=== PATIENT | female | born 1970 | race Caucasian/White ===

== ENCOUNTER → 2017-09-25 11:56 | Outpatient (CLI) | payer OTHER, SELFPAY ==
--- NOTE | 2017-09-25 12:00 | HPBI_ITS ---
MAMMOGRAPHY - BILATERAL SCREENING REASON FOR EXAM: Female, 46 years old. Routine annual screening examination. PERTINENT HISTORY: Non-contributory. TECHNIQUE: Digital bilateral breast emeterio (3D mammographic acquisition) in the CC and MLO projections. 2-D mediolateral oblique (MLO) and craniocaudad (CC) views of both breasts were obtained. CAD: Full Field Digital Mammography with Computer Added Detection was performed. COMPARISON: Comparison is made with prior study dated April 10, 2016 and October 26, 2014. FINDINGS: Breast Composition: There are scattered areas of fibroglandular density. There are no dominant masses or suspicious calcifications. Stable benign-appearing bilateral axillary lymph nodes. A tissue clip marker is seen in the deep mid medial portion of the left breast. No other significant abnormalities are identified. There has been no significant change since the prior study. HPBI/SCREENING MAMM (CAD), BILAT IMPRESSION: Stable bilateral screening mammogram. Yearly follow-up mammogram recommended. (A) ASSESSMENT CATEGORY: BIRADS Category 2: Benign. A letter regarding these results will be sent to the patient by the facility within 30 days. Approximately 10% of breast cancers are not detected by mammography. A normal mammogram should not delay biopsy of a clinically suspicious abnormality. [id number] Electronically Signed: Geoff Andrew MD at 13:48 EST Tel [phone], Service support ,
== END ==
PROVIDERS: Family Provider Nurse Practitioner; PCP Nurse Practitioner; Visit Provider Nurse Practitioner
DX: Z12.31 Encounter for screening mammogram for malignant neoplasm of breast (principal)
CPT/HCPCS: 77063; 77067

== ENCOUNTER → 2018-06-16 11:50 | Outpatient (CLI) | payer OTHER, SELFPAY ==
[2018-06-22 15:38] LABS: HPV Reflexed? NOT INDICATED
== END ==
PROVIDERS: Family Provider Nurse Practitioner; PCP Nurse Practitioner; Referring Provider Nurse Practitioner; Visit Provider Nurse Practitioner
DX: Z01.419 Encounter for gynecological examination (general) (routine) without abnormal findings (principal)
CPT/HCPCS: 88175; G0145

== ENCOUNTER → 2018-11-17 | Outpatient (CLI) | payer OTHER, SELFPAY ==
[2017-01-23 00:36] VITALS: BMI 28.8
--- NOTE | 2018-11-17 15:27 | RAD_ITS ---
STUDY: X-RAY - RIGHT SHOULDER REASON FOR EXAM: Female, 48 years old. Pain, no known injury. TECHNIQUE: 3 view(s) of the shoulder. COMPARISON: None. FINDINGS: Normal glenohumeral articulation. Normal acromioclavicular joint. Normal acromion. Normal humeral head and visualized proximal humerus. The soft tissue structures are unremarkable. Normal visualized pulmonary apex. RAD/Shoulder min 2 Views IMPRESSION: Normal x-ray examination of the shoulder. Recommendation: If internal derangement is clinically suspected, recommend evaluation with MRI. Electronically Signed: Conrado Grant MD at 16:17 EDT , Service support ,
== END | disposition home or self-care (01) ==
LOC: HPRAD 15:27
PROVIDERS: Family Provider Nurse Practitioner; PCP Nurse Practitioner; Referring Provider Orthopaedic Surgery; Visit Provider Orthopaedic Surgery
DX: M25.511 Pain in right shoulder (principal)
CPT/HCPCS: 73030; 73130

== ENCOUNTER → 2018-11-17 | Outpatient (CLI) | payer OTHER, SELFPAY ==
[2017-01-23 00:36] VITALS: BMI 28.8
--- NOTE | 2018-11-17 15:25 | RAD_ITS ---
STUDY: X-RAY - RIGHT HAND REASON FOR EXAM: Numbness over the third through fifth digits, no specific injury. TECHNIQUE: 3 view(s) of the hand. COMPARISON: None. FINDINGS: Normal radiocarpal articulation. Normal distal radioulnar joint. Normal visualized carpal bones. Normal carpal articulations Normal carpometacarpal articulation of the thumb. Normal second through fifth carpometacarpal joints. Normal metacarpi. Normal metacarpophalangeal joint of the thumb. Normal interphalangeal joint of the thumb. Normal proximal and distal phalanges of the thumb. Normal metacarpophalangeal joints of the second through fifth fingers. There are marginal osteophytes and moderate joint space narrowing of the fifth distal interphalangeal joint. Normal phalanges of the second through fifth fingers. There are small soft tissue calcifications at the ulnar aspect of the second metacarpal head and at the dorsal aspect of the third metacarpal neck. 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 Electronically Signed: Renard Domingo MD at 16:01 EDT Tel , Service support ,
== END | disposition home or self-care (01) ==
LOC: HPRAD 15:24
PROVIDERS: Family Provider Nurse Practitioner; PCP Nurse Practitioner; Referring Provider Orthopaedic Surgery; Visit Provider Orthopaedic Surgery
DX: R20.0 Anesthesia of skin (principal)
CPT/HCPCS: 73130

== ENCOUNTER → 2018-11-26 | Outpatient (CLI) | payer OTHER, SELFPAY | END | disposition home or self-care (01) | LOC: US 09:51 | PROVIDERS: Family Provider Nurse Practitioner; PCP Nurse Practitioner; Referring Provider Orthopaedic Surgery; Visit Provider Orthopaedic Surgery | DX: R20.0 Anesthesia of skin (principal); G56.21 Lesion of ulnar nerve, right upper limb ==

== ENCOUNTER → 2019-02-15 | Outpatient (CLI) | payer OTHER, SELFPAY ==
--- NOTE | 2019-02-15 10:22 | MRI_ITS ---
HISTORY: Right arm radiculopathy 4 months COMPARISON: None. TECHNIQUE: Multisequence multiplanar MR imaging of the cervical spine was performed per department protocol without IV gadolinium. # of images incl. paperwork: [id number] FINDINGS: VERTEBRA: Straightening of the cervical spine. No acute fracture or subluxation. Vertebral body heights are normal. Moderate anterior marginal osteophytes at C4, C5, C6 levels and mild anterior spurring at C7. Mild discogenic posterior osteophytosis C4-C5, C5-C6 and to a lesser degree C6-C7 levels. Moderate discogenic endplate marrow changes at the C4-C5 level. No focal marrow signal abnormality is seen to suggest a pathologic process. The visualized posterior fossa is normal in signal. CORD: Cervicomedullary junction and cervical cord are normal in caliber, morphology, and signal characteristics. DISCS: Moderate disc space narrowing C4-C5, C5-C6, C6-C7 levels with disc desiccation. Depression LEVELS: C2-3: No disc bulges, disc protrusions, canal stenosis or neural foraminal stenosis. C3-4: Mild posterior disc bulge without significant effacement of the ventral thecal sac. No superimposed disc protrusion. No canal or foraminal stenosis. C4-5: 2 mm asymmetric to the right broad based disc osteophyte complex resulting in mild canal stenosis. No neural foraminal stenosis. C5-6: Combination of a 2-3 mm broad-based asymmetric to the right discussed fact complex combined with moderate hypertrophic changes of the right uncovertebral joint results in mild canal stenosis and severe right foraminal stenosis. No left foraminal stenosis. C6-7: There is a 2 mm broad-based disc protrusion versus disc osteophyte complex resulting in mild canal stenosis. No neural foraminal stenosis. C7-T1: No disc bulges, disc protrusions, canal stenosis or neural foraminal stenosis. SOFT TISSUES: Paravertebral soft tissues show no gross signal abnormalities. MRI/Spine Cervical (Routine) IMPRESSION: 1. Mild canal stenosis and severe right foraminal stenosis at C5-C6. 2. Mild canal stenosis at C4-C5 and C6-C7 levels. at 1314 Reported and signed by: Noam Robles MD Electronically Signed: Noam Robles MD at 13:12 EDT Tel , Service support ,
== END | disposition home or self-care (01) ==
PROVIDERS: Family Provider Nurse Practitioner; PCP Nurse Practitioner; Referring Provider Psychiatry & Neurology Neurology; Visit Provider Psychiatry & Neurology Neurology
DX: M54.12 Radiculopathy, cervical region (principal)
CPT/HCPCS: 72141

== ENCOUNTER 2019-04-05 14:00 | Outpatient (RCR) | payer OTHER, SELFPAY ==
--- NOTE | 2019-03-23 14:02 | HP.PTEVAL ---
Patient's Visit Information DOMINGO GARCIA is a 48 year old F referred to Physical Therapy by NADYA Wilks with a diagnosis of CERVICAL STENOSIS/YARY UE NUMBNESS AND TINGLING. Date of Evaluation: 03/23/19 Physical Therapist: Cynthia Lisa PT, Cert MDT - Visit Plan Frequency: 2-3x /Week Duration: 4-6 Weeks Plan: CERVICAL STM. CERVICAL MANUAL AND/OR MECHANICAL TX INDICATED. MODALITIES NEEDED. POSTURE CORRECTION/STRENGTHENING, INSTRUCTION IN APPROPRIATE BODY MECHANICS AND ACTIVITY MODIFICATIONS. YARY UE ROM, STRETCHING AND STRENGTHENING. HEP INSTRUCTION. - Subjective Findings: Diagnosis: CERVICAL STENOSIS, RIGHT HAND NUMBNESS AND TINGLING LAST 3 DIGITS, NUMBNESS LEFT FOREARM, AND RIGHT HAND GRASP WEAKNESS. Work/Leisure: UNEMPLOYEED. Disability: NO. Present symptoms: NECK PAIN, RIGHT FINGER NUMBESS LAST 3 DIGITS, LEFT FOREARM NUMBNESS. Present since: AT LEAST 5 YEARS OF NECK PAIN AND STIFFNESS. Pain Scale: Worst - 4/10 Least - 1/10. Currently: 08/06. Commenced as a result of: NO APPARENT REASON. Symptoms at onset: NECK. RIGHT FINGERS STARTED TO GO NUMB IN SEPTEMBER THEN LEFT FOREARM NUMBNESS STARTED IN DECEMBER. Worse: LYING ON RIGHT SIDE PROVOKES RIGHT HAND NUMBNESS AND TINLGING. Better: NOTHING. Disturbed sleep: YES. Previous history/Previous treatment: NONE. RECENTLY REFERRED TO DR. CARTER. NO NECK SURGEON CONSULT. NO PAIN MGMT. NO INJECTIONS. RECENTLY STARTED NEUROTIN. SURGERY CONSULT WAS OFFERED BUT PATIENT DECLINED AT THIS TIME. Dizziness: NO. Tinnitis: NO. Nausea: NO. Shortness of Breath: NO. Difficulty Swollowing: NO. Gait: NORMAL. Accidents: NO. Unexplained weight loss: NO. Imaging: RECENT NECK X-RAYS AND MRI - SEVERE NARROWING ON RIGHT SIDE. SEE [facility] EMR FOR COMPLETE REPORT. YARY UE NCT NOVEMBER 2018. PMH/Recent major surgery: *PSORIATIC ARTHRITIS* UNREPAIRED LEFT ROTATOR CUFF - REPAIRED ONCE THEN RE-TORE. RIGHT TORN BICEPT A LONG TIME AGO - UNREPAIRED. - Objective Sitting Posture/Standing Posture: POOR. Active Correction of posture: BETTER. Other Observations: INDEP GAIT AND TRANSFERS. Motor deficit: 5/5 WITH MMT'ING EXCEPT LEFT SHOULDER 4-/5, RIGHT 4/5. LEFT BUNDLE TIER AND LABELER 50 LBS AND RIGHT 55 LBS. RIGHT HAND DOMINANT. Sensory deficit: DECREASED LEFT MEDIAL FOREARM AND RIGHT DIGITS 3, 4 AND 5 LIGHT TOUCH. ROM deficit: YARY UE'S WFL. Reflexes: UNABLE TO ELICIT YARY UE'S. Dural Signs: POSITIVE YARY UE'S. Cervical Mvmt Loss: Flex: NIL. Pro: NIL. Ext: MOD. Ret: JAZMIN. RSB: MOD. LSB: MOD. R Rot: MIN. L Rot: MOD. DECREASED UE SX'S WITH NECK EXT AND INCREASED WITH NECK FLEXION. Postural strength: POOR. Palpation: NO ACUTE CERVICAL OR THORACIC TENDERNESS BUT INCREASED MUSCLE TONE AND MULTIPLE TRIGGER POINTS. OTHER: CERVICAL DISTRACTION TESTING IN SITTING DECREASES RIGHT FINGER NUMBNESS. - Goals Goal 1:: DECREASE C/O NECK AND YARY UE SX'S. Goal Time Frame: 4-6 Weeks Goal 2:: IMPROVE LIFTING, SLEEP, DRIVING, RECREATIONAL AND HOUSEWORK FUNCTION Goal Time Frame: 4-6 Weeks Goal 3:: INSTRUCT IN PROPHYLAXIS - Rehabilitation Potential Rehabilitation Potential: Fair - Anticipated Interventions Patient/Client Instruction: Educate patient on: Condition, Plan of Care, Risk Factors, Benefits of Fitness Program For the Purpose of:: To improve self management Therapeutic Exercise to Include: Strength training, Body mechanics, Postural training, Flexibilty training, Active ROM, Scapular Strength/Stabilization For the Purpose of:: To decrease pain, To increase ROM, To improve muscle performance and motor function, To increase tolerance to activity/condition/position, To improve ability of physical actions for home/community/work/leisure Manual Therapy Techniques to Include: Mobilization, Soft tissue mobilization For the Purpose of:: To decrease pain, To increase ROM, To improve nutrient delivery to tissue TENS: Yes Cryotherapy (ice pack, ice massage): Yes Thermo therapy (hot pack): Yes Ultrasound (thermal/non thermal): Yes Intermittent cervical traction: Yes For the Purpose of:: To decrease pain, To increase ROM, To improve nutrient delivery to tissue Thank you for the opportunity to evaluate your patient. For Medicare and Medicare HMO plans, please review the plan of care and approve it. It will need to be FAXED BACK to us at [phone] for Medicare purposes. For Medicare only, by signing this I certify the plan of care. Please let me know if there are questions or concerns regarding this plan of care. Physician Signature: Date:
--- NOTE | 2019-06-03 14:47 | HP.PT.NRP ---
HP - Discharge Summary (1) - Patient Information DOMINGO GARCIA was seen in my office for initial evaluation on 03/23/19. The following Plan of Care was established for this patient: Initial Frequency: 2-3x /Week Initial Duration: 4-6 Weeks - Anticipated Interventions Patient/Client Instruction: Educate patient on: Condition, Plan of Care, Risk Factors, Benefits of Fitness Program For the Purpose of:: To improve self management Therapeutic Exercise to Include: Strength training, Body mechanics, Postural training, Flexibilty training, Active ROM, Scapular Strength/Stabilization For the Purpose of:: To decrease pain, To increase ROM, To improve muscle performance and motor function, To increase tolerance to activity/condition/position, To improve ability of physical actions for home/community/work/leisure Manual Therapy Techniques to Include: Mobilization, Soft tissue mobilization For the Purpose of:: To decrease pain, To increase ROM, To improve nutrient delivery to tissue TENS: Yes Cryotherapy (ice pack, ice massage): Yes Thermo therapy (hot pack): Yes Ultrasound (thermal/non thermal): Yes Intermittent cervical traction: Yes For the Purpose of:: To decrease pain, To increase ROM, To improve nutrient delivery to tissue This patient was last seen in our office 04/05/19. Pertinent comments regarding their Physical therapy will appear below: This patient has not returned to Physical Therapy and is appropriate to return to MD for further follow-up as needed. At this point I will be discontinuing this patient from physical therapy. I would be happy to see this patient again in the future if found appropriate by the physician. Thank you! Cynthia Lisa, PT, Cert MDT
== END 2019-04-05 19:00 | disposition home or self-care (01) ==
LOC: PT 14:00
PROVIDERS: Family Provider Nurse Practitioner; PCP Nurse Practitioner; Referring Provider Nurse Practitioner Family; Visit Provider Nurse Practitioner Family
DX: M48.02 Spinal stenosis, cervical region (principal); R20.0 Anesthesia of skin; R20.2 Paresthesia of skin; R29.898 Other symptoms and signs involving the musculoskeletal system
CPT/HCPCS: 97035; 97162; 97530

== ENCOUNTER → 2019-04-20 | Outpatient (CLI) | payer OTHER, SELFPAY ==
[2019-04-20 14:01] VITALS: BMI 28.8
--- NOTE | 2019-04-20 14:04 | RAD_ITS ---
STUDY: X-RAY - CERVICAL SPINE REASON FOR EXAM: Female, 48 years old. Neck pain. TECHNIQUE: 4 view(s) of the cervical spine were obtained with flexion and extension. COMPARISON: None FINDINGS: Normal anterior atlantoaxial articulation. Normal odontoid process. Neutral view shows reversal of curvature. There is 4 mm anterolisthesis C3 on C4. Markedly limited extension with no additional subluxations. Normal flexion with persistent anterolisthesis of C3 on C4. Multilevel moderate degenerative disc disease. The soft tissue structures are unremarkable. There is no demonstrated fracture of the cervical spine. RAD/Cerv Spine 4 or 5 Views IMPRESSION: Multilevel degenerative disc disease. Anterolisthesis of C3 on C4 which is stable with flexion and extension. Electronically Signed: Zak Araiza MD at 22:36 EDT , Service support ,
== END | disposition home or self-care (01) ==
LOC: HPRAD 14:04
PROVIDERS: Family Provider Nurse Practitioner; PCP Nurse Practitioner; Referring Provider Orthopaedic Surgery; Visit Provider Orthopaedic Surgery
DX: M54.2 Cervicalgia (principal)
CPT/HCPCS: 72050

== ENCOUNTER 2019-04-26 00:52 | Emergency (ER) | payer OTHER, SELFPAY ==
[2019-04-20 14:01] VITALS: BMI 28.8
[2019-04-26 00:53] VITALS: BP 123/107; PULSE 96; RESP 16; TEMP 36.8; O2SAT 97; BMI 29.1
--- NOTE | 2019-04-26 00:57 | ED.DCSUM_ITS ---
History of Present Illness Chief Complaint: Cold Sx Informant: Patient Onset: Days Context: Gradual Onset Timing: Continuous Current Severity: Moderate Maximum Severity: Moderate Narrative: The patient presents to the emergency department with cough and shortness of breath. Patient states that she is had upper respiratory symptoms for almost a week. She went to urgent care on Friday. At that point, she was diagnosed with an upper respiratory infection. She was started on Tessalon Perles and doxycycline. She states she is been taking medications as prescribed. She states she feels like her symptoms are not improving and are getting worse. She had a persistent cough. She denies any productive sputum. She does not think she had fever, but has had some chills. The patient does have a history of psoriatic arthritis. She does get Humira injections every 2 weeks, but has not had received them recently because of her illness. She denies chest pain or orthopnea. She denies any history of underlying lung disease but does smoke. Prior similar symptoms: No Recent Illness/Hospitalization: No Past Medical History - Allergies and Home Meds Allergies/Adverse Reactions: Allergies Penicillins [PCN] Allergy (Verified 05/14/17 13:00) [facility] Primary Care Physician: Shilpa Rosales NP-C [Primary Care Provider] - Prior records reviewed: Yes Past Medical History: - - Psoriatic arthritis Surgical History: hysterectomy, tonsillectomy, - Smoking Status: Current some day smoker - Family History Maternal Family History: Reports: - - Thyroid disease. Osteoarthritis Paternal Family History: Reports: Hypertension Sibling Family History: Reports: Hypertension Review of Systems General: Reports: Chills Eyes: Denies: Visual changes - bilaterally, Diplopia ENT: Denies: Rhinorrhea, Sore throat Cardiovascular: Denies: Chest pain, Palpitations Respiratory: Reports: Dyspnea, Cough Gastrointestinal: Denies: Abdominal pain, Nausea, Vomiting, Diarrhea, Melena, Hematochezia Genitourinary: Denies: Dysuria, Hematuria, Frequency Musculoskeletal: Denies: Back pain, Extremity Pain Skin: Denies: Rash, Wounds Neurological: Denies: Headache, Weakness, Numbness Physical Exam Inital Vital Signs reviewed: Yes General: Well nourished, Well developed, No Acute Distress Head: Normocephalic, Atraumatic Eyes: Perrl, EOMI ENT: Moist mucous membranes, No rhinorrhea Neck: Supple, Nontender Cardiovascular: Regular rate, Regular rhythm, No murmurs Respiratory: No distress, Chest nontender, Wheezing, Decreased Air Movement Abdomen: Soft, Nontender, Nondistended, Normal bowel sounds Back: Nontender, Normal Inspection Extremities: Nontender, No edema Skin: Normal color, No rash Neurological: Alert, Oriented x3, Cranial nerves II-XII grossly intact, Normal Strength, Normal Sensation Psychological: Normal affect, Normal Mood Diagnostic/Tx/Re-eval Chest X-Ray - ED: 2 View, Read by ED Physician, Read by Radiologist, Normal, H eart, Lungs, Mediastinum, Bony Structures, No Infiltrates - Medical Decision Making The patient presents with cough and shortness of breath. She does have wheezing in all lung mcgrath. My suspicion is that this is more of an inflammatory process as she has already been on antibiotics with little improvement. The patient was given nebulized breathing treatments and Solu-Medrol. Chest x-ray does not show any focal infiltrative process. Screening labs were obtained were unremarkable. On reevaluation, she had resolution of her bronchospasm and is feeling markedly improved. At this point, I am going to have her finish her antibiotic course. I am going to add prednisone to her regimen. I will also add an inhaler and nebulizer. She is comfortable with this plan of care. She will be discharged home. Impression 1. Bronchitis with bronchospasm ED Disposition - Plan for ED Patient: Instructions: BRONCHITIS with Wheezing (Adult) Prescriptions: Prednisone [Deltasone] 40 mg PO DAILY #10 tab Prescription Printed Albuterol Aerosols [Ventolin Aerosols] 2.5 mg INHALATION Q4H PRN #25 vial Prescription Printed Referrals: Shilpa Rosales, LOIS-C [Primary Care Provider] -
--- NOTE | 2019-04-26 00:57 | RAD_ITS ---
STUDY: X-RAY CHEST REASON FOR EXAM: Female, 48 years old. Cough. TECHNIQUE: 2 view chest. COMPARISON: None. FINDINGS: No apparent pneumothorax, pneumonia, pleural effusion, or edema. Cardiac silhouette, zbigniew and mediastinal contours are within normal limits. No acute osseous abnormality. No evidence of free air under the diaphragm. RAD/Chest PA and Lateral IMPRESSION: Negative chest radiograph. Electronically Signed: Keshawn Robins, at 1:57 EDT Tel , Service support ,
[2019-04-26 00:59] VITALS: BP 122/90; PULSE 78; RESP 19; TEMP 36.6; O2SAT 97
[2019-04-26] MEDS: MethylPREDNISolone 125 MG/2 ML Vial IV (01:05)
[2019-04-26] MEDS: Ipratropium/Albuterol Sulfate 3 ML AMPUL.NEB INHALATION (01:05)
[2019-04-26] MEDS: 0.9% Normal Saline 1,000 ML 999 ML IV (01:05)
[2019-04-26 01:06] VITALS: PULSE 100; RESP 16
[2019-04-26] MEDS: Albuterol 2.5 MG/3 ML VIAL.NEB. INHALATION (01:10)
[2019-04-26 01:13] LABS: Absolute Lymphocyte Count 2.99 X10^3/uL (0.83-4.51); Absolute Neutrophil Count 4.5 X10^3/uL (2.0-7.7); Basophil# 0.06 X10^3/uL; Basophil% 0.7 % (0-1); Eosinophil# 0.21 X10^3/uL; Eosinophils% 2.4 % (0-5); Hematocrit 41.9 % (37-47); Hemoglobin 14.8 g/dL (12.0-15.0); Lymphocyte # 2.99 X10^3/ul (4.0); Lymphocyte % 34.6 % (19-41); Mean Corp Hgb Conc 35.3 g/dL (32-36); Mean Corpuscular Hgb 33.5 pg (27.0-32.0); Mean Corpuscular Volume 94.8 fL (81-99); Mean Platelet Vol. 9.3 fl (6.2-12.0); Monocyte# 0.82 X10^3/uL; Monocyte% 9.5 % (0-10); NRBC Flagged by Analyzer 0 % (0-5); Neutrophil # 4.53 X10^3/uL (2.7-7.7); Neutrophil % 52.3 % (47-70); Platelet Count 283 K/mm3 (150-450); RBC Distribution Width CV 11.9 % (11.6-14.6); Red Blood Count 4.42 M/mm3 (4.2-5.4); White Blood Count 8.7 K/mm3 (4.4-11.0)
[2019-04-26 01:23] LABS: Anion Gap 10 (5-15); BUN 13 mg/dL (7-18); BUN/Creat Ratio 17.7 RATIO (10-20); Calcium,Total 8.9 mg/dL (8.5-10.1); Chloride 104 mmol/L (98-107); Creatinine, Serum 0.74 mg/dL (0.55-1.02); EST Glomerular Filtration Rate 89 mL/min (>60); Est Glom Filt Rate - Afr Amer 108 mL/min (>60); Estimated Creatinine Clearance 96.11 ml/min; Glucose 98 mg/dL (74-106); Potassium 3.9 mmol/L (3.5-5.1); Sodium Level 135 mmol/L (136-145)
[2019-04-26 01:55] VITALS: PULSE 96; RESP 18; TEMP 36.6; O2SAT 95
== END 2019-04-26 02:08 | disposition home or self-care (01) ==
LOC: ED 01:02
PROVIDERS: Emergency Provider Emergency Medicine; Family Provider Nurse Practitioner; PCP Nurse Practitioner
DX: J20.9 Acute bronchitis, unspecified (principal); L40.50 Arthropathic psoriasis, unspecified; F17.200 Nicotine dependence, unspecified, uncomplicated; Z79.899 Other long term (current) drug therapy
CPT/HCPCS: 71046; 80048; 85025; 94640; 96361; 96374; 99284; J7030; A4216

== ENCOUNTER → 2020-03-20 | Outpatient (CLI) | payer OTHER, SELFPAY ==
--- NOTE | 2020-03-20 12:41 | BI_ITS ---
MAMMOGRAPHY - BILATERAL SCREENING REASON FOR EXAM: Female, 49 years old. Routine annual screening examination. PERTINENT HISTORY: Non-contributory. Remote left breast needle biopsy. TECHNIQUE: Digital bilateral breast chintan (3D mammographic acquisition) in the CC and MLO projections. 2-D mediolateral oblique (MLO) and craniocaudad (CC) views of both breasts were obtained. CAD: Full Field Digital Mammography with Computer Added Detection was performed. COMPARISON: Comparison is made with prior study dated 09/25/2017 and 04/10/2016. FINDINGS: Breast Composition: There are scattered areas of fibroglandular density. There are no dominant masses or suspicious calcifications. Stable benign-appearing bilateral axillary lymph nodes. A tissue clip marker is once again seen in the deep mid medial portion of the left breast. No other significant abnormalities are identified. There has been no significant change since the prior study. BI/SCREEN MAMM (CAD) W/CHINTAN BILAT IMPRESSION: Stable bilateral screening mammogram. Yearly follow-up mammogram recommended. (A) ASSESSMENT CATEGORY: BIRADS Category 2: Benign. A letter regarding these results will be sent to the patient by the facility within 30 days. Approximately 10% of breast cancers are not detected by mammography. A normal mammogram should not delay biopsy of a clinically suspicious abnormality. [id number] Electronically Signed: Geoff Andrew, at 13:54 EDT , Service support ,
== END | disposition home or self-care (01) ==
LOC: OPBI 12:39
PROVIDERS: PCP Nurse Practitioner; Referring Provider Nurse Practitioner; Visit Provider Nurse Practitioner
DX: Z12.31 Encounter for screening mammogram for malignant neoplasm of breast (principal)
CPT/HCPCS: 77063; 77067

== ENCOUNTER → 2021-03-20 09:44 | Outpatient (CLI) | payer OTHER, SELFPAY ==
--- NOTE | 2021-03-20 09:46 | US_ITS ---
STUDY: ABDOMINAL ULTRASOUND - RIGHT UPPER QUADRANT REASON FOR VISIT: Female, 50 years old ELEVATED LIVER ENZYMES TECHNIQUE: Ultrasound evaluation of the right upper quadrant was performed with real-time and static rodriguez-scale imaging. TECHNICAL QUALITY: Adequate. COMPARISON: None. FINDINGS: Liver: The liver measures 15.9 cm. There is increased echogenicity consistent with fatty infiltration. The bile ducts are within normal limits. There is hepatic color flow. The direction of portal flow is hepatopetal. There is no demonstrated mass lesion. Gallbladder: Normal distended gallbladder. The gallbladder wall measures 3 mm. There is a negative sonographic Cruz''s sign. There is no pericholecystic fluid. There are no gallstones. Sludge is seen within the gallbladder lumen. Common Bile Duct (C.B.D.): The common bile duct measures 4 mm. Pancreas: Normal size of the head, body and tail of the pancreas. There is increased echogenicity of the pancreas. There is no demonstrated pancreatic mass or cyst. Right Kidney: Normal size of the right kidney. The right kidney measures 10.2 cm x 4.5 cm x 4.6 cm. Normal renal cortex. The right cortex measures 1.3 cm. There is no demonstrated renal mass or cyst. There is no right hydronephrosis. US/Liver IMPRESSION: Fatty infiltration of the liver. Small amount of sludge is seen within the gallbladder lumen. Electronically Signed: Geoff Andrew MD at 11:05 EDT , Service support ,
== END ==
PROVIDERS: PCP Nurse Practitioner; Referring Provider Nurse Practitioner; Visit Provider Nurse Practitioner
DX: R74.8 Abnormal levels of other serum enzymes (principal)
CPT/HCPCS: 76705

== ENCOUNTER → 2021-04-03 12:48 | Outpatient (CLI) | payer OTHER, SELFPAY ==
--- NOTE | 2021-04-03 12:52 | BI_ITS ---
MAMMOGRAPHY - BILATERAL SCREENING REASON FOR EXAM: Female, 50 years old. Routine annual screening examination. PERTINENT HISTORY: Non-contributory. Remote left needle breast biopsy. TECHNIQUE: Digital bilateral breast chintan (3D mammographic acquisition) in the CC and MLO projections. 2-D mediolateral oblique (MLO) and craniocaudad (CC) views of both breasts were obtained. CAD: Full Field Digital Mammography with Computer Added Detection was performed. COMPARISON: Comparison is made with prior examination in 03/20/2020 and 09/25/2017. FINDINGS: Breast Composition: There are scattered areas of fibroglandular density. There are no dominant masses or suspicious calcifications. Stable benign-appearing bilateral axillary lymph nodes. No other significant abnormalities are identified. There has been no significant change since the prior study. BI/SCRN MAMM (CAD)W/CHINTAN BILAT IMPRESSION: Stable bilateral screening mammogram. Yearly follow-up mammogram recommended. (A) ASSESSMENT CATEGORY: BIRADS Category 2: Benign. A letter regarding these results will be sent to the patient by the facility within 30 days. Approximately 10% of breast cancers are not detected by mammography. A normal mammogram should not delay biopsy of a clinically suspicious abnormality. [id number] Electronically Signed: Geoff Andrew MD at 13:57 EDT , Service support ,
== END ==
PROVIDERS: PCP Nurse Practitioner; Referring Provider Nurse Practitioner; Visit Provider Nurse Practitioner
DX: Z12.31 Encounter for screening mammogram for malignant neoplasm of breast (principal)
CPT/HCPCS: 77063; 77067

== ENCOUNTER 2021-05-15 10:14 | Day surgery (SDC) | payer OTHER, SELFPAY ==
--- NOTE | 2021-05-07 08:10 | PCM.HP.BLA ---
History and Physical Date of Admission: 05/08/21 HISTORY AND PHYSICAL ? Cammie Bhat 1970 ? REFERRING PHYSICIAN: Shilpa Rosales CNP ? CHIEF COMPLAINT: abdominal pain ? HPI: The patient is a 50 year old female presents with chronic intermittent emesis and abnormal findings on gallbladder ultrasound. SHe notes epigastric and RUQ abdominal pain She denies fevers. She denies nausea prior to emesis. She states that she would have several episodes of emesis in a week. She would sometimes note throat burning and tightening and then would have an episode of emesis. Episodes are not related to meals or activity, it could occur any time of the day. She also notes fecal urgency after eating meals. Emesis would be solid food and/or liquid. She denies difficulties in swallowing. She denies blood in emesis. She denies heartburn and acid indigestion. She denies abdominal bloating. She states that she feels OK after emesis. RUQ US 03/20/2021 - gallbladder wall measures 3mm. There is a negative sonographic Cruz's signs. There is no pericholecystic fluid. There are no gallstones. Sludge is seen within the gallbladder lumen ? PAST MEDICAL HISTORY ? Migraine ? ? Psoriasis ? ? Psoriatic arthritis (HCC) ? PAST SURGICAL HISTORY ? FOOT SURGERY HX Left ? ? bone removed from foot ? HYSTERECTOMY HX ? ? ? adenomyosis, with right oophorectomy ? TONSILLECTOMY HX ? ? ? Current Outpatient Medications STELARA 45 mg/0.5 mL sub-Q syringe ? DESVENLAFAXINE SUCCINATE (PRISTIQ ORAL) Take by mouth. topiramate (TOPAMAX) 25 mg tablet Take 50 mg by mouth once daily. ADALIMUMAB (HUMIRA PEN SUBCUTANEOUS) Inject subcutaneously. (Patient not taking: Reported on 03/30/2021 ALLERGIES: Penicillins ? PERSONAL HISTORY: ? Smoking status: Former Smoker ? ? Packs/day: 0.50 ? ? Years: 5.00 ? ? Pack years: 2.50 ? ? Types: Cigarettes ? ? Quit date: 10/04/1995 ? ? Years since quittin.5 ? Smokeless tobacco: Never Used Vaping Use ? Vaping Use: Never used Substance Use Topics ? Alcohol use: Yes ? ? Comment: social ? Drug use: Never FAMILY HISTORY Hyperlipidemia Mother ? Fibromyalgia Mother ? Heart disease Mother ? Prostate Cancer Father ? Arthritis Father ? Heart disease Sister ? Fibromyalgia Sister ? Hyperlipidemia Sister ? Hypertension Sister ? Hyperlipidemia Brother ? Hypertension Brother ? ? REVIEW OF SYSTEMS: General: The patient denies fatigue, denies weight loss, denies weight gain, denies feeling hot, and denies feelings of cold. Eyes: The patient denies glaucoma, denies eye injury/surgery, does not wear glasses or contacts. Ear/Nose/Throat: The patient denies allergies, denies hayfever, denies ear infections, and denies bloody noses. Cardiovascular: The patient denies chest pain, denies heart disease, denies high blood pressure,denies cardiac stent, denies prior heart attack, denies irregular heart beat, notes high cholesterol, denies poor circulation, denies heart failure, other cardiac issues, denies claudication, denies cold feet, denies peripheral arterial stent. Respiratory: The patient denies tuberculosis, denies pneumonia, denies frequent cough, denies pulmonary embolism, denies shortness of breath, and denies coughing up blood. Gastrointestinal: See HPI. Kidney/Bladder: The patient denies kidney stones, denies urine infections, and denies bloody urine. Skin: The patient denies a history of skin cancer, denies bleeding/changing moles, and denies a history of skin rash. Neurologic: The patient denies a history of epilepsy/convulsions, denies headaches, denies head/spinal injuries, and denies stroke/TIA. Psychiatric: The patient denies psychiatric medications, denies depression, and denies voices, denies substance abuse. Endocrine: The patient denies thyroid disorders, denies diabetes, and denies hormonal problems. Hematologic: The patient denies a history of bruising, denies bleeding, and denies anemia, denies blood clots. Infections: The patient denies a history of measles and mumps, notes rheumatic fever, and denies sexually transmitted diseases. Musculoskeletal: The patient denies back pain/injury, denies back problems, denies sciatica, denies knee/foot trouble, denies arthritis, or denies gout. When was patient's last Mammogram screening? 02/2020 Last Colonoscopy: Unknown Cammie Hewitt RN PHYSICAL EXAMINATION: General: The patient is 50 year old female, well nourished, well hydrated in no acute distress. The patient is oriented to time, place, and person. VITALS: Blood pressure 124/88, pulse 115, temperature 36.6 ?C (97.8 ?F), height 172.7 cm (5' 8), weight 86.6 kg (191 lb), SpO2 98 %. Body mass index is 29.04 kg/m?. Head ? Normocephalic. EOM intact with sclera clear and no icterus noted. Neck - supple with no jugular venous distention noted. Trachea is midline. Lungs ? clear to auscultation. Normal breath sounds. No rales/rhonchi/wheezing noted. No labored breathing noted, such as retractions. No cough heard. Heart ? normal S1 and S2 auscultated. No rubs/clicks/murmurs noted. Regular rate. Abdomen ? soft and benign. Normal bowel sounds. Extremities ? no calf tenderness noted. No pitting edema noted. Skin ? normal skin integrity. Neurological ? gait normal, no focal deficits noted. Psych ? calm and appropriate ? RADIOLOGIC STUDIES: As Noted ? IMPRESSION: chronic intermittent emesis, abnormal gallbladder ultrasound ? PLAN: I have discussed the above with the patient. I have offered the patient the procedure of laparoscopic cholecystectomy, possible cholangiograms. I have explained the procedure to the patient. I have counseled the patient as to the risks of the procedure, including but not limited to: infection, bleeding, injury to any blood vessels/nerves, scar tissue, injury to any intraabdominal organs, injury to kidney/ureters, injury to bowel/bladder, injury to the common bile duct/biliary tree, bile leakage, intraabdominal abscess/bleeding, hernias at incisional sites, wound infections, possible open procedure, complications of anesthesia, postoperative pneumonia/cardiac problems/blood clots etc. the patient understands. I have answered all questions to the patient?s satisfaction and the patient has no further questions. Diagnoses: (R11.11) Vomiting without nausea, intractability of vomiting not specified, unspecified vomiting type (primary encounter diagnosis) (R93.2) Abnormal gallbladder ultrasound ?? Nasra Sandhu MD
--- NOTE | 2021-05-14 13:01 | EKG12_ITS ---
Test Reason : PRE OP Blood Pressure : / mmHG Vent. Rate : 104 BPM Atrial Rate : 104 BPM P-R Int : 144 ms QRS Dur : 080 ms QT Int : 344 ms P-R-T Axes : 061 -51 040 degrees QTc Int : 452 ms Sinus tachycardia Left anterior fascicular block Abnormal ECG Confirmed by MILLICENT GRAHAM, MOISÉS ([id number]), deputy editor in chief ATILIO ESCOBEDO ([id number]) on 05/15/2021 9:27:07 AM Referred By: Nasra Sandhu Confirmed By:MOISÉS RICKS MD
[2021-05-14 13:14] LABS: Hematocrit 49.7 % (37-47); Hemoglobin 16.9 g/dL (12.0-15.0); Mean Corpuscular Hgb 32.3 pg (27.0-32.0); Mean Corpuscular Volume 94.8 fL (81-99); Mean Platelet Vol. 9.1 fl (6.2-12.0); Platelet Count 270 K/mm3 (150-450); RBC Distribution Width CV 12.4 % (11.6-14.6); RBC Distribution Width SD 43.3 fl (35.1-43.9); Red Blood Count 5.24 M/mm3 (4.2-5.4); White Blood Count 4.8 K/mm3 (4.4-11.0)
[2021-05-14 13:29] LABS: Partial Thromboplast Time 28.5 Seconds (24.1-36.2); Prothrombin Time (Protime)PT. 12.7 SECONDS (11.7-14.9)
[2021-05-14 13:47] LABS: AST(SGOT) 47 U/L (15-37); Alanine Aminotransfer ALT/SGPT 49 U/L (13-56); Albumin, Serum 3.2 g/dL (3.2-5.0); Alkaline Phosphatase 112 U/L (45-117); Bilirubin, Direct 0.15 mg/dL (0.00-0.30); Globulin 5.6 g/dL (2.2-4.2); Protein, Total 8.8 g/dL (6.4-8.2)
[2021-05-15] VITALS (10 sets, daily range): BP systolic 117–134; BP diastolic 59–96; PULSE 60–88; RESP 16–18; TEMP 36–36.6; O2SAT 85–98; BMI 27.2
[2021-05-15] MEDS: Lactated Ringers 1,000 ML 75 ML IV ×2 (10:46→13:00)
--- NOTE | 2021-05-15 11:45 | GALL_PTH ---
PATIENT: DOMINGO GARCIA LOC[place] [facility] [place][id number] AGE/SX: 50/F ROOM: RE05/15/[address]: Dr. Nasra Sandhu MD : 1970 BED: DIS: 05/15/2021 SPEC #: [id number] RECD: 05/15/21 14:46 STATUS: SAMUEL REAdriana #: [id number] SONA: 05/15/21 11:[address]: Nasra Sandhu DEPT: SURGICAL PATHOLOGY RECD BY: Gerda Holbrook ENTERED: 05/16/21 11:10 SP TYPE: JULISA MIRELES DR: MD Shilpa Claire, RN SURGERY ICU-C Tissues: Gallbladder, NOS Procedures: Surgery Specimen Level III HEADER OPERATION: Laparoscopic cholecystectomy PRE-OP DIAGNOSIS: Chronic intermittent emesis, abnormal gallbladder ultrasound TISSUE SUBMITTED: Gallbladder MICROSCOPIC DIAGNOSIS Gallbladder, cholecystectomy: Mild chronic cholecystitis. AM:clara 05/17/2021 MICROSCOPIC DESCRIPTION Slides are reviewed. GROSS DESCRIPTION Received is one container labeled with the patient's name and designated gallbladder. The specimen consists of a gallbladder measuring 8.7 x 4 x 2.8 cm. The external surface is smooth and glistening. Focally, it is granular, hemorrhagic and contains cautery artifact. The lumen of the gallbladder contains green mucoid bile and no calculi. The mucosa is bile-stained and without any mass lesions. The gallbladder wall averages 0.1 cm in thickness and is free of mass lesions. Chronometer Repairer sections of the gallbladder and the cystic duct at margin of resection are submitted in one cassette. / AM:clara 05/16/21 TC:3 CPT: 52174
--- NOTE | 2021-05-15 12:44 | EX.PCM.DISCH ---
Discharge Instructions Follow Up Care Test Results: Test results from this visit will be discussed in further detail at your follow-up appointment, if applicable. Discharge Plan Admission Attending Provider: Nasra Sandhu Primary Care Provider: Shilpa Rosales NP Consulting Providers: Az Miller Instructions Additional Instructions / Restrictions: Recommended pain control regimen - May take 600 mg ibuprofen (Motrin) and then in 3-4 hours, may take 650 mg acetaminophen (Tylenol), then in 3-4 hours may take 600 mg ibuprofen, then in 3-4 hours may take 650 mg acetaminophen and so on for 2-3 days May take narcotic pain medication for pain that is not controlled by above and at night for comfort through the night Leave dressings in place May shower, do not scrub in the areas of the dressings as they may unravel. Do not soak - no tub baths/swimming Ice applied to areas of discomfort may help No lifting/pushing/pulling greater than 20 pounds for two weeks. Regular diet as tolerated, drink plenty of fluids. Avoid carbonated beverages for a few days as this will cause abdominal bloating and thus discomfort after our surgery. Please call my office for an appointment to see me in 1-2 weeks. Office number is If any questions, please call my office at and ask the wash oil pump operator for the general surgery nurses desk Discharge Orders/Prescriptions Prescriptions: New oxycodone 5 mg capsule 5 mg PO Q8H PRN (Reason: pain) 5 Days Qty: 14 RF: 0 No Action rizatriptan [Maxalt] 10 mg tablet 10 mg PO PRN PRN (Reason: MIGRAINES) RF: 0 topiramate 50 mg tablet 75 mg PO QHS RF: 0 desvenlafaxine succinate 25 MG tablet extended release 24 hr 50 mg PO QHS RF: 0 Stelara 45 mg/0.5 mL Solution 45 mg SUBCUT .Q3MO RF: 0 Referrals / Follow Up: Shilpa Rosales NP, INSURANCE RISK ANALYST-C [Primary Care Provider] - Disposition Disposition (needs filled in before D/C Order can be placed): Home, Self Care
[2021-05-15] MEDS: Bupivacaine 0.25% 30 ML Vial (12:55)
--- NOTE | 2021-05-15 13:10 | RAD_ITS ---
STUDY: LAPAROSCOPIC CHOLECYSTECTOMY. REASON FOR EXAM: Female, 50 years old. LAP ANALI FLUOROSCOPY TIME (if supplied): ( 2.6 seconds ) minutes/seconds. One image was submitted. TECHNIQUE: An intraoperative cholangiogram was performed by the surgeon. Imaging was submitted. COMPARISON: None. FINDINGS: The common bile duct is not dilated. No intraluminal filling defect is seen. There is free flow of contrast into the duodenum. RAD/Cholangiogram/ O R,Initial IMPRESSION: Unremarkable intraoperative cholangiogram. Electronically Signed: Geoff Andrew MD at 14:31 EDT , Service support ,
--- NOTE | 2021-05-15 13:36 | PCM.OPRPT ---
Report of Operation Date of Procedure: 05/15/21 Pre-Operative Diagnosis: abnormal gallbladder ultrasound, nausea and emesis Post-Operative Diagnosis: same Surgery/Procedure Performed:: laparoscopic cholecystectomy with cholangiograms Description of Surgical Findings:: probable chronic cholecystitis Surgeon: Nasra Sandhu thermodynamics teacher: Casey Trejo Type of Anesthesia: General Anesthesiologist: Ben Gerber Specimen's removed: gallbladder and contents Estimated Blood Loss (mL): < 10 ml Fluids Replaced: 1600 ml RL Description of Procedure: After informed consent was given, the patient was brought to the Operating Room. Appropriate time out protocol was followed. The patient was placed in the supine position. The patient was then placed under general endotracheal anesthesia by the anesthesia provider. The abdomen was then prepped with a sterile surgical skin preparation and sterile surgical drapes were placed. The infraumbilical skin fold was grasped with penetrating clamps and the skin and subcutaneous tissues were infiltrated with 0.25% marcaine with epinephrine. A skin incision was then made with a 15 blade scalpel. The anterior abdominal wall was elevated and a Veress needle was carefully inserted into the intraabdominal cavity. It was checked to be in the proper position with a normal saline drop test. A CO2 pneumoperitoneum was then created. Once this was achieved, then the Veress needle was removed and an 11mm trocar was placed in its stead. A 10mm laparoscope was then inserted into the trocar and careful attention was directed to the intraabdominal contents. There was no evidence of injury to any intraabdominal organs from insertion of the Veress needle or the trocar. Under direct visualization, a 5mm subxiphoid trocar and two lateral 5mm right subcostal trocars were placed. The skin and subcutaneous tissues at these sites were infiltrated with 0.25% marcaine with epinephrine prior to placement of these trocars. Attention was then directed to the right upper quadrant of the abdomen. Graspers were placed in the lateral trocars to grasp the distal aspect of the gallbladder and direct it cephalad and to grasp the gallbladder at Velasquez?s pouch and direct it laterally. Dissection then began on the proximal gallbladder continuing down to the area of the triangle of Calot to bluntly dissect out the cystic duct. The neck of the gallbladder was identified and blunt dissection continued to dissect out a segment of the cystic duct. A clip was then placed on the neck of the gallbladder. A small ductotomy was then made. A Ranfac catheter was brought in through a separate skin incision and placed into the cystic duct. An intraoperative cholangiogram was performed under fluoroscopy. The xray revealed no lesions in the common bile duct, arborization of the biliary tree, and good flow into the duodenum. The Ranfac catheter was then removed and two clips were placed proximal to the ductotomy and the cystic duct was then transected. The cystic artery was visualized and bluntly isolated and then two clips were placed proximally and one clip distally and then it was transected between the proximal and distal clips. The gallbladder was then from the liver bed using electrocautery. Once from the liver bed, it was brought out via the umbilical port in an Endobag. It was then forwarded to pathology for analysis. The liver bed was carefully examined. There was no evidence of bile leakage or bleeding. The cystic duct stump and cystic artery stump had their clips intact and there was no evidence of bile leakage or bleeding. The remainder of the abdomen was grossly normal. The CO2 was released and all trocars removed intact. The periumbilical fascia was approximated with a [id number] 0 vicryl suture. All skin incision were closed with 4-0 monocryl in a subdermal fashion. Cavilol and Steristrips were used to reinforce the skin closure. Sterile dressings were applied to all wounds. Sponge, needle and instrument count was verified and correct at time of skin closure. The patient was extubated and brought to the Recovery Room in stable condition. Complications none noted Admit VTE Documentation VTE Present on Admission: Yes VTE Mechan Device Prophylaxis: SCD's
[2021-05-15] MEDS: oxyCODONE 5 MG Tablet PO (16:07)
== END 2021-05-15 16:30 | disposition home or self-care (01) ==
LOC: SDC 10:15 → AC 10:15
PROVIDERS: Anesthesiology; PCP Nurse Practitioner; Referring Provider Surgery; Visit Provider Surgery
PROC: (CPT 47610; principal; 2021-05-15 11:25)
DX: K81.1 Chronic cholecystitis (principal); L40.50 Arthropathic psoriasis, unspecified; G43.909 Migraine, unspecified, not intractable, without status migrainosus; D64.9 Anemia, unspecified; R58 Hemorrhage, not elsewhere classified; Z79.899 Other long term (current) drug therapy; Z87.891 Personal history of nicotine dependence
CPT/HCPCS: 00790; 47563; 36415; 74300; 76000; 80076; 85027; 85610; 85730; 87426; 88304; 93005; C9803; J7120; J2405

== ENCOUNTER → 2022-01-14 | Outpatient (CLI) | payer OTHER, SELFPAY ==
[2022-01-14 11:19] LABS: Erythrocyte Sedimentation Rate 12 mm/hr (0-30)
[2022-01-14 11:22] LABS: Absolute Lymphocyte Count 1.68 X10^3/uL (0.83-4.51); Absolute Neutrophil Count 2.2 X10^3/uL (2.0-7.7); Basophil# 0.08 X10^3/uL; Basophil% 1.7 % (0-1); Eosinophil# 0.37 X10^3/uL; Eosinophils% 7.7 % (0-5); Hematocrit 43.4 % (37-47); Hemoglobin 15.3 g/dL (12.0-15.0); Lymphocyte # 1.68 X10^3/ul (0.83-4.51); Lymphocyte % 34.8 % (19-41); Mean Corp Hgb Conc 35.3 g/dL (32-36); Mean Corpuscular Hgb 34.2 pg (27.0-32.0); Mean Corpuscular Volume 96.9 fL (81-99); Mean Platelet Vol. 9.3 fl (6.2-12.0); Monocyte# 0.48 X10^3/uL; Monocyte% 9.9 % (0-10); NRBC Flagged by Analyzer 0 % (0-5); Neutrophil % 45.5 % (47-70); Platelet Count 280 K/mm3 (150-450); RBC Distribution Width CV 12.7 % (11.6-14.6); RBC Distribution Width SD 44.8 fl (35.1-43.9); Red Blood Count 4.48 M/mm3 (4.2-5.4); White Blood Count 4.8 K/mm3 (4.4-11.0)
[2022-01-14 12:01] LABS: ALB/GLOB Ratio 0.7 RATIO (0.9-2.4); AST(SGOT) 19 U/L (15-37); Alanine Aminotransfer ALT/SGPT 26 U/L (13-56); Albumin, Serum 3.4 g/dL (3.2-5.0); Alkaline Phosphatase 92 U/L (45-117); Anion Gap 7 (5-15); BUN 13 mg/dL (7-18); BUN/Creat Ratio 14.9 RATIO (10-20); CPK Total, Creatine Kinase 123 U/L (26-192); CRP 3.53 mg/L (0.0-3.0); Calcium,Total 9.1 mg/dL (8.5-10.1); Chloride 110 mmol/L (98-107); Creatinine, Serum 0.87 mg/dL (0.55-1.02); EST Glomerular Filtration Rate 72 mL/min (>60); Est Glom Filt Rate - Afr Amer 88 mL/min (>60); Ferritin 66 ng/mL (8-252); Globulin 4.7 g/dL (2.2-4.2); Glucose 94 mg/dL (74-106); LDH 189 U/L (84-246); Potassium 3.9 mmol/L (3.5-5.1); Protein, Total 8.1 g/dL (6.4-8.2); Sodium Level 141 mmol/L (136-145)
[2022-01-15 13:08] LABS: Anti-Centromere B Ab <0.2 AI (0.0-0.9); Anti-Chromatin <0.2 AI (0.0-0.9); Anti-Jo <0.2 AI (0.0-0.9); Anti-Scleroderma-70 AB <0.2 AI (0.0-0.9); RNP Ab <0.2 AI (0.0-0.9); SJOGREN'S Anti-SS-A test < 0.2 AI (0.0-0.9); SJOGREN'S Anti-SS-B test < 0.2 AI (0.0-0.9); Smith Ab <0.2 AI (0.0-0.9)
[2022-01-15 14:57] LABS: Anti-dsDNA Ab 1 IU/mL (0-9)
[2022-01-15 17:07] LABS: Endomysial Antibody IgA Negative (Negative)
[2022-01-16 12:29] LABS: Immunoglobulin A 318 mg/dL (87-352); t-Transglutaminase IgA <2 U/mL (0-3)
== END | disposition home or self-care (01) ==
LOC: LAB 10:41
PROVIDERS: PCP Family Medicine; Referring Provider Internal Medicine Gastroenterology; Visit Provider Internal Medicine Gastroenterology
DX: R19.7 Diarrhea, unspecified (principal)
CPT/HCPCS: 36415; 80053; 82550; 82728; 82784; 82785; 82941; 83516; 83615; 84165; 85025; 85652; 86140; 86225; 86235; 86255; 86256; 86334

== ENCOUNTER → 2022-01-16 | Outpatient (CLI) | payer OTHER, SELFPAY ==
[2022-01-18 19:09] LABS: Calprotectin, Stool 27 ug/g (0-120)
[2022-01-24 16:30] LABS: Gastrin, Serum 57 pg/mL (0-115); Pancreatic Elastase, Fecal 367 (>200)
== END | disposition home or self-care (01) ==
PROVIDERS: PCP Family Medicine; Visit Provider Internal Medicine Gastroenterology
DX: R19.7 Diarrhea, unspecified (principal); K58.9 Irritable bowel syndrome, unspecified
CPT/HCPCS: 82653; 82941; 83630; 83993; 87177; 87209; 87329; 87493; 87506

== ENCOUNTER → 2022-01-31 | Outpatient (CLI) | payer OTHER, SELFPAY ==
--- NOTE | 2022-01-31 11:57 | NM_ITS ---
EXAM: NM GASTRIC EMPTYING SCAN CLINICAL INDICATION: Diarrhea after eating -- Hx of cholecystectomy TECHNIQUE: Patient was fed oatmeal containing 1 mCi Tc99m sulfur colloid. Images of the abdomen were obtained over a period of one hour. Half time of gastric emptying and percent retention of radionuclide activity were calculated. This report was created using [employer] report [employer] technology. COMPARISON: None. FINDINGS: STOMACH: Half life of the gastric activity is noted to be under 15 minutes. 60% emptying of the stomach at 30 minutes and 84% emptying of the stomach at 60 minutes. NM/Gastric Emptying Study IMPRESSION: Normal gastric emptying time with solids. Electronically Signed: Dontae Zavala MD at 17:06 EDT ,
== END | disposition home or self-care (01) ==
LOC: NM 11:56
PROVIDERS: PCP Family Medicine; Referring Provider Internal Medicine Gastroenterology; Visit Provider Internal Medicine Gastroenterology
DX: R19.7 Diarrhea, unspecified (principal); Z90.49 Acquired absence of other specified parts of digestive tract
CPT/HCPCS: 78264; A9541

== ENCOUNTER → 2022-03-13 | Outpatient (CLI) | payer OTHER, SELFPAY | END | disposition home or self-care (01) | LOC: LAB 12:28 | PROVIDERS: PCP Family Medicine; Visit Provider Internal Medicine Gastroenterology | DX: R19.7 Diarrhea, unspecified (principal) | CPT/HCPCS: 87493 ==

== ENCOUNTER → 2022-03-27 | Outpatient (CLI) | payer OTHER, SELFPAY ==
[2022-03-27 14:14] LABS: Erythrocyte Sedimentation Rate 13 mm/hr (0-30)
[2022-03-27 14:21] LABS: CRP 5.55 mg/L (0.0-3.0); LDH 204 U/L (84-246)
[2022-04-03 11:08] LABS: Cytoplasmic Ab (C-ANCA) <1:20 titer (Neg:<1:20); Immunoglobulin A 313 mg/dL (87-352); Immunoglobulin E 331 IU/mL (6-495); Immunoglobulin G 1683 mg/dL (586-1602); Immunoglobulin M 187 mg/dL (26-217)
[2022-04-03 16:41] LABS: Perinuclear Ab (P-ANCA) <1:20 titer (Neg:<1:20)
== END | disposition home or self-care (01) ==
LOC: LAB 13:23
PROVIDERS: PCP Family Medicine; Referring Provider Internal Medicine Gastroenterology; Visit Provider Internal Medicine Gastroenterology
DX: R19.7 Diarrhea, unspecified (principal)
CPT/HCPCS: 36415; 82784; 82785; 83615; 85652; 86140; 86256

== ENCOUNTER → 2022-03-28 | Outpatient (CLI) | payer OTHER, SELFPAY ==
[2022-04-01 21:00] LABS: Calprotectin, Stool <16 ug/g (0-120)
== END | disposition home or self-care (01) ==
PROVIDERS: PCP Family Medicine; Visit Provider Internal Medicine Gastroenterology
DX: R19.7 Diarrhea, unspecified (principal); K58.9 Irritable bowel syndrome, unspecified
CPT/HCPCS: 83630; 83993; 87493; 87506

== ENCOUNTER 2022-04-13 12:04 | Emergency (ER) | payer OTHER, SELFPAY ==
[2022-04-13 12:06] VITALS: BP 121/95; PULSE 112; RESP 16; TEMP 36.1; O2SAT 97; BMI 28.3
--- NOTE | 2022-04-13 12:21 | EDS_ITS ---
HPI History of Present Illness Chief Complaint: Lower Extremity Injury Narrative Narrative: 51-year-old female presenting with left medial knee pain. She states [place] and noted started to hurt and pop when she walked. She does have degenerative arthritis in her left knee. She states she has some kind of patellar problem and does not track right. She denies any direct injury. She is ambulatory with antalgic gait. [facility] Medical History Alcohol use Anemia Arthritis Attention-deficit hyperactivity disorder, unspecified type Cardiology follow-up encounter Cervical radiculopathy Depression Drug overdose, multiple drugs Elevated liver enzymes Excessive bleeding Former smoker History of echocardiogram History of edema History of ganglion cyst History of hiatal hernia History of rheumatic fever History of stress test History of suicide attempt History of vomiting Hx of diarrhea Leg cramps Loss of consciousness Migraine headache Migraines Nonrheumatic mitral (valve) prolapse Psoriasis Pure hypercholesterolemia, unspecified Restless legs Rheumatic fever without heart involvement Tension-type headache, unspecified, not intractable Wears glasses Home Medications desvenlafaxine succinate 25 mg tablet,extended release 24 hr 50 mg PO QHS 11/18/15 [History Last Taken Unknown] rizatriptan 10 mg tablet (Maxalt) 10 mg PO PRN PRN MIGRAINES 02/09/21 [History Last Taken Unknown] topiramate 50 mg tablet 75 mg PO QHS 02/09/21 [History Last Taken Unknown] colestipol 1 gram tablet 2 g PO DAILY #60 tabs 04/05/22 [Rx Last Taken Unknown] diphenoxylate-atropine 2.5 mg-0.025 mg tablet (Lomotil) 1 tab PO BID PRN diarrhea #60 tabs 04/05/22 [Rx Last Taken Unknown] ixekizumab 80 mg/mL subcutaneous auto-injector (Taltz Autoinjector) 80 mg subcut Q4W 04/05/22 [History Last Taken Unknown] losartan 100 mg tablet 100 mg PO DAILY 04/13/22 [History Last Taken Unknown] naproxen 500 mg tablet (Naprosyn) 500 mg PO BID PRN pain #20 tabs 04/13/22 [Rx Last Taken Unknown] Allergy/AdvReac Type Severity Reaction Status Date / Time hydrocodone [From Vicodin] Allergy Nausea Verified 04/13/22 12:05 Penicillins [PCN] Allergy Hives Verified 04/13/22 12:05 hyoscyamine AdvReac Intermediate emesis Verified 04/13/22 12:05 Family History Sister No problems noted. 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 Smoking Status: Former smoker quit date: 11/27/11 alcohol intake: current alcohol intake frequency: holidays/special occasions only substance use type: does not use caffeine: Yes (2 cups daily) ROS ROS ED Constitutional Constitutional ED: Denies chills or fever(s) Eyes Eyes: Denies change in vision or diplopia ENT ENT ED: Denies rhinorrhea or sore throat Cardiovascular Cardiovascular: Denies chest pain or palpitations Respiratory/Chest Respiratory/Chest: Denies cough or dyspnea Gastrointestinal Gastrointestinal: Denies abdominal pain Genitourinary Genitourinary ED: Denies dysuria or hematuria Musculoskeletal Musculoskeletal: Reports other Details: Left knee pain ; Denies back pain Integumentary Denies abscess or Abrasions Neurologic Neurologic: Denies headache(s) or paresthesias Psychiatric Psychiatric: Denies anxiety or depression EXAM Physical Exam Const Vital Signs: 04/13/22 12:06 Temperature 97.0 F L Temperature Source Temporal Pulse Rate 112 H Respiratory Rate 16 Blood Pressure 121/95 H Blood Pressure Mean 103 Pulse Ox 97 Oxygen Delivery Method Room Air Positive well nourished General Appearance ED: NAD HEENT Reports moist mucous membranes normocephalic and atraumatic Eyes PERRL Chest Wall inspection of chest normal and palpation of chest normal Resp normal respiratory effort Cardio regular rate and regular rhythm Extremity Extremity Narrative: Left knee is tender to palpation on the medial joint line. On examination this is painful with valgus strain. There is no edema noted to the knee. The patella is not tender. No redness. Patient maintains full range of motion. Neuro oriented x3 and CN's II-XII intact bilaterally Sensorium / Orientation: alert Psych mental status grossly normal Skin no wounds MDM MDM MDM Narrative Medical decision making narrative: Patient presenting with left knee pain. I did not find any external swelling or signs of infection. Her exam is consistent with a meniscal injury. The knee x-ray I obtained shows no acute fracture or subluxation on my interpretation. The radiologist does agree. Patient counseled on findings and care recommendat ions were given to her. She has an orthopedic surgeon she can follow-up with. Impression: 1. Meniscal tear left knee Lab Data Attestation: I reviewed the patient's lab results. Radiography Diagnostic Testing: Clinical Impression(s) from Imaging Studies Knee X-Ray 04/13/22 12:30 IMPRESSION: Degenerative arthrosis. Electronically Signed: Simeon Benjamin MD at 12:47 EDT Reading Location ID and State: [address] [place] [address] , Service support , Discharge Plan Triage Chief Complaint: Lower Extremity Injury ED Provider: Rex Urias Dx/Rx/DC Orders Instructions: ED Meniscal Injury Knee Poss Prescriptions: New naproxen [Naprosyn] 500 mg tablet 500 mg PO BID PRN (Reason: pain) Qty: 20 0RF No Action rizatriptan [Maxalt] 10 mg tablet 10 mg PO PRN PRN (Reason: MIGRAINES) Taltz Autoinjector 80 mg/mL auto-injector 80 mg subcut Q4W colestipol 1 gram tablet 2 g PO DAILY Qty: 60 1RF Rx Instructions: take 1-2 tablets once a day, avoid taking with other medications diphenoxylate-atropine [Lomotil] 2.5-0.025 mg tablet 1 tab PO BID PRN (Reason: diarrhea) Qty: 60 0RF topiramate 50 mg tablet 75 mg PO QHS Label Comments: Migraine desvenlafaxine succinate 25 MG tablet extended release 24 hr 50 mg PO QHS losartan 100 mg tablet 100 mg PO DAILY Label Comments: take 1 tablet by mouth once daily Primary Care Provider: Taz Sheehan Referrals: Taz Sheehan DO [Primary Care Provider] - Disposition Disposition: Home, Self Care
--- NOTE | 2022-04-13 12:30 | RAD_ITS ---
STUDY: X-RAY - LEFT KNEE REASON FOR EXAM: Female, 51 years old. pain TECHNIQUE: 4 view(s) of the knee. COMPARISON: None. FINDINGS: Normal visualized distal femur. Normal visualized proximal tibia and fibula. Normal proximal tibiofibular articulation. There is no demonstrated fracture. Normal medial femorotibial compartment. Normal lateral femorotibial compartment. There is mild degenerative arthrosis of the patellofemoral articulation. There is no demonstrated joint effusion. The soft tissue structures are unremarkable. RAD/Knee 4 or More Views IMPRESSION: Degenerative arthrosis. Electronically Signed: Simeon Benjamin MD at 12:47 EDT ,
[2022-04-13 13:38] VITALS: BP 123/74; PULSE 84; RESP 18; O2SAT 99
== END 2022-04-13 13:39 | disposition home or self-care (01) ==
PROVIDERS: Emergency Provider Student in an Organized Health Care Education/Training Program; PCP Family Medicine; Visit Provider Student in an Organized Health Care Education/Training Program
DX: S83.207A Unspecified tear of unspecified meniscus, current injury, left knee, initial encounter (principal); M17.12 Unilateral primary osteoarthritis, left knee; E78.00 Pure hypercholesterolemia, unspecified; Z87.891 Personal history of nicotine dependence; X50.1XXA Overexertion from prolonged static or awkward postures, initial encounter
CPT/HCPCS: 73564; 99282

== ENCOUNTER → 2022-04-19 | Outpatient (CLI) | payer OTHER, SELFPAY ==
--- NOTE | 2022-04-19 14:11 | CT_ITS ---
INDICATION: diarrhea, possible crohn''s -- enterography EXAMINATION: CT ABDOMEN AND PELVIS WITH CONTRAST - CT Abdomen And Pelvis W/ Contrast Injection TECHNIQUE: Helically acquired images were obtained of the abdomen and pelvis following IV contrast. A radiation dose optimization technique was used for this scan. IV Contrast dosage and agent: 100 mL of [id number]. Oral contrast: Yes. COMPARISON: 12/07/2013.. FINDINGS: LOWER CHEST: Prominent interstitial lung markings visualized in the right lower lung mcgrath with subtle areas of groundglass opacification findings suggestive of aspiration secondary to gastroesophageal reflux disease given the presence of a small hiatus hernia. No evidence of focal lung consolidation. No cardiomegaly or pericardial effusion. LIVER: Homogeneous. No focal mass. GALLBLADDER AND BILIARY TREE: No calcified gallstones. No gallbladder distension or wall edema. No intra- or extrahepatic biliary ductal dilation. PANCREAS: No focal cystic or solid mass. SPLEEN: Normal size without focal cystic or solid mass. ADRENAL GLANDS: No nodules. KIDNEYS AND URETERS: Normal renal size and position. No hydronephrosis. PERITONEUM: No ascites or free air. No other fluid collection. BOWEL: Stomach is unremarkable, mild prominence of the fluid-filled loops of small bowel is seen but no evidence of significant wall thickening, no evidence of marked small bowel distention is seen. No evidence of stranding of the mesenteric fat planes is seen. No evidence of endoluminal masses. The appendix is visualized and is unremarkable. The large bowel loops are unremarkable. No focal inflammatory change. LYMPH NODES: No enlarged mesenteric or retroperitoneal lymph nodes. VESSELS: Aorta is non-dilated. URINARY BLADDER: Unremarkable. REPRODUCTIVE ORGANS: No pelvic masses. ABDOMINAL WALL: No discrete abdominal or pelvic wall hernia. BONES: No lytic or blastic abnormality. Degenerative bone changes. CT/Abdomen/Pelvis WITH Contrast IMPRESSION: Fluid-filled loops of small bowel visualized, no significant stranding of the peritoneal fat planes is visualized tissues inflammatory changes. Electronically Signed: Shemar Gill MD at 15:44 EDT Reading Location ID and State: [facility] / [place] Tel , Service support ,
== END | disposition home or self-care (01) ==
LOC: CT 14:10
PROVIDERS: PCP Family Medicine; Referring Provider Nurse Practitioner Adult Health; Visit Provider Nurse Practitioner Adult Health
DX: R19.7 Diarrhea, unspecified (principal)
CPT/HCPCS: 74177; Q9967

== ENCOUNTER 2022-05-01 10:38 | Day surgery (SDC) | payer OTHER, SELFPAY ==
[2022-05-01] VITALS (7 sets, daily range): BP systolic 95–123; BP diastolic 65–82; PULSE 62–88; RESP 16–18; TEMP 36.6–36.8; O2SAT 98–100; BMI 27.8
--- NOTE | 2022-05-01 | EGD_PTH ---
PATIENT: DOMINGO GARCIA LOC: [facility] U#:[id number] AGE/SX: 51/F ROOM: RE05/01/[address]: Dr. Fransisco Brown DO : 1970 BED: DIS: 05/01/2022 SPEC #: [id number] RECD: 05/01/22 13:57 STATUS: SAMUEL HUGH #: [id number] SONA: 05/01/22 00:[address]: Fransisco Brown DEPT: SURGICAL PATHOLOGY RECD BY: Jose Francisco Davis ENTERED: 05/02/22 08:46 SP TYPE: EGD BIOPSY OT DR: Dr. Taz Sheehan, Tissues: A - Duodenum, NOS B - Esophageal mucous membrane C - Gastric mucous membrane D - COLON BIOPSY E - Rectum, NOS Procedures: Special Stain Group II Surgery Specimen Level IV Alcian Blue/PAS (control) HEADER OPERATION: Colonoscopy, EGD, biopsies (MAC), polypectomy PRE-OP DIAGNOSIS: Diarrhea TISSUE SUBMITTED: A ? Duodenum biopsy, B ? Distal esophagus biopsy, C ? Terminal ileum, D ? Random colon, E ? Rectal polyp MICROSCOPIC DIAGNOSIS A. Duodenum, biopsy: No pathologic change. B. Distal esophagus, biopsy: Gastroesophageal junctional mucosa with chronic inflammation. Focal changes of reflux. No evidence of goblet cell metaplasia. See comment. C. Terminal ileum, biopsy: No pathologic change. D. Colon, random biopsy: No pathologic change. E. Rectal polyp, biopsy: Fragments of tubular adenoma. AM:clara 05/03/2022 COMMENT B. Alcian blue/PAS stain with matched control supports the above diagnosis. MICROSCOPIC DESCRIPTION Slides are reviewed. GROSS DESCRIPTION A - Received in fixative is one container labeled with the patient's name and designated duodenum biopsy. The specimen consists of multiple irregular fragments of light dillon soft tissue that in aggregate measure 0.6 x 0.5 x 0.1 cm. The specimen is totally submitted in one cassette. B - Received in fixative is one container labeled with the patient's name and designated distal esophagus biopsy. The specimen consists of multiple irregular fragments of light dillon soft tissue that in aggregate measure 1.5 x 0.3 x 0.1 cm. The specimen is totally submitted in one cassette. C - Received in fixative is one container labeled with the patient's name and designated terminal ileum. The specimen consists of two irregular fragments of light dillon soft tissue that in aggregate measure 0.8 x 0.3 x 0.1 cm. The specimen is totally submitted in one cassette. D - Received in fixative is one container labeled with the patient's name and designated random colon. The specimen consists of multiple irregular fragments of light dillon soft tissue that in aggregate measure 2 x 0.6 x 0.1 cm. The specimen is totally submitted in one cassette. E - Received in fixative is one container labeled with the patient's name and designated rectal polyp. The specimen consists of two irregular fragments of light dillon soft tissue measuring 0.4 x 0.3 x 0.1 cm and 0.2 x 0.1 x 0.1 cm. The specimen is totally submitted in one cassette. / SJ:rg 05/02/2022 TC:5 CPT: 45980 x5, 37583
[2022-05-01] MEDS: Lactated Ringers 1,000 ML 15 ML IV (11:07)
--- NOTE | 2022-05-01 11:27 | HP.PCM_ITS ---
History and Physical Date of Admission: 05/01/22 51 F who presents to the office today for 3 month f/u diarrhea Diarrhea started more than one yr ago; maybe slight improvement after cholecystectomy in 03/2021, but then worsened. She was diagnosed with C diff in 12/2021; diarrhea improved with treatment but then returned; repeat test for C diff was negative. She has urgent watery yellow diarrhea after eating, max 30 minutes after eating but usually more like 10 minutes, may have to get up from the meal. She avoids the foods that are more bothersome, deep fried or greasy foods. Can have accidents due to urgency. No nocturnal diarrhea. May have some diarrhea in the morning before eating. She may avoid eating just to prevent diarrhea. Weight is stable. Feeling some depression due to this diarrhea. May feel bloated at times. No abdominal pain or crampy. Held Cosentyx because of C diff infection. Now on Taltz (ixekizumab) for psor iasis/psoriatic arthritis instead (Cosentyx was effective but not covered by insurance). 12/2021 high eosinophils, crp 3.53, nl gastrin, nl stool elastase, nl calprotectin, neg celiac, positive c diff She called us on 03/25/22 with increased diarrhea -- crp 5.55, neg c diff, neg enteric pathogens, neg lactoferrin, neg c diff, positive Guille which is suggestive of Crohn's (neg ACCA, neg ALCA, neg AMCA) PCP performed ColoGuard in with normal results. Reports colonoscopy approx. 15 years prior. PMH Psoriasis with psoriatic arthritis; migraines; depression with suicidal attempts. PSH cholecystectomy 05.15.21. US RUQ 8.24.21 finding fatty liver infiltration, measurement 15.9cm; small amount of sludge in gallbladder lumen (s/p cholecystectomy 05.15.21). ROS Gastro GI: Positive for diarrhea Musc Musculoskeletal: Positive for joint pain, stiffness and Arthritis Exam Const General: cooperative, comfortable, well developed and well groomed Nutritional Appearance: average body habitus Orientation: alert, awake and oriented x3 HENMT Head: normal to inspection Eyes General: appearance normal, both eyes and all related structures Resp Effort & Inspection: normal respiratory effort Quality Reporting Tobacco Screening ([facility] 138) Smoking Status: Former smoker Assessment and Plan Assessment and Plan (1) Diarrhea: ?Status:?Acute ?Plan: 51 yr old female with chronic diarrhea, lab suggestive of Crohn's. Recent C diff infection, increased risk for C diff if she does have IBD. We will schedule her for EGD and colonoscopy to eval further for Crohn's. Consider capsule endoscopy. Will get CT enterography first. Rx colestipol 1-2 grams daily, avoid taking with other meds. Rx lomotil 1-2x per day. Let me know how these meds work for managing the diarrhea. f/u 2 wks after egd/colonoscopy. ? ? ? Orders: Orders Abdomen/Pelvis WITH Contrast Today R19.7 - Diarrhea, unspecified ? Medications: New colestipol ?? take 1-2 tablets once a day, avoid taking with other medications 2 grams (2 x 1 gram) PO DAILY 60 tabs 1RF ? ? diphenoxylate-atropine 2.5-0.025 mg (Lomotil) 1 TAB? PO BID PRN 60 tabs 0RF diarrhea ? ? I have re-examined the patient. There are no clinical changes since date of exam.
--- NOTE | 2022-05-01 12:07 | OP.EGD_ITS ---
Patient Name: Cammie Bhat Procedure Date: 05/01/2022 11:32 AM Date of : 1970 Age: 51 Procedure: Upper GI endoscopy Indications: Functional Dyspepsia, Suspected esophageal reflux Providers: Fransisco Brown DO Medicines: Monitored Anesthesia Care Patient Profile: This is a 51 year old female. Refer to note in patient chart for documentation of history and physical. Patient has symptoms of acute dyspepsia, acute heartburn and acute nausea. Complications: No immediate complications. Procedure: Pre-Anesthesia Assessment: - Prior to the procedure, a History and Physical was performed, and patient medications and allergies were reviewed. The risks and benefits of the procedure and the sedation options and risks were discussed with the patient. All questions were answered and informed consent was obtained. Patient identification and proposed procedure were verified by the physician in the pre-procedure area. Mental Status Examination: alert and oriented. Airway Examination: normal oropharyngeal airway and neck mobility. Respiratory Examination: clear to auscultation. CV Examination: normal. Prophylactic Antibiotics: The patient does not require prophylactic antibiotics. Prior Anticoagulants: The patient has taken no previous anticoagulant or antiplatelet agents. ASA Grade Assessment: II - A patient with mild systemic disease. After reviewing the risks and benefits, the patient was deemed in satisfactory condition to undergo the procedure. The anesthesia plan was to use monitored anesthesia care (MAC). Immediately prior to administration of medications, the patient was re-assessed for adequacy to receive sedatives. The heart rate, respiratory rate, oxygen saturations, blood pressure, adequacy of pulmonary ventilation, and response to care were monitored throughout the procedure. The physical status of the patient was re-assessed after the procedure. After obtaining informed consent, the endoscope was passed under direct vision. Throughout the procedure, the patient's blood pressure, pulse, and oxygen saturations were monitored continuously. The colonoscope was introduced through the mouth, and advanced to the second part of duodenum. The upper GI endoscopy was accomplished without difficulty. The patient tolerated the procedure well. Scope In: 11:40:32 AM Scope Out: 11:45:54 AM Total Procedure Duration Time 0 hours 5 minutes 22 seconds Findings: LA Grade C (one or more mucosal breaks continuous between tops of 2 or more mucosal folds, less than 75% circumference) esophagitis with no bleeding was found 37 to 39 cm from the incisors. Biopsies were taken with a cold forceps for histology. Verification of patient identification for the specimen was done. Estimated blood loss was minimal. A medium-sized hiatal hernia was present. The cardia and gastric fundus were normal on retroflexion. The second portion of the duodenum was normal. Biopsies were taken with a cold forceps for histology. Verification of patient identification for the specimen was done. Estimated blood loss was minimal. Impression: - LA Grade C reflux esophagitis. Biopsied. - Medium-sized hiatal hernia. - Normal second portion of the duodenum. Biopsied. Recommendation: - Use Protonix (pantoprazole) 40 mg PO BID for 8 weeks. - Continue present medications. Procedure Code(s): --- Professional --- 46943, Esophagogastroduodenoscopy, flexible, transoral; with biopsy, single or multiple CPT copyright 2017 [employer]. All rights reserved. The codes documented in this report are preliminary and upon professional fee coder review may be revised to meet current compliance requirements. Fransisco Brown DO 05/01/2022 12:07:09 PM This report has been signed electronically. Number of Addenda: 0 Note Initiated On: 05/01/2022 11:32 AM
--- NOTE | 2022-05-01 12:08 | OP.CCLET_ITS ---
05/01/2022 Taz Sheehan [address] [facility] [place] [address] Re : Upper GI endoscopy procedure for Cammie Bhat Dear Dr. Sheehan This procedure was performed on Sunday, May 01, 2022. My impressions and recommendations are as follows: Impressions : - LA Grade C reflux esophagitis. Biopsied. - Medium-sized hiatal hernia. - Normal second portion of the duodenum. Biopsied. Recommendations : - Use Protonix (pantoprazole) 40 mg PO BID for 8 weeks. - Continue present medications. My findings are described in the full procedure note, which is enclosed. If I can be of further assistance, please feel free to contact me at . Sincerely, Fransisco Friend, 05/01/2022 12:07:09 PM This report has been signed electronically.
--- NOTE | 2022-05-01 12:12 | OP.COLON_ITS ---
Patient Name: Cammie Bhat Procedure Date: 05/01/2022 11:46 AM Date of : 1970 Age: 51 Procedure: Colonoscopy Indications: Chronic diarrhea Providers: Fransisco Brown DO Medicines: Monitored Anesthesia Care Patient Profile: This is a 51 year old female. Refer to note in patient chart for documentation of history and physical. Patient has symptoms of acute dyspepsia, acute heartburn and acute nausea. Last Colonoscopy: none. The patient's first colonoscopy is today. Complications: No immediate complications. Procedure: Pre-Anesthesia Assessment: - Prior to the procedure, a History and Physical was performed, and patient medications and allergies were reviewed. The risks and benefits of the procedure and the sedation options and risks were discussed with the patient. All questions were answered and informed consent was obtained. Patient identification and proposed procedure were verified by the physician in the pre-procedure area. Mental Status Examination: alert and oriented. Airway Examination: normal oropharyngeal airway and neck mobility. Respiratory Examination: clear to auscultation. CV Examination: normal. Prophylactic Antibiotics: The patient does not require prophylactic antibiotics. Prior Anticoagulants: The patient has taken no previous anticoagulant or antiplatelet agents. ASA Grade Assessment: II - A patient with mild systemic disease. After reviewing the risks and benefits, the patient was deemed in satisfactory condition to undergo the procedure. The anesthesia plan was to use monitored anesthesia care (MAC). Immediately prior to administration of medications, the patient was re-assessed for adequacy to receive sedatives. The heart rate, respiratory rate, oxygen saturations, blood pressure, adequacy of pulmonary ventilation, and response to care were monitored throughout the procedure. The physical status of the patient was re-assessed after the procedure. After I obtained informed consent, the scope was passed under direct vision. Throughout the procedure, the patient's blood pressure, pulse, and oxygen saturations were monitored continuously. The colonoscope was introduced through the anus and advanced to the terminal ileum. The colonoscopy was performed without difficulty. The patient tolerated the procedure well. The quality of the bowel preparation was good. Scope In: 11:47:40 AM Scope Withdrawal Time 0 hours 10 minutes 7 seconds Scope Out: 12:00:27 PM Total Procedure Duration Time 0 hours 12 minutes 47 seconds Findings: The perianal and digital rectal examinations were normal. A 5 mm polyp was found in the rectum. The polyp was sessile. The polyp was removed with a hot snare. Resection and retrieval were complete. Verification of patient identification for the specimen was done. Estimated blood loss was minimal. A few small and large-mouthed diverticula were found in the recto-sigmoid colon, sigmoid colon and descending colon. An area of mildly congested mucosa was found in the entire colon. Biopsies were taken with a cold forceps for histology. Verification of patient identification for the specimen was done. Estimated blood loss was minimal. Impression: - One 5 mm polyp in the rectum, removed with a hot snare. Resected and retrieved. - Diverticulosis in the recto-sigmoid colon, in the sigmoid colon and in the descending colon. - Congested mucosa in the entire examined colon. Biopsied. Recommendation: - Discharge patient to home. - Resume previous diet. - Continue present medications. - Await pathology results. - Repeat colonoscopy in 5 years for surveillance. - Return to GI office. Procedure Code(s): --- Professional --- 52032, Colonoscopy, flexible; with removal of tumor(s), polyp(s), or other lesion(s) by snare technique 34783, 59, Colonoscopy, flexible; with biopsy, single or multiple CPT copyright 2017 [employer]. All rights reserved. The codes documented in this report are preliminary and upon change management coordinator review may be revised to meet current compliance requirements. Fransisco Brown DO 05/01/2022 12:11:54 PM This report has been signed electronically. Number of Addenda: 0 Note Initiated On: 05/01/2022 11:46 AM
--- NOTE | 2022-05-01 12:13 | OP.CCLET_ITS ---
05/01/2022 Taz Sheehan [address] [place] [address] Re : Colonoscopy procedure for Cammie Bhat Dear Dr. Sheehan This procedure was performed on Sunday, May 01, 2022. My impressions and recommendations are as follows: Impressions : - One 5 mm polyp in the rectum, removed with a hot snare. Resected and retrieved. - Diverticulosis in the recto-sigmoid colon, in the sigmoid colon and in the descending colon. - Congested mucosa in the entire examined colon. Biopsied. Recommendations : - Discharge patient to home. - Resume previous diet. - Continue present medications. - Await pathology results. - Repeat colonoscopy in 5 years for surveillance. - Return to GI office. My findings are described in the full procedure note, which is enclosed. If I can be of further assistance, please feel free to contact me at . Sincerely, Fransisco Friend, 05/01/2022 12:11:54 PM This report has been signed electronically.
== END 2022-05-01 13:02 | disposition home or self-care (01) ==
LOC: EN 10:39 → AC 10:40
PROVIDERS: PCP Family Medicine; Referring Provider Family Medicine; Visit Provider Internal Medicine Gastroenterology
PROC: 0DJD8ZZ Inspection of Lower Intestinal Tract, Via Natural or Artificial Opening Endoscopic (ICD-10-PCS; CPT 45378; principal; 2022-05-01 11:40)
DX: D12.8 Benign neoplasm of rectum (principal); K21.00 Gastro-esophageal reflux disease with esophagitis, without bleeding; K44.9 Diaphragmatic hernia without obstruction or gangrene; K57.30 Diverticulosis of large intestine without perforation or abscess without bleeding; K63.89 Other specified diseases of intestine; I10 Essential (primary) hypertension; G43.909 Migraine, unspecified, not intractable, without status migrainosus; Z79.899 Other long term (current) drug therapy; Z87.891 Personal history of nicotine dependence
CPT/HCPCS: 45380; 45385; 43239; 88305; 88313; J7120; J2405

== ENCOUNTER → 2022-05-07 | Outpatient (CLI) | payer OTHER, SELFPAY ==
--- NOTE | 2022-05-07 13:14 | BI_ITS ---
MAMMOGRAPHY - BILATERAL SCREENING REASON FOR EXAM: Female, 51 years old. Routine annual screening examination. PERTINENT HISTORY: Non-contributory. TECHNIQUE: Digital bilateral breast chintan (3D mammographic acquisition) in the CC and MLO projections. 2-D mediolateral oblique (MLO) and craniocaudad (CC) views of both breasts were obtained. CAD: Full Field Digital Mammography with Computer Added Detection was performed. COMPARISON: Comparison is made with prior study dated 04/03/2021 and 03/20/2020. FINDINGS: Breast Composition: There are scattered areas of fibroglandular density. There are no dominant masses or suspicious calcifications. Stable benign-appearing bilateral axillary No other significant abnormalities are identified. There has been no significant change since the prior study. BI/SCRN MAMM (CAD)W/CHINTAN BILAT IMPRESSION: Stable bilateral screening mammogram. Yearly follow-up mammogram recommended. (A) ASSESSMENT CATEGORY: BIRADS Category 2: Benign. A letter regarding these results will be sent to the patient by the facility within 30 days. Approximately 10% of breast cancers are not detected by mammography. A normal mammogram should not delay biopsy of a clinically suspicious abnormality. [id number] Electronically Signed: Geoff Andrew MD at 14:52 EDT ,
== END | disposition home or self-care (01) ==
LOC: OPBI 13:12
PROVIDERS: PCP Family Medicine; Visit Provider Family Medicine
DX: Z12.31 Encounter for screening mammogram for malignant neoplasm of breast (principal)
CPT/HCPCS: 77063; 77067

== ENCOUNTER → 2022-05-30 | Outpatient (CLI) | payer OTHER, SELFPAY ==
[2022-05-30 18:04] LABS: Absolute Lymphocyte Count 1.59 X10^3/uL (0.83-4.51); Absolute Neutrophil Count 2.8 X10^3/uL (2.0-7.7); Basophil# 0.05 X10^3/uL; Eosinophil# 0.21 X10^3/uL; Eosinophils% 4.1 % (0-5); Hematocrit 40.8 % (37-47); Hemoglobin 14.7 g/dL (12.0-15.0); Lymphocyte # 1.59 X10^3/ul (0.83-4.51); Lymphocyte % 30.8 % (19-41); Mean Corpuscular Hgb 35.7 pg (27.0-32.0); Mean Platelet Vol. 9.7 fl (6.2-12.0); Monocyte# 0.53 X10^3/uL; Monocyte% 10.3 % (0-10); NRBC Flagged by Analyzer 0 % (0-5); Neutrophil # 2.78 X10^3/uL (2.7-7.7); Neutrophil % 53.6 % (47-70); Platelet Count 245 K/mm3 (150-450); RBC Distribution Width CV 12.5 % (11.6-14.6); RBC Distribution Width SD 44.4 fl (35.1-43.9); Red Blood Count 4.12 M/mm3 (4.2-5.4); White Blood Count 5.2 K/mm3 (4.4-11.0)
[2022-05-30 19:15] LABS: AST(SGOT) 22 U/L (15-37); Alanine Aminotransfer ALT/SGPT 33 U/L (13-56); Albumin, Serum 3.5 g/dL (3.2-5.0); Alkaline Phosphatase 90 U/L (45-117); Bilirubin, Direct 0.15 mg/dL (0.00-0.30); Creatinine, Serum 0.99 mg/dL (0.55-1.02); EST Glomerular Filtration Rate 63 mL/min (>60); Est Glom Filt Rate - Afr Amer 76 mL/min (>60); Globulin 4.5 g/dL (2.2-4.2)
== END | disposition home or self-care (01) ==
LOC: MTLAB 14:49
PROVIDERS: PCP Family Medicine; Referring Provider Internal Medicine Rheumatology; Visit Provider Internal Medicine Rheumatology
DX: L40.50 Arthropathic psoriasis, unspecified (principal)
CPT/HCPCS: 36415; 80076; 82565; 85025

== ENCOUNTER 2022-06-05 15:00 | Outpatient (RCR) | payer OTHER, SELFPAY ==
--- NOTE | 2022-05-03 14:22 | HP.PTEVAL ---
Patient's Visit Information DOMINGO GARCIA is a 51 year old F referred to Physical Therapy by [facility] with a diagnosis of PAIN IN LEFT KNEE ,UNILATERAL PRIMARY OSTEORTHRITIS ,LEFT KNEE. Date of Evaluation: 05/03/22 Physical Therapist: Rolly Giordano, PT, Cert MDT, OCS - Visit Plan Frequency: 2x /Week Duration: 4 Weeks Plan: PT INTERVETIONS PROGRESSIVE STRENGTHENING QUADS/HAMS AND HIP ,FLEXABLITY ,FUNCTIONAL STRENGTHNEING AND MODALTIES(PRN) - Subjective This 51 y/o female presents to physical therapy with left knee pain . Patient developed left knee pain when [place] of walking in [place]. Patient went to ER before vacation. Prescribed medication unable to neck . Patient seen orthopedic did ,x-rays DJD and did cortisone injection. Then recommended PT . Cortisone injection helped to decrease pain. Pain located medial knee described as throbbing. Initially, aggravated with squatting /kneeling and stairs and extended. Denies paresthesia/tingling .Patient did have some edema intially. Patient pain doesnt affects affects sleeping. Patient condition affects QOL and gait. SOCAIL: . VOCATION: uneployed - Pain Left Knee Pain Intensity (Out of 10): 2 Pain Intensity Range: 10 - Objective POSTURE: WFL. GAIT: reciprocal pattern. PALAPTION: tender medial knee. FLEXABLITY: hamstrings min tight. MMT: quads/hams 4/5 ,hip flexion 4/5 ,hip abduction peak force 10.2 ,ankle 4/5 - Special Tests L Knee Daria - Meniscus: Negative L Knee Omid - ACL: Negative L Knee Anterior Drawer - ACL: Negative L Knee Posterior Drawer - PCL: Negative L Knee Posterior Sag - PCL: Negative L Knee Valgus - MCL: Negative L Knee Varus - LCL: Negative - Balance/Special Test Scores Lower Extremity Functional Score: 38 - Goals Goal 1:: Patient to be I with HEP for knee Goal Time Frame: 4-6 Weeks Goal 2:: Patient to demonstrate 70% improvement with improved function and less pain Goal Time Frame: 4-6 Weeks Goal 3:: Patient to improve hip strength by 5-10 peak force to improve function. Goal Time Frame: 4-6 Weeks Goal 4:: Patient to improve LFES score by 10 points or > to improve QOL and function Goal Time Frame: 4-6 Weeks Goal 5:: Patient return to prior level of function with walking ,stairs and squatting to pick remover laundry basket. Goal Time Frame: 4-6 Weeks - Rehabilitation Potential Physical Therapy Diagnosis: This 51 y/o female developed left knee pain walking a lot x-rays showed mild OA and cortisone helped pain with current impairments with weakness mainly hip abduction and worse with squatting/kneeling stairs thus benefit from skilled PT Rehabilitation Potential: Good - Anticipated Interventions Patient/Client Instruction: Educate patient on: Condition, Plan of Care For the Purpose of:: To decrease pain, To increase ROM, To improve muscle performance and motor function, To improve ability to perform ADL's, To increase tolerance to activity/condition/position, To improve performance and independence with ADL's, To decrease level of supervision to perform tasks, To improve ability of physical actions for home/community/work/leisure, To improve gait and locomotor functions, To improve health of tissue, To decrease soft tissue restriction, To increase flexibility/ROM Therapeutic Exercise to Include: Strength training, Endurance training, Balance training, Flexibilty training, Active ROM Comment: QUADS/HAMS/HIP For the Purpose of:: To decrease pain, To improve muscle performance and motor function, To improve ability to perform ADL's, To increase tolerance to activity/condition/position, To improve ability of physical actions for home/community/work/leisure, To improve health of tissue, To decrease soft tissue restriction, To increase flexibility/ROM, To improve balance TENS: Yes IF ES: Yes Cryotherapy (ice pack, ice massage): Yes Thermo therapy (hot pack): Yes Ultrasound (thermal/non thermal): Yes For the Purpose of:: To decrease pain, To decrease swelling/inflammation, To improve nutrient delivery to tissue, To increase oxygenation perfusion, To improve health of tissue, To decrease soft tissue restriction Thank you for the opportunity to evaluate your patient. For Medicare and Medicare HMO plans, please review the plan of care and approve it. It will need to be FAXED BACK to us at [phone] for Medicare purposes. For Medicare only, by signing this I certify the plan of care. Please let me know if there are questions or concerns regarding this plan of care. Physician Signature: Date:
--- NOTE | 2022-07-16 09:57 | HP.PTDCSUM ---
It has been my pleasure to treat DOMINGO GARCIA referred by AGUS Urbina, with the diagnosis of PAIN IN LEFT KNEE ,UNILATERAL PRIMARY OSTEORTHRITIS ,LEFT KNEE for a total of 7 visit(s). Discharge Date: Please see the following information for a summary of their discharge status. Subjective: Pain is still panful with walking stairs ,bending ,pain with squatting ,kneeling. RTD possible MRI Left Knee Pain Intensity (Out of 10): 2 % Improvement: 30 Objective/Function: GAIT: reciprocal pattern. MMT: QUADS/HAMS 4/5 ,HIP FLEXION 4/5. AROM: 0-130 degrees Goal 1:: Patient to be I with HEP for knee Goal 2:: Patient to demonstrate 70% improvement with improved function and less pain Goal 3:: Patient to improve hip strength by 5-10 peak force to improve function. 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 Plan: RTD FOR POSSIBLE FURTHER DIAGNOSTICS If there are questions or concerns regarding this patient's physical therapy, please feel free to call me at [phone]. Thank you for the referral of this patient. Sincerely, Rolly Giordano, PT, Cert MDT, OCS Balance/Gait/Functional tests - Balance/Special Test Scores Lower Extremity Functional Score: 38
== END 2022-06-05 19:00 | disposition home or self-care (01) ==
LOC: PT 15:00
PROVIDERS: PCP Family Medicine
DX: M17.12 Unilateral primary osteoarthritis, left knee (principal)
CPT/HCPCS: 97110; 97162; 97530

== ENCOUNTER → 2022-06-25 | Outpatient (CLI) | payer OTHER, SELFPAY ==
[2022-06-28 16:09] LABS: Albumin 3.9 g/dL (2.9-4.4); Alpha-1-Globulins 0.3 g/dL (0.0-0.4); Alpha-2-Globulins 0.8 g/dL (0.4-1.0); Gamma Globulin 1.7 g/dL (0.4-1.8); Immunoglobulin A 314 mg/dL (87-352); Immunoglobulin G 1562 mg/dL (586-1602); Immunoglobulin M 196 mg/dL (26-217); PROEL- TOTAL PROTEIN 7.8 g/dL (6.0-8.5)
[2022-06-28 18:32] LABS: Gastrin, Serum 194 pg/mL (0-115)
== END | disposition home or self-care (01) ==
LOC: LAB 12:37
PROVIDERS: PCP Family Medicine; Visit Provider Nurse Practitioner Adult Health
DX: R19.7 Diarrhea, unspecified (principal)
CPT/HCPCS: 36415; 82784; 82941; 84165; 86334

== ENCOUNTER → 2022-06-29 | Outpatient (CLI) | payer OTHER, SELFPAY ==
--- NOTE | 2022-06-29 06:54 | MRI_ITS ---
STUDY: MRI LEFT KNEE REASON FOR EXAM: Female, 51 years old. Knee pain TECHNIQUE: Standardized fat and water weighted pulse sequences were obtained in all 3 orthogonal planes. COMPARISON: X-ray 04/13/2022 FINDINGS: 2 cm complex tear of the posterior horn the medial meniscus with extrusion and maceration of the body the medial meniscus. There is diffuse, greater than 50% thickness articular cartilage loss of the medial femorotibial compartment. Normal medial femoral condyle and tibial plateau. Associated medial capsulitis. Normal medial collateral ligamentous complex (MCL). Normal distal semimembranosus, gracilis and semitendinosus tendons. Normal lateral meniscus. Normal hyaline cartilage of the lateral femorotibial compartment. Normal lateral femoral condyle and tibial plateau. Normal proximal tibiofibular articulation. Normal lateral collateral (fibular) ligament. Normal popliteus tendon. Normal biceps femoris tendon. Normal anterior cruciate ligament (ACL). Normal posterior cruciate ligament (PCL). Shallow trochlear groove with lateral subluxation of patella and edema superolateral Hoffa''s fat pad consistent with patellofemoral maltracking. Normal hyaline cartilage of the patellofemoral compartment. Normal medial and lateral patellar retinaculum. Normal quadriceps tendon. Normal patellar tendon. Normal Hoffa''s fat pad. There is a moderate volume joint effusion. The soft tissues are unremarkable. The otherwise visualized osseous structures are unremarkable. MRI/Lower Ext Joint Only (Routine) IMPRESSION: 1. 2 cm complex tear of the posterior horn the medial meniscus with extrusion and maceration of the body the medial meniscus, moderate chondromalacia, and medial capsulitis. 2. Moderate joint effusion. 3. Patellofemoral maltracking. Electronically Signed: Mannie Mendoza MD at 13:13 EST ,
== END | disposition home or self-care (01) ==
LOC: MRI 06:44
PROVIDERS: PCP Family Medicine
DX: M23.92 Unspecified internal derangement of left knee (principal)
CPT/HCPCS: 73721

== ENCOUNTER → 2022-11-08 | Outpatient (CLI) | payer OTHER, SELFPAY | END | disposition home or self-care (01) | PROVIDERS: PCP Family Medicine; Visit Provider Family Medicine | DX: N39.0 Urinary tract infection, site not specified (principal) | CPT/HCPCS: 87077; 87086; 87088; 87186 ==

== ENCOUNTER → 2022-11-11 | Outpatient (CLI) | payer OTHER, SELFPAY ==
[2022-11-11 16:42] LABS: Thyroid Stim Hormone (TSH) 0.96 uIU/mL (0.358-3.74)
== END | disposition home or self-care (01) ==
LOC: LAB 15:18
PROVIDERS: PCP Family Medicine; Referring Provider Internal Medicine Cardiovascular Disease; Visit Provider Internal Medicine Cardiovascular Disease
DX: R00.2 Palpitations (principal)
CPT/HCPCS: 36415; 84443

== ENCOUNTER → 2022-11-18 | Outpatient (CLI) | payer OTHER, SELFPAY | END | disposition home or self-care (01) | LOC: LABSPEC 16:15 | PROVIDERS: PCP Family Medicine; Referring Provider Family Medicine; Visit Provider Family Medicine | DX: R30.0 Dysuria (principal) | CPT/HCPCS: 87086 ==

== ENCOUNTER → 2022-12-03 | Outpatient (CLI) | payer OTHER, SELFPAY ==
--- NOTE | 2022-12-03 13:06 | ECHOD_ITS ---
Reason For Study: MURMUR Procedure This was a 2D Doppler, Color Flow transthoracic echocardiogram. Exam performed in department. Left Ventricle Normal LV size. Left ventricular systolic function is normal. The estimated ejection fraction is 60 %. Normal diastololic function. No regional wall motion abnormalities noted. Right Ventricle Normal RV size. Normal systolic function. Atria Normal left atrium. Normal right atrium. Mitral Valve Posterior leaflet mitral valve prolapse. Moderate (2+) anteriorly directed mitral valve insufficiency. Tricuspid Valve Normal tricuspid valve. Mild (1+) tricuspid valve insufficiency. Pulmonary artery systolic pressure is 40 mmHg. Aortic Valve Trisinus/trileaflet aortic valve. Mild (1+) aortic valve insufficiency. Pulmonic Valve Normal pulmonic valve. Great Vessels Normal aortic root. The pulmonary artery is normal size. Normal inferior vena cava. Pericardium/Pleural No pericardial effusion. MMode/2D Measurements & Calculations LVIDd: 5.4 cm IVSd: 1.1 cm Ao root diam: 3.9 cm LVIDs: 3.9 cm LVPWd: 1.1 cm RVDd: 3.4 cm FS: 27.4 % LAV(MOD-bp): 71.3 ml LVAd ap4: 28.9 cm2 LVAd ap2: 32.5 cm2 LAV(MOD-bp) Indexed: 36.1 ml/m2 LVLd ap4: 6.9 cm LVLd ap2: 7.7 cm LAV(MOD-sp2): 69.0 ml EDV(MOD-sp4): 96.7 ml EDV(MOD-sp2): 111.3 ml LAV(MOD-sp4): 63.6 ml EDV(sp4-el): 101.9 ml EDV(sp2-el): 116.7 ml LVAs ap4: 15.7 cm2 LVAs ap2: 17.2 cm2 LVLs ap4: 5.8 cm LVLs ap2: 6.1 cm ESV(MOD-sp4): 36.0 ml ESV(MOD-sp2): 41.3 ml ESV(sp4-el): 35.7 ml ESV(sp2-el): 41.2 ml EF(MOD-sp4): 62.7 % EF(MOD-sp2): 62.9 % EF(sp4-el): 65.0 % SV(MOD-sp4): 60.7 ml SV(MOD-sp2): 70.0 ml SV(sp4-el): 66.2 ml LA dimension(2D): 3.9 cm LA A4 area: 19.9 cm2 RA A4 area: 16.5 cm2 Time Measurements MV dec time: 0.14 sec Doppler Measurements & Calculations MV E max dev: 142.5 cm/sec Lat Peak E' Dev: 12.3 cm/sec Med Peak E' Dev: 9.0 cm/sec MV A max dev: 74.0 cm/sec E/E' lat: 11.6 E/E' med: 15.8 MV E/A: 1.9 MV V2 max: 144.6 cm/sec MV dec slope: 1012 cm/sec2 Ao V2 max: 114.0 cm/sec MV max P.4 mmHg Ao max P.2 mmHg MV V2 mean: 77.0 cm/sec Ao V2 mean: 72.7 cm/sec MV mean P.8 mmHg Ao mean P.4 mmHg MV V2 VTI: 34.3 cm Ao V2 VTI: 21.5 cm AV (velocity ratio): 0.89 LV V1 max: 84.8 cm/sec MR max dev: 459.1 cm/sec PA V2 max: 69.4 cm/sec LV V1 max P.9 mmHg MR max P.3 mmHg LV V1 mean P.5 mmHg MR mean dev: 339.4 cm/sec LV V1 mean: 56.2 cm/sec MR mean P.1 mmHg LV V1 VTI: 19.1 cm MR VTI: 149.4 cm TR max dev: 296.6 cm/sec TR max P.2 mmHg ECHO/Echo Complete Interpretation Summary Normal LV size. Left ventricular systolic function is normal. The estimated ejection fraction is 60 %. Normal diastololic function. Posterior leaflet mitral valve prolapse. Moderate (2+) anteriorly directed mitral valve insufficiency. Ordering Physician: Malika Samuels Referring Physician: Tza Sheehan Performed By: Carla Holcomb DAVID, RVT
== END | disposition home or self-care (01) ==
PROVIDERS: PCP Family Medicine; Referring Provider Internal Medicine Cardiovascular Disease; Visit Provider Internal Medicine Cardiovascular Disease
DX: Z01.810 Encounter for preprocedural cardiovascular examination (principal); R01.1 Cardiac murmur, unspecified; E78.00 Pure hypercholesterolemia, unspecified
CPT/HCPCS: 93306

== ENCOUNTER 2022-12-18 07:18 | Emergency (ER) | payer OTHER, SELFPAY ==
[2022-12-18 07:19] VITALS: BP 175/87; PULSE 79; RESP 14; TEMP 36.6; O2SAT 97; BMI 26.9
--- NOTE | 2022-12-18 07:31 | EDS_ITS ---
HPI HPI - GI History of Present Illness Chief Complaint: Abd Pain Informant: patient Abdominal Pain/Flank Pain Onset: Days (3-4) Context: Gradual Onset Timing: Continuous Quality: Cramping Location: Diffuse Current Severity: Moderate Maximum Severity: Moderate Worsened by: Nothing Relieved by: Nothing Nausea/Vomiting/Emesis GI Symptom: Negative for Nausea or Vomiting Diarrhea/Melena/Hematochezia GI Symptom: Positive for Diarrhea; Negative for Melena or Hematochezia Severity: Severe Associated Symptoms Associated Symptoms: Negative for Dysuria, Frequency, Hematuria or Urgency Narrative Narrative: 52-year-old female presenting with 3 to 4 days of diarrhea more than 10 bouts per day, watery, yellow nonbloody, started after she last [place] wings at the airport [place] from [place]. She rarely ate any seafood there which she typically does not do, her went with her and he has had no diarrhea as a similar meals similar places. She is having cramping everywhere no fevers, melena or blood, or nausea/vomiting. She last was on antibiotics the month prior for diverticulitis, she needed 2 rounds of antibiotics because after the first 1 it did not get better. She denies any focal pain now. History of C. difficile colitis. [facility] Medical History Abdominal pain Alcohol use Anemia Arthritis Attention-deficit hyperactivity disorder, unspecified type Cardiac murmur Cardiology follow-up encounter Cervical radiculopathy Chronic cough Depression Dietary restriction Displaced fracture of neck of right second metacarpal bone Drug overdose, multiple drugs Elevated liver enzymes Essential hypertension Former smoker History of echocardiogram History of edema History of ganglion cyst History of hiatal hernia History of pain when walking History of rheumatic fever History of steroid therapy History of stress test History of suicide attempt History of vomiting Hx of diarrhea Hypertension Left knee pain Left knee pain Leg cramps Loss of consciousness Migraine headache Migraines Nonrheumatic mitral (valve) prolapse Osteoarthritis of left knee Patellofemoral syndrome, right Preoperative cardiovascular examination Psoriasis Pure hypercholesterolemia, unspecified Restless legs Rheumatic fever without heart involvement Right knee pain Synovial cyst of popliteal space [Dc], left knee Tear of medial meniscus of left knee Tension-type headache, unspecified, not intractable Unspecified abdominal pain Wears glasses Home Medications desvenlafaxine succinate 25 mg tablet,extended release 24 hr 50 mg PO QHS 11/18/15 [History Last Taken Unknown] rizatriptan 10 mg tablet (Maxalt) 10 mg PO PRN PRN MIGRAINES 02/09/21 [History Last Taken Unknown] topiramate 50 mg tablet 75 mg PO QHS 02/09/21 [History Last Taken Unknown] pantoprazole 40 mg tablet,delayed release 40 mg PO QAM #90 tabs 07/31/22 [Rx Last Taken Unknown] losartan 50 mg tablet 50 mg PO BID 11/04/22 [History Last Taken Unknown] abatacept 125 mg/mL subcutaneous auto-injector (Orencia ClickJect) 125 mg subcut QWEEK 11/11/22 [History Last Taken Unknown] amlodipine 10 mg tablet 5 mg PO DAILY 11/11/22 [History Last Taken Unknown] metoprolol tartrate 25 mg tablet 25 mg PO BID #60 tabs 11/11/22 [Rx Last Taken Unknown] colestipol 1 gram tablet 4 g PO BID 11/25/22 [History Last Taken Unknown] dicyclomine 10 mg capsule 20 mg PO Q6H PRN abdominal pain #20 CAPSULES 12/18/22 [Rx Last Taken Unknown] Allergy/AdvReac Type Severity Reaction Status Date / Time hydrocodone [From Vicodin] Allergy Nausea Verified 12/06/22 13:04 Penicillins [PCN] Allergy Hives Verified 12/06/22 13:04 hyoscyamine AdvReac Intermediate emesis Verified 12/06/22 13:04 Family History Sister Hypertension Mother Thyroid disorder MVP (mitral valve prolapse) SVT (supraventricular tachycardia) Father Hypertension Hyperlipidemia Cancer Prostate Surgical History History of cholecystectomy (~03/2021) History of esophagogastroduodenoscopy (EGD) History of hysterectomy Hx of colonoscopy Hx of foot surgery Hx of rotator cuff surgery Hx of tonsillectomy Hx of tubal ligation 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 Smoking Status: Former smoker quit date: 11/27/11 alcohol intake: current alcohol intake frequency: holidays/special occasions only substance use type: does not use caffeine: Yes (2 cups daily) ROS ROS ED Constitutional Constitutional ED: Reports malaise; Denies chills or fever(s) Eyes Eyes: Denies change in vision or diplopia ENT ENT ED: Denies rhinorrhea or sore throat Cardiovascular Cardiovascular: Denies chest pain or palpitations Respiratory/Chest Respiratory/Chest: Denies cough or dyspnea Gastrointestinal Gastrointestinal: Reports abdominal pain, bloating and diarrhea; Denies melena, nausea or vomiting Genitourinary Genitourinary ED: Denies dysuria or hematuria Musculoskeletal Musculoskeletal: Denies arthralgias, back pain, myalgias or neck pain Integumentary Denies abscess or rash Neurologic Neurologic: Denies headache(s), paresthesias or weakness Psychiatric Psychiatric: Denies anxiety or suicidal thoughts EXAM Physical Exam Const Vital Signs: 12/18/22 07:19 12/18/22 09:18 Temperature 98 F Temperature Source Temporal Pulse Rate 79 Respiratory Rate 14 Blood Pressure 175/87 H 158/84 H Blood Pressure Mean 116 108 Pulse Ox 97 Oxygen Delivery Method Room Air Positive well nourished and well developed Constitutional Narrative: Well-appearing General Appearance ED: well developed and NAD HEENT Reports moist mucous membranes normocephalic and atraumatic Eyes PERRL and EOMs intact bilaterally Neck full ROM and supple Resp normal respiratory effort and clear to auscultation bilaterally Cardio regular rate, regular rhythm and no murmurs Rate: Negative for tachycardic GI non-tender and non-distended GI Narrative: Benign abdomen with hyperactive bowel sounds Auscultation: hyperactive bowel sounds Palpation: soft Back/Spine no CVA tenderness General Back: other FROM Extremity normal to inspection General Extremety ED: Negative for edema, pulses abnormal or tenderness General Extremity: Negative for edema or pulses abnormal Neuro oriented x3, CN's II-XII intact bilaterally and no sensory deficits noted Sensorium / Orientation: awake and alert Motor Exam: strength 5/5 throughout Skin no rashes or lesions noted and no wounds MDM MDM MDM Narrative Medical decision making narrative: Basic labs sent and unremarkable except for a slightly low potassium likely due to loss, she was given some oral potassium as well as dicyclomine and simethicone and discharged with Toradol for intermittent cramping which helped. She was amenable to waiting until we could get some stool from her and sending it for testing to differentiate possible infectious etiologies. Her C. difficile came back negative, and in addition the sample that she gave us was slightly formed and did not smell foul like C. difficile, so I believe the negative test is a true negative. Furthermore, we were able to also get enteric bacterial PCR, which is all negative. Given this I would not treat the patient empirically with antibiotics, supportive care advised, Imodium I think would be okay, this is more likely to be viral in etiology at this time, even if bacterial I would not treat her with an antibiotic given the risk-benefit ratio and history of C. difficile. Close a patient follow-up advised if it persist. Lab Data Attestation: I reviewed the patient's lab results. Labs: Laboratory Results - last 24 hr 12/18/22 12/18/22 07:44 07:44 WBC 6.1 RBC 4.45 Hgb 14.5 Hct 42.9 MCV 96.4 MCH 32.6 H MCHC 33.8 RDW Std Deviation 43.3 RDW Coeff of Ernesto 12.1 Plt Count 213 MPV 9.6 Immature Gran % (Auto) 0.200 Neut % (Auto) 48.7 Lymph % (Auto) 33.6 [place] % (Auto) 10.2 H Eos % (Auto) 6.3 H Baso % (Auto) 1.0 Absolute Neuts (auto) 3.0 Absolute Lymphs (auto) 2.04 Nucleated RBC % 0 Sodium 140 Potassium 3.3 L Chloride 109 H Carbon Dioxide 19.0 L Anion Gap 12 BUN 12 Creatinine 0.73 Estim Creat Clear Calc 93.14 Est GFR (MDRD) Af Amer 107 Est GFR (MDRD) Non-Af 88 BUN/Creatinine Ratio 16.4 Glucose 104 Calcium 8.9 Total Bilirubin 0.40 AST 27 ALT 33 Alkaline Phosphatase 75 Total Protein 7.3 Albumin 3.2 Globulin 4.1 Albumin/Globulin Ratio 0.8 L Discharge Plan Triage Chief Complaint: Abd Pain ED Provider: Florin Bowles Dx/Rx/DC Orders Clinical Impression: Acute diarrhea Instructions: Treating Diarrhea Prescriptions: New dicyclomine 10 mg capsule 20 mg PO Q6H PRN (Reason: abdominal pain) Qty: 20 0RF No Action rizatriptan [Maxalt] 10 mg tablet 10 mg PO PRN PRN (Reason: MIGRAINES) Orencia ClickJect 125 mg/mL auto-injector 125 mg subcut QWEEK amlodipine 10 mg tablet 5 mg PO DAILY Label Comments: take 1 tablet by mouth once daily metoprolol tartrate 25 mg tablet 25 mg PO BID Qty: 60 12RF colestipol 1 gram tablet 4 g PO BID losartan 50 mg tablet 50 mg PO BID topiramate 50 mg tablet 75 mg PO QHS Label Comments: Migraine desvenlafaxine succinate 25 MG tablet extended release 24 hr 50 mg PO QHS pantoprazole 40 mg tablet,delayed release (DR/EC) 40 mg PO QAM Qty: 90 1RF Primary Care Provider: Taz Sheehan Referrals: Taz Sheehan, DO [Primary Care Provider] - 3-5 Days if not improving Activity Restrictions/Additional Instructions: Would be safe to try Imodium if you need to for the diarrhea. Disposition Disposition: Home, Self Care
[2022-12-18] MEDS: 0.9% Normal Saline 1,000 ML 1000 ML IV (07:42)
[2022-12-18] MEDS: Dicyclomine 10 MG Capsule 20 MG PO ×2 (07:42→10:43)
[2022-12-18 07:57] LABS: Absolute Lymphocyte Count 2.04 X10^3/uL (0.83-4.51); Basophil# 0.06 X10^3/uL; Eosinophil# 0.38 X10^3/uL; Eosinophils% 6.3 % (0-5); Hematocrit 42.9 % (37-47); Hemoglobin 14.5 g/dL (12.0-15.0); Lymphocyte # 2.04 X10^3/ul (0.83-4.51); Lymphocyte % 33.6 % (19-41); Mean Corp Hgb Conc 33.8 g/dL (32-36); Mean Corpuscular Hgb 32.6 pg (27.0-32.0); Mean Corpuscular Volume 96.4 fL (81-99); Mean Platelet Vol. 9.6 fl (6.2-12.0); Monocyte# 0.62 X10^3/uL; Monocyte% 10.2 % (0-10); NRBC Flagged by Analyzer 0 % (0-5); Neutrophil # 2.97 X10^3/uL (2.7-7.7); Neutrophil % 48.7 % (47-70); Platelet Count 213 K/mm3 (150-450); RBC Distribution Width CV 12.1 % (11.6-14.6); RBC Distribution Width SD 43.3 fl (35.1-43.9); Red Blood Count 4.45 M/mm3 (4.2-5.4); White Blood Count 6.1 K/mm3 (4.4-11.0)
[2022-12-18 08:12] LABS: ALB/GLOB Ratio 0.8 RATIO (0.9-2.4); AST(SGOT) 27 U/L (15-37); Alanine Aminotransfer ALT/SGPT 33 U/L (13-56); Albumin, Serum 3.2 g/dL (3.2-5.0); Alkaline Phosphatase 75 U/L (45-117); Anion Gap 12 (5-15); BUN 12 mg/dL (7-18); BUN/Creat Ratio 16.4 RATIO (10-20); Calcium,Total 8.9 mg/dL (8.5-10.1); Chloride 109 mmol/L (98-107); Creatinine, Serum 0.73 mg/dL (0.55-1.02); EST Glomerular Filtration Rate 88 mL/min (>60); Est Glom Filt Rate - Afr Amer 107 mL/min (>60); Estimated Creatinine Clearance 93.14 ml/min; Globulin 4.1 g/dL (2.2-4.2); Glucose 104 mg/dL (74-106); Potassium 3.3 mmol/L (3.5-5.1); Protein, Total 7.3 g/dL (6.4-8.2); Sodium Level 140 mmol/L (136-145)
[2022-12-18] MEDS: Potassium Chloride Oral Tablet 20 MEQ 40 MEQ PO (09:02)
[2022-12-18 09:18] VITALS: BP 158/84
[2022-12-18] MEDS: Ketorolac 15 MG/ML Vial IV (10:43)
[2022-12-18 12:08] VITALS: BP 126/74; PULSE 81; RESP 16; O2SAT 97
== END 2022-12-18 12:15 | disposition home or self-care (01) ==
PROVIDERS: Emergency Provider Emergency Medicine; PCP Family Medicine; Visit Provider Emergency Medicine
DX: R19.7 Diarrhea, unspecified (principal); Z87.891 Personal history of nicotine dependence; I10 Essential (primary) hypertension; E78.00 Pure hypercholesterolemia, unspecified; R10.9 Unspecified abdominal pain
CPT/HCPCS: 80053; 85025; 87493; 87506; 96361; 96374; 99284; J7030; A4216

== ENCOUNTER 2022-12-24 23:44 | Emergency (ER) | payer OTHER, SELFPAY ==
[2022-12-24 23:45] VITALS: BP 152/141; PULSE 166; RESP 15; TEMP 36.8; O2SAT 98; BMI 27.5
[2022-12-25] MEDS: 0.9% Normal Saline 1,000 ML 999 ML IV (00:08)
[2022-12-25] MEDS: Adenosine 6 MG/2 ML Syringe IV (00:09)
[2022-12-25 00:10] LABS: Absolute Lymphocyte Count 3.25 X10^3/uL (0.83-4.51); Basophil# 0.09 X10^3/uL; Basophil% 0.9 % (0-1); Eosinophil# 0.43 X10^3/uL; Eosinophils% 4.4 % (0-5); Lymphocyte # 3.25 X10^3/ul (0.83-4.51); Lymphocyte % 33.4 % (19-41); Mean Corp Hgb Conc 34.1 g/dL (32-36); Mean Corpuscular Hgb 32.8 pg (27.0-32.0); Mean Corpuscular Volume 96.3 fL (81-99); Mean Platelet Vol. 9.8 fl (6.2-12.0); Monocyte# 0.99 X10^3/uL; Monocyte% 10.2 % (0-10); NRBC Flagged by Analyzer 0 % (0-5); Neutrophil # 4.95 X10^3/uL (2.7-7.7); Neutrophil % 50.9 % (47-70); Platelet Count 306 K/mm3 (150-450); RBC Distribution Width CV 12.1 % (11.6-14.6); RBC Distribution Width SD 42.8 fl (35.1-43.9); Red Blood Count 4.57 M/mm3 (4.2-5.4); White Blood Count 9.7 K/mm3 (4.4-11.0)
[2022-12-25 00:37] LABS: Anion Gap 17 (5-15); BUN 14 mg/dL (7-18); BUN/Creat Ratio 15.5 RATIO (10-20); Calcium,Total 9.4 mg/dL (8.5-10.1); Chloride 103 mmol/L (98-107); EST Glomerular Filtration Rate 69 mL/min (>60); Est Glom Filt Rate - Afr Amer 84 mL/min (>60); Estimated Creatinine Clearance 75.55 ml/min; Glucose 104 mg/dL (74-106); Magnesium 2.1 mg/dL (1.6-2.6); Potassium 3.2 mmol/L (3.5-5.1); Sodium Level 138 mmol/L (136-145)
[2022-12-25 00:38] VITALS: BP 124/88; PULSE 92; RESP 13; O2SAT 96
[2022-12-25] MEDS: Potassium Chloride Oral Tablet 20 MEQ 40 MEQ PO (01:10)
--- NOTE | 2022-12-25 01:12 | EX.ED.DYSGE1 ---
HPI History of Present Illness Chief Complaint: Chest Pain Informant: patient and spouse/S.O. Narrative Narrative: Patient is a 52-year-old female with past medical history of mitral valve prolapse hypertension and previous SVT. She states multiple family was have SVT and that he will occasionally go into a once or twice a year will last for a few minutes and then resolve. She states roughly an hour and a half ago she felt her heart began to race and states it felt similar to her previous SVT episodes. She states she waited for a few minutes but the heart racing did not improve. She states there has been no illicit drug use or excessive stimulant use. She reports that because the palpitations have persisted for over an hour which is abnormal for her she presents for evaluation [facility] Medical History (Updated 12/25/22 @ 04:[address] Jimbo Zavaleta, ) Abdominal pain Alcohol use Anemia Arthritis Attention-deficit hyperactivity disorder, unspecified type Cardiac murmur Cardiology follow-up encounter Cervical radiculopathy Chronic cough Depression Dietary restriction Displaced fracture of neck of right second metacarpal bone Drug overdose, multiple drugs Elevated liver enzymes Essential hypertension Former smoker GERD (gastroesophageal reflux disease) History of echocardiogram History of edema History of ganglion cyst History of hiatal hernia History of pain when walking History of rheumatic fever History of steroid therapy History of stress test History of suicide attempt History of vomiting Hx of diarrhea Hypertension Irregular heart beat Left knee pain Left knee pain Leg cramps Loss of consciousness Migraine headache Migraines Nonrheumatic mitral (valve) prolapse Osteoarthritis of left knee Patellofemoral syndrome, right Preoperative cardiovascular examination Psoriasis Psoriatic arthritis Pure hypercholesterolemia, unspecified Restless legs Rheumatic fever without heart involvement Right knee pain Synovial cyst of popliteal space [Dc], left knee Tear of medial meniscus of left knee Tension-type headache, unspecified, not intractable Unspecified abdominal pain Wears glasses Home Medications desvenlafaxine succinate 25 mg tablet,extended release 24 hr 50 mg PO QHS 11/18/15 [History Last Taken Unknown] rizatriptan 10 mg tablet (Maxalt) 10 mg PO PRN PRN MIGRAINES 02/09/21 [History Last Taken Unknown] topiramate 50 mg tablet 75 mg PO QHS 02/09/21 [History Last Taken Unknown] pantoprazole 40 mg tablet,delayed release 40 mg PO QAM #90 tabs 07/31/22 [Rx Last Taken Unknown] losartan 50 mg tablet 100 mg PO DAILY 11/04/22 [History Last Taken Unknown] metoprolol tartrate 25 mg tablet 25 mg PO BID #60 tabs 11/11/22 [Rx Last Taken Unknown] colestipol 1 gram tablet 4 g PO BID 11/25/22 [History Last Taken Unknown] Allergy/AdvReac Type Severity Reaction Status Date / Time hydrocodone [From Vicodin] Allergy Nausea Verified 12/24/22 23:47 Penicillins [PCN] Allergy Hives Verified 12/24/22 23:47 hyoscyamine AdvReac Intermediate emesis Verified 12/24/22 23:47 Family History Sister Hypertension Mother Thyroid disorder MVP (mitral valve prolapse) SVT (supraventricular tachycardia) Father Hypertension Hyperlipidemia Cancer Prostate Surgical History History of cholecystectomy (~03/2021) History of esophagogastroduodenoscopy (EGD) History of hysterectomy Hx of colonoscopy Hx of foot surgery Hx of rotator cuff surgery Hx of tonsillectomy Hx of tubal ligation 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 Smoking Status: Former smoker quit date: 11/27/11 alcohol intake: current alcohol intake frequency: holidays/special occasions only substance use type: does not use caffeine: Yes (2 cups daily) ROS ROS ED Constitutional Constitutional ED: Denies chills or fever(s) ENT ENT ED: Denies sore throat Cardiovascular Cardiovascular: Reports palpitations and racing heartbeat; Denies chest pain Respiratory/Chest Respiratory/Chest: Denies cough or dyspnea Gastrointestinal Gastrointestinal: Denies abdominal pain, diarrhea, nausea or vomiting Genitourinary Genitourinary ED: Denies dysuria Musculoskeletal Musculoskeletal: Denies myalgias Integumentary Denies rash Neurologic Neurologic: Denies headache(s) Hematologic/Lymphatic Hematologic/Lymphatic: Denies easy bleeding or easy bruising EXAM Physical Exam Const Vital Signs: 12/24/22 23:45 12/25/22 00:38 12/25/22 01:15 Temperature 98.2 F Temperature Source Temporal Pulse Rate 166 H 92 104 H Respiratory Rate 15 13 23 H Blood Pressure 152/141 H 124/88 H 108/76 Blood Pressure Mean 144 100 86 Pulse Ox 98 96 96 Oxygen Delivery Method Room Air Room Air Room Air 12/25/22 01:28 Temperature Temperature Source Pulse Rate 102 H Respiratory Rate 16 Blood Pressure 108/76 Blood Pressure Mean Pulse Ox 97 Oxygen Delivery Method Positive well nourished and well developed General Appearance ED: well developed HEENT Reports moist mucous membranes Eyes PERRL and EOMs intact bilaterally Neck supple Resp normal respiratory effort and clear to auscultation bilaterally Cardio regular rhythm Rate: tachycardic and other Other Details: Radial pulses are plus 2 out of 4 bilaterally are equal and symmetric GI normal to inspection, nondistended, normoactive bowel sounds, non-tender, non-distended and no masses GI Narrative: No voluntary guarding or rigidity no pulsatile mass Auscultation: normoactive bowel sounds Palpation: soft Extremity normal to inspection Extremity Narrative: No asymmetric edema no pitting edema negative Homans' sign bilaterally Neuro oriented x3, CN's II-XII intact bilaterally and no sensory deficits noted Sensorium / Orientation: alert Motor Exam: strength 5/5 throughout Psych mental status grossly normal Skin no rashes or lesions noted MDM MDM MDM Narrative Medical decision making narrative: Patient presented to the ER with a heart rate of approximate 170 and heart monitor and EKG confirmed SVT. Vagal maneuvers were attempted and were unsuccessful. Patient does report a history of this but in order to ensure that there is no significant cause such as anemia electrolyte derangement or acute kidney injury I did elect to perform a basic work-up. Labs revealed slight hypokalemia at 3.2 which was replaced orally. IV hydration was given as well and after 6 mg of adenosine she converted from SVT to normal sinus rhythm. Patient was watched in the ER for approximately an hour and a half and there was no return of SVT and as her laboratory studies revealed no significant findings she is otherwise safe for discharge History & Record Review Discussion w/independent historian: Patient and Significant other Lab Data Attestation: I reviewed the patient's lab results. Labs: Laboratory Results - last 24 hr 12/24/22 12/24/22 23:58 23:58 WBC 9.7 RBC 4.57 Hgb 15.0 Hct 44.0 MCV 96.3 MCH 32.8 H MCHC 34.1 RDW Std Deviation 42.8 RDW Coeff of Ernesto 12.1 Plt Count 306 MPV 9.8 Immature Gran % (Auto) 0.200 Neut % (Auto) 50.9 Lymph % (Auto) 33.4 [place] % (Auto) 10.2 H Eos % (Auto) 4.4 Baso % (Auto) 0.9 Absolute Neuts (auto) 5.0 Absolute Lymphs (auto) 3.25 Nucleated RBC % 0 Sodium 138 Potassium 3.2 L Chloride 103 Carbon Dioxide 18.0 L Anion Gap 17 H BUN 14 Creatinine 0.90 Estim Creat Clear Calc 75.55 Est GFR (MDRD) Af Amer 84 Est GFR (MDRD) Non-Af 69 BUN/Creatinine Ratio 15.5 Glucose 104 Calcium 9.4 Magnesium 2.1 TSH 3.00 Discharge Plan Triage Chief Complaint: Chest Pain ED Provider: Jimbo Zavaleta Dx/Rx/DC Orders Clinical Impression: Supraventricular tachycardia, Essential hypertension, Acute hypokalemia Instructions: Supraventricular Tachycardia, ED Understanding Supraventricular Tachycardia (SVT) Prescriptions: No Action rizatriptan [Maxalt] 10 mg tablet 10 mg PO PRN PRN (Reason: MIGRAINES) metoprolol tartrate 25 mg tablet 25 mg PO BID Qty: 60 12RF colestipol 1 gram tablet 4 g PO BID losartan 50 mg tablet 100 mg PO DAILY topiramate 50 mg tablet 75 mg PO QHS Label Comments: Migraine desvenlafaxine succinate 25 MG tablet extended release 24 hr 50 mg PO QHS pantoprazole 40 mg tablet,delayed release (DR/EC) 40 mg PO QAM Qty: 90 1RF Primary Care Provider: Taz Sheehan Referrals: Taz Sheehan DO [Primary Care Provider] - Activity Restrictions/Additional Instructions: Please follow-up with your family doctor and discuss need for referral to livestock inspector because of your recurrent SVT. Return to the ER should you have any further concerns Disposition Disposition: Home, Self Care Discharge Date/Time: 12/25/22 01:32
[2022-12-25 01:15] VITALS: BP 108/76; PULSE 104; RESP 23; O2SAT 96
[2022-12-25 01:28] VITALS: BP 108/76; PULSE 102; RESP 16; O2SAT 97
== END 2022-12-25 01:32 | disposition home or self-care (01) ==
PROVIDERS: Emergency Provider Emergency Medicine; PCP Family Medicine; Visit Provider Emergency Medicine
DX: I47.1 Supraventricular tachycardia (principal); E87.6 Hypokalemia; I10 Essential (primary) hypertension; Z87.891 Personal history of nicotine dependence
CPT/HCPCS: 80048; 83735; 84443; 85025; 93005; 96361; 96374; 99284; J7030; J0153

== ENCOUNTER → 2023-01-09 | Outpatient (CLI) | payer OTHER, SELFPAY ==
[2023-01-09 17:54] LABS: Absolute Lymphocyte Count 1.78 X10^3/uL (0.83-4.51); Absolute Neutrophil Count 3.2 X10^3/uL (2.0-7.7); Basophil# 0.06 X10^3/uL; Eosinophil# 0.32 X10^3/uL; Eosinophils% 5.4 % (0-5); Hematocrit 40.9 % (37-47); Hemoglobin 14.5 g/dL (12.0-15.0); Lymphocyte # 1.78 X10^3/ul (0.83-4.51); Lymphocyte % 30.2 % (19-41); Mean Corp Hgb Conc 35.5 g/dL (32-36); Mean Corpuscular Hgb 35.4 pg (27.0-32.0); Mean Corpuscular Volume 99.8 fL (81-99); Mean Platelet Vol. 9.9 fl (6.2-12.0); Monocyte# 0.53 X10^3/uL; NRBC Flagged by Analyzer 0 % (0-5); Neutrophil # 3.18 X10^3/uL (2.7-7.7); Neutrophil % 54.1 % (47-70); Platelet Count 237 K/mm3 (150-450); RBC Distribution Width CV 12.3 % (11.6-14.6); RBC Distribution Width SD 43.8 fl (35.1-43.9); White Blood Count 5.9 K/mm3 (4.4-11.0)
[2023-01-09 18:31] LABS: ALB/GLOB Ratio 0.8 RATIO (0.9-2.4); AST(SGOT) 22 U/L (15-37); Alanine Aminotransfer ALT/SGPT 30 U/L (13-56); Albumin, Serum 3.4 g/dL (3.2-5.0); Alkaline Phosphatase 76 U/L (45-117); Anion Gap 7 (5-15); BUN 15 mg/dL (7-18); BUN/Creat Ratio 16.1 RATIO (10-20); Chloride 109 mmol/L (98-107); Creatinine, Serum 0.93 mg/dL (0.55-1.02); EST Glomerular Filtration Rate 67 mL/min (>60); Est Glom Filt Rate - Afr Amer 81 mL/min (>60); Globulin 4.4 g/dL (2.2-4.2); Glucose 95 mg/dL (74-106); Potassium 3.5 mmol/L (3.5-5.1); Protein, Total 7.8 g/dL (6.4-8.2); Sodium Level 141 mmol/L (136-145)
[2023-01-09 19:23] LABS: Hepatitis B Surface Antibody Non-Reactive; Hepatitis B Surface Antigen Non-Reactive (Nonreactive); Hepatitis C Antibody Non-Reactive (Nonreactive)
[2023-01-13 09:07] LABS: Hepatitis B Core Ab Total Negative (Negative); QNTFERON TB Mitogen Value > 10.00 IU/mL (.); QNTFERON TB Nil Value 0.08 IU/mL (.); QNTFERON TB1+ Ag Value 0.08 IU/mL (.); QNTFERON TB2+ Ag Value 0.09 IU/mL (.); QNTIFERON TB Positive Criteria Negative (Negative)
== END | disposition home or self-care (01) ==
PROVIDERS: PCP Family Medicine; Referring Provider Physician Assistant; Visit Provider Physician Assistant
DX: L40.0 Psoriasis vulgaris (principal); L40.59 Other psoriatic arthropathy; Z79.899 Other long term (current) drug therapy
CPT/HCPCS: 36415; 80053; 85025; 86480; 86704; 86706; 86803; 87340

== ENCOUNTER → 2023-05-12 | Outpatient (CLI) | payer OTHER, SELFPAY ==
--- NOTE | 2023-05-12 12:18 | BI_ITS ---
MAMMOGRAPHY - BILATERAL SCREENING 3-D TOMOSYNTHESIS REASON FOR EXAM: Female, 52 years old. SCREENING PERTINENT HISTORY: No significant family history. TECHNIQUE: 2-D mammograms and 3-D Tomosynthesis of the breast (s) were performed. CAD was performed. COMPARISON: 05/07/2022 FINDINGS: The breast composition is composed of scattered fibroglandular density. Scattered benign calcifications are seen. No dense spiculated masses or suspicious microcalcifications are identified. No architectural distortion is identified. There is no skin thickening or retraction. There has been no significant change since the prior study. BI/SCRN MAMM (CAD)W/CHINTAN BILAT IMPRESSION: No mammographic signs of malignancy. Routine yearly mammograms recommended. ASSESSMENT CATEGORY: BIRADS Category 1: Negative. A letter regarding these results will be sent to the patient by the facility within 30 days. FOLLOW UP RECOMMENDATION: Yearly follow up mammogram recommended. (A) Approximately 10% of breast cancers are not detected by mammography. A normal mammogram should not delay biopsy of a clinically suspicious abnormality. Electronically Signed: Mannie Mendoza MD at 13:57 EDT ,
== END | disposition home or self-care (01) ==
LOC: OPBI 12:16
PROVIDERS: PCP Family Medicine; Referring Provider Family Medicine; Visit Provider Family Medicine
DX: Z12.31 Encounter for screening mammogram for malignant neoplasm of breast (principal)
CPT/HCPCS: 77063; 77067

== ENCOUNTER 2023-11-20 02:48 | Emergency (ER) | payer OTHER, SELFPAY ==
[2023-11-20 02:51] VITALS: BP 117/86; PULSE 94; RESP 16; TEMP 36.6; O2SAT 86; BMI 25.7
[2023-11-20] MEDS: 0.9% Normal Saline (1000mL) 1,000 ML 999 ML IV ×2 (03:19→03:49)
[2023-11-20] MEDS: Ondansetron 4 MG/2 ML Vial IV (03:23)
[2023-11-20 03:31] LABS: Absolute Lymphocyte Count 2.46 X10^3/uL (0.83-4.51); Absolute Neutrophil Count 3.6 X10^3/uL (2.0-7.7); Basophil# 0.05 X10^3/uL; Basophil% 0.7 % (0-1); Eosinophil# 0.17 X10^3/uL; Eosinophils% 2.5 % (0-5); Hematocrit 41.2 % (37-47); Hemoglobin 14.3 g/dL (12.0-15.0); Lymphocyte # 2.46 X10^3/ul (0.83-4.51); Lymphocyte % 35.9 % (19-41); Mean Corp Hgb Conc 34.7 g/dL (32-36); Mean Corpuscular Hgb 32.6 pg (27.0-32.0); Mean Corpuscular Volume 94.1 fL (81-99); Mean Platelet Vol. 9.6 fl (6.2-12.0); Monocyte# 0.55 X10^3/uL; NRBC Flagged by Analyzer 0 % (0-5); Neutrophil % 52.6 % (47-70); Platelet Count 233 K/mm3 (150-450); RBC Distribution Width CV 12.2 % (11.6-14.6); RBC Distribution Width SD 42.4 fl (35.1-43.9); Red Blood Count 4.38 M/mm3 (4.2-5.4); White Blood Count 6.9 K/mm3 (4.4-11.0)
[2023-11-20 03:47] LABS: AST(SGOT) 34 U/L (15-37); Alanine Aminotransfer ALT/SGPT 43 U/L (13-56); Albumin, Serum 3.6 g/dL (3.2-5.0); Alkaline Phosphatase 79 U/L (45-117); Anion Gap 8 (5-15); BUN 17 mg/dL (7-18); BUN/Creat Ratio 20.5 RATIO (10-20); Calcium,Total 9.1 mg/dL (8.5-10.1); Chloride 104 mmol/L (98-107); Creatinine, Serum 0.83 mg/dL (0.55-1.02); EST Glomerular Filtration Rate 76 mL/min (>60); Est Glom Filt Rate - Afr Amer 92 mL/min (>60); Estimated Creatinine Clearance 80.98 ml/min; Globulin 4.4 g/dL (2.2-4.2); Glucose 106 mg/dL (74-106); Lipase 58 U/L (13-75); Magnesium 2.1 mg/dL (1.6-2.6); Potassium 3.1 mmol/L (3.5-5.1); Sodium Level 135 mmol/L (136-145)
[2023-11-20 04:49] VITALS: PULSE 80; RESP 18
--- NOTE | 2023-11-20 05:16 | EX.ED.DYSGE1 ---
HPI History of Present Illness Chief Complaint: Diarrhea Informant: patient and spouse/S.O. Narrative Narrative: Patient is a 53-year-old female with past medical history of SVT hypertension and hyperlipidemia. 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 She states that after taking care of him she began having bouts of watery diarrhea. She states she has been having 5-10 episodes of watery diarrhea per day for the past month. She states that she does not have a known history of intestinal autoimmune disease such as celiac sprue and she denies any previous history of IBS or ulcerative colitis or Crohn's disease. She states that there has been no recent travel outside the country no exposure to livestock and no antibiotic use. She states that she recently saw her family doctor for this issue and was ordered an outpatient C. difficile test but she has been feeling dehydrated based on her recurrent symptoms and therefore comes in for evaluation [facility] Medical History Abdominal pain Alcohol use Anemia Arthritis Attention-deficit hyperactivity disorder, unspecified type Cardiac murmur Cardiology follow-up encounter Cervical radiculopathy Chronic cough Depression Diarrhea Dietary restriction Displaced fracture of neck of right second metacarpal bone Drug overdose, multiple drugs Elevated liver enzymes Essential hypertension Former smoker GERD (gastroesophageal reflux disease) History of echocardiogram History of edema History of ganglion cyst History of hiatal hernia History of pain when walking History of rheumatic fever History of steroid therapy History of stress test History of suicide attempt History of vomiting Hx of diarrhea Hypertension Intermittent palpitations Irregular heart beat Left knee pain Left knee pain Leg cramps Loss of consciousness Migraine headache Migraines Mitral regurgitation Mitral valve prolapse Nonrheumatic mitral (valve) prolapse Osteoarthritis of left knee Patellofemoral syndrome, right Preoperative cardiovascular examination Psoriasis Psoriatic arthritis Pure hypercholesterolemia, unspecified Restless legs Rheumatic fever without heart involvement Right knee pain SVT (supraventricular tachycardia) Synovial cyst of popliteal space [Dc], left knee Tear of medial meniscus of left knee Tension-type headache, unspecified, not intractable Unspecified abdominal pain Wears glasses Home Medications rizatriptan 10 mg tablet (Maxalt) 10 mg PO PRN PRN MIGRAINES 02/09/21 [History Last Taken Unknown] guselkumab 100 mg/mL subcutaneous auto-injector (Tremfya) 100 mg subcut Q8W 04/07/23 [History Last Taken Unknown] topiramate 25 mg tablet 75 mg PO QHS 04/07/23 [History Last Taken Unknown] desvenlafaxine succinate 25 mg tablet,extended release 24 hr 25 mg PO QHS 10/09/23 [History Last Taken Unknown] desvenlafaxine succinate 50 mg tablet,extended release 24 hr 50 mg PO QDAY 10/09/23 [History Last Taken Unknown] losartan 100 mg tablet 100 mg PO QDAY 10/09/23 [History Last Taken Unknown] metoprolol tartrate 50 mg tablet 50 mg PO BID #180 tabs 10/10/23 [Rx Last Taken Unknown] celecoxib 200 mg capsule 200 mg PO DAILY PRN mild pain 11/20/23 [History Last Taken Unknown] diphenoxylate-atropine 2.5 mg-0.025 mg tablet (Lomotil) 1 tab PO 4X/DAY PRN diarrhea 5 days #20 tabs 11/20/23 [Rx Last Taken Unknown] Allergy/AdvReac Type Severity Reaction Status Date / Time hydrocodone [From Vicodin] Allergy Nausea Verified 11/20/23 02:53 Penicillins [PCN] Allergy Hives Verified 11/20/23 02:53 hyoscyamine AdvReac Intermediate emesis Verified 11/20/23 02:53 Family History Sister Hypertension Mother Thyroid disorder MVP (mitral valve prolapse) SVT (supraventricular tachycardia) Father Hypertension Hyperlipidemia Cancer Prostate Surgical History History of cholecystectomy (~03/2021) History of esophagogastroduodenoscopy (EGD) History of hysterectomy Hx of colonoscopy Hx of foot surgery Hx of rotator cuff surgery Hx of tonsillectomy Hx of tubal ligation 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 Smoking Status: Former smoker quit date: 11/27/11 alcohol intake: current alcohol intake frequency: holidays/special occasions only substance use type: does not use caffeine: Yes (2 cups daily) ROS ROS ED Constitutional Constitutional ED: Denies chills or fever(s) Eyes Eyes: Denies change in vision ENT ENT ED: Denies sore throat Cardiovascular Cardiovascular: Denies chest pain or palpitations Respiratory/Chest Respiratory/Chest: Denies cough or dyspnea Gastrointestinal Gastrointestinal: Reports diarrhea; Denies abdominal pain, nausea or vomiting Genitourinary Genitourinary ED: Denies dysuria or hematuria Musculoskeletal Musculoskeletal: Denies myalgias Integumentary Denies rash Neurologic Neurologic: Denies headache(s) or paresthesias Hematologic/Lymphatic Hematologic/Lymphatic: Denies easy bleeding or easy bruising EXAM Physical Exam Const Vital Signs: 11/20/23 02:51 11/20/23 04:49 11/20/23 05:25 Temperature 97.8 F 98.6 F Temperature Source Temporal Pulse Rate 94 80 80 Respiratory Rate 16 18 18 Blood Pressure 117/86 H 111/62 Blood Pressure Mean 96 78 Pulse Ox 86 96 Oxygen Delivery Method Room Air Positive well nourished and well developed General Appearance ED: well developed; Negative for pallor HEENT Reports dry mucous membranes HEENT Narrative: Mucous membranes are dry and tacky No tongue or lip swelling no oral lesions no airway edema or compromise No secondary changes in the posterior pharynx to suggest infection Mouth ED: Yes dry mucous membranes Mouth: dry mucous membranes Eyes PERRL and EOMs intact bilaterally General Eye ED: Negative for scleral icterus Neck supple Neck Narrative: No nuchal rigidity or meningeal signs Resp normal respiratory effort and clear to auscultation bilaterally Cardio regular rate and regular rhythm GI non-tender and non-distended GI Narrative: Abdomen is soft nontender and nondistended with hyperactive bowel sounds No voluntary guarding or rigidity or pulsatile mass Auscultation: hyperactive bowel sounds Palpation: soft Extremity normal to inspection Neuro oriented x3 and CN's II-XII intact bilaterally Sensorium / Orientation: alert Motor Exam: strength 5/5 throughout Psych mental status grossly normal Skin Skin Narrative: Skin turgor is slightly elevated without secondary changes to suggest infection General Skin Exam: Negative for jaundice or pallor MDM MDM MDM Narrative Medical decision making narrative: Patient presented to the ER with stable vitals and a soft nonsurgical abdomen. Therefore I felt no need for emergent imaging studies. She reported direct exposure to her father who had C. difficile and she states she has had watery diarrhea for approximately 4 weeks without other risk factors such as antibiotic use or travel outside the country. Differential diagnosis is for diarrhea secondary to a pathogen such as C. difficile versus E. coli versus Salmonella versus Shigella. There is concern for acute dehydration with acute kidney injury and electrolyte abnormality based on her current symptoms. Secondary to his basic labs were obtained. Lab work showed no white count going against systemic infection and she had no signs of MADAI or clinically significant electrolyte abnormality. Patient was given 2 L of fluid for rehydration and had no bouts of diarrhea while in the ER. Therefore we cannot obtain a C. difficile or stool culture sample. At this time as vitals are stable she has had no bouts of diarrhea and overall laboratory work reveals no clinically significant findings she does not need further evaluated in the ER and she is otherwise safe for discharge History & Record Review Discussion w/independent historian: Patient and Significant other Lab Data Attestation: I reviewed the patient's lab results. Labs: Laboratory Results - last 24 hr 11/20/23 03:20 WBC 6.9 RBC 4.38 Hgb 14.3 Hct 41.2 MCV 94.1 MCH 32.6 H MCHC 34.7 RDW Std Deviation 42.4 RDW Coeff of Ernesto 12.2 Plt Count 233 MPV 9.6 Immature Gran % (Auto) 0.300 Neut % (Auto) 52.6 Lymph % (Auto) 35.9 [place] % (Auto) 8.0 Eos % (Auto) 2.5 Baso % (Auto) 0.7 Absolute Neuts (auto) 3.6 Absolute Lymphs (auto) 2.46 Nucleated RBC % 0 Sodium 135 L Potassium 3.1 L Chloride 104 Carbon Dioxide 23.0 Anion Gap 8 BUN 17 Creatinine 0.83 Estim Creat Clear Calc 80.98 Est GFR (MDRD) Af Amer 92 Est GFR (MDRD) Non-Af 76 BUN/Creatinine Ratio 20.5 H Glucose 106 Calcium 9.1 Magnesium 2.1 Total Bilirubin 0.40 Direct Bilirubin 0.10 AST 34 ALT 43 Alkaline Phosphatase 79 Total Protein 8.0 Albumin 3.6 Globulin 4.4 H Lipase 58 Discharge Plan Triage Chief Complaint: Diarrhea ED Provider: Jimbo Zavaleta Dx/Rx/DC Orders Clinical Impression: Diarrhea, Dehydration Instructions: Treating Diarrhea, ED Dehydration (Adult), ED Diarrhea, Unknown Cause Prescriptions: New diphenoxylate-atropine [Lomotil] 2.5-0.025 mg tablet 1 tab PO 4X/DAY PRN (Reason: diarrhea) 5 Days Qty: 20 0RF No Action rizatriptan [Maxalt] 10 mg tablet 10 mg PO PRN PRN (Reason: MIGRAINES) topiramate 25 mg tablet 75 mg PO QHS Patient Comments: take 3 tablets by mouth at bedtime Tremfya 100 mg/mL auto-injector 100 mg subcut Q8W desvenlafaxine succinate 50 mg tablet extended release 24 hr 50 mg PO QDAY Rx Instructions: Take with 25 mg tablet to = 75 mg qHS losartan 100 mg tablet 100 mg PO QDAY desvenlafaxine succinate 25 mg tablet extended release 24 hr 25 mg PO QHS Rx Instructions: Take with 50 mg tablet to = 75 mg qHS celecoxib 200 mg capsule 200 mg PO DAILY PRN (Reason: mild pain) metoprolol tartrate 50 mg tablet 50 mg PO BID Qty: 180 3RF Primary Care Provider: Taz Sheehan Referrals: Taz Sheehan DO [Primary Care Provider] - Activity Restrictions/Additional Instructions: Please follow-up with your family doctor to discuss further testing such as C. difficile toxin as well as stool culture and potential autoimmune diseases such as celiac sprue if your symptoms persist and return to the ER should you have any further concerns Disposition Disposition: Home, Self Care Discharge Date/Time: 11/20/23 05:27
[2023-11-20 05:25] VITALS: BP 111/62; PULSE 80; RESP 18; TEMP 37; O2SAT 96
== END 2023-11-20 05:27 | disposition home or self-care (01) ==
PROVIDERS: Emergency Provider Emergency Medicine; PCP Family Medicine; Visit Provider Emergency Medicine
DX: R19.7 Diarrhea, unspecified (principal); E86.0 Dehydration; E78.00 Pure hypercholesterolemia, unspecified; Z87.891 Personal history of nicotine dependence; I10 Essential (primary) hypertension; K21.9 Gastro-esophageal reflux disease without esophagitis
CPT/HCPCS: 80048; 80076; 83690; 83735; 85025; 96361; 96374; 99282; J7030; A4216; J2405

== ENCOUNTER → 2023-11-21 | Outpatient (CLI) | payer OTHER, SELFPAY | END | disposition home or self-care (01) | LOC: LABSPEC 08:06 | PROVIDERS: PCP Family Medicine | DX: R19.7 Diarrhea, unspecified (principal) | CPT/HCPCS: 87493 ==

== ENCOUNTER → 2023-12-24 | Outpatient (CLI) | payer OTHER, SELFPAY ==
[2023-12-26 16:10] LABS: QNTFERON TB Mitogen Value > 10.00 IU/mL (.); QNTFERON TB Nil Value 0.05 IU/mL (.); QNTFERON TB1+ Ag Value 0.06 IU/mL (.); QNTFERON TB2+ Ag Value 0.05 IU/mL (.); QNTIFERON TB Positive Criteria Negative (Negative)
== END | disposition home or self-care (01) ==
LOC: MTLAB 14:31
PROVIDERS: PCP Family Medicine; Referring Provider Physician Assistant; Visit Provider Physician Assistant
DX: L40.0 Psoriasis vulgaris (principal); Z71.89 Other specified counseling; Z79.899 Other long term (current) drug therapy
CPT/HCPCS: 36415; 86480

== ENCOUNTER → 2024-01-12 | Outpatient (CLI) | payer OTHER, SELFPAY ==
--- NOTE | 2024-01-12 13:44 | ECHOD_ITS ---
Reason For Study: Palpitations Procedure This was a 2D Doppler, Color Flow transthoracic echocardiogram. Exam performed in department. Left Ventricle Normal size and thickness. The left ventricular ejection fraction is 65 %. Normal diastology for age. Right Ventricle Normal right ventricle. Atria The left atrium is mildly enlarged. Normal right atrium. Mitral Valve Significant prolapse of the posterior mitral valve leaflet. Moderate to severe eccentric mitral valve regurgitation. Recommend cardiac MRI or WALTER for further evaluation. Tricuspid Valve Trivial tricuspid valve insufficiency. Normal pulmonary artery pressure. Aortic Valve Trisinus/trileaflet aortic valve. Pulmonic Valve The pulmonic valve is not well visualized. Great Vessels Mildly dilated aortic root. Pericardium/Pleural No pericardial effusion. MMode/2D Measurements & Calculations LVIDd: 5.3 cm IVSd: 1.1 cm Ao root diam: 3.7 cm LVIDs: 3.0 cm LVPWd: 0.82 cm LA dimension: 3.6 cm RVDd: 3.7 cm FS: 43.0 % LAV(MOD-bp): 76.1 ml LVAd ap4: 26.4 cm2 SV(MOD-sp4): 49.2 ml LAV(MOD-bp) Indexed: 38.8 ml/m2 LVLd ap4: 7.4 cm LAV(MOD-sp2): 74.2 ml EDV(MOD-sp4): 75.0 ml LAV(MOD-sp4): 60.7 ml EDV(sp4-el): 80.0 ml LVAs ap4: 13.3 cm2 LVLs ap4: 5.8 cm ESV(MOD-sp4): 25.8 ml ESV(sp4-el): 25.8 ml EF(MOD-sp4): 65.6 % EF(sp4-el): 67.8 % SV(sp4-el): 54.3 ml LA A4 area: 19.7 cm2 RA A4 area: 17.2 cm2 TAPSE: 2.2 cm Time Measurements MV dec time: 0.21 sec Doppler Measurements & Calculations MV E max dev: 96.9 cm/sec Lat Peak E' Dev: 18.1 cm/sec Med Peak E' Dev: 9.4 cm/sec MV A max dev: 73.6 cm/sec E/E' lat: 5.4 E/E' med: 10.3 MV E/A: 1.3 MV V2 max: 104.8 cm/sec MV P1/2t max dev: 104.8 cm/sec Ao V2 max: 133.5 cm/sec MV max P.4 mmHg MV P1/2t: 67.7 msec Ao max P.1 mmHg MV V2 mean: 57.1 cm/sec MV dec slope: 453.6 cm/sec2 Ao V2 mean: 89.1 cm/sec MV mean P.5 mmHg Ao mean P.6 mmHg MV V2 VTI: 28.0 cm MVA(P1/2t): 3.3 cm2 Ao V2 VTI: 27.4 cm AV (velocity ratio): 0.93 LV V1 max: 116.8 cm/sec PA V2 max: 50.9 cm/sec TR max dev: 235.7 cm/sec LV V1 max P.5 mmHg PA max PG (full): 0.39 mmHg TR max P.2 mmHg LV V1 mean P.7 mmHg LV V1 mean: 75.5 cm/sec LV V1 VTI: 25.6 cm ECHO/Echo Complete Interpretation Summary The left ventricular ejection fraction is 65 %. The left atrium is mildly enlarged. Significant prolapse of the posterior mitral valve leaflet. Moderate to severe eccentric mitral valve regurgitation. Recommend cardiac MRI or WALTER for further evaluation. Mildly dilated aortic root. Ordering Physician: Malika Samuels Referring Physician: Taz Sheehan Performed By: Roverto Dockery and Student
== END | disposition home or self-care (01) ==
LOC: CVS 13:44
PROVIDERS: PCP Family Medicine; Referring Provider Internal Medicine Cardiovascular Disease; Visit Provider Internal Medicine Cardiovascular Disease
DX: I34.0 Nonrheumatic mitral (valve) insufficiency (principal); I10 Essential (primary) hypertension; I34.1 Nonrheumatic mitral (valve) prolapse; R00.2 Palpitations
CPT/HCPCS: 93306

== ENCOUNTER 2024-02-16 09:05 | Day surgery (SDC) | payer OTHER, SELFPAY ==
[2024-01-21 15:20] LABS: Anion Gap 3 (5-15); BUN 14 mg/dL (7-18); BUN/Creat Ratio 17.1 RATIO (10-20); Calcium,Total 9.6 mg/dL (8.5-10.1); Chloride 105 mmol/L (98-107); Creatinine, Serum 0.82 mg/dL (0.55-1.02); EST Glomerular Filtration Rate 77 mL/min (>60); Est Glom Filt Rate - Afr Amer 94 mL/min (>60); Glucose 93 mg/dL (74-106); Potassium 3.6 mmol/L (3.5-5.1); Sodium Level 136 mmol/L (136-145)
--- NOTE | 2024-02-16 09:07 | ECHOTEE_ITS ---
Reason For Study: Mitral Valve Regurgitation Medication WALTER probe 6VT-D (SN [id number]) passed without difficulty. No complications were noted. Cetacaine Topical [place] given X3 orally. Versed 1 mg given slow IVP. Fentanyl 50 mcg given slow IVP. Performed a rapid injection of agitated mix of 9 cc saline and 1cc air to assess for atrial septal defect. Left Ventricle Normal LV size. Left ventricular systolic function is normal. The left ventricular ejection fraction is 65 %. No regional wall motion abnormalities noted. Right Ventricle Normal RV size. Normal systolic function. Atria Bubble contrast study negative for right to left interatrial shunt. The left atrium is moderately enlarged. No thrombus is detected in the left atrial appendage. The right atrium is mildly enlarged. Mitral Valve Moderate mitral valve prolapse, posterior leaflet. Moderately severe (3+) eccentric mitral valve insufficiency. Moderately severe (3+) anteriorly directed mitral valve insufficiency. Tricuspid Valve Normal tricuspid valve. Mild tricuspid valve insufficiency. Aortic Valve Normal aortic valve. Trisinus/trileaflet aortic valve. Pulmonic Valve Normal pulmonic valve. Vessels Normal aortic root. Normal arch. The pulmonary artery is normal size. Normal pulmonary veins. Pericardium No pericardial effusion. ECHO/Echo Transesophageal (WALTER) Interpretation Summary Normal LV size. Left ventricular systolic function is normal. The left ventricular ejection fraction is 65 %. Bubble contrast study negative for right to left interatrial shunt. The left atrium is moderately enlarged. Moderate mitral valve prolapse, posterior leaflet Moderately severe (3+) eccentric mitral valve insufficiency. Moderately severe (3+) anteriorly directed mitral valve insufficiency. Ordering Physician: Jeyson Galvan Referring Physician: Jeyson Galvan Performed By: Cande Gibbons RDCS
== END 2024-02-16 11:35 | disposition home or self-care (01) ==
PROVIDERS: PCP Family Medicine; Referring Provider Nurse Practitioner Family; Visit Provider Nurse Practitioner Family
DX: I34.1 Nonrheumatic mitral (valve) prolapse (principal); I34.0 Nonrheumatic mitral (valve) insufficiency; I47.10 Supraventricular tachycardia, unspecified; R00.2 Palpitations; I10 Essential (primary) hypertension; E78.00 Pure hypercholesterolemia, unspecified; R01.1 Cardiac murmur, unspecified
CPT/HCPCS: 36415; 80048; 93312; 93320; 93325; J7040; A4216

== ENCOUNTER → 2024-05-24 | Outpatient (CLI) | payer OTHER, SELFPAY ==
--- NOTE | 2024-05-24 14:00 | ECHOD_ITS ---
Reason For Study: MITRAL VALVE REPAIR Procedure This was a 2D Doppler, Color Flow transthoracic echocardiogram. Exam performed in department. Left Ventricle Normal size and thickness. The left ventricular ejection fraction is 60 %. No evidence for diastolic dysfunction. Right Ventricle Normal right ventricle. Atria The left atrium is mildly enlarged. Normal right atrium. Mitral Valve When compared with previous study from 01/12/2024, mitral valve posterior leaflet no longer prolapsing. Mild to moderate anteriorly directed eccentric mitral valve regurgitation. Tricuspid Valve Mild tricuspid valve insufficiency. Right ventricular systolic pressure estimated to be 42 mmHg. Aortic Valve Trisinus/trileaflet aortic valve. Pulmonic Valve The pulmonic valve is not well visualized. Great Vessels Normal sized aortic root. Pericardium/Pleural Trivial pericardial effusion. MMode/2D Measurements & Calculations LVIDd: 4.7 cm IVSd: 1.0 cm LVOT diam: 2.2 cm LVIDs: 2.9 cm LVPWd: 0.93 cm LVOT area: 3.8 cm2 RVDd: 3.8 cm FS: 37.8 % asc Aorta Diam: 3.8 cm LAV(MOD-bp): 46.1 ml LVAd ap4: 24.0 cm2 LAV(MOD-bp) Indexed: 23.9 ml/m2 LVLd ap4: 7.7 cm LAV(MOD-sp2): 47.1 ml EDV(MOD-sp4): 60.6 ml LAV(MOD-sp4): 46.3 ml EDV(sp4-el): 63.6 ml LVAs ap4: 14.9 cm2 LVLs ap4: 6.7 cm ESV(MOD-sp4): 28.3 ml ESV(sp4-el): 28.1 ml EF(MOD-sp4): 53.2 % EF(sp4-el): 55.8 % LVAd ap2: 30.4 cm2 SV(MOD-sp4): 32.3 ml SV(MOD-sp2): 55.6 ml LVLd ap2: 8.5 cm SI(MOD-sp4): 16.7 ml/m2 SI(MOD-sp2): 28.9 ml/m2 EDV(MOD-sp2): 90.1 ml EDV(sp2-el): 92.1 ml LVAs ap2: 17.1 cm2 LVLs ap2: 7.1 cm ESV(MOD-sp2): 34.5 ml ESV(sp2-el): 35.1 ml EF(MOD-sp2): 61.7 % SV(sp4-el): 35.5 ml Ao sinus diam: 3.[address] Junction: 3.3 cm LA dimension(2D): 3.2 cm LA A4 area: 17.9 cm2 RA A4 area: 12.0 cm2 TAPSE: 1.7 cm Time Measurements MV dec time: 0.30 sec Doppler Measurements & Calculations MV E max dev: 97.0 cm/sec Lat Peak E' Dev: 6.0 cm/sec Med Peak E' Dev: 5.4 cm/sec MV A max dev: 122.6 cm/sec E/E' lat: 16.2 E/E' med: 17.9 MV E/A: 0.79 MV V2 max: 111.9 cm/sec MV P1/2t max dev: 100.4 cm/sec Ao V2 max: 106.1 cm/sec MV max P.0 mmHg MV P1/2t: 91.8 msec Ao max P.5 mmHg MV V2 mean: 75.0 cm/sec MV dec slope: 320.1 cm/sec2 Ao V2 mean: 73.5 cm/sec MV mean P.5 mmHg MVA(P1/2t): 2.4 cm2 Ao mean P.4 mmHg MV V2 VTI: 28.3 cm Ao V2 VTI: 20.3 cm MVA(VTI): 2.2 cm2 AV (velocity ratio): 0.80 FRANTZ(I,D): 3.0 cm2 FRANTZ(V,D): 3.0 cm2 LV V1 max: 83.4 cm/sec SV(LVOT): 61.4 ml PA V2 max: 53.5 cm/sec LV V1 max P.8 mmHg PA max PG (full): 0.30 mmHg LV V1 mean P.4 mmHg LV V1 mean: 55.6 cm/sec LV V1 VTI: 16.1 cm TR max dev: 263.3 cm/sec TR max P.7 mmHg ECHO/Echo Complete Interpretation Summary The left ventricular ejection fraction is 60 %. The left atrium is mildly enlarged. When compared with previous study from 01/12/2024, mitral valve posterior leafle t no longer prolapsing. Mild to moderate anteriorly directed eccentric mitral valve regurgitation. Mild tricuspid valve insufficiency. Right ventricular systolic pressure estimated to be 42 mmHg. Ordering Physician: Jeyson Galvan Referring Physician: Taz Sheehan Performed By: Cande Gibbons RDCS and Student
== END | disposition home or self-care (01) ==
LOC: CVS 14:00
PROVIDERS: PCP Family Medicine; Referring Provider Nurse Practitioner Family; Visit Provider Nurse Practitioner Family
DX: I10 Essential (primary) hypertension (principal); I47.10 Supraventricular tachycardia, unspecified; I34.1 Nonrheumatic mitral (valve) prolapse; Z98.890 Other specified postprocedural states
CPT/HCPCS: 93306

== ENCOUNTER → 2024-05-27 | Outpatient (CLI) | payer OTHER, SELFPAY ==
[2024-05-27 12:44] LABS: Cholesterol 248 mg/dL (200); High Density Lipoprotein 70 mg/dL; Triglycerides 170 mg/dL; Very Low Density Lipoprotein 34 mg/dL (5-40)
== END | disposition home or self-care (01) ==
LOC: BFHLAB 10:05
PROVIDERS: PCP Family Medicine; Referring Provider Family Medicine; Visit Provider Family Medicine
DX: Z00.00 Encounter for general adult medical examination without abnormal findings (principal); R53.83 Other fatigue
CPT/HCPCS: 36415; 80061; 84443

== ENCOUNTER → 2024-06-17 | Outpatient (CLI) | payer OTHER, SELFPAY ==
--- NOTE | 2024-06-17 12:59 | PCM.CR.HP2 ---
CR - History & Physical General Arrival date:: 06/17/24 Arrival time:: 12:59 Date of Referral:: 05/25/24 Date of CR Evaluation:: 06/17/24 Referring Physician: Dr. Samuels Primary Diagnosis: heart valve repair History of Present Cardiac Event Onset Date Heart valve replacement or repair:: Yes (04/14/24 onset) Medications Ambulatory Orders ?Medication ?Instructions ?Recorded rizatriptan 10 mg tablet (Maxalt) 10 mg PO PRN PRN MIGRAINES 02/09/21 guselkumab 100 mg/mL subcutaneous 100 mg subcut Q8W 04/07/23 auto-injector (Tremfya) topiramate 25 mg tablet 75 mg PO QHS 04/07/23 desvenlafaxine succinate 25 mg 25 mg PO QHS 10/09/23 tablet,extended release 24 hr desvenlafaxine succinate 50 mg 50 mg PO QDAY 10/09/23 tablet,extended release 24 hr celecoxib 200 mg capsule 200 mg PO DAILY PRN mild pain 11/20/23 aspirin 81 mg tablet,delayed 81 mg PO QDAY 05/10/24 release (Adult Aspirin Regimen) pantoprazole 40 mg tablet,delayed 40 mg PO QDAY 05/10/24 release amlodipine 5 mg tablet 5 mg PO QDAY #30 tabs 06/01/24 losartan 100 mg tablet 100 mg PO QDAY #90 tabs 06/10/24 metoprolol tartrate 100 mg tablet 100 mg PO BID #60 tabs 06/10/24 Allergies Allergies ixekizumab Allergy (Intermediate, Unverified 05/25/24 13:02) Swelling hydrocodone (From Vicodin) Allergy (Verified 05/25/24 13:02) Nausea Penicillins (PCN) Allergy (Verified 05/25/24 13:02) Hives hyoscyamine Adverse Reaction (Intermediate, Verified 05/25/24 13:02) emesis Sleep Disorder Evaluation Hx of Sleep Apnea: No Do you snore loudly (louder than talking or can be heard through closed doors)?: No Do you often feel tired/ fatigued/ sleepy during daytime?: No Has anyone observed you stop breathing during sleep?: No History of Hypertension (for STOP score): Yes STOP Results: Negative Advanced Directives Advanced Directives Power of Real Estate Transaction Manager: Yes Living Will: Yes Advance Directives Information Provided: Yes Advance Directives on File: No DNR Order?:: No Past Medical History Covid-19 Screening Physicial Symptoms Other Clinical Concerns Exposure Risk Pertinent Comorbidities Has a serious heart condition:: Yes Past Medical Illness Medical History Abdominal pain Alcohol use Anemia Arthritis Attention-deficit hyperactivity disorder, unspecified type Cardiac murmur Cardiology follow-up encounter Cervical radiculopathy Chronic cough Depression Diarrhea Dietary restriction Displaced fracture of neck of right second metacarpal bone Drug overdose, multiple drugs Elevated liver enzymes Essential hypertension Former smoker GERD (gastroesophageal reflux disease) History of echocardiogram History of edema History of ganglion cyst History of hiatal hernia History of pain when walking History of rheumatic fever History of steroid therapy History of stress test History of suicide attempt History of vomiting Hx of diarrhea Hypertension Intermittent palpitations Irregular heart beat Left knee pain Left knee pain Leg cramps Loss of consciousness Migraine headache Migraines Mitral regurgitation Mitral valve prolapse Nonrheumatic mitral (valve) prolapse Osteoarthritis of left knee Patellofemoral syndrome, right Preoperative cardiovascular examination Psoriasis Psoriatic arthritis Pure hypercholesterolemia, unspecified Restless legs Rheumatic fever without heart involvement Right knee pain SVT (supraventricular tachycardia) Synovial cyst of popliteal space [Dc], left knee Tear of medial meniscus of left knee Tension-type headache, unspecified, not intractable Unspecified abdominal pain Wears glasses Past Surgical History Surgical History History of cholecystectomy (~03/2021) History of esophagogastroduodenoscopy (EGD) History of hysterectomy Hx of colonoscopy Hx of foot surgery Hx of mitral valve repair (04/14/24) Hx of rotator cuff surgery Hx of tonsillectomy Hx of tubal ligation Surgical History: hysterectomy, tonsillectomy and - Family History Summary Family History Sister Hypertension Mother Thyroid disorder MVP (mitral valve prolapse) SVT (supraventricular tachycardia) Father Hypertension Hyperlipidemia Cancer Prostate Social History Smoking History Smoking Status: Former smoker Years Smokin (less than a pack/day pt stopped in 2011) Alcohol Use Alcohol Usage: Yes (socially) Occupation Occupation (List type of work in comments):: Retired Hobbies, Recreation, Social Activities Hobbies: Other (crafts) Recreational Activities: I am able to engage in all my recreational activities Social Environment Status Marital Status: Current Living Arrangements Living Environment:: Spouse Children How many children do you have?: 3 Do any of your children live nearby?: Yes Safety Do you feel safe in your surroundings?: Yes Assistance Do you need any assistance at home?: no Review of Systems Review of Systems Hints Review of Present Symptoms: Reports Fatigue, Heart Arrhythmia/Irregularities, Appetite - Normal, Appetite - Special Diet and Sleep - Normal; Denies Shortness of Breath at Rest, Shortness of Breath with Exertion, PVD, Operative Discomfort, Angina, Wound Healing, Dizziness/Lightheadedness or Sexual Changes Pain Is Patient Pain Free?: Yes Risk Factor Assessment Chief Complaint Chief Complaint: heart valve repair replace Vital Signs Pulse Ox: 97 Blood Pressure: 120/86 Pulse Pulse Rate: 69 Hypertension How long have you been treated?: 3 years Blood Pressure Sitting - Right Arm: 120/86 Obesity Height: 5 ft 9 in Weight:: 179 lb Weight in Pounds: 179.0 lbs Body Mass Index (BMI): 26.4 Nutritional Referral for Obesity: No Physical Inactivity Physical Inactivity: Recreational activity Risk Stratification Risk Guidelines: Moderate Risk: Risk Factor for Smoking, Risk Factor for Diabetes, Risk Factor for Obesity and Risk Factor for Sedentary Lifestyle and Highest Risk: Risk Factor for Dyslipidemia, Risk Factor for Hypertension and Risk Factor for Depression For Smoking Smoking Risk Guidelines For Dyslipidemia Dyslipidemia Risk Guidelines For Diabetes Mellitus Diabetes Risk Guidelines For Obesity/Overweight Obesity/Overweight Risk Guidelines For Hypertension Hypertension Risk Guidelines For Sedentary Lifestyle Sedentary Lifestyle Risk Guidelines For Depression Depression Risk Guidelines Family History Family History Sister Hypertension Mother Thyroid disorder MVP (mitral valve prolapse) SVT (supraventricular tachycardia) Father Hypertension Hyperlipidemia Cancer Prostate Motivation Motivation to Participate On a scale of 1 to 10, how prepared are you to commit to attending program?: 8 What do you see as barriers to successfully being able to complete the program?: nothing What do you see as the benefits of succesfully completing the program? In other words, what do you hope to get out of participating in the program?: better health Are there issues you are dealing with that will interfere with completing the program?: no Do you have a spouse or signficant other, family or friends who will help support you to complete the program?: yes
--- NOTE | 2024-06-17 13:05 | PCM.CR.ITP ---
Diagnosis General Information Admitting Diagnosis: heart valve repair Personal Learning Style:: Audio/Visual Barriers to Learning: No Barriers Stage of change r/t lifestyle modifications:: Contemplation Gave educational material for:: Treating Heart Disease, How The Heart Works, What it means to have Heart Disease, How Coronary Artery Disease is Diagnosed, Heart Procedures, What Heart Medications Do, Risk Factors & Modifications, Living an Active Life, Nutrition, Emotions & Heart Disease, Stress Management & Relaxation and Sleep Disorders & Heart Disease Education/Goals Cardiac Rehabilitation Goals Personal Goals: Initial Assessment: Improve management of stress and emotions, Improve energy level, Participate in home exercise program, Improve knowledge of cardiac disease, Improve muscle strength and endurance, Improve diet and eating habits (eat healthier) and Control risk factors (learn risk factor modification) Scale for measuring improvement of personal goals Diagnosis & Disease Process Outcomes/Goals: Pt IDs own risk factors & lifestyle modifications by Session 10, Verbalizes symptoms of angina & response by session 3., Pt independently manages and Other Additional Outcomes/Goals: Plan/Interventions: Assist Pt to ID & engage in lifestyle modification to reduce CVD risk, Instruct on individual risk factors, Review symptoms of angina & emergency actions, Review secondary diagnosis & identify educational needs. and Other see comment 30 day Reassessments:: Not Met 30 day Reassessments:: Not Met 30 day Reassessments:: Not Met 30 day Reassessments:: Not Met Final Reassessments:: Not Met Safety Referral to Physical Therapy: No Referral to [facility] Case Management: No Fall Risk Assessed:: Yes Assistive Devices:: None Exercise - Initial Assessment Visit Date of Eval: 06/17/24 (initial eval ) Mets: Pre-: >3 METS for 30 minutes by discharge, >5 METS for 30 minutes by discharge, >7 METS for 30 minutes by discharge and Unable to meet goal due to: (see comment below) Physician Prescribed Exercise Modalities: Treadmill, Schwinn Airdyne AD-7, SciFit Stepper, SciFit Pro-II Ergometer and SciFit Lateral Customer [employer] Frequency: 3x/week for 12 weeks [36 sessions] Intensity: 60-80% of age predicted maximum heart rate reserve Duration: 30 - 45 minutes Current METSs:: 3 Target Heart Rate:: 100-125 Resting Blood Pressure: 120/86 EKG Type: ST nonspecific ST abnormality Outcomes & Goals Goals:: Verbalizes understanding of THR, RPE & goal METS by session 6, Documents in home exercise log/reports 30 min aerobic 5 day/wk by DC, Demonstrates accurate pulse taking by DC and Other additional outcome/goals: see below Intervention & Plan Exercise Program Goals: Instruct on personal THR & RPE, Instruct on MET level & personal MET goal, Show patient to take own pulse /validate performance until accurate, Instruct on home exercise and Other additional plan/int Physical Activity Home Exercise Physical Activity - Home Exercise: Safe Exercise, Warm-up, Self-monitoring, Cool-Down, Home Exercise > 30 min Daily and Sitting Time <3 hours/daily Outcomes & Goals Outcomes/Goals: Demonstrates correct Warm-up/exercise Cool-Down (S3) if = 2.5 METs, Verbalizes symptoms of exercise intolerance by Session 3 (S3), Demonstrate safe equipment use (S3) & follows exercise prescrition (6) and Other: See below Intervention & Plan Plan/Intervention: Instruct warm-up & cool-down if exercising at > 2 METs, Instruct on symptoms of exercise intolerance & actions to take, Instruct & monitor on saf, Assess intial functional capacity & safety risk and Other See below Nutrition - Initial Assessment Program Goals Nutrition Program Goals Patient has diagnosis of Hyperlipidemia (ICD E78)?: Yes Visit Date of Eval: 06/17/24 (initial eval ) Cholesterol/Lipids (Other Core Measures) Determine presence & major risk factors that modify LDL goal: Cigarette smoking, Hypertension or hypertensive medication, Low HDL cholesterol <40 mg/dL*, Family history of premature CHD in Male < 55 years: female <65 yearsFa and Age men > 45 years; women >/= 55 years Outcomes/Goals: Pt IDs own risk factors & lifestyle modifications by Session 10, Verbalizes symptoms of angina & response by session 3., Pt independently manages and Other Additional Outcomes/Goals: Intervention/Plan: Advocate for lipid panel cholesterol medication if applicable, Instruct on personal lipid levels & lipid goals/NCEP guidelines, Instruct on cholesterol and Other additional plan/int Referral to dietitian:: No Diabetes (Other Core Measures) Diabetes Type: Not Applicable Weight Mgt (Other Care) Height: 5 ft 9 in Weight:: 179 lb BMI: 26.4 Diagnosis Overweight/Obesity BMI> 30% ICD-10 E66: No Diagnosis High BMI/Morbid Obesity BMI> 35% ICD-10 Z68: No Outcomes/Goals: Pt sets, maintains & shows weight loss goal & trend during rehab and Other additional outcomes/goals Intervention/Plan: Instruct on ideal BMI & set weight loss goal w/patient, Assist pt to ID & incorporate diet changes for weight loss by S9, Refer to Structured Weight Loss program as appropriate, Encourage goal of using 250-300dcal per session for weight loss and Other additional plan/interventions Healthy Eating Habits Will attend diet classes:: Yes Outcomes/Goals:: Consume diet rich in vegs,fruits,whole grain/high fiber,fish,lean meat, Limit sat/trans fats,cholesterol & added salts & sugars and Other additional outcome/goals: Intervention/Plan:: Assess current eating habits and Other Additional plan/interventions Education Gave educational materials for:: Signs & symptoms of hypoglycemia, Signs & symptoms of hyperglycemia, Relate diabetes to coronary artery disease and Healthy eating Core - Initial Assessment Visit Date of Eval: 06/17/24 (initial eval ) Medication Compliance Preventative Medication(s):: Aspirin, Beta prasad and ARB (Angiotensi Rcap) H/O mental health issues: depression, anxiety, or addiction?: Yes Doesn?t believe in the benefits of treatment?: No Believes medications are unnecessary or harmful?: No Has a concern about medication side effects?: No Expresses concern over the cost of medications?: No Outcomes/Goals: Verbalizes medications,desired effect & common side effects @ DC, Pt self-reports following medication regimen, Keeps card in wallet w/medications listed by DC and Other additional outcome/goals: Interventions/plans: Instruct on medication effects & side effects, Review medication list w/patient every two weeks, Instruct importance of taking meds as ordered & assist problem solving and Other additional Tobacco Use Tobacco Use: Non-smoker How long ago did you quit using tobacco products?: Greater than or equal to 6 months ago Outcomes/Goals: Smoking cessation achieved or maintained by discharge, Identify aids/strategies for achieving smoking cessation by session 6 and Other additional outcome/goals Interventions/plan: Instruct on effects of smoking & provide smoking cessation resource, Assist pt to set quit date & provide encouragement, Assist pt to develop strategies to achieve/maintain quit date, Assist pt w/nicotine replacement & medication for cessation success and Other additional plan/interventions Hypertension Hypertension Diagnosis:: Hypertension ICD-10 I10 [place] [employer] Hypertension Guidelines Outcomes/Goals: Able to verbalize/achieve optimal blood pressure <130/80, Incorporates diet changes & exercise for blood pressure control by DC and Other additional outcomes/goals Interventions/plan: Instruct on optimal blood pressure, hypertension & medications, Instruct on effects of sodium, alcohol, stress, exercise &hypertension and Other additional plan/interventions Tobacco Cessation Referral Smoking Cessation Referral:: No Individual Education/Counseling:: No Education Schedule Given:: Yes Psychosocial - Initial Assess VIsit Date of Eval: 06/17/24 (initial eval ) History of previous Mental disease:: Yes History of Emotional Disorders: Depression Target Goals Target Goals Psychosocial Test Tool Used:: [employer] QOL Cardiac and PHQ-9 Questionnaire phq-9 Severity Referral to Behavioral Health PS - Interventions: Yes: Attend Stress Management Classes Outcomes/Goals: See list Psychosocial Outcomes/Goals:: ID's personal stressors & 2 strategies to manage stress by discharge and Other Additional outcome/goals: Intervention/Plan: See List Interventions/Plan:: Assess stressors,coping strategies & signs of derpression on admission, Instruct/assist pt to develop coping & personal stress Mgt strategies, Refer to Behavioral Health if appropriate, Refer to Physician if appropriate, Instruct patient to recognize signs & symptoms of depression, Instruct patient to recog and Other additional plan/intervention Patient Health Questionnaire PHQ-9 Screening Initial Assessment: 1. Little interest or pleasure in doing things: Not at all 2. Feeling down, depressed, or hopeless: Not at all 3. Trouble falling or staying asleep, or sleeping too much: Nearly every day 4. Feeling tired or having little energy: Several days 5. Poor appetite or overeating: Not at all 6. Feeling bad about yourself -- or that you are a failure or have let yourself or your family down: Not at all 7. Trouble concentrating on things, such as reading the newspaper or watching television: More than half the days 8. Moving or speaking so slowly that other people could have noticed. Or the opposite - being so fidgety or restless that you have been moving around a lot more than usual: More than half the days 9. Thoughts that you would be better off , or of hurting yourself in some way: Not at all How difficult have these problems made it for you to do your work, take care of things at home, or get along with other people?: Somewhat difficult Total Score: 8 GLENN-Q SV Test Statements CAD is a disease of the arteries in the heart: False Examples of risk factors for heart disease: True Angina is chest pain or discomfort: True The benefits of resistance training include: True Eating more meat and dairy products: False Anti-platelet medications such as aspirin are important: False The only effective way to manage stress: False An exercise warm-up slowly increases heart rate: True Prepared, processed foods usually have high sodium: True Depression is common after a heart attack: True The statin medications lower cholesterol: True To control blood pressure, lower the amount of sodium: True If someone gets chest discomfort during walking: False Transfats are partially hydrogenated vegetable oils: True Sleep apnea that is not treated increases the risk: False To control cholesterol, one should become a vegetarian: False Someone knows if he/she is exercising at the right level: True Diabetes cannot be prevented with exercise & health eating: False Stress is a large risk for heart attack: True A diet that can help lower blood pressure is rich in: True Total Score Total Correct Responses: 19 Self-Efficacy 6-Item Scale Initial Assessment: We would like to know how confident you are in doing certain activities. Please select your confidence level for: Fatigue Select Number: 8 Physical Discomfort or Pain Select Number: 6 Emotional Distress Select Number: 6 Other Symptoms or Health Problems Select Number: 8 Different Tasks and Activities Select Number: 8 Medication Select Number: 8 Total Score:: 7 Nutrition Survey Nutrition Survey Instructions Scoring Instructions Nutrition Survey Initial: Have you lost >10 lbs over the past 2 months without trying?: No Are you following a special diet at home for diabetes, low fat, or low salt?: No Are you interested in meeting with a dietitian for help understanding your diet?: Yes Do you eat less than 3 meals a day?: Yes Do you eat fatty meats (bach, sausage, ribs, etc), fried foods, desserts, large amounts of salad dressings, margarine, butter, or cheese most days?: No Do you have food allergies? [Enter types in comment field]: Yes Do you eat in restaurants more than 3 times a week?: No Do you season food with salt, seasoning salt, or garlic salt?: No Do you used canned, boxed, frozen meals, or soups, seasoning packets?: No Total Score:: 3 Exercise - 30-day Assessment Physician Prescribed Exercise Modalities: Treadmill, Schwinn Airdyne AD-7, SciFit Stepper, SciFit Pro-II Ergometer and SciFit Lateral [place] Exercise - 60-day Assessment Physician Prescribed Exercise Modalities: Treadmill, Schwinn Airdyne AD-7, SciFit Stepper, SciFit Pro-II Ergometer and SciFit Lateral Customer Service Operator Exercise - 90-day Assessment Physician Prescribed Exercise Modalities: Treadmill, Schwinn Airdyne AD-7, SciFit Stepper, SciFit Pro-II Ergometer and SciFit Lateral Customer Service Operator Exercise - Final/Discharge Physician Prescribed Exercise Modalities: Treadmill, Schwinn Airdyne AD-7, SciFit Stepper, SciFit Pro-II Ergometer and SciFit Lateral Customer Service Operator Frequency: 3x/week for 12 weeks [36 sessions] Intensity: 60-80% of age predicted maximum heart rate reserve Current METSs:: 3 Target Heart Rate:: 100-125 Nutrition - 30-Day Assessment Weight Mgt (Other Care) Height: 5 ft 9 in Weight:: 179 lb BMI: 26.4 Nutrition - 60-Day Assessment Weight Mgt (Other Care) Height: 5 ft 9 in Weight:: 179 lb BMI: 26.4 Psychosocial - 30-Day Assess Target Goals Target Goals Referral to Behavioral Health PS - Interventions: Yes: Attend Stress Management Classes Psychosocial - 60-Day Assess Target Goals Target Goals Referral to Behavioral Health PS - Interventions: Yes: Attend Stress Management Classes Psychosocial - 90-Day Assess Target Goals Target Goals Referral to Behavioral Health PS - Interventions: Yes: Attend Stress Management Classes Psychosocial - Final Assessmen Target Goals Target Goals Referral to Behavioral Health PS - Interventions: Yes: Attend Stress Management Classes Nutrition - 90-Day Assessment Weight Mgt (Other Care) Height: 5 ft 9 in Weight:: 179 lb BMI: 26.4 Nutrition - Final Assessment Program Goals Patient has diagnosis of Hyperlipidemia (ICD E78)?: Yes Weight Mgt (Other Care) Height: 5 ft 9 in Weight:: 179 lb BMI: 26.4
[2024-06-17 13:22] VITALS: BP 120/86; PULSE 69; O2SAT 97; BMI 26.4
[2024-06-17 13:50] VITALS: BP 120/86; BMI 26.4
== END | disposition home or self-care (01) ==
LOC: CR 12:54
PROVIDERS: PCP Family Medicine; Referring Provider Internal Medicine Cardiovascular Disease; Visit Provider Internal Medicine Cardiovascular Disease
DX: Z95.2 Presence of prosthetic heart valve (principal)

== ENCOUNTER → 2024-06-17 | Outpatient (CLI) | payer OTHER, SELFPAY ==
--- NOTE | 2024-06-17 12:30 | BI_ITS ---
MAMMOGRAPHY - BILATERAL SCREENING REASON FOR EXAM: Female, 53 years old. Routine annual screening examination. PERTINENT HISTORY: Non-contributory. History of prior left breast biopsy. TECHNIQUE: Digital bilateral breast chintan (3D mammographic acquisition) in the CC and MLO projections. 2-D mediolateral oblique (MLO) and craniocaudad (CC) views of both breasts were obtained. CAD: Full Field Digital Mammography with Computer Added Detection was performed. COMPARISON: Comparison is made with prior study May 12, 2023 and May 07, 2022. FINDINGS: Breast Composition: There are scattered areas of fibroglandular density. There are no dominant masses or suspicious calcifications. Stable bilateral fat containing axillary lymph nodes. A tissue clip marker is seen in the central medial aspect of the left breast. No other significant abnormalities are identified. There has been no significant change since the prior study. BI/SCRN MAMM (CAD)W/CHINTAN BILAT IMPRESSION: Stable bilateral screening mammogram. Yearly follow-up mammogram recommended. (A) ASSESSMENT CATEGORY: BIRADS Category 2: Benign. A letter regarding these results will be sent to the patient by the facility within 30 days. Approximately 10% of breast cancers are not detected by mammography. A normal mammogram should not delay biopsy of a clinically suspicious abnormality. [id number] Electronically Signed: Geoff Andrew MD at 15:30 EST ,
== END | disposition home or self-care (01) ==
LOC: OPBI 12:28
PROVIDERS: PCP Family Medicine; Referring Provider Family Medicine; Visit Provider Family Medicine
DX: Z12.31 Encounter for screening mammogram for malignant neoplasm of breast (principal)
CPT/HCPCS: 77063; 77067

== ENCOUNTER 2024-07-16 14:15 | Outpatient (RCR) | payer OTHER, SELFPAY ==
[2024-06-17 13:50] VITALS: BMI 26.4
--- NOTE | 2024-07-14 15:42 | CR.ITP_ITS ---
Exercise - Initial Assessment Visit Session #:: 6 Physician Prescribed Exercise Modalities: Treadmill, Schwinn Airdyne AD-7 and SciFit Stepper Nutrition - Initial Assessment Weight Mgt (Other Care) Height: 5 ft 9 in Weight:: 178 lb BMI: 26.2 Psychosocial - Initial Assess Target Goals Target Goals Referral to Behavioral Health PS - Interventions: Yes: Attend Stress Management Classes Patient Health Questionnaire PHQ-9 Screening 30-Day Re-eval Assessment: 1. Little interest or pleasure in doing things: Not at all 2. Feeling down, depressed, or hopeless: Not at all 3. Trouble falling or staying asleep, or sleeping too much: Nearly every day 4. Feeling tired or having little energy: Several days 5. Poor appetite or overeating: Not at all 6. Feeling bad about yourself -- or that you are a failure or have let yourself or your family down: More than half the days 7. Trouble concentrating on things, such as reading the newspaper or watching television: More than half the days 8. Moving or speaking so slowly that other people could have noticed. Or the opposite - being so fidgety or restless that you have been moving around a lot more than usual: More than half the days 9. Thoughts that you would be better off , or of hurting yourself in some way: Not at all How difficult have these problems made it for you to do your work, take care of things at home, or get along with other people?: Somewhat difficult Total Score: 10 Self-Efficacy 6-Item Scale 30-Day Re-eval Assessment: We would like to know how confident you are in doing certain activities. Please select your confidence level for: Fatigue Select Number: 8 Physical Discomfort or Pain Select Number: 6 Emotional Distress Select Number: 6 Other Symptoms or Health Problems Select Number: 8 Different Tasks and Activities Select Number: 8 Medication Select Number: 8 Total Score:: 7 Nutrition Survey Nutrition Survey Instructions Scoring Instructions Exercise - 30-day Assessment Visit Date of Eval: 07/14/24 Session #:: 6 Physician Prescribed Exercise Modalities: Treadmill, Schwinn Airdyne AD-7 and SciFit Stepper Frequency: 3x/week for 12 weeks [36 sessions] Intensity: 60-80% of age predicted maximum heart rate reserve Duration: 30 - 45 minutes Current METSs:: 5.1 Target Heart Rate:: 100-125 Current RPE:: 12 Maximum Excercise HR:: 100 Resting Blood Pressure: 128/90 Maximum Exercise Blood Pressure: 112/82 EKG Type: NSR to ST with rare pac, pvc Outcomes & Goals Goals:: Verbalizes understanding of THR, RPE & goal METS by session 6, Documents in home exercise log/reports 30 min aerobic 5 day/wk by DC, Demonstrates accurate pulse taking by DC and Other additional outcome/goals: see below Intervention & Plan Exercise Program Goals: Instruct on personal THR & RPE, Instruct on MET level & personal MET goal, Show patient to take own pulse /validate performance until accurate, Instruct on home exercise and Other additional plan/int Physical Activity Home Exercise Physical Activity - Home Exercise: Safe Exercise, Warm-up, Self-monitoring, Cool-Down, Home Exercise > 30 min Daily and Sitting Time <3 hours/daily Outcomes & Goals Outcomes/Goals: Demonstrates correct Warm-up/exercise Cool-Down (S3) if = 2.5 METs, Verbalizes symptoms of exercise intolerance by Session 3 (S3), Demonstrate safe equipment use (S3) & follows exercise prescrition (6) and Other: See below Intervention & Plan Plan/Intervention: Instruct warm-up & cool-down if exercising at > 2 METs, Instruct on symptoms of exercise intolerance & actions to take, Instruct & monitor on saf, Assess intial functional capacity & safety risk and Other See below 30-day Reassessments 30 day Reassessments:: Progressing Reassessment Notes & Comments:: RPE explained. Pt demonstrates understanding. Exercise - 60-day Assessment Physician Prescribed Exercise Modalities: Treadmill, Schwinn Airdyne AD-7 and SciFit Stepper Exercise - 90-day Assessment Physician Prescribed Exercise Modalities: Treadmill, Schwinn Airdyne AD-7 and SciFit Stepper Exercise - Final/Discharge Physician Prescribed Exercise Modalities: Treadmill, Schwinn Airdyne AD-7 and SciFit Stepper Nutrition - 30-Day Assessment Program Goals Nutrition Program Goals Patient has diagnosis of Hyperlipidemia (ICD E78)?: Yes Visit Date of Eval: 07/14/24 Session #:: 6 Cholesterol/Lipids (Other Core Measures) Determine presence & major risk factors that modify LDL goal: Hypertension or hypertensive medication, Low HDL cholesterol <40 mg/dL*, Family history of premature CHD in Male < 55 years: female <65 yearsFa and Age men > 45 years; women >/= 55 years Outcomes/Goals: Pt IDs own risk factors & lifestyle modifications by Session 10, Verbalizes symptoms of angina & response by session 3., Pt independently manages and Other Additional Outcomes/Goals: Intervention/Plan: Advocate for lipid panel cholesterol medication if applicable, Instruct on personal lipid levels & lipid goals/NCEP guidelines, Instruct on cholesterol and Other additional plan/int Weight Mgt (Other Care) Height: 5 ft 9 in Weight:: 178 lb BMI: 26.2 Diagnosis Overweight/Obesity BMI> 30% ICD-10 E66: No Diagnosis High BMI/Morbid Obesity BMI> 35% ICD-10 Z68: No Outcomes/Goals: Pt sets, maintains & shows weight loss goal & trend during rehab and Other additional outcomes/goals Intervention/Plan: Instruct on ideal BMI & set weight loss goal w/patient, Assist pt to ID & incorporate diet changes for weight loss by S9, Refer to Structured Weight Loss program as appropriate, Encourage goal of using 250- 300dcal per session for weight loss and Other additional plan/interventions Healthy Eating Habits Will attend diet classes:: Yes Outcomes/Goals:: Consume diet rich in vegs,fruits,whole grain/high fiber,fish,lean meat, Limit sat/trans fats,cholesterol & added salts & sugars and Other additional outcome/goals: Intervention/Plan:: Assess current eating habits and Other Additional plan/interventions 30-day Reassessments:: Progressing Reassessment Notes & Comments:: Risk factors and how to minimize risk factors discussed with pt. Pt demonstrates understanding. Education Gave educational materials for:: Signs & symptoms of hypoglycemia, Signs & symptoms of hyperglycemia, Relate diabetes to coronary artery disease and H ealthy eating Nutrition - 60-Day Assessment Weight Mgt (Other Care) Height: 5 ft 9 in Weight:: 178 lb BMI: 26.2 Core - 30-Day Assessment Visit Date of Eval: 07/14/24 Session #:: 6 Medication Compliance Preventative Medication(s):: Aspirin, Beta prasad and ARB (Angiotensi Rcap) H/O mental health issues: depression, anxiety, or addiction?: Yes Doesn?t believe in the benefits of treatment?: No Believes medications are unnecessary or harmful?: No Has a concern about medication side effects?: No Expresses concern over the cost of medications?: No Outcomes/Goals: Verbalizes medications,desired effect & common side effects @ DC, Pt self-reports following medication regimen, Keeps card in wallet w/medications listed by DC and Other additional outcome/goals: Interventions/plans: Instruct on medication effects & side effects, Review medication list w/patient every two weeks, Instruct importance of taking meds as ordered & assist problem solving and Other additional Tobacco Use Tobacco Use: Non-smoker Hypertension Hypertension Diagnosis:: Hypertension ICD-10 I10 Resting Blood Pressure:: 128/90 [place] [employer] Hypertension Guidelines Peak Exercise Blood Pressure:: 112/82 Outcomes/Goals: Able to verbalize/achieve optimal blood pressure <130/80, Incorporates diet changes & exercise for blood pressure control by DC and Other additional outcomes/goals Interventions/plan: Instruct on optimal blood pressure, hypertension & medications, Instruct on effects of sodium, alcohol, stress, exercise &hypertension and Other additional plan/interventions 30 day Reassessments:: Progressing Reassessment Notes & Comments:: BP's are slightly elevated. [place] sodium diet encouraged. Will continue to monitor and notify pt's physician if needed. Tobacco Cessation Referral Smoking Cessation Referral:: No Individual Education/Counseling:: No Education Schedule Given:: Yes Psychosocial - 30-Day Assess VIsit Date of Eval: 07/14/24 Session #:: 6 History of previous Mental disease:: Yes History of Emotional Disorders: Depression Target Goals Target Goals Psychosocial Test Tool Used:: [employer] QOL Cardiac and PHQ-9 Questionnaire phq-9 Severity Referral to Behavioral Health PS - Interventions: Yes: Attend Stress Management Classes Outcomes/Goals: See list Psychosocial Outcomes/Goals:: ID's personal stressors & 2 strategies to manage stress by discharge and Other Additional outcome/goals: Intervention/Plan: See List Interventions/Plan:: Assess stressors,coping strategies & signs of derpression on admission, Instruct/assist pt to develop coping & personal stress Mgt strategies, Refer to Behavioral Health if appropriate, Refer to Physician if appropriate, Instruct patient to recognize signs & symptoms of depression, Instruct patient to recog and Other additional plan/intervention 30-day Reassessments: 30 day Reassessments:: Progressing Psychosocial - 60-Day Assess Target Goals Target Goals Referral to Behavioral Health PS - Interventions: Yes: Attend Stress Management Classes Outcomes/Goals: See list Psychosocial Outcomes/Goals:: ID's personal stressors & 2 strategies to manage stress by discharge and Other Additional outcome/goals: Psychosocial - 90-Day Assess Target Goals Target Goals Referral to Behavioral Health PS - Interventions: Yes: Attend Stress Management Classes Psychosocial - Final Assessmen Target Goals Target Goals Referral to Behavioral Health PS - Interventions: Yes: Attend Stress Management Classes Nutrition - 90-Day Assessment Weight Mgt (Other Care) Height: 5 ft 9 in Weight:: 178 lb BMI: 26.2 Nutrition - Final Assessment Weight Mgt (Other Care) Height: 5 ft 9 in Weight:: 178 lb BMI: 26.2
[2024-07-14 15:52] VITALS: BP 128/90; BMI 26.2
[2024-07-14 16:01] VITALS: BP 128/90
== END 2024-07-27 23:59 ==
LOC: CR 14:15
PROVIDERS: PCP Family Medicine; Referring Provider Internal Medicine Cardiovascular Disease; Visit Provider Internal Medicine Cardiovascular Disease
DX: Z98.890 Other specified postprocedural states (principal)
CPT/HCPCS: 93798

== ENCOUNTER 2024-07-30 08:24 | Outpatient (RCR) | payer OTHER, SELFPAY ==
[2024-07-14 15:52] VITALS: BMI 26.2
[2024-07-28 00:34] VITALS: BP 128/90
--- NOTE | 2024-08-12 08:49 | CR.ITP_ITS ---
Exercise - Initial Assessment Physician Prescribed Exercise Modalities: Treadmill, Schwinn Airdyne AD-7 and SciFit Stepper Nutrition - Initial Assessment Weight Mgt (Other Care) Height: 5 ft 9 in Weight:: 178 lb BMI: 26.2 Core - Initial Assessment Hypertension Resting Blood Pressure:: 138/88 [place] [employer] Hypertension Guidelines Psychosocial - Initial Assess Target Goals Target Goals Referral to Behavioral Health PS - Interventions: Yes: Attend Stress Management Classes Patient Health Questionnaire PHQ-9 Screening 60-Day Re-eval Assessment: 1. Little interest or pleasure in doing things: Not at all 2. Feeling down, depressed, or hopeless: Not at all 3. Trouble falling or staying asleep, or sleeping too much: Nearly every day 4. Feeling tired or having little energy: Several days 5. Poor appetite or overeating: Not at all 6. Feeling bad about yourself -- or that you are a failure or have let yourself or your family down: More than half the days 7. Trouble concentrating on things, such as reading the newspaper or [employer] television: More than half the days 8. Moving or speaking so slowly that other people could have noticed. Or the opposite - being so fidgety or restless that you have been moving around a lot more than usual: More than half the days 9. Thoughts that you would be better off , or of hurting yourself in some way: Not at all How difficult have these problems made it for you to do your work, take care of things at home, or get along with other people?: Somewhat difficult Total Score: 10 Self-Efficacy 6-Item Scale 60-Day Re-eval Assessment: We would like to know how confident you are in doing certain activities. Please select your confidence level for: Fatigue Select Number: 8 Physical Discomfort or Pain Select Number: 6 Emotional Distress Select Number: 6 Other Symptoms or Health Problems Select Number: 8 Different Tasks and Activities Select Number: 8 Medication Select Number: 8 Total Score:: 7 Nutrition Survey Nutrition Survey Instructions Scoring Instructions Exercise - 30-day Assessment Physician Prescribed Exercise Modalities: Treadmill, Schwinn Airdyne AD-7 and SciFit Stepper Exercise - 60-day Assessment Visit Date of Eval: 08/12/24 Session #:: 7 Comments:: Pt has not attended rehab since 07/16/24 Physician Prescribed Exercise Modalities: Treadmill, Schwinn Airdyne AD-7 and SciFit Stepper Frequency: 3x/week for 12 weeks [36 sessions] Intensity: 60-80% of age predicted maximum heart rate reserve Duration: 30 - 45 minutes Current METSs:: 5.1 Target Heart Rate:: 100-125 Current RPE:: 11-12 Maximum Excercise HR:: 90 Resting Blood Pressure: 138/88 Maximum Exercise Blood Pressure: 138/88 EKG Type: NSR with rare pac, pvc Outcomes & Goals Goals:: Verbalizes understanding of THR, RPE & goal METS by session 6, Documents in home exercise log/reports 30 min aerobic 5 day/wk by DC, Demonstrates accurate pulse taking by DC and Other additional outcome/goals: see below Intervention & Plan Exercise Program Goals: Instruct on personal THR & RPE, Instruct on MET level & personal MET goal, Show patient to take own pulse /validate performance until accurate, Instruct on home exercise and Other additional plan/int Physical Activity Home Exercise Physical Activity - Home Exercise: Safe Exercise, Warm-up, Self-monitoring, Cool-Down, Home Exercise > 30 min Daily and Sitting Time <3 hours/daily Outcomes & Goals Outcomes/Goals: Demonstrates correct Warm-up/exercise Cool-Down (S3) if = 2.5 METs, Verbalizes symptoms of exercise intolerance by Session 3 (S3), Demonstrate safe equipment use (S3) & follows exercise prescrition (6) and Other: See below Intervention & Plan Plan/Intervention: Instruct warm-up & cool-down if exercising at > 2 METs, Instruct on symptoms of exercise intolerance & actions to take, Instruct & monitor on saf, Assess intial functional capacity & safety risk and Other See below 30-day Reassessments 30 day Reassessments:: Progressing Reassessment Notes & Comments:: Pt has not progressed. Pt has not been attending rehab. Exercise - 90-day Assessment Physician Prescribed Exercise Modalities: Treadmill, Schwinn Airdyne AD-7 and SciFit Stepper Exercise - Final/Discharge Physician Prescribed Exercise Modalities: Treadmill, Schwinn Airdyne AD-7 and SciFit Stepper Nutrition - 30-Day Assessment Weight Mgt (Other Care) Height: 5 ft 9 in Weight:: 178 lb BMI: 26.2 Nutrition - 60-Day Assessment Program Goals Nutrition Program Goals Patient has diagnosis of Hyperlipidemia (ICD E78)?: Yes Visit Date of Eval: 08/12/24 Session #:: 7 Cholesterol/Lipids (Other Core Measures) Determine presence & major risk factors that modify LDL goal: Hypertension or hypertensive medication, Low HDL cholesterol <40 mg/dL*, Family history of premature CHD in Male < 55 years: female <65 yearsFa and Age men > 45 years; women >/= 55 years Outcomes/Goals: Pt IDs own risk factors & lifestyle modifications by Session 10, Verbalizes symptoms of angina & response by session 3., Pt independently manages and Other Additional Outcomes/Goals: Intervention/Plan: Advocate for lipid panel cholesterol medication if applicable, Instruct on personal lipid levels & lipid goals/NCEP guidelines, Instruct on cholesterol and Other additional plan/int Weight Mgt (Other Care) Height: 5 ft 9 in Weight:: 178 lb BMI: 26.2 Diagnosis Overweight/Obesity BMI> 30% ICD-10 E66: No Diagnosis High BMI/Morbid Obesity BMI> 35% ICD-10 Z68: No Outcomes/Goals: Pt sets, maintains & shows weight loss goal & trend during rehab and Other additional outcomes/goals Intervention/Plan: Instruct on ideal BMI & set weight loss goal w/patient, Assist pt to ID & incorporate diet changes for weight loss by S9, Refer to Structured Weight Loss program as appropriate, Encourage goal of using 250- 300dcal per session for weight loss and Other additional plan/interventions Healthy Eating Habits Will attend diet classes:: Yes Outcomes/Goals:: Consume diet rich in vegs,fruits,whole grain/high fiber,fish,lean meat, Limit sat/trans fats,cholesterol & added salts & sugars and Other additional outcome/goals: Intervention/Plan:: Assess current eating habits and Other Additional plan/interventions Reassessment Notes & Comments:: Pt has not attended rehab since 07/16/24 Education Gave educational materials for:: Signs & symptoms of hypoglycemia, Signs & symptoms of hyperglycemia, Relate diabetes to coronary artery disease and Healthy eating Core - Final Assessment Hypertension Resting Blood Pressure:: 138/88 [place] [employer] Hypertension Guidelines Core - 60-Day Assessment Visit Date of Eval: 08/12/24 Session #:: 7 Medication Compliance Preventative Medication(s):: Aspirin, Beta prasad and ARB (Angiotensi Rcap) H/O mental health issues: depression, anxiety, or addiction?: Yes Doesn?t believe in the benefits of treatment?: No Believes medications are unnecessary or harmful?: No Has a concern about medication side effects?: No Expresses concern over the cost of medications?: No Outcomes/Goals: Verbalizes medications,desired effect & common side effects @ DC, Pt self-reports following medication regimen, Keeps card in wallet w/medications listed by DC and Other additional outcome/goals: Interventions/plans: Instruct on medication effects & side effects, Review medication list w/patient every two weeks, Instruct importance of taking meds as ordered & assist problem solving and Other additional Tobacco Use Tobacco Use: Non-smoker Hypertension Hypertension Diagnosis:: Hypertension ICD-10 I10 Resting Blood Pressure:: 138/88 Resting Blood Pressure:: 138/88 [place] [employer] Hypertension Guidelines Peak Exercise Blood Pressure:: 130/80 Outcomes/Goals: Able to verbalize/achieve optimal blood pressure <130/80, Incorporates diet changes & exercise for blood pressure control by DC and Other additional outcomes/goals Interventions/plan: Instruct on optimal blood pressure, hypertension & medications, Instruct on effects of sodium, alcohol, stress, exercise &hypertension and Other additional plan/interventions Reassessment Notes & Comments:: Pt has not attended rehab since 07/16/24 Psychosocial - 30-Day Assess Target Goals Target Goals Referral to Behavioral Health PS - Interventions: Yes: Attend Stress Management Classes Outcomes/Goals: See list Psychosocial Outcomes/Goals:: ID's personal stressors & 2 strategies to manage stress by discharge and Other Additional outcome/goals: Psychosocial - 60-Day Assess VIsit Date of Eval: 08/12/24 Session #:: 7 History of previous Mental disease:: Yes History of Emotional Disorders: Depression Target Goals Target Goals Psychosocial Test Tool Used:: [employer] QOL Cardiac and PHQ-9 Questionnaire phq-9 Severity Referral to Behavioral Health PS - Interventions: Yes: Attend Stress Management Classes Outcomes/Goals: See list Psychosocial Outcomes/Goals:: ID's personal stressors & 2 strategies to manage stress by discharge and Other Additional outcome/goals: Intervention/Plan: See List Interventions/Plan:: Assess stressors,coping strategies & signs of derpression on admission, Instruct/assist pt to develop coping & personal stress Mgt strategies, Refer to Behavioral Health if appropriate, Refer to Physician if a ppropriate, Instruct patient to recognize signs & symptoms of depression, Instruct patient to recog and Other additional plan/intervention 30-day Reassessments: Reassessment Notes & Comments:: Pt has not attended rehab since 07/16/24 Psychosocial - 90-Day Assess Target Goals Target Goals Referral to Behavioral Health PS - Interventions: Yes: Attend Stress Management Classes Psychosocial - Final Assessmen Target Goals Target Goals Referral to Behavioral Health PS - Interventions: Yes: Attend Stress Management Classes Nutrition - 90-Day Assessment Weight Mgt (Other Care) Height: 5 ft 9 in Weight:: 178 lb BMI: 26.2 Nutrition - Final Assessment Weight Mgt (Other Care) Height: 5 ft 9 in Weight:: 178 lb BMI: 26.2
[2024-08-12 08:54] VITALS: BP 138/88
[2024-08-12 08:58] VITALS: BMI 26.2
[2024-08-12 09:04] VITALS: BP 138/88
== END 2024-08-27 23:59 ==
LOC: CR 08:24
PROVIDERS: PCP Family Medicine; Referring Provider Internal Medicine Cardiovascular Disease; Visit Provider Internal Medicine Cardiovascular Disease
DX: Z98.890 Other specified postprocedural states (principal)

== ENCOUNTER → 2024-08-18 | Outpatient (CLI) | payer OTHER, SELFPAY ==
[2024-08-12 08:58] VITALS: BMI 26.2
== END | disposition home or self-care (01) ==
LOC: LABSPEC 13:51
PROVIDERS: PCP Family Medicine; Visit Provider Family Medicine
DX: R30.0 Dysuria (principal)
CPT/HCPCS: 87086

== ENCOUNTER → 2024-09-23 | Outpatient (CLI) | payer OTHER, SELFPAY ==
[2024-09-23 12:02] LABS: Cholesterol 252 mg/dL (<=200); High Density Lipoprotein 73 mg/dL; Low Density Lipoprotein Calc. 138 mg/dL; Triglycerides 204 mg/dL; Very Low Density Lipoprotein 41 mg/dL (5-40); cholesterol:hdl ratio screen 3.45
== END | disposition home or self-care (01) ==
LOC: LAB 10:55
PROVIDERS: PCP Family Medicine; Referring Provider Internal Medicine Cardiovascular Disease; Visit Provider Internal Medicine Cardiovascular Disease
DX: E78.00 Pure hypercholesterolemia, unspecified (principal)
CPT/HCPCS: 36415; 80061

== ENCOUNTER → 2024-11-25 | Outpatient (CLI) | payer OTHER, SELFPAY ==
[2024-11-25 15:08] LABS: AST(SGOT) 25 U/L (<=31); Alanine Aminotransfer ALT/SGPT 21 U/L (<=34); Albumin, Serum 3.8 g/dL (3.5-5.0); Alkaline Phosphatase 72 U/L (35-104); Bilirubin, Direct 0.15 mg/dL (0.00-0.30); Cholesterol 260 mg/dL (<=200); Globulin 2.9 g/dL (2.2-4.2); High Density Lipoprotein 63 mg/dL; Low Density Lipoprotein Calc. 174 mg/dL; Protein, Total 6.7 g/dL (5.9-8.4); Total Bilirubin 0.42 mg/dL (0.00-1.30); Triglycerides 118 mg/dL; Very Low Density Lipoprotein 24 mg/dL (5-40); cholesterol:hdl ratio screen 4.15
== END | disposition home or self-care (01) ==
LOC: LAB 12:40
PROVIDERS: PCP Family Medicine; Referring Provider Nurse Practitioner Family; Visit Provider Nurse Practitioner Family
DX: E78.00 Pure hypercholesterolemia, unspecified (principal)
CPT/HCPCS: 36415; 80061; 80076

== ENCOUNTER → 2024-12-28 | Outpatient (CLI) | payer OTHER, SELFPAY | END | disposition home or self-care (01) | LOC: MTLAB 14:42 | PROVIDERS: PCP Family Medicine; Referring Provider Family Medicine; Visit Provider Family Medicine | DX: R19.7 Diarrhea, unspecified (principal) | CPT/HCPCS: 83630; 87493; 87506 ==

== ENCOUNTER 2025-01-02 15:10 | Emergency (ER) | payer OTHER, SELFPAY ==
[2025-01-02 15:11] VITALS: BP 153/113; PULSE 64; RESP 16; TEMP 36.8; O2SAT 98; BMI 27.6
--- NOTE | 2025-01-02 15:32 | ED.VIS.GI ---
HPI HPI - GI History of Present Illness Chief Complaint: Nausea/Vomiting/Diarrhea Informant: patient and spouse/S.O. Narrative Narrative: 54-year-old female has been having GI symptoms for months. Abdominal cramping periumbilical/infraumbilical, bloating, nausea with some occasional vomiting, diarrhea with mucus and tenesmus. No hematochezia. No melena. No hematemesis. No fevers or chills. She states symptoms have been worse in the past couple weeks, especially overnight, she vomited some last night. Very bloated. More diarrhea. No new symptoms but she has an outpatient CT scheduled for Friday, today is Friday, and she is concerned that something worse may be going on. She is scheduled to see GI but they wanted to see the results of her scheduled outpatient CT before they see her. [employer] is not at this hospital or town. States she just had some recent outpatient stool tests including a positive lactoferrin, a negative enteric bacterial panel, and a negative C. difficile which she showed me and are in our system. [facility] Medical History SVT (supraventricular tachycardia) Mitral regurgitation Mitral valve prolapse Psoriatic arthritis GERD (gastroesophageal reflux disease) Irregular heart beat Cardiac murmur Essential hypertension Preoperative cardiovascular examination Displaced fracture of neck of right second metacarpal bone Synovial cyst of popliteal space [Dc], left knee Tear of medial meniscus of left knee Osteoarthritis of left knee Left knee pain Dietary restriction Chronic cough History of steroid therapy History of pain when walking Hypertension Left knee pain Unspecified abdominal pain Abdominal pain Diarrhea Patellofemoral syndrome, right Right knee pain Wears glasses Alcohol use Arthritis Anemia Elevated liver enzymes Restless legs Migraine headache Loss of consciousness History of hiatal hernia Hx of diarrhea History of vomiting Former smoker Leg cramps History of edema Cardiology follow-up encounter History of echocardiogram History of stress test History of rheumatic fever History of ganglion cyst Nonrheumatic mitral (valve) prolapse Intermittent palpitations Tension-type headache, unspecified, not intractable Rheumatic fever without heart involvement Pure hypercholesterolemia, unspecified Attention-deficit hyperactivity disorder, unspecified type Psoriasis Cervical radiculopathy Drug overdose, multiple drugs Migraines History of suicide attempt Depression Home Medications ?Medication ?Instructions ?Recorded ?Last Taken ?Type rizatriptan 10 mg tablet (Maxalt) 10 mg PO PRN PRN MIGRAINES 02/09/21 Unknown History guselkumab 100 mg/mL subcutaneous 100 mg subcut Q8W 04/07/23 Unknown History auto-injector (Tremfya) topiramate 25 mg tablet 75 mg PO QHS 04/07/23 Unknown History desvenlafaxine succinate 25 mg 25 mg PO QHS 10/09/23 Unknown History tablet,extended release 24 hr desvenlafaxine succinate 50 mg 50 mg PO QDAY 10/09/23 Unknown History tablet,extended release 24 hr celecoxib 200 mg capsule 200 mg PO DAILY PRN mild pain 11/20/23 Unknown History pantoprazole 40 mg tablet,delayed 40 mg PO QDAY 05/10/24 Unknown History release losartan 100 mg tablet 100 mg PO QDAY #90 tabs 06/10/24 Unknown Rx amlodipine 5 mg tablet 5 mg PO QDAY #30 tabs 06/22/24 Unknown Rx clindamycin HCl 300 mg capsule 600 mg (2 x 300 mg) PO .COMPLEX #2 11/02/24 Unknown Rx caps metoprolol tartrate 100 mg tablet 100 mg PO BID #60 tabs 11/08/24 Unknown Rx ezetimibe 10 mg tablet (Zetia) 10 mg PO DAILY #90 tabs 11/29/24 Unknown Rx hyoscyamine sulfate 0.125 mg 0.25 mg (2 x 0.125 mg) PO Q6H PRN 01/02/25 Unknown Rx tablet (Levsin) abdominal discomfort #20 tabs metoclopramide HCl 10 mg tablet 10 mg PO Q8H PRN n/v #12 tabs 01/02/25 Unknown Rx Allergy/AdvReac Type Severity Reaction Status Date / Time ixekizumab Allergy Intermediate Swelling Verified 01/02/25 15:14 hydrocodone (From Vicodin) Allergy Nausea Verified 01/02/25 15:14 Penicillins (PCN) Allergy Hives Verified 01/02/25 15:14 hyoscyamine AdvReac Intermediate emesis Verified 01/02/25 15:14 Family History Sister Hypertension Mother Thyroid disorder MVP (mitral valve prolapse) SVT (supraventricular tachycardia) Father Hypertension Hyperlipidemia Cancer Prostate Surgical History Hx of mitral valve repair (04/14/24) History of cholecystectomy (~03/2021) History of esophagogastroduodenoscopy (EGD) Hx of colonoscopy Hx of tubal ligation Hx of rotator cuff surgery Hx of foot surgery Hx of tonsillectomy History of hysterectomy 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 Smoking Status: Former smoker quit date: 11/27/11 alcohol intake: current alcohol intake frequency: holidays/special occasions only substance use type: does not use caffeine: Yes (2 cups daily) ROS ROS ED Constitutional Constitutional ED: Denies chills or fever(s) Eyes Eyes: Denies change in vision or diplopia ENT ENT ED: Denies rhinorrhea or sore throat Cardiovascular Cardiovascular: Denies chest pain or palpitations Respiratory/Chest Respiratory/Chest: Denies cough or dyspnea Gastrointestinal Gastrointestinal: Reports as per HPI, abdominal pain, bloating, diarrhea, nausea and vomiting; Denies hematemesis, hematochezia, hemorrhoids, melena or rectal bleeding Genitourinary Genitourinary ED: Denies dysuria or hematuria Musculoskeletal Musculoskeletal: Denies back pain or neck pain Integumentary Denies abscess or rash Neurologic Neurologic: Denies headache(s), paresthesias or weakness Psychiatric Psychiatric: Denies anxiety or suicidal thoughts EXAM Physical Exam Const Vital Signs: 01/02/25 15:11 01/02/25 16:13 Temperature 98.3 F 98.0 F Temperature Source Oral Oral Pulse Rate 64 60 Respiratory Rate 16 16 Blood Pressure 153/113 H 133/94 H Blood Pressure Mean 126 107 Pulse Ox 98 99 Oxygen Delivery Method Room Air Room Air Positive well nourished and well developed General Appearance ED: well developed and NAD HEENT Reports moist mucous membranes normocephalic and atraumatic Eyes PERRL and EOMs intact bilaterally Neck full ROM and supple Resp normal respiratory effort and clear to auscultation bilaterally Cardio regular rate, regular rhythm and no murmurs Rate: Negative for tachycardic GI non-tender and non-distended Auscultation: normoactive bowel sounds Palpation: soft Back/Spine no CVA tenderness General Back: other FROM Extremity normal to inspection General Extremety ED: Negative for edema, pulses abnormal or tenderness General Extremity: Negative for edema or pulses abnormal Neuro oriented x3, CN's II-XII intact bilaterally and no sensory deficits noted Sensorium / Orientation: awake and alert Motor Exam: strength 5/5 throughout Skin no rashes or lesions noted and no wounds MDM MDM MDM Narrative Medical decision making narrative: Patient is a very benign abdomen. At 1 point yesterday the pain was more on the right side and the patient stated that no it was diffuse, and they thought maybe she was getting appendicitis on top of what ever else this was. I reassured him I do not think that is the case. She has a very benign abdomen renowned is nontender. She sounds like she has a functional GI problem, it is possible it could be inflammatory or some type of colitis, inflammatory bowel disease, etc. Celiac and leaky gut syndrome are also in the differential. Given all this I think reasonable to give her fluids, medications for symptoms, obtain some labs but I do not think she needs an emergent CT right now and I think she can follow-up and have her outpatient CT and GI follow-up. Those labs were reviewed and very unremarkable including liver enzymes and her white blood count which is 4.4 with no left shift. After IV fluids, Reglan, Levsin, Toradol, she is feeling much better. I do not think she needs her CT emergently based on this data. She is comfortable getting it as scheduled in 2 days, and following up as scheduled. She is already on a PPI. Will prescribe her Reglan and Levsin to use as needed. History & Record Review Additional record(s) reviewed:: Prior labs (Negative stool study see HPI) Lab Data Attestation: I reviewed the patient's lab results. Labs: Laboratory Results - last 24 hr 01/02/25 15:45 WBC 4.4 RBC 3.98 L Hgb 13.2 Hct 37.4 MCV 94.0 MCH 33.2 H MCHC 35.3 RDW Std Deviation 43.4 RDW Coeff of Ernesto 12.6 Plt Count 232 MPV 9.0 Immature Gran % (Auto) 0.200 Neut % (Auto) 46.5 L Lymph % (Auto) 36.9 [place] % (Auto) 10.3 H Eos % (Auto) 5.0 Baso % (Auto) 1.1 H Absolute Neuts (auto) 2.0 Absolute Lymphs (auto) 1.61 Nucleated RBC % 0 Sodium 139 Potassium 3.4 Chloride 106 Carbon Dioxide 20.6 L Anion Gap 13 BUN 11 Creatinine 0.79 Estim Creat Clear Calc 93.50 Est GFR (MDRD) Non-Af 88 BUN/Creatinine Ratio 14.0 Glucose 88 Calcium 9.1 Total Bilirubin 0.60 AST 26 ALT 23 Alkaline Phosphatase 78 Total Protein 7.3 Albumin 4.0 Globulin 3.4 Albumin/Globulin Ratio 1.2 Lipase 27 Discharge Plan Triage Chief Complaint: Nausea/Vomiting/Diarrhea ED Provider: Florin Bowles Dx/Rx/DC Orders Clinical Impression: Abdominal bloating with cramps, Chronic diarrhea, Tenesmus Instructions: ED Understanding Colitis Prescriptions: New metoclopramide HCl 10 mg tablet 10 mg PO Q8H PRN (Reason: n/v) Qty: 12 0RF hyoscyamine sulfate [Levsin] 0.125 mg tablet 0.25 mg PO Q6H PRN (Reason: abdominal discomfort) Qty: 20 0RF No Action rizatriptan [Maxalt] 10 mg tablet 10 mg PO PRN PRN (Reason: MIGRAINES) topiramate 25 mg tablet 75 mg PO QHS Patient Comments: take 3 tablets by mouth at bedtime Tremfya 100 mg/mL auto-injector 100 mg subcut Q8W desvenlafaxine succinate 50 mg tablet extended release 24 hr 50 mg PO QDAY Rx Instructions: Take with 25 mg tablet to = 75 mg qHS pantoprazole 40 mg tablet,delayed release (DR/EC) 40 mg PO QDAY desvenlafaxine succinate 25 mg tablet extended release 24 hr 25 mg PO QHS Rx Instructions: Take with 50 mg tablet to = 75 mg qHS celecoxib 200 mg capsule 200 mg PO DAILY PRN (Reason: mild pain) losartan 100 mg tablet 100 mg PO QDAY Qty: 90 3RF amlodipine 5 mg tablet 5 mg PO QDAY Qty: 30 11RF clindamycin HCl 300 mg capsule 600 mg PO .COMPLEX Qty: 2 4RF Rx Instructions: 600 mg orally 1 hour prior to dental appointment for premed; metoprolol tartrate 100 mg tablet 100 mg PO BID Qty: 60 4RF ezetimibe [Zetia] 10 mg tablet 10 mg PO DAILY Qty: 90 3RF Primary Care Provider: Taz Sheehan Referrals: Taz Sheehan DO [Primary Care Provider] - 3-5 Days if not improving Print Language: Bulgarian Disposition Disposition: Home, Self Care
[2025-01-02] MEDS: Metoclopramide 10 MG/2 ML Vial 5 MG IV (15:43)
[2025-01-02] MEDS: Ketorolac 15 MG/ML Vial IV (15:43)
[2025-01-02] MEDS: 0.9% Normal Saline (1000mL) 1,000 ML 999 ML IV (15:44)
[2025-01-02 15:52] LABS: Absolute Lymphocyte Count 1.61 X10^3/uL (0.83-4.51); Basophil# 0.05 X10^3/uL; Basophil% 1.1 % (0-1); Eosinophil# 0.22 X10^3/uL; Hematocrit 37.4 % (37-47); Hemoglobin 13.2 g/dL (12.0-15.0); Lymphocyte # 1.61 X10^3/ul (0.83-4.51); Lymphocyte % 36.9 % (19-41); Mean Corp Hgb Conc 35.3 g/dL (32-36); Mean Corpuscular Hgb 33.2 pg (27.0-32.0); Monocyte# 0.45 X10^3/uL; Monocyte% 10.3 % (0-10); NRBC Flagged by Analyzer 0 % (0-5); Neutrophil # 2.02 X10^3/uL (2.7-7.7); Neutrophil % 46.5 % (47-70); Platelet Count 232 K/mm3 (150-450); RBC Distribution Width CV 12.6 % (11.6-14.6); RBC Distribution Width SD 43.4 fl (35.1-43.9); Red Blood Count 3.98 M/mm3 (4.2-5.4); White Blood Count 4.4 K/mm3 (4.4-11.0)
--- OUTSIDE RECORDS SUMMARY | 2025-01-02 15:56 | XMS RPT_ITS | CCD ---
Author Organization [facility] Care Team Providers Care Industrial Equipment Wirer Name Role Phone Shilpa Rosales Unavailable Sarah Platti Unavailable Betty Garner Unavailable Justin Macias Unavailable Summer Mejia Unavailable Unavailab Janet Dixon Unavailable Unavailable Slarb, Cally Unavailable Unavailable Unavailable Unavailable Andrew Baig Unavailable Unavailable Adelaide Alvarenga Unavailable Unavailable Andrew Stewart Unavailable Unavailable Shilpa Rosales CNP Unavailable Sarah Platti Unavailable Betty Garner Unavailable Justin Macias Unavailable Summer Mejia Unavailable Unavailab Andrew Oliveira LPN Unavailable Unavailable Colette MCGRATH Adelaide Unavailable Unavailable Slarb STONEWORKING BELT SANDER, Cally Unavailable Unavailable Unavailable Unavailable Shilpa Rosales Unavailable Ciesa TODDLER GUIDE, TODDLER GUIDE-C Shilpa Primary Care Provider Ciesa TODDLER GUIDE, TODDLER GUIDE-C Shilpa Referring Provider [phone] AGUS Roman Attending Provider [phone] Dr. Roger Dietz Attending Provider [phone] AGUS Roman Referring Provider [phone] Friend, Dr. Moody Attending Provider Ciesa TODDLER GUIDE, TODDLER GUIDE-C Shilpa Primary Care Provider Ciesa TODDLER GUIDE, TODDLER GUIDE-C Shilpa Referring Provider [phone] Dr. Nathan Guzman Primary Care Provider [phone] Dr. Nathan Guzman Referring Provider Krysta ABREU, TODDLER GUIDE-C Le Peñaloza Attending Provider [phone] AGUS Guthrie Attending Provider [phone] Dr. Fransisco Brown Other Provider [phone] Nathan Guzman Primary Care Provider [phone] Dr. Nathan Guzman Referring Provider Krysta ABREU NP-Leonardo Peñaloza Attending Provider [phone] AGUS Guthrie Attending Provider [phone] Dr. Fransisco Brown Attending Provider [phone] Dr. Fransisco Brown Other Provider [phone] Nathan Guzman Primary Care Provider [phone] Dr. Nathan Guzman Referring Provider [phone] MD Mario Fontanez Attending Provider [phone] Dr. Fransisco Brown Attending Provider [phone] Celina Baez Attending Provider Unavailable Dr. Malika Samuels Attending Provider [phone] Dr. Nathan Guzman Primary Care Provider [phone] Dr. Nathan Guzman Referring Provider [phone] MD Mario Fontanez Attending Provider [phone] Dr. Roger Dietz Attending Provider Dr. Nathan Guzman Primary Care Provider [phone] Dr. Nathan Guzman Referring Provider Dr. Malika Samuels Referring Provider Nathan Guzman Unavailable Unavailable Unavailable DO RUDY COKER Attending [facility] Nathan Stephenson Primary Care Unavaila [facility] Nathan Guzman Referring Unavaila ble MUOH, DO RUDY YANEZ Attending UnavailDr. Nathan Avery Frankie Primary Care Unavaila gallo Samuels MD, Malika Unavailable Megan LUIS, Nathan Coto Primary Care Provider Malika Samuels MD Unavailable Dr. Nathan Guzman Primary Care Provider Dr. Nathan Guzman Referring Provider Dr. Malika Samuels Attending Provider LUIS GRAHAM, CHA Coto Attending Unavailable DR NATHAN GUZMAN DO Primary Care Unavailab NATHAN Real A Primary Care Unavailable Dr. Natahn Guzman Primary Care Provider Dr. Nathan Guzman Referring Provider Dr. Malika Samuels Attending Provider Megan LUIS, Nathan Coto Primary Care Provider Naomy Thomas MD Unavailable Muoh DO, Rudy Unavailable Timo GRAHAM, Nnamdi Costa Unavailable [phone] Jeyson Hoff MD Unavailable DARIEN CHANDLER Admitting Unavailable DARIEN CHANDLER Attending Unavailable NATHAN GUZMAN A Primary Care Unavailable TROY BYRD Attending Unavailable NATHAN GUZMAN A Primary Care Unavailable MAULIK MITCHELL Attending Unavailable JEYSON GALVAN Referring Unavailable NATHAN GUZMAN Primary Care Unavailable Nathan Guzman DO Primary Care Provider MUOH, RUDY H Attending Unavailable NATHAN GUZMAN Primary Care Unavailable MUOH, RUDY H Attending Unavailable NATHAN GUZMAN Primary Care Unavailable Dr. Nathan Guzman DO Primary Care Provider Dr. Nathan Guzman DO Attending Provider [phone] Dr. Nathan Guzman DO Referring Provider Dr. Malika Samuels MD Attending Provider Dr. Malika Samuels MD Referring Provider GILLINOV, A IGOR Referring Unavailable MEGAN, NATHAN A Primary Care Unavailable GILLINOV, A IGOR Referring Unavailable MEGAN, NATHAN A Primary Care Unavailable GILLINOV, A IGOR Referring Unavailable MEGAN, NATHAN A Primary Care Unavailable GILLINOV, A IGOR Referring Unavailable MEGAN, NATHAN A Primary Care Unavailable MEGAN, NATHAN A Primary Care Unavailable GILLINOV, A IGOR Admitting Unavailable GILLINOV, A IGOR Attending Unavailable MANSOUR, JEYSON S Attending Unavailable GILLINOV, A IGOR Referring Unavailable MEGAN, NATHAN A Primary Care Unavailable DARIEN CHANDLER Referring Unavailable MEGAN, NATHAN A Primary Care Unavailable LAFFEY, SAM M Attending Unavailable BALLY, SILVIA Referring Unavailable MEGAN, NATHAN A Primary Care Unavailable GILLINOV, A IGOR Referring Unavailable MEGAN, NATHAN A Primary Care Unavailable GILLINOV, A IGOR Referring Unavailable MEGAN, NATHAN A Primary Care Unavailable GILLINOV, A IGOR Referring Unavailable MEGAN, NATHAN A Primary Care Unavailable MEGAN, NATHAN A Primary Care Unavailable SELF Referring Unavailable GILLINOV, A IGOR Attending Unavailable MEGAN, NATHAN A Primary Care Unavailable GILLINOV, A IGOR Referring Unavailable MEGAN, NATHAN A Primary Care Unavailable GILLINOV, A IGOR Referring Unavailable Megan Dr. Nathan LUIS Primary Care Provider Dr. Nathan Guzman DO Attending Provider [phone] Dr. Nathan Guzman DO Referring Provider [phone] Dr. Malika Samuels MD Attending Provider Dr. Mlaika Samuels MD Referring Provider Roof TODDLER GUIDE-C, Jeyson Perez Attending Provider Roof TODDLER GUIDE-C, Jeyson H Referring Provider Roof TODDLER GUIDE, Jeyson H Referring Unavailable Roof TODDLER GUIDE, Jeyson Perez Attending Unavailable Megan, Nathan Primary Care Unavailable Megan, Nathan Primary Care Unavailable Malika Samuels Attending Unavailable ArvindMalika Referring Unavailable Megan, Nathan Primary Care Unavailable Arvind, Malika Attending Unavailable Arvind, Malika Referring Unavailable Megan, Nathan Primary Care Unavailable Megan, Nathan Attending Unavailable Megan, Nathan Primary Care Unavailable Arvind, Malika Referring Unavailable Arvind, Malika Attending Unavailable Roof TODDLER GUIDE, Jeyson H Referring Unavailable Roof TODDLER GUIDE, Jeyson H Attending Unavailable Megna, Nathan Primary Care Unavailable Megan, Nathan Primary Care Unavailable Arvind, Malika Attending Unavailable Arvind, Malika Referring Unavailable Roof TODDLER GUIDE, Jeyson H Referring Unavailable Roof TODDLER GUIDE, Jeyson H Attending Unavailable Megan, Nathan Primary Care Unavailable Megan, Nathan Referring Unavailable Megan, Nathan Attending Unavailable Megan, Nathan Primary Care Unavailable Megan, Nathan Referring Unavailable Megan, Nathan Attending Unavailable Megan, Nathan Primary Care Unavailable Megan, Nathan Primary Care Unavailable Arvind, Malika Referring Unavailable Arvind, Malika Attending Unavailable Megan, Nathan Referring Unavailable Megan, Nathan Primary Care Unavailable Megan, Nathan Attending Unavailable Megan, Nathan Referring Unavailable Megan, Nathan Primary Care Unavailable Megan, Nathan Attending Unavailable Megan, Nathan Primary Care Unavailable J LuisRoger smith Attending Unavailable Roof TODDLER GUIDE, Jeyson H Attending Unavailable Megan, Nathan Primary Care Unavailable Megan, Nathan Referring Unavailable Megan, Nathan Primary Care Unavailable Arvind, Malika Attending Unavailable Megan, Nathan Primary Care Unavailable Arvind, Malika Attending Unavailable Megan, Nathan Referring Unavailable Megan, Nathan Primary Care Unavailable Arvind, Malika Attending Unavailable Arvind, Malika Attending Unavailable Megan, Nathan Primary Care Unavailable Roof TODDLER GUIDE, Jeyson H Attending Unavailable Megan, Nathan Primary Care Unavailable Megan, Nathan Primary Care Unavailable Arvind, Malika Attending Unavailable Arvind, Malika Referring Unavailable MeganDr. Nathan keller DO Primary Care Provider [phone] Dr. Nathan Guzman DO Attending Provider [phone] Allergies Allergy Classification Reported Allergen(s) Allergy Type Date of Onset Reaction(s) Facility Hyoscyamine (2 sources) Hyoscyamine Drug Allergy 01-16-20 GI Upset [facility] ixekizumab (2 sources) ixekizumab Drug Allergy 01-16-20 [facility] Opioid Agonists (2 sources) HYDROcodone Drug Allergy 05-15-20 GI [facility] Work Phone: Penicillins (antibiotic) (3 sources) Penicillins; Translations: [Penicillins] Drug Allergy 10-04-19 06 [facility] Work Phone: (20 sources) Penicillins; Translations: [Penicillins] allergy to substance 10-04-19 06 Hives, Unknown [facility] Work Phone: (20 sources) HYDROcodone; Translations: [HYDROCODONE] Drug Allergy 05-15-20 21 [facility] (20 sources) Hyoscyamine; Translations: [HYOSCYAMINE] Drug Allergy 03-26-20 22 [facility] (3 sources) Acetaminophen / HYDROcodone; Translations: [Vicodin TABS] Drug Allergy [facility] [address] DO Work Phone: (20 sources) ixekizumab; Translations: [Taltz SOSY] Drug Allergy 01-16-20 23 Swelling, Unknown [facility] (20 sources) Acetaminophen / HYDROcodone; Translations: [HYDROCODONE-ACET AMINOPHEN] Drug Allergy 07-22-20 23 Intolerance, Unknown [facility] (5 sources) ixekizumab; Translations: [IXEKIZUMAB] Drug Allergy 01-16-20 23 [facility] (1 source) HYDROcodone Drug Allergy 09-23-19 25 [facility] (1 source) Hyoscyamine Drug Allergy 09-23-19 25 [facility] Medications Current Medications Medication Drug Class(es) Dates Sig (Normalized) Sig (Original) 1 ml abatacept 125 mg/ml auto-injector (12 sources) Selective T Cell Costimulation Modulator Start: 11-11-2022 Abatacept (Orencia Clickject) 125 mg/mL auto-injector Active 125 MG SC EVERY WEEK November 11, 2022 2:43pm Start: 08-23-2022 End: 11-11-2022 Abatacept (Orencia Clickject ) 125 mg/mL auto-injector Discontinued 125 mg SC August 23, 2022 1:00am November 11, 2022 2:45pm Start: 08-23-2022 End: 11-11-2022 Abatacept (Orencia Clickject ) 125 mg/mL auto-injector Discontinued 125 MG SC August 23, 2022 1:00am November 11, 2022 2:45pm amLODIPine 5 mg oral tablet (20 sources) Dihydropyridine Calcium Channel Joshua Start: 06-01-2024 End: 06-22-2024 take 1 tablet by mouth once daily Amlodipine 5 mg tablet Active 5 mg PO daily June 22, 2024 11:55am Start: 11-11-2022 take 5 mg by mouth once daily Amlodipine Active 5 MG PO DAILY November 11, 2022 3:06pm Start: 07-04-2022 End: 11-11-2022 take 1 tablet by mouth once daily Amlodipine 10 mg tablet Discontinued 10 mg PO DAILY November 04, 2022 2:23pm November 11, 2022 3:06pm celecoxib 200 mg oral capsule (20 sources) Nonsteroidal Anti-inflammatory Drug Start: 01-06-2023 End: 09-12-2024 take 1 capsule by mouth once daily as needed for pain Celecoxib 200 mg capsule Active 200 mg PO DAILY as needed for mild pain November 20, 2023 12:00am Start: 01-06-2023 take 1 capsule by mo uth twice daily at mealtime, then take 1 capsule by mouth once daily celecoxib (CELEBREX) 200 mg capsule take 1 capsule by mouth twice a day with food for 2 weeks then 1 capsule daily 01/06/2023 Active Comment on above: take 1 capsule by mo uth twice a day with food for 2 weeks then 1 capsule daily clindamycin 300 mg oral capsule (5 sources) Lincosamide Antibacterial Start: End: take 2 capsules by mouth every hour Clindamycin Hcl 300 mg capsule Active 600 mg PO .COMPLEX 2 November 02, 2024 1:59pm 600 mg orally 1 hour prior to dental appointment for premed; 24 hr desvenlafaxine succinate 50 mg extended release oral tablet (20 sources) Serotonin and Norepinephrine Reuptake Inhibitor Start: desvenlafaxine ER (PRISTIQ) 50 mg 24 hr tablet Take with the 25 mg tablet for a dose of 75 mg daily 12/20/2023 Active Start: 12-08-2023 desvenlafaxine ER (PRISTIQ) 25 mg 24 hr tablet Take with the 50 mg tablet for a dose of 75 mg daily 12/08/2023 Active Start: 12-08-2023 take 1 tablet by clyde th once daily desvenlafaxine ER (PRISTIQ) 25 mg 24 hr tablet take 1 tablet by mouth daily with 50 milligram tablet 12/08/2023 Active Start: 10-09-2023 take 2 tablets by mo ut every twenty-four hours at bedtime, then take 3 tablets by mouth once daily at bedtime Desvenlafaxine Succinate 25 mg tablet extended release 24 hr Active 25 mg PO AT BEDTIME October 09, 2023 2:47pm Take with 50 mg tablet to = 75 mg qHS Start: 10-09-2023 Desvenlafaxine Succinate 50 mg tablet extended release 24 hr Active 50 mg PO daily October 09, 2023 12:00am Take with 25 mg tablet to = 75 mg qHS Start: 01-14-2022 take 1 tablet by clyde th every twenty-four hours Desvenlafaxine Succinate ER 50 MG Oral Tablet Extended Release 24 Hour Quantity: 60 Refills: 0 Ordered: 28-Aug-2022 DO Start : 14-Jan-2022 Active Start: 10-22-2021 take 1 tablet by clyde th once daily Desvenlafaxine Succinate ER 50 MG Oral Tablet Extended Release 24 Hour 1 (one) Tablet daily for 90 days Quantity: 90 {Tablet} Refills: 0 Ordered: 22-Oct-2021 Shilpa Rosales Mary Start : 22-Oct-2021 Active Start: 09-09-2021 End: 06-11-2021 take 1 tablet by mouth once daily Desvenlafaxine Succinate ER 50 MG Oral Tablet Extended Release 24 Hour 1 (one) Tablet daily for 90 days Quantity: 90 {Tablet} Refills: 0 Ordered: 09-Sep-2021 Shilpa Rosales CNP, CNP, Mary E Start : 09-Sep-2021 End : 11-Jun-2021 Active Start: 03-13-2021 End: 06-11-2021 take 1 tablet by mouth once daily Desvenlafaxine Succinate ER 50 MG Oral Tablet Extended Release 24 Hour 1 (one) Tablet daily for 90 days Quantity: 90 {Tablet} Refills: 0 Ordered: 13-Mar-2021 Shilpa Rosales CNP, CNP, Mary E Start : 13-Mar-2021 End : 11-Jun-2021 Inactive Start: 10-06-2020 take 1 tablet by clyde th once daily Desvenlafaxine Succinate ER 50 MG Oral Tablet Extended Release 24 Hour 1 (one) Tablet daily for 90 days Quantity: 90 {Tablet} Refills: 0 Ordered: 06-Oct-2020 Shilpa Rosales CNP, CNP, Mary E Start : 06-Oct-2020 Active Start: 02-28-2020 End: 05-28-2020 take 1 tablet by mouth once daily Desvenlafaxine Succinate ER 50 MG Oral Tablet Extended Release 24 Hour 1 (one) Tablet daily for 90 days Quantity: 90 {Tablet} Refills: 0 Ordered: 28-Feb-2020 Shilpa Rosales CNP, CNP, Mary E Start : 28-Feb-2020 End : 28-May-2020 Inactive Start: 11-18-2015 End: 10-09-2023 take 1 tablet by mouth every twenty-four hours at bedtime Desvenlafaxine Succinate 25 MG tablet extended release 24 hr Discontinued 50 mg PO AT BEDTIME November 18, 2015 12:00am October 09, 2023 2:49pm Start: 02-10-2015 take 1 tablet by clyde th every twenty-four hours, then take 1 tablet by mouth once daily PRISTIQ, 25MG (Oral Tablet Extended Release 24 Hour) 1 (one) Tablet ER 24HR Tablet ER 24HR qd for 30 days Refills: 0 Ordered: 15-May-2015 Sam Padilla DO Start : 10-Feb-2015 Active End: 01-09-2024 take 50 mg by mouth once daily at bedtime DESVENLAFAXINE SUCCINATE (PRISTIQ ORAL) Take 50 mg by mouth daily at bedtime. 0 01/09/2024 Discontinued (Duplicate Entry) Comment on above: Take 50 mg by mouth daily at bedtime. docusate sodium 50 mg / sennosides, long term 8.6 mg oral tablet (12 sources) Start: take 2 tablets by mouth every twelve hours as needed senna-docusate (SENNA-S) 8.6-50 mg per tablet Take 2 tablets by mouth every 12 hours as needed for constipation. 04/18/2024 Active ezetimibe 10 mg oral tablet (2 sources) Dietary Cholesterol Absorption Inhibitor Start: 5 take 1 tablet by mouth once daily Ezetimibe (Zetia) 10 mg tablet Active 10 mg PO DAILY November 29, 2024 12:00am furosemide 40 mg oral tablet (13 sources) Loop Diuretic Start: 4 End: 4 take 1 tablet by mouth once daily furosemide (LASIX) 40 mg tablet Take 1 tablet by mouth once daily for 7 days. 7 tablet 04/27/2024 Active 1 ml guselkumab 100 mg/ml auto-injector (20 sources) Interleukin-23 Antagonist Start: Guselkumab (Tremfya) 100 mg/mL auto-injector Active 100 mg SC every 8 weeks April 07, 2023 12:00am inject 1 mL by subcutaneous inje ction once guselkumab (Tremfya) 100 mg/mL injection Inject 1 mL (100 mg) under the skin 1 time. Active losartan potassium 100 mg oral tablet (20 sources) Angiotensin 2 Receptor Joshua Start: 10-09-2023 End: 06-10-2024 take 1 tablet by mouth once daily Losartan 100 mg tablet Active 100 mg PO daily June 10, 2024 5:09pm Start: 01-14-2023 take 1 tablet by clyde th once daily at bedtime losartan (COZAAR) 50 mg tablet Take 50 mg by mouth daily at bedtime. 0 01/14/2023 Active Start: 11-04-2022 End: 10-09-2023 take 2 tablets by mouth once daily Losartan 50 mg tablet Discontinued 100 mg PO DAILY November 04, 2022 12:00am October 09, 2023 2:48pm Start: 11-04-2022 End: 10-09-2023 take 100 mg by mouth once daily Losartan Discontinued 100 MG PO DAILY November 04, 2022 12:00am October 09, 2023 2:48pm Start: 04-13-2022 End: 11-04-2022 take 1 tablet by mouth at bedtime Losartan 100 mg tablet Discontinued 100 mg PO AT BEDTIME April 13, 2022 12:00am November 04, 2022 2:23pm Start: 02-08-2022 take 1 tablet by clyde th twice daily Losartan Potassium 50 MG Oral Tablet TAKE 1 TABLET TWICE DAILY. Quantity: 180 Refills: 3 Ordered: 10-Mar-2022 DO Start : 08-Feb-2022 Active Comment on above: Take 50 mg by mouth daily at bedtime. MULTIVITAMIN-FERROUS FUMARATE-FOLIC ACID 18 MG-400 MCG TABLET (12 sources) Start: 04-18-20 take 1 tablet by mouth once daily at breakfast MULTIVITAMIN-FERROUS FUMARATE-FOLIC ACID 18 MG-400 MCG TABLET Take 1 tablet by mouth daily with breakfast. 04/18/2024 Active oxyCODONE hydrochloride 5 mg oral tablet (20 sources) Opioid Agonist Start: 04-18-20 End: 04-25-20 take 1-2 tablets by mouth every six hours as needed for pain and pain, then take 1 tablet by mouth every six hours as needed for pain and pain oxyCODONE IR (ROXICODONE) 5 mg immediate release tablet Indications: Postoperative pain Take 1-2 tablets by mouth every 6 hours as needed for pain for 3 days, THEN 1 tablet every 6 hours as needed for pain for up to 4 days. 40 tablet 04/18/2024 04/25/2024 Active Start: 05-15-2021 End: 09-19-2021 take 1 capsule by mouth every eight hours as needed for pain Oxycodone 5 mg capsule Discontinued 5 mg PO Q8H as needed for pain 08 12May 15, 2021 September 19, 2021 10:06am pantoprazole 40 mg delayed release oral tablet (20 sources) Proton Pump Inhibitor Start: 05-10-2024 take 1 tablet by mouth once daily Pantoprazole 40 mg tablet,delayed release (DR/EC) Active 40 mg PO daily May 10, 2024 12:00am Start: 01-08-2023 take 2 tablets by mo [facility] once daily pantoprazole DR (PROTONIX) 40 mg tablet Take 80 mg by mouth once daily. 01/08/2023 Active Start: 07-31-2022 End: 11-20-2023 take 1 tablet by mouth once daily in the morning Pantoprazole 40 mg tablet,delayed release (DR/EC) Discontinued 40 mg PO EVERY MORNING July 31, 2022 5:25pm November 20, 2023 3:47am Start: 05-01-2022 End: 07-31-2022 take 1 tablet by mouth twice daily Pantoprazole 40 mg tablet,delayed release (DR/EC) Discontinued 40 mg PO TWICE A DAY 60 May 01, 2022 12:00am July 31, 2022 5:26pm Comment on above: Take 80 mg by mouth once daily. perflutren lipid microspheres 1.3 mL in NaCl (PF) 0.9% 10 mL injection (DEFINITY) (4 sources) Start: 04-18-2024 End: 04-25-2024 perflutren lipid microspheres 1.3 mL in NaCl (PF) 0.9% 10 mL injection (DEFINITY) rizatriptan 10 mg oral tablet (20 sources) Serotonin-1b and Serotonin-1d Receptor Agonist Start: 06-06-2020 Rizatriptan (Maxalt) 10 mg tablet Active 10 mg PO NEEDED as needed for MIGRAINES February 09, 2021 12:00am Start: 05-17-2020 take 1 tablet by clyde th every hour Maxalt 10 MG Oral Tablet 1 (one) Tablet at immediate onset of graves , may repeat in one hr for 0 days Quantity: 12 {Tablet} Refills: 0 Ordered: 17-May-2020 Start : 17-May-2020 Active Start: 11-17-2018 take 1 tablet by clyde th every hour Maxalt 10 MG Oral Tablet 1 (one) Tablet at immediate onset of graves , may repeat in one hr for 0 days Quantity: 12 {Tablet} Refills: 3 Ordered: 17-Nov-2018 Connie SARKAR, Shilpa Rosales CNP, Aarti Start : 17-Nov-2018 Active 125 ml sodium chloride 9 mg/ml prefilled syringe (4 sources) Start: 04-18-2024 End: 04-25-2024 sodium chloride 0.9 % (flush) 10 mL (BD POSIFLUSH) sulfamethoxazole 800 mg / trimethoprim 160 mg oral tablet (4 sources) Dihydrofolate Reductase Inhibitor Antibacterial, Sulfonamide Antimicrobial Start: 04-18-2024 End: 04-23-2024 take 1 tablet by mouth twice daily sulfamethoxazol e-trimethoprim (BACTRIM DS) 800-160 mg per tablet Take 1 tablet by mouth two times a day for 5 days. 10 tablet 04/18/2024 04/23/2024 Active topiramate 25 mg oral tablet (20 sources) Start: 04-07-2023 take 75 mg by mouth at bedtime Topiramate Active 75 MG PO AT BEDTIME April 07, 2023 12:00am Start: 03-26-2022 Topiramate 25 MG Oral Tablet Quantity: 180 Refills: 0 Ordered: 23-Jul-2022 DO Start : 26-Mar-2022 Active Start: 02-09-2021 End: 04-07-2023 Topiramate 50 mg tablet Disc ontinued 75 mg PO AT BEDTIME February 09, 2021 10:27am April 07, 2023 3:10pm Start: 02-09-2021 End: 04-07-2023 take 75 mg by mouth at bedtime Topiramate Discontinued 75 MG PO AT BEDTIME February 09, 2021 10:27am April 07, 2023 3:10pm Start: 02-28-2020 take 3 tablets by mo uth at bedtime Topiramate 25 mg tablet Active 75 mg PO AT BEDTIME April 07, 2023 12:00am Start: 04-05-2018 take 1 tablet by clyde th once at bedtime Topamax 100 MG Oral Tablet 1 (one) Tablet q hs for 30 days Quantity: 30 {Tablet} Refills: 3 Ordered: 05-Apr-2018 Shilpa Rosales CNP, CNP Aarti Start : 05-Apr-2018 Active Start: 05-30-2013 End: 02-09-2021 take 2 tablets by mouth at bedtime Topiramate 50 MG tablet Discontinued 100 mg PO AT BEDTIME May 30, 2013 12:00am February 09, 2021 10:32am Start: 05-30-2013 End: 02-09-2021 take 100 mg by mouth at bedtime Topiramate Discontinue d 100 MG PO AT BEDTIME May 30, 2013 12:00am February 09, 2021 10:32am take 1 tablet by clyde th twice daily topiramate (Topamax) 25 mg tablet Take 1 tablet (25 mg) by mouth 2 times a day. Active Comment on above: Take 75 mg by mouth once daily. Completed/Discontinued Medications Medication Drug Class(es) Dates Sig (Normalized) Sig (Original) acetaminophen 500 mg oral capsule (15 sources) Start: 05-10-2024 End: 05-25-2024 take 2 capsules by mouth every six hours as needed for pain Acetaminophen 500 mg capsule Discontinued 1000 mg PO EVERY 6 HOURS as needed for pain May 10, 2024 12:00am May 25, 2024 1:02pm Start: 04-18-2024 take 2 tablets by mo [facility] every six hours as needed acetaminophen (TYLENOL) 500 mg tablet Take 2 tablets by mouth every 6 hours as needed for pain. 04/18/2024 Active acetaminophen 300 mg / HYDROcodone bitartrate 7.5 mg oral tablet (20 sources) Opioid Agonist Start: 05-31-2013 End: 05-15-2015 VICODIN ES, 7.5-300MG (Oral Tablet) 1 Tablet take one now and again in 8hrs if headache not gone for 0 days Quantity: 2 {Tablet} Refills: 0 Ordered: 15-May-2015 Judy Garcia CMA Start : 31-May-2013 End : 15-May-2015 Inactive acetaminophen 325 mg / propoxyphene napsylate 50 mg oral tablet (20 sources) Opioid Agonist Start: 06-07-2008 take 1 tablet by mouth every six hours as needed DARVOCET-N 50, 50-325MG (Oral Tablet) 1 (one) Tablet q 6 hour prn for 0 days Quantity: 60 {Tablet} Refills: 0 Ordered: 01-Jan-2010 Georgia Lilly Start : 07-Jun-2008 Inactive acetaminophen 325 mg / propoxyphene napsylate 50 mg oral tablet (4 sources) Opioid Agonist Start: 06-07-2008 take 1 tablet by mouth every six hours as needed DARVOCET-N 50, 50-325MG (Oral Tablet) 1 (one) Tablet q 6 hour prn for 0 days Quantity: 60 {Tablet} Refills: 0 Ordered: 01-Jan-2010 Georgia Lilly Start : 07-Jun-2008 Inactive 0.8 ml adalimumab 50 mg/ml prefilled syringe (20 sources) Tumor Necrosis Factor Joshua Start: 01-23-2017 End: 02-09-2021 Adalimumab 40 MG/0.8 ML syringe kit Discontinued 40 mg SQ Q14D January 23, 2017 12:00am February 09, 2021 10:32am End: 01-13-2023 ADALIMUMAB (HUMIRA PEN SUBCU TANEOUS) Inject subcutaneously. 0 01/13/2023 Discontinued (Course of therapy completed) HUMIRA, 10MG/0.2 ML (Subcutaneous Prefilled Syringe Kit) uad (10 MG/0.2ML) Inactive Comment on above: Inject subcutaneousl y. albuterol 0.83 mg/ml inhalation solution (20 sources) beta2-Adrenergic Agonist Start: 04-26-20 End: 06-05-20 take 2.5 mg by inhalation every four hours as needed for wheezing Albuterol Sulfate 2.5 MG/3 ML solution for nebulization Discontinued 2.5 mg INHALATION EVERY 4 HOURS NEEDED April 26, 2019 12:00am June 05, 2020 2:21pm Use q4 hours and PRN for wheezing ALPRAZolam 0.5 mg oral tablet (12 sources) Benzodiazepine Start: 08-23-19 ALPRAZolam 0.5 MG Oral Tablet Quantity: 90 Refills: 0 Ordered: 23-Aug-2022 DO Start : 23-Aug-2022 Complete Start: 08-23-2022 End: 09-22-2022 take 1 tablet by mouth three times daily as needed for anxiety Alprazolam 0.5 mg tablet Discontinued 0.5 mg PO THREE TIMES A DAY as needed for anxiety 90 August 23, 2022 1:00am September 21, 2022 1:00am September 22, 2022 1:05am amitriptyline hydrochloride 10 mg oral tablet (20 sources) Tricyclic Antidepressant Start: 08-07-2011 End: 03-04-2012 take 1 tablet by mouth once daily at bedtime AMITRIPTYLINE HCL, 10MG (Oral Tablet) 1 Tablet qhs for 0 days Quantity: 30 {Tablet} Refills: 3 Ordered: 04-Mar-2012 Kacey Perez RN Start : 07-Aug-2011 End : 04-Mar-2012 Inactive aspirin 81 mg delayed release oral tablet (15 sources) Platelet Aggregation Inhibitor, Nonsteroidal Anti-inflammatory Drug Start: 05-10-2024 End: 09-23-2024 take 1 tablet by mouth once daily Aspirin (Adult Aspirin Regimen) 81 mg tablet,delayed release (DR/EC) Discontinued 81 mg PO daily May 10, 2024 12:00am September 23, 2024 11:37am Start: 04-18-2024 take 1 tablet by clyde th once daily aspirin 81 mg chewable tablet 1 tablet by ORAL/FEEDING TUBE route once daily. 04/18/2024 Active atropine sulfate 0.025 mg / diphenoxylate hydrochloride 2.5 mg oral tablet (20 sources) Anticholinergic, Cholinergic Muscarinic Antagonist, Antidiarrheal Start: 11-20-2023 End: 05-25-2024 Diphenoxylate-Atropine (Lomotil) 2.5-0.025 mg tablet Discontinued 1 {tbl} PO 4 TIMES DAILY as needed for diarrhea 14 12November 20, 2023 5:17am May 25, 2024 1:03pm Start: 07-16-2022 Diphenoxylate- Atropine 2.5-0.025 MG Oral Tablet Quantity: 60 Refills: 0 Ordered: 16-Jul-2022 DO Start : 16-Jul-2022 Complete Start: 04-05-2022 End: 11-11-2022 Diphenoxylate-Atropine (Lomo til) 2.5-0.025 mg tablet Discontinued 1 {tbl} PO TWICE A DAY July 16, 2022 4:17pm November 11, 2022 2:44pm azelastine hydrochloride 0.206 mg/actuat metered dose nasal spray (20 sources) Histamine-1 Receptor Antagonist Start: 06-25-2010 End: 04-15-2011 ASTEPRO, 0.15% (Nasal Solution) 2 puffs Solution bid for 0 days Quantity: 1 {Solution} Refills: 0 Ordered: 15-Apr-2011 Georgia Lilly Start : 25-Jun-2010 End : 15-Apr-2011 Inactive benzonatate 100 mg oral capsule (20 sources) Non-narcotic Antitussive Start: 04-26-2019 End: 06-05-2020 take 1 capsule by mouth every eight hours as needed for cough Benzonatate 100 MG capsule Discontinued 100 mg PO EVERY 8 HOURS NEEDED as needed for Cough April 26, 2019 12:00am June 05, 2020 2:20pm budesonide 3 mg delayed release oral capsule (13 sources) Corticosteroid Start: 05-28-2022 End: 07-04-2022 take 3 capsules by mouth once daily Budesonide 3 mg capsule,delayed,e xtend.release Discontinued 9 mg PO DAILY May 28, 2022 12:00am July 04, 2022 9:34am Start: 05-28-2022 End: 07-04-2022 take 9 mg by mouth once daily Budesonide Discontinued 9 MG PO DAILY 90 May 28, 2022 12:00am July 04, 2022 9:34am busPIRone hydrochloride 15 mg oral tablet (10 sources) Start: 09-11-2022 End: 11-11-2022 take 1 tablet by mouth twice daily Buspirone 15 mg tablet Discontinued 15 mg PO TWICE A DAY 60 September 11, 2022 1:00am November 11, 2022 2:43pm cholestyramine resin 4000 mg powder for oral suspension (12 sources) Bile Acid Sequestrant Start: 07-16-2022 Cholestyramine 4 GM/DOSE Oral Powder Quantity: 369 Refills: 0 Ordered: 16-Jul-2022 DO Start : 16-Jul-2022 Complete Start: 07-16-2022 End: 11-11-2022 Cholestyramine (With Sugar) 4 gram powder Discontinued 4 g PO .COMPLEX 378 July 16, 2022 1:00am November 11, 2022 2:43pm 4 grams orally once or twice a day; avoid other meds within 1hr before or 4-6hr after dose Start: 07-16-2022 End: 11-11-2022 Cholestyramine (With Sugar) Discontinued 4 GM PO .COMPLEX 378 July 16, 2022 1:00am November 11, 2022 2:43pm 4 grams orally once or twice a day; avoid other meds within 1hr before or 4-6hr after dose ciprofloxacin 500 mg oral tablet (20 sources) Quinolone Antimicrobial Start: 11-08-2022 take 1 tablet by mouth twice daily Ciprofloxacin HCl - 500 MG Oral Tablet take 1 tablet by mouth twice a day for 3 days Quantity: 6 Refills: 0 Ordered: 08-Nov-2022 DO Start : 08-Nov-2022 Complete Start: 03-07-2017 End: 03-17-2017 take 1 tablet by mouth twice daily Cipro 500 MG Oral Tablet 1 (one) Tablet bid for 10 days Quantity: 20 {Tablet} Refills: 0 Ordered: 07-Mar-2017 Shilpa Rosales Mary Start : 07-Mar-2017 End : 17-Mar-2017 Inactive clarithromycin 500 mg oral tablet (20 sources) Macrolide Antimicrobial Start: 04-12-2010 End: 04-15-2011 take 1 tablet by mouth twice daily at mealtime BIAXIN, 500MG (Oral Tablet) 1 Tablet bid with meals for 0 days Quantity: 20 {Tablet} Refills: 0 Ordered: 15-Apr-2011 Vijaya Georgia Start : 12-Apr-2010 End : 15-Apr-2011 Inactive clobetasol propionate 0.5 mg/ml topical solution (1 source) Corticosteroid Start: 2023 End: 01-09-2024 Clobetasol Propionate (TEMOVATE) 0.05 % external solution apply to scalp nightly for 2 weeks then take 1 week off BEFORE RE... (REFER TO PRESCRIPTION NOTES). 0 2023 01/09/2024 Discontinued (Discontinued by Patient) codeine sulfate 30 mg oral tablet (20 sources) Opioid Agonist Start: 07-31-2022 End: 09-11-2022 take 1 tablet by mouth at bedtime Codeine Sulfate 30 mg tablet Discontinued 30 mg PO AT BEDTIME August 23, 2022 September 21, 2022 1:00am September 11, 2022 6:41pm colestipol hydrochloride 1000 mg oral tablet (20 sources) Bile Acid Sequestrant Start: 05-10-2024 End: 05-25-2024 Colestipol 1 gram tablet Discontinued 1 g PO ONCE May 10, 2024 12:00am May 25, 2024 1:02pm Start: 11-29-2022 take 2 tablets by mo uth twice daily colestipol (COLESTID) 1 gram tablet Take 2 g by mouth twice daily. 11/29/2022 Suspended Start: 11-25-2022 End: 11-20-2023 take 4 g by mouth twice daily Colestipol Discontinued 4 GM PO TWICE A DAY November 25, 2022 1:16pm November 20, 2023 3:46am Start: 11-11-2022 End: 11-20-2023 Colestipol 1 gram tablet Discontinued 4 g PO TWICE A DAY November 25, 2022 1:16pm November 20, 2023 3:46am Start: 11-11-2022 End: 11-25-2022 take 2 g by mouth twice daily Colestipol Discontinued 2 GM PO TWICE A DAY November 11, 2022 12:00am November 25, 2022 1:16pm Start: 04-05-2022 Colestipol HCl - 1 GM Oral Tablet Quantity: 120 Refills: 0 Ordered: 08-Apr-2022 DO Start : 05-Apr-2022 Active Start: 04-05-2022 End: 04-18-2022 take 1-2 tablets by mouth once daily Colestipol 1 gram tablet Discontinued 2 g PO DAILY 60 April 05, 2022 12:00am April 18, 2022 8:09am take 1-2 tablets once a day, avoid taking with other medications Start: 04-05-2022 End: 04-18-2022 take 1-2 tablets by mouth once daily Colestipol Discontinued 2 GM PO DAILY 60 April 05, 2022 12:00am April 18, 2022 8:09am take 1-2 tablets once a day, avoid taking with other medications Comment on above: Take 2 g by mouth tw ice daily. dicyclomine hydrochloride 10 mg oral capsule (20 sources) Anticholinergic Start: 03-26-20 End: 04-05-20 Dicyclomine 10 mg capsule Discontinued 10 mg PO TWICE A DAY 90 March 26, 2022 12:00am April 05, 2022 10:29am take two times a day and once as needed for one week then three times a day as needed. doxycycline monohydrate 100 mg oral capsule (20 sources) Tetracycline-class Drug Start: 04-26-20 End: 06-05-20 take 1 capsule by mouth twice daily Doxycycline Monohydrate 100 MG capsule Discontinued 100 mg PO TWICE A DAY April 26, 2019 12:00am June 05, 2020 2:20pm DULoxetine 30 mg delayed release oral capsule (20 sources) Serotonin and Norepinephrine Reuptake Inhibitor Start: 09-07-19 End: 09-23-19 15 CYMBALTA, 30MG (Oral Capsule Delayed Release Particles) [address] Part QD for 0 days Quantity: 30 {Capsule} Refills: 0 Ordered: 23-Sep-2014 MERARI Richter LPN Start : 07-Sep-2014 End : 23-Sep-2014 Inactive escitalopram 20 mg oral tablet (20 sources) Serotonin Reuptake Inhibitor Start: 05-15-20 End: 05-15-20 15 take 1 tablet by mouth once daily LEXAPRO, 20MG (Oral Tablet) 1 (one) Tablet daily for 360 days Refills: 0 Ordered: 15-May-2015 Libertad Rivera DO Start : 15-May-2015 End : 15-May-2015 Discontinued 0.5 ml etanercept 50 mg/ml injection (20 sources) Tumor Necrosis Factor Joshua ENBREL, 50MG/ML (Subcutaneous Solution) 1 injection q 10 days for 0 days Refills: 0 Ordered: 01-Jan-2010 Georiga Lilly Inactive ENBREL, 50MG/ML (Subcutaneous Solution) 1 injection twice weekly (50 MG/ML) Inactive ENBREL, 50MG/ML (Subcutaneous Solution) 1 injection q 10 days for 0 days Refills: 0 Ordered: 01-Jan-2010 Georgia Lilly Inactive ENBREL, 50MG/ML (Subcutaneous Solution) 1 injection twice weekly (50 MG/ML) Inactive ENBREL, 50MG/ML (Subcutaneous Solution) 1 injection q 10 days for 0 days Refills: 0 Ordered: 01-Jan-2010 Georgia Lilyl Inactive ENBREL, 50MG/ML (Subcutaneous Solution) 1 injection twice weekly (50 MG/ML) Inactive ENBREL, 50MG/ML (Subcutaneous Solution) 1 injection q 10 days for 0 days Refills: 0 Ordered: 01-Jan-2010 Georgia Lilly Inactive ENBREL, 50MG/ML (Subcutaneous Solution) 1 injection twice weekly (50 MG/ML) Inactive flavoxATE hydrochloride 100 mg oral tablet (20 sources) Cholinergic Muscarinic Antagonist Start: 01-26-2010 End: 01-31-2010 take 2 tablets by mouth three times daily as needed URISPAS, 100MG (Oral Tablet) 2 Tablet tid/prn for 5 days Quantity: 15 {Tablet} Refills: 0 Ordered: 26-Jan-2010 Cammie Ramos Start : 26-Jan-2010 End : 31-Jan-2010 Inactive fluconazole 150 mg oral tablet (20 sources) Azole Antifungal Start: 06-28-2019 End: 03-24-2020 Fluconazole 150 MG Oral Tablet 1 (one) Tablet PO q 72h x 2 doses for 0 days Quantity: 2 {Tablet} Refills: 0 Ordered: 24-Mar-2020 Andrew Stewart LPN Start : 28-Jun-2019 End : 24-Mar-2020 Inactive griseofulvin 500 mg oral tablet (20 sources) Start: 12-09-2007 End: 03-17-2008 take 1 tablet by mouth once daily GRISEOFULVIN MICROSIZE, 500MG (Oral Tablet) 1 (one) Tablet qd for 0 days Quantity: 45 {Tablet} Refills: 0 Ordered: 09-Dec-2007 Cammie Ramos Start : 09-Dec-2007 End : 17-Mar-2008 Discontinued hydroCHLOROthiazide 12.5 mg oral tablet (12 sources) Thiazide Diuretic Start: 04-07-2023 End: 04-21-2023 take 1 tablet by mouth once daily Hydrochlorothiazide 12.5 mg tablet Discontinued 12.5 mg PO DAILY April 07, 2023 3:53pm April 21, 2023 11:19am hyoscyamine sulfate 0.125 mg oral tablet (20 sources) Start: 03-25-2022 End: 03-26-2022 Hyoscyamine Sulfate Discontinued 0 .ROUTE .COMPLEX 60 March 25, 2022 10:59am March 26, 2022 1:02pm take 1 tablet by mouth TWO TO FOUR TIMES A DAY if needed for DYSPEPSIA - TAKE 2 TIMES DAILY AND ONCE NEEDED FOR 1 WEEK, THEN NEEDED ONLY THEREAFTER Start: 03-25-2022 End: 03-26-2022 Hyoscyamine Sulfate Disconti nued 0 .ROUTE .COMPLEX 60 March 25, 2022 11:59am March 26, 2022 2:02pm take 1 tablet by mouth TWO TO FOUR TIMES A DAY if needed for DYSPEPSIA - TAKE 2 TIMES DAILY AND ONCE NEEDED FOR 1 WEEK, THEN NEEDED ONLY THEREAFTER Start: 03-14-2022 End: 03-26-2022 Hyoscyamine Sulfate 0.125 mg tablet Discontinued 0 .ROUTE .COMPLEX 60 March 25, 2022 11:59am March 26, 2022 2:02pm take 1 tablet by mouth TWO TO FOUR TIMES A DAY if needed for DYSPEPSIA - TAKE 2 TIMES DAILY AND ONCE NEEDED FOR 1 WEEK, THEN NEEDED ONLY THEREAFTER Start: 03-14-2022 End: 03-25-2022 Hyoscyamine Sulfate 0.125 mg tablet Discontinued 0.125 mg PO 2 to 4 times per day as needed for dyspepsia 60 March 14, 2022 12:00am March 25, 2022 11:59am take two times a day and once PRN for one week then as needed only. 1 ml ixekizumab 80 mg/ml auto-injector (17 sources) Interleukin-17A Antagonist Start: 04-05-2022 End: 07-04-2022 Ixekizumab (Taltz Autoinjector) 80 mg/mL auto-injector Discontinued 80 mg SC every 4 weeks April 05, 2022 12:00am July 04, 2022 9:34am ketorolac tromethamine 10 mg oral tablet (20 sources) Nonsteroidal Anti-inflammatory Drug, Cyclooxygenase Inhibitor Start: 08-03-2010 End: 03-04-2012 take 1 tablet by mouth every six hours as needed KETOROLAC TROMETHAMINE, 10MG (Oral Tablet) 1 Tablet q 6 hours prn for 0 days Quantity: 12 {Tablet} Refills: 0 Ordered: 04-Mar-2012 Kacey Perez RN Start : 03-Aug-2010 End : 04-Mar-2012 Inactive lamoTRIgine 150 mg oral tablet (20 sources) Mood Stabilizer, Anti-epileptic Agent Start: 04-04-2009 LAMICTAL, 150MG (Oral Tablet) 1 tab Tablet qd for 0 days Quantity: 30 {Tablet} Refills: 6 Ordered: 01-Jan-2010 Georgia Lilly Start : 04-Apr-2009 Inactive leflunomide 20 mg oral tablet (20 sources) Antirheumatic Agent Start: 11-04-2022 End: 11-11-2022 take 1 tablet by mouth once Leflunomide 20 mg tablet Discontinued 20 mg PO ONCE November 04, 2022 2:23pm November 11, 2022 2:44pm Start: 07-04-2022 End: 11-04-2022 Leflunomide 20 mg tablet Dis continued 20 mg PO July 04, 2022 1:00am November 04, 2022 2:24pm levoFLOXacin 500 mg oral tablet (20 sources) Quinolone Antimicrobial Start: 12-19-2022 levoFLOXacin 500 MG Oral Tablet Quantity: 10 Refills: 0 Ordered: 19-Dec-2022 DO Start : 19-Dec-2022 Complete Start: 06-25-2010 End: 04-15-2011 take 1 tablet by mouth once daily LEVAQUIN, 500MG (Oral Tablet) 1 Tablet qd for 0 days Quantity: 10 {Tablet} Refills: 0 Ordered: 15-Apr-2011 Georgia Lilly Start : 25-Jun-2010 End : 15-Apr-2011 Inactive LORazepam 0.5 mg oral tablet (20 sources) Benzodiazepine Start: 03-04-2012 End: 04-05-2016 take 1 tablet by mouth twice daily as needed LORazepam 0.5 MG Oral Tablet 1 Tablet bid prn for 0 days Quantity: 40 {Tablet} Refills: 0 Ordered: 05-Apr-2016 Cally Bales LPN Start : 04-Mar-2012 End : 05-Apr-2016 Discontinued magnesium oxide 400 mg oral tablet (15 sources) Start: 05-10-2024 End: 05-25-2024 take 1 tablet by mouth once daily Magnesium Oxide 400 mg magnesium tablet Discontinued 400 mg PO daily May 10, 2024 12:00am May 25, 2024 1:03pm Start: 04-30-2024 take 1 tablet by clyde th twice daily magnesium oxide (MAG-OX) 400 mg (241.3 mg magnesium) tablet Take 1 tablet by mouth two times a day. 04/30/2024 Active Start: 04-18-2024 take 1 tablet by clyde th once daily magnesium oxide (MAG-OX) 400 mg (241.3 mg magnesium) tablet Take 1 tablet by mouth once daily. 14 tablet 04/18/2024 Active meloxicam 7.5 mg oral tablet (20 sources) Nonsteroidal Anti-inflammatory Drug Start: 07-02-2013 End: 05-15-2015 take 1 tablet by mouth once daily at mealtime MELOXICAM, 7.5MG (Oral Tablet) 1 Tablet daily for 0 days Quantity: 30 {Tablet} Refills: 0 Ordered: 15-May-2015 Judy Garcia CMA Start : 02-Jul-2013 End : 15-May-2015 Inactive Comments: with food Comment on above: with food methylPREDNISolone 4 mg oral tablet (20 sources) Corticosteroid Start: 10-01-2021 End: 03-14-2022 take 1 tablet by mouth once daily Methylprednisolone (Medrol (Chaparro)) 4 mg tablets,dose pack Discontinued 4 mg PO DAILY October 01, 2021 1:00am March 14, 2022 5:16pm one tab by mouth as directed metoprolol tartrate 100 mg oral tablet (20 sources) beta-Adrenergic Joshua Start: 05-25-2024 End: 11-08-2024 take 1 tablet by mouth twice daily Metoprolol Tartrate 100 mg tablet Discontinued 100 mg PO TWICE A DAY June 10, 2024 5:08pm November 08, 2024 8:50am Start: 05-11-2024 End: 05-25-2024 take 1 tablet by mouth twice daily Metoprolol Tartrate 50 mg tablet Discontinued 50 mg PO TWICE A DAY 180 May 11, 2024 9:55am May 25, 2024 4:12pm Start: 04-30-2024 End: 07-29-2024 take 1 tablet by mouth twice daily Metoprolol Tartrate 25 mg tablet Discontinued 25 mg PO TWICE A DAY 0 May 10, 2024 3:10pm May 11, 2024 9:33am Start: 03-23-2024 End: 05-10-2024 Metoprolol Tartrate 25 mg ta blet Discontinued 12.5 mg PO TWICE A DAY 90 March 23, 2024 12:00am May 10, 2024 3:10pm Start: 01-09-2024 End: 04-08-2024 take 0.5 tablet by mouth twice daily metoprolol tartrate, short acting, (LOPRESSOR) 25 mg tablet Indications: Supraventricular tachycardia (HCC) , Intermittent palpitations , Essential (primary) hypertension Take 0.5 tablets by mouth two times a day. 90 tablet 3 01/09/2024 Active Start: 11-05-2023 End: 01-09-2024 take 1 tablet by mouth once metoprolol tartrate, short acting, (LOPRESSOR) 50 mg tablet Take 1 tablet by mouth every afternoon. 0 11/05/2023 01/09/2024 Discontinued (Dosage adjustment) Start: 10-09-2023 End: 03-23-2024 take 1 tablet by mouth twice daily Metoprolol Tartrate 50 mg tablet Discontinued 50 mg PO TWICE A DAY 180 October 10, 2023 8:54am March 23, 2024 2:17pm Start: 11-11-2022 Metoprolol Tar trate 25 MG Oral Tablet Quantity: 60 Refills: 0 Ordered: 09-Jan-2023 DO Start : 11-Nov-2022 Active Start: 11-11-2022 End: 10-09-2023 take 1 tablet by mouth twice daily Metoprolol Tartrate 25 mg tablet Discontinued 25 mg PO TWICE A DAY 60 November 11, 2022 3:08pm October 09, 2023 3:06pm take 1 tablet by clyde th once daily metoprolol tartrate (Lopressor) 25 mg tablet Take 1 tablet (25 mg) by mouth once daily. Active Comment on above: Take 25 mg by mouth twice daily. Multivitamin-Iron- Folic Acid (Centrum) 18-400 mg-mcg tablet (3 sources) Start: 4 End: 4 Pdvppnessinq-Xwrj-Kfb ic Acid (Centrum) 18-400 mg-mcg tablet Discontinued 1 {tbl} PO daily May 10, 2024 12:00am May 25, 2024 1:04pm mupirocin 0.02 mg/mg topical ointment (3 sources) RNA Synthetase Inhibitor Antibacterial Start: 4 mupirocin (BACTROBAN) 2 % ointment Apply a small amount in each nostril using a cotton swab twice the day before surgery and once the morning of surgery. 22 g 04/13/2024 Suspended naproxen 500 mg oral tablet (20 sources) Nonsteroidal Anti-inflammatory Drug Start: 2 End: 2 take 1 tablet by mouth twice daily as needed for pain Naproxen (Naprosyn) 500 mg tablet Discontinued 500 mg PO TWICE A DAY as needed for pain April 13, 2022 12:00am April 18, 2022 8:11am Start: 07-09-2013 End: 05-15-2015 take 1 tablet by mouth twice daily at mealtime NAPROSYN, 500MG (Oral Tablet) 1 Tablet Tablet bid for 0 days Quantity: 60 {Tablet} Refills: 0 Ordered: 15-May-2015 Judy Garcia CMA Start : 09-Jul-2013 End : 15-May-2015 Inactive Comments: with food Comment on above: with food omeprazole 40 mg delayed release oral capsule (20 sources) Proton Pump Inhibitor Start: 10-22-2021 take 1 capsule by mouth once daily Omeprazole 40 MG Oral Capsule Delayed Release 1 (one) Capsule daily for 0 days Quantity: 30 {Capsule} Refills: 0 Ordered: 22-Oct-2021 Connie Shilpa Shilpa Rosales Start : 22-Oct-2021 Active Start: 03-23-2021 take 1 capsule by [facility] once daily Omeprazole 40 MG Oral Capsule Delayed Release 1 (one) Capsule daily for 0 days Quantity: 30 {Capsule} Refills: 0 Ordered: 23-Mar-2021 Adelaide Alvarenga LPN Start : 23-Mar-2021 Active Start: 12-08-2013 End: 04-05-2016 take 1 capsule by mouth once daily Omeprazole 20 MG Oral Capsule Delayed Release 1 (one) Capsule DR Capsule DR qd for 0 days Quantity: 30 {Capsule} Refills: 0 Ordered: 05-Apr-2016 PalakCally martinez LPN Start : 08-Dec-2013 End : 05-Apr-2016 Discontinued microencapsulated potassium chloride 20 meq extended release oral tablet (20 sources) Start: 04-15-2012 End: 04-15-2012 take 1 tablet by mouth once daily KLOR-CON M20, 20MEQ (Oral Tablet Extended Release) 1 Tablet ER qd for 0 days Quantity: 3 {Tablet_ER} Refills: 0 Ordered: 15-Apr-2012 Georgia Lilly Start : 15-Apr-2012 End : 15-Apr-2012 Discontinued predniSONE 20 mg oral tablet (20 sources) Start: 05-08-2022 predniSONE 20 MG Oral Tablet Quantity: 14 Refills: 0 Ordered: 08-May-2022 DO Start : 08-May-2022 Complete Start: 04-26-2019 End: 06-05-2020 take 2 tablets by mouth once daily at mealtime Prednisone 20 MG tablet Discontinued 40 mg PO DAILY April 26, 2019 12:00am June 05, 2020 2:20pm With food Start: 04-26-2019 End: 06-05-2020 take 40 mg by mouth once daily at mealtime Prednisone Discontinued 40 MG PO DAILY April 26, 2019 12:00am June 05, 2020 2:20pm With food promethazine hydrochloride 25 mg oral tablet (20 sources) Phenothiazine Start: 08-03-2010 End: 04-15-2011 take 1 tablet by mouth every six hours as needed PROMETHAZINE HCL, 25MG (Oral Tablet) 1 Tablet q 6 hours prn for 0 days Quantity: 20 {Tablet} Refills: 0 Ordered: 15-Apr-2011 Georgia Lilly Start : 03-Aug-2010 End : 15-Apr-2011 Inactive Comments: can sedate Comment on above: can sedate 24 hr propranolol hydrochloride 60 mg extended release oral capsule (20 sources) beta-Adrenergic Joshua Start: 12-15-2015 End: 04-05-2016 take 1 capsule by mouth every twenty-four hours, then take 1 capsule by mouth once daily Inderal LA 60 MG Oral Capsule Extended Release 24 Hour 1 (one) Capsule ER 24HR Capsule ER 24HR qd for 0 days Quantity: 30 {Capsule} Refills: 0 Ordered: 05-Apr-2016 Nii MCGRATHCally Start : 15-Dec-2015 End : 05-Apr-2016 Discontinued Start: 10-22-2013 End: 09-23-2014 take 1 capsule by mouth once daily INDERAL LA, 80MG (Oral Capsule Extended Release 24 Hour) 1 (one) Capsule ER 24HR qd for 0 days Quantity: 30 {Capsule_ER_24HR} Refills: 3 Ordered: 23-Sep-2014 MERARI Richter LPN Start : 22-Oct-2013 End : 23-Sep-2014 Inactive Start: 05-30-2013 End: 04-21-2014 take 1 tablet by mouth once daily Propranolol 20 MG tablet Discontinued 20 mg PO DAILY May 30, 2013 12:00am April 21, 2014 11:53am rifAXIMin 550 mg oral tablet (14 sources) Rifamycin Antibacterial Start: 06-25-2022 End: 07-09-2022 take 1 tablet by mouth three times daily Rifaximin (Xifaxan) 550 mg tablet Discontinued 550 mg PO THREE TIMES A DAY 42 June 25, 2022 1:00am July 08, 2022 1:00am July 09, 2022 1:03am rosuvastatin calcium 5 mg oral tablet (15 sources) HMG-CoA Reductase Inhibitor Start: 03-13-2021 End: 03-13-2021 Rosuvastatin Calcium 5 MG Oral Tablet 1 (one) Tablet every other night for 0 days Quantity: 90 {Tablet} Refills: 0 Ordered: 13-Mar-2021 Sihlpa Rosales Mary Start : 13-Mar-2021 End : 13-Mar-2021 Inactive Start: 06-24-2020 Rosuvastatin C alcium 5 MG Oral Tablet 1 (one) Tablet every other night for 0 days Quantity: 90 {Tablet} Refills: 0 Ordered: 24-Jun-2020 Shilpa Rosales CNP, CNP, Mary E Start : 24-Jun-2020 Active Start: 03-24-2020 take 1 tablet by clyde th once, then take 2 tablets by mouth Rosuvastatin Calcium 5 MG Oral Tablet 1 (one) Tablet every other night for 0 days Quantity: 90 {Tablet} Refills: 0 Ordered: 24-Mar-2020 Connie SARKAR, Shilpa Rosales CNP, Shilpa Kate Start : 24-Mar-2020 Active 1 ml secukinumab 150 mg/ml prefilled syringe (20 sources) Interleukin-17A Antagonist Start: 09-19-2021 End: 04-05-2022 Secukinumab (Cosentyx) 150 mg/mL syringe Discontinued 150 mg SC every 4 weeks September 19, 2021 1:00am April 05, 2022 10:29am sertraline 50 mg oral tablet (20 sources) Serotonin Reuptake Inhibitor Start: 09-26-2014 End: 10-03-2014 take 1 tablet by mouth once daily ZOLOFT, 50MG (Oral Tablet) 1 (one) Tablet qd for 0 days Quantity: 30 {Tablet} Refills: 3 Ordered: 03-Oct-2014 Start : 26-Sep-2014 End : 03-Oct-2014 Discontinued terconazole 4 mg/ml vaginal cream (20 sources) Azole Antifungal Start: 10-07-2008 End: 10-25-2008 TERAZOL 7, 0.4% (Vaginal Cream) 1 (one) Cream qhs / HS for 7 days Refills: 0 Ordered: 07-Oct-2008 Libertad Rivera DO Start : 07-Oct-2008 End : 25-Oct-2008 Inactive 0.5 ml ustekinumab 90 mg/ml injection (20 sources) Interleukin-12 Antagonist, Interleukin-23 Antagonist Start: 05-01-2021 End: 09-19-2021 Ustekinumab (Stelara) 45 mg/0.5 mL Solution Discontinued 45 mg SC .Q3MO May 01, 2021 12:00am September 19, 2021 10:07am Start: 02-05-2021 End: 01-13-2023 STELARA 45 mg/0.5 mL sub-Q s yringe Stelara uad Acti ve vancomycin 125 mg oral capsule (20 sources) Glycopeptide Antibacterial Start: 01-18-2022 End: 03-14-2022 take 1 capsule by mouth every six hours Vancomycin 125 mg capsule Discontinued 125 mg PO EVERY 6 HOURS 56 February 05, 2022 4:32pm March 14, 2022 5:16pm ZOLMitriptan 2.5 mg oral tablet (20 sources) Serotonin-1b and Serotonin-1d Receptor Agonist Start: 02-08-2008 End: 08-22-2008 ZOMIG, 2.5MG (Oral Tablet) 1 (one) Tablet UAD for 0 days Quantity: 20 {Tablet} Refills: 3 Ordered: 08-Feb-2008 Cammie Ramos Start : 08-Feb-2008 End : 22-Aug-2008 Discontinued Problems Active Problems Problem Classification Problem Date Documented Date Episodic/Chronic Administrative/social admission (20 sources) Medical examinations/reports status; Translations: [Patient encounter status] Resolved: 1 05-02-2015 Episodic Anxiety disorders (20 sources) Anxiety; Translations: [Anxiety] Resolved: 7 05-05-2017 Chronic Attention-deficit conduct and disruptive behavior disorders (20 sources) Attention deficit hyperactivity disorder; Translations: [Attention-deficit hyperactivity disorder, unspecified type] 06-16-2018 Chronic Bacterial infection; unspecified site (20 sources) Rheumatic fever without heart involvement; Translations: [Rheumatic fever without heart involvement] Onset: 3 06-16-2018 Episodic Cardiac dysrhythmias (20 sources) Supraventricular tachycardia; Translations: [Supraventricular tachycardia] Onset: 3 12-25-2022 Chronic Cardiac dysrhythmias (20 sources) Intermittent palpitations; Translations: [Palpitations] Onset: 3 11-11-2022 Episodic Coagulation and hemorrhagic disorders (20 sources) Blood coagulation disorder; Translations: [Coagulation defect, unspecified] Onset: 4 04-14-2024 Chronic Diseases of white blood cells (20 sources) Leukopenia; Translations: [Leukopenia] Onset: 6 Resolved: 1 07-07-2015 Chronic Disorders of lipid metabolism (20 sources) Hypercholesterolemia; Translations: [Hypercholesteremia] Onset: 3 06-16-2018 Chronic Esophageal disorders (14 sources) Gastroesophageal reflux disease; Translations: [Gastro-esophageal reflux disease without esophagitis] Onset: 4 04-14-2024 Chronic Essential hypertension (20 sources) Essential hypertension; Translations: [Essential (primary) hypertension] Onset: 3 11-04-2022 Chronic Fluid and electrolyte disorders (20 sources) Hypokalemia; Translations: [Hypokalemia] Onset: 4 Resolved: 2 10-08-2012 Episodic Fracture of upper limb (20 sources) Fracture of neck of metacarpal bone; Translations: [Displaced fracture of neck of second metacarpal bone, right hand, initial encounter for closed fracture] Onset: 3 11-04-2022 Episodic Headache; including migraine (20 sources) Migraine; Translations: [Migraine with aura] Onset: 4 06-16-2018 Chronic Comment on above: chronic stable-margarita nue present regimen Headache; including migraine (20 sources) Headache; Translations: [Tension-type headache] Resolved: 7 06-16-2018 Episodic Comment on above: chronic stable-margarita nue present regimen Headache; including migraine (20 sources) Headache; including migraine Heart valve disorders (20 sources) Mitral valve prolapse; Translations: [Nonrheumatic mitral (valve) prolapse] Onset: 3 02-10-2021 Chronic Comment on above: Status post repair Heart valve disorders (20 sources) Heart murmur; Translations: [Cardiac murmur, unspecified] Onset: 3 11-11-2022 Episodic Immunizations and screening for infectious disease (20 sources) Need for prophylactic vaccination and inoculation against influenza; Translations: [Needs influenza immunization] 03-24-2020 Episodic Joint disorders and dislocations; trauma-related (20 sources) Patellofemoral stress syndrome; Translations: [Patellofemoral disorders, right knee] Onset: 3 Chronic Joint disorders and dislocations; trauma-related (20 sources) Tear of medial meniscus of knee; Translations: [Other tear of medial meniscus, current injury, left knee, initial encounter] Onset: 2 11-04-2022 Episodic Menopausal disorders (20 sources) Menopausal flushing; Translations: [Hot flashes] 06-16-2018 Chronic Mood disorders (20 sources) Depressive disorder; Translations: [Bipolar disorder, unspecified] Onset: 4 06-16-2018 Chronic Comment on above: chronic stable-margarita nue present regimenwas on zoloft saw Dr. Velasquez in hospital but will be seeing Dr. Charlie Rangel Mycoses (20 sources) Tinea corporis; Translations: [Candidiasis of vagina] Resolved: 9 10-08-2012 Episodic Nausea and vomiting (20 sources) Nausea; Translations: [Nausea] Resolved: 4 06-29-2015 Episodic Comment on above: out of the blue thro ws up Noninfectious gastroenteritis (1 source) Noninfective gastroenteritis and colitis, unspecified; Translations: [Noninfective gastroenteritis and colitis, unspecified] Onset: 5 Episodic Nonspecific chest pain (20 sources) Chest pain; Translations: [Chest pain] Resolved: 2 10-08-2012 Episodic Osteoarthritis (20 sources) Unilateral primary osteoarthritis, left knee; Translations: [Osteoarthrosis, unspecified whether generalized or localized, lower leg] Onset: 3 Chronic Other aftercare (2 sources) Surgical follow-up; Translations: [Encounter for follow-up examination after completed treatment for conditions other than malignant neoplasm] 04-16-2024 Episodic Other and unspecified benign neoplasm (20 sources) Lipoma (clinical) Resolved: 9 10-08-2012 Episodic Comment on above: reassurance unless p ain becomes red or hard or nonmoveable call Other circulatory disease (3 sources) Disorder of artery; Translations: [Disorder of arteries and arterioles, unspecified] 03-10-2024 Chronic Other circulatory disease (1 source) Disorder of arteries and arterioles, unspecified; Translations: [Disorder of artery or arteriole (HCC)] Onset: 4 Chronic Other connective tissue disease (20 sources) Primary fibromyalgia syndrome Episodic Other connective tissue disease (20 sources) Pain in limb; Translations: [Pain in limb] 06-16-2018 Episodic Comment on above: left foot pain ? gou t (doubt) vs arthritis vs fracture Other connective tissue disease (14 sources) Cramp in lower limb; Translations: [Leg cramps] 04-04-2020 Episodic Other connective tissue disease (3 sources) Synovial cyst of popliteal space [Dc], left knee; Translations: [Synovial cyst of left popliteal space] 11-04-2022 Episodic Other female genital disorders (20 sources) Vaginal discharge; Translations: [Vaginal discharge] Resolved: 9 10-08-2012 Episodic Other gastrointestinal disorders (20 sources) Diarrhea; Translations: [DIARRHEA (Renamed from D (diarrhea))] Resolved: 4 02-10-2015 Episodic Other gastrointestinal disorders (20 sources) Diarrhea, unspecified; Translations: [Diarrhea] Onset: 5 Episodic Other gastrointestinal disorders (20 sources) Acute diarrhea; Translations: [Diarrhea, unspecified] Onset: 2 12-18-2022 Episodic Other inflammatory condition of skin (20 sources) Psoriasis; Translations: [Psoriasis] Onset: 7 06-16-2018 Chronic Other inflammatory condition of skin (20 sources) Psoriasis with arthropathy; Translations: [PA (psoriatic arthritis)] 06-16-2018 Chronic Comment on above: now on humira encour ge get flu shot Sees Dr. Hernandez on nabumetone 500mg bid and now on humiraon clobetasol for psoriasisSaw Dr. Hernandez 07-02-[address] [place] now seeing Kacey Aguila at [facility] on nabumetone 500mg bid was on humira now on Stilaraon clobetasol for psoriasisSaw Dr. Hernandez 07-02-19 Other inflammatory condition of skin (20 sources) Psoriatic arthritis; Translations: [PA (psoriatic arthritis)] Onset: 3 Chronic Comment on above: Saw Dr. Hernandez in [place] now seeing Kacey Aguila at [facility] on nabumetone 500mg bid was on humira now on Stilaraon clobetasol for psoriasisSaw Dr. Hernandez 07-02-19 Other inflammatory condition of skin (4 sources) Arthropathic psoriasis, unspecified; Translations: [Arthropathic psoriasis, unspecified (CMS/HCC)] Onset: 4 Chronic Other inflammatory condition of skin (2 sources) Psoriasis, unspecified; Translations: [Psoriasis, unspecified] Onset: 3 Chronic Other liver diseases (20 sources) Steatosis of liver; Translations: [Fatty liver] Onset: 3 03-26-2021 Chronic Other non-traumatic joint disorders (20 sources) Arthropathy; Translations: [Arthropathy, unspecified, site unspecified] Onset: 3 01-15-2023 Chronic Other non-traumatic joint disorders (3 sources) Arthropathy, unspecified; Translations: [Arthropathy, unspecified] Onset: 3 Chronic Other non-traumatic joint disorders (20 sources) Pain in right knee; Translations: [Right knee pain] Episodic Other non-traumatic joint disorders (11 sources) Pain in left knee; Translations: [Pain in joint, lower leg] Episodic Other nutritional; endocrine; and metabolic disorders (20 sources) Body mass index 30+ - obesity; Translations: [BMI 30.0-30.9,adult] Resolved: 9 06-16-2018 Chronic Other skin disorders (20 sources) Folliculitis; Translations: [Folliculitis] Resolved: 7 05-05-2017 Episodic Comment on above: was in hot tub, swit ched from chlorine to bromide Other upper respiratory infections (20 sources) Acute sinusitis, unspecified; Translations: [Acute sinusitis] 06-16-2018 Episodic Brii-; endo-; and myocarditis; cardiomyopathy (except that caused by tuberculosis or sexually transmitted disease) (1 source) Endocarditis, valve unspecified; Translations: [Valvular heart disease] Onset: 4 Chronic Pleurisy; pneumothorax; pulmonary collapse (1 source) Pleural effusion; Translations: [Pleural effusion, not elsewhere classified] 04-27-2024 Episodic Poisoning by other medications and drugs (20 sources) Poisoning by multiple unspecified drugs, medicaments and biological substances, accidental (unintentional), initial encounter; Translations: [Multiple drug overdose] 02-10-2021 Episodic Residual codes; unclassified (20 sources) Edema; Translations: [Edema] Episodic Comment on above: watch salt and get l abs Residual codes; unclassified (20 sources) Edema, unspecified; Translations: [Swelling - edema - symptom] 06-16-2018 Episodic Comment on above: watch salt and get l abs Residual codes; unclassified (20 sources) Needs influenza immunization; Translations: [Need for prophylactic vaccination and inoculation against influenza] 06-16-2018 Episodic Residual codes; unclassified (12 sources) History of total hysterectomy; Translations: [Hysterectomy; Abdominal] 02-28-2020 Episodic Comment on above: Adenomyosis Residual codes; unclassified (4 sources) Non-smoker; Translations: [Nonsmoker] 03-24-2020 Episodic Residual codes; unclassified (20 sources) History of repair of mitral valve; Translations: [Other specified postprocedural states] Onset: 4 04-14-2024 Episodic Screening and history of mental health and substance abuse codes (20 sources) H/O: attempted suicide; Translations: [History of suicide attempt] 02-09-2021 Episodic Spondylosis; intervertebral disc disorders; other back problems (20 sources) Cervical radiculopathy; Translations: [Cervical radiculopathy] 06-16-2018 Chronic Spondylosis; intervertebral disc disorders; other back problems (12 sources) Cervical radiculopathy; Translations: [Cervical radiculopathy] 03-24-2020 Episodic Suicide and intentional self-inflicted injury (8 sources) Suicide attempt ; Translations: [Suicide attempt] 03-24-2020 Episodic Comment on above: Wants to follow up w pal Regalado in [place]. PTSD is working on that with Dr. Velasquez.Is cutting down on workFeb 21, was weaning off of cymbalt, now on lexapro Unclassified (20 sources) Abdominal Pain,General (789.07) Unclassified (20 sources) Unclassified (20 sources) menopausal without estrogen 06-16-2018 Unclassified (20 sources) Non-smoker; Translations: [Nonsmoker] 06-16-2018 Unclassified (20 sources) Elevated Blood Pressure without diagnosis of Hypertension (796.2) Unclassified (20 sources) screening 06-16-2018 Unclassified (20 sources) Bipolor(296.80) Unclassified (20 sources) Abdominal Pain,Unspecified Site (789.00) Unclassified (20 sources) BMI 30.0-30.9,adult Unclassified (20 sources) Hypercholesteremia Unclassified (20 sources) PA (psoriatic arthritis) Unclassified (20 sources) Psoriatic arthritis (696.0) Unclassified (20 sources) Encounter for screening mammogram for breast cancer (Renamed from Encounter for screening mammogram for malignant neoplasm of breast) Unclassified (20 sources) Elevated liver enzymes Unclassified (20 sources) Headache,Migraine (346.00) Unclassified (19 sources) Interactive Heart Surgery Education Onset: 4 03-10-2024 Unclassified (1 source) New Patient Onset: Past or Other Problems Problem Classification Problem Date Documented Date Episodic/Chronic Abdominal pain (20 sources) Abdominal pain; Translations: [Generalized abdominal pain] Resolved: 05-11-2014 06-14-2015 Episodic Acute posthemorrhagic anemia (14 sources) Acute posthemorrhagic anemia; Translations: [Acute posthemorrhagic anemia] Onset: 04-14-2024 04-14-2024 Episodic Biliary tract disease (20 sources) Biliary sludge; Translations: [Gallbladder sludge] Onset: 01-15-2023 03-26-2021 Episodic Comment on above: will see Sandhu, Mar 3 Deficiency and other anemia (20 sources) Iron deficiency anemia; Translations: [Iron deficiency anemia, unspecified] Onset: 11-05-2005 11-05-2005 Episodic Deficiency and other anemia (20 sources) Deficiency and other anemia Diabetes mellitus without complication (14 sources) Metabolic stress hyperglycemia; Translations: [Hyperglycemia, unspecified] Onset: 04-14-2024 Resolved: 04-15-2024 04-15-2024 Episodic Diabetes mellitus without complication (20 sources) Diabetes mellitus without complication Genitourinary symptoms and ill-defined conditions (20 sources) Dysuria; Translations: [Increased frequency of urination] Onset: 09-09-2024 Resolved: 05-05-2017 01-18-2009 Episodic Influenza (20 sources) Influenza with other respiratory manifestations; Translations: [Influenza w/o pnemonia] Resolved: 11-13-2009 11-13-2009 Episodic Comment on above: improving Influenza (20 sources) Influenza Mood disorders (20 sources) Mood disorders Other aftercare (1 source) Encounter for follow-up examination after completed treatment for conditions other than malignant neoplasm; Translations: [Surgery follow-up] Onset: 04-27-2024 Episodic Other circulatory disease (20 sources) Elevated blood-pressure reading without diagnosis of hypertension; Translations: [Elevated blood-pressure reading without diagnosis of hypertension] Resolved: 10-15-2013 05-02-2015 Episodic Other connective tissue disease (20 sources) Fibromyalgia; Translations: [Fibromyalgia] Onset: 01-13-2023 06-16-2018 Episodic Comment on above: doing good Other connective tissue disease (20 sources) Synovial cyst of left popliteal space; Translations: [Synovial cyst of popliteal space [Dc], left knee] Onset: 01-15-2023 11-04-2022 Episodic Other disorders of stomach and duodenum (14 sources) Acute dilatation of stomach; Translations: [Other diseases of stomach and duodenum] Onset: 04-15-2024 04-15-2024 Episodic Other inflammatory condition of skin (20 sources) Itching of skin; Translations: [Pruritus] Resolved: 05-05-2017 05-05-2017 Episodic Other liver diseases (20 sources) Elevated liver enzymes level; Translations: [Elevated liver enzymes] Onset: 01-15-2023 03-24-2020 Episodic Comment on above: repeat repeat, Alt 52 Ast 5 1 8-321. repeating today to send to Dr. Aguila Other nervous system disorders (14 sources) Postoperative pain ; Translations: [Other acute postprocedural pain] Onset: 04-14-2024 04-14-2024 Episodic Other nervous system disorders (1 source) Other acute postprocedural pain; Translations: [Postoperative pain] Onset: 04-14-2024 Episodic Other nutritional; endocrine; and metabolic disorders (16 sources) Body mass index 25-29 - overweight; Translations: [BMI 29.0-29.9,adult] Resolved: 06-28-2019 12-24-2019 Chronic Other nutritional; endocrine; and metabolic disorders (4 sources) Body mass index 25-29 - overweight; Translations: [BMI 29.0-29.9,adult] Resolved: 06-28-2019 12-24-2019 Episodic Other screening for suspected conditions (not mental disorders or infectious disease) (20 sources) Breast neoplasm screening status; Translations: [Patient encounter status] Onset: 07-16-2024 05-05-2017 Episodic Other skin disorders (20 sources) Eruption; Translations: [Rash of unknown cause] Resolved: 05-05-2017 05-05-2017 Episodic Ovarian cyst (20 sources) Other and unspecified ovarian cyst; Translations: [Cyst, ovarian] Resolved: 05-05-2017 05-05-2017 Episodic Residual codes; unclassified (4 sources) Increased body mass index; Translations: [BMI 29.0-29.9,adult] 06-16-2018 Episodic Residual codes; unclassified (20 sources) History of abdominal hysterectomy; Translations: [Acquired absence of both cervix and uterus] Onset: 01-13-2023 01-13-2023 Episodic Residual codes; unclassified (2 sources) Other specified postprocedural states; Translations: [S/P mitral valve repair] Onset: 04-27-2024 Episodic Respiratory failure; insufficiency; arrest (adult) (14 sources) Ventilator finding; Translations: [Dependence on respirator [ventilator] status] Onset: 04-14-2024 Resolved: 04-15-2024 04-15-2024 Chronic Suicide and intentional self-inflicted injury (20 sources) Suicide attempt ; Translations: [Suicide attempt] 06-16-2018 Comment on above: Wants to follow up w pal Regalado in [place]. PTSD is working on that with Dr. 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 Resolved: 01-18-2009 10-08-2012 Unclassified (20 sources) Well Woman Exam (V72.31) (Pap,Mammo,Routine Female) (Renamed from Well Woman V72.31 (p,m)) Unclassified (20 sources) Patient encounter status; Translations: [Breast cancer screening] 06-16-2018 Comment on above: has had hyst but one ovary remains Unclassified (20 sources) Deliveries (Parity); Translations: [Deliveries (Parity)] 06-16-2018 Comment on above: 3 Unclassified (20 sources) Attention deficit disorder of childhood without mention of hyperactivity (314.00) Unclassified (20 sources) biceps tendon rupture Resolved: 01-18-2009 10-08-2012 Unclassified (20 sources) Hot Flashes (782.62) Unclassified (4 sources) History of abdominal hysterectomy; Translations: [Hysterectomy; Abdominal] 06-16-2018 Comment on above: Adenomyosis Unclassified (20 sources) left arm weakness 06-16-2018 Unclassified (20 sources) Pregnancies (); Translations: [Pregnancies ()] 06-16-2018 Comment on above: 3 Unclassified (20 sources) Screening status; Translations: [Screening for diabetes mellitus] 06-16-2018 Unclassified (20 sources) Unspecified Diagnosis 06-16-2018 Unclassified (20 sources) SCREENING FOR BREAST CANCER (V76.10) Unclassified (20 sources) Frequency (788.41) Unclassified (20 sources) Encounter for gynecological examination without abnormal finding Unclassified (20 sources) BMI 31.0-31.9,adult Unclassified (20 sources) Encounter for screening for lipid disorder Unclassified (20 sources) Physical exam without abnormal findings (Renamed from Encounter for routine adult health examination without abnormal findings) Unclassified (20 sources) BMI 29.0-29.9,adult Unclassified (20 sources) Physical exam for work or camp (Renamed from Encounter for school health examination) Unclassified (20 sources) Rash of unknown cause Unclassified (20 sources) Pruritus Unclassified (20 sources) Physical exam, routine Unclassified (20 sources) Cyst, ovarian (620.2) Unclassified (20 sources) DIARRHEA (Renamed from D (diarrhea)) Unclassified (20 sources) Encounter for screening for malignant neoplasm of colon (Renamed from Special screening for malignant neoplasms, colon) Unclassified (20 sources) Screening for endocrine disorder Unclassified (20 sources) Migraine with aura and without status migrainosus, not intractable Unclassified (20 sources) Yeast infection of the vagina Unclassified (20 sources) Burning with urination Unclassified (14 sources) Leg cramps Unclassified (6 sources) Gallbladder sludge Unclassified (3 sources) Nausea and/or vomiting Results Test Name Value Interpretation Reference Range Facility CDIFF (PCR)on 12-28-2024 CDIFF Pending [id number] [id number] Presumptive Negative *for epidemiolologic???use C. Diff PCR Negative- No toxigenic C. Diff Detected Normal [facility] Comment on above: Performed By: #### M 100.0605, M100.637, M100.6796 #### [facility] [address] [place] [address]. [place], [address] Clostridium difficile detect ion by polymerase chain reactionOrdered By: Nathan Guzman on 12-28-2024 C. difficile DNA BAM+probe Ql (Unsp spec) [facility] ENTERIC PATHOGEN PANEL STOOL on 12-28-2024 EP PANEL Normal Reference Ran ge = Not Detected Nucleic acid amplification test method Not detected for Campylobacter group, Salmonella species, Shigella species, Vibrio Group, Yersinia enterocolitica, EHEC (Shiga Toxin 1, Shiga Toxin 2), Norovirus Gl/Gll, and Rotavirus A. Other common stool pathogens are not detected on this panel include: Aeromonas/Plesiomonas or parasites. Order testing for these organisms separately if suspected. This is an amplified DNA test which makes it both specific and sensitive. CAMPYLOBACTER Not Detected Norovirus Not Detected Rotavirus Not Detected Salmonella Not Detected Shiga Toxin Not Detected Shigella sp. Not Detected VIBRIO Not Detected Yersinia Not Detected Normal [facility] Comment on above: Performed By: #### M 100.0605, M100.637, M100.6796 #### [facility] [address] [place], [place], [id number] Stool Lactoferrin/WBCon 06-0 WBCST Normal Reference Ran ge = Negative Fecal WBC Lactoferrin A Positive: Fecal WBC Lactoferrin present A Normal [facility] Comment on above: Performed By: #### M 100.0605, M100.637, M100.6796 #### [facility] [address] [place], [place], [id number] Stool lactoferrin detection by immunoassayOrdered By: Nathan Guzman on 12-28-2024 Lactoferrin IA Ql (Stl) [facility] Bilirubin directOrdered By: Jeyson Galvan on 11-25-2024 Bilirubin.direct [Mass/Vol] 0.15 mg/dL 0.00-0.30 [facility] Bilirubin, totalOrdered By: Jeyson Galvan on 11-25-2024 Bilirubin [Mass/Vol] 0.42 mg/dL 0.00-1.30 [facility] Calculated very low density lipoprotein (VLDL) cholesterol measurementOrdered By: Jeyson Galvan on 11-25-2024 Calculated very low density lipoprotein (VLDL) cholesterol measurement 24 mg/dL 5-40 [facility] LDL calc ser/plasOrdered By: Jeyson Galvan on 11-25-2024 Cholesterol in LDL [Mass/Vol] 174 mg/dL [facility] Comment on above: Cdbtszztlj=550-483 m g/dL & Higher Efix=140 mg/dL or greater Laboratory - Chemistry and C hemistry - challengeOrdered By: Jeyson Galvan on 11-25-2024 AST [Catalytic activity/Vol] 25 U/L <32 [facility] Lipid Profileon 11-25-2024 CHOL:HDL 4.15 Normal [facility] Comment on above: Performed By: #### M 100.2200 #### [facility] [address] [place], [address] Cholesterol [Mass/Vol] 260 mg/dL High <=200 [facility] Comment on above: Result Comment: Chol esterol level, Desirable <200 mg/dL Borderline high cholesterol 200-239 mg/dL High cholesterol >=240 mg/dL Recommendations of the NCEP Adult Treatment Panel for the following risk-cutoff thresholds for the [place] population. Performed By: #### M 100.2200 #### [facility] [address] [place], [address] Cholesterol in HDL [Mass/Vol] 63 mg/dL Normal [facility] Comment on above: Result Comment: Rosario onal Cholesterol Education Program (NCEP) guidelines: <40 mg/dL: Low HDL-cholesterol (major risk factor for CHD) >= 60 mg/dL: High HDL-cholesterol (negative risk factor for CHD) HDL-cholesterol is affected by a number of factors, e.g. smoking, exercise, hormones, sex and age. Performed By: #### M 100.2200 #### [facility] [address] [place], [address] Cholesterol in LDL [Mass/Vol] 174 mg/dL Normal [facility] Comment on above: Result Comment: Bord bvtikm=794-991 mg/dL Higher Rzgt=173 mg/dL or greater Performed By: #### M 100.2200 #### [facility] [facility] [address] [place], [address] Cholesterol in VLDL [Mass/Vol] 24 mg/dL Normal 5-40 [facility] Comment on above: Performed By: #### M 100.2200 #### [facility] [address] [place], [address] Triglyceride [Mass/Vol] 118 mg/dL Normal [facility] Comment on above: Result Comment: The drugs N-Acetylcysteine and Metamizole may falsely depress this assay. Normal range: <150 mg/dL Borderline High: 150-199 mg/dL High: 200-499 mg/dL Very High: >500 mg/dL Performed By: #### M 100.2200 #### [facility] [address] [place], [address] Liver Profileon 11-25-2024 Albumin [Mass/Vol] 3.8 g/dL Normal 3.5-5.0 [facility] Comment on above: Performed By: #### L 500.3400, L500.4100 #### [facility] [address] [place], [address] ALK PHOS 72 U/L Normal 35-104 [facility] Comment on above: Performed By: #### L 500.3400, L500.4100 #### [facility] [address] [place], [address] ALT [Catalytic activity/Vol] 21 U/L Normal <=34 [facility] Comment on above: Performed By: #### L 500.3400, L500.4100 #### [facility] [address] [place], [address] AST [Catalytic activity/Vol] 25 U/L Normal <=31 [facility] Comment on above: Performed By: #### L 500.3400, L500.4100 #### [facility] [address] [place], [address] Bilirubin [Mass/Vol] 0.42 mg/dL Normal 0.00-1.30 [facility] Comment on above: Performed By: #### L 500.3400, L500.4100 #### [facility] [address] [place], [address] Bilirubin.direct [Mass/Vol] 0.15 mg/dL Normal 0.00-0.30 [facility] Comment on above: Performed By: #### L 500.3400, L500.4100 #### [facility] [address] [place], [place], [id number] Globulin (S) [Mass/Vol] 2.9 g/dL Normal 2.2-4.2 [facility] Comment on above: Performed By: #### L 500.3400, L500.4100 #### [facility] [address] [place], [address] T PROT 6.7 g/dL Normal 5.9-8.4 [facility] Comment on above: Performed By: #### L 500.3400, L500.4100 #### [facility] [address] [place], [place], [id number] Screening total cholesterol/ high density lipoprotein (HDL) cholesterol ratioOrdered By: Jeyson Galvan on 11-25-2024 Cholesterol.total/Chol esterol in HDL [Mass ratio] 4.15 {ratio} [facility] Serum globulin measurementOr dered By: Jeyson Galvan on 11-25-2024 Globulin (S) [Mass/Vol] 2.9 g/dL 2.2-4.2 [facility] Serum or plasma alanine jeronimo otransferase (ALT) measurementOrdered By: Jeyson Galvan on 11-25-2024 ALT [Catalytic activity/Vol] 21 U/L <35 [facility] Serum or plasma albumin francois urement (mass/volume)Ordered By: Jeyson Gavlan on 11-25-2024 Albumin [Mass/Vol] 3.8 g/dL 3.5-5.0 [facility] Serum or plasma alkaline dileep sphatase measurementOrdered By: Jeyson Galvan on 11-25-2024 ALP [Catalytic activity/Vol] 72 U/L 35-104 [facility] Serum or plasma cholesterol in HDL measurement (mass/volume)Ordered By: Jeyson Galvan on 11-25-2024 Cholesterol in HDL [Mass/Vol] 63 mg/dL >40 [facility] Comment on above: National Cholesterol Education Program (NCEP) guidelines:<40 mg/dL: Low HDL-cholesterol (major risk factor for CHD)>= 60 mg/dL: High HDL-cholesterol (negative risk factor for CHD)HDL-cholesterol is affected by a number of factors, e.g. smoking, exercise, hormones, sex and age. Serum or plasma cholesterol measurement (mass/volume)Ordered By: Jeyson Galvan on 11-25-2024 Cholesterol [Mass/Vol] 260 mg/dL High <201 [facility] Comment on above: Cholesterol level, D esirable <200 mg/dLBorderline high cholesterol 200-239 mg/dLHigh cholesterol >=240 mg/dLRecommendations of the NCEP Adult Treatment Panel for the following risk-cutoff thresholds for the [place] population. Total proteinOrdered By: Олег Galvan on 11-25-2024 Protein [Mass/Vol] 6.7 g/dL 5.9-8.4 [facility] Triglycerides measurementOrd ered By: Jeyson Galvan on 11-25-2024 Triglyceride [Mass/Vol] 118 mg/dL <199 [facility] Comment on above: The drugs N-Acetylcy steine and Metamizole may falsely depress this assay. Normal range: <150 mg/dLBorderline High: 150-199 mg/dLHigh: 200-499 mg/dLVery High: >500 mg/dL CNPTOUTREACHon 10-22-2024 CNPTOUTREACH Normal [facility] Calculated very low density lipoprotein (VLDL) cholesterol measurementOrdered By: Malika Samuels on 09-23-2024 Calculated very low density lipoprotein (VLDL) cholesterol measurement 41 mg/dL High 5-40 [facility] VLDL Cholesterol 41 mg/dL High 5-40 [facility] Cardiology Visit Reporton Cardiology Visit Report [facility] [place] [facility] [facility] [place], [place] [address] OFFICE VISIT Date of Service: 09/23/24 MR#: [id number] Acct: [id number] Name: CAMMIE BHAT Rep #: [id number] : 1970 Provider: Dr. Malika Samuels MD Age/Sex: 53/F Location: [facility] [place] Status: Signed HPI HPI History of Present Illness Details: This lady with history of mitral valve prolapse status post mitral valve repair is here for follow- up visit. Overall she reports being in good health. Denies any complaints today. No chest pains. No palpitations. No shortness of breath. No orthopnea or PND. No ankle edema. 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 Accompanied by: Self Is patient in pain?: No Allergies ixekizumab Allergy (Intermediate, Unverified 09/23/24 10:37) Swelling hydrocodone (From Vicodin) Allergy (Verified 09/23/24 10:37) Nausea Penicillins (PCN) Allergy (Verified 09/23/24 10:37) Hives hyoscyamine Adverse Reaction (Intermediate, Verified 09/23/24 10:37) emesis Medications ???Medication ???Instructions ???Recorded ???Confirmed ???Type rizatriptan 10 mg tablet (Maxalt) 10 mg PO PRN PRN MIGRAINES 09/23/24 History guselkumab 100 mg/mL subcutaneous 100 mg subcut Q8W 04/07/23 History auto-injector (Tremfya) topiramate 25 mg tablet 75 mg PO QHS 04/07/23 09/23/24 His tory desvenlafaxine succinate 25 mg 25 mg PO QHS 10/09/23 09/23/24 His tory tablet,extended release 24 hr desvenlafaxine succinate 50 mg 50 mg PO QDAY 10/09/23 09/23/24 Hi story tablet,extended release 24 hr celecoxib 200 mg capsule 200 mg PO DAILY PRN mild pain 10/2709/23/24 History pantoprazole 40 mg tablet,delayed 40 mg PO QDAY 05/10/24 09/23/24 H istory release losartan 100 mg tablet 100 mg PO QDAY #90 tabs 06/10/24 0 09/23/24 Rx metoprolol tartrate 100 mg tablet 100 mg PO BID #60 tabs 06/10/24 0 09/23/24 Rx amlodipine 5 mg tablet 5 mg PO QDAY #30 tabs 06/22/24 Rx clindamycin HCl 300 mg capsule 600 mg (2 x 300 mg) PO .COMPLEX #2 08/17/24 09/23/24 Rx caps Ejection fraction %: 60 Have you fallen in the past year?: No PFSH Medical History (Updated 09/23/24 @ 10:[address] Malika Samuels MD) SVT (supraventricular tachycardia) Mitral regurgitation Mitral valve prolapse Psoriatic arthritis GERD (gastroesophageal reflux disease) Irregular heart beat Cardiac murmur Essential hypertension Preoperative cardiovascular examination Displaced fracture of neck of right second metacarpal bone Synovial cyst of popliteal space [Dc], left knee Tear of medial meniscus of left knee Osteoarthritis of left knee Left knee pain Dietary restriction Chronic cough History of steroid therapy History of pain when walking Hypertension Left knee pain Unspecified abdominal pain Abdominal pain Diarrhea Patellofemoral syndrome, right Right knee pain Wears glasses Alcohol use Arthritis Anemia Elevated liver enzymes Restless legs Migraine headache Loss of consciousness History of hiatal hernia Hx of diarrhea History of vomiting Former smoker Leg cramps History of edema Cardiology follow-up encounter History of echocardiogram History of stress test History of rheumatic fever History of ganglion cyst Nonrheumatic mitral (valve) prolapse Intermittent palpitations Tension-type headache, unspecified, not intractable Rheumatic fever without heart involvement Pure hypercholesterolemia, unspecified Attention-deficit hyperactivity disorder, unspecified type Psoriasis Cervical radiculopathy Drug overdose, multiple drugs Migraines History of suicide attempt Depression Surgical History Hx of mitral valve repair (04/14/24) History of cholecystectomy ( 03/2021) History of esophagogastroduodenos copy (EGD) Hx of colonoscopy Hx of tubal ligation Hx of rotator cuff surgery Hx of foot surgery Hx of tonsillectomy History of hysterectomy Family History Sister Hypertension Mother Thyroid disorder MVP (mitral valve prolapse) SVT (supraventricular tachycardia) Father Hypertension Hyperlipidemia Cancer Prostate 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 Normal [facility] LDL calc ser/plasOrdered By: Malika Samuels on 09-23-2024 Cholesterol in LDL [Mass/Vol] 138 mg/dL [facility] Comment on above: Xghvdyofji=991-303 m g/dL & Higher Ducx=838 mg/dL or greater LDL Cholesterol, Calculated 138 mg/dL [facility] Comment on above: Adnmxqmlld=896-560 m g/dL & Higher Snrq=823 mg/dL or greater Lipid Profileon 09-23-2024 CHOL:HDL 3.45 Normal [facility] Comment on above: Performed By: #### L 500.4100 #### [facility] [address] [place], [address] (027) Cholesterol [Mass/Vol] 252 mg/dL High <=200 [facility] Comment on above: Result Comment: Chol esterol level, Desirable <200 mg/dL Borderline high cholesterol 200-239 mg/dL High cholesterol >=240 mg/dL Recommendations of the NCEP Adult Treatment Panel for the following risk-cutoff thresholds for the [place] population. Performed By: #### L 500.4100 #### [facility] [address] [place], [place], [id number] Cholesterol in HDL [Mass/Vol] 73 mg/dL Normal [facility] Comment on above: Result Comment: Rosario onal Cholesterol Education Program (NCEP) guidelines: <40 mg/dL: Low HDL-cholesterol (major risk factor for CHD) >= 60 mg/dL: High HDL-cholesterol (negative risk factor for CHD) HDL-cholesterol is affected by a number of factors, e.g. smoking, exercise, hormones, sex and age. Performed By: #### L 500.4100 #### [facility] [address] [place], [address] (227) Cholesterol in LDL [Mass/Vol] 138 mg/dL Normal [facility] Comment on above: Result Comment: Bord hnqcgg=333-922 mg/dL Higher Xnvw=889 mg/dL or greater Performed By: #### L 500.4100 #### [facility] [address] [place], [place], [id number] Cholesterol in VLDL [Mass/Vol] 41 mg/dL High 5-40 [facility] Comment on above: Performed By: #### L 500.4100 #### [facility] [address] [place], [place], [id number] Triglyceride [Mass/Vol] 204 mg/dL High [facility] Comment on above: Result Comment: The drugs N-Acetylcysteine and Metamizole may falsely depress this assay. Normal range: <150 mg/dL Borderline High: 150-199 mg/dL High: 200-499 mg/dL Very High: >500 mg/dL Performed By: #### L 500.4100 #### [facility] [address] [place], [place], [id number] Screening total cholesterol/ high density lipoprotein (HDL) cholesterol ratioOrdered By: Malika Samuels on 09-23-2024 Cholesterol.total/Chol esterol in HDL [Mass ratio] 3.45 {ratio} [facility] Serum or plasma cholesterol in HDL measurement (mass/volume)Ordered By: Malika Samuels on 09-23-2024 Cholesterol in HDL [Mass/Vol] 73 mg/dL >40 [facility] Comment on above: National Cholesterol Education Program (NCEP) guidelines:<40 mg/dL: Low HDL-cholesterol (major risk factor for CHD)>= 60 mg/dL: High HDL-cholesterol (negative risk factor for CHD)HDL-cholesterol is affected by a number of factors, e.g. smoking, exercise, hormones, sex and age. Serum or plasma cholesterol measurement (mass/volume)Ordered By: Malika Samuels on 09-23-2024 Cholesterol [Mass/Vol] 252 mg/dL High <201 [facility] Comment on above: Cholesterol level, D esirable <200 mg/dLBorderline high cholesterol 200-239 mg/dLHigh cholesterol >=240 mg/dLRecommendations of the NCEP Adult Treatment Panel for the following risk-cutoff thresholds for the [place] population. Triglycerides measurementOrd ered By: Malika Samuels on 09-23-2024 Triglyceride [Mass/Vol] 204 mg/dL High <199 [facility] Comment on above: The drugs N-Acetylcy steine and Metamizole may falsely depress this assay. Normal range: <150 mg/dLBorderline High: 150-199 mg/dLHigh: 200-499 mg/dLVery High: >500 mg/dL Urine Cultureon 08-19-2024 [facility] Culture exhibits no growth. Normal [facility] Comment on above: Performed By: #### M 100.2200 #### [facility] [address] [facility] [place], [address] Urine cultureOrdered By: Radha Guzman on 08-18-2024 Bacteria identified Cx Nom (U) Culture exhibits no growth. [facility] CR - History AND Physicalon 06-17-2024 CR - History & Physical [facility] [address] [place] [address] CR - History Physical MR#: [id number] Acct: [id number] Name: CAMMIE BHAT Rep #: [id number] : 1970 53 From: Kavin PEREA, RVT PCP: Dr. Nathan Guzman, DO DOS: 06/17/24 CR - History Physical General Arrival date:: 06/17/24 Arrival time:: 12:59 Date of Referral:: 05/25/24 Date of CR Evaluation:: 06/17/24 Referring Physician: Dr. Samuels Primary Diagnosis: heart valve repair History of Present Cardiac Event Onset Date Heart valve replacement or repair:: Yes (04/14/24 onset) Medications Ambulatory Orders ???Medication ???Instructions ???Recorded rizatriptan 10 mg tablet (Maxalt) 10 mg PO PRN PRN MIGRAINES 02/09/21 guselkumab 100 mg/mL subcutaneous 100 mg subcut Q8W 04/07/23 auto-injector (Tremfya) topiramate 25 mg tablet 75 mg PO QHS 04/07/23 desvenlafaxine succinate 25 mg 25 mg PO QHS 10/09/23 tablet,extended release 24 hr desvenlafaxine succinate 50 mg 50 mg PO QDAY 10/09/23 tablet,extended release 24 hr celecoxib 200 mg capsule 200 mg PO DAILY PRN mild pain 11/20/23 aspirin 81 mg tablet,delayed 81 mg PO QDAY 05/10/24 release (Adult Aspirin Regimen) pantoprazole 40 mg tablet,delayed 40 mg PO QDAY 05/10/24 release amlodipine 5 mg tablet 5 mg PO QDAY #30 tabs 06/01/24 losartan 100 mg tablet 100 mg PO QDAY #90 tabs 06/10/24 metoprolol tartrate 100 mg tablet 100 mg PO BID #60 tabs 06/10/24 Allergies Allergies ixekizumab Allergy (Intermediate, Unverified 05/25/24 13:02) Swelling hydrocodone (From Vicodin) Allergy (Verified 05/25/24 13:02) Nausea Penicillins (PCN) Allergy (Verified 05/25/24 13:02) Hives hyoscyamine Adverse Reaction (Intermediate, Verified 05/25/24 13:02) emesis Sleep Disorder Evaluation Hx of Sleep Apnea: No Do you snore loudly (louder than talking or can be heard through closed doors)?: No Do you often feel tired/ fatigued/ sleepy during daytime?: No Has anyone observed you stop breathing during sleep?: No History of Hypertension (for STOP score): Yes STOP Results: Negative Advanced Directives Advanced Directives Power of Lamp Decorator: Yes Living Will: Yes Advance Directives Information Provided: Yes Advance Directives on File: No DNR Order?:: No Past Medical History Covid-19 Screening Physicial Symptoms Other Clinical Concerns Exposure Risk Pertinent Comorbidities Has a serious heart condition:: Yes Past Medical Illness Medical History Abdominal pain Alcohol use Anemia Arthritis Attention-deficit hyperactivity disorder, unspecified type Cardiac murmur Cardiology follow-up encounter Cervical radiculopathy Chronic cough Depression Diarrhea Dietary restriction Displaced fracture of neck of right second metacarpal bone Drug overdose, multiple drugs Elevated liver enzymes Essential hypertension Former smoker GERD (gastroesophageal reflux disease) History of echocardiogram History of edema History of ganglion cyst History of hiatal hernia History of pain when walking History of rheumatic fever History of steroid therapy History of stress test History of suicide attempt History of vomiting Hx of diarrhea Hypertension Intermittent palpitations Irregular heart beat Left knee pain Left knee pain Leg cramps Loss of consciousness Migraine headache Migraines Mitral regurgitation Mitral valve prolapse Nonrheumatic mitral (valve) prolapse Osteoarthritis of left knee Patellofemoral syndrome, right Preoperative cardiovascular examination Psoriasis Psoriatic arthritis Pure hypercholesterolemia, unspecified Restless legs Rheumatic fever without heart involvement Right knee pain SVT (supraventricular tachycardia) Synovial cyst of popliteal space [Dc], left knee Tear of medial meniscus of left knee Tension-type headache, unspecified, not intractable Unspecified abdominal pain Wears glasses Past Surgical History Surgical History History of cholecystectomy ( 03/2021) History of esophagogastroduodenos copy (EGD) History of hysterectomy Hx of colonoscopy Hx of foot surgery Hx of mitral valve repair (04/14/24) Hx of rotator cuff surgery Hx of tonsillectomy Hx of tubal ligation Surgical History: hysterectomy, tonsillectomy and - Family History Summary Family History Sister Hypertension Mother Thyroid disorder MVP (mitral valve prolapse) SVT (supraventricular tachycardia) Father Hypertension Hyperlipidemia Cancer Prostate Social History Smoking History Smoking Status: Former smoker Years Smokin (less than a pack/day pt stopped in 2011) Alcohol Use Alcohol Usage: Yes (socially) Occupation Occupation ( (more content not included)... Normal [facility] SCRN MAMM (CAD)W/EMETERIO BILATo n 06-17-2024 SCRN MAMM (CAD)W/EMETERIO BILAT [facility] Imaging Services [address] [place] [id number] SCRN MAMM (CAD)W/EMETERIO BILAT MR#: [id number] Acct: [id number] Name: CAMMIE BHAT Elizabeth Rep #: [id number] : 1970 F 53 From: Geoff linares MD PCP: Dr. Nathan Guzman DO Status: REG CLI Study: SCRN MAMM (CAD)W/EMETERIO BILAT Date of Exam: 05/29 08/20 Exam# [id number] Ordering Dr: Nathan Guzman DO [id number] MAMMOGRAPHY - BILATERAL SCREENING REASON FOR EXAM: Female, 53 years old. Routine annual screening examination. PERTINENT HISTORY: Non-contributory. History of prior left breast biopsy. TECHNIQUE: Digital bilateral breast emeterio (3D mammographic acquisition) in the CC and MLO projections. 2-D mediolateral oblique (MLO) and craniocaudad (CC) views of both breasts were obtained. CAD: Full Field Digital Mammography with Computer Added Detection was performed. COMPARISON: Comparison is made with prior study May 12, 2023 and May 07, 2022. FINDINGS: Breast Composition: There are scattered areas of fibroglandular density. There are no dominant masses or suspicious calcifications. Stable bilateral fat containing axillary lymph nodes. A tissue clip marker is seen in the central medial aspect of the left breast. No other significant abnormalities are identified. There has been no significant change since the prior study. BI/SCRN MAMM (CAD)W/EMETERIO BILAT IMPRESSION: Stable bilateral screening mammogram. Yearly follow-up mammogram recommended. (A) ASSESSMENT CATEGORY: BIRADS Category 2: Benign. A letter regarding these results will be sent to the patient by the facility within 30 days. Approximately 10% of breast cancers are not detected by mammography. A normal mammogram should not delay biopsy of a clinically suspicious abnormality. [id number] Electronically Signed: Geoff Andrew MD at 15:30 EST , CC: Dr. Nathan Guzman DO [employer] Laborer: Signed Normal [facility]REACH[facility]-28-2024 [facility] Lipid Profileon 05-27-2024 Cholesterol [Mass/Vol] 248 mg/dL High 200 [facility] Comment on above: Result Comment: <200 mg/dL Desirable 200-240 mg/dL Borderline >240 mg/dL High Risk Performed By: #### L 501.9520, L500.4100 #### [facility] [address] [place], [address] Cholesterol in HDL [Mass/Vol] 70 mg/dL Normal [facility] Comment on above: Result Comment: The drugs N-Acetylcysteine and Metamizole may falsely depress this assay. Reference Range HDL <40 mg/dL Low HDL Cholesterol HDL >or= 60 mg/dL High HDL Cholesterol Performed By: #### L 501.9520, L500.4100 #### [facility] [address] [place], [address] Cholesterol in LDL [Mass/Vol] 144 mg/dL High 0-130 [facility] Comment on above: Performed By: #### L 501.9520, L500.4100 #### [facility] [address] [place], [address] Cholesterol in VLDL [Mass/Vol] 34 mg/dL Normal 5-40 [facility] Comment on above: Performed By: #### L 501.9520, L500.4100 #### [facility] [address] [place], [address] Triglyceride [Mass/Vol] 170 mg/dL Normal [facility] Comment on above: Result Comment: The drugs N-Acetylcysteine and Metamizole may falsely depress this assay. Serum Triglycerides Reference Interval Normal <150 mg/dL Borderline high 150 - 199 mg/dL High 200 - 499 mg/dL Very High > or = 500 mg/dL Performed By: #### L 501.9520, L500.4100 #### [facility] [address] [place], [address] Thyroid Stim Hormone (TSH)on 05-27-2024 TSH 2.930 uIU/mL Normal 0.358-3.740 [facility] Comment on above: Performed By: #### L 501.9520, L500.4100 #### [facility] [address] [place], [address] Cardiology Visit Reporton Cardiology Visit Report [facility] [address] [place], [place] [address] OFFICE VISIT Date of Service: 05/25/24 MR#: [id number] Acct: [id number] Name: CAMMIE BHAT Rep #: [id number] : 1970 Provider: Dr. Malika Samuels MD Age/Sex: 53/F Location: [facility] Status: Signed HPI HPI History of Present Illness Details: Cammie has had her mitral valve repair surgery done last month at the [facility]. Uneventful postop recovery. Denies any chest pains. No shortness of breath. No orthopnea or PND. No ankle edema. Since her surgery, she has not had any palpitations. 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 Accompanied by: Is patient in pain?: No Allergies ixekizumab Allergy (Intermediate, Unverified 05/25/24 13:02) Swelling hydrocodone (From Vicodin) Allergy (Verified 05/25/24 13:02) Nausea Penicillins (PCN) Allergy (Verified 05/25/24 13:02) Hives hyoscyamine Adverse Reaction (Intermediate, Verified 05/25/24 13:02) emesis Medications ???Medication ???Instructions ???Recorded ???Confirmed ???Type rizatriptan 10 mg tablet (Maxalt) 10 mg PO PRN PRN MIGRAINES 02/09/21 05/25/24 History guselkumab 100 mg/mL subcutaneous 100 mg subcut Q8W 04/07/23 05/25/24 History auto-injector (Tremfya) topiramate 25 mg tablet 75 mg PO QHS 04/07/23 05/25/24 History desvenlafaxine succinate 25 mg 25 mg PO QHS 10/09/23 05/25/24 History tablet,extended release 24 hr desvenlafaxine succinate 50 mg 50 mg PO QDAY 10/09/23 05/25/24 History tablet,extended release 24 hr losartan 100 mg tablet 100 mg PO QDAY 10/09/23 05/25/24 History celecoxib 200 mg capsule 200 mg PO DAILY PRN mild pain 11/20/23 05/25/24 History aspirin 81 mg tablet,delayed 81 mg PO QDAY 05/10/24 05/25/24 History release (Adult Aspirin Regimen) pantoprazole 40 mg tablet,delayed 40 mg PO QDAY 05/10/24 05/25/24 History release metoprolol tartrate 50 mg tablet 50 mg PO BID #180 tabs 05/11/24 05/25/24 Rx Ejection fraction %: 61 Have you fallen in the past year?: No PFSH Medical History Abdominal pain Alcohol use Anemia Arthritis Attention-deficit hyperactivity disorder, unspecified type Cardiac murmur Cardiology follow-up encounter Cervical radiculopathy Chronic cough Depression Diarrhea Dietary restriction Displaced fracture of neck of right second metacarpal bone Drug overdose, multiple drugs Elevated liver enzymes Essential hypertension Former smoker GERD (gastroesophageal reflux disease) History of echocardiogram History of edema History of ganglion cyst History of hiatal hernia History of pain when walking History of rheumatic fever History of steroid therapy History of stress test History of suicide attempt History of vomiting Hx of diarrhea Hypertension Intermittent palpitations Irregular heart beat Left knee pain Left knee pain Leg cramps Loss of consciousness Migraine headache Migraines Mitral regurgitation Mitral valve prolapse Nonrheumatic mitral (valve) prolapse Osteoarthritis of left knee Patellofemoral syndrome, right Preoperative cardiovascular examination Psoriasis Psoriatic arthritis Pure hypercholesterolemia, unspecified Restless legs Rheumatic fever without heart involvement Right knee pain SVT (supraventricular tachycardia) Synovial cyst of popliteal space [Dc], left knee Tear of medial meniscus of left knee Tension-type headache, unspecified, not intractable Unspecified abdominal pain Wears glasses Surgical History History of cholecystectomy ( 03/2021) History of esophagogastroduodenos copy (EGD) History of hysterectomy Hx of colonoscopy Hx of foot surgery Hx of mitral valve repair (04/14/24) Hx of rotator cuff surgery Hx of tonsillectomy Hx of tubal ligation Family History Sister Hypertension Mother Thyroid disorder MVP (mitral valve prolapse) SVT (supraventricular tachycardia) Father Hypertension Hyperlipidemia Cancer Prostate 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 Normal [facility] Echo Completeon 05-24-2024 Echo Complete [facility] [address] [place] [address] Echo Complete 05/24/24 1408 MR#: [id number] Acct: [id number] Name: CAMMIE BHAT Rep #: [id number] : 1970 53 From: Malika Samuels MD Attending Dr: Jeyson Galvan NP-C Status: REG CLI Ordering Dr: Jeyson Galvan TODDLER GUIDE TODDLER GUIDE-C Date: 05/24/24 Location: [facility] Sex: F C Admitted: Reason For Study: MITRAL VALVE REPAIR Procedure This was a 2D Doppler, Color Flow transthoracic echocardiogram. Exam performed in department. Left Ventricle Normal size and thickness. The left ventricular ejection fraction is 60 %. No evidence for diastolic dysfunction. Right Ventricle Normal right ventricle. Atria The left atrium is mildly enlarged. Normal right atrium. Mitral Valve When compared with previous study from 01/12/2024, mitral valve posterior leaflet no longer prolapsing. Mild to moderate anteriorly directed eccentric mitral valve regurgitation. Tricuspid Valve Mild tricuspid valve insufficiency. Right ventricular systolic pressure estimated to be 42 mmHg. Aortic Valve Trisinus/trileaflet aortic valve. Pulmonic Valve The pulmonic valve is not well visualized. Great Vessels Normal sized aortic root. Pericardium/Pleural Trivial pericardial effusion. MMode/2D Measurements Calculations LVIDd: 4.7 cm IVSd: 1.0 cm LVOT diam: 2.2 cm LVIDs: 2.9 cm LVPWd: 0.93 cm LVOT area: 3.8 cm2 RVDd: 3.8 cm FS: 37.8 % asc Aorta Diam: 3.8 cm LAV(MOD-bp): 46.1 ml LVAd ap4: 24.0 cm2 LAV(MOD-bp) Indexed: 23.9 ml/m2 LVLd ap4: 7.7 cm LAV(MOD-sp2): 47.1 ml EDV(MOD-sp4): 60.6 ml LAV(MOD-sp4): 46.3 ml EDV(sp4-el): 63.6 ml LVAs ap4: 14.9 cm2 LVLs ap4: 6.7 cm ESV(MOD-sp4): 28.3 ml ESV(sp4-el): 28.1 ml EF(MOD-sp4): 53.2 % EF(sp4-el): 55.8 % LVAd ap2: 30.4 cm2 SV(MOD-sp4): 32.3 ml SV(MOD-sp2): 55.6 ml LVLd ap2: 8.5 cm SI(MOD-sp4): 16.7 ml/m2 SI(MOD-sp2): 28.9 ml/m2 EDV(MOD-sp2): 90.1 ml EDV(sp2-el): 92.1 ml LVAs ap2: 17.1 cm2 LVLs ap2: 7.1 cm ESV(MOD-sp2): 34.5 ml ESV(sp2-el): 35.1 ml EF(MOD-sp2): 61.7 % SV(sp4-el): 35.5 ml Ao sinus diam: 3.[address] Junction: 3.3 cm LA dimension(2D): 3.2 cm LA A4 area: 17.9 cm2 RA A4 area: 12.0 cm2 TAPSE: 1.7 cm Time Measurements MV dec time: 0.30 sec Doppler Measurements Calculations MV E max vicky: 97.0 cm/sec Lat Peak E' Vicky: 6.0 cm/sec Med Peak E' Vicky: 5.4 cm/sec MV A max vikcy: 122.6 cm/sec E/E' lat: 16.2 E/E' med: 17.9 MV E/A: 0.79 MV V2 max: 111.9 cm/sec MV P1/2t max vicky: 100.4 cm/sec Ao V2 max: 106.1 cm/sec MV max P.0 mmHg MV P1/2t: 91.8 msec Ao max P.5 mmHg MV V2 mean: 75.0 cm/sec MV dec slope: 320.1 cm/sec2 Ao V2 mean: 73.5 cm/sec MV mean P.5 mmHg MVA(P1/2t): 2.4 cm2 Ao mean P.4 mmHg MV V2 VTI: 28.3 cm Ao V2 VTI: 20.3 cm MVA(VTI): 2.2 cm2 AV (velocity ratio): 0.80 FRANTZ(I,D): 3.0 cm2 FRANTZ(V,D): 3.0 cm2 LV V1 max: 83.4 cm/sec SV(LVOT): 61.4 ml PA V2 max: 53.5 cm/sec LV V1 max P.8 mmHg PA max PG (full): 0.30 mmHg LV V1 mean P.4 mmHg LV V1 mean: 55.6 cm/sec LV V1 VTI: 16.1 cm TR max vicky: 263.3 cm/sec TR max P.7 mmHg ECHO/Echo Complete Interpretation Summary The left ventricular ejection fraction is 60 %. The left atrium is mildly enlarged. When compared with previous study from 01/12/2024, mitral valve posterior leaflet no longer prolapsing. Mild to moderate anteriorly directed eccentric mitral valve regurgitation. Mild tricuspid valve insufficiency. Right ventricular systolic pressure estimated to be 42 mmHg. Ordering Physician: Jeyson Galvan Referring Physician: Nathan Guzman Performed By: Cande Gibbons RDCS and Student 05/26/24 1003 Date Malika Samuels MD CC: TODDLER GUIDE-C Jeyson Galvan; Dr. Nathan Guzman, Date Dictated: 05/24/24 1408 Date Transcribed: 05/26/24 100 Poultry Farm Laborer: Meli [facility] 05-17-2024 [facility] Normal [facility] 05-10-2024 [facility] Normal [facility] 04-30-2024 [facility] Normal [facility] 04-28-2024 [facility] Normal [facility] CBC panel Auto (Bld)on 04-27 Erythrocyte distribution width (RBC) [Ratio] 12.3 % Normal 11.5-15.0 [facility] Comment on above: Order Comment: Speci doyle Type: BLOOD SPECIMENOrdering Facility: [facility] Address: [address] [place] [address] Performed By: #### 5 8410-2 ####[facility] LABCLIA [id number] [place] [address] [place] Hematocrit (Bld) [Volume fraction] 38.4 % Normal 36.0-46.0 [facility] Comment on above: Order Comment: Jovanny kwon Type: BLOOD SPECIMENOrdering Facility: [facility] Address: [address] [place] [address] Performed By: #### 5 8410-2 ####[facility] LABCLIA [id number] [place] [address] [place] Hemoglobin (Bld) [Mass/Vol] 12.9 g/dL Normal 11.5-15.5 [facility] Comment on above: Order Comment: Speci men Type: BLOOD SPECIMENOrdering Facility: [facility] Address: [address] [place] [address] Performed By: #### 5 8410-2 ####[facility] LABIA [id number] [place] [address] [place] MCH (RBC) [Entitic mass] 33.8 pg Normal 26.0-34.0 [facility] Comment on above: Order Comment: Speci men Type: BLOOD SPECIMENOrdering Facility: [facility] Address: [address] [place] [address] Performed By: #### 5 8410-2 ####[facility] LABIA [id number] [place] [address] [place] MCHC (RBC) [Mass/Vol] 33.6 g/dL Normal 30.5-36.0 [facility] Comment on above: Order Comment: Speci men Type: BLOOD SPECIMENOrdering Facility: [facility] Address: [address] [place] [address] Performed By: #### 5 8410-2 ####[facility] LABIA [id number] [place] [address] [place] MCV (RBC) [Entitic vol] 100.5 fL High 80.0-100.0 [facility] Comment on above: Order Comment: Speci men Type: BLOOD SPECIMENOrdering Facility: [facility] Address: [address] [place] [address] Performed By: #### 5 8410-2 ####[facility] LABCLIA [id number] [place] [address] [place] Nucleated RBC (Bld) [#/Vol] 10*3/uL Normal <0.01 [facility] Comment on above: Order Comment: Speci men Type: BLOOD SPECIMENOrdering Facility: [facility] Address: [address] [place] [address] Performed By: #### 5 8410-2 ####[facility] LABCLIA [id number] [place] [address] [place] Platelet mean volume (Bld) [Entitic vol] 9.5 fL Normal 9.0-12.7 [facility] Comment on above: Order Comment: Speci men Type: BLOOD SPECIMENOrdering Facility: [facility] Address: [address] [place] [address] Performed By: #### 5 8410-2 ####[facility] LABCLIA [id number] [place] [address] [place] Platelets (Bld) [#/Vol] 604 10*3/uL High 150-400 [facility] Comment on above: Order Comment: Speci men Type: BLOOD SPECIMENOrdering Facility: [facility] Address: [address] [place] [address] Performed By: #### 5 8410-2 ####[facility] LABIA [id number] [place] [address] [place] RBC (Bld) [#/Vol] 3.82 10*6/uL Low 3.90-5.20 [facility] Comment on above: Order Comment: Speci men Type: BLOOD SPECIMENOrdering Facility: [facility] Address: [address] [place] [address] Performed By: #### 5 8410-2 ####[facility] LABCLIA [id number] [place] [address] [place] WBC (Bld) [#/Vol] 9.41 10*3/uL Normal 3.70-11.00 [facility] Comment on above: Order Comment: Speci men Type: BLOOD SPECIMENOrdering Facility: [facility] Address: [address] [place] [address] Performed By: #### 5 8410-2 ####[facility] LABCLIA [id number] [address] [address] [place] CNOVon 04-27-2024 CNOV Normal [facility] Comprehensive metabolic 2000 panelon 04-27-2024 Albumin [Mass/Vol] 3.8 g/dL Low 3.9-4.9 [facility] Comment on above: Order Comment: Speci men Type: BLOOD SPECIMENOrdering Facility: [facility] Address: [address] [place] [address] Performed By: #### 2 4323-8 ####[facility] LABCLIA [id number] [place] [address] [place] ALP [Catalytic activity/Vol] 92 U/L Normal 34-123 [facility] Comment on above: Order Comment: Speci men Type: BLOOD SPECIMENOrdering Facility: [facility] Address: [address] [place] [address] Performed By: #### 2 4323-8 ####[facility] LABCLIA [id number] [place] [address] [place] ALT [Catalytic activity/Vol] 15 U/L Normal 7-38 [facility] Comment on above: Order Comment: Speci men Type: BLOOD SPECIMENOrdering Facility: [facility] Address: [address] [place] [address] Performed By: #### 2 4323-8 ####[facility] LABCLIA [id number] [place] [address] [place] Anion gap [Moles/Vol] 12 mmol/L Normal 8-15 [facility] Comment on above: Order Comment: Speci men Type: BLOOD SPECIMENOrdering Facility: [facility] Address: [address] [id number] Performed By: #### 2 4323-8 ####[facility] LABCLIA [id number] [place] [address] [place] AST [Catalytic activity/Vol] 24 U/L Normal 13-35 [facility] Comment on above: Order Comment: Speci men Type: BLOOD SPECIMENOrdering Facility: [facility] Address: [address] [place] [address] Performed By: #### 2 4323-8 ####[facility] LABCLIA [id number] [place] [address] [place] Bilirubin [Mass/Vol] 0.2 mg/dL Normal 0.2-1.3 [facility] Comment on above: Order Comment: Speci men Type: BLOOD SPECIMENOrdering Facility: [facility] Address: [address] [place] [address] Performed By: #### 2 4323-8 ####[facility] LABCLIA [id number] [place] [address] [place] Calcium [Mass/Vol] 9.8 mg/dL Normal 8.5-10.2 [facility] Comment on above: Order Comment: Speci men Type: BLOOD SPECIMENOrdering Facility: [facility] Address: [address] [place] [address] Performed By: #### 2 4323-8 ####[facility] LABCLIA [id number] [place] [address] [place] Chloride [Moles/Vol] 104 mmol/L Normal 98-107 [facility] Comment on above: Order Comment: Speci men Type: BLOOD SPECIMENOrdering Facility: [facility] Address: [address] [place], [place] [id number] Performed By: #### 2 4323-8 ####[facility] LABCLIA [id number] [place] [address] [place] CO2 [Moles/Vol] 23 mmol/L Normal 22-30 [facility] Comment on above: Order Comment: Speci men Type: BLOOD SPECIMENOrdering Facility: [facility] Address: [address] [place] [address] Performed By: #### 2 4323-8 ####[facility] LABCLIA [id number] [place] [address] [place] Creatinine [Mass/Vol] 0.76 mg/dL Normal 0.58-0.96 [facility] Comment on above: Order Comment: Speci men Type: BLOOD SPECIMENOrdering Facility: [facility] Address: [address] [place] [address] Performed By: #### 2 4323-8 ####[facility] LABCLIA [id number] [place] [address] [place] [facility] Creatinine and Glomerular filtration rate.predicted panel (S/P/Bld) 93 mL/min/1.73m??? Normal >=60 [facility] Comment on above: Order Comment: Speci men Type: BLOOD SPECIMENOrdering Facility: [facility] Address: [address] [place] [address] Result Comment: Brandy mated Glomerular Filtration Rate (eGFR) is calculated using the 2020 CKD-EPI creatinine equation. This equation utilizes serum creatinine, sex, and age as parameters. The creatinine assay has traceable calibration to isotope dilution-mass spectrometry. Refer to KDIGO guidelines for clinical interpretation. In patients with unstable renal function, e.g. those with acute kidney injury, the eGFR may not accurately reflect actual GFR. Performed By: #### 2 4323-8 ####[facility] LABCLIA [id number] [place] [address] [place] Glucose [Mass/Vol] 111 mg/dL High 74-99 [facility] Comment on above: Order Comment: Speci men Type: BLOOD SPECIMENOrdering Facility: [facility] Address: [address] [place] [address] Result Comment: The [place] Diabetes Association (ADA) provides guidance for cutoff values for fasting glucose and random glucose. The ADA defines fasting as no caloric intake for at least 8 hours. Fasting plasma glucose results between 100 to 125 mg/dL indicate increased risk for diabetes (prediabetes).Fasting plasma glucose results greater than or equal to 126 mg/dL meet the criteria for diagnosis of diabetes. In the absence of unequivocal hyperglycemia, results should be confirmed by repeat testing. In a patient with classic symptoms of hyperglycemia or hyperglycemic crisis, random plasma glucose results greater than or equal to 200 mg/dL meet the criteria for diagnosis of diabetes.Reference: Standards of Medical Care in Diabetes 2016, [place] [employer] Association. Diabetes Care. 2016.39(Suppl 1). Performed By: #### 2 4323-8 ####[facility] LABCLIA [id number] [place] [address] [place] Potassium [Moles/Vol] 4.1 mmol/L Normal 3.7-5.1 [facility] Comment on above: Order Comment: Speci men Type: BLOOD SPECIMENOrdering Facility: [facility] Address: [address] [place] [address] Performed By: #### 2 4323-8 ####[facility] LABCLIA [id number] [place] [address] [place] Protein [Mass/Vol] 7.6 g/dL Normal 6.3-8.0 [facility] Comment on above: Order Comment: Speci men Type: BLOOD SPECIMENOrdering Facility: [facility] Address: [address] [place] [address] Performed By: #### 2 4323-8 ####[facility] LABCLIA [id number] [place] [address] [place] Sodium [Moles/Vol] 139 mmol/L Normal 136-144 [facility] Comment on above: Order Comment: Speci men Type: BLOOD SPECIMENOrdering Facility: [facility] Address: [address] [place] [address] Performed By: #### 2 4323-8 ####[facility] LABCLIA [id number] [place] [id number] [place] Urea nitrogen [Mass/Vol] 10 mg/dL Normal 7-21 [facility] Comment on above: Order Comment: Speci men Type: BLOOD SPECIMENOrdering Facility: [facility] Address: [address] [place] [address] Performed By: #### 2 4323-8 ####[facility] LABCLIA [id number] [place] [id number] [place] [id number] 04-27-2024 ECG01 Normal [facility] XR CHEST 2V FRONTAL/LATon XR CHEST 2V FRONTAL/LAT Normal [facility] XR Chest PA and Lateralon IMPRESSION: See result Poultry Farm Laborer: CHERYL Transcribe Date/Time: Apr 27 2024 3:19P Dictated by : KESHAV MACIAS MD This examination was interpreted and the report reviewed and electronically signed by: KESHAV MACIAS MD on Apr 27 2024 3:21PM [facility] DIVISION OF RADIOLOGY * * *Final Report* * * DATE OF EXAM: Apr 27 2024 2:28PM [id number] - XR CHEST 2V FRONTAL/LAT / PROCEDURE REASON: Surgery follow-up * * * * Physician Interpretation * * * * EXAMINATION: CHEST RADIOGRAPH (2 VIEW FRONTAL & LATERAL) CLINICAL HISTORY: Surgery follow-up MQ: XC2_6 EXAM DATE/TIME: 04/27/2024 2:28 PM COMPARISON: 04/16/2024 RESULT: Lines, tubes, and devices: None. Lungs and pleura: Decrease in size of small to moderate right pleural effusion, currently small. Trace left pleural effusion has resolved. Improvement of bibasilar atelectasis, involving right more than left. No pneumothorax. Cardiomediastinal silhouette: Heart is within normal in size. Changes of MVR. Thoracic aorta is tortuous. Bones and soft tissues: Unremarkable. DIVISION OF RADIOLOGY Provider, [facility] Marilee Woods - 04/27/2024 * * *Final Report* * * DATE OF EXAM: Apr 27 2024 2:28PM [id number] - XR CHEST 2V FRONTAL/LAT / PROCEDURE REASON: Surgery follow-up * * * * Physician Interpretation * * * * EXAMINATION: CHEST RADIOGRAPH (2 VIEW FRONTAL & LATERAL) CLINICAL HISTORY: Surgery follow-up MQ: XC2_6 EXAM DATE/TIME: 04/27/2024 2:28 PM COMPARISON: 04/16/2024 RESULT: Lines, tubes, and devices: None. Lungs and pleura: Decrease in size of small to moderate right pleural effusion, currently small. Trace left pleural effusion has resolved. Improvement of bibasilar atelectasis, involving right more than left. No pneumothorax. Cardiomediastinal silhouette: Heart is within normal in size. Changes of MVR. Thoracic aorta is tortuous. Bones and soft tissues: Unremarkable. IMPRESSION IMPRESSION: See result [employer]oultry [employer] Laborer: CHERYL Transcribe Date/Time: Apr 27 2024 3:19P Dictated by : KESHAV MACIAS MD This examination was interpreted and the report reviewed and electronically signed by: KESHAV MACIAS MD on Apr 27 2024 3:21PM [facility] Radiology Study observation (narrative) [facility] XR Chest PA and LateralOrder ed By: Ccf Provider on 04-27-2024 [facility] 04-22-2024 [facility] Normal [facility] 04-21-2024 [facility] 04-19-2024 [facility] CBC panel Auto (Bld)on 04-18 Erythrocyte distribution width (RBC) [Ratio] 12.5 % Normal 11.5-15.0 [facility] Comment on above: Order Comment: Speci men Type: BLOOD SPECIMENOrdering Facility: [facility] Address: [address] [place] [address] Performed By: #### 5 8410-2 ####[facility] LABCLIA [id number] [place] [address] [place] Hematocrit (Bld) [Volume fraction] 31.8 % Low 36.0-46.0 [facility] Comment on above: Order Comment: Speci men Type: BLOOD SPECIMENOrdering Facility: [facility] Address: [address] [place] [address] Performed By: #### 5 8410-2 ####[facility] LABCLIA [id number] [place] [address] [place] Hemoglobin (Bld) [Mass/Vol] 10.2 g/dL Low 11.5-15.5 [facility] Comment on above: Order Comment: Speci men Type: BLOOD SPECIMENOrdering Facility: [facility] Address: [address] [place] [address] Performed By: #### 5 8410-2 ####[facility] LABIA [id number] [place] [address] [place] MCH (RBC) [Entitic mass] 32.4 pg Normal 26.0-34.0 [facility] Comment on above: Order Comment: Speci men Type: BLOOD SPECIMENOrdering Facility: [facility] Address: [address] [place] [address] Performed By: #### 5 8410-2 ####[facility] LABIA [id number] [place] [address] [place] MCHC (RBC) [Mass/Vol] 32.1 g/dL Normal 30.5-36.0 [facility] Comment on above: Order Comment: Speci men Type: BLOOD SPECIMENOrdering Facility: [facility] Address: [address] [place] [address] Performed By: #### 5 8410-2 ####[facility] LABCLIA [id number] [place] [address] [place] MCV (RBC) [Entitic vol] 101.0 fL High 80.0-100.0 [facility] Comment on above: Order Comment: Speci men Type: BLOOD SPECIMENOrdering Facility: [facility] Address: [address] [place] [address] Performed By: #### 5 8410-2 ####[facility] LABCLIA [id number] [place] [address] [place] Nucleated RBC (Bld) [#/Vol] 10*3/uL Normal <0.01 [facility] Comment on above: Order Comment: Speci men Type: BLOOD SPECIMENOrdering Facility: [facility] Address: [address] [place] [address] Performed By: #### 5 8410-2 ####[facility] LABIA [id number] [place] [address] [place] Platelet mean volume (Bld) [Entitic vol] 9.5 fL Normal 9.0-12.7 [facility] Comment on above: Order Comment: Speci men Type: BLOOD SPECIMENOrdering Facility: [facility] Address: [address] [place] [address] Performed By: #### 5 8410-2 ####[facility] [id number] [place] [address] [place] Platelets (Bld) [#/Vol] 205 10*3/uL Normal 150-400 [facility] Comment on above: Order Comment: Speci men Type: BLOOD SPECIMENOrdering Facility: [facility] Address: [address] [place] [address] Performed By: #### 5 8410-2 ####[facility] [id number] [place] [address] [place] RBC (Bld) [#/Vol] 3.15 10*6/uL Low 3.90-5.20 [facility] Comment on above: Order Comment: Speci men Type: BLOOD SPECIMENOrdering Facility: [facility] Address: [address] [place] [address] Performed By: #### 5 8410-2 ####[facility] LABIA [id number] [place] [address] [place] WBC (Bld) [#/Vol] 6.56 10*3/uL Normal 3.70-11.00 [facility] Comment on above: Order Comment: Speci men Type: BLOOD SPECIMENOrdering Facility: [facility] Address: [address] [place] [address] Performed By: #### 5 8410-2 ####[facility] LABCLIA [id number] [place] [address] [place] Comprehensive metabolic 2000 panelon 04-18-2024 Albumin [Mass/Vol] 2.9 g/dL Low 3.9-4.9 [facility] Comment on above: Order Comment: Speci men Type: BLOOD SPECIMENOrdering Facility: [facility] Address: [address] [place] [address] Performed By: #### 2 4323-8 ####[facility] LABCLIA [id number] [place] [address] [place] ALP [Catalytic activity/Vol] 73 U/L Normal 34-123 [facility] Comment on above: Order Comment: Speci men Type: BLOOD SPECIMENOrdering Facility: [facility] Address: [address] [place] [address] Performed By: #### 2 4323-8 ####[facility] LABCLIA [id number] [place] [address] [place] ALT [Catalytic activity/Vol] 27 U/L Normal 7-38 [facility] Comment on above: Order Comment: Speci men Type: BLOOD SPECIMENOrdering Facility: [facility] Address: [address] [place] [address] Performed By: #### 2 4323-8 ####[facility] LABCLIA [id number] [place] [address] [place] Anion gap [Moles/Vol] 9 mmol/L Normal 8-15 [facility] Comment on above: Order Comment: Speci men Type: BLOOD SPECIMENOrdering Facility: [facility] Address: [address] [place] [address] Performed By: #### 2 4323-8 ####[facility] LABCLIA [id number] [place] [address] [place] AST [Catalytic activity/Vol] 21 U/L Normal 13-35 [facility] Comment on above: Order Comment: Speci men Type: BLOOD SPECIMENOrdering Facility: [facility] Address: [address] [place] [address] Performed By: #### 2 4323-8 ####[facility] LABCLIA [id number] [place] [address] [place] Bilirubin [Mass/Vol] 0.3 mg/dL Normal 0.2-1.3 [facility] Comment on above: Order Comment: Speci men Type: BLOOD SPECIMENOrdering Facility: [facility] Address: [address] [place] [address] Performed By: #### 2 4323-8 ####[facility] LABCLIA [id number] [place] [address] [place] Calcium [Mass/Vol] 8.6 mg/dL Normal 8.5-10.2 [facility] Comment on above: Order Comment: Speci men Type: BLOOD SPECIMENOrdering Facility: [facility] Address: [address] [place] [address] Performed By: #### 2 4323-8 ####[facility] LABCLIA [id number] [place] [address] [place] Chloride [Moles/Vol] 105 mmol/L Normal 98-107 [facility] Comment on above: Order Comment: Speci men Type: BLOOD SPECIMENOrdering Facility: [facility] Address: [address] [place] [address] Performed By: #### 2 4323-8 ####[facility] LABCLIA [id number] [place] [address] [place] CO2 [Moles/Vol] 22 mmol/L Normal 22-30 [facility] Comment on above: Order Comment: Speci men Type: BLOOD SPECIMENOrdering Facility: [facility] Address: [address] [place] [address] Performed By: #### 2 4323-8 ####[facility] LABCLIA [id number] [place] [address] [place] Creatinine [Mass/Vol] 0.70 mg/dL Normal 0.58-0.96 [facility] Comment on above: Order Comment: Speci men Type: BLOOD SPECIMENOrdering Facility: [facility] Address: [address] [place] [address] Performed By: #### 2 4323-8 ####[facility] LABCLIA [id number] [place] [address] [place] Creatinine and Glomerular filtration rate.predicted panel (S/P/Bld) 103 mL/min/1.73m??? Normal >=60 [facility] Comment on above: Order Comment: Speci men Type: BLOOD SPECIMENOrdering Facility: [facility] Address: [address] [place] [address] Result Comment: Brandy mated Glomerular Filtration Rate (eGFR) is calculated using the 2020 CKD-EPI creatinine equation. This equation utilizes serum creatinine, sex, and age as parameters. The creatinine assay has traceable calibration to isotope dilution-mass spectrometry. Refer to KDIGO guidelines for clinical interpretation. In patients with unstable renal function, e.g. those with acute kidney injury, the eGFR may not accurately reflect actual GFR. Performed By: #### 2 4323-8 ####[facility] LABCLIA [id number] [place] [address] [place] Glucose [Mass/Vol] 100 mg/dL High 74-99 [facility] Comment on above: Order Comment: Speci men Type: BLOOD SPECIMENOrdering Facility: [facility] Address: [address] [place] [address] Result Comment: The [place] Diabetes [employer] (ADA) provides guidance for cutoff values for fasting glucose and random glucose. The ADA defines fasting as no caloric intake for at least 8 hours. Fasting plasma glucose results between 100 to 125 mg/dL indicate increased risk for diabetes (prediabetes).Fasting plasma glucose results greater than or equal to 126 mg/dL meet the criteria for diagnosis of diabetes. In the absence of unequivocal hyperglycemia, results should be confirmed by repeat testing. In a patient with classic symptoms of hyperglycemia or hyperglycemic crisis, random plasma glucose results greater than or equal to 200 mg/dL meet the criteria for diagnosis of diabetes.Reference: Standards of Medical Care in Diabetes 2016, [place] [employer]. Diabetes Care. 2016.39(Suppl 1). Performed By: #### 2 4323-8 ####[facility] LABCLIA [id number] [place] [address] [place] Potassium [Moles/Vol] 3.5 mmol/L Low 3.7-5.1 [facility] Comment on above: Order Comment: Speci men Type: BLOOD SPECIMENOrdering Facility: [facility] Address: [address] [place] [address] Performed By: #### 2 4323-8 ####[facility] LABCLIA [id number] [place] [address] [place] Protein [Mass/Vol] 5.8 g/dL Low 6.3-8.0 [facility] Comment on above: Order Comment: Speci men Type: BLOOD SPECIMENOrdering Facility: [facility] Address: [address] [place] [address] Performed By: #### 2 4323-8 ####[facility] LABCLIA [id number] [place] [address] [place] Sodium [Moles/Vol] 136 mmol/L Normal 136-144 [facility] Comment on above: Order Comment: Speci men Type: BLOOD SPECIMENOrdering Facility: [facility] Address: [address] [place] [address] Performed By: #### 2 4323-8 ####[facility] LABCLIA [id number] [place] [address] [place] Urea nitrogen [Mass/Vol] 10 mg/dL Normal 7-21 [facility] Comment on above: Order Comment: Speci men Type: BLOOD SPECIMENOrdering Facility: [facility] Address: [address] [place] [address] Performed By: #### 2 4323-8 ####[facility] LABCLIA [id number] [place] [address] [place] CBC panel Auto (Bld)on 04-17 Erythrocyte distribution width (RBC) [Ratio] 12.4 % Normal 11.5-15.0 [facility] Comment on above: Order Comment: Speci men Type: BLOOD SPECIMENOrdering Facility: [facility] Address: [address] [place] [address] Performed By: #### 5 8410-2 ####[facility] LABIA [id number] [address] [place] Hematocrit (Bld) [Volume fraction] 34.3 % Low 36.0-46.0 [facility] Comment on above: Order Comment: Speci men Type: BLOOD SPECIMENOrdering Facility: [facility] Address: [address] [place] [address] Performed By: #### 5 8410-2 ####[facility] LABCLIA [id number] [place] [address] [place] Hemoglobin (Bld) [Mass/Vol] 11.0 g/dL Low 11.5-15.5 [facility] Comment on above: Order Comment: Speci men Type: BLOOD SPECIMENOrdering Facility: [facility] Address: [address] [place] [address] Performed By: #### 5 8410-2 ####[facility] LABCLIA [id number] [place] [address] [place] MCH (RBC) [Entitic mass] 33.2 pg Normal 26.0-34.0 [facility] Comment on above: Order Comment: Speci men Type: BLOOD SPECIMENOrdering Facility: [facility] Address: [address] [place] [address] Performed By: #### 5 8410-2 ####[facility] LABIA [id number] [place] [address] [place] MCHC (RBC) [Mass/Vol] 32.1 g/dL Normal 30.5-36.0 [facility] Comment on above: Order Comment: Speci men Type: BLOOD SPECIMENOrdering Facility: [facility] Address: [address] [place] [address] Performed By: #### 5 8410-2 ####[facility] LABIA [id number] [place] [address] [place] MCV (RBC) [Entitic vol] 103.6 fL High 80.0-100.0 [facility] Comment on above: Order Comment: Speci men Type: BLOOD SPECIMENOrdering Facility: [facility] Address: [address] [place] [address] Performed By: #### 5 8410-2 ####[facility] LABIA [id number] [place] [address] [place] Nucleated RBC (Bld) [#/Vol] 10*3/uL Normal <0.01 [facility] Comment on above: Order Comment: Speci men Type: BLOOD SPECIMENOrdering Facility: [facility] Address: [address] [place] [address] Performed By: #### 5 8410-2 ####[facility] LABIA [id number] [place] [address] [place] Platelet mean volume (Bld) [Entitic vol] 10.2 fL Normal 9.0-12.7 [facility] Comment on above: Order Comment: Speci men Type: BLOOD SPECIMENOrdering Facility: [facility] Address: [address] [place] [address] Performed By: #### 5 8410-2 ####[facility] LABCLIA [id number] [place] [address] [place] Platelets (Bld) [#/Vol] 174 10*3/uL Normal 150-400 [facility] Comment on above: Order Comment: Speci men Type: BLOOD SPECIMENOrdering Facility: [facility] Address: [address] [place] [address] Performed By: #### 5 8410-2 ####[facility] LABCLIA [id number] [place] [address] [place] RBC (Bld) [#/Vol] 3.31 10*6/uL Low 3.90-5.20 [facility] Comment on above: Order Comment: Speci men Type: BLOOD SPECIMENOrdering Facility: [facility] Address: [address] [place] [address] Performed By: #### 5 8410-2 ####[facility] LABCLIA [id number] [place] [address] [place] WBC (Bld) [#/Vol] 7.83 10*3/uL Normal 3.70-11.00 [facility] Comment on above: Order Comment: Speci men Type: BLOOD SPECIMENOrdering Facility: [facility] Address: [address] [place] [address] Performed By: #### 5 8410-2 ####[facility] LABCLIA [id number] [place] [id number] [place] Comprehensive metabolic 2000 panelon 04-17-2024 Albumin [Mass/Vol] 3.2 g/dL Low 3.9-4.9 [facility] Comment on above: Order Comment: Speci men Type: BLOOD SPECIMENOrdering Facility: [facility] Address: [address] [place] [address] Performed By: #### 2 4323-8 ####[facility] LABCLIA [id number] [place] [address] [place] ALP [Catalytic activity/Vol] 79 U/L Normal 34-123 [facility] Comment on above: Order Comment: Speci men Type: BLOOD SPECIMENOrdering Facility: [facility] Address: [address] [place] [address] Performed By: #### 2 4323-8 ####[facility] LABCLIA [id number] [place] [address] [place] ALT [Catalytic activity/Vol] 40 U/L High 7-38 [facility] Comment on above: Order Comment: Speci men Type: BLOOD SPECIMENOrdering Facility: [facility] Address: [address] [place] [address] Performed By: #### 2 4323-8 ####[facility] LABCLIA [id number] [place] [address] [place] Anion gap [Moles/Vol] 10 mmol/L Normal 8-15 [facility] Comment on above: Order Comment: Speci men Type: BLOOD SPECIMENOrdering Facility: [facility] Address: [address] [place] [address] Performed By: #### 2 4323-8 ####[facility] LABCLIA [id number] [place] [address] [place] AST [Catalytic activity/Vol] 52 U/L High 13-35 [facility] Comment on above: Order Comment: Speci men Type: BLOOD SPECIMENOrdering Facility: [facility] Address: [address] [place] [address] Performed By: #### 2 4323-8 ####[facility] LABCLIA [id number] [place] [address] [place] Bilirubin [Mass/Vol] 0.4 mg/dL Normal 0.2-1.3 [facility] Comment on above: Order Comment: Speci men Type: BLOOD SPECIMENOrdering Facility: [facility] Address: [address] [place] [id number] Performed By: #### 2 4323-8 ####[facility] LABCLIA [id number] [place] [address] [place] Calcium [Mass/Vol] 8.6 mg/dL Normal 8.5-10.2 [facility] Comment on above: Order Comment: Speci men Type: BLOOD SPECIMENOrdering Facility: [facility] Address: [address] [place] [address] Performed By: #### 2 4323-8 ####[facility] LABCLIA [id number] [place] [address] [place] Chloride [Moles/Vol] 104 mmol/L Normal 98-107 [facility] Comment on above: Order Comment: Speci men Type: BLOOD SPECIMENOrdering Facility: [facility] Address: [address] [place] [address] Performed By: #### 2 4323-8 ####[facility] LABCLIA [id number] [place] [address] [place] CO2 [Moles/Vol] 24 mmol/L Normal 22-30 [facility] Comment on above: Order Comment: Speci men Type: BLOOD SPECIMENOrdering Facility: [facility] Address: [address] [place], [place] [address] Performed By: #### 2 4323-8 ####[facility] LABCLIA [id number] [place] [id number] [place] Creatinine [Mass/Vol] 0.71 mg/dL Normal 0.58-0.96 [facility] Comment on above: Order Comment: Speci men Type: BLOOD SPECIMENOrdering Facility: [facility] Address: [address] [place], [place] [address] Performed By: #### 2 4323-8 ####[facility] LABCLIA [id number] [place] [address] [place] Creatinine and Glomerular filtration rate.predicted panel (S/P/Bld) 101 mL/min/1.73m??? Normal >=60 [facility] Comment on above: Order Comment: Jovanny kwon Type: BLOOD SPECIMENOrdering Facility: [facility] Address: [address] [place] [address] Result Comment: Brandy mated Glomerular Filtration Rate (eGFR) is calculated using the 2020 CKD-EPI creatinine equation. This equation utilizes serum creatinine, sex, and age as parameters. The creatinine assay has traceable calibration to isotope dilution-mass spectrometry. Refer to KDIGO guidelines for clinical interpretation. In patients with unstable renal function, e.g. those with acute kidney injury, the eGFR may not accurately reflect actual GFR. Performed By: #### 2 4323-8 ####[facility] LABCLIA [id number] [place] [address] [place] Glucose [Mass/Vol] 100 mg/dL High 74-99 [facility] Comment on above: Order Comment: Jovanny kwon Type: BLOOD SPECIMENOrdering Facility: [facility] Address: [address] [place] [address] Result Comment: The [place] Diabetes Association (ADA) provides guidance for cutoff values for fasting glucose and random glucose. The ADA defines fasting as no caloric intake for at least 8 hours. Fasting plasma glucose results between 100 to 125 mg/dL indicate increased risk for diabetes (prediabetes).Fasting plasma glucose results greater than or equal to 126 mg/dL meet the criteria for diagnosis of diabetes. In the absence of unequivocal hyperglycemia, results should be confirmed by repeat testing. In a patient with classic symptoms of hyperglycemia or hyperglycemic crisis, random plasma glucose results greater than or equal to 200 mg/dL meet the criteria for diagnosis of diabetes.Reference: Standards of Medical Care in Diabetes 2016, [place] [employer]. Diabetes Care. 2016.39(Suppl 1). Performed By: #### 2 4323-8 ####[facility] LABCLIA [id number] [place] [address] [place] Potassium [Moles/Vol] 4.1 mmol/L Normal 3.7-5.1 [facility] Comment on above: Order Comment: Speci men Type: BLOOD SPECIMENOrdering Facility: [facility] Address: [address] [place] [address] Performed By: #### 2 4323-8 ####[facility] LABCLIA [id number] [address] [address] [place] Protein [Mass/Vol] 6.1 g/dL Low 6.3-8.0 [facility] Comment on above: Order Comment: Speci men Type: BLOOD SPECIMENOrdering Facility: [facility] Address: [address] [place] [address] Performed By: #### 2 4323-8 ####[facility] LABCLIA [id number] [place] [address] [place] Sodium [Moles/Vol] 138 mmol/L Normal 136-144 [facility] Comment on above: Order Comment: Speci men Type: BLOOD SPECIMENOrdering Facility: [facility] Address: [address] [place] [address] Performed By: #### 2 4323-8 ####[facility] LABCLIA [id number] [place] [address] [place] Urea nitrogen [Mass/Vol] 7 mg/dL Normal 7-21 [facility] Comment on above: Order Comment: Speci men Type: BLOOD SPECIMENOrdering Facility: [facility] Address: [address] [place] [address] Performed By: #### 2 4323-8 ####[facility] LABCLIA [id number] [place] [id number] [place] Urinalysis complete panel (U )on 04-17-2024 BACTERIA UL 3312.2 uL High Negative [facility] Comment on above: Order Comment: Speci men Type: URINE SPECIMENOrdering Facility: [facility] Address: [address] [place] [address] Performed By: #### 2 4356-8 ####[facility] LABCLIA [id number] [place] [address] [place] Bilirubin Ql (U) Negative Normal Negative [facility] Comment on above: Order Comment: Speci men Type: URINE SPECIMENOrdering Facility: [facility] Address: [address] [place] [address] Performed By: #### 2 4356-8 ####[facility] LABCLIA [id number] [place] [address] [place] Clarity (Unsp spec) Clear Normal Clear [facility] Comment on above: Order Comment: Speci men Type: URINE SPECIMENOrdering Facility: [facility] Address: [address] [place] [address] Performed By: #### 2 4356-8 ####[facility] LABIA [id number] [place] [address] [place] [facility] Color (U) Yellow Normal Yellow [facility] Comment on above: Order Comment: Speci men Type: URINE SPECIMENOrdering Facility: [facility] Address: [address] [place] [address] Performed By: #### 2 4356-8 ####[facility] LABCLIA [id number] [place] [address] [place] Epithelial cells LM.HPF (Urine sed) [#/Area] Moderate Normal [facility] Comment on above: Order Comment: Speci men Type: URINE SPECIMENOrdering Facility: [facility] Address: [address] [place] [address] Performed By: #### 2 4356-8 ####[facility] LABIA [id number] [place] [address] [place] Glucose Test strip (U) [Mass/Vol] Negative Normal Negative [facility] Comment on above: Order Comment: Speci men Type: URINE SPECIMENOrdering Facility: [facility] Address: [address] [place] [address] Performed By: #### 2 4356-8 ####[facility] LABCLIA [id number] [place] [address] [place] Hemoglobin Ql (U) Negative Normal Negative [facility] Comment on above: Order Comment: Speci men Type: URINE SPECIMENOrdering Facility: [facility] Address: [address] [place] [address] Performed By: #### 2 4356-8 ####[facility] LABCLIA [id number] [place] [address] [place] Hyaline casts (Urine sed) [#/Area] 0 /[LPF] Normal 0 /LPF [facility] Comment on above: Order Comment: Speci men Type: URINE SPECIMENOrdering Facility: [facility] Address: [address] [place] [address] Performed By: #### 2 4356-8 ####[facility] LABCLIA [id number] [place] [address] [place] Ketones Ql (U) Negative Normal Negative [facility] Comment on above: Order Comment: Speci men Type: URINE SPECIMENOrdering Facility: [facility] Address: [address] [place] [address] Performed By: #### 2 4356-8 ####[facility] LABCLIA [id number] [place] [address] [place] Leukocyte esterase Test strip Ql (U) Negative Normal Negative [facility] Comment on above: Order Comment: Speci men Type: URINE SPECIMENOrdering Facility: [facility] Address: [address] [place] [address] Performed By: #### 2 4356-8 ####[facility] LABCLIA [id number] [place] [address] [place] Nitrite Ql (U) Negative Normal Negative [facility] Comment on above: Order Comment: Speci men Type: URINE SPECIMENOrdering Facility: [facility] Address: [address] [place] [address] Performed By: #### 2 4356-8 ####[facility] LABCLIA [id number] [place] [address] [place] pH (U) 8.0 [pH] Normal <8.5 [facility] Comment on above: Order Comment: Speci men Type: URINE SPECIMENOrdering Facility: [facility] Address: [address] [place] [address] Performed By: #### 2 4356-8 ####[facility] LABIA [id number] [place] [address] [place] Protein (U) [Mass/Vol] Trace Abnormal Negative Cl [facility] Comment on above: Order Comment: Speci men Type: URINE SPECIMENOrdering Facility: [facility] Address: [address] [place] [address] Performed By: #### 2 4356-8 ####[facility] LABIA [id number] [place] [address] [place] RBC LM.HPF (Urine sed) [#/Area] 0-2 /HPF Normal 0-2 /HPF [facility] Comment on above: Order Comment: Speci men Type: URINE SPECIMENOrdering Facility: [facility] Address: [address] [place] [address] Performed By: #### 2 4356-8 ####[facility] LABCLIA [id number] [place] [address] [place] Specific gravity (U) [Rel density] 1.019 Normal 1.005-1.030 [facility] Comment on above: Order Comment: Speci men Type: URINE SPECIMENOrdering Facility: [facility] Address: [address] [place] [address] Performed By: #### 2 4356-8 ####[facility] LABCLIA [id number] [place] [address] [place] Urobilinogen Ql (U) 1.0 EU/dL Normal 0.2-1.0 EU/dL [facility] Comment on above: Order Comment: Speci men Type: URINE SPECIMENOrdering Facility: [facility] Address: [address] [place] [address] Performed By: #### 2 4356-8 ####[facility] LABCLIA [id number] [place] [address] [place] WBC LM.HPF (Urine sed) [#/Area] 0-5 /HPF Normal 0-5 /HPF [facility] Comment on above: Order Comment: Speci men Type: URINE SPECIMENOrdering Facility: [facility] Address: [address] [place] [address] Performed By: #### 2 4356-8 ####[facility] LABIA [id number] [place] [address] [place] Yeast.budding LM.HPF (Urine sed) [#/Area] Present Abnormal None Seen [facility] Comment on above: Order Comment: Speci men Type: URINE SPECIMENOrdering Facility: [facility] Address: [address] [place] [address] Performed By: #### 2 4356-8 ####[facility] LABIA [id number] [place] [address] [place] ALLIED HEALTHon 04-16-2024 ALLIED HEALTH Normal [facility] CASE MANAGEMon 04-16-2024 CASE MANAGEM Normal [facility] CBC panel Auto (Bld)on 04-16 Erythrocyte distribution width (RBC) [Ratio] 12.6 % Normal 11.5-15.0 [facility] Comment on above: Order Comment: Speci men Type: BLOOD SPECIMENOrdering Facility: [facility] Address: [address] [place] [address] Performed By: #### 5 8410-2 ####[facility] [id number] [place] [address] [place] Hematocrit (Bld) [Volume fraction] 31.8 % Low 36.0-46.0 [facility] Comment on above: Order Comment: Speci men Type: BLOOD SPECIMENOrdering Facility: [facility] Address: [address] [place] [address] Performed By: #### 5 8410-2 ####[facility] [id number] [place] [address] [place] Hemoglobin (Bld) [Mass/Vol] 10.7 g/dL Low 11.5-15.5 [facility] Comment on above: Order Comment: Speci men Type: BLOOD SPECIMENOrdering Facility: [facility] Address: [address] [place] [address] Performed By: #### 5 8410-2 ####[facility] [id number] [place] [address] [place] MCH (RBC) [Entitic mass] 34.0 pg Normal 26.0-34.0 [facility] Comment on above: Order Comment: Speci men Type: BLOOD SPECIMENOrdering Facility: [facility] Address: [address] [place] [address] Performed By: #### 5 8410-2 ####[facility] [id number] [place] [address] [place] MCHC (RBC) [Mass/Vol] 33.6 g/dL Normal 30.5-36.0 [facility] Comment on above: Order Comment: Speci men Type: BLOOD SPECIMENOrdering Facility: [facility] Address: [address] [place] [address] Performed By: #### 5 8410-2 ####[facility] [id number] [place] [address] [place] MCV (RBC) [Entitic vol] 101.0 fL High 80.0-100.0 [facility] Comment on above: Order Comment: Speci men Type: BLOOD SPECIMENOrdering Facility: [facility] Address: [address] [place] [address] Performed By: #### 5 8410-2 ####[facility] LABIA [id number] [place] [address] [place] Nucleated RBC (Bld) [#/Vol] 10*3/uL Normal <0.01 [facility] Comment on above: Order Comment: Speci men Type: BLOOD SPECIMENOrdering Facility: [facility] Address: [address] [place] [address] Performed By: #### 5 8410-2 ####[facility] LABIA [id number] [place] [address] [place] Platelet mean volume (Bld) [Entitic vol] 10.4 fL Normal 9.0-12.7 [facility] Comment on above: Order Comment: Speci men Type: BLOOD SPECIMENOrdering Facility: [facility] Address: [address] [place] [address] Performed By: #### 5 8410-2 ####[facility] [id number] [place] [address] [place] Platelets (Bld) [#/Vol] 151 10*3/uL Normal 150-400 [facility] Comment on above: Order Comment: Speci men Type: BLOOD SPECIMENOrdering Facility: [facility] Address: [address] [place] [address] Performed By: #### 5 8410-2 ####[facility] LABIA [id number] [place] [address] [place] RBC (Bld) [#/Vol] 3.15 10*6/uL Low 3.90-5.20 [facility] Comment on above: Order Comment: Speci men Type: BLOOD SPECIMENOrdering Facility: [facility] Address: [address] [place] [address] Performed By: #### 5 8410-2 ####[facility] LABCLIA [id number] [place] [address] [place] WBC (Bld) [#/Vol] 8.30 10*3/uL Normal 3.70-11.00 [facility] Comment on above: Order Comment: Speci men Type: BLOOD SPECIMENOrdering Facility: [facility] Address: [address] [place] [address] Performed By: #### 5 8410-2 ####[facility] LABCLIA [id number] [place] [address] [place] CNDSon 04-16-2024 CNDS Normal [facility] Comprehensive metabolic 2000 panelon 04-16-2024 Albumin [Mass/Vol] 3.0 g/dL Low 3.9-4.9 [facility] Comment on above: Order Comment: Speci men Type: BLOOD SPECIMENOrdering Facility: [facility] Address: [address] [place] [address] Performed By: #### 2 4323-8 ####[facility] LABCLIA [id number] [place] [address] [place] ALP [Catalytic activity/Vol] 64 U/L Normal 34-123 [facility] Comment on above: Order Comment: Speci men Type: BLOOD SPECIMENOrdering Facility: [facility] Address: [address] [place] [address] Performed By: #### 2 4323-8 ####[facility] LABCLIA [id number] [place] [address] [place] ALT [Catalytic activity/Vol] 35 U/L Normal 7-38 [facility] Comment on above: Order Comment: Speci men Type: BLOOD SPECIMENOrdering Facility: [facility] Address: [address] [place] [address] Performed By: #### 2 4323-8 ####[facility] LABCLIA [id number] [place] [address] [place] Anion gap [Moles/Vol] 10 mmol/L Normal 8-15 [facility] Comment on above: Order Comment: Speci men Type: BLOOD SPECIMENOrdering Facility: [facility] Address: [address] [place] [address] Performed By: #### 2 4323-8 ####[facility] LABCLIA [id number] [place] [address] [place] AST [Catalytic activity/Vol] 55 U/L High 13-35 [facility] Comment on above: Order Comment: Speci men Type: BLOOD SPECIMENOrdering Facility: [facility] Address: [address] [place] [address] Performed By: #### 2 4323-8 ####[facility] LABCLIA [id number] [place] [address] [place] Bilirubin [Mass/Vol] 0.7 mg/dL Normal 0.2-1.3 [facility] Comment on above: Order Comment: Speci men Type: BLOOD SPECIMENOrdering Facility: [facility] Address: [address] [place] [address] Performed By: #### 2 4323-8 ####[facility] LABCLIA [id number] [place] [address] [place] Calcium [Mass/Vol] 8.5 mg/dL Normal 8.5-10.2 [facility] Comment on above: Order Comment: Speci men Type: BLOOD SPECIMENOrdering Facility: [facility] Address: [address] [place] [address] Performed By: #### 2 4323-8 ####[facility] LABCLIA [id number] [place] [id number] [place] Chloride [Moles/Vol] 103 mmol/L Normal 98-107 [facility] Comment on above: Order Comment: Speci men Type: BLOOD SPECIMENOrdering Facility: [facility] Address: [address] [place] [address] Performed By: #### 2 4323-8 ####[facility] LABCLIA [id number] [place] [address] [place] CO2 [Moles/Vol] 24 mmol/L Normal 22-30 [facility] Comment on above: Order Comment: Speci men Type: BLOOD SPECIMENOrdering Facility: [facility] Address: [address] [place] [address] Performed By: #### 2 4323-8 ####[facility] LABIA [id number] [address] [place] Creatinine [Mass/Vol] 0.72 mg/dL Normal 0.58-0.96 [facility] Comment on above: Order Comment: Speci men Type: BLOOD SPECIMENOrdering Facility: [facility] Address: [address] [place] [address] Performed By: #### 2 4323-8 ####[facility] LABIA [id number] [address] [place] Creatinine and Glomerular filtration rate.predicted panel (S/P/Bld) 100 mL/min/1.73m??? Normal >=60 [facility] Comment on above: Order Comment: Speci men Type: BLOOD SPECIMENOrdering Facility: [facility] Address: [address] [place] [address] Result Comment: Brandy mated Glomerular Filtration Rate (eGFR) is calculated using the 2020 CKD-EPI creatinine equation. This equation utilizes serum creatinine, sex, and age as parameters. The creatinine assay has traceable calibration to isotope dilution-mass spectrometry. Refer to KDIGO guidelines for clinical interpretation. In patients with unstable renal function, e.g. those with acute kidney injury, the eGFR may not accurately reflect actual GFR. Performed By: #### 2 4323-8 ####[facility] LABCLIA [id number] [place] [address] [place] Glucose [Mass/Vol] 94 mg/dL Normal 74-99 [facility] Comment on above: Order Comment: Speci men Type: BLOOD SPECIMENOrdering Facility: [facility] Address: [address] [place] [address] Result Comment: The [place] Diabetes Association (ADA) provides guidance for cutoff values for fasting glucose and random glucose. The ADA defines fasting as no caloric intake for at least 8 hours. Fasting plasma glucose results between 100 to 125 mg/dL indicate increased risk for diabetes (prediabetes).Fasting plasma glucose results greater than or equal to 126 mg/dL meet the criteria for diagnosis of diabetes. In the absence of unequivocal hyperglycemia, results should be confirmed by repeat testing. In a patient with classic symptoms of hyperglycemia or hyperglycemic crisis, random plasma glucose results greater than or equal to 200 mg/dL meet the criteria for diagnosis of diabetes.Reference: Standards of Medical Care in Diabetes 2016, [place] [employer]. Diabetes Care. 2016.39(Suppl 1). Performed By: #### 2 4323-8 ####[facility] LABCLIA [id number] [place] [address] [place] Potassium [Moles/Vol] 3.9 mmol/L Normal 3.7-5.1 [facility] Comment on above: Order Comment: Speci men Type: BLOOD SPECIMENOrdering Facility: [facility] Address: [address] [place], [place] [address] Performed By: #### 2 4323-8 ####[facility] LABCLIA [id number] [place] [address] [place] Protein [Mass/Vol] 5.8 g/dL Low 6.3-8.0 [facility] Comment on above: Order Comment: Speci men Type: BLOOD SPECIMENOrdering Facility: [facility] Address: [address] [place], [place] [address] Performed By: #### 2 4323-8 ####[facility] LABCLIA [id number] [place] [address] [place] Sodium [Moles/Vol] 137 mmol/L Normal 136-144 [facility] Comment on above: Order Comment: Speci men Type: BLOOD SPECIMENOrdering Facility: [facility] Address: [address] [place] [address] Performed By: #### 2 4323-8 ####[facility] LABCLIA [id number] [place] [address] [place] Urea nitrogen [Mass/Vol] 10 mg/dL Normal 7-21 [facility] Comment on above: Order Comment: Speci men Type: BLOOD SPECIMENOrdering Facility: [facility] Address: [address] [place] [address] Performed By: #### 2 4323-8 ####[facility] [id number] [place] [address] [place] ECG COMPLETEon 04-16-2024 ECG COMPLETE Normal [facility] HCG Preg Ur Qlon 04-16-2024 HCG ( test) Ql (U) Negative Normal Negative [facility] Comment on above: Order Comment: Speci men Type: URINE SPECIMENOrdering Facility: [facility] Address: [address] [place] [address] Result Comment: This test is intended to aid in the early detection of . Very dilute urine samples, as indicated by a low specific gravity, may not contain premium service representative levels of hCG. This test detects intact hCG only. This test does not reliably detect hCG degradation products, including free-beta subunit and beta-core fragment. Therefore, this test may show reduced reactivity in urine after 8 weeks gestation. A number of conditions other than , including trophoblastic disease and certain non-trophoblastic neoplasms cause elevated levels of hCG. As with any assay employing mouse antibodies, the possibility exists for interference by human anti-mouse antibodies (HAMA) in the specimen. The test provides a presumptive diagnosis for . Performed By: #### 2 106-3 ####[facility] LABIA [id number] [place] [address] [place] THERAPY NTon 04-16-2024 THERAPY NT Normal [facility] XR CHEST 2V FRONTAL/LATon XR CHEST 2V FRONTAL/LAT Normal [facility] ARTERIAL BLOOD GASESon 04-15 Base excess Calc (Bld) [Moles/Vol] 1 mmol/L Normal 0-2 [facility] Comment on above: Order Comment: Speci men Type: ARTERIAL BLOOD SPECIMENOrdering Facility: [facility] Address: [address] [place] [address] Performed By: #### A LLBG ####[facility] LABIA [id number] [place] [address] [place] Body temperature 98.6 [degF] Normal [facility] Comment on above: Order Comment: Speci men Type: ARTERIAL BLOOD SPECIMENOrdering Facility: [facility] Address: [address] [place] [address] Performed By: #### A LLBG ####[facility] LABIA [id number] [place] [address] [place] Calcium.ionized (Bld) [Mass/Vol] 1.27 mmol/L Normal 1.08-1.30 [facility] Comment on above: Order Comment: Speci men Type: ARTERIAL BLOOD SPECIMENOrdering Facility: [facility] Address: [address] [place] [address] Performed By: #### A LLBG ####[facility] LABIA [id number] [place] [address] [place] Calcium.ionized adjusted to pH 7.4 (BldA) [Moles/Vol] 1.26 mmol/L Normal 1.08-1.30 [facility] Comment on above: Order Comment: Speci men Type: ARTERIAL BLOOD SPECIMENOrdering Facility: [facility] Address: [address] [place] [address] Performed By: #### A LLBG ####[facility] LABIA [id number] [place] [address] [place] Carboxyhemoglobin (BldA) [Mass fraction] 1.7 % Normal 0.0-2.0 [facility] Comment on above: Order Comment: Speci men Type: ARTERIAL BLOOD SPECIMENOrdering Facility: [facility] Address: [address] [place] [address] Result Comment: Carb oxyhemoglobin Reference Range for Smokers: 2.0-8.0% Performed By: #### A LLBG ####[facility] LABCLIA [id number] [place] [address] [place] CO2 (Bld) [Partial pressure] 43 mm Hg Normal 36-46 [facility] Comment on above: Order Comment: Speci men Type: ARTERIAL BLOOD SPECIMENOrdering Facility: [facility] Address: [address] [place] [address] Performed By: #### A LLBG ####[facility] LABCLIA [id number] [place] [address] [place] Glucose [Mass/Vol] 134 mg/dL High 60-105 [facility] Comment on above: Order Comment: Speci men Type: ARTERIAL BLOOD SPECIMENOrdering Facility: [facility] Address: [address] [place] [address] Performed By: #### A LLBG ####[facility] LABCLIA [id number] [place] [address] [place] HCO3 (Bld) [Moles/Vol] 25 mmol/L Normal 22-26 [facility] Comment on above: Order Comment: Speci men Type: ARTERIAL BLOOD SPECIMENOrdering Facility: [facility] Address: [address] [place] [address] Performed By: #### A LLBG ####[facility] LABCLIA [id number] [place] [address] [place] Hematocrit (Bld) [Volume fraction] 37.0 % Normal 36.0-46.0 [facility] Comment on above: Order Comment: Speci men Type: ARTERIAL BLOOD SPECIMENOrdering Facility: [facility] Address: [address] [place] [address] Performed By: #### A LLBG ####[facility] LABCLIA [id number] [place] [address] [place] Hemoglobin (Bld) [Mass/Vol] 12.0 g/dL Normal 11.5-15.5 [facility] Comment on above: Order Comment: Speci men Type: ARTERIAL BLOOD SPECIMENOrdering Facility: [facility] Address: [address] [place] [address] Performed By: #### A LLBG ####[facility] LABIA [id number] [place] [address] [place] Lactate [Moles/Vol] 1.2 mmol/L Normal 0.5-2.2 [facility] Comment on above: Order Comment: Speci men Type: ARTERIAL BLOOD SPECIMENOrdering Facility: [facility] Address: [address] [place] [address] Performed By: #### A LLBG ####[facility] LABIA [id number] [place] [address] [place] Methemoglobin (Bld) [Mass fraction] 0.9 % Normal 0.0-1.5 [facility] Comment on above: Order Comment: Speci men Type: ARTERIAL BLOOD SPECIMENOrdering Facility: [facility] Address: [address] [place] [address] Performed By: #### A LLBG ####[facility] LABIA [id number] [place] [address] [place] O2 THERAPY [place] = Nasal Cannula Normal [facility] Comment on above: Order Comment: Speci men Type: ARTERIAL BLOOD SPECIMENOrdering Facility: [facility] Address: [address] [place] [address] Performed By: #### A LLBG ####[facility] LABIA [id number] [place] [address] [place] Oxygen (Bld) [Partial pressure] 98 mm Hg High 85-95 [facility] Comment on above: Order Comment: Speci men Type: ARTERIAL BLOOD SPECIMENOrdering Facility: [facility] Address: [address] [place] [address] Performed By: #### A LLBG ####[facility] LABCLIA [id number] [place] [address] [place] Oxyhemoglobin (BldA) [Mass fraction] 96 % Normal 95-98 [facility] Comment on above: Order Comment: Speci men Type: ARTERIAL BLOOD SPECIMENOrdering Facility: [facility] Address: [address] [place] [address] Performed By: #### A LLBG ####[facility] LABCLIA [id number] [place] [address] [place] pH (Bld) 7.39 [pH] Normal 7.35-7.45 [facility] Comment on above: Order Comment: Speci men Type: ARTERIAL BLOOD SPECIMENOrdering Facility: [facility] Address: [address] [place] [address] Performed By: #### A LLBG ####[facility] LABCLIA [id number] [place] [address] [place] Potassium [Moles/Vol] 3.9 mmol/L Normal 3.5-5.0 [facility] Comment on above: Order Comment: Speci men Type: ARTERIAL BLOOD SPECIMENOrdering Facility: [facility] Address: [address] [place] [address] Performed By: #### A LLBG ####[facility] LABCLIA [id number] [place] [address] [place] Sodium [Moles/Vol] 135 mmol/L Low 136-144 [facility] Comment on above: Order Comment: Speci men Type: ARTERIAL BLOOD SPECIMENOrdering Facility: [facility] Address: [address] [place] [address] Performed By: #### A LLBG ####[facility] LABCLIA [id number] [place] [address] [place] Base excess Calc (Bld) [Moles/Vol] 0 mmol/L Normal 0-2 [facility] Comment on above: Order Comment: Speci men Type: ARTERIAL BLOOD SPECIMENOrdering Facility: [facility] Address: [address] [place] [address] Performed By: #### A LLBG ####[facility] LABIA [id number] [place] [address] [place] Body temperature 98.6 [degF] Normal [facility] Comment on above: Order Comment: Speci men Type: ARTERIAL BLOOD SPECIMENOrdering Facility: [facility] Address: [address] [place] [address] Performed By: #### A LLBG ####[facility] LABIA [id number] [place] [address] [place] Calcium.ionized (Bld) [Mass/Vol] 1.15 mmol/L Normal 1.08-1.30 [facility] Comment on above: Order Comment: Speci men Type: ARTERIAL BLOOD SPECIMENOrdering Facility: [facility] Address: [address] [place] [address] Performed By: #### A LLBG ####[facility] LABIA [id number] [place] [address] [place] Calcium.ionized adjusted to pH 7.4 (BldA) [Moles/Vol] 1.12 mmol/L Normal 1.08-1.30 [facility] Comment on above: Order Comment: Speci men Type: ARTERIAL BLOOD SPECIMENOrdering Facility: [facility] Address: [address] [place] [address] Performed By: #### A LLBG ####[facility] LABIA [id number] [place] [id number] [place] Carboxyhemoglobin (BldA) [Mass fraction] 1.3 % Normal 0.0-2.0 [facility] Comment on above: Order Comment: Speci men Type: ARTERIAL BLOOD SPECIMENOrdering Facility: [facility] Address: [address] [place] [address] Result Comment: Carb oxyhemoglobin Reference Range for Smokers: 2.0-8.0% Performed By: #### A LLBG ####[facility] LABCLIA [id number] [place] [address] [place] CO2 (Bld) [Partial pressure] 45 mm Hg Normal 36-46 [facility] Comment on above: Order Comment: Speci men Type: ARTERIAL BLOOD SPECIMENOrdering Facility: [facility] Address: [address] [place] [address] Performed By: #### A LLBG ####[facility] LABCLIA [id number] [place] [address] [place] Glucose [Mass/Vol] 138 mg/dL High 60-105 [facility] Comment on above: Order Comment: Speci men Type: ARTERIAL BLOOD SPECIMENOrdering Facility: [facility] Address: [address] [place] [address] Performed By: #### A LLBG ####[facility] LABCLIA [id number] [place] [address] [place] HCO3 (Bld) [Moles/Vol] 25 mmol/L Normal 22-26 [facility] Comment on above: Order Comment: Speci men Type: ARTERIAL BLOOD SPECIMENOrdering Facility: [facility] Address: [address] [place] [address] Performed By: #### A LLBG ####[facility] LABCLIA [id number] [place] [address] [place] Hematocrit (Bld) [Volume fraction] 36.1 % Normal 36.0-46.0 [facility] Comment on above: Order Comment: Speci men Type: ARTERIAL BLOOD SPECIMENOrdering Facility: [facility] Address: [address] [place] [address] Performed By: #### A LLBG ####[facility] LABCLIA [id number] [place] [address] [place] Hemoglobin (Bld) [Mass/Vol] 11.7 g/dL Normal 11.5-15.5 [facility] Comment on above: Order Comment: Speci men Type: ARTERIAL BLOOD SPECIMENOrdering Facility: [facility] Address: [address] [place] [address] Performed By: #### A LLBG ####[facility] LABCLIA [id number] [place] [address] [place] Lactate [Moles/Vol] 0.9 mmol/L Normal 0.5-2.2 [facility] Comment on above: Order Comment: Speci men Type: ARTERIAL BLOOD SPECIMENOrdering Facility: [facility] Address: [address] [place] [address] Performed By: #### A LLBG ####[facility] LABCLIA [id number] [place] [address] [place] LITERS 3 Liters/min Normal [facility] Comment on above: Order Comment: Speci men Type: ARTERIAL BLOOD SPECIMENOrdering Facility: [facility] Address: [address] [place] [address] Performed By: #### A LLBG ####[facility] LABCLIA [id number] [place] [address] [place] Methemoglobin (Bld) [Mass fraction] 1.3 % Normal 0.0-1.5 [facility] Comment on above: Order Comment: Speci men Type: ARTERIAL BLOOD SPECIMENOrdering Facility: [facility] Address: [address] [place] [address] Performed By: #### A LLBG ####[facility] LABCLIA [id number] [place] [address] [place] O2 THERAPY [place] = Nasal Cannula Normal [facility] Comment on above: Order Comment: Speci men Type: ARTERIAL BLOOD SPECIMENOrdering Facility: [facility] Address: [address] [place] [address] Performed By: #### A LLBG ####[facility] LABCLIA [id number] [place] [address] [place] Oxygen (Bld) [Partial pressure] 135 mm Hg High 85-95 [facility] Comment on above: Order Comment: Speci men Type: ARTERIAL BLOOD SPECIMENOrdering Facility: [facility] Address: [address] [place] [address] Performed By: #### A LLBG ####[facility] LABCLIA [id number] [place] [address] [place] Oxyhemoglobin (BldA) [Mass fraction] 96 % Normal 95-98 [facility] Comment on above: Order Comment: Speci men Type: ARTERIAL BLOOD SPECIMENOrdering Facility: [facility] Address: [address] [place] [address] Performed By: #### A LLBG ####[facility] LABCLIA [id number] [place] [address] [place] pH (Bld) 7.36 [pH] Normal 7.35-7.45 [facility] Comment on above: Order Comment: Speci men Type: ARTERIAL BLOOD SPECIMENOrdering Facility: [facility] Address: [address] [place] [address] Performed By: #### A LLBG ####[facility] LABCLIA [id number] [place] [address] [place] Potassium [Moles/Vol] 3.6 mmol/L Normal 3.5-5.0 [facility] Comment on above: Order Comment: Speci men Type: ARTERIAL BLOOD SPECIMENOrdering Facility: [facility] Address: [address] [place] [address] Performed By: #### A LLBG ####[facility] LABCLIA [id number] [place] [address] [place] Sodium [Moles/Vol] 137 mmol/L Normal 136-144 [facility] Comment on above: Order Comment: Speci men Type: ARTERIAL BLOOD SPECIMENOrdering Facility: [facility] Address: [address] [place], [place] [id number] Performed By: #### A LLBG ####[facility] LABCLIA [id number] [place] [address] [place] CASE MGT INIT ASSESon 2023 CASE MGT INIT ASSES Normal [facility] [id number] 04-15-2024 ECG01 Normal [facility] ECG01 Normal [facility] THERAPY NTon 04-15-2024 THERAPY NT Normal [facility] XR CHEST 1V FRONTAL PORTon 0 04-15-2024 XR CHEST 1V FRONTAL PORT Normal [facility] ANES POSTPROC EVALon 024 ANES POSTPROC EVAL Normal [facility] ANES PRE-OPon 04-14-2024 ANES PRE-OP Normal [facility] ARTERIAL BLOOD GASESon 04-14 Base deficit (BldA) [Moles/Vol] -1 mmol/L Normal -2-0 [facility] Comment on above: Order Comment: Speci men Type: ARTERIAL BLOOD SPECIMENOrdering Facility: [facility] Address: [address] [place] [address] Performed By: #### A LLBG ####[facility] LABIA [id number] [place] [address] [place] Body temperature 98.6 [degF] Normal [facility] Comment on above: Order Comment: Speci men Type: ARTERIAL BLOOD SPECIMENOrdering Facility: [facility] Address: [address] [place] [address] Performed By: #### A LLBG ####[facility] LABIA [id number] [place] [address] [place] Calcium.ionized (Bld) [Mass/Vol] 1.17 mmol/L Normal 1.08-1.30 [facility] Comment on above: Order Comment: Speci men Type: ARTERIAL BLOOD SPECIMENOrdering Facility: [facility] Address: [address] [place] [address] Performed By: #### A LLBG ####[facility] LABIA [id number] [place] [address] [place] Calcium.ionized adjusted to pH 7.4 (BldA) [Moles/Vol] 1.14 mmol/L Normal 1.08-1.30 [facility] Comment on above: Order Comment: Speci men Type: ARTERIAL BLOOD SPECIMENOrdering Facility: [facility] Address: [address] [place] [address] Performed By: #### A LLBG ####[facility] [id number] [place] [address] [place] Carboxyhemoglobin (BldA) [Mass fraction] 1.6 % Normal 0.0-2.0 [facility] Comment on above: Order Comment: Speci men Type: ARTERIAL BLOOD SPECIMENOrdering Facility: [facility] Address: [address] [place] [address] Result Comment: Carb oxyhemoglobin Reference Range for Smokers: 2.0-8.0% Performed By: #### A LLBG ####[facility] LABIA [id number] [place] [address] [place] CO2 (Bld) [Partial pressure] 44 mm Hg Normal 36-46 [facility] Comment on above: Order Comment: Speci men Type: ARTERIAL BLOOD SPECIMENOrdering Facility: [facility] Address: [address] [place] [address] Performed By: #### A LLBG ####[facility] LABIA [id number] [place] [address] [place] Glucose [Mass/Vol] 127 mg/dL High 60-105 [facility] Comment on above: Order Comment: Speci men Type: ARTERIAL BLOOD SPECIMENOrdering Facility: [facility] Address: [address] [place] [address] Performed By: #### A LLBG ####[facility] LABCLIA [id number] [place] [address] [place] HCO3 (Bld) [Moles/Vol] 24 mmol/L Normal 22-26 [facility] Comment on above: Order Comment: Speci men Type: ARTERIAL BLOOD SPECIMENOrdering Facility: [facility] Address: [address] [place] [address] Performed By: #### A LLBG ####[facility] LABCLIA [id number] [place] [address] [place] Hematocrit (Bld) [Volume fraction] 35.4 % Low 36.0-46.0 [facility] Comment on above: Order Comment: Speci men Type: ARTERIAL BLOOD SPECIMENOrdering Facility: [facility] Address: [address] [place] [address] Performed By: #### A LLBG ####[facility] LABCLIA [id number] [place] [address] [place] Hemoglobin (Bld) [Mass/Vol] 11.5 g/dL Normal 11.5-15.5 [facility] Comment on above: Order Comment: Speci men Type: ARTERIAL BLOOD SPECIMENOrdering Facility: [facility] Address: [address] [place] [address] Performed By: #### A LLBG ####[facility] LABCLIA [id number] [place] [address] [place] Lactate [Moles/Vol] 0.9 mmol/L Normal 0.5-2.2 [facility] Comment on above: Order Comment: Speci men Type: ARTERIAL BLOOD SPECIMENOrdering Facility: [facility] Address: [address] [place] [id number] Performed By: #### A LLBG ####[facility] LABCLIA [id number] [place] [id number] [place] LITERS 3 Liters/min Normal [facility] Comment on above: Order Comment: Speci men Type: ARTERIAL BLOOD SPECIMENOrdering Facility: [facility] Address: [address] [place] [address] Performed By: #### A LLBG ####[facility] LABCLIA [id number] [place] [address] [place] Methemoglobin (Bld) [Mass fraction] 0.8 % Normal 0.0-1.5 [facility] Comment on above: Order Comment: Speci men Type: ARTERIAL BLOOD SPECIMENOrdering Facility: [facility] Address: [address] [place] [address] Performed By: #### A LLBG ####[facility] LABCLIA [id number] [place] [address] [place] O2 THERAPY [place] = Nasal Cannula Normal [facility] Comment on above: Order Comment: Speci men Type: ARTERIAL BLOOD SPECIMENOrdering Facility: [facility] Address: [address] [place] [address] Performed By: #### A LLBG ####[facility] LABCLIA [id number] [place] [address] [place] Oxygen (Bld) [Partial pressure] 86 mm Hg Normal 85-95 [facility] Comment on above: Order Comment: Speci men Type: ARTERIAL BLOOD SPECIMENOrdering Facility: [facility] Address: [address] [place] [address] Performed By: #### A LLBG ####[facility] LABCLIA [id number] [place] [address] [place] Oxyhemoglobin (BldA) [Mass fraction] 94 % Low 95-98 [facility] Comment on above: Order Comment: Speci men Type: ARTERIAL BLOOD SPECIMENOrdering Facility: [facility] Address: [address] [place] [address] Performed By: #### A LLBG ####[facility] LABCLIA [id number] [place] [address] [place] pH (Bld) 7.36 [pH] Normal 7.35-7.45 [facility] Comment on above: Order Comment: Speci men Type: ARTERIAL BLOOD SPECIMENOrdering Facility: [facility] Address: [address] [place] [address] Performed By: #### A LLBG ####[facility] LABCLIA [id number] [place] [address] [place] Potassium [Moles/Vol] 4.0 mmol/L Normal 3.5-5.0 [facility] Comment on above: Order Comment: Speci men Type: ARTERIAL BLOOD SPECIMENOrdering Facility: [facility] Address: [address] [place] [address] Performed By: #### A LLBG ####[facility] LABCLIA [id number] [place] [address] [place] Sodium [Moles/Vol] 138 mmol/L Normal 136-144 [facility] Comment on above: Order Comment: Speci men Type: ARTERIAL BLOOD SPECIMENOrdering Facility: [facility] Address: [address] [place] [address] Performed By: #### A LLBG ####[facility] LABCLIA [id number] [place] [address] [place] Base deficit (BldA) [Moles/Vol] -2 mmol/L Normal -2-0 [facility] Comment on above: Order Comment: Speci men Type: ARTERIAL BLOOD SPECIMENOrdering Facility: [facility] Address: [address] [place] [address] Performed By: #### A LLBG ####[facility] LABCLIA [id number] [place] [address] [place] Body temperature 97.7 [degF] Normal [facility] Comment on above: Order Comment: Speci men Type: ARTERIAL BLOOD SPECIMENOrdering Facility: [facility] Address: [address] [place] [address] Performed By: #### A LLBG ####[facility] LABCLIA [id number] [place] [address] [place] Calcium.ionized (Bld) [Mass/Vol] 1.16 mmol/L Normal 1.08-1.30 [facility] Comment on above: Order Comment: Speci men Type: ARTERIAL BLOOD SPECIMENOrdering Facility: [facility] Address: [address] [place] [address] Performed By: #### A LLBG ####[facility] LABIA [id number] [place] [address] [place] Calcium.ionized adjusted to pH 7.4 (BldA) [Moles/Vol] 1.14 mmol/L Normal 1.08-1.30 [facility] Comment on above: Order Comment: Speci men Type: ARTERIAL BLOOD SPECIMENOrdering Facility: [facility] Address: [address] [place] [address] Performed By: #### A LLBG ####[facility] LABIA [id number] [place] [address] [place] Carboxyhemoglobin (BldA) [Mass fraction] 1.2 % Normal 0.0-2.0 [facility] Comment on above: Order Comment: Speci men Type: ARTERIAL BLOOD SPECIMENOrdering Facility: [facility] Address: [address] [place] [address] Result Comment: Carb oxyhemoglobin Reference Range for Smokers: 2.0-8.0% Performed By: #### A LLBG ####[facility] LABCLIA [id number] [place] [address] [place] CO2 (Bld) [Partial pressure] 42 mm Hg Normal 36-46 [facility] Comment on above: Order Comment: Speci men Type: ARTERIAL BLOOD SPECIMENOrdering Facility: [facility] Address: [address] [place] [address] Performed By: #### A LLBG ####[facility] LABCLIA [id number] [place] [address] [place] CO2 adjusted to patient's actual temperature (Bld) [Partial pressure] 41 mmHg Normal 36-46 [facility] Comment on above: Order Comment: Speci men Type: ARTERIAL BLOOD SPECIMENOrdering Facility: [facility] Address: [address] [place] [address] Performed By: #### A LLBG ####[facility] LABCLIA [id number] [place] [address] [place] Glucose [Mass/Vol] 159 mg/dL High 60-105 [facility] Comment on above: Order Comment: Speci men Type: ARTERIAL BLOOD SPECIMENOrdering Facility: [facility] Address: [address] [place] [address] Performed By: #### A LLBG ####[facility] LABCLIA [id number] [place] [address] [place] HCO3 (Bld) [Moles/Vol] 23 mmol/L Normal 22-26 [facility] Comment on above: Order Comment: Speci men Type: ARTERIAL BLOOD SPECIMENOrdering Facility: [facility] Address: [address] [place] [address] Performed By: #### A LLBG ####[facility] LABCLIA [id number] [place] [address] [place] Hematocrit (Bld) [Volume fraction] 38.6 % Normal 36.0-46.0 [facility] Comment on above: Order Comment: Speci men Type: ARTERIAL BLOOD SPECIMENOrdering Facility: [facility] Address: [address] [place] [address] Performed By: #### A LLBG ####[facility] LABCLIA [id number] [place] [address] [place] Hemoglobin (Bld) [Mass/Vol] 12.6 g/dL Normal 11.5-15.5 [facility] Comment on above: Order Comment: Speci men Type: ARTERIAL BLOOD SPECIMENOrdering Facility: [facility] Address: [address] [place] [address] Performed By: #### A LLBG ####[facility] LABCLIA [id number] [place] [address] [place] Lactate [Moles/Vol] 0.7 mmol/L Normal 0.5-2.2 [facility] Comment on above: Order Comment: Speci men Type: ARTERIAL BLOOD SPECIMENOrdering Facility: [facility] Address: [address] [place] [address] Performed By: #### A LLBG ####[facility] LABCLIA [id number] [place] [address] [place] LITERS 4 Liters/min Normal [facility] Comment on above: Order Comment: Speci men Type: ARTERIAL BLOOD SPECIMENOrdering Facility: [facility] Address: [address] [place] [address] Performed By: #### A LLBG ####[facility] LABCLIA [id number] [place] [address] [place] Methemoglobin (Bld) [Mass fraction] 0.7 % Normal 0.0-1.5 [facility] Comment on above: Order Comment: Speci men Type: ARTERIAL BLOOD SPECIMENOrdering Facility: [facility] Address: [address] [place] [address] Performed By: #### A LLBG ####[facility] LABCLIA [id number] [place] [id number] [place] O2 THERAPY [place] = Nasal Cannula Normal [facility] Comment on above: Order Comment: Speci men Type: ARTERIAL BLOOD SPECIMENOrdering Facility: [facility] Address: [address] [place] [id number] Performed By: #### A LLBG ####[facility] LABCLIA [id number] [place] [address] [place] Oxygen (Bld) [Partial pressure] 112 mm Hg High 85-95 [facility] Comment on above: Order Comment: Speci men Type: ARTERIAL BLOOD SPECIMENOrdering Facility: [facility] Address: [address] [place] [address] Performed By: #### A LLBG ####[facility] LABCLIA [id number] [place] [address] [place] Oxygen adjusted to patient's actual temperature (Bld) [Partial pressure] 109 mmHg High 85-95 [facility] Comment on above: Order Comment: Speci men Type: ARTERIAL BLOOD SPECIMENOrdering Facility: [facility] Address: [address] [place] [address] Performed By: #### A LLBG ####[facility] LABCLIA [id number] [place] [address] [place] Oxyhemoglobin (BldA) [Mass fraction] 96 % Normal 95-98 [facility] Comment on above: Order Comment: Speci men Type: ARTERIAL BLOOD SPECIMENOrdering Facility: [facility] Address: [address] [place] [address] Performed By: #### A LLBG ####[facility] LABCLIA [id number] [place] [address] [place] pH (Bld) 7.36 [pH] Normal 7.35-7.45 [facility] Comment on above: Order Comment: Speci men Type: ARTERIAL BLOOD SPECIMENOrdering Facility: [facility] Address: [address] [place] [address] Performed By: #### A LLBG ####[facility] LABCLIA [id number] [place] [address] [place] pH adjusted to patient's actual temperature (Bld) 7.37 Normal 7.35-7.45 [facility] Comment on above: Order Comment: Speci men Type: ARTERIAL BLOOD SPECIMENOrdering Facility: [facility] Address: [address] [place] [address] Performed By: #### A LLBG ####[facility] LABCLIA [id number] [place] [address] [place] Potassium [Moles/Vol] 4.2 mmol/L Normal 3.5-5.0 [facility] Comment on above: Order Comment: Speci men Type: ARTERIAL BLOOD SPECIMENOrdering Facility: [facility] Address: [address] [place] [address] Performed By: #### A LLBG ####[facility] LABCLIA [id number] [place] [address] [place] Sodium [Moles/Vol] 138 mmol/L Normal 136-144 [facility] Comment on above: Order Comment: Speci men Type: ARTERIAL BLOOD SPECIMENOrdering Facility: [facility] Address: [address] [place] [address] Performed By: #### A LLBG ####[facility] LABCLIA [id number] [place] [address] [place] Base deficit (BldA) [Moles/Vol] -5 mmol/L Low -2-0 [facility] Comment on above: Order Comment: Speci men Type: ARTERIAL BLOOD SPECIMENOrdering Facility: [facility] Address: [address] [place] [address] Performed By: #### A LLBG ####[facility] LABCLIA [id number] [place] [address] [place] Body temperature 98.6 [degF] Normal [facility] Comment on above: Order Comment: Speci men Type: ARTERIAL BLOOD SPECIMENOrdering Facility: [facility] Address: [address] [place] [address] Performed By: #### A LLBG ####[facility] LABCLIA [id number] [place] [address] [place] Calcium.ionized (Bld) [Mass/Vol] 1.16 mmol/L Normal 1.08-1.30 [facility] Comment on above: Order Comment: Speci men Type: ARTERIAL BLOOD SPECIMENOrdering Facility: [facility] Address: [address] [place] [address] Performed By: #### A LLBG ####[facility] LABCLIA [id number] [place] [address] [place] Calcium.ionized adjusted to pH 7.4 (BldA) [Moles/Vol] 1.10 mmol/L Normal 1.08-1.30 [facility] Comment on above: Order Comment: Speci men Type: ARTERIAL BLOOD SPECIMENOrdering Facility: [facility] Address: [address] [place] [address] Performed By: #### A LLBG ####[facility] LABCLIA [id number] [place] [address] [place] Carboxyhemoglobin (BldA) [Mass fraction] 1.4 % Normal 0.0-2.0 [facility] Comment on above: Order Comment: Speci men Type: ARTERIAL BLOOD SPECIMENOrdering Facility: [facility] Address: [address] [place] [address] Result Comment: Carb oxyhemoglobin Reference Range for Smokers: 2.0-8.0% Performed By: #### A LLBG ####[facility] LABCLIA [id number] [place] [address] [place] CO2 (Bld) [Partial pressure] 44 mm Hg Normal 36-46 [facility] Comment on above: Order Comment: Speci men Type: ARTERIAL BLOOD SPECIMENOrdering Facility: [facility] Address: [address] [place] [address] Performed By: #### A LLBG ####[facility] LABCLIA [id number] [place] [address] [place] Glucose [Mass/Vol] 160 mg/dL High 60-105 [facility] Comment on above: Order Comment: Speci men Type: ARTERIAL BLOOD SPECIMENOrdering Facility: [facility] Address: [address] [place] [address] Performed By: #### A LLBG ####[facility] LABCLIA [id number] [place] [address] [place] HCO3 (Bld) [Moles/Vol] 21 mmol/L Low 22-26 [facility] Comment on above: Order Comment: Speci men Type: ARTERIAL BLOOD SPECIMENOrdering Facility: [facility] Address: [address] [place] [address] Performed By: #### A LLBG ####[facility] LABCLIA [id number] [place] [address] [place] Hematocrit (Bld) [Volume fraction] 38.4 % Normal 36.0-46.0 [facility] Comment on above: Order Comment: Speci men Type: ARTERIAL BLOOD SPECIMENOrdering Facility: [facility] Address: [address] [place] [address] Performed By: #### A LLBG ####[facility] LABCLIA [id number] [place] [address] [place] Hemoglobin (Bld) [Mass/Vol] 12.5 g/dL Normal 11.5-15.5 [facility] Comment on above: Order Comment: Speci men Type: ARTERIAL BLOOD SPECIMENOrdering Facility: [facility] Address: [address] [place] [address] Performed By: #### A LLBG ####[facility] LABCLIA [id number] [place] [address] [place] Lactate [Moles/Vol] 1.0 mmol/L Normal 0.5-2.2 [facility] Comment on above: Order Comment: Speci men Type: ARTERIAL BLOOD SPECIMENOrdering Facility: [facility] Address: [address] [place] [address] Performed By: #### A LLBG ####[facility] LABCLIA [id number] [place] [address] [place] LITERS 4 Liters/min Normal [facility] Comment on above: Order Comment: Speci men Type: ARTERIAL BLOOD SPECIMENOrdering Facility: [facility] Address: [address] [place] [address] Performed By: #### A LLBG ####[facility] LABIA [id number] [place] [address] [place] Methemoglobin (Bld) [Mass fraction] 1.8 % High 0.0-1.5 [facility] Comment on above: Order Comment: Speci men Type: ARTERIAL BLOOD SPECIMENOrdering Facility: [facility] Address: [address] [place] [address] Performed By: #### A LLBG ####[facility] LABIA [id number] [place] [address] [place] O2 THERAPY [place] = Nasal Cannula Normal [facility] Comment on above: Order Comment: Speci men Type: ARTERIAL BLOOD SPECIMENOrdering Facility: [facility] Address: [address] [place], [place] [id number] Performed By: #### A LLBG ####[facility] LABIA [id number] [place] [address] [place] Oxygen (Bld) [Partial pressure] 105 mm Hg High 85-95 [facility] Comment on above: Order Comment: Speci men Type: ARTERIAL BLOOD SPECIMENOrdering Facility: [facility] Address: [address] [place] [address] Performed By: #### A LLBG ####[facility] LABIA [id number] [place] [address] [place] Oxyhemoglobin (BldA) [Mass fraction] 95 % Normal 95-98 [facility] Comment on above: Order Comment: Speci men Type: ARTERIAL BLOOD SPECIMENOrdering Facility: [facility] Address: [address] [place] [address] Performed By: #### A LLBG ####[facility] [id number] [place] [address] [place] pH (Bld) 7.31 [pH] Low 7.35-7.45 [facility] Comment on above: Order Comment: Speci men Type: ARTERIAL BLOOD SPECIMENOrdering Facility: [facility] Address: [address] [place] [address] Performed By: #### A LLBG ####[facility] LABIA [id number] [place] [address] [place] Potassium [Moles/Vol] 3.9 mmol/L Normal 3.5-5.0 [facility] Comment on above: Order Comment: Speci men Type: ARTERIAL BLOOD SPECIMENOrdering Facility: [facility] Address: [address] [place] [address] Performed By: #### A LLBG ####[facility] LABIA [id number] [place] [address] [place] Sodium [Moles/Vol] 139 mmol/L Normal 136-144 [facility] Comment on above: Order Comment: Speci men Type: ARTERIAL BLOOD SPECIMENOrdering Facility: [facility] Address: [address] [place] [address] Performed By: #### A LLBG ####[facility] LABIA [id number] [place] [address] [place] Base deficit (BldA) [Moles/Vol] -2 mmol/L Normal -2-0 [facility] Comment on above: Order Comment: Speci men Type: ARTERIAL BLOOD SPECIMENOrdering Facility: [facility] Address: [address] [place] [address] Performed By: #### A LLBG ####[facility] LABIA [id number] [place] [address] [place] Body temperature 98.6 [degF] Normal [facility] Comment on above: Order Comment: Speci men Type: ARTERIAL BLOOD SPECIMENOrdering Facility: [facility] Address: [address] [place] [address] Performed By: #### A LLBG ####[facility] LABCLIA [id number] [place] [address] [place] Calcium.ionized (Bld) [Mass/Vol] 1.18 mmol/L Normal 1.08-1.30 [facility] Comment on above: Order Comment: Speci men Type: ARTERIAL BLOOD SPECIMENOrdering Facility: [facility] Address: [address] [place] [address] Performed By: #### A LLBG ####[facility] LABIA [id number] [place] [address] [place] Calcium.ionized adjusted to pH 7.4 (BldA) [Moles/Vol] 1.13 mmol/L Normal 1.08-1.30 [facility] Comment on above: Order Comment: Speci men Type: ARTERIAL BLOOD SPECIMENOrdering Facility: [facility] Address: [address] [place] [address] Performed By: #### A LLBG ####[facility] LABCLIA [id number] [place] [address] [place] Carboxyhemoglobin (BldA) [Mass fraction] 1.8 % Normal 0.0-2.0 [facility] Comment on above: Order Comment: Speci men Type: ARTERIAL BLOOD SPECIMENOrdering Facility: [facility] Address: [address] [place] [address] Result Comment: Carb oxyhemoglobin Reference Range for Smokers: 2.0-8.0% Performed By: #### A LLBG ####[facility] LABCLIA [id number] [place] [address] [place] CO2 (Bld) [Partial pressure] 48 mm Hg High 36-46 [facility] Comment on above: Order Comment: Speci men Type: ARTERIAL BLOOD SPECIMENOrdering Facility: [facility] Address: [address] [place] [address] Performed By: #### A LLBG ####[facility] LABCLIA [id number] [place] [address] [place] Glucose [Mass/Vol] 85 mg/dL Normal 60-105 [facility] Comment on above: Order Comment: Speci men Type: ARTERIAL BLOOD SPECIMENOrdering Facility: [facility] Address: [address] [place] [address] Performed By: #### A LLBG ####[facility] LABCLIA [id number] [place] [address] [place] HCO3 (Bld) [Moles/Vol] 24 mmol/L Normal 22-26 [facility] Comment on above: Order Comment: Speci men Type: ARTERIAL BLOOD SPECIMENOrdering Facility: [facility] Address: [address] [place] [address] Performed By: #### A LLBG ####[facility] LABCLIA [id number] [place] [address] [place] Hematocrit (Bld) [Volume fraction] 36.2 % Normal 36.0-46.0 [facility] Comment on above: Order Comment: Speci men Type: ARTERIAL BLOOD SPECIMENOrdering Facility: [facility] Address: [address] [place] [address] Performed By: #### A LLBG ####[facility] LABCLIA [id number] [place] [address] [place] Hemoglobin (Bld) [Mass/Vol] 11.8 g/dL Normal 11.5-15.5 [facility] Comment on above: Order Comment: Speci men Type: ARTERIAL BLOOD SPECIMENOrdering Facility: [facility] Address: [address] [place] [address] Performed By: #### A LLBG ####[facility] LABCLIA [id number] [place] [address] [place] Lactate [Moles/Vol] 2.0 mmol/L Normal 0.5-2.2 [facility] Comment on above: Order Comment: Speci men Type: ARTERIAL BLOOD SPECIMENOrdering Facility: [facility] Address: [address] [place] [address] Performed By: #### A LLBG ####[facility] LABIA [id number] [place] [address] [place] Methemoglobin (Bld) [Mass fraction] 1.3 % Normal 0.0-1.5 [facility] Comment on above: Order Comment: Speci men Type: ARTERIAL BLOOD SPECIMENOrdering Facility: [facility] Address: [address] [place] [address] Performed By: #### A LLBG ####[facility] LABIA [id number] [place] [address] [place] O2 THERAPY VENT=Ventilator Normal [facility] Comment on above: Order Comment: Speci men Type: ARTERIAL BLOOD SPECIMENOrdering Facility: [facility] Address: [address] [place] [address] Performed By: #### A LLBG ####[facility] LABIA [id number] [place] [address] [place] Oxygen (Bld) [Partial pressure] 99 mm Hg High 85-95 [facility] Comment on above: Order Comment: Speci men Type: ARTERIAL BLOOD SPECIMENOrdering Facility: [facility] Address: [address] [place] [address] Performed By: #### A LLBG ####[facility] LABCLIA [id number] [place] [address] [place] Oxyhemoglobin (BldA) [Mass fraction] 94 % Low 95-98 [facility] Comment on above: Order Comment: Speci men Type: ARTERIAL BLOOD SPECIMENOrdering Facility: [facility] Address: [address] [place] [address] Performed By: #### A LLBG ####[facility] LABIA [id number] [place] [address] [place] pH (Bld) 7.32 [pH] Low 7.35-7.45 [facility] Comment on above: Order Comment: Speci men Type: ARTERIAL BLOOD SPECIMENOrdering Facility: [facility] Address: [address] [place] [address] Performed By: #### A LLBG ####[facility] LABIA [id number] [place] [address] [place] Potassium [Moles/Vol] 3.6 mmol/L Normal 3.5-5.0 [facility] Comment on above: Order Comment: Speci men Type: ARTERIAL BLOOD SPECIMENOrdering Facility: [facility] Address: [address] [place] [address] Performed By: #### A LLBG ####[facility] LABCLIA [id number] [place] [address] [place] Sodium [Moles/Vol] 139 mmol/L Normal 136-144 [facility] Comment on above: Order Comment: Speci men Type: ARTERIAL BLOOD SPECIMENOrdering Facility: [facility] Address: [address] [place] [address] Performed By: #### A LLBG ####[facility] LABCLIA [id number] [place] [address] [place] Base deficit (BldA) [Moles/Vol] -3 mmol/L Low -2-0 [facility] Comment on above: Order Comment: Speci men Type: ARTERIAL BLOOD SPECIMENOrdering Facility: [facility] Address: [address] [place] [address] Performed By: #### A LLBG ####[facility] LABCLIA [id number] [place] [address] [place] Calcium.ionized (Bld) [Mass/Vol] 1.12 mmol/L Normal 1.08-1.30 [facility] Comment on above: Order Comment: Speci men Type: ARTERIAL BLOOD SPECIMENOrdering Facility: [facility] Address: [address] [place] [address] Performed By: #### A LLBG ####[facility] LABCLIA [id number] [place] [address] [place] Calcium.ionized adjusted to pH 7.4 (BldA) [Moles/Vol] 1.08 mmol/L Normal 1.08-1.30 [facility] Comment on above: Order Comment: Speci men Type: ARTERIAL BLOOD SPECIMENOrdering Facility: [facility] Address: [address] [place] [address] Performed By: #### A LLBG ####[facility] LABCLIA [id number] [place] [address] [place] Carboxyhemoglobin (BldA) [Mass fraction] 2.2 % High 0.0-2.0 [facility] Comment on above: Order Comment: Speci men Type: ARTERIAL BLOOD SPECIMENOrdering Facility: [facility] Address: [address] [place] [address] Result Comment: Carb oxyhemoglobin Reference Range for Smokers: 2.0-8.0% Performed By: #### A LLBG ####[facility] LABCLIA [id number] [place] [address] [place] CO2 (Bld) [Partial pressure] 45 mm Hg Normal 36-46 [facility] Comment on above: Order Comment: Speci men Type: ARTERIAL BLOOD SPECIMENOrdering Facility: [facility] Address: [address] [place] [address] Performed By: #### A LLBG ####[facility] LABCLIA [id number] [place] [address] [place] CO2 adjusted to patient's actual temperature (Bld) [Partial pressure] 45 mmHg Normal 36-46 [facility] Comment on above: Order Comment: Speci men Type: ARTERIAL BLOOD SPECIMENOrdering Facility: [facility] Address: [address] [place] [address] Performed By: #### A LLBG ####[facility] LABCLIA [id number] [place] [address] [place] Glucose [Mass/Vol] 154 mg/dL High 60-105 [facility] Comment on above: Order Comment: Speci men Type: ARTERIAL BLOOD SPECIMENOrdering Facility: [facility] Address: [address] [place] [address] Performed By: #### A LLBG ####[facility] LABCLIA [id number] [place] [address] [place] HCO3 (Bld) [Moles/Vol] 23 mmol/L Normal 22-26 [facility] Comment on above: Order Comment: Speci men Type: ARTERIAL BLOOD SPECIMENOrdering Facility: [facility] Address: [address] [place] [address] Performed By: #### A LLBG ####[facility] LABCLIA [id number] [place] [address] [place] Hematocrit (Bld) [Volume fraction] 31.8 % Low 36.0-46.0 [facility] Comment on above: Order Comment: Speci men Type: ARTERIAL BLOOD SPECIMENOrdering Facility: [facility] Address: [address] [place] [address] Performed By: #### A LLBG ####[facility] LABCLIA [id number] [place] [address] [place] Hemoglobin (Bld) [Mass/Vol] 10.3 g/dL Low 11.5-15.5 [facility] Comment on above: Order Comment: Speci men Type: ARTERIAL BLOOD SPECIMENOrdering Facility: [facility] Address: [address] [place] [address] Performed By: #### A LLBG ####[facility] LABCLIA [id number] [place] [address] [place] Lactate [Moles/Vol] 3.6 mmol/L High 0.5-2.2 [facility] Comment on above: Order Comment: Speci men Type: ARTERIAL BLOOD SPECIMENOrdering Facility: [facility] Address: [address] [place] [address] Performed By: #### A LLBG ####[facility] LABIA [id number] [place] [address] [place] Methemoglobin (Bld) [Mass fraction] 1.2 % Normal 0.0-1.5 [facility] Comment on above: Order Comment: Speci men Type: ARTERIAL BLOOD SPECIMENOrdering Facility: [facility] Address: [address] [place] [address] Performed By: #### A LLBG ####[facility] LABCLIA [id number] [place] [address] [place] Oxygen (Bld) [Partial pressure] 132 mm Hg High 85-95 [facility] Comment on above: Order Comment: Speci men Type: ARTERIAL BLOOD SPECIMENOrdering Facility: [facility] Address: [address] [place] [address] Performed By: #### A LLBG ####[facility] LABIA [id number] [place] [address] [place] Oxygen adjusted to patient's actual temperature (Bld) [Partial pressure] 132 mmHg High 85-95 [facility] Comment on above: Order Comment: Speci men Type: ARTERIAL BLOOD SPECIMENOrdering Facility: [facility] Address: [address] [place] [address] Performed By: #### A LLBG ####[facility] LABCLIA [id number] [place] [address] [place] Oxyhemoglobin (BldA) [Mass fraction] 96 % Normal 95-98 [facility] Comment on above: Order Comment: Speci men Type: ARTERIAL BLOOD SPECIMENOrdering Facility: [facility] Address: [address] [place] [address] Performed By: #### A LLBG ####[facility] LABCLIA [id number] [place] [address] [place] pH (Bld) 7.32 [pH] Low 7.35-7.45 [facility] Comment on above: Order Comment: Speci men Type: ARTERIAL BLOOD SPECIMENOrdering Facility: [facility] Address: [address] [place] [address] Performed By: #### A LLBG ####[facility] LABCLIA [id number] [place] [address] [place] pH adjusted to patient's actual temperature (Bld) 7.32 Low 7.35-7.45 [facility] Comment on above: Order Comment: Speci men Type: ARTERIAL BLOOD SPECIMENOrdering Facility: [facility] Address: [address] [place] [address] Performed By: #### A LLBG ####[facility] LABCLIA [id number] [place] [address] [place] Potassium [Moles/Vol] 3.4 mmol/L Low 3.5-5.0 [facility] Comment on above: Order Comment: Speci men Type: ARTERIAL BLOOD SPECIMENOrdering Facility: [facility] Address: [address] [place] [address] Performed By: #### A LLBG ####[facility] LABCLIA [id number] [place] [address] [place] Sodium [Moles/Vol] 137 mmol/L Normal 136-144 [facility] Comment on above: Order Comment: Speci men Type: ARTERIAL BLOOD SPECIMENOrdering Facility: [facility] Address: [address] [place] [address] Performed By: #### A LLBG ####[facility] LABIA [id number] [place] [address] [place] Base deficit (BldA) [Moles/Vol] -4 mmol/L Low -2-0 [facility] Comment on above: Order Comment: Speci men Type: ARTERIAL BLOOD SPECIMENOrdering Facility: [facility] Address: [address] [place] [address] Performed By: #### A LLBG ####[facility] LABIA [id number] [place] [address] [place] Calcium.ionized (Bld) [Mass/Vol] 1.06 mmol/L Low 1.08-1.30 [facility] Comment on above: Order Comment: Speci men Type: ARTERIAL BLOOD SPECIMENOrdering Facility: [facility] Address: [address] [place] [address] Performed By: #### A LLBG ####[facility] LABIA [id number] [place] [address] [place] Calcium.ionized adjusted to pH 7.4 (BldA) [Moles/Vol] 1.02 mmol/L Low 1.08-1.30 [facility] Comment on above: Order Comment: Speci men Type: ARTERIAL BLOOD SPECIMENOrdering Facility: [facility] Address: [address] [place] [address] Performed By: #### A LLBG ####[facility] LABIA [id number] [place] [address] [place] Carboxyhemoglobin (BldA) [Mass fraction] 1.9 % Normal 0.0-2.0 [facility] Comment on above: Order Comment: Speci men Type: ARTERIAL BLOOD SPECIMENOrdering Facility: [facility] Address: [address] [place] [address] Result Comment: Carb oxyhemoglobin Reference Range for Smokers: 2.0-8.0% Performed By: #### A LLBG ####[facility] LABCLIA [id number] [place] [address] [place] CO2 (Bld) [Partial pressure] 40 mm Hg Normal 36-46 [facility] Comment on above: Order Comment: Speci men Type: ARTERIAL BLOOD SPECIMENOrdering Facility: [facility] Address: [address] [place] [address] Performed By: #### A LLBG ####[facility] LABCLIA [id number] [address] [place] CO2 adjusted to patient's actual temperature (Bld) [Partial pressure] 40 mmHg Normal 36-46 [facility] Comment on above: Order Comment: Speci men Type: ARTERIAL BLOOD SPECIMENOrdering Facility: [facility] Address: [address] [place] [address] Performed By: #### A LLBG ####[facility] LABCLIA [id number] [place] [address] [place] Glucose [Mass/Vol] 302 mg/dL High 60-105 [facility] Comment on above: Order Comment: Speci men Type: ARTERIAL BLOOD SPECIMENOrdering Facility: [facility] Address: [address] [place] [address] Performed By: #### A LLBG ####[facility] LABCLIA [id number] [place] [address] [place] HCO3 (Bld) [Moles/Vol] 21 mmol/L Low 22-26 [facility] Comment on above: Order Comment: Speci men Type: ARTERIAL BLOOD SPECIMENOrdering Facility: [facility] Address: [address] [place] [address] Performed By: #### A LLBG ####[facility] LABIA [id number] [place] [address] [place] Hematocrit (Bld) [Volume fraction] 28.4 % Low 36.0-46.0 [facility] Comment on above: Order Comment: Speci men Type: ARTERIAL BLOOD SPECIMENOrdering Facility: [facility] Address: [address] [place] [address] Performed By: #### A LLBG ####[facility] LABIA [id number] [place] [address] [place] Hemoglobin (Bld) [Mass/Vol] 9.2 g/dL Low 11.5-15.5 [facility] Comment on above: Order Comment: Speci men Type: ARTERIAL BLOOD SPECIMENOrdering Facility: [facility] Address: [address] [place] [address] Performed By: #### A LLBG ####[facility] LABIA [id number] [place] [address] [place] Lactate [Moles/Vol] 2.2 mmol/L Normal 0.5-2.2 [facility] Comment on above: Order Comment: Speci men Type: ARTERIAL BLOOD SPECIMENOrdering Facility: [facility] Address: [address] [place] [address] Performed By: #### A LLBG ####[facility] LABIA [id number] [place] [address] [place] Methemoglobin (Bld) [Mass fraction] 1.0 % Normal 0.0-1.5 [facility] Comment on above: Order Comment: Speci men Type: ARTERIAL BLOOD SPECIMENOrdering Facility: [facility] Address: [address] [place] [address] Performed By: #### A LLBG ####[facility] LABCLIA [id number] [address] [address] [place] Oxygen (Bld) [Partial pressure] 291 mm Hg High 85-95 [facility] Comment on above: Order Comment: Speci men Type: ARTERIAL BLOOD SPECIMENOrdering Facility: [facility] Address: [address] [place], [place] [id number] Performed By: #### A LLBG ####[facility] LABCLIA [id number] [place] [id number] [place] Oxygen adjusted to patient's actual temperature (Bld) [Partial pressure] 291 mmHg High 85-95 [facility] Comment on above: Order Comment: Speci men Type: ARTERIAL BLOOD SPECIMENOrdering Facility: [facility] Address: [address] [place] [address] Performed By: #### A LLBG ####[facility] LABCLIA [id number] [place] [address] [place] Oxyhemoglobin (BldA) [Mass fraction] 97 % Normal 95-98 [facility] Comment on above: Order Comment: Speci men Type: ARTERIAL BLOOD SPECIMENOrdering Facility: [facility] Address: [address] [place] [address] Performed By: #### A LLBG ####[facility] LABCLIA [id number] [place] [address] [place] pH (Bld) 7.33 [pH] Low 7.35-7.45 [facility] Comment on above: Order Comment: Speci men Type: ARTERIAL BLOOD SPECIMENOrdering Facility: [facility] Address: [address] [place], [place] [address] Performed By: #### A LLBG ####[facility] LABCLIA [id number] [place] [id number] [place] pH adjusted to patient's actual temperature (Bld) 7.33 Low 7.35-7.45 [facility] Comment on above: Order Comment: Speci men Type: ARTERIAL BLOOD SPECIMENOrdering Facility: [facility] Address: [address] [place] [address] Performed By: #### A LLBG ####[facility] LABIA [id number] [place] [address] [place] Potassium [Moles/Vol] 4.7 mmol/L Normal 3.5-5.0 [facility] Comment on above: Order Comment: Speci men Type: ARTERIAL BLOOD SPECIMENOrdering Facility: [facility] Address: [address] [place] [address] Performed By: #### A LLBG ####[facility] LABIA [id number] [place] [address] [place] Sodium [Moles/Vol] 133 mmol/L Low 136-144 [facility] Comment on above: Order Comment: Speci men Type: ARTERIAL BLOOD SPECIMENOrdering Facility: [facility] Address: [address] [place] [address] Performed By: #### A LLBG ####[facility] LABIA [id number] [place] [address] [place] Base deficit (BldA) [Moles/Vol] -3 mmol/L Low -2-0 [facility] Comment on above: Order Comment: Speci men Type: ARTERIAL BLOOD SPECIMENOrdering Facility: [facility] Address: [address] [place] [address] Performed By: #### A LLBG ####[facility] LABIA [id number] [place] [address] [place] Calcium.ionized (Bld) [Mass/Vol] 1.03 mmol/L Low 1.08-1.30 [facility] Comment on above: Order Comment: Speci men Type: ARTERIAL BLOOD SPECIMENOrdering Facility: [facility] Address: [address] [place] [address] Performed By: #### A LLBG ####[facility] LABCLIA [id number] [place] [address] [place] Calcium.ionized adjusted to pH 7.4 (BldA) [Moles/Vol] 1.03 mmol/L Low 1.08-1.30 [facility] Comment on above: Order Comment: Speci men Type: ARTERIAL BLOOD SPECIMENOrdering Facility: [facility] Address: [address] [place] [address] Performed By: #### A LLBG ####[facility] LABCLIA [id number] [place] [address] [place] Carboxyhemoglobin (BldA) [Mass fraction] 2.0 % Normal 0.0-2.0 [facility] Comment on above: Order Comment: Speci men Type: ARTERIAL BLOOD SPECIMENOrdering Facility: [facility] Address: [address] [place] [address] Result Comment: Carb oxyhemoglobin Reference Range for Smokers: 2.0-8.0% Performed By: #### A LLBG ####[facility] LABCLIA [id number] [place] [address] [place] CO2 (Bld) [Partial pressure] 35 mm Hg Low 36-46 [facility] Comment on above: Order Comment: Speci men Type: ARTERIAL BLOOD SPECIMENOrdering Facility: [facility] Address: [address] [place] [address] Performed By: #### A LLBG ####[facility] LABCLIA [id number] [place] [address] [place] CO2 adjusted to patient's actual temperature (Bld) [Partial pressure] 35 mmHg Low 36-46 [facility] Comment on above: Order Comment: Speci men Type: ARTERIAL BLOOD SPECIMENOrdering Facility: [facility] Address: [address] [place] [address] Performed By: #### A LLBG ####[facility] LABCLIA [id number] [place] [address] [place] Glucose [Mass/Vol] 274 mg/dL High 60-105 [facility] Comment on above: Order Comment: Speci men Type: ARTERIAL BLOOD SPECIMENOrdering Facility: [facility] Address: [address] [place] [address] Performed By: #### A LLBG ####[facility] LABCLIA [id number] [place] [address] [place] HCO3 (Bld) [Moles/Vol] 21 mmol/L Low 22-26 [facility] Comment on above: Order Comment: Speci men Type: ARTERIAL BLOOD SPECIMENOrdering Facility: [facility] Address: [address] [place] [address] Performed By: #### A LLBG ####[facility] LABCLIA [id number] [place] [address] [place] Hematocrit (Bld) [Volume fraction] 29.4 % Low 36.0-46.0 [facility] Comment on above: Order Comment: Speci men Type: ARTERIAL BLOOD SPECIMENOrdering Facility: [facility] Address: [address] [place] [address] Performed By: #### A LLBG ####[facility] LABCLIA [id number] [place] [address] [place] Hemoglobin (Bld) [Mass/Vol] 9.5 g/dL Low 11.5-15.5 [facility] Comment on above: Order Comment: Speci men Type: ARTERIAL BLOOD SPECIMENOrdering Facility: [facility] Address: [address] [place] [address] Performed By: #### A LLBG ####[facility] LABCLIA [id number] [place] [address] [place] Lactate [Moles/Vol] 2.0 mmol/L Normal 0.5-2.2 [facility] Comment on above: Order Comment: Speci men Type: ARTERIAL BLOOD SPECIMENOrdering Facility: [facility] Address: [address] [place] [address] Performed By: #### A LLBG ####[facility] LABCLIA [id number] [address] [address] [place] Methemoglobin (Bld) [Mass fraction] 0.6 % Normal 0.0-1.5 [facility] Comment on above: Order Comment: Speci men Type: ARTERIAL BLOOD SPECIMENOrdering Facility: [facility] Address: [address] [place] [id number] Performed By: #### A LLBG ####[facility] LABCLIA [id number] [place] [address] [place] Oxygen (Bld) [Partial pressure] 315 mm Hg High 85-95 [facility] Comment on above: Order Comment: Speci men Type: ARTERIAL BLOOD SPECIMENOrdering Facility: [facility] Address: [address] [place] [address] Performed By: #### A LLBG ####[facility] LABCLIA [id number] [place] [address] [place] Oxygen adjusted to patient's actual temperature (Bld) [Partial pressure] 315 mmHg High 85-95 [facility] Comment on above: Order Comment: Speci men Type: ARTERIAL BLOOD SPECIMENOrdering Facility: [facility] Address: [address] [place] [id number] Performed By: #### A LLBG ####[facility] LABCLIA [id number] [address] [address] [place] Oxyhemoglobin (BldA) [Mass fraction] 97 % Normal 95-98 [facility] Comment on above: Order Comment: Speci men Type: ARTERIAL BLOOD SPECIMENOrdering Facility: [facility] Address: [address] [place] [id number] Performed By: #### A LLBG ####[facility] LABCLIA [id number] [place] [address] [place] pH (Bld) 7.40 [pH] Normal 7.35-7.45 [facility] Comment on above: Order Comment: Speci men Type: ARTERIAL BLOOD SPECIMENOrdering Facility: [facility] Address: [address] [place] [address] Performed By: #### A LLBG ####[facility] LABCLIA [id number] [place] [address] [place] pH adjusted to patient's actual temperature (Bld) 7.40 Normal 7.35-7.45 [facility] Comment on above: Order Comment: Speci men Type: ARTERIAL BLOOD SPECIMENOrdering Facility: [facility] Address: [address] [place] [address] Performed By: #### A LLBG ####[facility] LABCLIA [id number] [place] [address] [place] Potassium [Moles/Vol] 4.4 mmol/L Normal 3.5-5.0 [facility] Comment on above: Order Comment: Speci men Type: ARTERIAL BLOOD SPECIMENOrdering Facility: [facility] Address: [address] [place] [address] Performed By: #### A LLBG ####[facility] LABCLIA [id number] [place] [address] [place] Sodium [Moles/Vol] 134 mmol/L Low 136-144 [facility] Comment on above: Order Comment: Speci men Type: ARTERIAL BLOOD SPECIMENOrdering Facility: [facility] Address: [address] [place] [address] Performed By: #### A LLBG ####[facility] LABCLIA [id number] [place] [address] [place] Base deficit (BldA) [Moles/Vol] -6 mmol/L Low -2-0 [facility] Comment on above: Order Comment: Speci men Type: ARTERIAL BLOOD SPECIMENOrdering Facility: [facility] Address: [address] [place] [address] Performed By: #### A LLBG ####[facility] [id number] [place] [address] [place] Calcium.ionized (Bld) [Mass/Vol] 1.04 mmol/L Low 1.08-1.30 [facility] Comment on above: Order Comment: Speci men Type: ARTERIAL BLOOD SPECIMENOrdering Facility: [facility] Address: [address] [place] [address] Performed By: #### A LLBG ####[facility] [id number] [place] [address] [place] Calcium.ionized adjusted to pH 7.4 (BldA) [Moles/Vol] 0.99 mmol/L Low 1.08-1.30 [facility] Comment on above: Order Comment: Speci men Type: ARTERIAL BLOOD SPECIMENOrdering Facility: [facility] Address: [address] [place] [address] Performed By: #### A LLBG ####[facility] [id number] [place] [address] [place] Carboxyhemoglobin (BldA) [Mass fraction] 1.8 % Normal 0.0-2.0 [facility] Comment on above: Order Comment: Speci men Type: ARTERIAL BLOOD SPECIMENOrdering Facility: [facility] Address: [address] [place] [address] Result Comment: Carb oxyhemoglobin Reference Range for Smokers: 2.0-8.0% Performed By: #### A LLBG ####[facility] [id number] [place] [address] [place] CO2 (Bld) [Partial pressure] 40 mm Hg Normal 36-46 [facility] Comment on above: Order Comment: Speci men Type: ARTERIAL BLOOD SPECIMENOrdering Facility: [facility] Address: [address] [place] [address] Performed By: #### A LLBG ####[facility] LABCLIA [id number] [place] [address] [place] CO2 adjusted to patient's actual temperature (Bld) [Partial pressure] 40 mmHg Normal 36-46 [facility] Comment on above: Order Comment: Speci men Type: ARTERIAL BLOOD SPECIMENOrdering Facility: [facility] Address: [address] [place] [address] Performed By: #### A LLBG ####[facility] LABCLIA [id number] [place] [address] [place] Glucose [Mass/Vol] 209 mg/dL High 60-105 [facility] Comment on above: Order Comment: Speci men Type: ARTERIAL BLOOD SPECIMENOrdering Facility: [facility] Address: [address] [place] [address] Performed By: #### A LLBG ####[facility] LABCLIA [id number] [place] [address] [place] HCO3 (Bld) [Moles/Vol] 19 mmol/L Low 22-26 [facility] Comment on above: Order Comment: Speci men Type: ARTERIAL BLOOD SPECIMENOrdering Facility: [facility] Address: [address] [place] [address] Performed By: #### A LLBG ####[facility] LABCLIA [id number] [place] [address] [place] Hematocrit (Bld) [Volume fraction] 28.8 % Low 36.0-46.0 [facility] Comment on above: Order Comment: Speci men Type: ARTERIAL BLOOD SPECIMENOrdering Facility: [facility] Address: [address] [place] [address] Performed By: #### A LLBG ####[facility] LABCLIA [id number] [place] [address] [place] Hemoglobin (Bld) [Mass/Vol] 9.3 g/dL Low 11.5-15.5 [facility] Comment on above: Order Comment: Speci men Type: ARTERIAL BLOOD SPECIMENOrdering Facility: [facility] Address: [address] [place] [address] Performed By: #### A LLBG ####[facility] LABCLIA [id number] [place] [address] [place] Lactate [Moles/Vol] 2.9 mmol/L High 0.5-2.2 [facility] Comment on above: Order Comment: Speci men Type: ARTERIAL BLOOD SPECIMENOrdering Facility: [facility] Address: [address] [place] [address] Performed By: #### A LLBG ####[facility] LABCLIA [id number] [place] [address] [place] Methemoglobin (Bld) [Mass fraction] 2.0 % High 0.0-1.5 [facility] Comment on above: Order Comment: Speci men Type: ARTERIAL BLOOD SPECIMENOrdering Facility: [facility] Address: [address] [place] [address] Performed By: #### A LLBG ####[facility] LABCLIA [id number] [place] [address] [place] Oxygen (Bld) [Partial pressure] 401 mm Hg High 85-95 [facility] Comment on above: Order Comment: Speci men Type: ARTERIAL BLOOD SPECIMENOrdering Facility: [facility] Address: [address] [place] [address] Performed By: #### A LLBG ####[facility] LABCLIA [id number] [place] [id number] [place] Oxygen adjusted to patient's actual temperature (Bld) [Partial pressure] 401 mmHg High 85-95 [facility] Comment on above: Order Comment: Speci men Type: ARTERIAL BLOOD SPECIMENOrdering Facility: [facility] Address: [address] [place] [address] Performed By: #### A LLBG ####[facility] LABCLIA [id number] [place] [address] [place] Oxyhemoglobin (BldA) [Mass fraction] 96 % Normal 95-98 [facility] Comment on above: Order Comment: Speci men Type: ARTERIAL BLOOD SPECIMENOrdering Facility: [facility] Address: [address] [place] [address] Performed By: #### A LLBG ####[facility] LABIA [id number] [place] [address] [place] pH (Bld) 7.31 [pH] Low 7.35-7.45 [facility] Comment on above: Order Comment: Speci men Type: ARTERIAL BLOOD SPECIMENOrdering Facility: [facility] Address: [address] [place] [address] Performed By: #### A LLBG ####[facility] LABIA [id number] [place] [address] [place] pH adjusted to patient's actual temperature (Bld) 7.31 Low 7.35-7.45 [facility] Comment on above: Order Comment: Speci men Type: ARTERIAL BLOOD SPECIMENOrdering Facility: [facility] Address: [address] [place] [address] Performed By: #### A LLBG ####[facility] LABIA [id number] [place] [address] [place] Potassium [Moles/Vol] 4.0 mmol/L Normal 3.5-5.0 [facility] Comment on above: Order Comment: Speci men Type: ARTERIAL BLOOD SPECIMENOrdering Facility: [facility] Address: [address] [place] [address] Performed By: #### A LLBG ####[facility] LABIA [id number] [place] [address] [place] Sodium [Moles/Vol] 133 mmol/L Low 136-144 [facility] Comment on above: Order Comment: Speci men Type: ARTERIAL BLOOD SPECIMENOrdering Facility: [facility] Address: [address] [place] [address] Performed By: #### A LLBG ####[facility] LABIA [id number] [place] [address] [place] Base deficit (BldA) [Moles/Vol] -5 mmol/L Low -2-0 [facility] Comment on above: Order Comment: Speci men Type: ARTERIAL BLOOD SPECIMENOrdering Facility: [facility] Address: [address] [place] [address] Performed By: #### A LLBG ####[facility] LABIA [id number] [place] [address] [place] Calcium.ionized (Bld) [Mass/Vol] 1.11 mmol/L Normal 1.08-1.30 [facility] Comment on above: Order Comment: Speci men Type: ARTERIAL BLOOD SPECIMENOrdering Facility: [facility] Address: [address] [place] [address] Performed By: #### A LLBG ####[facility] LABIA [id number] [place] [address] [place] Calcium.ionized adjusted to pH 7.4 (BldA) [Moles/Vol] 1.06 mmol/L Low 1.08-1.30 [facility] Comment on above: Order Comment: Speci men Type: ARTERIAL BLOOD SPECIMENOrdering Facility: [facility] Address: [address] [place] [address] Performed By: #### A LLBG ####[facility] LABIA [id number] [place] [address] [place] Carboxyhemoglobin (BldA) [Mass fraction] 1.9 % Normal 0.0-2.0 [facility] Comment on above: Order Comment: Speci men Type: ARTERIAL BLOOD SPECIMENOrdering Facility: [facility] Address: [address] [place] [address] Result Comment: Carb oxyhemoglobin Reference Range for Smokers: 2.0-8.0% Performed By: #### A LLBG ####[facility] LABCLIA [id number] [place] [address] [place] CO2 (Bld) [Partial pressure] 41 mm Hg Normal 36-46 [facility] Comment on above: Order Comment: Speci men Type: ARTERIAL BLOOD SPECIMENOrdering Facility: [facility] Address: [address] [place] [address] Performed By: #### A LLBG ####[facility] LABCLIA [id number] [place] [address] [place] CO2 adjusted to patient's actual temperature (Bld) [Partial pressure] 41 mmHg Normal 36-46 [facility] Comment on above: Order Comment: Speci men Type: ARTERIAL BLOOD SPECIMENOrdering Facility: [facility] Address: [address] [place] [address] Performed By: #### A LLBG ####[facility] LABCLIA [id number] [place] [address] [place] Glucose [Mass/Vol] 122 mg/dL High 60-105 [facility] Comment on above: Order Comment: Speci men Type: ARTERIAL BLOOD SPECIMENOrdering Facility: [facility] Address: [address] [place] [address] Performed By: #### A LLBG ####[facility] LABCLIA [id number] [place] [address] [place] HCO3 (Bld) [Moles/Vol] 20 mmol/L Low 22-26 [facility] Comment on above: Order Comment: Speci men Type: ARTERIAL BLOOD SPECIMENOrdering Facility: [facility] Address: [address] [place] [address] Performed By: #### A LLBG ####[facility] LABCLIA [id number] [place] [address] [place] Hematocrit (Bld) [Volume fraction] 34.2 % Low 36.0-46.0 [facility] Comment on above: Order Comment: Speci men Type: ARTERIAL BLOOD SPECIMENOrdering Facility: [facility] Address: [address] [place] [address] Performed By: #### A LLBG ####[facility] LABCLIA [id number] [place] [address] [place] Hemoglobin (Bld) [Mass/Vol] 11.1 g/dL Low 11.5-15.5 [facility] Comment on above: Order Comment: Speci men Type: ARTERIAL BLOOD SPECIMENOrdering Facility: [facility] Address: [address] [place] [address] Performed By: #### A LLBG ####[facility] LABCLIA [id number] [place] [address] [place] Lactate [Moles/Vol] 2.1 mmol/L Normal 0.5-2.2 [facility] Comment on above: Order Comment: Speci men Type: ARTERIAL BLOOD SPECIMENOrdering Facility: [facility] Address: [address] [place] [address] Performed By: #### A LLBG ####[facility] LABCLIA [id number] [place] [address] [place] Order Comment: Speci men Type: VENOUS BLOOD SPECIMENOrdering Facility: [facility] Address: [address] [place] [address] Performed By: #### 2 [id number] ####[facility] LABCLIA [id number] [place] [address] [place] Methemoglobin (Bld) [Mass fraction] 1.4 % Normal 0.0-1.5 [facility] Comment on above: Order Comment: Speci men Type: ARTERIAL BLOOD SPECIMENOrdering Facility: [facility] Address: [address] [place] [address] Performed By: #### A LLBG ####[facility] LABCLIA [id number] [place] [address] [place] Oxygen (Bld) [Partial pressure] 297 mm Hg High 85-95 [facility] Comment on above: Order Comment: Speci men Type: ARTERIAL BLOOD SPECIMENOrdering Facility: [facility] Address: [address] [place] [address] Performed By: #### A LLBG ####[facility] LABCLIA [id number] [place] [address] [place] Oxygen adjusted to patient's actual temperature (Bld) [Partial pressure] 297 mmHg High 85-95 [facility] Comment on above: Order Comment: Speci men Type: ARTERIAL BLOOD SPECIMENOrdering Facility: [facility] Address: [address] [place] [address] Performed By: #### A LLBG ####[facility] LABCLIA [id number] [place] [address] [place] Oxyhemoglobin (BldA) [Mass fraction] 96 % Normal 95-98 [facility] Comment on above: Order Comment: Speci men Type: ARTERIAL BLOOD SPECIMENOrdering Facility: [facility] Address: [address] [place] [address] Performed By: #### A LLBG ####[facility] LABCLIA [id number] [place] [id number] [place] pH (Bld) 7.31 [pH] Low 7.35-7.45 [facility] Comment on above: Order Comment: Speci men Type: ARTERIAL BLOOD SPECIMENOrdering Facility: [facility] Address: [address] [place] [address] Performed By: #### A LLBG ####[facility] LABCLIA [id number] [place] [address] [place] pH adjusted to patient's actual temperature (Bld) 7.31 Low 7.35-7.45 [facility] Comment on above: Order Comment: Speci men Type: ARTERIAL BLOOD SPECIMENOrdering Facility: [facility] Address: [address] [place] [address] Performed By: #### A LLBG ####[facility] LABCLIA [id number] [place] [address] [place] Potassium [Moles/Vol] 3.6 mmol/L Normal 3.5-5.0 [facility] Comment on above: Order Comment: Speci men Type: ARTERIAL BLOOD SPECIMENOrdering Facility: [facility] Address: [address] [place] [address] Performed By: #### A LLBG ####[facility] LABCLIA [id number] [place] [address] [place] Sodium [Moles/Vol] 142 mmol/L Normal 136-144 [facility] Comment on above: Order Comment: Speci men Type: ARTERIAL BLOOD SPECIMENOrdering Facility: [facility] Address: [address] [place] [address] Performed By: #### A LLBG ####[facility] LABCLIA [id number] [place] [address] [place] Base deficit (BldA) [Moles/Vol] -11 mmol/L Low -2-0 [facility] Comment on above: Order Comment: Speci men Type: ARTERIAL BLOOD SPECIMENOrdering Facility: [facility] Address: [address] [place] [address] Performed By: #### A LLBG ####[facility] LABCLIA [id number] [place] [address] [place] Calcium.ionized (Bld) [Mass/Vol] 0.94 mmol/L Low 1.08-1.30 [facility] Comment on above: Order Comment: Speci men Type: ARTERIAL BLOOD SPECIMENOrdering Facility: [facility] Address: [address] [place] [address] Performed By: #### A LLBG ####[facility] LABIA [id number] [place] [address] [place] Calcium.ionized adjusted to pH 7.4 (BldA) [Moles/Vol] 0.87 mmol/L Low 1.08-1.30 [facility] Comment on above: Order Comment: Speci men Type: ARTERIAL BLOOD SPECIMENOrdering Facility: [facility] Address: [address] [place] [address] Performed By: #### A LLBG ####[facility] LABIA [id number] [place] [address] [place] Carboxyhemoglobin (BldA) [Mass fraction] 2.0 % Normal 0.0-2.0 [facility] Comment on above: Order Comment: Speci men Type: ARTERIAL BLOOD SPECIMENOrdering Facility: [facility] Address: [address] [place] [address] Result Comment: Carb oxyhemoglobin Reference Range for Smokers: 2.0-8.0% Performed By: #### A LLBG ####[facility] LABIA [id number] [place] [address] [place] CO2 (Bld) [Partial pressure] 32 mm Hg Low 36-46 [facility] Comment on above: Order Comment: Speci men Type: ARTERIAL BLOOD SPECIMENOrdering Facility: [facility] Address: [address] [place] [address] Performed By: #### A LLBG ####[facility] LABIA [id number] [place] [address] [place] CO2 adjusted to patient's actual temperature (Bld) [Partial pressure] 32 mmHg Low 36-46 [facility] Comment on above: Order Comment: Speci men Type: ARTERIAL BLOOD SPECIMENOrdering Facility: [facility] Address: [address] [place] [address] Performed By: #### A LLBG ####[facility] LABCLIA [id number] [place] [address] [place] COMMENTS Critical Value: K Urgent Value: NCA Normal [facility] Comment on above: Order Comment: Speci men Type: ARTERIAL BLOOD SPECIMENOrdering Facility: [facility] Address: [address] [place] [address] Performed By: #### A LLBG ####[facility] LABCLIA [id number] [place] [address] [place] DATE/TIME NOTIFIED [id number] AM Normal [facility] Comment on above: Order Comment: Speci men Type: ARTERIAL BLOOD SPECIMENOrdering Facility: [facility] Address: [address] [place] [address] Performed By: #### A LLBG ####[facility] LABCLIA [id number] [place] [address] [place] Glucose [Mass/Vol] 75 mg/dL Normal 60-105 [facility] Comment on above: Order Comment: Speci men Type: ARTERIAL BLOOD SPECIMENOrdering Facility: [facility] Address: [address] [place] [address] Performed By: #### A LLBG ####[facility] LABCLIA [id number] [place] [address] [place] HCO3 (Bld) [Moles/Vol] 14 mmol/L Low 22-26 [facility] Comment on above: Order Comment: Speci men Type: ARTERIAL BLOOD SPECIMENOrdering Facility: [facility] Address: [address] [place] [address] Performed By: #### A LLBG ####[facility] LABCLIA [id number] [place] [address] [place] Hematocrit (Bld) [Volume fraction] 27.3 % Low 36.0-46.0 [facility] Comment on above: Order Comment: Speci men Type: ARTERIAL BLOOD SPECIMENOrdering Facility: [facility] Address: [address] [place] [address] Performed By: #### A LLBG ####[facility] [id number] [place] [address] [place] Hemoglobin (Bld) [Mass/Vol] 8.8 g/dL Low 11.5-15.5 [facility] Comment on above: Order Comment: Speci men Type: ARTERIAL BLOOD SPECIMENOrdering Facility: [facility] Address: [address] [place] [address] Performed By: #### A LLBG ####[facility] [id number] [place] [address] [place] Lactate [Moles/Vol] 1.4 mmol/L Normal 0.5-2.2 [facility] Comment on above: Order Comment: Speci men Type: ARTERIAL BLOOD SPECIMENOrdering Facility: [facility] Address: [address] [place] [address] Performed By: #### A LLBG ####[facility] [id number] [place] [address] [place] Methemoglobin (Bld) [Mass fraction] 1.4 % Normal 0.0-1.5 [facility] Comment on above: Order Comment: Speci men Type: ARTERIAL BLOOD SPECIMENOrdering Facility: [facility] Address: [address] [place] [address] Performed By: #### A LLBG ####[facility] [id number] [place] [address] [place] NOTIFIED WHOM Loraine COREAS RN orRadha BAIG Normal [facility] Comment on above: Order Comment: Speci men Type: ARTERIAL BLOOD SPECIMENOrdering Facility: [facility] Address: [address] [place] [address] Performed By: #### A LLBG ####[facility] LABCLIA [id number] [address] [address] [place] Oxygen (Bld) [Partial pressure] 162 mm Hg High 85-95 [facility] Comment on above: Order Comment: Speci men Type: ARTERIAL BLOOD SPECIMENOrdering Facility: [facility] Address: [address] [place] [address] Performed By: #### A LLBG ####[facility] LABCLIA [id number] [place] [id number] [place] Oxygen adjusted to patient's actual temperature (Bld) [Partial pressure] 162 mmHg High 85-95 [facility] Comment on above: Order Comment: Speci men Type: ARTERIAL BLOOD SPECIMENOrdering Facility: [facility] Address: [address] [place] [address] Performed By: #### A LLBG ####[facility] LABCLIA [id number] [place] [address] [place] Oxyhemoglobin (BldA) [Mass fraction] 96 % Normal 95-98 [facility] Comment on above: Order Comment: Speci men Type: ARTERIAL BLOOD SPECIMENOrdering Facility: [facility] Address: [address] [place] [address] Performed By: #### A LLBG ####[facility] LABCLIA [id number] [place] [address] [place] pH (Bld) 7.27 [pH] Low 7.35-7.45 [facility] Comment on above: Order Comment: Speci men Type: ARTERIAL BLOOD SPECIMENOrdering Facility: [facility] Address: [address] [place] [address] Performed By: #### A LLBG ####[facility] LABCLIA [id number] [place] [id number] [place] pH adjusted to patient's actual temperature (Bld) 7.27 Low 7.35-7.45 [facility] Comment on above: Order Comment: Speci men Type: ARTERIAL BLOOD SPECIMENOrdering Facility: [facility] Address: [address] [place] [address] Performed By: #### A LLBG ####[facility] LABIA [id number] [place] [address] [place] Potassium [Moles/Vol] 2.2 mmol/L Critically low 3.5-5.0 [facility] Comment on above: Order Comment: Speci men Type: ARTERIAL BLOOD SPECIMENOrdering Facility: [facility] Address: [address] [place] [address] Performed By: #### A LLBG ####[facility] LABIA [id number] [place] [address] [place] Sodium [Moles/Vol] 145 mmol/L High 136-144 [facility] Comment on above: Order Comment: Speci men Type: ARTERIAL BLOOD SPECIMENOrdering Facility: [facility] Address: [address] [place] [address] Performed By: #### A LLBG ####[facility] LABIA [id number] [place] [address] [place] Base deficit (BldA) [Moles/Vol] -3 mmol/L Low -2-0 [facility] Comment on above: Order Comment: Speci men Type: ARTERIAL BLOOD SPECIMENOrdering Facility: [facility] Address: [address] [place] [address] Performed By: #### A LLBG ####[facility] LABIA [id number] [place] [address] [place] Calcium.ionized (Bld) [Mass/Vol] 1.22 mmol/L Normal 1.08-1.30 [facility] Comment on above: Order Comment: Speci men Type: ARTERIAL BLOOD SPECIMENOrdering Facility: [facility] Address: [address] [place] [address] Performed By: #### A LLBG ####[facility] LABCLIA [id number] [place] [address] [place] Calcium.ionized adjusted to pH 7.4 (BldA) [Moles/Vol] 1.21 mmol/L Normal 1.08-1.30 [facility] Comment on above: Order Comment: Speci men Type: ARTERIAL BLOOD SPECIMENOrdering Facility: [facility] Address: [address] [place] [address] Performed By: #### A LLBG ####[facility] LABCLIA [id number] [place] [address] [place] Carboxyhemoglobin (BldA) [Mass fraction] 2.4 % High 0.0-2.0 [facility] Comment on above: Order Comment: Speci men Type: ARTERIAL BLOOD SPECIMENOrdering Facility: [facility] Address: [address] [place] [address] Result Comment: Carb oxyhemoglobin Reference Range for Smokers: 2.0-8.0% Performed By: #### A LLBG ####[facility] LABCLIA [id number] [place] [address] [place] CO2 (Bld) [Partial pressure] 36 mm Hg Normal 36-46 [facility] Comment on above: Order Comment: Speci men Type: ARTERIAL BLOOD SPECIMENOrdering Facility: [facility] Address: [address] [place] [address] Performed By: #### A LLBG ####[facility] LABCLIA [id number] [place] [address] [place] CO2 adjusted to patient's actual temperature (Bld) [Partial pressure] 36 mmHg Normal 36-46 [facility] Comment on above: Order Comment: Speci men Type: ARTERIAL BLOOD SPECIMENOrdering Facility: [facility] Address: [address] [place] [address] Performed By: #### A LLBG ####[facility] LABCLIA [id number] [place] [address] [place] Glucose [Mass/Vol] 91 mg/dL Normal 60-105 [facility] Comment on above: Order Comment: Speci men Type: ARTERIAL BLOOD SPECIMENOrdering Facility: [facility] Address: [address] [place] [address] Performed By: #### A LLBG ####[facility] LABCLIA [id number] [place] [address] [place] HCO3 (Bld) [Moles/Vol] 21 mmol/L Low 22-26 [facility] Comment on above: Order Comment: Speci men Type: ARTERIAL BLOOD SPECIMENOrdering Facility: [facility] Address: [address] [place] [address] Performed By: #### A LLBG ####[facility] LABCLIA [id number] [place] [address] [place] Hematocrit (Bld) [Volume fraction] 40.5 % Normal 36.0-46.0 [facility] Comment on above: Order Comment: Speci men Type: ARTERIAL BLOOD SPECIMENOrdering Facility: [facility] Address: [address] [place] [address] Performed By: #### A LLBG ####[facility] LABCLIA [id number] [place] [address] [place] Hemoglobin (Bld) [Mass/Vol] 13.2 g/dL Normal 11.5-15.5 [facility] Comment on above: Order Comment: Speci men Type: ARTERIAL BLOOD SPECIMENOrdering Facility: [facility] Address: [address] [place] [address] Performed By: #### A LLBG ####[facility] LABCLIA [id number] [place] [address] [place] Lactate [Moles/Vol] 1.2 mmol/L Normal 0.5-2.2 [facility] Comment on above: Order Comment: Speci men Type: ARTERIAL BLOOD SPECIMENOrdering Facility: [facility] Address: [address] [place] [id number] Performed By: #### A LLBG ####[facility] LABCLIA [id number] [place] [id number] [place] Methemoglobin (Bld) [Mass fraction] 0.9 % Normal 0.0-1.5 [facility] Comment on above: Order Comment: Speci men Type: ARTERIAL BLOOD SPECIMENOrdering Facility: [facility] Address: [address] [place] [id number] Performed By: #### A LLBG ####[facility] LABCLIA [id number] [place] [address] [place] Oxygen (Bld) [Partial pressure] 114 mm Hg High 85-95 [facility] Comment on above: Order Comment: Speci men Type: ARTERIAL BLOOD SPECIMENOrdering Facility: [facility] Address: [address] [place] [address] Performed By: #### A LLBG ####[facility] LABCLIA [id number] [place] [address] [place] Oxygen adjusted to patient's actual temperature (Bld) [Partial pressure] 114 mmHg High 85-95 [facility] Comment on above: Order Comment: Speci men Type: ARTERIAL BLOOD SPECIMENOrdering Facility: [facility] Address: [address] [place] [id number] Performed By: #### A LLBG ####[facility] LABCLIA [id number] [address] [address] [place] Oxyhemoglobin (BldA) [Mass fraction] 96 % Normal 95-98 [facility] Comment on above: Order Comment: Speci men Type: ARTERIAL BLOOD SPECIMENOrdering Facility: [facility] Address: [address] [place] [id number] Performed By: #### A LLBG ####[facility] LABCLIA [id number] [place] [address] [place] pH (Bld) 7.38 [pH] Normal 7.35-7.45 [facility] Comment on above: Order Comment: Speci men Type: ARTERIAL BLOOD SPECIMENOrdering Facility: [facility] Address: [address] [place] [address] Performed By: #### A LLBG ####[facility] LABCLIA [id number] [place] [address] [place] pH adjusted to patient's actual temperature (Bld) 7.38 Normal 7.35-7.45 [facility] Comment on above: Order Comment: Speci men Type: ARTERIAL BLOOD SPECIMENOrdering Facility: [facility] Address: [address] [place] [address] Performed By: #### A LLBG ####[facility] LABCLIA [id number] [place] [address] [place] Potassium [Moles/Vol] 3.5 mmol/L Normal 3.5-5.0 [facility] Comment on above: Order Comment: Speci men Type: ARTERIAL BLOOD SPECIMENOrdering Facility: [facility] Address: [address] [place] [address] Performed By: #### A LLBG ####[facility] LABIA [id number] [place] [address] [place] Sodium [Moles/Vol] 144 mmol/L Normal 136-144 [facility] Comment on above: Order Comment: Speci men Type: ARTERIAL BLOOD SPECIMENOrdering Facility: [facility] Address: [address] [place] [address] Performed By: #### A LLBG ####[facility] LABCLIA [id number] [place] [id number] [place] CBC panel Auto (Bld)on 04-14 Erythrocyte distribution width (RBC) [Ratio] 12.8 % Normal 11.5-15.0 [facility] Comment on above: Order Comment: Speci men Type: BLOOD SPECIMENOrdering Facility: [facility] Address: [address] [place] [address] Performed By: #### 5 8410-2 ####[facility] LABIA [id number] [place] [address] [place] Hematocrit (Bld) [Volume fraction] 34.0 % Low 36.0-46.0 [facility] Comment on above: Order Comment: Speci men Type: BLOOD SPECIMENOrdering Facility: [facility] Address: [address] [place] [address] Performed By: #### 5 8410-2 ####[facility] LABIA [id number] [place] [address] [place] Hemoglobin (Bld) [Mass/Vol] 11.5 g/dL Normal 11.5-15.5 [facility] Comment on above: Order Comment: Speci men Type: BLOOD SPECIMENOrdering Facility: [facility] Address: [address] [place] [address] Performed By: #### 5 8410-2 ####[facility] LABIA [id number] [place] [address] [place] MCH (RBC) [Entitic mass] 33.7 pg Normal 26.0-34.0 [facility] Comment on above: Order Comment: Speci men Type: BLOOD SPECIMENOrdering Facility: [facility] Address: [address] [place] [address] Performed By: #### 5 8410-2 ####[facility] LABIA [id number] [place] [address] [place] MCHC (RBC) [Mass/Vol] 33.8 g/dL Normal 30.5-36.0 [facility] Comment on above: Order Comment: Speci men Type: BLOOD SPECIMENOrdering Facility: [facility] Address: [address] [place] [address] Performed By: #### 5 8410-2 ####[facility] LABIA [id number] [place] [address] [place] MCV (RBC) [Entitic vol] 99.7 fL Normal 80.0-100.0 [facility] Comment on above: Order Comment: Speci men Type: BLOOD SPECIMENOrdering Facility: [facility] Address: [address] [place] [address] Performed By: #### 5 8410-2 ####[facility] LABIA [id number] [place] [address] [place] Nucleated RBC (Bld) [#/Vol] 10*3/uL Normal <0.01 [facility] Comment on above: Order Comment: Speci men Type: BLOOD SPECIMENOrdering Facility: [facility] Address: [address] [place] [address] Performed By: #### 5 8410-2 ####[facility] LABIA [id number] [place] [address] [place] Platelet mean volume (Bld) [Entitic vol] 10.3 fL Normal 9.0-12.7 [facility] Comment on above: Order Comment: Speci men Type: BLOOD SPECIMENOrdering Facility: [facility] Address: [address] [place] [address] Performed By: #### 5 8410-2 ####[facility] LABIA [id number] [place] [address] [place] Platelets (Bld) [#/Vol] 164 10*3/uL Normal 150-400 [facility] Comment on above: Order Comment: Speci men Type: BLOOD SPECIMENOrdering Facility: [facility] Address: [address] [place] [address] Performed By: #### 5 8410-2 ####[facility] LABIA [id number] [place] [address] [address] [place] RBC (Bld) [#/Vol] 3.41 10*6/uL Low 3.90-5.20 [facility] Comment on above: Order Comment: Speci men Type: BLOOD SPECIMENOrdering Facility: [facility] Address: [address] [place] [address] Performed By: #### 5 8410-2 ####[facility] LABCLIA [id number] [place] [address] [place] WBC (Bld) [#/Vol] 8.84 10*3/uL Normal 3.70-11.00 [facility] Comment on above: Order Comment: Speci men Type: BLOOD SPECIMENOrdering Facility: [facility] Address: [address] [place] [address] Performed By: #### 5 8410-2 ####[facility] LABCLIA [id number] [place] [address] [place] Comprehensive metabolic 2000 panelon 04-14-2024 Albumin [Mass/Vol] 3.2 g/dL Low 3.9-4.9 [facility] Comment on above: Order Comment: Speci men Type: BLOOD SPECIMENOrdering Facility: [facility] Address: [address] [place] [address] Performed By: #### 2 4323-8 ####[facility] LABCLIA [id number] [place] [address] [place] ALP [Catalytic activity/Vol] 60 U/L Normal 34-123 [facility] Comment on above: Order Comment: Speci men Type: BLOOD SPECIMENOrdering Facility: [facility] Address: [address] [place] [address] Performed By: #### 2 4323-8 ####[facility] LABCLIA [id number] [place] [address] [place] ALT [Catalytic activity/Vol] 36 U/L Normal 7-38 [facility] Comment on above: Order Comment: Speci men Type: BLOOD SPECIMENOrdering Facility: [facility] Address: [address] [place] [address] Performed By: #### 2 4323-8 ####[facility] LABCLIA [id number] [place] [address] [place] Anion gap [Moles/Vol] 9 mmol/L Normal 8-15 [facility] Comment on above: Order Comment: Speci men Type: BLOOD SPECIMENOrdering Facility: [facility] Address: [address] [place] [address] Performed By: #### 2 4323-8 ####[facility] LABCLIA [id number] [place] [address] [place] AST [Catalytic activity/Vol] 82 U/L High 13-35 [facility] Comment on above: Order Comment: Speci men Type: BLOOD SPECIMENOrdering Facility: [facility] Address: [address] [place] [address] Performed By: #### 2 4323-8 ####[facility] LABCLIA [id number] [place] [address] [place] Bilirubin [Mass/Vol] 0.4 mg/dL Normal 0.2-1.3 [facility] Comment on above: Order Comment: Speci men Type: BLOOD SPECIMENOrdering Facility: [facility] Address: [address] [place] [address] Performed By: #### 2 4323-8 ####[facility] LABCLIA [id number] [place] [address] [place] Calcium [Mass/Vol] 8.2 mg/dL Low 8.5-10.2 [facility] Comment on above: Order Comment: Speci men Type: BLOOD SPECIMENOrdering Facility: [facility] Address: [address] [place] [address] Performed By: #### 2 4323-8 ####[facility] LABCLIA [id number] [place] [address] [place] Chloride [Moles/Vol] 106 mmol/L Normal 98-107 [facility] Comment on above: Order Comment: Speci men Type: BLOOD SPECIMENOrdering Facility: [facility] Address: [address] [place] [address] Performed By: #### 2 4323-8 ####[facility] LABCLIA [id number] [place] [address] [place] CO2 [Moles/Vol] 24 mmol/L Normal 22-30 [facility] Comment on above: Order Comment: Speci men Type: BLOOD SPECIMENOrdering Facility: [facility] Address: [address] [place] [address] Performed By: #### 2 4323-8 ####[facility] LABCLIA [id number] [place] [address] [place] Creatinine [Mass/Vol] 0.74 mg/dL Normal 0.58-0.96 [facility] Comment on above: Order Comment: Speci men Type: BLOOD SPECIMENOrdering Facility: [facility] Address: [address] [place] [address] Performed By: #### 2 4323-8 ####[facility] LABCLIA [id number] [place] [address] [place] Creatinine and Glomerular filtration rate.predicted panel (S/P/Bld) 96 mL/min/1.73m??? Normal >=60 [facility] Comment on above: Order Comment: Speci men Type: BLOOD SPECIMENOrdering Facility: [facility] Address: [address] [place] [address] Result Comment: Brandy mated Glomerular Filtration Rate (eGFR) is calculated using the 2020 CKD-EPI creatinine equation. This equation utilizes serum creatinine, sex, and age as parameters. The creatinine assay has traceable calibration to isotope dilution-mass spectrometry. Refer to KDIGO guidelines for clinical interpretation. In patients with unstable renal function, e.g. those with acute kidney injury, the eGFR may not accurately reflect actual GFR. Performed By: #### 2 4323-8 ####[facility] LABIA [id number] [place] [address] [place] Glucose [Mass/Vol] 120 mg/dL High 74-99 [facility] Comment on above: Order Comment: Speci men Type: BLOOD SPECIMENOrdering Facility: [facility] Address: [address] [place] [address] Result Comment: The [place] Diabetes Association (ADA) provides guidance for cutoff values for fasting glucose and random glucose. The ADA defines fasting as no caloric intake for at least 8 hours. Fasting plasma glucose results between 100 to 125 mg/dL indicate increased risk for diabetes (prediabetes).Fasting plasma glucose results greater than or equal to 126 mg/dL meet the criteria for diagnosis of diabetes. In the absence of unequivocal hyperglycemia, results should be confirmed by repeat testing. In a patient with classic symptoms of hyperglycemia or hyperglycemic crisis, random plasma glucose results greater than or equal to 200 mg/dL meet the criteria for diagnosis of diabetes.Reference: Standards of Medical Care in Diabetes 2016, [place] [employer]. Diabetes Care. 2016.39(Suppl 1). Performed By: #### 2 4323-8 ####[facility] LABIA [id number] [place] [address] [place] Potassium [Moles/Vol] 3.9 mmol/L Normal 3.7-5.1 [facility] Comment on above: Order Comment: Speci men Type: BLOOD SPECIMENOrdering Facility: [facility] Address: [address] [place] [address] Performed By: #### 2 4323-8 ####[facility] [id number] [place] [address] [place] Protein [Mass/Vol] 5.8 g/dL Low 6.3-8.0 [facility] Comment on above: Order Comment: Speci men Type: BLOOD SPECIMENOrdering Facility: [facility] Address: [address] [place] [address] Performed By: #### 2 4323-8 ####[facility] LABCLIA [id number] [place] [address] [place] Sodium [Moles/Vol] 139 mmol/L Normal 136-144 [facility] Comment on above: Order Comment: Speci men Type: BLOOD SPECIMENOrdering Facility: [facility] Address: [address] [place] [address] Performed By: #### 2 4323-8 ####[facility] LABIA [id number] [place] [address] [place] Urea nitrogen [Mass/Vol] 12 mg/dL Normal 7-21 [facility] Comment on above: Order Comment: Speci men Type: BLOOD SPECIMENOrdering Facility: [facility] Address: [address] [place] [address] Performed By: #### 2 4323-8 ####[facility] LABIA [id number] [place] [address] [place] ECG COMPLETEon 04-14-2024 ECG COMPLETE Normal [facility] Fibrinogen PPP-mCncon 2023 Fibrinogen Coag (PPP) [Mass/Vol] 204 mg/dL Normal 200-400 [facility] Comment on above: Order Comment: Speci men Type: BLOOD SPECIMENOrdering Facility: [facility] Address: [address] [place] [address] Performed By: #### 3 255-7 ####[facility] LABIA [id number] [place] [id number] [place] Gas and Carbon monoxide pane l (BldV)on 04-14-2024 BASE DEFICIT, VENOUS -5 mmol/L Low -2-0 [facility] Comment on above: Order Comment: Speci men Type: VENOUS BLOOD SPECIMENOrdering Facility: [facility] Address: [address] [place] [address] Performed By: #### 2 4344-4 ####[facility] LABCLIA [id number] [place] [address] [place] Calcium.ionized (Bld) [Mass/Vol] 1.14 mmol/L Normal 1.08-1.30 [facility] Comment on above: Order Comment: Speci men Type: VENOUS BLOOD SPECIMENOrdering Facility: [facility] Address: [address] [place] [address] Performed By: #### 2 4344-4 ####[facility] [id number] [place] [address] [place] Calcium.ionized adjusted to pH 7.4 (BldA) [Moles/Vol] 1.07 mmol/L Low 1.08-1.30 [facility] Comment on above: Order Comment: Speci men Type: VENOUS BLOOD SPECIMENOrdering Facility: [facility] Address: [address] [place] [address] Performed By: #### 2 4344-4 ####[facility] [id number] [place] [address] [place] Carboxyhemoglobin (BldV) [Mass fraction] 1.8 % Normal 0.0-2.0 [facility] Comment on above: Order Comment: Speci men Type: VENOUS BLOOD SPECIMENOrdering Facility: [facility] Address: [address] [place] [address] Result Comment: Carb oxyhemoglobin Reference Range for Smokers: 2.0-8.0% Performed By: #### 2 4344-4 ####[facility] [id number] [place] [address] [place] CO2 (BldV) [Partial pressure] 45 mm[Hg] Normal 42-55 [facility] Comment on above: Order Comment: Speci men Type: VENOUS BLOOD SPECIMENOrdering Facility: [facility] Address: [address] [place] [address] Performed By: #### 2 4344-4 ####[facility] LABIA [id number] [place] [address] [place] CO2 adjusted to patient's actual temperature (BldV) [Partial pressure] 45 mmHg Normal 42-55 [facility] Comment on above: Order Comment: Speci men Type: VENOUS BLOOD SPECIMENOrdering Facility: [facility] Address: [address] [place] [address] Performed By: #### 2 4344-4 ####[facility] LABCLIA [id number] [place] [address] [place] Glucose [Mass/Vol] 131 mg/dL High 60-105 [facility] Comment on above: Order Comment: Speci men Type: VENOUS BLOOD SPECIMENOrdering Facility: [facility] Address: [address] [place] [address] Performed By: #### 2 4344-4 ####[facility] LABCLIA [id number] [place] [address] [place] HCO3 (Bld) [Moles/Vol] 21 mmol/L Low 24-28 [facility] Comment on above: Order Comment: Speci men Type: VENOUS BLOOD SPECIMENOrdering Facility: [facility] Address: [address] [place] [address] Performed By: #### 2 4344-4 ####[facility] LABCLIA [id number] [place] [address] [place] Hematocrit (Bld) [Volume fraction] 33.8 % Low 36.0-46.0 [facility] Comment on above: Order Comment: Speci men Type: VENOUS BLOOD SPECIMENOrdering Facility: [facility] Address: [address] [place] [address] Performed By: #### 2 4344-4 ####[facility] LABCLIA [id number] [place] [address] [place] Hemoglobin (Bld) [Mass/Vol] 11.0 g/dL Low 11.5-15.5 [facility] Comment on above: Order Comment: Speci men Type: VENOUS BLOOD SPECIMENOrdering Facility: [facility] Address: [address] [place] [address] Performed By: #### 2 4344-4 ####[facility] LABCLIA [id number] [address] [address] [place] Methemoglobin (Bld) [Mass fraction] 1.9 % High 0.0-1.5 [facility] Comment on above: Order Comment: Speci men Type: VENOUS BLOOD SPECIMENOrdering Facility: [facility] Address: [address] [place] [id number] Performed By: #### 2 4344-4 ####[facility] LABCLIA [id number] [address] [address] [place] Oxygen (BldV) [Partial pressure] 56 mm[Hg] High 35-45 [facility] Comment on above: Order Comment: Speci men Type: VENOUS BLOOD SPECIMENOrdering Facility: [facility] Address: [address] [place], [place] [address] Performed By: #### 2 4344-4 ####[facility] LABCLIA [id number] [place] [id number] [place] Oxygen adjusted to patient's actual temperature (BldV) [Partial pressure] 56 mmHg High 35-45 [facility] Comment on above: Order Comment: Speci men Type: VENOUS BLOOD SPECIMENOrdering Facility: [facility] Address: [address] [place] [id number] Performed By: #### 2 4344-4 ####[facility] LABCLIA [id number] [address] [address] [place] Oxygen saturation in Venous blood 84 % Normal 60-85 [facility] Comment on above: Order Comment: Speci men Type: VENOUS BLOOD SPECIMENOrdering Facility: [facility] Address: [address] [place] [address] Performed By: #### 2 4344-4 ####[facility] LABCLIA [id number] [place] [address] [place] Oxyhemoglobin (BldV) [Mass fraction] 81 % Normal 60-85 [facility] Comment on above: Order Comment: Speci men Type: VENOUS BLOOD SPECIMENOrdering Facility: [facility] Address: [address] [place] [address] Performed By: #### 2 4344-4 ####[facility] LABCLIA [id number] [place] [address] [place] pH (BldV) 7.29 [pH] Low 7.32-7.42 [facility] Comment on above: Order Comment: Speci men Type: VENOUS BLOOD SPECIMENOrdering Facility: [facility] Address: [address] [place] [address] Performed By: #### 2 4344-4 ####[facility] LABIA [id number] [place] [address] [place] pH adjusted to patient's actual temperature (BldV) 7.29 Low 7.32-7.42 [facility] Comment on above: Order Comment: Speci men Type: VENOUS BLOOD SPECIMENOrdering Facility: [facility] Address: [address] [place] [address] Performed By: #### 2 4344-4 ####[facility] LABIA [id number] [place] [address] [place] Potassium [Moles/Vol] 3.4 mmol/L Low 3.5-5.0 [facility] Comment on above: Order Comment: Speci men Type: VENOUS BLOOD SPECIMENOrdering Facility: [facility] Address: [address] [place] [address] Performed By: #### 2 4344-4 ####[facility] LABCLIA [id number] [place] [address] [place] Sodium [Moles/Vol] 140 mmol/L Normal 136-144 [facility] Comment on above: Order Comment: Speci men Type: VENOUS BLOOD SPECIMENOrdering Facility: [facility] Address: [address] [place] [address] Performed By: #### 2 4344-4 ####[facility] LABCLIA [id number] [place] [address] [place] HIGH SENSITIVITY TROPONIN To n 04-14-2024 Troponin T.cardiac High sensitivity method [Mass/Vol] 946 ng/L High <12 [facility] Comment on above: Order Comment: Speci men Type: BLOOD SPECIMENOrdering Facility: [facility] Address: [address] [place] [address] Performed By: #### H STNT ####[facility] LABIA [id number] [place] [address] [place] INTRAOPERATIVE ECHO PREon INTRAOPERATIVE ECHO PRE Normal [facility] OPERATIVE NOon 04-14-2024 OPERATIVE NO Normal [facility] Platelets Auto (Bld) [#/Vol] on 04-14-2024 Platelets (Bld) [#/Vol] 164 10*3/uL Normal 150-400 [facility] Comment on above: Order Comment: Speci men Type: BLOOD SPECIMENOrdering Facility: [facility] Address: [address] [place] [address] Performed By: #### 7 77-3 ####[facility] LABIA [id number] [place] [address] [place] THROMBOGRAPH HEPARINASE PANE Zay 04-14-2024 Clot angle after addition of heparinase TEG (Bld) [Angle] 68.6 degrees Normal 47.0-74.0 [facility] Comment on above: Order Comment: Speci men Type: BLOOD SPECIMENOrdering Facility: [facility] Address: [address] [place] [address] Performed By: #### T EGHPP ####[facility] LABIA [id number] [place] [address] [place] Clot Lysis 30 Min post maximum clot amplitude TEG (Bld) [Length fraction] 4.4 % Normal 0.0-8.0 [facility] Comment on above: Order Comment: Speci men Type: BLOOD SPECIMENOrdering Facility: [facility] Address: [address] [place] [address] Performed By: #### T EGHPP ####[facility] LABIA [id number] [address] [place] Clotting time after addition of heparinase TEG (Bld) 5.3 minutes Normal 4.0-10.0 [facility] Comment on above: Order Comment: Speci men Type: BLOOD SPECIMENOrdering Facility: [facility] Address: [address] [place] [address] Performed By: #### T EGHPP ####[facility] [id number] [address] [place] Coagulation index TEG Qn (Bld) 0.8 Normal -4.6-3.2 [facility] Comment on above: Order Comment: Speci men Type: BLOOD SPECIMENOrdering Facility: [facility] Address: [address] [place] [address] Result Comment: The Coagulation Index, a secondary parameter, is labeled by the lawnmower mechanic as for research use only and is used per the lawnmower mechanic's instructions. Its performance characteristics were determined by [facility]'s [facility] Pathology and Laboratory Medicine [place] in a manner consistent with CLIA requirements. This test has not been cleared by the U.S. Food and Drug Administration. Performed By: #### T EGHPP ####[facility] LABIA [id number] [address] [place] Maximum clot firmness after addition of heparinase TEG (Bld) [Length] 60.9 mm Normal 51.0-75.0 [facility] Comment on above: Order Comment: Speci men Type: BLOOD SPECIMENOrdering Facility: [facility] Address: [address] [place] [address] Performed By: #### T EGP ####[facility] LABCLIA [id number] [place] [address] [place] Thromboelastography after addtion of heparinase panel (Bld) Normal [facility] Comment on above: Order Comment: Speci men Type: BLOOD SPECIMENOrdering Facility: [facility] Address: [address] [place] [address] Result Comment: A th romboelastograph (TEG) study was performed using a citrate-anticoagulated whole blood treated with heparinase to neutralize a heparin effect.The R value decreased to between 4.0 and 10.0 minutes after sample treatment with heparinase. This is consistent with heparin therapy with adequate residual hemostasis. The angle, a measure of fibrinogen function, is within normal range. This is indicative of normal fibrinogen concentration or function. The Maximal Amplitude (MA), a measure of platelet function, is within the normal range. The Ly30, a measure of fibrinolysis, is normal. This is indicative of normal fibrinolytic function. The coagulation index (CI), a measure of hemostasis function, is within the normal range. The CI is a calculated parameter based on the other TEG results.Viscoelastic testing is not intended for the monitoring of anticoagulation or antiplatelet medications or the diagnosis and/or management of platelet disorders and/or coagulopathies but may be useful for guiding blood product utilization in emergency and urgent (OR) circumstances when routine coagulation and cell blood counts are not available in a timely manner. Performed By: #### T EGP ####[facility] LABCLIA [id number] [place] [address] [place] XR CHEST 1V FRONTAL PORTon 0 04-14-2024 XR CHEST 1V FRONTAL PORT Normal [facility] CNCNPATEDon 04-13-2024 CNCNPATED Normal [facility] CNOVon 04-13-2024 CNOV Normal [facility] CNOV Normal [facility] STAPHYLOCOCCUS AUREUS AND M RSA SCREEN, PCR, NASALon 04-13-2024 S. aureus and MRSA panel BAM+probe (Nose) Methicillin-SUSCEPTIBL E Staphylococcus aureus Detected Abnormal Not Detected [facility] Comment on above: Order Comment: Speci men Type: SWABOrdering Facility: [facility] Address: [address] [place] [address] Performed By: #### S APCR ####[facility] LABCLIA [id number] [place] [address] [place] CBC W Auto Differential pane l (Bld)on 04-12-2024 Basophils (Bld) [#/Vol] 0.07 10*3/uL Normal <0.11 [facility] Comment on above: Order Comment: Speci men Type: BLOOD SPECIMENOrdering Facility: [facility] Address: [address] [place] [address] Performed By: #### 5 7021-8 ####[facility] LABCLIA [id number] [place] [address] [place] Basophils/100 WBC (Bld) 1.4 % Normal [facility] Comment on above: Order Comment: Speci men Type: BLOOD SPECIMENOrdering Facility: [facility] Address: [address] [place] [address] Performed By: #### 5 7021-8 ####[facility] LABCLIA [id number] [place] [address] [place] Differential cell count method Nom (Bld) Auto Normal [facility] Comment on above: Order Comment: Speci men Type: BLOOD SPECIMENOrdering Facility: [facility] Address: [address] [place] [address] Performed By: #### 5 7021-8 ####[facility] LABCLIA [id number] [place] [address] [place] Eosinophils (Bld) [#/Vol] 0.32 10*3/uL Normal <0.46 [facility] Comment on above: Order Comment: Speci men Type: BLOOD SPECIMENOrdering Facility: [facility] Address: [address] [place] [address] Performed By: #### 5 7021-8 ####[facility] LABCLIA [id number] [place] [address] [place] Eosinophils/100 WBC (Bld) 6.2 % Normal [facility] Comment on above: Order Comment: Speci men Type: BLOOD SPECIMENOrdering Facility: [facility] Address: [address] [place] [address] Performed By: #### 5 7021-8 ####[facility] LABCLIA [id number] [place] [address] [place] Erythrocyte distribution width (RBC) [Ratio] 12.6 % Normal 11.5-15.0 [facility] Comment on above: Order Comment: Speci men Type: BLOOD SPECIMENOrdering Facility: [facility] Address: [address] [place] [address] Performed By: #### 5 7021-8 ####[facility] LABIA [id number] [place] [address] [place] Hematocrit (Bld) [Volume fraction] 39.4 % Normal 36.0-46.0 [facility] Comment on above: Order Comment: Speci men Type: BLOOD SPECIMENOrdering Facility: [facility] Address: [address] [place] [address] Performed By: #### 5 7021-8 ####[facility] LABCLIA [id number] [place] [address] [place] Hemoglobin (Bld) [Mass/Vol] 13.8 g/dL Normal 11.5-15.5 [facility] Comment on above: Order Comment: Speci men Type: BLOOD SPECIMENOrdering Facility: [facility] Address: [address] [place] [address] Performed By: #### 5 7021-8 ####[facility] LABCLIA [id number] [place] [address] [place] Immature granulocytes (Bld) [#/Vol] 10*3/uL Normal <0.10 [facility] Comment on above: Order Comment: Speci men Type: BLOOD SPECIMENOrdering Facility: [facility] Address: [address] [place] [address] Performed By: #### 5 7021-8 ####[facility] LABCLIA [id number] [place] [address] [place] Immature granulocytes/100 WBC (Bld) 0.2 % Normal [facility] Comment on above: Order Comment: Speci men Type: BLOOD SPECIMENOrdering Facility: [facility] Address: [address] [place] [address] Performed By: #### 5 7021-8 ####[facility] LABCLIA [id number] [place] [address] [place] Lymphocytes (Bld) [#/Vol] 1.80 10*3/uL Normal 1.00-4.00 [facility] Comment on above: Order Comment: Speci men Type: BLOOD SPECIMENOrdering Facility: [facility] Address: [address] [place] [address] Performed By: #### 5 7021-8 ####[facility] LABCLIA [id number] [place] [address] [place] Lymphocytes/100 WBC (Bld) 35.1 % Normal [facility] Comment on above: Order Comment: Speci men Type: BLOOD SPECIMENOrdering Facility: [facility] Address: [address] [place] [address] Performed By: #### 5 7021-8 ####[facility] LABCLIA [id number] [place] [address] [place] MCH (RBC) [Entitic mass] 35.5 pg High 26.0-34.0 [facility] Comment on above: Order Comment: Speci men Type: BLOOD SPECIMENOrdering Facility: [facility] Address: [address] [place] [address] Performed By: #### 5 7021-8 ####[facility] LABCLIA [id number] [place] [address] [place] MCHC (RBC) [Mass/Vol] 35.0 g/dL Normal 30.5-36.0 [facility] Comment on above: Order Comment: Speci men Type: BLOOD SPECIMENOrdering Facility: [facility] Address: [address] [place] [address] Performed By: #### 5 7021-8 ####[facility] LABIA [id number] [place] [address] [place] MCV (RBC) [Entitic vol] 101.3 fL High 80.0-100.0 [facility] Comment on above: Order Comment: Speci men Type: BLOOD SPECIMENOrdering Facility: [facility] Address: [address] [place] [address] Performed By: #### 5 7021-8 ####[facility] LABIA [id number] [place] [address] [place] Monocytes (Bld) [#/Vol] 0.61 10*3/uL Normal <0.87 [facility] Comment on above: Order Comment: Speci men Type: BLOOD SPECIMENOrdering Facility: [facility] Address: [address] [place] [address] Performed By: #### 5 7021-8 ####[facility] LABIA [id number] [place] [address] [place] Monocytes/100 WBC (Bld) 11.9 % Normal [facility] Comment on above: Order Comment: Speci men Type: BLOOD SPECIMENOrdering Facility: [facility] Address: [address] [place] [address] Performed By: #### 5 7021-8 ####[facility] LABIA [id number] [place] [address] [place] Neutrophils (Bld) [#/Vol] 2.32 10*3/uL Normal 1.45-7.50 [facility] Comment on above: Order Comment: Speci men Type: BLOOD SPECIMENOrdering Facility: [facility] Address: [address] [place] [address] Performed By: #### 5 7021-8 ####[facility] LABCLIA [id number] [place] [address] [place] Neutrophils/100 WBC (Bld) 45.2 % Normal [facility] Comment on above: Order Comment: Speci men Type: BLOOD SPECIMENOrdering Facility: [facility] Address: [address] [place] [address] Performed By: #### 5 7021-8 ####[facility] LABCLIA [id number] [place] [address] [place] Nucleated RBC (Bld) [#/Vol] 10*3/uL Normal <0.01 [facility] Comment on above: Order Comment: Speci men Type: BLOOD SPECIMENOrdering Facility: [facility] Address: [address] [place] [address] Performed By: #### 5 7021-8 ####[facility] LABCLIA [id number] [place] [address] [place] Nucleated RBC/100 WBC (Bld) [Ratio] 0.0 /100 WBC Normal [facility] Comment on above: Order Comment: Speci men Type: BLOOD SPECIMENOrdering Facility: [facility] Address: [address] [place] [address] Performed By: #### 5 7021-8 ####[facility] LABIA [id number] [place] [address] [place] Platelet mean volume (Bld) [Entitic vol] 9.7 fL Normal 9.0-12.7 [facility] Comment on above: Order Comment: Speci men Type: BLOOD SPECIMENOrdering Facility: [facility] Address: [address] [place] [address] Performed By: #### 5 7021-8 ####[facility] LABCLIA [id number] [address] [address] [place] Platelets (Bld) [#/Vol] 237 10*3/uL Normal 150-400 [facility] Comment on above: Order Comment: Speci men Type: BLOOD SPECIMENOrdering Facility: [facility] Address: [address] [place] [address] Performed By: #### 5 7021-8 ####[facility] LABCLIA [id number] [place] [address] [place] RBC (Bld) [#/Vol] 3.89 10*6/uL Low 3.90-5.20 [facility] Comment on above: Order Comment: Speci men Type: BLOOD SPECIMENOrdering Facility: [facility] Address: [address] [place] [address] Performed By: #### 5 7021-8 ####[facility] LABCLIA [id number] [place] [address] [place] WBC (Bld) [#/Vol] 5.13 10*3/uL Normal 3.70-11.00 [facility] Comment on above: Order Comment: Speci men Type: BLOOD SPECIMENOrdering Facility: [facility] Address: [address] [place] [address] Performed By: #### 5 7021-8 ####[facility] LABCLIA [id number] [place] [id number] [place] CNOVon 04-12-2024 CNOV Normal [facility] CONFIRM BLOOD TYPEon 024 ABO A Normal [facility] Comment on above: Order Comment: Speci men Type: BLOOD SPECIMENOrdering Facility: [facility] Address: [address] [place] [address] Performed By: #### C ONABO ####[facility] BLOOD BANKCLIA [id number] [place] [address] [place] Rh Nom (Bld) Negative Normal [facility] Comment on above: Order Comment: Speci men Type: BLOOD SPECIMENOrdering Facility: [facility] Address: [address] [place] [address] Performed By: #### C ONABO ####[facility] MAIN BLOOD BANKCLIA [id number] [place] [address] [place] CTA C/A/P (GATED) W IVCONon 04-12-2024 CTA C/A/P (GATED) W IVCON Normal [facility] CTA Chest vessels and Abdomi nal vessels and Pelvis vessels W contrast [place] 04-12-2024 IMPRESSION: Mildly dilated aortic root 4.3x4.2 cm measured ptjyj-de-weuid . Tricuspid aortic valve [employer]: CHERYL Transcribe Date/Time: Apr 12 2024 11:17A Dictated by : CHERYL SOLANO MD This examination was interpreted and the report reviewed and electronically signed by: CHERYL SOLANO MD on Apr 12 2024 11:40AM [facility] DIVISION OF RADIOLOGY * * *Final Report* * * DATE OF EXAM: Apr 12 2024 10:31AM JQC 0133 - CTA C/A/P (GATED) W IVCON / PROCEDURE REASON: multiple diagnoses * * * * Physician Interpretation * * * * CTA Aorta chest , abdomen, and pelvis Direct Image Comparison: HISTORY: 53 years old Female with h/o suspected aortic disease Evaluation for further treatment options. There is request to define thoracic and aortic anatomy TECHNIQUE: SCANNER: Multi-detector scanner PROTOCOL: Sequential imaging of the chest with prospective triggering in diastolic phase following the intravenous administration of contrast material. Additional non-gated imaging of the abdomen and pelvis. Scan Range: thoracic inlet through the ischial tuberosities CT Dose-Length Product (DLP): 1328 mGy*cm CT Dose Reduction Employed: Automated exposure control (AEC) CONTRAST: IV administration of 140 ml Omnipaque 350 Scan acquisition: uncomplicated Macro Version: [id number]:[id number]_[id number] For optimization of anatomic evaluation, advanced 3-D off-line postprocessing was performed on a dedicated workstation by the interpreting physician. STUDY LIMITATIONS: None. RESULT: LINES, TUBES and DEVICES: None CHEST: Chest wall anatomy: unremarkable. LUNGS: unremarkable. Reticulonodular pattern seen at the base of RLL lobe MEDIASTINUM: unremarkable. PERICARDIUM: unremarkable CENTRAL PULMONARY ARTERY: normal dimensions. Assessment is limited due to limited contrast enhancement. CARDIAC CHAMBERS: assessment is limited in the non-gated study. LEFT VENTRICLE: normal size. Right ventricle: normal size Left Atrium: mildly dilated. ANTOINETTE: normal. Right Atrium: mildly dilated CENTRAL VENOUS and PULMONARY VENOUS RETURN: normal. Coronary Sinus: normal size MITRAL VALVE: unremarkable - no leaflet calcification. No annular calcification TRICUSPID and PULMONIC VALVE: appear unremarkable. CORONARY ANATOMY: normal origin of the coronary arteries. Mild calcified atherosclerotic changes of the coronary arteries. However, the current study is not optimized for coronary assessment. AORTIC VALVE: assessment is limited in the current study. No leaflet calcification. AORTA: Pathology: No acute aortic pathology. Intervention: None Complications: n/a Aortic Size: Ectasia/Mild Dilation aortic root. STJ: maintained. Wall Changes: Mild partially calcified wall changes abdominal aorta. Arch Branch Vessels: Patent, normal size proximal segments of the arch branch vessels, without evidence of wall changes. Normal origin of the arch branch vessels. Visceral Branch Vessels: Patent, normal size proximal segments of the visceral branch vessels and renal arteries, without evidence of wall changes. Normal origin of the visceral branch vessels and renal arteries. Iliac Arteries: Patent, normal size iliac arteries, with minimal partially calcified wall changes. AORTIC DIMENSIONS: AORTIC ROOT: 4.3x4.2 cm measured pzhxa-wx-xeufg mid ASCENDING THORACIC AORTA: 3.5 cm mid AORTIC ARCH: 3.0 cm mid DESCENDING THORACIC AORTA: 2.4 cm JUXTARENAL ABDOMINAL AORTA (level of SMA): 2.0 cm mid INFRARENAL ABDOMINAL AORTA: 1.7 cm Both EIA: 9 mm ABDOMEN Gallbladder: unremarkable. Liver: unremarkable. Spleen: unremarkable. Adrenal glands: unremarkable. Pancreas: unremarkable. Kidneys: unremarkable. Bowel: appears unremarkable within limitations of non-GI contrast examination. PELVIS: Bladder: unremarkable. BONES and SOFT TISSUES: unremarkable, within limitations of the current study Hypoid Gear Tester (topogram) images: No additional findings. DIVISION OF RADIOLOGY Provider, [facility] - 04/12/2024 * * *Final Report* * * DATE OF EXAM: Apr 12 2024 10:31AM JQC 0133 - CTA C/A/P (GATED) W IVCON / PROCEDURE REASON: multiple diagnoses * * * * Physician Interpretation * * * * CTA Aorta chest , abdomen, and pelvis Direct Image Comparison: HISTORY: 53 years old Female with h/o suspected aortic disease Evaluation for further treatment options. There is request to define thoracic and aortic anatomy TECHNIQUE: SCANNER: Multi-detector scanner PROTOCOL: Sequential imaging of the chest with prospective triggering in diastolic phase following the intravenous administration of contrast material. Additional non-gated imaging of the abdomen and pelvis. Scan Range: thoracic inlet through the ischial tuberosities CT Dose-Length Product (DLP): 1328 mGy*cm CT Dose Reduction Employed: Automated exposure control (AEC) CONTRAST: IV administration of 140 ml Omnipaque 350 Scan acquisition: uncomplicated Macro Version: [id number] For optimization of anatomic evaluation, advanced 3-D off-line postprocessing was performed on a dedicated workstation by the interpreting physician. STUDY LIMITATIONS: None. RESULT: LINES, TUBES and DEVICES: None CHEST: Chest wall anatomy: unremarkable. LUNGS: unremarkable. Reticulonodular pattern seen at the base of RLL lobe MEDIASTINUM: unremarkable. PERICARDIUM: unremarkable CENTRAL PULMONARY ARTERY: normal dimensions. Assessment is limited due to limited contrast enhancement. CARDIAC CHAMBERS: assessment is limited in the non-gated study. LEFT VENTRICLE: normal size. Right ventricle: normal size Left Atrium: mildly dilated. ANTOINETTE: normal. Right Atrium: mildly dilated CENTRAL VENOUS and PULMONARY VENOUS RETURN: normal. Coronary Sinus: normal size MITRAL VALVE: unremarkable - no leaflet calcification. No annular calcification TRICUSPID and PULMONIC VALVE: appear unremarkable. CORONARY ANATOMY: normal origin of the coronary arteries. Mild calcified atherosclerotic changes of the coronary arteries. However, the current study is not optimized for coronary assessment. AORTIC VALVE: assessment is limited in the current study. No leaflet calcification. AORTA: Pathology: No acute aortic pathology. Intervention: None Complications: n/a Aortic Size: Ectasia/Mild Dilation aortic root. STJ: maintained. Wall Changes: Mild partially calcified wall changes abdominal aorta. Arch Branch Vessels: Patent, normal size proximal segments of the arch branch vessels, without evidence of wall changes. Normal origin of the arch branch vessels. Visceral Branch Vessels: Patent, normal size proximal segments of the visceral branch vessels and renal arteries, without evidence of wall changes. Normal origin of the visceral branch vessels and renal arteries. Iliac Arteries: Patent, normal size iliac arteries, with minimal partially calcified wall changes. AORTIC DIMENSIONS: AORTIC ROOT: 4.3x4.2 cm measured jjzmd-nu-ilabo mid ASCENDING THORACIC AORTA: 3.5 cm mid AORTIC ARCH: 3.0 cm mid DESCENDING THORACIC AORTA: 2.4 cm JUXTARENAL ABDOMINAL AORTA (level of SMA): 2.0 cm mid INFRARENAL ABDOMINAL AORTA: 1.7 cm Both EIA: 9 mm ABDOMEN Gallbladder: unremarkable. Liver: unremarkable. Spleen: unremarkable. Adrenal glands: unremarkable. Pancreas: unremarkable. Kidneys: unremarkable. Bowel: appears unremarkable within limitations of non-GI contrast examination. PELVIS: Bladder: unremarkable. BONES and SOFT TISSUES: unremarkable, within limitations of the current study Hypoid Gear Tester (topogram) images: No additional findings. IMPRESSION IMPRESSION: Mildly dilated aortic root 4.3x4.2 cm measured [id number]-[id number]-axgqu . Tricuspid aortic valve [employer]: CHERYL Transcribe Date/Time: Apr 12 2024 11:17A Dictated by : CHERYL SOLANO MD This examination was interpreted and the report reviewed and electronically signed by: CHERYL SOLANO MD on Apr 12 2024 11:40AM EST [facility] Radiology Study observation (narrative) [facility] CTA Chest vessels and Abdomi nal vessels and Pelvis vessels W contrast IVOrdered By: Ccf Provider on 04-12-2024 [facility] Comprehensive metabolic 2000 panelon 04-12-2024 Albumin [Mass/Vol] 4.4 g/dL Normal 3.9-4.9 [facility] Comment on above: Order Comment: Speci men Type: BLOOD SPECIMENOrdering Facility: [facility] Address: [address] [place] [address] Performed By: #### 2 4323-8, ####[facility] LABCLIA [id number] [facility] [id number] [place] [address] [place] ALP [Catalytic activity/Vol] 78 U/L Normal 34-123 [facility] Comment on above: Order Comment: Speci men Type: BLOOD SPECIMENOrdering Facility: [facility] Address: [address] [place] [address] Performed By: #### 2 4323-, 2532-0 ####[facility] LABCLIA [id number] [facility] [address] [address] [place] ALT [Catalytic activity/Vol] 26 U/L Normal 7-38 [facility] Comment on above: Order Comment: Speci men Type: BLOOD SPECIMENOrdering Facility: [facility] Address: [address] [place] [address] Performed By: #### 2 4328, 2531-0 ####[facility] LABCLIA [id number] [facility] [place] [id number] [place] Anion gap [Moles/Vol] 14 mmol/L Normal 8-15 [facility] Comment on above: Order Comment: Speci men Type: BLOOD SPECIMENOrdering Facility: [facility] Address: [address] [place] [address] Performed By: #### 2 4328, 0 ####[facility] LABCLIA [id number] [place] [address] [place] AST [Catalytic activity/Vol] 29 U/L Normal 13-35 [facility] Comment on above: Order Comment: Speci men Type: BLOOD SPECIMENOrdering Facility: [facility] Address: [address] [place] [address] Performed By: #### 2 4328, 2531-0 ####[facility] LABCLIA [id number] [place] [id number] [place] Bilirubin [Mass/Vol] 0.6 mg/dL Normal 0.2-1.3 [facility] Comment on above: Order Comment: Speci men Type: BLOOD SPECIMENOrdering Facility: [facility] Address: [address] [place] [address] Performed By: #### 2 4323-8, 2531-0 ####[facility] LABCLIA [id number] [place] [id number] [place] Calcium [Mass/Vol] 9.6 mg/dL Normal 8.5-10.2 [facility] Comment on above: Order Comment: Speci men Type: BLOOD SPECIMENOrdering Facility: [facility] Address: [address] [place] [address] Performed By: #### 2 4323-8, 2531-0 ####[facility] LABCLIA [id number] [place] [address] [place] Chloride [Moles/Vol] 103 mmol/L Normal 98-107 [facility] Comment on above: Order Comment: Speci men Type: BLOOD SPECIMENOrdering Facility: [facility] Address: [address] [place] [address] Performed By: #### 2 432-8, 0 ####[facility] LABCLIA [id number] [place] [address] [place] CO2 [Moles/Vol] 24 mmol/L Normal 22-30 [facility] Comment on above: Order Comment: Speci men Type: BLOOD SPECIMENOrdering Facility: [facility] Address: [address] [place] [address] Performed By: #### 2 432-8, 0 ####[facility] LABCLIA [id number] [place] [address] [place] Creatinine [Mass/Vol] 0.88 mg/dL Normal 0.58-0.96 [facility] Comment on above: Order Comment: Speci men Type: BLOOD SPECIMENOrdering Facility: [facility] Address: [address] [place] [address] Performed By: #### 2 4323-8, 0 ####[facility] LABCLIA [id number] [place] [address] [place] Creatinine and Glomerular filtration rate.predicted panel (S/P/Bld) 78 mL/min/1.73m??? Normal >=60 [facility] Comment on above: Order Comment: Speci men Type: BLOOD SPECIMENOrdering Facility: [facility] Address: [address] [place] [id number] Result Comment: Brandy mated Glomerular Filtration Rate (eGFR) is calculated using the 2020 CKD-EPI creatinine equation. This equation utilizes serum creatinine, sex, and age as parameters. The creatinine assay has traceable calibration to isotope dilution-mass spectrometry. Refer to KDIGO guidelines for clinical interpretation. In patients with unstable renal function, e.g. those with acute kidney injury, the eGFR may not accurately reflect actual GFR. Performed By: #### 2 4323-8, 253-0 ####[facility] [id number] [place] [address] [place] Glucose [Mass/Vol] 88 mg/dL Normal 74-99 [facility] Comment on above: Order Comment: Jovanny kwon Type: BLOOD SPECIMENOrdering Facility: [facility] Address: [address] [place] [address] Result Comment: The [place] Diabetes Association (ADA) provides guidance for cutoff values for fasting glucose and random glucose. The ADA defines fasting as no caloric intake for at least 8 hours. Fasting plasma glucose results between 100 to 125 mg/dL indicate increased risk for diabetes (prediabetes).Fasting plasma glucose results greater than or equal to 126 mg/dL meet the criteria for diagnosis of diabetes. In the absence of unequivocal hyperglycemia, results should be confirmed by repeat testing. In a patient with classic symptoms of hyperglycemia or hyperglycemic crisis, random plasma glucose results greater than or equal to 200 mg/dL meet the criteria for diagnosis of diabetes.Reference: Standards of Medical Care in Diabetes 2016, [place] [employer] Association. Diabetes Care. 2016.39(Suppl 1). Performed By: #### 2 4323-8, 2531-0 ####[facility] [id number] [address] [address] [place] Potassium [Moles/Vol] 3.9 mmol/L Normal 3.7-5.1 [facility] Comment on above: Order Comment: Jovanny kwon Type: BLOOD SPECIMENOrdering Facility: [facility] Address: [address] [place] [address] Performed By: #### 2 4323-8, 2531-0 ####[facility] LABCLIA [id number] [address] [address] [place] Protein [Mass/Vol] 7.4 g/dL Normal 6.3-8.0 [facility] Comment on above: Order Comment: Speci men Type: BLOOD SPECIMENOrdering Facility: [facility] Address: [address] [place] [address] Performed By: #### 2 4323-8, 2531-0 ####[facility] LABIA [id number] [place] [address] [place] Sodium [Moles/Vol] 141 mmol/L Normal 136-144 [facility] Comment on above: Order Comment: Speci men Type: BLOOD SPECIMENOrdering Facility: [facility] Address: [address] [place] [address] Performed By: #### 2 4323-8, 2531-0 ####[facility] LABIA [id number] [place] [id number] [place] Urea nitrogen [Mass/Vol] 12 mg/dL Normal 7-21 [facility] Comment on above: Order Comment: Speci men Type: BLOOD SPECIMENOrdering Facility: [facility] Address: [address] [place] [address] Performed By: #### 2 4323-8, 2531-0 ####[facility] LABIA [id number] [address] [address] [place] [id number] 04-12-2024 ECG01 Normal [facility] LDH SerPl-cCncon 04-12-2024 LDH [Catalytic activity/Vol] 191 U/L Normal 135-214 [facility] Comment on above: Order Comment: Speci men Type: BLOOD SPECIMENOrdering Facility: [facility] Address: [address] [place] [address] Performed By: #### 2 4323-8, 2531-0 ####[facility] LABCLIA [id number] [place] [id number] [place] PT panel Coag (PPP)on 2023 INR Coag (PPP) [Relative time] 1.0 {INR} Normal 0.9-1.3 [facility] Comment on above: Order Comment: Speci men Type: BLOOD SPECIMENOrdering Facility: [facility] Address: [address] [place] [address] Result Comment: Adina min K Antagonist (VKA) Therapeutic Range: INR 2 to 3 (Target INR of 2.5)Note: For patients treated with VKA drugs, such as warfarin, the [place] [employer] 2012 Guideline recommends a therapeutic INR range of 2 to 3 (target INR of 2.5). This recommendation includes high-risk patients with antiphospholipid syndrome with previous arterial or venous thromboembolism, current-generation mechanical or bioprosthetic aortic heart valve replacement.Note: Patients with mechanical aortic valve replacement and additional risk factors for thromboembolic events (atrial fibrillation, previous thromboembolism, LV dysfunction, hypercoagulable conditions) or an older generation mechanical AVR (i.e., ball in-Cage) or any mechanical MVR should have a INR therapeutic range of 2.5 to 3.5 (target INR of 3).Boni GH, et al. Chest 2012, 141:7S-47SMargaret RA, et al. [facility] 2017, 70: 252-289 Performed By: #### 1 4979-9, 04395-9 ####[facility] LABCLIA [id number] [place] [id number] [place] PT Coag (PPP) [Time] 10.4 s Normal 9.7-13.0 [facility] Comment on above: Order Comment: Specnaima men Type: BLOOD SPECIMENOrdering Facility: [facility] Address: [address] [id number] Performed By: #### 1 4979-9, 66980-2 ####[facility] LABCLIA [id number] [place] [id number] [place] TYPE AND SCREEN,30 DAYon ABO A Normal [facility] Comment on above: Order Comment: Speci men Type: BLOOD SPECIMENOrdering Facility: [facility] Address: [address] [place] [address] Performed By: #### T SCR30 ####[facility] BLOOD BANKCLIA [id number] [place] [address] [place] HISTORICAL AB SCR STATUS Negative Normal [facility] Comment on above: Order Comment: Speci men Type: BLOOD SPECIMENOrdering Facility: [facility] Address: [address] [place] [address] Performed By: #### T SCR30 ####[facility] BLOOD BANKIA [id number] [place] [address] [place] Rh Nom (Bld) Negative Normal [facility] Comment on above: Order Comment: Speci men Type: BLOOD SPECIMENOrdering Facility: [facility] Address: [address] [place] [address] Performed By: #### T SCR30 ####[facility] BLOOD BANKIA [id number] [place] [address] [place] URINALYSIS, DIPSTICK ONLYon 04-12-2024 Bilirubin Ql (U) Negative Normal Negative [facility] Comment on above: Order Comment: Speci men Type: URINE SPECIMENOrdering Facility: [facility] Address: [address] [place] [address] Performed By: #### U A ####[facility] LABCLIA [id number] [place] [address] [place] Clarity (Unsp spec) Clear Normal Clear [facility] Comment on above: Order Comment: Speci men Type: URINE SPECIMENOrdering Facility: [facility] Address: [address] [place] [address] Performed By: #### U A ####[facility] LABCLIA [id number] [place] [address] [place] Color (U) Yellow Normal Yellow [facility] Comment on above: Order Comment: Speci men Type: URINE SPECIMENOrdering Facility: [facility] Address: [address] [place] [address] Performed By: #### U A ####[facility] LABCLIA [id number] [place] [address] [place] Glucose Test strip (U) [Mass/Vol] Negative Normal Negative [facility] Comment on above: Order Comment: Speci men Type: URINE SPECIMENOrdering Facility: [facility] Address: [address] [place] [address] Performed By: #### U A ####[facility] LABCLIA [id number] [place] [address] [place] Hemoglobin Ql (U) Negative Normal Negative [facility] Comment on above: Order Comment: Speci men Type: URINE SPECIMENOrdering Facility: [facility] Address: [address] [place] [address] Performed By: #### U A ####[facility] LABCLIA [id number] [place] [address] [place] Ketones Ql (U) Negative Normal Negative [facility] Comment on above: Order Comment: Speci men Type: URINE SPECIMENOrdering Facility: [facility] Address: [address] [place] [address] Performed By: #### U A ####[facility] LABCLIA [id number] [place] [address] [place] Leukocyte esterase Test strip Ql (U) Negative Normal Negative [facility] Comment on above: Order Comment: Speci men Type: URINE SPECIMENOrdering Facility: [facility] Address: [address] [place] [address] Performed By: #### U A ####[facility] LABCLIA [id number] [place] [address] [place] Nitrite Ql (U) Negative Normal Negative [facility] Comment on above: Order Comment: Speci men Type: URINE SPECIMENOrdering Facility: [facility] Address: [address] [place] [address] Performed By: #### U A ####[facility] LABCLIA [id number] [place] [address] [place] pH (U) 5.5 [pH] Normal <8.5 [facility] Comment on above: Order Comment: Speci men Type: URINE SPECIMENOrdering Facility: [facility] Address: [address] [place] [address] Performed By: #### U A ####[facility] LABCLIA [id number] [place] [address] [place] Protein (U) [Mass/Vol] Negative Normal Negative [facility] Comment on above: Order Comment: Speci men Type: URINE SPECIMENOrdering Facility: [facility] Address: [address] [place] [address] Performed By: #### U A ####[facility] LABCLIA [id number] [place] [address] [place] Specific gravity (U) [Rel density] 1.018 Normal 1.005-1.030 [facility] Comment on above: Order Comment: Speci men Type: URINE SPECIMENOrdering Facility: [facility] Address: [address] [place] [address] Performed By: #### U A ####[facility] LABIA [id number] [place] [address] [place] Urobilinogen Ql (U) 0.2 EU/dL Normal 0.2-1.0 EU/dL [facility] Comment on above: Order Comment: Speci men Type: URINE SPECIMENOrdering Facility: [facility] Address: [address] [place] [address] Performed By: #### U A ####[facility] LABCLIA [id number] [place] [id number] [place] XR CHEST 2V FRONTAL/LATon XR CHEST 2V FRONTAL/LAT Normal [facility] XR Chest PA and Lateralon IMPRESSION: No acute radiographic abnormality. [employer]orer: PSCB Transcribe Date/Time: Apr 12 2024 2:24P Dictated by : BOBY GARCIA MD This examination was interpreted and the report reviewed and electronically signed by: BOBY GARCIA MD on Apr 12 2024 2:25PM [facility] DIVISION OF RADIOLOGY * * *Final Report* * * DATE OF EXAM: Apr 12 2024 9:21AM JIX [id number] - XR CHEST 2V FRONTAL/LAT / PROCEDURE REASON: multiple diagnoses * * * * Physician Interpretation * * * * EXAMINATION: CHEST RADIOGRAPH (2 VIEW FRONTAL & LATERAL) CLINICAL HISTORY: Disorder of artery or arteriole (HCC) Pre-operative cardiovascular examination Mitral valve disorder MQ: XC2_6 EXAM DATE/TIME: 04/12/2024 9:21 AM COMPARISON: No relevant prior studies available. RESULT: Lines, tubes, and devices: None. Lungs and pleura: No consolidation. No lung mass. No pleural effusion. No pneumothorax. Cardiomediastinal silhouette: Normal cardiac silhouette. Tortuous and ectatic thoracic aorta. Bones and soft tissues: Unremarkable. DIVISION OF RADIOLOGY Provider, [facility] - 04/12/2024 * * *Final Report* * * DATE OF EXAM: Apr 12 2024 9:21AM JIX [id number] - XR CHEST 2V FRONTAL/LAT / PROCEDURE REASON: multiple diagnoses * * * * Physician Interpretation * * * * EXAMINATION: CHEST RADIOGRAPH (2 VIEW FRONTAL & LATERAL) CLINICAL HISTORY: Disorder of artery or arteriole (HCC) Pre-operative cardiovascular examination Mitral valve disorder MQ: XC2_6 EXAM DATE/TIME: 04/12/2024 9:21 AM COMPARISON: No relevant prior studies available. RESULT: Lines, tubes, and devices: None. Lungs and pleura: No consolidation. No lung mass. No pleural effusion. No pneumothorax. Cardiomediastinal silhouette: Normal cardiac silhouette. Tortuous and ectatic thoracic aorta. Bones and soft tissues: Unremarkable. IMPRESSION IMPRESSION: No acute radiographic abnormality. [employer]orer: PSCB Transcribe Date/Time: Apr 12 2024 2:24P Dictated by : BOBY GARCIA MD This examination was interpreted and the report reviewed and electronically signed by: BOBY GARCIA MD on Apr 12 2024 2:25PM EST [facility] Radiology Study observation (narrative) [facility] XR Chest PA and LateralOrder ed By: Ccf Provider on 04-12-2024 [facility] aPTT PPPon 04-12-2024 aPTT Coag (PPP) [Time] 26.9 s Normal 23.0-32.4 Cl [facility] Comment on above: Order Comment: Speci men Type: BLOOD SPECIMENOrdering Facility: [facility] Address: [address] [place] [address] Performed By: #### 1 4979-9, 54224-6 ####[facility] LABCLIA [id number] [facility] [id number] [place] [address] [place] CNPNon 03-09-2024 CNPN Normal [facility] CARD CATH DIAGNOSTICon 03-08 CARD CATH DIAGNOSTIC Site Id: [facility] Lab #: DEFAULT Study Date: 03/08/2024 Start Time: End Time: Name Duty Darien Chandler MD PROC MD 1 Bjorn King RN PROC SCRUB 1 John Joseph RT PROC CIRC 1 Lucius Urias RN PROC CIRC 2 Vidhya Quintanilla RN PROC RECORD 1 + + PATIENT INFORMATION + + Name: MRS. CAMMIE BHAT : 1970 Age: 53 years Gender: Height: 69 in / 175 cm Weight: 170.15 lb / 77.18 kg BMI: 25.13 kg/m BSA: 1.93 m + -------+ CLINICAL HISTORY/INDICATIONS + -------+ Dyspnea. Procedural Status: Elective CAD Presentation: Symptoms Unlikely to be Ischemic Angina Classification (within 2 weeks): No Angina No Heart Failure Clinical History: 53 female with severe mitral regurgitation for coronary angiography and right heart cath. + + DIAGNOSTIC FINDINGS + + Coronary Anatomy: Right Dominant Injection Site(s): Coronary Artery LMT: _ The LMT is normal. LAD: _ The LAD is normal. LCX: _ The Circumflex is normal. RAMUS: _ Ramus Status: Not Applicable. RCA: _ RCA is normal. Left Ventriculogram:Normal LV size and function LVEF= 55% Severe Mitral regurgitation + + IMPRESSION/PLAN + + Impression:1. Normal Coronary . 2. Pina LV size and function LVEF= 55% 3. Severe Mitral regurgitation 4. Normal Right heart cath hemodynamic . Recommended Treatment: Valve repair / replacement. Plan: Mitral valve repair + + HEMODYNAMICS - XPER + + + +---- --+-----+-------+----- +------+------+ Measurement Name Sys Bree End Bree Mean A Wave V Wave + +---- --+-----+-------+----- +------+------+ AO 117.00 64.00 83.00 + +---- --+-----+-------+----- +------+------+ AO 93.00 65.00 78.00 + +---- --+-----+-------+----- +------+------+ AO 97.00 65.00 80.00 + +---- --+-----+-------+----- +------+------+ LV 92.00 2.00 13.00 + +---- --+-----+-------+----- +------+------+ LVp 87.00 2.00 11.00 + +---- --+-----+-------+----- +------+------+ AOp 101.00 67.00 83.00 + +---- --+-----+-------+----- +------+------+ AO 100.00 66.00 82.00 + +---- --+-----+-------+----- +------+------+ RA 9.00 12.00 13.00 + +---- --+-----+-------+----- +------+------+ RA 8.00 12.00 10.00 + +---- --+-----+-------+----- +------+------+ RV 32.00 3.00 10.00 + +---- --+-----+-------+----- +------+------+ PA 32.00 13.00 22.00 + +---- --+-----+-------+----- +------+------+ PW 12.00 17.00 18.00 + +---- --+-----+-------+----- +------+------+ Oximetry: + + ----+ +--- --+---+-----+ Time Site O2 Saturation O2 PO2 HB + + ----+ +--- --+---+-----+ 03/08/2024 8:29:16 AM AO 92.00 17.77 14.20 + + ----+ +--- --+---+-----+ 03/08/2024 8:29:16 AM RA 70.00 13.52 14.20 + + ----+ +--- --+---+-----+ 03/08/2024 8:29:16 AM PW 85.00 16.42 14.20 + + ----+ +--- --+---+-----+ 03/08/2024 8:29:16 AM RA 70.00 13.52 14.20 + + ----+ +--- --+---+-----+ Cardiac Outputs: +--------+------+ MANI SV 150.00 +--------+------+ MANI CO 8.85 +--------+------+ MANI CI 4.59 +--------+------+ MANI HR +--------+------+ MAN CO +--------+------+ MAN CI +--------+------+ TD SV 97.40 +--------+------+ TD CO 5.74 +--------+------+ TD CI 2.98 +--------+------+ ANGIO SV +--------+------+ ANGIO CO +--------+------+ ANGIO CI +--------+------+ Hemodynamics Comments: Normal Pulmonary pressure + + ADVERSE OUTCOME(s)/COMPLICATIO N(s) + + None + ---------+ PROCEDURAL & TECHNICAL DETAILS + ---------+ Date Time Description 03/08/2024 12:00:00 AM Right Heart Cath 03/08/2024 12:00:00 AM LEFT VENTRICULAR ANGIOGRAPHY 03/08/2024 12:00:00 AM Left Heart Cath *MEDICAL HISTORY* CAD Presentation: Symptoms Unlikely to be Ischemic Angina Classification (within 2 weeks): No Angina No Heart Failure Family History of CAD: Yes Congenital Heart Disease: No Coronary Artery Disease: No Dyslipidemia: Yes Hypertension: Yes Myocarditis: No Pericarditis: No Syncope: No Arrhythmia: None Diabetes Mellitus: No Chronic Lung Disease: No Home Oxygen: No Hostile Chest: No Immunocompromised: No Myocardial (more content not included)... Normal [facility] HISTORY PHYSICALon HISTORY PHYSICAL HNO ID: [id number] Author: DARIEN CHANDLER MD Service: Cardiovascular Surgery Author Type: Physician Type: H&P Filed: 03/08/2024 08:29 Note Text: UPDATED HANDP PRE-CARDIAC CATHETERIZATION SERVICE DATE: 03/08/2024 SERVICE TIME: 8:30 am PHYSICAL EXAM MUST BE COMPLETED ON ADMISSION The History and Physical (completed in the past 30 days) has been reviewed and the patient has been examined. The contents accurately reflect the patient's condition with the following additions or revisions since the HANDP was completed. Examination indicates no changes. Planned Procedure: Right and Left Heart Cath + Possible PCI Primary Indication for Procedure: Valvular Heart Disease High Risk Features: History of Prior CABG: No History of Prior PCI: No Cardiomyopathy: No Anti-ischemic Meds in Past 2 Weeks: Beta blockers Ejection Fraction: 60% from Previous Echo Risk Appropriateness: Angina Class in Past 2 Weeks: Class I - No limitation of ordinary activity Cardiogenic Shock: NoHeart Failure: None Stress Test Performed: None EKG Assessment: Normal Family History of Premature CAD: Father, age 60 Evaluation for Preop Clearance: Non-Cardiac Surgery, Functional Capacity; >= 4 METS without symptoms, Surgical Risk; Low HISTORY OF BLEEDING: No This HANDP can be found in the attached. SIGNATURE: Darien Chandler MD PATIENT NAME: Cammie Bhat DATE: March 08, 2024 TIME: 8:26 AM Normal [facility] NURSING PROGon 03-08-2024 NURSING PROG HNO ID: [id number] Author: FARHANA NAVAS RN Service: ? Author Type: Registered Nurse Type: Nursing Progress Note Filed: 03/08/2024 11:52 Note Text: 1115 TR band removed, band aid applied, 2+ radial pulse, hand warm + cap refill. Home instructions reinforced. Right brachial dressing remains D/I Normal [facility] NURSING PROG HNO ID: [id number] Author: FARHANA NAVAS RN Service: ? Author Type: Registered Nurse Type: Nursing Progress Note Filed: 03/08/2024 09:21 Note Text: 0915 patient return to POD, right TR band on 1+ radial pulse, hand warm + cap refill, right brachial sheath intact site soft. Home instructions initiated, continue to monitor Normal [facility] Basic metabolic 2000 panelon 02-27-2024 Anion gap [Moles/Vol] 9 mmol/L Normal 8-15 [facility] Comment on above: Order Comment: Speci doyle Type: BLOOD SPECIMENOrdering Facility: [facility] Address: [address] [place] [address] Performed By: #### 2 4321-2 ####[facility] [id number] [place] [address] [place] Calcium [Mass/Vol] 9.9 mg/dL Normal 8.5-10.2 [facility] Comment on above: Order Comment: Jovanny kwon Type: BLOOD SPECIMENOrdering Facility: [facility] Address: [address] [place] [address] Performed By: #### 2 4321-2 ####[facility] [id number] [place] [address] [place] Chloride [Moles/Vol] 103 mmol/L Normal 98-107 [facility] Comment on above: Order Comment: Speci men Type: BLOOD SPECIMENOrdering Facility: [facility] Address: [address] [place] [address] Performed By: #### 2 4321-2 ####[facility] [id number] [place] [address] [place] CO2 [Moles/Vol] 25 mmol/L Normal 22-30 [facility] Comment on above: Order Comment: Speci men Type: BLOOD SPECIMENOrdering Facility: [facility] Address: [address] [place] [address] Performed By: #### 2 4321-2 ####[facility] [id number] [place] [address] [place] Creatinine [Mass/Vol] 0.79 mg/dL Normal 0.58-0.96 [facility] Comment on above: Order Comment: Speci men Type: BLOOD SPECIMENOrdering Facility: [facility] Address: [address] [place] [address] Performed By: #### 2 4321-2 ####[facility] [id number] [address] Creatinine and Glomerular filtration rate.predicted panel (S/P/Bld) 89 mL/min/1.73m??? Normal >=60 [facility] Comment on above: Order Comment: Speci men Type: BLOOD SPECIMENOrdering Facility: [facility] Address: [address] [place], [place] [id number] Result Comment: Brandy mated Glomerular Filtration Rate (eGFR) is calculated using the 2020 CKD-EPI creatinine equation. This equation utilizes serum creatinine, sex, and age as parameters. The creatinine assay has traceable calibration to isotope dilution-mass spectrometry. Refer to KDIGO guidelines for clinical interpretation. In patients with unstable renal function, e.g. those with acute kidney injury, the eGFR may not accurately reflect actual GFR. Performed By: #### 2 4321-2 ####[facility]ENTERDEZTHE [facility] [id number] [place] [address] [place] Glucose [Mass/Vol] 101 mg/dL High 74-99 [facility] Comment on above: Order Comment: Jovanny kwon Type: BLOOD SPECIMENOrdering Facility: [facility] Address: [address] [place] [address] Result Comment: The [place] Diabetes Association (ADA) provides guidance for cutoff values for fasting glucose and random glucose. The ADA defines fasting as no caloric intake for at least 8 hours. Fasting plasma glucose results between 100 to 125 mg/dL indicate increased risk for diabetes (prediabetes).Fasting plasma glucose results greater than or equal to 126 mg/dL meet the criteria for diagnosis of diabetes. In the absence of unequivocal hyperglycemia, results should be confirmed by repeat testing. In a patient with classic symptoms of hyperglycemia or hyperglycemic crisis, random plasma glucose results greater than or equal to 200 mg/dL meet the criteria for diagnosis of diabetes.Reference: Standards of Medical Care in Diabetes 2016, [place] Diabetes Association. Diabetes Care. 2016.39(Suppl 1). Performed By: #### 2 4321-2 ####[facility]ERNCA [id number] [place] [address] [place] Potassium [Moles/Vol] 4.0 mmol/L Normal 3.7-5.1 [facility] Comment on above: Order Comment: Jovanny kwon Type: BLOOD SPECIMENOrdering Facility: [facility] Address: [address] [id number] Performed By: #### 2 4321-2 ####[facility]ENTERNCLINnamdi [id number] [place] [address] [place] Sodium [Moles/Vol] 137 mmol/L Normal 136-144 [facility] Comment on above: Order Comment: Speci men Type: BLOOD SPECIMENOrdering Facility: [facility] Address: [address] [place] [address] Performed By: #### 2 4321-2 ####[facility]ENTERNCLIA [id number] [place] [address] [place] Urea nitrogen [Mass/Vol] 13 mg/dL Normal 7-21 [facility] Comment on above: Order Comment: Speci men Type: BLOOD SPECIMENOrdering Facility: [facility] Address: [address] [place] [address] Performed By: #### 2 4321-2 ####[facility]ENTERNCLIA [id number] [place] [address] [place] CBC panel Auto (Bld)on 02-26 Erythrocyte distribution width (RBC) [Ratio] 12.3 % Normal 11.5-15.0 [facility] Comment on above: Order Comment: Speci men Type: BLOOD SPECIMENOrdering Facility: [facility] Address: [address] [place] [address] Performed By: #### 5 8410-2 ####[facility]ERNCLIA [id number] [place] [address] [place] Hematocrit (Bld) [Volume fraction] 40.7 % Normal 36.0-46.0 [facility] Comment on above: Order Comment: Speci men Type: BLOOD SPECIMENOrdering Facility: [facility] Address: [address] [place] [address] Performed By: #### 5 8410-2 ####[facility]CLIA [id number] [place] [address] [place] Hemoglobin (Bld) [Mass/Vol] 14.2 g/dL Normal 11.5-15.5 [facility] Comment on above: Order Comment: Speci men Type: BLOOD SPECIMENOrdering Facility: [facility] Address: [address] [place] [address] Performed By: #### 5 8410-2 ####[facility] VALDEZBORDENSHEILA [id number] [address] [place] [facility] MCH (RBC) [Entitic mass] 34.2 pg High 26.0-34.0 [facility] Comment on above: Order Comment: Speci men Type: BLOOD SPECIMENOrdering Facility: [facility] Address: [address] [place] [address] Performed By: #### 5 8410-2 ####[facility]ERNCT[facility] [id number] [address] [place] MCHC (RBC) [Mass/Vol] 34.9 g/dL Normal 30.5-36.0 [facility] Comment on above: Order Comment: Speci men Type: BLOOD SPECIMENOrdering Facility: [facility] Address: [address] [place] [address] Performed By: #### 5 8410-2 ####[facility] [id number] [address] [place] MCV (RBC) [Entitic vol] 98.1 fL Normal 80.0-100.0 [facility] Comment on above: Order Comment: Speci men Type: BLOOD SPECIMENOrdering Facility: [facility] Address: [address] [place] [address] Performed By: #### 5 8410-2 ####[facility]ERNCT[facility] [id number] [place] [address] [place] Nucleated RBC (Bld) [#/Vol] 10*3/uL Normal <0.01 [facility] Comment on above: Order Comment: Speci men Type: BLOOD SPECIMENOrdering Facility: [facility] Address: [address] [place] [address] Performed By: #### 5 8410-2 ####[facility]ATION[facility]CL[facility] [id number] [place] [address] [place] Platelet mean volume (Bld) [Entitic vol] 9.5 fL Normal 9.0-12.7 [facility] Comment on above: Order Comment: Speci men Type: BLOOD SPECIMENOrdering Facility: [facility] Address: [address] [place] [address] Performed By: #### 5 8410-2 ####[facility]ENTERNCLIA [id number] [place] [address] [place] Platelets (Bld) [#/Vol] 268 10*3/uL Normal 150-400 [facility] Comment on above: Order Comment: Speci men Type: BLOOD SPECIMENOrdering Facility: [facility] Address: [address] [place] [address] Performed By: #### 5 8410-2 ####[facility]TON[facility] BEACHA [id number] [place] [address] [place] RBC (Bld) [#/Vol] 4.15 10*6/uL Normal 3.90-5.20 [facility] Comment on above: Order Comment: Speci men Type: BLOOD SPECIMENOrdering Facility: [facility] Address: [address] [place] [address] Performed By: #### 5 8410-2 ####[facility]ENTERNCLIA [id number] [place] [address] [place] WBC (Bld) [#/Vol] 4.45 10*3/uL Normal 3.70-11.00 [facility] Comment on above: Order Comment: Speci men Type: BLOOD SPECIMENOrdering Facility: [facility] Address: [address] [place] [address] Performed By: #### 5 8410-2 ####[facility]PITALLIA [id number] [place] [id number] [place] [address] [facility] Roland 02-27-2024 CNPN Telephone (AGDigital ReefACC) JOSECAMMIE ([id number]) 1970 F Date Time Provider Department 02/27/24 MAULIK MITCHELL During your visit today, we recorded the following information about you: Kendall Vicente MA 02/27/2024 2:25 PM Signed Phoned pt regarding future appts [facility] 03/10/24 10am PFT AND 11am CT Chest no prep required. Received dental clearance from Dr. Terry Manzano office phone [phone] form scanned into documents on 02/27/24 Also let pt know I will call back with surgery date options once I receive cardiac anesthesia availability for March 2024. Pt requesting late March [address] Mitchell. Allergies As of Date: 02/27/2024 Noted Allergy Reaction HYOSCYAMINE 01/15/2023 8 - GI Upset Comments: emesis HYDROCODONE 05/15/2021 8 - GI Upset IXEKIZUMAB 01/15/2023 7 - Swelling PENICILLINS 10/03/2005 4 - Hives Date Reviewed: 02/24/2024 Reviewed by: Alma Ramos LPN - Fully Assessed Reason for Visit: Future Appointment [256] Dental Clearance - Open Heart Surgery [1291] Cmt: Received 02/27/24 Prescriptions as of 02/27/2024 - metoprolol tartrate, short acting, (LOPRESSOR) 25 mg tablet Take 0.5 tablets by mouth two times a day. - desvenlafaxine ER (PRISTIQ) 50 mg 24 hr tablet Take 1 tablet by mouth every afternoon. - desvenlafaxine ER (PRISTIQ) 25 mg 24 hr tablet take 1 tablet by mouth daily with 50 milligram tablet - losartan (COZAAR) 100 mg tablet Take 1 tablet by mouth every afternoon. - celecoxib (CELEBREX) 200 mg capsule take 1 capsule by mouth twice a day with food for 2 weeks then 1 capsule daily - colestipol (COLESTID) 1 gram tablet Take 2 g by mouth twice daily. - TREMFYA 100 mg/mL AutoInjector - pantoprazole DR (PROTONIX) 40 mg tablet Take 80 mg by mouth once daily. - topiramate (TOPAMAX) 25 mg tablet Take 75 mg by mouth once daily. 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] 01/13/2023 Rheumatic fever without heart involvement [I00] 01/13/2023 Supraventricular tachycardia (HCC) [I47.10] 01/13/2023 Acute diarrhea [R19.7] 07/02/2022 Arthropathy [M12.9] 01/06/2023 Elevated liver enzymes [R74.8] 01/15/2023 Essential (primary) hypertension [I10] 11/11/2022 Fracture of neck of metacarpal bone [S62.339A] 01/15/2023 Heart murmur [R01.1] 11/11/2022 Patellofemoral pain syndrome [M22.2X9] 01/15/2023 Osteoarthritis of left knee [M17.12] 12/06/2022 Sludge in gallbladder [K82.8] 01/15/2023 Steatosis of liver [K76.0] 01/15/2023 Synovial cyst of left knee [M71.22] 01/15/2023 Tear of medial meniscus of knee [S83.249A] 04/17/2022 Bilateral primary osteoarthritis of knee [M17.0]01/06/2023 Nonrheumatic mitral (valve) insufficiency [I34.*04/07/2023 Nonrheumatic mitral (valve) prolapse [I34.1] 04/07/2023 Encounter Status:Closed by TAY VICENTE on 02/27/24 [facility] CNPN Telephone (AKCATH) CAMMIE BHAT ([id number]) 1970 F Date Time Provider Department 02/25/24 MAULIK MITCHELL ABIGAILGEORGE During your visit today, we recorded the following information about you: Sophie Silverman 02/25/2024 10:20 AM Signed Schedule [facility] on 03/02/2024 with Dio Munoz RN 02/25/2024 10:59 AM Signed Left message on Plattermail requesting pt return call for heart cath date and instructions. Office phone number provided. SEBASTIAN Fletcher Stacey, SEBASTIAN 02/25/2024 11:06 AM Signed Spoke with pt. She will be out of town 02/27 - 03/05. She reports any day week of 03/08/24 should work. SEBASTIAN Fletcher Teresa 02/25/2024 11:23 AM Signed Reschedule [facility] on 03/08/2024 with Dio Sultana RN 02/25/2024 11:29 AM Signed Spoke with pt. Pt agreeable to cath 03/08/24. Instructions sent through My Chart per pt request. SEBASTIAN Fletcher Stacey, RN 02/25/2024 11:31 AM Signed Addended by: DIO MARY on: 02/25/2024 11:31 AM Modules accepted: Orders Allergies As of Date: 02/25/2024 Noted Allergy Reaction HYOSCYAMINE 01/15/2023 8 - GI Upset Comments: emesis HYDROCODONE 05/15/2021 8 - GI Upset IXEKIZUMAB 01/15/2023 7 - Swelling PENICILLINS 10/03/2005 4 - Hives Date Reviewed: 02/24/2024 Reviewed by: Alma Ramos LPN - Fully Assessed Reason for Visit: Preparations For Procedures [899] Primary Visit Diagnosis:Nonrheumatic mitral (valve) insufficiency [I34.0] Order(s):BASIC METABOLIC PANEL [SQBMP] Order #: [id number] FUTURE COMPLETE BLOOD COUNT [SQCBC] Order #: [id number] FUTURE Prescriptions as of 02/25/2024 - metoprolol tartrate, short acting, (LOPRESSOR) 25 mg tablet Take 0.5 tablets by mouth two times a day. - desvenlafaxine ER (PRISTIQ) 50 mg 24 hr tablet Take 1 tablet by mouth every afternoon. - desvenlafaxine ER (PRISTIQ) 25 mg 24 hr tablet take 1 tablet by mouth daily with 50 milligram tablet - losartan (COZAAR) 100 mg tablet Take 1 tablet by mouth every afternoon. - celecoxib (CELEBREX) 200 mg capsule take 1 capsule by mouth twice a day with food for 2 weeks then 1 capsule daily - colestipol (COLESTID) 1 gram tablet Take 2 g by mouth twice daily. - TREMFYA 100 mg/mL AutoInjector - pantoprazole DR (PROTONIX) 40 mg tablet Take 80 mg by mouth once daily. - topiramate (TOPAMAX) 25 mg tablet Take 75 mg by mouth once daily. 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] 01/13/2023 Rheumatic fever without heart involvement [I00] 01/13/2023 Supraventricular tachycardia (HCC) [I47.10] 01/13/2023 Acute diarrhea [R19.7] 07/02/2022 Arthropathy [M12.9] 01/06/2023 Elevated liver enzymes [R74.8] 01/15/2023 Essential (primary) hypertension [I10] 11/11/2022 Fracture of neck of metacarpal bone [S62.339A] 01/15/2023 Heart murmur [R01.1] 11/11/2022 Patellofemoral pain syndrome [M22.2X9] 01/15/2023 Osteoarthritis of left knee [M17.12] 12/06/2022 Sludge in gallbladder [K82.8] 01/15/2023 Steatosis of liver [K76.0] 01/15/2023 Synovial cyst of left knee [M71.22] 01/15/2023 Tear of medial meniscus of knee [S83.249A] 04/17/2022 Bilateral primary osteoarthritis of knee [M17.0]01/06/2023 Nonrheumatic mitral (valve) insufficiency [I34.*04/07/2023 Nonrheumatic mitral (valve) prolapse [I34.1] 04/07/2023 Encounter Status:Closed by SOPHIE SILVERMAN [facility] Visit (AGVASACC) CAMMIE BHAT ([id number]) 1970 F Date Time Provider Department 02/24/24 2:00 PM MAULIK MITCHELL During your visit today, we recorded the following information about you: Pulse Blood pressure Weight Height 80/minute 110/80 79.7 kg 1.753 m [place], [place], [employer]WORKING [employer]T SANDER 02/24/2024 1:54 PM Signed CARDIAC REHAB 5 METER WALK TEST SERVICE DATE: 02/24/2024 SERVICE TIME: 1:46PM 4.77secf 4.28sec 4.25sec ASSESSMENT: SIGNATURE: Alma Ramos LPN PATIENT NAME: Cammie Bhat DATE: February 24, 2024 TIME: 1:54 PM PAGER/CONTACT #: [phone] Betty Jack APRN.CNP 02/24/2024 3:40 PM Signed STS for Isolated MVr Perioperative Outcome Estimate % Operative Mortality 0.297% Morbidity AND Mortality 2.78% Stroke 0.597% Renal Failure 0.333% Reoperation 1.43% Prolonged Ventilation 1.24% Deep Sternal Wound Infection 0.036% Long Hospital Stay (>14 days) 0.954% Short Hospital Stay (<6 days)* 71.5% *higher values reflect a better outcome STS for Isolated MVR Perioperative Outcome Estimate % Operative Mortality 0.739% Morbidity AND Mortality 4.68% Stroke 1.09% Renal Failure 0.609% Reoperation 2.43% Prolonged Ventilation 2.19% Deep Sternal Wound Infection 0.035% Long Hospital Stay (>14 days) 2.68% Short Hospital Stay (<6 days)* 43.9% *higher values reflect a better outcome Clinical Summary Planned Surgery: Isolated MVr, Elective, First cardiovascular surgery Demographics: 53 year old, female, 79.7kg, 175.3cm, BMI: 25.9 kg/m? Lab Values: Creatinine: 0.82 mg/dL, Hematocrit: 41.2%, WBC Count: 6.9 10?/?L, Platelet Count: 036679 cells/?L Substance Abuse: Former smoker Risk Factors / Comorbidities: Hypertension Cardiac Status: Ejection Fraction = 65% Coronary Artery Disease: No coronary symptoms Valve Disease: Severe MR, Mild TR Betty Jack APRN.FULLING MACHINE OPERATOR 02/24/2024 2:47 PM Addendum You came in to see Dr. Mitchell today for surgical evaluation of mitral valve disease. By reviewing your images/clinical data, Dr. Mitchell recommends proceeding with mitral valve repair. In preparation for surgery, we recommend obtaining the following: Cardiac catheterization - this will be ordered and scheduled for you by our office Pulmonary function test - this will be ordered and scheduled for you by our office CT chest - this will be ordered and scheduled for you by our office Dental evaluation - this form will be provided to you to have completed and returned to us Once the above tests are resulted, we will schedule you a date for surgery. You will be seen by one of our nurse practitioners in the office one week prior to surgery to review pre surgical instructions. Thanks for coming in to see us today. Please call us if you have any concerns/questions: [phone] Betty Jack APRN.FULLING MACHINE OPERATOR Cardiothoracic surgery TODDLER GUIDE Maulik Mitchell MD 02/24/2024 3:40 PM Signed CARDIOTHORACIC SURGERY CONSULT / HANDP SERVICE DATE: 02/24/2024 SERVICE TIME: 3:29 PM Subjective PRIMARY SERVICE: Cardiothoracic Surgery CHIEF COMPLAINT: Severe mitral regurgitation HPI: This is a 53 year old woman referred for evaluation of severe mitral regurgitation and for consideration for mitral valve repair. She has had symptomatic SVT and is followed by Dr. Thomas from the electrophysiology service. She was to undergo the ablation procedure. In preparation for this, echo was performed showinD echo from 01/12/2024 Left ventricle normal size and thickness. Left ventricle ejection fraction 65%; Left atrium mildly enlarged Normal right ventricle Normal right atrium Mitral valve: Prolapse of the posterior mitral valve leaflet; moderate to severe eccentric mitral valve regurgitation Real TR Normal PA pressures Relief aortic valve Further evaluation with transesophageal echo shows: Normal left ventricle size; left ventricle systolic function normal; ejection fraction 65% Normal right ventricular size and function Negative bubble study Left atrium moderately enlarged Right atrium moderately large Atrial valve: Moderate mitral valve prolapse posterior leaflet; 3+ eccentric mitral valve insufficiency; moderately severe anteriorly directed mitral insufficiency Tricuspid valve normal with mild insufficiency Normal aortic valve To date, left heart catheterization for regular catheterization of not been performed. Ablation has been postponed pending further review of the mitral regurgitation. Her SVT is symptomatic. When she has these episodes she feels clammy and weak. Known history of atrial fibrillation. Despite her SVT, she does not have exertional dyspnea, orthopnea, PND, edema, chest pain or pressure, presyncope or syncope. That being said, she does not strenuously exert. She has no other cardiac history such as CHF, NV, angina. No history of other vascular disea (more content not included)... [facility] CNPRe 02-18-2024 CNPN Telephone (AGVASACC) CAMMIE BHAT ([id number]) 1970 F Date Time Provider Department 02/18/24 MAULIK MITCHELL KEY During your visit today, we recorded the following information about you: Obdulio Peoples 02/18/2024 2:20 PM Signed LVM to schedule with Dr Mitchell New Patient Referral from Jeyson Galvan NP, TODDLER GUIDE-C [phone] for Nonrheumatic Mitral Valve Insufficiency, Nonrheumatic Mitral Valve Prolapse with EXTERNAL [facility] ECHO 01/12/2024 Allergies As of Date: 02/18/2024 Noted Allergy Reaction HYOSCYAMINE 01/15/2023 8 - GI Upset Comments: emesis HYDROCODONE 05/15/2021 8 - GI Upset IXEKIZUMAB 01/15/2023 7 - Swelling PENICILLINS 10/03/2005 4 - Hives Date Reviewed: 01/09/2024 Reviewed by: Troy Byrd APRN.FULLING MACHINE OPERATOR - Fully Assessed Reason for Visit: Consult [502] Cmt: FAXED REFERRAL Prescriptions as of 02/18/2024 - metoprolol tartrate, short acting, (LOPRESSOR) 25 mg tablet Take 0.5 tablets by mouth two times a day. - desvenlafaxine ER (PRISTIQ) 50 mg 24 hr tablet Take 1 tablet by mouth every afternoon. - desvenlafaxine ER (PRISTIQ) 25 mg 24 hr tablet take 1 tablet by mouth daily with 50 milligram tablet - losartan (COZAAR) 100 mg tablet Take 1 tablet by mouth every afternoon. - celecoxib (CELEBREX) 200 mg capsule take 1 capsule by mouth twice a day with food for 2 weeks then 1 capsule daily - colestipol (COLESTID) 1 gram tablet Take 2 g by mouth twice daily. - TREMFYA 100 mg/mL AutoInjector - pantoprazole DR (PROTONIX) 40 mg tablet Take 80 mg by mouth once daily. - topiramate (TOPAMAX) 25 mg tablet Take 75 mg by mouth once daily. Problem List As Of Date 02/18/2024 Noted Resolved AGRANULOCYTOSIS [288.0] 11/02/2005 IRON DEFIC ANEMIA NOS [D50.9] 11/05/2005 LEUKOCYTOPENIA NOS [D72.819] 09/29/2006 OTHER PSORIASIS [L40.8] 11/14/2006 Fibromyalgia [M79.7] 01/13/2023 History of abdominal hysterectomy [Z90.710] 01/13/2023 Hypercholesterolemia [E78.00] 01/13/2023 Intermittent palpitations [R00.2] 01/13/2023 Psoriasis with arthropathy (HCC) [L40.50] 01/13/2023 Rheumatic fever without heart involvement [I00] 01/13/2023 Supraventricular tachycardia (HCC) [I47.10] 01/13/2023 Acute diarrhea [R19.7] 07/02/2022 Arthropathy [M12.9] 01/06/2023 Elevated liver enzymes [R74.8] 01/15/2023 Essential (primary) hypertension [I10] 11/11/2022 Fracture of neck of metacarpal bone [S62.339A] 01/15/2023 Heart murmur [R01.1] 11/11/2022 Patellofemoral pain syndrome [M22.2X9] 01/15/2023 Osteoarthritis of left knee [M17.12] 12/06/2022 Sludge in gallbladder [K82.8] 01/15/2023 Steatosis of liver [K76.0] 01/15/2023 Synovial cyst of left knee [M71.22] 01/15/2023 Tear of medial meniscus of knee [S83.249A] 04/17/2022 Bilateral primary osteoarthritis of knee [M17.0]01/06/2023 Nonrheumatic mitral (valve) insufficiency [I34.*04/07/2023 Nonrheumatic mitral (valve) prolapse [I34.1] 04/07/2023 Encounter Status:Closed by OBDULIO PEOPLES on 02/18/24 [facility] Roland 02-16-2024 CNPN Telephone (AGCARDPOB ) CAMMIE BHAT ([id number]) 1970 F Date Time Provider Department 02/16/24 NAOMY THOMAS AGCARDPOB During your visit today, we recorded the following information about you: Dio Mary RN 02/16/2024 1:43 PM Signed Pt calls to report she had her WALTER this morning with Dr Dietz at [facility]. She reports Dr Dietz advised her to cancel ablation and have her mitral valve fixed. I phoned [facility]. Atilio is agreeable to fax WALTER report to [phone]. SEBASTIAN Fletcher Stacey, RN 02/16/2024 2:58 PM Signed WALTER report to Dr Thomas's POB door box. SEBASTIAN Fletcher Stacey, RN 02/20/2024 8:52 AM Signed Naomy Thomas MD You; Gisselle Ruffin; Francisco Savage RN15 hours ago (5:03 PM) I agree that she should cancel ablation. I am assuming Dr. Dietz will be referring her to a valve specialist? Allergies As of Date: 02/16/2024 Noted Allergy Reaction HYOSCYAMINE 01/15/2023 8 - GI Upset Comments: emesis HYDROCODONE 05/15/2021 8 - GI Upset IXEKIZUMAB 01/15/2023 7 - Swelling PENICILLINS 10/03/2005 4 - Hives Date Reviewed: 01/09/2024 Reviewed by: Troy Byrd APRN.FULLING MACHINE OPERATOR - Fully Assessed Reason for Visit: Patient Update [1234] Prescriptions as of 02/24/2024 - metoprolol tartrate, short acting, (LOPRESSOR) 25 mg tablet Take 0.5 tablets by mouth two times a day. - desvenlafaxine ER (PRISTIQ) 50 mg 24 hr tablet Take 1 tablet by mouth every afternoon. - desvenlafaxine ER (PRISTIQ) 25 mg 24 hr tablet take 1 tablet by mouth daily with 50 milligram tablet - losartan (COZAAR) 100 mg tablet Take 1 tablet by mouth every afternoon. - celecoxib (CELEBREX) 200 mg capsule take 1 capsule by mouth twice a day with food for 2 weeks then 1 capsule daily - colestipol (COLESTID) 1 gram tablet Take 2 g by mouth twice daily. - TREMFYA 100 mg/mL AutoInjector - pantoprazole DR (PROTONIX) 40 mg tablet Take 80 mg by mouth once daily. - topiramate (TOPAMAX) 25 mg tablet Take 75 mg by mouth once daily. Problem List As Of Date 02/16/2024 Noted Resolved AGRANULOCYTOSIS [288.0] 11/02/2005 IRON DEFIC ANEMIA NOS [D50.9] 11/05/2005 LEUKOCYTOPENIA NOS [D72.819] 09/29/2006 OTHER PSORIASIS [L40.8] 11/14/2006 Fibromyalgia [M79.7] 01/13/2023 History of abdominal hysterectomy [Z90.710] 01/13/2023 Hypercholesterolemia [E78.00] 01/13/2023 Intermittent palpitations [R00.2] 01/13/2023 Psoriasis with arthropathy (HCC) [L40.50] 01/13/2023 Rheumatic fever without heart involvement [I00] 01/13/2023 Supraventricular tachycardia (HCC) [I47.10] 01/13/2023 Acute diarrhea [R19.7] 07/02/2022 Arthropathy [M12.9] 01/06/2023 Elevated liver enzymes [R74.8] 01/15/2023 Essential (primary) hypertension [I10] 11/11/2022 Fracture of neck of metacarpal bone [S62.339A] 01/15/2023 Heart murmur [R01.1] 11/11/2022 Patellofemoral pain syndrome [M22.2X9] 01/15/2023 Osteoarthritis of left knee [M17.12] 12/06/2022 Sludge in gallbladder [K82.8] 01/15/2023 Steatosis of liver [K76.0] 01/15/2023 Synovial cyst of left knee [M71.22] 01/15/2023 Tear of medial meniscus of knee [S83.249A] 04/17/2022 Bilateral primary osteoarthritis of knee [M17.0]01/06/2023 Nonrheumatic mitral (valve) insufficiency [I34.*04/07/2023 Nonrheumatic mitral (valve) prolapse [I34.1] 04/07/2023 Encounter Status:Closed by DIO MARY on 02/24/24 [facility] Echo Transesophageal (WALTER)on 02-16-2024 Echo Transesophageal (WALTER) [facility] [address] [place] [address] Echo Transesophageal (WALTER) 02/16/24 0950 MR#: [id number] Acct: [id number] Name: CAMMIE BHAT Rep #: [id number] : 1970 53 From: Roger Dietz MD Attending Dr: Jeyson Galvan TODDLER GUIDE-C Status: REG [facility] Ordering Dr: Jeyson Galvan TODDLER GUIDE TODDLER GUIDE-C Date: 02/16/24 Location: [facility] Sex: F C Admitted: Reason For Study: Mitral Valve Regurgitation Medication WALTER probe 6VT-D (SN [id number]) passed without difficulty. No complications were noted. Cetacaine Topical Icard given X3 orally. Versed 1 mg given slow IVP. Fentanyl 50 mcg given slow IVP. Performed a rapid injection of agitated mix of 9 cc saline and 1cc air to assess for atrial septal defect. Left Ventricle Normal LV size. Left ventricular systolic function is normal. The left ventricular ejection fraction is 65 %. No regional wall motion abnormalities noted. Right Ventricle Normal RV size. Normal systolic function. Atria Bubble contrast study negative for right to left interatrial shunt. The left atrium is moderately enlarged. No thrombus is detected in the left atrial appendage. The right atrium is mildly enlarged. Mitral Valve Moderate mitral valve prolapse, posterior leaflet. Moderately severe (3+) eccentric mitral valve insufficiency. Moderately severe (3+) anteriorly directed mitral valve insufficiency. Tricuspid Valve Normal tricuspid valve. Mild tricuspid valve insufficiency. Aortic Valve Normal aortic valve. Trisinus/trileaflet aortic valve. Pulmonic Valve Normal pulmonic valve. Vessels Normal aortic root. Normal arch. The pulmonary artery is normal size. Normal pulmonary veins. Pericardium No pericardial effusion. ECHO/Echo Transesophageal (WALTER) Interpretation Summary Normal LV size. Left ventricular systolic function is normal. The left ventricular ejection fraction is 65 %. Bubble contrast study negative for right to left interatrial shunt. The left atrium is moderately enlarged. Moderate mitral valve prolapse, posterior leaflet Moderately severe (3+) eccentric mitral valve insufficiency. Moderately severe (3+) anteriorly directed mitral valve insufficiency. Ordering Physician: Jeyson Galvan Referring Physician: Jeyson Galvan Performed By: Cande Gibbons, [facility] 02/16/24 1102 Date Roger Dietz MD CC: TODDLER GUIDE-C Jeyson Galvan; Dr. Nathan Guzman DO Date Dictated: 02/16/24 0950 Date Transcribed: 02/16/24 110 Poultry Farm Laborer: Signed [facility] 02-12-2024 [facility] Telephone (AGCARDPOB ) CAMMIE BHAT ([id number]) 1970 F Date Time Provider Department 02/12/24 NAOMY THOMAS During your visit today, we recorded the following information about you: Allergies As of Date: 02/12/2024 Noted Allergy Reaction HYOSCYAMINE 01/15/2023 8 - GI Upset Comments: emesis HYDROCODONE 05/15/2021 8 - GI Upset IXEKIZUMAB 01/15/2023 7 - Swelling PENICILLINS 10/03/2005 4 - Hives Date Reviewed: 01/09/2024 Reviewed by: Troy Byrd APRN.FULLING MACHINE OPERATOR - Fully Assessed Reason for Visit: Preparations For Procedures [899] Prescriptions as of 04/15/2024 - mupirocin (BACTROBAN) 2 % ointment Apply a small amount in each nostril using a cotton swab twice the day before surgery and once the morning of surgery. - metoprolol tartrate, short acting, (LOPRESSOR) 25 mg tablet Take 0.5 tablets by mouth two times a day. - desvenlafaxine ER (PRISTIQ) 50 mg 24 hr tablet Take 1 tablet by mouth every afternoon. - desvenlafaxine ER (PRISTIQ) 25 mg 24 hr tablet take 1 tablet by mouth daily with 50 milligram tablet - losartan (COZAAR) 100 mg tablet Take 1 tablet by mouth every afternoon. - celecoxib (CELEBREX) 200 mg capsule - colestipol (COLESTID) 1 gram tablet Take 2 g by mouth twice daily. - TREMFYA 100 mg/mL AutoInjector - pantoprazole DR (PROTONIX) 40 mg tablet Take 80 mg by mouth once daily. - topiramate (TOPAMAX) 25 mg tablet Take 75 mg by mouth once daily. Facility-Administered Medications as of 04/15/2024 - metoclopramide HCl 10 mg injection (REGLAN) - keTORolac 15 mg injection (Toradol) - topiramate 75 mg tab(s) (TOPAMAX) - heparin 5,000 Units injection - NaCl 0.9% iv flush bag - NaCl 0.9% iv infusion - mupirocin 2 % 1 g nasal ointment (BACTROBAN) - pantoprazole DR 20 mg tab(s) (PROTONIX) - senna-docusate 8.6-50 mg 2 tablet (SENNA-S) - polyethylene glycol 3350 17 g packet - bisacodyl 10 mg suppository (DULCOLAX) - ondansetron (PF) 4 mg injection (ZOFRAN) - potassium chloride iv piggyback 10 mEq/100mL - potassium chloride iv piggyback 20 mEq/50 mL - potassium chloride 40-120 mEq oral powder (KLOR-CON) - nitroglycerin injection syringe 100 mcg 1 mL - PHENYLephrine 100 mcg injection - fentaNYL SOCIAL WELFARE ADMINISTRATOR 20 mcg/mL in NaCl 0.9% 100 mL (SUBLIMAZE) - naloxone 0.04 mg injection (NARCAN) - NaCl 0.9% iv infusion - fentaNYL 50 mcg/mL 25-75 mcg injection (SUBLIMAZE) - acetaminophen 1,000 mg tab(s) (TYLENOL) - acetaminophen 650 mg tab(s) (TYLENOL) - oxyCODONE IR 5-10 mg tab(s) (ROXICODONE) - ceFAZolin 1 g in D5W 100 mL Vial-Bag (ANCEF) - aspirin 81 mg chewable tab(s) - hydrALAZINE 10 mg injection (APRESOLINE) - melatonin 6 mg tab(s) Problem List As Of Date 02/12/2024 Noted Resolved AGRANULOCYTOSIS [288.0] 11/02/2005 IRON DEFIC ANEMIA NOS [D50.9] 11/05/2005 LEUKOCYTOPENIA NOS [D72.819] 09/29/2006 OTHER PSORIASIS [L40.8] 11/14/2006 Fibromyalgia [M79.7] 01/13/2023 History of abdominal hysterectomy [Z90.710] 01/13/2023 Hypercholesterolemia [E78.00] 01/13/2023 Intermittent palpitations [R00.2] 01/13/2023 Psoriasis with arthropathy (HCC) [L40.50] 01/13/2023 Rheumatic fever without heart involvement [I00] 01/13/2023 Supraventricular tachycardia (HCC) [I47.10] 01/13/2023 Acute diarrhea [R19.7] 07/02/2022 Arthropathy [M12.9] 01/06/2023 Elevated liver enzymes [R74.8] 01/15/2023 Essential (primary) hypertension [I10] 11/11/2022 Fracture of neck of metacarpal bone [S62.339A] 01/15/2023 Heart murmur [R01.1] 11/11/2022 Patellofemoral pain syndrome [M22.2X9] 01/15/2023 Osteoarthritis of left knee [M17.12] 12/06/2022 Sludge in gallbladder [K82.8] 01/15/2023 Steatosis of liver [K76.0] 01/15/2023 Synovial cyst of left knee [M71.22] 01/15/2023 Tear of medial meniscus of knee [S83.249A] 04/17/2022 Bilateral primary osteoarthritis of knee [M17.0]01/06/2023 Nonrheumatic mitral (valve) insufficiency [I34.*04/07/2023 Nonrheumatic mitral (valve) prolapse [I34.1] 04/07/2023 Encounter Status:Closed by NASRA DASILVA on 04/15/24 [facility] CNP[facility] Telephone (AGCARDPOB ) CAMMIE BHAT ([id number]) 1970 F Date Time Provider Department 01/23/24 NAOMY THOMAS During your visit today, we recorded the following information about you: Kwabena Gustafson LPN 01/23/2024 1:04 PM Signed Pt called in requesting ECO results. Please review and advise. RAMILA Gong Robert A, MD 01/23/2024 5:25 PM Signed The echocardiogram performed at [facility] revealed moderate to severe mitral valve regurgitation from mitral valve prolapse. She needs to discuss this finding with Dr. Samuels or whatever general fish egg packer she sees. She might need additional testing and possibly surgery for this valve. She is scheduled for SVT catheter ablation on 02/19/2024. However, I would not recommend that she undergo a catheter ablation procedure for SVT under such conditions until this is figured out. Gisselle please cancel her ablation procedure. Naomy Thomas MD January 23, 2024 5:23 PM Dio Mary RN 01/26/2024 2:24 PM Signed Spoke with pt. She reports she sees Dr Samuels as her fish egg packer. She reports Dr Dietz is doing a WALTER 02/16/24. She asks if the Dr Dietz, after doing the WALTER, feels the valve just needs monitored could she go ahead with the ablation 02/19/24? SEBASTIAN Fletcher Tera, LPN 01/26/2024 2:36 PM Signed Pt called in to report. That she is trying to move the WALTER up to 02/01 or 02/08 at the latest. Then monitor the valve from there. Please review and advise. Allergies As of Date: 01/23/2024 Noted Allergy Reaction HYOSCYAMINE 01/15/2023 8 - GI Upset Comments: emesis HYDROCODONE 05/15/2021 8 - GI Upset IXEKIZUMAB 01/15/2023 7 - Swelling PENICILLINS 10/03/2005 4 - Hives Date Reviewed: 01/09/2024 Reviewed by: Troy Byrd APRN.FULLING MACHINE OPERATOR - Fully Assessed Reason for Visit: Results [95] Prescriptions as of 01/26/2024 - metoprolol tartrate, short acting, (LOPRESSOR) 25 mg tablet Take 0.5 tablets by mouth two times a day. - desvenlafaxine ER (PRISTIQ) 50 mg 24 hr tablet Take 1 tablet by mouth every afternoon. - desvenlafaxine ER (PRISTIQ) 25 mg 24 hr tablet take 1 tablet by mouth daily with 50 milligram tablet - losartan (COZAAR) 100 mg tablet Take 1 tablet by mouth every afternoon. - celecoxib (CELEBREX) 200 mg capsule take 1 capsule by mouth twice a day with food for 2 weeks then 1 capsule daily - colestipol (COLESTID) 1 gram tablet Take 2 g by mouth twice daily. - TREMFYA 100 mg/mL AutoInjector - pantoprazole DR (PROTONIX) 40 mg tablet Take 80 mg by mouth once daily. - topiramate (TOPAMAX) 25 mg tablet Take 75 mg by mouth once daily. Problem List As Of Date 01/23/2024 Noted Resolved AGRANULOCYTOSIS [288.0] 11/02/2005 IRON DEFIC ANEMIA NOS [D50.9] 11/05/2005 LEUKOCYTOPENIA NOS [D72.819] 09/29/2006 OTHER PSORIASIS [L40.8] 11/14/2006 Fibromyalgia [M79.7] 01/13/2023 History of abdominal hysterectomy [Z90.710] 01/13/2023 Hypercholesterolemia [E78.00] 01/13/2023 Intermittent palpitations [R00.2] 01/13/2023 Psoriasis with arthropathy (HCC) [L40.50] 01/13/2023 Rheumatic fever without heart involvement [I00] 01/13/2023 Supraventricular tachycardia (HCC) [I47.10] 01/13/2023 Acute diarrhea [R19.7] 07/02/2022 Arthropathy [M12.9] 01/06/2023 Elevated liver enzymes [R74.8] 01/15/2023 Essential (primary) hypertension [I10] 11/11/2022 Fracture of neck of metacarpal bone [S62.339A] 01/15/2023 Heart murmur [R01.1] 11/11/2022 Patellofemoral pain syndrome [M22.2X9] 01/15/2023 Osteoarthritis of left knee [M17.12] 12/06/2022 Sludge in gallbladder [K82.8] 01/15/2023 Steatosis of liver [K76.0] 01/15/2023 Synovial cyst of left knee [M71.22] 01/15/2023 Tear of medial meniscus of knee [S83.249A] 04/17/2022 Bilateral primary osteoarthritis of knee [M17.0]01/06/2023 Nonrheumatic mitral (valve) insufficiency [I34.*04/07/2023 Nonrheumatic mitral (valve) prolapse [I34.1] 04/07/2023 Encounter Status:Closed by NAOMY THOMAS on 01/23/24 Normal [facility] Basic Metabolic Profile (BMP )on 01-21-2024 BUN/CRE 17.1 RATIO Normal 10- [facility] Comment on above: Order Comment: for T EE Performed By: #### M 100.2200 #### [facility] [address] [place], [address] CA,Total 9.6 mg/dL Normal 8.5-10.1 [facility] Comment on above: Order Comment: for T EE Performed By: #### M 100.2200 #### [facility] [address] [place], [address] Chloride [Moles/Vol] 105 mmol/L Normal 98-107 [facility] Comment on above: Order Comment: for T EE Performed By: #### M 100.2200 #### [facility] [address] [place], [address] CO2 [Moles/Vol] 28.0 mmol/L Normal 21.0-32.0 [facility] Comment on above: Order Comment: for T EE Performed By: #### M 100.2200 #### [facility] [address] [place], [address] Creatinine [Mass/Vol] 0.82 mg/dL Normal 0.55-1.02 [facility] Comment on above: Order Comment: for T EE Result Comment: The validity of the calculated GFR GFRAA in patients over 70 years has not been determined. Clinical correlation is essential. Performed By: #### M 100.2200 #### [facility] [address] [place], [address] EST GFR - AA 94 mL/min Normal >60 [facility] Comment on above: Order Comment: for T EE Result Comment: Afri can Mauritian GFR Calc Performed By: #### M 100.2200 #### [facility] [address] [place], [address] GAP 3 Low 5-15 [facility] Comment on above: Order Comment: for T EE Performed By: #### M 100.2200 #### [facility] [address] [place], [address] GFR/1.73 sq M.predicted among non-blacks MDRD (S/P/Bld) [Vol rate/Area] 77 mL/min/{1.73_m2} Normal >60 [facility] Comment on above: Order Comment: for T EE Result Comment: Non- GFR Calc Performed By: #### M 100.2200 #### [facility] [address] [place], [address] Glucose [Mass/Vol] 93 mg/dL Normal 74-106 [facility] Comment on above: Order Comment: for T EE Performed By: #### M 100.2200 #### [facility] [address] [place], [address] Potassium [Moles/Vol] 3.6 mmol/L Normal 3.5-5.1 [facility] Comment on above: Order Comment: for T EE Performed By: #### M 100.2200 #### [facility] [address] [place], [address] Sodium [Moles/Vol] 136 mmol/L Normal 136-145 [facility] Comment on above: Order Comment: for T EE Performed By: #### M 100.2200 #### [facility] [address] [place], [address] Urea nitrogen [Mass/Vol] 14 mg/dL Normal 7-18 [facility] Comment on above: Order Comment: for T EE Performed By: #### M 100.2200 #### [facility] [address] [place], [address] Echo Completeon 01-12-2024 Echo Complete [facility] [address] [place] [address] Echo Complete 01/12/24 1350 MR#: [id number] Acct: [id number] Name: CAMMIE BHAT Rep #: [id number] : 1970 53 From: Malika Samuels MD Attending Dr: Dr. Malika Samuels MD Status: DEP CLI Ordering Dr: Malika Samuels MD Date: 01/12/24 Location: [facility] Sex: F C Admitted: Reason For Study: Palpitations Procedure This was a 2D Doppler, Color Flow transthoracic echocardiogram. Exam performed in department. Left Ventricle Normal size and thickness. The left ventricular ejection fraction is 65 %. Normal diastology for age. Right Ventricle Normal right ventricle. Atria The left atrium is mildly enlarged. Normal right atrium. Mitral Valve Significant prolapse of the posterior mitral valve leaflet. Moderate to severe eccentric mitral valve regurgitation. Recommend cardiac MRI or WALTER for further evaluation. Tricuspid Valve Trivial tricuspid valve insufficiency. Normal pulmonary artery pressure. Aortic Valve Trisinus/trileaflet aortic valve. Pulmonic Valve The pulmonic valve is not well visualized. Great Vessels Mildly dilated aortic root. Pericardium/Pleural No pericardial effusion. MMode/2D Measurements Calculations LVIDd: 5.3 cm IVSd: 1.1 cm Ao root diam: 3.7 cm LVIDs: 3.0 cm LVPWd: 0.82 cm LA dimension: 3.6 cm RVDd: 3.7 cm FS: 43.0 % LAV(MOD-bp): 76.1 ml LVAd ap4: 26.4 cm2 SV(MOD-sp4): 49.2 ml LAV(MOD-bp) Indexed: 38.8 ml/m2 LVLd ap4: 7.4 cm LAV(MOD-sp2): 74.2 ml EDV(MOD-sp4): 75.0 ml LAV(MOD-sp4): 60.7 ml EDV(sp4-el): 80.0 ml LVAs ap4: 13.3 cm2 LVLs ap4: 5.8 cm ESV(MOD-sp4): 25.8 ml ESV(sp4-el): 25.8 ml EF(MOD-sp4): 65.6 % EF(sp4-el): 67.8 % SV(sp4-el): 54.3 ml LA A4 area: 19.7 cm2 RA A4 area: 17.2 cm2 TAPSE: 2.2 cm Time Measurements MV dec time: 0.21 sec Doppler Measurements Calculations MV E max vicky: 96.9 cm/sec Lat Peak E' Vicky: 18.1 cm/sec Med Peak E' Vicky: 9.4 cm/sec MV A max vicky: 73.6 cm/sec E/E' lat: 5.4 E/E' med: 10.3 MV E/A: 1.3 MV V2 max: 104.8 cm/sec MV P1/2t max vicky: 104.8 cm/sec Ao V2 max: 133.5 cm/sec MV max P.4 mmHg MV P1/2t: 67.7 msec Ao max P.1 mmHg MV V2 mean: 57.1 cm/sec MV dec slope: 453.6 cm/sec2 Ao V2 mean: 89.1 cm/sec MV mean P.5 mmHg Ao mean P.6 mmHg MV V2 VTI: 28.0 cm MVA(P1/2t): 3.3 cm2 Ao V2 VTI: 27.4 cm AV (velocity ratio): 0.93 LV V1 max: 116.8 cm/sec PA V2 max: 50.9 cm/sec TR max vicky: 235.7 cm/sec LV V1 max P.5 mmHg PA max PG (full): 0.39 mmHg TR max P.2 mmHg LV V1 mean P.7 mmHg LV V1 mean: 75.5 cm/sec LV V1 VTI: 25.6 cm ECHO/Echo Complete Interpretation Summary The left ventricular ejection fraction is 65 %. The left atrium is mildly enlarged. Significant prolapse of the posterior mitral valve leaflet. Moderate to severe eccentric mitral valve regurgitation. Recommend cardiac MRI or WALTER for further evaluation. Mildly dilated aortic root. Ordering Physician: Malika Samuels Referring Physician: Nathan Guzman Performed By: Roverto Dockery and Student 01/15/24 1250 Date Malika Samuels MD CC: Dr. Malika Samuels MD; Dr. 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 Troy Byrd APRN.CNP 01/09/2024 3:36 PM Signed [facility] Cardiology Electrophysiology PRIMARY CARE PHYSICIAN: Nathan Guzman [address] [place] [id number] CHIEF COMPLAINT: History and physical update prior to SVT ablation with Dr. Thomas on 01/28/2024. HISTORY OF PRESENT ILLNESS copied from Dr. Thomas's prior office note on 01/15/2023: Ms. Bhat is a 52 year old female who presents today for evaluation of arrhythmia, accompanied by her . She is referred by Dr Samuels of [facility]. She states that about a year ago she was diagnosed with supraventricular tachycardia (SVT). She experienced palpitations and rapid heartbeats, also a pounding at the base of her neck, her states that he could see the pulsations there. The episode had a duration of about 30 minutes. Since then she has experienced episodes about every other month, sometimes every 3 months. She has experienced in total about five or six episodes. The longest episode has lasted an hour and a half, and for this episode she presented to the [facility] ED, this was 12/24/2022. She states her heart rate was in the 180s bpm range. Prior to this episode, in early November 2022 she had been prescribed metoprolol. But when she was seen in the ER at the end of November, she realized that she was only taking the metoprolol once daily instead of the prescribed twice daily. The episode in November that prompted her to present to the ER was terminated with IV adenosine. An echocardiogram 11/2022 revealed normal LV systolic function. She did have posterior mitral valve leaflet prolapse, with moderate MR. She presents now to discuss treatment options, specifically whether she should have catheter ablation procedure. I have confirmed and edited as necessary, the PFSH and ROS obtained by others. Interval History: Cammie is a pleasant 53-year-old female who presents today for history and physical update prior to SVT ablation with Dr. Thomas on 01/28/2024. Overall Cammie reports she has been feeling decent. She does report last she had about a 25-minute episode of SVT. At that time her primary symptom is heart pounding. Her blood pressure was 100/38 and her heart rate 190. She also felt clammy. She laid down and symptoms resolved. She reports over the past month or two a couple of very brief episodes of SVT lasting a minute or 2 at most. Patient follows with Dr. Samuels of [facility]. Patient has been taking Lopressor at home 25 mg once a day. I explained to patient this is meant to be taken twice a day. She had concerns regarding dose. We reached an agreement that she could take 12.5 mg twice a day and this would provide better coverage/hopefully prevention of future SVT episodes. Lengthy discussion was had regarding what to expect pre-/intra-/post SVT ablation. Topics included procedure overview, MAC, overnight stay in [facility], risk/benefits, holding Lopressor for 1 week prior to procedure with last day to take being 01/20/2024, post restrictions, recovery, and follow-up. Benefits including prevention of future SVT episodes. Low potential risk for bleeding, stroke, or . Patient has an echo scheduled next week. Patient was instructed to eat and drink well day before procedure with nothing after midnight except for medications with small sips of water. Medications, allergies, medical history reviewed with patient. She is scheduled to take her next dose of Tremfya on 01/28/2024. She typically takes this every 2 months. I advised her to hold off on taking Tremfya on 01/28/2024 and wait to take once she is discharged status post ablation. Cammie verbalized understanding and that she had no further questions at this time. PAST MEDICAL HISTORY Diagnosis Date Arthritis Migraine Psoriasis Psoriatic arthritis (HCC) Supraventricular tachycardia (HCC) 01/13/2023 PAST SURGICAL HISTORY Procedure Laterality Date BREAST SURGERY HX ESOPHAGOGASTRODUODENOS COPY TRANSORAL DIAGNOSTIC 04/06/2021 FOOT SURGERY HX Left bone removed from foot HYSTERECTOMY HX adenomyosis, with right oophorectomy LAPS SURG CHOLECYSTECTOMY W/CHOLANGIOGRAPHY 05/15/2021 TONSILLECTOMY HX VAGINAL HYSTERECTOMY Social History Tobacco Use Smoking status: Every Day Packs/day: 0.50 Years: 5.00 Additional pack years: 0.00 Total pack years: 2.50 Types: Cigarettes Last attempt to (more content not included)... [facility] ECG B/O W INTERP (MED OFFICE )on 01-09-2024 Sinus rhythm with a ventricular rate of 72. KS 150. QRS 88. QT/QTc 374/409. [facility] CNPNon 12-25-2023 CNPN Telephone (MediaBoostARDPOB ) JOSECAMMIE Elizabeth ([id number]) 1970 F Date Time Provider Department 12/25/23 NAOMY THOMAS AGCSANDRA During your visit today, we recorded the following information about you: Gisselle Ruffin 12/25/2023 11:35 AM Signed Patient is scheduled for an SVT Ablation on 01/[address] Thomas. The hospital will call the day before between 2-5pm with your arrival time. You should not eat or drink after midnight the day before the procedure. You will need a stacker driver when released from the hospital and you will stay overnight for observation. You should continue to take medications as prescribed the morning of the procedure with just a sip of water but stop metoprolol one week prior to the procedure. HANDP update on 01/08 at 3pm with Troy Byrd [address] [facility] - [address] [place] [address] Left message for Cammie Bhat to call back and confirm date AND instructions Dio Sales RN 12/25/2023 2:05 PM Signed Spoke with pt. She is agreeable to procedure 01/07/24 and HANDP visit 01/09/24. She voices understanding to the instructions, holding metoprolol for 7 days prior and location of HANDP visit. SEBASTIAN Fletcher Emily 12/31/2023 10:28 AM Signed Patient is rescheduled for an SVT Ablation on 01/[address] Thomas. The hospital will call the day before between 2-5pm with your arrival time. You should not eat or drink after midnight the day before the procedure. You will need a stacker driver when released from the hospital and you will stay overnight for observation. You should continue to take medications as prescribed the morning of the procedure with just a sip of water but stop metoprolol one week prior to the procedure. HANDP still on 01/08 at 3pm with Troy Byrd [address] [place] [address] Rd - [address] [place] [address] Spoke with Cammie Bhat on December 31, 2023. Informed of instructions as stated above. Patient verbalized understanding. Jelly Case RN 12/31/2023 11:52 AM Signed Patient's name added to procedure board. SEBASTIAN Pedersen Emily 01/13/2024 10:23 AM Signed Patient is rescheduled for an SVT Ablation on 02/[address] Thomas. The hospital will call the day before between 2-5pm with your arrival time. You should not eat or drink after midnight the day before the procedure. You will need a stacker driver when released from the hospital and you will stay overnight for observation. You should continue to take medications as prescribed the morning of the procedure with just a sip of water but stop metoprolol one week prior to the procedure. HANDP will be redone the morning of the procedure. Left message for Cammie Bhat to call back and confirm date AND instructions Janet Milligan LPN 01/13/2024 1:37 PM Signed Spoke to Ms. Bhat about new date for Ablation. Patient voiced understanding at this time if instructions and confirms the date of her procedure at this time. RAMILA Ca Stacey, RN 01/13/2024 2:25 PM Signed Pt's name has been added to mariano procedure board. SEBASTIAN Fletcher Linda S, RN 02/12/2024 11:52 AM Signed Pt called in, requesting to cancel her ablation on 02/19/24. She states her WALTER is scheduled for 02/16/24 and she has concerns that this does not allow enough time before her procedure. Pt also has concern that she has a plane trip planned on 02/28/24 and she would not be able to fly that soon after her procedure. Please reach out to pt regarding her procedure and possibly rescheduling her procedure. Nasra Dasilva RN Allergies As of Date: 12/25/2023 Noted Allergy Reaction HYOSCYAMINE 01/15/2023 8 - GI Upset Comments: emesis HYDROCODONE 05/15/2021 8 - GI Upset IXEKIZUMAB 01/15/2023 7 - Swelling PENICILLINS 10/03/2005 4 - Hives Date Reviewed: 01/15/2023 Reviewed by: Naomy Thomas MD - Fully Assessed Reason for Visit: Preparations For Procedures [899] Prescriptions as of 02/12/2024 - metoprolol tartrate, short acting, (LOPRESSOR) 25 mg tablet Take 0.5 tablets by mouth two times a day. - desvenlafaxine ER (PRISTIQ) 50 mg 24 hr tablet Take 1 tablet by mouth every afternoon. - desvenlafaxine ER (PRISTIQ) 25 mg 24 hr tablet take 1 tablet by mouth daily with 50 milligram tablet - losartan (COZAAR) 100 mg tablet Take 1 tablet by mouth every afternoon. - celecoxib (CELEBREX) 200 mg capsule take 1 capsule by mouth twice a day with food for 2 weeks then 1 capsule daily - colestipol (COLESTID) 1 gram tablet Take 2 g by mouth twice daily. - TREMFYA 100 mg/mL AutoInjector - pantoprazole DR (PROTONIX) 40 mg tablet Take 80 mg by mouth once daily. - topiramate (TOPAMAX) 25 mg tablet Take 75 mg by mouth once daily. Problem List As Of Date 12/25/2023 Noted Resolved AGRANULOCYTOSIS [288.0] 11/02/2005 IRON DEFIC ANEMIA NOS [D50.9] 11/05/2005 LEUKOCYTOPEN (more content not included)... Normal [facility] Clostridioides difficile nuc leic acid assay by PCRon 11-21-2023 C. difficile DNA BAM+probe Ql (Unsp spec) [facility] Absolute lymphocyte countOrd ered By: Jimbo Zavaleta on 11-20-2023 Lymphocytes Auto (Unsp spec) [#/Vol] 2.46 10*3/uL 0.83-4.51 [facility] Automated lymphocyte count a s percentage of total leukocytesOrdered By: Jimbo Zavaleta on 11-20-2023 Lymphocytes/100 WBC Auto (Unsp spec) 35.9 % 19-41 [facility] Basophil percentageOrdered B y: Jimbo Zavaleta on 11-20-2023 Basophils/100 WBC (Bld) 0.7 % 0-1 [facility] Bilirubin [Mass/Vol] 0.40 mg/dL 0.20-1.00 [facility] Comment on above: For patients on eltr ombopag therapy, use of Dimension [place] TBIL is not recommended. Chloride [Moles/Vol] 104 mmol/L 98-107 [facility] Eosinophils/100 WBC (Bld) 2.5 % 0-5 [facility] Glucose [Mass/Vol] 106 mg/dL 74-106 [facility] Comment on above: Fasting Glucose resu lt from 100 to 125 mg/dL suggests IMPAIRED HOMEOSTASIS per A.D.A. criteria. Hemoglobin (Bld) [Mass/Vol] 14.3 g/dL 12.0-15.0 [facility] Monocytes/100 WBC (Bld) 8.0 % 0-10 [facility] Neutrophils (Bld) [#/Vol] 3.6 10*3/uL 2.0-7.7 [facility] Neutrophils/100 WBC (Bld) 52.6 % 47-70 [facility] Potassium [Moles/Vol] 3.1 mmol/L 3.5-5.1 [facility] Protein [Mass/Vol] 8.0 g/dL 6.4-8.2 [facility] Sodium [Moles/Vol] 135 mmol/L 136-145 [facility] WBC (Bld) [#/Vol] 6.9 10*3/uL 4.4-11.0 [facility] Determination of erythrocyte mean corpuscular volume (MCV)Ordered By: Jimbo Zavaleta on 11-20-2023 MCV (RBC) [Entitic vol] 94.1 fL 81-99 [facility] Direct bilirubinOrdered By: Jimbo Zavaleta on 11-20-2023 Bilirubin.direct [Mass/Vol] 0.10 mg/dL 0.00-0.30 [facility] Erythrocyte distribution wid th ratioOrdered By: Jimbo Zavaleta on 11-20-2023 Erythrocyte distribution width (RBC) [Ratio] 12.2 % 11.6-14.6 [facility] Erythrocyte distribution wid th standard deviationOrdered By: Jimbo Zavaleta on 11-20-2023 Erythrocyte distribution width (RBC) [Entitic vol] 42.4 fL 35.1-43.9 [facility] Hematocrit Auto (Bld) [Volum e fraction]Ordered By: Jimbo Zavaleta on 11-20-2023 Hematocrit (Bld) [Volume fraction] 41.2 % 37-47 [facility] Immature granulocytes/100 WB C Auto (Bld)Ordered By: Jimbo Zavaleta on 11-20-2023 Immature granulocytes/100 WBC (Bld) 0.300 % 0.0-0.9 [facility] Comment on above: IG% - Immature Granu locytes (promyelocytes, myelocytes and metamyelocytes) > 1% indicates that a LEFT SHIFT is Present. Laboratory - Chemistry and C hemistry - challengeOrdered By: Jimbo Zavaleta on 11-20-2023 ALP [Catalytic activity/Vol] 79 U/L 45-117 [facility] ALT [Catalytic activity/Vol] 43 U/L 13-56 [facility] CO2 [Moles/Vol] 23.0 mmol/L 21.0-32.0 [facility] Globulin (S) [Mass/Vol] 4.4 g/dL 2.2-4.2 [facility] Lipase [Catalytic activity/Vol] 58 U/L 13-75 [facility] Comment on above: Please note:LIPASE r evised reference range effective 22. New Lipase methodology. Expected to produce lower values than the previous assay method. NEW Reference Range: 13 - 75 U/L Magnesium [Mass/Vol] 2.1 mg/dL 1.6-2.6 [facility] Urea nitrogen/Creatinine [Mass ratio] 20.5 mg/mg 10-20 [facility] Laboratory - Hematology and Cell countsOrdered By: Jimbo Zavaleta on 11-20-2023 MCH (RBC) [Entitic mass] 32.6 pg 27.0-32.0 [facility] MCHC (RBC) [Mass/Vol] 34.7 g/dL 32-36 [facility] Nucleated RBC/100 WBC (Bld) [Ratio] 0 % 0-5 [facility] Platelet mean volume (Bld) [Entitic vol] 9.6 fL 6.2-12.0 [facility] Platelets (Bld) [#/Vol] 233 10*3/uL 150-450 [facility] No Panel InformationOrdered By: Jimbo Zavaleta on 11-20-2023 Estimated Creatinine Clearance Calc 80.98 ml/min [facility] Estimated GFR (MDRD) Amer 92 mL/min >60 [facility] Comment on above: GFR Calc Estimated GFR (MDRD) Non-Af Amer 76 mL/min >60 [facility] Comment on above: Non- GFR Calc RBC Auto (Bld) [#/Vol]Ordere d By: Jimbo Zavaleta on 11-20-2023 RBC (Bld) [#/Vol] 4.38 10*6/uL 4.2-5.4 [facility] Serum or plasma calcium francois urement (mass/volume)Ordered By: Jimbo Zavaleta on 11-20-2023 Calcium [Mass/Vol] 9.1 mg/dL 8.5-10.1 [facility] Serum or plasma creatinine m easurement (mass/volume)Ordered By: Jimbo Zavaleta on 11-20-2023 Creatinine [Mass/Vol] 0.83 mg/dL 0.55-1.02 [facility] Comment on above: The validity of the calculated GFR & GFRAA in patients over 70 years has not been determined. Clinical correlation is essential. Serum or plasma urea nitroge n measurement (mass/volume)Ordered By: Jimbo Zavaleta on 11-20-2023 Urea nitrogen [Mass/Vol] 17 mg/dL 7-18 [facility] Thin prep Papanicolaou smear with manual screeningOrdered By: Jimbo Zavaleta on 11-20-2023 Thin prep Papanicolaou smear with manual screening 3.6 g/dL 3.2-5.0 [facility] Thin prep Papanicolaou smear with manual screening 34 U/L 15-37 [facility] Thin prep Papanicolaou smear with manual screening 8 5-15 [facility] C reactive proteinon 024 CRP [Mass/Vol] 0.21 mg/dL Normal <1.00 [facility] Comment on above: Performed By: #### 1 988-5 #### BENNIE Williamson ([id number]) [facility] ([facility]) [address] [place] [address] 36483 CBC W Auto Differential pane l (Bld)on 08-25-2023 Basophils (Bld) [#/Vol] 0.06 x10*3/uL Normal 0.00-0.10 [facility] Comment on above: Performed By: #### 5 7021-8 #### BENNIE Williamson ([id number]) [facility] ([facility]) [address] [place] [address] 30481 Basophils/100 WBC (Bld) 1.3 % Normal 0.0-2.0 [facility] Comment on above: Performed By: #### 5 7021-8 #### BENNIE Williamson ([id number]) [facility] ([facility]) [address] [place] [address] 90644 Eosinophils (Bld) [#/Vol] 0.26 x10*3/uL Normal 0.00-0.70 [facility] Comment on above: Performed By: #### 5 7021-8 #### BENNIE Williamson ([id number]) [facility] ([facility]) [address] [place] [address] 65162 Eosinophils/100 WBC (Bld) 5.5 % Normal 0.0-6.0 [facility] Comment on above: Performed By: #### 5 7021-8 #### BENNIE Williamson ([id number]) [facility] ([facility]) [address] [place] [address] 80469 Erythrocyte distribution width (RBC) [Ratio] 12.2 % Normal 11.5-14.5 [facility] Comment on above: Performed By: #### 5 7021-8 #### BENNIE BAIN L ([id number]) [facility] ([facility]) [address] [place] [address] 54032 Hematocrit (Bld) [Volume fraction] 40.3 % Normal 36.0-46.0 [facility] Comment on above: Performed By: #### 5 7021-8 #### BENNIE BAIN L ([id number]) [facility] ([facility]) [address] [place] [address] 36479 Hemoglobin (Bld) [Mass/Vol] 14.8 g/dL Normal 12.0-16.0 [facility] Comment on above: Performed By: #### 5 7021-8 #### BENNIE BAIN L ([id number]) [facility] ([facility]) [address] [place] [address] 63754 Immature granulocytes (Bld) [#/Vol] 0.01 x10*3/uL Normal 0.00-0.70 [facility] Comment on above: Performed By: #### 5 7021-8 #### BENNIE BAIN L ([id number]) [facility] ([facility]) [address] [place] [address] 97535 Immature granulocytes/100 WBC (Bld) 0.2 % Normal 0.0-0.9 [facility] Comment on above: Result Comment: Kajal ture Granulocyte Count (IG) includes promyelocytes, myelocytes and metamyelocytes but does not include bands. Percent differential counts (%) should be interpreted in the context of the absolute cell counts (cells/UL). Performed By: #### 5 7021-8 #### BENNIE RANDHAWAMOMATTHIAS L ([id number]) [facility] ([facility]) [address] [place] [address] 40178 Lymphocytes (Bld) [#/Vol] 1.73 x10*3/uL Normal 1.20-4.80 [facility] Comment on above: Performed By: #### 5 7021-8 #### BENNIE Williamson ([id number]) [facility] ([facility]) [id number] [place] [address] 36304 Lymphocytes/100 WBC (Bld) 36.9 % Normal 13.0-44.0 [facility] Comment on above: Performed By: #### 5 7021-8 #### BENNIE Williamson ([id number]) [facility] ([facility]) [address] [place] [address] 37229 MCH (RBC) [Entitic mass] 36.9 pg High 26.0-34.0 [facility] Comment on above: Performed By: #### 5 7021-8 #### BENNIE Williamson ([id number]) [facility] ([facility]) [address] [place] [address] 79991 MCHC (RBC) [Mass/Vol] 36.7 g/dL High 32.0-36.0 [facility] Comment on above: Performed By: #### 5 7021-8 #### BENNIE Williamson ([id number]) [facility] ([facility]) [address] [place] [address] 92782 MCV (RBC) [Entitic vol] 101 fL High 80-100 [facility] Comment on above: Performed By: #### 5 7021-8 #### BENNIE Williamson ([id number]) [facility] ([facility]) [address] [place] [address] 42772 Monocytes (Bld) [#/Vol] 0.44 x10*3/uL Normal 0.10-1.00 [facility] Comment on above: Performed By: #### 5 7021-8 #### BENNIE Williamson ([id number]) [facility] ([facility]) [address] [place] [address] 79646 Monocytes/100 WBC (Bld) 9.4 % Normal 2.0-10.0 [facility] Comment on above: Performed By: #### 5 7021-8 #### BENNIE Williamson ([id number]) [facility] ([facility]) [address] [place] [address] 98967 Neutrophils (Bld) [#/Vol] 2.19 x10*3/uL Normal 1.20-7.70 [facility] Comment on above: Result Comment: Perc ent differential counts (%) should be interpreted in the context of the absolute cell counts (cells/uL). Performed By: #### 5 7021-8 #### BENNIE BAIN L ([id number]) [facility] ([facility]) [id number] [place] [address] 75718 Neutrophils/100 WBC (Bld) 46.7 % Normal 40.0-80.0 [facility] Comment on above: Performed By: #### 5 7021-8 #### BENNIE Williamson ([id number]) [facility] ([facility]) [id number] [place] [address] 21813 Nucleated RBC/100 WBC (Bld) [Ratio] 0.0 /100 WBCs Normal 0.0-0.0 [facility] Comment on above: Performed By: #### 5 7021-8 #### BENNIE BAIN L ([id number]) [facility] ([facility]) [id number] [place] [address] 80753 Platelets (Bld) [#/Vol] 242 x10*3/uL Normal 150-450 [facility] Comment on above: Performed By: #### 5 7021-8 #### BENNIE RANDHAWAMOMATTHIAS L ([id number]) [facility] ([facility]) [id number] [place] [address] 16484 RBC (Bld) [#/Vol] 4.01 x10*6/uL Normal 4.00-5.20 [facility] Comment on above: Performed By: #### 5 7021-8 #### BENNIE RANDHAWAMOMATTHIAS L ([id number]) [facility] ([facility]) [id number] [place] [address] 44087 WBC (Bld) [#/Vol] 4.7 x10*3/uL Normal 4.4-11.3 [facility] Comment on above: Performed By: #### 5 7021-8 #### BENNIE Williamson ([id number]) [facility] ([facility]) [address] [place] [address] 32246 Calcidiolon 08-25-2023 25-hydroxyvitamin D3 [Mass/Vol] 47 ng/mL Normal 30-100 [facility] Comment on above: Order Comment: Defic iency: < 20 ng/ml Insufficiency: 20-29 ng/ml Sufficiency: 30-100 ng/ml This assay accurately quantifies the sum of Vitamin D3, 25-Hydroxy and Vitamin D2,25-Hydroxy. Performed By: #### 1 989-3 #### BENNIE Williamson ([id number]) [facility] ([facility]) [address] [place] [address] 40728 Comprehensive metabolic 2000 panelon 08-25-2023 Albumin BCP dye [Mass/Vol] 4.1 g/dL Normal 3.4-5.0 [facility] Comment on above: Performed By: #### 2 4323-8 #### BENNIE Williamson ([id number]) [facility] ([facility]) [address] [place] [address] 49924 ALP [Catalytic activity/Vol] 67 U/L Normal 33-110 [facility] Comment on above: Performed By: #### 2 4323-8 #### BENNIE Williamson ([id number]) [facility] ([facility]) [address] [place] [address] 79156 ALT With P-5'-P [Catalytic activity/Vol] 30 U/L Normal 7-45 [facility] Comment on above: Result Comment: Elaine ents treated with Sulfasalazine may generate falsely decreased results for ALT. Performed By: #### 2 4323-8 #### BENNIE Williamson ([id number]) [facility] ([facility]) [id number] [place] [address] 31793 Anion gap [Moles/Vol] 13 mmol/L Normal 10-20 [facility] Comment on above: Performed By: #### 2 4323-8 #### BENNIE Williamson ([id number]) [facility] ([facility]) [address] [place] [address] AST With P-5'-P [Catalytic activity/Vol] 28 U/L Normal 9-39 [facility] Comment on above: Performed By: #### 2 4323-8 #### BENNIE Williamson ([id number]) [facility] ([facility]) [id number] [place] [address] 87337 Bilirubin [Mass/Vol] 0.6 mg/dL Normal 0.0-1.2 [facility] Comment on above: Performed By: #### 2 4323-8 #### BENNIE Williamson ([id number]) [facility] ([facility]) [id number] [place] [address] 28700 Calcium [Mass/Vol] 9.8 mg/dL Normal 8.6-10.6 [facility] Comment on above: Performed By: #### 2 4323-8 #### BENNIE Williamson ([id number]) [facility] ([facility]) [address] [place] [address] 70241 Chloride [Moles/Vol] 103 mmol/L Normal 98-107 [facility] Comment on above: Performed By: #### 2 4323-8 #### BENNIE Williamson ([id number]) [facility] ([facility]) [id number] [place] [address] 44469 CO2 [Moles/Vol] 27 mmol/L Normal 21-32 [facility] Comment on above: Performed By: #### 2 4323-8 #### BENNIE Williamson ([id number]) [facility] ([facility]) [id number] [place] [address] 24532 Creatinine [Mass/Vol] 0.76 mg/dL Normal 0.50-1.05 [facility] Comment on above: Performed By: #### 2 4323-8 #### BENNIE Williamson ([id number]) [facility] ([facility]) [address] [place] [address] GFR/1.73 sq M.predicted MDRD (S/P/Bld) [Vol rate/Area] mL/min/{1.73_m2} Normal >60 [facility] Comment on above: Result Comment: Calc ulations of estimated GFR are performed using the 2020 CKD-EPI Study Refit equation without the race variable for the IDMS-Traceable creatinine methods. https://jasn.asnjournals.org/content/early//ASN.84536 79653 Performed By: #### 2 4323-8 #### BENNIE Williamson ([id number]) [facility] ([facility]) [address] [place] [address] Glucose [Mass/Vol] 90 mg/dL Normal 74-99 [facility] Comment on above: Performed By: #### 2 4323-8 #### BENNIE BAIN L ([id number]) [facility] ([facility]) [id number] [place] [address] 03461 Potassium [Moles/Vol] 4.0 mmol/L Normal 3.5-5.3 [facility] Comment on above: Performed By: #### 2 4323-8 #### BENNIE BAIN L ([id number]) [facility] ([facility]) [address] [place] [address] Protein [Mass/Vol] 7.6 g/dL Normal 6.4-8.2 [facility] Comment on above: Performed By: #### 2 4323-8 #### BENNIE BAIN L ([id number]) [facility] ([facility]) [address] [place] [address] Sodium [Moles/Vol] 139 mmol/L Normal 136-145 [facility] Comment on above: Performed By: #### 2 4323-8 #### BENNIE BAIN L ([id number]) [facility] ([facility]) [address] [place] [address] Urea nitrogen [Mass/Vol] 15 mg/dL Normal 6-23 [facility] Comment on above: Performed By: #### 2 4323-8 #### BENNIE Williamson ([id number]) [facility] ([facility]) [address] [place] [address] ESR Westergren method (Bld) [Velocity]on 08-25-2023 ESR (Bld) [Velocity] 13 mm/h Normal 0-30 [facility] Comment on above: Performed By: #### 4 537-7 #### BENNIE Williamson ([id number]) [facility] ([facility]) [address] [place], [place] [id number] CNPNon 06-26-2023 CNPN Telephone ([facility]) CAMMIE BHAT ([id number]) 1970 F Date Time Provider Department 06/26/23 NAOMY THOMAS During your visit today, we recorded the following information about you: Naomy Thomas MD 06/26/2023 9:07 PM Signed ----- Message from Gisselle Ruffin sent at 06/26/2023 7:37 AM EST ----- Regarding: FW: ablation Patient canceled because she said she was having it done elsewhere. She called back in and changed her mind and would like to proceed with you. Please submit a new procedure request as previous one was canceled. ----- Message ----- From: Quiana Hu Sent: 06/23/2023 8:56 AM EST To: Shilpa Ruffin Subject: ablation Patient called and stated that she wants to continue with her procedure that she originally cancelled with Dr. Thomas for an ablation. I told pt I would forward this over and someone would contact her on the next steps. Naomy Thomas MD 06/26/2023 9:09 PM Signed [facility] [place] [facility] Electrophysiology (EP) Procedure request submitted. Naomy Thomas MD June 26, 2023 9:07 PM Allergies As of Date: 06/26/2023 Noted Allergy Reaction HYOSCYAMINE 01/15/2023 8 - GI Upset Comments: emesis HYDROCODONE 05/15/2021 8 - GI Upset [id number] 01/15/2023 7 - Swelling PENICILLINS 10/03/2005 4 - Hives Date Reviewed: 01/15/2023 Reviewed by: Naomy Thomas MD - Fully Assessed Primary Visit Diagnosis:Supraventric ular tachycardia [I47.10] Order(s):SURGICAL REQUEST - ELECTIVE (02/2020) [[id number]] Order #: [id number]: 1 Prescriptions as of 06/26/2023 - celecoxib (CELEBREX) 200 mg capsule take 1 capsule by mouth twice a day with food for 2 weeks then 1 capsule daily - colestipol (COLESTID) 1 gram tablet Take 2 g by mouth twice daily. - TREMFYA 100 mg/mL AutoInjector - losartan (COZAAR) 50 mg tablet Take 50 mg by mouth daily at bedtime. - pantoprazole DR (PROTONIX) 40 mg tablet Take 80 mg by mouth once daily. - metoprolol tartrate, short acting, (LOPRESSOR) 25 mg tablet Take 25 mg by mouth twice daily. - DESVENLAFAXINE SUCCINATE (PRISTIQ ORAL) Take 50 mg by mouth daily at bedtime. - topiramate (TOPAMAX) 25 mg tablet Take 75 mg by mouth once daily. 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] 01/13/2023 Rheumatic fever without heart involvement [I00] 01/13/2023 Supraventricular tachycardia (HCC) [I47.10] 01/13/2023 Acute diarrhea [R19.7] 07/02/2022 Arthropathy [M12.9] 01/06/2023 Elevated liver enzymes [R74.8] 01/15/2023 Essential (primary) hypertension [I10] 11/11/2022 Fracture of neck of metacarpal bone [S62.339A] 01/15/2023 Heart murmur [R01.1] 11/11/2022 Patellofemoral pain syndrome [M22.2X9] 01/15/2023 Osteoarthritis of left knee [M17.12] 12/06/2022 Sludge in gallbladder [K82.8] 01/15/2023 Steatosis of liver [K76.0] 01/15/2023 Synovial cyst of left knee [M71.22] 01/15/2023 Tear of medial meniscus of knee [S83.249A] 04/17/2022 Encounter Status:Closed by NAOMY THOMAS on 06/26/23 Normal [facility] Absolute lymphocyte countOrd ered By: Ayde Hearn on 01-09-2023 Lymphocytes Auto (Unsp spec) [#/Vol] 1.78 10*3/uL 0.83-4.51 [facility] Basophil percentageOrdered B y: Ayde Hearn on 01-09-2023 Basophils/100 WBC (Bld) 1.0 % 0-1 [facility] Bilirubin [Mass/Vol] 0.50 mg/dL 0.20-1.00 [facility] Comment on above: For patients on eltr ombopag therapy, use of Dimension [place] TBIL is not recommended. Chloride [Moles/Vol] 109 mmol/L 98-107 [facility] Eosinophils/100 WBC (Bld) 5.4 % 0-5 [facility] Glucose [Mass/Vol] 95 mg/dL 74-106 [facility] Neutrophils (Bld) [#/Vol] 3.2 10*3/uL 2.0-7.7 [facility] Neutrophils/100 WBC (Bld) 54.1 % 47-70 [facility] Potassium [Moles/Vol] 3.5 mmol/L 3.5-5.1 [facility] Protein [Mass/Vol] 7.8 g/dL 6.4-8.2 [facility] Sodium [Moles/Vol] 141 mmol/L 136-145 [facility] WBC (Bld) [#/Vol] 5.9 10*3/uL 4.4-11.0 [facility] Blood erythrocytes count (nu mber/volume)Ordered By: Ayde Hearn on 01-09-2023 RBC (Bld) [#/Vol] 4.10 10*6/uL 4.2-5.4 [facility] Blood hemoglobin measurement (mass/volume)Ordered By: Ayde Hearn on 01-09-2023 Hemoglobin (Bld) [Mass/Vol] 14.5 g/dL 12.0-15.0 [facility] Blood lymphocytes/100 leukoc ytesOrdered By: Ayde Hearn on 01-09-2023 Lymphocytes/100 WBC (Bld) 30.2 % 19-41 [facility] Blood monocytes/100 leukocyt esOrdered By: Ayde Hearn on 01-09-2023 Monocytes/100 WBC (Bld) 9.0 % 0-10 [facility] Blood platelet mean volumeOr dered By: Ayde Hearn on 01-09-2023 Platelet mean volume (Bld) [Entitic vol] 9.9 fL 6.2-12.0 [facility] Determination of erythrocyte mean corpuscular volume (MCV)Ordered By: Ayde Hearn on 01-09-2023 MCV (RBC) [Entitic vol] 99.8 fL 81-99 [facility] Hematocrit Auto (Bld) [Volum e fraction]Ordered By: Ayde Hearn on 01-09-2023 Hematocrit (Bld) [Volume fraction] 40.9 % 37-47 [facility] Laboratory - Chemistry and C hemistry - challengeOrdered By: Ayde Hearn on 01-09-2023 ALP [Catalytic activity/Vol] 76 U/L 45-117 [facility] ALT [Catalytic activity/Vol] 30 U/L 13-56 [facility] CO2 [Moles/Vol] 25.0 mmol/L 21.0-32.0 [facility] Globulin (S) [Mass/Vol] 4.4 g/dL 2.2-4.2 [facility] Urea nitrogen/Creatinine [Mass ratio] 16.1 mg/mg 10-20 [facility] Laboratory - Hematology and Cell countsOrdered By: Ayde Hearn on 01-09-2023 Erythrocyte distribution width (RBC) [Entitic vol] 43.8 fL 35.1-43.9 [facility] Erythrocyte distribution width (RBC) [Ratio] 12.3 % 11.6-14.6 [facility] Immature granulocytes/100 WBC (Bld) 0.300 % 0.0-0.9 [facility] Comment on above: IG% - Immature Granu locytes (promyelocytes, myelocytes and metamyelocytes) > 1% indicates that a LEFT SHIFT is Present. MCH (RBC) [Entitic mass] 35.4 pg 27.0-32.0 [facility] Nucleated RBC/100 WBC (Bld) [Ratio] 0 % 0-5 [facility] MCHC Auto (RBC) [Mass/Vol]Or dered By: Ayde Hearn on 01-09-2023 MCHC (RBC) [Mass/Vol] 35.5 g/dL 32-36 [facility] No Panel InformationOrdered By: Ayde Hearn on 01-09-2023 Estimated GFR (MDRD) Amer 81 mL/min >60 [facility] Comment on above: GFR Calc Estimated GFR (MDRD) Non-Af Amer 67 mL/min >60 [facility] Comment on above: Non- GFR Calc Hepatitis B Surface Antigen Non-Reactive Nonreactive [facility] Hepatitis C Antibody Non-Reactive Nonreactive [facility] Comment on above: Non Reactive: < 0.8 Equivocal: >/= 0.8 to < 1.0 Reactive: >/= 1.0The CDC recommends that a reactive/equivocal HCV antibody result be followed up by the HCV Nucleic Acid Amplificationtest (283053) Platelets bldOrdered By: Neela Hearn on 01-09-2023 Platelets (Bld) [#/Vol] 237 10*3/uL 150-450 [facility] Qualitative QuantiFERON-TB g old in tube testOrdered By: Ayde Hearn on 01-09-2023 M. tuberculosis tuberculin stim IFN-g Ql (Bld) 0.08 IU/mL . [facility] Serum hepatitis B virus core antibody detectionOrdered By: Ayde Hearn on 01-09-2023 HBV core Ab Ql (S) Negative Negative [facility] Comment on above: Performed at: [address] [id number] Director: Fred Agustin PhD, Phone: [phone] Serum hepatitis B virus surf phylicia antibody IgG detectionOrdered By: Ayde Hearn on 01-09-2023 HBV surface IgG Ql (S) Non-Reactive [facility] Comment on above: Non Reactive: Incons istent with immunity less than <10 mIU/mL Reactive: Consistent with immunity greater than or equal to 10 mIU/mL Serum or plasma albumin francois urement (mass/volume)Ordered By: Ayde Hearn on 01-09-2023 Albumin [Mass/Vol] 3.4 g/dL 3.2-5.0 [facility] Serum or plasma albumin/glob ulin mass ratioOrdered By: Ayde Hearn on 01-09-2023 Albumin/Globulin [Mass ratio] 0.8 {ratio} 0.9-2.4 [facility] Serum or plasma calcium francois urement (mass/volume)Ordered By: Ayde Hearn on 01-09-2023 Calcium [Mass/Vol] 9.0 mg/dL 8.5-10.1 [facility] Serum or plasma creatinine m easurement (mass/volume)Ordered By: Ayde Hearn on 01-09-2023 Creatinine [Mass/Vol] 0.93 mg/dL 0.55-1.02 [facility] Comment on above: The validity of the calculated GFR & GFRAA in patients over 70 years has not been determined. Clinical correlation is essential. Serum or plasma urea nitroge n measurement (mass/volume)Ordered By: Ayde Hearn on 01-09-2023 Urea nitrogen [Mass/Vol] 15 mg/dL 7-18 [facility] Thin prep Papanicolaou smear with manual screeningOrdered By: Ayde Hearn on 01-09-2023 Thin prep Papanicolaou smear with manual screening 22 U/L 15-37 [facility] Thin prep Papanicolaou smear with manual screening 7 5-15 [facility] Thin prep Papanicolaou smear with manual screening Comment . [facility] Comment on above: QuantiFERON-TB Gold Plus is a qualitative indirect test forM tuberculosis infection (including disease) and isintended for use in conjunction with risk assessment,radiography, and other medical and diagnostic evaluations.The QuantiFERON-TB Gold Plus result is determined bysubtracting the Nil value from either TB antigen (Ag)value. The Mitogen tube serves as a control for the test. Thin prep Papanicolaou smear with manual screening 0.09 IU/mL . [facility] Thin prep Papanicolaou smear with manual screening 0.08 IU/mL . [facility] Thin prep Papanicolaou smear with manual screening > 10.00 IU/mL . [facility] Thin prep Papanicolaou smear with manual screening Negative Negative [facility] Comment on above: No response to M tub erculosis antigens detected.Infection with M tuberculosis is unlikely, but high riskindividuals should be considered for additional testing(ATS/IDSA/CDC Clinical Practice Guidelines, 2017). Thereference range is an Antigen minus Nil result of <0.35IU/mL.The specimen received for QuantiFERON testing was incubatedby the ordering institution. Specific procedures outlinedin our Directory of Services and in the package insert forthe QuantiFERON Gold (In Tube) test must be followed toenable for proper stimulation of cells for the productionof interferon gamma. Chemiluminescence immunoassaymethodology C-REACTIVE PROTEINon 023 C-REACTIVE PROTEIN 0.61 mg/dL Normal [facility] Comment on above: Result Comment: REF VALUE < 1.00 Performed By: #### C RP #### [facility] [id number] [place] [address] CITRULLINE ANTIBODYon 2022 CITRULLINE ANTIBODY <1 Normal [facility] Comment on above: Result Comment: THE TEST FOR ANTIBODIES SPECIFIC FOR CYCLIC CITRULLINATED PEPTIDE (CCP) HAS SHOWN TO BE VALUABLE IN THE DIAGNOSIS OF RHEUMATOID ARTHRITIS. THE DIAGNOSTIC VALUE OF ANTIBODIES TO CCP IN JUVENILE RHEUMATOID ARTHRITIS PATIENTS HAS NOT BEEN DETERMINED. ANTIBODIES TO CENTROMERE OR SS-A AND MYELOMA IGG MAY BE REACTIVE IN THIS ASSAY. REF VALUES NEGATIVE < 3 U/ML POSITIVE >=3 U/ML Performed By: #### C ITAB #### [facility] [address] [place] [address] RHEUMATOID FACTORon 01-08-20 23 RHEUMATOID FACTOR <10 Normal 0 - 15 [facility] Comment on above: Performed By: #### R F #### [facility] [address] [place] [address] URIC ACIDon 01-07-2023 Urate [Mass/Vol] 4.8 mg/dL Normal 2.3 - 6.7 [facility] Comment on above: Result Comment: Carrie puncture immediately after or during the administration of Metamizole may lead to falsely low results. Testing should be performed immediately prior to Metamizole dosing. Performed By: #### U LAURA #### [facility] [address] [place] [address] BILATERAL HAND 2 VIEWSon BILATERAL HAND 2 VIEWS Patient Name: CAMMIE BHAT STUDY: BILATERAL HAND 2 VIEWS; ; 01/06/2023 2:55 pm INDICATION: r/o erosions or calcinosis M12.9: Arthropathy. COMPARISON: None. ACCESSION NUMBER(S): [id number] ORDERING CLINICIAN: RUDY COKER FINDINGS: Right hand: Erosive osteoarthritis with gall wing deformity at the 5th DIP. Otherwise, joint spaces are maintained. No fracture or dislocation. No significant soft tissue swelling. Left hand: Joint spaces are maintained. No fracture or dislocation. No significant soft tissue swelling. 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 Otherwise, no acute findings bilaterally. Electronically signed by: AJ JARVIS MD Normal [facility] BILATERAL KNEE; 1 OR 2 VIEWS on 01-06-2023 BILATERAL KNEE; 1 OR 2 VIEWS Patient Name: CAMMIE BHAT STUDY: BILATERAL KNEE; 1 OR 2 VIEWS; ; 01/06/2023 2:56 pm INDICATION: r/o erosions or calcinosis M12.9: Arthropathy. COMPARISON: None. ACCESSION NUMBER(S): [id number] ORDERING CLINICIAN: RUDY COKER FINDINGS: Left knee: Mild medial joint space narrowing. Small marginal osteophytes. Small joint effusion. No significant soft tissue swelling. No acute fracture or dislocation. Left knee: Mild medial joint space narrowing. Small marginal osteophytes and mild subchondral sclerosis. No joint effusion. No fracture or dislocation. No significant soft tissue swelling. IMPRESSION: No acute findings bilaterally. Mild osteoarthritis both knees. Electronically signed by: AJ JARVIS MD Normal [facility] C Reactive Protein, Serumon 01-06-2023 CRP [Mass/Vol] 0.61 mg/dL [facility] [address] Work Phone: Comment on above: REF VALUE< 1.00 Citrulline Antibodyon 2022 Cyclic citrullinated peptide IgG Qn <1 [facility] [address] Work Phone: Comment on above: THE TEST FOR ANTIBOD IES SPECIFIC FOR CYCLICCITRULLINATED PEPTIDE (CCP) HAS SHOWN TO BEVALUABLE IN THE DIAGNOSIS OF RHEUMATOIDARTHRITIS. THE DIAGNOSTIC VALUE OFANTIBODIES TO CCP IN JUVENILE RHEUMATOIDARTHRITIS PATIENTS HAS NOT BEEN DETERMINED.ANTIBODIES TO CENTROMERE OR SS-A AND MYELOMA IGG MAY BE REACTIVE IN THIS ASSAY. REF VALUES NEGATIVE < 3 U/ML POSITIVE >=3 U/ML Radiologyon 01-06-2023 XR Hand - bilateral 2 Views Normal [facility] [address] DO Work Phone: Rheumatoid Factor, Serum or Plasmaon 01-06-2023 Rheumatoid factor Nephelometry Qn (S) <10 0 - 15 -Rheumatol [facility] [address] DO Work Phone: SEDIMENTATION RATE, ERYTHROC YTEon 01-06-2023 SEDIMENTATION RATE, ERYTHROCYTE 5 mm/h Normal 0 - 30 [facility] Comment on above: Performed By: #### E SRWS #### [facility] [address] [address] Sedimentation Rate, Erythroc yteon 01-06-2023 ESR (Bld) [Velocity] 5 mm/h 0 - 30 -R heumatolog [facility] [address] Work Phone: Tobacco Screening.on 023 Fall risk assessment a) No falls within the last year [facility] [address] Work Phone: Tobacco use status [facility]PH[facility] b) No MP-Rheumatolog [facility] [address] DO Work Phone: Uric Acid, Serumon Urate [Mass/Vol] 4.8 mg/dL 2.3 - 6.7 [facility] [address] Work Phone: Comment on above: Venipuncture immedia tely after or during the administration of Metamizole may lead to falsely low results. Testing should be performed immediately prior to Metamizole dosing. Xray Bilateral Knee, 1 or 2 viewson 01-06-2023 XR Knee - bilateral 2 Views [facility] [address] Work Phone: Absolute lymphocyte countOrd ered By: Jimbo Zavaleta on 12-24-2022 Lymphocytes Auto (Unsp spec) [#/Vol] 3.25 10*3/uL 0.83-4.51 [facility] Basophil percentageOrdered B y: Jimbo Zavaleta on 12-24-2022 Basophils/100 WBC (Bld) 0.9 % 0-1 [facility] Chloride [Moles/Vol] 103 mmol/L 98-107 [facility] Eosinophils/100 WBC (Bld) 4.4 % 0-5 [facility] Glucose [Mass/Vol] 104 mg/dL 74-106 [facility] Comment on above: Fasting Glucose resu lt from 100 to 125 mg/dL suggests IMPAIRED HOMEOSTASIS per A.D.A. criteria. Neutrophils (Bld) [#/Vol] 5.0 10*3/uL 2.0-7.7 [facility] Neutrophils/100 WBC (Bld) 50.9 % 47-70 [facility] Potassium [Moles/Vol] 3.2 mmol/L 3.5-5.1 [facility] Comment on above: Moderate Hemolysis, Result may be falsely increased. Sodium [Moles/Vol] 138 mmol/L 136-145 [facility] WBC (Bld) [#/Vol] 9.7 10*3/uL 4.4-11.0 [facility] Blood erythrocytes count (nu mber/volume)Ordered By: Jimbo Zavaleta on 12-24-2022 RBC (Bld) [#/Vol] 4.57 10*6/uL 4.2-5.4 [facility] Blood hemoglobin measurement (mass/volume)Ordered By: Jimbo Zavaleta on 12-24-2022 Hemoglobin (Bld) [Mass/Vol] 15.0 g/dL 12.0-15.0 [facility] Blood lymphocytes/100 leukoc ytesOrdered By: Jimbo Zavaleta on 12-24-2022 Lymphocytes/100 WBC (Bld) 33.4 % 19-41 [facility] Blood monocytes/100 leukocyt esOrdered By: Jimbo Zavaleta on 12-24-2022 Monocytes/100 WBC (Bld) 10.2 % 0-10 [facility] Blood platelet mean volumeOr dered By: Jimbo Zavaleta on 12-24-2022 Platelet mean volume (Bld) [Entitic vol] 9.8 fL 6.2-12.0 [facility] Determination of erythrocyte mean corpuscular volume (MCV)Ordered By: Jimbo Zavaleta on 12-24-2022 MCV (RBC) [Entitic vol] 96.3 fL 81-99 [facility] Hematocrit Auto (Bld) [Volum e fraction]Ordered By: Jimbo Zavaleta on 12-24-2022 Hematocrit (Bld) [Volume fraction] 44.0 % 37-47 [facility] Laboratory - Chemistry and C hemistry - challengeOrdered By: Jimbo Zavaleta on 12-24-2022 CO2 [Moles/Vol] 18.0 mmol/L 21.0-32.0 [facility] Magnesium [Mass/Vol] 2.1 mg/dL 1.6-2.6 [facility] Comment on above: Moderate Hemolysis, Result may be falsely increased. Urea nitrogen/Creatinine [Mass ratio] 15.5 mg/mg 10-20 [facility] Laboratory - Hematology and Cell countsOrdered By: Jimbo Zavaleta on 12-24-2022 Erythrocyte distribution width (RBC) [Entitic vol] 42.8 fL 35.1-43.9 [facility] Erythrocyte distribution width (RBC) [Ratio] 12.1 % 11.6-14.6 [facility] Immature granulocytes/100 WBC (Bld) 0.200 % 0.0-0.9 [facility] Comment on above: IG% - Immature Granu locytes (promyelocytes, myelocytes and metamyelocytes) > 1% indicates that a LEFT SHIFT is Present. MCH (RBC) [Entitic mass] 32.8 pg 27.0-32.0 [facility] Nucleated RBC/100 WBC (Bld) [Ratio] 0 % 0-5 [facility] MCHC Auto (RBC) [Mass/Vol]Or dered By: Jimbo Zavaleta on 12-24-2022 MCHC (RBC) [Mass/Vol] 34.1 g/dL 32-36 [facility] No Panel InformationOrdered By: Jimbo Zavaleta on 12-24-2022 Estimated Creatinine Clearance Calc 75.55 ml/min [facility] Estimated GFR (MDRD) Amer 84 mL/min >60 [facility] Comment on above: GFR Calc Estimated GFR (MDRD) Non-Af Amer 69 mL/min >60 [facility] Comment on above: Non- GFR Calc Thyroid Stimulating Hormone (TSH) 3.00 uIU/mL 0.358-3.74 [facility] Platelets bldOrdered By: Davin Zavaleta on 12-24-2022 Platelets (Bld) [#/Vol] 306 10*3/uL 150-450 [facility] Serum or plasma calcium francois urement (mass/volume)Ordered By: Jimbo Zavaleta on 12-24-2022 Calcium [Mass/Vol] 9.4 mg/dL 8.5-10.1 [facility] Serum or plasma creatinine m easurement (mass/volume)Ordered By: Jimbo Zavaleta on 12-24-2022 Creatinine [Mass/Vol] 0.90 mg/dL 0.55-1.02 [facility] Comment on above: The validity of the calculated GFR & GFRAA in patients over 70 years has not been determined. Clinical correlation is essential. Serum or plasma urea nitroge n measurement (mass/volume)Ordered By: Jimbo Zavaleta on 12-24-2022 Urea nitrogen [Mass/Vol] 14 mg/dL 7-18 [facility] Thin prep Papanicolaou smear with manual screeningOrdered By: Jimbo Zavaleta on 12-24-2022 Thin prep Papanicolaou smear with manual screening 17 5-15 [facility] Absolute lymphocyte countOrd ered By: Dr. Bowles on 12-18-2022 Lymphocytes Auto (Unsp spec) [#/Vol] 2.04 10*3/uL 0.83-4.51 [facility] Basophil percentageOrdered B y: Dr. Bowles on 12-18-2022 Basophils/100 WBC (Bld) 1.0 % 0-1 [facility] Bilirubin [Mass/Vol] 0.40 mg/dL 0.20-1.00 [facility] Comment on above: For patients on eltr ombopag therapy, use of Dimension [place] TBIL is not recommended. Chloride [Moles/Vol] 109 mmol/L 98-107 [facility] Eosinophils/100 WBC (Bld) 6.3 % 0-5 [facility] Glucose [Mass/Vol] 104 mg/dL 74-106 [facility] Comment on above: Fasting Glucose resu lt from 100 to 125 mg/dL suggests IMPAIRED HOMEOSTASIS per A.D.A. criteria. Neutrophils (Bld) [#/Vol] 3.0 10*3/uL 2.0-7.7 [facility] Neutrophils/100 WBC (Bld) 48.7 % 47-70 [facility] Potassium [Moles/Vol] 3.3 mmol/L 3.5-5.1 [facility] Protein [Mass/Vol] 7.3 g/dL 6.4-8.2 [facility] Sodium [Moles/Vol] 140 mmol/L 136-145 [facility] WBC (Bld) [#/Vol] 6.1 10*3/uL 4.4-11.0 [facility] Blood erythrocytes count (nu mber/volume)Ordered By: Dr. Bowles on 12-18-2022 RBC (Bld) [#/Vol] 4.45 10*6/uL 4.2-5.4 [facility] Blood hemoglobin measurement (mass/volume)Ordered By: Dr. Bowles on 12-18-2022 Hemoglobin (Bld) [Mass/Vol] 14.5 g/dL 12.0-15.0 [facility] Blood lymphocytes/100 leukoc ytesOrdered By: Dr. Bowles on 12-18-2022 Lymphocytes/100 WBC (Bld) 33.6 % 19-41 [facility] Blood monocytes/100 leukocyt esOrdered By: Dr. Bowles on 12-18-2022 Monocytes/100 WBC (Bld) 10.2 % 0-10 [facility] Blood platelet mean volumeOr dered By: Dr. Bowles on 12-18-2022 Platelet mean volume (Bld) [Entitic vol] 9.6 fL 6.2-12.0 [facility] Clostridium difficile detect ion by polymerase chain reactionOrdered By: Dr. Bowles on 12-18-2022 C. difficile DNA BAM+probe Ql (Unsp spec) [facility] Determination of erythrocyte mean corpuscular volume (MCV)Ordered By: Dr. Bowles on 12-18-2022 MCV (RBC) [Entitic vol] 96.4 fL 81-99 [facility] Hematocrit Auto (Bld) [Volum e fraction]Ordered By: Dr. Bowles on 12-18-2022 Hematocrit (Bld) [Volume fraction] 42.9 % 37-47 [facility] Laboratory - Chemistry and C hemistry - challengeOrdered By: Dr. Bowles on 12-18-2022 ALP [Catalytic activity/Vol] 75 U/L 45-117 [facility] ALT [Catalytic activity/Vol] 33 U/L 13-56 [facility] CO2 [Moles/Vol] 19.0 mmol/L 21.0-32.0 [facility] Globulin (S) [Mass/Vol] 4.1 g/dL 2.2-4.2 [facility] Urea nitrogen/Creatinine [Mass ratio] 16.4 mg/mg 10-20 [facility] Laboratory - Hematology and Cell countsOrdered By: Dr. Bowles on 12-18-2022 Erythrocyte distribution width (RBC) [Entitic vol] 43.3 fL 35.1-43.9 [facility] Erythrocyte distribution width (RBC) [Ratio] 12.1 % 11.6-14.6 [facility] Immature granulocytes/100 WBC (Bld) 0.200 % 0.0-0.9 [facility] Comment on above: IG% - Immature Granu locytes (promyelocytes, myelocytes and metamyelocytes) > 1% indicates that a LEFT SHIFT is Present. MCH (RBC) [Entitic mass] 32.6 pg 27.0-32.0 [facility] Nucleated RBC/100 WBC (Bld) [Ratio] 0 % 0-5 [facility] MCHC Auto (RBC) [Mass/Vol]Or dered By: Dr. Bowles on 12-18-2022 MCHC (RBC) [Mass/Vol] 33.8 g/dL 32-36 [facility] No Panel InformationOrdered By: Dr. Bowles on 12-18-2022 Estimated Creatinine Clearance Calc 93.14 ml/min [facility] Estimated GFR (MDRD) Amer 107 mL/min >60 [facility] Comment on above: GFR Calc Estimated GFR (MDRD) Non-Af Amer 88 mL/min >60 [facility] Comment on above: Non- GFR Calc Platelets bldOrdered By: Dr. Bowles on 12-18-2022 Platelets (Bld) [#/Vol] 213 10*3/uL 150-450 [facility] Serum or plasma albumin francois urement (mass/volume)Ordered By: Dr. Bowles on 12-18-2022 Albumin [Mass/Vol] 3.2 g/dL 3.2-5.0 [facility] Serum or plasma albumin/glob ulin mass ratioOrdered By: Dr. Bowles on 12-18-2022 Albumin/Globulin [Mass ratio] 0.8 {ratio} 0.9-2.4 [facility] Serum or plasma calcium francois urement (mass/volume)Ordered By: Dr. Bowles on 12-18-2022 Calcium [Mass/Vol] 8.9 mg/dL 8.5-10.1 [facility] Serum or plasma creatinine m easurement (mass/volume)Ordered By: Dr. Bowles on 12-18-2022 Creatinine [Mass/Vol] 0.73 mg/dL 0.55-1.02 [facility] Comment on above: The validity of the calculated GFR & GFRAA in patients over 70 years has not been determined. Clinical correlation is essential. Serum or plasma urea nitroge n measurement (mass/volume)Ordered By: Dr. Bowles on 12-18-2022 Urea nitrogen [Mass/Vol] 12 mg/dL 7-18 [facility] Stool enteric pathogen panel by probe and target amplification methodOrdered By: Dr. Bowles on 12-18-2022 Gastrointestinal pathogens panel BAM+probe (Stl) [facility] Thin prep Papanicolaou smear with manual screeningOrdered By: Dr. Bowles on 12-18-2022 Thin prep Papanicolaou smear with manual screening 27 U/L 15-37 [facility] Thin prep Papanicolaou smear with manual screening 12 5-15 [facility] Culture, urineOrdered By: Dr Gina Guzman on 11-20-2022 Bacteria identified Cx Nom (U) Culture exhibits no growth. [facility] No Panel InformationOrdered By: Dr. Samuels on 11-11-2022 Thyroid Stimulating Hormone (TSH) 0.96 uIU/mL 0.358-3.74 [facility] Culture, urineOrdered By: Dr Gina Guzman on 11-10-2022 Bacteria identified Cx Nom (U) Klebsiella aerogenes [facility] Albumin Elph [Mass/Vol]on Albumin [Mass/Vol] 3.9 g/dL 2.9-4.4 [facility] Work Phone: Interpretation of serum or p lasma protein pattern by immunofixation (narrative resulton 06-25-2022 Protein Fractions Immunofixation Russel [Interp] See comment [facility] Work Phone: Comment on above: NOT OBSERVED No Panel Informationon 06-25 Addendum Document Comment . [facility] Work Phone: Comment on above: Protein electrophore sis scan will follow via computer,mail, or wood furniture assembler delivery. Serum [id number] measu rement by electrophoresison 06-25-2022 Alpha 1 globulin Elph [Mass/Vol] 0.3 g/dL 0.0-0.4 [facility] Work Phone: Alpha 1 globulin Elph [Mass/Vol] 0.8 g/dL 0.4-1.0 [facility] Work Phone: Serum globulin measurement ( mass/volume)on 06-25-2022 Globulin (S) [Mass/Vol] 3.9 g/dL 2.2-3.9 [facility] Work Phone: Serum or plasma IgA measurem ent (mass/volume)on 06-25-2022 IgA [Mass/Vol] 314 mg/dL 87-352 [facility] Work Phone: Serum or plasma IgG measurem ent (mass/volume)on 06-25-2022 IgG [Mass/Vol] 1562 mg/dL 586-1602 [facility] Work Phone: Serum or plasma IgM measurem ent (mass/volume)on 06-25-2022 IgM [Mass/Vol] 196 mg/dL 26-217 [facility] Work Phone: Serum or plasma beta globuli n measurement by electrophoresis (mass/volume)on 06-25-2022 Beta globulin Elph [Mass/Vol] 1.2 g/dL 0.7-1.3 [facility] Work Phone: Serum or plasma gamma globul in measurement by electrophoresis (mass/volume)on 06-25-2022 Gamma globulin Elph [Mass/Vol] 1.7 g/dL 0.4-1.8 [facility] Work Phone: Serum or plasma gastrin francois urement (mass/volume)on 06-25-2022 Gastrin [Mass/Vol] 194 pg/mL 0-115 [facility] Work Phone: Comment on above: Siemens Immulite 200 0 Immunochemiluminometric assay (ICMA)Values obtained with different assay methods or kits cannotbe used interchangeably. Results cannot be interpreted asabsolute evidence of the presence or absence of malignantdisease.Performed at: [facility] [employer] [id number] Director: Fred Agustin PhD, Phone: [phone] at: [address] [id number] Director: Haleigh Angel MD, Phone: [phone] Serum or plasma immunoelectr ophoresis interpretation (nominal result)on 06-25-2022 Interpretation IEP [Interp] Comment . [facility] Work Phone: Comment on above: No monoclonality det ected. Thin prep Papanicolaou smear with manual screeningon 06-25-2022 Thin prep Papanicolaou smear with manual screening 1.1 0.7-1.7 [facility] Work Phone: Total protein bloodon 2021 Protein [Mass/Vol] 7.8 g/dL 6.0-8.5 [facility] Work Phone: Absolute lymphocyte counton 05-30-2022 Lymphocytes Auto (Unsp spec) [#/Vol] 1.59 10*3/uL 0.83-4.51 [facility] Work Phone: Basophil percentageon 2021 Basophils/100 WBC (Bld) 1.0 % 0-1 [facility] Work Phone: Bilirubin [Mass/Vol] 0.50 mg/dL 0.20-1.00 [facility] Work Phone: Comment on above: For patients on eltr ombopag therapy, use of [place] TBIL is not recommended. Eosinophils/100 WBC (Bld) 4.1 % 0-5 [facility] Work Phone: Neutrophils (Bld) [#/Vol] 2.8 10*3/uL 2.0-7.7 [facility] Work Phone: Neutrophils/100 WBC (Bld) 53.6 % 47-70 [facility] Work Phone: Protein [Mass/Vol] 8.0 g/dL 6.4-8.2 [facility] Work Phone: WBC (Bld) [#/Vol] 5.2 10*3/uL 4.4-11.0 [facility] Work Phone: Blood erythrocytes count (nu mber/volume)on 05-30-2022 RBC (Bld) [#/Vol] 4.12 10*6/uL 4.2-5.4 [facility] Work Phone: Blood hemoglobin measurement (mass/volume)on 05-30-2022 Hemoglobin (Bld) [Mass/Vol] 14.7 g/dL 12.0-15.0 [facility] Work Phone: Blood lymphocytes/100 leukoc yteson 05-30-2022 Lymphocytes/100 WBC (Bld) 30.8 % 19-41 [facility] Work Phone: Blood monocytes/100 leukocyt eson 05-30-2022 Monocytes/100 WBC (Bld) 10.3 % 0-10 [facility] Work Phone: Blood platelet mean volumeon 05-30-2022 Platelet mean volume (Bld) [Entitic vol] 9.7 fL 6.2-12.0 [facility] Work Phone: Determination of erythrocyte mean corpuscular volume (MCV)on 05-30-2022 MCV (RBC) [Entitic vol] 99.0 fL 81-99 [facility] Work Phone: Direct bilirubinon Bilirubin.direct [Mass/Vol] 0.15 mg/dL 0.00-0.30 [facility] Work Phone: Hematocrit Auto (Bld) [Volum e fraction]on 05-30-2022 Hematocrit (Bld) [Volume fraction] 40.8 % 37-47 [facility] Work Phone: Laboratory - Chemistry and C hemistry - challengeon 05-30-2022 ALP [Catalytic activity/Vol] 90 U/L 45-117 [facility] Work Phone: ALT [Catalytic activity/Vol] 33 U/L 13-56 [facility] Work Phone: Globulin (S) [Mass/Vol] 4.5 g/dL 2.2-4.2 [facility] Work Phone: Laboratory - Hematology and Cell countson 05-30-2022 Erythrocyte distribution width (RBC) [Entitic vol] 44.4 fL 35.1-43.9 [facility] Work Phone: Erythrocyte distribution width (RBC) [Ratio] 12.5 % 11.6-14.6 [facility] Work Phone: Immature granulocytes/100 WBC (Bld) 0.200 % 0.0-0.9 [facility] Work Phone: Comment on above: IG% - Immature Granu locytes (promyelocytes, myelocytes and metamyelocytes) > 1% indicates that a LEFT SHIFT is Present. MCH (RBC) [Entitic mass] 35.7 pg 27.0-32.0 [facility] Work Phone: Nucleated RBC/100 WBC (Bld) [Ratio] 0 % 0-5 [facility] Work Phone: MCHC Auto (RBC) [Mass/Vol]on 05-30-2022 MCHC (RBC) [Mass/Vol] 36.0 g/dL 32-36 [facility] Work Phone: No Panel Informationon 05-30 Estimated GFR (MDRD) Amer 76 mL/min >60 [facility] Work Phone: Comment on above: GFR Calc Estimated GFR (MDRD) Non-Af Amer 63 mL/min >60 [facility] Work Phone: Comment on above: Non- GFR Calc Platelets bldon 05-30-2022 Platelets (Bld) [#/Vol] 245 10*3/uL 150-450 [facility] Work Phone: Serum or plasma albumin francois urement (mass/volume)on 05-30-2022 Albumin [Mass/Vol] 3.5 g/dL 3.2-5.0 [facility] Work Phone: Serum or plasma creatinine m easurement (mass/volume)on 05-30-2022 Creatinine [Mass/Vol] 0.99 mg/dL 0.55-1.02 [facility] Work Phone: Comment on above: The validity of the calculated GFR & GFRAA in patients over 70 years has not been determined. Clinical correlation is essential. Thin prep Papanicolaou smear with manual screeningon 05-30-2022 Thin prep Papanicolaou smear with manual screening 22 U/L 15-37 [facility] Work Phone: Basophil percentageon 2021 Creatinine [Mass/Vol] 1.0 mg/dL 0.55-1.02 [facility] Work Phone: Laboratory - Chemistry and C hemistry - challengeon 04-19-2022 GFR/1.73 sq M.predicted among non-blacks MDRD (S/P/Bld) [Vol rate/Area] 60.0000 mL/min/{1.73_m2} >60 [facility] Work Phone: No Panel Informationon 03-28 Stool Calprotectin <16 ug/g 0-120 [facility] Work Phone: Comment on above: Concentration Interp retation Follow-Up<16 - 50 ug/g Normal None>50 -120 ug/g Borderline Re-evaluate in 4-6 weeks >120 ug/g Abnormal Repeat as clinically indicatedPerformed at: [facility] [id number] Director: Haleigh Angel MD, Phone: [phone] Atypical perinuclear antineu trophil cytoplasmic antibodies measurementon 03-27-2022 Neutrophil cytoplasmic Ab.perinuclear.atypica l IF (S) [Titer] <1:20 titer Neg:<1:20 [facility] Work Phone: Comment on above: The atypical pANCA p attern has been observed in asignificant percentage of patients with ulcerative colitis,primary sclerosing cholangitis and autoimmune hepatitis.Performed at: [facility] [address] [id number] Director: Fred Agustin PhD, Phone: [phone] at: [employer] [address] [id number] Director: Haleigh Angel MD, Phone: [phone] Erythrocyte sedimentation ra paul 03-27-2022 ESR (Bld) [Velocity] 13 mm/h 0-30 [facility] Work Phone: No Panel Informationon 03-27 Immunoglobulin E 331 IU/mL 6-495 [facility] Work Phone: Miscellaneous Test See comment [facility] Work Phone: Comment on above: TEST RESULT LIMITSIB D Expanded PanelgASCA 53 High units 0-50 Negative <45 Equivocal 45 - 50 Positive >50ACCA 29 units 0-90 Negative <80 Equivocal 80 - 90 Positive >90ALCA 47 units 0-60 Negative <55 Equivocal 55 - 60 Positive >60AMCA 46 units 0-100 Negative < 90 Equivocal 90 - 100 Positive >100 This test was developed and its performance characteristics determined [facility]. It has not been cleared or approved by the Food and Drug Administration. The FDA has determined that such clearance or approval is not necessary.Atypical pANCA Negative NegativeComments AbnormalSuggestive of Crohn's Disease. Pattern is not conclusive for disease behavior risk stratification. TESTING PERFORMED AT [facility]. ORIGINAL REPORT ON FILE IN LAB CONTAINS ADDITIONAL TEST SITE INFORMATION. Serum classic neutrophil cyt oplasmic antibody assay (units/volume)on 03-27-2022 Neutrophil cytoplasmic Ab.classic Qn (S) <1:20 titer Neg:<1:20 [facility] Work Phone: Serum or plasma C reactive p rotein measurement (mass/volume)on 03-27-2022 CRP [Mass/Vol] 5.55 mg/L 0.0-3.0 [facility] Work Phone: Comment on above: C-Reactive Protein ( CRP) provides useful information for thediagnosis, therapy and monitoring of inflammatory processesand associated diseases. For the evaluation of Relative Riskfor Cardiovascular Disease, a High Sensitivity CRP (HSCRP)should be ordered. Serum or plasma IgA measurem ent (mass/volume)on 03-27-2022 IgA [Mass/Vol] 313 mg/dL 87-352 [facility] Work Phone: Serum or plasma IgG measurem ent (mass/volume)on 03-27-2022 IgG [Mass/Vol] 1683 mg/dL 586-1602 [facility] Work Phone: Serum or plasma IgM measurem ent (mass/volume)on 03-27-2022 IgM [Mass/Vol] 187 mg/dL 26-217 [facility] Work Phone: Serum perinuclear neutrophil cytoplasmic antibody titer by immunofluorescenceon 03-27-2022 Neutrophil cytoplasmic Ab.perinuclear IF (S) [Titer] <1:20 titer Neg:<1:20 [facility] Work Phone: Comment on above: The presence of posi tive fluorescence exhibiting P-ANCA orC-ANCA patterns alone is not specific for the diagnosis ofWegener's Granulomatosis (WG) or microscopic polyangiitis.Decisions about treatment should not be based solely onANCA IFA results. The [employer] ANCA Group Consensusrecommends follow up testing of positive sera with both KS-3 and MPO-ANCA enzyme immunoassays. As many as 5% serumsamples are positive only by EIA. Ref. AM J Clin [id number];111:507-513. Thin prep Papanicolaou smear with manual screeningon 03-27-2022 Thin prep Papanicolaou smear with manual screening 204 U/L 84-246 [facility] Work Phone: Giardia lamblia ag stool EIA on 01-16-2022 G. lamblia Ag IA Ql (Stl) See comment [facility] Work Phone: Comment on above: TEST RESULT LIMITSGi ardia lamblia Ag, EIA Negative Negative __ TESTING PERFORMED AT [facility]. ORIGINAL REPORT ON FILE IN LAB CONTAINS ADDITIONAL TEST SITE INFORMATION. No Panel Informationon 01-16 Stool Calprotectin 27 ug/g 0-120 [facility] Work Phone: Comment on above: Concentration Interp retation Follow-Up<16 - 50 ug/g Normal None>50 -120 ug/g Borderline Re-evaluate in 4-6 weeks >120 ug/g Abnormal Repeat as clinically indicatedPerformed at: [address] [id number] Director: Haleigh Angel MD, Phone: [phone] Stool Pancreatic Elastase 367 >200 [facility] Work Phone: Comment on above: Result Units: ug Kati st./g Severe Pancreatic Insufficiency: <100 Moderate Pancreatic Insufficiency: 100 - 200 Normal: >200 Serum or plasma gastrin francois urement (mass/volume)on 01-16-2022 Gastrin [Mass/Vol] 57 pg/mL 0-115 [facility] Work Phone: Comment on above: Siemens Immulite 200 0 Immunochemiluminometric assay (ICMA)Values obtained with different assay methods or kits cannotbe used interchangeably. Results cannot be interpreted asabsolute evidence of the presence or absence of malignantdisease. Absolute lymphocyte counton 01-14-2022 Lymphocytes Auto (Unsp spec) [#/Vol] 1.68 10*3/uL 0.83-4.51 [facility] Work Phone: Albumin Elph [Mass/Vol]on Albumin [Mass/Vol] Not Reportable [facility] Work Phone: Basophil percentageon 2021 Basophil percentage < 0.2 AI 0.0-0.9 [facility] Work Phone: Basophils/100 WBC (Bld) 1.7 % 0-1 [facility] Work Phone: Bilirubin [Mass/Vol] 0.60 mg/dL 0.20-1.00 [facility] Work Phone: Comment on above: For patients on eltr ombopag therapy, use of [employer] [place] TBIL is not recommended. Chloride [Moles/Vol] 110 mmol/L 98-107 [facility] Work Phone: Eosinophils/100 WBC (Bld) 7.7 % 0-5 [facility] Work Phone: Glucose [Mass/Vol] 94 mg/dL 74-106 [facility] Work Phone: Neutrophils (Bld) [#/Vol] 2.2 10*3/uL 2.0-7.7 [facility] Work Phone: Neutrophils/100 WBC (Bld) 45.5 % 47-70 [facility] Work Phone: Potassium [Moles/Vol] 3.9 mmol/L 3.5-5.1 [facility] Work Phone: Protein [Mass/Vol] 8.1 g/dL 6.4-8.2 [facility] Work Phone: Sodium [Moles/Vol] 141 mmol/L 136-145 [facility] Work Phone: WBC (Bld) [#/Vol] 4.8 10*3/uL 4.4-11.0 [facility] Work Phone: Blood erythrocytes count (nu mber/volume)on 01-14-2022 RBC (Bld) [#/Vol] 4.48 10*6/uL 4.2-5.4 [facility] Work Phone: Blood hemoglobin measurement (mass/volume)on 01-14-2022 Hemoglobin (Bld) [Mass/Vol] 15.3 g/dL 12.0-15.0 [facility] Work Phone: Blood lymphocytes/100 leukoc yteson 01-14-2022 Lymphocytes/100 WBC (Bld) 34.8 % 19-41 [facility] Work Phone: Blood monocytes/100 leukocyt eson 01-14-2022 Monocytes/100 WBC (Bld) 9.9 % 0-10 [facility] Work Phone: Blood platelet mean volumeon 01-14-2022 Platelet mean volume (Bld) [Entitic vol] 9.3 fL 6.2-12.0 [facility] Work Phone: Determination of erythrocyte mean corpuscular volume (MCV)on 01-14-2022 MCV (RBC) [Entitic vol] 96.9 fL 81-99 [facility] Work Phone: Erythrocyte sedimentation ra paul 01-14-2022 ESR (Bld) [Velocity] 12 mm/h 0-30 [facility] Work Phone: Hematocrit Auto (Bld) [Volum e fraction]on 01-14-2022 Hematocrit (Bld) [Volume fraction] 43.4 % 37-47 [facility] Work Phone: Interpretation of serum or p lasma protein pattern by immunofixation (narrative resulton 01-14-2022 Protein Fractions Immunofixation Russel [Interp] Not Reportable [facility] Work Phone: Laboratory - Chemistry and C hemistry - challengeon 01-14-2022 ALP [Catalytic activity/Vol] 92 U/L 45-117 [facility] Work Phone: ALT [Catalytic activity/Vol] 26 U/L 13-56 [facility] Work Phone: CK [Catalytic activity/Vol] 123 U/L 26-192 [facility] Work Phone: CO2 [Moles/Vol] 24.0 mmol/L 21.0-32.0 [facility] Work Phone: Globulin (S) [Mass/Vol] 4.7 g/dL 2.2-4.2 [facility] Work Phone: Urea nitrogen/Creatinine [Mass ratio] 14.9 mg/mg - [facility] Work Phone: Laboratory - Hematology and Cell countson 01-14-2022 Erythrocyte distribution width (RBC) [Entitic vol] 44.8 fL 35.1-43.9 [facility] Work Phone: Erythrocyte distribution width (RBC) [Ratio] 12.7 % 11.6-14.6 [facility] Work Phone: Immature granulocytes/100 WBC (Bld) 0.400 % 0.0-0.9 [facility] Work Phone: Comment on above: IG% - Immature Granu locytes (promyelocytes, myelocytes and metamyelocytes) > 1% indicates that a LEFT SHIFT is Present. MCH (RBC) [Entitic mass] 34.2 pg 27.0-32.0 [facility] Work Phone: Nucleated RBC/100 WBC (Bld) [Ratio] 0 % 0-5 [facility] Work Phone: MCHC Auto (RBC) [Mass/Vol]on 01-14-2022 MCHC (RBC) [Mass/Vol] 35.3 g/dL 32-36 [facility] Work Phone: No Panel Informationon 01-14 Centromere B Antibody <0.2 AI 0.0-0.9 [facility] Work Phone: Endomysial IgA Antibody Negative Negative [facility] Work Phone: Estimated GFR (MDRD) Amer 88 mL/min >60 [facility] Work Phone: Comment on above: GFR Calc Estimated GFR (MDRD) Non-Af Amer 72 mL/min >60 [facility] Work Phone: Comment on above: Non- GFR Calc Immunoglobulin E See comment [facility] Work Phone: Comment on above: TEST RESULT LIMITSIm munoglobulin E, Total 276 IU/mL 6 - 495 TESTING PERFORMED AT [facility]. ORIGINAL REPORT ON FILE IN LAB CONTAINS ADDITIONAL TEST SITE INFORMATION. BAG HANGER Antibody <0.2 AI 0.0-0.9 [facility] Work Phone: Platelets bldon 01-14-2022 Platelets (Bld) [#/Vol] 280 10*3/uL 150-450 [facility] Work Phone: Serum DNA double strand anti body assay (units/volume)on 01-14-2022 DNA double strand Ab Qn (S) 1 [IU]/mL 0-9 [facility] Work Phone: Comment on above: Negative <5 Equivoca l 5 - 9 Positive >9 Serum IgA measurement (units /volume)on 01-14-2022 IgA Qn (S) 318 mg/dL 87-352 [facility] Work Phone: Comment on above: Performed at: [address] [id number] Director: Fred Agustin PhD, Phone: [phone] Serum Reyna-1 antibody assay (u nits/volume)on 01-14-2022 Reyna-1 extractable nuclear Ab Qn (S) <0.2 AI 0.0-0.9 [facility] Work Phone: Serum Scl-70 extractable nuc lear antibody assay (units/volume)on 01-14-2022 SCL-70 extractable nuclear Ab Qn (S) <0.2 AI 0.0-0.9 [facility] Work Phone: Serum Baig extractable nucl ear antibody detectionon 01-14-2022 Baig extractable nuclear Ab Ql (S) <0.2 AI 0.0-0.9 [facility] Work Phone: Serum [id number] measu rement by electrophoresison 01-14-2022 Alpha 1 globulin Elph [Mass/Vol] Not Reportable [facility] Work Phone: Serum classic neutrophil cyt oplasmic antibody assay (units/volume)on 01-14-2022 Neutrophil cytoplasmic Ab.classic Qn (S) See comment [facility] Work Phone: Comment on above: TEST RESULT LIMITSAn tineutrophil Cytoplasmic AbCytoplasmic (C-ANCA) <1:20 titer Neg:<1:20Perinuclear (P-ANCA) 1:80 High titer Neg:<1:20The presence of positive fluorescence exhibiting P-ANCA or C-ANCA patterns alone is not specific for the diagnosis of Corona's Granulomatosis (WG) or microscopic polyangiitis. Decisions about treatment should not be based solely on ANCA IFA results. The [employer] AN[employer] Consensus recommends follow up testing of positive sera with both KS-3 and MPO-ANCA enzyme immunoassays. As many as 5% serum samples are positive only by EIA.Ref. AM J Clin Pathol 1999;111:507-513.Atypical pANCA <1:20 titer Neg:<1:20The atypical pANCA pattern has been observed in a significant percentage of patients with ulcerative colitis, primary sclerosing cholangitis and autoimmune hepatitis. ____ TESTING PERFORMED AT [facility]. ORIGINAL REPORT ON FILE IN LAB CONTAINS ADDITIONAL TEST SITE INFORMATION. Serum or plasma C reactive p rotein measurement (mass/volume)on 01-14-2022 CRP [Mass/Vol] 3.53 mg/L 0.0-3.0 [facility] Work Phone: Comment on above: C-Reactive Protein ( CRP) provides useful information for thediagnosis, therapy and monitoring of inflammatory processesand associated diseases. For the evaluation of Relative Riskfor Cardiovascular Disease, a High Sensitivity CRP (HSCRP)should be ordered. Serum or plasma IgA measurem ent (mass/volume)on 01-14-2022 IgA [Mass/Vol] Not Reportable [facility] Work Phone: Serum or plasma IgG measurem ent (mass/volume)on 01-14-2022 IgG [Mass/Vol] Not Reportable [facility] Work Phone: Serum or plasma IgM measurem ent (mass/volume)on 01-14-2022 IgM [Mass/Vol] Not Reportable [facility] Work Phone: Serum or plasma albumin francois urement (mass/volume)on 01-14-2022 Albumin [Mass/Vol] 3.4 g/dL 3.2-5.0 [facility] Work Phone: Serum or plasma albumin/glob ulin mass ratioon 01-14-2022 Albumin/Globulin [Mass ratio] 0.7 {ratio} 0.9-2.4 [facility] Work Phone: Serum or plasma beta globuli n measurement by electrophoresis (mass/volume)on 01-14-2022 Beta globulin Elph [Mass/Vol] Not Reportable [facility] Work Phone: Serum or plasma calcium francois urement (mass/volume)on 01-14-2022 Calcium [Mass/Vol] 9.1 mg/dL 8.5-10.1 [facility] Work Phone: Serum or plasma creatinine m easurement (mass/volume)on 01-14-2022 Creatinine [Mass/Vol] 0.87 mg/dL 0.55-1.02 [facility] Work Phone: Comment on above: The validity of the calculated GFR & GFRAA in patients over 70 years has not been determined. Clinical correlation is essential. Serum or plasma ferritin rosette surement (mass/volume)on 01-14-2022 Ferritin [Mass/Vol] 66 ng/mL 8-252 [facility] Work Phone: Serum or plasma gamma globul in measurement by electrophoresis (mass/volume)on 01-14-2022 Gamma globulin Elph [Mass/Vol] Not Reportable [facility] Work Phone: Serum or plasma urea nitroge n measurement (mass/volume)on 01-14-2022 Urea nitrogen [Mass/Vol] 13 mg/dL 7-18 [facility] Work Phone: Serum perinuclear neutrophil cytoplasmic antibody titer by immunofluorescenceon 01-14-2022 Neutrophil cytoplasmic Ab.perinuclear IF (S) [Titer] Not Reportable [facility] Work Phone: Serum tissue transglutaminas e IgA antibody assay (units/volume)on 01-14-2022 tTG IgA Qn (S) <2 U/mL 0-3 [facility] Work Phone: Comment on above: Negative 0 - 3 Weak Positive 4 - 10 Positive >10 Tissue Transglutaminase (tTG) has been identified as the endomysial antigen. Studies have demonstr- ated that endomysial IgA antibodies have over 99% specificity for gluten sensitive enteropathy. Thin prep Papanicolaou smear with manual screeningon 01-14-2022 Thin prep Papanicolaou smear with manual screening 19 U/L 15-37 [facility] Work Phone: Thin prep Papanicolaou smear with manual screening 7 5-15 [facility] Work Phone: Thin prep Papanicolaou smear with manual screening 189 U/L 84-246 [facility] Work Phone: Thin prep Papanicolaou smear with manual screening Not Reportable [facility] Work Phone: Total protein bloodon 2021 Protein [Mass/Vol] See comment [facility] Work Phone: Comment on above: TEST RESULT LIMITSIF E and PE, SerumImmunoglobulin G, Qn, Serum 1866 High mg/dL [id number] A, Qn, Serum 319 mg/dL 87-352Immunoglobulin M, Qn, Serum 196 mg/dL 26-217Protein, Total 7.9 g/dL 6.0-8.5Albumin 3.7 g/dL 2.9-4.9Ncdwz-6-Bxmcaeng 0.3 g/dL 0.0-0.1Qlsma-2-Wjwnsdtr 0.8 g/dL 0.4-1.0Beta Globulin 1.2 g/dL 0.7-1.3Gamma Globulin 1.9 High g/dL 0.4-1.8M-Pasha Not Observed g/dL Not ObservedGlobulin, Total 4.2 High g/dL 2.2-3.9A/G Ratio 0.9 0.7-1.7Immunofixation Result,Serum No monoclonality detected.Please note: Protein electrophoresis scan will follow via computer, mail, or wood furniture assembler delivery. ___ [facility] ORIGINAL REPORT ON FILE IN LAB CONTAINS ADDITIONAL TEST SITE INFORMATION. HEPATITIS PANEL ([id number])Order ed By: Engine Specialist on 03-16-2021 HAV IgM IA Ql Negative Normal Comprehensi ve Internal [facility]; [facility] Work Phone: Comment on above: PATIENT NOT FASTINGP ERFORMED BY: [id number] [facility] [id number] HBV core IgM IA Ql Negative Normal Compre hensive Internal Medicine; [facility] Work Phone: Comment on above: PATIENT NOT FASTINGP ERFORMED BY: [employer]6370 [facility] [id number] HBV surface Ag IA Ql Negative Normal Comp rehensive Internal Medicine; [facility] Work Phone: Comment on above: PATIENT NOT FASTINGP ERFORMED BY: [facility] Lanyif0529 [facility] [id number] HCV Ab Signal/Cutoff IA [Rel units/Vol] {ratio} Normal 0.0-0.9 [facility]; [facility] Work Phone: Comment on above: Negative: < 0.8 Inde terminate: 0.8 - 0.9 Positive: > 0.9 . The CDC recommends that a positive HCV antibody result be followed up with a HCV Nucleic Acid Amplification test (000908). PATIENT NOT FASTINGP ERFORMED BY: [employer] Ypnbwj7676 [facility]ingoSaint [facility] [id number] CBC & PLATELETS (AUTO) ([id number] [id number])Ordered By: Engine Specialist on 03-13-2021 Erythrocyte distribution width (RBC) [Ratio] 12.4 % Normal 11.7-15.4 [facility]; [facility] Work Phone: Comment on above: PATIENT NOT FASTINGP ERFORMED BY: [employer] Deajiy7640 [facility] [id number] Hematocrit (Bld) [Volume fraction] 44.1 % Normal 34.0-46.6 [facility]; [facility] Work Phone: Comment on above: PATIENT NOT FASTINGP ERFORMED BY: [employer] Tnqxra7542 [facility] [id number] Hemoglobin (Bld) [Mass/Vol] 16.0 g/dL Abnormal 11.1-15.9 [facility]; [facility] Work Phone: Comment on above: PATIENT NOT FASTINGP ERFORMED BY: [facility] Kijeog4[address] [facility] [id number] MCH (RBC) [Entitic mass] 35.2 pg Abnormal 26.6-33.0 [facility]; [facility] Work Phone: Comment on above: PATIENT NOT FASTINGP ERFORMED BY: [facility] Pjvjuf76[address] [facility] [id number] MCHC (RBC) [Mass/Vol] 36.3 g/dL Abnormal 31.5-35.7 [facility] Internal [facility]; [facility] Work Phone: Comment on above: PATIENT NOT FASTINGP ERFORMED BY: HERI [place]6370 [address] L ColungaCentral Harnett Hospitalin [place] [id number] MCV (RBC) [Entitic vol] 97 fL Normal 79-97 [facility]; [facility] Work Phone: Comment on above: PATIENT NOT FASTINGP ERFORMED BY: HERI [place]banks[address] [facility] [id number] Platelets (Bld) [#/Vol] 260 10*3/uL Normal 150-450 [facility] Internal Medicine; [facility] Work Phone: Comment on above: PATIENT NOT FASTINGP ERFORMED BY: HERI Fairbanks6370 [facility]ingoSaint [facility] [id number] RBC (Bld) [#/Vol] 4.54 10*6/uL Normal 3.77-5.28 [facility]; [facility] Work Phone: Comment on above: PATIENT NOT FASTINGP ERFORMED BY: HERI [place]banks6370 [facility]ingoSaint [facility] [id number] WBC (Bld) [#/Vol] 5.1 10*3/uL Normal 3.4-10.8 [facility]; [facility] Work Phone: Comment on above: PATIENT NOT FASTINGP ERFORMED BY: HERI Fairbanks6370 [facility] [id number] GLUCOSE ([id number])Ordered By: S ystem Preflight Inspector on 03-13-2021 Glucose [Mass/Vol] 95 mg/dL Normal 65-99 [facility]; [facility] Work Phone: Comment on above: PATIENT NOT FASTINGP ERFORMED BY: HERI Fairbanks6370 [facility] [id number] HEPATIC FUNCTION PANEL (8007 6)Ordered By: Engine Specialist on 03-13-2021 Albumin [Mass/Vol] 4.1 g/dL Normal 3.8-4.9 [facility]; [facility] Work Phone: Comment on above: PATIENT NOT FASTINGP ERFORMED BY: CB [facility] Naqcim4275 [address] RoadDublin [place] [id number] ALP [Catalytic activity/Vol] 94 U/L Normal 48-121 [facility]; [facility] Work Phone: Comment on above: PATIENT NOT FASTINGP ERFORMED BY: CB [facility] Pjhive1973 [address] RoadDublin [place] [id number] ALT [Catalytic activity/Vol] 44 U/L Abnormal 0-32 [facility]; [facility] Work Phone: Comment on above: PATIENT NOT FASTINGP ERFORMED BY: CB [facility] Elxfsl1917 [address] RoadDublin [place] [id number] AST [Catalytic activity/Vol] 47 U/L Abnormal 0-40 [facility]; [facility] Work Phone: Comment on above: PATIENT NOT FASTINGP ERFORMED BY: CB [facility] Cfnvmc2487 [address] RoadDublin [place] [id number] Bilirubin [Mass/Vol] 0.6 mg/dL Normal 0.0-1.2 [facility] Internal [facility]; [facility] Work Phone: Comment on above: PATIENT NOT FASTINGP ERFORMED BY: CB [facility] Sggonq7805 [address] RoadDublin [place] [id number] Bilirubin.direct [Mass/Vol] 0.18 mg/dL Normal 0.00-0.40 [facility]; [facility] Work Phone: Comment on above: PATIENT NOT FASTINGP ERFORMED BY: CB [facility] Wgdspy8239 [address] RoadDublin [place] [id number] Protein [Mass/Vol] 7.8 g/dL Normal 6.0-8.5 [facility]; [facility] Work Phone: Comment on above: PATIENT NOT FASTINGP ERFORMED BY: CB [facility] Dgdprh6370 [address] RoadDublin [place] [id number] LIPID PANEL ([id number])Ordered B y: Engine Specialist on 03-13-2021 Cholesterol [Mass/Vol] 192 mg/dL Normal 100-199 [facility]; [facility] Work Phone: Comment on above: PATIENT NOT FASTINGP ERFORMED BY: HERI [facility] Kxoggl3625 [address] RoadDublin [place] [id number] Cholesterol in HDL [Mass/Vol] 69 mg/dL Normal [facility]; [facility] Work Phone: Comment on above: PATIENT NOT FASTINGP ERFORMED BY: CB [facility] Jkopqx2831 [address] RoadDublin [place] [id number] Triglyceride [Mass/Vol] 92 mg/dL Normal 0-149 [facility]; [facility] Work Phone: Comment on above: PATIENT NOT FASTINGP ERFORMED BY: HERI [facility] Ibkvbe8035 [address] RoadDublin [place] [id number] LIPID PANEL (06663) 16 mg/dL Normal 5-40 [facility]; [facility] Work Phone: Comment on above: PATIENT NOT FASTINGP ERFORMED BY: CB [facility] Vaftet6066 [address] RoadDublin [place] [id number] LIPID PANEL (09900) 107 mg/dL Abnormal 0-99 [facility]; [facility] Work Phone: Comment on above: PATIENT NOT FASTINGP ERFORMED BY: CB [facility] Mhmspp4973 [address] RoadDublin [place] [id number] LIPID PANEL (98637) 1.6 {ratio} Normal 0.0-3.2 [facility]; [facility] Work Phone: Comment on above: LDL/HDL Ratio Men Wo men 1/2 Avg.Risk 1.0 1.5 Avg.Risk 3.6 3.2 2X Avg.Risk 6.2 5.0 3X Avg.Risk 8.0 6.1 PATIENT NOT FASTINGP ERFORMED BY: CB [facility] Lakvvf3571 [address] RoadDublin [place] [id number] TSH (THYROID STIMULATING HOR SHELLY) ([id number])Ordered By: Engine Specialist on 03-13-2021 TSH Qn 1.390 {uIU/mL} Normal 0.450-4.500 Shubham ruano [facility]; [facility] Work Phone: Comment on above: PATIENT NOT FASTINGP ERFORMED BY: HERI [employer] [facility] [id number] CALCIFEDIOL (21621)Ordered B y: Engine Specialist on 04-04-2020 25-Hydroxyvitamin D2+25-Hydroxyvitamin D3 [Mass/Vol] 32.1 ng/mL Normal 30.0-100.0 [facility] Work Phone: Comment on above: Vitamin D deficiency has been defined by the [place] ofMedicine and an Endocrine Society practice guideline as alevel of serum 25-OH vitamin D less than 20 ng/mL (1,2).The Endocrine Society went on to further define vitamin Dinsufficiency as a level between 21 and 29 ng/mL (2).1. IOM ([place] of Medicine). 2010. Dietary reference intakes for calcium and D. [place]: The National Academies Press.2. Claude MF, Yelitza GARCES, Donald GRAVES, et al. Evaluation, treatment, and prevention of vitamin D deficiency: an Endocrine Society clinical practice guideline. JCEM. 2010; 96(7):1911-30. PATIENT NOT FASTINGP ERFORMED BY: HERI [employer]6370 [facility]ingoSaint [facility] [id number] CBC & PLATELETS (AUTO) (8502 7)Ordered By: Engine Specialist on 03-01-2020 Erythrocyte distribution width (RBC) [Ratio] 12.4 % Normal 11.7-15.4 [facility] Work Phone: Comment on above: Mar 01 2020; PATIENT WAS FASTINGPERFORMED BY: HERI [employer]6370 OpenWherein [place] [id number] Hematocrit (Bld) [Volume fraction] 41.2 % Normal 34.0-46.6 [facility] Work Phone: Comment on above: Mar 01 2020; PATIENT WAS FASTINGPERFORMED BY: [employer]6370 [facility] [id number] Hemoglobin (Bld) [Mass/Vol] 15.5 g/dL Normal 11.1-15.9 [facility] Work Phone: Comment on above: Mar 01 2020; PATIENT WAS FASTINGPERFORMED BY: CB [facility] Hurqdv9577 [address] RoadDublin [place] [id number] MCH (RBC) [Entitic mass] 36.5 pg Abnormal 26.6-33.0 [facility] Work Phone: Comment on above: Mar 01 2020; PATIENT WAS FASTINGPERFORMED BY: CB [facility] Trkqgr5229 [address] RoadDublin [place] [id number] MCHC (RBC) [Mass/Vol] 37.6 g/dL Abnormal 31.5-35.7 [facility] Work Phone: Comment on above: Mar 01 2020; PATIENT WAS FASTINGPERFORMED BY: CB [facility] Ekiwnv7455 [address] RoadDublin [place] [id number] MCV (RBC) [Entitic vol] 97 fL Normal 79-97 [facility] Work Phone: Comment on above: Mar 01 2020; PATIENT WAS FASTINGPERFORMED BY: CB [facility] Zukcsm7462 [address] RoadDublin [place] [id number] Morphology Russel (Bld) [Interp] Note: Normal [facility] Work Phone: Comment on above: Verified by microsco pic examination. Mar 01 2020; PATIENT WAS FASTINGPERFORMED BY: CB [facility] Vsopkk9711 [address] RoadDublin [place] [id number] Platelets (Bld) [#/Vol] 256 {x10E3/uL} Normal 150-450 [facility] Work Phone: Comment on above: Mar 01 2020; PATIENT WAS FASTINGPERFORMED BY: CB [facility] Dewmob8407 [address]Dublin [place] [id number] Platelets (Bld) [#/Vol] 256 10*3/uL Normal 150-450 [facility]; [facility] Work Phone: Comment on above: Mar 01 2020; PATIENT WAS FASTINGPERFORMED BY: CB [facility] Zvnlpz1341 [address] RoadDublin [place] [id number] RBC (Bld) [#/Vol] 4.25 {x10E6/uL} Normal 3.77-5.28 [facility] Work Phone: Comment on above: Red blood cells appe ar slightly agglutinated Mar 01 2020; PATIENT WAS FASTINGPERFORMED BY: HERI [facility] Obgoal0631 [address] RoadDublin [place] [id number] RBC (Bld) [#/Vol] 4.25 10*6/uL Normal 3.77-5.28 [facility]; [facility] Work Phone: Comment on above: Red blood cells appe ar slightly agglutinated Mar 01 2020; PATIENT WAS FASTINGPERFORMED BY: HERI [facility] Tpvngh3112 [address] Roadblin [place] [id number] WBC (Bld) [#/Vol] 4.5 {x10E3/uL} Normal 3.4-10.8 [facility] Medicine Work Phone: Comment on above: Mar 01 2020; PATIENT WAS FASTINGPERFORMED BY: HERI [facility] Eybjwv0675 [address] RoadDublin [place] [id number] WBC (Bld) [#/Vol] 4.5 10*3/uL Normal 3.4-10.8 [facility] Internal [facility]; [facility] Work Phone: Comment on above: Mar 01 2020; PATIENT WAS FASTINGPERFORMED BY: HERI [facility] Zuyvut[address] [facility]in [place] [id number] LIPID PANEL ([id number])Ordered B y: Engine Specialist on 03-01-2020 Cholesterol [Mass/Vol] 283 mg/dL Abnormal 100-199 [facility] Internal Medicine Work Phone: Comment on above: Mar 01 2020; PATIENT WAS FASTINGPERFORMED BY: HERI [facility] Bgxexg[address] [facility]bl[facility] [place] [id number] Cholesterol in HDL [Mass/Vol] 74 mg/dL Normal [facility] Work Phone: Comment on above: Mar 01 2020; PATIENT WAS FASTINGPERFORMED BY: HERI [facility] Vewqsr4[address] [facility] [place] [id number] Cholesterol in LDL [Mass/Vol] 176 mg/dL Abnormal 0-99 [facility] Work Phone: Comment on above: Mar 01 2020; PATIENT WAS FASTINGPERFORMED BY: HERI [facility] Bvvkzj[address] [facility]bl[facility] [place] [id number] Cholesterol in LDL/Cholesterol in HDL [Mass ratio] 2.4 {ratio} Normal 0.0-3.2 [facility] Work Phone: Comment on above: LDL/HDL Ratio Men Wo men 1/2 Avg.Risk 1.0 1.5 Avg.Risk 3.6 3.2 2X Avg.Risk 6.2 5.0 3X Avg.Risk 8.0 6.1 Mar 01 2020; PATIENT WAS FASTINGPERFORMED BY: HERI [facility] Zuhkom1584 [address] RoadDuin [place] [id number] Cholesterol in VLDL [Mass/Vol] 33 mg/dL Normal 5-40 [facility] Work Phone: Comment on above: Mar 01 2020; PATIENT WAS FASTINGPERFORMED BY: HERI [facility] Afpyla[address] [facility]in [place] [id number] Triglyceride [Mass/Vol] 163 mg/dL Abnormal 0-149 [facility] Work Phone: Comment on above: Mar 01 2020; PATIENT WAS FASTINGPERFORMED BY: HERI [facility] Xbiuaf[address] [facility]in [place] [id number] Metabolic Panel, Comprehensi ve ([id number])Ordered By: Engine Specialist on 03-01-2020 Albumin [Mass/Vol] 4.4 g/dL Normal 3.8-4.8 [facility] Internal Medicine Work Phone: Comment on above: Mar 01 2020; PATIENT WAS FASTINGPERFORMED BY: CB [facility] Mkwmaw[address] [facility]bl[facility] [place] [id number] Albumin/Globulin [Mass ratio] 1.3 {ratio} Normal 1.2-2.2 [facility] Work Phone: Comment on above: Mar 01 2020; PATIENT WAS FASTINGPERFORMED BY: CB [facility] Chgzig[address] [facility] HospitalDuin [place] [id number] ALP [Catalytic activity/Vol] 77 [iU]/L Normal 39-117 [facility] Work Phone: Comment on above: Mar 01 2020; PATIENT WAS FASTINGPERFORMED BY: CB [facility] Lsqwje3726 [address] RoadDublin [place] [id number] ALP [Catalytic activity/Vol] 77 U/L Normal 39-117 [facility]; [facility] Work Phone: Comment on above: Mar 01 2020; PATIENT WAS FASTINGPERFORMED BY: CB [facility] Etbafz9237 [address] RoadDublin [place] [id number] ALT [Catalytic activity/Vol] 45 [iU]/L Abnormal 0-32 [facility] Work Phone: Comment on above: Mar 01 2020; PATIENT WAS FASTINGPERFORMED BY: CB [facility] Plxktg4532 [address] RoadDublin [place] [id number] ALT [Catalytic activity/Vol] 45 U/L Abnormal 0-32 [facility]; [facility] Work Phone: Comment on above: Mar 01 2020; PATIENT WAS FASTINGPERFORMED BY: CB [facility] Izhdlv0736 [address] RoadDublin [place] [id number] AST [Catalytic activity/Vol] 41 [iU]/L Abnormal 0-40 [facility] Work Phone: Comment on above: Mar 01 2020; PATIENT WAS FASTINGPERFORMED BY: CB [facility] Sqboti8846 [address] RoadDublin [place] [id number] AST [Catalytic activity/Vol] 41 U/L Abnormal 0-40 [facility]; [facility] Work Phone: Comment on above: Mar 01 2020; PATIENT WAS FASTINGPERFORMED BY: CB [facility] Uuylwa1960 [address] [place] [id number] Bilirubin [Mass/Vol] 0.5 mg/dL Normal 0.0-1.2 [facility] Work Phone: Comment on above: Mar 01 2020; PATIENT WAS FASTINGPERFORMED BY: CB [facility] Zjnuzh4243 [address] RoadDublin [place] [id number] Calcium [Mass/Vol] 9.5 mg/dL Normal 8.7-10.2 [facility] Internal Medicine Work Phone: Comment on above: Mar 01 2020; PATIENT WAS FASTINGPERFORMED BY: CB [facility] Ekzmff9029 [address] RoadDublin [place] [id number] Chloride [Moles/Vol] 104 mmol/L Normal 96-106 [facility] Work Phone: Comment on above: Mar 01 2020; PATIENT WAS FASTINGPERFORMED BY: CB [facility] Yqogsc4004 [address] RoadDublin [place] [id number] CO2 [Moles/Vol] 21 mmol/L Normal 20-29 [facility] Internal Medicine Work Phone: Comment on above: Mar 01 2020; PATIENT WAS FASTINGPERFORMED BY: CB [facility] Yvuuwc9685 [address] RoadDublin [place] [id number] Creatinine [Mass/Vol] 0.98 mg/dL Normal 0.57-1.00 [facility] Internal Medicine Work Phone: Comment on above: Mar 01 2020; PATIENT WAS FASTINGPERFORMED BY: CB [facility] Jwtdmv0852 [address]Dublin [place] [id number] GFR/1.73 sq M predicted among blacks CKD-EPI (S/P/Bld) [Vol rate/Area] 78 mL/min/1.73 Normal [facility] Work Phone: Comment on above: Mar 01 2020; PATIENT WAS FASTINGPERFORMED BY: CB [facility] Qqbsee7148 [address] RoadDublin [place] [id number] GFR/1.73 sq M predicted among non-blacks CKD-EPI (S/P/Bld) [Vol rate/Area] 67 mL/min/1.73 Normal [facility] Work Phone: Comment on above: Mar 01 2020; PATIENT WAS FASTINGPERFORMED BY: CB [facility] Orqgjf4391 [address] RoadDublin [place] [id number] Globulin (S) [Mass/Vol] 3.3 g/dL Normal 1.5-4.5 [facility] Work Phone: Comment on above: Mar 01 2020; PATIENT WAS FASTINGPERFORMED BY: CB [facility] Fssdfy2092 [address] RoadDublin [place] [id number] Glucose [Mass/Vol] 95 mg/dL Normal 65-99 [facility] Internal Medicine Work Phone: Comment on above: Mar 01 2020; PATIENT WAS FASTINGPERFORMED BY: CB [facility] Rzuzrn8133 [address] RoadDublin [place] [id number] Potassium [Moles/Vol] 4.4 mmol/L Normal 3.5-5.2 [facility] Internal Medicine Work Phone: Comment on above: Mar 01 2020; PATIENT WAS FASTINGPERFORMED BY: CB [facility] Dpcqud2851 [address] RoadDublin [place] [id number] Protein [Mass/Vol] 7.7 g/dL Normal 6.0-8.5 [facility] Internal Medicine Work Phone: Comment on above: Mar 01 2020; PATIENT WAS FASTINGPERFORMED BY: CB [facility] Uxeqnt8467 [address] RoadDublin [place] [id number] Sodium [Moles/Vol] 139 mmol/L Normal 134-144 [facility] Medicine Work Phone: Comment on above: Mar 01 2020; PATIENT WAS FASTINGPERFORMED BY: CB [facility] Jtvhks0112 [address] RoadDublin [place] [id number] Urea nitrogen [Mass/Vol] 15 mg/dL Normal 6-24 [facility] Internal Medicine Work Phone: Comment on above: Mar 01 2020; PATIENT WAS FASTINGPERFORMED BY: CB [facility] Ouchsx6862 [address] RoadDublin [place] [id number] Urea nitrogen/Creatinine [Mass ratio] 15 mg/mg Normal 9-23 [facility] Internal Medicine Work Phone: Comment on above: Mar 01 2020; PATIENT WAS FASTINGPERFORMED BY: CB [facility] Sgoygg1580 [address] RoadDublin [place] [id number] TSH (THYROID STIMULATING HOR SHELLY) ([id number])Ordered By: Engine Specialist on 03-01-2020 TSH Qn 1.710 {uIU/mL} Normal 0.450-4.500 Comprehen sive Internal Medicine Work Phone: Comment on above: Mar 01 2020; PATIENT WAS FASTINGPERFORMED BY: HERI [facility] Onkzdd0919 [facility] [id number] FECAL OCCULT- Tubes sent antonia e ([id number])Ordered By: Andrew Baig on 02-28-2020 Hemoglobin.gastrointes tinal Ql (Stl) Negative Normal [facility] Work Phone: FECAL OCCULT- Tubes sent antonia e ([id number])Ordered By: Andrew Stewart on 02-28-2020 Hemoglobin.gastrointes tinal Ql (Stl) Negative Normal [facility]; [facility] Work Phone: URINE LANDRY CULTURE-IDENTIFICA TN ([id number])Ordered By: Engine Specialist on 06-28-2019 Bacteria identified Cx Nom (U) Final report Abnormal [facility] Work Phone: Comment on above: PATIENT NOT FASTINGP ERFORMED BY: HERI [facility] Dpfhoo3846 [facility] [id number] Information: SRC: Bacteria identified Cx Nom (U) BETAGB Abnormal [facility] Work Phone: Comment on above: Beta hemolytic Strep tococcus, group B10,000-25,000 colony forming units per mLPenicillin and ampicillin are drugs of choice for treatment ofbeta-hemolytic streptococcal infections. Susceptibility testing ofpenicillins and other beta-lactam agents approved by the FDA fortreatment of beta-hemolytic streptococcal infections need not beperformed routinely because nonsusceptible isolates are extremelyrare in any beta-hemolytic streptococcus and have not been reportedfor Streptococcus pyogenes (group A). (CLSI) PATIENT NOT FASTINGP ERFORMED BY: HERI [facility] Gboxkw5470 [facility] [id number] Information: SRC:KETURAH Urinalysis, Office ([id number])Or dered By: Cally Bales on 06-28-2019 Bilirubin Ql (U) Negative Normal Comprehe nsive Internal Medicine Work Phone: Bilirubin Ql (U) Negative Normal Comprehe nsive Internal Medicine; [facility] Work Phone: Glucose Test strip (U) [Mass/Vol] Negative Normal [facility] Work Phone: Glucose Test strip (U) [Mass/Vol] Negative Normal [facility]; [facility] Work Phone: Hemoglobin Ql (U) Negative Normal Compreh ensive Internal Medicine Work Phone: Hemoglobin Ql (U) Negative Normal Compreh ensive Internal Medicine; [facility] Work Phone: Ketones Ql (U) Negative Normal Comprehens gian Internal Medicine Work Phone: Ketones Ql (U) Negative Normal Comprehens gian Internal Medicine; [facility] Work Phone: Leukocyte esterase Test strip Ql (U) Negative Normal [facility] Work Phone: Leukocyte esterase Test strip Ql (U) Negative Normal [facility]; [facility] Work Phone: Nitrite Ql (U) Negative Normal Comprehens gian Internal Medicine Work Phone: Nitrite Ql (U) Negative Normal Comprehens gian Internal Medicine; [facility] Work Phone: pH (U) 5 [pH] Abnormal [facility] Work Phone: Protein Ql (U) Negative Normal Comprehens gian Internal Medicine Work Phone: Protein Ql (U) Negative Normal Comprehens gian Internal Medicine; [facility] Work Phone: Specific gravity (U) [Rel density] 1.030 1 Abnormal [facility] Work Phone: Urobilinogen (24H U) [Mass/Time] Normal Normal [facility] Work Phone: LIPID PANEL ([id number])Ordered B y: Engine Specialist on 06-16-2018 Cholesterol [Mass/Vol] 249 mg/dL Abnormal 100-199 Co mprehensive Internal Medicine Work Phone: Comment on above: PATIENT WAS FASTINGP ERFORMED BY: LabCoAstra Health CenterVypqgu1810 [facility] [id number] Cholesterol in HDL [Mass/Vol] 74 mg/dL Normal [facility] Work Phone: Comment on above: PATIENT WAS FASTINGP ERFORMED BY: HERI Teresalin6370 [facility] [id number] Cholesterol in LDL [Mass/Vol] 152 mg/dL Abnormal 0-99 [facility] Work Phone: Comment on above: PATIENT WAS FASTINGP ERFORMED BY: HERI Teresalin6370 [facility] [id number] Cholesterol in LDL/Cholesterol in HDL [Mass ratio] 2.1 {ratio} Normal 0.0-3.2 [facility] Work Phone: Comment on above: LDL/HDL Ratio Men Wo men 1/2 Avg.Risk 1.0 1.5 Avg.Risk 3.6 3.2 2X Avg.Risk 6.2 5.0 3X Avg.Risk 8.0 6.1 PATIENT WAS FASTINGP ERFORMED BY: HERI Teresalin6370 [facility] [id number] Cholesterol in VLDL [Mass/Vol] 23 mg/dL Normal 5-40 [facility] Work Phone: Comment on above: PATIENT WAS FASTINGP ERFORMED BY: HERI Teresalin6370 [facility] [id number] Triglyceride [Mass/Vol] 115 mg/dL Normal 0-149 [facility] Work Phone: Comment on above: PATIENT WAS FASTINGP ERFORMED BY: HERI Teresalin6370 [facility] [id number] Blood Glucose , Office ([phone])Ordered By: Janet Mendoza on 04-13-2018 Glucose Glucometer (BldC) [Moles/Vol] 148 1 Normal [facility] Work Phone: HgA1C , Office ([phone])Ordere d By: Janet Mendoza on 04-13-2018 HbA1c (Bld) [Mass fraction] 4.9 % Normal 4.6 - 7.1 [facility] Work Phone: CBC, Platelets & Auto Diff ( 25208)Ordered By: Engine Specialist on 04-10-2016 Basophils (Bld) [#/Vol] 0.0 {x10E3/uL} Normal 0.0-0.2 [facility] Work Phone: Comment on above: PATIENT WAS FASTINGP ERFORMED BY: HERI LabManas Qpotuv5088 [address] RoadDublin [place] [id number] Basophils (Bld) [#/Vol] 0.0 10*3/uL Normal 0.0-0.2 [facility]; [facility] Work Phone: Comment on above: PATIENT WAS FASTINGP ERFORMED BY: HERI [facility] Uzsgvc7003 [address] RoadDublin [place] [id number] Basophils/100 WBC (Bld) 1 % Normal [facility] Work Phone: Comment on above: PATIENT WAS FASTINGP ERFORMED BY: HERI LabManas Sinuji7903 [address] RoadDublin [place] [id number] Eosinophils (Bld) [#/Vol] 0.2 {x10E3/uL} Normal 0.0-0.4 [facility] Work Phone: Comment on above: PATIENT WAS FASTINGP ERFORMED BY: HERI LabManas Jwblbk3407 [address] RoadDublin [place] [id number] Eosinophils (Bld) [#/Vol] 0.2 10*3/uL Normal 0.0-0.4 [facility]; [facility] Work Phone: Comment on above: PATIENT WAS FASTINGP ERFORMED BY: [facility] Qqmkqj8385 [address] RoadDublin [place] [id number] Eosinophils/100 WBC (Bld) 3 % Normal [facility] Work Phone: Comment on above: PATIENT WAS FASTINGP ERFORMED BY: HERI [facility] Qtrdbc0532 [address] RoadDublin [place] [id number] Erythrocyte distribution width (RBC) [Ratio] 13.1 % Normal 12.3-15.4 [facility] Work Phone: Comment on above: PATIENT WAS FASTINGP ERFORMED BY: [facility] Ukmeqh2300 [address] RoadDublin [place] [id number] Hematocrit (Bld) [Volume fraction] 41.1 % Normal 34.0-46.6 [facility] Work Phone: Comment on above: PATIENT WAS FASTINGP ERFORMED BY: HERI Tatum Jvpvey0328 [facility] [id number] Hemoglobin (Bld) [Mass/Vol] 14.2 g/dL Normal 11.1-15.9 [facility] Work Phone: Comment on above: PATIENT WAS FASTINGP ERFORMED BY: [facility] Jcbjhq9605 [facility] [id number] Immature granulocytes (Bld) [#/Vol] 0.0 {x10E3/uL} Normal 0.0-0.1 [facility] Work Phone: Comment on above: PATIENT WAS FASTINGP ERFORMED BY: [facility] Efvapl[address] [id number] Immature granulocytes (Bld) [#/Vol] 0.0 10*3/uL Normal 0.0-0.1 [facility]; [facility] Work Phone: Comment on above: PATIENT WAS FASTINGP ERFORMED BY: [facility] Fjlace0802 [facility] [id number] Immature granulocytes/100 WBC (Bld) 0 % Normal [facility] Work Phone: Comment on above: PATIENT WAS FASTINGP ERFORMED BY: ChristianaL[place] 7683270 [facility] [id number] Lymphocytes (Bld) [#/Vol] 1.6 {x10E3/uL} Normal 0.7-3.1 [facility] Work Phone: Comment on above: PATIENT WAS FASTINGP ERFORMED BY: [facility] Ndxbrz6850 [facility] [id number] Lymphocytes (Bld) [#/Vol] 1.6 10*3/uL Normal 0.7-3.1 [facility]; [facility] Work Phone: Comment on above: PATIENT WAS FASTINGP ERFORMED BY: HERI [facility]aM[facility] [facility]in [place] [id number] Lymphocytes/100 WBC (Bld) 32 % Normal [facility] Work Phone: Comment on above: PATIENT WAS FASTINGP ERFORMED BY: [facility] [facility] [id number] MCH (RBC) [Entitic mass] 32.4 pg Normal 26.6-33.0 [facility] Work Phone: Comment on above: PATIENT WAS FASTINGP ERFORMED BY: LabM[facility]in[facility] [facility] [id number] MCHC (RBC) [Mass/Vol] 34.5 g/dL Normal 31.5-35.7 [facility] Internal Medicine Work Phone: Comment on above: PATIENT WAS FASTINGP ERFORMED BY: [facility]6370 [facility] [id number] MCV (RBC) [Entitic vol] 94 fL Normal 79-97 [facility] Work Phone: Comment on above: PATIENT WAS FASTINGP ERFORMED BY: [facility] [facility] [id number] Monocytes (Bld) [#/Vol] 0.4 {x10E3/uL} Normal 0.1-0.9 [facility] Work Phone: Comment on above: PATIENT WAS FASTINGP ERFORMED BY: [facility]6370 [facility] [id number] Monocytes (Bld) [#/Vol] 0.4 10*3/uL Normal 0.1-0.9 [facility]; [facility] Work Phone: Comment on above: PATIENT WAS FASTINGP ERFORMED BY: LabM[facility]in[facility] [facility]in [place] [id number] Monocytes/100 WBC (Bld) 8 % Normal [facility] Work Phone: Comment on above: PATIENT WAS FASTINGP ERFORMED BY: LabLisa Ville 7683270 [address] RoadDublin [place] [id number] Neutrophils (Bld) [#/Vol] 2.8 {x10E3/uL} Normal 1.4-7.0 [facility] Work Phone: Comment on above: PATIENT WAS FASTINGP ERFORMED BY: HERI [facility] Qfewau7862 [address] RoadDublin [place] [id number] Neutrophils (Bld) [#/Vol] 2.8 10*3/uL Normal 1.4-7.0 [facility]; [facility] Work Phone: Comment on above: PATIENT WAS FASTINGP ERFORMED BY: HERI LabCoever TeresaOeiewt6950 Dom[address] RoadDublin [place] [id number] Neutrophils/100 WBC (Bld) 56 % Normal [facility] Work Phone: Comment on above: PATIENT WAS FASTINGP ERFORMED BY: HERI LabElena TeresaTctvuu7657 [address] RoadDublin [place] [id number] Platelets (Bld) [#/Vol] 257 {x10E3/uL} Normal 150-379 [facility] Work Phone: Comment on above: PATIENT WAS FASTINGP ERFORMED BY: HERI [facility] Rcoayz1031 [address] RoadDublin [place] [id number] Platelets (Bld) [#/Vol] 257 10*3/uL Normal 150-379 [facility]; [facility] Work Phone: Comment on above: PATIENT WAS FASTINGP ERFORMED BY: HERI [facility] Hvrivx2874 [address] RoadDublin [place] [id number] RBC (Bld) [#/Vol] 4.38 {x10E6/uL} Normal 3.77-5.28 [facility] Work Phone: Comment on above: PATIENT WAS FASTINGP ERFORMED BY: HERI [facility] Rclnus0124 [address] RoadDublin [place] [id number] RBC (Bld) [#/Vol] 4.38 10*6/uL Normal 3.77-5.28 [facility] Internal Medicine; [facility] Work Phone: Comment on above: PATIENT WAS FASTINGP ERFORMED BY: HERI [facility] Krwixh[address] [facility]in [place] [id number] WBC (Bld) [#/Vol] 5.1 {x10E3/uL} Normal 3.4-10.8 [facility]eren[facility] Work Phone: Comment on above: PATIENT WAS FASTINGP ERFORMED BY: CB [facility] Ymleir[address] [facility] Hospitalblin [place] [id number] WBC (Bld) [#/Vol] 5.1 10*3/uL Normal 3.4-10.8 [facility] Internal Medicine; [facility] Work Phone: Comment on above: PATIENT WAS FASTINGP ERFORMED BY: CB [facility] Jesrnf2649 [facility] [id number] Lipid Panel ([id number])Ordered B y: Engine Specialist on 04-10-2016 Cholesterol [Mass/Vol] 239 mg/dL Abnormal 100-199 [facility] Internal Medicine Work Phone: Comment on above: PATIENT WAS FASTINGP ERFORMED BY: CB [facility] Jmalbw1881 [facility] [id number] Cholesterol in HDL [Mass/Vol] 59 mg/dL Normal [facility] Work Phone: Comment on above: According to ATP-III Guidelines, HDL-C >59 mg/dL is considered anegative risk factor for CHD. PATIENT WAS FASTINGP ERFORMED BY: CB [facility] Bovrdc1605 [facility] [id number] Cholesterol in LDL [Mass/Vol] 144 mg/dL Abnormal 0-99 [facility] Work Phone: Comment on above: PATIENT WAS FASTINGP ERFORMED BY: CB [facility] Ghaxyj[address] [facility]in [place] [id number] Cholesterol in LDL/Cholesterol in HDL [Mass ratio] 2.4 {ratio_units} Normal 0.0-3.2 [facility] Work Phone: Comment on above: LDL/HDL Ratio Men Wo men 1/2 Avg.Risk 1.0 1.5 Avg.Risk 3.6 3.2 2X Avg.Risk 6.2 5.0 3X Avg.Risk 8.0 6.1 PATIENT WAS FASTINGP ERFORMED BY: HERI LabElena TeresaKqdwby2370 [address] RoadDublin [place] [id number] Cholesterol in VLDL [Mass/Vol] 36 mg/dL Normal 5-40 [facility] Work Phone: Comment on above: PATIENT WAS FASTINGP ERFORMED BY: HERI LabElena TeresaYcqege3271 [address] RoadDublin [place] [id number] Triglyceride [Mass/Vol] 178 mg/dL Abnormal 0-149 [facility] Work Phone: Comment on above: PATIENT WAS FASTINGP ERFORMED BY: HERI Teresalin6370 [address]Dublin [place] [id number] Metabolic Panel, Comprehensi ve (87697)Ordered By: Engine Specialist on 04-10-2016 Albumin [Mass/Vol] 4.1 g/dL Normal 3.5-5.5 [facility] Internal Medicine Work Phone: Comment on above: PATIENT WAS FASTINGP ERFORMED BY: HERI Teresalin6[address]Dublin [place] [id number] Albumin/Globulin [Mass ratio] 1.3 {ratio} Normal 1.1-2.5 [facility] Work Phone: Comment on above: PATIENT WAS FASTINGP ERFORMED BY: HERI Teresalin6370 [address]Dublin [place] [id number] ALP [Catalytic activity/Vol] 61 [iU]/L Normal 39-117 [facility] Work Phone: Comment on above: PATIENT WAS FASTINGP ERFORMED BY: HERI LabCoeevr Zuizjs1224 [address] RoadDublin [place] [id number] ALP [Catalytic activity/Vol] 61 U/L Normal 39-117 [facility]; [facility] Work Phone: Comment on above: PATIENT WAS FASTINGP ERFORMED BY: HERI LabElena Hfwlvs4241 [address] RoadDublin [place] [id number] ALT [Catalytic activity/Vol] 16 [iU]/L Normal 0-32 [facility] Work Phone: Comment on above: PATIENT WAS FASTINGP ERFORMED BY: [facility] Wwbkxp7887 [address] RoadDublin [place] [id number] ALT [Catalytic activity/Vol] 16 U/L Normal 0-32 [facility]; [facility] Work Phone: Comment on above: PATIENT WAS FASTINGP ERFORMED BY: [facility] Qmyoic7434 [address] RoadDublin [place] [id number] AST [Catalytic activity/Vol] 22 [iU]/L Normal 0-40 [facility] Work Phone: Comment on above: PATIENT WAS FASTINGP ERFORMED BY: [facility] Lwxbbz2470 [address] RoadDublin [place] [id number] AST [Catalytic activity/Vol] 22 U/L Normal 0-40 [facility]; [facility] Work Phone: Comment on above: PATIENT WAS FASTINGP ERFORMED BY: [facility] Bpqunz2046 [address] RoadDublin [place] [id number] Bilirubin [Mass/Vol] 0.3 mg/dL Normal 0.0-1.2 Comp rehensive Internal Medicine Work Phone: Comment on above: PATIENT WAS FASTINGP ERFORMED BY: [facility] Qkrmrf4074 [address] RoadDublin [place] [id number] Calcium [Mass/Vol] 9.1 mg/dL Normal 8.7-10.2 [facility] Internal Medicine Work Phone: Comment on above: PATIENT WAS FASTINGP ERFORMED BY: [facility] Jtsqae9906 [address] RoadDublin [place] [id number] Chloride [Moles/Vol] 100 mmol/L Normal 97-108 Comp [facility] instituteensive Internal Medicine Work Phone: Comment on above: PATIENT WAS FASTINGP ERFORMED BY: [facility] Ivzpuz8943 [address] RoadDublin [place] [id number] CO2 [Moles/Vol] 17 mmol/L Abnormal 18-29 Comprehen [facility] Internal Medicine Work Phone: Comment on above: PATIENT WAS FASTINGP ERFORMED BY: [facility] Ndlylg1735 [address] RoadDublin [place] [id number] Creatinine [Mass/Vol] 0.77 mg/dL Normal 0.57-1.00 [facility] Internal Medicine Work Phone: Comment on above: PATIENT WAS FASTINGP ERFORMED BY: [facility] Rsrydn8161 [address] RoadDublin [place] [id number] GFR/1.73 sq M predicted among blacks CKD-EPI (S/P/Bld) [Vol rate/Area] 107 mL/min/1.73 Normal [facility] Internal Medicine Work Phone: Comment on above: PATIENT WAS FASTINGP ERFORMED BY: [facility] Gnfqss5959 [address] RoadDublin [place] [id number] GFR/1.73 sq M predicted among non-blacks CKD-EPI (S/P/Bld) [Vol rate/Area] 93 mL/min/1.73 Normal [facility] Internal Medicine Work Phone: Comment on above: PATIENT WAS FASTINGP ERFORMED BY: [facility] Lqrtpr3760 [address]Dublin [place] [id number] Globulin (S) [Mass/Vol] 3.1 g/dL Normal 1.5-4.5 [facility] Internal Medicine Work Phone: Comment on above: PATIENT WAS FASTINGP ERFORMED BY: [facility] Eyhhym1491 [address] RoadDublin [place] [id number] Glucose [Mass/Vol] 105 mg/dL Abnormal 65-99 [facility] Internal Medicine Work Phone: Comment on above: PATIENT WAS FASTINGP ERFORMED BY: [facility] Bkxzog4425 [address] RoadDublin [place] [id number] Potassium [Moles/Vol] 3.9 mmol/L Normal 3.5-5.2 [facility] Internal Medicine Work Phone: Comment on above: PATIENT WAS FASTINGP ERFORMED BY: [facility] Gjfphu0499 [address] RoadDublin [place] [id number] Protein [Mass/Vol] 7.2 g/dL Normal 6.0-8.5 [facility] Internal Medicine Work Phone: Comment on above: PATIENT WAS FASTINGP ERFORMED BY: HERI LabCoever TeresaWehybi[address] [facility] [id number] Sodium [Moles/Vol] 140 mmol/L Normal 134-144 [facility] Internal Medicine Work Phone: Comment on above: PATIENT WAS FASTINGP ERFORMED BY: HERI LabCoever TeresaGpecgw5859 [facility] [id number] Urea nitrogen [Mass/Vol] 15 mg/dL Normal 6-24 [facility] Work Phone: Comment on above: PATIENT WAS FASTINGP ERFORMED BY: HERI LabCoever TeresaLqeely7539 [facility] [id number] Urea nitrogen/Creatinine [Mass ratio] 19 mg/mg Normal 9-23 [facility] Work Phone: Comment on above: PATIENT WAS FASTINGP ERFORMED BY: HERI Winn Tstyyo3851 [facility] [id number] TSH ([id number])Ordered By: Reginaldo m Preflight Inspector on 04-10-2016 TSH Qn 1.640 {uIU/mL} Normal 0.450-4.500 [facility] Internal Medicine Work Phone: Comment on above: PATIENT WAS FASTINGP ERFORMED BY: HERI Teresalin6370 [facility] [id number] CBC W/AUTO DIFF WBC (99231)O rdered By: Engine Specialist on 05-16-2015 Basophils (Bld) [#/Vol] 0.0 {x10E3/uL} Normal 0.0-0.2 [facility] Internal Medicine Work Phone: Comment on above: PATIENT WAS FASTINGP ERFORMED BY: HERI [facility] Wjvkax7395 [facility] [id number] Information: [id number] Basophils (Bld) [#/Vol] 0.0 10*3/uL Normal 0.0-0.2 [facility]; [facility] Work Phone: Comment on above: PATIENT WAS FASTINGP ERFORMED BY: HERI ChristianaMackinac Stra[facility] Hospital6370 [facility] [id number] Information: [id number] Basophils/100 WBC (Bld) 1 % Normal [facility] Work Phone: Comment on above: PATIENT WAS FASTINGP ERFORMED BY: [place] 9638070 [facility] [id number] Information: [id number] Eosinophils (Bld) [#/Vol] 0.1 {x10E3/uL} Normal 0.0-0.4 [facility] Work Phone: Comment on above: PATIENT WAS FASTINGP ERFORMED BY: [address] [id number] Information: [id number] Eosinophils (Bld) [#/Vol] 0.1 10*3/uL Normal 0.0-0.4 [facility]; [facility] Work Phone: Comment on above: PATIENT WAS FASTINGP ERFORMED BY: [place] 9638070 [facility] [id number] Information: [id number] Eosinophils/100 WBC (Bld) 3 % Normal [facility] Work Phone: Comment on above: PATIENT WAS FASTINGP ERFORMED BY: [address] [id number] Information: [id number] Erythrocyte distribution width (RBC) [Ratio] 13.2 % Normal 12.3-15.4 [facility] Work Phone: Comment on above: PATIENT WAS FASTINGP ERFORMED BY: LabLisa Ville 7683270 [facility] [id number] Information: [id number] Hematocrit (Bld) [Volume fraction] 42.3 % Normal 34.0-46.6 [facility] Work Phone: Comment on above: PATIENT WAS FASTINGP ERFORMED BY: [facility]6370 [facility] [id number] Information: [id number] Hemoglobin (Bld) [Mass/Vol] 14.4 g/dL Normal 11.1-15.9 [facility] Work Phone: Comment on above: PATIENT WAS FASTINGP ERFORMED BY: [address] [id number] Information: [id number] Immature granulocytes (Bld) [#/Vol] 0.0 {x10E3/uL} Normal 0.0-0.1 [facility] Work Phone: Comment on above: PATIENT WAS FASTINGP ERFORMED BY: [address] [id number] Information: [id number] Immature granulocytes (Bld) [#/Vol] 0.0 10*3/uL Normal 0.0-0.1 [facility]; [facility] Work Phone: Comment on above: PATIENT WAS FASTINGP ERFORMED BY: [place] 9638070 [facility] [id number] Information: [id number] Immature granulocytes/100 WBC (Bld) 0 % Normal [facility] Work Phone: Comment on above: PATIENT WAS FASTINGP ERFORMED BY: [address] [id number] Information: [id number] Lymphocytes (Bld) [#/Vol] 1.9 {x10E3/uL} Normal 0.7-3.1 [facility] Work Phone: Comment on above: PATIENT WAS FASTINGP ERFORMED BY: [place] 9638070 [facility] [id number] Information: [id number] Lymphocytes (Bld) [#/Vol] 1.9 10*3/uL Normal 0.7-3.1 [facility]; [facility] Work Phone: Comment on above: PATIENT WAS FASTINGP ERFORMED BY: [facility]6370 [facility] [id number] Information: [id number] Lymphocytes/100 WBC (Bld) 43 % Normal [facility] Work Phone: Comment on above: PATIENT WAS FASTINGP ERFORMED BY: [address] [id number] Information: [id number] MCH (RBC) [Entitic mass] 31.9 pg Normal 26.6-33.0 [facility] Internal Medicine Work Phone: Comment on above: PATIENT WAS FASTINGP ERFORMED BY: [address] [id number] Information: [id number] MCHC (RBC) [Mass/Vol] 34.0 g/dL Normal 31.5-35.7 [facility] Internal Medicine Work Phone: Comment on above: PATIENT WAS FASTINGP ERFORMED BY: [address] [id number] Information: [id number] MCV (RBC) [Entitic vol] 94 fL Normal 79-97 [facility] Internal Medicine Work Phone: Comment on above: PATIENT WAS FASTINGP ERFORMED BY: [address] [id number] Information: [id number] Monocytes (Bld) [#/Vol] 0.3 {x10E3/uL} Normal 0.1-0.9 [facility] Work Phone: Comment on above: PATIENT WAS FASTINGP ERFORMED BY: Lab[place] 7683270 [facility] [id number] Information: [id number] Monocytes (Bld) [#/Vol] 0.3 10*3/uL Normal 0.1-0.9 [facility]; [facility] Work Phone: Comment on above: PATIENT WAS FASTINGP ERFORMED BY: HERI Tatumever Olthzt5333 [facility] [id number] Information: [id number] Monocytes/100 WBC (Bld) 7 % Normal [facility] Work Phone: Comment on above: PATIENT WAS FASTINGP ERFORMED BY: HERI Dino Urena [facility] [id number] Information: [id number] Neutrophils (Bld) [#/Vol] 2.0 {x10E3/uL} Normal 1.4-7.0 [facility] Work Phone: Comment on above: PATIENT WAS FASTINGP ERFORMED BY: HERI ChristianaElena TeresaUwaego7409 [facility] [id number] Information: [id number] Neutrophils (Bld) [#/Vol] 2.0 10*3/uL Normal 1.4-7.0 [facility]; [facility] Work Phone: Comment on above: PATIENT WAS FASTINGP ERFORMED BY: HERI ChristianaElena Tmvfmw9970 [facility] [id number] Information: [id number] Neutrophils/100 WBC (Bld) 46 % Normal [facility] Work Phone: Comment on above: PATIENT WAS FASTINGP ERFORMED BY: HERI ChristianaElena TeresaKspqgt1109 [facility] [id number] Information: [id number] Platelets (Bld) [#/Vol] 254 {x10E3/uL} Normal 150-379 [facility] Work Phone: Comment on above: PATIENT WAS FASTINGP ERFORMED BY: HERI ChristianaElena Uyjsrc3053 [facility] [id number] Information: [id number] Platelets (Bld) [#/Vol] 254 10*3/uL Normal 150-379 [facility]; [facility] Work Phone: Comment on above: PATIENT WAS FASTINGP ERFORMED BY: [facility]6370 [facility] [id number] Information: [id number] RBC (Bld) [#/Vol] 4.52 {x10E6/uL} Normal 3.77-5.28 [facility] Work Phone: Comment on above: PATIENT WAS FASTINGP ERFORMED BY: [facility]6370 [facility] [id number] Information: [id number] RBC (Bld) [#/Vol] 4.52 10*6/uL Normal 3.77-5.28 [facility]; [facility] Work Phone: Comment on above: PATIENT WAS FASTINGP ERFORMED BY: [facility]6370 [facility] [id number] Information: [id number] WBC (Bld) [#/Vol] 4.4 {x10E3/uL} Normal 3.4-10.8 [facility] Work Phone: Comment on above: PATIENT WAS FASTINGP ERFORMED BY: [facility]6370 [facility] [id number] Information: [id number] WBC (Bld) [#/Vol] 4.4 10*3/uL Normal 3.4-10.8 [facility] Internal Medicine; [facility] Work Phone: Comment on above: PATIENT WAS FASTINGP ERFORMED BY: [facility]6370 [facility] [id number] Information: [id number] LIPID PANEL (85492)Ordered B y: Engine Specialist on 05-16-2015 Cholesterol [Mass/Vol] 233 mg/dL Abnormal 100-199 [facility] medicine[facility] Work Phone: Comment on above: Effective May 22, 2015 the reference interval for Cholesterol, Total will be changing to: 0 - 19 years 100 - 169 >19 years 100 - 199 PATIENT WAS FASTINGP ERFORMED BY: HERI [facility] Yybqbu4312 [address] REachCentral Harnett Hospitalin [place] [id number] Cholesterol in HDL [Mass/Vol] 64 mg/dL Normal [facility] Work Phone: Comment on above: According to ATP-III Guidelines, HDL-C >59 mg/dL is considered anegative risk factor for CHD. PATIENT WAS FASTINGP ERFORMED BY: HERI [facility] Qeqgxy5581 [address] REachCentral Harnett Hospitalin [place] [id number] Cholesterol in LDL [Mass/Vol] 132 mg/dL Abnormal 0-99 [facility] Work Phone: Comment on above: Effective May 22, 2015 the reference interval for LDL Cholesterol Calc will be changing to: 0 - 19 years 0 - 109 >19 years 0 - 99 PATIENT WAS FASTINGP ERFORMED BY: HERI LabManas Guuemr9060 [address] REachSt. Luke's Hospital [id number] Cholesterol in LDL/Cholesterol in HDL [Mass ratio] 2.1 {ratio_units} Normal 0.0-3.2 [facility] Work Phone: Comment on above: LDL/HDL Ratio Men Wo men 1/2 Avg.Risk 1.0 1.5 Avg.Risk 3.6 3.2 2X Avg.Risk 6.2 5.0 3X Avg.Risk 8.0 6.1 PATIENT WAS FASTINGP ERFORMED BY: HERI LabManas Jrxsba5665 [facility] [id number] Cholesterol in VLDL [Mass/Vol] 37 mg/dL Normal 5-40 [facility] Work Phone: Comment on above: PATIENT WAS FASTINGP ERFORMED BY: HERI [facility] Casrcn7023 [address] [facility] [id number] Triglyceride [Mass/Vol] 185 mg/dL Abnormal 0-149 [facility] Work Phone: Comment on above: Effective May 22, 2015 the reference interval for Triglycerides will be changing to: 0 - 9 years 0 - 74 10 - 19 years 0 - 89 >19 years 0 - 149 PATIENT WAS FASTINGP ERFORMED BY: [facility] Vokidw8861 Domingo RoadDublin [place] [id number] METABOLIC PANEL, COMPREHENSI VE ([id number])Ordered By: Engine Specialist on 05-16-2015 Albumin [Mass/Vol] 4.5 g/dL Normal 3.5-5.5 [facility] Internal Medicine Work Phone: Comment on above: PATIENT WAS FASTINGP ERFORMED BY: HERI [facility] Nbixxa7220 Domingo RoadDublin [place] [id number] Albumin/Globulin [Mass ratio] 1.5 {ratio} Normal 1.1-2.5 [facility] Work Phone: Comment on above: PATIENT WAS FASTINGP ERFORMED BY: HERI [facility] Eozyxe9201 Domingo RoadDublin [place] [id number] ALP [Catalytic activity/Vol] 51 [iU]/L Normal 39-117 [facility] Work Phone: Comment on above: PATIENT WAS FASTINGP ERFORMED BY: HERI [facility] Xsbkge9470 Domingo RoadDublin [place] [id number] ALP [Catalytic activity/Vol] 51 U/L Normal 39-117 [facility]; [facility] Work Phone: Comment on above: PATIENT WAS FASTINGP ERFORMED BY: HERI [facility] Eiiqup3753 [address]ingo RoadDublin [place] [id number] ALT [Catalytic activity/Vol] 14 [iU]/L Normal 0-32 [facility] Work Phone: Comment on above: PATIENT WAS FASTINGP ERFORMED BY: HERI [facility] Eqdhnz4141 Domingo RoadDublin [place] [id number] ALT [Catalytic activity/Vol] 14 U/L Normal 0-32 [facility]; [facility] Work Phone: Comment on above: PATIENT WAS FASTINGP ERFORMED BY: CB [facility] Gyjuwd6279 [address]ingo RoadDublin [place] [id number] AST [Catalytic activity/Vol] 18 [iU]/L Normal 0-40 [facility] Work Phone: Comment on above: PATIENT WAS FASTINGP ERFORMED BY: HERI [facility] Oizrky6178 [address] RoadDublin [place] [id number] AST [Catalytic activity/Vol] 18 U/L Normal 0-40 [facility]; [facility] Work Phone: Comment on above: PATIENT WAS FASTINGP ERFORMED BY: HERI [facility] Hjfibs6525 [address] RoadDublin [place] [id number] Bilirubin [Mass/Vol] 0.5 mg/dL Normal 0.0-1.2 [facility] Work Phone: Comment on above: PATIENT WAS FASTINGP ERFORMED BY: CB [facility] Gsekpq2554 [address]ingo RoadDublin [place] [id number] Calcium [Mass/Vol] 9.5 mg/dL Normal 8.7-10.2 [facility] Internal Medicine Work Phone: Comment on above: PATIENT WAS FASTINGP ERFORMED BY: HERI [facility] Ueratb1416 [address] RoadDublin [place] [id number] Chloride [Moles/Vol] 103 mmol/L Normal 97-108 [facility] Work Phone: Comment on above: PATIENT WAS FASTINGP ERFORMED BY: [facility] Ifrhgh5040 Domingo RoadDublin [place] [id number] CO2 [Moles/Vol] 21 mmol/L Normal 18-29 [facility] Internal Medicine Work Phone: Comment on above: PATIENT WAS FASTINGP ERFORMED BY: [facility] Yuqvkq9682 [address] RoadDublin [place] [id number] Creatinine [Mass/Vol] 0.83 mg/dL Normal 0.57-1.00 [facility] Internal Medicine Work Phone: Comment on above: PATIENT WAS FASTINGP ERFORMED BY: [facility] Lafmyy9926 [address]ingo RoadDublin [place] [id number] GFR/1.73 sq M predicted among blacks CKD-EPI (S/P/Bld) [Vol rate/Area] 98 mL/min/1.73 Normal [facility] Internal Medicine Work Phone: Comment on above: PATIENT WAS FASTINGP ERFORMED BY: [facility] Iubmbe3337 [address] RoadDublin [place] [id number] GFR/1.73 sq M predicted among non-blacks CKD-EPI (S/P/Bld) [Vol rate/Area] 85 mL/min/1.73 Normal [facility] Internal Medicine Work Phone: Comment on above: PATIENT WAS FASTINGP ERFORMED BY: HERI LabElena TeresaUntaky9698 [address] RoadDublin [place] [id number] Globulin (S) [Mass/Vol] 3.1 g/dL Normal 1.5-4.5 [facility] Internal Medicine Work Phone: Comment on above: PATIENT WAS FASTINGP ERFORMED BY: HERI [facility] Lodlkb3308 [address] RoadDublin [place] [id number] Glucose [Mass/Vol] 95 mg/dL Normal 65-99 [facility] Internal Medicine Work Phone: Comment on above: PATIENT WAS FASTINGP ERFORMED BY: HERI LabManas Yzaafh8022 [address] RoadDublin [place] [id number] Potassium [Moles/Vol] 3.9 mmol/L Normal 3.5-5.2 [facility] Internal Medicine Work Phone: Comment on above: PATIENT WAS FASTINGP ERFORMED BY: HERI LabElena TeresaVzicye4544 [address] RoadDublin [place] [id number] Protein [Mass/Vol] 7.6 g/dL Normal 6.0-8.5 [facility] Internal Medicine Work Phone: Comment on above: PATIENT WAS FASTINGP ERFORMED BY: HERI [facility] Nmayuf2242 [address] RoadDublin [place] [id number] Sodium [Moles/Vol] 140 mmol/L Normal 134-144 [facility] Internal Medicine Work Phone: Comment on above: PATIENT WAS FASTINGP ERFORMED BY: HERI [facility] Wkvnxs3240 [address] RoadDublin [place] [id number] Urea nitrogen [Mass/Vol] 18 mg/dL Normal 6-24 [facility] Internal Medicine Work Phone: Comment on above: PATIENT WAS FASTINGP ERFORMED BY: HERI [facility] Cgurfi9589 [address] RoadDublin [place] [id number] Urea nitrogen/Creatinine [Mass ratio] 22 mg/mg Normal 9-23 [facility] Work Phone: Comment on above: PATIENT WAS FASTINGP ERFORMED BY: [employer] [facility] Zktepr9941 [address] REachCentral Harnett Hospitalin [place] [id number] TSH ([id number])Ordered By: NuHabitat m Preflight Inspector on 05-16-2015 TSH Qn 0.776 {uIU/mL} Normal 0.450-4.500 Comprehen sive Internal Medicine Work Phone: Comment on above: PATIENT WAS FASTINGP ERFORMED BY: [employer] [facility] Tvfatd0211 [address] GoodAppetitoAtrium Health [facility] [id number] URINE LANDRY CULTURE-LUZMA COL C OUNT (80122)Ordered By: Engine Specialist on 12-07-2013 Bacteria identified Cx Nom (U) MUG Normal [facility] Work Phone: Comment on above: Mixed urogenital karo ra400 Colonies/mL PATIENT NOT FASTINGP ERFORMED BY: [facility] Lvgwxi7598 [facility] [id number] Information: SRC:UR [id number] Bacteria identified Cx Nom (U) Final report Normal [facility] Work Phone: Comment on above: PATIENT NOT FASTINGP ERFORMED BY: [employer] LabPrecision Golf Fitness Academyrp Gkplxh9058 Dom[address] REachSt. Luke's Hospital [id number] Information: SRC:UR [id number] Urinalysis, Office (05364)Or dered By: Georgia Lilly on 12-07-2013 Bilirubin Ql (U) Negative Normal Comprehe nsive Internal Medicine Work Phone: Bilirubin Ql (U) Negative Normal Comprehe nsive Internal Medicine; [facility] Work Phone: Glucose Test strip (U) [Mass/Vol] Negative Normal [facility] Work Phone: Glucose Test strip (U) [Mass/Vol] Negative Normal [facility]; [facility] Work Phone: Hemoglobin Ql (U) Negative Normal Compreh ensive Internal Medicine Work Phone: Hemoglobin Ql (U) Negative Normal Compreh ensive Internal Medicine; [facility] Work Phone: Ketones Ql (U) Negative Normal Comprehens gian Internal Medicine Work Phone: Ketones Ql (U) Negative Normal Comprehens gian [facility] Medicine; [facility] Work Phone: Leukocyte esterase Test strip Ql (U) Negative Normal [facility] Work Phone: Leukocyte esterase Test strip Ql (U) Negative Normal [facility]; [facility] Work Phone: Nitrite Ql (U) Negative Normal Comprehens gian [facility] Medicine Work Phone: Nitrite Ql (U) Negative Normal Comprehens gian [facility]; [facility] Work Phone: pH (U) 6.5 [pH] Normal [facility] Work Phone: Protein Ql (U) Negative Normal Comprehens gian Internal Medicine Work Phone: Protein Ql (U) Negative Normal Comprehens gian [facility] Medicine; [facility] Work Phone: Specific gravity (U) [Rel density] 1.020 1 Normal [facility] Work Phone: Urobilinogen (24H U) [Mass/Time] Normal Normal [facility] Work Phone: CBC WITH MANUAL DIFF (18309) Ordered By: Engine Specialist on 10-08-2013 Basophils (Bld) [#/Vol] 0.0 {x10E3/uL} Normal 0.0-0.2 [facility] Work Phone: Comment on above: PATIENT WAS FASTINGP ERFORMED BY: HERI [employer] Cdvbci6126 [facility] [id number] Information: [id number] Basophils (Bld) [#/Vol] 0.0 10*3/uL Normal 0.0-0.2 [facility]; [facility] Work Phone: Comment on above: PATIENT WAS FASTINGP ERFORMED BY: Atonometricsox REachSt. Luke's Hospital [id number] Information: [id number] Basophils/100 WBC (Bld) 1 % Normal 0-3 [facility] Work Phone: Comment on above: PATIENT WAS FASTINGP ERFORMED BY: [facility]6370 [facility] [id number] Information: [id number] Eosinophils (Bld) [#/Vol] 0.2 {x10E3/uL} Normal 0.0-0.4 [facility] Work Phone: Comment on above: PATIENT WAS FASTINGP ERFORMED BY: [address] [id number] Information: [id number] Eosinophils (Bld) [#/Vol] 0.2 10*3/uL Normal 0.0-0.4 [facility]; [facility] Work Phone: Comment on above: PATIENT WAS FASTINGP ERFORMED BY: [place] 9638070 [facility] [id number] Information: [id number],[id number] Eosinophils/100 WBC (Bld) 5 % Normal 0-5 [facility] Work Phone: Comment on above: PATIENT WAS FASTINGP ERFORMED BY: [address] [id number] Information: [id number] Erythrocyte distribution width (RBC) [Ratio] 13.3 % Normal 12.3-15.4 [facility] Work Phone: Comment on above: PATIENT WAS FASTINGP ERFORMED BY: [place] 9638070 [facility] [id number] Information: [id number] Hematocrit (Bld) [Volume fraction] 38.5 % Normal 34.0-46.6 [facility] Work Phone: Comment on above: PATIENT WAS FASTINGP ERFORMED BY: [address] [id number] Information: [id number] Hemoglobin (Bld) [Mass/Vol] 13.4 g/dL Normal 11.1-15.9 [facility] Work Phone: Comment on above: PATIENT WAS FASTINGP ERFORMED BY: [place] 9638070 [facility] [id number] Information: [id number] Immature granulocytes (Bld) [#/Vol] 0.0 {x10E3/uL} Normal 0.0-0.1 [facility] Work Phone: Comment on above: PATIENT WAS FASTINGP ERFORMED BY: [address] [id number] Information: [id number] Immature granulocytes (Bld) [#/Vol] 0.0 10*3/uL Normal 0.0-0.1 [facility]; [facility] Work Phone: Comment on above: PATIENT WAS FASTINGP ERFORMED BY: [address] [id number] Information: [id number] Immature granulocytes/100 WBC (Bld) 0 % Normal 0-2 [facility] Work Phone: Comment on above: PATIENT WAS FASTINGP ERFORMED BY: [address] [id number] Information: [id number],[id number] Lymphocytes (Bld) [#/Vol] 1.9 {x10E3/uL} Normal 0.7-3.1 [facility] Work Phone: Comment on above: PATIENT WAS FASTINGP ERFORMED BY: [address] [id number] Information: [id number] Lymphocytes (Bld) [#/Vol] 1.9 10*3/uL Normal 0.7-3.1 [facility]; [facility] Work Phone: Comment on above: PATIENT WAS FASTINGP ERFORMED BY: [place] [address] [facility] [id number] Information: [id number],[id number] Lymphocytes/100 WBC (Bld) 41 % Normal 14-46 [facility] Work Phone: Comment on above: PATIENT WAS FASTINGP ERFORMED BY: HERI [address] [id number] Information: [id number] MCH (RBC) [Entitic mass] 31.6 pg Normal 26.6-33.0 [facility] Work Phone: Comment on above: PATIENT WAS FASTINGP ERFORMED BY: HERI [address] [id number] Information: [id number] MCHC (RBC) [Mass/Vol] 34.8 g/dL Normal 31.5-35.7 [facility] prehensive Internal Medicine Work Phone: Comment on above: PATIENT WAS FASTINGP ERFORMED BY: HERI [address] [id number] Information: [id number] MCV (RBC) [Entitic vol] 91 fL Normal 79-97 [facility] Work Phone: Comment on above: PATIENT WAS FASTINGP ERFORMED BY: HERI [address] [id number] Information: [id number] Monocytes (Bld) [#/Vol] 0.4 {x10E3/uL} Normal 0.1-0.9 [facility] Work Phone: Comment on above: PATIENT WAS FASTINGP ERFORMED BY: HERI [address] [id number] Information: [id number] Monocytes (Bld) [#/Vol] 0.4 10*3/uL Normal 0.1-0.9 [facility]; [facility] Work Phone: Comment on above: PATIENT WAS FASTINGP ERFORMED BY: CB [place] [address] [facility] [id number] Information: [id number] Monocytes/100 WBC (Bld) 8 % Normal 4-12 [facility] Work Phone: Comment on above: PATIENT WAS FASTINGP ERFORMED BY: HERI ChristianaElena TeresaAgqfeg0028 [facility] [id number] Information: [id number] Neutrophils (Bld) [#/Vol] 2.1 {x10E3/uL} Normal 1.4-7.0 [facility] Work Phone: Comment on above: PATIENT WAS FASTINGP ERFORMED BY: HERI Teresalin6370 [facility] [id number] Information: [id number] Neutrophils (Bld) [#/Vol] 2.1 10*3/uL Normal 1.4-7.0 [facility]; [facility] Work Phone: Comment on above: PATIENT WAS FASTINGP ERFORMED BY: HERI Teresalin6370 [facility] [id number] Information: [id number] Neutrophils/100 WBC (Bld) 45 % Normal 40-74 [facility] Work Phone: Comment on above: PATIENT WAS FASTINGP ERFORMED BY: HERI [place]6370 [facility] [id number] Information: [id number] Platelets (Bld) [#/Vol] 234 {x10E3/uL} Normal 155-379 [facility] Work Phone: Comment on above: PATIENT WAS FASTINGP ERFORMED BY: HERI LabElena TeresaNrfwkb0948 [address] [facility] [id number] Information: [id number] Platelets (Bld) [#/Vol] 234 10*3/uL Normal 155-379 [facility]; [facility] Work Phone: Comment on above: PATIENT WAS FASTINGP ERFORMED BY: HERI Teresalin6370 [facility] [id number] Information: [id number] RBC (Bld) [#/Vol] 4.24 {x10E6/uL} Normal 3.77-5.28 [facility] Work Phone: Comment on above: PATIENT WAS FASTINGP ERFORMED BY: HERI Winn Vhmxon4477 [facility] [id number] Information: [id number] RBC (Bld) [#/Vol] 4.24 10*6/uL Normal 3.77-5.28 [facility]; [facility] Work Phone: Comment on above: PATIENT WAS FASTINGP ERFORMED BY: HERI Teresalin6370 [facility] [id number] Information: [id number] WBC (Bld) [#/Vol] 4.7 {x10E3/uL} Normal 3.4-10.8 [facility] Work Phone: Comment on above: PATIENT WAS FASTINGP ERFORMED BY: HERI [facility]aS[facility] Zmsklp8186 [facility] [id number] Information: [id number] WBC (Bld) [#/Vol] 4.7 10*3/uL Normal 3.4-10.8 [facility] Internal Medicine; [facility] Work Phone: Comment on above: PATIENT WAS FASTINGP ERFORMED BY: [facility]aSain[facility] Vvoiau2219 [facility] [id number] Information: [id number] LIPID PANEL (22860)Ordered B y: Engine Specialist on 10-08-2013 Cholesterol [Mass/Vol] 204 mg/dL Abnormal 100-199 [facility] Work Phone: Comment on above: PATIENT WAS FASTINGP ERFORMED BY: HERI VilledaSainte Genev[facility] Tfbmex6207 [facility] [id number] Cholesterol in HDL [Mass/Vol] 54 mg/dL Normal [facility] Work Phone: Comment on above: According to ATP-III Guidelines, HDL-C >59 mg/dL is considered anegative risk factor for CHD. PATIENT WAS FASTINGP ERFORMED BY: HERI [facility] Sribvl1290 [address]ingo RoadDublin [place] [id number] Cholesterol in LDL [Mass/Vol] 131 mg/dL Abnormal 0-99 [facility] Work Phone: Comment on above: PATIENT WAS FASTINGP ERFORMED BY: CB [facility] Mbvrol3690 [address] RoadDublin [place] [id number] Cholesterol in LDL/Cholesterol in HDL [Mass ratio] 2.4 {ratio_units} Normal 0.0-3.2 [facility] Work Phone: Comment on above: PATIENT WAS FASTINGP ERFORMED BY: HERI [facility] Fponwz3846 Domingo RoadDublin [place] [id number] Cholesterol in VLDL [Mass/Vol] 19 mg/dL Normal 5-40 [facility] Work Phone: Comment on above: PATIENT WAS FASTINGP ERFORMED BY: HERI [facility] Pzjxkk6644 [address] RoadDublin [place] [id number] Triglyceride [Mass/Vol] 94 mg/dL Normal 0-149 [facility] Work Phone: Comment on above: PATIENT WAS FASTINGP ERFORMED BY: HERI [facility] Xwrlsc2271 [address] RoadDublin [place] [id number] METABOLIC PANEL, COMPREHENSI VE (70209)Ordered By: Engine Specialist on 10-08-2013 Albumin [Mass/Vol] 4.3 g/dL Normal 3.5-5.5 [facility] Internal Medicine Work Phone: Comment on above: PATIENT WAS FASTINGP ERFORMED BY: CB [facility] Ruqmui0808 [address]ingo RoadDublin [place] [id number] Albumin/Globulin [Mass ratio] 1.7 {ratio} Normal 1.1-2.5 [facility] Work Phone: Comment on above: PATIENT WAS FASTINGP ERFORMED BY: CB [facility] Vpdlsf2836 [address] RoadDublin [place] [id number] ALP [Catalytic activity/Vol] 41 [iU]/L Normal 39-117 [facility] Work Phone: Comment on above: PATIENT WAS FASTINGP ERFORMED BY: [facility] Avynlj3926 [address]ingo RoadDublin [place] [id number] ALP [Catalytic activity/Vol] 41 U/L Normal 39-117 [facility]; [facility] Work Phone: Comment on above: PATIENT WAS FASTINGP ERFORMED BY: [facility] Pnjhqr5819 [address]ingo RoadDublin [place] [id number] ALT [Catalytic activity/Vol] 13 [iU]/L Normal 0-32 [facility] Work Phone: Comment on above: PATIENT WAS FASTINGP ERFORMED BY: [facility] Ehousy5700 [address] RoadDublin [place] [id number] ALT [Catalytic activity/Vol] 13 U/L Normal 0-32 [facility]; [facility] Work Phone: Comment on above: PATIENT WAS FASTINGP ERFORMED BY: [facility] Hfbqoc1931 [address] RoadDublin [place] [id number] AST [Catalytic activity/Vol] 14 [iU]/L Normal 0-40 [facility] Work Phone: Comment on above: PATIENT WAS FASTINGP ERFORMED BY: [facility] Plcmvi2792 [address] RoadDublin [place] [id number] AST [Catalytic activity/Vol] 14 U/L Normal 0-40 [facility]; [facility] Work Phone: Comment on above: PATIENT WAS FASTINGP ERFORMED BY: [facility] Lddaec3106 [address] RoadDublin [place] [id number] Bilirubin [Mass/Vol] 0.4 mg/dL Normal 0.0-1.2 [facility] Work Phone: Comment on above: PATIENT WAS FASTINGP ERFORMED BY: [facility] Xalryo4323 [address] RoadDublin [place] [id number] Calcium [Mass/Vol] 9.5 mg/dL Normal 8.7-10.2 [facility] Internal Medicine Work Phone: Comment on above: PATIENT WAS FASTINGP ERFORMED BY: CB [facility] Awifse3435 [address] RoadDublin [place] [id number] Chloride [Moles/Vol] 103 mmol/L Normal 97-108 [facility] Work Phone: Comment on above: PATIENT WAS FASTINGP ERFORMED BY: CB [facility] Imuahe5692 [address] RoadDublin [place] [id number] CO2 [Moles/Vol] 23 mmol/L Normal 19-28 [facility] Internal Medicine Work Phone: Comment on above: PATIENT WAS FASTINGP ERFORMED BY: CB [facility] Evjbgb9172 [address] RoadDublin [place] [id number] Creatinine [Mass/Vol] 0.85 mg/dL Normal 0.57-1.00 [facility] Internal Medicine Work Phone: Comment on above: PATIENT WAS FASTINGP ERFORMED BY: CB [facility] Jwiyff0073 [address] RoadDublin [place] [id number] GFR/1.73 sq M predicted among blacks CKD-EPI (S/P/Bld) [Vol rate/Area] 97 mL/min/1.73 Normal [facility] Work Phone: Comment on above: PATIENT WAS FASTINGP ERFORMED BY: CB [facility] Zlxmde9677 [address] RoadDublin [place] [id number] GFR/1.73 sq M predicted among non-blacks CKD-EPI (S/P/Bld) [Vol rate/Area] 84 mL/min/1.73 Normal [facility] Work Phone: Comment on above: PATIENT WAS FASTINGP ERFORMED BY: CB [facility] Lchkau5243 [address]Dublin [place] [id number] Globulin (S) [Mass/Vol] 2.6 g/dL Normal 1.5-4.5 [facility] Work Phone: Comment on above: PATIENT WAS FASTINGP ERFORMED BY: CB [facility] Pmuktq6728 [address] RoadDublin [place] [id number] Glucose [Mass/Vol] 80 mg/dL Normal 65-99 [facility] Internal Medicine Work Phone: Comment on above: PATIENT WAS FASTINGP ERFORMED BY: HERI [facility] Qvksjk3097 [address] RoadDublin [place] [id number] Potassium [Moles/Vol] 4.1 mmol/L Normal 3.5-5.2 [facility] Internal Medicine Work Phone: Comment on above: PATIENT WAS FASTINGP ERFORMED BY: HERI [facility] Vmbtkb6278 [address] RoadDublin [place] [id number] Protein [Mass/Vol] 6.9 g/dL Normal 6.0-8.5 [facility] Internal Medicine Work Phone: Comment on above: PATIENT WAS FASTINGP ERFORMED BY: HERI [facility] Bbyiwy8209 [address] RoadDublin [place] [id number] Sodium [Moles/Vol] 140 mmol/L Normal 134-144 [facility] Internal Medicine Work Phone: Comment on above: PATIENT WAS FASTINGP ERFORMED BY: HERI [facility] Ncrpwu0520 [address]Dublin [place] [id number] Urea nitrogen [Mass/Vol] 14 mg/dL Normal 6-24 [facility] Internal Medicine Work Phone: Comment on above: PATIENT WAS FASTINGP ERFORMED BY: HERI [facility] Scjons3746 [address] RoadDublin [place] [id number] Urea nitrogen/Creatinine [Mass ratio] 16 mg/mg Normal 9-23 [facility] Internal Medicine Work Phone: Comment on above: PATIENT WAS FASTINGP ERFORMED BY: HERI [facility] Puwjve5985 [address] RoadDublin [place] [id number] MICROALBUMINOrdered By: Syst em Preflight Inspector on 10-08-2013 Albumin DL <= 20 mg/L (U) [Mass/Vol] 3.2 ug/mL Normal 0.0-17.0 [facility] Internal Medicine Work Phone: Comment on above: PATIENT WAS FASTINGP ERFORMED BY: HERI [facility] Tcgeyn4568 [address] RoadDublin [place] [id number] Albumin/Creatinine (U) [Mass ratio] 2.3 {mg/g_creat} Normal 0.0-30.0 [facility] Work Phone: Comment on above: PATIENT WAS FASTINGP ERFORMED BY: HERI LabElena TeresaTqoumg4627 [address] RoadDublin [place] [id number] Creatinine (U) [Mass/Vol] 137.4 mg/dL Normal 15.0-278.0 [facility] Work Phone: Comment on above: PATIENT WAS FASTINGP ERFORMED BY: HERI [facility] Rwqnea2790 [address]Dublin [place] [id number] URINALYSIS, W/ MICRO ([id number]) Ordered By: Engine Specialist on 10-08-2013 Appearance (U) Clear Normal Comprehens gian Internal Medicine Work Phone: Comment on above: PATIENT WAS FASTINGP ERFORMED BY: HERI Teresalin6[address]Dublin [place] [id number] Bilirubin Ql (U) Negative Normal Comprehe nsive Internal Medicine Work Phone: Comment on above: PATIENT WAS FASTINGP ERFORMED BY: HERI LabManas Qhwbhn8892 [address] RoadDublin [place] [id number] Bilirubin Ql (U) Negative Normal Comprehe nsive Internal Medicine; [facility] Work Phone: Comment on above: PATIENT WAS FASTINGP ERFORMED BY: HERI Teresalin6370 [address]Dublin [place] [id number] Color (U) Yellow Normal [facility] Work Phone: Comment on above: PATIENT WAS FASTINGP ERFORMED BY: HERI LabManas Abwjzr5352 [address] RoadDublin [place] [id number] Glucose Ql (U) Negative Normal Comprehens gian Internal Medicine Work Phone: Comment on above: PATIENT WAS FASTINGP ERFORMED BY: HERI [facility] Nnmvpf9245 [address]Dublin [place] [id number] Glucose Ql (U) Negative Normal Comprehens gian [facility]; [facility] Work Phone: Comment on above: PATIENT WAS FASTINGP ERFORMED BY: HERI LabCoever TeresaYwyurg0687 [address] RoadDublin [place] [id number] Hemoglobin Ql (U) Negative Normal Compreh ensive Internal Medicine Work Phone: Comment on above: PATIENT WAS FASTINGP ERFORMED BY: HERI [facility] Ieiebi1115 [address] RoadDublin [place] [id number] Hemoglobin Ql (U) Negative Normal Compreh ensive Internal Medicine; [facility] Work Phone: Comment on above: PATIENT WAS FASTINGP ERFORMED BY: HERI [facility] Ntqotu5893 [address]Dublin [place] [id number] Ketones Ql (U) Negative Normal Comprehens gian Internal Medicine Work Phone: Comment on above: PATIENT WAS FASTINGP ERFORMED BY: HERI Teresalin6370 [address]Dublin [place] [id number] Ketones Ql (U) Negative Normal Comprehens gian [facility]; [facility] Work Phone: Comment on above: PATIENT WAS FASTINGP ERFORMED BY: HERI VilledaFlever TeresaThykgl0386 [address] RoadDublin [place] [id number] Leukocyte esterase Test strip Ql (U) Negative Normal [facility] Work Phone: Comment on above: PATIENT WAS FASTINGP ERFORMED BY: HERI Teresalin6370 [address]Dublin [place] [id number] Leukocyte esterase Test strip Ql (U) Negative Normal [facility]; [facility] Work Phone: Comment on above: PATIENT WAS FASTINGP ERFORMED BY: HERI [facility] Dmzdfg2936 [address] RoadDublin [place] [id number] Microscopic observation LM Nom (Urine sed) MICRON Normal [facility] Work Phone: Comment on above: Microscopic follows if indicated. PATIENT WAS FASTINGP ERFORMED BY: HERI [facility] Jmqwwk6541 [address] RoadDublin [place] [id number] Microscopic observation LM Nom (Urine sed) See below: Normal [facility] Work Phone: Comment on above: PATIENT WAS FASTINGP ERFORMED BY: HERI [facility] Lhytsx6717 [address] RoadDuin [place] [id number] Nitrite Ql (U) Negative Normal Comprehens gian [facility] Medicine Work Phone: Comment on above: PATIENT WAS FASTINGP ERFORMED BY: HERI Dino Fairbanks6[address]Dublin [place] [id number] Nitrite Ql (U) Negative Normal Comprehens gian [facility]; [facility] Work Phone: Comment on above: PATIENT WAS FASTINGP ERFORMED BY: HERI ChristianaSain[facility] Cdqspp8444 [address] RoadCentral Harnett Hospitalin [place] [id number] pH (U) 6.0 [pH] Normal 5.0-7.5 [facility] Work Phone: Comment on above: PATIENT WAS FASTINGP ERFORMED BY: [facility]aS[facility] Ueeouz[address] [facility] [id number] Protein Ql (U) Negative Normal Comprehens gian Internal Medicine Work Phone: Comment on above: PATIENT WAS FASTINGP ERFORMED BY: [facility] Lwyjea[address] [facility] [id number] Protein Ql (U) Negative Normal Comprehens gian [facility]; [facility] Work Phone: Comment on above: PATIENT WAS FASTINGP ERFORMED BY: HERI ChristianaS[facility] Nvmdbf8578 [facility] [id number] Specific gravity (U) [Rel density] 1.018 1 Normal 1.005-1.030 [facility] Work Phone: Comment on above: PATIENT WAS FASTINGP ERFORMED BY: [facility] Ddmwtw4837 [address] RoadCentral Harnett Hospitalin [place] [id number] Urobilinogen (U) [Mass/Vol] 0.2 mg/dL Normal 0.0-1.9 [facility]; [facility] Work Phone: Comment on above: PATIENT WAS FASTINGP ERFORMED BY: [facility]6[address]St[facility] [id number] Urobilinogen Test strip (U) [Mass/Vol] 0.2 mg/dL Normal 0.0-1.9 Comprehensi ve Internal Medicine Work Phone: Comment on above: PATIENT WAS FASTINGP ERFORMED BY: HERI Tatum Vvvcka8827 [facility] [id number] URIC ACID BLOOD ([id number])Order ed By: Engine Specialist on 07-02-2013 Urate [Mass/Vol] 4.0 mg/dL Normal 2.5-7.1 Comprehe nsive Internal Medicine Work Phone: Comment on above: Therapeutic target f or gout patients: <6.0 PATIENT NOT FASTINGP ERFORMED BY: HERI ChristianaLisa [place] 7683270 [facility] [id number] Information: [id number] CBC WITH MANUAL DIFF (08604) Ordered By: Engine Specialist on 10-08-2012 Basophils (Bld) [#/Vol] 0.0 {x10E3/uL} Normal 0.0-0.2 [facility] Work Phone: Comment on above: PATIENT NOT FASTINGP ERFORMED BY: HERI [facility]aMackinac [facility]6370 [facility] [id number] Information: [id number] Basophils (Bld) [#/Vol] 0.0 10*3/uL Normal 0.0-0.2 [facility]; [facility] Work Phone: Comment on above: PATIENT NOT FASTINGP ERFORMED BY: HERI [facility]aMackinac Stra[facility] Hospital6370 [facility] [id number] Information: [id number],[id number] Basophils/100 WBC (Bld) 1 % Normal 0-3 [facility] Work Phone: Comment on above: PATIENT NOT FASTINGP ERFORMED BY: ChristianaLisa [place] 7683270 [facility] [id number] Information: 312559,R93046 Eosinophils (Bld) [#/Vol] 0.2 {x10E3/uL} Normal 0.0-0.4 [facility] Work Phone: Comment on above: PATIENT NOT FASTINGP ERFORMED BY: [place] 9638070 [facility] [id number] Information: 146673,S21142 Eosinophils (Bld) [#/Vol] 0.2 10*3/uL Normal 0.0-0.4 [facility]; [facility] Work Phone: Comment on above: PATIENT NOT FASTINGP ERFORMED BY: [address] [id number] Information: 155889,[id number] Eosinophils/100 WBC (Bld) 4 % Normal 0-7 [facility] Work Phone: Comment on above: PATIENT NOT FASTINGP ERFORMED BY: [address] [id number] Information: 271000,I15008 Erythrocyte distribution width (RBC) [Ratio] 13.0 % Normal 12.3-15.4 [facility] Work Phone: Comment on above: PATIENT NOT FASTINGP ERFORMED BY: [address] [id number] Information: 153872,G92783 Hematocrit (Bld) [Volume fraction] 40.5 % Normal 34.0-46.6 [facility] Work Phone: Comment on above: PATIENT NOT FASTINGP ERFORMED BY: [address] [id number] Information: 744066,[id number] Hemoglobin (Bld) [Mass/Vol] 13.6 g/dL Normal 11.1-15.9 [facility] Work Phone: Comment on above: PATIENT NOT FASTINGP ERFORMED BY: [address] [id number] Information: 072413,S06502 Immature granulocytes (Bld) [#/Vol] 0.0 {x10E3/uL} Normal 0.0-0.1 [facility] Work Phone: Comment on above: PATIENT NOT FASTINGP ERFORMED BY: HERI [place]banks6370 [facility] [id number] Information: 123326,Q64475 Immature granulocytes (Bld) [#/Vol] 0.0 10*3/uL Normal 0.0-0.1 [facility]; [facility] Work Phone: Comment on above: PATIENT NOT FASTINGP ERFORMED BY: HERI Teresalin6370 [facility] [id number] Information: 173118,Z21901 Immature granulocytes/100 WBC (Bld) 0 % Normal 0-2 [facility] Work Phone: Comment on above: PATIENT NOT FASTINGP ERFORMED BY: HERI [place]banks6370 [facility] [id number] Information: [id number],[id number] Lymphocytes (Bld) [#/Vol] 1.3 {x10E3/uL} Normal 0.7-4.5 [facility] Work Phone: Comment on above: PATIENT NOT FASTINGP ERFORMED BY: HERI Teresa[address] [id number] Information: 394306,G74042 Lymphocytes (Bld) [#/Vol] 1.3 10*3/uL Normal 0.7-4.5 [facility]; [facility] Work Phone: Comment on above: PATIENT NOT FASTINGP ERFORMED BY: HERI Teresalin6370 [facility] [id number] Information: 245646,A79195 Lymphocytes/100 WBC (Bld) 26 % Normal 14-46 [facility] Work Phone: Comment on above: PATIENT NOT FASTINGP ERFORMED BY: HERI Teresalin6370 [facility] [id number] Information: 096217,[id number] MCH (RBC) [Entitic mass] 30.8 pg Normal 26.6-33.0 [facility] Work Phone: Comment on above: PATIENT NOT FASTINGP ERFORMED BY: HERI Teresalin6370 [facility] [id number] Information: 204010,[id number] MCHC (RBC) [Mass/Vol] 33.6 g/dL Normal 31.5-35.7 [facility] Internal Medicine Work Phone: Comment on above: PATIENT NOT FASTINGP ERFORMED BY: HERI Winn Hycpve6296 [facility] [id number] Information: 217249,R48639 MCV (RBC) [Entitic vol] 92 fL Normal 79-97 [facility] Work Phone: Comment on above: PATIENT NOT FASTINGP ERFORMED BY: HERI Teresalin6370 [facility] [id number] Information: 772105,[id number] Monocytes (Bld) [#/Vol] 0.3 {x10E3/uL} Normal 0.1-1.0 [facility] Internal Medicine Work Phone: Comment on above: PATIENT NOT FASTINGP ERFORMED BY: HERI Teresalin6370 [facility] [id number] Information: [id number],[id number] Monocytes (Bld) [#/Vol] 0.3 10*3/uL Normal 0.1-1.0 [facility]; [facility] Work Phone: Comment on above: PATIENT NOT FASTINGP ERFORMED BY: HERI Winn Lxzisn5660 [facility] [id number] Information: [id number],[id number] Monocytes/100 WBC (Bld) 7 % Normal 4-13 [facility] Work Phone: Comment on above: PATIENT NOT FASTINGP ERFORMED BY: HERI Treesalin6370 [facility] [id number] Information: 614985,C20693 Neutrophils (Bld) [#/Vol] 3.2 {x10E3/uL} Normal 1.8-7.8 [facility] Work Phone: Comment on above: PATIENT NOT FASTINGP ERFORMED BY: HERI LabCoever FairbanksFcwong[address] [facility] [id number] Information: 512769,K41463 Neutrophils (Bld) [#/Vol] 3.2 10*3/uL Normal 1.8-7.8 [facility]; [facility] Internal Medicine Work Phone: Comment on above: PATIENT NOT FASTINGP ERFORMED BY: CB [facility] Lkybhi[address] [facility] [id number] Information: 934407,W88942 Neutrophils/100 WBC (Bld) 62 % Normal 40-74 [facility] Internal Medicine Work Phone: Comment on above: PATIENT NOT FASTINGP ERFORMED BY: HERI VilledaCoever FairbanksJzhhus[address] [facility] [id number] Information: 207450,Q17514 Platelets (Bld) [#/Vol] 275 {x10E3/uL} Normal 140-415 [facility] Internal Medicine Work Phone: Comment on above: PATIENT NOT FASTINGP ERFORMED BY: CB [facility] Pkratv[address] [facility] [id number] Information: 840985,T14542 Platelets (Bld) [#/Vol] 275 10*3/uL Normal 140-415 [facility]; [facility] Internal Medicine Work Phone: Comment on above: PATIENT NOT FASTINGP ERFORMED BY: CB [facility] Kiqtox[address] [facility] [id number] Information: 517394,[id number] RBC (Bld) [#/Vol] 4.41 {x10E6/uL} Normal 3.77-5.28 [facility] Internal Medicine Work Phone: Comment on above: PATIENT NOT FASTINGP ERFORMED BY: CB [facility] Slwvyl[address] [facility] [id number] Information: [id number] RBC (Bld) [#/Vol] 4.41 10*6/uL Normal 3.77-5.28 [facility] Internal Medicine; [facility] Work Phone: Comment on above: PATIENT NOT FASTINGP ERFORMED BY: HERI Fairbanks6[address]Dublin [place] [id number] Information: 017188,V59916 WBC (Bld) [#/Vol] 5.1 {x10E3/uL} Normal 4.0-10.5 [facility] Internal Medicine Work Phone: Comment on above: PATIENT NOT FASTINGP ERFORMED BY: HERI [facility] Rsxiam6493 [address] RoadDublin [place] [id number] Information: 248901,F35281 WBC (Bld) [#/Vol] 5.1 10*3/uL Normal 4.0-10.5 [facility] Internal Medicine; [facility] Internal Medicine Work Phone: Comment on above: PATIENT NOT FASTINGP ERFORMED BY: HERI Fairbanks6370 [address] Roadblin [place] [id number] Information: 150969,[id number] METABOLIC PANEL, COMPREHENSI VE (84401)Ordered By: Engine Specialist on 10-08-2012 Albumin [Mass/Vol] 4.1 g/dL Normal 3.5-5.5 [facility] Internal Medicine Work Phone: Comment on above: PATIENT NOT FASTINGP ERFORMED BY: HERI [facility] Rlrwxc6064 [address] RoadDublin [place] [id number] Albumin/Globulin [Mass ratio] 1.6 {ratio} Normal 1.1-2.5 [facility] Internal Medicine Work Phone: Comment on above: PATIENT NOT FASTINGP ERFORMED BY: HERI [facility] Nqwjhs4448 [address] RoadDublin [place] [id number] ALP [Catalytic activity/Vol] 38 [iU]/L Normal 25-150 [facility] Internal Medicine Work Phone: Comment on above: PATIENT NOT FASTINGP ERFORMED BY: HERI [facility] Ryvbul2067 [address] RoadDublin [place] [id number] ALP [Catalytic activity/Vol] 38 U/L Normal 25-150 [facility]; [facility] Work Phone: Comment on above: PATIENT NOT FASTINGP ERFORMED BY: HERI LabElena Fairbanks6[address]Dublin [place] [id number] ALT [Catalytic activity/Vol] 15 [iU]/L Normal 0-32 [facility] Work Phone: Comment on above: PATIENT NOT FASTINGP ERFORMED BY: CB LabElena TeresaEqgsok7855 [address] RoadDublin [place] [id number] ALT [Catalytic activity/Vol] 15 U/L Normal 0-32 [facility]; [facility] Work Phone: Comment on above: PATIENT NOT FASTINGP ERFORMED BY: HERI LabElena TeresaXwaiqg1855 [address] RoadDublin [place] [id number] AST [Catalytic activity/Vol] 18 [iU]/L Normal 0-40 [facility] Work Phone: Comment on above: PATIENT NOT FASTINGP ERFORMED BY: HERI Teresalin6370 [address]Dublin [place] [id number] AST [Catalytic activity/Vol] 18 U/L Normal 0-40 [facility]; [facility] Work Phone: Comment on above: PATIENT NOT FASTINGP ERFORMED BY: HERI Teresalin6[address]Dublin [place] [id number] Bilirubin [Mass/Vol] 0.3 mg/dL Normal 0.0-1.2 Comp [facility] Work Phone: Comment on above: PATIENT NOT FASTINGP ERFORMED BY: HERI [facility] Iayoxn9145 [address] RoadDublin [place] [id number] Calcium [Mass/Vol] 8.9 mg/dL Normal 8.7-10.2 [facility] Internal Medicine Work Phone: Comment on above: PATIENT NOT FASTINGP ERFORMED BY: HERI [facility] Qlsqzd8587 [address] RoadDublin [place] [id number] Chloride [Moles/Vol] 104 mmol/L Normal 97-108 [facility] Work Phone: Comment on above: PATIENT NOT FASTINGP ERFORMED BY: CB [facility] Dmxici4976 [address] RoadDublin [place] [id number] CO2 [Moles/Vol] 22 mmol/L Normal 20-32 [facility] Internal Medicine Work Phone: Comment on above: PATIENT NOT FASTINGP ERFORMED BY: CB [facility] Kklgna5644 [address]Dublin [place] [id number] Creatinine [Mass/Vol] 0.88 mg/dL Normal 0.57-1.00 [facility] Work Phone: Comment on above: PATIENT NOT FASTINGP ERFORMED BY: CB [facility] Qkrgtp7468 [address] RoadDublin [place] [id number] GFR/1.73 sq M predicted among blacks CKD-EPI (S/P/Bld) [Vol rate/Area] 94 mL/min/1.73 Normal [facility] Work Phone: Comment on above: PATIENT NOT FASTINGP ERFORMED BY: CB [facility] Hqdwgi4509 [address] RoadDublin [place] [id number] GFR/1.73 sq M predicted among non-blacks CKD-EPI (S/P/Bld) [Vol rate/Area] 81 mL/min/1.73 Normal [facility] Work Phone: Comment on above: PATIENT NOT FASTINGP ERFORMED BY: CB [facility] Mrdomv2483 [address] RoadDublin [place] [id number] Globulin (S) [Mass/Vol] 2.6 g/dL Normal 1.5-4.5 [facility] Internal Medicine Work Phone: Comment on above: PATIENT NOT FASTINGP ERFORMED BY: CB [facility] Yxjffw4570 [address] RoadDublin [place] [id number] Glucose [Mass/Vol] 97 mg/dL Normal 65-99 [facility] Internal Medicine Work Phone: Comment on above: PATIENT NOT FASTINGP ERFORMED BY: CB [facility] Ziuoqt7831 [address] RoadDublin [place] [id number] Potassium [Moles/Vol] 4.1 mmol/L Normal 3.5-5.2 [facility] Internal Medicine Work Phone: Comment on above: PATIENT NOT FASTINGP ERFORMED BY: HERI [facility] Mpvfsj1200 [address] RoadDublin [place] [id number] Protein [Mass/Vol] 6.7 g/dL Normal 6.0-8.5 [facility] Internal Medicine Work Phone: Comment on above: PATIENT NOT FASTINGP ERFORMED BY: CB [facility] Rvtvov7592 [address] RoadDublin [place] [id number] Sodium [Moles/Vol] 139 mmol/L Normal 134-144 [facility] Internal Medicine Work Phone: Comment on above: PATIENT NOT FASTINGP ERFORMED BY: CB [facility] Casail4580 [address] RoadDuin [place] [id number] Urea nitrogen [Mass/Vol] 12 mg/dL Normal 6-24 [facility] Internal Medicine Work Phone: Comment on above: PATIENT NOT FASTINGP ERFORMED BY: CB [facility] Dhedqx0875 [address] RoadCentral Harnett Hospitalin [place] [id number] Urea nitrogen/Creatinine [Mass ratio] 14 mg/mg Normal 9-23 [facility] Internal Medicine Work Phone: Comment on above: PATIENT NOT FASTINGP ERFORMED BY: HERI [facility] Ocwmod8042 [address] Roadblin [place] [id number] Sed Rate Erythrocyte (54730) Ordered By: Engine Specialist on 10-08-2012 ESR (Bld) [Velocity] 2 mm/h Normal 0-32 [facility] Internal Medicine Work Phone: Comment on above: PATIENT NOT FASTINGP ERFORMED BY: HERI [facility] Pqteau[address] Dom[address] Roadblin [place] [id number] Information: [id number],2ND ORDER NO DRAW F EE TSH (04473)Ordered By: Reginaldo m Preflight Inspector on 10-08-2012 TSH Qn 0.504 {uIU/mL} Normal 0.450-4.500 [facility] Internal Medicine Work Phone: Comment on above: PATIENT NOT FASTINGP ERFORMED BY: HERI [facility] Uoikry8909 [facility] [id number] URINE LANDRY CULTURE (LUZMA COL COUNT) (11316)Ordered By: Engine Specialist on 10-08-2012 Bacteria identified Cx Nom (U) MUG Normal [facility] Work Phone: Comment on above: Mixed urogenital karo ra10,000-25,000 colony forming units per mL PATIENT NOT FASTINGP ERFORMED BY: [facility] Pdmzcz5160 [facility] [id number] Information: SRC:UR [id number] Bacteria identified Cx Nom (U) Final report Normal [facility] Work Phone: Comment on above: PATIENT NOT FASTINGP ERFORMED BY: CB [facility] Izxglg2020 [facility] [id number] Information: SRC:UR W80449 Urinalysis, Office (97271)Or dered By: Idania Sheridan on 10-08-2012 Bilirubin Ql (U) Negative Normal Comprehe nsive Internal Medicine Work Phone: Bilirubin Ql (U) Negative Normal Comprehe nsive Internal Medicine; [facility] Work Phone: Glucose Test strip (U) [Mass/Vol] Negative Normal [facility] Work Phone: Glucose Test strip (U) [Mass/Vol] Negative Normal [facility]; [facility] Work Phone: Hemoglobin Ql (U) Negative Normal Compreh ensive Internal Medicine Work Phone: Hemoglobin Ql (U) Negative Normal Compreh ensive Internal Medicine; [facility] Work Phone: Ketones Ql (U) Small Normal Comprehens gian Internal Medicine Work Phone: Leukocyte esterase Test strip Ql (U) Trace Normal [facility] Work Phone: Nitrite Ql (U) Negative Normal Comprehens gian Internal Medicine Work Phone: Nitrite Ql (U) Negative Normal Comprehens gian Internal Medicine; [facility] Work Phone: pH (U) 8.5 [pH] Normal [facility] Work Phone: Protein Ql (U) 30 mg/dL Normal Comprehens gian Internal Medicine Work Phone: Specific gravity (U) [Rel density] 1.010 1 Normal [facility] Work Phone: Urobilinogen (24H U) [Mass/Time] Normal Normal [facility] Work Phone: POTASSIUM SERUM (83034)Order ed By: Engine Specialist on 03-23-2012 Potassium [Moles/Vol] 3.9 mmol/L Normal 3.5-5.2 [facility] prehensive Internal Medicine Work Phone: Comment on above: PATIENT NOT FASTINGP ERFORMED BY: HERI [facility] Mnfbhj5104 [address] [facility] [id number] Information: [id number],Q97899 Metabolic Panel, Basic (2700 8)Ordered By: Engine Specialist on 03-16-2012 Calcium [Mass/Vol] 9.5 mg/dL Normal 8.7-10.2 [facility] Work Phone: Comment on above: PATIENT NOT FASTINGP ERFORMED BY: HERI [facility] Hnokwe2450 [facility] [id number] Information: DRAW FEE 332749 ADD F86526 Chloride [Moles/Vol] 100 mmol/L Normal 97-108 Comp rehensive Internal Medicine Work Phone: Comment on above: PATIENT NOT FASTINGP ERFORMED BY: HERI [facility] Eznemr2034 [address] [facility] [id number] Information: DRAW FEE 775473 ADD V36388 CO2 [Moles/Vol] 23 mmol/L Normal 20-32 Comprehen sive Internal Medicine Work Phone: Comment on above: PATIENT NOT FASTINGP ERFORMED BY: HERI [facility] Skvydh8370 [address] [facility] [id number] Information: DRAW FEE 177336 ADD M76210 Creatinine [Mass/Vol] 0.87 mg/dL Normal 0.57-1.00 [facility] prehensive Internal Medicine Work Phone: Comment on above: PATIENT NOT FASTINGP ERFORMED BY: LabCoAstra Health CenterOejniq4884 [facility] [id number] Information: DRAW FEE 283191 ADD Z39049 GFR/1.73 sq M predicted among blacks CKD-EPI (S/P/Bld) [Vol rate/Area] 95 mL/min/1.73 Normal [facility] Work Phone: Comment on above: PATIENT NOT FASTINGP ERFORMED BY: LabCoStephen Ville 0421270 [facility] [id number] Information: DRAW FEE 316323 ADD S18779 GFR/1.73 sq M predicted among non-blacks CKD-EPI (S/P/Bld) [Vol rate/Area] 82 mL/min/1.73 Normal [facility] Work Phone: Comment on above: PATIENT NOT FASTINGP ERFORMED BY: [address] [id number] Information: DRAW FEE 474708 ADD I89497 Glucose [Mass/Vol] 96 mg/dL Normal 65-99 [facility] Internal Medicine Work Phone: Comment on above: PATIENT NOT FASTINGP ERFORMED BY: LabLisa Ville 7683270 [facility] [id number] Information: DRAW FEE 106065 ADD I53624 Potassium [Moles/Vol] 3.3 mmol/L Abnormal 3.5-5.2 [facility] Internal Medicine Work Phone: Comment on above: Client Requested Fla g PATIENT NOT FASTINGP ERFORMED BY: LabLisa Ville 7683270 [facility] [id number] Information: DRAW FEE 451843 ADD F99746 Sodium [Moles/Vol] 140 mmol/L Normal 134-144 [facility] Internal Medicine Work Phone: Comment on above: PATIENT NOT FASTINGP ERFORMED BY: LabCoStephen [place] 0421270 [facility] [id number] Information: DRAW FEE 476282 ADD Z40501 Urea nitrogen [Mass/Vol] 13 mg/dL Normal 6-24 [facility] Work Phone: Comment on above: PATIENT NOT FASTINGP ERFORMED BY: HERI [place]6370 [facility] [id number] Information: DRAW FEE 239874 ADD Q26856 Urea nitrogen/Creatinine [Mass ratio] 15 mg/mg Normal 9-23 [facility] Work Phone: Comment on above: PATIENT NOT FASTINGP ERFORMED BY: HERI [facility] Czdwfb5175 [facility] [id number] Information: DRAW FEE 218066 ADD [id number] CBC WITH MANUAL DIFF (68583) Ordered By: Engine Specialist on 04-15-2011 Basophils (Bld) [#/Vol] 0.0 {x10E3/uL} Normal 0.0-0.2 [facility] Work Phone: Comment on above: PATIENT NOT FASTINGP ERFORMED BY: HERI Winn Dmhgel4625 [facility] [id number] Information: 805645,T66967 Basophils (Bld) [#/Vol] 0.0 10*3/uL Normal 0.0-0.2 [facility]; [facility] Work Phone: Comment on above: PATIENT NOT FASTINGP ERFORMED BY: HERI VilledaCo Crzdlm8030 [facility] [id number] Information: 476730,K79846 Basophils/100 WBC (Bld) 1 % Normal 0-3 [facility] Work Phone: Comment on above: PATIENT NOT FASTINGP ERFORMED BY: HERI [facility] Qztckv6578 [facility] [id number] Information: 616366,P15759 Eosinophils (Bld) [#/Vol] 0.1 {x10E3/uL} Normal 0.0-0.4 [facility] Work Phone: Comment on above: PATIENT NOT FASTINGP ERFORMED BY: HERI [facility] Nqyfpf4821 [facility] [id number] Information: 666530,G01936 Eosinophils (Bld) [#/Vol] 0.1 10*3/uL Normal 0.0-0.4 [facility]; [facility] Work Phone: Comment on above: PATIENT NOT FASTINGP ERFORMED BY: HERI [facility] Nhbksy9584 [address] [facility] [place] [id number] Information: 210820,X97806 Eosinophils/100 WBC (Bld) 2 % Normal 0-7 [facility] Work Phone: Comment on above: PATIENT NOT FASTINGP ERFORMED BY: CB [facility] Ihtcxr9232 [address] [facility] [id number] Information: 783800,L00852 Erythrocyte distribution width (RBC) [Ratio] 12.9 % Normal 11.7-15.0 [facility] Work Phone: Comment on above: PATIENT NOT FASTINGP ERFORMED BY: [facility] Thhukd9620 [address] [facility] [id number] Information: 610025,T93519 Hematocrit (Bld) [Volume fraction] 40.2 % Normal 34.0-44.0 [facility] Work Phone: Comment on above: PATIENT NOT FASTINGP ERFORMED BY: Lab[facility] Fthvjc1194 [address] [facility] [id number] Information: 361976,L90419 Hemoglobin (Bld) [Mass/Vol] 13.5 g/dL Normal 11.5-15.0 [facility] Work Phone: Comment on above: PATIENT NOT FASTINGP ERFORMED BY: CB [facility] Nmfjam2314 [address] [facility] [id number] Information: 459681,J12174 Immature granulocytes (Bld) [#/Vol] 0.0 {x10E3/uL} Normal 0.0-0.1 [facility] Work Phone: Comment on above: PATIENT NOT FASTINGP ERFORMED BY: CB [facility] Bwzxnk5423 [address] [facility] [id number] Information: 582067,U27213 Immature granulocytes (Bld) [#/Vol] 0.0 10*3/uL Normal 0.0-0.1 [facility]; [facility] Work Phone: Comment on above: PATIENT NOT FASTINGP ERFORMED BY: HERI Teresalin6370 [facility] [id number] Information: 088358,O06140 Immature granulocytes/100 WBC (Bld) 0 % Normal 0-2 [facility] Work Phone: Comment on above: Please note refere nce interval change PATIENT NOT FASTINGP ERFORMED BY: HERI [address] [id number] Information: 618315,X37472 Lymphocytes (Bld) [#/Vol] 1.8 {x10E3/uL} Normal 0.7-4.5 [facility] Work Phone: Comment on above: PATIENT NOT FASTINGP ERFORMED BY: HERI WinnStephen [place] 0421270 [facility] [id number] Information: 283923,G86011 Lymphocytes (Bld) [#/Vol] 1.8 10*3/uL Normal 0.7-4.5 [facility]; [facility] Work Phone: Comment on above: PATIENT NOT FASTINGP ERFORMED BY: HERI WinnStephen [place] 0421270 [facility] [id number] Information: 569933,L03995 Lymphocytes/100 WBC (Bld) 29 % Normal 14-46 [facility] Work Phone: Comment on above: PATIENT NOT FASTINGP ERFORMED BY: HERI WinnStephen [place] 0421270 [facility] [id number] Information: 414934,M83907 MCH (RBC) [Entitic mass] 31.4 pg Normal 27.0-34.0 [facility] Work Phone: Comment on above: PATIENT NOT FASTINGP ERFORMED BY: CB [facility]in6370 [facility] [id number] Information: 751572,W44169 MCHC (RBC) [Mass/Vol] 33.6 g/dL Normal 32.0-36.0 [facility] Internal Medicine Work Phone: Comment on above: PATIENT NOT FASTINGP ERFORMED BY: HERI [address] [id number] Information: 521542,Z38637 MCV (RBC) [Entitic vol] 94 fL Normal 80-98 [facility] Internal Medicine Work Phone: Comment on above: PATIENT NOT FASTINGP ERFORMED BY: HERI [address] [id number] Information: 315502,F02491 Monocytes (Bld) [#/Vol] 0.5 {x10E3/uL} Normal 0.1-1.0 [facility] Internal Medicine Work Phone: Comment on above: PATIENT NOT FASTINGP ERFORMED BY: [facility]6370 [facility] [id number] Information: 465265,L17677 Monocytes (Bld) [#/Vol] 0.5 10*3/uL Normal 0.1-1.0 [facility]; [facility] Work Phone: Comment on above: PATIENT NOT FASTINGP ERFORMED BY: [place] 9638070 [facility] [id number] Information: 814507,U59050 Monocytes/100 WBC (Bld) 8 % Normal 4-13 [facility] Work Phone: Comment on above: PATIENT NOT FASTINGP ERFORMED BY: [place] 9638070 [facility] [id number] Information: 068429,H84461 Neutrophils (Bld) [#/Vol] 3.7 {x10E3/uL} Normal 1.8-7.8 [facility] Work Phone: Comment on above: PATIENT NOT FASTINGP ERFORMED BY: HERI [place]6370 [facility]Saint [facility] [id number] Information: 921373,F77007 Neutrophils (Bld) [#/Vol] 3.7 10*3/uL Normal 1.8-7.8 [facility]; [facility] Work Phone: Comment on above: PATIENT NOT FASTINGP ERFORMED BY: HERI [place]6[address] [facility] [id number] Information: 814236,A16078 Neutrophils/100 WBC (Bld) 60 % Normal 40-74 [facility] Work Phone: Comment on above: PATIENT NOT FASTINGP ERFORMED BY: HERI [place]6370 [facility] [id number] Information: 384758,I62993 Platelets (Bld) [#/Vol] 231 {x10E3/uL} Normal 140-415 [facility] Work Phone: Comment on above: PATIENT NOT FASTINGP ERFORMED BY: HERI [place]6370 [facility] [id number] Information: 405046,K10587 Platelets (Bld) [#/Vol] 231 10*3/uL Normal 140-415 [facility]; [facility] Work Phone: Comment on above: PATIENT NOT FASTINGP ERFORMED BY: HERI [place]6370 [facility] [id number] Information: 015910,O33987 RBC (Bld) [#/Vol] 4.30 {x10E6/uL} Normal 3.80-5.10 [facility] Internal Medicine Work Phone: Comment on above: PATIENT NOT FASTINGP ERFORMED BY: HERI [place]6370 [facility] [id number] Information: 214169,H37813 RBC (Bld) [#/Vol] 4.30 10*6/uL Normal 3.80-5.10 [facility] Internal Medicine; [facility] Work Phone: Comment on above: PATIENT NOT FASTINGP ERFORMED BY: CB [facility] Mhxkjz7794 Domingo RoadDublin [place] [id number] Information: 302272,J36280 WBC (Bld) [#/Vol] 6.1 {x10E3/uL} Normal 4.0-10.5 [facility] Internal Medicine Work Phone: Comment on above: PATIENT NOT FASTINGP ERFORMED BY: CB [facility] Mdzlio3360 [address] RoadDublin [place] [id number] Information: 975285,B74511 WBC (Bld) [#/Vol] 6.1 10*3/uL Normal 4.0-10.5 [facility] Internal Medicine; [facility] Work Phone: Comment on above: PATIENT NOT FASTINGP ERFORMED BY: CB [facility] Dzebii1942 [address] RoadCentral Harnett Hospitalin [place] [id number] Information: 602577,L19731 METABOLIC PANEL, COMPREHENSI VE (31990)Ordered By: Engine Specialist on 04-15-2011 Albumin [Mass/Vol] 4.5 g/dL Normal 3.5-5.5 [facility] Internal Medicine Work Phone: Comment on above: PATIENT NOT FASTINGP ERFORMED BY: CB [facility] Gncqvl8931 [address] [facility] [place] [id number] Albumin/Globulin [Mass ratio] 1.6 {ratio} Normal 1.1-2.5 [facility] Internal Medicine Work Phone: Comment on above: PATIENT NOT FASTINGP ERFORMED BY: CB [facility] Swkfpo4139 [address]ingo RoadDublin [place] [id number] ALP [Catalytic activity/Vol] 45 [iU]/L Normal 25-150 [facility] Internal Medicine Work Phone: Comment on above: PATIENT NOT FASTINGP ERFORMED BY: CB [facility] Ssucvr7332 [address] RoadDublin [place] [id number] ALP [Catalytic activity/Vol] 45 U/L Normal 25-150 [facility] Internal Medicine; [facility] Work Phone: Comment on above: PATIENT NOT FASTINGP ERFORMED BY: HERI LabElena Ijdprl9299 [address]ingo RoadDublin [place] [id number] ALT [Catalytic activity/Vol] 15 [iU]/L Normal 0-40 [facility] Work Phone: Comment on above: PATIENT NOT FASTINGP ERFORMED BY: HERI [facility] Legclk6594 [address] RoadDublin [place] [id number] ALT [Catalytic activity/Vol] 15 U/L Normal 0-40 [facility]; [facility] Work Phone: Comment on above: PATIENT NOT FASTINGP ERFORMED BY: HERI LabElena TeresaArquns8922 [address] RoadDublin [place] [id number] AST [Catalytic activity/Vol] 19 [iU]/L Normal 0-40 [facility] Work Phone: Comment on above: PATIENT NOT FASTINGP ERFORMED BY: HERI Teresalin6370 [address] RoadDublin [place] [id number] AST [Catalytic activity/Vol] 19 U/L Normal 0-40 [facility]; [facility] Work Phone: Comment on above: PATIENT NOT FASTINGP ERFORMED BY: HERI Teresalin6370 [address] RoadDublin [place] [id number] Bilirubin [Mass/Vol] 0.4 mg/dL Normal 0.0-1.2 Comp rehensive Internal Medicine Work Phone: Comment on above: PATIENT NOT FASTINGP ERFORMED BY: HERI LabManasrp Drxsga3288 [address]ingo RoadDublin [place] [id number] Calcium [Mass/Vol] 9.4 mg/dL Normal 8.7-10.2 [facility] Internal Medicine Work Phone: Comment on above: PATIENT NOT FASTINGP ERFORMED BY: HERI LabCoever Tlqzxl9115 [address] RoadDublin [place] [id number] Chloride [Moles/Vol] 101 mmol/L Normal 97-108 Comp rehensive Internal Medicine Work Phone: Comment on above: PATIENT NOT FASTINGP ERFORMED BY: HERI LabElena TeresaJuugzw7536 [address] [facility] [place] [id number] CO2 [Moles/Vol] 21 mmol/L Normal 20-32 Comprehen [facility] Internal Medicine Work Phone: Comment on above: PATIENT NOT FASTINGP ERFORMED BY: CB [facility] Jablfr4203 [address] [facility] [id number] Creatinine [Mass/Vol] 0.84 mg/dL Normal 0.57-1.00 [facility] Internal Medicine Work Phone: Comment on above: PATIENT NOT FASTINGP ERFORMED BY: CB [facility] Iikmpl2098 [address] [facility] [id number] GFR/1.73 sq M predicted among blacks MDRD (S/P/Bld) [Vol rate/Area] 100 mL/min/{1.73_m2} Normal [facility] Internal [facility] Work Phone: Comment on above: Note: A persistent e GFR <60 mL/min/1.73 m2 (3 months or more) mayindicate chronic kidney disease. An eGFR >59 mL/min/1.73 m2 with anelevated urine protein also may indicate chronic kidney disease.Calculated using CKD-EPI formula. PATIENT NOT FASTINGP ERFORMED BY: [facility] Mbvvts2244 [address] [facility] [id number] GFR/1.73 sq M predicted among non-blacks CKD-EPI (S/P/Bld) [Vol rate/Area] 87 mL/min/1.73 Normal [facility] Work Phone: Comment on above: PATIENT NOT FASTINGP ERFORMED BY: CB [facility] Asgkvv6663 [address] [facility] [id number] Globulin (S) [Mass/Vol] 2.8 g/dL Normal 1.5-4.5 [facility] Internal Medicine Work Phone: Comment on above: PATIENT NOT FASTINGP ERFORMED BY: CB [facility] Ovfspy9398 [address] [facility] [id number] Glucose [Mass/Vol] 80 mg/dL Normal 65-99 [facility] Internal Medicine Work Phone: Comment on above: PATIENT NOT FASTINGP ERFORMED BY: HERI LabElena TeresaUwaspq7812 [address] RoadDublin [place] [id number] Potassium [Moles/Vol] 3.6 mmol/L Normal 3.5-5.2 [facility] Internal Medicine Work Phone: Comment on above: PATIENT NOT FASTINGP ERFORMED BY: HERI Teresalin6370 [address]Dublin [place] [id number] Protein [Mass/Vol] 7.3 g/dL Normal 6.0-8.5 [facility] Internal Medicine Work Phone: Comment on above: PATIENT NOT FASTINGP ERFORMED BY: HERI LabElena TeresaWtpscn0353 [address] RoadDublin [place] [id number] Sodium [Moles/Vol] 137 mmol/L Normal 135-145 [facility] Internal Medicine Work Phone: Comment on above: PATIENT NOT FASTINGP ERFORMED BY: HERI Teresalin6370 [address]Dublin [place] [id number] Urea nitrogen [Mass/Vol] 14 mg/dL Normal 6-24 [facility] Internal Medicine Work Phone: Comment on above: PATIENT NOT FASTINGP ERFORMED BY: HERI LabElena TeresaUawisa2668 Dom[address] Roadblin [place] [id number] Urea nitrogen/Creatinine [Mass ratio] 17 mg/mg Normal 9-23 [facility] Internal Medicine Work Phone: Comment on above: PATIENT NOT FASTINGP ERFORMED BY: HERI [facility] Sbbkze8643 [address] RoadDublin [place] [id number] TSH (78486)Ordered By: Syste m Preflight Inspector on 04-15-2011 TSH Qn 0.938 {uIU/mL} Normal 0.450-4.500 Comprehen [facility] Internal Medicine Work Phone: Comment on above: PATIENT NOT FASTINGP ERFORMED BY: HERI [facility] Jjbxvc0605 [address] RoadDublin [place] [id number] URINALYSIS, W/ MICRO (73827) Ordered By: Engine Specialist on 04-15-2011 Appearance (U) Clear Normal Comprehens gian Internal Medicine Work Phone: Comment on above: PATIENT NOT FASTINGP ERFORMED BY: CB [facility] Gwzdgh5636 [address] RoadDublin [place] [id number] Bilirubin Ql (U) Negative Normal Comprehe nsive Internal Medicine Work Phone: Comment on above: PATIENT NOT FASTINGP ERFORMED BY: CB [facility] Malyef0447 [address] RoadDublin [place] [id number] Bilirubin Ql (U) Negative Normal Comprehe nsive Internal Medicine; [facility] Work Phone: Comment on above: PATIENT NOT FASTINGP ERFORMED BY: HERI [facility] Maowoj1132 [address] RoadDublin [place] [id number] Color (U) Yellow Normal [facility] Work Phone: Comment on above: PATIENT NOT FASTINGP ERFORMED BY: HERI [facility] Izmiyr5652 [address] RoadDublin [place] [id number] Glucose Ql (U) Negative Normal Comprehens gian Internal Medicine Work Phone: Comment on above: PATIENT NOT FASTINGP ERFORMED BY: HERI [facility] Vufbab1083 [address] RoadDublin [place] [id number] Glucose Ql (U) Negative Normal Comprehens gian Internal Medicine; [facility] Work Phone: Comment on above: PATIENT NOT FASTINGP ERFORMED BY: HERI [facility] Jayvuk3016 [address] RoadDublin [place] [id number] Hemoglobin Ql (U) Negative Normal Compreh ensive Internal Medicine Work Phone: Comment on above: PATIENT NOT FASTINGP ERFORMED BY: CB [facility] Howjkd8120 [address] RoadDublin [place] [id number] Hemoglobin Ql (U) Negative Normal Compreh ensive Internal Medicine; [facility] Work Phone: Comment on above: PATIENT NOT FASTINGP ERFORMED BY: CB [facility] Wkrjjo1870 [address] RoadDublin [place] [id number] Ketones Ql (U) Negative Normal Comprehens gian Internal Medicine Work Phone: Comment on above: PATIENT NOT FASTINGP ERFORMED BY: HERI [facility] Vamabq0212 [address] RoadDublin [place] [id number] Ketones Ql (U) Negative Normal Comprehens gian Internal Medicine; [facility] Work Phone: Comment on above: PATIENT NOT FASTINGP ERFORMED BY: HERI [facility] Linisq7246 [address] RoadDublin [place] [id number] Leukocyte esterase Test strip Ql (U) Negative Normal [facility] Work Phone: Comment on above: PATIENT NOT FASTINGP ERFORMED BY: HERI [facility] Rbficb9801 [address] RoadDublin [place] [id number] Leukocyte esterase Test strip Ql (U) Negative Normal [facility]; [facility] Work Phone: Comment on above: PATIENT NOT FASTINGP ERFORMED BY: HERI [facility] Cfannt6887 [address] RoadDublin [place] [id number] Microscopic observation LM Nom (Urine sed) MICRON Normal [facility] Work Phone: Comment on above: Microscopic follows if indicated. PATIENT NOT FASTINGP ERFORMED BY: HERI [facility] Iglefu1203 [address] RoadDublin [place] [id number] Microscopic observation LM Nom (Urine sed) See below: Normal [facility] Work Phone: Comment on above: PATIENT NOT FASTINGP ERFORMED BY: HERI [facility] Olussf3420 [address] RoadDublin [place] [id number] Nitrite Ql (U) Negative Normal Comprehens gian Internal Medicine Work Phone: Comment on above: PATIENT NOT FASTINGP ERFORMED BY: CB [facility] Xboqmb9519 [address] RoadDublin [place] [id number] Nitrite Ql (U) Negative Normal Comprehens gian Internal Medicine; [facility] Work Phone: Comment on above: PATIENT NOT FASTINGP ERFORMED BY: CB [facility] Kyumqt6148 [address] RoadDublin [place] [id number] pH (U) 7.0 [pH] Normal 5.0-7.5 [facility] Work Phone: Comment on above: PATIENT NOT FASTINGP ERFORMED BY: HERI [facility] Papeql8061 [address] Roadblin [place] [id number] Protein Ql (U) Negative Normal Comprehens gian Internal Medicine Work Phone: Comment on above: PATIENT NOT FASTINGP ERFORMED BY: HERI [facility] Iywkjy3663 [address]Dublin [place] [id number] Protein Ql (U) Negative Normal Comprehens gian Internal Medicine; [facility] Internal Medicine Work Phone: Comment on above: PATIENT NOT FASTINGP ERFORMED BY: HERI [facility] Mxzzih9594 Domingo RoadCentral Harnett Hospitalin [place] [id number] Specific gravity (U) [Rel density] 1.011 1 Normal 1.005-1.030 [facility] Internal Medicine Work Phone: Comment on above: PATIENT NOT FASTINGP ERFORMED BY: HERI [facility] Zagnxn3176 [address] [facility] [id number] Urobilinogen (U) [Mass/Vol] 0.2 mg/dL Normal 0.0-1.9 [facility]; [facility] Internal Medicine Work Phone: Comment on above: PATIENT NOT FASTINGP ERFORMED BY: HERI [facility] Rmofzr4976 [address] [facility] [id number] Urobilinogen Test strip (U) [Mass/Vol] 0.2 mg/dL Normal 0.0-1.9 Comprehensi Internal Medicine Work Phone: Comment on above: PATIENT NOT FASTINGP ERFORMED BY: LabCo Yyncig9463 [address] [facility] [id number] CBC WITH MANUAL DIFF (73464) Ordered By: Engine Specialist on 01-17-2010 Basophils (Bld) [#/Vol] 0.0 {x10E3/uL} Normal 0.0-0.2 [facility] Internal Medicine Work Phone: Comment on above: PATIENT WAS FASTINGP ERFORMED BY: HERI [facility] Rsjxjp9918 [address] [facility] [place] [id number] Information: [id number] Basophils (Bld) [#/Vol] 0.0 10*3/uL Normal 0.0-0.2 [facility]; [facility] Work Phone: Comment on above: PATIENT WAS FASTINGP ERFORMED BY: HERI Teresalin6370 [facility] [id number] Information: [id number],X10179 Basophils/100 WBC (Bld) 1 % Normal 0-3 [facility] Work Phone: Comment on above: PATIENT WAS FASTINGP ERFORMED BY: [address] [id number] Information: [id number],[id number] Eosinophils (Bld) [#/Vol] 0.2 {x10E3/uL} Normal 0.0-0.4 [facility] Work Phone: Comment on above: PATIENT WAS FASTINGP ERFORMED BY: [address] [id number] Information: [id number] Eosinophils (Bld) [#/Vol] 0.2 10*3/uL Normal 0.0-0.4 [facility]; [facility] Work Phone: Comment on above: PATIENT WAS FASTINGP ERFORMED BY: hCristianaLisa Ville 7683270 [facility] [id number] Information: 072226,[id number] Eosinophils/100 WBC (Bld) 4 % Normal 0-7 [facility] Work Phone: Comment on above: PATIENT WAS FASTINGP ERFORMED BY: [address] [id number] Information: [id number],Y30968 Erythrocyte distribution width (RBC) [Ratio] 12.2 % Normal 11.7-15.0 [facility] Work Phone: Comment on above: PATIENT WAS FASTINGP ERFORMED BY: [place] 9638070 [facility] [id number] Information: 904074,[id number] Hematocrit (Bld) [Volume fraction] 38.4 % Normal 34.0-44.0 [facility] Work Phone: Comment on above: PATIENT WAS FASTINGP ERFORMED BY: HERI Villeda[address] [id number] Information: 615486,[id number] Hemoglobin (Bld) [Mass/Vol] 13.4 g/dL Normal 11.5-15.0 [facility] Work Phone: Comment on above: PATIENT WAS FASTINGP ERFORMED BY: [address] [id number] Information: 234257,F00225 Immature granulocytes (Bld) [#/Vol] 0.0 {x10E3/uL} Normal 0.0-0.1 [facility] Work Phone: Comment on above: PATIENT WAS FASTINGP ERFORMED BY: [address] [id number] Information: 264706,[id number] Immature granulocytes (Bld) [#/Vol] 0.0 10*3/uL Normal 0.0-0.1 [facility]; [facility] Work Phone: Comment on above: PATIENT WAS FASTINGP ERFORMED BY: [place] 9638070 [facility] [id number] Information: 670492,F29365 Immature granulocytes/100 WBC (Bld) 0 % Normal 0-1 [facility] Work Phone: Comment on above: PATIENT WAS FASTINGP ERFORMED BY: [place] 9638070 [facility] [id number] Information: 079660,[id number] Lymphocytes (Bld) [#/Vol] 1.4 {x10E3/uL} Normal 0.7-4.5 [facility] Work Phone: Comment on above: PATIENT WAS FASTINGP ERFORMED BY: [address] [id number] Information: [id number],[id number] Lymphocytes (Bld) [#/Vol] 1.4 10*3/uL Normal 0.7-4.5 [facility]; [facility] Work Phone: Comment on above: PATIENT WAS FASTINGP ERFORMED BY: [facility]6370 [facility] [id number] Information: [id number],[id number] Lymphocytes/100 WBC (Bld) 36 % Normal 14-46 [facility] Work Phone: Comment on above: PATIENT WAS FASTINGP ERFORMED BY: [address] [id number] Information: [id number],Y85831 MCH (RBC) [Entitic mass] 30.7 pg Normal 27.0-34.0 [facility] Internal Medicine Work Phone: Comment on above: PATIENT WAS FASTINGP ERFORMED BY: [place] 9638070 [facility] [id number] Information: 809238,[id number] MCHC (RBC) [Mass/Vol] 34.9 g/dL Normal 32.0-36.0 [facility] Internal Medicine Work Phone: Comment on above: PATIENT WAS FASTINGP ERFORMED BY: [facility]6370 [facility] [id number] Information: 465209,Y19917 MCV (RBC) [Entitic vol] 88 fL Normal 80-98 [facility] Internal Medicine Work Phone: Comment on above: PATIENT WAS FASTINGP ERFORMED BY: [facility]6370 [facility] [id number] Information: [id number],[id number] Monocytes (Bld) [#/Vol] 0.4 {x10E3/uL} Normal 0.1-1.0 [facility] Internal Medicine Work Phone: Comment on above: PATIENT WAS FASTINGP ERFORMED BY: [place] 9638070 [facility] [id number] Information: 118253,L13515 Monocytes (Bld) [#/Vol] 0.4 10*3/uL Normal 0.1-1.0 [facility]; [facility] Work Phone: Comment on above: PATIENT WAS FASTINGP ERFORMED BY: HERI [facility] Sirvxf7435 [address] [facility] [place] [id number] Information: 045653,[id number] Monocytes/100 WBC (Bld) 10 % Normal 4-13 [facility] Work Phone: Comment on above: PATIENT WAS FASTINGP ERFORMED BY: [facility] Gozefn4260 [address] [facility] [id number] Information: 821488,[id number] Neutrophils (Bld) [#/Vol] 2.0 {x10E3/uL} Normal 1.8-7.8 [facility] Work Phone: Comment on above: PATIENT WAS FASTINGP ERFORMED BY: [facility]in[facility]6370 [facility] [id number] Information: 250827,[id number] Neutrophils (Bld) [#/Vol] 2.0 10*3/uL Normal 1.8-7.8 [facility]; [facility] Work Phone: Comment on above: PATIENT WAS FASTINGP ERFORMED BY: [facility] Vevtcm2091 [facility] [id number] Information: 280568,Y80586 Neutrophils/100 WBC (Bld) 49 % Normal 40-74 [facility] Work Phone: Comment on above: PATIENT WAS FASTINGP ERFORMED BY: LabCo Jcnnwl4235 [facility] [id number] Information: 888262,[id number] Platelets (Bld) [#/Vol] 207 {x10E3/uL} Normal 140-415 [facility] Work Phone: Comment on above: PATIENT WAS FASTINGP ERFORMED BY: LabCo Fhpvkl4584 [facility] [id number] Information: 727935,[id number] Platelets (Bld) [#/Vol] 207 10*3/uL Normal 140-415 [facility]; [facility] Work Phone: Comment on above: PATIENT WAS FASTINGP ERFORMED BY: HERI [place]6370 [facility] [id number] Information: [id number],[id number] RBC (Bld) [#/Vol] 4.36 {x10E6/uL} Normal 3.80-5.10 [facility] Internal [facility] Work Phone: Comment on above: PATIENT WAS FASTINGP ERFORMED BY: HERI [facility] Kwaegc2710 [facility] [id number] Information: 351176,S47377 RBC (Bld) [#/Vol] 4.36 10*6/uL Normal 3.80-5.10 [facility] Internal Medicine; [facility] Work Phone: Comment on above: PATIENT WAS FASTINGP ERFORMED BY: HERI [facility] Shvlsv2069 [facility] [id number] Information: 172864,G57272 WBC (Bld) [#/Vol] 4.0 {x10E3/uL} Normal 4.0-10.5 [facility] Internal Medicine Work Phone: Comment on above: PATIENT WAS FASTINGP ERFORMED BY: HERI [facility] Hmtige2883 [facility] [id number] Information: 635050,[id number] WBC (Bld) [#/Vol] 4.0 10*3/uL Normal 4.0-10.5 [facility] Internal Medicine; [facility] Work Phone: Comment on above: PATIENT WAS FASTINGP ERFORMED BY: HERI [facility]illedaS[facility] Smttxo6000 [facility] [id number] Information: 138428,[id number] LIPID PANEL (32351)Ordered B y: Engine Specialist on 01-17-2010 Cholesterol [Mass/Vol] 179 mg/dL Normal 100-199 [facility] Internal Medicine Work Phone: Comment on above: PATIENT WAS FASTINGP ERFORMED BY: CB [facility] Peblbg0169 Domingo RoadDublin [place] [id number] Cholesterol in HDL [Mass/Vol] 56 mg/dL Normal [facility] Work Phone: Comment on above: According to ATP-III Guidelines, HDL-C >59 mg/dL is considered anegative risk factor for CHD. PATIENT WAS FASTINGP ERFORMED BY: CB [facility] Jwkpoz0900 Domingo RoadDublin [place] [id number] Cholesterol in LDL [Mass/Vol] 100 mg/dL Abnormal 0-99 [facility] Work Phone: Comment on above: PATIENT WAS FASTINGP ERFORMED BY: HERI [facility] Yzcuuo0250 [address] [facility]bl[facility] [place] [id number] Cholesterol in LDL/Cholesterol in HDL [Mass ratio] 1.8 {ratio_units} Normal 0.0-3.2 [facility] Work Phone: Comment on above: PATIENT WAS FASTINGP ERFORMED BY: HERI [facility] Athqiu4751 [address] RoadCentral Harnett Hospitalin [place] [id number] Cholesterol in VLDL [Mass/Vol] 23 mg/dL Normal 5-40 [facility] Work Phone: Comment on above: PATIENT WAS FASTINGP ERFORMED BY: CB [facility] Lkifcz8855 [address] [facility]in [place] [id number] Triglyceride [Mass/Vol] 117 mg/dL Normal 0-149 [facility] Work Phone: Comment on above: PATIENT WAS FASTINGP ERFORMED BY: CB [facility] Lfmlef4167 [address] [facility] Hospitalblin [place] [id number] METABOLIC PANEL, COMPREHENSI VE (56452)Ordered By: Engine Specialist on 01-17-2010 Albumin [Mass/Vol] 4.2 g/dL Normal 3.5-5.5 [facility] Internal Medicine Work Phone: Comment on above: PATIENT WAS FASTINGP ERFORMED BY: CB [facility] Kzafks4161 [address] Roadblin [place] [id number] Albumin/Globulin [Mass ratio] 1.5 {ratio} Normal 1.1-2.5 [facility] Work Phone: Comment on above: PATIENT WAS FASTINGP ERFORMED BY: [facility] Cxxcug7444 Domingo RoadDublin [place] [id number] ALP [Catalytic activity/Vol] 39 [iU]/L Normal 25-150 [facility] Work Phone: Comment on above: PATIENT WAS FASTINGP ERFORMED BY: [facility] Bsnaub8931 [address]ingo RoadDublin [place] [id number] ALP [Catalytic activity/Vol] 39 U/L Normal 25-150 [facility]; [facility] Work Phone: Comment on above: PATIENT WAS FASTINGP ERFORMED BY: [facility] Uxrbza3281 [address]ingo RoadDublin [place] [id number] ALT [Catalytic activity/Vol] 15 [iU]/L Normal 0-40 [facility] Work Phone: Comment on above: PATIENT WAS FASTINGP ERFORMED BY: [facility] Cdqymi8809 [address] RoadDublin [place] [id number] ALT [Catalytic activity/Vol] 15 U/L Normal 0-40 [facility]; [facility] Work Phone: Comment on above: PATIENT WAS FASTINGP ERFORMED BY: [facility] Ioaapl3694 [address] RoadDublin [place] [id number] AST [Catalytic activity/Vol] 19 [iU]/L Normal 0-40 [facility] Work Phone: Comment on above: PATIENT WAS FASTINGP ERFORMED BY: [facility] Ogiwkf3419 [address] RoadDublin [place] [id number] AST [Catalytic activity/Vol] 19 U/L Normal 0-40 [facility]; [facility] Work Phone: Comment on above: PATIENT WAS FASTINGP ERFORMED BY: [facility] Bltblo2128 [address]ingo RoadDublin [place] [id number] Bilirubin [Mass/Vol] 0.5 mg/dL Normal 0.0-1.2 [facility] Work Phone: Comment on above: PATIENT WAS FASTINGP ERFORMED BY: CB [facility] Yzvykt4667 [address]ingo RoadDublin [place] [id number] Calcium [Mass/Vol] 9.1 mg/dL Normal 8.7-10.2 [facility] Internal Medicine Work Phone: Comment on above: PATIENT WAS FASTINGP ERFORMED BY: CB [facility] Wubdhw0581 [address] RoadDublin [place] [id number] Chloride [Moles/Vol] 106 mmol/L Normal 97-108 Comp rehensive Internal Medicine Work Phone: Comment on above: PATIENT WAS FASTINGP ERFORMED BY: CB [facility] Qhiosk7830 [address] RoadDublin [place] [id number] CO2 [Moles/Vol] 20 mmol/L Normal 20-32 [facility] Internal Medicine Work Phone: Comment on above: PATIENT WAS FASTINGP ERFORMED BY: CB [facility] Oduoyk8046 [address] RoadDublin [place] [id number] Creatinine [Mass/Vol] 0.95 mg/dL Normal 0.57-1.00 [facility] Internal Medicine Work Phone: Comment on above: PATIENT WAS FASTINGP ERFORMED BY: CB [facility] Cywpex0951 [address]ingo RoadDublin [place] [id number] GFR/1.73 sq M predicted among blacks MDRD (S/P/Bld) [Vol rate/Area] mL/min/{1.73_m2} Normal [facility] Work Phone: Comment on above: Note: Persistent red uction for 3 months or more in an eGFR<60 mL/min/1.73 m2 defines CKD. Patients with eGFR values>/=60 mL/min/1.73 m2 may also have CKD if evidence of persistentproteinuria is present. Additional information may be found [email or web address]. PATIENT WAS FASTINGP ERFORMED BY: CB [facility] Ehpkzt5351 [address]ingo RoadDublin [place] [id number] GFR/1.73 sq M.predicted MDRD (S/P/Bld) [Vol rate/Area] mL/min/{1.73_m2} Normal [facility] Internal Medicine Work Phone: Comment on above: PATIENT WAS FASTINGP ERFORMED BY: [facility] Weixjp2078 [address] Roadblin [place] [id number] GFR/1.73 sq M.predicted MDRD vol rate/area mL/min/{1.73_m2} Normal [facility] Internal Medicine Work Phone: Comment on above: PATIENT WAS FASTINGP ERFORMED BY: LabS[facility] Pfwzxx1489 [address] [facility]in [place] [id number] Globulin (S) [Mass/Vol] 2.8 g/dL Normal 1.5-4.5 [facility] Internal Medicine Work Phone: Comment on above: PATIENT WAS FASTINGP ERFORMED BY: LabS[facility] Sinexp7337 [address] RoadCentral Harnett Hospitalin [place] [id number] Glucose [Mass/Vol] 89 mg/dL Normal 65-99 [facility] Internal Medicine Work Phone: Comment on above: PATIENT WAS FASTINGP ERFORMED BY: LabS[facility] Ljhlxm0121 [address] [facility]in [place] [id number] Potassium [Moles/Vol] 3.9 mmol/L Normal 3.5-5.2 [facility] Internal Medicine Work Phone: Comment on above: PATIENT WAS FASTINGP ERFORMED BY: [facility] Cgntwj5684 [address] [facility]in [place] [id number] Protein [Mass/Vol] 7.0 g/dL Normal 6.0-8.5 [facility] Internal Medicine Work Phone: Comment on above: PATIENT WAS FASTINGP ERFORMED BY: [facility] Zbmgjp0442 [address] RoadDublin [place] [id number] Sodium [Moles/Vol] 141 mmol/L Normal 135-145 [facility] Internal Medicine Work Phone: Comment on above: PATIENT WAS FASTINGP ERFORMED BY: [facility] Ifmgax6814 [address] Roadblin [place] [id number] Urea nitrogen [Mass/Vol] 15 mg/dL Normal 5-26 [facility] Work Phone: Comment on above: PATIENT WAS FASTINGP ERFORMED BY: HERI LabElena TeresaIvoolz8792 [address] RoadDublin [place] [id number] Urea nitrogen/Creatinine [Mass ratio] 16 mg/mg Normal 8-27 [facility] Work Phone: Comment on above: PATIENT WAS FASTINGP ERFORMED BY: HERI LabManas Bngath4356 [address] RoadDublin [place] [id number] TSH ([id number])Ordered By: Camileon Heelse m Preflight Inspector on 01-17-2010 TSH Qn 1.160 {uIU/mL} Normal 0.450-4.500 Comprehen sive Internal Medicine Work Phone: Comment on above: PATIENT WAS FASTINGP ERFORMED BY: HERI Winn Trrsgr2201 [address] RoadDublin [place] [id number] URINALYSIS, W/ MICRO (44140) Ordered By: Engine Specialist on 01-17-2010 Appearance (U) Clear Normal Comprehens gian Internal Medicine Work Phone: Comment on above: PATIENT WAS FASTINGP ERFORMED BY: HERI Winn Uwtkko7879 [address] RoadDublin [place] [id number] Bilirubin Ql (U) Negative Normal Comprehe nsive Internal Medicine Work Phone: Comment on above: PATIENT WAS FASTINGP ERFORMED BY: HERI Winn Tdpfml9391 [address] RoadDublin [place] [id number] Bilirubin Ql (U) Negative Normal Comprehe nsive Internal Medicine; [facility] Work Phone: Comment on above: PATIENT WAS FASTINGP ERFORMED BY: HERI LabManas Cdtnnd0793 [address] RoadDublin [place] [id number] Color (U) Yellow Normal [facility] Work Phone: Comment on above: PATIENT WAS FASTINGP ERFORMED BY: HERI [facility] Aetyms4442 [address] RoadDublin [place] [id number] Glucose Ql (U) Negative Normal Comprehens gian Internal Medicine Work Phone: Comment on above: PATIENT WAS FASTINGP ERFORMED BY: HERI LabManasever TeresaWxumrj0769 [address] RoadDuin [place] [id number] Glucose Ql (U) Negative Normal Comprehens gian Internal Medicine; [facility] Work Phone: Comment on above: PATIENT WAS FASTINGP ERFORMED BY: HERI ChristianaElena TeresaWtgvbo6791 [address] RoadCentral Harnett Hospitalin [place] [id number] Hemoglobin Ql (U) Negative Normal Compreh ensive Internal Medicine Work Phone: Comment on above: PATIENT WAS FASTINGP ERFORMED BY: HERI Teresalin6370 [address] [facility] [id number] Hemoglobin Ql (U) Negative Normal Compreh ensive Internal Medicine; [facility] Work Phone: Comment on above: PATIENT WAS FASTINGP ERFORMED BY: HERI Teresalin6[address] [facility] [id number] Ketones Ql (U) Trace Abnormal Comprehens gian Internal Medicine Work Phone: Comment on above: PATIENT WAS FASTINGP ERFORMED BY: HERI Teresalin6370 [address] [facility] [id number] Leukocyte esterase Test strip Ql (U) Negative Normal [facility] Work Phone: Comment on above: PATIENT WAS FASTINGP ERFORMED BY: HERI Teresalin6[address] [facility] [id number] Leukocyte esterase Test strip Ql (U) Negative Normal [facility]; [facility] Work Phone: Comment on above: PATIENT WAS FASTINGP ERFORMED BY: HERI Teresalin6[address] [facility] [id number] Microscopic observation LM Nom (Urine sed) MICRON Normal [facility] Work Phone: Comment on above: Microscopic follows if indicated. PATIENT WAS FASTINGP ERFORMED BY: HERI Teresalin6370 [address] [facility]in [place] [id number] Microscopic observation LM Nom (Urine sed) See below: Normal [facility] Work Phone: Comment on above: PATIENT WAS FASTINGP ERFORMED BY: HERI LabElena TeresaItarcl7766 [address] RoadDublin [place] [id number] Nitrite Ql (U) Negative Normal Comprehens gian Internal Medicine Work Phone: Comment on above: PATIENT WAS FASTINGP ERFORMED BY: HERI LabS[facility] Vjorco8324 [address] RoadDublin [place] [id number] Nitrite Ql (U) Negative Normal Comprehens gian Internal Medicine; [facility] Work Phone: Comment on above: PATIENT WAS FASTINGP ERFORMED BY: LabMackinac [facility]6370 [address] Roadblin [place] [id number] pH (U) 6.0 [pH] Normal 5.0-7.5 [facility] Work Phone: Comment on above: PATIENT WAS FASTINGP ERFORMED BY: [facility]6370 [address] Roadblin [place] [id number] Protein Ql (U) Trace Normal Comprehens gian Internal Medicine Work Phone: Comment on above: PATIENT WAS FASTINGP ERFORMED BY: [facility]6[address] [facility] [id number] Specific gravity (U) [Rel density] 1.025 1 Normal 1.005-1.030 [facility] Internal Medicine Work Phone: Comment on above: PATIENT WAS FASTINGP ERFORMED BY: [facility]6[address] [facility] [id number] Urobilinogen (U) [Mass/Vol] 0.2 mg/dL Normal 0.0-1.9 [facility]; [facility] Internal Medicine Work Phone: Comment on above: PATIENT WAS FASTINGP ERFORMED BY: LabUniversity Of Missouri Health CareAwpzqm3336 Domingo RoadDuin [place] [id number] Urobilinogen Test strip (U) [Mass/Vol] 0.2 mg/dL Normal 0.0-1.9 [facility] Internal Medicine Work Phone: Comment on above: PATIENT WAS FASTINGP ERFORMED BY: LabUniversity Of Missouri Health CareMpurkf5043 [address]ingo RoadDublin [place] [id number] Creatine Kinase Total (83618 )Ordered By: Libertad Rivera on 05-22-2009 CK [Catalytic activity/Vol] 84 U/L Normal 24-173 [facility] Work Phone: Comment on above: PATIENT NOT FASTINGP ERFORMED BY: HERI [facility] Csfpfb1532 [address] RoadDublin [place] [id number] METABOLIC PANEL, COMPREHENSI VE (90372)Ordered By: Libertad Fast on 05-22-2009 Albumin [Mass/Vol] 4.3 g/dL Normal 3.5-5.5 [facility] Internal Medicine Work Phone: Comment on above: PATIENT NOT FASTINGC linical Information: [id number] PERFORMED BY: HERI LabCoever TeresaVteskz7743 [address] Roadblin [place] [id number] Albumin/Globulin [Mass ratio] 1.5 {ratio} Normal 1.1-2.5 [facility] Work Phone: Comment on above: PATIENT NOT FASTINGC linical Information: [id number] PERFORMED BY: HERI [facility] Igqjlo6984 [address] Roadblin [place] [id number] ALP [Catalytic activity/Vol] 46 [iU]/L Normal 25-150 [facility] Work Phone: Comment on above: PATIENT NOT FASTINGC linical Information: [id number] PERFORMED BY: HERI [facility] Iuajvr1975 [address] RoadDublin [place] [id number] ALP [Catalytic activity/Vol] 46 U/L Normal 25-150 [facility]; [facility] Work Phone: Comment on above: PATIENT NOT FASTINGC linical Information: [id number] PERFORMED BY: HERI [facility] Kheiek[address] [facility]bl[facility] [place] [id number] ALT [Catalytic activity/Vol] 15 [iU]/L Normal 0-40 [facility] Work Phone: Comment on above: PATIENT NOT FASTINGC linical Information: [id number] PERFORMED BY: HERI [facility] Mbvbso6220 [address] RoadDublin [place] [id number] ALT [Catalytic activity/Vol] 15 U/L Normal 0-40 [facility]; [facility] Work Phone: Comment on above: PATIENT NOT FASTINGC linical Information: [id number] PERFORMED BY: HERI [facility] Zkwlii[address] [facility]bl[facility] [place] [id number] AST [Catalytic activity/Vol] 17 [iU]/L Normal 0-40 [facility] Work Phone: Comment on above: PATIENT NOT FASTINGC linical Information: [id number],[id number] PERFORMED BY: [facility] Srncer0056 [address] RoadCentral Harnett Hospitalin [place] [id number] AST [Catalytic activity/Vol] 17 U/L Normal 0-40 [facility]; [facility] Work Phone: Comment on above: PATIENT NOT FASTINGC linical Information: [id number] PERFORMED BY: [facility] Zaitwk[address]77 [address] [facility] [id number] Bilirubin [Mass/Vol] 0.5 mg/dL Normal 0.1-1.2 Comp [facility] instituteensive Internal Medicine Work Phone: Comment on above: PATIENT NOT FASTINGC linical Information: [id number] PERFORMED BY: [facility] Amxumz[address] [facility]in [place] [id number] Calcium [Mass/Vol] 9.6 mg/dL Normal 8.5-10.6 [facility] Internal Medicine Work Phone: Comment on above: PATIENT NOT FASTINGC linical Information: [id number] PERFORMED BY: [employer] [id number] Domingo [facility] [place] [id number] Chloride [Moles/Vol] 101 mmol/L Normal 97-108 Comp [facility] Work Phone: Comment on above: PATIENT NOT FASTINGC linical Information: [id number] PERFORMED BY: [employer] [id number] Domingo [facility] [place] [id number] CO2 [Moles/Vol] 24 mmol/L Normal 20-32 Comprehen [facility] Internal Medicine Work Phone: Comment on above: PATIENT NOT FASTINGC linical Information: [id number] PERFORMED BY: [employer] [id number] [facility] [id number] Creatinine [Mass/Vol] 0.90 mg/dL Normal 0.57-1.00 [facility] prehensive Internal Medicine Work Phone: Comment on above: PATIENT NOT FASTINGC linical Information: [id number] PERFORMED BY: [employer] Ithsqe3542 [facility] [id number] GFR/1.73 sq M predicted among blacks MDRD (S/P/Bld) [Vol rate/Area] mL/min/{1.73_m2} Normal [facility] Work Phone: Comment on above: Note: Persistent red uction for 3 months or more in an eGFR<60 mL/min/1.73 m2 defines CKD. Patients with eGFR values>/=60 mL/min/1.73 m2 may also have CKD if evidence of persistentproteinuria is present. Additional information may be found [email or web address]. PATIENT NOT FASTINGC linical Information: [id number] PERFORMED BY: [employer] Oggurc9731 [facility] [id number] GFR/1.73 sq M.predicted MDRD (S/P/Bld) [Vol rate/Area] mL/min/{1.73_m2} Normal [facility] Work Phone: Comment on above: PATIENT NOT FASTINGC linical Information: [id number] PERFORMED BY: [employer] [place] [id number] [facility] [id number] GFR/1.73 sq M.predicted MDRD vol rate/area mL/min/{1.73_m2} Normal [facility] Work Phone: Comment on above: PATIENT NOT FASTINGC linical Information: [id number] PERFORMED BY: [employer] [id number] [facility] [id number] Globulin (S) [Mass/Vol] 2.8 g/dL Normal 1.5-4.5 [facility] Internal Medicine Work Phone: Comment on above: PATIENT NOT FASTINGC linical Information: [id number] PERFORMED BY: [facility]6370 [facility] [id number] Glucose [Mass/Vol] 79 mg/dL Normal 65-99 [facility] Internal Medicine Work Phone: Comment on above: PATIENT NOT FASTINGC linical Information: [id number] PERFORMED BY: [facility]6370 [facility] [id number] Potassium [Moles/Vol] 4.0 mmol/L Normal 3.5-5.2 [facility] Internal Medicine Work Phone: Comment on above: PATIENT NOT FASTINGC linical Information: [id number] PERFORMED BY: [facility]6370 [facility] [id number] Protein [Mass/Vol] 7.1 g/dL Normal 6.0-8.5 [facility] Internal Medicine Work Phone: Comment on above: PATIENT NOT FASTINGC linical Information: [id number] PERFORMED BY: [facility]6370 [facility] [id number] Sodium [Moles/Vol] 139 mmol/L Normal 135-145 [facility] Internal Medicine Work Phone: Comment on above: PATIENT NOT FASTINGC linical Information: [id number] PERFORMED BY: [facility]6370 [facility] [id number] Urea nitrogen [Mass/Vol] 25 mg/dL Normal 5-26 [facility] Internal Medicine Work Phone: Comment on above: PATIENT NOT FASTINGC linical Information: [id number] PERFORMED BY: [facility]6370 [facility] [id number] Urea nitrogen/Creatinine [Mass ratio] 28 mg/mg Abnormal 8-27 [facility] Work Phone: Comment on above: PATIENT NOT FASTINGC linical Information: [id number] PERFORMED BY: [employer] TA70 Jose L [facility] [id number] Urinalysis, Office ([id number])Or dered By: Cammie Ramos on 10-07-2008 Bilirubin Ql (U) Negative Normal Comprehe nsive Internal Medicine Work Phone: Bilirubin Ql (U) Negative Normal Comprehe nsive Internal Medicine; [facility] Work Phone: Glucose Test strip (U) [Mass/Vol] Negative Normal [facility] Work Phone: Glucose Test strip (U) [Mass/Vol] Negative Normal [facility]; [facility] Work Phone: Hemoglobin Ql (U) Negative Normal Compreh ensive Internal Medicine Work Phone: Hemoglobin Ql (U) Negative Normal Compreh ensive Internal Medicine; [facility] Work Phone: Leukocyte esterase Test strip Ql (U) Trace Normal [facility] Work Phone: Nitrite Ql (U) Negative Normal Comprehens gian Internal Medicine Work Phone: Nitrite Ql (U) Negative Normal Comprehens gian Internal Medicine; [facility] Work Phone: pH (U) 7.0 [pH] Normal [facility] Work Phone: Protein Ql (U) 30 mg/dL Normal Comprehens gian Internal Medicine Work Phone: Specific gravity (U) [Rel density] 1.015 1 Normal [facility] Work Phone: Urobilinogen (24H U) [Mass/Time] Normal Normal [facility] Work Phone: HEPATIC FUNCTION PANEL ([phone])Ordered By: Libertad Rivera on 01-04-2008 Albumin [Mass/Vol] 4.5 g/dL Normal 3.5-5.5 Compre hensive Internal Medicine Work Phone: Comment on above: now and in 2 weeks; PATIENT NOT FASTINGClinical Information: ADD DRAW FEE [id number] ADD J [id number] PERFORMED BY: [place] [id number] [facility] [id number] ALP [Catalytic activity/Vol] 42 [iU]/L Normal 25-150 [facility] Work Phone: Comment on above: now and in 2 weeks; PATIENT NOT FASTINGClinical Information: ADD DRAW FEE [id number] ADD J [id number] PERFORMED BY: [address] [id number] ALP [Catalytic activity/Vol] 42 U/L Normal 25-150 [facility]; [facility] Work Phone: Comment on above: now and in 2 weeks; PATIENT NOT FASTINGClinical Information: ADD DRAW FEE [id number] ADD J [id number] PERFORMED BY: [address] [id number] ALT [Catalytic activity/Vol] 10 [iU]/L Normal 0-40 [facility] Work Phone: Comment on above: now and in 2 weeks; PATIENT NOT FASTINGClinical Information: ADD DRAW FEE [id number] ADD J [id number] PERFORMED BY: [address] [id number] ALT [Catalytic activity/Vol] 10 U/L Normal 0-40 [facility]; [facility] Work Phone: Comment on above: now and in 2 weeks; PATIENT NOT FASTINGClinical Information: ADD DRAW FEE [id number] ADD J [id number] PERFORMED BY: [facility] Icpetr[address] [id number] AST [Catalytic activity/Vol] 15 [iU]/L Normal 0-40 [facility] Work Phone: Comment on above: now and in 2 weeks; PATIENT NOT FASTINGClinical Information: ADD DRAW FEE [id number] ADD J [id number] PERFORMED BY: [address] [id number] AST [Catalytic activity/Vol] 15 U/L Normal 0-40 [facility]; [facility] Work Phone: Comment on above: now and in 2 weeks; PATIENT NOT FASTINGClinical Information: ADD DRAW FEE [id number] ADD J 28534 PERFORMED BY: [facility]6370 [facility] [id number] Bilirubin [Mass/Vol] 0.4 mg/dL Normal 0.1-1.2 [facility] Internal Medicine Work Phone: Comment on above: now and in 2 weeks; PATIENT NOT FASTINGClinical Information: ADD DRAW FEE [id number] ADD J [id number] PERFORMED BY: [place] [id number] [facility] [id number] Bilirubin.direct [Mass/Vol] 0.11 mg/dL Normal 0.00-0.40 [facility] Internal Medicine Work Phone: Comment on above: now and in 2 weeks; PATIENT NOT FASTINGClinical Information: ADD DRAW FEE [id number] ADD J [id number] PERFORMED BY: [facility]6370 [facility] [id number] Protein [Mass/Vol] 7.3 g/dL Normal 6.0-8.5 [facility] Internal Medicine Work Phone: Comment on above: now and in 2 weeks; PATIENT NOT FASTINGClinical Information: ADD DRAW FEE [id number] ADD J 26210 PERFORMED BY: [address] [id number] Thin prep Pap ([id number])Ordered By: Libertad Rivera on 10-12-2007 Thin prep Pap (13617) [facility] Normal [facility] prehensive Internal Medicine Work Phone: Comment on above: NEGATIVE FOR INTRAEP ITHELIAL LESION AND MALIGNANCY.Satisfactory for evaluation. Endocervical and/or squamous metaplasticcells (endocervical component) are present.V72.31 ; Routine gynecological examinationChchanning Gonzales Cargo Inspector (ASCP) Source.............C ervical;EndocervicalLMP / Prev Treat...MXL=[id number]. of containers..01 CYTYC Thin Prep VialPATIENT NOT FASTINGClinical Information: ADD [id number] PERFORMED BY: [address] [id number] Thin prep Pap (26280) . Normal Com prehensive Internal Medicine Work Phone: Comment on above: Source.............C ervical;EndocervicalLMP / Prev Treat...MJB=[id number]. of containers..01 CYTYC Thin Prep VialPATIENT NOT FASTINGClinical Information: ADD [id number] PERFORMED BY: [employer] [address] [id number] Thin prep Pap (75310) PAPSMR Normal Com prehensive Internal Medicine Work Phone: Comment on above: The Pap smear is a s creening test designed to aid in the detection ofpremalignant and malignant conditions of the uterine cervix. It is not adiagnostic procedure and should not be used as the sole means of detectingcervical cancer. Both false-positive and false-negative reports do occur. .The HPV DNA reflex criteria were not met with this specimen resulttherefore, no HPV testing was performed. . Source.............C ervical;EndocervicalLMP / Prev Treat...QUK=[id number]. of containers..01 CYTYC Thin Prep VialPATIENT NOT FASTINGClinical Information: ADD [id number] PERFORMED BY: [employer] [address] [id number] Clostridium difficile detect ion by polymerase chain reaction C. difficile DNA BAM+probe Ql (Unsp spec) [facility] Work Phone: ECG B/O W INTERP (MED OFFICE ) [facility] EP Panel Gastrointestinal pathogens panel BAM+probe (Stl) [facility] Work Phone: No Panel Information Enteric Bacteriology [facility] Work Phone: Stool lactoferrin detection by immunoassay Lactoferrin IA Ql (Stl) [facility] Work Phone: Vital Signs Date Time Vital Sign Value Performing Clinician Facility 09-23-2024 08:27-0500 Body mass index (BMI) [Ratio] 26.7 kg/m2 Dr. Nathan Guzman DO Work Phone: [facility] 09-23-2024 08:27-0500 Body weight 82.[address] Nathan Guzman DO Work Phone: [facility] 09-23-2024 08:27-0500 Diastolic blood pressure 79 mm[Hg] Dr. Nathan Guzman DO Work Phone: [facility] 09-23-2024 08:27-0500 Heart rate 66 /min Dr. Nathan Guzman DO Work Phone: [facility] 09-23-2024 08:27-0500 Respiratory rate 18 /min Dr. Nathan Guzman DO Work Phone: [facility] 09-23-2024 08:27-0500 Systolic blood pressure 112 mm[Hg] Dr. Nathan ash DO Work Phone: [facility] 08-12-2024 08:58-0500 Body height 175.[address] Nathan Guzman DO Work Phone: [facility] 08-12-2024 08:58-0500 Body weight 80.[address] Nathan Guzman DO Work Phone: [facility] 07-14-2024 15:52-0500 Body weight 80.[address] Nathan Guzman DO Work Phone: [facility] 06-17-2024 13:22-0500 Body mass index (BMI) [Ratio] 26.4 kg/m2 Dr. Nathan Guzman DO Work Phone: [facility] 06-17-2024 13:22-0500 Diastolic blood pressure 86 mm[Hg] Dr. Nathan Guzman DO Work Phone: [facility] 06-17-2024 13:22-0500 Heart rate 69 /min Dr. Nathan Guzman DO Work Phone: [facility] 06-17-2024 13:22-0500 SaO2% (BldA) [Mass fraction] 97 % Dr. Nathan Guzman DO Work Phone: [facility] 06-17-2024 13:22-0500 Systolic blood pressure 120 mm[Hg] Dr. Nathan ash DO Work Phone: [facility] 06-17-2024 13:12-0500 Body weight 81.[address] Nathan Guzman DO Work Phone: [facility] 06-14-2024 13:56-0500 Body mass index (BMI) [Ratio] 26.99 kg/m2 Rudy Muoh DO Work Phone: [facility] 06-14-2024 13:56-0500 Body weight 80.51 kg Rudy Muoh DO Work Phone: [facility] 06-14-2024 13:56-0500 Diastolic blood pressure 100 mm[Hg] Rudy Muoh DO Work Phone: [facility] 06-14-2024 13:56-0500 Heart rate 86 /min Rudy Muoh DO Work Phone: [facility] 06-14-2024 13:56-0500 Systolic blood pressure 145 mm[Hg] Rudy Muoh DO Work Phone: [facility] 04-27-2024 14:49-0400 Body height 175.3 cm Sam Lerma DOORKEEPER.FULLING MACHINE OPERATOR Work Phone: [facility] 04-27-2024 14:49-0400 Body mass index (BMI) [Ratio] 25.43 kg/m2 Sam Laffey DOORKEEPER.FULLING MACHINE OPERATOR Work Phone: [facility] 04-27-2024 14:49-0400 Body temperature 98.6 [degF] Samaide Greenbergy DOORKEEPER.FULLING MACHINE OPERATOR Work Phone: [facility] 04-27-2024 14:49-0400 Body weight 78.11 kg Samaide Lerma DOORKEEPER.FULLING MACHINE OPERATOR Work Phone: [facility] 04-27-2024 14:49-0400 Diastolic blood pressure 79 mm[Hg] Sam Lerma DOORKEEPER.FULLING MACHINE OPERATOR Work Phone: [facility] 04-27-2024 14:49-0400 Heart rate 105 /min Sam Lerma DOORKEEPER.FULLING MACHINE OPERATOR Work Phone: [facility] 04-27-2024 14:49-0400 SaO2% (BldA) [Mass fraction] 96 % Sam Lerma DOORKEEPER.FULLING MACHINE OPERATOR Work Phone: [facility] 04-27-2024 14:49-0400 Systolic blood pressure 128 mm[Hg] Sam Lerma DOORKEEPER.FULLING MACHINE OPERATOR Work Phone: [facility] 04-15-2024 08:15-0400 SaO2% (BldA) [Mass fraction] 98 % NA TIMO [facility] Comment on above: Order Comment: Specimen Type: ARTERIAL B LOOD SPECIMENOrdering Facility: [facility] Address: [address] [place] [address] Performed By: #### A LLBG ####[facility] LABIA [id number] [address] [place] 04-15-2024 03:27-0400 SaO2% (BldA) [Mass fraction] 99 % NA TIMO [facility] Comment on above: Order Comment: Specimen Type: ARTERIAL B LOOD SPECIMENOrdering Facility: [facility] Address: [address] [place] [address] Performed By: #### A LLBG ####[facility] LABCLIA [id number] [address] [place] 04-14-2024 23:33-0400 SaO2% (BldA) [Mass fraction] 97 % NA TIMO [facility] Comment on above: Order Comment: Specimen Type: ARTERIAL B LOOD SPECIMENOrdering Facility: [facility] Address: [address] [place] [address] Performed By: #### A LLBG ####[facility] LABCLIA [id number] [place] [id number] [place] 04-14-2024 19:47-0400 SaO2% (BldA) [Mass fraction] 98 % NA TIMO [facility] Comment on above: Order Comment: Specimen Type: ARTERIAL B LOOD SPECIMENOrdering Facility: [facility] Address: [address] [place] [address] Performed By: #### A LLBG ####[facility] LABIA [id number] [place] [id number] [place] 04-14-2024 16:18-0400 SaO2% (BldA) [Mass fraction] 98 % NA TIMO [facility] Comment on above: Order Comment: Specimen Type: ARTERIAL B LOOD SPECIMENOrdering Facility: [facility] Address: [address] [place] [address] Performed By: #### A LLBG ####[facility] [id number] [place] [id number] [place] 04-14-2024 14:24-0400 SaO2% (BldA) [Mass fraction] 97 % NA TIMO [facility] Comment on above: Order Comment: Specimen Type: ARTERIAL B LOOD SPECIMENOrdering Facility: [facility] Address: [address] [place] [address] Performed By: #### A LLBG ####[facility] LABIA [id number] [place] [id number] [place] 04-14-2024 12:56-0400 SaO2% (BldA) [Mass fraction] 99 % NA TIMO [facility] Comment on above: Order Comment: Specimen Type: ARTERIAL B LOOD SPECIMENOrdering Facility: [facility] Address: [address] [place] [address] Performed By: #### A LLBG ####[facility] [id number] [address] [address] [place] 04-14-2024 12:06-0400 SaO2% (BldA) [Mass fraction] 100 % NA TIMO [facility] Comment on above: Order Comment: Specimen Type: ARTERIAL B LOOD SPECIMENOrdering Facility: [facility] Address: [address] [place], [place] [id number] Performed By: #### A LLBG ####[facility] LABCLIA [id number] [place] [id number] [place] 04-14-2024 11:49-0400 SaO2% (BldA) [Mass fraction] 100 % NA TIMO [facility] Comment on above: Order Comment: Specimen Type: ARTERIAL B LOOD SPECIMENOrdering Facility: [facility] Address: [address] [place], [place] [address] Performed By: #### A LLBG ####[facility] LABIA [id number] [place] [id number] [place] 04-14-2024 11:19-0400 SaO2% (BldA) [Mass fraction] 100 % NA TIMO [facility] Comment on above: Order Comment: Specimen Type: ARTERIAL B LOOD SPECIMENOrdering Facility: [facility] Address: [address] [place], [place] [address] Performed By: #### A LLBG ####[facility] LABIA [id number] [place] [id number] [place] 04-14-2024 10:44-0400 SaO2% (BldA) [Mass fraction] 100 % NA TIMO [facility] Comment on above: Order Comment: Specimen Type: ARTERIAL B LOOD SPECIMENOrdering Facility: [facility] Address: [address] [place], [place] [address] Performed By: #### A LLBG ####[facility] LABIA [id number] [place] [id number] [place] 04-14-2024 10:22-0400 SaO2% (BldA) [Mass fraction] 99 % NA TIMO [facility] Comment on above: Order Comment: Specimen Type: ARTERIAL B LOOD SPECIMENOrdering Facility: [facility] Address: [address] [place] [address] Performed By: #### A LLBG ####[facility] LABCLIA [id number] [address] 04-14-2024 08:16-0400 SaO2% (BldA) [Mass fraction] 99 % NA TIMO [facility] Comment on above: Order Comment: Specimen Type: ARTERIAL B LOOD SPECIMENOrdering Facility: [facility] Address: [address] [place] [address] Performed By: #### A LLBG ####[facility] LABCLIA [id number] [address] [place] 04-12-2024 08:33-0400 Diastolic blood pressure 92 mm[Hg] Jeyson Hoff MD Work Phone: [facility] 04-12-2024 08:33-0400 Systolic blood pressure 148 mm[Hg] Jeyson Hoff MD Work Phone: [facility] 04-12-2024 08:31-0400 Body height 172.7 cm Jeyson Hoff MD Work Phone: [facility] 04-12-2024 08:31-0400 Body mass index (BMI) [Ratio] 26.65 kg/m2 Jeyson Hoff MD Work Phone: [facility] 04-12-2024 08:31-0400 Body weight 79.52 kg Jeyson Hoff MD Work Phone: [facility] 04-12-2024 08:31-0400 Heart rate 64 /min Jeyson Hoff MD Work Phone: [facility] 04-12-2024 08:31-0400 SaO2% (BldA) [Mass fraction] 97 % Jeyson Hoff MD Work Phone: [facility] 02-24-2024 13:46-0400 Body height 175.3 cm Maulik Mitchell MD Work Phone: [facility] Comment on above: Patient reports. 02-24-2024 13:46-0400 Body mass index (BMI) [Ratio] 25.93 kg/m2 Maulik Mitchell MD Work Phone: [facility] 02-24-2024 13:46-0400 Body weight 79.65 kg Maulik Mitchell MD Work Phone: [facility] Comment on above: Fully clothed with shoes off 02-24-2024 13:46-0400 Diastolic blood pressure 80 mm[Hg] Maulik Mitchell MD Work Phone: [facility] 02-24-2024 13:46-0400 Heart rate 80 /min Maulik Mitchell MD Work Phone: [facility] 02-24-2024 13:46-0400 SaO2% (BldA) [Mass fraction] 98 % Maulik Mitchell MD Work Phone: [facility] 02-24-2024 13:46-0400 Systolic blood pressure 110 mm[Hg] Maulik Huffman Work Phone: [facility] 01-09-2024 14:52-0400 Body height 175.3 cm Troy Byrd APRN.FULLING MACHINE OPERATOR Work Phone: [facility] 01-09-2024 14:52-0400 Body mass index (BMI) [Ratio] 25.7 kg/m2 Troy Byrd APRN.FULLING MACHINE OPERATOR Work Phone: [facility] 01-09-2024 14:52-0400 Body weight 78.93 kg Troy Byrd APRN.FULLING MACHINE OPERATOR Work Phone: [facility] 01-09-2024 14:52-0400 Diastolic blood pressure 81 mm[Hg] Troy Byrd APRN.FULLING MACHINE OPERATOR Work Phone: [facility] 01-09-2024 14:52-0400 Heart rate 85 /min Troy Byrd APRN.FULLING MACHINE OPERATOR Work Phone: [facility] 01-09-2024 14:52-0400 Respiratory rate 18 /min Troy Byrd APRN.FULLING MACHINE OPERATOR Work Phone: [facility] 01-09-2024 14:52-0400 SaO2% (BldA) [Mass fraction] 97 % Troy Byrd DOORKEEPER.FULLING MACHINE OPERATOR Work Phone: [facility] 01-09-2024 14:52-0400 Systolic blood pressure 130 mm[Hg] Troy Byrd DOORKEEPER.FULLING MACHINE OPERATOR Work Phone: [facility] 11-20-2023 05:25-0400 Body temperature 98.6 [degF] Dr. Nathan Guzman Work Phone: [facility] 11-20-2023 05:25-0400 Diastolic blood pressure 62 mm[Hg] Dr. Nathan Guzman Work Phone: [facility] 11-20-2023 05:25-0400 Heart rate 80 /min Dr. Nathan Guzman Work Phone: [facility] 11-20-2023 05:25-0400 Respiratory rate 18 /min Dr. Nathan Guzman Work Phone: [facility] 11-20-2023 05:25-0400 SaO2% (BldA) [Mass fraction] 96 % Dr. Nathan Guzman Work Phone: [facility] 11-20-2023 05:25-0400 Systolic blood pressure 111 mm[Hg] Dr. Nathan ash Work Phone: [facility] 11-20-2023 02:51-0400 Body height 175.[address] Nathan Guzman Work Phone: [facility] 11-20-2023 02:51-0400 Body mass index (BMI) [Ratio] 25.7 kg/m2 Dr. Nathan Guzman Work Phone: [facility] 11-20-2023 02:51-0400 Body weight 78.[address] Nathan Guzman Work Phone: [facility] 10-09-2023 14:19-0400 Body mass index (BMI) [Ratio] 26.1 kg/m2 Dr. Nathan Guzman Work Phone: [facility] 10-09-2023 14:19-0400 Body weight 80.[address] Nathan Guzman Work Phone: [facility] 10-09-2023 14:19-0400 Diastolic blood pressure 71 mm[Hg] [facility] Guzman [facility] [facility] 10-09-2023 14:19-0400 Heart rate 71 /min Dr. Nathan Guzman Work Phone: [facility] 10-09-2023 14:19-0400 Respiratory rate 16 /min Dr. Nathan Guzman Work Phone: [facility] 10-09-2023 14:19-0400 Systolic blood pressure 129 mm[Hg] Dr. Nathan ash Work Phone: [facility] 04-07-2023 15:14-0400 Body height 175.[address] Nathan Guzman Work Phone: [facility] 04-07-2023 15:08-0400 Body mass index (BMI) [Ratio] 26.2 kg/m2 Dr. Nathan Guzman Work Phone: [facility] 04-07-2023 15:08-0400 Body weight 80.[address] Nathan Guzman Work Phone: [facility] 04-07-2023 15:08-0400 Diastolic blood pressure 83 mm[Hg] Dr. Nathan Guzman Work Phone: [facility] 04-07-2023 15:08-0400 Heart rate 83 /min Dr. Nathan Guzman Work Phone: [facility] 04-07-2023 15:08-0400 Respiratory rate 16 /min Dr. Nathan Guzman Work Phone: [facility] 04-07-2023 15:08-0400 Systolic blood pressure 128 mm[Hg] Dr. Nathan ash Work Phone: [facility] 01-15-2023 11:22-0400 Body height 175.3 cm Naomy Thomas MD Work Phone: [facility] 01-15-2023 11:22-0400 Body weight 80.74 kg Naomy Thomas MD Work Phone: [facility] 01-15-2023 11:22-0400 Diastolic blood pressure 98 mm[Hg] Naomy Thomas MD Work Phone: [facility] 01-15-2023 11:22-0400 Heart rate 62 /min Naomy Thomas MD Work Phone: [facility] 01-15-2023 11:22-0400 SaO2% (BldA) [Mass fraction] 95 % Naomy Thomas MD Work Phone: [facility] 01-15-2023 11:22-0400 Systolic blood pressure 141 mm[Hg] Naomy rodriguez MD Work Phone: [facility] 01-06-2023 14:02-0400 Body height 173.99 cm Nathan Guzman Work Phone: [facility] [address] DO Work Phone: 01-06-2023 14:02-0400 Body mass index (BMI) [Ratio] 27.27 kg/m2 Nathan Guzman Work Phone: [facility] [address] DO Work Phone: 01-06-2023 14:02-0400 Body surface area Derived from formula 1.97 m2 Nathan Guzman Work Phone: [facility] [address] DO Work Phone: 01-06-2023 14:02-0400 Body weight 82.56 kg Nathan Guzman Work Phone: [facility] [address] DO Work Phone: 01-06-2023 14:02-0400 Diastolic blood pressure 85 mm[Hg] Nathan Guzman Work Phone: [facility] 2500 DO Work Phone: 01-06-2023 14:02-0400 Heart rate 62 /min Nathan Guzman Work Phone: [facility] [address] DO Work Phone: 01-06-2023 14:02-0400 Systolic blood pressure 128 mm[Hg] Nathan Guzman Work Phone: [facility] 2500 DO Work Phone: 01-02-2023 13:02-0400 Body height 175.[address] Nathan Guzman Work Phone: [facility] 01-02-2023 13:02-0400 Body mass index (BMI) [Ratio] 26.7 kg/m2 Dr. Nathan Guzman Work Phone: [facility] 01-02-2023 13:02-0400 Body weight 82.[address] Nathan Guzman Work Phone: [facility] 01-02-2023 13:02-0400 Diastolic blood pressure 81 mm[Hg] Dr. Nathan Guzman Work Phone: [facility] 01-02-2023 13:02-0400 Heart rate 71 /min Dr. Nathan Guzman Work Phone: [facility] 01-02-2023 13:02-0400 Respiratory rate 16 /min Dr. Nathan Guzman Work Phone: [facility] 01-02-2023 13:02-0400 Systolic blood pressure 118 mm[Hg] Dr. Nathan ash Work Phone: [facility] 12-25-2022 01:28-0400 Diastolic blood pressure 76 mm[Hg] Dr. Nathan Guzman Work Phone: [facility] 12-25-2022 01:28-0400 Heart rate 102 /min Dr. Nathan Guzman Work Phone: [facility] 12-25-2022 01:28-0400 Respiratory rate 16 /min Dr. Nathan Guzman Work Phone: [facility] 12-25-2022 01:28-0400 SaO2% (BldA) [Mass fraction] 97 % Dr. Nathan Guzman Work Phone: [facility] 12-25-2022 01:28-0400 Systolic blood pressure 108 mm[Hg] Dr. Nathan ash Work Phone: [facility] 12-24-2022 23:45-0400 Body height 175.[address] Nathan Guzman Work Phone: [facility] 12-24-2022 23:45-0400 Body mass index (BMI) [Ratio] 27.5 kg/m2 Dr. Nathan Guzman Work Phone: [facility] 12-24-2022 23:45-0400 Body temperature 98.2 [degF] Dr. Nathan Guzman Work Phone: [facility] 12-24-2022 23:45-0400 Body weight 84.[address] Nathan Guzman Work Phone: [facility] 12-18-2022 12:08-0400 Diastolic blood pressure 74 mm[Hg] Dr. Nathan Guzman Work Phone: [facility] 12-18-2022 12:08-0400 Heart rate 81 /min Dr. Nathan Guzman Work Phone: [facility] 12-18-2022 12:08-0400 Respiratory rate 16 /min Dr. Nathan Guzman Work Phone: [facility] 12-18-2022 12:08-0400 SaO2% (BldA) [Mass fraction] 97 % Dr. Nathan Guzman Work Phone: [facility] 12-18-2022 12:08-0400 Systolic blood pressure 126 mm[Hg] Dr. Nathan ash Work Phone: [facility] 12-18-2022 07:19-0400 Body mass index (BMI) [Ratio] 26.9 kg/m2 Dr. Nathan Guzman Work Phone: [facility] 12-18-2022 07:19-0400 Body temperature 98 [degF] Dr. Nathan Guzman Work Phone: [facility] 12-18-2022 07:19-0400 Body weight 82.[address] Nathan Guzman Work Phone: [facility] 11-11-2022 14:42-0400 Body height 175.[address] Nathan Guzman Work Phone: [facility] 11-11-2022 14:42-0400 Body mass index (BMI) [Ratio] 27.4 kg/m2 Dr. Nathan Guzman Work Phone: [facility] 11-11-2022 14:42-0400 Body weight 84.[address] Nathan Guzman Work Phone: [facility] 11-11-2022 14:42-0400 Diastolic blood pressure 81 mm[Hg] Dr. Nathan Guzman Work Phone: [facility] 11-11-2022 14:42-0400 Heart rate 94 /min Dr. Nathan Guzman Work Phone: [facility] 11-11-2022 14:42-0400 Respiratory rate 16 /min Dr. Nathan Guzman Work Phone: [facility] 11-11-2022 14:42-0400 Systolic blood pressure 121 mm[Hg] Dr. Nathan ash Work Phone: [facility] 06-25-2022 11:35-0500 Body height 175.[address] Nathan Guzman Work Phone: [facility] Work Phone: 06-25-2022 11:35-0500 Body mass index (BMI) [Ratio] 28.9 kg/m2 Dr. Nathan Guzman Work Phone: [facility] Work Phone: 06-25-2022 11:35-0500 Body weight 88.[address] Nathan Guzman Work Phone: [facility] Work Phone: 06-25-2022 11:35-0500 Diastolic blood pressure 91 mm[Hg] Dr. Nathan Guzman Work Phone: [facility] Work Phone: 06-25-2022 11:35-0500 Heart rate 91 /min Dr. Nathan Guzman Work Phone: [facility] Work Phone: 06-25-2022 11:35-0500 SaO2% (BldA) [Mass fraction] 95 % Dr. Nathan Guzman Work Phone: [facility] Work Phone: 06-25-2022 11:35-0500 Systolic blood pressure 135 mm[Hg] Dr. Nathan Crenshaw n Work Phone: [facility] Work Phone: 05-01-2022 12:25-0400 Body temperature 98.3 [degF] TODDLER GUIDE-C Shilpa Rosales TODDLER GUIDE Work Phone: [facility] Work Phone: 05-01-2022 12:25-0400 Diastolic blood pressure 73 mm[Hg] TOD[employer]ER GUIDE-C Shilpa Ciesa TODDLER GUIDE Work Phone: [facility] Work Phone: 05-01-2022 12:25-0400 Heart rate 64 /min [employer] GU[employer] Shilpa Taia TODDLER GUIDE Work Phone: [facility] Work Phone: 05-01-2022 12:25-0400 Respiratory rate 16 /min [employer]ER GU[employer] Shilpa Taia TODDLER GUIDE Work Phone: [facility] Work Phone: 05-01-2022 12:25-0400 SaO2% (BldA) [Mass fraction] 98 % TODDLER GUIDE-C Shilpa Taia TODDLER GUIDE Work Phone: [facility] Work Phone: 05-01-2022 12:25-0400 Systolic blood pressure 119 mm[Hg] TODDLER GUIDE-C Shilpa Taia TODDLER GUIDE Work Phone: [facility] Work Phone: 05-01-2022 10:59-0400 Body height 175.26 cm TODDLER GUIDE-C Shilpa Taia TODDLER GUIDE Work Phone: [facility] Work Phone: 05-01-2022 10:59-0400 Body mass index (BMI) [Ratio] 27.8 kg/m2 TOD[employer]ER GUIDE-C Shilpa Taia TODDLER GUIDE Work Phone: [facility] Work Phone: 05-01-2022 10:59-0400 Body weight 85.72 kg TOD[employer]ER GUIDE-C Shilpa Taia TODDLER GUIDE Work Phone: [facility] Work Phone: 04-18-2022 08:09-0400 Body height 175.26 cm TODDLER GUIDE-C Shilpa Taia TODDLER GUIDE Work Phone: [facility] Work Phone: 04-18-2022 08:09-0400 Body mass index (BMI) [Ratio] 27.3 kg/m2 TODDLER GUIDE-C Shilpa Taia TODDLER GUIDE Work Phone: [facility] Work Phone: 04-18-2022 08:09-0400 Body weight 83.91 kg TODDLER GUIDE-C Shilpa Rosales TODDLER GUIDE Work Phone: [facility] Work Phone: 04-13-2022 13:38-0400 Diastolic blood pressure 74 mm[Hg] TODDLER GUIDE-C Shilpa Taia TODDLER GUIDE Work Phone: [facility] Work Phone: 04-13-2022 13:38-0400 Heart rate 84 /min TOD[employer]ER GUIDE-C Shilpa Taia TODDLER GUIDE Work Phone: [facility] Work Phone: 04-13-2022 13:38-0400 Respiratory rate 18 /min TODDLER GUIDE-C Shilpa Taia TODDLER GUIDE Work Phone: [facility] Work Phone: 04-13-2022 13:38-0400 SaO2% (BldA) [Mass fraction] 99 % TODDLER GUIDE-C Shilpa Taia TODDLER GUIDE Work Phone: [facility] Work Phone: 04-13-2022 13:38-0400 Systolic blood pressure 123 mm[Hg] TODDLER GUIDE-C Shilpa Taia TODDLER GUIDE Work Phone: [facility] Work Phone: 04-13-2022 12:06-0400 Body height 175.26 cm TODDLER GUIDE-C Shilpa Taia TODDLER GUIDE Work Phone: [facility] Work Phone: 04-13-2022 12:06-0400 Body mass index (BMI) [Ratio] 28.3 kg/m2 TODDLER GUIDE-C Shilpa Taia TODDLER GUIDE Work Phone: [facility] Work Phone: 04-13-2022 12:06-0400 Body temperature 97 [degF] TODDLER GUIDE-C Shilpa Taia TODDLER GUIDE Work Phone: [facility] Work Phone: 04-13-2022 12:06-0400 Body weight 87 kg TODDLER GUIDE-C Shilpa Connie TODDLER GUIDE Work Phone: [facility] Work Phone: 03-26-2021 14:52-0400 Body height 170.18 cm Adelaide Alvarenga LPN [facility] Work Phone: 03-26-2021 14:52-0400 Body mass index (BMI) [Ratio] 30.23 kg/m2 Adelaide Alvarenga LPN [facility]; [facility] Work Phone: 03-26-2021 14:52-0400 Body surface area Derived from formula 1.99 m2 Adelaide Alvarenga LPN [facility]; [facility] Work Phone: 03-26-2021 14:52-0400 Body temperature 96.6 [degF] Adelaide Alvarenga LPN [facility]; [facility] Work Phone: Comment on above: Method: Temporal 03-26-2021 14:52-0400 Body weight 87.54 kg Adelaide Alvarenga LPN [facility] Work Phone: 03-26-2021 14:52-0400 Diastolic blood pressure 88 mm[Hg] Adelaide Alvarenga LPN [facility]; [facility] Work Phone: Comment on above: Patient Position: Sitting; Cuff Location : Left Arm; Cuff Size: Standard 03-26-2021 14:52-0400 Heart rate 116 /min Adelaide Alvarenga LPN [facility]; [facility] Work Phone: Comment on above: Pattern: Regular 03-26-2021 14:52-0400 Respiratory rate 16 /min Adelaide Alvarenga LPN [facility]; [facility] Work Phone: Comment on above: Pattern: Unlabored 03-26-2021 14:52-0400 SaO2% (BldA) [Mass fraction] 99 % Adelaide Alvarenga LPN [facility]; [facility] Work Phone: Comment on above: Room air 03-26-2021 14:52-0400 Systolic blood pressure 112 mm[Hg] Adelaide Alvarenga LPN [facility]; [facility] Work Phone: Comment on above: Patient Position: Sitting; Cuff Location : Left Arm; Cuff Size: Standard 03-23-2021 08:34-0400 Body height 170.18 cm Adelaide Alvarenga [employer] [facility] Work Phone: Comment on above: Virtual appt 03-23-2021 08:34-0400 Body mass index (BMI) [Ratio] 30.23 kg/m2 Adelaide Alvarenga [facility] Work Phone: Comment on above: Virtual appt 03-23-2021 08:34-0400 Body surface area Derived from formula 1.99 m2 Adelaide Alvarenga [facility] Work Phone: Comment on above: Virtual appt 03-23-2021 08:34-0400 Body weight 87.54 kg Adelaide Alvarenga [employer] [facility]; [facility] Work Phone: Comment on above: Virtual appt 03-13-2021 12:25-0400 Body height 170.18 cm Judy Manambrose [facility] Work Phone: 03-13-2021 12:25-0400 Body mass index (BMI) [Ratio] 30.23 kg/m2 Judy Manambrose [facility] Work Phone: 03-13-2021 12:25-0400 Body surface area Derived from formula 1.99 m2 Judy Manambrose [facility] Work Phone: 03-13-2021 12:25-0400 Body temperature 97.1 [degF] Judy Manambrose [facility] Work Phone: Comment on above: Method: Thermal Scan 03-13-2021 12:25-0400 Body weight 87.54 kg Judy Garcia [facility] Work Phone: 03-13-2021 12:25-0400 Diastolic blood pressure 86 mm[Hg] Judy Garcia [facility] Work Phone: Comment on above: Patient Position: Sitting; Cuff Location : Left Arm; Cuff Size: Standard 03-13-2021 12:25-0400 Heart rate 89 /min Judy Garcia [facility] Work Phone: Comment on above: Pattern: Regular 03-13-2021 12:25-0400 Respiratory rate 16 /min Juyd Garcia [facility] Work Phone: Comment on above: Pattern: Unlabored 03-13-2021 12:25-0400 SaO2% (BldA) [Mass fraction] 98 % Judy Garcia [facility]; [facility] Work Phone: Comment on above: Room air 03-13-2021 12:25-0400 Systolic blood pressure 124 mm[Hg] Judy Garcia [facility] Work Phone: Comment on above: Patient Position: Sitting; Cuff Location : Left Arm; Cuff Size: Standard 03-24-2020 14:10-0400 BMI (Body Mass Index) 30.23 kg/m2 Andrew Stewart LPN [facility] Work Phone: 03-24-2020 14:10-0400 Body weight 87.54 kg Andrew Stewart LPN [facility] Work Phone: 03-24-2020 14:10-0400 BSA (Body Surface Area) 1.99 m2 Andrew Stewart LPN [facility] Work Phone: 03-24-2020 14:10-0400 Height 170.18 cm Andrew Stewart LPN [facility] Work Phone: 02-28-2020 14:58-0400 BMI (Body Mass Index) 30.23 kg/m2 Andrew Stewart LPN [facility] Work Phone: 02-28-2020 14:58-0400 Body Temperature 97.2 [degF] Andrew Stewart LPN [facility] Work Phone: Comment on above: Method: Infrared 02-28-2020 14:58-0400 Body weight 87.54 kg Andrew Stewart LPN [facility] Work Phone: 02-28-2020 14:58-0400 BP Diastolic 62 mm[Hg] Andrew Stewart LPN [facility] Work Phone: Comment on above: Patient Position: Sitting; Cuff Location : Left Arm; Cuff Size: Standard 02-28-2020 14:58-0400 BP Systolic 102 mm[Hg] Andrew Stewart LPN [facility] Work Phone: Comment on above: Patient Position: Sitting; Cuff Location : Left Arm; Cuff Size: Standard 02-28-2020 14:58-0400 BSA (Body Surface Area) 1.99 m2 Andrew Stewart LPN [facility] Work Phone: 02-28-2020 14:58-0400 Height 170.18 cm Andrew Stewart LPN [facility] Work Phone: 02-28-2020 14:58-0400 Pulse (Heart Rate) 105 /min Andrew Stewart LPN [facility] Work Phone: Comment on above: Pattern: Regular 02-28-2020 14:58-0400 Pulse Oximetry 93 % Shilpa Rosales [facility] Work Phone: Comment on above: Room air 02-28-2020 14:58-0400 Respiratory Rate 16 /min Andrew Stewart LPN [facility] Work Phone: Comment on above: Pattern: Unlabored 02-28-2020 14:58-0400 SaO2% (BldA) [Mass fraction] 93 % Andrew Stewart LPN [facility]; [facility] Work Phone: Comment on above: Room air 06-28-2019 13:40-0500 BMI (Body Mass Index) 30.23 kg/m2 Cally Bales LPN [facility] Work Phone: 06-28-2019 13:40-0500 Body Temperature 98.2 [degF] Cally Bales LPN [facility] Work Phone: 06-28-2019 13:40-0500 Body weight 87.54 kg Cally Bales [employer] [facility] Work Phone: 06-28-2019 13:40-0500 BP Diastolic 86 mm[Hg] Cally Bales [employer] [facility] Work Phone: Comment on above: Patient Position: Sitting; Cuff Location : Left Arm; Cuff Size: Standard 06-28-2019 13:40-0500 BP Systolic 142 mm[Hg] Cally Bales [employer] [facility] Work Phone: Comment on above: Patient Position: Sitting; Cuff Location : Left Arm; Cuff Size: Standard 06-28-2019 13:40-0500 BSA (Body Surface Area) 1.99 m2 Cally Bales LPN [facility] Work Phone: 06-28-2019 13:40-0500 Height 170.18 cm Cally Bales LPN [facility] Work Phone: 06-28-2019 13:40-0500 Pulse (Heart Rate) 107 /min Cally Bales LPN [facility] Work Phone: Comment on above: Pattern: Regular 06-28-2019 13:40-0500 Pulse Oximetry 98 % Shilpa Rosales [facility] Work Phone: Comment on above: Room air 06-28-2019 13:40-0500 Respiratory Rate 17 /min Cally Bales LPN [facility] Work Phone: Comment on above: Pattern: Unlabored 06-28-2019 13:40-0500 SaO2% (BldA) [Mass fraction] 98 % Cally Bales [employer] [facility]; [facility] Work Phone: Comment on above: Room air 06-16-2018 10:26-0500 BMI (Body Mass Index) 31.38 kg/m2 Janet Mendoza [facility] Work Phone: 06-16-2018 10:26-0500 Body Temperature 98.5 [degF] Janet Mendoza [facility] Work Phone: Comment on above: Method: Temporal 06-16-2018 10:26-0500 Body weight 90.89 kg Janet Mendoza [facility] Work Phone: 06-16-2018 10:26-0500 BP Diastolic 88 mm[Hg] Janet Mendoza [facility] Work Phone: Comment on above: Patient Position: Sitting; Cuff Location : Left Arm; Cuff Size: Standard 06-16-2018 10:26-0500 BP Systolic 130 mm[Hg] Janet Mendoza [facility] Work Phone: Comment on above: Patient Position: Sitting; Cuff Location : Left Arm; Cuff Size: Standard 06-16-2018 [id number] BSA (Body Surface Area) 2.02 m2 Janet Velasqueze [facility] Work Phone: 06-16-2018 10:26-0500 Height 170.18 cm Janet Mendoaz [facility] Work Phone: 06-16-2018 10:26-0500 Pulse (Heart Rate) 94 /min Janet Mendoza [facility] Work Phone: Comment on above: Pattern: Regular 06-16-2018 10:26-0500 Pulse Oximetry 97 % Shilpa Rosales [facility] Work Phone: Comment on above: Room air 06-16-2018 10:26-0500 Respiratory Rate 17 /min Janet Mendoza [facility] Work Phone: Comment on above: Pattern: Unlabored 06-16-2018 10:26-0500 SaO2% (BldA) [Mass fraction] 97 % Janet Mendoza [facility]; [facility] Work Phone: Comment on above: Room air 06-16-2018 10:26-0500 Weight 90.89 kg Shilpa Rosales [facility] Work Phone: 04-13-2018 14:12-0400 BMI (Body Mass Index) 30.38 kg/m2 Janet Mendoza [facility] Work Phone: 04-13-2018 14:12-0400 Body Temperature 97.4 [degF] Janet Mendoza [facility] Work Phone: Comment on above: Method: Temporal 04-13-2018 14:12-0400 Body weight 88 kg Janet Mendoza [facility] Work Phone: 04-13-2018 14:12-0400 BP Diastolic 84 mm[Hg] Janet Mendoza [facility] Work Phone: Comment on above: Patient Position: Sitting; Cuff Location : Left Arm; Cuff Size: Standard 04-13-2018 14:12-0400 BP Systolic 126 mm[Hg] Janet Mendoza [facility] Work Phone: Comment on above: Patient Position: Sitting; Cuff Location : Left Arm; Cuff Size: Standard 04-13-2018 14:12-0400 BSA (Body Surface Area) 2 m2 Janet Mendoza [facility] Work Phone: 04-13-2018 14:12-0400 Height 170.18 cm Janet Mendoza [facility] Work Phone: 04-13-2018 14:12-0400 Pulse (Heart Rate) 105 /min Janet Mendoza [facility] Work Phone: Comment on above: Pattern: Regular 04-13-2018 14:12-0400 Pulse Oximetry 97 % Shilpa Rosales [facility] Work Phone: Comment on above: Room air 04-13-2018 14:12-0400 Respiratory Rate 18 /min Janet Mendoza [facility] Work Phone: Comment on above: Pattern: Unlabored 04-13-2018 14:12-0400 SaO2% (BldA) [Mass fraction] 97 % Janet Mendoza [facility]; [facility] Work Phone: Comment on above: Room air 04-13-2018 14:12-0400 Weight 88 kg Shilpa Rosales [facility] Work Phone: 05-05-2017 10:07-0400 BMI (Body Mass Index) 29.84 kg/m2 Cally Slarb [employer] [facility] Work Phone: 05-05-2017 10:07-0400 Body Temperature 97.7 [degF] Cally Bales [employer] [facility] Work Phone: 05-05-2017 10:07-0400 Body weight 86.41 kg Cally Bales [employer] [facility] Work Phone: 05-05-2017 10:07-0400 BP Diastolic 86 mm[Hg] Cally Bales [employer] [facility] Work Phone: Comment on above: Patient Position: Sitting; Cuff Location : Left Arm; Cuff Size: Standard 05-05-2017 10:07-0400 BP Systolic 122 mm[Hg] Cally Bales [employer] [facility] Work Phone: Comment on above: Patient Position: Sitting; Cuff Location : Left Arm; Cuff Size: Standard 05-05-2017 10:07-0400 BSA (Body Surface Area) 1.98 m2 Cally Bales LPN Compreh ensive Internal Medicine Work Phone: 05-05-2017 10:07-0400 Height 170.18 cm Cally Bales [employer] [facility] Work Phone: 05-05-2017 10:07-0400 Pulse (Heart Rate) 89 /min Cally Bales LPN Comprehensiv e Internal Medicine Work Phone: Comment on above: Pattern: Regular 05-05-2017 10:07-0400 Pulse Oximetry 98 % Shilpa Rosales [facility] Work Phone: Comment on above: Room air 05-05-2017 10:07-0400 Respiratory Rate 17 /min Cally Bales LPN [facility] Work Phone: Comment on above: Pattern: Unlabored 05-05-2017 10:07-0400 SaO2% (BldA) [Mass fraction] 98 % Cally Bales [employer] [facility]; [facility] Work Phone: Comment on above: Room air 05-05-2017 10:07-0400 Weight 86.41 kg Shilpa Rosales [facility] Work Phone: 03-07-2017 11:32-0400 BMI (Body Mass Index) 30.38 kg/m2 Judy Garcia [facility] Work Phone: 03-07-2017 11:32-0400 Body weight 88 kg Judy Garcia [facility] Medicine Work Phone: 03-07-2017 11:32-0400 BP Diastolic 78 mm[Hg] Judy Garcia [facility] Work Phone: Comment on above: Patient Position: Sitting; Cuff Location : Left Arm; Cuff Size: Standard 03-07-2017 11:32-0400 BP Systolic 124 mm[Hg] Judy Garcia [facility] Internal Medicine Work Phone: Comment on above: Patient Position: Sitting; Cuff Location : Left Arm; Cuff Size: Standard 03-07-2017 11:32-0400 BSA (Body Surface Area) 2 m2 Judy Garcia [facility] Work Phone: 03-07-2017 11:32-0400 Height 170.18 cm Judy Garcia [facility] Work Phone: 03-07-2017 11:32-0400 Pulse (Heart Rate) 91 /min Judy Garcia [facility] Medicine Work Phone: Comment on above: Pattern: Regular 03-07-2017 11:32-0400 Pulse Oximetry 97 % Shilpa Rosales [facility] Medicine Work Phone: Comment on above: Room air 03-07-2017 11:32-0400 Respiratory Rate 16 /min Judy Garcia [facility] Work Phone: Comment on above: Pattern: Unlabored 03-07-2017 11:32-0400 SaO2% (BldA) [Mass fraction] 97 % Judy Garcia [facility]; [facility] Work Phone: Comment on above: Room air 03-07-2017 11:32-0400 Weight 88 kg Shilpa Rosales [facility] Internal Medicine Work Phone: 04-05-2016 10:41-0400 BMI (Body Mass Index) 30.38 kg/m2 Cally Slarb [employer] Comprehen sive Internal Medicine Work Phone: 04-05-2016 10:41-0400 Body Temperature 97.6 [degF] Cally Slarb [employer] [facility] Work Phone: 04-05-2016 10:41-0400 Body weight 88 kg Cally Slarb [employer] [facility] Work Phone: 04-05-2016 10:41-0400 BP Diastolic 72 mm[Hg] Cally Slarb [employer] [facility] Work Phone: Comment on above: Patient Position: Sitting; Cuff Location : Left Arm; Cuff Size: Standard 04-05-2016 10:41-0400 BP Systolic 122 mm[Hg] Cally Slarb [employer] [facility] Work Phone: Comment on above: Patient Position: Sitting; Cuff Location : Left Arm; Cuff Size: Standard 04-05-2016 10:41-0400 BSA (Body Surface Area) 2 m2 Cally Slarb [employer] Compreh ens[facility] Medicine Work Phone: 04-05-2016 10:41-0400 Height 170.18 cm Cally Slarb [employer] [facility] Work Phone: 04-05-2016 10:41-0400 Pulse (Heart Rate) 87 /min Cally Slarb [employer] Comprehensiv e [facility] Medicine Work Phone: Comment on above: Pattern: Regular 04-05-2016 10:41-0400 Pulse Oximetry 18 % Shilpa Rosales [facility] Work Phone: Comment on above: Room air 04-05-2016 10:41-0400 Respiratory Rate 18 /min Cally Slarb [employer] [facility] Work Phone: Comment on above: Pattern: Unlabored 04-05-2016 10:41-0400 SaO2% (BldA) [Mass fraction] 18 % Cally Slarb [employer] [facility]; [facility] Work Phone: Comment on above: Room air 04-05-2016 10:41-0400 Weight 88 kg Shilpa Rosales [facility] Internal Medicine Work Phone: 05-15-2015 15:40-0400 BMI (Body Mass Index) 29.44 kg/m2 Judy Garcia [facility] Internal Medicine Work Phone: 05-15-2015 15:40-0400 Body Temperature 97.2 [degF] Judy Garcia [facility] Internal Medicine Work Phone: Comment on above: Method: Oral 05-15-2015 15:40-0400 Body weight 85.28 kg Judy Garcia [facility] Internal Medicine Work Phone: 05-15-2015 15:40-0400 BP Diastolic 70 mm[Hg] Judy Garcia [facility] Internal Medicine Work Phone: Comment on above: Patient Position: Sitting; Cuff Location : Left Arm; Cuff Size: Standard 05-15-2015 15:40-0400 BP Systolic 115 mm[Hg] Judy Garcia [facility] Internal Medicine Work Phone: Comment on above: Patient Position: Sitting; Cuff Location : Left Arm; Cuff Size: Standard 05-15-2015 15:40-0400 BSA (Body Surface Area) 1.97 m2 Judy Garcia [facility] Internal Medicine Work Phone: 05-15-2015 15:40-0400 Height 170.18 cm Judy Garcia [facility] Internal Medicine Work Phone: 05-15-2015 15:40-0400 Pulse (Heart Rate) 70 /min Judy Garcia [facility] Internal Medicine Work Phone: Comment on above: Pattern: Regular 05-15-2015 15:40-0400 Pulse Oximetry 98 % Shilpa Rosales [facility] Internal Medicine Work Phone: Comment on above: Room air 05-15-2015 15:40-0400 Respiratory Rate 16 /min Judy Garcia [facility] Internal Medicine Work Phone: Comment on above: Pattern: Unlabored 05-15-2015 15:40-0400 SaO2% (BldA) [Mass fraction] 98 % Judy Radha CROSS [facility]; [facility] Work Phone: Comment on above: Room air 05-15-2015 15:40-0400 Weight 85.28 kg Shilpa Rosales [facility] Work Phone: 02-10-2015 07:08-0400 BMI (Body Mass Index) 27.25 kg/m2 Idania Sheridan RN [facility] Work Phone: 02-10-2015 07:08-0400 Body weight 78.93 kg Idania Sheridan RN [facility] Work Phone: 02-10-2015 07:08-0400 BP Diastolic 98 mm[Hg] Idania Sheridan RN [facility] Work Phone: Comment on above: Patient Position: Sitting; Cuff Location : Left Arm; Cuff Size: Standard 02-10-2015 07:08-0400 BP Systolic 122 mm[Hg] Idania Sheridan RN [facility] Work Phone: Comment on above: Patient Position: Sitting; Cuff Location : Left Arm; Cuff Size: Standard 02-10-2015 07:08-0400 BSA (Body Surface Area) 1.91 m2 Idania Sheridan RN [facility] Work Phone: 02-10-2015 07:08-0400 Height 170.18 cm Idania Sheridan RN [facility] Work Phone: 02-10-2015 07:08-0400 Pulse (Heart Rate) 70 /min Idania Sheridan RN [facility] Work Phone: Comment on above: Pattern: Regular 02-10-2015 07:08-0400 Pulse Oximetry 98 % Shilpa Rosales [facility] Work Phone: Comment on above: Room air 02-10-2015 07:08-0400 Respiratory Rate 18 /min Idania Sheridan RN [facility] Work Phone: Comment on above: Pattern: Unlabored 02-10-2015 07:08-0400 SaO2% (BldA) [Mass fraction] 98 % Idania Sheridan RN [facility]; [facility] Work Phone: Comment on above: Room air 02-10-2015 07:08-0400 Weight 78.93 kg Shilpa Rosales [facility] Internal Medicine Work Phone: 10-03-2014 16:38-0400 BMI (Body Mass Index) 27.25 kg/m2 Shilpa Nolan gian Internal Medicine Work Phone: 10-03-2014 16:38-0400 Body Temperature 98 [degF] Shilpa Rosales [facility] Medicine Work Phone: Comment on above: Method: Oral 10-03-2014 16:38-0400 Body weight 78.93 kg Shilpa Rosales [facility] Medicine Work Phone: 10-03-2014 16:38-0400 BP Diastolic 70 mm[Hg] Shilpa Rosales [facility] Internal Medicine Work Phone: Comment on above: Patient Position: Sitting; Cuff Location : Left Arm; Cuff Size: Standard 10-03-2014 16:38-0400 BP Systolic 118 mm[Hg] Shilpa Rosales [facility] Internal [facility] Work Phone: Comment on above: Patient Position: Sitting; Cuff Location : Left Arm; Cuff Size: Standard 10-03-2014 16:38-0400 BSA (Body Surface Area) 1.91 m2 [facility] Work Phone: 10-03-2014 16:38-0400 Height 170.18 cm Shilpa Rosales [facility] Medicine Work Phone: 10-03-2014 16:38-0400 Pulse (Heart Rate) 68 /min Shilpa Rosales [facility] Work Phone: Comment on above: Pattern: Regular 10-03-2014 16:38-0400 Pulse Oximetry 98 % Shilpa Rosales [facility] Internal Medicine Work Phone: Comment on above: Room air 10-03-2014 16:38-0400 Respiratory Rate 17 /min Shilpa Rosales [facility] Medicine Work Phone: 10-03-2014 16:38-0400 SaO2% (BldA) [Mass fraction] 98 % Shilpa Rosales [facility] Work Phone: [facility]; [facility] Work Phone: Comment on above: Room air 10-03-2014 16:38-0400 Weight 78.93 kg Shilpa Rosales [facility] Work Phone: 09-26-2014 11:51-0500 BMI (Body Mass Index) 27.25 kg/m2 Shilpa Nolan gian [facility] Work Phone: 09-26-2014 11:51-0500 Body Temperature 97.9 [degF] Shilpa Rosales [facility] Work Phone: Comment on above: Method: Oral 09-26-2014 11:51-0500 Body weight 78.93 kg Shilpa Rosales [facility] Work Phone: 09-26-2014 11:51-0500 BP Diastolic 70 mm[Hg] Shilpa Rosales [facility] Work Phone: Comment on above: Patient Position: Sitting; Cuff Location : Left Arm; Cuff Size: Standard 09-26-2014 11:51-0500 BP Systolic 118 mm[Hg] Shilpa Rosales [facility] Work Phone: Comment on above: Patient Position: Sitting; Cuff Location : Left Arm; Cuff Size: Standard 09-26-2014 11:51-0500 BSA (Body Surface Area) 1.91 m2 Shilpa Tsai ns[facility] Work Phone: 09-26-2014 11:51-0500 Height 170.18 cm Shilpa Rosales [facility] Work Phone: 09-26-2014 11:51-0500 Pulse (Heart Rate) 68 /min Shilpa Rosales [facility] Work Phone: Comment on above: Pattern: Regular 09-26-2014 11:51-0500 Pulse Oximetry 98 % Shilpa Rosales [facility] Internal Medicine Work Phone: Comment on above: Room air 09-26-2014 11:51-0500 Respiratory Rate 17 /min Shilpa Rosales [facility] Medicine Work Phone: 09-26-2014 11:51-0500 SaO2% (BldA) [Mass fraction] 98 % Shilpa Rosales F[employer]ING MACHINE OPERATOR Work Phone: [facility]; [facility] Work Phone: Comment on above: Room air 09-26-2014 11:51-0500 Weight 78.93 kg Shilpa Rosales [facility] Work Phone: 05-16-2014 16:03-0400 BMI (Body Mass Index) 27.25 kg/m2 Shilpa Velasquezens gian Internal Medicine Work Phone: 05-16-2014 16:03-0400 Body Temperature 98.4 [degF] Shilpa Rosales [facility] Internal Medicine Work Phone: Comment on above: Method: Oral 05-16-2014 16:03-0400 Body weight 78.93 kg Shilpa Rosales [facility] Internal Medicine Work Phone: 05-16-2014 16:03-0400 BP Diastolic 76 mm[Hg] Shilpa Rosales [facility] Medicine Work Phone: Comment on above: Patient Position: Sitting; Cuff Location : Left Arm; Cuff Size: Standard 05-16-2014 16:03-0400 BP Systolic 118 mm[Hg] Shilpa Rosales [facility] Internal Medicine Work Phone: Comment on above: Patient Position: Sitting; Cuff Location : Left Arm; Cuff Size: Standard 05-16-2014 16:03-0400 BSA (Body Surface Area) 1.91 m2 Shilpa Tsai ns[facility] Medicine Work Phone: 05-16-2014 16:03-0400 Height 170.18 cm Shilpa Rosales [facility] Medicine Work Phone: 05-16-2014 16:03-0400 Pulse (Heart Rate) 70 /min Shilpa Rosales [facility] Work Phone: Comment on above: Pattern: Regular 05-16-2014 16:03-0400 Pulse Oximetry 98 % Shilpa Rosales [facility] Work Phone: Comment on above: Room air 05-16-2014 16:03-0400 SaO2% (BldA) [Mass fraction] 98 % Shilpa Rosales FULLING MACHINE OPERATOR Work Phone: [facility]; [facility] Work Phone: Comment on above: Room air 05-16-2014 16:03-0400 Weight 78.93 kg Shilpa Rosales [facility] Work Phone: 05-11-2014 09:08-0400 BMI (Body Mass Index) 27.25 kg/m2 Georgai Velasquezen siv Internal Medicine Work Phone: 05-11-2014 09:08-0400 Body Temperature 97.4 [degF] Georgia Lilly [facility] Work Phone: 05-11-2014 09:08-0400 Body weight 78.93 kg Georgia Vijaya [facility] Medicine Work Phone: 05-11-2014 09:08-0400 BP Diastolic 78 mm[Hg] Georgia Lilly [facility] Work Phone: Comment on above: Patient Position: Sitting; Cuff Location : Left Arm; Cuff Size: Standard 05-11-2014 09:08-0400 BP Systolic 102 mm[Hg] Georgia Lilly [facility] Internal [facility] Work Phone: Comment on above: Patient Position: Sitting; Cuff Location : Left Arm; Cuff Size: Standard 05-11-2014 09:08-0400 BSA (Body Surface Area) 1.91 m2 Georgia Velasquez ensive [facility] Medicine Work Phone: 05-11-2014 09:08-0400 Height 170.18 cm Georgia Lilly [facility] Work Phone: 05-11-2014 09:08-0400 Pulse (Heart Rate) 72 /min Georgia Velasquezensiv e Internal Medicine Work Phone: Comment on above: Pattern: Regular 05-11-2014 09:08-0400 Respiratory Rate 16 /min Georgia Lilly [facility] Internal Medicine Work Phone: Comment on above: Pattern: Unlabored 05-11-2014 09:08-0400 Weight 78.93 kg Shilpa Rosales [facility] Work Phone: 12-07-2013 14:02-0400 BMI (Body Mass Index) 26.31 kg/m2 Georgia [facility]quezmarg[facility] Internal Medicine Work Phone: 12-07-2013 14:02-0400 Body Temperature 97.9 [degF] Georgia Diazdotkishore [facility] Internal Medicine Work Phone: 12-07-2013 14:02-0400 Body weight 76.2 kg Georgia Lilly [facility] Internal Medicine Work Phone: 12-07-2013 14:02-0400 BP Diastolic 78 mm[Hg] Georgia Lilly [facility] Internal Medicine Work Phone: Comment on above: Patient Position: Sitting; Cuff Location : Left Arm; Cuff Size: Standard 12-07-2013 14:02-0400 BP Systolic 102 mm[Hg] Georgia Lilly [facility] Internal Medicine Work Phone: Comment on above: Patient Position: Sitting; Cuff Location : Left Arm; Cuff Size: Standard 12-07-2013 14:02-0400 BSA (Body Surface Area) 1.88 m2 Georgia [facility] Work Phone: 12-07-2013 14:02-0400 Height 170.18 cm Georgia Diazdayo [facility] Medicine Work Phone: 12-07-2013 14:02-0400 Pulse (Heart Rate) 64 /min Georgia Diazdayo Velasquezensiv e Internal Medicine Work Phone: Comment on above: Pattern: Regular 12-07-2013 14:02-0400 Respiratory Rate 16 /min Georgia Diazdayo [facility] Internal Medicine Work Phone: Comment on above: Pattern: Unlabored 12-07-2013 14:02-0400 Weight 76.2 kg Shilpa Rosales [facility] Internal Medicine Work Phone: 10-15-2013 07:37-0400 BMI (Body Mass Index) 26.31 kg/m2 Georgia Lilly Shub[facility] Internal Medicine Work Phone: 10-15-2013 07:37-0400 Body Temperature 97.6 [degF] Georgia Lilly [facility] Internal Medicine Work Phone: 10-15-2013 07:37-0400 Body weight 76.2 kg Georgia Lilly [facility] Internal Medicine Work Phone: 10-15-2013 07:37-0400 BP Diastolic 68 mm[Hg] Georgia Lilly [facility] Internal Medicine Work Phone: Comment on above: Patient Position: Sitting; Cuff Location : Left Arm; Cuff Size: Large 10-15-2013 07:37-0400 BP Systolic 92 mm[Hg] Georgia Lilly [facility] Internal Medicine Work Phone: Comment on above: Patient Position: Sitting; Cuff Location : Left Arm; Cuff Size: Large 10-15-2013 07:37-0400 BSA (Body Surface Area) 1.88 m2 Georgia Lilly Compreh ensive Internal Medicine Work Phone: 10-15-2013 07:37-0400 Height 170.18 cm Georgia Lilly [facility] Internal Medicine Work Phone: 10-15-2013 07:37-0400 Pulse (Heart Rate) 72 /min [facility] Work Phone: Comment on above: Pattern: Regular 10-15-2013 07:37-0400 Respiratory Rate 16 /min Georgia Lilly [facility] Internal Medicine Work Phone: Comment on above: Pattern: Unlabored 10-15-2013 07:37-0400 Weight 76.2 kg Shilpa Rosales [facility] Internal Medicine Work Phone: 07-09-2013 08:58-0500 BMI (Body Mass Index) 26.48 kg/m2 [facility] Work Phone: 07-09-2013 08:58-0500 Body Temperature 97.9 [degF] Shilpa Rosales [facility] Internal Medicine Work Phone: Comment on above: Method: Oral 07-09-2013 08:58-0500 Body weight 76.69 kg Shilpa Rosales [facility] Internal Medicine Work Phone: 07-09-2013 08:58-0500 BP Diastolic 72 mm[Hg] Shilpa Rosales [facility] Internal Medicine Work Phone: Comment on above: Patient Position: Sitting; Cuff Location : Left Arm; Cuff Size: Standard 07-09-2013 08:58-0500 BP Systolic 112 mm[Hg] Shilpa Rosales [facility] Internal Medicine Work Phone: Comment on above: Patient Position: Sitting; Cuff Location : Left Arm; Cuff Size: Standard 07-09-2013 08:58-0500 BSA (Body Surface Area) 1.88 m2 Shilpa Tsai nsive Internal Medicine Work Phone: 07-09-2013 08:58-0500 Height 170.18 cm Shilpa Rosales [facility] Medicine Work Phone: 07-09-2013 08:58-0500 Pulse (Heart Rate) 60 /min Shilpa Rosales [facility] Internal Medicine Work Phone: Comment on above: Pattern: Regular 07-09-2013 08:58-0500 Pulse Oximetry 98 % Shilpa Rosales [facility] Internal Medicine Work Phone: Comment on above: Room air 07-09-2013 08:58-0500 SaO2% (BldA) [Mass fraction] 98 % Shilpa Rosales [facility] Work Phone: [facility]; [facility] Work Phone: Comment on above: Room air 07-09-2013 08:58-0500 Weight 76.69 kg Shilpa Rosales [facility] Work Phone: 06-25-2013 08:05-0500 BMI (Body Mass Index) 26.69 kg/m2 Shilpa Velasquezens gian Internal Medicine Work Phone: 06-25-2013 08:05-0500 Body Temperature 97.9 [degF] Shilpa Rosales [facility] Medicine Work Phone: Comment on above: Method: Oral 06-25-2013 08:05-0500 Body weight 77.31 kg Shilpa Rosales [facility] Work Phone: 06-25-2013 08:05-0500 BP Diastolic 70 mm[Hg] Shilpa Rosales [facility] Medicine Work Phone: Comment on above: Patient Position: Sitting; Cuff Location : Left Arm; Cuff Size: Standard 06-25-2013 08:05-0500 BP Systolic 110 mm[Hg] Shilpa Rosales [facility] Medicine Work Phone: Comment on above: Patient Position: Sitting; Cuff Location : Left Arm; Cuff Size: Standard 06-25-2013 08:05-0500 BSA (Body Surface Area) 1.89 m2 [facility]ilpa [facility] Work Phone: 06-25-2013 08:05-0500 Height 170.18 cm Shilpa Rosales [facility] Medicine Work Phone: 06-25-2013 08:05-0500 Pulse (Heart Rate) 66 /min Shilpa Rosales [facility] Medicine Work Phone: Comment on above: Pattern: Regular 06-25-2013 08:05-0500 Pulse Oximetry 98 % Shilpa Rosales [facility] Internal Medicine Work Phone: Comment on above: Room air 06-25-2013 08:05-0500 Respiratory Rate 16 /min Shilpa Rosales [facility] Medicine Work Phone: 06-25-2013 08:05-0500 SaO2% (BldA) [Mass fraction] 98 % Shilpa Rosales [facility] Work Phone: [facility]; [facility] Work Phone: Comment on above: Room air 06-25-2013 08:05-0500 Weight 77.31 kg Shilpa Rosales [facility] Internal Medicine Work Phone: 06-11-2013 08:01-0500 BMI (Body Mass Index) 27.47 kg/m2 Judy Kellerambrose [facility] Work Phone: 06-11-2013 08:01-0500 Body weight 79.55 kg Judy Kellerambrose [facility] Work Phone: 06-11-2013 08:01-0500 BP Diastolic 68 mm[Hg] Judy Garcia [facility] Internal Medicine Work Phone: Comment on above: Patient Position: Sitting; Cuff Location : Left Arm; Cuff Size: Standard 06-11-2013 08:01-0500 BP Systolic 110 mm[Hg] Judy Garcia [facility] Internal Medicine Work Phone: Comment on above: Patient Position: Sitting; Cuff Location : Left Arm; Cuff Size: Standard 06-11-2013 08:01-0500 BSA (Body Surface Area) 1.91 m2 Judy Garcia [facility] Internal Medicine Work Phone: 06-11-2013 08:01-0500 Height 170.18 cm Judy Garcia [facility] Internal Medicine Work Phone: 06-11-2013 08:01-0500 Pulse (Heart Rate) 61 /min Judy Garcia [facility] Internal Medicine Work Phone: Comment on above: Pattern: Regular 06-11-2013 08:01-0500 Pulse Oximetry 98 % Shilpa Rosales [facility] Medicine Work Phone: Comment on above: Room air 06-11-2013 08:01-0500 Respiratory Rate 16 /min Judy Garcia [facility] Internal Medicine Work Phone: Comment on above: Pattern: Unlabored 06-11-2013 08:01-0500 SaO2% (BldA) [Mass fraction] 98 % Judy Garcia [facility]; [facility] Work Phone: Comment on above: Room air 06-11-2013 08:01-0500 Weight 79.55 kg Shilpa Rosales [facility] Medicine Work Phone: 05-31-2013 13:31-0500 BMI (Body Mass Index) 27.47 kg/m2 Kacey Perez RN [facility] Internal Medicine Work Phone: 05-31-2013 13:31-0500 Body Temperature 98.2 [degF] Kacey Perez RN [facility] Internal Medicine Work Phone: Comment on above: Method: Temporal 05-31-2013 13:31-0500 Body weight 79.55 kg Kacey Perez RN [facility] Work Phone: 05-31-2013 13:31-0500 BP Diastolic 74 mm[Hg] Kacey Perez RN [facility] Work Phone: Comment on above: Patient Position: Sitting; Cuff Location : Left Arm; Cuff Size: Standard 05-31-2013 13:31-0500 BP Systolic 122 mm[Hg] Kacey Perez RN [facility] Work Phone: Comment on above: Patient Position: Sitting; Cuff Location : Left Arm; Cuff Size: Standard 05-31-2013 13:31-0500 BSA (Body Surface Area) 1.91 m2 [facility] Work Phone: 05-31-2013 13:31-0500 Height 170.18 cm Kacey Perez RN [facility] Work Phone: 05-31-2013 13:31-0500 Pulse (Heart Rate) 82 /min Kacey Perez RN [facility] Work Phone: Comment on above: Pattern: Regular 05-31-2013 13:31-0500 Pulse Oximetry 97 % Shilpa Rosales [facility] Work Phone: Comment on above: Room air 05-31-2013 13:31-0500 Respiratory Rate 16 /min Kacey Perez RN [facility] Work Phone: Comment on above: Pattern: Unlabored 05-31-2013 13:31-0500 SaO2% (BldA) [Mass fraction] 97 % Kacey Perez RN [facility]; [facility] Work Phone: Comment on above: Room air 05-31-2013 13:31-0500 Weight 79.55 kg Shilpa Rosales [facility] Work Phone: 10-08-2012 12:45-0400 BMI (Body Mass Index) 27.47 kg/m2 Idania Sheridan RN [facility] Work Phone: 10-08-2012 12:45-0400 Body Temperature 98.4 [degF] Idania Sheridan RN [facility] Work Phone: Comment on above: Method: Oral 10-08-2012 12:45-0400 Body weight 79.55 kg Idania Sheridan RN [facility] Work Phone: 10-08-2012 12:45-0400 BP Diastolic 72 mm[Hg] Idania Sheridan RN [facility] Work Phone: Comment on above: Patient Position: Sitting; Cuff Location : Left Arm; Cuff Size: Large 10-08-2012 12:45-0400 BP Systolic 102 mm[Hg] Idania Sheridan RN [facility] Work Phone: Comment on above: Patient Position: Sitting; Cuff Location : Left Arm; Cuff Size: Large 10-08-2012 12:45-0400 BSA (Body Surface Area) 1.91 m2 Idania Sheridan RN [facility] Work Phone: 10-08-2012 12:45-0400 Height 170.18 cm Idania Sheridan RN [facility] Work Phone: 10-08-2012 12:45-0400 Pulse (Heart Rate) 72 /min Idania Sheridan RN [facility] Work Phone: Comment on above: Pattern: Regular 10-08-2012 12:45-0400 Respiratory Rate 18 /min Idania Sheridan RN [facility] Internal Medicine Work Phone: Comment on above: Pattern: Unlabored 10-08-2012 12:45-0400 Weight 79.55 kg Shilpa Rosales [facility] Internal Medicine Work Phone: 09-22-2012 10:13-0500 BMI (Body Mass Index) 27.47 kg/m2 Savana Marmolejo [facility] Internal Medicine Work Phone: 09-22-2012 10:13-0500 Body Temperature 97.5 [degF] Savana Marmolejo [facility] Internal Medicine Work Phone: 09-22-2012 10:13-0500 Body weight 79.55 kg Savana Marmolejo [facility] Internal Medicine Work Phone: 09-22-2012 10:13-0500 BP Diastolic 80 mm[Hg] Savana Marmolejo [facility] Internal Medicine Work Phone: Comment on above: Patient Position: Sitting; Cuff Location : Left Arm; Cuff Size: Standard 09-22-2012 10:13-0500 BP Systolic 110 mm[Hg] Savana Marmolejo [facility] Internal Medicine Work Phone: Comment on above: Patient Position: Sitting; Cuff Location : Left Arm; Cuff Size: Standard 09-22-2012 10:13-0500 BSA (Body Surface Area) 1.91 m2 Savana Marmolejo [facility] Internal Medicine Work Phone: 09-22-2012 10:13-0500 Height 170.18 cm Savana Marmolejo [facility] Internal Medicine Work Phone: 09-22-2012 10:13-0500 Pulse (Heart Rate) 68 /min Savana Marmolejo [facility] Internal Medicine Work Phone: Comment on above: Pattern: Regular 09-22-2012 10:13-0500 Respiratory Rate 16 /min Savana Marmolejo [facility] Internal Medicine Work Phone: Comment on above: Pattern: Unlabored 09-22-2012 10:13-0500 Weight 79.55 kg Shilpa Rosales [facility] Internal Medicine Work Phone: 04-15-2012 09:58-0400 BMI (Body Mass Index) 26.16 kg/m2 [place] Vijaya [facility] Internal Medicine Work Phone: 04-15-2012 09:58-0400 Body Temperature 96.7 [degF] Georgia Lilly [facility] Internal Medicine Work Phone: 04-15-2012 09:58-0400 Body weight 75.75 kg Georgia Lilly [facility] Internal Medicine Work Phone: 04-15-2012 09:58-0400 BP Diastolic 72 mm[Hg] Georgia Lilly [facility] Internal Medicine Work Phone: Comment on above: Patient Position: Sitting; Cuff Location : Left Arm; Cuff Size: Large 04-15-2012 09:58-0400 BP Systolic 102 mm[Hg] [place] Lilly [facility] Internal Medicine Work Phone: Comment on above: Patient Position: Sitting; Cuff Location : Left Arm; Cuff Size: Large 04-15-2012 09:58-0400 BSA (Body Surface Area) 1.87 m2 [place] [facility] Work Phone: 04-15-2012 09:58-0400 Height 170.18 cm [place] Vijaya [facility] Internal Medicine Work Phone: 04-15-2012 09:58-0400 Pulse (Heart Rate) 68 /min [place] [facility] Work Phone: Comment on above: Pattern: Regular 04-15-2012 09:58-0400 Respiratory Rate 16 /min [place] Vijaya [facility] Internal Medicine Work Phone: Comment on above: Pattern: Unlabored 04-15-2012 09:58-0400 Weight 75.75 kg Shilpa Rosales [facility] Internal Medicine Work Phone: 03-16-2012 13:59-0400 BMI (Body Mass Index) 25.22 kg/m2 [place] Diazdayo [facility] Internal Medicine Work Phone: 03-16-2012 13:59-0400 Body Temperature 97.6 [degF] [place] Vijaya [facility] Internal Medicine Work Phone: 03-16-2012 13:59-0400 Body weight 73.03 kg Georgiakieran Lilly [facility] Internal Medicine Work Phone: 03-16-2012 13:59-0400 BP Diastolic 82 mm[Hg] [place] Vijaya [facility] Internal Medicine Work Phone: Comment on above: Patient Position: Sitting; Cuff Location : Left Arm; Cuff Size: Large 03-16-2012 13:59-0400 BP Systolic 114 mm[Hg] [place] Vijaya [facility] Internal Medicine Work Phone: Comment on above: Patient Position: Sitting; Cuff Location : Left Arm; Cuff Size: Large 03-16-2012 13:59-0400 BSA (Body Surface Area) 1.84 m2 [place] Fldotkishore Compreh ensive Internal Medicine Work Phone: 03-16-2012 13:59-0400 Height 170.18 cm [place] Lilly [facility] Work Phone: 03-16-2012 13:59-0400 Pulse (Heart Rate) 88 /min [place] Lilly Comprehensiv e Internal Medicine Work Phone: Comment on above: Pattern: Regular 03-16-2012 13:59-0400 Respiratory Rate 16 /min [place] Lilly [facility] Work Phone: Comment on above: Pattern: Unlabored 03-16-2012 13:59-0400 Weight 73.03 kg Shilpa Rosales [facility] Work Phone: 03-04-2012 12:18-0400 BMI (Body Mass Index) 26.31 kg/m2 Kacey Velasquezens gian Internal Medicine Work Phone: 03-04-2012 12:18-0400 Body Temperature 98.2 [degF] Kacey Perez RN [facility] Work Phone: Comment on above: Method: Oral 03-04-2012 12:18-0400 Body weight 76.2 kg Kacey Perez RN [facility] Work Phone: 03-04-2012 12:18-0400 BP Diastolic 76 mm[Hg] Kacey Perez RN [facility] Work Phone: Comment on above: Patient Position: Sitting; Cuff Location : Left Arm; Cuff Size: Standard 03-04-2012 12:18-0400 BP Systolic 124 mm[Hg] Kacey Perez RN [facility] Work Phone: Comment on above: Patient Position: Sitting; Cuff Location : Left Arm; Cuff Size: Standard 03-04-2012 12:18-0400 BSA (Body Surface Area) 1.88 m2 Kacey Velasqueze nsive Internal Medicine Work Phone: 03-04-2012 12:18-0400 Height 170.18 cm Kacey Perez RN [facility] Work Phone: 03-04-2012 12:18-0400 Pulse (Heart Rate) 82 /min Kacey Perez RN [facility] Work Phone: Comment on above: Pattern: Regular 03-04-2012 12:18-0400 Respiratory Rate 16 /min Kacey Perez RN [facility] Work Phone: Comment on above: Pattern: Unlabored 03-04-2012 12:18-0400 Weight 76.2 kg Shilpa Rosales [facility] Work Phone: 11-27-2011 14:07-0400 BMI (Body Mass Index) 26.31 kg/m2 Lucy Gavin RN Comprehens gian Internal Medicine Work Phone: 11-27-2011 14:07-0400 Body Temperature 97.3 [degF] Lucy Gavin RN [facility] Work Phone: Comment on above: Method: Oral 11-27-2011 14:07-0400 Body weight 76.2 kg Lucy Gavin RN [facility] Work Phone: 11-27-2011 14:07-0400 BP Diastolic 62 mm[Hg] Lucy Gavin RN [facility] Work Phone: Comment on above: Patient Position: Sitting; Cuff Location : Left Arm; Cuff Size: Large 11-27-2011 14:07-0400 BP Systolic 122 mm[Hg] Lucy Gavin RN [facility] Work Phone: Comment on above: Patient Position: Sitting; Cuff Location : Left Arm; Cuff Size: Large 11-27-2011 14:07-0400 BSA (Body Surface Area) 1.88 m2 Lucy Gavin RN Comprehe nsive Internal Medicine Work Phone: 11-27-2011 14:07-0400 Height 170.18 cm Lucy Gavin RN [facility] Work Phone: 11-27-2011 14:07-0400 Pulse (Heart Rate) 76 /min Lucy Gavin RN [facility] Work Phone: Comment on above: Pattern: Regular 11-27-2011 14:07-0400 Respiratory Rate 18 /min Lucy Gavin RN [facility] Work Phone: Comment on above: Pattern: Unlabored 11-27-2011 14:07-0400 Weight 76.2 kg Shilpa Rosales [facility] Internal Medicine Work Phone: 08-07-2011 13:08-0500 BMI (Body Mass Index) 26 kg/m2 [place] Diazdayo Velasquezen sive Internal Medicine Work Phone: 08-07-2011 13:08-0500 Body Temperature 97.6 [degF] [place] Vijaya [facility] Internal Medicine Work Phone: 08-07-2011 13:08-0500 Body weight 75.3 kg [place] Vijaya [facility] Internal Medicine Work Phone: 08-07-2011 13:08-0500 BP Diastolic 62 mm[Hg] [place] Vijaya [facility] Internal Medicine Work Phone: Comment on above: Patient Position: Sitting; Cuff Location : Left Arm; Cuff Size: Large 08-07-2011 13:08-0500 BP Systolic 96 mm[Hg] [place] Vijaya [facility] Internal Medicine Work Phone: Comment on above: Patient Position: Sitting; Cuff Location : Left Arm; Cuff Size: Large 08-07-2011 13:08-0500 BSA (Body Surface Area) 1.87 m2 [place] Vijaya Velasquez ensive Internal Medicine Work Phone: 08-07-2011 13:08-0500 Height 170.18 cm Georgia Lilly [facility] Internal Medicine Work Phone: 08-07-2011 13:08-0500 Pulse (Heart Rate) 76 /min [place] Vijaya Velasquezensiv e Internal Medicine Work Phone: Comment on above: Pattern: Regular 08-07-2011 13:08-0500 Respiratory Rate 16 /min [place] Vijaya [facility] Internal Medicine Work Phone: Comment on above: Pattern: Unlabored 08-07-2011 13:08-0500 Weight 75.3 kg Shilpa Rosales [facility] Internal Medicine Work Phone: 06-12-2011 14:14-0500 BMI (Body Mass Index) 25.69 kg/m2 [place] Lilly [facility] Internal Medicine Work Phone: 06-12-2011 14:14-0500 Body Temperature 98.5 [degF] [place] Lilly [facility] Internal Medicine Work Phone: 06-12-2011 14:14-0500 Body weight 74.39 kg [place] Lilly [facility] Internal Medicine Work Phone: 06-12-2011 14:14-0500 BP Diastolic 80 mm[Hg] [place] Lilly [facility] Internal Medicine Work Phone: Comment on above: Patient Position: Sitting; Cuff Location : Left Arm; Cuff Size: Large 06-12-2011 14:14-0500 BP Systolic 110 mm[Hg] [place] Lilly [facility] Internal Medicine Work Phone: Comment on above: Patient Position: Sitting; Cuff Location : Left Arm; Cuff Size: Large 06-12-2011 14:14-0500 BSA (Body Surface Area) 1.86 m2 [place] Lilly Compreh ensive Internal Medicine Work Phone: 06-12-2011 14:14-0500 Height 170.18 cm [place] Lilly [facility] Internal Medicine Work Phone: 06-12-2011 14:14-0500 Pulse (Heart Rate) 88 /min [place] Lilly Comprehensiv e Internal Medicine Work Phone: Comment on above: Pattern: Regular 06-12-2011 14:14-0500 Respiratory Rate 18 /min [place] Lilly [facility] Internal Medicine Work Phone: Comment on above: Pattern: Unlabored 06-12-2011 14:14-0500 Weight 74.39 kg Shilpa Rosales [facility] Internal Medicine Work Phone: 04-15-2011 14:05-0400 BMI (Body Mass Index) 26.16 kg/m2 [place] [facility] Internal Medicine Work Phone: 04-15-2011 14:05-0400 Body Temperature 97.9 [degF] Gerogia Lilly [facility] Internal Medicine Work Phone: 04-15-2011 14:05-0400 Body weight 75.75 kg [place] Lilly [facility] Internal Medicine Work Phone: 04-15-2011 14:05-0400 BP Diastolic 74 mm[Hg] [place] Lilly [facility] Internal Medicine Work Phone: Comment on above: Patient Position: Sitting; Cuff Location : Left Arm; Cuff Size: Large 04-15-2011 14:05-0400 BP Systolic 110 mm[Hg] [place] Lilly [facility] Internal Medicine Work Phone: Comment on above: Patient Position: Sitting; Cuff Location : Left Arm; Cuff Size: Large 04-15-2011 14:05-0400 BSA (Body Surface Area) 1.87 m2 [place] Lilly [facility] Work Phone: 04-15-2011 14:05-0400 Height 170.18 cm [place] Lilly [facility] Internal Medicine Work Phone: 04-15-2011 14:05-0400 Pulse (Heart Rate) 82 /min [place] [facility] Work Phone: Comment on above: Pattern: Regular 04-15-2011 14:05-0400 Respiratory Rate 16 /min [place] Lilly [facility] Internal Medicine Work Phone: Comment on above: Pattern: Unlabored 04-15-2011 14:05-0400 Weight 75.75 kg Shilpa Rosales [facility] Internal Medicine Work Phone: 08-03-2010 13:55-0500 Body Temperature 97.5 [degF] [place] Lilly [facility] Internal Medicine Work Phone: 08-03-2010 13:55-0500 BP Diastolic 86 mm[Hg] [place] Lilly [facility] Internal Medicine Work Phone: Comment on above: Patient Position: Sitting; Cuff Location : Left Arm; Cuff Size: Standard 08-03-2010 13:55-0500 BP Systolic 120 mm[Hg] [place] Lilly [facility] Internal Medicine Work Phone: Comment on above: Patient Position: Sitting; Cuff Location : Left Arm; Cuff Size: Standard 08-03-2010 13:55-0500 Pulse (Heart Rate) 80 /min [place] Montoyakishore Comprehensiv e Internal Medicine Work Phone: Comment on above: Pattern: Regular 08-03-2010 13:55-0500 Respiratory Rate 16 /min [place] Vijaya [facility] Internal Medicine Work Phone: Comment on above: Pattern: Unlabored 06-25-2010 14:00-0500 Body Temperature 97.8 [degF] [place] Vijaya [facility] Internal Medicine Work Phone: 06-25-2010 14:00-0500 BP Diastolic 64 mm[Hg] [place] Vijaya [facility] Internal Medicine Work Phone: Comment on above: Patient Position: Sitting; Cuff Location : Left Arm; Cuff Size: Large 06-25-2010 14:00-0500 BP Systolic 100 mm[Hg] [place] Vijaya [facility] Internal Medicine Work Phone: Comment on above: Patient Position: Sitting; Cuff Location : Left Arm; Cuff Size: Large 06-25-2010 14:00-0500 Pulse (Heart Rate) 92 /min [place] Montoyakishore Comprehens e Internal Medicine Work Phone: Comment on above: Pattern: Regular 06-25-2010 14:00-0500 Respiratory Rate 18 /min [place] Vijaya [facility] Internal Medicine Work Phone: Comment on above: Pattern: Unlabored 04-12-2010 08:33-0400 Body Temperature 98.2 [degF] MERARI Rober MCGRATH [facility] Internal Medicine Work Phone: Comment on above: Method: Oral 04-12-2010 08:33-0400 Body weight 70.76 kg MERARIBROCK Richter LPN [facility] Internal Medicine Work Phone: 04-12-2010 08:33-0400 BP Diastolic 74 mm[Hg] MERARI Richter LPN [facility] Internal Medicine Work Phone: Comment on above: Patient Position: Sitting; Cuff Location : Left Arm; Cuff Size: Standard 04-12-2010 08:33-0400 BP Systolic 112 mm[Hg] MERARI Richter [facility] Internal Medicine Work Phone: Comment on above: Patient Position: Sitting; Cuff Location : Left Arm; Cuff Size: Standard 04-12-2010 08:33-0400 Pulse (Heart Rate) 74 /min MERARI Richter [facility] Internal Medicine Work Phone: Comment on above: Pattern: Regular 04-12-2010 08:33-0400 Respiratory Rate 18 /min MERARI Richter [facility] Internal Medicine Work Phone: Comment on above: Pattern: Unlabored 04-12-2010 08:33-0400 Weight 70.76 kg Shilpa Rosales [facility] Internal Medicine Work Phone: 02-26-2010 10:35-0400 BMI (Body Mass Index) 23.04 kg/m2 [place] Jalloh [facility] Internal Medicine Work Phone: 02-26-2010 10:35-0400 Body Temperature 97.7 [degF] [place] Lilly [facility] Internal Medicine Work Phone: 02-26-2010 10:35-0400 Body weight 70.76 kg [place] Lilly [facility] Internal Medicine Work Phone: 02-26-2010 10:35-0400 BP Diastolic 82 mm[Hg] [place] Lilly [facility] Internal Medicine Work Phone: Comment on above: Patient Position: Sitting; Cuff Location : Left Arm; Cuff Size: Standard 02-26-2010 10:35-0400 BP Systolic 112 mm[Hg] [place] Lilly [facility] Internal Medicine Work Phone: Comment on above: Patient Position: Sitting; Cuff Location : Left Arm; Cuff Size: Standard 02-26-2010 10:35-0400 BSA (Body Surface Area) 1.86 m2 [facility] Work Phone: 02-26-2010 10:35-0400 Height 175.26 cm [place] Lilly [facility] Internal Medicine Work Phone: 02-26-2010 10:35-0400 Pulse (Heart Rate) 84 /min [place] Lilly Comprehensiv e Internal Medicine Work Phone: Comment on above: Pattern: Regular 02-26-2010 10:35-0400 Respiratory Rate 18 /min [place] Lilly [facility] Work Phone: Comment on above: Pattern: Unlabored 02-26-2010 10:35-0400 Weight 70.76 kg Shilpa Rosales [facility] Internal Medicine Work Phone: 01-01-2010 11:47-0400 Body Temperature 96.2 [degF] [place] Lilly [facility] Internal Medicine Work Phone: 01-01-2010 11:47-0400 Body weight 73.94 kg [place] Lilly [facility] Work Phone: 01-01-2010 11:47-0400 BP Diastolic 86 mm[Hg] [place] Lilly [facility] Work Phone: Comment on above: Patient Position: Sitting; Cuff Location : Left Arm; Cuff Size: Standard 01-01-2010 11:47-0400 BP Systolic 112 mm[Hg] [place] Lilly [facility] Internal Medicine Work Phone: Comment on above: Patient Position: Sitting; Cuff Location : Left Arm; Cuff Size: Standard 01-01-2010 11:47-0400 Pulse (Heart Rate) 72 /min [place] Lilly Comprehensiv e Internal Medicine Work Phone: Comment on above: Pattern: Regular 01-01-2010 11:47-0400 Respiratory Rate 18 /min [place] Lilly [facility] Internal Medicine Work Phone: Comment on above: Pattern: Unlabored 01-01-2010 11:47-0400 Weight 73.94 kg Shilpa Rosales [facility] Internal Medicine Work Phone: 05-22-2009 13:41-0400 Body Temperature 97.5 [degF] [place] Lilly [facility] Internal Medicine Work Phone: Comment on above: Method: Undefined 05-22-2009 13:41-0400 Body weight 73.48 kg [place] Lilly [facility] Internal Medicine Work Phone: 05-22-2009 13:41-0400 BP Diastolic 68 mm[Hg] [place] Lilly [facility] Internal Medicine Work Phone: Comment on above: Patient Position: Sitting; Cuff Location : Right Arm; Cuff Size: Standard 05-22-2009 13:41-0400 BP Systolic 104 mm[Hg] [place] Lilly [facility] Internal Medicine Work Phone: Comment on above: Patient Position: Sitting; Cuff Location : Right Arm; Cuff Size: Standard 05-22-2009 13:41-0400 Head Circumference 0 cm Shilpa Rosales [facility] Internal Medicine Work Phone: 05-22-2009 13:41-0400 Head Occipital-frontal circumference 0 cm [place] Lilly [facility]; [facility] Work Phone: 05-22-2009 13:41-0400 Height 0 cm [place] Lilly [facility] Internal Medicine Work Phone: 05-22-2009 13:41-0400 Pulse (Heart Rate) 88 /min [place] Lilly [facility] Internal Medicine Work Phone: Comment on above: Pattern: Regular 05-22-2009 13:41-0400 Respiratory Rate 18 /min [place] Lilly [facility] Internal Medicine Work Phone: Comment on above: Pattern: Undefined 05-22-2009 13:41-0400 Weight 73.48 kg Shilpa Rosales [facility] Internal Medicine Work Phone: 03-06-2009 13:27-0400 Body Temperature 97.8 [degF] [place] Lilly [facility] Internal Medicine Work Phone: Comment on above: Method: Undefined 03-06-2009 13:27-0400 Body weight 74.84 kg [place] Lilly [facility] Internal Medicine Work Phone: 03-06-2009 13:27-0400 BP Diastolic 78 mm[Hg] [place] Lilly [facility] Internal Medicine Work Phone: Comment on above: Patient Position: Sitting; Cuff Location : Left Arm; Cuff Size: Large 03-06-2009 13:27-0400 BP Systolic 112 mm[Hg] [place] Diazdayo [facility] Internal Medicine Work Phone: Comment on above: Patient Position: Sitting; Cuff Location : Left Arm; Cuff Size: Large 03-06-2009 13:27-0400 Head Circumference 0 cm [facility] Work Phone: 03-06-2009 13:27-0400 Head Occipital-frontal circumference 0 cm [place] Vijaya [facility]; [facility] Work Phone: 03-06-2009 13:27-0400 Height 0 cm [place] Vijaya [facility] Internal Medicine Work Phone: 03-06-2009 13:27-0400 Pulse (Heart Rate) 92 /min [place] Vijaya [facility] Internal Medicine Work Phone: Comment on above: Pattern: Regular 03-06-2009 13:27-0400 Respiratory Rate 16 /min [place] Vijaya [facility] Internal Medicine Work Phone: Comment on above: Pattern: Undefined 03-06-2009 13:27-0400 Weight 74.84 kg [facility] Work Phone: 02-06-2009 11:27-0400 BMI (Body Mass Index) 23.39 kg/m2 Hollie Spencer [facility] Internal Medicine Work Phone: 02-06-2009 11:27-0400 Body weight 73.94 kg [facility] Internal Medicine Work Phone: 02-06-2009 11:27-0400 BP Diastolic 74 mm[Hg] [facility] Internal Medicine Work Phone: Comment on above: Patient Position: Supine; Cuff Location: Left Arm; Cuff Size: Standard 02-06-2009 11:27-0400 BP Systolic 120 mm[Hg] [facility] Internal Medicine Work Phone: Comment on above: Patient Position: Supine; Cuff Location: Left Arm; Cuff Size: Standard 02-06-2009 11:27-0400 BSA (Body Surface Area) 1.91 m2 Hollie Spencer [facility] Work Phone: 02-06-2009 11:27-0400 Head Circumference 0 cm [facility] Internal [facility] Work Phone: 02-06-2009 11:27-0400 Head Occipital-frontal circumference 0 cm [facility] Internal Medicine; [facility] Internal Medicine Work Phone: 02-06-2009 11:27-0400 Height 177.8 cm [facility] Internal Medicine Work Phone: 02-06-2009 11:27-0400 Pulse (Heart Rate) 80 /min [facility] Internal Medicine Work Phone: Comment on above: Pattern: Regular 02-06-2009 11:27-0400 Respiratory Rate 16 /min [facility] Internal Medicine Work Phone: Comment on above: Pattern: Unlabored 02-06-2009 11:27-0400 Weight 73.94 kg Shilpa Rosales [facility] Internal Medicine Work Phone: 10-07-2008 13:10-0400 BMI (Body Mass Index) 23.39 kg/m2 Cammie Ramos [facility] Internal Medicine Work Phone: 10-07-2008 13:10-0400 Body Temperature 95.9 [degF] [facility] Internal Medicine Work Phone: Comment on above: Method: Oral 10-07-2008 13:10-0400 Body weight 73.94 kg [facility] Internal Medicine Work Phone: 10-07-2008 13:10-0400 BP Diastolic 64 mm[Hg] [facility] Internal Medicine Work Phone: Comment on above: Patient Position: Sitting; Cuff Location : Left Arm; Cuff Size: Standard 10-07-2008 13:10-0400 BP Systolic 122 mm[Hg] [facility] Internal Medicine Work Phone: Comment on above: Patient Position: Sitting; Cuff Location : Left Arm; Cuff Size: Standard 10-07-2008 13:10-0400 BSA (Body Surface Area) 1.[address] [facility] Internal Medicine Work Phone: 10-07-2008 13:10-0400 Head Circumference 0 cm [facility] Work Phone: 10-07-2008 13:10-0400 Head Occipital-frontal circumference 0 cm Cammie [facility] Internal Medicine; [facility] Work Phone: 10-07-2008 13:10-0400 Height 177.8 cm Cammie [facility] Internal Medicine Work Phone: 10-07-2008 13:10-0400 Pulse (Heart Rate) 84 /min [facility] Internal Medicine Work Phone: Comment on above: Pattern: Regular 10-07-2008 13:10-0400 Respiratory Rate 18 /min [facility] Internal Medicine Work Phone: Comment on above: Pattern: Unlabored 10-07-2008 13:10-0400 Weight 73.94 kg Shilpa [facility] Internal Medicine Work Phone: 08-22-2008 13:31-0500 Body Temperature 98.2 [degF] [facility] Internal Medicine Work Phone: Comment on above: Method: Oral 08-22-2008 13:31-0500 Body weight 69.85 kg Li [facility] Internal Medicine Work Phone: 08-22-2008 13:31-0500 BP Diastolic 82 mm[Hg] [facility] Internal Medicine Work Phone: Comment on above: Patient Position: Sitting; Cuff Location : Left Arm; Cuff Size: Standard 08-22-2008 13:31-0500 BP Systolic 112 mm[Hg] [facility] Internal Medicine Work Phone: Comment on above: Patient Position: Sitting; Cuff Location : Left Arm; Cuff Size: Standard 08-22-2008 13:31-0500 Head Circumference 0 cm Shilpa [facility] Internal Medicine Work Phone: 08-22-2008 13:31-0500 Head [facility]ipital-[facility] Work Phone: 08-22-2008 13:31-0500 Height 0 cm Li Zhang [facility] Work Phone: 08-22-2008 13:31-0500 Pulse (Heart Rate) 93 /min Li Zhang [facility] Work Phone: Comment on above: Pattern: Regular 08-22-2008 13:31-0500 Pulse Oximetry 100 % Shilpa Rosales [facility] Internal Medicine Work Phone: Comment on above: Room air 08-22-2008 13:31-0500 Respiratory Rate 18 /min Li Zhang [facility] Work Phone: Comment on above: Pattern: Unlabored 08-22-2008 13:31-0500 SaO2% (BldA) [Mass fraction] 100 % Li Zhang [facility]; [facility] Work Phone: Comment on above: Room air 08-22-2008 13:31-0500 Weight 69.85 kg Shilpa Rosales [facility] Work Phone: 06-07-2008 21:55-0500 Body weight 0 kg Libertad A Fast DO Work Phone: [facility] Work Phone: 06-07-2008 21:55-0500 Head Circumference 0 cm Shilpa Rosales [facility] Work Phone: 06-07-2008 21:55-0500 Head Occipital-frontal circumference 0 cm Libertad A Fast DO Work Phone: [facility]; [facility] Work Phone: 06-07-2008 21:55-0500 Height 0 cm Libertad A Fast DO Work Phone: [facility] Work Phone: 06-07-2008 21:55-0500 Pulse (Heart Rate) 88 /min Libertad A Fast DO Work Phone: [facility] Work Phone: Comment on above: Pattern: Regular 06-07-2008 21:55-0500 Weight 0 kg Shilpa Rosales [facility] Work Phone: 06-07-2008 13:47-0500 Body Temperature 97.4 [degF] Georgia Lilly [facility] Internal Medicine Work Phone: Comment on above: Method: Undefined 06-07-2008 13:47-0500 Body weight 0 kg Georgia Lilly [facility] Internal Medicine Work Phone: 06-07-2008 13:47-0500 BP Diastolic 74 mm[Hg] Georgia Lilly [facility] Internal Medicine Work Phone: Comment on above: Patient Position: Sitting; Cuff Location : Left Arm; Cuff Size: Large 06-07-2008 13:47-0500 BP Systolic 108 mm[Hg] Georgia Lilly [facility] Internal Medicine Work Phone: Comment on above: Patient Position: Sitting; Cuff Location : Left Arm; Cuff Size: Large 06-07-2008 13:47-0500 Head Circumference 0 cm Shilpa Rosales [facility] Internal Medicine Work Phone: 06-07-2008 13:47-0500 Head Occipital-frontal circumference 0 cm Georgia Montoyakishore [facility] Internal Medicine; [facility] Work Phone: 06-07-2008 13:47-0500 Height 0 cm Georgia Montoyakishore [facility] Internal Medicine Work Phone: 06-07-2008 13:47-0500 Pulse (Heart Rate) 100 /min [place] [facility] Work Phone: Comment on above: Pattern: Regular 06-07-2008 13:47-0500 Respiratory Rate 16 /min Georgia Diazdayo [facility] Internal Medicine Work Phone: Comment on above: Pattern: Undefined 06-07-2008 13:47-0500 Weight 0 kg Shilpa Rosales [facility] Internal Medicine Work Phone: 03-17-2008 13:35-0400 Body Temperature 98.6 [degF] Lucy Gavin RN [facility] Work Phone: Comment on above: Method: Oral 03-17-2008 13:35-0400 Body weight 0 kg Lucy Gavin RN [facility] Work Phone: 03-17-2008 13:35-0400 BP Diastolic 62 mm[Hg] Lucy Gavin RN [facility] Work Phone: Comment on above: Patient Position: Sitting; Cuff Location : Right Arm; Cuff Size: Standard 03-17-2008 13:35-0400 BP Systolic 100 mm[Hg] Lucy Gavin RN [facility] Work Phone: Comment on above: Patient Position: Sitting; Cuff Location : Right Arm; Cuff Size: Standard 03-17-2008 13:35-0400 Head Circumference 0 cm [facility] Work Phone: 03-17-2008 13:35-0400 Head Occipital-frontal circumference 0 cm Lucy Gavin RN [facility]; [facility] Work Phone: 03-17-2008 13:35-0400 Height 0 cm Lucy Gavin RN [facility] Work Phone: 03-17-2008 13:35-0400 Pulse (Heart Rate) 76 /min Lucy Gavin RN [facility] Work Phone: Comment on above: Pattern: Regular 03-17-2008 13:35-0400 Respiratory Rate 16 /min Lucy Gavin RN [facility] Work Phone: Comment on above: Pattern: Unlabored 03-17-2008 13:35-0400 Weight 0 kg [facility] Internal Medicine Work Phone: 01-04-2008 09:48-0400 Body Temperature 98.2 [degF] MERARI Richter LPN [facility] Work Phone: Comment on above: Method: Oral 01-04-2008 09:48-0400 Body weight 69.85 kg MERARI Richter LPN [facility] Work Phone: 01-04-2008 09:48-0400 BP Diastolic 76 mm[Hg] MERARI Richter LPN [facility] Work Phone: Comment on above: Patient Position: Sitting; Cuff Location : Left Arm; Cuff Size: Standard 01-04-2008 09:48-0400 BP Systolic 114 mm[Hg] MERARI Richter LPN [facility] Internal Medicine Work Phone: Comment on above: Patient Position: Sitting; Cuff Location : Left Arm; Cuff Size: Standard 01-04-2008 09:48-0400 Head Circumference 0 cm Shilpa Rosales [facility] Internal Medicine Work Phone: 01-04-2008 09:48-0400 Head Occipital-frontal circumference 0 cm MERARI Richter STONEWORKING BELT SANDER [facility] Internal Medicine; [facility] Work Phone: 01-04-2008 09:48-0400 Height 0 cm MERARI Richter LPN [facility] Internal Medicine Work Phone: 01-04-2008 09:48-0400 Pulse (Heart Rate) 72 /min MERARI Richter LPN [facility] Internal Medicine Work Phone: Comment on above: Pattern: Regular 01-04-2008 09:48-0400 Respiratory Rate 18 /min MERARI Richter LPN [facility] Internal Medicine Work Phone: Comment on above: Pattern: Unlabored 01-04-2008 09:48-0400 Weight 69.85 kg Shilpa Handynnamdi [facility] Internal Medicine Work Phone: 12-09-2007 16:39-0400 Body Temperature 98.6 [degF] Georgia Fldayo [facility] Internal Medicine Work Phone: Comment on above: Method: Undefined 12-09-2007 16:39-0400 Body weight 0 kg Georgia Lilly [facility] Internal Medicine Work Phone: 12-09-2007 16:39-0400 BP Diastolic 70 mm[Hg] Georgia Lilly [facility] Internal Medicine Work Phone: Comment on above: Patient Position: Sitting; Cuff Location : Right Arm; Cuff Size: Standard 12-09-2007 16:39-0400 BP Systolic 94 mm[Hg] Georgia Vijaya [facility] Internal Medicine Work Phone: Comment on above: Patient Position: Sitting; Cuff Location : Right Arm; Cuff Size: Standard 12-09-2007 16:39-0400 Head Circumference 0 cm Shilpa [facility] Internal Medicine Work Phone: 12-09-2007 16:39-0400 Head Occipital-frontal circumference 0 cm Georgia Lilly [facility] Internal Medicine; [facility] Work Phone: 12-09-2007 16:39-0400 Height 0 cm [place] Vijaya [facility] Work Phone: 12-09-2007 16:39-0400 Pulse (Heart Rate) 72 /min [place] Vijaya [facility] Internal Medicine Work Phone: Comment on above: Pattern: Regular 12-09-2007 16:39-0400 Respiratory Rate 16 /min [place] Lilly [facility] Work Phone: Comment on above: Pattern: Undefined 12-09-2007 16:39-0400 Weight 0 kg Shilpa Handynnamdi [facility] Work Phone: 10-12-2007 13:18-0400 Body Temperature 98.4 [degF] Lucy Gavin RN [facility] Work Phone: Comment on above: Method: Oral 10-12-2007 13:18-0400 Body weight 0 kg Lucy Gavin RN [facility] Work Phone: 10-12-2007 13:18-0400 BP Diastolic 76 mm[Hg] Lucy Gavin RN [facility] Work Phone: Comment on above: Patient Position: Sitting; Cuff Location : Right Arm; Cuff Size: Large 10-12-2007 13:18-0400 BP Systolic 120 mm[Hg] Lucy Gavin RN [facility] Work Phone: Comment on above: Patient Position: Sitting; Cuff Location : Right Arm; Cuff Size: Large 10-12-2007 13:18-0400 Head Circumference 0 cm Shilpa [facility] Internal Medicine Work Phone: 10-12-2007 13:18-0400 Head Occipital-frontal circumference 0 cm Lucy Gavin RN [facility]; [facility] Work Phone: 10-12-2007 13:18-0400 Height 0 cm Lucy Gavin RN [facility] Work Phone: 10-12-2007 13:18-0400 Pulse (Heart Rate) 84 /min Lucy Gavin RN [facility] Work Phone: Comment on above: Pattern: Regular 10-12-2007 13:18-0400 Respiratory Rate 16 /min Lucy Gavin RN [facility] Work Phone: Comment on above: Pattern: Unlabored 10-12-2007 13:18-0400 Weight 0 kg Shilpa Tainnamdi [facility] Internal Medicine Work Phone: 05-27-2007 14:41-0400 BMI (Body Mass Index) 23.04 kg/m2 [place] Jalloh [facility] Internal Medicine Work Phone: 05-27-2007 14:41-0400 Body Temperature 98.3 [degF] Georgia Lilly [facility] Internal Medicine Work Phone: Comment on above: Method: Undefined 05-27-2007 14:41-0400 Body weight 70.76 kg Georgia Lilly [facility] Internal Medicine Work Phone: 05-27-2007 14:41-0400 BP Diastolic 56 mm[Hg] Georgia Lilly [facility] Internal Medicine Work Phone: Comment on above: Patient Position: Sitting; Cuff Location : Left Arm; Cuff Size: Standard 05-27-2007 14:41-0400 BP Systolic 100 mm[Hg] Georgia Lilly [facility] Internal Medicine Work Phone: Comment on above: Patient Position: Sitting; Cuff Location : Left Arm; Cuff Size: Standard 05-27-2007 14:41-0400 BSA (Body Surface Area) 1.86 m2 [facility] Work Phone: 05-27-2007 14:41-0400 Head Circumference 0 cm Shlipa Handymarry [facility] Internal Medicine Work Phone: 05-27-2007 14:41-0400 Head Occipital-frontal circumference 0 cm [place] Thakkar Internal Medicine; [facility] Work Phone: 05-27-2007 14:41-0400 Height 175.26 cm Georgia Lilly [facility] Internal Medicine Work Phone: 05-27-2007 14:41-0400 Pulse (Heart Rate) 88 /min [place] iLlly [employer] Internal Medicine Work Phone: Comment on above: Pattern: Regular 05-27-2007 14:41-0400 Respiratory Rate 16 /min Georgia Lilly [facility] Internal Medicine Work Phone: Comment on above: Pattern: Unlabored 05-27-2007 14:41-0400 Weight 70.76 kg Shilpa Rosales [facility] Internal Medicine Work Phone: 11-19-2006 11:52-0400 BMI (Body Mass Index) 22.15 kg/m2 [facility] Work Phone: 11-19-2006 11:52-0400 Body weight 68.04 kg [facility] Internal Medicine Work Phone: 11-19-2006 11:52-0400 BP Diastolic 62 mm[Hg] [facility] Internal Medicine Work Phone: Comment on above: Patient Position: Sitting; Cuff Location : Left Arm; Cuff Size: Standard 11-19-2006 11:52-0400 BP Systolic 98 mm[Hg] [facility] Internal Medicine Work Phone: Comment on above: Patient Position: Sitting; Cuff Location : Left Arm; Cuff Size: Standard 11-19-2006 11:52-0400 BSA (Body Surface Area) 1.83 m2 celio Spencer [facility] Internal Medicine Work Phone: 11-19-2006 11:52-0400 Head Circumference 0 cm [facility] Work Phone: 11-19-2006 11:52-0400 Head Occipital-frontal circumference 0 cm [facility] Internal Medicine; [facility] Work Phone: 11-19-2006 11:52-0400 Height 175.26 cm [facility] Internal Medicine Work Phone: 11-19-2006 11:52-0400 Pulse (Heart Rate) 60 /min [facility] Internal Medicine Work Phone: Comment on above: Pattern: Regular 11-19-2006 11:52-0400 Weight 68.04 kg Shilpa Rosales [facility] Internal Medicine Work Phone: Encounters Encounter Date Encounter Type Care Provider Facility Start: 01-04-2025 ambulatory Nathan Megan Facility: [facility] Start: 12-28-2024 End: 12-28-[address] Nathan Guzman DO Work Phone: [facility] Work Phone: Start: 12-28-2024 End: 12-28-[address] Nathan Guzman DO -[facility] [place] Work Phone: Start: 12-28-2024 End: 12-28-2024 ambulatory Nathan Megan Facility:[facility] Start: 11-25-2024 End: 11-25-[address] Nathan Guzman DO Work Phone: [facility] Work Phone: Start: 11-25-2024 End: 11-25-2024 Patient encounter procedure Jeyson Galvan NP-C -Laboratory Work Phone: Start: 11-25-2024 End: 11-25-2024 ambulatory Jeyson Galvan NP Facility:[facility] Start: 10-22-2024 End: 10-22-2024 ambulatory Asia Sam RN [facility] Start: 10-22-2024 End: 10-22-2024 Patient encounter procedure Asia Sam RN [facility] Start: 09-23-2024 End: 09-23-[address] Malika Samuels MD -[facility] Work Phone: Start: 09-23-2024 End: 09-23-[address] Nathan Guzman DO Work Phone: [facility] Work Phone: Start: 09-23-2024 End: 09-23-2024 ambulatory [facility] Start: 09-07-2024 ambulatory [facility]: [facility] Start: 08-18-2024 End: 08-18-[address] Nathan Guzman DO -Laboratory, Specimen Work Phone: Start: 08-18-2024 End: 08-18-2024 ambulatory [facility] Facility:[facility] Start: 07-30-2024 End: 08-27-[address] Malika Samuels MD -Cardiac Rehab Work Phone: Start: 07-30-2024 End: 08-27-2024 ambulatory [facility] Facility:[facility] Start: 07-16-2024 End: 07-27-2024 ambulatory [facility] Facility:[facility] Start: 07-16-2024 End: 07-27-[address] Malika Samuels MD -Cardiac Rehab Work Phone: Start: 06-17-2024 End: 06-17-[address] Nathan Guzman DO -Outpatient Breast Imaging Work Phone: Start: 06-17-2024 End: 06-17-2024 ambulatory [facility] Start: 06-16-2024 Encounter for genera l adult medical examination without abnormal findings [facility] Start: 06-14-2024 End: 06-14-2024 ambulatory [facility] Ambulatory Start: 06-14-2024 End: 06-14-2024 Office outpatient visit 15 minutes [facility] DO Work Phone: [facility] Comment on above: Primary osteoarthrit is of both hands (Primary Dx); Psoriasis Start: 05-28-2024 End: 05-28-2024 ambulatory Rose Benitez [facility] Start: 05-28-2024 End: 05-28-2024 Patient encounter procedure Rose Benitez [facility] Start: 05-26-2024 End: 05-27-2024 ambulatory [facility] Facility[facility] Start: 05-25-2024 End: 05-25-2024 ambulatory [facility] Facility:[facility] Start: 05-24-2024 ambulatory Malika Samuels Facility:[facility] Start: 05-24-2024 End: 05-24-2024 ambulatory Jeyson Galvan TODDLER GUIDE Facility:[facility] Start: 05-17-2024 End: 05-17-2024 Telephone encounter Nnamdi Greenwood MD Work Phone: Cardiothoracic Comment on above: Electronic Communica tion Start: 05-10-2024 End: 05-10-2024 Telephone encounter Nnamdi Greenwood MD Work Phone: Cardiothoracic Comment on above: Electronic Communica tion Start: 04-30-2024 End: 04-30-2024 Telephone encounter Nnamdi Greenwood MD Work Phone: Cardiology Comment on above: Patient Question Start: 04-28-2024 End: 04-28-2024 Telephone encounter Nnamdi Greenwood MD Work Phone: Cardiology Comment on above: Post Dc Program Call - Fyi Start: 04-27-2024 End: 04-27-2024 Patient encounter procedure Sam Lerma APRN.FULLING MACHINE OPERATOR Work Phone: Cardiothoracic Comment on above: S/P mitral valve rep air (Primary Dx); Pleural effusion Start: 04-27-2024 End: 04-27-2024 ambulatory Nnamdi GREENWOOD Facility:[facility] Start: 04-27-2024 End: 04-27-2024 Subsequent hospital visit by physician Xr Chest Main J1 Work Phone: Radiology Comment on above: Surgery follow-up [Z 09] Start: 04-26-2024 ambulatory Jeyson Galvan TODDLER GUIDE Facility :[facility] Start: 04-22-2024 End: 04-22-2024 Telephone encounter Jaqui Acuña APRN.FULLING MACHINE OPERATOR Work Phone: Cardiothoracic Start: 04-21-2024 End: 04-21-2024 Telephone encounter Nnamdi Greenwood MD Work Phone: Cardiology Comment on above: Post Dc Program Call - Needs Attn Returning Patient's Call Start: 04-19-2024 End: 04-19-2024 Telephone encounter Josephine MEJIA Comment on above: Follow Up Phone Call (All clear) Start: 04-16-2024 End: 04-16-2024 Orders Only A Igor Greenwood MD Work Phone: Cardiothoracic Comment on above: Surgery follow-up (P rimary Dx) Start: 04-14-2024 End: 04-18-2024 Evaluation and management of inpatient NATHAN GUZMAN Facility:[facility] Start: 04-13-2024 End: 04-13-2024 Admission to same day surgery center Anesthesia Clearance Work Phone: [facility] Work Phone: Start: 04-13-2024 End: 04-13-2024 ambulatory Nnamdi Greenwood MD Work Phone: Cardiothoracic Comment on above: Patient Education Start: 04-13-2024 End: 04-13-[facility]24 [facility] Comment on above: Pre-op exam (Primary Dx) Encounter for preope rative anesthesiology assessment for cardiac surgery (Primary Dx) Nonrheumatic mitral valve regurgitation (Primary Dx) Start: 04-13-2024 End: 04-13-2024 Preprocedural examination done JOSEPH Greenwood MD Work Phone: [facility] Start: 04-12-2024 End: 04-12-2024 ambulatory Nnamdi GREENWOOD Facility:[facility] Start: 04-12-2024 Encounter for preprocedural cardiovascular examination JOSEPH GREENWOOD [facility] Start: 04-12-2024 End: 04-12-2024 ambulatory Nnamdi GREENWOOD Facility:[facility] Start: 04-12-2024 End: 04-12-2024 Patient encounter status Xr J1 Work Phone: [facility] Start: 04-12-2024 End: 04-12-2024 Subsequent hospital visit by physician Xr Chest Main J1 Work Phone: Radiology Comment on above: 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] Start: 04-12-2024 End: 04-12-2024 ambulatory JEYSON HOFF Facility:[facility] Start: 04-12-2024 End: 04-12-2024 Office consultation new/estab patient 60 min Jeyson Hoff MD Work Phone: Cardiology Comment on above: Nonrheumatic mitral valve regurgitation (Primary Dx) Start: 04-09-2024 Preprocedural examin ation done Jeyson Hoff MD Work Phone: [facility] Start: 03-09-2024 Patient encounter status A Radha Greenwood MD Work Phone: [facility] Start: 03-09-2024 Telephone encounter Nnamdi delgado MD Work Phone: Cardiothoracic Comment on above: Insurance Inquiry Referral Information ; Pre-Op CTHO Consult; Cardiac Preop Checklist Start: 03-08-2024 End: 03-08-2024 ambulatory [facility] Facility[facility] Start: 02-27-2024 Telephone encounter Maulik cervantes MD Work Phone: [facility] Comment on above: Future Appointment; Dental Clearance - Open Heart Surgery (Received 02/27/24) Start: 02-27-2024 End: 02-27-2024 [facility] Facility:[facility] Start: 02-25-2024 Telephone encounter Maulik cervantes MD Work Phone: [place] ED MANAGER Comment on above: Preparations For Pro cedures Start: 02-24-2024 End: 02-24-2024 Patient encounter procedure Maulik Mitchell MD Work Phone: [facility] Comment on above: Nonrheumatic mitral valve regurgitation (Primary Dx) Start: 02-24-2024 End: 02-24-2024 ambulatory MAULIK MITCHELL Facility:[facility] Start: 02-18-2024 Telephone encounter Maulik cervantes MD Work Phone: [facility] Comment on above: Consult (FAXED REFER RAL) Start: 02-16-2024 Telephone encounter Naomy Thomas MD Work Phone: [facility] Comment on above: Patient Update Start: 02-16-2024 End: 02-16-2024 ambulatory Jeyson Ana Cole ABREU Facility:[facility] Start: 02-12-2024 End: 04-15-2024 Telephone encounter Naomy Thomas MD Work Phone: [facility] Comment on above: Preparations For Pro cedures Start: 01-23-2024 Telephone encounter Naomy Thomas MD Work Phone: [facility] Comment on above: Results Start: 01-12-2024 [facility] Start: 01-12-2024 End: 01-12-2024 [facility]ulatory [facility] Facility[facility] Start: 01-09-2024 End: 01-09-2024 Patient encounter procedure Troy Byrd APRN.CNP Work Phone: [facility] [place] Comment on above: Supraventricular tac hycardia (HCC) (Primary Dx); Intermittent palpitations; Heart murmur; Nonrheumatic mitral (valve) prolapse; Essential (primary) hypertension Start: 01-09-2024 End: 01-09-2024 ambulatory TROY BYRD [facility] Start: 12-25-2023 Telephone encounter Naomy Thomas MD Work Phone: [facility] [place] Comment on above: Preparations For Pro cedures Start: 11-21-2023 End: 11-21-[address] Nathan Guzman Work Phone: [facility] Work Phone: Start: 11-21-2023 End: 11-21-[address] Nathan Guzman Work Phone: [facility]-Laboratory, Specimen Work Phone: Start: 11-20-2023 End: 11-20-2023 Emergency department patient visit Dr. Nathan Guzman Work Phone: [facility]-Emergency Department Work Phone: Start: 10-09-2023 End: 10-09-[address] Nathan Guzman Work Phone: [facility] Work Phone: Start: 08-25-2023 End: 08-26-2023 ambulatory NATHAN [facility] Start: 08-25-2023 End: 08-25-2023 ambulatory [facility] Start: 06-26-2023 Telephone encounter Naomy Thomas MD Work Phone: [facility] Start: 06-10-2023 ambulatory CHA FLEMING MD Facility:A Start: 05-12-2023 End: 05-12-[address] Nathan Guzman Work Phone: [facility] Work Phone: Start: 05-12-2023 End: 05-12-[address] Nathan Guzman Work Phone: [facility]-Outpatient Breast Imaging Work Phone: Start: 04-07-2023 End: 04-07-[address] 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 Nathan Guzman Work Phone: [facility] Work Phone: Start: 01-09-2023 End: 01-09-[address] Nathan Guzman Work Phone: [facility] Start: 01-09-2023 Chart Update Nathan ash Work Phone: [facility] 2500 DO Work Phone: Start: 01-06-2023 ambulatory DO RUDY Ash MUOH Facility:[id number] Start: 01-06-[address] Nathan Guzman Facility:[id number] Start: 01-02-2023 End: 01-02-[address] Nathan Guzman Work Phone: [facility] Start: 12-31-2022 Non-patient / Non-visit Dr. Kevan Guzman Work Phone: [facility] Start: 12-26-2022 End: 12-26-[address] Nathan Guzman Work Phone: [facility] Start: 12-24-2022 End: 12-25-2022 Emergency department patient visit Dr. Nathan Guzman Work Phone: [facility]-Emergency Department Start: 12-18-2022 End: 12-18-2022 Emergency department patient visit Dr. Nathan Guzman Work Phone: [facility]-Emergency Department Start: 12-10-2022 Non-patient / Non-visit Dr. Kevan Guzman Work Phone: [facility] Start: 12-06-2022 End: 12-06-[address] Nathan Guzman Work Phone: [facility] Start: 12-03-2022 Non-patient / Non-visit Dr. Kevan Guzman Work Phone: [facility] Start: 12-03-2022 End: 12-03-[address] Nathan Guzman Work Phone: [facility] Work Phone: Start: 12-03-2022 End: 12-03-[address] Nathan Guzman Work Phone: [facility]-Cardiovascular Services Start: 11-29-2022 End: 11-29-[address] Nathan Guzman Work Phone: [facility] Start: 11-25-2022 End: 11-25-[address] Nathan Guzman Work Phone: [facility] Start: 11-18-2022 End: 11-18-[address] Nathan Guzman Work Phone: [facility]-Laboratory, Specimen Start: 11-11-2022 End: 11-11-[address] Nathan Guzman Work Phone: [facility] Work Phone: Start: 11-11-2022 End: 11-11-[address] Nathan Guzman Work Phone: [facility]-Laboratory Start: 11-11-2022 End: 11-11-2022 Admission to same day surgery center Dr. Nathan Guzman Work Phone: [facility] Start: 11-11-2022 End: 11-11-[address] Nathan Guzman Work Phone: [facility] Start: 11-08-2022 End: 11-08-[address] Nathan Guzman Work Phone: [facility]-Laboratory, Specimen Start: 11-07-2022 Non-patient / Non-visit Dr. Kevan Guzman Work Phone: [facility] Start: 11-04-2022 Non-patient / Non-visit Dr. Kevan Guzman Work Phone: [facility] Start: 11-04-[address] Anabela Guzman Work Phone: [facility] Start: 08-23-2022 End: 08-23-[address] Nathan Guzman Work Phone: [facility] Start: 07-23-2022 End: 07-23-[address] Nathan Guzman Work Phone: [facility] Start: 06-29-2022 End: 06-29-[address] Nathan Guzman Work Phone: [facility] Work Phone: Start: 06-29-2022 End: 06-29-[address] Nathan Guzman Work Phone: [facility] Start: 06-25-2022 End: 06-25-[address] Nathan Guzman Work Phone: [facility] Work Phone: Start: 06-25-2022 End: 06-25-[address] Nathan Guzman Work Phone: [facility]-Laboratory Start: 06-25-2022 End: 06-25-[address] Nathan Guzman Work Phone: [facility] Start: 06-05-[address] Nathan Guzman Work Phone: [facility]-Physical Therapy Start: 05-30-2022 End: 05-30-[address] Nathan Guzman Work Phone: [facility] Work Phone: Start: 05-30-2022 End: 05-30-[address] Nathan Guzman Work Phone: [facility] Start: 05-07-2022 End: 05-07-2022 ambulatory TODDLER GUIDE-C Shilpa Rosales TODDLER GUIDE Work Phone: [facility] Work Phone: Start: 05-07-2022 End: 05-07-2022 Patient encounter procedure TODDLER GUIDE-C Shilpa Rosales TODDLER GUIDE Work Phone: [facility]-Outpatient Breast Imaging Start: 05-03-2022 Registered Recurring TODDLER GUIDE-C Shilpa Rosales TODDLER GUIDE Work Phone: [facility]-Physical Therapy Start: 05-01-2022 Non-patient / Non-visit TODDLER GUIDE-C Anabela Rosales TODDLER GUIDE Work Phone: [facility]-W[facility] Start: 05-01-2022 End: 05-01-2022 Admission to same day surgery center TODDLER GUIDE-C Shilpa Rosales TODDLER GUIDE Work Phone: [facility]-Endoscopy Start: 05-01-2022 End: 05-01-2022 ambulatory TODDLER GUIDE-C Shilpa Taia TODDLER GUIDE Work Phone: [facility] Work Phone: Start: 04-26-2022 End: 04-26-2022 Patient encounter procedure TODDLER GUIDE-C Shilpa Rosales TODDLER GUIDE Work Phone: [facility] Start: 04-19-2022 End: 04-19-2022 ambulatory TODDLER GUIDE-C Shilpa Taia TODDLER GUIDE Work Phone: [facility] Work Phone: Start: 04-19-2022 End: 04-19-2022 Patient encounter procedure TODDLER GUIDE-C Shilpa Rosales TODDLER GUIDE [facility] Start: 04-18-2022 End: 04-18-2022 Patient encounter procedure TODDLER GUIDE-C Shilpa Taia TODDLER GUIDE Work Phone: [facility] Start: 04-13-2022 End: 04-13-2022 Emergency department patient visit TODDLER GUIDE-C Shilpa Taia TODDLER GUIDE Work Phone: [facility]-Emergency Department Start: 04-05-2022 End: 04-05-2022 Patient encounter procedure TODDLER GUIDE-C Shilpa Taia TODDLER GUIDE Work Phone: [facility] Start: 03-28-2022 End: 03-28-2022 ambulatory TODDLER GUIDE-C Shilpa Taia TODDLER GUIDE Work Phone: [facility] Work Phone: Start: 03-28-2022 End: 03-28-2022 Patient encounter procedure TODDLER GUIDE-C Shilpa Taia TODDLER GUIDE Work Phone: [facility]-Laboratory, Specimen Start: 03-27-2022 End: 03-27-2022 ambulatory TODDLER GUIDE-C Shilpa Taia TODDLER GUIDE Work Phone: [facility] Work Phone: Start: 03-27-2022 End: 03-27-2022 Patient encounter procedure TODDLER GUIDE-C Shilpa Taia TODDLER GUIDE Work Phone: [facility]-Laboratory Start: 03-13-2022 End: 03-13-2022 Patient encounter procedure TODDLER GUIDE-C Shilpa Taia TODDLER GUIDE Work Phone: [facility]-Laboratory Start: 01-31-2022 End: 01-31-2022 Patient encounter procedure TODDLER GUIDE-C Shilpa Taia TODDLER GUIDE Work Phone: [facility]-Nuclear Medicine, [facility] Start: 01-16-2022 End: 01-16-2022 Patient encounter procedure TODDLER GUIDE-C Shilpa Ciesa TODDLER GUIDE Work Phone: [facility]-Laboratory Start: 01-14-2022 End: 01-14-2022 Patient encounter procedure TODDLER GUIDE-C Shilpa Rosales TODDLER GUIDE Work Phone: [facility] Start: 09-19-2021 End: 09-19-2021 Patient encounter procedure TODDLER GUIDE-C Shilpa Rosales TODDLER GUIDE Work Phone: [facility] Start: 04-03-2021 End: 04-03-2021 Annotation/Addendum Shilpa Rosales FULLING MACHINE OPERATOR Work Phone: [facility] Start: 03-26-2021 End: 03-26-2021 Periodic preventive med est patient 40-64yrs Shilpa Rosales FULLING MACHINE OPERATOR Work Phone: [facility] Start: 03-23-2021 End: 03-23-2021 Office outpatient visit 10 minutes Shilpa Rosales FULLING MACHINE OPERATOR Work Phone: [facility] Start: 03-14-2021 End: 03-14-2021 Annotation/Addendum Shilpa Rosales FULLING MACHINE OPERATOR Work Phone: [facility] Start: 03-13-2021 End: 03-13-2021 Office outpatient visit 25 minutes Shilpa Rosales FULLING MACHINE OPERATOR Work Phone: [facility] Start: 04-04-2020 End: 04-04-2020 Lab Order Shilpa Rosales [facility] Officer [facility] Start: 03-24-2020 End: 03-24-2020 Office outpatient visit 15 minutes Shilpa Rosales [facility] Start: 02-28-2020 End: 02-28-2020 Periodic preventive med est patient 40-64yrs Shilpa Connie [facility] Start: 07-07-2019 End: 07-07-2019 Annotation/Addendum Shilpa Rosales [facility] Start: 06-28-2019 End: 06-28-2019 Office outpatient visit 15 minutes Shilpa Rosales [facility] Start: 06-16-2018 End: 06-16-2018 Periodic preventive med est patient 40-64yrs Shilpa Connie [facility] Start: 04-13-2018 End: 04-13-2018 Periodic preventive med est patient 40-64yrs Shilpa [facility] Start: 05-05-2017 End: 05-05-2017 Periodic preventive med est patient 40-64yrs Shilpa [facility] Start: 03-07-2017 End: 03-07-2017 Office outpatient visit 15 minutes Shilpa [facility] Start: 04-12-2016 End: 04-12-2016 Lab Order Shilpa Thakkar [employer] Operations Officer al Medicine Start: 04-05-2016 End: 04-05-2016 Periodic preventive med est patient 40-64yrs Shilpa [facility] Start: 05-15-2015 End: 05-15-2015 Office outpatient visit 25 minutes Shilpa [facility] Start: 02-10-2015 End: 02-10-2015 Office outpatient visit 15 minutes Shilpa [facility] Start: 10-24-2014 End: 10-24-2014 Phone Encounter Shilpa Thak[facility] [employer] Operations Officer [facility] Medicine Start: 10-03-2014 End: 10-03-2014 Office outpatient visit 15 minutes Shilpa [facility] Start: 09-26-2014 End: 09-26-2014 Phone Encounter Shilpa Thakkar [employer] Operations Officer al Medicine Start: 09-26-2014 End: 09-26-2014 Office outpatient visit 15 minutes Shilpa [facility] Start: 05-16-2014 End: 05-16-2014 Office outpatient visit 15 minutes Shilpa [facility] Start: 05-11-2014 End: 05-11-2014 Office outpatient visit 25 minutes Shilpa [facility] Start: 12-08-2013 End: 12-08-2013 Phone Encounter Shilpa Thakkar [employer] Operations Officer al Medicine Start: 12-08-2013 End: 12-08-2013 Phone Encounter Shilpa Thakkar [employer] Operations Officer al Medicine Start: 12-07-2013 End: 12-07-2013 Patient encounter procedure Shilpa [facility] Start: 10-15-2013 End: 10-17-2013 Patient encounter procedure Shilpa [facility] Start: 07-09-2013 End: 07-09-2013 Office outpatient visit 15 minutes Shilpa [facility] Start: 07-02-2013 End: 07-02-2013 Office outpatient visit 15 minutes Shilpa [facility] Start: 06-11-2013 End: 06-12-2013 Patient encounter procedure Shilpa hTakkar [facility] Start: 06-01-2013 End: 06-01-2013 Annotation/Addendum Shilpa Rosales [employer] Officer al Medicine Start: 05-31-2013 End: 05-31-2013 Office outpatient visit 15 minutes Shilpa Tainnamdi [facility] Start: 10-28-2012 End: 10-28-2012 Phone Encounter Shilpa Rosales [employer] Operations Officer al Medicine Start: 10-19-2012 End: 10-19-2012 Phone Encounter Shilpa Rosales [employer] Operations Officer [facility] Medicine Start: 2012 End: 2012 Phone Encounter Shilpa Rosales [employer] Officer [facility] Medicine Start: 10-08-2012 End: 10-08-2012 Patient encounter procedure Shilpa Tainnamdi [facility] Start: 09-22-2012 End: 09-22-2012 Patient encounter procedure Shilpa Tainnamdi [facility] Start: 09-04-2012 End: 09-04-2012 Phone Encounter Shilpa Rosales [employer] Officer al Medicine Start: 04-15-2012 End: 04-15-2012 Patient encounter procedure Shilpa Handykathiennamdi [facility] Start: 03-17-2012 End: 03-17-2012 Phone Encounter Shilpa Rosales [employer] Officer [facility] Medicine Start: 03-16-2012 End: 03-16-2012 Phone Encounter Shilpa Rosales [employer] Operations Officer al Medicine Start: 03-16-2012 End: 03-16-2012 Patient encounter procedure Shilpa Tainnamdi [facility] Start: 03-04-2012 End: 03-05-2012 Patient encounter procedure Shilpa Tainnamdi [facility] Start: 11-27-2011 End: 11-28-2011 Patient encounter procedure Shilpa Zairennamdi [facility] Start: 08-07-2011 End: 08-07-2011 Patient encounter procedure Shilpa Tainnamdi [facility] Start: 06-12-2011 End: 06-12-2011 Patient encounter procedure Shilpa Tainnamdi [facility] Start: 04-15-2011 End: 04-15-2011 Patient encounter procedure 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 [facility] Start: 08-03-2010 End: 08-06-2010 Patient encounter procedure Shilpa Zairennamdi [facility] Start: 06-25-2010 End: 06-25-2010 Patient encounter procedure Shilpa Handykathiennamdi [facility] Start: 04-12-2010 End: 04-12-2010 Patient encounter procedure Shilpa [facility] Start: 02-26-2010 End: 02-26-2010 Patient encounter procedure Shilpa Rosales [facility] Start: 01-26-2010 End: 01-26-2010 Phone Encounter Shilpa Rosales [employer] Officer [facility] Medicine Start: 01-01-2010 End: 01-01-2010 Patient encounter procedure Shilpa Rosales [facility] Start: 05-22-2009 End: 05-22-2009 Patient encounter procedure Shilpa Rosales [facility] Start: 03-06-2009 End: 03-06-2009 Patient encounter procedure Shilpa Rosales [facility] Start: 02-06-2009 End: 02-06-2009 Patient encounter procedure Shilpa Rosales [facility] Start: 10-07-2008 End: 10-09-2008 Patient encounter procedure Shilpa Rosales [facility] Start: 08-22-2008 End: 08-22-2008 Erroneous Entry Shilpa Rosales [employer] Officer [facility] Medicine Start: 08-22-2008 End: 08-22-2008 Office outpatient visit 40 minutes Shilpa Tainnamdi [facility] Start: 06-07-2008 End: 06-07-2008 Patient encounter procedure Shilpa Rosales [facility] Start: 03-17-2008 End: 03-17-2008 Patient encounter procedure Shilpa Rosales [facility] Start: 01-04-2008 End: 01-04-2008 Office outpatient visit 25 minutes Shilpa Tainnamdi [facility] Start: 12-09-2007 End: 12-10-2007 Patient encounter procedure Shilpa Rosales [facility] Start: 10-12-2007 End: 10-12-2007 Patient encounter procedure Shilpa Rosales [facility] Start: 05-29-2007 End: 05-29-2007 Historical Summary Shilpa Rosales [employer] Officer [facility] Start: 05-27-2007 End: 05-28-2007 Patient encounter procedure Shilpa Rosales [facility] Start: 02-26-2007 End: 02-26-2007 Historical Summary Shilpa Rosales [employer] Officer [facility] Start: 11-19-2006 End: 11-19-2006 Patient encounter procedure Shilpa Rosales [facility] Start: 11-14-2006 End: 11-14-2006 Historical Summary Shilpa Rosales [facility] Start: 10-14-2006 End: 10-14-2006 Historical Summary Shilpa Tainnamdi [facility] Patient encounter status Andrew Stewart LPN [facility]; [facility] Work Phone: Comment on above: has had hyst but one ovary remains Patient encounter status Adelaide Alvarenga LP N [facility]; [facility] Work Phone: Comment on above: has had hyst but one ovary remains Physical examination Andrew Stewart STONEWORKING BELT SANDER Com [facility]; [facility] Work Phone: Physical examination Andrew Stewart STONEWORKING BELT SANDER Com prehens[facility]; [facility] Work Phone: Physical examination Adelaide Alvarenga STONEWORKING BELT SANDER Co [facility]; [facility] Work Phone: Procedures Date Procedure Procedure Detail Performing Clinician Start: 12-28-2024 Iadna-dna/rna gi pthgn multiplex probe tq 6-11 Dr. Nathan Guzman DO Work Phone: Start: 12-28-[address] Nathan Guzman DO Work Phone: Start: 12-28-[address] Nathan Guzman DO Work Phone: Start: 12-28-[address] Nathan Guzman DO Work Phone: Start: 08-18-[address] Nathan Guzman DO Work Phone: Start: 06-17-[address] Nathan Guzman DO Work Phone: Start: 04-27-2024 Radiologic exam chest 2 views A Igor Greenwood MD Work Phone: Start: 04-16-2024 Echocardiography JOSEPH GREENWOOD Start: 04-12-2024 Echocardiography JOSEPH GREENWOOD Start: 04-12-2024 CTA CHEST/ABD/PEL (GATED) W IVCON A Igor Greenwood MD Work Phone: Start: 04-12-2024 Antibody screen JOSEPH GREENWOOD Comment on above: Order Comment: Specimen Type: BLOOD SPEC IMENOrdering Facility: [facility] Address: [address] [place] [address] Performed By: #### T [id number] ####CC MAIN BLOOD BANKCLIA [id number] [address] [place] Start: 04-12-2024 Radiologic exam chest 2 views Nnamdi Greenwood MD Work Phone: Start: 01-09-2024 Ecg routine ecg w/least 12 lds w/i&r Troy Byrd APRN.FULLING MACHINE OPERATOR Work Phone: Start: 11-21-[address] Nathan Guzman Work Phone: Start: 08-25-2023 C-reactive protein NATHAN GUZMAN Start: 08-25-2023 CBC W Auto Differential panel - Blood NATHAN GUZMAN Start: 08-25-2023 Comprehensive metabolic 2000 panel - Serum or Plasma NATHAN GUZMAN Start: 08-25-2023 SEDIMENTATION RATE, AUTOMATED NATHAN GUZMAN Start: 08-25-2023 VITAMIN D 25-HYDROXY,TOTAL NATHAN GUZMAN Start: 05-12-[address] Nathan Guzman Work Phone: Start: 01-15-2023 Ecg routine ecg w/least 12 lds w/i&r Naomy Thomas MD Work Phone: Start: 06-29-2022 MRI of joint of lower extremity Dr. Nathan Guzman Work Phone: Start: 05-07-2022 Screening mammography TODDLER GUIDE-C Shilpa Rosales TODDLER GUIDE Work Phone: Start: 05-01-2022 End: 05-01-2022 Colonoscopy TODDLER GUIDE-C Shilpa Rosales TODDLER GUIDE Work Phone: Start: 04-19-2022 Computed tomography of abdomen and pelvis with contrast TODDLER GUIDE-C Shilpa Rosales TODDLER GUIDE Work Phone: Start: 04-13-2022 Radiologic examination of knee TODDLER GUIDE-C Shilpa Rosales TODDLER GUIDE Work Phone: Start: 01-31-2022 Radionuclide gastric emptying study TODDLER GUIDE-C Shilpa Rosales TODDLER GUIDE Work Phone: Start: 09-19-2021 Radiologic examination of knee TODDLER GUIDE-C Shilpa Rosales TODDLER GUIDE Work Phone: Start: 09-19-2021 End: 09-19-2021 Knee 4 or More Views Comments: See Note; NOTES: [facility] Radiology [address] [place] [address] Knee 4 or More Views MR#: [id number] Acct: [id number] Name: CAMMIE BHAT Rep #: [id number] : 1970 F 50 From: Harshal De Leon MD PCP: NADYA Trinidad Status: DEP AMB Study: Knee 4 or More Views Date of Exam: 09/19/21 Exam# [id number] Ordering Dr: Shon Bray STUDY: X-RAY - RIGHT KNEE REASON FOR EXAM: Female, 50 years old. Knee pain. TECHNIQUE: 4 view(s) of the knee. COMPARISON: None. FINDINGS: Normal visualized distal femur. Normal visualized proximal tibia and fibula. Normal proximal tibiofibular articulation. Mild medial, lateral and patellofemoral compartment arthrosis. The soft tissue structures are unremarkable. ___ RAD/Knee 4 or More Views IMPRESSION: Mild tricompartmental arthrosis. No acute finding. 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: Signed Shilpa Rosales Work Phone: Start: 09-19-2021 End: 09-20-2021 Orthopedic Visit Report Comments: See Note; NOTES: [facility] Sports Medicine [address] [place] [address] OFFICE VISIT Date of Service: 09/19/21 MR#: [id number] Acct: [id number] Name: CAMMIE BHAT Rep #: [id number] : 1970 Provider: AGUS Bray Age/Sex: 50/F Location: [facility] Status: Signed Intake Intake Visit Reasons: RIGHT KNEE Chief Complaint: right knee Allergies hydrocodone [From Vicodin] Allergy (Verified 05/15/21 10:35) Nausea Penicillins [PCN] Allergy (Verified 05/15/21 10:35) Hives Medications desvenlafaxine succinate 50 mg PO QHS 11/18/15 [History Confirmed 09/19/21] rizatriptan 10 mg tablet 10 mg PO PRN PRN 02/09/21 [History Confirmed 09/19/21] topiramate 50 mg tablet 75 mg PO QHS tab 02/09/21 [History Confirmed 09/19/21] secukinumab 150 mg/mL subcutaneous syringe 150 mg SUBCUT Q4W 09/19/21 [History Confirmed 09/19/21] [facility] Medical History (Updated 09/20/21 @ 16:12 by Shon GOLDSMITH, AGUS) Alcohol use Anemia Arthritis Attention-deficit hyperactivity disorder, unspecified type Cardiology follow-up encounter Cervical radiculopathy Depression Drug overdose, multiple drugs Elevated liver enzymes Excessive bleeding Former smoker History of echocardiogram History of edema History of ganglion cyst History of hiatal hernia History of rheumatic fever History of stress test History of suicide attempt History of vomiting Hx of diarrhea Leg cramps Loss of consciousness Migraine headache Migraines Nonrheumatic mitral (valve) prolapse Psoriasis Pure hypercholesterolemia, unspecified Restless legs Rheumatic fever without heart involvement Tension-type headache, unspecified, not intractable Wears glasses Surgical History (Updated 05/01/21 @ 13:34 by Lilia Valiente) History of esophagogastroduodenoscopy (EGD) History of hysterectomy Hx of colonoscopy Hx of foot surgery Hx of rotator cuff surgery Hx of tonsillectomy Hx of tubal ligation Family History Sister No problems noted. 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 CAMMIE BHAT is a 50 year old F here today for right knee pain that she has been having for about 1 month but has worsened over the last 2 weeks. Denies any injury. She has generalized knee pain that is a tightness/stiff feeling in the knee. She Has been taking NSAID and Tylenol for the pain without relief. She has also tried heat without relief. She states that she has recently started cocentex for her Psoriatic arthritis but this has not been helpful with the right knee pain. Denies numbness, tingling or other associated symptoms. Denies any past surgery or injections of the right knee. She has good ROM but has increased pain with flexion. She also notes grinding over her knee. Ortho Exam Right Knee Skin/Wound: No erythema, No ecchymosis and No swelling Knee ROM: Yes ROM-Extension -20 to 0 and Yes ROM-Flexion 0-140 Examination: No Med jt line tenderness, No Lat jt line tenderness, No TTP inf pole patella, Yes Crepitus, No Pain with flexion, No Pain with extention, No Daria's Test, Yes Esposito's (Evident crepitus as well as pain and resistance), No TTP Patellar tendon, No TTP Pes Anserine and No Illiotibial band tenderness Stability: NML: Anterior Drawer, NML: Posterior Drawer, NML: Valgus 0 and NML: Varus 0 Patella Grind: Yes KNEE: Patient has no acute abnormalities aspect the knee. No localized generalized swelling no evident effusions. She has good range of motion symmetric to the left knee. She does not have any reproducible joint line tenderness today Or any pains with flexion or extension. Her ACL, PCL, and collateral ligaments appear intact but lacks her discomfort today. She has no evident signs of acute meniscal pathology. Patient does have very evident patellar crepitus/grinding as well as pain and resistance with Liam's. This really is the only positive/reproducible finding on physical exam today. She has soft compartments of the lower extremity, no calf tenderness, and a negative Homans. She has normal sensation to light touch. Coding Level of Care Code Off vis,est,level 3 Diagnoses Right knee pain M25.561 Patellofemoral syndrome, right M22.2X1 Assessment and Plan Assessment and Plan (1) Right knee pain: Status: Acute (2) Patellofemoral syndrome, right: Status: Acute Orders: Orders: Knee 4 or More Views 09/19/21 M25.561 Plan - AGUS Ochoa: Patient presents the office today with right knee pain for about the past month. There is no injury or acute onset of the pain. She states that they just sort of gradually started and progressed. She notices pains worse as she is going up and down stairs or if she goes from sit to stand. She states that she has a lot of feeling of grinding in the knee. Her physical exam today though shows no major joint line tenderness and ligamentous structures to be intact. She does have very evident reproducible patellofemoral syndrome. I do think that this corresponds with what she describes and feels. Radiographs taken today do show some evidence of mild to moderate arthritis in both the medial lateral joint line (no major dominating side). At this time we did discuss anatomy physiology as well as pathophysiology of her symptoms. We did discuss treatment options which include oral anti-inflammatories, injections, and physical therapy. At this time patient would like to proceed with physical therapy. She can do ice and an ykxr-bdl-invakuy anti-inflammatory as needed. She can return with continued pain for possible injection of the knee. Notify of any new injuries, increasing pain, or any other signs or symptoms. This note was generated with Stere[employer]ot dictation software. It may contain incorrect words, spelling, and punctuation that were not noted in checking the note before signing. 09/20/21 8906 <Electronically signed by Shon GOLDSMITH> Date ___ Shon GOLDSMITH Cosigner Signature: Date ___ (if applicable) CC: Shilpa Rosales Work Phone: Start: 05-15-2021 End: 05-23-2021 Operative Report Comments: See Note; NOTES: [facility] Medical Records Department [address] [place] [address] Operative Report 05/15/21 1336 MR#: [id number] Acct: [id number] Name: CAMMIE BHAT Rep #: [id number] : 1970 50 From: Nasra Sandhu MD PCP: Shilpa Rosales TODDLER GUIDE-C Status:REG [facility] Location: [place] [address] Report of Operation Date of Procedure: 05/15/21 Pre-Operative Diagnosis: abnormal gallbladder ultrasound, nausea and emesis Post-Operative Diagnosis: same Surgery/Procedure Performed:: laparoscopic cholecystectomy with cholangiograms Description of Surgical Findings:: probable chronic cholecystitis Surgeon: Nasra Sandhu fbi field agent: Casey Trejo Type of Anesthesia: General Anesthesiologist: Ben Gerber Specimen's removed: gallbladder and contents Estimated Blood Loss (mL): < 10 ml Fluids Replaced: 1600 ml RL Description of Procedure: After informed consent was given, the patient was brought to the Operating Room. Appropriate time out protocol was followed. The patient was placed in the supine position. The patient was then placed under general endotracheal anesthesia by the anesthesia provider. The abdomen was then prepped with a sterile surgical skin preparation and sterile surgical drapes were placed. The infraumbilical skin fold was grasped with penetrating clamps and the skin and subcutaneous tissues were infiltrated with 0.25% marcaine with epinephrine. A skin incision was then made with a 15 blade scalpel. The anterior abdominal wall was elevated and a Veress needle was carefully inserted into the intraabdominal cavity. It was checked to be in the proper position with a normal saline drop test. A CO2 pneumoperitoneum was then created. Once this was achieved, then the Veress needle was removed and an 11mm trocar was placed in its stead. A 10mm laparoscope was then inserted into the trocar and careful attention was directed to the intraabdominal contents. There was no evidence of injury to any intraabdominal organs from insertion of the Veress needle or the trocar. Under direct visualization, a 5mm subxiphoid trocar and two lateral 5mm right subcostal trocars were placed. The skin and subcutaneous tissues at these sites were infiltrated with 0.25% marcaine with epinephrine prior to placement of these trocars. Attention was then directed to the right upper quadrant of the abdomen. Graspers were placed in the lateral trocars to grasp the distal aspect of the gallbladder and direct it cephalad and to grasp the gallbladder at Velasquez?s pouch and direct it laterally. Dissection then began on the proximal gallbladder continuing down to the area of the triangle of Calot to bluntly dissect out the cystic duct. The neck of the gallbladder was identified and blunt dissection continued to dissect out a segment of the cystic duct. A clip was then placed on the neck of the gallbladder. A small ductotomy was then made. A Ranfac catheter was brought in through a separate skin incision and placed into the cystic duct. An intraoperative cholangiogram was performed under fluoroscopy. The xray revealed no lesions in the common bile duct, arborization of the biliary tree, and good flow into the duodenum. The Ranfac catheter was then removed and two clips were placed proximal to the ductotomy and the cystic duct was then transected. The cystic artery was visualized and bluntly isolated and then two clips were placed proximally and one clip distally and then it was transected between the proximal and distal clips. The gallbladder was then from the liver bed using electrocautery. Once from the liver bed, it was brought out via the umbilical port in an Endobag. It was then forwarded to pathology for analysis. The liver bed was carefully examined. There was no evidence of bile leakage or bleeding. The cystic duct stump and cystic artery stump had their clips intact and there was no evidence of bile leakage or bleeding. The remainder of the abdomen was grossly normal. The CO2 was released and all trocars removed intact. The periumbilical fascia was approximated with a akcddt-fo-yxtmg 0 vicryl suture. All skin incision were closed with 4-0 monocryl in a subdermal fashion. Cavilol and Steristrips were used to reinforce the skin closure. Sterile dressings were applied to all wounds. Sponge, needle and instrument count was verified and correct at time of skin closure. The patient was extubated and brought to the Recovery Room in stable condition. Complications none noted Admit VTE Documentation VTE Present on Admission: Yes VTE Mechan Device Prophylaxis: SCD's 05/15/21 0421 <Electronically signed by Nasra Sandhu MD> Cosigner Signature (if applicable): CC: TODDLER GUIDEKaren Rosales; Dr. Az Miller MD; Dr. Nasra Sandhu MD Signed Shilpa Rosales CNP Work Phone: Start: 05-15-2021 End: 05-18-2021 Cholangiogram/ O R,Initial Comments: See Note; NOTES: [facility] Imaging Services [address] [place] [address] Cholangiogram/ O R,Initial MR#: [id number] Acct: [id number] Name: CAMMIE BHAT Rep #: [id number] : 1970 F 50 From: Geoff linares MD PCP: NADYA Trinidad Status: [facility] Study: Cholangiogram/ O R,Initial Date of Exam: 05/15 Exam# [id number] Ordering Dr: Nasra Sandhu MD STUDY: LAPAROSCOPIC CHOLECYSTECTOMY. REASON FOR EXAM: Female, 50 years old. LAP ANALI FLUOROSCOPY TIME (if supplied): ( 2.6 seconds ) minutes/seconds. One image was submitted. TECHNIQUE: An intraoperative cholangiogram was performed by the surgeon. Imaging was submitted. COMPARISON: None. ___ FINDINGS: The common bile duct is not dilated. No intraluminal filling defect is seen. There is free flow of contrast into the duodenum. ___ RAD/Cholangiogram/ O R,Initial IMPRESSION: Unremarkable intraoperative cholangiogram. Electronically Signed: Geoff Andrew MD at 14:31 EDT , Service support , CC: NADYA Rosales; Dr. Nasra Sandhu MD Poultry Farm Laborer: Signed Shilpa Rosales CNP Work Phone: Start: 05-15-2021 End: 05-23-2021 Discharge Instruction Comments: See Note; NOTES: [facility] Medical Records Department [address] [place] [address] Instructions for Home/Discharge Instructions 05/15/21 1244 MR#: [id number] Acct: [id number] Name: CAMMIE BHAT Rep #: [id number] : 1970 50 From: Nasra Sandhu MD PCP: Shilpa Rosales NP-C Status:REG [facility] Discharge Instructions Follow Up Care Test Results: Test results from this visit will be discussed in further detail at your follow-up appointment, if applicable. Discharge Plan Admission Attending Provider: Nasra Sandhu Primary Care Provider: Shilpa Rosales NP Consulting Providers: Az Miller Instructions Additional Instructions / Restrictions: Recommended pain control regimen - May take 600 mg ibuprofen (Motrin) and then in 3-4 hours, may take 650 mg acetaminophen (Tylenol), then in 3-4 hours may take 600 mg ibuprofen, then in 3-4 hours may take 650 mg acetaminophen and so on for 2-3 days May take narcotic pain medication for pain that is not controlled by above and at night for comfort through the night Leave dressings in place May shower, do not scrub in the areas of the dressings as they may unravel. Do not soak - no tub baths/swimming Ice applied to areas of discomfort may help No lifting/pushing/pulling greater than 20 pounds for two weeks. Regular diet as tolerated, drink plenty of fluids. Avoid carbonated beverages for a few days as this will cause abdominal bloating and thus discomfort after our surgery. Please call my office for an appointment to see me in 1-2 weeks. Office number is If any questions, please call my office at and ask the wastewater treatment plant operator for the general surgery nurses desk Discharge Orders/Prescriptions Prescriptions: New oxycodone 5 mg capsule 5 mg PO Q8H PRN (Reason: pain) 5 Days Qty: 14 RF: 0 No Action rizatriptan [Maxalt] 10 mg tablet 10 mg PO PRN PRN (Reason: MIGRAINES) RF: 0 topiramate 50 mg tablet 75 mg PO QHS RF: 0 desvenlafaxine succinate 25 MG tablet extended release 24 hr 50 mg PO QHS RF: 0 Stelara 45 mg/0.5 mL Solution 45 mg SUBCUT .Q3MO RF: 0 Referrals / Follow Up: Shilpa Rosales NP, TODDLER GUIDE-C [Primary Care Provider] - Disposition Disposition (needs filled in before D/C Order can be placed): Home, Self Care 05/15/21 1402<Electronically signed by Nasra Sandhu MD>Nasra Sandhu MD CC: TODDLER GUIDE-C Shilpa Rosales; Dr. Az Miller MD Signed Shilpa Rosales [facility] Work Phone: Start: 05-14-2021 End: 05-18-2021 12 Lead EKG Comments: See Note; NOTES: [facility] Cardiovascular Services [address] [place] [address] 12 Lead EKG 05/14/21 1312 MR#: [id number] Acct: [id number] Name: CAMMIE BHAT Rep #: [id number] : 1970 50 From: Roger Dietz MD Attending Dr: Dr. Nasra Sandhu MD Status: PRE SD C Ordering Dr: Az Miller MD Date: 05/14/21 Location: [facility] Sex: F C Admitted: Test Reason : PRE OP Blood Pressure : / mmHG Vent. Rate : 104 BPM Atrial Rate : 104 BPM P-R Int : 144 ms QRS Dur : 080 ms QT Int : 344 ms P-R-T Axes : 061 -51 040 degrees QTc Int : 452 ms Sinus tachycardia Left anterior fascicular block Abnormal ECG Confirmed by ROGER DIETZ MD ([id number]), health editor ATILIO ESCOBEDO ([id number]) on 05/15/2021 9:27:07 AM Referred By: Nasra Sandhu Confirmed By:ROGER DIETZ MD 05/15/21 1669 Date ___ Roger Dietz MD CC: TODDLER GUIDE-C Shilpa Rosales; Dr. Az Miller MD; Dr. Nasra Sandhu MD Signed Shilpa Rosales FULLING MACHINE OPERATOR Work Phone: Start: 05-07-2021 End: 05-23-2021 History and Physical Exam Comments: See Note; NOTES: [facility] Medical Records Department [address] [place] [address] History Physical Exam 05/07/21 0810 MR#: [id number] Acct: [id number] Name: CAMMIE BHAT Rep #: [id number] : 1970 50 From: Nasra Sandhu MD PCP: SAM TrinidadC Status:PRE [facility] Location: [place] History and Physical Date of Admission: 05/08/21 HISTORY AND PHYSICAL ? Cammie Bhat 1970 ? REFERRING PHYSICIAN: Shilpa Rosales CNP ? CHIEF COMPLAINT: abdominal pain ? HPI: The patient is a 50 year old female presents with chronic intermittent emesis and abnormal findings on gallbladder ultrasound. SHe notes epigastric and RUQ abdominal pain She denies fevers. She denies nausea prior to emesis. She states that she would have several episodes of emesis in a week. She would sometimes note throat burning and tightening and then would have an episode of emesis. Episodes are not related to meals or activity, it could occur any time of the day. She also notes fecal urgency after eating meals. Emesis would be solid food and/or liquid. She denies difficulties in swallowing. She denies blood in emesis. She denies heartburn and acid indigestion. She denies abdominal bloating. She states that she feels OK after emesis. RUQ US 03/20/2021 - gallbladder wall measures 3mm. There is a negative sonographic Cruz's signs. There is no pericholecystic fluid. There are no gallstones. Sludge is seen within the gallbladder lumen ? PAST MEDICAL HISTORY ? Migraine ? ? Psoriasis ? ? Psoriatic arthritis (HCC) ? PAST SURGICAL HISTORY ? FOOT SURGERY HX Left ? ? bone removed from foot ? HYSTERECTOMY HX ? ? ? adenomyosis, with right oophorectomy ? TONSILLECTOMY HX ? ? ? Current Outpatient Medications STELARA 45 mg/0.5 mL sub-Q syringe ? DESVENLAFAXINE SUCCINATE (PRISTIQ ORAL) Take by mouth. topiramate (TOPAMAX) 25 mg tablet Take 50 mg by mouth once daily. ADALIMUMAB (HUMIRA PEN SUBCUTANEOUS) Inject subcutaneously. (Patient not taking: Reported on 03/30/2021 ALLERGIES: Penicillins ? PERSONAL HISTORY: ? Smoking status: Former Smoker ? ? Packs/day: 0.50 ? ? Years: 5.00 ? ? Pack years: 2.50 ? ? Types: Cigarettes ? ? Quit date: 10/04/1995 ? ? Years since quittin.5 ? Smokeless tobacco: Never Used Vaping Use ? Vaping Use: Never used Substance Use Topics ? Alcohol use: Yes ? ? Comment: social ? Drug use: Never FAMILY HISTORY Hyperlipidemia Mother ? Fibromyalgia Mother ? Heart disease Mother ? Prostate Cancer Father ? Arthritis Father ? Heart disease Sister ? Fibromyalgia Sister ? Hyperlipidemia Sister ? Hypertension Sister ? Hyperlipidemia Brother ? Hypertension Brother ? ? REVIEW OF SYSTEMS: General: The patient denies fatigue, denies weight loss, denies weight gain, denies feeling hot, and denies feelings of cold. Eyes: The patient denies glaucoma, denies eye injury/surgery, does not wear glasses or contacts. Ear/Nose/Throat: The patient denies allergies, denies hayfever, denies ear infections, and denies bloody noses. Cardiovascular: The patient denies chest pain, denies heart disease, denies high blood pressure,denies cardiac stent, denies prior heart attack, denies irregular heart beat, notes high cholesterol, denies poor circulation, denies heart failure, other cardiac issues, denies claudication, denies cold feet, denies peripheral arterial stent. Respiratory: The patient denies tuberculosis, denies pneumonia, denies frequent cough, denies pulmonary embolism, denies shortness of breath, and denies coughing up blood. Gastrointestinal: See HPI. Kidney/Bladder: The patient denies kidney stones, denies urine infections, and denies bloody urine. Skin: The patient denies a history of skin cancer, denies bleeding/changing moles, and denies a history of skin rash. Neurologic: The patient denies a history of epilepsy/convulsions, denies headaches, denies head/spinal injuries, and denies stroke/TIA. Psychiatric: The patient denies psychiatric medications, denies depression, and denies voices, denies substance abuse. Endocrine: The patient denies thyroid disorders, denies diabetes, and denies hormonal problems. Hematologic: The patient denies a history of bruising, denies bleeding, and denies anemia, denies blood clots. Infections: The patient denies a history of measles and mumps, notes rheumatic fever, and denies sexually transmitted diseases. Musculoskeletal: The patient denies back pain/injury, denies back problems, denies sciatica, denies knee/foot trouble, denies arthritis, or denies gout. When was patient's last Mammogram screening? 02/2020 Last Colonoscopy: Unknown Cammie Hewitt RN PHYSICAL EXAMINATION: General: The patient is 50 year old female, well nourished, well hydrated in no acute distress. The patient is oriented to time, place, and person. VITALS: Blood pressure 124/88, pulse 115, temperature 36.6 ?C (97.8 ?F), height 172.7 cm (5' 8), weight 86.6 kg (191 lb), SpO2 98 %. Body mass index is 29.04 kg/m?. Head ? Normocephalic. EOM intact with sclera clear and no icterus noted. Neck - supple with no jugular venous distention noted. Trachea is midline. Lungs ? clear to auscultation. Normal breath sounds. No rales/rhonchi/wheezing noted. No labored breathing noted, such as retractions. No cough heard. Heart ? normal S1 and S2 auscultated. No rubs/clicks/murmurs noted. Regular rate. Abdomen ? soft and benign. Normal bowel sounds. Extremities ? no calf tenderness noted. No pitting edema noted. Skin ? normal skin integrity. Neurological ? gait normal, no focal deficits noted. Psych ? calm and appropriate ? RADIOLOGIC STUDIES: As Noted ? IMPRESSION: chronic intermittent emesis, abnormal gallbladder ultrasound ? PLAN: I have discussed the above with the patient. I have offered the patient the procedure of laparoscopic cholecystectomy, possible cholangiograms. I have explained the procedure to the patient. I have counseled the patient as to the risks of the procedure, including but not limited to: infection, bleeding, injury to any blood vessels/nerves, scar tissue, injury to any intraabdominal organs, injury to kidney/ureters, injury to bowel/bladder, injury to the common bile duct/biliary tree, bile leakage, intraabdominal abscess/bleeding, hernias at incisional sites, wound infections, possible open procedure, complications of anesthesia, postoperative pneumonia/cardiac problems/blood clots etc. the patient understands. I have answered all questions to the patient?s satisfaction and the patient has no further questions. Diagnoses: (R11.11) Vomiting without nausea, intractability of vomiting not specified, unspecified vomiting type (primary encounter diagnosis) (R93.2) Abnormal gallbladder ultrasound ?? Nasra Sandhu MD 05/14/21 0749 <Electronically signed by Nasra Sandhu MD> Cosigner Signature (if applicable): CC: TODDLER GUIDE-C Shilpa Rosales; Dr. Nasra Sandhu MD Signed Shilpa Rosales FULLING MACHINE OPERATOR Work Phone: Start: 04-03-2021 End: 04-03-2021 SCRN MAMM (CAD)W/EMETERIO BILAT Comments: See Note; NOTES: [facility] Imaging Services [address] [place] [address] SCRN MAMM (CAD)W/EMETERIO BILAT MR#: [id number] Acct: [id number] Name: CAMMIE BHAT Rep #: [id number] : 1970 F 50 From: Geoff linares MD PCP: NADYA Trinidad Status: REG [facility] Study: SCRN MAMM (CAD)W/EMETERIO BILAT Date of Exam: 02/14 Exam# [id number] Ordering Dr: Shilpa Rosales NP TODDLER GUIDE-Leonardo MAMMOGRAPHY - BILATERAL SCREENING REASON FOR EXAM: Female, 50 years old. Routine annual screening examination. PERTINENT HISTORY: Non-contributory. Remote left needle breast biopsy. TECHNIQUE: Digital bilateral breast emeterio (3D mammographic acquisition) in the CC and MLO projections. 2-D mediolateral oblique (MLO) and craniocaudad (CC) views of both breasts were obtained. CAD: Full Field Digital Mammography with Computer Added Detection was performed. COMPARISON: Comparison is made with prior examination in 03/20/2020 and 09/25/2017. ___ FINDINGS: Breast Composition: There are scattered areas of fibroglandular density. There are no dominant masses or suspicious calcifications. Stable benign-appearing bilateral axillary lymph nodes. No other significant abnormalities are identified. There has been no significant change since the prior study. ___ BI/SCRN MAMM (CAD)W/EMETERIO BILAT IMPRESSION: Stable bilateral screening mammogram. Yearly follow-up mammogram recommended. (A) ___ ASSESSMENT CATEGORY: BIRADS Category 2: Benign. A letter regarding these results will be sent to the patient by the facility within 30 days. Approximately 10% of breast cancers are not detected by mammography. A normal mammogram should not delay biopsy of a clinically suspicious abnormality. [id number] Electronically Signed: Geoff Andrew MD at 13:57 EDT , Service support , CC: NADYA Rosales Poultry Farm Laborer: Signed Shilpa Rosales [facility] Work Phone: Start: 03-20-2021 End: 03-20-2021 Liver Comments: See Note; NOTES: [facility] Imaging Services [address] [place] [id number] Liver MR#: [id number] Acct: [id number] Name: CAMMIE BHAT Rep #: [id number] : 1970 F 50 From: Geoff linares MD PCP: NADYA Trinidad Status: [facility] CLI Study: Liver Date of Exam: 03/20/21 Exam# [id number] Ordering Dr: Shilpa Rosales NP STUDY: ABDOMINAL ULTRASOUND - RIGHT UPPER QUADRANT REASON FOR VISIT: Female, 50 years old ELEVATED LIVER ENZYMES TECHNIQUE: Ultrasound evaluation of the right upper quadrant was performed with real-time and static rodriguez-scale imaging. TECHNICAL QUALITY: Adequate. COMPARISON: None. ___ FINDINGS: Liver: The liver measures 15.9 cm. There is increased echogenicity consistent with fatty infiltration. The bile ducts are within normal limits. There is hepatic color flow. The direction of portal flow is hepatopetal. There is no demonstrated mass lesion. Gallbladder: Normal distended gallbladder. The gallbladder wall measures 3 mm. There is a negative sonographic Cruz''s sign. There is no pericholecystic fluid. There are no gallstones. Sludge is seen within the gallbladder lumen. Common Bile Duct (C.B.D.): The common bile duct measures 4 mm. Pancreas: Normal size of the head, body and tail of the pancreas. There is increased echogenicity of the pancreas. There is no demonstrated pancreatic mass or cyst. Right Kidney: Normal size of the right kidney. The right kidney measures 10.2 cm x 4.5 cm x 4.6 cm. Normal renal cortex. The right cortex measures 1.3 cm. There is no demonstrated renal mass or cyst. There is no right hydronephrosis. ___ US/Liver IMPRESSION: Fatty infiltration of the liver. Small amount of sludge is seen within the gallbladder lumen. Electronically Signed: Geoff Andrew MD at 11:05 EDT , Service support , CC: NADYA Rosales P[employer] Farm Laborer: Signed Shilpa Rosales [facility] Work Phone: Start: 06-05-2020 End: 06-05-2020 Shoulder min 2 Views Comments: See Note; NOTES: [facility] Radiology [address] [place] [address] Shoulder min 2 Views MR#: [id number] Acct: [id number] Name: CAMMIE BHAT Rep #: [id number] : 1970 F 49 From: Geoff ilnares MD PCP: NADYA Trinidad Status: DEP AMB Study: Shoulder min 2 Views Date of Exam: 06/05/20 Exam# [id number] Ordering Dr: Shon Bray STUDY: X-RAY - RIGHT SHOULDER REASON FOR EXAM: Female, 49 years old. PAIN IN RIGHT SHOULDER. NO KNOWN RECENT INJURY. TECHNIQUE: 4 view(s) of the shoulder. COMPARISON: None. ___ FINDINGS: Normal glenohumeral articulation. Normal acromioclavicular joint. Normal acromion. Normal humeral head and visualized proximal humerus. The soft tissue structures are unremarkable. Normal visualized pulmonary apex. ___ RAD/Shoulder min 2 Views IMPRESSION: Normal x-ray examination of the shoulder. Electronically Signed: Geoff Andrew, at 15:54 EST , Service support , CC: NADYA Rosales; AGUS Bray Poultry Farm Laborer: Signed Shilpa Rosales Start: 06-05-2020 End: 06-05-2020 Orthopedic Visit Report Comments: See Note; NOTES: [facility] [address] [place] [address] OFFICE VISIT Date of Service: 06/05/20 MR#: [id number] Acct: [id number] Name: JOSECAMMIE Elizabeth Rep #: [id number] : 1970 Provider: AGUS Bray Age/Sex: 49/F Location: [facility].JANETTE Status: Signed with Addenda ADDENDUM by Grace Buchanan on 06/05/20 at 4258 OFFICE PROCEDURES Office Procedure Documentation entered by Grace Buchanan 06/05/20 15:14: Kenalog 40 mg/mL suspension for injection (triamcinolone acetonide) 80 mg intra-articular ONCE Injections Yes Subacromial Injection Right Details: Obtained consent for injection. Under sterile conditions, injected the patients right subacromial joint with a 10cc cocktail of 8cc bupivacaine and 2cc kenalog. The patient tolerated the injection well without any noted complication. Patient should call our office if redness develops, pain worsens or if they have any concerns. Office Meds Kenkeli Performing Provider: AGUS Ochoa Administered by: Grace Bucahnan on 06/05/20 15:13 Dose Route Admin Location Lot Number Expiration Date NDC Manufactu rer 80 mg intra-articular right subacromial inj [id number] 04/27/21 0914-2861-08 [facility] 06/05/20 1514 <Electronically signed by Grace Buchanan > Date ___ Grace Buchanan cc: * Signed Intake Vital Signs 06/05/20 Height 5 ft 8.5 in 06/05/20 Weight: 190 lb 06/05/20 BMI 28.4 Intake Visit Reasons: RIGHT SHOULDER Is patient in pain?: Yes Allergies Penicillins [PCN] Allergy (Verified 06/05/20 13:19) Hives Medications Topiramate [Topamax] 100 mg PO QHS 05/30/13 [History Confirmed 06/05/20] Desvenlafaxine Succinate [Pristiq ER] 50 mg PO QHS 11/18/15 [History Confirmed 06/05/20] Adalimumab [Humira] 40 mg SQ Q14D 01/23/17 [History Confirmed 06/05/20] PFSH Social History (Updated 06/05/20 @ 14:06 by AGUS Ochoa) Smoking Status: Current every day smoker HPI RIGHT SHOULDER: Details: Parts of this documentation were recorded by a scribe, this documentation accurately reflects the service provided and the decisions made by , AGUS Tirado 06/05/20 1311. CAMMIE BHAT is a 49 year old F here today for right shoulder pain. Patient notes that she has had right shoulder pain for many years. Patient denies any recent injury. She states that her pain worsened over he last 5-6 days. Patient notes that she has pain over her entire shoulder and radiates into her upper arm. She has limited shoulder range of motion due to pain. Patient notes that she has increased pain with getting dressed or reaching for items. Patient states that she has not had any recent injections or physical therapy. Her last xrays were in October 2018. She denies any recent MRI. Patient notes that 2 days ago she noticed her entire right hand started getting tingling and numb. Patient denies any cervical spine pain. Patient denies any pain management. ROS Musc Reports joint pain, Reports limited joint movement, Reports numbness, Reports tingling Skin/Breast Reports system reviewed and no additional complaints, except as docu Neuro Yes system reviewed and no additional complaints, except as docu, Yes numbness, Yes tingling Ortho Exam Right Shoulder Skin/Wound: No ecchymosis, No erythema, No swelling Testing: Positive Hawkin's, Neer's, AROM-Forward Elevation 0-180, AROM-External Rotation at side 0- 60 and lift off; negative Speed's, TTP Biceps, TTP AC Joint, Drop Arm, Yergason's, Apprehension Test, Sulcus Sign, empty can or [place] Internal Rotation: Tip of Scapula SHOULDER: Patient has no abnormalities on inspection of the right shoulder. Patient does have full range of motion symmetric to the left side the same time she does have some discomfort getting towards the end of motion especially with abduction, internal rotation, and forward elevation. She has evident impingement signs in the rotator cuff. She does have good strength against resistance. She does have a lot of cracking/grinding with range of motion. She has normal sensation.extremity normal distal pulses. Assessment Plan Problems 1. Impingement syndrome of right shoulder M75.41 Plan Patient presents the office today with right shoulder pain. Patient states that she has had shoulder pain for many years and even was signed up for an arthroscopy back in 2017. She states that everything was going okay in the past couple of weeks she has noticed the pain started to return a little bit. There was no injury or anything new that she can think of. Physical exam findings today are suggestive of rotator cuff impingement as she has good range of motion and strength making the likelihood of full-thickness tear is less at this time. We did also discuss options which include doing nothing, oral anti-inflammatories, injections, and/or physical therapy. Patient states she would like to have an injection at this time. Risks and benefits of the injection were discussed with patient and all of her questions were answered. Consent was signed in office today. Injection was then given under normal sterile fashion into the right subacromial space using a posterior approach. Contents of the syringe were delivered without any resistance at all and patient tolerated procedure with minimal discomfort. No complications were observed. Patient was also given a prescription for physical therapy that she can go to work on strengthening of the rotator cuff. Patient return our office following physical therapy or if she has any new injuries, increased pain, swelling, and/or any other signs or symptoms. This note was generated with Scanntechation software. It may contain incorrect words, spelling, and punctuation that were not noted in checking the note before signing. Orders Orders: Shoulder min 2 Views Today M25.511 Coding Level of Care Code Attention Castro Diagnoses Impingement syndrome of right shoulder M75.41 Comment CPT???97015???injection/aspirati on into a major joint/bursa 06/05/20 1406 <Electronically signed by Shon GOLDSMITH> Date ___ Shon GOLDSMITH Cosigner Signature: Date ___ (if applicable) CC: Shilpa Rosales Start: 03-20-2020 End: 03-20-2020 SCREEN MAMM (CAD) W/EMETERIO BILAT Comments: See Note; NOTES: [facility] Imaging Services [address] [place] [address] SCREEN MAMM (CAD) W/EMETERIO BILAT MR#: [id number] Acct: [id number] Name: JOSECAMMIE Rep #: [id number] : 1970 F 49 From: Geoff linares MD PCP: NADYA Trinidad Status: [facility] Study: SCREEN MAMM (CAD) W/EMETERIO BILAT Date of Exam: 0 03/20/20 Exam# [id number] Ordering Dr: Shilpa Rosales [employer] GUIDE-C MAMMOGRAPHY - BILATERAL SCREENING REASON FOR EXAM: Female, 49 years old. Routine annual screening examination. PERTINENT HISTORY: Non-contributory. Remote left breast needle biopsy. TECHNIQUE: Digital bilateral breast emeterio (3D mammographic acquisition) in the CC and MLO projections. 2-D mediolateral oblique (MLO) and craniocaudad (CC) views of both breasts were obtained. CAD: Full Field Digital Mammography with Computer Added Detection was performed. COMPARISON: Comparison is made with prior study dated 09/25/2017 and 04/10/2016. ___ FINDINGS: Breast Composition: There are scattered areas of fibroglandular density. There are no dominant masses or suspicious calcifications. Stable benign-appearing bilateral axillary lymph nodes. A tissue clip marker is once again seen in the deep mid medial portion of the left breast. No other significant abnormalities are identified. There has been no significant change since the prior study. ___ BI/SCREEN MAMM (CAD) W/EMETERIO BILAT IMPRESSION: Stable bilateral screening mammogram. Yearly follow-up mammogram recommended. (A) ___ ASSESSMENT CATEGORY: BIRADS Category 2: Benign. A letter regarding these results will be sent to the patient by the facility within 30 days. Approximately 10% of breast cancers are not detected by mammography. A normal mammogram should not delay biopsy of a clinically suspicious abnormality. [id number] Electronically Signed: Geoff Andrew, at 13:54 EDT , Service support , CC: NADYA Rosales Poultry Farm Laborer: Signed Shilpa Rosales Work Phone: Start: 04-26-2019 End: 04-26-2019 Emergency Department Summary Comments: See Note; NOTES: [facility] Medical Records Department [address] [place] [address] Emergency Department Summary 04/26/19 0057 MR#: [id number] Acct: [id number] Name: CAMMIE BHAT Rep #: [id number] : 1970 48 From: Noam Morris MD PCP: NADYA Trinidad Status: REG ER History of Present Illness Chief Complaint: Cold Sx Informant: Patient Onset: Days Context: Gradual Onset Timing: Continuous Current Severity: Moderate Maximum Severity: Moderate Narrative: The patient presents to the emergency department with cough and shortness of breath. Patient states that she is had upper respiratory symptoms for almost a week. She went to urgent care on Friday. At that point, she was diagnosed with an upper respiratory infection. She was started on Tessalon Perles and doxycycline. She states she is been taking medications as prescribed. She states she feels like her symptoms are not improving and are getting worse. She had a persistent cough. She denies any productive sputum. She does not think she had fever, but has had some chills. The patient does have a history of psoriatic arthritis. She does get Humira injections every 2 weeks, but has not had received them recently because of her illness. She denies chest pain or orthopnea. She denies any history of underlying lung disease but does smoke. Prior similar symptoms: No Recent Illness/Hospitalization: No Past Medical History - Allergies and Home Meds Allergies/Adverse Reactions: Allergies Penicillins [PCN] Allergy (Verified 05/14/17 13:00) Kelly Primary Care Physician: Shilpa Rosales NP-C [Primary Care Provider] - Prior records reviewed: Yes Past Medical History: - - Psoriatic arthritis Surgical History: hysterectomy, tonsillectomy, - Smoking Status: Current some day smoker - Family History Maternal Family History: Reports: - - Thyroid disease. Osteoarthritis Paternal Family History: Reports: Hypertension Sibling Family History: Reports: Hypertension Review of Systems General: Reports: Chills Eyes: Denies: Visual changes - bilaterally, Diplopia ENT: Denies: Rhinorrhea, Sore throat Cardiovascular: Denies: Chest pain, Palpitations Respiratory: Reports: Dyspnea, Cough Gastrointestinal: Denies: Abdominal pain, Nausea, Vomiting, Diarrhea, Melena, Hematochezia Genitourinary: Denies: Dysuria, Hematuria, Frequency Musculoskeletal: Denies: Back pain, Extremity Pain Skin: Denies: Rash, Wounds Neurological: Denies: Headache, Weakness, Numbness Physical Exam Inital Vital Signs reviewed: Yes General: Well nourished, Well developed, No Acute Distress Head: Normocephalic, Atraumatic Eyes: Perrl, EOMI ENT: Moist mucous membranes, No rhinorrhea Neck: Supple, Nontender Cardiovascular: Regular rate, Regular rhythm, No murmurs Respiratory: No distress, Chest nontender, Wheezing, Decreased Air Movement Abdomen: Soft, Nontender, Nondistended, Normal bowel sounds Back: Nontender, Normal Inspection Extremities: Nontender, No edema Skin: Normal color, No rash Neurological: Alert, Oriented x3, Cranial nerves II-XII grossly intact, Normal Strength, Normal Sensation Psychological: Normal affect, Normal Mood Diagnostic/Tx/Re-eval Chest X-Ray - ED: 2 View, Read by ED Physician, Read by Radiologist, Normal, Heart, Lungs, Mediastinum, Bony Structures, No Infiltrates - Medical Decision Making The patient presents with cough and shortness of breath. She does have wheezing in all lung mcgrath. My suspicion is that this is more of an inflammatory process as she has already been on antibiotics with little improvement. The patient was given nebulized breathing treatments and Solu-Medrol. Chest x-ray does not show any focal infiltrative process. Screening labs were obtained were unremarkable. On reevaluation, she had resolution of her bronchospasm and is feeling markedly improved. At this point, I am going to have her finish her antibiotic course. I am going to add prednisone to her regimen. I will also add an inhaler and nebulizer. She is comfortable with this plan of care. She will be discharged home. Impression 1. Bronchitis with bronchospasm ED Disposition - Plan for ED Patient: Instructions: BRONCHITIS with Wheezing (Adult) Prescriptions: Prednisone [Deltasone] 40 mg PO DAILY #10 tab Prescription Printed Albuterol Aerosols [Ventolin Aerosols] 2.5 mg INHALATION Q4H PRN #25 vial Prescription Printed Referrals: Shilpa Rosales, TODDLER GUIDE-C [Primary Care Provider] - What to do if you have Problems For any increased pain, shortness of breath, bleeding, nausea or vomiting, chest pain, or any unexpected problems, contact your Primary Care Provider. Call [facility] ([phone]) or report to the closest Emergency Room. Call 911 if necessary. 04/26/19 0203 <Electronically signed by Noam Morris MD> Date ___ Noam Morris MD Cosigner Signature (If Indicated): Date ___ CC: NADYA Rosales Start: 04-26-2019 End: 04-26-2019 Chest PA and Lateral Comments: See Note; NOTES: [facility] Imaging Services [address] [place] [address] Chest PA and Lateral MR#: [id number] Acct: [id number] Name: CAMMIE BHAT Rep #: [id number] : 1970 F 48 From: Keshawn Robins MD PCP: NADYA Trinidad Status: REG ER Study: Chest PA and Lateral Date of Exam: 04/26/19 Exam# [id number] Ordering Dr: Noam Morris MD STUDY: X-RAY CHEST REASON FOR EXAM: Female, 48 years old. Cough. TECHNIQUE: 2 view chest. COMPARISON: None. ___ FINDINGS: No apparent pneumothorax, pneumonia, pleural effusion, or edema. Cardiac silhouette, zbigniew and mediastinal contours are within normal limits. No acute osseous abnormality. No evidence of free air under the diaphragm. RAD/Chest PA and Lateral IMPRESSION: Negative chest radiograph. Electronically Signed: Keshawn Robins, at 1:57 EDT Tel , Service support , CC: NADYA Rosales; Noam Morris MD Poultry Farm Laborer: Signed Shilpa Rosales Start: 04-20-2019 End: 04-25-2019 Cerv Spine 4 or 5 Views Comments: See Note; NOTES: [facility] Imaging Services [address] [place] [address] Cerv Spine 4 or 5 Views MR#: [id number] Acct: [id number] Name: CAMMIE BHAT Rep #: [id number] : 1970 F 48 From: Zak Araiza MD PCP: NADYA Trinidad Status: REG CLI Study: Cerv Spine 4 or 5 Views Date of Exam: 04/20/19 Exam# [id number] Ordering Dr: Marisol Boswell MD STUDY: X-RAY - CERVICAL SPINE REASON FOR EXAM: Female, 48 years old. Neck pain. TECHNIQUE: 4 view(s) of the cervical spine were obtained with flexion and extension. COMPARISON: None ___ FINDINGS: Normal anterior atlantoaxial articulation. Normal odontoid process. Neutral view shows reversal of curvature. There is 4 mm anterolisthesis C3 on C4. Markedly limited extension with no additional subluxations. Normal flexion with persistent anterolisthesis of C3 on C4. Multilevel moderate degenerative disc disease. The soft tissue structures are unremarkable. There is no demonstrated fracture of the cervical spine. ___ RAD/Cerv Spine 4 or 5 Views IMPRESSION: Multilevel degenerative disc disease. Anterolisthesis of C3 on C4 which is stable with flexion and extension. Electronically Signed: Zak Araiza MD at 22:36 EDT , Service support , CC: NADYA Rosales; Marisol Boswell MD Poultry Farm Laborer: Signed Sam Padilla Work Phone: Start: 03-24-2019 End: 03-24-2019 Inital Evaluation (1) - PT Comments: See Note; NOTES: [facility] Physical Therapy [address] [place] [address] / REHABILITATION SERVICES INITIAL EVALUATION MR#: [id number] Acct: [id number] Name: CAMMIE HBAT Rep #: [id number] : 1970 48 From: Barbra Reeder PT. MDT Referring Dr.: NADYA Perry Status: REG RCR Insurance: [employer] SELF PAY INSURANCE Patient's Visit Information CAMMIE BHAT is a 48 year old F referred to Physical Therapy by NADYA Wilks with a diagnosis of CERVICAL STENOSIS/YARY UE NUMBNESS AND TINGLING. Date of Evaluation: 03/23/19 Physical Therapist: Cynthia Lisa PT, Cert MDT - Visit Plan Frequency: 2-3x /Week Duration: 4-6 Weeks Plan: CERVICAL STM. CERVICAL MANUAL AND/OR MECHANICAL TX INDICATED. MODALITIES NEEDED. POSTURE CORRECTION/STRENGTHENING, INSTRUCTION IN APPROPRIATE BODY MECHANICS AND ACTIVITY MODIFICATIONS. YARY UE ROM, STRETCHING AND STRENGTHENING. HEP INSTRUCTION. - Subjective Findings: Diagnosis: CERVICAL STENOSIS, RIGHT HAND NUMBNESS AND TINGLING LAST 3 DIGITS, NUMBNESS LEFT FOREARM, AND RIGHT HAND GRASP WEAKNESS. Work/Leisure: UNEMPLOYEED. Disability: NO. Present symptoms: NECK PAIN, RIGHT FINGER NUMBESS LAST 3 DIGITS, LEFT FOREARM NUMBNESS. Present since: AT LEAST 5 YEARS OF NECK PAIN AND STIFFNESS. Pain Scale: Worst - 4/10 Least - 1/10. Currently: 08/06. Commenced as a result of: NO APPARENT REASON. Symptoms at onset: NECK. RIGHT FINGERS STARTED TO GO NUMB IN SEPTEMBER THEN LEFT FOREARM NUMBNESS STARTED IN DECEMBER. Worse: LYING ON RIGHT SIDE PROVOKES RIGHT HAND NUMBNESS AND TINLGING. Better: NOTHING. Disturbed sleep: YES. Previous history/Previous treatment: NONE. RECENTLY REFERRED TO DR. CARTER. NO NECK SURGEON CONSULT. NO PAIN MGMT. NO INJECTIONS. RECENTLY STARTED NEUROTIN. SURGERY CONSULT WAS OFFERED BUT PATIENT DECLINED AT THIS TIME. Dizziness: NO. Tinnitis: NO. Nausea: NO. Shortness of Breath: NO. Difficulty Swollowing: NO. Gait: NORMAL. Accidents: NO. Unexplained weight loss: NO. Imaging: RECENT NECK X-RAYS AND MRI - SEVERE NARROWING ON RIGHT SIDE. SEE [facility] EMR FOR COMPLETE REPORT. YARY UE NCT NOVEMBER 2018. PMH/Recent major surgery: *PSORIATIC ARTHRITIS* UNREPAIRED LEFT ROTATOR CUFF - REPAIRED ONCE THEN RE-TORE. RIGHT TORN BICEPT A LONG TIME AGO - UNREPAIRED. - Objective Sitting Posture/Standing Posture: POOR. Active Correction of posture: BETTER. Other Observations: INDEP GAIT AND TRANSFERS. Motor deficit: 5/5 WITH MMT'ING EXCEPT LEFT SHOULDER 4-/5, RIGHT 4/5. LEFT RN INTERN 50 LBS AND RIGHT 55 LBS. RIGHT HAND DOMINANT. Sensory deficit: DECREASED LEFT MEDIAL FOREARM AND RIGHT DIGITS 3, 4 AND 5 LIGHT TOUCH. ROM deficit: YARY UE'S WFL. Reflexes: UNABLE TO ELICIT YARY UE'S. Dural Signs: POSITIVE YARY UE'S. Cervical Mvmt Loss: Flex: NIL. Pro: NIL. Ext: MOD. Ret: JAZMIN. RSB: MOD. LSB: MOD. R Rot: MIN. L Rot: MOD. DECREASED UE SX'S WITH NECK EXT AND INCREASED WITH NECK FLEXION. Postural strength: POOR. Palpation: NO ACUTE CERVICAL OR THORACIC TENDERNESS BUT INCREASED MUSCLE TONE AND MULTIPLE TRIGGER POINTS. OTHER: CERVICAL DISTRACTION TESTING IN SITTING DECREASES RIGHT FINGER NUMBNESS. - Goals Goal 1:: DECREASE C/O NECK AND YARY UE SX'S. Goal Time Frame: 4-6 Weeks Goal 2:: IMPROVE LIFTING, SLEEP, DRIVING, RECREATIONAL AND HOUSEWORK FUNCTION Goal Time Frame: 4-6 Weeks Goal 3:: INSTRUCT IN PROPHYLAXIS - Rehabilitation Potential Rehabilitation Potential: Fair - Anticipated Interventions Patient/Client Instruction: Educate patient on: Condition, Plan of Care, Risk Factors, Benefits of Fitness Program For the Purpose of:: To improve self management Therapeutic Exercise to Include: Strength training, Body mechanics, Postural training, Flexibilty training, Active ROM, Scapular Strength/Stabilization For the Purpose of:: To decrease pain, To increase ROM, To improve muscle performance and motor function, To increase tolerance to activity/condition/position, To improve ability of physical actions for home/community/work/leisure Manual Therapy Techniques to Include: Mobilization, Soft tissue mobilization For the Purpose of:: To decrease pain, To increase ROM, To improve nutrient delivery to tissue TENS: Yes Cryotherapy (ice pack, ice massage): Yes Thermo therapy (hot pack): Yes Ultrasound (thermal/non thermal): Yes Intermittent cervical traction: Yes For the Purpose of:: To decrease pain, To increase ROM, To improve nutrient delivery to tissue Thank you for the opportunity to evaluate your patient. For Medicare and Medicare HMO plans, please review the plan of care and approve it. It will need to be FAXED BACK to us at [phone] for Medicare purposes. For Medicare only, by signing this I certify the plan of care. Please let me know if there are questions or concerns regarding this plan of care. Physician Signature: Date: <Electronically signed by Cynthia Lisa PT, Cert. MDT> 03/24/19 1109 CC: NADYA Rosales; TODDLER GUIDE-Leonardo Perry [place] Signed Shilpa Rosales Start: 02-15-2019 End: 02-15-2019 Spine Cervical (Routine) Comments: See Note; NOTES: [facility] Imaging Services [address] [place] [address] Spine Cervical (Routine) MR#: [id number] Acct: [id number] Name: CAMMIE BHAT Rep #: [id number] : 1970 F 48 From: Noam Robles MD PCP: Shilpa Rosales NP Status: REG CLI Study: Spine Cervical (Routine) Date of Exam: 02/15/19 Exam# [id number] Ordering Dr: Randell Carter MD HISTORY: Right arm radiculopathy 4 months COMPARISON: None. TECHNIQUE: Multisequence multiplanar MR imaging of the cervical spine was performed per department protocol without IV gadolinium. # of images incl. paperwork: [id number] FINDINGS: VERTEBRA: Straightening of the cervical spine. No acute fracture or subluxation. Vertebral body heights are normal. Moderate anterior marginal osteophytes at C4, C5, C6 levels and mild anterior spurring at C7. Mild discogenic posterior osteophytosis C4-C5, C5-C6 and to a lesser degree C6-C7 levels. Moderate discogenic endplate marrow changes at the C4-C5 level. No focal marrow signal abnormality is seen to suggest a pathologic process. The visualized posterior fossa is normal in signal. CORD: Cervicomedullary junction and cervical cord are normal in caliber, morphology, and signal characteristics. DISCS: Moderate disc space narrowing C4-C5, C5-C6, C6-C7 levels with disc desiccation. Depression LEVELS: C2-3: No disc bulges, disc protrusions, canal stenosis or neural foraminal stenosis. C3-4: Mild posterior disc bulge without significant effacement of the ventral thecal sac. No superimposed disc protrusion. No canal or foraminal stenosis. C4-5: 2 mm asymmetric to the right broad based disc osteophyte complex resulting in mild canal stenosis. No neural foraminal stenosis. C5-6: Combination of a 2-3 mm broad-based asymmetric to the right discussed fact complex combined with moderate hypertrophic changes of the right uncovertebral joint results in mild canal stenosis and severe right foraminal stenosis. No left foraminal stenosis. C6-7: There is a 2 mm broad-based disc protrusion versus disc osteophyte complex resulting in mild canal stenosis. No neural foraminal stenosis. C7-T1: No disc bulges, disc protrusions, canal stenosis or neural foraminal stenosis. SOFT TISSUES: Paravertebral soft tissues show no gross signal abnormalities. MRI/Spine Cervical (Routine) IMPRESSION: 1. Mild canal stenosis and severe right foraminal stenosis at C5-C6. 2. Mild canal stenosis at C4-C5 and C6-C7 levels. at 1314 Reported and signed by: Noam Robles MD Electronically Signed: Noam Robles MD at 13:12 EDT Tel , Service support , CC: LOIS Rosales; Randell Carter MD Poultry Farm Laborer: Signed Shilpa Rosales Start: 11-24-2018 End: 11-24-2018 Orthopedic Visit Report Comments: See Note; NOTES: [facility] [address] [place] [address] OFFICE VISIT Date of Service: 11/17/18 MR#: [id number] Acct: [id number] Name: CAMMIE BHAT Rep #: [id number] : 1970 Provider: Tammy Lazo DO Age/Sex: 48/F Location: [facility] Status: Signed Intake Intake Visit Reasons: RIGHT HAND Allergies Penicillins [PCN] Allergy (Verified 05/14/17 13:00) Hives Medications Topiramate [Topamax] 100 mg PO QHS 05/30/13 [History Confirmed 05/14/17] Desvenlafaxine Succinate [Pristiq ER] 50 mg PO QHS 11/18/15 [History Confirmed 05/14/17] Adalimumab [Humira] 40 mg SQ Q14D 01/23/17 [History Confirmed 05/14/17] PFSH Social History Smoking Status: Current some day smoker HPI RIGHT HAND: Details: Parts of this documentation were recorded by a scribe, this documentation accurately reflects the service provided and the decisions made by me, Tammy Lazo DO 11/17/18 1663. CAMMIE BHAT is a 48 year old F here today for right finger numbness. Patient states that about 2 weeks ago she started having constant numbness in her 3rd, 4th, and 5th digits of her right hand. Patient denies any pain just states they feel funny. Patient denies any injury. States she does have difficulty holding objects d/t weakness and her hand being shaky. Patient denies any radiating symptoms. Has had no recent testing or images regarding her hand. Denies any PT or bracing. ROS Const Reports system reviewed and no additional complaints, except as docu Eyes Reports system reviewed and no additional complaints, except as docu ENT Reports system reviewed and no additional complaints, except as docu Card Reports system reviewed and no additional complaints, except as docu Resp Reports system reviewed and no additional complaints, except as docu GI Reports system reviewed and no additional complaints, except as docu Musc Reports as per HPI Skin/Breast Reports system reviewed and no additional complaints, except as docu Neuro Yes system reviewed and no additional complaints, except as docu Psych Reports system reviewed and no additional complaints, except as docu Endo Reports system reviewed and no additional complaints, except as docu Jeffry/Lymph Reports system reviewed and no additional complaints, except as docu Aller/Immun Reports system reviewed and no additional complaints, except as docu Ortho Exam Right Wrist/Hand Contralateral Normal: Yes A1 abner trigger: No Right Wrist: Yes ROM-Extension 0-60, ROM-Flexion 0-80, ROM-Pronation 0-80 and ROM-Supination 0-90 Motor: EPL: 5, FDP-2: 5, 1st Dorsal Interosseous: 5, APB: 5 Sensation: Radial: I, Ulnar: D, Median: I Right Elbow Test: No Ulnar Nerve Subluxation Sensation: Radial: I, Ulnar: D, Median: I ELBOW: 5/5 in all tests, Right Shoulder Testing: Positive Neer's, AROM-Forward Elevation 0-180 and cross arm; negative Drop Arm, translation or empty can Internal Rotation: L2 Assessment AND Plan Problems 1. 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 Numbness of fingers R20.0 Plan X-rays were reviewed. There is no obvious fracture, dislocation, or lucency noted. Educated on the innervation of the nerves, she has no palpable cyst in the wrist but due to the numbness in the last three fingers without proximal symptoms we will order an Ultrasound and EMG. Reviewed the risk that she is having cervical involvement. The shoulder pain on exam is impingement, she has good strength, bicep deficient. Her options are injection if her pain increases, otc antiinflammatories, PT, do nothing. patient elected to do home exercises for now, as numbness is most bothersome at this time. she had no signs of cubital syndrome on PE, but will monitor for level of involvement whether cervical or lower. Follow up after US or sooner if pain, swelling, numbness or associated symptoms, or concerns develop. All questions answered. Patient in agreement of plan. 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 Laterality: right Numbness of fingers R20.0 11/24/18 1217 <Electronically signed by Tammy Lazo DO> Date ___ Tammy Lazo DO Cosigner Signature: Date ___ (if applicable) CC: Shilpa Rosales Start: 11-17-2018 End: 11-18-2018 Shoulder min 2 Views Comments: See Note; NOTES: [facility] Imaging Services [address] [place] [address] Shoulder min 2 Views MR#: [id number] Acct: [id number] Name: CAMMIE BHAT Rep #: [id number] : 1970 F 48 From: Conrado Grant MD PCP: Shilpa Rosales NP Status: REG CLI Study: Shoulder min 2 Views Date of Exam: 11/17/18 Exam# [id number] Ordering Dr: Tammy Lazo DO STUDY: X-RAY - RIGHT SHOULDER REASON FOR EXAM: Female, 48 years old. Pain, no known injury. TECHNIQUE: 3 view(s) of the shoulder. COMPARISON: None. ___ FINDINGS: Normal glenohumeral articulation. Normal acromioclavicular joint. Normal acromion. Normal humeral head and visualized proximal humerus. The soft tissue structures are unremarkable. Normal visualized pulmonary apex. ___ RAD/Shoulder min 2 Views IMPRESSION: Normal x-ray examination of the shoulder. Recommendation: If internal derangement is clinically suspected, recommend evaluation with MRI. Electronically Signed: Conrado Grant MD at 16:17 EDT , Service support , CC: LOIS Rosales; Tammy Lazo DO Poultry Farm Laborer: Signed Shilpa Rosales Start: 09-25-2017 End: 09-25-2017 SCREENING MAMM (CAD), BILAT Comments: See Note; NOTES: [facility] Imaging Services [address] [place] [address] SCREENING MAMM (CAD), BILAT MR#: [id number] Acct: [id number] Name: CAMMIE BHAT Rep #: [id number] : 1970 F 46 From: Geoff Andrew MD PCP: Shilpa Rosales NP Status: REG CLI Study: SCREENING MAMM (CAD), BILAT Date of Exam: 09/25/17 Exam# [id number] Ordering Dr: Shilpa Rosales MAMMOGRAPHY - BILATERAL SCREENING REASON FOR EXAM: Female, 46 years old. Routine annual screening examination. PERTINENT HISTORY: Non-contributory. TECHNIQUE: Digital bilateral breast emeterio (3D mammographic acquisition) in the CC and MLO projections. 2-D mediolateral oblique (MLO) and craniocaudad (CC) views of both breasts were obtained. CAD: Full Field Digital Mammography with Computer Added Detection was performed. COMPARISON: Comparison is made with prior study dated April 10, 2016 and October 26, 2014. ___ FINDINGS: Breast Composition: There are scattered areas of fibroglandular density. There are no dominant masses or suspicious calcifications. Stable benign-appearing bilateral axillary lymph nodes. A tissue clip marker is seen in the deep mid medial portion of the left breast. No other significant abnormalities are identified. There has been no significant change since the prior study. ___ HPBI/SCREENING MAMM (CAD), BILAT IMPRESSION: Stable bilateral screening mammogram. Yearly follow-up mammogram recommended. (A) ___ ASSESSMENT CATEGORY: BIRADS Category 2: Benign. A letter regarding these results will be sent to the patient by the facility within 30 days. Approximately 10% of breast cancers are not detected by mammography. A normal mammogram should not delay biopsy of a clinically suspicious abnormality. [id number] Electronically Signed: Geoff Andrew MD at 13:48 EST Tel [phone], Service support , CC: Shilpa Rosales NP Poultry Farm Laborer: Signed Shilpa Rosales Work Phone: Start: 04-17-2017 End: 04-17-2017 Upper Ext Joint Only(Routine) Comments: See Note; NOTES: [facility] Imaging Services [address] [place] [address] Upper Ext Joint Only(Routine) MR#: [id number] Acct: [id number] Name: CAMMIE BHAT Rep #: [id number] : 1970 F 46 From: Aquiles Craft MD PCP: Shilpa Rosales Status: REG CLI Study: Upper Ext Joint Only(Routine) Date of Exam: 04/17/17 Exam# [id number] Ordering Dr: Tammy Lazo DO STUDY: MRI LEFT SHOULDER REASON FOR EXAM: Female, 46 years old. Impingement left shoulder, rotator cuff syndrome; pain, n/t left hand, hx prev rotator cuff repair 2008 TECHNIQUE: Standardized fat and water weighted pulse sequences were obtained in all 3 orthogonal planes. COMPARISON: Preoperative MRI of the left shoulder on June 21, 2009. ___ FINDINGS: Status post supraspinatus tendon repair. There are post surgical changes in the distal supraspinatus tendon. There is a small recurrent partial articular surface tear of the supraspinatus tendon measuring less than 1 cm in diameter (coronal T2 series 5 image 9) Normal infraspinatus tendon. There is a persistent tear of the deep fibers of the subscapularis tendon. Normal teres minor tendon. Normal supraspinatus muscle. Normal infraspinatus muscle. Normal subscapularis muscle. Normal teres minor muscle. There is a small volume joint effusion of the glenohumeral joint. There are post surgical changes in the greater tuberosity of the humerus related to prior rotator cuff repair. There is persistent medial dislocation of the long biceps tendon (axial proton-density series 3 minutes 13). Normal labrum. Normal capsulo- ligamentous complex. Normal rotator interval. There are mild degenerative changes of the acromioclavicular articulation. There is a Type I morphology (flat undersurface), with a neutral orientation. There is no subacromial-subdeltoid bursal fluid. Normal visualized coracohumeral and coracoacromial ligaments. Normal quadrilateral space. Normal axillary space. Normal deltoid muscle. Normal trapezius muscle. ___ MRI/Upper Ext Joint Only(Routine) IMPRESSION: Status post supraspinatous tendon repair since the last examination with a small recurrent partial tear of the articular surface. Tear of the deep fibers of the subscapularis tendon with medial dislocation of the long biceps tendon, unchanged since the last examination. Mild degenerative changes of the acromioclavicular joint. Electronically Signed: Aquiles Craft MD, FACR at 9:28 EDT , Service support , CC: Shilpa Rosales; Tammy Lazo DO Poultry Farm Laborer: Signed Shilpa Handykathiennamdi Start: 01-23-2017 End: 01-23-2017 Discharge Instruction Comments: See Note; NOTES: [facility] Medical Records Department [address] [place] [address] Discharge Instruction 01/23/17 0100 MR#: [id number] Acct: [id number] Name: CAMMIE BHAT Rep #: [id number] : 1970 46 From: Darrell Forte MD PCP: Shilpa Rosales Status: REG ER ED Disposition - Plan for ED Patient: Disposition: Home or Assisted Living Chief Complaint: Headache Instructions: ED Headache Migraine Referrals: Shilpa Rosales [Primary Care Provider] - What to do if you have Problems For any increased pain, shortness of breath, bleeding, nausea or vomiting, chest pain, or any unexpected problems, contact your Primary Care Provider. Call [facility] ([phone]) or report to the closest Emergency Room. Call 911 if necessary. 01/23/17 0109 <Electronically signed by Darrell Forte MD> Date ___ Darrell Forte MD Cosigner Signature (If Indicated): Date ___ CC: Shilpa Rosales Shilpa Connie Start: 01-23-2017 End: 01-23-2017 Emergency Department Summary Comments: See Note; NOTES: [facility] Medical Records Department [address] [facility] [address] Emergency Department Summary 01/23/17 0101 MR#: [id number] Acct: [id number] Name: CAMMIE BHAT Rep #: [id number] : 1970 46 From: Darrell Forte MD PCP: Shilpa Rosales Status: PRE ER - ER Visit Summary Date of Service: 01/23/17 Chief Complaint: [] Left sided headache History of Present Illness: The patient is a 46 F [] once with a left-sided headache that started today 6 PM. Gradual onset. Continue continuous. Similar to previous headaches. Moderate severity currently. Worsened by light. Relieved by dark. Associated with nausea. Associated with photophobia. No other associated symptoms. No previous subarachnoid hemorrhage. No injury. She used Tylenol migraine with minimal relief. Her last migraine was 2 years ago. She is on Topamax. She used to get them monthly. Physical Examination: [] Vital signs reviewed General: Well-nourished well-developed Head: Normocephalic atraumatic Eyes: Pupils equal round and reactive to light extraocular movements intact ENT: TMs clear no hemotympanum no trauma Neck: Nontender full range of motion Cardiovascular: Regular rate rhythm no murmurs normal S1-S2 Respiratory: No distress clear to auscultation bilaterally chest nontender Abdomen: Soft nontender nondistended normal bowel sounds no masses Back: Nontender no CVA tenderness Extremities: Nontender active range of motion 4 extremities no trauma Skin: Normal color no trauma Neuro alert oriented cranial nerves II through XII intact normal strength sensation reflexes Test Results: [] Emergency Department Course and Treatment: [] Discussed with this patient about migraine treatment. At this time she would like injections and discharged to go home and rest. She does not want an IV. I do not think she needs a CAT scan. This sounds exactly like previous migraines. She will return if she worsens despite treatment. She will follow-up as an outpatient. Disposition: [] Impression: [] Acute migraine headache ED Disposition - Plan for ED Patient: Disposition: Home or Assisted Living Chief Complaint: Headache Instructions: ED Headache Migraine Referrals: Shilpa Rosales [Primary Care Provider] - What to do if you have Problems For any increased pain, shortness of breath, bleeding, nausea or vomiting, chest pain, or any unexpected problems, contact your Primary Care Provider. Call [facility] ([phone]) or report to the closest Emergency Room. Call 911 if necessary. 01/23/17 0103 <Electronically signed by Darrell Forte MD> Date ___ Darrell Forte MD Cosigner Signature (If Indicated): Date ___ CC: Shilpa Rosales Start: 06-06-2016 End: 06-06-2016 Shoulder min 2 Views Comments: See Note; NOTES: [facility] Imaging Services [address] [place] [address] Verdana 4d Shoulder min 2 Views MR#: [id number] Acct: [id number] Name: CAMMIE BHAT Rep #: [id number] : 1970 F 45 From: Harshal De Leon MD PCP: Shilpa Rosales Status: REG CLI Study: Shoulder min 2 Views Date of Exam: 06/06/16 Exam# [id number] Ordering Dr: Tammy Lazo DO STUDY: X-RAY - LEFT SHOULDER REASON FOR EXAM: Female, 45 years old. Left shoulder pain. Prior rotator cuff surgery. TECHNIQUE: 3 view(s) of the shoulder. COMPARISON: None. ___ FINDINGS: There is mild degenerative arthrosis of the glenohumeral articulation. There are postsurgical changes at the acromioclavicular joint. Normal acromion. There is an anchor in the humeral head from the patient's prior rotator cuff surgery. The soft tissue structures are unremarkable. Normal visualized pulmonary apex. ___ RAD/Shoulder min 2 Views IMPRESSION: Mild arthrosis of the glenohumeral joint. Postsurgical changes as described. No acute pathology. Electronically Signed: Harshal De Leon MD at 17:57 EST , Service support [phone], CC: Shilpa Rosales; Tammy Lazo DO Poultry Farm Laborer: Signed Shilpa Rosales Start: 04-10-2016 End: 04-10-2016 Bilat Scrn Digital AND CAD Comments: See Note; NOTES: [facility] Imaging Services [address] [place] [address] Verdana 4d Bilat Scrn Digital AND CAD MR#: [id number] Acct: [id number] Name: CAMMIE BHAT Rep #: [id number] : 1970 F 45 From: Geoff Andrew MD PCP: Shilpa Rosales Status: REG CLI Study: Bilat Scrn Digital AND CAD Date of Exam: 04/10/16 Exam# [id number] Ordering Dr: Shilpa Rosales MAMMOGRAPHY - BILATERAL SCREENING REASON FOR EXAM: Female, 45 years old. Routine annual screening examination. PERTINENT HISTORY: Non-contributory. TECHNIQUE: Digital bilateral breast emeterio (3D mammographic acquisition) in the CC and MLO projections. 2-D mediolateral oblique (MLO) and craniocaudad (CC) views of both breasts were obtained. CAD: Full Field Digital Mammography with Computer Added Detection was performed. COMPARISON: Comparison is made with prior study dated October 26, 2014 and September 17, 2012. ___ FINDINGS: Breast Composition: The breasts are heterogeneously dense, which may obscure small masses. There are no dominant masses or suspicious calcifications. No other significant abnormalities are identified. There has been no significant change since the prior study. ___ HPBI/Bilat Scrn Digital AND CAD IMPRESSION: Stable bilateral screening mammogram. Yearly follow-up mammogram recommended. (A) ___ ASSESSMENT CATEGORY: BIRADS Category 1: Negative. A letter regarding these results will be sent to the patient by the facility within 30 days. Approximately 10% of breast cancers are not detected by mammography. A normal mammogram should not delay biopsy of a clinically suspicious abnormality. [id number] Electronically Signed: Geoff Andrew MD at 11:28 EDT Tel [phone], Service support [phone], CC: Shilpa Rosales Poultry Farm Laborer: Signed Shilpa Rosales Work Phone: Start: 12-02-2015 End: 12-02-2015 Discharge Instruction Comments: See Note; NOTES: [facility] Medical Records Department [address] [place] [address] Discharge Instruction 11/18/15 0743 MR#: [id number] Acct: [id number] Name: CAMMIE BHAT Rep #: [id number] : 1970 45 From: Darrell Forte MD PCP: Libertad Rivera DO Status: DEP ER ED Disposition - Plan for ED Patient: Disposition: Home or Assisted Living Chief Complaint: Overdose Instructions: ED Alcohol Intoxication Referrals: Libertad Rivera DO [Primary Care Provider] - Counseling,Center [GROUP OF PHYSICIANS] - What to do if you have Problems For any increased pain, shortness of breath, bleeding, nausea or vomiting, chest pain, or any unexpected problems, contact your doctor. Call [facility] ([phone]) or report to the closest Emergency Room. Call 911 if necessary. 12/02/152326 <Electronically signed by Darrell Forte MD> Date ___ Darrell Forte MD Cosigner Signature (If Indicated): Date ___ CC: Libertad Rivera DO Shilpa Rosales Start: 12-02-2015 End: 12-02-2015 Emergency Department Summary Comments: See Note; NOTES: [facility] Medical Records Department [address] [place] [address] Emergency Department Summary MR#: [id number] Acct: [id number] Name: CAMMIE BHAT Rep #: [id number] : 1970 45 From: Darrell Forte MD PCP: Libertad Rivera DO Status: PENDING SALE TO [facility] DATE OF SERVICE: 11/18/2015 ADDENDUM: The patient was monitored in the Emergency Department upon sobriety. She spoke to Crisis. She has no recollection of what happened. She is unsure if she took anything. She cannot remember getting in an argument with her . They spoke with her . The corroborates this. She does not really remember what happened either at this time, the patient has been stable. I am not sure if she took anything. She is not sure either. She will be discharged home to follow up as an outpatient. DISPOSITION: Home. Darrell Forte MD T: NTS JOB: [id number] 12/02/152326 <Electronically signed by Darrell Forte MD> Date ___ Darrell Forte MD Cosigner Signature (If Indicated): Date ___ CC: Libertad DO Date Dictated: 11/18/15744 Date Transcribed: 11/18/15744 Poultry Farm Laborer: Signed Shilpa Connie Start: 11-20-2015 End: 11-20-2015 12 lead ECG Comments: See Note; NOTES: [facility] Cardiovascular Services [address] [place] [address] 12 Lead EKG 11/18/15109 MR#: [id number] Acct: [id number] Name: CAMMIE BHAT Rep #: [id number] : 1970 45 From: Roger Dietz MD Attending Dr: Status: DEP ER Ordering Dr: Darrell Forte MD Date: 11/18/15 Location: ED Sex: F C Admitted: Test Reason : OD Blood Pressure : / mmHG Vent. Rate : 073 BPM Atrial Rate : 073 BPM P-R Int : 186 ms QRS Dur : 088 ms QT Int : 384 ms P-R-T Axes : 053 -03 025 degrees QTc Int : 423 ms Normal sinus rhythm Normal ECG Confirmed by J LUIS GRAHAM, ROGER ([id number]), health editor DEISY CARRIZALES ([id number]) on 11/20/2015 11:19:01 AM Referred By: ROSELINE Confirmed By:ROGER DIETZ MD 11/20/15 1119 Date ___ Roger Dietz MD CC: Libertad DO Date Dictated: 11/18/15109 Date Transcribed: 11/18/15109 Poultry Farm Laborer: Signed Shilpa Rosales Start: 04-11-2015 End: 04-12-2015 Ankle min 3 Views Comments: See Note; NOTES: [facility] Imaging Services [address] [place] [address] Radiology Report MR#: [id number] Acct: [id number] Name: CAMMIE BHAT Rep #: [id number] : 1970 F 44 From: Harshal De Leon MD PCP: Libertad Rivera DO Status: REG CLI Study: Ankle min 3 Views Date of Exam: 04/11/15 Exam# [id number] Ordering Dr: Tammy Lazo DO STUDY: X-RAY - LEFT ANKLE REASON FOR EXAM: Female, 44 years old. Pain and swelling in lateral ankle for one year. No trauma. TECHNIQUE: 4 view(s) of the ankle. COMPARISON: None. ___ FINDINGS: There is a separate ossicle for the medial malleolus, a normal variant. Normal medial and lateral malleoli. There is mild tibiotalar arthrosis. Normal visualized talus and calcaneus. There is arthrosis of the subtalar and talonavicular joints. The soft tissue structures are unremarkable. ___ IMPRESSION: OsteoArthritic changes as described. No acute pathology. Electronically Signed: Harshal De Leon MD at 10:08 EDT , Service support [phone], RAD/Ankle min 3 Views IMPRESSION: OsteoArthritic changes as described. No acute pathology. Electronically Signed: Harshal De Leon MD at 10:08 EDT , Service support [phone], CC: Tammy Lazo DO; Libertad Rivera DO Poultry Farm Laborer: Signed Shilpa Rosales Start: 10-26-2014 End: 10-26-2014 Bilat Scrn Digital AND CAD Comments: See Note; NOTES: [facility] Imaging Services [address] [place] [address] Breast Imaging Report MR#: [id number] Acct: [id number] Name: CAMMIE BHAT Rep #: [id number] : 1970 F 44 From: Geoff Andrew MD PCP: Libertad Rivera DO Status: REG CLI Study: Bilat Scrn Digital AND CAD Date of Exam: 10/26/14 Exam# [id number] Ordering Dr: Libertad Rivera DO MAMMOGRAPHY - BILATERAL SCREENING REASON FOR EXAM: Female, 44 years old. Routine annual screening examination. PERTINENT HISTORY: Non-contributory. TECHNIQUE: Digital examination. Mediolateral oblique (MLO) and craniocaudad (CC) views of both breasts were obtained. CAD: CAD was performed on this study. COMPARISON: Comparison is made with prior examination dated September 17, 2012 and May 28, 2011. ___ FINDINGS: Breast Composition: The breasts are heterogeneously dense, which may obscure small masses. There are no dominant masses or suspicious calcifications. No other significant abnormalities are identified. There has been no significant change since the prior study. ___ IMPRESSION: Stable bilateral screening mammogram. Yearly follow-up recommended. (A) ___ ASSESSMENT CATEGORY: BIRADS Category 2: Benign. A letter regarding these results will be sent to the patient by the facility within 30 days. Approximately 10% of breast cancers are not detected by mammography. A normal mammogram should not delay biopsy of a clinically suspicious abnormality. Electronically Signed: Geoff Andrew MD at 15:02 EDT Tel [phone], Service support [phone], CC: Libertad Rivera DO Poultry Farm Laborer: Signed Libertad Rivera Work Phone: Start: 12-07-2013 End: 12-07-2013 Abdomen/Pelvis WITH Contrast Comments: See Note; NOTES: [facility] Imaging Services [address] [place] [address] CAT Scan Report MR#: [id number] Acct: [id number] Name: CAMMIE BHAT Rep #: [id number] : 1970 F 43 From: Zak Araiza MD PCP: Libertad Rivera DO Status: REG CLI Study: Abdomen/Pelvis WITH Contrast Date of Exam: 12/07/13 Exam# [id number] Ordering Dr: Libertad Rivera DO STUDY: CT ABDOMEN AND PELVIS WITH CONTRAST REASON FOR EXAM: Female, 43 years old. Epigastric pain. RADIATION DOSAGE (If Supplied By Facility): CTDIvol = ( 15.88 ) mGy, DLP = ( 1461.75 ) mGycm TECHNIQUE: Transaxial images were obtained from the dome of the diaphragm to the symphysis pubis without oral contrast. 100CC ml of Isovue 300 contrast was administered. Sagittal and coronal images were reconstructed. COMPARISON: 10/16/12.. ___ FINDINGS: The visualized lung bases are unremarkable. The visualized portions of the heart are within normal limits. Low-attenuation structure along the falciform ligament again seen. It appears to fill in on delayed images consistent with a hemangioma. The liver is otherwise unremarkable. Normal gallbladder and extrahepatic biliary system. Normal spleen. Normal pancreas. Normal bilateral adrenal glands. Normal right kidney. Normal left kidney. Normal visualized stomach. Normal small intestine. Normal colon. The appendix is visualized and appears normal. Normal abdominal aorta. Normal inferior vena cava. Normal retroperitoneum. Normal urinary bladder. There is absence of the uterus consistent with a prior hysterectomy. Bilateral adnexal cysts are seen, measuring 2.7 cm on the right, and 2.5 cm on the left. Normal abdominal wall. Normal osseous structures. ___ IMPRESSION: Probable hemangioma in the anterior segment of the right lobe of the liver. Bilateral small adnexal cysts. No other significant finding. Electronically Signed: Zak Araiza MD at 17:39 EDT Tel , Service support [phone], CC: Libertad Rivera DO Poultry Farm Laborer: Signed Libertad Rivera Work Phone: Start: 12-06-2013 End: 12-06-2013 Emergency Department Summary Comments: See Note; NOTES: [facility] Medical Records Department [address] [place] [address] Emergency Department Summary MR#: [id number] Acct: [id number] Name: CAMMIE BHAT Rep #: [id number] : 1970 43 From: Rolly Santiago MD PCP: Libertad Rivera DO Status: [facility] ER DATE OF SERVICE: 12/04/2013 CHIEF COMPLAINT: Headache. HISTORY OF PRESENT ILLNESS: The patient states she has very severe headache started yesterday her usual headache usually left pentecostal with some nausea without vomiting. States occasionally she has come in for an injection. She is slightly photophobic, but has no other illnesses. No change in strength, sensation, numbness. Here with family. PHYSICAL EXAMINATION: VITAL SIGNS: Stable. HEENT: Normal. Mucous membranes slightly dry. NECK: Supple. No adenopathy. No meningeal irritation. HEART: Regular. LUNGS: Clear. ABDOMEN: Soft. No pain on palpation. NEUROLOGICAL: Equal shoulder shrug, hand grasp. Normal cerebellar function and cranial nerve function. Alert and oriented x3. TREATMENT: The patient was given Compazine 5 mg, Benadryl 25 mg and Toradol 30 mg, all IV with a liter of normal saline, this has helped her in the past. She felt much better after about an hour and wanted to go home and was with family. Recheck sooner for worse or persistent headaches, change in vision, strength, sensation, numbness, loss of bowel or bladder control, fevers or chills. Follow up with Dr. Rivera if not better in the next couple of days or return to the Emergency Room. DIAGNOSIS: Acute cephalgia. Rolly Santiago MD T: NTS JOB: [id number] 12/06/13 0725 <Electronically signed by Rolly Santiago MD> Date ___ Rolly Santiago MD CC: Libertad Rivera DO Date Dictated: 12/05/13209 Date Transcribed: 12/05/13209 Poultry Farm Laborer: Signed Sam Padilla Work Phone: Start: 12-04-2013 End: 12-04-2013 Discharge Instruction Comments: See Note; NOTES: [facility] Medical Records Department [address] [place] [address] Discharge Instruction 12/04/139 MR#: [id number] Acct: [id number] Name: CAMMIE BHAT Rep #: [id number] : 1970 43 From: Rolly Santiago MD PCP: Libertad Rivera DO Status: REG ER ED Disposition - Plan for ED Patient: Chief Complaint: Headache Instructions: HEADACHE, Unspecified Referrals: Libertad Rivera DO [Primary Care Provider] - 1-2 Days if not improving What to do if you have Problems For any increased pain, shortness of breath, bleeding, nausea or vomiting, chest pain, or any unexpected problems, contact your doctor. Call [facility] ) or report to the closest Emergency Room. Call 911 if necessary. 12/04/132219 <Electronically signed by Rolly Santiago MD> Date ___ Rolly Santiago MD CC: Libertad Cristina Work Phone: Start: 07-02-2013 End: 07-02-2013 Foot min 3 Views Comments: See Note; NOTES: [facility] Imaging Services [address] [place] [address] Radiology Report MR#: [id number] Acct: [id number] Name: CAMMIE BHAT Rep #: [id number] : 1970 F 42 From: Geoff Andrew MD PCP: Libertad Rivera DO Status: REG CLI Study: Foot min 3 Views Date of Exam: 07/02/13 Exam# [id number] Ordering Dr: Shilpa Rosales STUDY: X-RAY - LEFT FOOT CLINICAL: Female, 42 years old. Pain and swelling overlying the first and second metatarsals. TECHNIQUE: 3 view(s) of the foot. COMPARISON: None. ___ FINDINGS: Normal talus, calcaneus, and tarsal bones. Normal visualized subtalar, talonavicular, calcaneocuboid, tarsal and tarsometatarsal articulations. The patient is status post resection of the distal portion of the third metatarsal. There is degenerative arthrosis of the metatarsophalangeal joint of the hallux . Normal tibial and fibular sesamoid bones. Normal interphalangeal joint of the great toe. Normal phalanges of the great toe. Normal second through fifth metatarsophalangeal joints. Normal interphalangeal joints and phalanges of the lesser toes. There is non-specific soft tissue swelling of the foot. ___ IMPRESSION: Nonspecific soft tissue swelling. Degenerative changes at the first metatarsal pharyngeal joint. Prior resection of the distal portion of the third metatarsal. Electronically Signed: Geoff Andrew M.D. at 11:20 EST , Service support [phone], CC: Shilpa Rosales; Libertad Rivera DO Poultry Farm Laborer: Signed Shilpa Rosales Work Phone: Abdominal hysterectomy Hysterectomy; Carey Stewart LPN Comment on above: Adenomyosis Abdominal hysterectomy Hysterectomy; Carey Alvarenga LPN Comment on above: Adenomyosis Clostridium difficil e detection TODDLER GUIDE-C Shilpa Rosales TODDLER GUIDE Work Phone: Clostridium difficil e detection Dr. Nathan Guzman Work Phone: Enteric Bacteriology TODDLER GUIDE-C Kevan Rosales TODDLER GUIDE Work Phone: Lactoferrin measurement TODDLER GUIDE-C Shilpa Rosales TODDLER GUIDE Work Phone: Nucleic acid assay Dr. Nathan Guzman Work Phone: Ova OR parasites identification TODDLER GUIDE-C Shilpa Rosales TODDLER GUIDE Work Phone: Urine culture Dr. Nathan Guzman Work Phone: Urine culture Dr. Nathan Guzman Work Phone: Plan of Treatment Date Care Activity Detail Author Start: 05-01-2032 Screening for malignant neoplasm of [facility] Start: 04-27-2027 Diabetes Screening Diabetes Screening [facility] Start: 04-18-2027 Diabetes Screening Diabetes Screening [facility] Start: 04-16-2027 Diabetes Screening Diabetes Screening [facility] Start: 04-14-2027 Diabetes Screening Diabetes Screening [facility] Start: 04-12-2027 Diabetes Screening Diabetes Screening [facility] Start: 02-26-2027 Diabetes Screening Diabetes Screening [facility] Start: 08-25-2026 Diabetes Screening Diabetes Screening [facility] Start: 04-27-2025 BP Controlled (<130/80) BP Controlled (<130/80) [facility] Start: 12-13-2024 End: 12-13-2024 Patient encounter procedure 12/13/2024 3:20 PM EDT Office Visit [facility] [address] [address] [place] [address] Muoh, Rudy H, DO [address] [facility] [address] [place], [place] [id number] [facility] Start: 07-28-2024 Subsequent hospital visit by physician 07/28/2024 [facility] Encounter [facility] [place] [address] Naomy Thomas MD [address] [place] [address] Supraventricular tachycardia (HCC) [I47.10] [facility] Comment on above: Supraventricular tachycardia (HCC) [I47. 10] Start: 05-07-2024 Subsequent hospital visit by physician 05/07/2024 Hospital Encounter [facility] 1 [place] [address] Naomy Thomas MD [address] [place] [address] Supraventricular tachycardia (HCC) [I47.10] [facility] Comment on above: Supraventricular tachycardia (HCC) [I47. 10] Start: 04-27-2024 End: 04-27-2024 Follow-up encounter 04/27/2024 2:45 PM EDT Results Only Cardiology [address] [id number] Surgery follow-up Cardiology Comment on above: Surgery follow-up Start: 04-27-2024 End: 04-27-2024 ambulatory 04/27/2024 2:30 PM EDT Results Only Main [address] [place] [address] [id number] CBC CMP Main [place] [address] [facility] Comment on above: CBC CMP Start: 04-27-2024 End: 04-27-2024 Patient encounter procedure Radiology Comment on above: Surgery follow-up Hospital Discharge J 11-25-00 Start: 04-16-2024 End: 07-16-2024 CBC panel - Blood by Automated count COMPLETE BLOOD COUNT Lab Routine Surgery follow-up Expected: 04/16/2024, Expires: 07/16/2024 [facility] Work Phone: Comment on above: Expected: 04/16/2024, Expires: Start: 04-16-2024 End: 07-16-2024 Comprehensive metabolic 2000 panel - Serum or Plasma COMPREHENSIVE METABOLIC PANEL Lab Routine Surgery follow-up Expected: 04/16/2024, Expires: 07/16/2024 [facility] Comment on above: Expected: 04/16/2024, Expires: Start: 04-14-2024 End: 04-14-2024 Admission to same day surgery center 04/14/2024 1:10 PM EDT - 04/14/2024 5:50 PM EDT Surgery Admitting [address] [place] [address] Nnamdi Greenwood MD [address] [place] [address] MVR (2) Admitting Comment on above: MVR (2) Start: 04-14-2024 Subsequent hospital visit by physician 04/14/2024 1:10 PM EDT Hospital Encounter Admitting [address] [id number] Nnamdi Greenwood MD [address] [id number] 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] Admitting Comment on above: Disorder of artery or arteriole (HCC) [I 77.9] Start: 04-14-2024 End: 04-14-2024 Vlvp mitral valve w/card byp w/prostc ring VALVULOPLASTY MITRAL W/ RING AND BYPASS Disorder of artery or arteriole (HCC) Pre-operative cardiovascular examination Mitral valve disorder 04/14/2024 1:10 PM EDT [facility] & VAS Start: 04-14-2024 End: 04-14-2024 Admission to same day surgery center 04/14/2024 7:35 AM EDT - 04/14/2024 12:15 PM EDT Surgery Admitting [address] [id number] Nnamdi Greenwood MD [address] [place] [address] ROBOT MVR (2) Admitting Comment on above: ROBOT MVR (2) Start: 04-14-2024 End: 04-14-2024 Anesthesia consultation 04/14/2024 7:35 AM EDT Anesthesia Event Admitting [address] [id number] Balaji Uribe MD [address] [id number] Admitting Start: 04-14-2024 Subsequent hospital visit by physician 04/14/2024 7:35 AM EDT Hospital Encounter Admitting [address] [id number] Nnamdi Greenwood MD [address] [id number] 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], Pre-operative cardiovascular examination [Z01.810], Mitral valve disorder [I05.9] Admitting Comment on above: Disorder of artery or arteriole (HCC) [I 77.9], Pre-operative cardiovascular examination [Z01.810], Mitral valve disorder [I05.9] Start: 04-14-2024 End: 04-14-2024 Vlvp mitral valve w/card byp w/prostc ring VALVULOPLASTY MITRAL W/ RING AND BYPASS Disorder of artery or arteriole (HCC) Pre-operative cardiovascular examination Mitral valve disorder 04/14/2024 7:35 AM EDT [facility] & VAS Start: 04-13-2024 End: 04-13-2024 Patient encounter procedure Cardiothoracic Comment on above: I77.9 Z01.810 I05.9 [facility] 04/14/24 DR. LYONS Start: 03-28-2024 Covid-19 Vaccine ( season) Covid-19 Vaccine ( season) [facility] Start: 03-28-2024 Covid-19 Vaccine ( season) Covid-19 Vaccine ( season) [facility] Start: 03-28-2024 Influenza vaccination [facility] Start: 03-10-2024 End: 06-09-2024 aPTT in Platelet poor plasma by Coagulation assay ACTIVATED PARTIAL THROMBOPLASTIN TIME Lab Routine Disorder of artery or arteriole (HCC) Pre-operative cardiovascular examination Mitral valve disorder Expected: 03/10/2024 (Approximate), Expires: 06/09/2024 [facility] Comment on above: Expected: 03/10/2024 (Approximate), Expi res: 06/09/2024 Start: 03-10-2024 End: 06-09-2024 CBC W Auto Differential panel - Blood COMPLETE BLOOD COUNT AND DIFFERENTIAL Lab Routine Disorder of artery or arteriole (HCC) Pre-operative cardiovascular examination Mitral valve disorder Expected: 03/10/2024, Expires: 06/09/2024 [facility] Comment on above: Expected: 03/10/2024, Expires: Start: 03-10-2024 End: 06-09-2024 Comprehensive metabolic 2000 panel - Serum or Plasma COMPREHENSIVE METABOLIC PANEL Lab Routine Disorder of artery or arteriole (HCC) Pre-operative cardiovascular examination Mitral valve disorder Expected: 03/10/2024, Expires: 06/09/2024 [facility] Work Phone: Comment on above: Expected: 03/10/2024, Expires: Start: 03-10-2024 End: 06-09-2024 CONFIRM BLOOD TYPE CONFIRM BLOOD TYPE Blood Bank Routine Disorder of artery or arteriole (HCC) Pre-operative cardiovascular examination Mitral valve disorder Expected: 03/10/2024, Expires: 06/09/2024 [facility] Comment on above: Expected: 03/10/2024, Expires: Start: 03-10-2024 End: 06-09-2024 Lactate dehydrogenase [Enzymatic activity/volume] in Serum or Plasma LACTATE DEHYDROGENASE Lab Routine Disorder of artery or arteriole (HCC) Pre-operative cardiovascular examination Mitral valve disorder Expected: 03/10/2024, Expires: 06/09/2024 [facility] Comment on above: Expected: 03/10/2024, Expires: Start: 03-10-2024 End: 06-09-2024 PT panel - Platelet poor plasma by Coagulation assay PROTHROMBIN TIME Lab Routine Disorder of artery or arteriole (HCC) Pre-operative cardiovascular examination Mitral valve disorder Expected: 03/10/2024 (Approximate), Expires: 06/09/2024 [facility] Comment on above: Expected: 03/10/2024 (Approximate), Expi res: 06/09/2024 Start: 03-10-2024 End: 06-09-2024 TYPE AND SCREEN,30 DAY TYPE AND SCREEN,30 DAY Blood Bank Routine Disorder of artery or arteriole (HCC) Pre-operative cardiovascular examination Mitral valve disorder Expected: 03/10/2024, Expires: 06/09/2024 [facility] Comment on above: Expected: 03/10/2024, Expires: Start: 03-10-2024 End: 06-09-2024 URINALYSIS, DIPSTICK ONLY URINALYSIS, DIPSTICK ONLY Lab Routine Disorder of artery or arteriole (HCC) Pre-operative cardiovascular examination Mitral valve disorder Expected: 03/10/2024, Expires: 06/09/2024 [facility] Comment on above: Expected: 03/10/2024, Expires: Start: 03-10-2024 End: 03-10-2024 Patient encounter procedure 03/10/2024 11:00 AM EDT Appointment Cat Scan [address] [place] [address] Nonrheumatic mitral valve regurgitation [I34.0] Cat Scan Comment on above: Nonrheumatic mitral valve regurgitation [I34.0] Start: 03-10-2024 End: 03-10-2024 ambulatory [facility]ULM [facility] Comment on above: Nonrheumatic mitral valve regurgitation [I34.0] Start: 03-08-2024 End: 03-08-2024 Admission to same day surgery center 03/08/2024 8:30 AM EDT - 03/08/2024 10:00 AM EDT Surgery [facility] [address] [place] [address] Darien Chandler MD [address] [place], [place] [id number] LEFT HEART CATH INTRAPROCEDURAL INJECT W/ LEFT VENTRICULOGRAPHY IMAGE SUPERVISION/INTERPRETATI ON [facility] MANAGER Comment on above: LEFT HEART CATH INTRAPROCEDURAL INJECT W / LEFT VENTRICULOGRAPHY IMAGE SUPERVISION/INTERPRETATION Start: 03-08-2024 End: 03-08-2024 L hrt cath w/njx l ventriculography img s&i LEFT HEART CATH INTRAPROCEDURAL INJECT W/ LEFT VENTRICULOGRAPHY IMAGE SUPERVISION/INTERPRETATI ON Valvular heart disease 03/08/2024 8:30 AM EDT [facility] Start: 03-08-2024 Subsequent hospital visit by physician 03/08/2024 8:30 AM EDT Hospital Encounter [facility] [address] [place] [address] Darien Chandler MD [address] [place] [address] Valvular heart disease [I38] [facility]NA[facility] Comment on above: Valvular heart disease [I38] Start: 02-27-2024 End: 02-27-2024 ambulatory 02/27/2024 1:00 PM EDT Results Only [facility] [address] [place] [address] [facility] Start: 02-25-2024 End: 05-26-2024 Basic metabolic 2000 panel - Serum or Plasma BASIC METABOLIC PANEL Lab Routine Nonrheumatic mitral (valve) insufficiency Expected: 02/25/2024, Expires: 05/26/2024 [facility] Work Phone: Comment on above: Expected: 02/25/2024, Expires: Start: 02-25-2024 End: 05-26-2024 CBC panel - Blood by Automated count COMPLETE BLOOD COUNT Lab Routine Nonrheumatic mitral (valve) insufficiency Expected: 02/25/2024, Expires: 05/26/2024 [facility] Comment on above: Expected: 02/25/2024, Expires: Start: 02-24-2024 End: 02-24-2024 Patient encounter procedure 02/24/2024 2:00 PM EDT Office Visit [facility] [address] [phone] Maulik Mitchell MD [address] [facility] [address] [phone] New Patient Referral from Jeyson Galvan TODDLER GUIDE, TODDLER GUIDE-C [phone] for Nonrheumatic Mitral Valve Insufficiency, Nonrheumatic Mitral Valve Prolapse with EXTERNAL [facility] ECHO 01/12/2024 [facility] Comment on above: New Patient Referral from Jeyson Galvan NP , TODDLER GUIDE-C [phone] for Nonrheumatic Mitral Valve Insufficiency, Nonrheumatic Mitral Valve Prolapse with EXTERNAL [facility] ECHO 01/12/2024 Start: 02-19-2024 End: 02-19-2024 Admission to same day surgery center 02/19/2024 11:55 AM EDT - 02/19/2024 4:10 PM EDT Surgery [facility] [address] [place] [address] Naomy Thomas MD [address] [place] [address] COMPLETE EPS W/SVT ABL W/WO 3D MAP LA PACE REC [facility] Comment on above: COMPLETE EPS W/SVT ABL W/WO 3D MAP LA PA CE REC Start: 02-19-2024 End: 02-19-2024 Percutaneous transluminal ablation of atrioventricular node COMPLETE EPS W/SVT ABL W/WO 3D MAP LA PACE REC Supraventricular tachycardia (HCC) 02/19/2024 11:55 AM EDT [facility] Start: 02-19-2024 Subsequent hospital visit by physician 02/19/2024 11:55 AM EDT Hospital Encounter [facility] 1 [place] [address] Naomy Thomas MD [address] [place] [phone] (Fax) Supraventricular tachycardia (HCC) [I47.10] [facility] Comment on above: Supraventricular tachycardia (HCC) [I47. 10] Start: 01-28-2024 End: 01-28-2024 Admission to same day surgery center 01/28/2024 8:30 AM EDT - 01/28/2024 12:40 PM EDT Surgery [facility] 1 [place] [address] Naomy Thomas MD [address] [place] [phone] COMPLETE EPS W/SVT ABL W/WO 3D MAP LA PACE REC [facility] Comment on above: COMPLETE EPS W/SVT ABL W/WO 3D MAP LA PA CE REC Start: 01-28-2024 End: 01-28-2024 Percutaneous transluminal ablation of atrioventricular node COMPLETE EPS W/SVT ABL W/WO 3D MAP LA PACE REC Supraventricular tachycardia (HCC) 01/28/2024 8:30 AM EDT [facility] Start: 01-28-2024 Subsequent hospital visit by physician 01/28/2024 8:30 AM EDT Hospital Encounter [facility] 1 [place] [address] Naomy Thomas MD [address] [place] [phone] (Fax) Supraventricular tachycardia (HCC) [I47.10] [facility] Comment on above: Supraventricular tachycardia (HCC) [I47. 10] Start: 01-16-2024 Subsequent hospital visit by physician 01/16/2024 Hospital Encounter [facility] 1 [place] [address] Naomy Thomas MD [address] [place] [phone] (Fax) Supraventricular tachycardia (HCC) [I47.10] [facility] Comment on above: Supraventricular tachycardia (HCC) [I47. 10] Start: 01-09-2024 End: 01-09-2024 Patient encounter procedure 01/09/2024 3:00 PM EDT Office Visit [facility] [address] [place], [place] [phone] Troy Byrd APRN.FULLING MACHINE OPERATOR [address] [place], [place] [phone] (Fax) H&P for SVT Ablation on 01/15 with JON EKG/eo [facility] Comment on above: H&P for SVT Ablation on 01/15 with JON *EKG/eo Start: 11-20-2023 [facility] Start: 11-20-2023 Enteric precautions [facility] Start: 07-28-2023 Behavioral Health Screening Behavioral Health Screening [facility] Start: 06-02-2023 FUV, Provider: Rudy Coker, Status: Pen, Time: 11:00 AM FUV, Provider: Rudy Coker, Status: Pen, Time: 11:00 AM [facility] Work Phone: Start: 03-28-2023 Covid-19 Vaccine ( season) Covid-19 Vaccine () [facility] Start: 03-28-2023 Influenza vaccination [facility] Start: 02-03-2023 FUV, Provider: Rudy Coker, Status: Pen, Time: 3:20 PM FUV, Provider: Rudy Coker, Status: Pen, Time: 3:20 PM [facility] [address] DO Work Phone: Start: 01-02-2023 Patient referral [facility] Work Phone: Start: 12-18-2022 Enteric precautions [facility] Start: 07-28-2022 DEPRESSION ASSESSMENT DEPRESSION ASSESSMENT [facility] Start: 05-01-2022 Colonoscopy w/biopsy single/multiple COLONOSCOPY AND BIOPSY [facility] Work Phone: Start: 05-01-2022 Colsc flx w/rmvl of tumor polyp lesion snare tq COLONOSCOPY W/LESION REMOVAL [facility] Work Phone: Start: 05-01-2022 Egd transoral biopsy single/multiple EGD BIOPSY SINGLE/MULTIPLE [facility] Work Phone: Start: 05-01-2022 Patient discharge [facility] Work Phone: Start: 04-26-2022 Patient referral [facility] Work Phone: Start: 01-16-2022 Elastase, pancreatic (el-1), fecal; quantitative [facility] Work Phone: Start: 01-16-2022 Giardia lamblia Ag [Presence] in Stool by Immunoassay [facility] Work Phone: Start: 01-16-2022 Ova and parasites identified in Unspecified specimen by Light microscopy [facility] Work Phone: Start: 01-16-2022 Protein measurement [facility] Work Phone: Start: 01-16-2022 Gastrin [Mass/volume] in Serum or Plasma [facility] Work Phone: Start: 01-14-2022 IgE [Units/volume] in Serum or Plasma [facility] Work Phone: Start: 01-14-2022 Serum immunofixation [facility] Work Phone: Start: 01-14-2022 [facility] Work Phone: Start: 03-26-2021 Comprehensive metabolic panel Metabolic Panel, Comprehensive (58967) [facility] Work Phone: Comment on above: May 21 2021 Start: 03-26-2021 Procedure Education Eprescribed prescriptions (G8553) [facility] Work Phone: Start: 03-23-2021 Procedure Education Eprescribed prescriptions (G8553) [facility] Work Phone: Start: 03-13-2021 Procedure Education Eprescribed prescriptions (G8553) [facility] Work Phone: Start: 03-13-2021 Provider Instructions for Treatment Follow up in 2 weeks for physical [facility] Work Phone: Start: 04-04-2020 25 hydroxy includes fractions if performed CALCIFEDIOL (36132) [facility] Work Phone: Start: 03-24-2020 Lipid panel LIPID PANEL (35134) [facility] Work Phone: Comment on above: May 02 2020 Start: 03-24-2020 Comprehensive metabolic panel Metabolic Panel, Comprehensive (83784) [facility] Work Phone: Start: 03-24-2020 Procedure Education Eprescribed prescriptions (G8553) [facility] Work Phone: Start: 03-24-2020 Provider Instructions for Treatment Follow up in 3 months [facility] Work Phone: Start: 02-28-2020 Blood count complete automated CBC & PLATELETS (AUTO) (94236) [facility] Work Phone: Comment on above: Mar 01 2020 Start: 02-28-2020 TSH Qn TSH (THYROID STIMULATING HORMONE) (06987) [facility] Work Phone: Comment on above: Mar 01 2020 Start: 02-28-2020 Lipid panel LIPID PANEL (39400) [facility] Work Phone: Comment on above: Mar 01 2020 Start: 02-28-2020 Comprehensive metabolic panel Metabolic Panel, Comprehensive (63127) [facility] Work Phone: Comment on above: Mar 01 2020 Start: 02-28-2020 Blood occult fecal hgb deter ia qual feces 1-3 FECAL OCCULT- Tubes sent home (93025) [facility] Work Phone: Start: 02-28-2020 Procedure Education Eprescribed prescriptions (G8553) [facility] Work Phone: Start: 02-28-2020 Provider Instructions for Treatment [facility] Work Phone: Start: 10-17-2019 Pneumococcal Vaccine: 50+ (2 of 2 - PCV) Pneumococcal Vaccine: 50+ (2 of 2 - PCV) [facility] Start: 10-17-2019 SHINGRIX VACCINE (1 of 2) SHINGRIX VACCINE (1 of 2) [facility] Start: 10-17-2019 Zoster Vaccines (1 of 2) Zoster Vaccines (1 of 2) [facility] Start: 06-28-2019 Patient Education Yeast Infection (Candidiasis) *: women's health [facility] Work Phone: Start: 06-28-2019 Procedure Education Eprescribed prescriptions (G8553) [facility] Work Phone: Start: 06-28-2019 Provider Instructions for Treatment Follow up if no improvement or if symptoms worsen [facility] Work Phone: Start: 06-16-2018 Procedure Education Eprescribed prescriptions (G8553) [facility] Work Phone: Start: 06-16-2018 Provider Instructions for Treatment [facility] Work Phone: Start: 06-16-2018 Cytp cerv/vag auto thin layer prep mnl screen [facility] Work Phone: Comment on above: vaginal cuff Start: 06-16-2018 Hpv, dna, amp probe HPV, Reflex (85651) [facility] Work Phone: Start: 04-13-2018 Lipid panel LIPID PANEL (24360) [facility] Work Phone: Start: 04-13-2018 Procedure Education Eprescribed prescriptions (G8553) [facility] Work Phone: Start: 04-13-2018 Provider Instructions for Treatment Follow up as needed [facility] Work Phone: Start: 05-05-2017 Procedure Education Eprescribed prescriptions (G8553) [facility] Work Phone: Start: 03-07-2017 Patient Education Allergies: rash [facility] Work Phone: Start: 03-07-2017 Procedure Education Eprescribed prescriptions (G8553) [facility] Work Phone: Start: 04-12-2016 Lipid panel LIPID PANEL (28338) [facility] Work Phone: Start: 04-05-2016 Provider Instructions for Treatment Follow up in 6 months [facility] Work Phone: Start: 05-15-2015 CBC, PLATELETS & MANUAL DIFF (51209) CBC, PLATELETS & MANUAL DIFF (43332) [facility] Work Phone: Start: 05-15-2015 Comprehensive metabolic panel METABOLIC PANEL, COMPREHENSIVE (20545) [facility] Work Phone: Start: 05-15-2015 Procedure Education Eprescribed prescriptions (G8553) [facility] Work Phone: Start: 02-10-2015 Patient Education Migraine Headache: Brief Version *: head [facility] Work Phone: Start: 02-10-2015 Procedure Education Eprescribed prescriptions (G8553) [facility] Work Phone: Start: 2014 COLOGUARD (FIT-DNA) COLOGUARD (FIT-DNA) [facility] Start: 2014 Colonoscopy COLONOSCOPY [facility] Start: 2014 COLORECTAL CANCER SCREENING COLORECTAL CANCER SCREENING [facility] Start: [address] COLONOGRAPHY [facility] Start: 2014 DIABETES SCREEN DIABETES SCREEN [facility] Start: 2014 Diabetes Screening Diabetes Screening [facility] Start: 2014 FECAL OCCULT BLOOD FECAL OCCULT BLOOD [facility] Start: 2014 Lipid 1996 panel - Serum or Plasma Lipid Screening [facility] Start: 2014 Lipid panel Lipid Screening [facility] Start: 2014 LIPID SCREEN LIPID SCREEN [facility] Start: 2014 Screening for malignant neoplasm of colon [facility] Start: 2014 SIGMOIDOSCOPY SIGMOIDOSCOPY [facility] Start: 10-03-2014 Provider Instructions for Treatment Follow up if no improvement or if symptoms worsen [facility] Work Phone: Start: 05-16-2014 Provider Instructions for Treatment Follow up if no improvement or if symptoms worsen [facility] Work Phone: Start: 05-11-2014 Procedure Education Eprescribed prescriptions (G8085) [facility] Work Phone: Start: 12-07-2013 Assay of lipase Lipase (62090) [facility] Work Phone: Comment on above: stat Start: 12-07-2013 Comprehensive metabolic panel METABOLIC PANEL, COMPREHENSIVE (86379) [facility] Work Phone: Comment on above: stat Start: 12-07-2013 Blood count manual cell count each CBC WITH MANUAL DIFF (70474) [facility] Work Phone: Comment on above: stat Start: 12-07-2013 Sedimentation rate rbc non-automated SED RATE ERYTHROCYTE (06608) [facility] Work Phone: Start: 12-07-2013 C-reactive protein C-REACTIVE PROTEIN (17254) [facility] Work Phone: Start: 12-07-2013 CRP mass conc C-REACTIVE PROTEIN (68862) [facility] Work Phone: Start: 12-07-2013 Ova&parasites direct smears concentration & id OVA & PARASITE DIR SMEAR (05330) [facility] Work Phone: Start: 12-07-2013 Leukocyte assmt fecal qual/semiquantitative LEUKOCYTE COUNT, FECAL (54971) [facility] Work Phone: Start: 12-07-2013 Culture bacterial any source anaerobic iso&id C-DIFFICILE, STOOL (60276) [facility] Work Phone: Start: 12-07-2013 Cul bact stool aerobic isol salmonella&shigell LANDRY CULTURE-STOOL (77884) [facility] Work Phone: Start: 12-07-2013 Provider Instructions for Treatment [facility] Work Phone: Start: 07-09-2013 Provider Instructions for Treatment Follow up - Make appt after diagnostic tests [facility] Work Phone: Start: 07-02-2013 Provider Instructions for Treatment Follow up in 1 week [facility] Work Phone: Start: 06-11-2013 Patient Education [facility] Work Phone: Start: 10-08-2012 Patient Education Urinary Tract Infection in Women *: gynecological health [facility] Work Phone: Start: 10-08-2012 Provider Instructions for Treatment *Abd Pain Red Flags [facility] Work Phone: Start: 10-08-2012 Comprehensive metabolic panel Metabolic Panel, Comprehensive (98772) [facility] Work Phone: Start: 10-08-2012 Blood count complete automated CBC (Auto) (06058) [facility] Work Phone: Start: 09-22-2012 Patient Education Migraine Headache: Brief Version *: head [facility] Work Phone: Start: 04-15-2012 Patient Education Depression: Brief Version *: depression [facility] Work Phone: Start: 03-16-2012 Patient Education Chest Pain, Noncardiac: pain [facility] Work Phone: Start: 11-27-2011 Assay of thyroid stimulating hormone tsh TSH (48712) [facility] Work Phone: Start: 11-27-2011 Thyrotropin Qn TSH (29551) [facility] Work Phone: Start: 11-27-2011 Blood count manual cell count each CBC WITH MANUAL DIFF (19439) [facility] Work Phone: Start: 11-27-2011 Comprehensive metabolic panel METABOLIC PANEL, COMPREHENSIVE (93091) [facility] Work Phone: Start: 06-25-2010 Provider Instructions for Treatment *Antibiotic Usage Education - Female [facility] Work Phone: Start: 04-12-2010 Provider Instructions for Treatment [facility] Work Phone: Start: 02-26-2010 Provider Instructions for Treatment [facility] Work Phone: Start: 02-26-2010 Cytp cerv/vag auto thin layer prep mnl screen Thin prep Pap (17097) [facility] Work Phone: Start: 2009 Mammography [facility] Start: 2009 Screening for malignant neoplasm of breast [facility] Start: 10-07-2008 Cul prsmptv pthgnc organism scrn w/colony estimj CULTURE, GONOCOCCUS (90802) [facility] Work Phone: Start: 10-07-2008 Culture chlamydia any source CULTURE CHLAMYDIA (87482) [facility] Work Phone: Start: 10-07-2008 Smr prim src wet mount nfct agt WET MOUNT (67072) [facility] Work Phone: Comment on above: with malou Start: 10-07-2008 Culture bacterial quanttative colony count urine URINE LANDRY CULTURE (LUZMA COL COUNT) (07568) [facility] Work Phone: Start: 08-22-2008 Gonadotropin luteinizing hormone GONADOTROPIN-LH (89817) [facility] Work Phone: Start: 08-22-2008 Gonadotropin follicle stimulating hormone GONADOTROPIN-FSH (95825) [facility] Work Phone: Start: 08-22-2008 Assay of thyroid stimulating hormone tsh TSH (36139) [facility] Work Phone: Start: 08-22-2008 Thyrotropin Qn TSH (57878) [facility] Work Phone: Start: 08-22-2008 Creatine kinase isoenzymes CPK TOTAL & ISOENZYMES (95845) [facility] Work Phone: Start: 05-27-2008 Pneumococcal vaccination Pneumococcal Vaccine (2 of 2 - PCV) [facility] Start: 10-12-2007 Provider Instructions for Treatment [facility] Work Phone: Start: 05-27-2007 Urnls dip stick/tablet rgnt auto w/o microscopy URINALYSIS W/O MICRO (62846) [facility] Work Phone: Start: 05-27-2007 Assay of thyroid stimulating hormone tsh TSH (63567) [facility] Work Phone: Start: 05-27-2007 Thyrotropin Qn TSH (57908) [facility] Work Phone: Start: 05-27-2007 Comprehensive metabolic panel METABOLIC PANEL, COMPREHENSIVE (02788) [facility] Work Phone: Start: 05-27-2007 Blood count manual cell count each CBC WITH MANUAL DIFF (00364) [facility] Work Phone: Start: 11-19-2006 Sedimentation rate rbc non-automated SED RATE ERYTHROCYTE (42546) [facility] Work Phone: Start: 11-19-2006 C-reactive protein C-REACTIVE PROTEIN (80458) [facility]; [facility] Work Phone: Start: 11-19-2006 CRP mass conc C-REACTIVE PROTEIN (13491) [facility] Work Phone: Start: 11-19-2006 Rheumatoid factor quantitative RHEUMATOID FACTOR-QUANT (31335) [facility] Work Phone: Start: 11-19-2006 Antinuclear antibodies ramirez RAMIREZ (ANTINUCLEAR ANTIBODY) (92345) [facility]; [facility] Work Phone: Start: 11-19-2006 Nuclear Ab IF titer (S) RAMIREZ (ANTINUCLEAR ANTIBODY) (22072) [facility] Work Phone: Start: 11-19-2006 Urnls dip stick/tablet rgnt auto w/o microscopy URINALYSIS W/O MICRO (55456) [facility] Work Phone: Start: 11-19-2006 Blood count manual cell count each CBC WITH MANUAL DIFF (54211) [facility] Work Phone: Start: 11-19-2006 Comprehensive metabolic panel METABOLIC PANEL, COMPREHENSIVE (16241) [facility] Work Phone: Start: 10-17-1999 HPV TESTING HPV TESTING [facility] Start: 10-17-1999 Screening for malignant neoplasm of cervix HPV Testing [facility] Start: 10-17-1991 DTaP/Tdap/Td Vaccines (1 - Tdap) DTaP/Tdap/Td Vaccines (1 - Tdap) [facility] Start: 1990 PAP TESTING PAP TESTING [facility] Start: 1990 Screening for malignant neoplasm of cervix [facility] Start: 1988 Hepatitis A Vaccines (1 of 2 - Risk 2-dose series) Hepatitis A Vaccines (1 of 2 - Risk 2-dose series) [facility] Start: 1988 Hepatitis B Vaccine (1 of 3 - 19+ 3-dose series) Hepatitis B Vaccine (1 of 3 - 19+ 3-dose series) [facility] Start: 1988 Hepatitis B Vaccines (1 of 3 - 19+ 3-dose series) Hepatitis B Vaccines (1 of 3 - 19+ 3-dose series) [facility] Start: 1988 Urine microalbumin profile [facility] Start: 10-17-1987 ANNUAL PCP TEAM CHRONIC DISEASE VISIT ANNUAL PCP TEAM CHRONIC DISEASE VISIT [facility] Start: 10-17-1987 Anxiety Screening Anxiety Screening [facility] Start: 10-17-1987 BP CONTROLLED (<130/80) BP CONTROLLED (<130/80) [facility] in Start: 10-17-1987 Depression Screening Depression Screening [facility] Start: 10-17-1987 Diabetes mellitus screening Diabetes Screening [facility] Start: 10-17-1987 HEPATITIS C SCREENING HEPATITIS C SCREENING [facility] Start: 10-17-1987 Hepatitis C screening Hepatitis C Screening [facility] Start: 10-17-1987 HIV SCREENING HIV SCREENING [facility] Start: 10-17-1987 HIV screening HIV Screening [facility] Start: 1970 MMR Vaccines (1 of 1 - Standard series) MMR Vaccines (1 of 1 - Standard series) [facility] Start: 04-18-1970 COVID-19 VACCINE (#1) COVID-19 VACCINE (#1) [facility] Start: 1969 HEPATITIS B (1 of 3 - 3-dose series) HEPATITIS B (1 of 3 - 3-dose series) [facility] Start: 1969 Hepatitis B Vaccine (1 of 3 - 3-dose series) Hepatitis B Vaccine (1 of 3 - 3-dose series) [facility] Start: 1969 HIV screening HIV Screening [facility] Start: 1969 Lipid panel Lipid Panel [facility] Start: 1969 Screening for malignant neoplasm of colon [facility] Start: 1969 Yearly Adult Physical Yearly Adult Physical [facility] Albumin [Moles/volum e] in Serum or Plasma [facility] Work Phone: Albumin/Globulin ratio [facility] Work Phone: Blood chemistry [facility] Clostridioides diffi cile DNA [Presence] in Unspecified specimen by BAM with probe detection [facility] CT Abdomen and Pelvi s W contrast IV [facility] Work Phone: End: 03-25-2025 CT Chest WO contrast CT CHEST WO IVCON Radiology Routine Nonrheumatic mitral valve regurgitation 1 Occurrences starting 02/24/2024 until 03/25/2025 [facility] Comment on above: 1 Occurrences starting 02/24/2024 until 03/25/2025 End: 04-09-2025 CTA Chest vessels and Abdominal vessels and Pelvis vessels W contrast IV CTA CHEST/ABD/PEL (GATED) W IVCON Radiology Routine Disorder of artery or arteriole (HCC) Pre-operative cardiovascular examination Mitral valve disorder 1 Occurrences starting 03/10/2024 until 04/09/2025 [facility] Comment on above: 1 Occurrences starting 03/10/2024 until 04/09/2025 End: 03-10-2025 ECG COMPLETE ECG COMPLETE ECG Routine Disorder of artery or arteriole (HCC) Pre-operative cardiovascular examination Mitral valve disorder 1 Occurrences starting 03/10/2024 until 03/10/2025 [facility] Comment on above: 1 Occurrences starting 03/10/2024 until 03/10/2025 End: 04-16-2025 ECG COMPLETE ECG COMPLETE ECG Routine Surgery follow-up 1 Occurrences starting 04/16/2024 until 04/16/2025 [facility] Comment on above: 1 Occurrences starting 04/16/2024 until 04/16/2025 End: 03-10-2025 Echocardiography ECHO Cardiology Routine Disorder of artery or arteriole (HCC) Pre-operative cardiovascular examination Mitral valve disorder 1 Occurrences starting 03/10/2024 until 03/10/2025 [facility] Comment on above: 1 Occurrences starting 03/10/2024 until 03/10/2025 Electrophoresis: [id number] [facility] Work Phone: Electrophoresis: deanna ma globulin [facility] Work Phone: Gastrin [Mass/volume ] in Serum or Plasma [facility] Work Phone: Gastrointestinal pathogens panel - Stool by BAM with probe detection [facility] Giardia lamblia Ag [Presence] in Stool by Immunoassay [facility] Work Phone: Giardia lamblia Ag [Presence] in Stool by Immunoassay [facility] Globulin measurement [facility] Work Phone: IgA [Mass/volume] in Serum or Plasma [facility] Work Phone: IgE [Units/volume] i n Serum or Plasma [facility] Work Phone: IgG [Mass/volume] in Serum or Plasma [facility] Work Phone: IgM [Mass/volume] in Serum or Plasma [facility] Work Phone: INTERACTIVE HEART SURGERY PROGRAM INTER[facility] SURGERY PROGRAM Procedures Routine Disorder of artery or arteriole (HCC) Pre-operative cardiovascular examination Mitral valve disorder Ordered: 03/10/2024 [facility] Comment on above: Ordered: 03/10/2024 End: 03-25-2025 LUNG DIFFUSION CAPACITY (DLCO) LUNG DIFFUSION CAPACITY (DLCO) PFT Routine Nonrheumatic mitral valve regurgitation 1 Occurrences starting 02/24/2024 until 03/25/2025 [facility] Comment on above: 1 Occurrences starting 02/24/2024 until 03/25/2025 End: 03-25-2025 LUNG VOLUMES LUNG VOLUMES PFT Routine Nonrheumatic mitral valve regurgitation 1 Occurrences starting 02/24/2024 until 03/25/2025 [facility] Comment on above: 1 Occurrences starting 02/24/2024 until 03/25/2025 MR [facility] Work Phone: Neutrophil cytoplasm ic Ab.classic [Units/volume] in Serum [facility] Work Phone: Ova and parasites identified in Unspecified specimen by Light microscopy [facility] Work Phone: P-ANCA measurement [facility] Work Phone: Patient Education [facility] Work Phone: Patient referral [facility] Work Phone: Percutaneous transluminal ablation of atrioventricular node COMPLETE EPS W/SVT ABL W/WO 3D MAP LA PACE REC Supraventricular tachycardia (HCC) [place] [facility] Procedure [facility] Work Phone: Protein electrophore sis panel - Serum or Plasma [facility] Work Phone: Radionuclide gastric emptying study [facility] Work Phone: Serum protein electrophoresis [facility] Work Phone: End: 03-25-2025 SPIROMETRY BASELINE ONLY SPIROMETRY BASELINE ONLY PFT Routine Nonrheumatic mitral valve regurgitation 1 Occurrences starting 02/24/2024 until 03/25/2025 [facility] Work Phone: Comment on above: 1 Occurrences starting 02/24/2024 until 03/25/2025 [facility] End: 04-09-2025 XR Chest PA and Lateral XR CHEST 2V FRONTAL/LAT Radiology Routine Disorder of artery or arteriole (HCC) Pre-operative cardiovascular examination Mitral valve disorder 1 Occurrences starting 03/10/2024 until 04/09/2025 [facility] Comment on above: 1 Occurrences starting 03/10/2024 until 04/09/2025 End: 05-16-2025 XR Chest PA and Lateral XR CHEST 2V FRONTAL/LAT Radiology Routine Surgery follow-up 1 Occurrences starting 04/16/2024 until 05/16/2025 [facility] Comment on above: 1 Occurrences starting 04/16/2024 until 05/16/2025 End: 05-27-2025 XR Chest PA and Lateral XR CHEST 2V FRONTAL/LAT Radiology Routine Pleural effusion 1 Occurrences starting 04/27/2024 until 05/27/2025 [facility] Work Phone: Comment on above: 1 Occurrences starting 04/27/2024 until 05/27/2025 [facility] Work Phone: [facility] Work Phone: [facility] Work Phone: [facility] Work Phone: [facility] Work Phone: [facility] Work [facility] Work [facility] Work Phone[facility] Work [facility] Work Phone: [facility] Work [facility] Work Phone: [facility] Work Phone: [facility] Work Phone: [facility] Work Phone: [facility] Work Phone[facility] Work Phone: [facility] Work Phone: [facility] Work Phone: [facility] Work Phone: [facility] Work Phone: [facility] Work Phone: [facility] Work Phone: [facility] Work Phone: [facility] Work Phone: [facility] Work Phone: [facility] Work Phone: [facility] Work Phone: [facility] Work Phone: [facility] Work Phone: [facility] Work Phone: [facility]; [facility] Work Phone: [facility] Work Phone: [facility] Immunizations Immunization Date Immunization Notes Care Provider [facility] 04-21-2014 influenza, seasonal, injectable, preservative free Nathan Nnamdi [facility] Work Phone: [facility] Work Phone: 04-21-2014 influenza virus vaccine, unspecified formulation Naomy Thomas MD Work Phone: [facility] 05-27-2007 pneumococcal polysaccharide vaccine, 23 valent Shilpa Zairennamdi [facility] Internal Medicine Work Phone: Comment on above: given 0.5cc im in ri ght deltoid lot#[id number] exp. Payers Date Payer Category Payer Self-pay [id number] 2021 Managed Care (Private) [employer] [id number] 2018 Private Health Insurance [employer] [id number] 2018 Unknown 2003 Unknown [id number] 1969 Unknown [id number] 2.840.1.516088.3.579. 2.627 1969 Unknown [id number] 2.840.1.921233.3.579. 2.356 1969 Unknown [id number] 2.16840.1.670553.3.579. 2.356 1969 Unknown [id number] 2.16840.1.293364.3.579. 2.1245 1969 Unknown [id number] 2.840.1.280807.3.579. 2.1244 1969 Unknown [id number] 2.16840.1.724206.3.579. 2.1244 Unknown . [id number] Unknown [id number] 2.16840.1.402895.3.579. 2.462 Unknown [id number] 2.16840.1.140298.3.579. 2.462 Unknown [id number] 2.16840.1.575025.3.579. 2.462 Unknown [id number] 2.16.840.1.727777.3.579. 2.462 Unknown [id number] 2.840.1.525873.3.579. 2.462 Unknown [id number] 2.840.1.014786.3.579. 2.462 Unknown [id number] 2.840.1.256963.3.579. 2.462 Unknown [id number] 2.840.1.673726.3.579. 2.462 Unknown [id number] 2.840.1.762913.3.579. 2.462 Unknown [id number] 2.840.1.354181.3.579. 2.462 Unknown [id number] 2.840.1.552126.3.579. 2.462 Unknown [id number] 2.840.1.101719.3.579. 2.462 Unknown [id number] 2.840.1.471263.3.579. 2.462 Unknown [id number] 2.840.1.859453.3.579. 2.462 Unknown [id number] 2.840.1.181380.3.579. 2.462 Unknown [id number] 2.840.1.461784.3.579. 2.462 Unknown [id number] 2.840.1.128424.3.579. 2.462 Unknown [id number] 2.840.1.842005.3.579. 2.462 Unknown [id number] 2.840.1.596189.3.579. 2.462 Unknown [id number] 2.16.840.1.479360.3.579. 2.462 Unknown [id number] 2.16.840.1.418280.3.579. 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 [facility] Work Phone: Comment on above: 11/27/11 Tobacco use: Tobacco use: [facility]; [facility] Work Phone: Comment on above: 11/27/11 Start: 01-14-2022 End: 11-20-2023 Tobacco smoking status [facility] Unknown if ever smoked [facility] Start: 09-18-2014 None [facility] Start: 09-18-2014 Spouse/ Signif icant Other [facility] Start: 09-18-2014 Non-smoker [facility] Start: 1970 Sex Assigned At Female W [facility] Start: 04-21-2019 End: 06-17-2024 Tobacco smoking status [facility]IS Ex-smoker [facility] Start: 10-03-1990 End: 10-04-1995 History of tobacco use Current smoker [facility] Start: 10-03-1990 End: 10-04-1995 History of tobacco use Cigarette Smoker [facility] Start: 04-21-2019 End: 04-12-2024 Tobacco use and exposure Smokeless tobacco non-user [facility] Start: 01-15-2023 End: 04-27-2024 Alcohol intake Current drinker of alcohol (finding) [facility] Start: 03-30-2021 Alcohol Comment social Ju [facility] Start: 1970 Sex Assigned At Not on file [facility] Start: 01-15-2023 End: 04-27-2024 Tobacco use panel [facility] National Score (1-10 0), lower number is lower risk 53 [facility] Start: 10-03-1990 Tobacco smoking stat us NHIS Smokes tobacco daily [facility] Start: 06-14-2024 Tobacco smoking stat us NHIS Never smoked tobacco [facility] Start: 06-15-2024 Alcoholic beverage intake Lifetime non-drinker (finding) [facility] Work Phone: Start: 06-04-2024 End: 06-14-2024 Exposure to SARS-CoV-2 (event) Not sure [facility] Start: 10-07-2024 Sex Female (finding) [facility] Medical Equipment Procedure Code Equipment Code Equipment Origin al Text Equipment Identifier Dates Total cholecystectomy with exploration of common bile duct Ligation clip, synthetic polymer, non-bioabsorbable [id number] FDA Start: 05-15-2021 [place] Thk1.65mm P tfe 4x.5in Cardiovascular Sterile - [id number] Start: 04-14-2024 Band Rodríguez Ancor e 33mm Annuloplasty Chordal Guide - [id number] Start: 04-14-2024 Goals Date Patient Goal Desired Activity /State Personal health goal Personal health goal Mental Status Date Assessment Result Facility 12-24-2022 Cognitive function Voice/Name [facility] Work Phone: 05-01-2022 Cognitive function Voice/Name [facility] Work Phone: 05-01-2022 Cognitive function Patient Orien tation Person;Place;Time [facility] Work Phone: Clinical Notes 01-15-2023 to 10-22-2024 Asia Sam, SEBASTIAN - 10/22/2024 1:45 PM EDT Note Date & Type Note Facility 10-22-2024 Note [facility] 10-22-2024 History of Present illness Narrative QOL Call Tracking Documentation Follow-Up Type: Phone Call Call Attempt: 1st Attempt Call Status: Left Message documented in this encounter [facility] 09-23-2024 Evaluation note Diagnosis Onset Date Resolution Essential hypertension chronic Fe bruary 2024 10:33am Mitral regurgitation chronic Febr uary 2024 10:33am Mitral valve prolapse chronic Feb ruary 2024 10:33am Psoriatic arthritis chronic Febru ya 2024 10:33am Pure hypercholesterolemia, unspecified chronic September 23, 025 10:33am S/P mitral valve repair chronic F ebruary 2024 10:33am SVT (supraventricular tachycardia) chronic September 23 10:33am [facility] Work Phone: 1(495) 295-242211-18-2024 History of Present illness Narrative* Rudynithin Coker, DO - 06/14/2024 1:40 PM EST Follow-up Rheumatology Patient Visit Chief Complaint: Cammie Bhat is a 53 y.o. female presenting today for Follow-up. History of Presenting Problem: 53 y/o female with Diagnosed with psoristic arthritis present for evaluation. She report she started to have joint pain in her 30's. She report she use to have skin psoriasis as a teenager which was treated with topical but after she started to developed some joint signs in her late 20's she was started on Enbrel by her head stock transfer clerk. She was sent to a catalogue and special products manager who switch her to Humira which worked for 15 years. She report it stopped working and since then has been on a variety of regimens. She report her worse joint is her knees, She report occasional ankle pain worse on the left, She report occasional wrist pain worse with using knifes. She has been off Orencia x 6 weeks, She report she had been on it for 5 months but stopped working. She has tried Aleve, Motrin and prednisone which did not help. Today she report she feels better taking Celebrex and Tremfraya per dermatology. She only takes Celebrex 2-3 times a week. Previous meds: Enbrel- did work, switch to Humira Humira- stopped working after 15 yrs Cosentyx- work but only took 1 year due to insurance coverage Talz- Allergic reaction Stelara- did not work Orencia- not working very well. no convectional DMARDs Problem List: Patient Active Problem List Diagnosis Arthropathy Primary osteoarthritis of both hands Psoriasis Past Medical History: No past medical history on file. Surgical History: No past surgical history on file. Allergies: Allergies Allergen Reactions Penicillins Unknown Taltz Autoinjector [Ixekizumab] Unknown Vicodin [Hydrocodone-Acetaminophen] Unknown Medications: Current Outpatient Medications: amLODIPine (Norvasc) 5 mg tablet, Take 1 tablet (5 mg) by mouth early in the morning.., Disp: , Rfl: celecoxib (CeleBREX) 200 mg capsule, take 1 capsule by mouth once daily if needed for mild pain, Disp: 30 capsule, Rfl: 1 desvenlafaxine 50 mg 24 hr tablet, Take 1 tablet (50 mg) by mouth once daily. Do not crush, chew, or split., Disp: , Rfl: guselkumab (Tremfya) 100 mg/mL injection, Inject 1 mL (100 mg) under the skin 1 time., Disp: , Rfl: losartan (Cozaar) 50 mg tablet, Take 1 tablet (50 mg) by mouth once daily., Disp: , Rfl: metoprolol tartrate (Lopressor) 25 mg tablet, Take 1 tablet (25 mg) by mouth once daily., Disp: , Rfl: pantoprazole (ProtoNix) 40 mg EC tablet, Take 1 tablet (40 mg) by mouth once daily in the morning. Take before meals. 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 Hips; WNL, full ROM, Negative Alphonse test Ankle, Feet; WNL, full ROM Skin: No rashes or lesions seen, no nail changes Neuro: A&O x3, Normal Gait Procedures :None Orders: No orders of the defined types were placed in this encounter. Provider Impression: Assessment/Plan Encounter Diagnoses Name Primary? Primary osteoarthritis of both hands Yes Psoriasis 52 y/o female with Diagnosed with psoristic arthritis present for evaluation. Patient has been treated with a variety of regimen with only Humira apparently working for 15 years she has not had any consistent improvement with other Biologics, current Biologics Orencia has been off of this for 6 weeks. On exam she does not have any inflammatory. Most of her joint pain is with activity -Continue with Celebrex daily, and try to wean to every other day as needed. -Continue with Tremfrya per dermatology -Follow[facility] in [facility]: 1(662) 372-980011-01-2024 NoteHNO ID: [id number] Author: ?, ?, ? Service: ? Author Type: ? Type: Progress Notes Filed: 05/28/2024 10:48 Note Text: QOL Call Tracking Documentation Follow-Up Type: Phone Call Call Attempt: 1st Attempt Call Status[facility] History of Present illness Narrative* Rose Benitez - 05/28/2024 10:48 AM EDT QOL Call Tracking Documentation Follow-Up Type: Phone Call Call Attempt: 1st Attempt Call Status: Left Message [facility] Telephone encounter Note * Telephone Encounter - Demetrice Gilbert - 05/17/2024 12:38 PM EDT From: Elizabeth Greenwood Marc Sent: Tuesday, May 14, 2024 5:12 AM To: Cammie Bhat ; Demetrice Gilbert Subject: Re: [EXT] Post-surgical question Please ask your doctor at home. Or we can see you in [place]. Get Geronimo for R17 From: Cammie Bhat Sent: Tuesday, May 14, 2024 5:17 AM To: Elizabeth Greenwood Marc Subject: Re: [EXT] Post-surgical question I m better just have pain, can I get something for the pain now? I have 6 cuts not 4. Sent from my iPhone On May 11, 2024, at 5:55?AM, Elizabeth Greenwood Marc wrote: ?Best to ask your local doctor fish egg packer for such a prescription as I cannot provide one. Igor Greenwood MD Professor and Chair, Department of Thoracic & Cardiovascular Surgery The Elle Gupta Chair in Heart Valve Research Chair, [facility]-supported Cardiothoracic [place] [address] Email: [email or web address] From: Cammie Bhat Sent: Saturday, May 11, 2024 1:11 AM To: Elizabeth Greenwood Marc Subject: Re: [EXT] Post-surgical question I honestly think if I could just have another week or 2 worth of the pain meds that I d be ok. The pain is making me nuts! Sent from my iPhone On May 09, 2024, at 7:15?AM, Elizabeth Greenwood Marc wrote: ? I would certainly talk to a psychologist or psychiatrist. There is an incidence of depression after heart surgery. So, this can occur. It can be treated and you should feel better. I can help arrange if you want to be seen here. Igor Greenwood MD Professor and Chair, Department of Thoracic & Cardiovascular Surgery The Elle Gupta Chair in Heart Valve Research Chair, [facility]-supported Cardiothoracic [place] [address] Email: From: Cammie Bhat Sent: Thursday, May 09, 2024 5:36 AM To: Elizabeth Greenwood Marc Subject: Re: [EXT] Post-surgical question Actually I ve felt different and horrible since I ve had this surgery. I don t know what it is but I m totally depressed and almost suicidal. It s scary. I don t even know what to do. I wish I would never have gotten the surgery!! Sent from my iPhone On May 07, 2024, at 1:45?PM, Cammie Bhat wrote: ?Thank you so much! I will let you know?? Sent from my iPhone On May 07, 2024, at 1:42?PM, Elizabeth Greenwood Marc wrote: ? Can restart them now. Let me know if pain persists--have other options. Igor Greenwood MD Professor and Chair, Department of Thoracic & Cardiovascular Surgery The Elle Gupta Chair in Heart Valve Research Chair, [employer]-supported Cardiothoracic [place] [address] Email: [email or web address] [facility]10-21-2024 Miscellaneous Notes* Telephone Encounter - Demetrice Gilbert - 05/17/2024 12:38 PM EDT From: Elizabeth Greenwood Marc < > Sent: Tuesday, May 14, 2024 5:12 AM To: Cammie Bhat <[email or web address]>; Demetrice Gilbert < > Subject: Re: [EXT] Post-surgical question Please ask your doctor at home. Or we can see you in [place]. Get Geronimo for iOS From: Cammie Bhat <[email or web address]> Sent: Tuesday, May 14, 2024 5:17 AM To: Elizabeth Greenwood Marc < > Subject: Re: [EXT] Post-surgical question I m better just have pain, can I get something for the pain now? I have 6 cuts not 4. Sent from my iPhone On May 11, 2024, at 5:55?AM, Elizabeth Greenwood Marc < > wrote: ?Best to ask your local doctor fish egg packer for such a prescription as I cannot provide one. Igor Greenwood MD Professor and Chair, Department of Thoracic & Cardiovascular Surgery The Elle Gupta Chair in Heart Valve Research Chair, [facility]-supported Cardiothoracic [place] [address] Email: [email or web address] From: Cammie Bhat <[email or web address]> Sent: Saturday, May 11, 2024 1:11 AM To: Elizabeth Greenwood Marc < > Subject: Re: [EXT] Post-surgical question I honestly think if I could just have another week or 2 worth of the pain meds that I d be ok. The pain is making me nuts! Sent from my iPhone On May 09, 2024, at 7:15?AM, Elizabeth Greenwood Marc < > wrote: ? I would certainly talk to a psychologist or psychiatrist. There is an incidence of depression after heart surgery. So, this can occur. It can be treated and you should feel better. I can help arrange if you want to be seen here. Igor Greenwood MD Professor and Chair, Department of Thoracic & Cardiovascular Surgery The Elle Gupta Chair in Heart Valve Research Chair, [facility]-supported Cardiothoracic [place] [address] Email: [email or web address] From: Cammie Bhat <[email or web address]> Sent: Thursday, May 09, 2024 5:36 AM To: Elizabeth Greenwood Marc < > Subject: Re: [EXT] Post-surgical question Actually I ve felt different and horrible since I ve had this surgery. I don t know what it is but I m totally depressed and almost suicidal. It s scary. I don t even know what to do. I wish I would never have gotten the surgery!! Sent from my iPhone On May 07, 2024, at 1:45?PM, Cammie Bhat <[email or web address]> wrote: ?Thank you so much! I will let you know?? Sent from my iPhone On May 07, 2024, at 1:42?PM, Elizabeth Greenwood Marc <[email or web address]> wrote: ? Can restart them now. Let me know if pain persists--have other options. Igor Greenwood MD Professor and Chair, Department of Thoracic & Cardiovascular Surgery The Elle Gupta Chair in Heart Valve Research Chair, [facility]-supported Cardiothoracic [place] [address] Email: [email or web address] documented in this encounter[facility] Telephone encounter Note * Telephone Encounter - Demetrice Gilbert - 05/10/2024 7:56 AM EDT From: Elizabeth Greenwood Marc Sent: Thursday, May 09, 2024 7:15 AM To: Cammie Bhat Cc: Demetrice Gilbert Subject: Re: [EXT] Post-surgical question I would certainly talk to a psychologist or psychiatrist. There is an incidence of depression after heart surgery. So, this can occur. It can be treated and you should feel better. I can help arrange if you want to be seen here. Igor Greenwood MD Professor and Chair, Department of Thoracic & Cardiovascular Surgery The Elle Gupta Chair in Heart Valve Research Chair, [facility]-supported Cardiothoracic [place] [address] Email: [email or web address] From: Cammie Bhat Sent: Thursday, May 09, 2024 5:36 AM To: Elizabeth Greenwood Marc Subject: Re: [EXT] Post-surgical question Actually I ve felt different and horrible since I ve had this surgery. I don t know what it is but I m totally depressed and almost suicidal. It s scary. I don t even know what to do. I wish I would never have gotten the surgery!! Sent from my iPhone On May 07, 2024, at 1:45?PM, Cammie Bhat wrote: ?Thank you so much! I will let you know?? Sent from my iPhone On May 07, 2024, at 1:42?PM, Elizabeth Greenwood Marc wrote: ? Can restart them now. Let me know if pain persists--have other options. Igor Greenwood MD Professor and Chair, Department of Thoracic & Cardiovascular Surgery The Elle Gupta Chair in Heart Valve Research Chair, [facility]-supported Cardiothoracic [place] [address] Email: [email or web address] From: Cammie Bhat Sent: Tuesday, May 07, 2024 1:38 PM To: Elizabeth Grenewood Marc Subject: [EXT] Post-surgical question Hi Dr. Greenwood, I m just writing you to ask when I can restart my Tremfya and Celebrex. My surgery was April 14. I had the robotic mitral valve repair. I m still having quite a bit of pain but I m managing it with the Tylenol and ibuprofen. My blood pressure has increased and they had to double my metoprololbut I go back to my local fish egg packer the end of the month. Thank you so much for your time. Cammie Bhat Sent from my iPhone [facility]10-14-2024 Miscellaneous Notes* Telephone Encounter - Demetrice Gilbert - 05/10/2024 7:56 AM EDT From: Elizabeth Greenwood Marc < > Sent: Thursday, May 09, 2024 7:15 AM To: Cammie Bhat <[email or web address] Cc: Demetrice Gilbert < > Subject: Re: [EXT] Post-surgical question I would certainly talk to a psychologist or psychiatrist. There is an incidence of depression after heart surgery. So, this can occur. It can be treated and you should feel better. I can help arrange if you want to be seen here. Igor Greenwood MD Professor and Chair, Department of Thoracic & Cardiovascular Surgery The Elle Gupta Chair in Heart Valve Research Chair, [facility]-supported Cardiothoracic [place] [address] Email: From: Cammie Bhat <[email or web address] Sent: Thursday, May 09, 2024 5:36 AM To: Elizabeth Greenwood Marc < > Subject: Re: [EXT] Post-surgical question Actually I ve felt different and horrible since I ve had this surgery. I don t know what it is but I m totally depressed and almost suicidal. It s scary. I don t even know what to do. I wish I would never have gotten the surgery!! Sent from my iPhone On May 07, 2024, at 1:45?PM, Cammie Bhat <[email or web address]> wrote: ?Thank you so much! I will let you know?? Sent from my iPhone On May 07, 2024, at 1:42?PM, Elizabeth Greenwood Marc < > wrote: ? Can restart them now. Let me know if pain persists--have other options. Igor Greenwood MD Professor and Chair, Department of Thoracic & Cardiovascular Surgery The Elle Gupta Chair in Heart Valve Research Chair, [facility]-supported Cardiothoracic [place] [address] Email: [email or web address] From: Cammie Bhat <[email or web address]> Sent: Tuesday, May 07, 2024 1:38 PM To: Elizabeth Greenwood, Igor <[email or web address]> Subject: [EXT] Post-surgical question Hi Dr. Greenwood, I m just writing you to ask when I can restart my Tremfya and Celebrex. My surgery was April 14. I had the robotic mitral valve repair. I m still having quite a bit of pain but I m managing it with the Tylenol and ibuprofen. My blood pressure has increased and they had to double my metoprololbut I go back to my local fish egg packer the end of the month. Thank you so much for your time. Cammie Bhat Sent from my iPhone documented in this encounterMer[facility]10-04-[facility]24 Telephone encounter Note * Telephone Encounter - Lisa Shah RN - 04/30/2024 12:01 PM EDT Images from the original note were not included. [facility] Phone Encounter DATE of SERVICE: 04/30/2024 TIME of SERVICE: 12:01 PM Status: non urgent needs attention Service/Provider: Cardiac Surgery Igor Greenwood M.D. Reason for call: Headache Contact information: [phone] Resolution: Sent to [facility] Comments: Pt calling [facility] line. Last seen in [facility] 04/27/24. Pt experiencing headache for the past 2 days. Tried Max Alt medication (pt has hx of migraines) hydration, cold compress to forehead/neck without relief. Asked pt if she checks BP/Pulse at home. Pt is not. Pt does have machine. Checked whileon the phone: BP 140/96 pulse rate 115. Taking Metoprolol 12.5 mg BID and Losartan 00 mg daily and Lasix. Educated on topic. Pt can be reached at [phone]. If anything changes/worsens pt will be seen in ER for prompt attention. Lisa Shah RN Date of Resolution: 04/30/2024 Time of Resolution 12:01 PM [facility]10-04-2024 Miscellaneous Notes* Telephone Encounter - Lisa Shah RN - 04/30/2024 12:01 PM EDT Images from the original note were not included. [facility] Phone Encounter DATE of SERVICE: 04/30/2024 TIME of SERVICE: 12:01 PM Status: non urgent needs attention Service/Provider: Cardiac Surgery Igor Greenwood M.D. Reason for call: Headache Contact information: [phone] Resolution: [facility] Comments: Pt calling [facility] line. Last seen in OPD 04/27/24. Pt experiencing headache for the past 2 days. Tried Max Alt medication (pt has hx of migraines) hydration, cold compress to forehead/neck without relief. Asked pt if she checks BP/Pulse at home. Pt is not. Pt does have machine. Checked whileon the phone: BP 140/96 pulse rate 115. Taking Metoprolol 12.5 mg BID and Losartan 00 mg daily and Lasix. Educated on topic. Pt can be reached at [phone]. If anything changes/worsens pt will be seen in ER for prompt attention. Lisa Shah RN Date of Resolution: 04/30/2024 Time of Resolution 12:01 PM documented in this encounterMer[facility]10-02-2024 Telephone encounter Note * Telephone Encounter - Salena Hoffman RN - 04/28/2024 11:29 AM EDT Images from the original note were not included. [facility] Phone Encounter DATE of SERVICE: 04/28/2024 TIME of SERVICE: 11:30 AM Status: FYI Service/Provider: Cardiac Surgery Igor Greenwood M.D. Reason for call: FYI Contact information: Cammie Bhat [phone] Resolution: Other Comments: Cammie Bhat called the [facility] post-discharge line to ask that we fax her order for an EKG and echo to fax #[phone] Adam. Salena Hoffman RN Date of Resolution: 04/28/2024 Time of Resolution 11:30 AM [facility]10-02-2024 Miscellaneous Notes* Telephone Encounter - Salena Hoffman RN - 04/28/2024 11:29 AM EDT Images from the original note were not included. [facility] Phone Encounter DATE of SERVICE: 04/28/2024 TIME of SERVICE: 11:30 AM Status: FY Service/Provider: Cardiac Surgery Igor Greenwood M.D. Reason for call: [facility] Contact information: Cmamie Bhat [phone] Resolution: Other Comments: Cammie Bhat called the [facility] post-discharge line to ask that we fax her order for an EKG and echo to Dr. fax #[phone] Adam. Salena Hoffman RN Date of Resolution: 04/28/2024 Time of Resolution 11:30 AM documented in this encounterMercy Health Tiffin [facility]10-01-2024 History of Present illness Narrative* Sam eLrma, NESTOR.FULLING MACHINE OPERATOR - 04/27/2024 3:00 PM EDT Images from the original note were not included. [facility] [place] [facility] Department of Cardiovascular Medicine DEPARTMENT OF CARDIAC SURGERY OUTPATIENT VISIT DATE April 27, 2024 OUTPATIENT VISIT TYPE POSTOPERATIVE Cammie Bhat is a 53 year old female who presents who is here for post operative follow up HPI: Surgeon: Nnamdi Greenwood MD S/P on 04/14/2024: MVr with neochord x1 set to P1, anterolateral commissuroplasty, and size 33mm Rodríguez annuloplasty Discharged on 04/18/24 PAST MEDICAL HISTORY Diagnosis Date Arthritis Migraine Mitral valve insufficiency Mitral valve prolapse On mechanically assisted ventilation (HCC) 04/14/2024 Psoriasis Psoriatic arthritis (HCC) Supraventricular tachycardia (HCC) 01/13/2023 PAST SURGICAL HISTORY Procedure Laterality Date BREAST SURGERY HX ESOPHAGOGASTRODUODENOSCOPY TRANSORAL DIAGNOSTIC 04/06/2021 FOOT SURGERY HX Left bone removed from foot HYSTERECTOMY HX adenomyosis, with right oophorectomy LAPS SURG CHOLECYSTECTOMY W/CHOLANGIOGRAPHY 05/15/2021 TONSILLECTOMY HX VAGINAL HYSTERECTOMY ALLERGIES Allergen Reactions Hyoscyamine GI Upset emesis Hydrocodone GI Upset Hydrocodone-Acetami* Intolerance Ixekizumab Swelling Penicillins Hives Current Outpatient Medications Medication Sig acetaminophen (TYLENOL) 500 mg tablet Take 2 tablets by mouth every 6 hours as needed for pain. aspirin 81 mg chewable tablet 1 tablet by ORAL/FEEDING TUBE route once daily. magnesium oxide (MAG-OX) 400 mg (241.3 mg magnesium) tablet Take 1 tablet by mouth once daily. MULTIVITAMIN-FERROUS FUMARATE-FOLIC ACID 18 MG-400 MCG TABLET Take 1 tablet by mouth daily with breakfast. senna-docusate (SENNA-S) 8.6-50 mg per tablet Take 2 tablets by mouth every 12 hours as needed for constipation. furosemide (LASIX) 40 mg tablet Take 1 tablet by mouth once daily for 5 days. metoprolol tartrate, short acting, (LOPRESSOR) 25 mg tablet Take 0.5 tablets by mouth two times a day. desvenlafaxine ER (PRISTIQ) 50 mg 24 hr tablet Take 1 tablet by mouth every afternoon. desvenlafaxine ER (PRISTIQ) 25 mg 24 hr tablet take 1 tablet by mouth daily with 50 milligram tablet celecoxib (CELEBREX) [address] (PROTONIX) 40 mg tablet Take 80 mg by mouth once daily. topiramate (TOPAMAX) 25 mg tablet Take 75 mg by mouth once daily. No current facility-administered medications for this visit. Chief Complaints: Im doing better Discharge Post Operative Course: Pain scale :Yes LOCATION: right chest wall and robotic sites PAIN SCALE: 3 on a scale of 0-10 Appetite: appetite good Activity: Walking at least 5-10 minutes 4 times a day. Elimination: normal, no constipation , urination is normal Sleep: no problems with sleep Mood: normal Incisions/Wounds: Not applicable Review of Systems: HEENT: Negative for fevers since discharge, chills, and night sweats Cardiac: Denies significant problems, chest pain, orthopnea, and leg edema Respiratory: denies cough, asthma, bronchitis, orthopnea, Mild SOBE Musculoskeletal: No history of joint swelling, joint pain, or loss of range of motion. Neuro: Denies neurological complaints, headaches, dizziness, visual changes, paresthesia, or neuropathy Physical Exam: There were no vitals taken for this visit. Appearance: well groomed, white female, in no acute distress Neck: No neck vein distention Cardiac: regular S1, S2, No murmur, No rub Lungs: Clear breath sounds bilaterally with decreased air entry right base Abdomen: soft, non tender, non-distended, Normal bowel sounds Extremities: No edema Sternum: n/a Right chest robotic site: healing, clean, dry and intact, no cellulitis Wound: NA right groin sites: healing, clean, dry and intact, and no cellulitis Procedures: Sutures removed from chest tube sites without difficulty. IMPRESSION & PLAN: Surgeon: Nnamdi Greenwood MD S/P on 04/14/2024: MVr with neochord x1 set to P1, anterolateral commissuroplasty, and size 33mm Rodríguez annuloplasty CXR April 27, 2024 Image reviewed Final report Lungs and pleura: Decrease in size of small to moderate right pleural effusion, currently small. Trace left pleural effusion has resolved. Improvement of bibasilar atelectasis, involving right more than left. No pneumothorax. EKG April 27, 2024 SINUS TACHYCARDIA Vent. rate 104 BPM KS interval 142 ms QRS duration 78 ms QT/QTcB 352/462 ms Labs April 27, 2024 Latest Reference Range & Units 04/18/24 06:31 04/27/24 14:36 WBC 3.70 - 11.00 k/uL 6.56 9.41 RBC 3.90 - 5.20 m/uL 3.15 (L) 3.82 (L) Hemoglobin 11.5 - 15.5 g/dL 10.2 (L) 12.9 Hematocrit 36.0 - 46.0 % 31.8 (L) 38.4 Platelet Count 150 - 400 k/uL 205 604 (H) (L): Data is abnormally low (H): Data is abnormally high Latest Reference Range & Units 04/18/24 06:31 04/27/24 14:36 Sodium 136 - 144 mmol/L 136 139 Potassium 3.7 - 5.1 mmol/L 3.5 (L) 4.1 Chloride 98 - 107 mmol/L 105 104 CO2 22 - 30 mmol/L 22 23 BUN 7 - 21 mg/dL 10 10 Creatinine 0.58 - 0.96 mg/dL 0.70 0.76 Glucose 74 - 99 mg/dL 100 (H) 111 (H) (L): Data is abnormally low (H): Data is abnormally high Dysuria UA discomfort with bacteria in urine, no WBC d/c on short course antibiotics , completed denies dysuria Pleural Effusion small right pleural effusion, improving, mild SOBE. breath sounds diminished right base. continue lasix for another week. reinforced low sodium diet, 2L fluid restriction, daily wts, use incentive spirometer every hr while awake, elevate legs, wear compression stockings, continue to increase ambulation repeat [facility] 2-4 weeks at [facility]. Summary: Follow up with PCP next week Follow up with fish egg packer in 4-6 weeks. Call [facility] OPD with any issues, concerns or worsening symptoms. Post op care and discharge orders reviewed with the patient- all questions were answered. Surgical sites healing without complication Discussed new medications, dosage, route of administration and side effects Reviewed walking program at home Reviewed diet guidelines for recovery from surgery Return to the clinic prn with signs or symptoms of infection, fevers, SOB, or pleural effusion Discussed wound care Sam Lerma APRN.FULLING MACHINE OPERATOR documented in this encounterMercy Health [facility]10-01-2024 NoteUniversity Hospitals [facility]10-01-2024 History of Present illness Narrative* Yanna Kwon RT(R) - 04/27/2024 2:15 PM EDT Radiology Service Progress Note PATIENT NAME: Cammie Bhat DATE OF SERVICE: April 27, 2024 TIME: 2:26 PM PATIENT IDENTITY VERIFICATION COMPLETED USING TWO (2) IDENTIFIERS: Name and Date of confirmedby patient verbally. FALL SCREENING: Has the patient had 2 falls in the last year or 1 fall with injury or currently using an Ambulatory Assistive Device (Walker, Cane, Wheelchair, Crutches, etc.)? No PATIENT GENDER DATA: Female. status: : No status: NO. PATIENT RELEVANT IMPLANT DATA REVIEWED: Not Applicable PATIENT PRESENTS WITH AN IMPLANTABLE OR ATTACHED DOOR INSTALLER: No RADIOLOGY DEPARTMENT: General X-ray: Exam(s) Completed: Chest X-Ray PERIPHERAL IV DATA: Not applicable SIGNED BY: RT Elena(R) April 27, 2024 2:26 PM documented in this encounterMercy Health Tiffin Hospital10-01-2024 NoteUniversity Hospitals Conneaut [facility] Center09-26-2024 Telephone encounter Note* Telephone Encounter - Jaqui Acuña APRN.CNP - 04/22/2024 9:51 AM EDT KolorificI LOPEZ April 22, 2024 Physician: Dr.Gillinov Bonds is calling because she is having a lot of pain. Cammie is using Biofreeze cream, Lidocaine patches; tylenol Recommend: Take Tylenol 1000mg, Ibuprofen 800mg every 8 hrs. Ice packs. Jaqui Acuña APRN.CNP [facility] Work Phone: [phone] Miscellaneous Notes* Telephone Encounter - Jaqui Acuña APRN.CNP - 04/22/2024 9:51 AM EDT HVI LOPEZ April 22, 2024 Physician: Dr.Gillinov Bonds is calling because she is having a lot of pain. Cammie is using Biofreeze cream, Lidocaine patches; tylenol Recommend: Take Tylenol 1000mg, Ibuprofen 800mg every 8 hrs. Ice packs. Jaqui Acuña APRN.CNP documented in this encounterMercy Health [facility]09-25-2024 Telephone encounter Note * Telephone Encounter - Reyna Salcedo APRN.CNP - 04/21/2024 12:58 PM EDT Images from the original note were not included. [facility] Phone Encounter DATE of SERVICE: 04/21/2024 TIME of SERVICE: 12:58 PM Status: Non-urgent, needs attention Service/Provider: Cardiac Surgery Igor Greenwood M.D. Reason for call: Excerpt from Resource RN: Comments: Pt called with complaints of ongoing pain 8/10 in side, neck, incisional. Pt taking oxycodone/ tylenol every few hours alternating, has tried lidocaine patches. Pt would appreciate advice. [facility] on file is correct if needed. Thank you Celina Santiago RN Date of Resolution: 04/21/2024 Time of Resolution 12:30 PM Resolution: LHC- normal coronaries Crea- 0.70 (04/18) Given Ketorolac IV post op. Instructed to add Ibuprofen 400mg q 6 hours in between Oxycodone and monitor response. Pt will see [facility] OPD TODDLER GUIDE on 04/27. Reyna Salcedo APRN.MELLO Date of Resolution: 04/21/2024 Time of Resolution 12:58 PM [facility] Work Phone: [phone] Miscellaneous Notes* Telephone Encounter - Reyna Salcedo APRN.FULLING MACHINE OPERATOR - 04/21/2024 12:58 PM EDT Images from the original note were not included. [facility] Phone Encounter DATE of SERVICE: 04/21/2024 TIME of SERVICE: 12:58 PM Status: Non-urgent, needs attention Service/Provider: Cardiac Surgery Igor Greenwood M.D. Reason for call: Excerpt from Resource RN: Comments: Pt called with complaints of ongoing pain 8/10 in side, neck, incisional. Pt taking oxycodone/ tylenol every few hours alternating, has tried lidocaine patches. Pt would appreciate advice. [facility] on file is correct if needed. Thank you Celina Santiago RN Date of Resolution: 04/21/2024 Time of Resolution 12:30 PM Resolution: LHC- normal coronaries Crea- 0.70 (04/18) Given Ketorolac IV post op. Instructed to add Ibuprofen 400mg q 6 hours in between Oxycodone and monitor response. Pt will see [facility] OPD TODDLER GUIDE on 04/27. Reyna Salcedo APRN.MELLO Date of Resolution: 04/21/2024 Time of Resolution 12:58 PM documented in this encounterMercy Health Tiffin Hospital09-25-2024 Telephone encounter Note * Telephone Encounter - Celina Santiago RN - 04/21/2024 12:30 PM EDT Images from the original note were not included. [facility] [place] [facility] Phone Encounter DATE of SERVICE: 04/21/2024 TIME of SERVICE: 12:30 PM Status: Non-urgent, needs attention Service/Provider: Cardiac Surgery Igor Greenwood M.D. Reason for call: Pain Contact information: [phone] Resolution: Sent to [facility] Comments: Pt called with complaints of ongoing pain 8/10 in side, neck, incisional. Pt taking oxycodone/ tylenol every few hours alternating, has tried lidocaine patches. Pt would appreciate advice. [facility] on file is correct if needed. Thank you Celina Santiago RN Date of Resolution: 04/21/2024 Time of Resolution 12:30 PM [facility]09-25-2024 Miscellaneous Notes* Telephone Encounter - Celina Santiago RN - 04/21/2024 12:30 PM EDT Images from the original note were not included. [facility] Phone Encounter DATE of SERVICE: 04/21/2024 TIME of SERVICE: 12:30 PM Status: Non-urgent, needs attention Service/Provider: Cardiac Surgery Igor Greenwood M.D. Reason for call: Pain Contact information: [phone] Resolution: Sent to [facility] Comments: Pt called with complaints of ongoing pain 8/10 in side, neck, incisional. Pt taking oxycodone/ tylenol every few hours alternating, has tried lidocaine patches. Pt would appreciate advice. [facility] on file is correct if needed. Thank you Celina Santiago RN Date of Resolution: 04/21/2024 Time of Resolution 12:30 PM documented in this encounterMercy Health Tiffin Hospital09-23-2024 Telephone encounter Note * Telephone Encounter - Josephine Ferrari RN - 04/19/2024 11:33 AM EDT Record ? ? PatientLastName Jose ? PatientFirstName Cammie ? DischargeDate 04/18/2024 ? [facility] ? Home_Phone ? CellPhone ? Birth_Date 1970 ? Section cardsurg ? CenterName Cardiovascular & Thoracic Surgery ? Day Day 1 ? Attempt Contacted ? Outcome All Clear ? MINI call only: We are calling to check on you since you left the hospital [since our last call]. Are you having any medical concerns we can help you with today? Enter value here ? Have you noticed any increased shortness of breath since you left the hospital? No ? Have you noticed any increased swelling in your feet or ankles? No ? Have you gained more than 2 - 3 pounds since discharge? N/A ? Have you noticed any changes to your incision or wound since you were discharged as we want to be aware of any signs of infection? No ? Are you having any increased pain since discharge? If Yes: What type of pain and where? No ? Have you had any unplanned trips to the Emergency Department or Hospital since you were discharged?If yes: Why? No ? Do you have any questions about how to take your medications? No ? Some patients may have trouble paying for their medications. Were you able to fill your prescriptions or do you need to be connected to someone who can help you with the cost? Reminder: Please bring in your medications at your follow up appointment. Yes ? Do you have a doctor s appointment scheduled or is someone working on getting you a follow-up appointment? Yes ? Comments Enter value here ? Reporting Status -- ? Attachments [facility]09-23-2024 Miscellaneous Notes* Telephone Encounter - Josephine Ferrari RN - 04/19/2024 11:33 AM EDT Record ? ? PatientLastName Jose ? PatientFirstName Cammie ? DischargeDate 04/18/2024 ? [facility] ? Home_Phone ? CellPhone ? Birth_Date 1970 ? Section cardsurg ? CenterName Cardiovascular & Thoracic Surgery ? Day Day 1 ? Attempt Contacted ? Outcome All Clear ? MINI call only: We are calling to check on you since you left the hospital [since our last call]. Are you having any medical concerns we can help you with today? Enter value here ? Have you noticed any increased shortness of breath since you left the hospital? No ? Have you noticed any increased swelling in your feet or ankles? No ? Have you gained more than 2 - 3 pounds since discharge? N/A ? Have you noticed any changes to your incision or wound since you were discharged as we want to be aware of any signs of infection? No ? Are you having any increased pain since discharge? If Yes: What type of pain and where? No ? Have you had any unplanned trips to the Emergency Department or Hospital since you were discharged?If yes: Why? No ? Do you have any questions about how to take your medications? No ? Some patients may have trouble paying for their medications. Were you able to fill your prescriptions or do you need to be connected to someone who can help you with the cost? Reminder: Please bring in your medications at your follow up appointment. Yes ? Do you have a doctor s appointment scheduled or is someone working on getting you a follow-up appointment? Yes ? Comments Enter value here ? Reporting Status -- ? Attachments documented in this encounterMercy Health Tiffin Hospital09-22-2024 NoteUniversity Hospitals [facility]09-22-2024 NoteUniversity Hospitals [facility] Center09-22-2024 NoteHNO ID: [id number] Author: NOTE, INTERFACE, ? Service: ? Author Type: ? Type: Progress Notes Filed: 04/18/2024 02:30 Note Text: Epic Scheduled Downtime: 04/18/2024 to 04/18/2024 2:22:34 [facility]09-21-2024 NoteUniversity Hospitals [facility]aut [facility] Center09-21-2024 NoteO ID: [id number] Author: NOTE, INTERFACE, ? Service: ? Author Type: ? Type: Progress Notes Filed: 04/17/2024 03:30 Note Text: Epic Scheduled Downtime: 04/17/2024 1:00:00 AM to 04/17/2024 3:20:00 [facility]09-20-2024 NoteUniversity Hospitals [facility]09-19-2024 Note [facility]09-19-2024 NoteUniversity Hospitals [facility]09-18-2024 NoteUniversity Hospitals [facility] Center09-18-2024 NoteUniversity Hospitals [facility] 04-14-2024 NoteUniversity Hospitals [facility] Center09-18-2024 NoteUniversity Hospitals [facility]09-18-2024 NoteUniversity Hospitals [facility]09-18-2024 NoteUniversity Hospitals [facility]09-17-2024 NoteUniversity Hospitals [facility]09-17-2024 History of Present illness Narrative* Nnamdi Greenwood MD - 04/13/2024 3:48 PM EDT Images from the original note were not included. [facility] [place] DEPARTMENT OF CARDIAC SURGERY OUTPATIENT VISIT DATE April 13, 2024 OUTPATIENT VISIT SERVICE DATE: 04/13/2024 SERVICE TIME: 3:54 PM PCP: Nathan Guzman [address] [place] [id number] Referring Physician: SELF Patient Type: New Visit to Determine Surgery: Yes HPI: Ms. Cammie Bhat is a 53 year old female seen regarding candidacy for cardiac surgery. She is currently asymptomatic Comorbidities include history of smoking. Last CT Result Conclusion CTA CHEST/ABD/PEL (GATED) W IVCON Exam End: 04/12/2024 10:31 AM (Final result) Impression: IMPRESSION: Mildly dilated aortic root 4.3x4.2 cm measured [id number] . Tricuspid aortic valve Poultry Farm Laborer: CHERYL Transcribe Date/Time: Apr 12 2024 11:17A Dictated by : CHERYL SOLANO MD This examination was interpreted and the report reviewed and electronically signed by: CHERYL SOLANO MD on Apr 12 2024 11:40AM EST Last ECHO Result Conclusion ECHO Collected: 04/12/2024 1:34 PM (Final result) Impression: CONCLUSIONS: - Exam indication: MVP - The left ventricle is normal in size. Left ventricular systolic function is normal. EF = 65 5% (2D biplane) - The right ventricle is normal in size. Right ventricular systolic function is normal. - The left atrial cavity is severely dilated. - The visualized aorta is dilated with a maximal dimension of 4.1 cm. - There is moderately severe (3+) mitral valve regurgitation due to prolapse. Regurgitant orifice area (PISA) is 0.57 cm . - The patient has not had a prior CC echocardiographic exam for comparison. * * * Final * * * Impression: Mitral Insufficiency Plan: Operative: Minimally Invasive. Plan robotic MV repair or SJ EPIC. Double lumen ETT. Double stick right IJ. Cannulate right femorals and right IJ (stiff guidewire). DeTACH clamp. Multidose antegrade [facility]. WALTER. Amicar Based on my evaluation she is a high risk for cardiac surgery. The risks, benefits and anticipated outcomes of the procedure, the risks and benefits of the alternatives to the procedure, and the roles and tasks of the personnel to be involved, were discussed with the patient, and the patient consents to the procedure and agrees to proceed. We discussed the possibility that there could be two patients undergoing surgery in two separate rooms (concurrent surgery) and that I would be present for the critical components of all operations. We also discussed that in an emergency situation, a qualified backup surgeon is available and in the rare event of such aserious situation, that colleague might take over the operation. These findings will be communicated back to the requesting physician via electronic medical record Nnamdi Greenwood MD documented in this encounterMercy Health Tiffin Hospital09-17-2024 NoteUniversity Hospitals Conneaut [facility] Center09-17-2024 History of Present illness Narrative* Darien Sheets RN - 04/13/2024 12:01 PM EDT AMBULATORY PATIENT EDUCATION READINESS TO LEARN Cognitive Ability: Alert and oriented Motivation To Learn: Interested Family Support: High - Very involved in pt care Instruction Provided To: Patient & Family Patient Learns Best By: Multiple Methods Factors Affecting Learning: None Physical Limitations Affecting Learning: None LEARNING RESPONSE Diagnosis: Severe MR Education Topic: Pre-Op Open Heart Surgery Instructions Teaching Points: Logistics / Protocols /Complication Prevention Instruction/Supplemental Materials: Video Individual Instruction Patient/Family Response: Somewhat Follow up plan: Patient/Family to call [facility] with any further questions Referral (Recommendation): None Teach completed, topic: Pt instructed to check into desk J1-2 on day of surgery 04/14/24. Pt instructed to use bactroban nasal ointment along with CHG wash/ listerine mouthwash the night before and morning of surgery. documented in this encounterMercy Health Tiffin Hospital09-17-2024 NoteUniversity Hospitals Conneaut [facility] Center09-17-2024 History of Present illness Narrative* Lila Ceron MD - 04/13/2024 11:52 AM EDT Cardiothoracic Anesthesiology Preoperative Assessment Service Date: 04/13/2024 Service Time: 11:52 AM Primary Care Physician: Nathan Guzman DO Subjective Patient Entered Data: 04/06/2024 Cardiothoracic Surgery Pre-Op Questionnaire Previous anesthesia problems No Family history anesthesia problems No Blood consent Yes Implanted devices No History difficult airway No Airway surgery No Ongoing pain issues Yes Pain medications Yes Heparin intolerance No Daily alcohol use Yes Illicit drug use No Scheduled procedure: Mitral valve surgery Surgeon: Igor Greenwood Scheduled date: 04/14/2024 HPI: Cammie Bhat is a 53 year old year old female with PMH notable for: severe mitral valve regurgitation supraventricular tachycardia (SVT) Atrial fibrillation HTN psoriatic arthritis, OA of knees Psoriasis, fibromyalgia Cholecystectomy and hysterectomy. Pt presents for preoperative evaluation prior to above procedure Despite her SVT, she does not have exertional dyspnea, orthopnea, PND, edema, chest pain or pressure, presyncope or syncope. Pt denies any problems with prior anesthetics. We additionally discussed the anesthetic plan, what to expect, which medications to continue and to hold, and any questions or concerns the patient may have had. All questions/concerns were addressed to patient satisfaction. Review no known heparin intolerance not taking anticoagulant/antiplatelet medication no non-cardiac IEDs present no known esophageal disorders blood transfusion consented -. A type & screen is resulted and no atypical antibodies identifed COVID-19 Immunization Status Overdue - Covid-19 Vaccine ( season) Never done No completion, postpone, frequency change, or communication history exists for this topic. The patient has the following: ACTIVE PROBLEM LIST Neutropenia Iron Deficiency Anemia, Unspecified Leukocytopenia, Unspecified Other Psoriasis Fibromyalgia History of Abdominal Hysterectomy Hypercholesterolemia Intermittent Palpitations Psoriasis With Arthropathy (Hcc) Rheumatic Fever Without Heart Involvement Supraventricular Tachycardia (Hcc) Acute Diarrhea Arthropathy Elevated Liver Enzymes Essential (Primary) Hypertension Fracture of Neck of Metacarpal Bone Heart Murmur Patellofemoral Pain Syndrome Osteoarthritis of Left Knee Sludge in Gallbladder Steatosis of Liver Synovial Cyst of Left Knee Tear of Medial Meniscus of Knee Bilateral Primary Osteoarthritis of Knee Nonrheumatic Mitral Valve Regurgitation Nonrheumatic Mitral (Valve) Prolapse Pre-Op Exam PAST MEDICAL HISTORY Diagnosis Date Arthritis Migraine Mitral valve insufficiency Mitral valve prolapse Psoriasis Psoriatic arthritis (HCC) Supraventricular tachycardia (HCC) 01/13/2023 PAST SURGICAL HISTORY Procedure Laterality Date BREAST SURGERY HX ESOPHAGOGASTRODUODENOSCOPY TRANSORAL DIAGNOSTIC 04/06/2021 FOOT SURGERY HX Left bone removed from foot HYSTERECTOMY HX adenomyosis, with right oophorectomy LAPS SURG CHOLECYSTECTOMY W/CHOLANGIOGRAPHY 05/15/2021 TONSILLECTOMY HX VAGINAL HYSTERECTOMY FAMILY HISTORY Problem Relation Age of Onset Hyperlipidemia Mother Fibromyalgia Mother Heart disease Mother mitral valve prolpse Arrhythmia Mother SVT, had ablation Thyroid Mother Prostate Cancer Father Arthritis Father Hypertension Father Fibromyalgia Sister Hyperlipidemia Sister Hypertension Sister Hyperlipidemia Brother Hypertension Brother Prostate Cancer Paternal Grandfather ADD/ADHD Son Bipolar disorder Son ADD/ADHD Son Social History Tobacco Use Smoking status: Former Current packs/day: 0.00 Average packs/day: 0.5 packs/day for 5.0 years (2.5 ttl pk-yrs) Types: Cigarettes Start date: 10/03/1990 Quit date: 10/04/1995 Years since quittin.5 Smokeless tobacco: Never Vaping Use Vaping status: Never Used Substance Use Topics Alcohol use: Yes Alcohol/week: 21.0 - 28.0 standard drinks of alcohol Types: 21 - 28 Standard drinks or equivalent per week Comment: social Drug use: Never Prior to Admission medications as of 04/13/24 1134 Medication Sig Last Dose Taking mupirocin (BACTROBAN) 2 % ointment Apply a small amount in each nostril using a cotton swab twice the day before surgery and once the morning of surgery. metoprolol tartrate, short acting, (LOPRESSOR) 25 mg tablet Take 0.5 tablets by mouth two times a day. desvenlafaxine ER (PRISTIQ) 50 mg 24 hr tablet Take 1 tablet by mouth every afternoon. desvenlafaxine ER (PRISTIQ) 25 mg 24 hr tablet take 1 tablet by mouth daily with 50 milligram tablet losartan (COZAAR) 100 mg tablet Take 1 tablet by mouth every afternoon. celecoxib (CELEBREX) 200 mg capsule colestipol (COLESTID) 1 gram tablet Take 2 g by mouth twice daily. Patient not taking: Reported on 04/13/2024 TREMFYA 100 mg/mL AutoInjector pantoprazole DR (PROTONIX) 40 mg tablet Take 80 mg by mouth once daily. topiramate (TOPAMAX) 25 mg tablet Take 75 mg by mouth once daily. No medication comments found. ALLERGIES Allergen Reactions Hyoscyamine GI Upset emesis Hydrocodone GI Upset Hydrocodone-Acetami* Intolerance Ixekizumab Swelling Penicillins Hives Objective Pain Assessment: Vitals: There were no vitals taken for this visit. Diagnostic tests reviewed for today's visit: Lab Value Units Date High Low HB 13.8 g/dL 04/12/2024 15.5 11.5 HCT 39.4 % 04/12/2024 46.0 36.0 WBC 5.13 k/uL 04/12/2024 11.00 3.70 PLT 237 k/uL 04/12/2024 400 150 NA 141 mmol/L 04/12/2024 144 136 K 3.9 mmol/L 04/12/2024 5.1 3.7 GLUC 88 mg/dL 04/12/2024 99 74 BUN 12 mg/dL 04/12/2024 21 7 CREAT 0.88 mg/dL 04/12/2024 0.96 0.58 PTSEC 10.4 sec 04/12/2024 13.0 9.7 INR 1.0 no uni* 04/12/2024 1.3 0.9 APTT 26.9 sec 04/12/2024 32.4 23.0 ALT 26 U/L 04/12/2024 38 7 AST 29 U/L 04/12/2024 35 13 TBILI 0.6 mg/dL 04/12/2024 1.3 0.2 TSH No results within date range. Lab Value Units Date High Low HCGQT No results within date range. UHCG No results within date range. HCG, BODY* No results within date range. Lab Value Units Date High Low ABORHD No results within date range. ABSCREEN No results within date range. No results found for: HBA1C Recent Results (from the past 8760 hour(s)) ECHO Collection Time: 04/12/24 1:34 PM Impression CONCLUSIONS: - Exam indication: MVP - The left ventricle is normal in size. Left ventricular systolic function is normal. EF = 65 5% (2D biplane) - The right ventricle is normal in size. Right ventricular systolic function is normal. - The left atrial cavity is severely dilated. - The visualized aorta is dilated with a maximal dimension of 4.1 cm. - There is moderately severe (3+) mitral valve regurgitation due to prolapse. Regurgitant orifice area (PISA) is 0.57 cm . - The patient has not had a prior CC echocardiographic exam for comparison. * * * Final * * * XR CHEST 2V FRONTAL/LAT Collection Time: 04/12/24 9:21 AM Impression IMPRESSION: No acute radiographic abnormality. Poultry Farm Laborer: PSCB Transcribe Date/Time: Apr 12 2024 2:24P Dictated by : BOBY GARCIA MD This examination was interpreted and the report reviewed and electronically signed by: BOBY GARCIA MD on Apr 12 2024 2:25PM EST ECG COMPLETE Collection Time: 04/12/24 8:36 AM Impression SINUS BRADYCARDIA OTHERWISE NORMAL ECG Assessment No problem-specific Assessment & Plan notes found for this encounter. ANESTHESIA FINDINGS: Intubation History: No history of difficult intubation. No abnormal airway history Significant Anesthesia Considerations: potential postop nausea/vomiting Airway History: No history of difficult airway No abnormal airway history Prepared for Surgery: optimally prepared for surgery. The Following Tests/Procedures Have Been Initiated: Orders Placed This Encounter mupirocin (BACTROBAN) 2 % ointment Sig: Apply a small amount in each nostril using a cotton swab twice the day before surgery and oncethe morning of surgery. Dispense: 22 g Refill: 0 Order Comments: Supply patient with Q-tips and instruction sheet ASA Class: 4 Planned Anesthetic: general I - PHYSICAL EVALUATION AIRWAY Patient intubated: No. Tracheostomy tube not present Mallampati: II. TM distance: >3 FB. Neck ROM: full ROM without neurological symptoms. Mouth opening: adequate. Short neck: no. Thick neck: no Valenzuela present: no DENTAL Dental findings: teeth intact. II - ANESTHESIA PLAN ASA Score: 4 Anesthetic Plan: general Airway type: ETT Beta Joshua Monitoring Plan Post Procedure Analgesic Plan Informed Consent Anesthetic risks, benefits, alternatives, personnel and consent discussed: yes. Patient / Responsible Alliance Party agrees to proceed: yes Patient / Surrogate agrees to blood products: Yes Discussed the possibility of lip / dental damage: yes Instructions Given to Patient: Instructions located in the after visit summary. Patient given verbal and written preop instructions and voices comprehension and compliance. Signature: Lila Ceron MD Patient Name: Cammie Bhat Date: April 13, 2024 Time: 11:52 AM Pager/Contact #: documented in this encounterMer[facility]-17-[facility]24 NoteUniversity [facility]als [facility]09-17-[facility] History of Present illness Narrative* Darien Sheets RN - 04/13/2024 11:11 AM EDT CHART COPY-DO NOT DISCARD CARDIOVASCULAR SURGERY PRE-OPERATIVE ASSESSMENT NAME: Cammie Bhat Alert Notes: N/A DATE: 04/13/2024 SEX: female : 1970 AGE: [age] year old Estimated body mass index is 26.65 kg/m as calculated from the following: Height as of 04/12/24: 172.7 cm (5' 8). Weight as of 04/12/24: 79.5 kg (175 lb 4.8 oz). STS Score N/A Patient scheduled for surgery on: 04/14/24 [facility] MD: Elizabeth Daly CHIEF COMPLAINT: Pre-Op Open Heart Surgery MEDICATIONS: Current Outpatient Medications Medication Sig metoprolol tartrate, short acting, (LOPRESSOR) 25 mg tablet Take 0.5 tablets by mouth two times a day. desvenlafaxine ER (PRISTIQ) 50 mg 24 hr tablet Take 1 tablet by mouth every afternoon. desvenlafaxine ER (PRISTIQ) 25 mg 24 hr tablet take 1 tablet by mouth daily with 50 milligram tablet losartan (COZAAR) 100 mg tablet Take 1 tablet by mouth every afternoon. celecoxib (CELEBREX) 200 mg capsule take 1 capsule by mouth twice a day with food for 2 weeks then 1 capsule daily (Patient not taking: Reported on 04/12/2024) colestipol (COLESTID) 1 gram tablet Take 2 g by mouth twice daily. TREMFYA 100 mg/mL AutoInjector pantoprazole DR (PROTONIX) 40 mg tablet Take 80 mg by mouth once daily. topiramate (TOPAMAX) 25 mg tablet Take 75 mg by mouth once daily. No current facility-administered medications for this visit. ALLERGIES: ALLERGIES Allergen Reactions Hyoscyamine GI Upset emesis Hydrocodone GI Upset Hydrocodone-Acetami* Intolerance Ixekizumab Swelling Penicillins Hives LATEX ALLERGY: No FOOD SENSITIVITIES: No ANTICOAGULANTS: None STEROIDS: Yes; Eye drops x2wks (prednisone) HISTORIES: FAMILY HISTORY Problem Relation Age of Onset Hyperlipidemia Mother Fibromyalgia Mother Heart disease Mother mitral valve prolpse Arrhythmia Mother SVT, had ablation Thyroid Mother Prostate Cancer Father Arthritis Father Hypertension Father Fibromyalgia Sister Hyperlipidemia Sister Hypertension Sister Hyperlipidemia Brother Hypertension Brother Prostate Cancer Paternal Grandfather ADD/ADHD Son Bipolar disorder Son ADD/ADHD Son PAST MEDICAL HISTORY Diagnosis Date Arthritis Migraine Mitral valve insufficiency Mitral valve prolapse Psoriasis Psoriatic arthritis (HCC) Supraventricular tachycardia (HCC) 01/13/2023 PAST SURGICAL HISTORY Procedure Laterality Date BREAST SURGERY HX ESOPHAGOGASTRODUODENOSCOPY TRANSORAL DIAGNOSTIC 04/06/2021 FOOT SURGERY HX Left bone removed from foot HYSTERECTOMY HX adenomyosis, with right oophorectomy LAPS SURG CHOLECYSTECTOMY W/CHOLANGIOGRAPHY 05/15/2021 TONSILLECTOMY HX VAGINAL HYSTERECTOMY Social History Tobacco Use Smoking status: Former Current packs/day: 0.00 Average packs/day: 0.5 packs/day for 5.0 years (2.5 ttl pk-yrs) Types: Cigarettes Start date: 10/03/1990 Quit date: 10/04/1995 Years since quittin.5 Smokeless tobacco: Never Vaping Use Vaping status: Never Used Substance Use Topics Alcohol use: Yes Alcohol/week: 21.0 - 28.0 standard drinks of alcohol Types: 21 - 28 Standard drinks or equivalent per week Comment: social Drug use: Never REVIEW OF SYSTEMS: GEN: Denies Complaints HEENT: Denies Complaints DERM: Denies Dermatological Complaints RESEARCH ENGINEER: Denies Neurological Complaints RESP: Denies Respiratory Complaints CARD: Denies Cardiac Complaints GI: GERD : Denies complaints ENDO: Denies Endocrine Complaints HEME: Denies Hematological complaints MUSC/SKEL: Arthritis; OA-(L-knee) PVD: Denies PVD Varicose Veins: No BRUITS (Carotid): see cardiology note PULSES: L/R TIM 2+ NYHA CLASSIFICATION: N/A FAMILY HISTORY OF CAD: No ? PERFUSION INDEX: N/A Implants: Denies Pacer Check: NA CARDIAC EVALUATION: Cardiac Cath: Date - 03/08/24 Ultrasound: Date - N/A PFT: Date - N/A ECHO: Last ECHO Result Conclusion ECHO Collected: 04/12/2024 1:34 PM (Final result) Impression: CONCLUSIONS: - Exam indication: MVP - The left ventricle is normal in size. Left ventricular systolic function is normal. EF = 65 5% (2D biplane) - The right ventricle is normal in size. Right ventricular systolic function is normal. - The left atrial cavity is severely dilated. - The visualized aorta is dilated with a maximal dimension of 4.1 cm. - There is moderately severe (3+) mitral valve regurgitation due to prolapse. Regurgitant orifice area (PISA) is 0.57 cm . - The patient has not had a prior CC echocardiographic exam for comparison. * * * Final * * * CT Scan: Last CT Result Conclusion CTA CHEST/ABD/PEL (GATED) W IVCON Exam End: 04/12/2024 10:31 AM (Final result) Impression: IMPRESSION: Mildly dilated aortic root 4.3x4.2 cm measured [id number] . Tricuspid aortic valve Poultry Farm Laborer: CHERYL Transcribe Date/Time: Apr 12 2024 11:17A Dictated by : CHERYL SOLANO MD This examination was interpreted and the report reviewed and electronically signed by: CHERYL SOLANO MD on Apr 12 2024 11:40AM EST MRI: N/A CXR: XR CHEST 2V FRONTAL/LAT Result Date: 04/12/2024 IMPRESSION: No acute radiographic abnormality. Poultry Farm Laborer: CHERYL Transcribe Date/Time: Apr 12 2024 2:24P Dictated by : BOBY GARCIA MD This examination was interpreted and the report reviewed and electronically signed by: BOBY GARCIA MD on Apr 12 2024 2:25PM EST EK04/12/24 Dental: Cleared ? Recent Labs 04/12/24 0947 WBC 5.13 HB 13.8 HCT 39.4 PLT 237 INR 1.0 APTT 26.9 PTSEC 10.4 NA 141 K 3.9 BUN 12 CREAT 0.88 Pre Op Instructions per protocol reviewed and handout given to patient . Patient Education completed and documented. Instructed to start Bactroban per protocol. Emotional support provided to patient and family. All questions and concerns adressed. Signature: Darien Sheets RN See Cardiology History and Physical dated 04/12/24 documented in this encounterMer[facility]09-16-2024 History of Present illness Narrative* Dorota Del Angel RN - 04/12/2024 10:00 AM EDT Radiology Service Progress Note DATE OF SERVICE: April 12, 2024 TIME: 10:12 AM PATIENT WEIGHT: 172LBS PATIENT IDENTITY VERIFICATION COMPLETED USING TWO (2) STANDARD IDENTIFIERS: Name and Date of confirmed by patient verbally and Name and Date of confirmed by identification band. FALL SCREENING: Has the patient had 2 falls in the last year or 1 fall with injury or currently using an Ambulatory Assistive Device (Walker, Cane, Wheelchair, Crutches, etc.)? No PATIENT GENDER DATA: Female. status: : No status: NO. ALLERGIES: Reviewed and unchanged CONTRAST ALLERGY: No EXAM: CT -CONTRAST INDUCED NEPHROPATHY RISK FACTORS: Not applicable CREATININE: Creatinine Date Value Ref Range Status 02/27/2024 0.79 0.58 - 0.96 mg/dL Final Estimated Glomerular Filtration Rate Date Value Ref Range Status 02/27/2024 89 >=60 mL/min/1.73m Final Comment: Estimated Glomerular Filtration Rate (eGFR) is calculated using the 2020 CKD-EPI creatinine equation. This equation utilizes serum creatinine, sex, and age as parameters. The creatinine assay has traceable calibration to isotope dilution- mass spectrometry. Refer to KDIGO guidelines for clinical interpretation. In patients with unstable renal function, e.g. those with acute kidney injury, the eGFRmay not accurately reflect actual GFR. P.O.C.T. RESULTS: POC done: Yes, See Lab Tab April 12, 2024 TREATMENT: N/A IV SITE: Ambulatory: A peripheral IV was started in the Right antecubital site with a Angio cath: 20 gauge. IV SITE APPEARANCE: Clean,Dry and Intact SIGNATURE: Dorota Del Angel RN PATIENT NAME: Cammie Bhat DATE: April 12, 2024 TIME: 10:12 AM * Nehal Parker RT(R) - 04/12/2024 10:00 AM EDT Radiology Service Progress Note PATIENT NAME: Cammie Bhat DATE OF SERVICE: April 12, 2024 TIME: 10:21 AM PATIENT IDENTITY VERIFICATION COMPLETED USING TWO (2) IDENTIFIERS: Name and Date of confirmedby patient verbally and Name and Date of confirmed by identification band. FALL SCREENING: Has the patient had 2 falls in the last year or 1 fall with injury or currently using an Ambulatory Assistive Device (Walker, Cane, Wheelchair, Crutches, etc.)? No PATIENT GENDER DATA: Female. status: : No status: NO. PATIENT RELEVANT IMPLANT DATA REVIEWED: Yes PATIENT PRESENTS WITH AN IMPLANTABLE OR ATTACHED DOOR INSTALLER: No RADIOLOGY DEPARTMENT: CT; Exam(s) Completed: Cardiac PERIPHERAL IV DATA: Site assessment: Clean,Dry and Intact, Site disposition Discontinued SIGNED BY: RT Charlie(Angle) April 12, 2024 10:21 AM documented in this encounterMercy Health [facility]09-16-2024 NoteUniversity [facility]09-16-2024 NoteUniversity [facility]als [facility]09-16-2024 History of Present illness Narrative* Yanna Kwon RT(R) - 04/12/2024 9:45 AM EDT Radiology Service Progress Note PATIENT NAME: Cammie Bhat DATE OF SERVICE: April 12, 2024 TIME: 9:20 AM PATIENT IDENTITY VERIFICATION COMPLETED USING TWO (2) IDENTIFIERS: Name and Date of confirmedby patient verbally. FALL SCREENING: Has the patient had 2 falls in the last year or 1 fall with injury or currently using an Ambulatory Assistive Device (Walker, Cane, Wheelchair, Crutches, etc.)? No PATIENT GENDER DATA: Female. status: : No status: NO. PATIENT RELEVANT IMPLANT DATA REVIEWED: Not Applicable PATIENT PRESENTS WITH AN IMPLANTABLE OR ATTACHED DOOR INSTALLER: No RADIOLOGY DEPARTMENT: General X-ray: Exam(s) Completed: Chest X-Ray PERIPHERAL IV DATA: Not applicable SIGNED BY: RT Elena(R) April 12, 2024 9:20 AM documented in this encounterMercy Health [facility]09-16-2024 [facility]09-16-2024 History of Present illness Narrative* Jeyson Hoff MD - 04/12/2024 7:45 AM EDT Images from the original note were not included. [facility] [place] [facility] Department of Cardiovascular Medicine SECTION OF CLINICAL CARDIOLOGY OUTPATIENT VISIT DATE April 12, 2024 OUTPATIENT VISIT TYPE NEW PRIMARY CARE PHYSICIAN: Nathan Guzman [address] [place] [id number] REFERRING PHYSICIAN: Nnamdi Greenwood [address] [place] [id number] CHIEF COMPLAINT: MR eval HISTORY OF PRESENT ILLNESS: Patient is a 53-year-old female with a history of severe mitral valve regurgitation and supraventricular tachycardia (SVT) presenting for preoperative evaluation. She is scheduled for mitral valve repair in two days. The mitral valve regurgitation was discovered during an echocardiogram performed in preparation acrlos ablation procedure to address her SVT. She has experienced palpitations and a fluttering sensation for the past three to four years. Her fish egg packer, Dr. Lima, recommended ablation due to the frequency of these episodes. She was evaluated by Dr. Thomas, who planned the ablation, but the echocardiogram findings necessitated a change in treatment approach. She denies chest discomfort, dyspnea, dizziness, or syncope. She reports occasional discomfort whenlying on her side. She is not physically active and does not engage in regular exercise. She notes mild ankle edema, which she attributes to her psoriatic arthritis and inability to take her usual med ications, Taltz and Celebrex. Her medical history includes psoriatic arthritis, psoriasis, cholecystectomy, and hysterectomy. Sheis currently taking metoprolol, which she believes helps with her palpitations. She was diagnosed with a heart murmur three years ago by Dr. Guzman, but no echocardiogram was performed at that time. She has a family history of SVT and ablations in her mother, hypertension in multiple family members, and a maternal uncle who of a myocardial infarction at age 50. She quit smoking about a yearago. PAST MEDICAL HISTORY Diagnosis Date Arthritis Migraine Mitral valve insufficiency Mitral valve prolapse Psoriasis Psoriatic arthritis (HCC) Supraventricular tachycardia (HCC) 01/13/2023 PAST SURGICAL HISTORY Procedure Laterality Date BREAST SURGERY HX ESOPHAGOGASTRODUODENOSCOPY TRANSORAL DIAGNOSTIC 04/06/2021 FOOT SURGERY HX Left bone removed from foot HYSTERECTOMY HX adenomyosis, with right oophorectomy LAPS SURG CHOLECYSTECTOMY W/CHOLANGIOGRAPHY 05/15/2021 TONSILLECTOMY HX VAGINAL HYSTERECTOMY SOCIAL HISTORY Social History Tobacco Use Smoking status: Former Current packs/day: 0.00 Average packs/day: 0.5 packs/day for 5.0 years (2.5 ttl pk-yrs) Types: Cigarettes Start date: 10/03/1990 Quit date: 10/04/1995 Years since quittin.5 Smokeless tobacco: Never Vaping Use Vaping status: Never Used Substance Use Topics Alcohol use: Yes Alcohol/week: 21.0 - 28.0 standard drinks of alcohol Types: 21 - 28 Standard drinks or equivalent per week Comment: social Drug use: Never FAMILY HISTORY Problem Relation Age of Onset Hyperlipidemia Mother Fibromyalgia Mother Heart disease Mother mitral valve prolpse Arrhythmia Mother SVT, had ablation Thyroid Mother Prostate Cancer Father Arthritis Father Hypertension Father Fibromyalgia Sister Hyperlipidemia Sister Hypertension Sister Hyperlipidemia Brother Hypertension Brother Prostate Cancer Paternal Grandfather ADD/ADHD Son Bipolar disorder Son ADD/ADHD Son ALLERGIES: ALLERGIES Allergen Reactions Hyoscyamine GI Upset emesis Hydrocodone GI Upset Hydrocodone-Acetami* Intolerance Ixekizumab Swelling Penicillins Hives MEDICATIONS: metoprolol tartrate, short acting, (LOPRESSOR) 25 mg tablet Take 0.5 tablets by mouth two times a day. desvenlafaxine ER (PRISTIQ) 50 mg 24 hr tablet Take 1 tablet by mouth every afternoon. desvenlafaxine ER (PRISTIQ) 25 mg 24 hr tablet take 1 tablet by mouth daily with 50 milligram tablet losartan (COZAAR) 100 mg tablet Take 1 tablet by mouth every afternoon. colestipol (COLESTID) 1 gram tablet Take 2 g by mouth twice daily. TREMFYA 100 mg/mL AutoInjector pantoprazole DR (PROTONIX) 40 mg tablet Take 80 mg by mouth once daily. topiramate (TOPAMAX) 25 mg tablet Take 75 mg by mouth once daily. celecoxib (CELEBREX) 200 mg capsule take 1 capsule by mouth twice a day with food for 2 weeks then 1 capsule daily (Patient not taking: Reported on 04/12/2024) REVIEW OF SYSTEMS: GENERAL: Negative for: Weight loss or gain, Fever or Chills, Weakness and Sleep difficulties. HEENT: Negative for: Headache, Impaired Vision, Glasses, Hearing Impairment, Ringing in Ears, Nosebleeds, Poor dental care, Bleeding Gums, Dentures NECK: Negative for: Swelling, Pain, Stiffness RESPIRATORY: Negative for: Cough, Blood in Sputum, Shortness of breath, Wheezing, Apnea GASTROINTESTINAL: Negative for: Trouble swallowing, Heartburn, Change in bowel habits, Blood in stool, Dark black stools MUSCULOSKELETAL: Negative for: Muscle or joint pain, Stiffness , Joint swelling NEUROLOGIC/PSYCHIATRIC: Negative for: Weakness, Paralysis, Numbness, Tingling, Tremor, Nervousness,Depressed mood, Memory loss SKIN: Negative for: Rashes, Itching HEMATOLOGICAL/LYMPHATIC: Negative for: Easy bruising , Easy bleeding ENDOCRINE: Negative for: Heat or cold intolerance, Excessive sweating, Frequent urination, Frequentthirst PHYSICAL EXAMINATION: BP 148/92 (BP Site: Left Arm) Pulse 64 Ht 172.7 cm (5' 8) Wt 79.5 kg (175 lb 4.8 oz) SpO2 97% BMI 26.65 kg/m General: Well appearing, in no acute distress. Neck: No jugular venous distention, no carotid bruits, carotids have a normal upstroke, no palpablethyromegaly. Lungs: Clear to auscultation bilaterally, no wheezing or rhonchi. Heart: Regular rhythm, PMI not displaced, S1, S2 normal, no S3, no S4, no heaves, no rub and II/ decrescendo systolic murmur. Extremities: No peripheral edema . Grade 2/4 distal pulses bilaterally. Neuro: Oriented to person, place and time, alert, cooperative, gait coordinated. CARDIOVASCULAR MEDICINE TESTING: Cardiac cath 03/08/2024 IMPRESSION/PLAN + + Impression:1. Normal Coronary . 2. Pina LV size and function LVEF= 55% 3. Severe Mitral regurgitation 4. Normal Right heart cath hemodynamic . Recommended Treatment: Valve repair / replacement. Plan: Mitral valve repair [facility] 02/16/2024 OSH TTE 01/12/2024 I have personally reviewed the Electrocardiogram and Echocardiogram. IMPRESSION: Ms. Bhat is a 53 year old female with Severe MR due to prolapse PSVT PLAN AND RECOMMENDATIONS: Patient asymptomatic but there is a question of LV dilation and there appears to be a good likelihood of successful valve repair. Echo today currently pending. She will meet with Dr. Greenwood for surgical opinion. C revealed no indication for concomitant coronary bypass. Explained post-op protocols and recommendations for follow up and serial imaging. She will follow up locally but I am happy to see her at any point if needed.All questions answered. I personally interviewed, confirmed and edited the above information as obtained by others. CONTACT INFORMATION: Jeyson Hoff MD, [facility] Section of Clinical Cardiology Whit Biswas Department of Cardiovascular Medicine Heart and Vascular [place] [facility] Desk [phone] [id number] Office - [phone] extension [phone] Office Appointments: [phone] -[phone] extension [phone] Voice recognition software was used in the creation of this document. There may be unintended errors in spelling, grammar, syntax or punctuation present. documented in this encounterMercy Health Tiffin Hospital09-16-2024 NoteUniversity [facility]als [facility]08-14-[facility]24 Telephone encounter Note* Telephone Encounter - Yanna Pedraza RN - 03/10/2024 9:30 AM EDT OPD 16, Timo held 04.13 @ 1230, OHS 04.14.2024 MVR (2) Discussed with Cammie the details regarding surgery scheduled with Dr. Greenwood on 04.14. Dental Clearance Form completed- Scanned Docs Tab in [employer] 02.27.2024. Provided instructions for the last dose date of celebrex and any other anti- coagulants, vitamins, supplements, minerals, herbal products, or NSAID's should be on 04.08. last date of Tremfya was administered in January- surgery date selectedbased on end of dosing cycle and informed that the March injection should be held prior to surgery- she verbalized understanding. Yanna Pedraza RN March 10, 2024 9:35 AM Cardiac Surgery PreOp Checklist Patient Name: Cammie Bhat OR Surgery Date: 04.14.24 [facility] Appt. Date: 04.13.24 Primary Care Provider: Nathan Guzman DO Definition Comments Diabetes/Insulin Pump A1-c and Endo consult (need for pump pt) n/a Hypothyroid/thyroid nodules TSH/US of thyroid if new nodule n/a Stroke (CVA) Neurology consult n/a Dysphagia, stricture w/no recent dilation, Ibarra's Esophagus GI consult n/a Von Willebrand/thrombocytopenia/ Blood... Hematology consult n/a Abnormal labs from outside Place any necessary consults n/a Cardiac Cath Correct birthday/include all images/moving if outside cath not ordered- 03.08.24 [place] Redo OHS/Robotic surgery/radiation to chest CT or CTA/if outside CT will need in-house CXR, CardiacMRI ordered Mechanical valve Admit for Heparin/Lovenox bridge n/a Female <50 y/o HCG n/a Heparin allergy hx of HIT Vascular Medicine consult n/a Nickel/Metal allergy Dermatology consult n/a Breast implants/Robotic candidates Plastic Surgery consult n/a Urinary strictures Urology consult/Urology consult to OR n/a All stimulators/spinal stimulator Type of stimulator n/a PPM/AICD Device check n/a Valve/TAVR/TEVAR/Myectomy/ascending aorta Dental clearance/Dental Consult at [facility] Completed Form- 02.27.2024 CABG surgery with previous CABG/varicose vein/vein stripping Leg vein mapping n/a LMT disease > 30% or Carotid Bruits Carotid ultrasound n/a Descending Aneurysm/TEVAR/TAA Pre-admit/hydration/spinal drain to be placed: IR/OR/Not Needed n/a Dialysis patient IHD day prior to OHS n/a CABG with no ECHO results Discussion w/surgeon results for dental clearance: preop/postop n/a Advanced Directives Instructions given to patient n/a FMLA Forward to AA n/a Test/Consult not needed Communicate in Epic or Access n/a Record of decreased PFTs, known lung disease Any pulmonary consult n/a Pulmonary embolectomy Needs US/Duplex BLE, VQ scan RHC, possible LHC, Pulmonary and/or Vascular consult n/a Abnormal CT All>1cm if further workup/consult needed n/a CC-Bio Repostitory Notification of packet and general knowledge given to pt n/a [facility]08-14-2024 Miscellaneous Notes* Telephone Encounter - Yanna Pedraza RN - 03/10/2024 9:30 AM EDT OPD 16, Timo held 9.17 @ 1230, OHS 04.14.2024 MVR (2) Discussed with Cammie the details regarding surgery scheduled with Dr. Greenwood on 04.14. Dental Clearance Form completed- Scanned Docs Tab in [facility] 02.27.2024. Provided instructions for the last dose date of celebrex and any other anti- coagulants, vitamins, supplements, minerals, herbal products, or NSAID's should be on 04.08. Reviewed last date of Tremfya was administered in January- surgery date selectedbased on end of dosing cycle and informed that the March injection should be held prior to surgery- she verbalized understanding. Yanna Pedraza RN March 10, 2024 9:35 AM Cardiac Surgery PreOp Checklist Patient Name: Cammie Bhat OR Surgery Date: 04.14.24 [facility] Appt. Date: 04.13.24 Primary Care Provider: Nathan Guzman DO Definition Comments Diabetes/Insulin Pump A1-c and Endo consult (need for pump pt) n/a Hypothyroid/thyroid nodules TSH/US of thyroid if new nodule n/a Stroke (CVA) Neurology consult n/a Dysphagia, stricture w/no recent dilation, Ibarra's Esophagus GI consult n/a Von Willebrand/thrombocytopenia/ Blood... Hematology consult n/a Abnormal labs from outside Place any necessary consults n/a Cardiac Cath Correct birthday/include all images/moving if outside cath not ordered- 03.08.24 [place] Redo OHS/Robotic surgery/radiation to chest CT or CTA/if outside CT will need in-house CXR, CardiacMRI ordered Mechanical valve Admit for Heparin/Lovenox bridge n/a Female <50 y/o HCG n/a Heparin allergy hx of HIT Vascular Medicine consult n/a Nickel/Metal allergy Dermatology consult n/a Breast implants/Robotic candidates Plastic Surgery consult n/a Urinary strictures Urology consult/Urology consult to OR n/a All stimulators/spinal stimulator Type of stimulator n/a PPM/AICD Device check n/a Valve/TAVR/TEVAR/Myectomy/ascending aorta Dental clearance/Dental Consult at [facility] Completed Form- 02.27.2024 CABG surgery with previous CABG/varicose vein/vein stripping Leg vein mapping n/a LMT disease > 30% or Carotid Bruits Carotid ultrasound n/a Descending Aneurysm/TEVAR/TAA Pre-admit/hydration/spinal drain to be placed: IR/OR/Not Needed n/a Dialysis patient IHD day prior to OHS n/a CABG with no ECHO results Discussion w/surgeon results for dental clearance: preop/postop n/a Advanced Directives Instructions given to patient n/a FMLA Forward to AA n/a Test/Consult not needed Communicate in Epic or Access n/a Record of decreased PFTs, known lung disease Any pulmonary consult n/a Pulmonary embolectomy Needs US/Duplex BLE, VQ scan RHC, possible LHC, Pulmonary and/or Vascular consult n/a Abnormal CT All>1cm if further workup/consult needed n/a CC-Bio Repostitory Notification of packet and general knowledge given to pt n/a * Telephone Encounter - Yanna Pedraza RN - 03/10/2024 9:01 AM EDT Left voicemail to discuss the recommendations from [facility]. * Telephone Encounter - Yanna Pedraza RN - 03/09/2024 3:36 PM EDT To AM for review: rheumatic moderate-severe MR, SVT * Telephone Encounter - Sonia Sifuentes - 03/09/2024 2:22 PM EDT Records in [facility], Images on syngo. To NPM * Telephone Encounter - Sonia Sifuentes - 03/09/2024 12:56 PM EDT Patient was referred to Dr. Greenwood for MVR. Received records, awaiting imaging from [facility] [place]. documented in this encounterMercy Health Tiffin Hospital08-14-2024 Telephone encounter Note * Telephone Encounter - Yanna Pedraza RN - 03/10/2024 9:01 AM EDT Left voicemail to discuss the recommendations from [facility]. [facility]08-13-2024 Telephone encounter Note* Telephone Encounter - Juan Mcclure - 03/09/2024 3:56 PM EDT INN [facility]08-13-2024 Miscellaneous Notes* Telephone Encounter - Juan Mcclure - 03/09/2024 3:56 PM EDT INN * Telephone Encounter - Sonia Sifuentes - 03/09/2024 2:18 PM EDT Please verify insurance. Thank you documented in this encounterMercy Health Tiffin Hospital08-13-2024 Telephone encounter Note * Telephone Encounter - Yanna Pedraza RN - 03/09/2024 3:36 PM EDT To [facility] for [place]: rheumatic moderate-severe MR, SVT [facility]08-13-2024 Telephone encounter Note* Telephone Encounter - Sonia Sifuentes - 03/09/2024 2:22 PM EDT Records in [facility], Images on syngo. To NPM [facility] Work Phone: 1(389) 394-818008-13-2024 Telephone encounter Note* Telephone Encounter - Sonia Sifuentes - 03/09/2024 2:18 PM EDT Please verify insurance. Thank you [facility] Work Phone: 1(711) 449-613108-13-2024 Telephone encounter Note* Telephone Encounter - Sonia Sifuentes - 03/09/2024 12:56 PM EDT Patient was referred to Dr. Greenwood for MVR. Received records, awaiting imaging from [facility] [place]. [facility]08-12-2024 NoteHNO ID: [id number] Author: DARIEN CHANDLER MD Service: Cardiovascular Surgery Author Type: Physician Type: Procedures Filed: 03/08/2024 09:47 Note Text: LEFT HEART CATHETERIZATION PROCEDURE NOTE Surgery/Procedure Date: 03/08/2024 Referring Physician: Clinical History: This is a 53 year old female with severe mitral regurgitation . Consent: Informed consent was obtained after the risks, benefits, and alternatives to and of this procedure were discussed in detail with the patient. Procedure in Detail: The patient was brought to the cardiac catheterization laboratory, prepped and draped in the usual sterile fashion. Anxiolysis was achieved with intravenous and intravenous benadryl. Local anesthesia was achieved over the wrist with 1% lidocaine. A pre-flushed 6-Tristanian sheath was inserted into the right radial artery via the Seldinger technique without complications. Retrograde percutaneous diagnostic coronary angiography and left ventriculography were performed using a Junior left 4 catheter, a 3-D RC catheter, and an angled pigtail catheter. There were no complications of the procedure. Findings: Angiography: LEFT MAIN: Normal . LEFT CIRCUMFLEX: Normal . LEFT ANTERIOR DESCENDING: Normal . RIGHT CORONARY ARTERY: Normal . LEFT VENTRICULOGRAPHY: Normal LV size and function LVEF 60% Severe MR . Right heart disease: Normal pulmonary pressure Normal Wedge pressure . At this point, the procedure was terminated. All diagnostic wires and catheters were removed. Impression: Severe Mitral reguration . Normal LV size and function . Normal Coronary. Recommendations: 1. Daily aspirin indefinitely 2. Mitral valve repair. 3. Statin use 4. Secondary cardiac prevention measures. SIGNATURE: Darien Chandler MD PATIENT NAME: Cammie Bhat DATE: March 08, 2024 TIME: 9:38 [facility]08-12-2024 NoteHNO ID: [id number] Author: FARHANA NAVAS RN Service: ? Author Type: Registered Nurse Type: Nursing Progress Note Filed: 03/08/2024 07:58 Note Text: [id number] patimynor admitted to POD, pre procedure teaching at bedside, review of medications with patient.[facility]08-02-2024 Telephone encounter Note* Telephone Encounter - Kendall Vicente MA - 02/27/2024 2:21 PM EDT Phoned pt regarding future [facility] 03/10/24 10am PFT & 11am CT Chest no prep required. Received dental clearance from Dr. Terry Manzano office phone [phone] form scanned into documents on 02/27/24 Also let pt know I will call back with surgery date options once I receive cardiac anesthesia availability for March 2024. Pt requesting late March [address] Mitchell. [facility]08-02-2024 Miscellaneous Notes* Telephone Encounter - Kendall Vicente MA - 02/27/2024 2:21 PM EDT Phoned pt regarding future appts [facility] 03/10/24 10am PFT & 11am CT Chest no prep required. Received dental clearance from Dr. Terry Manzano office phone [phone] form scanned into documents on 02/27/24 Also let pt know I will call back with surgery date options once I receive cardiac anesthesia availability for March 2024. Pt requesting late March [address] Mitchell. documented in this encounterMercy Health Tiffin Hospital07-31-2024 Note* Addendum Note - Dio Mary RN - 02/25/2024 11:31 AM EDTAddended by: DIO MARY on: 02/25/2024 11:31 AM Modules accepted: Orders [facility]07-31-2024 Miscellaneous Notes* Addendum Note - Dio Mary RN - 02/25/2024 11:31 AM EDTAddended by: DIO MARY on: 02/25/2024 11:31 AM Modules accepted: Orders * Telephone Encounter - Dio Mary RN - 02/25/2024 11:29 AM EDT Spoke with pt. Pt agreeable to cath 03/08/24. Instructions sent through My Chart per pt request. Dio Mary RN * Telephone Encounter - Sophie Silverman - 02/25/2024 11:23 AM EDT Reschedule [facility] on 03/08/[address] Chandler * Telephone Encounter - Dio Mary RN - 02/25/2024 11:02 AM EDT Spoke with pt. She will be out of town 02/27 - 03/05. She reports any day week of 03/08/24 should work. Dio Mary RN * Telephone Encounter - Dio Mary RN - 02/25/2024 10:58 AM EDT Left message on voicemail requesting pt return call for heart cath date and instructions. Office phone number provided. Dio Mary RN * Telephone Encounter - Sophie Silverman - 02/25/2024 10:20 AM EDT Schedule [facility] on 03/02/[address] Franklin documented in this encounterMercy Health [facility]07-31-2024 Telephone encounter Note * Telephone Encounter - Dio Mary RN - 02/25/2024 11:29 AM EDT Spoke with pt. Pt agreeable to cath 03/08/24. Instructions sent through My Chart per pt request. Dio Mary RN [facility]07-31-2024 Telephone encounter Note* Telephone Encounter - Sophie Silverman - 02/25/2024 11:23 AM EDT Reschedule [facility] on 03/08/[address] Chandler [facility]07-31-2024 Telephone encounter Note* Telephone Encounter - Dio Mary RN - 02/25/2024 11:02 AM EDT Spoke with pt. She will be out of town 02/27 - 03/05. She reports any day week of 03/08/24 should work. Dio Mary RN [facility]07-31-2024 Telephone encounter Note* Telephone Encounter - Dio Mary RN - 02/25/2024 10:58 AM EDT Left message on voicemail requesting pt return call for heart cath date and instructions. Office phone number provided. Dio Mary RN [facility]07-31-2024 Telephone encounter Note* Telephone Encounter - Sophie Silverman - 02/25/2024 10:20 AM EDT Schedule C on 03/02/[address] Franklin [facility]07-30-2024 NoteHNO ID: [id number] Author: MAULIK MITCHELL MD Service: ? Author Type: Physician Type: Progress Notes Filed: 02/24/2024 15:40 Note Text: CARDIOTHORACIC SURGERY CONSULT / HANDP SERVICE DATE: 02/24/2024 SERVICE TIME: 3:29 PM Subjective PRIMARY SERVICE: Cardiothoracic Surgery CHIEF COMPLAINT: Severe mitral regurgitation HPI: This is a 53 year old woman referred for evaluation of severe mitral regurgitation and for consideration for mitral valve repair. She has had symptomatic SVT and is followed by Dr. Thomas from the electrophysiology service. She was to undergo the ablation procedure. In preparation for this, echo was performed showinD echo from 01/12/2024 Left ventricle normal size and thickness. Left ventricle ejection fraction 65%; Left atrium mildly enlarged Normal right ventricle Normal right atrium Mitral valve: Prolapse of the posterior mitral valve leaflet; moderate to severe eccentric mitral valve regurgitation Real TR Normal PA pressures Relief aortic valve Further evaluation with transesophageal echo shows: Normal left ventricle size; left ventricle systolic function normal; ejection fraction 65% Normal right ventricular size and function Negative bubble study Left atrium moderately enlarged Right atrium moderately large Atrial valve: Moderate mitral valve prolapse posterior leaflet; 3+ eccentric mitral valve insufficiency; moderately severe anteriorly directed mitral insufficiency Tricuspid valve normal with mild insufficiency Normal aortic valve To date, left heart catheterization for regular catheterization of not been performed. Ablation has been postponed pending further review of the mitral regurgitation. Her SVT is symptomatic. When she has these episodes she feels clammy and weak. Known history of atrial fibrillation. Despite her SVT, she does not have exertional dyspnea, orthopnea, PND, edema, chest pain or pressure, presyncope or syncope. That being said, she does not strenuously exert. She has no other cardiac history such as CHF, NV, angina. No history of other vascular disease such as stroke or renal insufficiency. She does have a history of tobacco use. She stopped 2 years ago. She denies history of of chronic lung disease. PAST MEDICAL HISTORY Diagnosis Date Arthritis Migraine Mitral valve insufficiency Mitral valve prolapse Psoriasis Psoriatic arthritis (HCC) Supraventricular tachycardia (HCC) 01/13/2023 PAST SURGICAL HISTORY Procedure Laterality Date BREAST SURGERY HX ESOPHAGOGASTRODUODENOSCOPY TRANSORAL DIAGNOSTIC 04/06/2021 FOOT SURGERY HX Left bone removed from foot HYSTERECTOMY HX adenomyosis, with right oophorectomy LAPS SURG CHOLECYSTECTOMY W/CHOLANGIOGRAPHY 05/15/2021 TONSILLECTOMY HX VAGINAL HYSTERECTOMY FAMILY HISTORY Problem Relation Age of Onset Hyperlipidemia Mother Fibromyalgia Mother Heart disease Mother mitral valve prolpse Arrhythmia Mother SVT, had ablation Thyroid Mother Prostate Cancer Father Arthritis Father Hypertension Father Fibromyalgia Sister Hyperlipidemia Sister Hypertension Sister Hyperlipidemia Brother Hypertension Brother Prostate Cancer Paternal Grandfather ADD/ADHD Son Bipolar disorder Son ADD/ADHD Son Social History Tobacco Use Smoking status: Former Packs/day: 0.50 Years: 5.00 Additional pack years: 0.00 Total pack years: 2.50 Types: Cigarettes Quit date: 10/04/1995 Years since quittin.4 Smokeless tobacco: Never Vaping Use Vaping Use: Never used Substance Use Topics Alcohol use: Yes Comment: social Drug use: Never (Not in a hospital admission) metoprolol tartrate, short acting, (LOPRESSOR) 25 mg tablet Take 0.5 tablets by mouth two times a day. desvenlafaxine ER (PRISTIQ) 50 mg 24 hr tablet Take 1 tablet by mouth every afternoon. desvenlafaxine ER (PRISTIQ) 25 mg 24 hr tablet take 1 tablet by mouth daily with 50 milligram tablet losartan (COZAAR) 100 mg tablet Take 1 tablet by mouth every afternoon. celecoxib (CELEBREX) 200 mg capsule take 1 capsule by mouth twice a day with food for 2 weeks then 1 capsule daily colestipol (COLESTID) 1 gram tablet Take 2 g by mouth twice daily. TREMFYA 100 mg/mL AutoInjector pantoprazole DR (PROTONIX) 40 mg tablet Take 80 mg by mouth once daily. topiramate (TOPAMAX) 25 mg tablet Take 75 mg by mouth once daily. ALLERGIES Allergen Reactions Hyoscyamine GI Upset emesis Hydrocodone GI Upset Ixekizumab Swelling Penicillins Hives REVIEW OF SYSTEMS: As above. Denies stroke, fever, chills, COPD, hepatic disease, renal disease, cancer, bleeding, thrombosis. Objective PHYSICAL EXAM: BP 110/80 (BP Site: Left Arm, BP Position: Sitting, BP Cuff Size: Large Adult) Pulse 80 Ht 5' 9 (1.753 m) Wt 175 lb 9.6 oz (79.7 kg) SpO2 98% BMI 25.93 kg/m? Body surface area is 1.97 meters squared. On examination, she appears well and is breathing (more content not included)... [facility]07-30-2024 History of Present illness Narrative* Maulik Mitchell MD - 02/24/2024 3:28 PM EDT CARDIOTHORACIC SURGERY CONSULT / H&P SERVICE DATE: 02/24/2024 SERVICE TIME: 3:29 PM Subjective PRIMARY SERVICE: Cardiothoracic Surgery CHIEF COMPLAINT: Severe mitral regurgitation HPI: This is a 53 year old woman referred for evaluation of severe mitral regurgitation and for consideration for mitral valve repair. She has had symptomatic SVT and is followed by Dr. Thomas from the electrophysiology service. She was to undergo the ablation procedure. In preparation for this, echo was performed showinD echo from 01/12/2024 Left ventricle normal size and thickness. Left ventricle ejection fraction 65%; Left atrium mildly enlarged Normal right ventricle Normal right atrium Mitral valve: Prolapse of the posterior mitral valve leaflet; moderate to severe eccentric mitral valve regurgitation Real TR Normal PA pressures Relief aortic valve Further evaluation with transesophageal echo shows: Normal left ventricle size; left ventricle systolic function normal; ejection fraction 65% Normal right ventricular size and function Negative bubble study Left atrium moderately enlarged Right atrium moderately large Atrial valve: Moderate mitral valve prolapse posterior leaflet; 3+ eccentric mitral valve insufficiency; moderately severe anteriorly directed mitral insufficiency Tricuspid valve normal with mild insufficiency Normal aortic valve To date, left heart catheterization for regular catheterization of not been performed. Ablation hasbeen postponed pending further review of the mitral regurgitation. Her SVT is symptomatic. When she has these episodes she feels clammy and weak. Known history of atrial fibrillation. Despite her SVT, she does not have exertional dyspnea, orthopnea, PND, edema, chest pain or pressure, presyncope or syncope. That being said, she does not strenuously exert. She has no other cardiac history such as CHF, NV, angina. No history of other vascular disease suchas stroke or renal insufficiency. She does have a history of tobacco use. She stopped 2 years ago. She denies history of of chronic lung disease. PAST MEDICAL HISTORY Diagnosis Date Arthritis Migraine Mitral valve insufficiency Mitral valve prolapse Psoriasis Psoriatic arthritis (HCC) Supraventricular tachycardia (HCC) 01/13/2023 PAST SURGICAL HISTORY Procedure Laterality Date BREAST SURGERY HX ESOPHAGOGASTRODUODENOSCOPY TRANSORAL DIAGNOSTIC 04/06/2021 FOOT SURGERY HX Left bone removed from foot HYSTERECTOMY HX adenomyosis, with right oophorectomy LAPS SURG CHOLECYSTECTOMY W/CHOLANGIOGRAPHY 05/15/2021 TONSILLECTOMY HX VAGINAL HYSTERECTOMY FAMILY HISTORY Problem Relation Age of Onset Hyperlipidemia Mother Fibromyalgia Mother Heart disease Mother mitral valve prolpse Arrhythmia Mother SVT, had ablation Thyroid Mother Prostate Cancer Father Arthritis Father Hypertension Father Fibromyalgia Sister Hyperlipidemia Sister Hypertension Sister Hyperlipidemia Brother Hypertension Brother Prostate Cancer Paternal Grandfather ADD/ADHD Son Bipolar disorder Son ADD/ADHD Son Social History Tobacco Use Smoking status: Former Packs/day: 0.50 Years: 5.00 Additional pack years: 0.00 Total pack years: 2.50 Types: Cigarettes Quit date: 10/04/1995 Years since quittin.4 Smokeless tobacco: Never Vaping Use Vaping Use: Never used Substance Use Topics Alcohol use: Yes Comment: social Drug use: Never (Not in a hospital admission) metoprolol tartrate, short acting, (LOPRESSOR) 25 mg tablet Take 0.5 tablets by mouth two times a day. desvenlafaxine ER (PRISTIQ) 50 mg 24 hr tablet Take 1 tablet by mouth every afternoon. desvenlafaxine ER (PRISTIQ) 25 mg 24 hr tablet take 1 tablet by mouth daily with 50 milligram tablet losartan (COZAAR) 100 mg tablet Take 1 tablet by mouth every afternoon. celecoxib (CELEBREX) 200 mg capsule take 1 capsule by mouth twice a day with food for 2 weeks then 1 capsule daily colestipol (COLESTID) 1 gram tablet Take 2 g by mouth twice daily. TREMFYA 100 mg/mL AutoInjector pantoprazole DR (PROTONIX) 40 mg tablet Take 80 mg by mouth once daily. topiramate (TOPAMAX) 25 mg tablet Take 75 mg by mouth once daily. ALLERGIES Allergen Reactions Hyoscyamine GI Upset emesis Hydrocodone GI Upset Ixekizumab Swelling Penicillins Hives REVIEW OF SYSTEMS: As above. Denies stroke, fever, chills, COPD, hepatic disease, renal disease, cancer, bleeding, thrombosis. Objective PHYSICAL EXAM: BP 110/80 (BP Site: Left Arm, BP Position: Sitting, BP Cuff Size: Large Adult) Pulse 80 Ht 5' 9 (1.753 m) Wt 175 lb 9.6 oz (79.7 kg) SpO2 98% BMI 25.93 kg/m Body surface area is 1.97 meters squared. On examination, she appears well and is breathing comfortably. Vitals signs are BP 110/80 (BP Site:Left Arm, BP Position: Sitting, BP Cuff Size: Large Adult) Pulse 80 Ht 5' 9 (1.753 m) Wt 175lb 9.6 oz (79.7 kg) SpO2 98% BMI 25.93 kg/m . There is no JVD. No cervical or supraclavicular adenopathy is palpated. The chest is symmetrical without deformity. Breath sounds are clear bilaterally. The cardiac rhythm is regular. There 3 out of 6 holosystolic murmur that radiates to the left axilla.. The carotid, subclavian, and radial pulses are 2+ and equal bilaterally. The abdomen is soft and non-tender. There are no abdominal masses. There is no hepatojugular reflux. There is no pretibial edema. There is no clubbing or cyanosis. STS RISK CALCULATOR: 0.3 STS Calculator DATA: Diagnostic tests reviewed for today's visit: 2D echo and WALTER from the hospital.Cammie Bhat Assessment/Plan Cammie Bhat is a 53-year-old woman with primary degenerative mitral valve prolapse with severe anterior directed mitral regurgitation. She is developed left atrial enlargement. I do think that her left ventricle is somewhat dilated as well. Nominally she is asymptomatic, however, I do think if we were to have her exert strenuously she would have symptoms. I am recommending proceeding with mitralvalve repair. I do deem the valve highly repairable. Options for mitral valve replacement and been discussed with her and she will consider those options should that be necessary. I have recommended proceeding with exclusion of left atrial appendage at the time of surgery. The risks, benefits, and a nticipated outcomes of the procedure; the risks and benefits of the alternatives to the procedure; and the roles and tasks of the personnel to be involved were discussed with the patient and she consents to the procedure and agrees to proceed. In preparation for surgery we will have left heart catheterization, PFT, CT chest, and dental eval performed. The risks, benefits, and anticipated outcomes of the procedure; the risks and benefits of the alternatives to the procedure; and the roles and tasks of the personnel to be involved were discussed with the patient and she consents to the procedure and agrees to proceed. These findings will be communicated back to the requesting provider electronically. SIGNATURE: Maulik Mitchell MD PATIENT NAME: Cammie Bhat DATE: February 24, 2024 TIME: 3:29 PM PAGER/CONTACT #: [phone] * Betty Jack APRN.FULLING MACHINE OPERATOR - 02/24/2024 2:00 PM EDT STS for Isolated MVr Perioperative Outcome Estimate % Operative Mortality 0.297% Morbidity & Mortality 2.78% Stroke 0.597% Renal Failure 0.333% Reoperation 1.43% Prolonged Ventilation 1.24% Deep Sternal Wound Infection 0.036% Long Hospital Stay (>14 days) 0.954% Short Hospital Stay (<6 days)* 71.5% *higher values reflect a better outcome STS for Isolated MVR Perioperative Outcome Estimate % Operative Mortality 0.739% Morbidity & Mortality 4.68% Stroke 1.09% Renal Failure 0.609% Reoperation 2.43% Prolonged Ventilation 2.19% Deep Sternal Wound Infection 0.035% Long Hospital Stay (>14 days) 2.68% Short Hospital Stay (<6 days)* 43.9% *higher values reflect a better outcome Clinical Summary Planned Surgery: Isolated MVr, Elective, First cardiovascular surgery Demographics: 53 year old, female, 79.7kg, 175.3cm, BMI: 25.9 kg/m Lab Values: Creatinine: 0.82 mg/dL, Hematocrit: 41.2%, WBC Count: 6.9 10 /?L, Platelet Count: 556039 cells/?L Substance Abuse: Former smoker Risk Factors / Comorbidities: Hypertension Cardiac Status: Ejection Fraction = 65% Coronary Artery Disease: No coronary symptoms Valve Disease: Severe MR, Mild TR documented in this encounterMer[facility]07-30-[facility]24 Instructions* Patient Instructions* Betty Jack APRN.CNP - 02/24/2024 2:39 PM EDT You came in to see Dr. Mitchell today for surgical evaluation of mitral valve disease. By reviewing your images/clinical data, Dr. Mitchell recommends proceeding with mitral valve repair. In preparation for surgery, we recommend obtaining the following: Cardiac catheterization - this will be ordered and scheduled for you by our office Pulmonary function test - this will be ordered and scheduled for you by our office CT chest - this will be ordered and scheduled for you by our office Dental evaluation - this form will be provided to you to have completed and returned to us Once the above tests are resulted, we will schedule you a date for surgery. You will be seen by oneof our nurse practitioners in the office one week prior to surgery to review pre surgical instructions. Thanks for coming in to see us today. Please call us if you have any concerns/questions: [phone] Betty Jack APRN.CNP Cardiothoracic surgery TODDLER GUIDE documented in this encounterMercy [facility]07-30-2024 NoteHNO ID: [id number] Author: BETTY JACK APRN.CNP Service: ? Author Type: Nurse Practitioner Type: Progress Notes Filed: 02/24/2024 15:40 Note Text: STS for Isolated MVr Perioperative Outcome Estimate % Operative Mortality 0.297% Morbidity AND Mortality 2.78% Stroke 0.597% Renal Failure 0.333% Reoperation 1.43% Prolonged Ventilation 1.24% Deep Sternal Wound Infection 0.036% Long Hospital Stay (>14 days) 0.954% Short Hospital Stay (<6 days)* 71.5% *higher values reflect a better outcome STS for Isolated MVR Perioperative Outcome Estimate % Operative Mortality 0.739% Morbidity AND Mortality 4.68% Stroke 1.09% Renal Failure 0.609% Reoperation 2.43% Prolonged Ventilation 2.19% Deep Sternal Wound Infection 0.035% Long Hospital Stay (>14 days) 2.68% Short Hospital Stay (<6 days)* 43.9% *higher values reflect a better outcome Clinical Summary Planned Surgery: Isolated MVr, Elective, First cardiovascular surgery Demographics: 53 year old, female, 79.7kg, 175.3cm, BMI: 25.9 kg/m? Lab Values: Creatinine: 0.82 mg/dL, Hematocrit: 41.2%, WBC Count: 6.9 10?/?L, Platelet Count: [id number] cells/?L Substance Abuse: Former smoker Risk Factors / Comorbidities: Hypertension Cardiac Status: Ejection Fraction = 65% Coronary Artery Disease: No coronary symptoms Valve Disease: Severe MR, [facility]07-30-2024 Nurse Note* Alma Ramos LPN - 02/24/2024 1:54 PM EDT CARDIAC REHAB 5 METER WALK TEST SERVICE DATE: 02/24/2024 SERVICE TIME: 1:46PM 4.77secf 4.28sec 4.25sec ASSESSMENT: SIGNATURE: Alma Ramos LPN PATIENT NAME: Cammie Bhat DATE: February 24, 2024 TIME: 1:54 PM PAGER/CONTACT #: [phone] [facility] Nurse Note* Alma Ramos LPN - 02/24/2024 1:54 PM EDT CARDIAC REHAB 5 METER WALK TEST SERVICE DATE: 02/24/2024 SERVICE TIME: 1:46PM 4.77secf 4.28sec 4.25sec ASSESSMENT: SIGNATURE: Alma Ramos LPN PATIENT NAME: Cammie Bhat DATE: February 24, 2024 TIME: 1:54 PM PAGER/CONTACT #: [phone] documented in this encounterMercy [facility]07-26-2024 Telephone encounter Note * Telephone Encounter - Dio Mary RN - 02/20/2024 8:52 AM EDT Images from the original note were not included. Naomy Thomas MD You; Gisselle Ruffin; Francisco Savage RN15 hours ago (5:03 PM) I agree that she should cancel ablation. I am assuming Dr. Dietz will be referring her to a valve specialist? [facility] Miscellaneous Notes* Telephone Encounter - Dio Mary RN - 02/20/2024 8:52 AM EDT Images from the original note were not included. Naomy Thomas MD You; Gisselle Ruffin; Francisco Savage RN15 hours ago (5:03 PM) I agree that she should cancel ablation. I am assuming Dr. Dietz will be referring her to a valve specialist? * Telephone Encounter - Dio Mary RN - 02/16/2024 2:57 PM EDT WALTER report to Dr Thomas's POB door box. Dio Mary RN * Telephone Encounter - Dio Mary RN - 02/16/2024 1:37 PM EDT Pt calls to report she had her WALTER this morning with Dr Dietz at [facility]. She reports Dr Dietz advised her to cancel ablation and have her mitral valve fixed. I phoned [facility]. Atilio is agreeable to fax WALTER report to [phone]. Dio Mary RN documented in this encounterMer[facility]07-24-2024 Telephone encounter Note * Telephone Encounter - Obdulio Peoples - 02/18/2024 2:15 PM EDT LVM to schedule with Dr Mitchell New Patient Referral from Jeyson Galvan TODDLER GUIDE, TODDLER GUIDE-C [phone] for Nonrheumatic Mitral Valve Insufficiency, Nonrheumatic Mitral Valve Prolapse with [facility]TERNAL [facility] ECHO 01/12/2024 [facility] Miscellaneous Notes* Telephone Encounter - Obdulio Peoples - 02/18/2024 2:15 PM EDT LVM to schedule with Dr Mitchell New Patient Referral from Jeyson Galvan TODDLER GUIDE, TODDLER GUIDE-C [phone] for Nonrheumatic Mitral Valve Insufficiency, Nonrheumatic Mitral Valve Prolapse with EXTERNAL [facility] ECHO 01/12/2024 documented in this encounterMercy [facility]07-22-2024 Telephone encounter Note * Telephone Encounter - Dio Mary RN - 02/16/2024 2:57 PM EDT WALTER report to Dr Thomas's POB door box. Dio Mary RN [facility]-22-[facility] Telephone encounter Note* Telephone Encounter - Dio Mary RN - 02/16/2024 1:37 PM EDT Pt calls to report she had her WALTER this morning with Dr Dietz at [facility]. She reports Dr Dietz advised her to cancel ablation and have her mitral valve fixed. I phoned [facility]. Atilio is agreeable to fax WALTER report to [phone]. Dio Mary RN [facility]-28-[facility] Telephone encounter Note* Telephone Encounter - Naomy Thomas MD - 01/23/2024 5:22 PM EDT The echocardiogram performed at [facility] revealed moderate to severe mitral valve regurgitation from mitral valve prolapse. She needs to discuss this finding with Dr. Samuels or whatever general fish egg packer she sees. She might need additional testing and possibly surgery for this valve. She is scheduled for SVT catheter ablation on 02/19/2024. However, I would not recommend that she undergo a catheter ablation procedure for SVT under such conditions until this is figured out. Gisselle please cancel her ablation procedure. Naomy Thomas MD January 23, 2024 5:23 PM [facility]-28[facility] Miscellaneous Notes* Telephone Encounter - Naomy Thomas MD - 01/23/2024 5:22 PM EDT The echocardiogram performed at [facility] revealed moderate to severe mitral valve regurgitation from mitral valve prolapse. She needs to discuss this finding with Dr. Samuels or whatever general fish egg packer she sees. She might need additional testing and possibly surgery for this valve. She is scheduled for SVT catheter ablation on 02/19/2024. However, I would not recommend that she undergo a catheter ablation procedure for SVT under such conditions until this is figured out. Gisselle please cancel her ablation procedure. Naomy Thomas MD January 23, 2024 5:23 PM * Telephone Encounter - Kwabena Gustafson LPN - 01/23/2024 1:02 PM EDT Pt called in requesting ECO results. Please review and advise. Kwabena Gustafson LPN documented in this encounterMercy [facility]06-28-2024 Telephone encounter Note * Telephone Encounter - Kwabena Gustafson LPN - 01/23/2024 1:02 PM EDT Pt called in requesting ECO results. Please review and advise. Kwabena Gustafson LPN [facility] History of Present illness Narrative* Troy Byrd APRN.FULLING MACHINE OPERATOR - 01/09/2024 3:00 PM EDT [facility] General Cardiology Electrophysiology PRIMARY CARE PHYSICIAN: Nathan Guzman [address] [facility] [place] [address] CHIEF COMPLAINT: History and physical update prior to SVT ablation with Dr. Thomas on 01/28/2024. HISTORY OF PRESENT ILLNESS copied from Dr. Thomas's prior office note on 01/15/2023: Ms. Bhat is a 52 year old female who presents today for evaluation of arrhythmia, accompanied by her . She is referred by Dr Samuels of [facility]. She states that about a year ago she was diagnosed with supraventricular tachycardia (SVT). She experienced palpitations and rapid heart beats, also a pounding at the base of her neck, her states that he could see the pulsations there. The episode had a duration of about 30 minutes. Since then she has experienced episodes about every other month, sometimes every 3 months. She has experienced in total about five or six episodes. The longest episode has lasted an hour and a half, and for this episode she presented to the [facility] ED, this was 12/24/2022. She states her heart rate was in the 180s bpm range. Prior to this episode, in early November 2022 she had been prescribed metoprolol. But when she was seen in the ER at theend of November, she realized that she was only taking the metoprolol once daily instead of the prescribed twice daily. The episode in November that prompted her to present to the ER was terminated with IV adenosine. An echocardiogram 11/2022 revealed normal LV systolic function. She did have posterior mitral valve leaflet prolapse, with moderate MR. She presents now to discuss treatment options, specifically whether she should have catheter ablation procedure. I have confirmed and edited as necessary, the [facility] and ROS obtained by others. Interval History: Cammie is a pleasant 53-year-old female who presents today for history and physical update prior to SVT ablation with Dr. Thomas on 01/28/2024. Overall Cammie reports she has been feeling decent. She does report last she had about a 25-minute episode of SVT. At that time her primary symptom is heart pounding. Her blood pressure was 100/38 and her heart rate 190. She also felt clammy. She laid down and symptoms resolved. She reports over the past month or two a couple of very brief episodes of SVT lasting a minute or 2 at most. Patient follows with Dr. Samuels of [facility]. Patient has been taking Lopressor at home 25 mg once a day. I explained to patient this is meant to be taken twice a day. She had concerns regarding dose. We reached an agreement that she could take 12.5 mg twice a day and this would provide better coverage/hopefully prevention of futureSVT episodes. Lengthy discussion was had regarding what to expect pre-/intra-/post SVT ablation. Topics included procedure overview, MAC, overnight stay in [facility], risk/benefits, holding Lopressor for 1week prior to procedure with last day to take being 01/20/2024, post restrictions, recovery, and follow-up. Benefits including prevention of future SVT episodes. Low potential risk for bleeding, stroke, or . Patient has an echo scheduled next week. Patient was instructed to eat and drink well day before procedure with nothing after midnight except for medications with small sips of water. Medications, allergies, medical history reviewed with patient. She is scheduled to take her next dose of Tremfya on 01/28/2024. She typically takes this every 2 months. I advised her to hold off on taking Tremfya on 01/28/2024 and wait to take once she is discharged status post ablation. Cammie verbalized understanding and that she had no further questions at this time. PAST MEDICAL HISTORY Diagnosis Date Arthritis Migraine Psoriasis Psoriatic arthritis (HCC) Supraventricular tachycardia (HCC) 01/13/2023 PAST SURGICAL HISTORY Procedure Laterality Date BREAST SURGERY HX ESOPHAGOGASTRODUODENOSCOPY TRANSORAL DIAGNOSTIC 04/06/2021 FOOT SURGERY HX Left bone removed from foot HYSTERECTOMY HX adenomyosis, with right oophorectomy LAPS SURG CHOLECYSTECTOMY W/CHOLANGIOGRAPHY 05/15/2021 TONSILLECTOMY HX VAGINAL HYSTERECTOMY Social History Tobacco Use Smoking status: Every Day Packs/day: 0.50 Years: 5.00 Additional pack years: 0.00 Total pack years: 2.50 Types: Cigarettes Last attempt to quit: 10/04/1995 Years since quittin.2 Smokeless tobacco: Never Vaping Use Vaping Use: Never used Substance Use Topics Alcohol use: Yes Comment: social Drug use: Never Family History Problem Relation Age of Onset Hyperlipidemia Mother Fibromyalgia Mother Heart disease Mother mitral valve prolpse Arrhythmia Mother SVT, had ablation Thyroid Mother Prostate Cancer Father Arthritis Father Hypertension Father Fibromyalgia Sister Hyperlipidemia Sister Hypertension Sister Hyperlipidemia Brother Hypertension Brother Prostate Cancer Paternal Grandfather ADD/ADHD Son Bipolar disorder Son ADD/ADHD Son ALLERGIES Allergen Reactions Hyoscyamine GI Upset emesis Hydrocodone GI Upset Ixekizumab Swelling Penicillins Hives MEDICATIONS: desvenlafaxine ER (PRISTIQ) 50 mg 24 hr tablet Take 1 tablet by mouth every afternoon. desvenlafaxine ER (PRISTIQ) 25 mg 24 hr tablet take 1 tablet by mouth daily with 50 milligram tablet losartan (COZAAR) 100 mg tablet Take 1 tablet by mouth every afternoon. celecoxib (CELEBREX) 200 mg capsule take 1 capsule by mouth twice a day with food for 2 weeks then 1 capsule daily colestipol (COLESTID) 1 gram tablet Take 2 g by mouth twice daily. TREMFYA 100 mg/mL AutoInjector pantoprazole DR (PROTONIX) 40 mg tablet Take 80 mg by mouth once daily. topiramate (TOPAMAX) 25 mg tablet Take 75 mg by mouth once daily. metoprolol tartrate, short acting, (LOPRESSOR) 25 mg tablet Take 0.5 tablets by mouth two times a day. REVIEW OF SYSTEMS: Review of Systems Constitutional: Negative for chills, fatigue and fever. Respiratory: Negative for apnea, cough, chest tightness, shortness of breath and wheezing. Cardiovascular: Positive for palpitations. Negative for chest pain and leg swelling. + Heart racing/pounding Gastrointestinal: Negative for abdominal distention, abdominal pain, constipation, diarrhea, nauseaand vomiting. Genitourinary: Negative for difficulty urinating, dysuria and hematuria. Musculoskeletal: Negative for arthralgias. Neurological: Negative for dizziness, weakness, light-headedness and headaches. Psychiatric/Behavioral: Negative for agitation, behavioral problems, confusion and suicidal ideas. PHYSICAL EXAMINATION: BP 130/81 Pulse 85 Resp 18 Ht 5' 9 (1.75m) Wt 174 lb (78.9kg) SpO2 97% BMI 25.68 kg/(m^2). Physical Exam Constitutional: Appearance: Normal appearance. Cardiovascular: Rate and Rhythm: Normal rate and regular rhythm. Pulses: Normal pulses. Radial pulses are 2+ on the right side and 2+ on the left side. Posterior tibial pulses are 2+ on the right side and 2+ on the left side. Heart sounds: Murmur heard. Comments: Normal sinus rhythm with a ventricular rate of 72. Pulmonary: Effort: Pulmonary effort is normal. Breath sounds: Normal breath sounds. Abdominal: General: Bowel sounds are normal. Palpations: Abdomen is soft. Musculoskeletal: Right lower leg: No edema. Left lower leg: No edema. Skin: General: Skin is warm and dry. Neurological: Mental Status: She is alert and oriented to person, place, and time. Psychiatric: Mood and Affect: Mood normal. Behavior: Behavior normal. CARDIOVASCULAR MEDICINE TESTING: EKG 01/15/2023 Sinus bradycardia with a ventricular rate of 58. KS 162. QRS 84. QT/QTc 408/400. TTE 12/03/2022 Normal LV size and systolic function. EF 60%. Normal diastolic function. Posterior leaflet mitral valve prolapse. Moderate 2+ mitral valve insufficiency. PLAN AND RECOMMENDATIONS: ASSESSMENT/PLAN: 1. Supraventricular tachycardia (HCC) - ICD9: 427.89, ICD10: I47.10 (primary diagnosis) Pleasant 53-year-old female with history of SVT dating back to roughly the summer 2021. Patient hasbeen experiencing SVT episodes every few months sometimes up to every 3 months. In total about 5 or6. Longest episode lasted about an hour and a half. Symptomology included palpitations, rapid heartbeats, as well as pounding at the base of her neck. Per pulsations were visible. She had previously been prescribed metoprolol but was only taking it once a day. November 2022 episode in the ER terminated with IV adenosine. Surface echo from November 2022 revealed normal size left ventricle and systolic function. EF 60%. Normal diastolic function. Posterior leaflet mitral valve prolapse as well as moderate 2+ mitral valve insufficiency. Lengthy discussion was had regarding what to expect pre-/intra-/post SVT ablation. Topics included procedure overview, MAC, overnight stay in [facility], risk/benefits,holding Lopressor for 1 week prior to procedure with last day to take being 01/20/2024, post restrictions, recovery, and follow-up. Benefits including prevention of future SVT episodes. Low potential risk for bleeding, stroke, or . Patient has an echo scheduled next week. Patient was instructed to eat and drink well day before procedure with nothing after midnight except for medications with small sips of water. Medications, allergies, medical history reviewed with patient. Cammie verbalized understanding and that she had no further questions at this time. She is scheduled to take her next dose of Tremfya on 01/28/2024. She typically takes this every 2 months. I advised her to hold off on taking Tremfya on 01/28/2024 and wait to take once she is discharged status post ablation. 2. Intermittent palpitations - ICD9: 785.1, ICD10: R00.2 As above. 3. Heart murmur - ICD9: 785.2, ICD10: R01.1 As above. 4. Nonrheumatic mitral (valve) prolapse - ICD9: 424.0, ICD10: I34.1 As above. 5. Essential (primary) hypertension - ICD9: 401.9, ICD10: I10 BP today 130/81. Return for Hospital will call day before procedure for when to show up on 01/27.. Troy Byrd APRN.MELLO documented in this encounterMercy Health [facility]06-14-2024 NoteHNO ID: [id number] Author: TROY BYRD APRN.CNP Service: ? Author Type: Nurse Practitioner Type: Progress Notes Filed: 01/09/2024 15:36 Note Text: [facility] General Cardiology Electrophysiology PRIMARY CARE PHYSICIAN: Nathan Guzman [address] [facility] [place] [address] CHIEF COMPLAINT: History and physical update prior to SVT ablation with Dr. Thomas on 01/28/2024. HISTORY OF PRESENT ILLNESS copied from Dr. Thomas's prior office note on 01/15/2023: Ms. Bhat is a 52 year old female who presents today for evaluation of arrhythmia, accompanied by her . She is referred by Dr Samuels of [facility]. She states that about a year ago she was diagnosed with supraventricular tachycardia (SVT). She experienced palpitations and rapid heartbeats, also a pounding at the base of her neck, her states that he could see the pulsations there. The episode had a duration of about 30 minutes. Since then she has experienced episodes about every other month, sometimes every 3 months. She has experienced in total about five or six episodes. The longest episode has lasted an hour and a half, and for this episode she presented to the [facility] ED, this was 12/24/2022. She states her heart rate was in the 180s bpm range. Prior to this episode, in early November 2022 she had been prescribed metoprolol. But when she was seen in the ER at the end of November, she realized that she was only taking the metoprolol once daily instead of the prescribed twice daily. The episode in November that prompted her to present to the ER was terminated with IV adenosine. An echocardiogram 11/2022 revealed normal LV systolic function. She did have posterior mitral valve leaflet prolapse, with moderate MR. She presents now to discuss treatment options, specifically whether she should have catheter ablation procedure. I have confirmed and edited as necessary, the PFSH and ROS obtained by others. Interval History: Cammie is a pleasant 53-year-old female who presents today for history and physical update prior to SVT ablation with Dr. Thomas on 01/28/2024. Overall Cammie reports she has been feeling decent. She does report last she had about a 25-minute episode of SVT. At that time her primary symptom is heart pounding. Her blood pressure was 100/38 and her heart rate 190. She also felt clammy. She laid down and symptoms resolved. She reports over the past month or two a couple of very brief episodes of SVT lasting a minute or 2 at most. Patient follows with Dr. Samuels of [facility]. Patient has been taking Lopressor at home 25 mg once a day. I explained to patient this is meant to be taken twice a day. She had concerns regarding dose. We reached an agreement that she could take 12.5 mg twice a day and this would provide better coverage/hopefully prevention of future SVT episodes. Lengthy discussion was had regarding what to expect pre-/intra-/post SVT ablation. Topics included procedure overview, MAC, overnight stay in [facility], risk/benefits, holding Lopressor for 1 week prior to procedure with last day to take being 01/20/2024, post restrictions, recovery, and follow-up. Benefits including prevention of future SVT episodes. Low potential risk for bleeding, stroke, or . Patient has an echo scheduled next week. Patient was instructed to eat and drink well day before procedure with nothing after midnight except for medications with small sips of water. Medications, allergies, medical history reviewed with patient. She is scheduled to take her next dose of Tremfya on 01/28/2024. She typically takes this every 2 months. I advised her to hold off on taking Tremfya on 01/28/2024 and wait to take once she is discharged status post ablation. Cammie verbalized understanding and that she had no further questions at this time. PAST MEDICAL HISTORY Diagnosis Date Arthritis Migraine Psoriasis Psoriatic arthritis (HCC) Supraventricular tachycardia (HCC) 01/13/2023 PAST SURGICAL HISTORY Procedure Laterality Date BREAST SURGERY HX ESOPHAGOGASTRODUODENOSCOPY TRANSORAL DIAGNOSTIC 04/06/2021 FOOT SURGERY HX Left bone removed from foot HYSTERECTOMY HX adenomyosis, with right oophorectomy LAPS SURG CHOLECYSTECTOMY W/CHOLANGIOGRAPHY 05/15/2021 TONSILLECTOMY HX VAGINAL HYSTERECTOMY Social History Tobacco Use Smoking status: Every Day Packs/day: 0.50 Years: 5.00 Additional pack years: 0.00 Total pack years: 2.50 Types: Cigarettes Last attempt to quit: 10/04/1995 Years since quittin.2 Smokeless tobacco: Never Vaping Use Vaping Use: Never used Substance Use Topics Alcohol use: Yes Comment: social Drug use: Never Family History Problem Relation Age of Onset Hyperlipidemia Mother Fibromyalgia Mother Heart disease Mother mitral valve prolpse Arrhythmia Mother SVT, had ablation Thyro (more content not included)...[facility]06-14-2024 Nurse Note* Kaleigh Hope MA - 01/09/2024 2:52 PM EDT Patient denies any cardiac issues or symptoms. [facility]06-14-[facility] Nurse Note* Kaleigh Hope MA - 01/09/2024 2:52 PM EDT Patient denies any cardiac issues or symptoms. documented in this encounterMer[facility] Telephone encounter Note * Telephone Encounter - Dio Mary RN - 12/25/2023 2:04 PM EDT Spoke with pt. She is agreeable to procedure 01/07/24 and H&P visit 01/09/24. She voices understanding to the instructions, holding metoprolol for 7 days prior and location of H&P visit. Dio Mary RN [facility]05-30-2024 Miscellaneous Notes* Telephone Encounter - Dio Mary RN - 12/25/2023 2:04 PM EDT Spoke with pt. She is agreeable to procedure 01/07/24 and H&P visit 01/09/24. She voices understanding to the instructions, holding metoprolol for 7 days prior and location of H&P visit. Dio Mary RN * Telephone Encounter - Gisselle Ruffin - 12/25/2023 11:33 AM EDT Patient is scheduled for an SVT Ablation on 01/[address] Thomas. The hospital will call the day before between 2-5pm with your arrival time. You should not eat or drink after midnight the day before the procedure. You will need a stacker driver when released from the hospital and you will stay overnight for observation. You should continue to take medications as prescribed the morning of the procedure with just a sip of water but stop metoprolol one week prior to the procedure. H&P update on 01/08 at 3pm with Troy Byrd [facility] [place] [address] Left message for Cammie Bhat to call back and confirm date & instructions Gisselle Ruffin documented in this encounterMer[facility]05-30-2024 Telephone encounter Note * Telephone Encounter - Gisselle Ruffin - 12/25/2023 11:33 AM EDT Patient is scheduled for an SVT Ablation on 01/[address] Thomas. The hospital will call the day before between 2-5pm with your arrival time. You should not eat or drink after midnight the day before the procedure. You will need a stacker driver when released from the hospital and you will stay overnight for observation. You should continue to take medications as prescribed the morning of the procedure with just a sip of water but stop metoprolol one week prior to the procedure. H&P update on 01/08 at 3pm with Troy Byrd [address] [place] [address] Left message for Cammie Bhat to call back and confirm date & instructions Gisselle Ruffin [facility]11-30-2023 Miscellaneous Notes* Telephone Encounter - Naomy Thomas MD - 06/26/2023 9:07 PM EST [facility] General Electrophysiology (EP) Procedure request submitted. Naomy Thomas MD June 26, 2023 9:07 PM * Telephone Encounter - Naomy Thomas MD - 06/26/2023 9:07 PM EST ----- Message from Gisselle Ruffin sent at 06/26/2023 7:37 AM EST ----- Regarding: FW: ablation Patient canceled because she said she was having it done elsewhere. She called back in and changed her mind and would like to proceed with you. Please submit a new procedure request as previous one was canceled. ----- Message ----- From: HuLadonna jesusita Sent: 06/23/2023 8:56 AM EST To: Shilpa Doss; Gisselle Ruffin Subject: ablation Patient called and stated that she wants to continue with her procedure that she originally cancelled with Dr. Thomas for an ablation. I told pt I would forward this over and someone would contact her on the next steps. documented in this encounterMer[facility]08-18-2023 Miscellaneous Notes* Telephone Encounter - Agnieszka Marquez LPN - 03/14/2023 2:37 PM EDT called in requesting update on date for ablation. She would like called at [phone] with update. Agnieszka Marquez LPN documented in this encounterMercy Health [facility]06-21-2023 History of Present illness Narrative* Naomy Thomas MD - 01/15/2023 11:20 AM EDT PRIMARY CARE PHYSICIAN: Shilpa Rosales [address] [facility] [address] [place] [address] REFERRING PHYSICIAN: Malika Samuels [address] [address] Patient Care Team: Nathan Guzman DO as PCP - General (Family Medicine) Malika Samuels MD as Specialty Property Economist (Cardiology) CHIEF COMPLAINT: Evaluation of arrhythmia HISTORY OF PRESENT ILLNESS: Ms. Bhat is a 52 year old female who presents today for evaluation of arrhythmia, accompanied by her . She is referred by Dr Samuels of [facility]. She states that about a year ago she was diagnosed with supraventricular tachycardia (SVT). She experienced palpitations and rapid heart beats, also a pounding at the base of her neck, her states that he could see the pulsations there. The episode had a duration of about 30 minutes. Since then she has experienced episodes about every other month, sometimes every 3 months. She has experienced in total about five or six episodes. The longest episode has lasted an hour and a half, and for this episode she presented to the [facility] ED, this was 12/24/2022. She states her heart rate was in the 180s bpm range. Prior to this episode, in early November 2022 she had been prescribed metoprolol. But when she was seen in the ER at theend of November, she realized that she was only taking the metoprolol once daily instead of the prescribed twice daily. The episode in November that prompted her to present to the ER was terminated with IV adenosine. An echocardiogram 11/2022 revealed normal LV systolic function. She did have posterior mitral valve leaflet prolapse, with moderate MR. She presents now to discuss treatment options, specifically whether she should have catheter ablation procedure. I have confirmed and edited as necessary, the PFSH and ROS obtained by others. PAST MEDICAL HISTORY Diagnosis Date Arthritis Migraine Psoriasis Psoriatic arthritis (HCC) Supraventricular tachycardia (HCC) 01/13/2023 PAST SURGICAL HISTORY Procedure Laterality Date BREAST SURGERY HX ESOPHAGOGASTRODUODENOSCOPY TRANSORAL DIAGNOSTIC 04/06/2021 FOOT SURGERY HX Left bone removed from foot HYSTERECTOMY HX adenomyosis, with right oophorectomy LAPS SURG CHOLECYSTECTOMY W/CHOLANGIOGRAPHY 05/15/2021 TONSILLECTOMY HX VAGINAL HYSTERECTOMY SOCIAL HISTORY Social History Tobacco Use Smoking status: Former Packs/day: 0.50 Years: 5.00 Pack years: 2.50 Types: Cigarettes Quit date: 10/04/1995 Years since quittin.3 Smokeless tobacco: Never Vaping Use Vaping Use: Never used Substance Use Topics Alcohol use: Yes Comment: social Drug use: Never FAMILY HISTORY Problem Relation Age of Onset Hyperlipidemia Mother Fibromyalgia Mother Heart disease Mother mitral valve prolpse Arrhythmia Mother SVT, had ablation Thyroid Mother Prostate Cancer Father Arthritis Father Hypertension Father Fibromyalgia Sister Hyperlipidemia Sister Hypertension Sister Hyperlipidemia Brother Hypertension Brother Prostate Cancer Paternal Grandfather ADD/ADHD Son Bipolar disorder Son ADD/ADHD Son ALLERGIES: ALLERGIES Allergen Reactions Hyoscyamine GI Upset emesis Hydrocodone GI Upset Ixekizumab Swelling Penicillins Hives MEDICATIONS: celecoxib (CELEBREX) 200 mg capsule take 1 capsule by mouth twice a day with food for 2 weeks then 1 capsule daily colestipol (COLESTID) 1 gram tablet Take 2 g by mouth twice daily. TREMFYA 100 mg/mL AutoInjector losartan (COZAAR) 50 mg tablet Take 50 mg by mouth daily at bedtime. pantoprazole DR (PROTONIX) 40 mg tablet Take 80 mg by mouth once daily. metoprolol tartrate, short acting, (LOPRESSOR) 25 mg tablet Take 25 mg by mouth twice daily. DESVENLAFAXINE SUCCINATE (PRISTIQ ORAL) Take 50 mg by mouth daily at bedtime. topiramate (TOPAMAX) 25 mg tablet Take 75 mg by mouth once daily. REVIEW OF SYSTEMS: Review of Systems Constitutional: Negative for chills, fever, malaise/fatigue and weight loss. Respiratory: Negative for cough, hemoptysis, sputum production, shortness of breath and wheezing. Cardiovascular: Positive for palpitations. Negative for chest pain, orthopnea, claudication and legswelling. Gastrointestinal: Negative for abdominal pain, blood in stool, melena, nausea and vomiting. Genitourinary: Negative for hematuria. Skin: Negative for rash. Neurological: Negative for dizziness, focal weakness, seizures and loss of consciousness. PHYSICAL EXAMINATION: BP 141/98 Pulse 62 Ht 5' 9 (1.75m) Wt 178 lb (80.7kg) SpO2 95% BMI 26.27 kg/(m^2). Physical Exam Vitals reviewed. Constitutional: General: She is not in acute distress. Appearance: Normal appearance. HENT: Head: Normocephalic and atraumatic. Cardiovascular: Rate and Rhythm: Regular rhythm. Bradycardia present. Heart sounds: S1 normal and S2 normal. Murmur heard. Systolic murmur is present with a grade of 1/6. No friction rub. Pulmonary: Effort: Pulmonary effort is normal. No respiratory distress. Breath sounds: Normal breath sounds. No wheezing, rhonchi or rales. Musculoskeletal: Cervical back: Neck supple. Right lower leg: No edema. Left lower leg: No edema. Skin: General: Skin is warm and dry. Neurological: General: No focal deficit present. Mental Status: She is alert and oriented to person, place, and time. Psychiatric: Mood and Affect: Mood normal. Behavior: Behavior normal. Thought Content: Thought content normal. CARDIOVASCULAR MEDICINE TESTING: Electrocardiogram: Sinus bradycardia 50 bpm; normal conduction intervals (KS 162 ms, QRS 84 ms); QTc 400 ms; no obvious WPW patterns I have personally reviewed the Electrocardiogram. EKG 12/24/2022 [facility] ED: SVT 166 bpm (narrow complex tachycardia), no obvious P waves although possible atrial activity at terminal portion of QRS or early ST segment ASSESSMENT/PLAN: 1. Supraventricular tachycardia (HCC) - ICD9: 427.89, ICD10: I47.1 (primary diagnosis) 2. Intermittent palpitations - ICD9: 785.1, ICD10: R00.2 IMPRESSION: Ms. Bhat has a diagnosis of symptomatic SVT, documented by EKG 12/24/2022 in the [facility] ED. The SVT by EKG appears to be most consistent with a reentrant form such as AV gladys reentry tachycardia (AVNRT) or AV reciprocating tachycardia (AVRT), and the abrupt termination with intravenous adenosineis indicative of an AV gladys dependent form of SVT such as one of these two --- AVNRT or AVRT. If she has AVRT, this would be utilizing a concealed accessory pathway, as she does not have evidence byEKG for manifest accessory pathway AKA Wbeps-[id number]-Vhasf or WPW pattern. I did have a detailed discussion with Ms. Bhat and her regarding SVT and its management. I did reassure her that regardless of the heart rate during the tachycardia the arrhythmia is considered to be benign. Nevertheless, she could have danger of harming herself if she becomes lightheadedand falls during an episode for example. We discussed the treatment options including medical therapy and catheter ablation. She is certainly a candidate for catheter ablation, and by current practice guidelines this would be appropriate even as a first line treatment option in light of the very high effectiveness of catheter ablation for these forms of SVT and at very low risks of serious complications. I had a detailed discussion with Ms. Bhat and her regarding my evaluation and recommendations. After our discussion, Ms. Bhat and her expressed understanding and I answered all questions to their apparent satisfaction. After consideration, she would like to proceed with EP studyand catheter ablation as a more definitive treatment strategy. INFORMED CONSENT The risks, benefits and anticipated outcomes of the procedure, the risks and benefits of the alternatives to the procedure and the roles and tasks of the personnel to be involved were discussed with the patient. Consent for the procedure and agreement to proceed has been obtained. I verify that I personally obtained the consent. PLAN AND RECOMMENDATIONS: Proceed with scheduling of EP study/catheter ablation. My office will be contacting Ms. Bhat to schedule the procedure. She would need to hold the metoprolol at least one week prior to the procedure. Naomy Thomas MD 01/15/2023 Medical Decision Making: Problems: Moderate: New problem with uncertain prognosis Data: Unique source(s) for external note(s) reviewed: 1 Unique test result(s) reviewed: 3+ Unique test(s) ordered: 1 Risk: Moderate: Moderate risk from testing/treatment, Drug management and Decision on minor surgery w/ risk factors Medical Decision Making Level: 4 - Moderate documented in this encounterMer[facility] Nurse Note* Stephie Rajput MA - 01/15/2023 11:19 AM EDT No cardiac concerns today documented in this encounterMercy Health Tiffin HospitalEvaluation note* Diagnosis Onset Date Resolution Status Patellofemoral syndrome, right acute Right knee pain acute Diarrhea acute [facility] Work Phone: Evaluation note* Diagnosis Onset Date Resolution Status Diarrhea acute [facility] Work Phone: Evaluation note* Diagnosis Onset Date Resolution Status Diarrhea acute Diarrhea acute [facility] Work Phone: Evaluation note* Diagnosis Onset Date Resolution Status Diarrhea acute Diarrhea acute Left knee pain noneactive Degenerative arthritis of left knee noneactive [facility] Work Phone: Evaluation note* Diagnosis Onset Date Resolution Status Diarrhea acute Diarrhea acute Left knee pain noneactive Degenerative arthritis of left knee noneactive Left knee pain noneactive Degenerative arthritis of left knee noneactive [facility] Work Phone: Evaluation note* Diagnosis Onset Date Resolution Status Diarrhea acute Left knee pain noneactive Degenerative arthritis of left knee noneactive Left knee pain noneactive Degenerative arthritis of left knee noneactive [facility] Work Phone: Evaluation note* Diagnosis Onset Date Resolution Status Diarrhea acute Left knee pain noneactive Degenerative arthritis of left knee noneactive Left knee pain noneactive Degenerative arthritis of left knee noneactive Diarrhea acute [facility] Work Phone: Evaluation note* Diagnosis Onset Date Resolution Status Diarrhea acute Essential hypertension acute Cardiac murmur chronic Intermittent palpitations ch ronic Preoperative cardiovascular examination chronic Pure hypercholesterolemia, unspecified chronic [facility] Work Phone: Evaluation note* Diagnosis Onset Date Resolution Status Essential hypertension acute Cardiac murmur chronic Intermittent palpitations ch ronic Preoperative cardiovascular examination chronic Pure hypercholesterolemia, unspecified chronic [facility] Work Phone: Evaluation note* Diagnosis Onset Date Resolution Status Cardiac murmur chronic Essential hypertension chron ic Intermittent palpitations ch ronic Pure hypercholesterolemia, unspecified chronic Essential hypertension chron ic Mitral regurgitation chronic Mitral valve prolapse chroni c Pure hypercholesterolemia, unspecified chronic SVT (supraventricular tachycardia) [facility] Work Phone: Evaluation note* Diagnosis Supraventricular tachycardia (HCC)- Primary Other specified cardiac dysrhythmias Intermittent palpitations documented in this encounter [facility]* Diagnosis Onset Date Resolution Status Essential hypertension chron ic Mitral regurgitation chronic Mitral valve prolapse chroni c Pure hypercholesterolemia, unspecified chronic SVT (supraventricular tachycardia) [facility] Work Phone: Evaluation note* Diagnosis Supraventricular tachycardia- Primary Other specified cardiac dysrhythmias documented in this encounter [facility]* Diagnosis Supraventricular tachycardia (HCC)- Primary Other specified cardiac dysrhythmias Supraventricular tachycardia (HCC)- Primary Other specified cardiac dysrhythmias Intermittent palpitations Heart murmur Undiagnosed cardiac murmurs Nonrheumatic mitral (valve) prolapse Essential (primary) hypertension Unspecified essential hypertension Supraventricular tachycardia (HCC) Other specified cardiac dysrhythmias [facility]* Diagnosis Supraventricular tachycardia (HCC)- Primary Other specified cardiac dysrhythmias Nonrheumatic mitral valve regurgitation- Primary documented in this encounter [facility]* Diagnosis Supraventricular tachycardia (HCC)- Primary Other specified cardiac dysrhythmias Nonrheumatic mitral (valve) insufficiency- Primary Valvular heart disease Endocarditis, valve unspecified, unspecified cause documented in this encounter [facility]* Diagnosis Supraventricular tachycardia (HCC)- Primary Other specified cardiac dysrhythmias 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 Unspecified disorders of arteries and arterioles Pre-operative cardiovascular examination Mitral valve disorder Mitral valve disorders Disorder of artery or arteriole (HCC) Unspecified disorders of arteries and arterioles Pre-operative cardiovascular examination Mitral valve disorder Mitral valve disorders documented in this encounter [facility]* Diagnosis Supraventricular tachycardia (HCC)- Primary Other specified cardiac dysrhythmias Nonrheumatic mitral valve regurgitation- Primary Disorder of artery or arteriole (HCC) Unspecified disorders of arteries and arterioles Pre-operative cardiovascular examination Mitral valve disorder Mitral valve disorders documented [facility] this encounter [facility]* Diagnosis Supraventricular tachycardia (HCC)- Primary Other specified cardiac dysrhythmias Pre-op exam- Primary Preoperative examination, unspecified Disorder of artery or arteriole (HCC) Unspecified disorders of arteries and arterioles Pre-operative cardiovascular examination Mitral valve disorder Mitral valve disorders documented [facility] this encounter [facility]* Diagnosis Supraventricular tachycardia (HCC)- Primary Other specified cardiac dysrhythmias Encounter for preoperative anesthesiology assessment for cardiac surgery- Primary Disorder of artery or arteriole (HCC) Unspecified disorders of arteries and arterioles Pre-operative cardiovascular examination Mitral valve disorder Mitral valve disorders documented in this encounter [facility]* Diagnosis Supraventricular tachycardia (HCC)- Primary Other specified cardiac dysrhythmias Nonrheumatic mitral valve regurgitation- Primary Disorder of artery or arteriole (HCC) Unspecified disorders of arteries and arterioles Pre-operative cardiovascular examination Mitral valve disorder Mitral valve disorders [facility]* Diagnosis Supraventricular tachycardia (HCC)- Primary Other specified cardiac dysrhythmias Disorder of artery or arteriole (HCC) Unspecified disorders of arteries and arterioles Pre-operative cardiovascular examination Mitral valve disorder Mitral valve disorders documented in this encounter [facility]* Diagnosis Supraventricular tachycardia (HCC)- Primary Other specified cardiac dysrhythmias Disorder of artery or arteriole (HCC) Unspecified disorders of arteries and arterioles Pre-operative cardiovascular examination Mitral valve disorder Mitral valve disorders documented in this encounter [facility]* Diagnosis Supraventricular tachycardia (HCC)- Primary Other specified cardiac dysrhythmias Surgery follow-up- Primary Follow-up examination, following unspecified surgery documented [facility] this encounter [facility]* Diagnosis Supraventricular tachycardia (HCC)- Primary Other specified cardiac dysrhythmias Surgery follow-up Follow-up examination, following unspecified surgery documented [facility]* Diagnosis Supraventricular tachycardia (HCC)- Primary Other specified cardiac dysrhythmias S/P mitral valve repair- Primary Other postprocedural status Pleural effusion Unspecified pleural effusion documented in this encounter [facility]* Diagnosis Primary osteoarthritis of both hands- Primary Psoriasis Other psoriasis documented in this encounter [facility] Work Phone: History of Present illness Narrative* 52 y/o female with Diagnosed with psoristic arthritis present for evaluation. She report she started to have joint pain in her 30's. She report she use to have skin psoriasis as a teenager which was treated with topical but after she started to developed some joint signs in her late 20's she was started on Enbrel by her head stock transfer clerk. She was sent to a catalogue and special products manager who switch her to Humira which worked for 15 years. She report it stopped working and since then has been on a variety of regimens. * She report her worse joint is her knees, She report occasional ankle pain worse on the left, She report occasional wrist pain worse with using knifes. * She has been off Orencia x 6 weeks, She report she had been on it for 5 months but stopped working. * She has tried Aleve, Motrin and prednisone which did not help. * Today she report she feels better taking celebrex. She also saw dermatology and she is now on Tremfraya * Previous meds: * Enbrel- did work, switch to Humira * Humira- stopped working after 15 yrs * Cosentyx- work but only took 1 year due to insurance coverage * Talz- Allergic reaction * Stelara- did not work * Orencia- not working very well. * no convectional DMARDs -[place] [employer] Work Phone: Hospital Discharge instructions Additional Instructions Please follow-up with your family doctor and discuss need for referral to fish egg packer because of your recurrent SVT. Return to the ER should you have any further concernsW[facility] Work Phone: Hospital Discharge instructions Additional Instructions Please follow-up with your family doctor to discuss further testing such as C. difficile toxin as well as stool culture and potential autoimmune diseases such as celiac sprue if your symptoms persist and return to the ER should you have any further concernsWCleveland [facility] Work Phone: Instructions* Name Dates Details How to access health informa tion online - Detail Indication:Nonsmoker Start:24-Mar-2020 Instruction Type:Patient Education How to access health informa tion online Indication:Nonsmoker Start:24-Mar-2020 Instruction Type:Patient Education Patient Instructions Indication:PA (psoriatic arthritis) Start:24-Mar-2020 Instruction Type:Provider Instructions for Treatment How to access health informa tion online Indication:Nonsmoker Start:28-Feb-2020 Instruction Type:Patient Education How to access health informa tion online - Detail Indication:Nonsmoker Start:28-Feb-2020 Instruction Type:Patient Education Patient Instructions Indication:Nonsmoker Start:28-Feb-2020 Instruction Type:Provider Instructions for Treatment How to access health informa tion online Indication:Nonsmoker Start:28-Jun-2019 Instruction Type:Patient Education How to access health informa tion online - Detail Indication:Nonsmoker Start:28-Jun-2019 Instruction Type:Patient Education Patient Instructions Indication:Urinary frequency Start:28-Jun-2019 Instruction Type:Provider Instructions for Treatment How to access health informa tion online Indication:Nonsmoker Start:16-Jun-2018 Instruction Type:Patient Education How to access health informa tion online - Detail Indication:Nonsmoker Start:16-Jun-2018 Instruction Type:Patient Education Patient Instructions Indication:Nonsmoker Start:16-Jun-2018 Instruction Type:Provider Instructions for Treatment How to access health informa tion online Indication:Nonsmoker Start:13-Apr-2018 Instruction Type:Patient Education How to access health informa tion online - Detail Indication:Nonsmoker Start:13-Apr-2018 Instruction Type:Patient Education Patient Instructions Indication:Nonsmoker Start:13-Apr-2018 Instruction Type:Provider Instructions for Treatment How to access health informa tion online Indication:Physical exam for work or camp (Renamed from Encounter for school health examination) Start:05-May-2017 Instruction Type:Patient Education How to access health informa tion online - Detail Indication:Physical exam for work or camp (Renamed from Encounter for school health examination) Start:05-May-2017 Instruction Type:Patient Education Patient Instructions Indication:Physical exam for work or camp (Renamed from Encounter for school health examination) Start:05-May-2017 Instruction Type:Provider Instructions for Treatment Patient Instructions Indication:Folliculitis Start:07-Mar-2017 Instruction Type:Provider Instructions for Treatment How to access health informa tion online Indication:Rash of unknown cause Start:07-Mar-2017 Instruction Type:Patient Education How to access health informa tion online - Detail Indication:Rash of unknown cause Start:07-Mar-2017 Instruction Type:Patient Education How to access health informa tion online Indication:Fibromyalgia Start:15-May-2015 Instruction Type:Patient Education How to access health informa tion online - Detail Indication:Fibromyalgia Start:15-May-2015 Instruction Type:Patient Education Patient Instructions Indication:Fibromyalgia Start:15-May-2015 Instruction Type:Provider Instructions for Treatment How to access health informa tion online Indication:Migraine Start:10-Feb-2015 Instruction Type:Patient Education How to access health informa tion online - Detail Indication:Migraine Start:10-Feb-2015 Instruction Type:Patient Education Patient Instructions Indication:Migraine Start:10-Feb-2015 Instruction Type:Provider Instructions for Treatment Patient Instructions Indication:Depressive Disorder (311.) Start:11-May-2014 Instruction Type:Provider Instructions for Treatment Patient Instructions Indication:Migraine with aura and without status migrainosus, not intractable Start:15-Oct-2013 Instruction Type:Provider Instructions for Treatment Patient Instructions Indication:Migraine with aura and without status migrainosus, not intractable Start:11-Jun-2013 Instruction Type:Provider Instructions for Treatment Patient Instructions Indication:Migraine with aura and without status migrainosus, not intractable Start:31-May-2013 Instruction Type:Provider Instructions for Treatment Patient Instructions Indication:Frequency Start:08-Oct-2012 Instruction Type:Provider Instructions for Treatment Patient Instructions Indication:Migraine with aura and without status migrainosus, not intractable Start:22-Sep-2012 Instruction Type:Provider Instructions for Treatment Patient Instructions Indication:Depressive Disorder (311.) Start:15-Apr-2012 Instruction Type:Provider Instructions for Treatment [facility] Work Phone: Instructions* Name Dates Details Patient Instructions Indication:BMI 30.0-30.9,adult Start:26-Mar-2021 Instruction Type:Provider Instructions for Treatment How to Access Health Informa tion Online using Patient Portal and [employer]rd [employer] Apps Indication:BMI 30.0-30.9,adult Start:26-Mar-2021 Instruction Type:Patient Education Patient Instructions Indication:BMI 30.0-30.9,adult Start:23-Mar-2021 Instruction Type:Provider Instructions for Treatment How to Access Health Informa tion Online using Patient Portal and [employer]rd [employer] Apps Indication:BMI 30.0-30.9,adult Start:23-Mar-2021 Instruction Type:Patient Education Patient Instructions Indication:Nonsmoker Start:13-Mar-2021 Instruction Type:Provider Instructions for Treatment How to Access Health Informa tion Online using Patient Portal and [employer]rd [employer] Apps Indication:Nonsmoker Start:13-Mar-2021 Instruction Type:Patient Education How to access health informa tion online - Detail Indication:Nonsmoker Start:24-Mar-2020 Instruction Type:Patient Education How to access health informa tion online Indication:Nonsmoker Start:24-Mar-2020 Instruction Type:Patient Education Patient Instructions Indication:PA (psoriatic arthritis) Start:24-Mar-2020 Instruction Type:Provider Instructions for Treatment How to access health informa tion online Indication:Nonsmoker Start:28-Feb-2020 Instruction Type:Patient Education How to access health informa tion online - Detail Indication:Nonsmoker Start:28-Feb-2020 Instruction Type:Patient Education Patient Instructions Indication:Nonsmoker Start:28-Feb-2020 Instruction Type:Provider Instructions for Treatment How to access health informa tion online Indication:Nonsmoker Start:28-Jun-2019 Instruction Type:Patient Education How to access health informa tion online - Detail Indication:Nonsmoker Start:28-Jun-2019 Instruction Type:Patient Education Patient Instructions Indication:Urinary frequency Start:28-Jun-2019 Instruction Type:Provider Instructions for Treatment How to access health informa tion online Indication:Nonsmoker Start:16-Jun-2018 Instruction Type:Patient Education How to access health informa tion online - Detail Indication:Nonsmoker Start:16-Jun-2018 Instruction Type:Patient Education Patient Instructions Indication:Nonsmoker Start:16-Jun-2018 Instruction Type:Provider Instructions for Treatment How to access health informa tion online Indication:Nonsmoker Start:13-Apr-2018 Instruction Type:Patient Education How to access health informa tion online - Detail Indication:Nonsmoker Start:13-Apr-2018 Instruction Type:Patient Education Patient Instructions Indication:Nonsmoker Start:13-Apr-2018 Instruction Type:Provider Instructions for Treatment How to access health informa tion online Indication:Physical exam for work or camp (Renamed from Encounter for school health examination) Start:05-May-2017 Instruction Type:Patient Education How to access health informa tion online - Detail Indication:Physical exam for work or camp (Renamed from Encounter for school health examination) Start:05-May-2017 Instruction Type:Patient Education Patient Instructions Indication:Physical exam for work or camp (Renamed from Encounter for school health examination) Start:05-May-2017 Instruction Type:Provider Instructions for Treatment Patient Instructions Indication:Folliculitis Start:07-Mar-2017 Instruction Type:Provider Instructions for Treatment How to access health informa tion online Indication:Rash of unknown cause Start:07-Mar-2017 Instruction Type:Patient Education How to access health informa tion online - Detail Indication:Rash of unknown cause Start:07-Mar-2017 Instruction Type:Patient Education How to access health informa tion online Indication:Fibromyalgia Start:15-May-2015 Instruction Type:Patient Education How to access health informa tion online - Detail Indication:Fibromyalgia Start:15-May-2015 Instruction Type:Patient Education Patient Instructions Indication:Fibromyalgia Start:15-May-2015 Instruction Type:Provider Instructions for Treatment How to access health informa tion online Indication:Migraine Start:10-Feb-2015 Instruction Type:Patient Education How to access health informa tion online - Detail Indication:Migraine Start:10-Feb-2015 Instruction Type:Patient Education Patient Instructions Indication:Migraine Start:10-Feb-2015 Instruction Type:Provider Instructions for Treatment Patient Instructions Indication:Depressive Disorder (311.) Start:11-May-2014 Instruction Type:Provider Instructions for Treatment Patient Instructions Indication:Migraine with aura and without status migrainosus, not intractable Start:15-Oct-2013 Instruction Type:Provider Instructions for Treatment Patient Instructions Indication:Migraine with aura and without status migrainosus, not intractable Start:11-Jun-2013 Instruction Type:Provider Instructions for Treatment Patient Instructions Indication:Migraine with aura and without status migrainosus, not intractable Start:31-May-2013 Instruction Type:Provider Instructions for Treatment Patient Instructions Indication:Frequency Start:08-Oct-2012 Instruction Type:Provider Instructions for Treatment Patient Instructions Indication:Migraine with aura and without status migrainosus, not intractable Start:22-Sep-2012 Instruction Type:Provider Instructions for Treatment Patient Instructions Indication:Depressive Disorder (311.) Start:15-Apr-2012 Instruction Type:Provider Instructions for Treatment [facility] Work Phone: Instructions* Name Dates Details Patient Instructions Indication:BMI 30.0-30.9,adult Start:26-Mar-2021 Instruction Type:Provider Instructions for Treatment How to Access Health Informa tion Online using Patient Portal and [employer]rd [employer] Apps Indication:BMI 30.0-30.9,adult Start:26-Mar-2021 Instruction Type:Patient Education Patient Instructions Indication:BMI 30.0-30.9,adult Start:23-Mar-2021 Instruction Type:Provider Instructions for Treatment How to Access Health Informa tion Online using Patient Portal and [employer]rd [employer] Apps Indication:BMI 30.0-30.9,adult Start:23-Mar-2021 Instruction Type:Patient Education Patient Instructions Indication:Nonsmoker Start:13-Mar-2021 Instruction Type:Provider Instructions for Treatment How to Access Health Informa tion Online using Patient Portal and [employer]rd [employer] Apps Indication:Nonsmoker Start:13-Mar-2021 Instruction Type:Patient Education How to access health informa tion online - Detail Indication:Nonsmoker Start:24-Mar-2020 Instruction Type:Patient Education How to access health informa tion online Indication:Nonsmoker Start:24-Mar-2020 Instruction Type:Patient Education Patient Instructions Indication:PA (psoriatic arthritis) Start:24-Mar-2020 Instruction Type:Provider Instructions for Treatment How to access health informa tion online Indication:Nonsmoker Start:28-Feb-2020 Instruction Type:Patient Education How to access health informa tion online - Detail Indication:Nonsmoker Start:28-Feb-2020 Instruction Type:Patient Education Patient Instructions Indication:Nonsmoker Start:28-Feb-2020 Instruction Type:Provider Instructions for Treatment How to access health informa tion online Indication:Nonsmoker Start:28-Jun-2019 Instruction Type:Patient Education How to access health informa tion online - Detail Indication:Nonsmoker Start:28-Jun-2019 Instruction Type:Patient Education Patient Instructions Indication:Urinary frequency Start:28-Jun-2019 Instruction Type:Provider Instructions for Treatment How to access health informa tion online Indication:Nonsmoker Start:16-Jun-2018 Instruction Type:Patient Education How to access health informa tion online - Detail Indication:Nonsmoker Start:16-Jun-2018 Instruction Type:Patient Education Patient Instructions Indication:Nonsmoker Start:16-Jun-2018 Instruction Type:Provider Instructions for Treatment How to access health informa tion online Indication:Nonsmoker Start:13-Apr-2018 Instruction Type:Patient Education How to access health informa tion online - Detail Indication:Nonsmoker Start:13-Apr-2018 Instruction Type:Patient Education Patient Instructions Indication:Nonsmoker Start:13-Apr-2018 Instruction Type:Provider Instructions for Treatment How to access health informa tion online Indication:Physical exam for work or camp (Renamed from Encounter for school health examination) Start:05-May-2017 Instruction Type:Patient Education How to access health informa tion online - Detail Indication:Physical exam for work or camp (Renamed from Encounter for school health examination) Start:05-May-2017 Instruction Type:Patient Education Patient Instructions Indication:Physical exam for work or camp (Renamed from Encounter for school health examination) Start:05-May-2017 Instruction Type:Provider Instructions for Treatment Patient Instructions Indication:Folliculitis Start:07-Mar-2017 Instruction Type:Provider Instructions for Treatment How to access health informa tion online Indication:Rash of unknown cause Start:07-Mar-2017 Instruction Type:Patient Education How to access health informa tion online - Detail Indication:Rash of unknown cause Start:07-Mar-2017 Instruction Type:Patient Education How to access health informa tion online Indication:Fibromyalgia Start:15-May-2015 Instruction Type:Patient Education How to access health informa tion online - Detail Indication:Fibromyalgia Start:15-May-2015 Instruction Type:Patient Education Patient Instructions Indication:Fibromyalgia Start:15-May-2015 Instruction Type:Provider Instructions for Treatment How to access health informa tion online Indication:Migraine Start:10-Feb-2015 Instruction Type:Patient Education How to access health informa tion online - Detail Indication:Migraine Start:10-Feb-2015 Instruction Type:Patient Education Patient Instructions Indication:Migraine Start:10-Feb-2015 Instruction Type:Provider Instructions for Treatment Patient Instructions Indication:Depressive Disorder (311.) Start:11-May-2014 Instruction Type:Provider Instructions for Treatment Patient Instructions Indication:Migraine with aura and without status migrainosus, not intractable Start:15-Oct-2013 Instruction Type:Provider Instructions for Treatment Patient Instructions Indication:Migraine with aura and without status migrainosus, not intractable Start:11-Jun-2013 Instruction Type:Provider Instructions for Treatment Patient Instructions Indication:Migraine with aura and without status migrainosus, not intractable Start:31-May-2013 Instruction Type:Provider Instructions for Treatment Patient Instructions Indication:Frequency Start:08-Oct-2012 Instruction Type:Provider Instructions for Treatment Patient Instructions Indication:Migraine with aura and without status migrainosus, not intractable Start:22-Sep-2012 Instruction Type:Provider Instructions for Treatment Patient Instructions Indication:Depressive Disorder (311.) Start:15-Apr-2012 Instruction Type:Provider Instructions for Treatment [facility] Work Phone: reason for referral (narrative)* Diagnostic Procedure Only (Routine) - Authorized Specialty Diagnoses / Procedures Referred By Cherelle rodriguez Referred To Contact CT IMAGING Diagnoses Disorder of artery or arteriole (HCC) Pre-operative cardiovascular examination Mitral valve disorder Procedures CTA CHEST/ABD/PEL (GATED) W IVCON CT ANGIOGRAPHY CHEST W/CONTRAST/NONCONTRAST CT ANGIO ABD&PLVIS CNTRST MTRL W/WO CNTRST Nnamdi Oliver MD [address] [place] [address] Ct Imaging [place] [id number] Referral ID Status Reason Start Date Expiration Date Visits Requested Visits Authorized [id number] Authorized Auto-Generat ed Referral 03/22/2024 05/06/2024 2 2 [facility] for referral (narrative)* Outpatient Procedure (Routine) - Authorized Specialty Diagnoses / Procedures Referred By Cherelle rodriguez [facility] Diagnoses Surgery follow-up Procedures ECG COMPLETE ECG ROUTINE ECG W/LEAST 12 LDS W/I&R Nnamdi Greenwood MD [address] [place] [address] [facility] [place] [address] [place], [place] [address], [place] [address] Referral ID Status Reason Start Date Expiration Date Visits Requested Visits Authorized [id number] Authorized Auto-Generat ed Referral 04/16/2024 04/16/2025 1 1 [facility] for referral (narrative)No reason for referral information availableWC[facility] Work Phone: Family History Unknown Family Member Name Dates Details Father Comments:HTN, high cholester ol Status:Active Mother Comments:MVP, SVT, Hypothyro id Status:Active Unknown Family Member Name Dates Details Father Comments:HTN, high cholester ol Status:Active Mother Comments:MVP, SVT, Hypothyro id Status:Active Unknown Family Member Name Dates Details Father Comments:HTN, high cholester ol Status:Active Mother Comments:MVP, SVT, Hypothyro id Status:Active Unknown Family Member Name Dates Details Father Comments:HTN, high cholester ol Status:Active Mother Comments:MVP, SVT, Hypothyro id Status:Active Unknown Family Member Name Dates Details Father Comments:HTN, high cholester ol Status:Active Mother Comments:MVP, SVT, Hypothyro id Status:Active Unknown Family Member Name Dates Details Father Comments:HTN, high cholester ol Status:Active Mother Comments:MVP, SVT, Hypothyro id Status:Active Unknown Family Member Name Dates Details Father Comments:HTN, high cholester ol Status:Active Mother Comments:MVP, SVT, Hypothyro id Status:Active Unknown Family Member Name Dates Details Father Comments:HTN, high cholester ol Status:Active Mother Comments:MVP, SVT, Hypothyro id Status:Active Unknown Family Member Name Dates Details Father Comments:HTN, high cholester ol Status:Active Mother Comments:MVP, SVT, Hypothyro id Status:Active Unknown Family Member Name Dates Details Father Comments:HTN, high cholester ol Status:Active Mother Comments:MVP, SVT, Hypothyro id Status:Active Unknown Family Member Name Dates Details Father Comments:HTN, high cholester ol Status:Active Mother Comments:MVP, SVT, Hypothyro id Status:Active Unknown Family Member Name Dates Details Father Comments:HTN, high cholester ol Status:Active Mother Comments:MVP, SVT, Hypothyro id Status:Active Unknown Family Member Name Dates Details Father Comments:HTN, high cholester ol Status:Active Mother Comments:MVP, SVT, Hypothyro id Status:Active Unknown Family Member Name Dates Details Father Comments:HTN, high cholester ol Status:Active Mother Comments:MVP, SVT, Hypothyro id Status:Active Unknown Family Member Name Dates Details Father Comments:HTN, high cholester ol Status:Active Mother Comments:MVP, SVT, Hypothyro id Status:Active Relationship Condition Age at Onset Recorded Date/T hernan mother Disorder of thyroid Unknown Mitral valve prolapse Unknown Supraventricular tachycardia Unknown father Hypertension Unknown Hyperlipidemia Unknown Relationship Condition Age at Onset Recorded Date/T hernan sister Hypertension Unknown mother Disorder of thyroid Unknown Mitral valve prolapse Unknown Supraventricular tachycardia Unknown father Hypertension Unknown Hyperlipidemia Unknown Malignant neoplasm Unknown Instructions Name Dates Details How to access health informa tion online Indication:Nonsmoker Start:16-Jun-2018 Instruction Type:Patient Education How to access health informa tion online - Detail Indication:Nonsmoker Start:16-Jun-2018 Instruction Type:Patient Education Patient Instructions Indication:Nonsmoker Start:16-Jun-2018 Instruction Type:Provider Instructions for Treatment How to access health informa tion online Indication:Nonsmoker Start:13-Apr-2018 Instruction Type:Patient Education How to access health informa tion online - Detail Indication:Nonsmoker Start:13-Apr-2018 Instruction Type:Patient Education Patient Instructions Indication:Nonsmoker Start:13-Apr-2018 Instruction Type:Provider Instructions for Treatment How to access health informa tion online Indication:Physical exam for work or camp (Renamed from Encounter for school health examination) Start:05-May-2017 Instruction Type:Patient Education How to access health informa tion online - Detail Indication:Physical exam for work or camp (Renamed from Encounter for school health examination) Start:05-May-2017 Instruction Type:Patient Education Patient Instructions Indication:Physical exam for work or camp (Renamed from Encounter for school health examination) Start:05-May-2017 Instruction Type:Provider Instructions for Treatment Patient Instructions Indication:Folliculitis Start:07-Mar-2017 Instruction Type:Provider Instructions for Treatment How to access health informa tion online Indication:Rash of unknown cause Start:07-Mar-2017 Instruction Type:Patient Education How to access health informa tion online - Detail Indication:Rash of unknown cause Start:07-Mar-2017 Instruction Type:Patient Education How to access health informa tion online Indication:Fibromyalgia Start:15-May-2015 Instruction Type:Patient Education How to access health informa tion online - Detail Indication:Fibromyalgia Start:15-May-2015 Instruction Type:Patient Education Patient Instructions Indication:Fibromyalgia Start:15-May-2015 Instruction Type:Provider Instructions for Treatment How to access health informa tion online Indication:Migraine Start:10-Feb-2015 Instruction Type:Patient Education How to access health informa tion online - Detail Indication:Migraine Start:10-Feb-2015 Instruction Type:Patient Education Patient Instructions Indication:Migraine Start:10-Feb-2015 Instruction Type:Provider Instructions for Treatment Patient Instructions Indication:Depressive Disorder (311.) Start:11-May-2014 Instruction Type:Provider Instructions for Treatment Patient Instructions Indication:Migraine with aura and without status migrainosus, not intractable Start:15-Oct-2013 Instruction Type:Provider Instructions for Treatment Patient Instructions Indication:Migraine with aura and without status migrainosus, not intractable Start:11-Jun-2013 Instruction Type:Provider Instructions for Treatment Patient Instructions Indication:Migraine with aura and without status migrainosus, not intractable Start:31-May-2013 Instruction Type:Provider Instructions for Treatment Patient Instructions Indication:Frequency Start:08-Oct-2012 Instruction Type:Provider Instructions for Treatment Patient Instructions Indication:Migraine with aura and without status migrainosus, not intractable Start:22-Sep-2012 Instruction Type:Provider Instructions for Treatment Patient Instructions Indication:Depressive Disorder (311.) Start:15-Apr-2012 Instruction Type:Provider Instructions for Treatment Name Dates Details How to access health informa tion online Indication:Nonsmoker Start:28-Feb-2020 Instruction Type:Patient Education How to access health informa tion online - Detail Indication:Nonsmoker Start:28-Feb-2020 Instruction Type:Patient Education Patient Instructions Indication:Nonsmoker Start:28-Feb-2020 Instruction Type:Provider Instructions for Treatment How to access health informa tion online Indication:Nonsmoker Start:28-Jun-2019 Instruction Type:Patient Education How to access health informa tion online - Detail Indication:Nonsmoker Start:28-Jun-2019 Instruction Type:Patient Education Patient Instructions Indication:Urinary frequency Start:28-Jun-2019 Instruction Type:Provider Instructions for Treatment How to access health informa tion online Indication:Nonsmoker Start:16-Jun-2018 Instruction Type:Patient Education How to access health informa tion online - Detail Indication:Nonsmoker Start:16-Jun-2018 Instruction Type:Patient Education Patient Instructions Indication:Nonsmoker Start:16-Jun-2018 Instruction Type:Provider Instructions for Treatment How to access health informa tion online Indication:Nonsmoker Start:13-Apr-2018 Instruction Type:Patient Education How to access health informa tion online - Detail Indication:Nonsmoker Start:13-Apr-2018 Instruction Type:Patient Education Patient Instructions Indication:Nonsmoker Start:13-Apr-2018 Instruction Type:Provider Instructions for Treatment How to access health informa tion online Indication:Physical exam for work or camp (Renamed from Encounter for school health examination) Start:05-May-2017 Instruction Type:Patient Education How to access health informa tion online - Detail Indication:Physical exam for work or camp (Renamed from Encounter for school health examination) Start:05-May-2017 Instruction Type:Patient Education Patient Instructions Indication:Physical exam for work or camp (Renamed from Encounter for school health examination) Start:05-May-2017 Instruction Type:Provider Instructions for Treatment Patient Instructions Indication:Folliculitis Start:07-Mar-2017 Instruction Type:Provider Instructions for Treatment How to access health informa tion online Indication:Rash of unknown cause Start:07-Mar-2017 Instruction Type:Patient Education How to access health informa tion online - Detail Indication:Rash of unknown cause Start:07-Mar-2017 Instruction Type:Patient Education How to access health informa tion online Indication:Fibromyalgia Start:15-May-2015 Instruction Type:Patient Education How to access health informa tion online - Detail Indication:Fibromyalgia Start:15-May-2015 Instruction Type:Patient Education Patient Instructions Indication:Fibromyalgia Start:15-May-2015 Instruction Type:Provider Instructions for Treatment How to access health informa tion online Indication:Migraine Start:10-Feb-2015 Instruction Type:Patient Education How to access health informa tion online - Detail Indication:Migraine Start:10-Feb-2015 Instruction Type:Patient Education Patient Instructions Indication:Migraine Start:10-Feb-2015 Instruction Type:Provider Instructions for Treatment Patient Instructions Indication:Depressive Disorder (311.) Start:11-May-2014 Instruction Type:Provider Instructions for Treatment Patient Instructions Indication:Migraine with aura and without status migrainosus, not intractable Start:15-Oct-2013 Instruction Type:Provider Instructions for Treatment Patient Instructions Indication:Migraine with aura and without status migrainosus, not intractable Start:11-Jun-2013 Instruction Type:Provider Instructions for Treatment Patient Instructions Indication:Migraine with aura and without status migrainosus, not intractable Start:31-May-2013 Instruction Type:Provider Instructions for Treatment Patient Instructions Indication:Frequency Start:08-Oct-2012 Instruction Type:Provider Instructions for Treatment Patient Instructions Indication:Migraine with aura and without status migrainosus, not intractable Start:22-Sep-2012 Instruction Type:Provider Instructions for Treatment Patient Instructions Indication:Depressive Disorder (311.) Start:15-Apr-2012 Instruction Type:Provider Instructions for Treatment Name Dates Details How to access health informa tion online Indication:Nonsmoker Start:28-Feb-2020 Instruction Type:Patient Education How to access health informa tion online - Detail Indication:Nonsmoker Start:28-Feb-2020 Instruction Type:Patient Education Patient Instructions Indication:Nonsmoker Start:28-Feb-2020 Instruction Type:Provider Instructions for Treatment How to access health informa tion online Indication:Nonsmoker Start:28-Jun-2019 Instruction Type:Patient Education How to access health informa tion online - Detail Indication:Nonsmoker Start:28-Jun-2019 Instruction Type:Patient Education Patient Instructions Indication:Urinary frequency Start:28-Jun-2019 Instruction Type:Provider Instructions for Treatment How to access health informa tion online Indication:Nonsmoker Start:16-Jun-2018 Instruction Type:Patient Education How to access health informa tion online - Detail Indication:Nonsmoker Start:16-Jun-2018 Instruction Type:Patient Education Patient Instructions Indication:Nonsmoker Start:16-Jun-2018 Instruction Type:Provider Instructions for Treatment How to access health informa tion online Indication:Nonsmoker Start:13-Apr-2018 Instruction Type:Patient Education How to access health informa tion online - Detail Indication:Nonsmoker Start:13-Apr-2018 Instruction Type:Patient Education Patient Instructions Indication:Nonsmoker Start:13-Apr-2018 Instruction Type:Provider Instructions for Treatment How to access health informa tion online Indication:Physical exam for work or camp (Renamed from Encounter for school health examination) Start:05-May-2017 Instruction Type:Patient Education How to access health informa tion online - Detail Indication:Physical exam for work or camp (Renamed from Encounter for school health examination) Start:05-May-2017 Instruction Type:Patient Education Patient Instructions Indication:Physical exam for work or camp (Renamed from Encounter for school health examination) Start:05-May-2017 Instruction Type:Provider Instructions for Treatment Patient Instructions Indication:Folliculitis Start:07-Mar-2017 Instruction Type:Provider Instructions for Treatment How to access health informa tion online Indication:Rash of unknown cause Start:07-Mar-2017 Instruction Type:Patient Education How to access health informa tion online - Detail Indication:Rash of unknown cause Start:07-Mar-2017 Instruction Type:Patient Education How to access health informa tion online Indication:Fibromyalgia Start:15-May-2015 Instruction Type:Patient Education How to access health informa tion online - Detail Indication:Fibromyalgia Start:15-May-2015 Instruction Type:Patient Education Patient Instructions Indication:Fibromyalgia Start:15-May-2015 Instruction Type:Provider Instructions for Treatment How to access health informa tion online Indication:Migraine Start:10-Feb-2015 Instruction Type:Patient Education How to access health informa tion online - Detail Indication:Migraine Start:10-Feb-2015 Instruction Type:Patient Education Patient Instructions Indication:Migraine Start:10-Feb-2015 Instruction Type:Provider Instructions for Treatment Patient Instructions Indication:Depressive Disorder (311.) Start:11-May-2014 Instruction Type:Provider Instructions for Treatment Patient Instructions Indication:Migraine with aura and without status migrainosus, not intractable Start:15-Oct-2013 Instruction Type:Provider Instructions for Treatment Patient Instructions Indication:Migraine with aura and without status migrainosus, not intractable Start:11-Jun-2013 Instruction Type:Provider Instructions for Treatment Patient Instructions Indication:Migraine with aura and without status migrainosus, not intractable Start:31-May-2013 Instruction Type:Provider Instructions for Treatment Patient Instructions Indication:Frequency Start:08-Oct-2012 Instruction Type:Provider Instructions for Treatment Patient Instructions Indication:Migraine with aura and without status migrainosus, not intractable Start:22-Sep-2012 Instruction Type:Provider Instructions for Treatment Patient Instructions Indication:Depressive Disorder (311.) Start:15-Apr-2012 Instruction Type:Provider Instructions for Treatment Name Dates Details How to access health informa tion online Indication:Nonsmoker Start:28-Feb-2020 Instruction Type:Patient Education How to access health informa tion online - Detail Indication:Nonsmoker Start:28-Feb-2020 Instruction Type:Patient Education Patient Instructions Indication:Nonsmoker Start:28-Feb-2020 Instruction Type:Provider Instructions for Treatment How to access health informa tion online Indication:Nonsmoker Start:28-Jun-2019 Instruction Type:Patient Education How to access health informa tion online - Detail Indication:Nonsmoker Start:28-Jun-2019 Instruction Type:Patient Education Patient Instructions Indication:Urinary frequency Start:28-Jun-2019 Instruction Type:Provider Instructions for Treatment How to access health informa tion online Indication:Nonsmoker Start:16-Jun-2018 Instruction Type:Patient Education How to access health informa tion online - Detail Indication:Nonsmoker Start:16-Jun-2018 Instruction Type:Patient Education Patient Instructions Indication:Nonsmoker Start:16-Jun-2018 Instruction Type:Provider Instructions for Treatment How to access health informa tion online Indication:Nonsmoker Start:13-Apr-2018 Instruction Type:Patient Education How to access health informa tion online - Detail Indication:Nonsmoker Start:13-Apr-2018 Instruction Type:Patient Education Patient Instructions Indication:Nonsmoker Start:13-Apr-2018 Instruction Type:Provider Instructions for Treatment How to access health informa tion online Indication:Physical exam for work or camp (Renamed from Encounter for school health examination) Start:05-May-2017 Instruction Type:Patient Education How to access health informa tion online - Detail Indication:Physical exam for work or camp (Renamed from Encounter for school health examination) Start:05-May-2017 Instruction Type:Patient Education Patient Instructions Indication:Physical exam for work or camp (Renamed from Encounter for school health examination) Start:05-May-2017 Instruction Type:Provider Instructions for Treatment Patient Instructions Indication:Folliculitis Start:07-Mar-2017 Instruction Type:Provider Instructions for Treatment How to access health informa tion online Indication:Rash of unknown cause Start:07-Mar-2017 Instruction Type:Patient Education How to access health informa tion online - Detail Indication:Rash of unknown cause Start:07-Mar-2017 Instruction Type:Patient Education How to access health informa tion online Indication:Fibromyalgia Start:15-May-2015 Instruction Type:Patient Education How to access health informa tion online - Detail Indication:Fibromyalgia Start:15-May-2015 Instruction Type:Patient Education Patient Instructions Indication:Fibromyalgia Start:15-May-2015 Instruction Type:Provider Instructions for Treatment How to access health informa tion online Indication:Migraine Start:10-Feb-2015 Instruction Type:Patient Education How to access health informa tion online - Detail Indication:Migraine Start:10-Feb-2015 Instruction Type:Patient Education Patient Instructions Indication:Migraine Start:10-Feb-2015 Instruction Type:Provider Instructions for Treatment Patient Instructions Indication:Depressive Disorder (311.) Start:11-May-2014 Instruction Type:Provider Instructions for Treatment Patient Instructions Indication:Migraine with aura and without status migrainosus, not intractable Start:15-Oct-2013 Instruction Type:Provider Instructions for Treatment Patient Instructions Indication:Migraine with aura and without status migrainosus, not intractable Start:11-Jun-2013 Instruction Type:Provider Instructions for Treatment Patient Instructions Indication:Migraine with aura and without status migrainosus, not intractable Start:31-May-2013 Instruction Type:Provider Instructions for Treatment Patient Instructions Indication:Frequency Start:08-Oct-2012 Instruction Type:Provider Instructions for Treatment Patient Instructions Indication:Migraine with aura and without status migrainosus, not intractable Start:22-Sep-2012 Instruction Type:Provider Instructions for Treatment Patient Instructions Indication:Depressive Disorder (311.) Start:15-Apr-2012 Instruction Type:Provider Instructions for Treatment Name Dates Details How to access health informa tion online - Detail Indication:Nonsmoker Start:24-Mar-2020 Instruction Type:Patient Education How to access health informa tion online Indication:Nonsmoker Start:24-Mar-2020 Instruction Type:Patient Education Patient Instructions Indication:PA (psoriatic arthritis) Start:24-Mar-2020 Instruction Type:Provider Instructions for Treatment How to access health informa tion online Indication:Nonsmoker Start:28-Feb-2020 Instruction Type:Patient Education How to access health informa tion online - Detail Indication:Nonsmoker Start:28-Feb-2020 Instruction Type:Patient Education Patient Instructions Indication:Nonsmoker Start:28-Feb-2020 Instruction Type:Provider Instructions for Treatment How to access health informa tion online Indication:Nonsmoker Start:28-Jun-2019 Instruction Type:Patient Education How to access health informa tion online - Detail Indication:Nonsmoker Start:28-Jun-2019 Instruction Type:Patient Education Patient Instructions Indication:Urinary frequency Start:28-Jun-2019 Instruction Type:Provider Instructions for Treatment How to access health informa tion online Indication:Nonsmoker Start:16-Jun-2018 Instruction Type:Patient Education How to access health informa tion online - Detail Indication:Nonsmoker Start:16-Jun-2018 Instruction Type:Patient Education Patient Instructions Indication:Nonsmoker Start:16-Jun-2018 Instruction Type:Provider Instructions for Treatment How to access health informa tion online Indication:Nonsmoker Start:13-Apr-2018 Instruction Type:Patient Education How to access health informa tion online - Detail Indication:Nonsmoker Start:13-Apr-2018 Instruction Type:Patient Education Patient Instructions Indication:Nonsmoker Start:13-Apr-2018 Instruction Type:Provider Instructions for Treatment How to access health informa tion online Indication:Physical exam for work or camp (Renamed from Encounter for school health examination) Start:05-May-2017 Instruction Type:Patient Education How to access health informa tion online - Detail Indication:Physical exam for work or camp (Renamed from Encounter for school health examination) Start:05-May-2017 Instruction Type:Patient Education Patient Instructions Indication:Physical exam for work or camp (Renamed from Encounter for school health examination) Start:05-May-2017 Instruction Type:Provider Instructions for Treatment Patient Instructions Indication:Folliculitis Start:07-Mar-2017 Instruction Type:Provider Instructions for Treatment How to access health informa tion online Indication:Rash of unknown cause Start:07-Mar-2017 Instruction Type:Patient Education How to access health informa tion online - Detail Indication:Rash of unknown cause Start:07-Mar-2017 Instruction Type:Patient Education How to access health informa tion online Indication:Fibromyalgia Start:15-May-2015 Instruction Type:Patient Education How to access health informa tion online - Detail Indication:Fibromyalgia Start:15-May-2015 Instruction Type:Patient Education Patient Instructions Indication:Fibromyalgia Start:15-May-2015 Instruction Type:Provider Instructions for Treatment How to access health informa tion online Indication:Migraine Start:10-Feb-2015 Instruction Type:Patient Education How to access health informa tion online - Detail Indication:Migraine Start:10-Feb-2015 Instruction Type:Patient Education Patient Instructions Indication:Migraine Start:10-Feb-2015 Instruction Type:Provider Instructions for Treatment Patient Instructions Indication:Depressive Disorder (311.) Start:11-May-2014 Instruction Type:Provider Instructions for Treatment Patient Instructions Indication:Migraine with aura and without status migrainosus, not intractable Start:15-Oct-2013 Instruction Type:Provider Instructions for Treatment Patient Instructions Indication:Migraine with aura and without status migrainosus, not intractable Start:11-Jun-2013 Instruction Type:Provider Instructions for Treatment Patient Instructions Indication:Migraine with aura and without status migrainosus, not intractable Start:31-May-2013 Instruction Type:Provider Instructions for Treatment Patient Instructions Indication:Frequency Start:08-Oct-2012 Instruction Type:Provider Instructions for Treatment Patient Instructions Indication:Migraine with aura and without status migrainosus, not intractable Start:22-Sep-2012 Instruction Type:Provider Instructions for Treatment Patient Instructions Indication:Depressive Disorder (311.) Start:15-Apr-2012 Instruction Type:Provider Instructions for Treatment Name Dates Details How to access health informa tion online - Detail Indication:Nonsmoker Start:24-Mar-2020 Instruction Type:Patient Education How to access health informa tion online Indication:Nonsmoker Start:24-Mar-2020 Instruction Type:Patient Education Patient Instructions Indication:PA (psoriatic arthritis) Start:24-Mar-2020 Instruction Type:Provider Instructions for Treatment How to access health informa tion online Indication:Nonsmoker Start:28-Feb-2020 Instruction Type:Patient Education How to access health informa tion online - Detail Indication:Nonsmoker Start:28-Feb-2020 Instruction Type:Patient Education Patient Instructions Indication:Nonsmoker Start:28-Feb-2020 Instruction Type:Provider Instructions for Treatment How to access health informa tion online Indication:Nonsmoker Start:28-Jun-2019 Instruction Type:Patient Education How to access health informa tion online - Detail Indication:Nonsmoker Start:28-Jun-2019 Instruction Type:Patient Education Patient Instructions Indication:Urinary frequency Start:28-Jun-2019 Instruction Type:Provider Instructions for Treatment How to access health informa tion online Indication:Nonsmoker Start:16-Jun-2018 Instruction Type:Patient Education How to access health informa tion online - Detail Indication:Nonsmoker Start:16-Jun-2018 Instruction Type:Patient Education Patient Instructions Indication:Nonsmoker Start:16-Jun-2018 Instruction Type:Provider Instructions for Treatment How to access health informa tion online Indication:Nonsmoker Start:13-Apr-2018 Instruction Type:Patient Education How to access health informa tion online - Detail Indication:Nonsmoker Start:13-Apr-2018 Instruction Type:Patient Education Patient Instructions Indication:Nonsmoker Start:13-Apr-2018 Instruction Type:Provider Instructions for Treatment How to access health informa tion online Indication:Physical exam for work or camp (Renamed from Encounter for school health examination) Start:05-May-2017 Instruction Type:Patient Education How to access health informa tion online - Detail Indication:Physical exam for work or camp (Renamed from Encounter for school health examination) Start:05-May-2017 Instruction Type:Patient Education Patient Instructions Indication:Physical exam for work or camp (Renamed from Encounter for school health examination) Start:05-May-2017 Instruction Type:Provider Instructions for Treatment Patient Instructions Indication:Folliculitis Start:07-Mar-2017 Instruction Type:Provider Instructions for Treatment How to access health informa tion online Indication:Rash of unknown cause Start:07-Mar-2017 Instruction Type:Patient Education How to access health informa tion online - Detail Indication:Rash of unknown cause Start:07-Mar-2017 Instruction Type:Patient Education How to access health informa tion online Indication:Fibromyalgia Start:15-May-2015 Instruction Type:Patient Education How to access health informa tion online - Detail Indication:Fibromyalgia Start:15-May-2015 Instruction Type:Patient Education Patient Instructions Indication:Fibromyalgia Start:15-May-2015 Instruction Type:Provider Instructions for Treatment How to access health informa tion online Indication:Migraine Start:10-Feb-2015 Instruction Type:Patient Education How to access health informa tion online - Detail Indication:Migraine Start:10-Feb-2015 Instruction Type:Patient Education Patient Instructions Indication:Migraine Start:10-Feb-2015 Instruction Type:Provider Instructions for Treatment Patient Instructions Indication:Depressive Disorder (311.) Start:11-May-2014 Instruction Type:Provider Instructions for Treatment Patient Instructions Indication:Migraine with aura and without status migrainosus, not intractable Start:15-Oct-2013 Instruction Type:Provider Instructions for Treatment Patient Instructions Indication:Migraine with aura and without status migrainosus, not intractable Start:11-Jun-2013 Instruction Type:Provider Instructions for Treatment Patient Instructions Indication:Migraine with aura and without status migrainosus, not intractable Start:31-May-2013 Instruction Type:Provider Instructions for Treatment Patient Instructions Indication:Frequency Start:08-Oct-2012 Instruction Type:Provider Instructions for Treatment Patient Instructions Indication:Migraine with aura and without status migrainosus, not intractable Start:22-Sep-2012 Instruction Type:Provider Instructions for Treatment Patient Instructions Indication:Depressive Disorder (311.) Start:15-Apr-2012 Instruction Type:Provider Instructions for Treatment Name Dates Details How to access health informa tion online - Detail Indication:Nonsmoker Start:24-Mar-2020 Instruction Type:Patient Education How to access health informa tion online Indication:Nonsmoker Start:24-Mar-2020 Instruction Type:Patient Education Patient Instructions Indication:[place] (psoriatic arthritis) Start:24-Mar-2020 Instruction Type:Provider Instructions for Treatment How to access health informa tion online Indication:Nonsmoker Start:28-Feb-2020 Instruction Type:Patient Education How to access health informa tion online - Detail Indication:Nonsmoker Start:28-Feb-2020 Instruction Type:Patient Education Patient Instructions Indication:Nonsmoker Start:28-Feb-2020 Instruction Type:Provider Instructions for Treatment How to access health informa tion online Indication:Nonsmoker Start:28-Jun-2019 Instruction Type:Patient Education How to access health informa tion online - Detail Indication:Nonsmoker Start:28-Jun-2019 Instruction Type:Patient Education Patient Instructions Indication:Urinary frequency Start:28-Jun-2019 Instruction Type:Provider Instructions for Treatment How to access health informa tion online Indication:Nonsmoker Start:16-Jun-2018 Instruction Type:Patient Education How to access health informa tion online - Detail Indication:Nonsmoker Start:16-Jun-2018 Instruction Type:Patient Education Patient Instructions Indication:Nonsmoker Start:16-Jun-2018 Instruction Type:Provider Instructions for Treatment How to access health informa tion online Indication:Nonsmoker Start:13-Apr-2018 Instruction Type:Patient Education How to access health informa tion online - Detail Indication:Nonsmoker Start:13-Apr-2018 Instruction Type:Patient Education Patient Instructions Indication:Nonsmoker Start:13-Apr-2018 Instruction Type:Provider Instructions for Treatment How to access health informa tion online Indication:Physical exam for work or camp (Renamed from Encounter for school health examination) Start:05-May-2017 Instruction Type:Patient Education How to access health informa tion online - Detail Indication:Physical exam for work or camp (Renamed from Encounter for school health examination) Start:05-May-2017 Instruction Type:Patient Education Patient Instructions Indication:Physical exam for work or camp (Renamed from Encounter for school health examination) Start:05-May-2017 Instruction Type:Provider Instructions for Treatment Patient Instructions Indication:Folliculitis Start:07-Mar-2017 Instruction Type:Provider Instructions for Treatment How to access health informa tion online Indication:Rash of unknown cause Start:07-Mar-2017 Instruction Type:Patient Education How to access health informa tion online - Detail Indication:Rash of unknown cause Start:07-Mar-2017 Instruction Type:Patient Education How to access health informa tion online Indication:Fibromyalgia Start:15-May-2015 Instruction Type:Patient Education How to access health informa tion online - Detail Indication:Fibromyalgia Start:15-May-2015 Instruction Type:Patient Education Patient Instructions Indication:Fibromyalgia Start:15-May-2015 Instruction Type:Provider Instructions for Treatment How to access health informa tion online Indication:Migraine Start:10-Feb-2015 Instruction Type:Patient Education How to access health informa tion online - Detail Indication:Migraine Start:10-Feb-2015 Instruction Type:Patient Education Patient Instructions Indication:Migraine Start:10-Feb-2015 Instruction Type:Provider Instructions for Treatment Patient Instructions Indication:Depressive Disorder (311.) Start:11-May-2014 Instruction Type:Provider Instructions for Treatment Patient Instructions Indication:Migraine with aura and without status migrainosus, not intractable Start:15-Oct-2013 Instruction Type:Provider Instructions for Treatment Patient Instructions Indication:Migraine with aura and without status migrainosus, not intractable Start:11-Jun-2013 Instruction Type:Provider Instructions for Treatment Patient Instructions Indication:Migraine with aura and without status migrainosus, not intractable Start:31-May-2013 Instruction Type:Provider Instructions for Treatment Patient Instructions Indication:Frequency Start:08-Oct-2012 Instruction Type:Provider Instructions for Treatment Patient Instructions Indication:Migraine with aura and without status migrainosus, not intractable Start:22-Sep-2012 Instruction Type:Provider Instructions for Treatment Patient Instructions Indication:Depressive Disorder (311.) Start:15-Apr-2012 Instruction Type:Provider Instructions for Treatment Name Dates Details How to access health informa tion online - Detail Indication:Nonsmoker Start:24-Mar-2020 Instruction Type:Patient Education How to access health informa tion online Indication:Nonsmoker Start:24-Mar-2020 Instruction Type:Patient Education Patient Instructions Indication:PA (psoriatic arthritis) Start:24-Mar-2020 Instruction Type:Provider Instructions for Treatment How to access health informa tion online Indication:Nonsmoker Start:28-Feb-2020 Instruction Type:Patient Education How to access health informa tion online - Detail Indication:Nonsmoker Start:28-Feb-2020 Instruction Type:Patient Education Patient Instructions Indication:Nonsmoker Start:28-Feb-2020 Instruction Type:Provider Instructions for Treatment How to access health informa tion online Indication:Nonsmoker Start:28-Jun-2019 Instruction Type:Patient Education How to access health informa tion online - Detail Indication:Nonsmoker Start:28-Jun-2019 Instruction Type:Patient Education Patient Instructions Indication:Urinary frequency Start:28-Jun-2019 Instruction Type:Provider Instructions for Treatment How to access health informa tion online Indication:Nonsmoker Start:16-Jun-2018 Instruction Type:Patient Education How to access health informa tion online - Detail Indication:Nonsmoker Start:16-Jun-2018 Instruction Type:Patient Education Patient Instructions Indication:Nonsmoker Start:16-Jun-2018 Instruction Type:Provider Instructions for Treatment How to access health informa tion online Indication:Nonsmoker Start:13-Apr-2018 Instruction Type:Patient Education How to access health informa tion online - Detail Indication:Nonsmoker Start:13-Apr-2018 Instruction Type:Patient Education Patient Instructions Indication:Nonsmoker Start:13-Apr-2018 Instruction Type:Provider Instructions for Treatment How to access health informa tion online Indication:Physical exam for work or camp (Renamed from Encounter for school health examination) Start:05-May-2017 Instruction Type:Patient Education How to access health informa tion online - Detail Indication:Physical exam for work or camp (Renamed from Encounter for school health examination) Start:05-May-2017 Instruction Type:Patient Education Patient Instructions Indication:Physical exam for work or camp (Renamed from Encounter for school health examination) Start:05-May-2017 Instruction Type:Provider Instructions for Treatment Patient Instructions Indication:Folliculitis Start:07-Mar-2017 Instruction Type:Provider Instructions for Treatment How to access health informa tion online Indication:Rash of unknown cause Start:07-Mar-2017 Instruction Type:Patient Education How to access health informa tion online - Detail Indication:Rash of unknown cause Start:07-Mar-2017 Instruction Type:Patient Education How to access health informa tion online Indication:Fibromyalgia Start:15-May-2015 Instruction Type:Patient Education How to access health informa tion online - Detail Indication:Fibromyalgia Start:15-May-2015 Instruction Type:Patient Education Patient Instructions Indication:Fibromyalgia Start:15-May-2015 Instruction Type:Provider Instructions for Treatment How to access health informa tion online Indication:Migraine Start:10-Feb-2015 Instruction Type:Patient Education How to access health informa tion online - Detail Indication:Migraine Start:10-Feb-2015 Instruction Type:Patient Education Patient Instructions Indication:Migraine Start:10-Feb-2015 Instruction Type:Provider Instructions for Treatment Patient Instructions Indication:Depressive Disorder (311.) Start:11-May-2014 Instruction Type:Provider Instructions for Treatment Patient Instructions Indication:Migraine with aura and without status migrainosus, not intractable Start:15-Oct-2013 Instruction Type:Provider Instructions for Treatment Patient Instructions Indication:Migraine with aura and without status migrainosus, not intractable Start:11-Jun-2013 Instruction Type:Provider Instructions for Treatment Patient Instructions Indication:Migraine with aura and without status migrainosus, not intractable Start:31-May-2013 Instruction Type:Provider Instructions for Treatment Patient Instructions Indication:Frequency Start:08-Oct-2012 Instruction Type:Provider Instructions for Treatment Patient Instructions Indication:Migraine with aura and without status migrainosus, not intractable Start:22-Sep-2012 Instruction Type:Provider Instructions for Treatment Patient Instructions Indication:Depressive Disorder (311.) Start:15-Apr-2012 Instruction Type:Provider Instructions for Treatment Name Dates Details How to access health informa tion online - Detail Indication:Nonsmoker Start:24-Mar-2020 Instruction Type:Patient Education How to access health informa tion online Indication:Nonsmoker Start:24-Mar-2020 Instruction Type:Patient Education Patient Instructions Indication:[place] (psoriatic arthritis) Start:24-Mar-2020 Instruction Type:Provider Instructions for Treatment How to access health informa tion online Indication:Nonsmoker Start:28-Feb-2020 Instruction Type:Patient Education How to access health informa tion online - Detail Indication:Nonsmoker Start:28-Feb-2020 Instruction Type:Patient Education Patient Instructions Indication:Nonsmoker Start:28-Feb-2020 Instruction Type:Provider Instructions for Treatment How to access health informa tion online Indication:Nonsmoker Start:28-Jun-2019 Instruction Type:Patient Education How to access health informa tion online - Detail Indication:Nonsmoker Start:28-Jun-2019 Instruction Type:Patient Education Patient Instructions Indication:Urinary frequency Start:28-Jun-2019 Instruction Type:Provider Instructions for Treatment How to access health informa tion online Indication:Nonsmoker Start:16-Jun-2018 Instruction Type:Patient Education How to access health informa tion online - Detail Indication:Nonsmoker Start:16-Jun-2018 Instruction Type:Patient Education Patient Instructions Indication:Nonsmoker Start:16-Jun-2018 Instruction Type:Provider Instructions for Treatment How to access health informa tion online Indication:Nonsmoker Start:13-Apr-2018 Instruction Type:Patient Education How to access health informa tion online - Detail Indication:Nonsmoker Start:13-Apr-2018 Instruction Type:Patient Education Patient Instructions Indication:Nonsmoker Start:13-Apr-2018 Instruction Type:Provider Instructions for Treatment How to access health informa tion online Indication:Physical exam for work or camp (Renamed from Encounter for school health examination) Start:05-May-2017 Instruction Type:Patient Education How to access health informa tion online - Detail Indication:Physical exam for work or camp (Renamed from Encounter for school health examination) Start:05-May-2017 Instruction Type:Patient Education Patient Instructions Indication:Physical exam for work or camp (Renamed from Encounter for school health examination) Start:05-May-2017 Instruction Type:Provider Instructions for Treatment Patient Instructions Indication:Folliculitis Start:07-Mar-2017 Instruction Type:Provider Instructions for Treatment How to access health informa tion online Indication:Rash of unknown cause Start:07-Mar-2017 Instruction Type:Patient Education How to access health informa tion online - Detail Indication:Rash of unknown cause Start:07-Mar-2017 Instruction Type:Patient Education How to access health informa tion online Indication:Fibromyalgia Start:15-May-2015 Instruction Type:Patient Education How to access health informa tion online - Detail Indication:Fibromyalgia Start:15-May-2015 Instruction Type:Patient Education Patient Instructions Indication:Fibromyalgia Start:15-May-2015 Instruction Type:Provider Instructions for Treatment How to access health informa tion online Indication:Migraine Start:10-Feb-2015 Instruction Type:Patient Education How to access health informa tion online - Detail Indication:Migraine Start:10-Feb-2015 Instruction Type:Patient Education Patient Instructions Indication:Migraine Start:10-Feb-2015 Instruction Type:Provider Instructions for Treatment Patient Instructions Indication:Depressive Disorder (311.) Start:11-May-2014 Instruction Type:Provider Instructions for Treatment Patient Instructions Indication:Migraine with aura and without status migrainosus, not intractable Start:15-Oct-2013 Instruction Type:Provider Instructions for Treatment Patient Instructions Indication:Migraine with aura and without status migrainosus, not intractable Start:11-Jun-2013 Instruction Type:Provider Instructions for Treatment Patient Instructions Indication:Migraine with aura and without status migrainosus, not intractable Start:31-May-2013 Instruction Type:Provider Instructions for Treatment Patient Instructions Indication:Frequency Start:08-Oct-2012 Instruction Type:Provider Instructions for Treatment Patient Instructions Indication:Migraine with aura and without status migrainosus, not intractable Start:22-Sep-2012 Instruction Type:Provider Instructions for Treatment Patient Instructions Indication:Depressive Disorder (311.) Start:15-Apr-2012 Instruction Type:Provider Instructions for Treatment Name Dates Details How to access health informa tion online - Detail Indication:Nonsmoker Start:24-Mar-2020 Instruction Type:Patient Education How to access health informa tion online Indication:Nonsmoker Start:24-Mar-2020 Instruction Type:Patient Education Patient Instructions Indication:[place] (psoriatic arthritis) Start:24-Mar-2020 Instruction Type:Provider Instructions for Treatment How to access health informa tion online Indication:Nonsmoker Start:28-Feb-2020 Instruction Type:Patient Education How to access health informa tion online - Detail Indication:Nonsmoker Start:28-Feb-2020 Instruction Type:Patient Education Patient Instructions Indication:Nonsmoker Start:28-Feb-2020 Instruction Type:Provider Instructions for Treatment How to access health informa tion online Indication:Nonsmoker Start:28-Jun-2019 Instruction Type:Patient Education How to access health informa tion online - Detail Indication:Nonsmoker Start:28-Jun-2019 Instruction Type:Patient Education Patient Instructions Indication:Urinary frequency Start:28-Jun-2019 Instruction Type:Provider Instructions for Treatment How to access health informa tion online Indication:Nonsmoker Start:16-Jun-2018 Instruction Type:Patient Education How to access health informa tion online - Detail Indication:Nonsmoker Start:16-Jun-2018 Instruction Type:Patient Education Patient Instructions Indication:Nonsmoker Start:16-Jun-2018 Instruction Type:Provider Instructions for Treatment How to access health informa tion online Indication:Nonsmoker Start:13-Apr-2018 Instruction Type:Patient Education How to access health informa tion online - Detail Indication:Nonsmoker Start:13-Apr-2018 Instruction Type:Patient Education Patient Instructions Indication:Nonsmoker Start:13-Apr-2018 Instruction Type:Provider Instructions for Treatment How to access health informa tion online Indication:Physical exam for work or camp (Renamed from Encounter for school health examination) Start:05-May-2017 Instruction Type:Patient Education How to access health informa tion online - Detail Indication:Physical exam for work or camp (Renamed from Encounter for school health examination) Start:05-May-2017 Instruction Type:Patient Education Patient Instructions Indication:Physical exam for work or camp (Renamed from Encounter for school health examination) Start:05-May-2017 Instruction Type:Provider Instructions for Treatment Patient Instructions Indication:Folliculitis Start:07-Mar-2017 Instruction Type:Provider Instructions for Treatment How to access health informa tion online Indication:Rash of unknown cause Start:07-Mar-2017 Instruction Type:Patient Education How to access health informa tion online - Detail Indication:Rash of unknown cause Start:07-Mar-2017 Instruction Type:Patient Education How to access health informa tion online Indication:Fibromyalgia Start:15-May-2015 Instruction Type:Patient Education How to access health informa tion online - Detail Indication:Fibromyalgia Start:15-May-2015 Instruction Type:Patient Education Patient Instructions Indication:Fibromyalgia Start:15-May-2015 Instruction Type:Provider Instructions for Treatment How to access health informa tion online Indication:Migraine Start:10-Feb-2015 Instruction Type:Patient Education How to access health informa tion online - Detail Indication:Migraine Start:10-Feb-2015 Instruction Type:Patient Education Patient Instructions Indication:Migraine Start:10-Feb-2015 Instruction Type:Provider Instructions for Treatment Patient Instructions Indication:Depressive Disorder (311.) Start:11-May-2014 Instruction Type:Provider Instructions for Treatment Patient Instructions Indication:Migraine with aura and without status migrainosus, not intractable Start:15-Oct-2013 Instruction Type:Provider Instructions for Treatment Patient Instructions Indication:Migraine with aura and without status migrainosus, not intractable Start:11-Jun-2013 Instruction Type:Provider Instructions for Treatment Patient Instructions Indication:Migraine with aura and without status migrainosus, not intractable Start:31-May-2013 Instruction Type:Provider Instructions for Treatment Patient Instructions Indication:Frequency Start:08-Oct-2012 Instruction Type:Provider Instructions for Treatment Patient Instructions Indication:Migraine with aura and without status migrainosus, not intractable Start:22-Sep-2012 Instruction Type:Provider Instructions for Treatment Patient Instructions Indication:Depressive Disorder (311.) Start:15-Apr-2012 Instruction Type:Provider Instructions for Treatment Name Dates Details How to access health informa tion online Indication:Nonsmoker Start:16-Jun-2018 Instruction Type:Patient Education How to access health informa tion online - Detail Indication:Nonsmoker Start:16-Jun-2018 Instruction Type:Patient Education Patient Instructions Indication:Nonsmoker Start:16-Jun-2018 Instruction Type:Provider Instructions for Treatment How to access health informa tion online Indication:Nonsmoker Start:13-Apr-2018 Instruction Type:Patient Education How to access health informa tion online - Detail Indication:Nonsmoker Start:13-Apr-2018 Instruction Type:Patient Education Patient Instructions Indication:Nonsmoker Start:13-Apr-2018 Instruction Type:Provider Instructions for Treatment How to access health informa tion online Indication:Physical exam for work or camp (Renamed from Encounter for school health examination) Start:05-May-2017 Instruction Type:Patient Education How to access health informa tion online - Detail Indication:Physical exam for work or camp (Renamed from Encounter for school health examination) Start:05-May-2017 Instruction Type:Patient Education Patient Instructions Indication:Physical exam for work or camp (Renamed from Encounter for school health examination) Start:05-May-2017 Instruction Type:Provider Instructions for Treatment Patient Instructions Indication:Folliculitis Start:07-Mar-2017 Instruction Type:Provider Instructions for Treatment How to access health informa tion online Indication:Rash of unknown cause Start:07-Mar-2017 Instruction Type:Patient Education How to access health informa tion online - Detail Indication:Rash of unknown cause Start:07-Mar-2017 Instruction Type:Patient Education How to access health informa tion online Indication:Fibromyalgia Start:15-May-2015 Instruction Type:Patient Education How to access health informa tion online - Detail Indication:Fibromyalgia Start:15-May-2015 Instruction Type:Patient Education Patient Instructions Indication:Fibromyalgia Start:15-May-2015 Instruction Type:Provider Instructions for Treatment How to access health informa tion online Indication:Migraine Start:10-Feb-2015 Instruction Type:Patient Education How to access health informa tion online - Detail Indication:Migraine Start:10-Feb-2015 Instruction Type:Patient Education Patient Instructions Indication:Migraine Start:10-Feb-2015 Instruction Type:Provider Instructions for Treatment Patient Instructions Indication:Depressive Disorder (311.) Start:11-May-2014 Instruction Type:Provider Instructions for Treatment Patient Instructions Indication:Migraine with aura and without status migrainosus, not intractable Start:15-Oct-2013 Instruction Type:Provider Instructions for Treatment Patient Instructions Indication:Migraine with aura and without status migrainosus, not intractable Start:11-Jun-2013 Instruction Type:Provider Instructions for Treatment Patient Instructions Indication:Migraine with aura and without status migrainosus, not intractable Start:31-May-2013 Instruction Type:Provider Instructions for Treatment Patient Instructions Indication:Frequency Start:08-Oct-2012 Instruction Type:Provider Instructions for Treatment Patient Instructions Indication:Migraine with aura and without status migrainosus, not intractable Start:22-Sep-2012 Instruction Type:Provider Instructions for Treatment Patient Instructions Indication:Depressive Disorder (311.) Start:15-Apr-2012 Instruction Type:Provider Instructions for Treatment Name Dates Details How to access health informa tion online - Detail Indication:Nonsmoker Start:24-Mar-2020 Instruction Type:Patient Education How to access health informa tion online Indication:Nonsmoker Start:24-Mar-2020 Instruction Type:Patient Education Patient Instructions Indication:[place] (psoriatic arthritis) Start:24-Mar-2020 Instruction Type:Provider Instructions for Treatment How to access health informa tion online Indication:Nonsmoker Start:28-Feb-2020 Instruction Type:Patient Education How to access health informa tion online - Detail Indication:Nonsmoker Start:28-Feb-2020 Instruction Type:Patient Education Patient Instructions Indication:Nonsmoker Start:28-Feb-2020 Instruction Type:Provider Instructions for Treatment How to access health informa tion online Indication:Nonsmoker Start:28-Jun-2019 Instruction Type:Patient Education How to access health informa tion online - Detail Indication:Nonsmoker Start:28-Jun-2019 Instruction Type:Patient Education Patient Instructions Indication:Urinary frequency Start:28-Jun-2019 Instruction Type:Provider Instructions for Treatment How to access health informa tion online Indication:Nonsmoker Start:16-Jun-2018 Instruction Type:Patient Education How to access health informa tion online - Detail Indication:Nonsmoker Start:16-Jun-2018 Instruction Type:Patient Education Patient Instructions Indication:Nonsmoker Start:16-Jun-2018 Instruction Type:Provider Instructions for Treatment How to access health informa tion online Indication:Nonsmoker Start:13-Apr-2018 Instruction Type:Patient Education How to access health informa tion online - Detail Indication:Nonsmoker Start:13-Apr-2018 Instruction Type:Patient Education Patient Instructions Indication:Nonsmoker Start:13-Apr-2018 Instruction Type:Provider Instructions for Treatment How to access health informa tion online Indication:Physical exam for work or camp (Renamed from Encounter for school health examination) Start:05-May-2017 Instruction Type:Patient Education How to access health informa tion online - Detail Indication:Physical exam for work or camp (Renamed from Encounter for school health examination) Start:05-May-2017 Instruction Type:Patient Education Patient Instructions Indication:Physical exam for work or camp (Renamed from Encounter for school health examination) Start:05-May-2017 Instruction Type:Provider Instructions for Treatment Patient Instructions Indication:Folliculitis Start:07-Mar-2017 Instruction Type:Provider Instructions for Treatment How to access health informa tion online Indication:Rash of unknown cause Start:07-Mar-2017 Instruction Type:Patient Education How to access health informa tion online - Detail Indication:Rash of unknown cause Start:07-Mar-2017 Instruction Type:Patient Education How to access health informa tion online Indication:Fibromyalgia Start:15-May-2015 Instruction Type:Patient Education How to access health informa tion online - Detail Indication:Fibromyalgia Start:15-May-2015 Instruction Type:Patient Education Patient Instructions Indication:Fibromyalgia Start:15-May-2015 Instruction Type:Provider Instructions for Treatment How to access health informa tion online Indication:Migraine Start:10-Feb-2015 Instruction Type:Patient Education How to access health informa tion online - Detail Indication:Migraine Start:10-Feb-2015 Instruction Type:Patient Education Patient Instructions Indication:Migraine Start:10-Feb-2015 Instruction Type:Provider Instructions for Treatment Patient Instructions Indication:Depressive Disorder (311.) Start:11-May-2014 Instruction Type:Provider Instructions for Treatment Patient Instructions Indication:Migraine with aura and without status migrainosus, not intractable Start:15-Oct-2013 Instruction Type:Provider Instructions for Treatment Patient Instructions Indication:Migraine with aura and without status migrainosus, not intractable Start:11-Jun-2013 Instruction Type:Provider Instructions for Treatment Patient Instructions Indication:Migraine with aura and without status migrainosus, not intractable Start:31-May-2013 Instruction Type:Provider Instructions for Treatment Patient Instructions Indication:Frequency Start:08-Oct-2012 Instruction Type:Provider Instructions for Treatment Patient Instructions Indication:Migraine with aura and without status migrainosus, not intractable Start:22-Sep-2012 Instruction Type:Provider Instructions for Treatment Patient Instructions Indication:Depressive Disorder (311.) Start:15-Apr-2012 Instruction Type:Provider Instructions for Treatment Name Dates Details How to access health informa tion online Indication:Nonsmoker Start:16-Jun-2018 Instruction Type:Patient Education How to access health informa tion online - Detail Indication:Nonsmoker Start:16-Jun-2018 Instruction Type:Patient Education Patient Instructions Indication:Nonsmoker Start:16-Jun-2018 Instruction Type:Provider Instructions for Treatment How to access health informa tion online Indication:Nonsmoker Start:13-Apr-2018 Instruction Type:Patient Education How to access health informa tion online - Detail Indication:Nonsmoker Start:13-Apr-2018 Instruction Type:Patient Education Patient Instructions Indication:Nonsmoker Start:13-Apr-2018 Instruction Type:Provider Instructions for Treatment How to access health informa tion online Indication:Physical exam for work or camp (Renamed from Encounter for school health examination) Start:05-May-2017 Instruction Type:Patient Education How to access health informa tion online - Detail Indication:Physical exam for work or camp (Renamed from Encounter for school health examination) Start:05-May-2017 Instruction Type:Patient Education Patient Instructions Indication:Physical exam for work or camp (Renamed from Encounter for school health examination) Start:05-May-2017 Instruction Type:Provider Instructions for Treatment Patient Instructions Indication:Folliculitis Start:07-Mar-2017 Instruction Type:Provider Instructions for Treatment How to access health informa tion online Indication:Rash of unknown cause Start:07-Mar-2017 Instruction Type:Patient Education How to access health informa tion online - Detail Indication:Rash of unknown cause Start:07-Mar-2017 Instruction Type:Patient Education How to access health informa tion online Indication:Fibromyalgia Start:15-May-2015 Instruction Type:Patient Education How to access health informa tion online - Detail Indication:Fibromyalgia Start:15-May-2015 Instruction Type:Patient Education Patient Instructions Indication:Fibromyalgia Start:15-May-2015 Instruction Type:Provider Instructions for Treatment How to access health informa tion online Indication:Migraine Start:10-Feb-2015 Instruction Type:Patient Education How to access health informa tion online - Detail Indication:Migraine Start:10-Feb-2015 Instruction Type:Patient Education Patient Instructions Indication:Migraine Start:10-Feb-2015 Instruction Type:Provider Instructions for Treatment Patient Instructions Indication:Depressive Disorder (311.) Start:11-May-2014 Instruction Type:Provider Instructions for Treatment Patient Instructions Indication:Migraine with aura and without status migrainosus, not intractable Start:15-Oct-2013 Instruction Type:Provider Instructions for Treatment Patient Instructions Indication:Migraine with aura and without status migrainosus, not intractable Start:11-Jun-2013 Instruction Type:Provider Instructions for Treatment Patient Instructions Indication:Migraine with aura and without status migrainosus, not intractable Start:31-May-2013 Instruction Type:Provider Instructions for Treatment Patient Instructions Indication:Frequency Start:08-Oct-2012 Instruction Type:Provider Instructions for Treatment Patient Instructions Indication:Migraine with aura and without status migrainosus, not intractable Start:22-Sep-2012 Instruction Type:Provider Instructions for Treatment Patient Instructions Indication:Depressive Disorder (311.) Start:15-Apr-2012 Instruction Type:Provider Instructions for Treatment Chief Complaint and Reason for Visit Chief Complaint RIGHT KNEE xray STOMACH ISSUES EORDERS REDRAW GASTRIN TEST WHEN STOOL IS DROPPED OFF-OW Reason for Visit Patellofemoral syndr ome, right Right knee pain Diarrhea Chief Complaint STOMACH ISSUES EORDERS REDRAW GASTRIN TEST WHEN STOOL IS DROPPED OFF-OW Reason for Visit Diarrhea Chief Complaint STOMACH ISSUES EORDERS REDRAW GASTRIN TEST WHEN STOOL IS DROPPED OFF-OW DIARRHEA Reason for Visit Diarrhea Chief Complaint STOMACH ISSUES EORDERS REDRAW GASTRIN TEST WHEN STOOL IS DROPPED OFF-OW DIARRHEA EORDER Reason for Visit Diarrhea Chief Complaint STOMACH ISSUES EORDERS REDRAW GASTRIN TEST WHEN STOOL IS DROPPED OFF-OW DIARRHEA EORDER INT LABS Reason for Visit Diarrhea Chief Complaint STOMACH ISSUES EORDERS REDRAW GASTRIN TEST WHEN STOOL IS DROPPED OFF-OW DIARRHEA EORDER INT LABS 3 MO FU LEFT KNEE PAIN Reason for Visit Diarrhea Diarrhea Chief Complaint STOMACH ISSUES EORDERS REDRAW GASTRIN TEST WHEN STOOL IS DROPPED OFF-OW DIARRHEA EORDER INT LABS 3 MO FU LEFT KNEE PAIN LEFT KNEE DIARRHEA/ENTEROGRAPHY Reason for Visit Diarrhea Diarrhea Left knee pain Degenerative arthritis of left knee Chief Complaint STOMACH ISSUES EORDERS REDRAW GASTRIN TEST WHEN STOOL IS DROPPED OFF-OW DIARRHEA EORDER INT LABS 3 MO FU LEFT KNEE PAIN LEFT KNEE DIARRHEA/ENTEROGRAPHY left knee Reason for Visit Diarrhea Diarrhea Left knee pain Degenerative arthritis of left knee Left knee pain Degenerative arthritis of left knee Chief Complaint STOMACH ISSUES EORDERS REDRAW GASTRIN TEST WHEN STOOL IS DROPPED OFF-OW DIARRHEA EORDER INT LABS 3 MO FU LEFT KNEE PAIN LEFT KNEE DIARRHEA/ENTEROGRAPHY left knee L KNEE PAIN, UBILATERAL OSTEOARTHRITIS SCREENING Reason for Visit Diarrhea Diarrhea Left knee pain Degenerative arthritis of left knee Left knee pain Degenerative arthritis of left knee Chief Complaint EORDER INT LABS 3 MO FU LEFT KNEE PAIN LEFT KNEE DIARRHEA/ENTEROGRAPHY left knee SCREENING L KNEE PAIN, UBILATERAL OSTEOARTHRITIS Reason for Visit Diarrhea Left knee pain Degenerative arthritis of left knee Left knee pain Degenerative arthritis of left knee Chief Complaint EORDER INT LABS 3 MO FU LEFT KNEE PAIN LEFT KNEE DIARRHEA/ENTEROGRAPHY left knee SCREENING L KNEE PAIN, UBILATERAL OSTEOARTHRITIS 2 WK FU EORDERS INTERNAL DERANGEMENT OF LEFT KNEE Reason for Visit Diarrhea Left knee pain Degenerative arthritis of left knee Left knee pain Degenerative arthritis of left knee Diarrhea Chief Complaint left knee 2 WK FU Amb Documentation Amb Documentation MURMUR, CLEARANCE FOR EGD E-ORDER Reason for Visit Diarrhea Essential hypertension Cardiac murmur Intermittent palpitations Preoperative cardiovascular examination Pure hypercholesterolemia, unspecified Chief Complaint 2 WK FU Amb Documentation Amb Documentation MURMUR, CLEARANCE FOR EGD E-ORDER LEFT KNEE LEFT KNEE MURMUR LEFT KNEE Reason for Visit Diarrhea Essential hypertension Cardiac murmur Intermittent palpitations Preoperative cardiovascular examination Pure hypercholesterolemia, unspecified Chief Complaint Amb Documentation Amb Documentation MURMUR, CLEARANCE FOR EGD E-ORDER LEFT KNEE LEFT KNEE MURMUR LEFT KNEE Amb Documentation ABD CRAMPS CHEST PRESSURE/PALPITATIONS Reason for Visit Essential hypertensi on Cardiac murmur Intermittent palpitations Preoperative cardiovascular examination Pure hypercholesterolemia, unspecified Chief Complaint Amb Documentation Amb Documentation MURMUR, CLEARANCE FOR EGD E-ORDER LEFT KNEE LEFT KNEE MURMUR LEFT KNEE Amb Documentation ABD CRAMPS CHEST PRESSURE/PALPITATIONS LEFT KNEE Amb Documentation Hospital FU SKIN Reason for Visit Cardiac murmur Essential hypertension Intermittent palpitations Pure hypercholesterolemia, unspecified Essential hypertension Mitral regurgitation Mitral valve prolapse Pure hypercholesterolemia, unspecified SVT (supraventricular tachycardia) Chief Complaint 3 M FU SCREENING Reason for Visit Essential hypertensi on Mitral regurgitation Mitral valve prolapse Pure hypercholesterolemia, unspecified SVT (supraventricular tachycardia) Chief Complaint 6 M FU DIARRHEA Reason for Visit Essential hypertensi on Mitral regurgitation Mitral valve prolapse Pure hypercholesterolemia, unspecified SVT (supraventricular tachycardia) Chief Complaint Admit Date SCREENING June 17, 2024 12:28pm heart valve repair June 17, 2024 12:53pm heart valve repair July 16, 2024 2:15pm heart valve repair July 30, 2024 8: 24am 3 M FU September 23, 2024 10:33am INT LAB ORDER September 23, 2024 10:54am Reason for Visit Admit Date Essential hypertension September 23 10:33am Mitral regurgitation September 23, 2024 10:33am Mitral valve prolapse September 23 10:33am Psoriatic arthritis September 23, 2024 10:33am Pure hypercholesterolemia, unspecified F ebruary 2024 10:33am S/P mitral valve repair September 23, 025 10:33am SVT (supraventricular tachycardia) Febru ya 2024 10:33am Chief Complaint Admit Date 3 M FU September 23, 2024 10:33am INT LAB ORDER September 23, 2024 10:54am EORDER November 25, 2024 12:37p m Chief Complaint Admit Date 3 M FU September 23, 2024 10:33am INT LAB ORDER September 23, 2024 10:54am EORDER November 25, 2024 12:37p m STOOL December 28, 2024 2:40p m Advance Directives Advance Directive Response Recorded Date/ Time Advance Directives No August 4:17am Living Will No May 01 1:22pm Power of Lamp Decorator No May 01 1:22pm Advance Directive Response Recorded Date/ Time Advance Directives No August 4:17am Living Will No April 13, 2022 12:13pm Power of Lamp Decorator No March 12:13pm Advance Directive Response Recorded Date/ Time Advance Directives No August 4:17am Living Will No October 3rd, 202 2 10:46am Power of Lamp Decorator No April 29 10:46am Advance Directive Response Recorded Date/ Time Advance Directives No August 3:17am Living Will No April 29 9:46am Power of Lamp Decorator No April 29 9:46am Advance Directive Response Recorded Date/ Time Name of Medical Power of Lamp Decorator casey chavis band December 25, 2022 12:17am Advance Directives No August 4:17am Living Will Yes December 25, 2022 1 2:17am Power of Lamp Decorator Yes December 25, 2022 12:17am Advance Directive Response Recorded Date/ Time Advance Directives No August 4:17am Living Will Yes December 25, 2022 1 2:17am Power of Lamp Decorator Yes December 25, 2022 12:17am Advance Directive Response Recorded Date/ Time Advance Directives No August 4:17am Living Will No November 20, 2023 3:18am Power of Lamp Decorator No November 19 3:18am Advance Directive Response Recorded Date/ Time Advance Directives on File No Novem 2023 2:05pm Living Will Yes June 17, 024 2:22pm Power of Lamp Decorator Yes June 17, 2024 2:22pm Living Will No November 20, 2023 3:18am Power of Lamp Decorator No November 19 3:18am Advance Directives No August 4:17am Advance Directive Response Recorded Date/ Time Advance Directives No August 4:17am Summary Purpose Chief Complaint follow upfollow up Reason for Referral Specialty Diagnoses / Procedures Referred By Cherelle rodriguez Referred To Contact CT IMAGING Diagnoses Nonrheumatic mitral valve regurgitation Procedures CT CHEST WO IVCON DIAGNOSTIC COMPUTED TOMOGRAPHY THORAX W/O CNTRST Betty Jack APRN.FULLING MACHINE OPERATOR [address] [place] [address] [place] [address] Referral ID Status Reason Start Date Expiration Date Visits Requested Visits Authorized [id number] New Request Auto-Generat ed Referral 02/24/2024 03/25/2025 1 1 Specialty Diagnoses / Procedures Referred By Cherelle rodriguez [facility] Diagnoses Nonrheumatic mitral valve regurgitation Procedures LUNG VOLUMES Betty Jack, DOORKEEPER.FULLING MACHINE OPERATOR [address] [place] [address] Respiratory [place] [phone] Referral ID Status Reason Start Date Expiration Date Visits Requested Visits Authorized [id number] New Request Auto-Generat ed Referral 02/24/2024 03/25/2025 1 1 Specialty Diagnoses / Procedures Referred By Contac t Referred To [facility] Diagnoses Nonrheumatic mitral valve regurgitation Procedures LUNG DIFFUSION CAPACITY (DLCO) DIFFUSING CAPACITY Betty Jack, DOORKEEPER.FULLING MACHINE OPERATOR [address] [place] [address] Respiratory [place] [phone] Referral ID Status Reason Start Date Expiration Date Visits Requested Visits Authorized [id number] New Request Auto-Generat ed Referral 02/24/2024 03/25/2025 1 1 Specialty Diagnoses / Procedures Referred By Contac t Referred To [facility] Diagnoses Nonrheumatic mitral valve regurgitation Procedures SPIROMETRY BASELINE ONLY SPMTRY W/VC EXPIRATORY KARO W/WO MXML VOL VNTJ Betty Jack, DOORKEEPER.FULLING MACHINE OPERATOR [address] [place] [address] [place] [phone] Referral ID Status Reason Start Date Expiration Date Visits Requested Visits Authorized [id number] New Request Auto-Generat ed Referral 02/24/2024 03/25/2025 1 1 Specialty Diagnoses / Procedures Referred By Contac t Referred To Contact CT IMAGING Diagnoses Disorder of artery or arteriole (HCC) Pre-operative cardiovascular examination Mitral valve disorder Procedures CTA CHEST/ABD/PEL (GATED) W IVCON CT ANGIOGRAPHY CHEST W/CONTRAST/NONCONTRAST CT ANGIO ABD&PLVIS CNTRST MTRL W/WO CNTRST Nnamdi Oliver MD [address] [place], [place] [id number] Ct Imaging [place] [address] Referral ID Status Reason Start Date Expiration Date Visits Requested Visits Authorized [id number] New Request Auto-Generat ed Referral 03/10/2024 04/09/2025 1 1 Specialty Diagnoses / Procedures Referred By Contac t Referred To Contact [facility] Diagnoses Disorder of artery or arteriole (HCC) Pre-operative cardiovascular examination Mitral valve disorder Procedures ECHO ECHO TTHRC R-T 2D W/WOM-MODE COMPL SPEC&COLR D Nnamdi Greenwood MD [address] [place] [address] [facility] [place] [address] Referral ID Status Reason Start Date Expiration Date Visits Requested Visits Authorized [id number] New Request Auto-Generat ed Referral 03/10/2024 03/10/2025 1 1 Specialty Diagnoses / Procedures Referred By Contac t Referred To Contact [facility] Diagnoses Disorder of artery or arteriole (HCC) Pre-operative cardiovascular examination Mitral valve disorder Procedures ECG COMPLETE ECG ROUTINE ECG W/LEAST 12 LDS W/I&R Nnamdi Greenwood MD [address] [place] [address] [place] [address] Referral ID Status Reason Start Date Expiration Date Visits Requested Visits Authorized [id number] New Request Auto-Generat ed Referral 03/10/2024 03/10/2025 1 1 Specialty Diagnoses / Procedures Referred By Cherelle t Referred To Contact Cardiac Surg Diagnoses Disorder of artery or arteriole (HCC) Pre-operative cardiovascular examination Mitral valve disorder Procedures CARDIOTHORACIC PREOP EVALUATION OFFICE/OUTPATIENT [facility] 60 MINUTES Nnamdi Greenwood MD [address] [place] [address] Referral ID Status Reason Start Date Expiration Date Visits Requested Visits Authorized [id number] Authorized PCP Requested Referral 03/10/2024 03/10/2025 1 1 Specialty Diagnoses / Procedures Referred By Contac t Referred To Contact Cardiology Diagnoses Disorder of artery or arteriole (HCC) Pre-operative cardiovascular examination Mitral valve disorder Procedures CONSULT TO CARDIOLOGY OFFICE/OUTPATIENT [facility] MDM 60 [place] [address] [place] [id number] Referral ID Status Reason Start Date Expiration Date Visits Requested Visits Authorized [id number] Authorized PCP Requested Referral 03/10/2024 03/10/2025 1 1 Specialty Diagnoses / Procedures Referred By Cherelle rodriguez Referred To Contact [facility] Diagnoses Nonrheumatic mitral valve regurgitation Procedures CARDIOVASCULAR MEDICINE OP FOLLOW UP APPT ORDER Jeyson Hoff MD [address] [place] [address] [facility] [address] [place] [address] Referral ID Status Reason Start Date Expiration Date Visits Requested Visits Authorized [id number] Ref Not Required PCP Requested Referral 04/12/2024 04/12/2025 1 1 Additional Source Comments Goals (unrecognized section and content) Goals may be documented in a n alternate sectionGoals may be documented in an alternate sectionGoals may be documented in an alternate sectionGoals may be documented in an alternate sectionGoals may be documented in an alternate sectionGoals may be documented in an alternate sectionGoals may be documented in an alternate sectionGoals may be documented in an alternate sectionGoals may be documented in an alternate sectionGoals may be documented in an alternate sectionGoals may be documented in an alternate sectionGoals may be documented in an alternate sectionGoals may be documented in an alternate sectionGoals may be documented in an alternate sectionGoals may be documented in an alternate sectionGoals may be documented in an alternate sectionGoals may be documented in an alternate sectionGoals may be documented in an alternate section Care Teams (unrecognized sec tion and content) Team Status: Active Member Role Status Dates Shilpa Rosales TODDLER GUIDE, TODDLER GUIDE-C Family Provider Active Dr. Nathan Guzman , DO Primary Care Provider Active Team Status: Inactive Member Role Status Dates Dr. Nathan Guzman , DO Primary Care Provider, Referrin g Provider Active Dr. Fransisco Brown , Attending Provider Active Team Status: Inactive Member Role Status Dates Dr. Nathan Guzman , DO Primary Care Provider, Referrin g Provider Active Mario Fontanez MD Attending Provider Active Team Status: Inactive Member Role Status Dates Dr. Nathan Guzman , DO Primary Care Provider, Referrin g Provider Active Dr. Malika Samuels MD Attending Provider Active Team Status: Active Member Role Status Dates Dr. Nathan Guzman , DO Primary Care Provider Active Celina Baez Attending Provider Active Team Status: Inactive Member Role Status Dates Dr. Nathan Guzman , DO Primary Care Provider, Attendin g Provider Active Team Status: Inactive Member Role Status Dates Dr. Nathan Guzman DO Primary Care Provider Active Dr. Malika Samuels MD Attending Provider, Referring Pr ovider Active Team Status: Active Member Role Status Dates Dr. Nathan Guzman DO Primary Care Provider Active Dr. Roger Dietz MD Attending Provider Active Team Status: Inactive Member Role Status Dates Dr. Nathan Guzman DO Primary Care Prov ider, Attending Provider, Referring Provider Active Team Status: Active Member Role Status Dates Dr. Nathan Guzman DO Primary Care Provider Active Dr. Roger Dietz MD Attending Provider Active Dr. Malika Samuels MD Referring Provider Active Team Status: Inactive Member Role Status Dates Dr. Nathan Guzman DO Primary Care Provider Active Dr. Florin Bowles MD Attending Provider, Emergency Provider Active Team Status: Inactive Member Role Status Dates Dr. Nathan Guzman DO Primary Care Provider Active Dr. Jimbo Zavaleta , DO Emergency Provider Active Team Status: Inactive Member Role Status Dates Dr. Nathan Guzman DO Primary Care Provider Active Dr. Jimbo Zavaleta , DO Attending Provider, Emergency Pr ovider Active Team Status: Inactive Member Role Status Dates Dr. Nathan Guzman DO Primary Care Provider Active Ayde GOLDSMITH, PA Attending Provider, Referring Pr ovider Active Industrial Equipment Wirer Relationship Specialty Start Date End Date Nathan Guzman DO [address] [place], [place] [phone] PCP - General Family Medicine 01/15/23 Malika Samuels MD [address] [place] [id number] Specialty Property Economist Cardiology 01/13/23 Industrial Equipment Wirer Relationship Specialty Start Date End Date Nathan Guzman DO [address] [place] [address] PCP - General Family Medicine 01/15/23 Malika Samuels MD Specialty Property Economist Cardiology 01/13/23 Industrial Equipment Wirer Relationship Specialty Start Date End Date Nathan Guzman DO [address] [place], [place] [address] PCP - General Family Medicine 01/15/23 Malika Samuels MD Specialty Property Economist Cardiology 01/13/23 Team Status: Inactive Member Role Status Dates Dr. Nathan Guzman DO Primary Care Provider Active NICOLLE NORIEGA Attending Provider, Referring Provider A ctive Industrial Equipment Wirer Relationship Specialty Start Date End Date Nathan Guzman DO [address] [place], [place] [phone] PCP - General Family Medicine 01/15/23 Malika Samuels MD Specialty Property Economist Cardiology 01/13/23 Industrial Equipment Wirer Relationship Specialty Start Date End Date Nathan Guzman DO [address] [place], [place] [phone] PCP - General Family Medicine 01/15/23 Malika Samuels MD Specialty Property Economist Cardiology 01/13/23 Industrial Equipment Wirer Relationship Specialty Start Date End Date Nathan Guzman DO [address] [place], [place] [address] PCP - General Family Medicine 01/15/23 Malika Samuels MD Specialty Property Economist Cardiology 01/13/23 Industrial Equipment Wirer Relationship Specialty Start Date End Date Megan Nathan [place]otoDO [address] [place], [place] [id number] PCP - General Family Medicine 01/15/23 Malika Samuels MD Specialty Property Economist Cardiology 01/13/23 Industrial Equipment Wirer Relationship Specialty Start Date End Date Megan Nathan CotoDO [address] [place], [place] [address] PCP - General Family Medicine 01/15/23 Malika Samuels MD Specialty Property Economist Cardiology 01/13/23 Naomy Thomas MD [address] [place] [address] Cardiology 02/20/24 Rudy Coker DO [address] [place], [place] [address] Internal Medicine 02/20/24 Industrial Equipment Wirer Relationship Specialty Start Date End Date MeganNathan NnamdiDO [address] [place] [address] PCP - General Family Medicine 01/15/23 Malika Samuels MD Specialty Property Economist Cardiology 01/13/23 Naomy Thomas MD [address] [place] [phone] Cardiology 02/20/24 Rudy Coker DO [address] [place] [address] Internal Medicine 02/20/24 Industrial Equipment Wirer Relationship Specialty Start Date End Date Nathan GuzmanDO [address] [place], [place] [address] PCP - General Family Medicine 01/15/23 Malika Samuels MD Specialty Property Economist Cardiology 01/13/23 Naomy Thomas MD [address] [place] [address] (Fax) Cardiology 02/20/24 Rduy Coker DO [address] [place], [place] [phone] Internal Medicine 02/20/24 Industrial Equipment Wirer Relationship Specialty Start Date End Date Nathan GuzmanDO [address] [place] [address] PCP - General Family Medicine 01/15/23 Malika Samuels MD Specialty Property Economist Cardiology 01/13/23 Naomy Thomas MD [address] [place] [phone] Cardiology 02/20/24 Rudy Coker DO [address] [place], [place] [address] Internal Medicine 02/20/24 Industrial Equipment Wirer Relationship Specialty Start Date End Date Nathan GuzmanDO [address] [place], [place] [address] PCP - General Family Medicine 01/15/23 Malika Samuels MD Specialty Property Economist Cardiology 01/13/23 Naomy Thomas MD [address] [place] [address] Cardiology 02/20/24 Rudy Coker DO [address] [place], [place] [id number] Internal Medicine 02/20/24 Nnamdi Greenwood MD [address] [place], [place] [address] Surgeon Cardiac Surg 03/09/24 Industrial Equipment Wirer Relationship Specialty Start Date End Date Megan Nathan CotoDO [address] [place], [place] [address] PCP - General Family Medicine 01/15/23 Malika Samuels MD Specialty Property Economist Cardiology 01/13/23 Naomy Thomas MD [address] [place] [address] [place] [phone] Cardiology 02/20/24 Rudy Coker DO [address] [place], [place] [phone] Internal Medicine 02/20/24 Nnamdi Greenwood MD [address] [place] [address] Surgeon Cardiac Surg 03/09/24 Industrial Equipment Wirer Relationship Specialty Start Date End Date Nathan Guzman DO [address] [place], [place] [address] PCP - General Family Medicine 01/15/23 Malika Samuels MD Specialty Property Economist Cardiology 01/13/23 Naomy Thomas MD [address] [facility] [address] [place] [address] Cardiology 02/20/24 Rudy Coker DO [address] [place], [place] [phone] Internal Medicine 02/20/24 [place] [address] [place] [address] Surgeon Cardiac Surg 03/09/24 Jeyson Hoff MD [address] [place] [address] Primary Staff Physician Cardiology 04/12/24 Industrial Equipment Wirer Relationship Specialty Start Date End Date Nathan Guzman DO [address] [place], [place] [address] PCP - General Family Medicine 01/15/23 Malika Samuels MD Specialty Property Economist Cardiology 01/13/23 Naomy Thomas MD [address] [place] [address] [place] [phone] (Fax) Cardiology 02/20/24 Rudy Coker DO [address] [place], [place] [address] Internal Medicine 02/20/24 Nnamdi Greenwood MD [address] [place] [address] Surgeon Cardiac Surg 03/09/24 Jeyson Hoff MD [address] [place] [address] Primary Staff Physician Cardiology 04/12/24 Industrial Equipment Wirer Relationship Specialty Start Date End Date Nathan Guzman DO [address] [place] [address] PCP - General Family Medicine 01/15/23 Malika Samuels MD Specialty Property Economist Cardiology 01/13/23 Naomy Thomas MD [address] [place] [address] [place] [phone] (Fax) Cardiology 02/20/24 Rudy Coker DO [address] [place], [place] [phone] Internal Medicine 02/20/24 Nnamdi Greenwood MD [address] [place] [address] Surgeon Cardiac Surg 03/09/24 Jeyson Hoff MD [address] [place], [place] [phone] Primary Staff Physician Cardiology 04/12/24 Industrial Equipment Wirer Relationship Specialty Start Date End Date Nathan Guzman DO [address] [place] [address] PCP - General Family Medicine 01/15/23 Malkia Samuels MD Specialty Property Economist Cardiology 01/13/23 Naomy Thomas MD [address] [facility] [address] [place] [address] Cardiology 02/20/24 Rudy Coker DO [address] [facility] [address] [id number] Internal Medicine 02/20/24 Nnamdi Greenwood MD [address] [place] [address] Surgeon Cardiac Surg 03/09/24 Jeyson Hoff MD [address] [place] [address] Primary Staff Physician Cardiology 04/12/24 Industrial Equipment Wirer Relationship Specialty Start Date End Date Nathan Guzman DO [address] [place] [address] PCP - General Family Medicine 01/15/23 Malika Samuels MD Specialty Property Economist Cardiology 01/13/23 Naomy Thomas MD [address] [place] [address] [place] [phone] (Fax) Cardiology 02/20/24 Rudy Coker DO [address] [facility] [address] [place] [address] [place] [phone] Internal Medicine 02/20/24 Nnamdi Greenwood MD [address] [place] [address] Surgeon Cardiac Surg 03/09/24 Jeyson Hoff MD [address] [place] [phone] Primary Staff Physician Cardiology 04/12/24 Industrial Equipment Wirer Relationship Specialty Start Date End Date Nathan Guzman DO [address] [place] [phone] PCP - General Family Medicine 01/15/23 Malika Samuels MD Specialty Property Economist Cardiology 01/13/23 Naomy Thomas MD [address] [place] [address] [place] [phone] (Fax) Cardiology 02/20/24 Rudy Coker DO [address] [facility] [address] [place] [address] [place], [place] 258713 Internal Medicine 02/20/24 Nnamdi Greenwood MD [address] [place] [address] Surgeon Cardiac Surg 03/09/24 Jeyson Hoff MD [address] [place] [address] Primary Staff Physician Cardiology 04/12/24 Industrial Equipment Wirer Relationship Specialty Start Date End Date Nathan Guzman DO [address] [place] [address] PCP - General Family Medicine 01/15/23 Malika Samuels MD Specialty Property Economist Cardiology 01/13/23 Naomy Thomas MD [address] [facility] [address] [place] [address] Cardiology 02/20/24 Rudy Coker DO [address] [facility] [address] [id number] Internal Medicine 02/20/24 Nnamdi Greenwood MD [address] [place] [address] Surgeon Cardiac Surg 03/09/24 Jeyson Hoff MD [address] [place] [address] Primary Staff Physician Cardiology 04/12/24 Industrial Equipment Wirer Relationship Specialty Start Date End Date Nathan Guzman DO [address] [place] [address] PCP - General Family Medicine 01/15/23 Malika Samuels MD Specialty Property Economist Cardiology 01/13/23 Naomy Thomas MD [address] [place] [address] [place] [phone] (Fax) Cardiology 02/20/24 Rduy Coker DO [address] [place] [address] [place], [place] 29[address]23 Internal Medicine 02/20/24 Nnamdi Greenwood MD [address] [place] [phone] Surgeon Cardiac Surg 03/09/24 Jeyson Hoff MD [address] [place] [phone] Primary Staff Physician Cardiology 04/12/24 Industrial Equipment Wirer Relationship Specialty Start Date End Date Nathan Guzman DO [address] [place] [address] PCP - General Family Medicine 01/15/23 Malika Samuels MD Specialty Property Economist Cardiology 01/13/23 Naomy Thomas MD [address] [place] [address] [place] [phone] (Fax) Cardiology 02/20/24 Rudy Coker DO [address] [place] [address] [place], [place] [phone] Internal Medicine 02/20/24 Nnamdi Greenwood MD [address] [place] [phone] Surgeon Cardiac Surg 03/09/24 Jeyson Hoff MD [address] [place] [address] Primary Staff Physician Cardiology 04/12/24 Industrial Equipment Wirer Relationship Specialty Start Date End Date Nathan Guzman DO [address] [place] [address] PCP - General Family Medicine 01/15/23 Malika Samuels MD Specialty Property Economist Cardiology 01/13/23 Naomy Thomas MD [address] [facility] [address] [place] [address] Cardiology 02/20/24 Rudy Coker DO [address] [facility] [address] [phone] Internal Medicine 02/20/24 Nnamdi Greenwood MD [address] [place] [address] Surgeon Cardiac Surg 03/09/24 Jeyson Hoff MD [address] [place] [address] Primary Staff Physician Cardiology 04/12/24 Industrial Equipment Wirer Relationship Specialty Start Date End Date Nathan Guzman DO [address] [place], [place] [address] PCP - General Family Medicine 01/15/23 Malika Samuels MD Specialty Property Economist Cardiology 01/13/23 Naomy Thomas MD [address] [place] [address] [place] [phone] Cardiology 02/20/24 Rudy Cokre DO [address] [place] [address] [place] [address] [phone] Internal Medicine 02/20/24 Nnamdi Greenwood MD [address] [place] [address] Surgeon Cardiac Surg 03/09/24 Jeyson Hoff MD [facility] [place] [phone] Primary Staff Physician Cardiology 04/12/24 Industrial Equipment Wirer Relationship Specialty Start Date End Date Nathan Guzman DO [address] [place] [id number] PCP - General Family Medicine 01/15/23 Malika Samuels MD Specialty Property Economist Cardiology 01/13/23 Naomy Thomas MD [address] [place] [address] [place] [phone] (Fax) Cardiology 02/20/24 Rudy Coker DO [address] [facility] [place] [address] [place], [place] [phone] Internal Medicine 02/20/24 Nnamdi Greenwood MD [address] [place] [address] Surgeon Cardiac Surg 03/09/24 Jeyson Hoff MD [address] [place] [address] Primary Staff Physician Cardiology 04/12/24 Industrial Equipment Wirer Relationship Specialty Start Date End Date Nathan Guzman DO [address] [place] [address] PCP - General Family Medicine 01/15/23 Malika Samuels MD Specialty Property Economist Cardiology 01/13/23 Naomy Thomas MD [address] [facility] [address] [place] [address] Cardiology 02/20/24 Rudy Coker DO [address] [facility] [address] [id number] Internal Medicine 02/20/24 Nnamdi Greenwood MD [address] [place] [address] Surgeon Cardiac Surg 03/09/24 Jeyson Hoff MD [address] [place], [place] [phone] Primary Staff Physician Cardiology 04/12/24 Industrial Equipment Wirer Relationship Specialty Start Date End Date Nathan Guzman DO [address] [place], [place] [phone] PCP - General Family Medicine 01/15/23 Malika Samuels MD Specialty Property Economist Cardiology 01/13/23 Naomy Thomas MD [address] [place] [address] [place] [phone] Cardiology 02/20/24 Rudy Coker DO [address] [facility] [place] [address] [place], [place] 382853 Internal Medicine 02/20/24 Nnamdi Greenwood MD [address] [place], [place] [phone] Surgeon Cardiac Surg 03/09/24 Jeyson Hoff MD [address] [place] [address] Primary Staff Physician Cardiology 04/12/24 Industrial Equipment Wirer Relationship Specialty Start Date End Date Nathan Guzman DO PCP - General 01/06/23 Industrial Equipment Wirer Relationship Specialty Start Date End Date Nathan Guzman DO [address] [facility] [place] [address] PCP - General Family Medicine 01/15/23 Malika Samuels MD Specialty Property Economist Cardiology 01/13/23 Naomy Thomas MD [address] [place] [address] [place] [phone] (Fax) Cardiology 02/20/24 Rudy Coker DO [address] [facility] [place] [address] [place] [address] Internal Medicine 02/20/24 Nnamdi Greenwood MD [address] [place] [address] Surgeon Cardiac Surg 03/09/24 Jeyson Hoff MD [address] [place] [address] Primary Staff Physician Cardiology 04/12/24 Team Status: Inactive Member Role Status Dates Dr. Nathan Guzman DO Primary Care Provider Active Start: June 17, 2024 End: June 17, 2024 Dr. Nathan Guzman DO Attending Provider Active Start: June 17, 2024 End: June 17, 2024 Dr. Nathan Guzman DO Referring Provider Active Start: June 17, 2024 End: June 17, 2024 Team Status: Inactive Member Role Status Dates Dr. Nathan Guzman DO Primary Care Provider Active Start: June 17, 2024 End: June 17, 2024 Dr. Malika Samuels MD Attending Provider Active Start: June 17, 2024 End: June 17, 2024 Dr. Malika Samuels MD Referring Provider Active Start: June 17, 2024 End: June 17, 2024 Team Status: Inactive Member Role Status Dates Dr. Nathan Guzman DO Primary Care Provider Active Start: July 16, 2024 End: July 27, 2024 Dr. Malika Samuels MD Attending Provider Active Start: July 16, 2024 End: July 27, 2024 Dr. Malika Samuels MD Referring Provider Active Start: July 16, 2024 End: July 27, 2024 Team Status: Inactive Member Role Status Dates Dr. Nathan Guzman DO Primary Care Provider Active Start: July 30, 2024 End: August 27, 2024 Dr. Malika Samuels MD Attending Provider Active Start: July 30, 2024 End: August 27, 2024 Dr. Malika Samuels MD Referring Provider Active Start: July 30, 2024 End: August 27, 2024 Team Status: Inactive Member Role Status Dates Dr. Nathan Guzman DO Primary Care Provider Active Start: August 18, 2024 End: August 18, 2024 Dr. Nathan Guzman DO Attending Provider Active Start: August 18, 2024 End: August 18, 2024 Team Status: Inactive Member Role Status Dates Dr. Nathan Guzman DO Primary Care Provider Active Start: September 23, 2024 End: September 23, 2024 Dr. Nathan Guzman DO Referring Provider Active Start: September 23, 2024 End: September 23, 2024 Dr. Malika Samuels MD Attending Provider Active Start: September 23, 2024 End: September 23, 2024 Team Status: Inactive Member Role Status Dates Dr. Nathan Guzman DO Primary Care Provider Active Start: September 23, 2024 End: September 23, 2024 Dr. Malika Samuels MD Attending Provider Active Start: September 23, 2024 End: September 23, 2024 Dr. Malika Samuels MD Referring Provider Active Start: September 23, 2024 End: September 23, 2024 Team Status: Inactive Member Role Status Dates Dr. Nathan Guzman DO Primary Care Provider Active Start: November 25, 2024 End: November 25, 2024 Jeyson Galvan TODDLER GUIDE, TODDLER GUIDE-C Attending Provider Active S tart: November 25, 2024 End: November 25, 2024 Jeyson Galvan TODDLER GUIDE, TODDLER GUIDE-C Referring Provider Active S tart: November 25, 2024 End: November 25, 2024 Team Status: Active Member Role Status Dates Dr. Nathan Guzman DO Primary Care Provider Active Team Status: Inactive Member Role Status Dates Dr. Nathan Guzman DO Primary Care Provider Active Start: December 28, 2024 End: December 28, 2024 Dr. Nathan Guzman DO Attending Provider Active Start: December 28, 2024 End: December 28, 2024 Dr. Nathan Guzman DO Referring Provider Active Start: December 28, 2024 End: December 28, 2024 INFORMATION SOURCE (unrecogn ized section and content) DATE CREATED AUTHOR 01/17/2023 [facility] DATE CREATED AUTHOR AUTHOR'S ORGANIZ ATION 06/11/2023 [facility] ([place] DATE CREATED AUTHOR AUTHOR'S ORGANIZ ATION 08/31/2023 [facility] DATE CREATED AUTHOR AUTHOR'S ORGANIZ ATION 04/17/2024 [facility] DATE CREATED AUTHOR AUTHOR'S ORGANIZ ATION 06/16/2024 [facility] DATE CREATED AUTHOR AUTHOR'S ORGANIZ ATION 10/23/2024 [facility] DATE CREATED AUTHOR AUTHOR'S ORGANIZ ATION 12/31/2024 [facility] Source Comments (unrecognize d section and content) In the event this informatio n is protected by the Federal Confidentiality of Alcohol and Drug Abuse Patient Records regulations: The Federal rules restrict any use of the information to criminally investigate or prosecute any alcohol or drug abuse patient.[facility] Hospital[facility] the event this information is protected by the Federal Confidentiality of Alcohol and Drug Abuse Patient Records regulations: The Federal rules restrict any use of the information to criminally investigate or prosecute any alcohol or drug abuse patient.[facility] HospitalIn the event this information is protected by the Federal Confidentiality of Alcohol and Drug Abuse Patient Records regulations: The Federal rules restrict any use of the information to criminally investigate or prosecute any alcohol or drug abuse patient.[facility] HospitalIn the event this information is protected by the Federal Confidentiality of Alcohol and Drug Abuse Patient Records regulations: The Federal rules restrict any use of the information to criminally investigate or prosecute any alcohol or drug abuse patient.[facility] HospitalIn the event this information is protected by the Federal Confidentiality of Alcohol and Drug Abuse Patient Records regulations: The Federal rules restrict any use of the information to criminally investigate or prosecute any alcohol or drug abuse patient.[facility] HospitalIn the event this information is protected by the Federal Confidentiality of Alcohol and Drug Abuse Patient Records regulations: The Federal rules restrict any use of the information to criminally investigate or prosecute any alcohol or drug abuse patient.[facility] HospitalIn the event this information is protected by the Federal Confidentiality of Alcohol and Drug Abuse Patient Records regulations: The Federal rules restrict any use of the information to criminally investigate or prosecute any alcohol or drug abuse patient.[facility] HospitalIn the event this information is protected by the Federal Confidentiality of Alcohol and Drug Abuse Patient Records regulations: The Federal rules restrict any use of the information to criminally investigate or prosecute any alcohol or drug abuse patient.[facility] HospitalIn the event this information is protected by the Federal Confidentiality of Alcohol and Drug Abuse Patient Records regulations: The Federal rules restrict any use of the information to criminally investigate or prosecute any alcohol or drug abuse patient.[facility] HospitalIn the event this information is protected by the Federal Confidentiality of Alcohol and Drug Abuse Patient Records regulations: The Federal rules restrict any use of the information to criminally investigate or prosecute any alcohol or drug abuse patient.[facility] HospitalIn the event this information is protected by the Federal Confidentiality of Alcohol and Drug Abuse Patient Records regulations: The Federal rules restrict any use of the information to criminally investigate or prosecute any alcohol or drug abuse patient.[facility] HospitalIn the event this information is protected by the Federal Confidentiality of Alcohol and Drug Abuse Patient Records regulations: The Federal rules restrict any use of the information to criminally investigate or prosecute any alcohol or drug abuse patient.[facility] HospitalIn the event this information is protected by the Federal Confidentiality of Alcohol and Drug Abuse Patient Records regulations: The Federal rules restrict any use of the information to criminally investigate or prosecute any alcohol or drug abuse patient.[facility] HospitalIn the event this information is protected by the Federal Confidentiality of Alcohol and Drug Abuse Patient Records regulations: The Federal rules restrict any use of the information to criminally investigate or prosecute any alcohol or drug abuse patient.[facility] HospitalIn the event this information is protected by the Federal Confidentiality of Alcohol and Drug Abuse Patient Records regulations: The Federal rules restrict any use of the information to criminally investigate or prosecute any alcohol or drug abuse patient.[facility] HospitalIn the event this information is protected by the Federal Confidentiality of Alcohol and Drug Abuse Patient Records regulations: The Federal rules restrict any use of the information to criminally investigate or prosecute any alcohol or drug abuse patient.[facility] HospitalIn the event this information is protected by the Federal Confidentiality of Alcohol and Drug Abuse Patient Records regulations: The Federal rules restrict any use of the information to criminally investigate or prosecute any alcohol or drug abuse patient.[facility] HospitalIn the event this information is protected by the Federal Confidentiality of Alcohol and Drug Abuse Patient Records regulations: The Federal rules restrict any use of the information to criminally investigate or prosecute any alcohol or drug abuse patient.[facility] HospitalIn the event this information is protected by the Federal Confidentiality of Alcohol and Drug Abuse Patient Records regulations: The Federal rules restrict any use of the information to criminally investigate or prosecute any alcohol or drug abuse patient.[facility] HospitalIn the event this information is protected by the Federal Confidentiality of Alcohol and Drug Abuse Patient Records regulations: The Federal rules restrict any use of the information to criminally investigate or prosecute any alcohol or drug abuse patient.[facility] HospitalIn the event this information is protected by the Federal Confidentiality of Alcohol and Drug Abuse Patient Records regulations: The Federal rules restrict any use of the information to criminally investigate or prosecute any alcohol or drug abuse patient.[facility] HospitalIn the event this information is protected by the Federal Confidentiality of Alcohol and Drug Abuse Patient Records regulations: The Federal rules restrict any use of the information to criminally investigate or prosecute any alcohol or drug abuse patient.[facility] HospitalIn the event this information is protected by the Federal Confidentiality of Alcohol and Drug Abuse Patient Records regulations: The Federal rules restrict any use of the information to criminally investigate or prosecute any alcohol or drug abuse patient.[facility] HospitalIn the event this information is protected by the Federal Confidentiality of Alcohol and Drug Abuse Patient Records regulations: The Federal rules restrict any use of the information to criminally investigate or prosecute any alcohol or drug abuse patient.[facility] HospitalIn the event this information is protected by the Federal Confidentiality of Alcohol and Drug Abuse Patient Records regulations: The Federal rules restrict any use of the information to criminally investigate or prosecute any alcohol or drug abuse patient.[facility] HospitalIn the event this information is protected by the Federal Confidentiality of Alcohol and Drug Abuse Patient Records regulations: The Federal rules restrict any use of the information to criminally investigate or prosecute any alcohol or drug abuse patient.[facility] HospitalIn the event this information is protected by the Federal Confidentiality of Alcohol and Drug Abuse Patient Records regulations: The Federal rules restrict any use of the information to criminally investigate or prosecute any alcohol or drug abuse patient.[facility] HospitalIn the event this information is protected by the Federal Confidentiality of Alcohol and Drug Abuse Patient Records regulations: The Federal rules restrict any use of the information to criminally investigate or prosecute any alcohol or drug abuse patient.[facility] HospitalIn the event this information is protected by the Federal Confidentiality of Alcohol and Drug Abuse Patient Records regulations: The Federal rules restrict any use of the information to criminally investigate or prosecute any alcohol or drug abuse patient.[facility] HospitalIn the event this information is protected by the Federal Confidentiality of Alcohol and Drug Abuse Patient Records regulations: The Federal rules restrict any use of the information to criminally investigate or prosecute any alcohol or drug abuse patient.[facility] HospitalIn the event this information is protected by the Federal Confidentiality of Alcohol and Drug Abuse Patient Records regulations: The Federal rules restrict any use of the information to criminally investigate or prosecute any alcohol or drug abuse patient.[facility] HospitalIn the event this information is protected by the Federal Confidentiality of Alcohol and Drug Abuse Patient Records regulations: The Federal rules restrict any use of the information to criminally investigate or prosecute any alcohol or drug abuse patient.[facility] HospitalIn the event this information is protected by the Federal Confidentiality of Alcohol and Drug Abuse Patient Records regulations: The Federal rules restrict any use of the information to criminally investigate or prosecute any alcohol or drug abuse patient.[facility] HospitalIn the event this information is protected by the Federal Confidentiality of Alcohol and Drug Abuse Patient Records regulations: The Federal rules restrict any use of the information to criminally investigate or prosecute any alcohol or drug abuse patient.[facility] Reason for Visit (unrecogniz ed section and content) Reason Comments New Patient Evaluation SVT Specialty Diagnoses / Procedures Referred By Contac t Referred To Contact Cardiology / CARDIOLOGY Diagnoses Ref from Dr. Lima/SVT possible ablation Spoke to Dr. 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 For Procedures Reason Comments Cardiology Follow Up Follow up for pre o p clearance Reason Comments Results Reason Comments Consult FAXED REFERRAL Reason Comments Patient Update Reason Comments New Patient Consult Referral Jeyson cruz NP Reason Comments Future Appointment Dental Clearance - Open Heart Surgery Re ceived 02/27/24 Reason Comments Insurance Inquiry Reason Comments Referral Information Pre-Op [facility]O Consult Cardiac Preop Checklist Specialty Diagnoses / Procedures Referred By Contact Referred To Contact Cardiology / CARDIOVASCULAR MEDICINE Diagnoses Disorder of arteries and arterioles, unspecified Encounter for preprocedural cardiovascular examination Rheumatic mitral valve disease, unspecified I77.9 Z01.810 I05.9 [facility] 04/14/24 DR. LYONS Procedures OFFICE/OUTPATIENT NEW MODERATE MDM 45 MINUTES NEW PRE OP Nnamdi Greenwood MD [address] [place] [address] Jeyson Hoff MD [address] [place] [address] Referral ID Status Reason Start Date Expiration Date Visits Re quested Visits Authorized [id number] Closed 04/12/2024 07/27/2024 1 1 Reason Comments Patient Education Specialty Diagnoses / Procedures Referred By Contact Referred To Contact Anesthesiology / CARDIAC SURGERY Diagnoses Disorder of arteries and arterioles, unspecified Encounter for preprocedural cardiovascular examination Rheumatic mitral valve disease, unspecified I77.9 Z01.810 I05.9 [facility] 04/14/24 DR. LYONS Procedures OFFICE/OUTPATIENT NEW MODERATE MDM 45 MINUTES PRE OP Nnamdi Greenwood MD [address] [place] [phone] [facility] [address] [place] [address] Referral ID Status Reason Start Date Expiration Date Visits Re quested Visits Authorized [id number] Closed 04/13/2024 07/27/2024 1 1 Specialty Diagnoses / Procedures Referred By Contac t Referred To Contact Cardiac Surg / CARDIAC SURGERY Diagnoses Disorder of arteries and arterioles, unspecified Encounter for preprocedural cardiovascular examination Rheumatic mitral valve disease, unspecified I77.9 Z01.810 I05.9 [facility] 04/14/24 DR. LYONS Procedures OFFICE/OUTPATIENT ESTABLISHED MOD MDM 30 MIN [place] [address] [place] [address] Referral ID Status Reason Start Date Expiration Date Visits Re quested Visits Authorized [id number] Closed 04/13/2024 07/27/2024 1 1 Reason Comments [facility] J1 Specialty Diagnoses / Procedures Referred By Contac t Referred To Contact Radiology / [facility] J Diagnoses Disorder of arteries and arterioles, unspecified Encounter for preprocedural cardiovascular examination Rheumatic mitral valve disease, unspecified I77.9 Z01.810 I05.9 [facility] 04/14/24 DR. LYONS Procedures RADIOLOGIC EXAM CHEST 2 VIEWS XR CHEST Nnamdi Greenwood MD [address] [id number] [address] [facility] [address] [facility] [address] [id number] Referral ID Status Reason Start Date Expiration Date Visits Re quested Visits Authorized [id number] Closed 04/12/2024 07/27/2024 [address] Specialty Diagnoses / Procedures Referred By Contac t Referred To Contact CT IMAGING Diagnoses Disorder of artery or arteriole (HCC) Pre-operative cardiovascular examination Mitral valve disorder Procedures CTA CHEST/ABD/PEL (GATED) W IVCON CT ANGIOGRAPHY CHEST W/CONTRAST/NONCONTRAST CT ANGIO ABD&PLVIS CNTRST MTRL W/WO CNTRST IMGES Nnamdi Greenwood MD [address] [place], [place] [id number] Ct [facility] [place] [id number] Referral ID Status Reason Start Date Expiration Date Visits Requested Visits Authorized [id number] Authorized Auto-Generat ed Referral 03/22/2024 05/06/2024 2 2 Reason Comments Follow Up Phone Call All clear Reason Comments Post Dc Program Call - Needs Attn Reason Comments Returning Patient's Call Reason Comments Post Dc Program Call - Fyi Specialty Diagnoses / Procedures Referred By Cherelle rodriguez Referred To Contact Radiology / [facility] [place] [facility] Diagnoses Surgery follow-up Surgery follow-up Procedures RADIOLOGIC EXAM CHEST 2 VIEWS XR CHEST Nnamdi Greenwood MD [address] [place] [address] [address] [place] [address] Referral ID Status Reason Start Date Expiration Date Visits Re quested Visits Authorized [id number] Closed 04/21/2024 07/27/2024 1 1 Specialty Diagnoses / Procedures Referred By Cherelle rodriguez Referred To Contact Cardiovascular Surgery / CARDIAC SURGERY Diagnoses Hospital discharge follow-up Hospital Discharge [id number] Procedures OFFICE/OUTPATIENT ESTABLISHED MOD MDM 30 MIN POST OP 1ST VISIT Silvia Ford, DOORKEEPER.FULLING MACHINE OPERATOR [address] [place] [address] Sam Lerma, DOORKEEPER.FULLING MACHINE OPERATOR [address] [id number] Referral ID Status Reason Start Date Expiration Date Visits Re quested Visits Authorized [id number] Closed 04/21/2024 07/27/2024 1 1 Reason Comments Patient Question Reason Comments Electronic Communication Reason Comments Follow-up FOR RECORDS PERTAINING TO PATIENTS WHO ARE OR HAVE BEEN ENROLLED IN A CHEMICAL DEPENDENCY/SUBSTANCEABUSE PROGRAM, SOME INFORMATION MAY BE OMITTED. This clinical summary was aggregated from multiple sources. Caution should be exercised in using it in the provision of clinical care. This summary normalizes information from multiple sources, and as a consequence, information in this document may materially change the coding, format and clinical context of patient data. In addition, data may be omitted in some cases. CLINICAL DECISIONS SHOULD BE BASED ON THE PRIMARY CLINICAL RECORDS. [facility] provides no warranty or guarantee of the accuracy or completeness of information in this document.
[2025-01-02 16:13] VITALS: BP 133/94; PULSE 60; RESP 16; TEMP 36.7; O2SAT 99
[2025-01-02 16:31] LABS: ALB/GLOB Ratio 1.2 RATIO (0.9-2.4); AST(SGOT) 26 U/L (<=31); Alanine Aminotransfer ALT/SGPT 23 U/L (<=34); Alkaline Phosphatase 78 U/L (35-104); Anion Gap 13 (5-15); BUN 11 mg/dL (4-19); Calcium,Total 9.1 mg/dL (7.6-11.0); Carbon Dioxide 20.6 mmol/L (21.0-32.0); Chloride 106 mmol/L (98-108); Creatinine, Serum 0.79 mg/dL (0.70-1.20); EST Glomerular Filtration Rate 88 (>60); Globulin 3.4 g/dL (2.2-4.2); Glucose 88 mg/dL (70-99); Lipase 27 U/L (13-75); Potassium 3.4 mmol/L (3.3-5.1); Protein, Total 7.3 g/dL (5.9-8.4); Sodium Level 139 mmol/L (133-145)
[2025-01-02] MEDS: Hyoscyamine Sulfate 0.125 MG Tablet 0.25 MG PO (16:38)
[2025-01-02 17:15] VITALS: BP 134/91; PULSE 62; RESP 16; O2SAT 99
== END 2025-01-02 17:16 | disposition home or self-care (01) ==
PROVIDERS: Emergency Provider Emergency Medicine; PCP Family Medicine; Visit Provider Emergency Medicine
DX: R14.0 Abdominal distension (gaseous) (principal); K52.9 Noninfective gastroenteritis and colitis, unspecified; I10 Essential (primary) hypertension; E78.00 Pure hypercholesterolemia, unspecified; Z87.891 Personal history of nicotine dependence; K21.9 Gastro-esophageal reflux disease without esophagitis; R19.8 Other specified symptoms and signs involving the digestive system and abdomen
CPT/HCPCS: 80053; 83690; 85025; 96361; 96374; 96375; 99284; A4216

== ENCOUNTER → 2025-01-04 | Outpatient (CLI) | payer OTHER, SELFPAY ==
--- NOTE | 2025-01-04 16:08 | CT_ITS ---
PROCEDURE: ABDOMEN/PELVIS WITH CONTRAST 01/04/2025 REASON FOR EXAM: INFLAMMATORY DIARRHEA TECHNIQUE: Abdomen and pelvis CT with intravenous contrast. Coronal and Sagittal reconstruction series were provided. PATIENT PREPARATION: Per protocol ORAL CONTRAST TYPE: Patient ingested oral contrast. CONTRAST: Isovue-350 VOLUME: 100 mL One or more dose reduction techniques were used (e.g., Automated exposure control, adjustment of the mA and/or kV according to patient size, use of iterative reconstruction technique. RADIATION DOSE SUMMARY: CTDlvol: 17.44 mGy DLP: 960 mGycm COMPARISON: CT scan on 04/19/2022. FINDINGS: Mild diffuse thickening of the sigmoid colon. Underdistention, spasm versus mild colitis. Prior cholecystectomy. Mild hepatic steatosis. Small sliding hiatal hernia. Diffuse thickening of the stomach, probably gastritis. Prior hysterectomy. Mild diffuse spondylosis. Chronic Schmorl's node formation in the superior endplate of L2. The visualized lung bases are unremarkable. Normal liver. Normal extrahepatic biliary system. Normal spleen. Normal pancreas. Normal bilateral adrenal glands. Normal size of the right kidney. There is no right renal mass. There are no right renal calculi. There is no right hydronephrosis. Normal visualized right ureter. Normal size of the left kidney. There is no left renal mass. There are no left renal calculi. There is no left hydronephrosis. Normal visualized left ureter. Normal small intestine. The appendix is not visualized. There is no demonstrated peritoneal fluid. Normal abdominal aorta. Normal inferior vena cava. Normal retroperitoneum. Normal urinary bladder. There is no pelvic mass lesion or lymphadenopathy. There is no pelvic fluid. Normal abdominal wall. CT/Abdomen/Pelvis WITH Contrast IMPRESSION: Mild diffuse thickening of the sigmoid colon. Underdistention, spasm versus mil d colitis. Prior cholecystectomy. Mild hepatic steatosis. Small sliding hiatal hernia. Diffuse thickening of the stomach, probably gastritis. Prior hysterectomy. Mild diffuse spondylosis. Chronic Schmorl's node formation in the superior endplate of L2. Reading Location: [place] [address]
== END | disposition home or self-care (01) ==
LOC: CT 15:55
PROVIDERS: PCP Family Medicine; Referring Provider Family Medicine; Visit Provider Family Medicine
DX: K52.9 Noninfective gastroenteritis and colitis, unspecified (principal)
CPT/HCPCS: 74177; Q9967

== ENCOUNTER → 2025-03-08 | Outpatient (CLI) | payer OTHER, SELFPAY ==
[2025-03-08 13:49] LABS: AST(SGOT) 27 U/L (<=31); Alanine Aminotransfer ALT/SGPT 25 U/L (<=34); Albumin, Serum 4.1 g/dL (3.5-5.0); Alkaline Phosphatase 86 U/L (35-104); Bilirubin, Direct 0.14 mg/dL (0.00-0.30); Cholesterol 250 mg/dL (<=200); Globulin 3.7 g/dL (2.2-4.2); Low Density Lipoprotein Calc. 154 mg/dL; Triglycerides 136 mg/dL; Very Low Density Lipoprotein 27 mg/dL (5-40); cholesterol:hdl ratio screen 3.61
--- OUTSIDE RECORDS SUMMARY | 2025-03-08 20:43 | XMS RPT_ITS | CCD ---
Author Organization [facility] Care Team Providers Care Manager Php Name Role Phone Shilpa Rosales E Unavailable Lc Afsaneh Unavailable Betty Garner Unavailable Justin Macias Unavailable Summer Mejia Unavailable Unavailab Janet Dixon Unavailable Unavailable Slarb, Cally Unavailable Unavailable Unavailable Unavailable Andrew Baig Unavailable Unavailable Adelaide Alvarenga Unavailable Unavailable Andrew Stewart Unavailable Unavailable Shilpa Rosales CNP Unavailable Lc Afsaneh Unavailable Betty Garner Unavailable Justin Macias Unavailable Summer Mejia Unavailable Unavailab Andrew Oliveira LPN Unavailable Unavailable Colette MCGRATH Adelaide Unavailable Unavailable Slarb RAMILA, Cally Unavailable Unavailable Unavailable Unavailable Shilpa Rosales Unavailable Ciesa EMPLOYEE BENEFITS COORDINATOR, EMPLOYEE BENEFITS COORDINATOR-C Shilpa Primary Care Provider Ciesa EMPLOYEE BENEFITS COORDINATOR, EMPLOYEE BENEFITS COORDINATOR-C [facility] Referring Provider [phone] AGUS Roman Attending Provider [phone] Dr. Roger Dietz Attending Provider [phone] AGUS Roman Referring Provider [phone] Friend, Dr. Moody Attending Provider Ciesa EMPLOYEE BENEFITS COORDINATOR, EMPLOYEE BENEFITS COORDINATOR-C Shilpa Primary Care Provider Ciesa EMPLOYEE BENEFITS COORDINATOR, EMPLOYEE BENEFITS COORDINATOR-C Shilpa Referring Provider [phone] Dr. Nathan Guzman Primary Care Provider [phone] Dr. Nathan Guzman Referring Provider Krysta EMPLOYEE BENEFITS COORDINATOR, EMPLOYEE BENEFITS COORDINATOR-C Le Peñaloza Attending Provider [phone] AGUS Guthrie Attending Provider Dr. Fransisco Brown Other Provider [phone] Nathan Guzman Primary Care Provider [phone] Dr. Nathan Guzman Referring Provider Krysta EMPLOYEE BENEFITS COORDINATOR, EMPLOYEE BENEFITS COORDINATOR-C Le Peñaloza Attending Provider [phone] AGUS Guthrie Attending Provider [phone] Friend, Dr. Moody Attending Provider [phone] Kevin, Dr. Moody Other Provider [phone] Nathan Guzman Primary Care Provider [phone] Dr. Nathan Guzman Referring Provider MD Mario Fontanez Attending Provider [phone] Dr. Fransisco Brown Attending Provider [phone] Celina Baez Attending Provider Unavailable Dr. Malika Samuels Attending Provider [phone] Dr. Nathan Guzman Primary Care Provider [phone] Dr. Nathan Guzman Referring Provider MD Mario Fontanez Attending Provider [phone] Dr. Roger Dietz Attending Provider [phone] Nathan Guzman Primary Care Provider [phone] Dr. Nathan Guzman Referring Provider Dr. Malika Samuels Referring Provider Nathan Guzman Unavailable Unavailable Unavailable DO RUDY COKER Attending Dr. Nathan Bess Primary Care UnavailDr. Nathan Kathleen Referring Unavaila ble DO RUDY COKER Attending Raine Guzman, Dr. Nathan David Primary Care Unavaila gallo Samuels MD, Malika Unavailable Megan LUIS, Nathan Coto Primary Care Provider Arvind GRAHAM, Malika Unavailable Dr. Nathan Guzman Primary Care Provider Dr. Nathan Guzman Referring Provider Dr. Malika Samuels Attending Provider LUIS GRAHAM, CHA Coto Attending Unavailable MEGAN LUIS, DR NATHAN Coto Primary Care Unavailab le NATHAN GUZMAN A Primary Care Unavailable Dr. Nathan Guzman Primary Care Provider Dr. Nathan Guzman Referring Provider Dr. Malika Samuels Attending Provider Megan LUIS, Nathan Coto Primary Care Provider Madonna GRAHAM, Naomy Coto Unavailable Muoh DO, Rudy Unavailable Timo GRAHAM, Nnamdi Costa Unavailable Luis Eduardo GRAHAM, Jeyson Khalil Unavailable [phone] DARIEN CHANDLER Admitting Unavailable DARIEN CHANDLER Attending Unavailable MEGAN, NATHAN A Primary Care Unavailable TROY BYRD Attending Unavailable MEGAN, NATHAN A Primary Care Unavailable MAULIK MITCHELL Attending Unavailable JEYSON GALVAN Referring Unavailable NATHAN GUZMAN A Primary Care Unavailable Megan LUIS, Nathan Coto Primary Care Provider MUOH, RUDY H Attending Unavailable MEGANNATHAN PEOPLES A Primary Care Unavailable MUOH, RUDY H Attending Unavailable NATHAN GUZMAN A Primary Care Unavailable Dr. Nathan Guzman DO Primary Care Provider Dr. Nathan Guzman DO Attending Provider Dr. Nathan Guzman DO Referring Provider Arvind GRAHAM, Dr. Daly Attending Provider Arvind GRAHAM, Dr. Daly Referring Provider GILLINOV, A IGOR Referring Unavailable [...] Unavailable MEGAN, NATHAN A Primary Care Unavailable SLEIK, DARIEN MONTIEL Referring Unavailable MEGAN, NATHAN A Primary Care [...] Provider Dr. Malika Samuels MD Referring Provider Roof EMPLOYEE BENEFITS COORDINATOR-C, Jeyson H Attending Provider Roof EMPLOYEE BENEFITS COORDINATOR-C, Jeyson H Referring Provider Dr. Nathan Guzman DO Primary Care Provider Dr. Nathan Guzman DO Attending Provider Dr. Florin Bowles MD Emergency Provider Jelena GRAHAM, Dr. Catherine Attending Provider Nathan Guzman Primary Care Unavailable Arvind, Malika Attending Unavailable MeganNathan Referring Unavailable Megan, Nathan Primary Care Unavailable Megan, Nathan Referring Unavailable Arvind, Malika Attending Unavailable Megan, Nathan Primary Care Unavailable Arvind, Malika Referring Unavailable Arvind, Malika Attending Unavailable Megan, Nathan Primary Care Unavailable Arvind, Malika Attending Unavailable Arvind, Malika Referring Unavailable Megan, Nathan Primary Care Unavailable MeganNathan Attending Unavailable Megan, Nathan Primary Care Unavailable Arvind, Malika Attending Unavailable Arvind, Malika Referring Unavailable Roof EMPLOYEE BENEFITS COORDINATOR, Jeyson H Referring Unavailable Roof EMPLOYEE BENEFITS COORDINATOR, Jyeson H Attending Unavailable Megan, Nathan Primary Care Unavailable Megan, Nathan Primary Care Unavailable Arvind, Malika Referring Unavailable Arvind, Malika Attending Unavailable Roof EMPLOYEE BENEFITS COORDINATOR, Jeyson H Attending Unavailable Megan, Nathan Primary Care Unavailable Roof EMPLOYEE BENEFITS COORDINATOR, Jeyson H Referring Unavailable Megan, Nathan Referring Unavailable Megan, Nathan Attending Unavailable Megan, Nathan Primary Care Unavailable MeganNathan Referring Unavailable MeganNathan Attending Unavailable Megan, Nathan Primary Care Unavailable Megan, Nathan Primary Care Unavailable Florin Bowles Attending Unavailable Roof EMPLOYEE BENEFITS COORDINATOR, Jeyson H Attending Unavailable Megan, Nathan Primary Care Unavailable Roof EMPLOYEE BENEFITS COORDINATOR, Jeyson H Referring Unavailable MeganNathan Attending Unavailable Megan, Nathan Primary Care Unavailable Megan, Nathan Referring Unavailable MeganNathan Attending Unavailable Megan, Nathan Primary Care Unavailable Megan, Nathan Referring Unavailable Megan, Nathan Primary Care Unavailable Arvind, Malika Referring Unavailable Arvind, Malika Attending Unavailable Megan, Nathan Primary Care Unavailable Roof EMPLOYEE BENEFITS COORDINATOR, Jeyson H Attending Unavailable Megan, Nathan Primary Care Unavailable Arvind, Malika Attending Unavailable Megan, Nathan Primary Care Unavailable Roger Dietz Attending Unavailable Roof EMPLOYEE BENEFITS COORDINATOR, Jeyson H Attending Unavailable Megan, Nathan Primary Care Unavailable Dr. Nathan Guzman DO Primary Care Provider Dr. Nathan Guzman DO Referring Provider [phone] Kalin Rangel Attending Provider [phone] Allergies Allergy Classification Reported Allergen(s) Allergy Type Date of Onset Reaction(s) Facility Hyoscyamine (2 sources) Hyoscyamine Drug Allergy 01-16-20 GI Upset [facility] ixekizumab (2 sources) ixekizumab Drug Allergy 01-16-20 23 Swelling [facility] Opioid Agonists (2 sources) HYDROcodone Drug Allergy 05-15-20 21 GI Upset [facility] Work Phone: Penicillins (antibiotic) (3 sources) Penicillins; Translations: [Penicillins] Drug Allergy 10-04-19 06 Hives [facility]; [facility] Work Phone: (20 sources) Penicillins; Translations: [Penicillins] allergy to substance 10-04-19 06 Hives, Unknown [facility] Work Phone: (20 sources) HYDROcodone; Translations: [HYDROCODONE] Drug Allergy 05-15-20 GI [facility] (20 sources) Hyoscyamine; Translations: [HYOSCYAMINE] Drug Allergy 03-26-20 22 GI [facility] (3 sources) Acetaminophen / HYDROcodone; Translations: [Vicodin TABS] Drug Allergy [facility] 2500 DO Work Phone: (20 sources) ixekizumab; Translations: [Taltz SOSY] Drug Allergy 01-16-20 23 Swelling, Unknown [facility] (20 sources) Acetaminophen / HYDROcodone; Translations: [HYDROCODONE-ACET AMINOPHEN] Drug Allergy 07-22-20 23 Intolerance, Unknown [facility] Repository (5 sources) ixekizumab; Translations: [IXEKIZUMAB] Drug Allergy 01-16-20 23 [facility] Repository (1 source) HYDROcodone Drug Allergy 01-03-20 25 [facility] Repository (1 source) Hyoscyamine Drug Allergy 01-03-20 25 [facility] Repository Medications Current Medications Medication Drug Class(es) Dates Sig (Normalized) Sig (Original) 1 ml abatacept 125 mg/ml auto-injector (15 sources) Selective T Cell Costimulation Modulator Start: [...] mg tablet Active 5 mg PO daily 26 06June 22, 2024 11:55am Start: 11-11-2022 take 5 [...] 12:00am Start: 01-06-2023 take 1 capsule by [facility] twice daily at mealtime, then take 1 capsule by mouth once daily celecoxib (CELEBREX) 200 mg capsule take 1 capsule by mouth twice a day with food for 2 weeks then 1 capsule daily 01/06/2023 Active Comment on above: take 1 capsule by [facility] twice a day with food for 2 weeks then 1 capsule daily clindamycin 300 mg oral capsule (11 sources) Lincosamide Antibacterial Start: 08-17-19 End: 11-03-19 take 2 capsules by mouth every hour Clindamycin Hcl 300 mg capsule Active 600 mg PO .COMPLEX 2 November 02, 2024 1:59pm 600 mg orally 1 hour prior to dental appointment for premed; colestipol hydrochloride 1000 mg oral tablet (20 sources) Bile Acid Sequestrant Start: 03-08-20 Colestipol 1 gram tablet Active 2 g PO ONCE March 08, 2025 12:00am Start: 05-10-2024 End: 05-25-2024 Colestipol 1 gram [...] tablet Discontinued 2 g PO DAILY 60 1 April 05, 2022 12:00am April 18, 2022 [...] 2 g by mouth tw ice daily. 24 hr desvenlafaxine succinate 50 mg extended release oral tablet (20 sources) Serotonin and Norepinephrine Reuptake Inhibitor Start: 12-20-2023 desvenlafaxine ER (PRISTIQ) 50 mg 24 hr tablet Take with the 25 mg tablet for a dose of 75 mg daily 12/20/2023 Active Start: 12-08-2023 desvenlafaxine ER (PRISTIQ) 25 mg 24 hr tablet Take with the 50 mg tablet for a dose of 75 mg daily 12/08/2023 Active Start: 12-08-2023 take 1 tablet by [facility] once daily desvenlafaxine ER (PRISTIQ) 25 mg 24 hr tablet take 1 tablet by mouth daily with 50 milligram tablet 12/08/2023 Active Start: 10-09-2023 take 2 tablets by mo [facility] every twenty-four hours at bedtime, then take [...] 25 mg tablet to = 75 mg q Start: 01-14-2022 take 1 tablet by [place] every twenty-four hours Desvenlafaxine Succinate ER 50 MG Oral Tablet Extended Release 24 Hour Quantity: 60 Refills: 0 Ordered: 28-Aug-2022 DO Start : 14-Jan-2022 Active Start: 10-22-2021 take 1 tablet by [place] once daily Desvenlafaxine Succinate ER 50 MG [...] bedtime. docusate sodium 50 mg / sennosides, mcc 8.6 mg oral tablet (12 sources) Start: take 2 tablets by mouth every twelve hours as needed senna-docusate (SENNA-S) 8.6-50 mg per tablet Take 2 tablets by mouth every 12 hours as needed for constipation. 04/18/2024 Active ezetimibe 10 mg oral tablet (5 sources) Dietary Cholesterol Absorption Inhibitor Start: 5 take 1 tablet by mouth once daily Ezetimibe (Zetia) 10 mg tablet Active 10 mg PO DAILY 90 3 November 29, 2024 12:00am furosemide 40 mg oral tablet (13 sources) Loop Diuretic Start: 4 End: 4 take 1 tablet by mouth once daily furosemide (LASIX) 40 mg tablet Take 1 tablet by mouth once daily for 7 days. 7 tablet 04/27/2024 Active 1 ml guselkumab 100 mg/ml auto-injector (20 sources) Interleukin-23 Antagonist Start: 3 Guselkumab (Tremfya) 100 mg/mL auto-injector Active 100 [...] mg tablet Active 100 mg PO daily 90 3 June 10, 2024 5:09pm Start: 01-14-2023 take [...] Start: 02-08-2022 take 1 tablet by [place] twice daily Losartan Potassium 50 MG Oral [...] mg PO Q8H as needed for pain 14 5 0 May 15, 2021 September 19, 2021 10:06am Acute postoperative pain Other acute postprocedural pain pantoprazole 40 mg delayed release oral tablet (20 sources) Proton Pump Inhibitor Start: 05-10-2024 take 1 tablet by mouth once daily Pantoprazole 40 mg tablet,delayed release (DR/EC) Active 40 mg PO daily May 10, 2024 12:00am Start: 01-08-2023 take 2 tablets by mo uth once daily pantoprazole DR (PROTONIX) 40 mg tablet Take 80 mg by mouth once daily. 01/08/2023 Active Start: 07-31-2022 End: 11-20-2023 take 1 tablet by mouth once daily in the morning Pantoprazole 40 mg tablet,delayed release (DR/EC) Discontinued 40 mg PO EVERY MORNING 90 July 31, 2022 5:25pm November 20, 2023 3:47am Start: 05-01-2022 End: 07-31-2022 take 1 tablet by mouth twice daily Pantoprazole 40 mg tablet,delayed release (DR/EC) Discontinued 40 mg PO TWICE A DAY 60 2 May 01, 2022 12:00am July 31, 2022 [...] Quantity: 12 {Tablet} Refills: 3 Ordered: 17-Nov-2018 Shilpa Rosales CNP, CNP, Mary E Start : 17-Nov-2018 Active 125 ml sodium [...] Refills: 3 Ordered: 05-Apr-2018 Shilpa Rosales CNP, CNP, Shilpa Kate Start : 05-Apr-2018 Active Start: 05-30-2013 End: [...] Sig (Original) acetaminophen 500 mg oral capsule (18 sources) Start: 05-10-2024 End: 05-25-2024 take 2 capsules by mouth every six hours as needed for pain Acetaminophen 500 mg capsule Discontinued 1000 mg PO EVERY 6 HOURS as needed for pain May 10, 2024 12:00am May 25, 2024 1:02pm Start: 04-18-2024 take 2 tablets by mo uth every six hours as needed acetaminophen (TYLENOL) [...] 2.5 mg INHALATION EVERY 4 HOURS NEEDED 25 0 April 26, 2019 12:00am June 05, 2020 2:21pm Use q4 hours and PRN for wheezing ALPRAZolam 0.5 mg oral tablet (15 sources) Benzodiazepine Start: 08-23-19 23 ALPRAZolam 0.5 MG Oral Tablet Quantity: 90 Refills: 0 Ordered: 23-Aug-2022 DO Start : 23-Aug-2022 Complete Start: 08-23-2022 End: 09-22-2022 take 1 tablet by mouth three times daily as needed for anxiety Alprazolam 0.5 mg tablet Discontinued 0.5 mg PO THREE TIMES A DAY as needed for anxiety 90 30 0 August 23, 2022 1:00am September 21, 2022 [...] aspirin 81 mg delayed release oral tablet (18 sources) Platelet Aggregation Inhibitor, Nonsteroidal Anti-inflammatory Drug [...] 4 TIMES DAILY as needed for diarrhea 20 5 0 November 20, 2023 5:17am May 25, 2024 1:03pm Diarrhea Diarrhea, unspecified Start: 07-16-2022 Diphenoxylate- Atropine 2.5-0.025 MG Oral Tablet Quantity: 60 Refills: 0 Ordered: 16-Jul-2022 DO Start : 16-Jul-2022 Complete Start: 04-05-2022 End: 11-11-2022 Diphenoxylate-Atropine (Lomo til) 2.5-0.025 mg tablet Discontinued 1 {tbl} PO TWICE A DAY 60 1 July 16, 2022 4:17pm November 11, 2022 2:44pm diarrhea azelastine hydrochloride 0.206 mg/actuat metered dose nasal [...] budesonide 3 mg delayed release oral capsule (16 sources) Corticosteroid Start: 05-28-2022 End: 07-04-2022 take 3 capsules by mouth once daily Budesonide 3 mg capsule,delayed,e xtend.release Discontinued 9 mg PO DAILY 90 May 28, 2022 12:00am July 04, 2022 9:34am Start: 05-28-2022 End: 07-04-2022 take 9 mg by mouth once daily Budesonide Discontinued 9 MG PO DAILY May 28, 2022 12:00am July 04, 2022 9:34am busPIRone hydrochloride 15 mg oral tablet (13 sources) Start: 09-11-2022 End: 11-11-2022 take 1 tablet by mouth twice daily Buspirone 15 mg tablet Discontinued 15 mg PO TWICE A DAY 60 3 September 11, 2022 1:00am November 11, 2022 2:43pm cholestyramine resin 4000 mg powder for oral suspension (15 sources) Bile Acid Sequestrant Start: 07-16-2022 Cholestyramine 4 GM/DOSE Oral Powder Quantity: 369 Refills: 0 Ordered: 16-Jul-2022 DO Start : 16-Jul-2022 Complete Start: 07-16-2022 End: 11-11-2022 Cholestyramine (With Sugar) 4 gram powder Discontinued 4 g PO .COMPLEX 378 2 July 16, 2022 1:00am November 11, 2022 [...] 0 Ordered: 15-Apr-2011 Georgia Lilly Start : 12-Apr-2010 End : 15-Apr-2011 Inactive [...] tablet Discontinued 30 mg PO AT BEDTIME 30 30 0 August 23, 2022 September 21, 2022 1:00am September 11, 2022 6:41pm Diarrhea Diarrhea, unspecified diarrhea dicyclomine hydrochloride 10 mg oral capsule (20 sources) Anticholinergic Start: 03-26-2022 End: 04-05-2022 Dicyclomine 10 mg capsule Discontinued 10 mg PO TWICE A DAY 90 0 March 26, 2022 12:00am April 05, 2022 10:29am take two times a day and once as needed for one week then three times a day as needed. doxycycline monohydrate 100 mg oral capsule (20 sources) Tetracycline-class Drug Start: 04-26-2019 End: 06-05-2020 take 1 capsule by mouth twice daily Doxycycline Monohydrate 100 MG capsule Discontinued 100 mg PO TWICE A DAY April 26, 2019 12:00am June 05, 2020 2:20pm DULoxetine 30 mg delayed release oral capsule (20 sources) Serotonin and Norepinephrine Reuptake Inhibitor Start: 09-07-2014 End: 09-23-2014 CYMBALTA, 30MG (Oral Capsule Delayed Release Particles) [address] Part QD for 0 days Quantity: 30 {Capsule} Refills: 0 Ordered: 23-Sep-2014 MERARI Richter LPN Start : 07-Sep-2014 End : 23-Sep-2014 Inactive escitalopram 20 mg oral tablet (20 sources) Serotonin Reuptake Inhibitor Start: 05-15-2015 End: 05-15-2015 take 1 tablet by mouth once daily LEXAPRO, 20MG (Oral Tablet) 1 (one) Tablet daily for 360 days Refills: 0 Ordered: 15-May-2015 Miguel LUIS Libertad Nnamdi Start : 15-May-2015 End : 15-May-2015 Discontinued [...] 17-Mar-2008 Discontinued hydroCHLOROthiazide 12.5 mg oral tablet (18 sources) Thiazide Diuretic Start: 04-07-2023 End: 04-21-2023 take 1 tablet by mouth once daily Hydrochlorothiazide 12.5 mg tablet Discontinued 12.5 mg PO DAILY 90 3 April 07, 2023 3:53pm April 21, 2023 11:19am hyoscyamine sulfate 0.125 mg oral tablet (20 sources) Start: 01-02-2025 End: 03-08-2025 take 2 tablets by mouth every six hours as needed Hyoscyamine Sulfate (Levsin) 0.125 mg tablet Discontinued 0.25 mg PO EVERY 6 HOURS as needed for abdominal discomfort 20 0 January 02, 2025 5:08pm March 08, 2025 1:14pm Start: 03-25-2022 End: 03-26-2022 Hyoscyamine Sulfate Disconti [...] mg tablet Discontinued 0 .ROUTE .COMPLEX 60 0 March 25, 2022 11:59am March 26, 2022 2:02pm take 1 tablet by mouth TWO TO FOUR TIMES A DAY if needed for DYSPEPSIA - TAKE 2 TIMES DAILY AND ONCE NEEDED FOR 1 WEEK, THEN NEEDED ONLY THEREAFTER Start: 03-14-2022 End: 03-25-2022 Hyoscyamine Sulfate 0.125 mg tablet Discontinued 0.125 mg PO 2 to 4 times per day as needed for dyspepsia 60 0 March 14, 2022 12:00am March 25, 2022 11:59am take two times a day and once PRN for one week then as needed only. 1 ml ixekizumab 80 mg/ml auto-injector (20 sources) Interleukin-17A Antagonist Start: 04-05-2022 End: 07-04-2022 [...] Discontinued magnesium oxide 400 mg oral tablet (18 sources) Start: 05-10-2024 End: 05-25-2024 take 1 [...] Quantity: 30 {Tablet} Refills: 0 Ordered: 15-May-2015 uJdy Garcia CMA Start : 02-Jul-2013 End : 15-May-2015 Inactive Comments: with food Comment on above: with food methylPREDNISolone 4 mg oral tablet (20 sources) Corticosteroid Start: 10-01-2021 End: 03-14-2022 take 1 tablet by mouth once daily Methylprednisolone (Medrol (Chaparro)) 4 mg tablets,dose pack Discontinued 4 mg PO DAILY October 01, 2021 1:00am March 14, 2022 5:16pm one tab by mouth as directed metoclopramide 10 mg oral tablet (3 sources) Dopamine-2 Receptor Antagonist Start: 01-02-2025 End: 03-08-2025 take 1 tablet by mouth every eight hours as needed Metoclopramide Hcl 10 mg tablet Discontinued 10 mg PO Q8H as needed for n/v 12 January 02, 2025 12:00am March 08, 2025 1:15pm metoprolol tartrate 100 mg oral tablet (20 sources) beta-Adrenergic Joshua Start: 05-25-2024 End: 11-08-2024 take 1 tablet by mouth twice daily Metoprolol Tartrate 100 mg tablet Discontinued 100 mg PO TWICE A DAY 60 4 June 10, 2024 5:08pm November 08, 2024 8:50am Start: 05-11-2024 End: 05-25-2024 take 1 tablet by mouth twice daily Metoprolol Tartrate 50 mg tablet Discontinued 50 mg PO TWICE A DAY 180 3 May 11, 2024 9:55am May 25, 2024 4:12pm Start: 04-30-2024 End: 07-29-2024 take 1 tablet by mouth twice daily Metoprolol Tartrate 25 mg tablet Discontinued 25 mg PO TWICE A DAY 0 0 May 10, 2024 3:10pm May 11, 2024 9:33am Start: 03-23-2024 End: 05-10-2024 Metoprolol Tartrate 25 mg ta gallot Discontinued 12.5 mg PO TWICE A DAY 90 March 23, 2024 12:00am May 10, 2024 3:10pm Dose changed by EP in [place] Start: 01-09-2024 End: 04-08-2024 take 0.5 tablet [...] 50 mg PO TWICE A DAY 180 3 October 10, 2023 8:54am March 23, 2024 [...] 2023 3:06pm take 1 tablet by [place] once daily metoprolol tartrate (Lopressor) 25 mg tablet Take 1 tablet (25 mg) by mouth once daily. Active Comment on above: Take 25 mg by mouth twice daily. Multivitamin-Iron- Folic Acid (Centrum) 18-400 mg-mcg tablet (6 sources) Start: End: Leddayenzpaa-Hlcd-Olb ic Acid (Centrum) 18-400 mg-mcg tablet Discontinued [...] TWICE A DAY as needed for pain 20 0 April 13, 2022 12:00am April 18, 2022 [...] Quantity: 30 {Capsule} Refills: 0 Ordered: 22-Oct-2021 Shilpa Rosales Mary Start : 22-Oct-2021 Active Start: 03-23-2021 take 1 capsule by mo [facility] once daily Omeprazole 40 MG Oral [...] Quantity: 30 {Capsule} Refills: 0 Ordered: 05-Apr-2016 Cally Bales LPN Start : 08-Dec-2013 End : 05-Apr-2016 [...] Quantity: 30 {Capsule} Refills: 0 Ordered: 05-Apr-2016 Cally Bales LPN Start : 15-Dec-2015 End : 05-Apr-2016 Discontinued Start: 10-22-2013 End: 09-23-2014 take 1 capsule by mouth once daily INDERAL LA, 80MG (Oral Capsule Extended Release 24 Hour) 1 (one) Capsule ER 24HR qd for 0 days Quantity: 30 {Capsule_ER_24HR} Refills: 3 Ordered: 23-Sep-2014 Rober MCGRATH MERARI Start : 22-Oct-2013 End : 23-Sep-2014 Inactive Start: 05-30-2013 End: 04-21-2014 take 1 tablet by mouth once daily Propranolol 20 MG tablet Discontinued 20 mg PO DAILY May 30, 2013 12:00am April 21, 2014 11:53am rifAXIMin 550 mg oral tablet (17 sources) Rifamycin Antibacterial Start: 06-25-2022 End: 07-09-2022 take 1 tablet by mouth three times daily Rifaximin (Xifaxan) 550 mg tablet Discontinued 550 mg PO THREE TIMES A DAY 42 14 0 June 25, 2022 1:00am July 08, 2022 1:00am July 09, 2022 1:03am rosuvastatin calcium 5 mg oral tablet (15 sources) HMG-CoA Reductase Inhibitor Start: 03-13-2021 End: 03-13-2021 Rosuvastatin Calcium 5 MG Oral Tablet 1 (one) Tablet every other night for 0 days Quantity: 90 {Tablet} Refills: 0 Ordered: 13-Mar-2021 Shilpa Rosales Mary Start : 13-Mar-2021 End : [...] Quantity: 90 {Tablet} Refills: 0 Ordered: 24-Mar-2020 Shilpa Rosales CNP, CNP, Mary E Start : 24-Mar-2020 Active 1 ml secukinumab [...] for 7 days Refills: 0 Ordered: 07-Oct-2008 Miguel Libertad LUIS Start : 07-Oct-2008 End : 25-Oct-2008 Inactive [...] 125 mg PO EVERY 6 HOURS 56 0 February 05, 2022 4:32pm March 14, 2022 [...] and vomiting (20 sources) Nausea; Translations: [Nausea] Onset: 5 Resolved: 4 06-29-2015 Episodic Comment on above: out of the blue thro ws up Noninfectious gastroenteritis (4 sources) Chronic diarrhea; Translations: [Noninfective gastroenteritis and colitis, unspecified] Onset: 5 01-02-2025 Episodic Nonspecific chest pain (20 sources) Chest [...] cramps] 04-04-2020 Episodic Other connective tissue disease (6 sources) Synovial cyst of popliteal space [Dc], [...] [Diarrhea, unspecified] Onset: 2 12-18-2022 Episodic Other gastrointestinal disorders (3 sources) Abdominal bloating; Translations: [Abdominal distension (gaseous)] 01-02-2025 Episodic Other gastrointestinal disorders (3 sources) Observation of sensation; Translations: [Other specified symptoms and signs involving the digestive system and abdomen] 01-02-2025 Episodic Other inflammatory condition of skin (20 [...] Dr. Hernandez in [place] now seeing Kaceynilsa Aguila at [facility] nabumetone 500mg [...] valve unspecified; Translations: [Valvular heart disease] Onset: Chronic Pleurisy; pneumothorax; pulmonary collapse (1 source) [...] to follow up w pal Regalado in [place]. PTSD is working on that with Dr. [...] 03-10-2024 Unclassified (1 source) New Patient Onset: 4 Past or Other Problems Problem Classification Problem Date Documented Date Episodic/Chronic Abdominal pain (20 sources) Abdominal pain; Translations: [Generalized abdominal pain] Resolved: 05-11-2014 06-14-2015 Episodic Acute posthemorrhagic anemia (14 sources) Acute posthemorrhagic anemia; Translations: [Acute posthemorrhagic anemia] Onset: 04-14-2024 04-14-2024 Episodic Biliary tract disease (20 sources) Biliary sludge; Translations: [Gallbladder sludge] Onset: 01-15-2023 03-26-2021 Episodic Comment on above: will see Sandhu, Sept 3 Deficiency and other anemia (20 sources) [...] repeat repeat, Alt 52 Ast 5 1 8-3-21. repeating today to send to Dr. Aguila [...] to follow up w pal Regalado in [place]. PTSD is working on that with Dr. 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 Nathan Guzman DO Status: REG CLI Study: Abdomen/Pelvis WITH Contrast Date of Exam: 05/21 Exam# [id number] Ordering Dr: Nathan Guzman DO PROCEDURE: ABDOMEN/PELVIS WITH CONTRAST 01/04/2025 REASON FOR EXAM: INFLAMMATORY DIARRHEA TECHNIQUE: Abdomen and pelvis CT with intravenous contrast. Coronal and Sagittal reconstruction series were provided. PATIENT PREPARATION: Per protocol ORAL CONTRAST TYPE: Patient ingested oral contrast. CONTRAST: Isovue-350 VOLUME: 100 mL One or more dose reduction techniques were used (e.g., Automated exposure control, adjustment of the mA and/or kV according to patient size, use of iterative reconstruction technique. RADIATION DOSE SUMMARY: CTDlvol: 17.44 mGy DLP: 960 mGycm COMPARISON: CT scan on 04/19/2022. FINDINGS: Mild diffuse thickening of the sigmoid colon. Underdistention, spasm versus mild colitis. Prior cholecystectomy. Mild hepatic steatosis. Small sliding hiatal hernia. Diffuse thickening of the stomach, probably gastritis. Prior hysterectomy. Mild diffuse spondylosis. Chronic Schmorl's node formation in the superior endplate of L2. The visualized lung bases are unremarkable. Normal liver. Normal extrahepatic biliary system. Normal spleen. Normal pancreas. Normal bilateral adrenal glands. Normal size of the right kidney. There is no right renal mass. There are no right renal calculi. There is no right hydronephrosis. Normal visualized right ureter. Normal size of the left kidney. There is no left renal mass. There are no left renal calculi. There is no left hydronephrosis. Normal visualized left ureter. Normal small intestine. The appendix is not visualized. There is no demonstrated peritoneal fluid. Normal abdominal aorta. Normal inferior vena cava. Normal retroperitoneum. Normal urinary bladder. There is no pelvic mass lesion or lymphadenopathy. There is no pelvic fluid. Normal abdominal wall. CT/Abdomen/Pelvis WITH Contrast IMPRESSION: Mild diffuse thickening of the sigmoid colon. Underdistention, spasm versus mild colitis. Prior cholecystectomy. Mild hepatic steatosis. Small sliding hiatal hernia. Diffuse thickening of the stomach, probably gastritis. Prior hysterectomy. Mild diffuse spondylosis. Chronic Schmorl's node formation in the superior endplate of L2. Reading Location: [place] [address] CC: Dr. Nathan Guzman, Chief Juvenile Probation Officer: Signed Normal [facility] Absolute lymphocyte countOrd ered By: Florin Bowles on 01-02-2025 Lymphocytes Auto (Unsp spec) [#/Vol] 1.61 10*3/uL 0.83-4.51 [facility] Absolute neutrophil countOrd ered By: Florin Bowles on 01-02-2025 Neutrophils (Bld) [#/Vol] 2.0 10*3/uL 2.0-7.7 [facility] Anion gap in Serum or Plasma Ordered By: Florin Bowles on 01-02-2025 Anion gap [Moles/Vol] 13 mmol/L 5-15 [facility] Automated lymphocyte count a s percentage of total leukocytesOrdered By: Florin Bowles on 01-02-2025 Lymphocytes/100 WBC Auto (Unsp spec) 36.9 % 19- [facility] BUN/creatinine ratioOrdered By: Florin Bowles on 01-02-2025 Urea nitrogen/Creatinine [Mass ratio] 14.0 mg/mg 10-20 [facility] Basophil percentageOrdered B y: Florin Bowles on 01-02-2025 Basophils/100 WBC (Bld) 1.1 % High 0-1 [facility] Bilirubin, totalOrdered By: Florin Bowles on 01-02-2025 Bilirubin [Mass/Vol] 0.60 mg/dL 0.00-1.[address] [facility] CBC W/Diff, Automatedon Absolute Lymph 1.61 X10 3/uL Normal 0.83-4.51 [facility] Comment on above: Performed By: #### L 500.4050, L100.0100, L501.2450 #### [facility] [address] [place], [address] Absolute Neut 2.0 X10 3/uL Normal 2.0-7.7 [facility] Comment on above: Performed By: #### L 500.4050, L100.0100, L501.2450 #### [facility] [address] [place], [address] Basophils/100 WBC (Bld) 1.1 % High 0-1 [facility] Comment on above: Performed By: #### L 500.4050, L100.0100, L501.2450 #### [facility] [address] [place], [address] Eosinophils/100 WBC (Bld) 5.0 % Normal 0-5 [facility] Comment on above: Performed By: #### L 500.4050, L100.0100, L501.2450 #### [facility] [address] [place], [address] Erythrocyte distribution width (RBC) [Ratio] 12.6 % Normal 11.6-14.6 [facility] Comment on above: Performed By: #### L 500.4050, L100.0100, L501.2450 #### [facility] [address] [place], [address] Hematocrit (Bld) [Volume fraction] 37.4 % Normal 37-47 [facility] Comment on above: Performed By: #### L 500.4050, L100.0100, L501.2450 #### [facility] [address] [place], [address] Hemoglobin (Bld) [Mass/Vol] 13.2 g/dL Normal 12.0-15.0 [facility] Comment on above: Performed By: #### L 500.4050, L100.0100, L501.2450 #### [facility] [address] [place], [address] IG% 0.200 Normal 0.0-0.9 [facility] Comment on above: Result Comment: IG% - Immature Granulocytes (promyelocytes, myelocytes and metamyelocytes) > 1% indicates that a LEFT SHIFT is Present. Performed By: #### L 500.4050, L100.0100, L501.2450 #### [facility] [address] [place], [address] Lymphocytes/100 WBC (Bld) 36.9 % Normal 19-41 [facility] Comment on above: Performed By: #### L 500.4050, L100.0100, L501.2450 #### [facility] [address] [place], [address] MCH (RBC) [Entitic mass] 33.2 pg High 27.0-32.0 [facility] Comment on above: Performed By: #### L 500.4050, L100.0100, L501.2450 #### [facility] [address] [place], [address] MCHC (RBC) [Mass/Vol] 35.3 g/dL Normal 32-36 [facility] Comment on above: Performed By: #### L 500.4050, L100.0100, L501.2450 #### [facility] [address] [place], [address] MCV (RBC) [Entitic vol] 94.0 fL Normal 81-99 [facility] Comment on above: Performed By: #### L 500.4050, L100.0100, L501.2450 #### [facility] [address] [place], [address] Monocytes/100 WBC (Bld) 10.3 % High 0-10 [facility] Comment on above: Performed By: #### L 500.4050, L100.0100, L501.2450 #### [facility] [address] [place], [address] Neutrophils/100 WBC (Bld) 46.5 % Low 47-70 [facility] Comment on above: Performed By: #### L 500.4050, L100.0100, L501.2450 #### [facility] [address] [place], [address] Nucleated RBC (Bld) [#/Vol] 0 10*3/uL Normal 0-5 [facility] Comment on above: Performed By: #### L 500.4050, L100.0100, L501.2450 #### [facility] [address] [place], [address] Platelet mean volume (Bld) [Entitic vol] 9.0 fL Normal 6.2-12.0 [facility] Comment on above: Performed By: #### L 500.4050, L100.0100, L501.2450 #### [facility] [address] [place], [address] Platelets (Bld) [#/Vol] 232 10*3/uL Normal 150-450 [facility] Comment on above: Performed By: #### L 500.4050, L100.0100, L501.2450 #### [facility] [address] [place], [address] RBC (Bld) [#/Vol] 3.98 10*6/uL Low 4.2-5.4 [facility] Comment on above: Performed By: #### L 500.4050, L100.0100, L501.2450 #### [facility] [address] [place], [address] RDW SD 43.4 fl Normal 35.1-43.9 [facility] Comment on above: Performed By: #### L 500.4050, L100.0100, L501.2450 #### [facility] [address] [place], [address] WBC (Bld) [#/Vol] 4.4 10*3/uL Normal 4.4-11.0 [facility] Comment on above: Performed By: #### L 500.4050, L100.0100, L501.2450 #### [facility] [address] [place], [address] Carbon dioxide, total [Moles /volume] in Central venous bloodOrdered By: Florin Bowles on 01-02-2025 CO2 [Moles/Vol] 20.6 mmol/L Low 21.0-32.0 [facility] Chloride assayOrdered By: Nory Bowles on 01-02-2025 Chloride [Moles/Vol] 106 mmol/L 98-[address] [facility] Comprehensive Metabolic Prof ilon 01-02-2025 Albumin [Mass/Vol] 4.0 g/dL Normal 3.5-5.0 [facility] Comment on above: Performed By: #### L 500.4050, L100.0100, L501.2450 #### [facility] [address] [place], [address] Albumin/Globulin [Mass ratio] 1.2 {ratio} Normal 0.9-2.4 [facility] Comment on above: Performed By: #### L 500.4050, L100.0100, L501.2450 #### [facility] [address] [place], [address] ALK PHOS 78 U/L Normal 35-104 [facility] Comment on above: Performed By: #### L 500.4050, L100.0100, L501.2450 #### [facility] [address] [place], [address] ALT [Catalytic activity/Vol] 23 U/L Normal <=34 [facility] Comment on above: Performed By: #### L 500.4050, L100.0100, L501.2450 #### [facility] [address] [place], [address] AST [Catalytic activity/Vol] 26 U/L Normal <=31 [facility] Comment on above: Performed By: #### L 500.4050, L100.0100, L501.2450 #### [facility] [address] [place], [address] Bilirubin [Mass/Vol] 0.60 mg/dL Normal 0.00-1.[address] [facility] Comment on above: Performed By: #### L 500.4050, L100.0100, L501.2450 #### [facility] [address] [place], [address] BUN/CRE 14.0 RATIO Normal 10-20 [facility] Comment on above: Performed By: #### L 500.4050, L100.0100, L501.2450 #### [facility] [address] [place], [address] Calcium [Mass/Vol] 9.1 mg/dL Normal 7.6-11.0 [facility] Comment on above: Performed By: #### L 500.4050, L100.0100, L501.2450 #### [facility] [address] [place], [address] Chloride [Moles/Vol] 106 mmol/L Normal 98-[address] [facility] Comment on above: Performed By: #### L 500.4050, L100.0100, L501.2450 #### [facility] [address] [place], [address] CO2 [Moles/Vol] 20.6 mmol/L Low 21.0-32.0 [facility] Comment on above: Performed By: #### L 500.4050, L100.0100, L501.2450 #### [facility] [address] [place], [address] Creatinine [Mass/Vol] 0.79 mg/dL Normal 0.70-1.20 [facility] Comment on above: Performed By: #### L 500.4050, L100.0100, L501.2450 #### [facility] [address] [place], [address] ECRCL 93.50 ml/min Normal 50-250 [facility] Comment on above: Performed By: #### L 500.4050, L100.0100, L501.2450 #### [facility] [address] [place], [address] GAP 13 Normal 5-15 [facility] Comment on above: Performed By: #### L 500.4050, L100.0100, L501.2450 #### [facility] [address] [place], [address] GFR/1.73 sq M.predicted among non-blacks MDRD (S/P/Bld) [Vol rate/Area] 88 mL/min/{1.73_m2} Normal >60 [facility] Comment on above: Result Comment: mL/m in/1.73m2 CKD-EPI Creatinine Equation (2020) Performed By: #### L 500.4050, L100.0100, L501.2450 #### [facility] [address] [place], [address] Globulin (S) [Mass/Vol] 3.4 g/dL Normal 2.2-4.2 [facility] Comment on above: Performed By: #### L 500.4050, L100.0100, L501.2450 #### [facility] [address] [place], [address] Glucose [Mass/Vol] 88 mg/dL Normal 70-99 [facility] Comment on above: Performed By: #### L 500.4050, L100.0100, L501.2450 #### [facility] [address] [place], [address] Potassium [Moles/Vol] 3.4 mmol/L Normal 3.3-5.1 [facility] Comment on above: Performed By: #### L 500.4050, L100.0100, L501.2450 #### [facility] [address] [place], [address] Sodium [Moles/Vol] 139 mmol/L Normal 133-145 [facility] Comment on above: Performed By: #### L 500.4050, L100.0100, L501.2450 #### [facility] [address] [place], [address] T PROT 7.3 g/dL Normal 5.9-8.4 [facility] Comment on above: Performed By: #### L 500.4050, L100.0100, L501.2450 #### [place] [facility] [address] [place], [address] Urea nitrogen [Mass/Vol] 11 mg/dL Normal 4-19 [facility] Comment on above: Performed By: #### L 500.4050, L100.0100, L501.2450 #### [facility] [address] [place], [address] Emergency Department Summary on 01-02-2025 Emergency Department Summary [facility] Medical Records Department [address] [place] [address] Emergency Department Summary 01/02/25 MR#: [id number] Acct: [id number] Name: CAMMIE BHAT Rep #: [id number] : 1970 54 From: Florin Bowles MD PCP: Dr. Nathan Guzman, DO Status:REG ER Location: ED HPI HPI - GI History of Present Illness Chief Complaint: Nausea/Vomiting/Diarrh ea Informant: patient and spouse/S.O. Narrative Narrative: 54-year-old female has been having GI symptoms for months. Abdominal cramping periumbilical/infraumb ilical, bloating, nausea with some occasional vomiting, diarrhea with mucus and tenesmus. No hematochezia. No melena. No hematemesis. No fevers or chills. She states symptoms have been worse in the past couple weeks, especially overnight, she vomited some last night. Very bloated. More diarrhea. No new symptoms but she has an outpatient CT scheduled for Friday, today is Friday, and she is concerned that something worse may be going on. She is scheduled to see GI but they wanted to see the results of her scheduled outpatient CT before they see her. Nitrating Acid Mixer is not at this hospital or town. States she just had some recent outpatient stool tests including a positive lactoferrin, a negative enteric bacterial panel, and a negative C. difficile which she showed me and are in our system. [facility] Medical History SVT (supraventricular tachycardia) Mitral regurgitation Mitral valve [...] drugs Migraines History of suicide attempt Depression Home Medications ???Medication ???Instructions ???Recorded ???Last Taken ???Type rizatriptan 10 mg tablet (Maxalt) 10 mg PO PRN PRN MIGRAINES Unknown History guselkumab 100 mg/mL subcutaneous 100 mg subcut Q8W 04/07/23 Unknow n History auto-injector (Tremfya) topiramate 25 mg tablet 75 mg PO QHS 04/07/23 Unknown Hist ory desvenlafaxine succinate 25 mg 25 mg PO QHS 10/09/23 Unknown Hist ory tablet,extended release 24 hr desvenlafaxine succinate 50 mg 50 mg PO QDAY 10/09/23 Unknown His tory tablet,extended release 24 hr celecoxib 200 mg capsule 200 mg PO DAILY PRN mild pain 10/27 12/18 Unknown History pantoprazole 40 mg tablet,delayed 40 mg PO QDAY 05/10/24 Unknown Hi story release losartan 100 mg tablet 100 mg PO QDAY #90 tabs 06/10/24 U nknown Rx amlodipine 5 mg tablet 5 mg PO QDAY #30 tabs 06/22/24 Unk nown Rx clindamycin HCl 300 mg capsule 600 mg (2 x 300 mg) PO .COMPLEX #2 11/02/24 Unknown Rx caps metoprolol tartrate 100 mg tablet 100 mg PO BID #60 tabs 11/08/24 U nknown Rx ezetimibe 10 mg tablet (Zetia) 10 mg PO DAILY #90 tabs 11/29/24 U nknown Rx hyoscyamine sulfate 0.125 mg 0.25 mg (2 x 0.125 mg) PO Q6H PRN 01/02/25 Unknown Rx tablet (Levsin) abdominal discomfort #20 tabs metoclopramide HCl 10 mg tablet 10 mg PO Q8H PRN n/v #12 tabs 03/21 Unknown Rx Allergy/AdvReac Type Severity Reaction Status Date / Time ixekizumab Allergy Intermediate Swelling Verified 01/02/25 15:14 hydrocodone (From Vicodin) Allergy Nausea Verified 01/02/25 15:14 Penicillins (PCN) Allergy Hives Verified 01/02/25 15:14 hyoscyamine AdvReac Intermediate emesis Verified 01/02/25 15:14 Family History Sister Hypertension Mother Thyroid disorder MVP (mitral valve prolapse) SVT (supraventricular tachycardia) Father Hypertension Hyperlipidemia Cancer Prostate Surgical History (more content not included)... Normal [facility] Eosinophil percentageOrdered By: Florin Bowles on 01-02-2025 Eosinophils/100 WBC (Bld) 5.0 % 0-5 [facility] Erythrocyte distribution wid th ratioOrdered By: Florin Bowles on 01-02-2025 Erythrocyte distribution width (RBC) [Ratio] 12.6 % 11.6-14.6 [facility] Erythrocyte distribution wid th standard deviationOrdered By: Florin Bowles on 01-02-2025 Erythrocyte distribution width (RBC) [Ratio] 43.4 fl 35.1-43.9 [facility] Glomerular filtration rate ( GFR) estimation/1.73 sq m using serum, plasma, or whole bOrdered By: Florin Bowles on 01-02-2025 GFR/1.73 sq M.predicted among non-blacks MDRD (S/P/Bld) [Vol rate/Area] 88 mL/min/{1.73_m2} >60 [facility] Comment on above: mL/min/1.73m2 CKD-EP I Creatinine Equation (2020) Hematocrit Auto (Bld) [Volum e fraction]Ordered By: Florin Bowles on 01-02-2025 Hematocrit (Bld) [Volume fraction] 37.4 % 37-47 [facility] Hemoglobin measurementOrdere d By: Florin Bowles on 01-02-2025 Hemoglobin (Bld) [Mass/Vol] 13.2 g/dL 12.0-15.0 [facility] Immature granulocytes/100 WB C Auto (Bld)Ordered By: Florin Bowles on 01-02-2025 Immature granulocytes/100 WBC (Bld) 0.200 % 0.0-0.9 [facility] Comment on above: IG% - Immature Granu locytes (promyelocytes, myelocytes and metamyelocytes) > 1% indicates that a LEFT SHIFT is Present. Laboratory - Chemistry and C hemistry - challengeOrdered By: Florin Bowles on 01-02-2025 AST [Catalytic activity/Vol] 26 U/L <32 [facility] Lipaseon 01-02-2025 Lipase [Catalytic activity/Vol] 27 U/L Normal 13-75 [facility] Comment on above: Result Comment: Carlo pimentel note: LIPASE revised reference range effective 22. New Lipase methodology. Expected to produce lower values than the previous assay method. NEW Reference Range: 13 - 75 U/L Performed By: #### L 500.4050, L100.0100, L501.2450 #### [facility] [address] [place], [address] Lipase measurementOrdered By : Florin Bowles on 01-02-2025 Lipase [Catalytic activity/Vol] 27 U/L 13-75 [facility] Comment on above: Please note:LIPASE r evised reference range effective 22. New Lipase methodology. Expected to produce lower values than the previous assay method. NEW Reference Range: 13 - 75 U/L MCV (mean corpuscular volume ) determinationOrdered By: Florin Bowles on 01-02-2025 MCV (RBC) [Entitic vol] 94.0 fL 81-99 [facility] Mean corpuscular hemoglobin (MCH) determinationOrdered By: Florin Bowles on 01-02-2025 MCH (RBC) [Entitic mass] 33.2 pg High 27.0-32.0 [facility] Mean corpuscular hemoglobin concentration (MCHC) determinationOrdered By: Florin Bowles on 01-02-2025 MCHC (RBC) [Mass/Vol] 35.3 g/dL 32-36 [facility] Mean platelet volume determi nationOrdered By: Florin Bowles on 01-02-2025 Platelet mean volume (Bld) [Entitic vol] 9.0 fL 6.2-12.0 [facility] Monocyte percentageOrdered B y: Florin Bowles on 01-02-2025 Monocytes/100 WBC (Bld) 10.3 % High 0-10 [facility] Neutrophil percentageOrdered By: Florin Bowles on 01-02-2025 Neutrophils/100 WBC (Bld) 46.5 % Low 47-70 [facility] Nucleated red blood cell per centageOrdered By: Florin Bowles on 01-02-2025 Nucleated RBC/100 WBC (Bld) [Ratio] 0 % 0-5 [facility] Platelet countOrdered By: Nory Bowles on 01-02-2025 Platelets (Bld) [#/Vol] 232 10*3/uL 150-450 [facility] Potassium measurement (mass/ volume)Ordered By: Florin Bowles on 01-02-2025 Potassium (Unsp spec) [Mass/Vol] 3.4 mmol/L 3.3-5.1 [facility] RBC Auto (Bld) [#/Vol]Ordere d By: Florin Bowles on 01-02-2025 RBC (Bld) [#/Vol] 3.98 10*6/uL Low 4.2-5.4 [facility] Serum creatinine measurement (mass/volume)Ordered By: Florin Bowles on 01-02-2025 Creatinine [Mass/Vol] 0.79 mg/dL 0.70-1.20 [facility] Serum globulin measurementOr dered By: Florin Bowles on 01-02-2025 Globulin (S) [Mass/Vol] 3.4 g/dL 2.2-4.2 [facility] Serum glucose measurement (m ass/volume)Ordered By: Florin Bowles on 01-02-2025 Glucose [Mass/Vol] 88 mg/dL 70-99 [facility] Serum or plasma alanine jeronimo otransferase (ALT) measurementOrdered By: Florin Bowles on 01-02-2025 ALT [Catalytic activity/Vol] 23 U/L <35 [facility] Serum or plasma albumin francois urement (mass/volume)Ordered By: Florin Bowles on 01-02-2025 Albumin [Mass/Vol] 4.0 g/dL 3.5-5.0 [facility] Serum or plasma albumin/glob ulin mass ratioOrdered By: Florin Bowles on 01-02-2025 Albumin/Globulin [Mass ratio] 1.2 {ratio} 0.9-2.4 [facility] Serum or plasma alkaline dileep sphatase measurementOrdered By: Florin Bowles on 01-02-2025 ALP [Catalytic activity/Vol] 78 U/L 35-104 [facility] Serum or plasma calcium francois urement (mass/volume)Ordered By: Florin Bowles on 01-02-2025 Calcium [Mass/Vol] 9.1 mg/dL 7.6-11.0 [facility] Serum or plasma urea nitroge n measurement (mass/volume)Ordered By: Florin Bowles on 01-02-2025 Urea nitrogen [Mass/Vol] 11 mg/dL 4-19 [facility] Sodium levelOrdered By: Horace Bowles on 01-02-2025 Sodium [Moles/Vol] 139 mmol/L 133-145 [facility] Total proteinOrdered By: Austin Bowles on 01-02-2025 Protein [Mass/Vol] 7.3 g/dL 5.9-8.4 [facility] White blood cell (WBC) count Ordered By: Florin Bowles on 01-02-2025 WBC (Bld) [#/Vol] 4.4 10*3/uL 4.4-11.0 [facility] CDIFF (PCR)on 12-28-2024 CDIFF Pending 027 027 NAP1-B1 Presumptive Negative *for epidemiolologic???use C. Diff PCR Negative- No toxigenic C. Diff Detected Normal [facility] Comment on above: Performed By: #### M 100.5190, M100.801, M100.3290 #### [facility] [address], [place], [address] Clostridium difficile detect ion by polymerase chain reactionOrdered By: Nathan Guzman on 12-28-2024 C. difficile DNA BAM+probe Ql (Unsp spec) [facility] ENTERIC PATHOGEN PANEL STOOL on 12-28-2024 [...] VIBRIO Not Detected Yersinia Not Detected Normal [facility] Comment on above: Performed By: #### M 100.0605, M100.637, M100.6796 #### [facility] [address], [place], [address] Stool Lactoferrin/WBCon 06-0 WBCST Normal Reference Ran ge = Negative Fecal WBC Lactoferrin A Positive: Fecal WBC Lactoferrin present A Normal [facility] Comment on above: Performed By: #### M 100.0605, M100.637, M100.6796 #### [facility] [address], [place], [address] Stool lactoferrin detection by immunoassayOrdered By: Nathan Guzman on 12-28-2024 Lactoferrin IA Ql (Stl) [facility] Bilirubin directOrdered By: Jeyson Galvan on 11-25-2024 Bilirubin.direct [Mass/Vol] 0.15 mg/dL 0.00-0.30 [facility] Bilirubin, totalOrdered By: Jeyson Galvan on 11-25-2024 Bilirubin [Mass/Vol] 0.42 mg/dL 0.00-1.[address] [facility] Calculated very low density lipoprotein (VLDL) cholesterol measurementOrdered By: Jeyson Galvan on 11-25-2024 Calculated very low density lipoprotein (VLDL) cholesterol measurement 24 mg/dL 5-40 [facility] LDL calc ser/plasOrdered By: Jeyson Galvan on 11-25-2024 Cholesterol in LDL [Mass/Vol] 174 mg/dL [facility] Comment on above: Zkbdbtvlnz=618-455 m g/dL & Higher Fahn=448 mg/dL or greater Laboratory - Chemistry and C hemistry - challengeOrdered By: Jeyson Galvan on 11-25-2024 AST [Catalytic activity/Vol] 25 U/L <32 [facility] Lipid Profileon 11-25-2024 CHOL:HDL 4.15 Normal [facility] Comment on above: Performed By: #### M 100.0605, M100.637, M196 #### [facility] [address] [place], [place], [id number] (897) Cholesterol [Mass/Vol] 260 mg/dL High <=[address] [facility] Comment on above: Result Comment: Chol esterol level, Desirable <200 mg/dL Borderline high cholesterol 200-239 mg/dL High cholesterol >=240 mg/dL Recommendations of the NCEP Adult Treatment Panel for the following risk-cutoff thresholds for the [place] population. Performed By: #### M 100.0605, M100.637, M196 #### [facility] [address] [place], [place], [id number] (043) Cholesterol in HDL [Mass/Vol] 63 mg/dL Normal [facility] Comment on above: Result Comment: Rosario onal Cholesterol Education Program (NCEP) guidelines: <40 mg/dL: Low HDL-cholesterol (major risk factor for CHD) >= 60 mg/dL: High HDL-cholesterol (negative risk factor for CHD) HDL-cholesterol is affected by a number of factors, e.g. smoking, exercise, hormones, sex and age. Performed By: #### M 100.0605, M100.637, M1.6796 #### [facility] [address] [place], [place], [id number] (145) Cholesterol in LDL [Mass/Vol] 174 mg/dL Normal [facility] Comment on above: Result Comment: Bord sdwxzj=188-267 mg/dL Higher Dxze=843 mg/dL or greater Performed By: #### M 100.0605, M100.637, M100.6796 #### [facility] [address] [place], [address] Cholesterol in VLDL [Mass/Vol] 24 mg/dL Normal 5-40 [facility] Comment on above: Performed By: #### M 100.0605, M100.637, M196 #### [facility] [address] [place], [address] Triglyceride [Mass/Vol] 118 mg/dL Normal [facility] Comment on above: Result Comment: The drugs N-Acetylcysteine and Metamizole may falsely depress this assay. Normal range: <150 mg/dL Borderline High: 150-199 mg/dL High: 200-499 mg/dL Very High: >500 mg/dL Performed By: #### M 100.0605, M100.637, M196 #### [facility] [address] [place], [address] Liver Profileon 11-25-2024 Albumin [Mass/Vol] 3.8 g/dL Normal 3.5-5.0 [facility] Comment on above: Performed By: #### M 100.0605, M100.637, .96 #### [facility] [address] [place], [address] ALK PHOS 72 U/L Normal 35-104 [facility] Comment on above: Performed By: #### M 100.0605, M100.637, M1.6796 #### [facility] [address] [place], [address] ALT [Catalytic activity/Vol] 21 U/L Normal <=34 [facility] Comment on above: Performed By: #### M 100.0605, M100.637, M100.6796 #### [facility] [address] [place], [address] AST [Catalytic activity/Vol] 25 U/L Normal <=31 [facility] Comment on above: Performed By: #### M 100.0605, M100.637, M100.6796 #### [facility] [address] [place], [address] Bilirubin [Mass/Vol] 0.42 mg/dL Normal 0.00-1.[address] [facility] Comment on above: Performed By: #### M 100.0605, M100.637, M100.6796 #### [facility] [address] [place], [address] Bilirubin.direct [Mass/Vol] 0.15 mg/dL Normal 0.00-0.30 [facility] Comment on above: Performed By: #### M 100.0605, M100.637, M100.6796 #### [facility] [address] [place], [address] Globulin (S) [Mass/Vol] 2.9 g/dL Normal 2.2-4.2 [facility] Comment on above: Performed By: #### M 100.0605, M100.637, M100.6796 #### [facility] [address] [place], [address] T PROT 6.7 g/dL Normal 5.9-8.4 [facility] Comment on above: Performed By: #### M 100.0605, M100.637, M100.6796 #### [facility] [address] [place], [address] Screening total cholesterol/ high density lipoprotein (HDL) cholesterol ratioOrdered By: Jeyson Galvan on 11-25-2024 Cholesterol.total/Chol esterol in HDL [Mass ratio] 4.15 {ratio} [facility] Serum globulin measurementOr dered By: Jeyson Galvan on 11-25-2024 Globulin (S) [Mass/Vol] 2.9 g/dL 2.2-4.2 [facility] Serum or plasma alanine jeronimo otransferase (ALT) measurementOrdered By: Jeyson Galvan on 11-25-2024 ALT [Catalytic activity/Vol] 21 U/L <35 [facility] Serum or plasma albumin francois urement (mass/volume)Ordered By: Jeyson Galvan on 11-25-2024 Albumin [Mass/Vol] 3.8 g/dL 3.5-5.0 [facility] Serum or plasma alkaline dileep sphatase measurementOrdered By: Jeyson Galvan on 11-25-2024 ALP [Catalytic activity/Vol] 72 U/L 35-104 [facility] Serum or plasma cholesterol in HDL measurement (mass/volume)Ordered By: Jeyson Galvan on 11-25-2024 Cholesterol in HDL [Mass/Vol] 63 mg/dL >40 [facility] Comment on above: National Cholesterol Education Program (NCEP) guidelines:<40 mg/dL: Low HDL-cholesterol (major risk factor for CHD)>= 60 mg/dL: High HDL-cholesterol (negative risk factor for CHD)HDL-cholesterol is affected by a number of factors, e.g. smoking, exercise, hormones, sex and age. Serum or plasma cholesterol measurement (mass/volume)Ordered By: Jeyson Galvan on 11-25-2024 Cholesterol [Mass/Vol] 260 mg/dL High <[address] [facility] Comment on above: Cholesterol level, D esirable <200 mg/dLBorderline high cholesterol 200-239 mg/dLHigh cholesterol >=240 mg/dLRecommendations of the NCEP Adult Treatment Panel for the following risk-cutoff thresholds for the [place] population. Total proteinOrdered By: Олег Galvan on 11-25-2024 Protein [Mass/Vol] 6.7 g/dL 5.9-8.4 [facility] Triglycerides measurementOrd ered By: Jeyson Galvan on 11-25-2024 Triglyceride [Mass/Vol] 118 mg/dL <199 [facility] Comment on above: The drugs N-Acetylcy steine and Metamizole may falsely depress this assay. Normal range: <150 mg/dLBorderline High: 150-199 mg/dLHigh: 200-499 mg/dLVery High: >500 mg/dL CNPTOUTREACHon 10-22-2024 CNPTOUTREACH Normal [facility] Calculated very low density lipoprotein (VLDL) cholesterol measurementOrdered By: Malika Samuels on 09-23-2024 Calculated very low density lipoprotein (VLDL) cholesterol measurement 41 mg/dL High 5-40 [facility] VLDL Cholesterol 41 mg/dL High 5-40 [facility] Cardiology Visit Reporton Cardiology Visit Report [facility] [address] [place] [address] OFFICE VISIT Date of Service: 09/23/24 MR#: [id number] Acct: [id number] Name: CAMMIE BHAT Rep #: [id number] : 1970 Provider: Dr. 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 Normal [facility] LDL calc ser/plasOrdered By: Malika Samuels on 09-23-2024 Cholesterol in LDL [Mass/Vol] 138 mg/dL [facility] Comment on above: Asclkfzaqo=811-446 m g/dL & Higher Njsg=273 mg/dL or greater LDL Cholesterol, Calculated 138 mg/dL [facility] Comment on above: Htihqlcunz=475-446 m g/dL & Higher Ndhs=134 mg/dL or greater Lipid Profileon 09-23-2024 CHOL:HDL 3.45 Normal [facility] Comment on above: Performed By: #### L 984.5990 #### [facility] [place], [address] Cholesterol [Mass/Vol] 252 mg/dL High <=[address] [facility] Comment on above: Result Comment: Chol esterol level, Desirable <200 mg/dL Borderline high cholesterol 200-239 mg/dL High cholesterol >=240 mg/dL Recommendations of the NCEP Adult Treatment Panel for the following risk-cutoff thresholds for the [place] population. Performed By: #### L 500.4100 #### [facility] [address] [place], [address] Cholesterol in HDL [Mass/Vol] 73 mg/dL Normal [facility] Comment on above: Result Comment: Rosario onal Cholesterol Education Program (NCEP) guidelines: <40 mg/dL: Low HDL-cholesterol (major risk factor for CHD) >= 60 mg/dL: High HDL-cholesterol (negative risk factor for CHD) HDL-cholesterol is affected by a number of factors, e.g. smoking, exercise, hormones, sex and age. Performed By: #### L 500.4100 #### [facility] [address] [place], [address] Cholesterol in LDL [Mass/Vol] 138 mg/dL Normal [facility] Comment on above: Result Comment: Bord ztzcva=589-271 mg/dL Higher Xodk=011 mg/dL or greater Performed By: #### L 500.4100 #### [facility] [address] [place], [address] Cholesterol in VLDL [Mass/Vol] 41 mg/dL High 5-40 [facility] Comment on above: Performed By: #### L 500.4100 #### [facility] [address] [place], [address] Triglyceride [Mass/Vol] 204 mg/dL High [facility] Comment on above: Result Comment: The drugs N-Acetylcysteine and Metamizole may falsely depress this assay. Normal range: <150 mg/dL Borderline High: 150-199 mg/dL High: 200-499 mg/dL Very High: >500 mg/dL Performed By: #### L 500.4100 #### [facility] [address] [place], [address] Screening total cholesterol/ high density lipoprotein (HDL) cholesterol ratioOrdered By: Malika Samuels on 09-23-2024 Cholesterol.total/Chol esterol in HDL [Mass ratio] 3.45 {ratio} [facility] Serum or plasma cholesterol in HDL measurement (mass/volume)Ordered By: Malika Samuels on 09-23-2024 Cholesterol in HDL [Mass/Vol] 73 mg/dL >40 [facility] Comment on above: National Cholesterol Education Program (NCEP) guidelines:<40 mg/dL: Low HDL-cholesterol (major risk factor for CHD)>= 60 mg/dL: High HDL-cholesterol (negative risk factor for CHD)HDL-cholesterol is affected by a number of factors, e.g. smoking, exercise, hormones, sex and age. Serum or plasma cholesterol measurement (mass/volume)Ordered By: Malika Samuels on 09-23-2024 Cholesterol [Mass/Vol] 252 mg/dL High <[address] [facility] Comment on above: Cholesterol level, D esirable <200 mg/dLBorderline high cholesterol 200-239 mg/dLHigh cholesterol >=240 mg/dLRecommendations of the NCEP Adult Treatment Panel for the following risk-cutoff thresholds for the [place] population. Triglycerides measurementOrd ered By: Malika Samuels on 09-23-2024 Triglyceride [Mass/Vol] 204 mg/dL High <199 [facility] Comment on above: The drugs N-Acetylcy steine and Metamizole may falsely depress this assay. Normal range: <150 mg/dLBorderline High: 150-199 mg/dLHigh: 200-499 mg/dLVery High: >500 mg/dL Urine Cultureon 08-19-2024 URC Culture exhibits no growth. Normal [facility] Comment on above: Performed By: #### M 100.0605, M100.637, M100.6796 #### [facility] [address] [place], [place], [id number] Urine cultureOrdered By: Radha Guzman on 08-18-2024 Bacteria identified Cx Nom (U) Culture exhibits no growth. [facility] CR - History AND Physicalon 06-17-2024 CR - History & Physical [facility] [address] [place] [address] CR - History Physical MR#: [id number] Acct: [id number] Name: CAMMIE BHAT Rep #: [id number] : 1970 53 From: Kavin Rome BS, RVT PCP: Dr. 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 Normal [facility] SCRN MAMM (CAD)W/EMETERIO BILATo n 06-17-2024 SCRN MAMM (CAD)W/EMETERIO BILAT [facility] Imaging Services [address] [place], [place] [address] SCRN MAMM (CAD)W/EMETERIO BILAT MR#: [id number] Acct: [id number] Name: CAMMIE BHAT Rep #: [id number] : 1970 F 53 From: Geoff linares MD PCP: Dr. Nathan Guzman DO Status: [facility] Study: SCRN MAMM (CAD)W/EMETERIO BILAT Date of Exam: 05/29 08/20 Exam# [id number] Ordering Dr: Nathan Guzman DO [id number] MAMMOGRAPHY - BILATERAL SCREENING REASON FOR EXAM: [...] delay biopsy of a clinically suspicious abnormality. [id number] Electronically Signed: Geoff Andrew MD at 15:30 EST , CC: Dr. Nathan Guzman, DO Chief Juvenile Probation Officer: Signed Normal [facility] CNPTOUTREACHon 05-28-2024 CNPTOUTREA Normal [facility] Lipid Profileon 05-27-2024 Cholesterol [Mass/Vol] 248 mg/dL High [address] [facility] Comment on above: Result Comment: <200 mg/dL Desirable 200-240 mg/dL Borderline >240 mg/dL High Risk Performed By: #### M 100.0605, M100.637, M100.6796 #### [facility] [address] [place], [address] Cholesterol in HDL [Mass/Vol] 70 mg/dL Normal [facility] Comment on above: Result Comment: The drugs N-Acetylcysteine and Metamizole may falsely depress this assay. Reference Range HDL <40 mg/dL Low HDL Cholesterol HDL >or= 60 mg/dL High HDL Cholesterol Performed By: #### M 100.0605, M100.637, M100.6796 #### [facility] [address] [place], [address] Cholesterol in LDL [Mass/Vol] 144 mg/dL High 0-130 [facility] Comment on above: Performed By: #### M 100.0605, M100.637, M100.6796 #### [facility] [address] [place], [address] Cholesterol in VLDL [Mass/Vol] 34 mg/dL Normal 5-40 [facility] Comment on above: Performed By: #### M 100.0605, M100.637, M100.6796 #### [facility] [address] [place], [address] Triglyceride [Mass/Vol] 170 mg/dL Normal [facility] Comment on above: Result Comment: The drugs N-Acetylcysteine and Metamizole may falsely depress this assay. Serum Triglycerides Reference Interval Normal <150 mg/dL Borderline high 150 - 199 mg/dL High 200 - 499 mg/dL Very High > or = 500 mg/dL Performed By: #### M 100.0605, M100.637, M100.6796 #### [facility] [address] [place], [address] Thyroid Stim Hormone (TSH)on 05-27-2024 TSH 2.930 uIU/mL Normal 0.358-3.740 [facility] Comment on above: Performed By: #### M 100.0605, M100.637, M100.6796 #### [facility] [address] [place], [address] Cardiology Visit Reporton Cardiology Visit Report [facility] [place] [facility] [address] [place] [address] OFFICE VISIT Date of Service: 05/25/24 MR#: [id number] Acct: [id number] Name: CAMMIE BHAT Rep #: [id number] : 1970 Provider: Dr. Malika Samuels MD Age/Sex: 53/F Location: [facility] Status: Signed [facility] History of Present Illness Details: Cammie has had her mitral valve repair surgery done last month at the [facility]. Uneventful postop recovery. 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 Normal [facility] Echo Completeon 05-24-2024 Echo [facility] [address] [place] [address] Echo Complete 05/24/24 1408 MR#: [id number] Acct: [id number] Name: CAMMIE BHAT Rep #: [id number] : 1970 53 From: Malika Samuels MD Attending Dr: SAM AnthonyC Status: REG CLI Ordering Dr: Jeyson Galvan NP EMPLOYEE BENEFITS COORDINATOR-C Date: 05/24/24 Location: [facility] Sex: F C Admitted: Reason [...] E' Vicky: 5.4 cm/sec MV A max vicky: 122.6 cm/sec E/E' lat: 16.2 E/E' med: [...] Galvan Referring Physician: Nathan Guzman Performed By: Cnade Gibbons RDCS and Student 05/26/24 1003 Date Malika Samuels MD CC: EMPLOYEE BENEFITS COORDINATOR-C Jeyson Galvan; Dr. Nathan Guzman DO Date Dictated: 05/24/24 1408 Date Transcribed: 05/26/24 1003 Chief Juvenile Probation Officer: Signed Normal [facility] C[facility]N Normal [facility] CNPNon 05-10-2024 CNPN Normal [facility] CNPNon 04-30-2024 CNPN Normal [facility] CNPNon 04-28-2024 CNPN Normal [facility] CBC panel Auto (Bld)on 04-27 Erythrocyte distribution width (RBC) [Ratio] 12.3 % Normal 11.5-15.0 [facility] Comment on above: Order Comment: Speci men Type: BLOOD SPECIMENOrdering Facility: [facility] Address: [address] [place] [address] Performed By: #### 5 8410-2 ####[facility] [id number] [place] [address] [place] Hematocrit (Bld) [Volume fraction] 38.4 % Normal 36.0-46.0 [facility] Comment on above: Order Comment: Speci men Type: BLOOD SPECIMENOrdering Facility: [facility] Address: [address] [place] [address] Performed By: #### 5 8410-2 ####[facility] [id number] [place] [address] [place] Hemoglobin (Bld) [Mass/Vol] 12.9 g/dL Normal 11.5-15.5 [facility] Comment on above: Order Comment: Speci men Type: BLOOD SPECIMENOrdering Facility: [facility] Address: [address] [place] [address] Performed By: #### 5 8410-2 ####[facility] [id number] [place] [address] [place] MCH (RBC) [Entitic mass] 33.8 pg Normal 26.0-34.0 [facility] Comment on above: Order Comment: Speci men Type: BLOOD SPECIMENOrdering Facility: [facility] Address: [address] [place] [address] Performed By: #### 5 8410-2 ####[facility] [id number] [place] [address] [place] MCHC (RBC) [Mass/Vol] 33.6 g/dL Normal 30.5-36.0 [facility] Comment on above: Order Comment: Speci men Type: BLOOD SPECIMENOrdering Facility: [facility] Address: [address] [place] [address] Performed By: #### 5 8410-2 ####[facility] [id number] [place] [address] [place] MCV (RBC) [Entitic vol] 100.5 fL High 80.0-100.0 [facility] Comment on above: Order Comment: Speci men Type: BLOOD SPECIMENOrdering Facility: [facility] Address: [address] [place] [address] Performed By: #### 5 8410-2 ####[facility] [id number] [place] [address] [place] Nucleated RBC (Bld) [#/Vol] 10*3/uL Normal <0.01 [facility] Comment on above: Order Comment: Speci men Type: BLOOD SPECIMENOrdering Facility: [facility] Address: [address] [place] [address] Performed By: #### 5 8410-2 ####[facility] [id number] [place] [address] [place] Platelet mean volume (Bld) [Entitic vol] 9.5 fL Normal 9.0-12.7 [facility] Comment on above: Order Comment: Speci men Type: BLOOD SPECIMENOrdering Facility: [facility] Address: [address] [place] [address] Performed By: #### 5 8410-2 ####[facility] [id number] [place] [address] [place] Platelets (Bld) [#/Vol] 604 10*3/uL High 150-400 [facility] Comment on above: Order Comment: Speci men Type: BLOOD SPECIMENOrdering Facility: [facility] Address: [address] [place] [address] Performed By: #### 5 8410-2 ####[facility] [id number] [place] [address] [place] RBC (Bld) [#/Vol] 3.82 10*6/uL Low 3.90-5.20 [facility] Comment on above: Order Comment: Speci men Type: BLOOD SPECIMENOrdering Facility: [facility] Address: [address] [place] [address] Performed By: #### 5 8410-2 ####[facility] [id number] [place] [address] [place] WBC (Bld) [#/Vol] 9.41 10*3/uL Normal 3.70-11.00 [facility] Comment on above: Order Comment: Speci men Type: BLOOD SPECIMENOrdering Facility: [facility] Address: [address] [place] [address] Performed By: #### 5 8410-2 ####[facility] [id number] [place] [address] [place] CNOVon 04-27-2024 CNOV Normal [facility] Comprehensive metabolic 2000 panelon 04-27-2024 Albumin [Mass/Vol] 3.8 g/dL Low 3.9-4.9 [facility] Comment on above: Order Comment: Speci men Type: BLOOD SPECIMENOrdering Facility: [facility] Address: [address] [place] [address] Performed By: #### 2 4323-8 ####[facility] [id number] [id number] [address] [place] ALP [Catalytic activity/Vol] 92 U/L Normal 34-123 [facility] Comment on above: Order Comment: Speci men Type: BLOOD SPECIMENOrdering Facility: [facility] Address: [address] [place] [address] Performed By: #### 2 4323-8 ####[facility] [id number] [place] [address] [place] ALT [Catalytic activity/Vol] 15 U/L Normal 7-38 [facility] Comment on above: Order Comment: Speci men Type: BLOOD SPECIMENOrdering Facility: [facility] Address: [address] [place] [address] Performed By: #### 2 4323-8 ####[facility] LABCLIA [id number] [place] [address] [place] Anion gap [Moles/Vol] 12 mmol/L Normal 8-15 [facility] Comment on above: Order Comment: Speci men Type: BLOOD SPECIMENOrdering Facility: [facility] Address: [address] [place] [address] Performed By: #### 2 4323-8 ####[facility]CL[facility] [id number] [place] [address] [place] AST [Catalytic activity/Vol] 24 U/L Normal 13-35 [facility] Comment on above: Order Comment: Speci men Type: BLOOD SPECIMENOrdering Facility: [facility] Address: [address] [place] [address] Performed By: #### 2 4323-8 ####[facility]CL[facility] [id number] [place] [address] [place] Bilirubin [Mass/Vol] 0.2 mg/dL Normal 0.2-1.3 [facility] Comment on above: Order Comment: Speci men Type: BLOOD SPECIMENOrdering Facility: [facility] Address: [address] [place] [address] Performed By: #### 2 4323-8 ####[facility]CL[facility] [id number] [place] [address] [place] Calcium [Mass/Vol] 9.8 mg/dL Normal 8.5-10.2 [facility] Comment on above: Order Comment: Speci men Type: BLOOD SPECIMENOrdering Facility: [facility] Address: [address] [place] [address] Performed By: #### 2 4323-8 ####[facility]CL[facility] [id number] [place] [address] [place] Chloride [Moles/Vol] 104 mmol/L Normal 98-107 [facility] Comment on above: Order Comment: Speci men Type: BLOOD SPECIMENOrdering Facility: [facility] Address: [address] [place] [address] Performed By: #### 2 4323-8 ####[facility]CL[facility] [id number] [place] [address] [place] CO2 [Moles/Vol] 23 mmol/L Normal 22-30 [facility] Comment on above: Order Comment: Speci men Type: BLOOD SPECIMENOrdering Facility: [facility] Address: [address] [place] [address] Performed By: #### 2 4323-8 ####[facility]CL[facility] [id number] [place] [address] [place] Creatinine [Mass/Vol] 0.76 mg/dL Normal 0.58-0.96 [facility] Comment on above: Order Comment: Speci men Type: BLOOD SPECIMENOrdering Facility: [facility] Address: [address] [place] [address] Performed By: #### 2 4323-8 ####[facility]CL[facility] [id number] [place] [address] [place] Creatinine and Glomerular filtration rate.predicted panel (S/P/Bld) 93 mL/min/1.73m??? Normal >=60 [facility] Comment on above: Order Comment: Jovanny kwon Type: BLOOD SPECIMENOrdering Facility: [facility] Address: [address] [place] [address] Result Comment: Brandy mated Glomerular Filtration Rate [...] actual GFR. Performed By: #### 2 4323-8 ####[facility]CL[facility] [id number] [place] [address] [place] Glucose [Mass/Vol] 111 mg/dL High 74-99 [facility] Comment on above: Order Comment: Jovanny kwon Type: BLOOD SPECIMENOrdering Facility: [facility] Address: [address] [place] [address] Result Comment: The [place] [employer] (ADA) provides guidance for cutoff [...] Standards of Medical Care in Diabetes 2016, [place] [employer]. Diabetes Care. 2016.39(Suppl 1). Performed By: #### 2 4323-8 ####[facility] LABIA [id number] [place] [address] [place] Potassium [Moles/Vol] 4.1 mmol/L Normal 3.7-5.1 [facility] Comment on above: Order Comment: Speci men Type: BLOOD SPECIMENOrdering Facility: [facility] Address: [address] [place] [address] Performed By: #### 2 4323-8 ####[facility]CL[facility] [id number] [place] [address] [place] Protein [Mass/Vol] 7.6 g/dL Normal 6.3-8.0 [facility] Comment on above: Order Comment: Speci men Type: BLOOD SPECIMENOrdering Facility: [facility] Address: [address] [place] [address] Performed By: #### 2 4323-8 ####[facility]CL[facility] [id number] [place] [address] [place] Sodium [Moles/Vol] 139 mmol/L Normal 136-144 [facility] Comment on above: Order Comment: Speci men Type: BLOOD SPECIMENOrdering Facility: [facility] Address: [address] [place] [address] Performed By: #### 2 4323-8 ####[facility]CL[facility] [id number] [place] [address] [place] Urea nitrogen [Mass/Vol] 10 mg/dL Normal 7-21 [facility] Comment on above: Order Comment: Speci men Type: BLOOD SPECIMENOrdering Facility: [facility] Address: [address] [place] [address] Performed By: #### 2 4323-8 ####[facility]CL[facility] [id number] [place] [id number] [place] SLE32nm 04-27-2024 ECG01 Normal [facility] XR CHEST 2V FRONTAL/LATon XR CHEST 2V FRONTAL/LAT Normal [facility] XR Chest PA and Lateralon IMPRESSION: See result Chief Juvenile Probation Officer: CHERYL Transcribe Date/Time: Apr 27 2024 3:19P Dictated by : KESHAV MACIAS MD This examination was interpreted and the report reviewed and electronically signed by: KESHAV MACIAS MD on Apr 27 2024 3:21PM [facility] DIVISION OF RADIOLOGY * * *Final Report* [...] soft tissues: Unremarkable. DIVISION OF RADIOLOGY Provider, [facility] - 04/27/2024 * * *Final Report* * [...] soft tissues: Unremarkable. IMPRESSION IMPRESSION: See result Chief Juvenile Probation Officer: CHERYL Transcribe Date/Time: Apr 27 2024 3:19P Dictated by : KESHAV MACIAS MD This examination was interpreted and the report reviewed and electronically signed by: KESHAV MACIAS MD on Apr 27 2024 3:21PM EST [facility] Radiology Study observation (narrative) [facility] XR Chest PA and LateralOrder ed By: [facility] Provider on 04-27-2024 [facility] C[facility]N Normal [facility] CNPNon 04-21-2024 CNPN Normal [facility] 04-[facility]-2024 CNPN Normal [facility] CBC panel Auto (Bld)on 04-18 Erythrocyte distribution width (RBC) [Ratio] 12.5 % Normal 11.5-15.0 [facility] Comment on above: Order Comment: Speci men Type: BLOOD SPECIMENOrdering Facility: [facility] Address: [address] [place] [address] Performed By: #### 5 8410-2 ####[facility] LABIA [id number] [place] [address] [place] Hematocrit (Bld) [Volume fraction] 31.8 % Low 36.0-46.0 [facility] Comment on above: Order Comment: Speci men Type: BLOOD SPECIMENOrdering Facility: [facility] Address: [address] [place] [address] Performed By: #### 5 8410-2 ####[facility] LABIA [id number] [place] [address] [place] Hemoglobin (Bld) [Mass/Vol] 10.2 g/dL Low 11.5-15.5 [facility] Comment on above: Order Comment: Speci men Type: BLOOD SPECIMENOrdering Facility: [facility] Address: [address] [place] [address] Performed By: #### 5 8410-2 ####[facility] LABIA [id number] [place] [address] [place] MCH (RBC) [Entitic mass] 32.4 pg Normal 26.0-34.0 [facility] Comment on above: Order Comment: Speci men Type: BLOOD SPECIMENOrdering Facility: [facility] Address: [address] [place] [address] Performed By: #### 5 8410-2 ####[facility] LABIA [id number] [place] [address] [place] MCHC (RBC) [Mass/Vol] 32.1 g/dL Normal 30.5-36.0 [facility] Comment on above: Order Comment: Speci men Type: BLOOD SPECIMENOrdering Facility: [facility] Address: [address] [place] [address] Performed By: #### 5 8410-2 ####[facility] LABIA [id number] [place] [address] [place] MCV (RBC) [Entitic vol] 101.0 fL High 80.0-100.0 [facility] Comment on above: Order Comment: Speci men Type: BLOOD SPECIMENOrdering Facility: [facility] Address: [address] [place] [address] Performed By: #### 5 8410-2 ####[facility] LABIA [id number] [place] [address] [place] Nucleated RBC (Bld) [#/Vol] 10*3/uL Normal <0.01 [facility] Comment on above: Order Comment: Speci men Type: BLOOD SPECIMENOrdering Facility: [facility] Address: [address] [place] [address] Performed By: #### 5 8410-2 ####[facility] LABIA [id number] [place] [address] [place] Platelet mean volume (Bld) [Entitic vol] 9.5 fL Normal 9.0-12.7 [facility] Comment on above: Order Comment: Speci men Type: BLOOD SPECIMENOrdering Facility: [facility] Address: [address] [place] [address] Performed By: #### 5 8410-2 ####[facility] LABCLIA [id number] [place] [address] [place] Platelets (Bld) [#/Vol] 205 10*3/uL Normal 150-400 [facility] Comment on above: Order Comment: Speci men Type: BLOOD SPECIMENOrdering Facility: [facility] Address: [address] [place] [address] Performed By: #### 5 8410-2 ####[facility] LABCLIA [id number] [place] [address] [place] RBC (Bld) [#/Vol] 3.15 10*6/uL Low 3.90-5.20 [facility] Comment on above: Order Comment: Speci men Type: BLOOD SPECIMENOrdering Facility: [facility] Address: [address] [place] [address] Performed By: #### 5 8410-2 ####[facility] LABIA [id number] [place] [address] [place] WBC (Bld) [#/Vol] 6.56 10*3/uL Normal 3.70-11.00 [facility] Comment on above: Order Comment: Speci men Type: BLOOD SPECIMENOrdering Facility: [facility] Address: [address] [place] [address] Performed By: #### 5 8410-2 ####[facility] LABIA [id number] [place] [address] [place] Comprehensive metabolic 2000 panelon 04-18-2024 Albumin [Mass/Vol] 2.9 g/dL Low 3.9-4.9 [facility] Comment on above: Order Comment: Speci men Type: BLOOD SPECIMENOrdering Facility: [facility] Address: [address] [place] [address] Performed By: #### 2 4323-8 ####[facility] LABCLIA [id number] [place] [address] [place] ALP [Catalytic activity/Vol] 73 U/L Normal 34-123 [facility] Comment on above: Order Comment: Speci men Type: BLOOD SPECIMENOrdering Facility: [facility] Address: [address] [place] [id number] Performed By: #### 2 4323-8 ####[facility] LABCLIA [id number] [place] [id number] [place] ALT [Catalytic activity/Vol] 27 U/L Normal 7-38 [facility] Comment on above: Order Comment: Speci men Type: BLOOD SPECIMENOrdering Facility: [facility] Address: [address] [place] [address] Performed By: #### 2 4323-8 ####[facility] LABCLIA [id number] [place] [address] [place] Anion gap [Moles/Vol] 9 mmol/L Normal 8-15 [facility] Comment on above: Order Comment: Speci men Type: BLOOD SPECIMENOrdering Facility: [facility] Address: [address] [place] [address] Performed By: #### 2 4323-8 ####[facility] LABCLIA [id number] [place] [address] [place] AST [Catalytic activity/Vol] 21 U/L Normal 13-35 [facility] Comment on above: Order Comment: Speci men Type: BLOOD SPECIMENOrdering Facility: [facility] Address: [address] [place] [address] Performed By: #### 2 4323-8 ####[facility] LABCLIA [id number] [place] [address] [place] Bilirubin [Mass/Vol] 0.3 mg/dL Normal 0.2-1.3 [facility] Comment on above: Order Comment: Speci men Type: BLOOD SPECIMENOrdering Facility: [facility] Address: [address] [place] [address] Performed By: #### 2 4323-8 ####[facility] LABCLIA [id number] [place] [address] [place] Calcium [Mass/Vol] 8.6 mg/dL Normal 8.5-10.2 [facility] Comment on above: Order Comment: Speci men Type: BLOOD SPECIMENOrdering Facility: [facility] Address: [address] [place] [address] Performed By: #### 2 4323-8 ####[facility] LABCLIA [id number] [place] [address] [place] Chloride [Moles/Vol] 105 mmol/L Normal 98-107 [facility] Comment on above: Order Comment: Speci men Type: BLOOD SPECIMENOrdering Facility: [facility] Address: [address] [place] [address] Performed By: #### 2 4323-8 ####[facility] LABCLIA [id number] [place] [address] [place] CO2 [Moles/Vol] 22 mmol/L Normal 22-30 [facility] Comment on above: Order Comment: Speci men Type: BLOOD SPECIMENOrdering Facility: [facility] Address: [address] [place] [address] Performed By: #### 2 4323-8 ####[facility] LABCLIA [id number] [place] [address] [place] Creatinine [Mass/Vol] 0.70 mg/dL Normal 0.58-0.96 [facility] Comment on above: Order Comment: Speci men Type: BLOOD SPECIMENOrdering Facility: [facility] Address: [address] [place] [address] Performed By: #### 2 4323-8 ####[facility] LABCLIA [id number] [place] [address] [place] Creatinine and Glomerular filtration rate.predicted panel (S/P/Bld) 103 mL/min/1.73m??? Normal >=60 [facility] Comment on above: Order Comment: Jovanny kwon Type: BLOOD SPECIMENOrdering Facility: [facility] Address: [address] [place] [address] Result Comment: Brandy mated Glomerular Filtration Rate [...] actual GFR. Performed By: #### 2 4323-8 ####[facility] LABIA [id number] [place] [address] [place] Glucose [Mass/Vol] 100 mg/dL High 74-99 [facility] Comment on above: Order Comment: Jovanny kwon Type: BLOOD SPECIMENOrdering Facility: [facility] Address: [address] [place] [address] Result Comment: The [place] [employer] (ADA) provides guidance for cutoff [...] Standards of Medical Care in Diabetes 2016, [place] [employer]. Diabetes Care. 2016.39(Suppl 1). Performed By: #### 2 4323-8 ####[facility] LABIA [id number] [place] [address] [place] Potassium [Moles/Vol] 3.5 mmol/L Low 3.7-5.1 [facility] Comment on above: Order Comment: Jovanny kwon Type: BLOOD SPECIMENOrdering Facility: [facility] Address: [address] [place] [address] Performed By: #### 2 4323-8 ####[facility] LABCLIA [id number] [place] [address] [place] Protein [Mass/Vol] 5.8 g/dL Low 6.3-8.0 [facility] Comment on above: Order Comment: Speci men Type: BLOOD SPECIMENOrdering Facility: [facility] Address: [address] [place] [address] Performed By: #### 2 4323-8 ####[facility] LABCLIA [id number] [place] [address] [place] Sodium [Moles/Vol] 136 mmol/L Normal 136-144 [facility] Comment on above: Order Comment: Speci men Type: BLOOD SPECIMENOrdering Facility: [facility] Address: [address] [place] [address] Performed By: #### 2 4323-8 ####[facility] LABCLIA [id number] [place] [address] [place] Urea nitrogen [Mass/Vol] 10 mg/dL Normal 7-21 [facility] Comment on above: Order Comment: Speci men Type: BLOOD SPECIMENOrdering Facility: [facility] Address: [address] [place] [address] Performed By: #### 2 4323-8 ####[facility] LABCLIA [id number] [place] [id number] [place] CBC panel Auto (Bld)on 04-17 Erythrocyte distribution width (RBC) [Ratio] 12.4 % Normal 11.5-15.0 [facility] Comment on above: Order Comment: Speci men Type: BLOOD SPECIMENOrdering Facility: [facility] Address: [address] [place] [address] Performed By: #### 5 8410-2 ####[facility] LABCLIA [id number] [place] [address] [place] Hematocrit (Bld) [Volume fraction] 34.3 % Low 36.0-46.0 [facility] Comment on above: Order Comment: Speci men Type: BLOOD SPECIMENOrdering Facility: [facility] Address: [address] [place] [address] Performed By: #### 5 8410-2 ####[facility] LABIA [id number] [place] [address] [place] Hemoglobin (Bld) [Mass/Vol] 11.0 g/dL Low 11.5-15.5 [facility] Comment on above: Order Comment: Speci men Type: BLOOD SPECIMENOrdering Facility: [facility] Address: [address] [place] [address] Performed By: #### 5 8410-2 ####[facility] LABIA [id number] [place] [address] [place] MCH (RBC) [Entitic mass] 33.2 pg Normal 26.0-34.0 [facility] Comment on above: Order Comment: Speci men Type: BLOOD SPECIMENOrdering Facility: [facility] Address: [address] [place] [address] Performed By: #### 5 8410-2 ####[facility] LABIA [id number] [place] [address] [place] MCHC (RBC) [Mass/Vol] 32.1 g/dL Normal 30.5-36.0 [facility] Comment on above: Order Comment: Speci men Type: BLOOD SPECIMENOrdering Facility: [facility] Address: [address] [place] [address] Performed By: #### 5 8410-2 ####[facility] LABIA [id number] [place] [address] [place] MCV (RBC) [Entitic vol] 103.6 fL High 80.0-100.0 [facility] Comment on above: Order Comment: Speci men Type: BLOOD SPECIMENOrdering Facility: [facility] Address: [address] [place] [address] Performed By: #### 5 8410-2 ####[facility] LABCLIA [id number] [place] [address] [place] Nucleated RBC (Bld) [#/Vol] 10*3/uL Normal <0.01 [facility] Comment on above: Order Comment: Speci men Type: BLOOD SPECIMENOrdering Facility: [facility] Address: [address] [place] [address] Performed By: #### 5 8410-2 ####[facility] LABIA [id number] [place] [address] [place] Platelet mean volume (Bld) [Entitic vol] 10.2 fL Normal 9.0-12.7 [facility] Comment on above: Order Comment: Speci men Type: BLOOD SPECIMENOrdering Facility: [facility] Address: [address] [place] [address] Performed By: #### 5 8410-2 ####[facility] LABIA [id number] [place] [address] [place] Platelets (Bld) [#/Vol] 174 10*3/uL Normal 150-400 [facility] Comment on above: Order Comment: Speci men Type: BLOOD SPECIMENOrdering Facility: [facility] Address: [address] [place] [address] Performed By: #### 5 8410-2 ####[facility] LABIA [id number] [place] [address] [place] RBC (Bld) [#/Vol] 3.31 10*6/uL Low 3.90-5.20 [facility] Comment on above: Order Comment: Speci men Type: BLOOD SPECIMENOrdering Facility: [facility] Address: [address] [place] [address] Performed By: #### 5 8410-2 ####[facility] LABCLIA [id number] [place] [address] [place] WBC (Bld) [#/Vol] 7.83 10*3/uL Normal 3.70-11.00 [facility] Comment on above: Order Comment: Speci men Type: BLOOD SPECIMENOrdering Facility: [facility] Address: [address] [place] [address] Performed By: #### 5 8410-2 ####[facility] LABCLIA [id number] [place] [address] [place] Comprehensive metabolic 2000 panelon 04-17-2024 Albumin [Mass/Vol] 3.2 g/dL Low 3.9-4.9 [facility] Comment on above: Order Comment: Speci men Type: BLOOD SPECIMENOrdering Facility: [facility] Address: [address] [place] [address] Performed By: #### 2 4323-8 ####[facility] LABCLIA [id number] [place] [address] [place] ALP [Catalytic activity/Vol] 79 U/L Normal 34-123 [facility] Comment on above: Order Comment: Speci men Type: BLOOD SPECIMENOrdering Facility: [facility] Address: [address] [place] [address] Performed By: #### 2 4323-8 ####[facility] LABCLIA [id number] [place] [id number] [place] ALT [Catalytic activity/Vol] 40 U/L High 7-38 [facility] Comment on above: Order Comment: Speci men Type: BLOOD SPECIMENOrdering Facility: [facility] Address: [address] [place] [address] Performed By: #### 2 4323-8 ####[facility] LABCLIA [id number] [address] [address] [place] Anion gap [Moles/Vol] 10 mmol/L Normal 8-15 [facility] Comment on above: Order Comment: Speci men Type: BLOOD SPECIMENOrdering Facility: [facility] Address: [address] [place] [address] Performed By: #### 2 4323-8 ####[facility] LABCLIA [id number] [place] [address] [place] AST [Catalytic activity/Vol] 52 U/L High 13-35 [facility] Comment on above: Order Comment: Speci men Type: BLOOD SPECIMENOrdering Facility: [facility] Address: [address] [place] [address] Performed By: #### 2 4323-8 ####[facility] LABCLIA [id number] [place] [address] [place] Bilirubin [Mass/Vol] 0.4 mg/dL Normal 0.2-1.3 [facility] Comment on above: Order Comment: Speci men Type: BLOOD SPECIMENOrdering Facility: [facility] Address: [address] [place] [address] Performed By: #### 2 4323-8 ####[facility] LABCLIA [id number] [place] [address] [place] Calcium [Mass/Vol] 8.6 mg/dL Normal 8.5-10.2 [facility] Comment on above: Order Comment: Speci men Type: BLOOD SPECIMENOrdering Facility: [facility] Address: [address] [place] [address] Performed By: #### 2 4323-8 ####[facility] LABCLIA [id number] [place] [address] [place] Chloride [Moles/Vol] 104 mmol/L Normal 98-107 [facility] Comment on above: Order Comment: Speci men Type: BLOOD SPECIMENOrdering Facility: [facility] Address: [address] [place] [address] Performed By: #### 2 4323-8 ####[facility] LABCLIA [id number] [place] [address] [place] CO2 [Moles/Vol] 24 mmol/L Normal 22-30 [facility] Comment on above: Order Comment: Speci men Type: BLOOD SPECIMENOrdering Facility: [facility] Address: [address] [place] [address] Performed By: #### 2 4323-8 ####[facility] [id number] [place] [address] [place] Creatinine [Mass/Vol] 0.71 mg/dL Normal 0.58-0.96 [facility] Comment on above: Order Comment: Speci men Type: BLOOD SPECIMENOrdering Facility: [facility] Address: [address] [place] [address] Performed By: #### 2 4323-8 ####[facility] [id number] [place] [address] [place] Creatinine and Glomerular filtration rate.predicted panel (S/P/Bld) 101 mL/min/1.73m??? Normal >=60 [facility] Comment on above: Order Comment: Speci men Type: BLOOD SPECIMENOrdering Facility: [facility] Address: [address] [place] [address] Result Comment: Brandy mated Glomerular Filtration Rate [...] actual GFR. Performed By: #### 2 4323-8 ####[facility] LABCL[facility] [id number] [place] [address] [place] Glucose [Mass/Vol] 100 mg/dL High 74-99 [facility] Comment on above: Order Comment: Speci men Type: BLOOD SPECIMENOrdering Facility: [facility] Address: [address] [place] [address] Result Comment: The [place] [employer] (ADA) provides guidance for cutoff [...] Standards of Medical Care in Diabetes 2016, [place] [employer]. Diabetes Care. 2016.39(Suppl 1). Performed By: #### 2 4323-8 ####[facility] LABCL[facility] [id number] [place] [address] [place] Potassium [Moles/Vol] 4.1 mmol/L Normal 3.7-5.1 [facility] Comment on above: Order Comment: Jovanny kwon Type: BLOOD SPECIMENOrdering Facility: [facility] Address: [address] [place] [address] Performed By: #### 2 4323-8 ####[facility]CL[facility] [id number] [place] [address] [place] Protein [Mass/Vol] 6.1 g/dL Low 6.3-8.0 [facility] Comment on above: Order Comment: Speci men Type: BLOOD SPECIMENOrdering Facility: [facility] Address: [address] [place] [address] Performed By: #### 2 4323-8 ####[facility]CL[facility] [id number] [place] [address] [place] Sodium [Moles/Vol] 138 mmol/L Normal 136-144 [facility] Comment on above: Order Comment: Speci men Type: BLOOD SPECIMENOrdering Facility: [facility] Address: [address] [place], [place] [address] Performed By: #### 2 4323-8 ####[facility] LABCL[facility] [id number] [address] [address] [place] Urea nitrogen [Mass/Vol] 7 mg/dL Normal 7- [facility] Comment on above: Order Comment: Speci men Type: BLOOD SPECIMENOrdering Facility: [facility] Address: [address] [place] [address] Performed By: #### 2 4323-8 ####[facility]CL[facility] [id number] [place] [address] [place] Urinalysis complete panel (U )on 04-17-2024 BACTERIA UL 3312.2 uL High Negative [facility] Comment on above: Order Comment: Speci men Type: URINE SPECIMENOrdering Facility: [facility] Address: [address] [place] [address] Performed By: #### 2 4356-8 ####[facility] [id number] [place] [address] [place] Bilirubin Ql (U) Negative Normal Negative [facility] Comment on above: Order Comment: Speci men Type: URINE SPECIMENOrdering Facility: [facility] Address: [address] [place] [address] Performed By: #### 2 4356-8 ####[facility] [id number] [place] [address] [place] Clarity (Unsp spec) Clear Normal Clear [facility] Comment on above: Order Comment: Speci men Type: URINE SPECIMENOrdering Facility: [facility] Address: [address] [place], [place] [address] Performed By: #### 2 4356-8 ####[facility]CL[facility] [id number] [place] [address] [place] Color (U) Yellow Normal Yellow [facility] Comment on above: Order Comment: Speci men Type: URINE SPECIMENOrdering Facility: [facility] Address: [address] [place] [address] Performed By: #### 2 4356-8 ####[facility]CL[facility] [id number] [place] [address] [place] Epithelial cells LM.HPF (Urine sed) [#/Area] Moderate Normal [facility] Comment on above: Order Comment: Speci men Type: URINE SPECIMENOrdering Facility: [facility] Address: [address] [place] [address] Performed By: #### 2 4356-8 ####[facility]CL[facility] [id number] [place] [address] [place] Glucose Test strip (U) [Mass/Vol] Negative Normal Negative [facility] Comment on above: Order Comment: Speci men Type: URINE SPECIMENOrdering Facility: [facility] Address: [address] [place] [address] Performed By: #### 2 4356-8 ####[facility]CL[facility] [id number] [place] [address] [place] Hemoglobin Ql (U) Negative Normal Negative [facility] Comment on above: Order Comment: Speci men Type: URINE SPECIMENOrdering Facility: [facility] Address: [address] [place] [address] Performed By: #### 2 4356-8 ####[facility]CL[facility] [id number] [place] [address] [place] Hyaline casts (Urine sed) [#/Area] 0 /[LPF] Normal 0 /LPF [facility] Comment on above: Order Comment: Speci men Type: URINE SPECIMENOrdering Facility: [facility] Address: [address] [place] [address] Performed By: #### 2 4356-8 ####[facility]CL[facility] [id number] [place] [address] [place] Ketones Ql (U) Negative Normal Negative [facility] Comment on above: Order Comment: Speci men Type: URINE SPECIMENOrdering Facility: [facility] Address: [address] [place] [address] Performed By: #### 2 4356-8 ####[facility]CL[facility] [id number] [place] [address] [place] Leukocyte esterase Test strip Ql (U) Negative Normal Negative [facility] Comment on above: Order Comment: Speci men Type: URINE SPECIMENOrdering Facility: [facility] Address: [address] [place] [address] Performed By: #### 2 4356-8 ####[facility] [id number] [place] [address] [place] Nitrite Ql (U) Negative Normal Negative [facility] Comment on above: Order Comment: Speci men Type: URINE SPECIMENOrdering Facility: [facility] Address: [address] [place] [address] Performed By: #### 2 4356-8 ####[facility]CL[facility] [id number] [place] [address] [place] pH (U) 8.0 [pH] Normal <8.5 [facility] Comment on above: Order Comment: Speci men Type: URINE SPECIMENOrdering Facility: [facility] Address: [address] [place] [address] Performed By: #### 2 4356-8 ####[facility] [id number] [place] [address] [place] Protein (U) [Mass/Vol] Trace Abnormal Negative [facility] Comment on above: Order Comment: Speci men Type: URINE SPECIMENOrdering Facility: [facility] Address: [address] [place] [address] Performed By: #### 2 4356-8 ####[facility]CL[facility] [id number] [place] [address] [place] RBC LM.HPF (Urine sed) [#/Area] 0-2 /HPF Normal 0-2 /HPF [facility] Comment on above: Order Comment: Speci men Type: URINE SPECIMENOrdering Facility: [facility] Address: [address] [place] [address] Performed By: #### 2 4356-8 ####[facility] [id number] [place] [address] [place] Specific gravity (U) [Rel density] 1.019 Normal 1.005-1.030 [facility] Comment on above: Order Comment: Speci men Type: URINE SPECIMENOrdering Facility: [facility] Address: [address] [place] [address] Performed By: #### 2 4356-8 ####[facility] [id number] [place] [address] [place] Urobilinogen Ql (U) 1.0 EU/dL Normal 0.2-1.0 EU/dL [facility] Comment on above: Order Comment: Speci men Type: URINE SPECIMENOrdering Facility: [facility] Address: [address] [place] [address] Performed By: #### 2 4356-8 ####[facility] [id number] [place] [address] [place] WBC LM.HPF (Urine sed) [#/Area] 0-5 /HPF Normal 0-5 /HPF [facility] Comment on above: Order Comment: Speci men Type: URINE SPECIMENOrdering Facility: [facility] Address: [address] [place] [address] Performed By: #### 2 4356-8 ####[facility]CL[facility] [id number] [place] [address] [place] Yeast.budding LM.HPF (Urine sed) [#/Area] Present Abnormal None Seen [facility] Comment on above: Order Comment: Speci men Type: URINE SPECIMENOrdering Facility: [facility] Address: [address] [place] [address] Performed By: #### 2 4356-8 ####[facility] [id number] [place] [address] [place] ALLIED HEALTHon 04-16-2024 ALLIED HEALTH Normal [facility] CASE MANAGEMon 04-16-2024 CASE MANAGEM Normal [facility] CBC panel Auto (Bld)on 04-16 Erythrocyte distribution width (RBC) [Ratio] 12.6 % Normal 11.5-15.0 [facility] Comment on above: Order Comment: Speci men Type: BLOOD SPECIMENOrdering Facility: [facility] Address: [address] [place] [address] Performed By: #### 5 8410-2 ####[facility] [id number] [place] [address] [place] Hematocrit (Bld) [Volume fraction] 31.8 % Low 36.0-46.0 [facility] Comment on above: Order Comment: Speci men Type: BLOOD SPECIMENOrdering Facility: [facility] Address: [address] [place] [address] Performed By: #### 5 8410-2 ####[facility] [id number] [place] [address] [place] Hemoglobin (Bld) [Mass/Vol] 10.7 g/dL Low 11.5-15.5 [facility] Comment on above: Order Comment: Speci men Type: BLOOD SPECIMENOrdering Facility: [facility] Address: [address] [place] [address] Performed By: #### 5 8410-2 ####[facility]CL[facility] [id number] [place] [address] [place] MCH (RBC) [Entitic mass] 34.0 pg Normal 26.0-34.0 [facility] Comment on above: Order Comment: Speci men Type: BLOOD SPECIMENOrdering Facility: [facility] Address: [address] [place] [address] Performed By: #### 5 8410-2 ####[facility]CL[facility] [id number] [place] [address] [place] MCHC (RBC) [Mass/Vol] 33.6 g/dL Normal 30.5-36.0 [facility] Comment on above: Order Comment: Speci men Type: BLOOD SPECIMENOrdering Facility: [facility] Address: [address] [place] [address] Performed By: #### 5 8410-2 ####[facility] [id number] [place] [address] [place] MCV (RBC) [Entitic vol] 101.0 fL High 80.0-100.0 [facility] Comment on above: Order Comment: Speci men Type: BLOOD SPECIMENOrdering Facility: [facility] Address: [address] [place] [address] Performed By: #### 5 8410-2 ####[facility] [id number] [place] [address] [place] Nucleated RBC (Bld) [#/Vol] 10*3/uL Normal <0.01 [facility] Comment on above: Order Comment: Speci men Type: BLOOD SPECIMENOrdering Facility: [facility] Address: [address] [place] [address] Performed By: #### 5 8410-2 ####[facility]CL[facility] [id number] [place] [address] [place] Platelet mean volume (Bld) [Entitic vol] 10.4 fL Normal 9.0-12.7 [facility] Comment on above: Order Comment: Speci men Type: BLOOD SPECIMENOrdering Facility: [facility] Address: [address] [place] [address] Performed By: #### 5 8410-2 ####[facility]CL[facility] [id number] [place] [address] [place] Platelets (Bld) [#/Vol] 151 10*3/uL Normal 150-400 [facility] Comment on above: Order Comment: Speci men Type: BLOOD SPECIMENOrdering Facility: [facility] Address: [address] [place] [address] Performed By: #### 5 8410-2 ####[facility]CL[facility] [id number] [place] [address] [place] RBC (Bld) [#/Vol] 3.15 10*6/uL Low 3.90-5.20 [facility] Comment on above: Order Comment: Speci men Type: BLOOD SPECIMENOrdering Facility: [facility] Address: [address] [place] [address] Performed By: #### 5 8410-2 ####[facility]CL[facility] [id number] [place] [address] [place] WBC (Bld) [#/Vol] 8.30 10*3/uL Normal 3.70-11.00 [facility] Comment on above: Order Comment: Speci men Type: BLOOD SPECIMENOrdering Facility: [facility] Address: [address] [place] [address] Performed By: #### 5 8410-2 ####[facility] [id number] [place] [id number] [place] CNDSon 04-16-2024 CNDS Normal [facility] Comprehensive metabolic 2000 panelon 04-16-2024 Albumin [Mass/Vol] 3.0 g/dL Low 3.9-4.9 [facility] Comment on above: Order Comment: Speci men Type: BLOOD SPECIMENOrdering Facility: [facility] Address: [address] [place] [id number] Performed By: #### 2 4323-8 ####[facility]CL[facility] [id number] [place] [id number] [place] ALP [Catalytic activity/Vol] 64 U/L Normal 34-123 [facility] Comment on above: Order Comment: Speci men Type: BLOOD SPECIMENOrdering Facility: [facility] Address: [address] [place] [address] Performed By: #### 2 4323-8 ####[facility]CL[facility] [id number] [place] [address] [place] ALT [Catalytic activity/Vol] 35 U/L Normal 7-38 [facility] Comment on above: Order Comment: Speci men Type: BLOOD SPECIMENOrdering Facility: [facility] Address: [address] [place] [address] Performed By: #### 2 4323-8 ####[facility] [id number] [place] [address] [place] Anion gap [Moles/Vol] 10 mmol/L Normal 8-15 [facility] Comment on above: Order Comment: Speci men Type: BLOOD SPECIMENOrdering Facility: [facility] Address: [address] [place], [place] [address] Performed By: #### 2 4323-8 ####[facility] [id number] [facility] [place] [id number] [place] AST [Catalytic activity/Vol] 55 U/L High 13-35 [facility] Comment on above: Order Comment: Speci men Type: BLOOD SPECIMENOrdering Facility: [facility] Address: [address] [place], [place] [address] Performed By: #### 2 4323-8 ####[facility]CL[facility] [id number] [place] [address] [place] Bilirubin [Mass/Vol] 0.7 mg/dL Normal 0.2-1.3 [facility] Comment on above: Order Comment: Speci men Type: BLOOD SPECIMENOrdering Facility: [facility] Address: [address] [place] [address] Performed By: #### 2 4323-8 ####[facility]CL[facility] [id number] [place] [address] [place] Calcium [Mass/Vol] 8.5 mg/dL Normal 8.5-10.2 [facility] Comment on above: Order Comment: Speci men Type: BLOOD SPECIMENOrdering Facility: [facility] Address: [address] [place] [address] Performed By: #### 2 4323-8 ####[facility]CL[facility] [id number] [place] [address] [place] Chloride [Moles/Vol] 103 mmol/L Normal 98-107 [facility] Comment on above: Order Comment: Speci men Type: BLOOD SPECIMENOrdering Facility: [facility] Address: [address] [place] [address] Performed By: #### 2 4323-8 ####[facility] [id number] [place] [address] [place] CO2 [Moles/Vol] 24 mmol/L Normal 22-30 [facility] Comment on above: Order Comment: Speci men Type: BLOOD SPECIMENOrdering Facility: [facility] Address: [address] [place], [place] [address] Performed By: #### 2 4323-8 ####[facility] [id number] [place] [address] [place] Creatinine [Mass/Vol] 0.72 mg/dL Normal 0.58-0.96 [facility] Comment on above: Order Comment: Speci men Type: BLOOD SPECIMENOrdering Facility: [facility] Address: [address] [place] [address] Performed By: #### 2 4323-8 ####[facility] [id number] [place] [address] [place] Creatinine and Glomerular filtration rate.predicted panel (S/P/Bld) 100 mL/min/1.73m??? Normal >=60 [facility] Comment on above: Order Comment: Jovanny kwon Type: BLOOD SPECIMENOrdering Facility: [facility] Address: [address] [place] [address] Result Comment: Brandy mated Glomerular Filtration Rate [...] actual GFR. Performed By: #### 2 4323-8 ####[facility] [id number] [place] [address] [place] Glucose [Mass/Vol] 94 mg/dL Normal 74-99 [facility] Comment on above: Order Comment: Jovanny kwon Type: BLOOD SPECIMENOrdering Facility: [facility] Address: [address] [place] [address] Result Comment: The [place] [employer] (ADA) provides guidance for cutoff [...] Standards of Medical Care in Diabetes 2016, [place] [employer]. Diabetes Care. 2016.39(Suppl 1). Performed By: #### 2 4323-8 ####[facility]CL[facility] [id number] [place] [address] [place] Potassium [Moles/Vol] 3.9 mmol/L Normal 3.7-5.1 [facility] Comment on above: Order Comment: Speci men Type: BLOOD SPECIMENOrdering Facility: [facility] Address: [address] [place] [address] Performed By: #### 2 4323-8 ####[facility] [id number] [place] [address] [place] Protein [Mass/Vol] 5.8 g/dL Low 6.3-8.0 [facility] Comment on above: Order Comment: Speci men Type: BLOOD SPECIMENOrdering Facility: [facility] Address: [address] [place] [address] Performed By: #### 2 4323-8 ####[facility] [id number] [place] [address] [place] Sodium [Moles/Vol] 137 mmol/L Normal 136-144 [facility] Comment on above: Order Comment: Speci men Type: BLOOD SPECIMENOrdering Facility: [facility] Address: [address] [place] [address] Performed By: #### 2 4323-8 ####[facility] [id number] [place] [address] [place] Urea nitrogen [Mass/Vol] 10 mg/dL Normal 7-21 [facility] Comment on above: Order Comment: Speci men Type: BLOOD SPECIMENOrdering Facility: [facility] Address: [address] [place] [address] Performed By: #### 2 4323-8 ####[facility] [id number] [place] [id number] [place] ECG COMPLETEon 04-16-2024 ECG COMPLETE Normal [facility] HCG Preg Ur Qlon 04-16-2024 HCG ( test) Ql (U) Negative Normal Negative [facility] Comment on above: Order Comment: Speci men Type: URINE SPECIMENOrdering Facility: [facility] Address: [address] [place] [address] Result Comment: This test is intended to aid in the early detection of . Very dilute urine samples, as indicated by a low specific gravity, may not contain commercial representative levels of hCG. This test detects [...] for . Performed By: #### 2 106-3 ####[facility] [id number] [place] [address] [place] THERAPY NTon 04-16-2024 THERAPY NT Normal [facility] XR CHEST 2V FRONTAL/LATon XR CHEST 2V FRONTAL/LAT Normal [facility] ARTERIAL BLOOD GASESon 04-15 Base excess Calc (Bld) [Moles/Vol] 1 mmol/L Normal 0-2 [facility] Comment on above: Order Comment: Speci men Type: ARTERIAL BLOOD SPECIMENOrdering Facility: [facility] Address: [address] [place] [address] Performed By: #### A LLBG ####[facility] [id number] [place] [address] [place] Body temperature 98.6 [degF] Normal [facility] Comment on above: Order Comment: Speci men Type: ARTERIAL BLOOD SPECIMENOrdering Facility: [facility] Address: [address] [place] [address] Performed By: #### A LLBG ####[facility] [id number] [place] [address] [place] Calcium.ionized (Bld) [Mass/Vol] 1.27 mmol/L Normal 1.08-1.30 [facility] Comment on above: Order Comment: Speci men Type: ARTERIAL BLOOD SPECIMENOrdering Facility: [facility] Address: [address] [place] [address] Performed By: #### A LLBG ####[facility] [id number] [place] [address] [place] Calcium.ionized adjusted to pH 7.4 (BldA) [Moles/Vol] 1.26 mmol/L Normal 1.08-1.30 [facility] Comment on above: Order Comment: Speci men Type: ARTERIAL BLOOD SPECIMENOrdering Facility: [facility] Address: [address] [place] [address] Performed By: #### A LLBG ####[facility] [id number] [place] [address] [place] Carboxyhemoglobin (BldA) [Mass fraction] 1.7 % Normal 0.0-2.0 [facility] Comment on above: Order Comment: Speci men Type: ARTERIAL BLOOD SPECIMENOrdering Facility: [facility] Address: [address] [place] [address] Result Comment: Carb oxyhemoglobin Reference Range for Smokers: 2.0-8.0% Performed By: #### A LLBG ####[facility] [id number] [place] [address] [place] CO2 (Bld) [Partial pressure] 43 mm Hg Normal 36-46 [facility] Comment on above: Order Comment: Speci men Type: ARTERIAL BLOOD SPECIMENOrdering Facility: [facility] Address: [address] [place] [address] Performed By: #### A LLBG ####[facility] [id number] [place] [address] [place] Glucose [Mass/Vol] 134 mg/dL High 60-105 [facility] Comment on above: Order Comment: Speci men Type: ARTERIAL BLOOD SPECIMENOrdering Facility: [facility] Address: [address] [place] [address] Performed By: #### A LLBG ####[facility] [id number] [place] [address] [place] HCO3 (Bld) [Moles/Vol] 25 mmol/L Normal 22-26 [facility] Comment on above: Order Comment: Speci men Type: ARTERIAL BLOOD SPECIMENOrdering Facility: [facility] Address: [address] [place] [address] Performed By: #### A LLBG ####[facility] LABCLIA [id number] [place] [address] [place] Hematocrit (Bld) [Volume fraction] 37.0 % Normal 36.0-46.0 [facility] Comment on above: Order Comment: Speci men Type: ARTERIAL BLOOD SPECIMENOrdering Facility: [facility] Address: [address] [place] [address] Performed By: #### A LLBG ####[facility] LABCL[facility] [id number] [place] [address] [place] Hemoglobin (Bld) [Mass/Vol] 12.0 g/dL Normal 11.5-15.5 [facility] Comment on above: Order Comment: Speci men Type: ARTERIAL BLOOD SPECIMENOrdering Facility: [facility] Address: [address] [place] [address] Performed By: #### A LLBG ####[facility] LABCLIA [id number] [place] [address] [place] Lactate [Moles/Vol] 1.2 mmol/L Normal 0.5-2.2 [facility] Comment on above: Order Comment: Speci men Type: ARTERIAL BLOOD SPECIMENOrdering Facility: [facility] Address: [address] [place] [address] Performed By: #### A LLBG ####[facility] LABCLIA [id number] [place] [address] [place] Methemoglobin (Bld) [Mass fraction] 0.9 % Normal 0.0-1.5 [facility] Comment on above: Order Comment: Speci men Type: ARTERIAL BLOOD SPECIMENOrdering Facility: [facility] Address: [address] [place] [address] Performed By: #### A LLBG ####[facility] LABIA [id number] [place] [address] [place] O2 THERAPY NC = Nasal Cannula Normal [facility] Comment on above: Order Comment: Speci men Type: ARTERIAL BLOOD SPECIMENOrdering Facility: [facility] Address: [address] [place] [address] Performed By: #### A LLBG ####[facility] LABCLIA [id number] [place] [address] [place] Oxygen (Bld) [Partial pressure] 98 mm Hg High 85-95 [facility] Comment on above: Order Comment: Speci men Type: ARTERIAL BLOOD SPECIMENOrdering Facility: [facility] Address: [address] [place] [address] Performed By: #### A LLBG ####[facility] LABCLIA [id number] [place] [address] [place] Oxyhemoglobin (BldA) [Mass fraction] 96 % Normal 95-98 [facility] Comment on above: Order Comment: Speci men Type: ARTERIAL BLOOD SPECIMENOrdering Facility: [facility] Address: [address] [place] [address] Performed By: #### A LLBG ####[facility] LABCLIA [id number] [place] [address] [place] pH (Bld) 7.39 [pH] Normal 7.35-7.45 [facility] Comment on above: Order Comment: Speci men Type: ARTERIAL BLOOD SPECIMENOrdering Facility: [facility] Address: [address] [place] [address] Performed By: #### A LLBG ####[facility] LABCLIA [id number] [place] [address] [place] Potassium [Moles/Vol] 3.9 mmol/L Normal 3.5-5.0 [facility] Comment on above: Order Comment: Speci men Type: ARTERIAL BLOOD SPECIMENOrdering Facility: [facility] Address: [address] [place] [address] Performed By: #### A LLBG ####[facility] LABCLIA [id number] [place] [address] [place] Sodium [Moles/Vol] 135 mmol/L Low 136-144 [facility] Comment on above: Order Comment: Speci men Type: ARTERIAL BLOOD SPECIMENOrdering Facility: [facility] Address: [address] [place] [address] Performed By: #### A LLBG ####[facility] LABCLIA [id number] [place] [address] [place] Base excess Calc (Bld) [Moles/Vol] 0 mmol/L Normal 0-2 [facility] Comment on above: Order Comment: Speci men Type: ARTERIAL BLOOD SPECIMENOrdering Facility: [facility] Address: [address] [place] [address] Performed By: #### A LLBG ####[facility] LABCLIA [id number] [place] [address] [place] Body temperature 98.6 [degF] Normal [facility] Comment on above: Order Comment: Speci men Type: ARTERIAL BLOOD SPECIMENOrdering Facility: [facility] Address: [address] [place] [address] Performed By: #### A LLBG ####[facility] LABIA [id number] [place] [address] [place] Calcium.ionized (Bld) [Mass/Vol] 1.15 mmol/L Normal 1.08-1.30 [facility] Comment on above: Order Comment: Speci men Type: ARTERIAL BLOOD SPECIMENOrdering Facility: [facility] Address: [address] [place] [address] Performed By: #### A LLBG ####[facility] LABIA [id number] [place] [address] [place] Calcium.ionized adjusted to pH 7.4 (BldA) [Moles/Vol] 1.12 mmol/L Normal 1.08-1.30 [facility] Comment on above: Order Comment: Speci men Type: ARTERIAL BLOOD SPECIMENOrdering Facility: [facility] Address: [address] [place] [address] Performed By: #### A LLBG ####[facility] [id number] [place] [address] [place] Carboxyhemoglobin (BldA) [Mass fraction] 1.3 % Normal 0.0-2.0 [facility] Comment on above: Order Comment: Speci men Type: ARTERIAL BLOOD SPECIMENOrdering Facility: [facility] Address: [address] [place] [address] Result Comment: Carb oxyhemoglobin Reference Range for Smokers: 2.0-8.0% Performed By: #### A LLBG ####[facility] LABIA [id number] [place] [address] [place] CO2 (Bld) [Partial pressure] 45 mm Hg Normal 36-46 [facility] Comment on above: Order Comment: Speci men Type: ARTERIAL BLOOD SPECIMENOrdering Facility: [facility] Address: [address] [place] [address] Performed By: #### A LLBG ####[facility] LABIA [id number] [place] [address] [place] Glucose [Mass/Vol] 138 mg/dL High 60-105 [facility] Comment on above: Order Comment: Speci men Type: ARTERIAL BLOOD SPECIMENOrdering Facility: [facility] Address: [address] [place] [address] Performed By: #### A LLBG ####[facility] LABCLIA [id number] [place] [address] [place] HCO3 (Bld) [Moles/Vol] 25 mmol/L Normal 22-26 [facility] Comment on above: Order Comment: Speci men Type: ARTERIAL BLOOD SPECIMENOrdering Facility: [facility] Address: [address] [place] [address] Performed By: #### A LLBG ####[facility] LABCLIA [id number] [place] [address] [place] Hematocrit (Bld) [Volume fraction] 36.1 % Normal 36.0-46.0 [facility] Comment on above: Order Comment: Speci men Type: ARTERIAL BLOOD SPECIMENOrdering Facility: [facility] Address: [address] [place] [address] Performed By: #### A LLBG ####[facility] LABCLIA [id number] [place] [address] [place] Hemoglobin (Bld) [Mass/Vol] 11.7 g/dL Normal 11.5-15.5 [facility] Comment on above: Order Comment: Speci men Type: ARTERIAL BLOOD SPECIMENOrdering Facility: [facility] Address: [address] [place] [address] Performed By: #### A LLBG ####[facility] LABCLIA [id number] [place] [address] [place] Lactate [Moles/Vol] 0.9 mmol/L Normal 0.5-2.2 [facility] Comment on above: Order Comment: Speci men Type: ARTERIAL BLOOD SPECIMENOrdering Facility: [facility] Address: [address] [place] [address] Performed By: #### A LLBG ####[facility] LABCLIA [id number] [place] [address] [place] LITERS 3 Liters/min Normal [facility] Comment on above: Order Comment: Speci men Type: ARTERIAL BLOOD SPECIMENOrdering Facility: [facility] Address: [address] [place] [address] Performed By: #### A LLBG ####[facility] LABCLIA [id number] [place] [address] [place] Methemoglobin (Bld) [Mass fraction] 1.3 % Normal 0.0-1.5 [facility] Comment on above: Order Comment: Speci men Type: ARTERIAL BLOOD SPECIMENOrdering Facility: [facility] Address: [address] [place] [address] Performed By: #### A LLBG ####[facility] LABCLIA [id number] [place] [address] [place] O2 THERAPY NC = Nasal Cannula Normal [facility] Comment on above: Order Comment: Speci men Type: ARTERIAL BLOOD SPECIMENOrdering Facility: [facility] Address: [address] [place] [address] Performed By: #### A LLBG ####[facility] LABCLIA [id number] [place] [address] [place] Oxygen (Bld) [Partial pressure] 135 mm Hg High 85-95 [facility] Comment on above: Order Comment: Speci men Type: ARTERIAL BLOOD SPECIMENOrdering Facility: [facility] Address: [address] [place] [address] Performed By: #### A LLBG ####[facility] LABCLIA [id number] [place] [address] [place] Oxyhemoglobin (BldA) [Mass fraction] 96 % Normal 95-98 [facility] Comment on above: Order Comment: Speci men Type: ARTERIAL BLOOD SPECIMENOrdering Facility: [facility] Address: [address] [place] [address] Performed By: #### A LLBG ####[facility] LABCLIA [id number] [address] [address] [place] pH (Bld) 7.36 [pH] Normal 7.35-7.45 [facility] Comment on above: Order Comment: Speci men Type: ARTERIAL BLOOD SPECIMENOrdering Facility: [facility] Address: [address] [place] [address] Performed By: #### A LLBG ####[facility] LABIA [id number] [place] [address] [place] Potassium [Moles/Vol] 3.6 mmol/L Normal 3.5-5.0 [facility] Comment on above: Order Comment: Speci men Type: ARTERIAL BLOOD SPECIMENOrdering Facility: [facility] Address: [address] [place] [address] Performed By: #### A LLBG ####[facility] LABIA [id number] [place] [address] [place] Sodium [Moles/Vol] 137 mmol/L Normal 136-144 [facility] Comment on above: Order Comment: Speci men Type: ARTERIAL BLOOD SPECIMENOrdering Facility: [facility] Address: [address] [place] [address] Performed By: #### A LLBG ####[facility] LABIA [id number] [place] [id number] [place] CASE MGT INIT ASSESon 2023 CASE MGT INIT ASSES Normal [facility] [id number] 04-15-2024 ECG01 Normal [facility] ECG01 Normal [facility] THERAPY NTon 04-15-2024 THERAPY NT Normal [facility] XR CHEST 1V FRONTAL PORTon 0 04-15-2024 XR CHEST 1V FRONTAL PORT Normal [facility] ANES POSTPROC EVALon 024 ANES POSTPROC EVAL Normal [facility] ANES PRE-OPon 04-14-2024 ANES PRE-OP Normal [facility] ARTERIAL BLOOD GASESon 04-14 Base deficit (BldA) [Moles/Vol] -1 mmol/L Normal -2-0 [facility] Comment on above: Order Comment: Speci men Type: ARTERIAL BLOOD SPECIMENOrdering Facility: [facility] Address: [address] [place] [address] Performed By: #### A LLBG ####[facility] LABIA [id number] [place] [address] [place] Body temperature 98.6 [degF] Normal [facility] Comment on above: Order Comment: Speci men Type: ARTERIAL BLOOD SPECIMENOrdering Facility: [facility] Address: [address] [place] [address] Performed By: #### A LLBG ####[facility] LABCLIA [id number] [place] [address] [place] Calcium.ionized (Bld) [Mass/Vol] 1.17 mmol/L Normal 1.08-1.30 [facility] Comment on above: Order Comment: Speci men Type: ARTERIAL BLOOD SPECIMENOrdering Facility: [facility] Address: [address] [place] [address] Performed By: #### A LLBG ####[facility] LABIA [id number] [place] [address] [place] Calcium.ionized adjusted to pH 7.4 (BldA) [Moles/Vol] 1.14 mmol/L Normal 1.08-1.30 [facility] Comment on above: Order Comment: Speci men Type: ARTERIAL BLOOD SPECIMENOrdering Facility: [facility] Address: [address] [place] [address] Performed By: #### A LLBG ####[facility] LABCLIA [id number] [place] [address] [place] Carboxyhemoglobin (BldA) [Mass fraction] 1.6 % Normal 0.0-2.0 [facility] Comment on above: Order Comment: Speci men Type: ARTERIAL BLOOD SPECIMENOrdering Facility: [facility] Address: [address] [place] [address] Result Comment: Carb oxyhemoglobin Reference Range for Smokers: 2.0-8.0% Performed By: #### A LLBG ####[facility] LABIA [id number] [place] [address] [place] CO2 (Bld) [Partial pressure] 44 mm Hg Normal 36-46 [facility] Comment on above: Order Comment: Speci men Type: ARTERIAL BLOOD SPECIMENOrdering Facility: [facility] Address: [address] [place] [address] Performed By: #### A LLBG ####[facility] LABIA [id number] [place] [address] [place] Glucose [Mass/Vol] 127 mg/dL High 60-105 [facility] Comment on above: Order Comment: Speci men Type: ARTERIAL BLOOD SPECIMENOrdering Facility: [facility] Address: [address] [place] [address] Performed By: #### A LLBG ####[facility] LABIA [id number] [place] [address] [place] HCO3 (Bld) [Moles/Vol] 24 mmol/L Normal 22-26 [facility] Comment on above: Order Comment: Speci men Type: ARTERIAL BLOOD SPECIMENOrdering Facility: [facility] Address: [address] [place] [address] Performed By: #### A LLBG ####[facility] LABIA [id number] [place] [address] [place] Hematocrit (Bld) [Volume fraction] 35.4 % Low 36.0-46.0 [facility] Comment on above: Order Comment: Speci men Type: ARTERIAL BLOOD SPECIMENOrdering Facility: [facility] Address: [address] [place] [address] Performed By: #### A LLBG ####[facility] LABCLIA [id number] [place] [address] [place] Hemoglobin (Bld) [Mass/Vol] 11.5 g/dL Normal 11.5-15.5 [facility] Comment on above: Order Comment: Speci men Type: ARTERIAL BLOOD SPECIMENOrdering Facility: [facility] Address: [address] [place] [address] Performed By: #### A LLBG ####[facility] LABCLIA [id number] [place] [address] [place] Lactate [Moles/Vol] 0.9 mmol/L Normal 0.5-2.2 [facility] Comment on above: Order Comment: Speci men Type: ARTERIAL BLOOD SPECIMENOrdering Facility: [facility] Address: [address] [place] [address] Performed By: #### A LLBG ####[facility] LABCLIA [id number] [place] [address] [place] LITERS 3 Liters/min Normal [facility] Comment on above: Order Comment: Speci men Type: ARTERIAL BLOOD SPECIMENOrdering Facility: [facility] Address: [address] [place] [address] Performed By: #### A LLBG ####[facility] LABCLIA [id number] [place] [address] [place] Methemoglobin (Bld) [Mass fraction] 0.8 % Normal 0.0-1.5 [facility] Comment on above: Order Comment: Speci men Type: ARTERIAL BLOOD SPECIMENOrdering Facility: [facility] Address: [address] [place] [id number] Performed By: #### A LLBG ####[facility] LABCLIA [id number] [place] [address] [place] O2 THERAPY NC = Nasal Cannula Normal [facility] Comment on above: Order Comment: Speci men Type: ARTERIAL BLOOD SPECIMENOrdering Facility: [facility] Address: [address] [place] [address] Performed By: #### A LLBG ####[facility] LABCLIA [id number] [place] [address] [place] Oxygen (Bld) [Partial pressure] 86 mm Hg Normal 85-95 [facility] Comment on above: Order Comment: Speci men Type: ARTERIAL BLOOD SPECIMENOrdering Facility: [facility] Address: [address] [place] [address] Performed By: #### A LLBG ####[facility] LABIA [id number] [place] [address] [place] Oxyhemoglobin (BldA) [Mass fraction] 94 % Low 95-98 [facility] Comment on above: Order Comment: Speci men Type: ARTERIAL BLOOD SPECIMENOrdering Facility: [facility] Address: [address] [place], [place] [id number] Performed By: #### A LLBG ####[facility] LABIA [id number] [place] [address] [place] pH (Bld) 7.36 [pH] Normal 7.35-7.45 [facility] Comment on above: Order Comment: Speci men Type: ARTERIAL BLOOD SPECIMENOrdering Facility: [facility] Address: [address] [place] [address] Performed By: #### A LLBG ####[facility] LABIA [id number] [place] [id number] [place] Potassium [Moles/Vol] 4.0 mmol/L Normal 3.5-5.0 [facility] Comment on above: Order Comment: Speci men Type: ARTERIAL BLOOD SPECIMENOrdering Facility: [facility] Address: [address] [place] [address] Performed By: #### A LLBG ####[facility] LABCLIA [id number] [place] [address] [place] Sodium [Moles/Vol] 138 mmol/L Normal 136-144 [facility] Comment on above: Order Comment: Speci men Type: ARTERIAL BLOOD SPECIMENOrdering Facility: [facility] Address: [address] [place] [address] Performed By: #### A LLBG ####[facility] LABCLIA [id number] [place] [address] [place] Base deficit (BldA) [Moles/Vol] -2 mmol/L Normal -2-0 [facility] Comment on above: Order Comment: Speci men Type: ARTERIAL BLOOD SPECIMENOrdering Facility: [facility] Address: [address] [place] [address] Performed By: #### A LLBG ####[facility] LABCLIA [id number] [place] [address] [place] Body temperature 97.7 [degF] Normal [facility] Comment on above: Order Comment: Speci men Type: ARTERIAL BLOOD SPECIMENOrdering Facility: [facility] Address: [address] [place] [address] Performed By: #### A LLBG ####[facility] LABCLIA [id number] [place] [address] [place] Calcium.ionized (Bld) [Mass/Vol] 1.16 mmol/L Normal 1.08-1.30 [facility] Comment on above: Order Comment: Speci men Type: ARTERIAL BLOOD SPECIMENOrdering Facility: [facility] Address: [address] [place] [address] Performed By: #### A LLBG ####[facility] LABIA [id number] [place] [address] [place] Calcium.ionized adjusted to pH 7.4 (BldA) [Moles/Vol] 1.14 mmol/L Normal 1.08-1.30 [facility] Comment on above: Order Comment: Speci men Type: ARTERIAL BLOOD SPECIMENOrdering Facility: [facility] Address: [address] [place] [address] Performed By: #### A LLBG ####[facility] LABIA [id number] [place] [address] [place] Carboxyhemoglobin (BldA) [Mass fraction] 1.2 % Normal 0.0-2.0 [facility] Comment on above: Order Comment: Speci men Type: ARTERIAL BLOOD SPECIMENOrdering Facility: [facility] Address: [address] [place] [address] Result Comment: Carb oxyhemoglobin Reference Range for Smokers: 2.0-8.0% Performed By: #### A LLBG ####[facility] [id number] [place] [address] [place] CO2 (Bld) [Partial pressure] 42 mm Hg Normal 36-46 [facility] Comment on above: Order Comment: Speci men Type: ARTERIAL BLOOD SPECIMENOrdering Facility: [facility] Address: [address] [place] [address] Performed By: #### A LLBG ####[facility] LABIA [id number] [place] [address] [place] CO2 adjusted to patient's actual temperature (Bld) [Partial pressure] 41 mmHg Normal 36-46 [facility] Comment on above: Order Comment: Speci men Type: ARTERIAL BLOOD SPECIMENOrdering Facility: [facility] Address: [address] [place] [address] Performed By: #### A LLBG ####[facility] LABIA [id number] [place] [address] [place] Glucose [Mass/Vol] 159 mg/dL High 60-105 [facility] Comment on above: Order Comment: Speci men Type: ARTERIAL BLOOD SPECIMENOrdering Facility: [facility] Address: [address] [place] [address] Performed By: #### A LLBG ####[facility] LABCLIA [id number] [place] [address] [place] HCO3 (Bld) [Moles/Vol] 23 mmol/L Normal 22-26 [facility] Comment on above: Order Comment: Speci men Type: ARTERIAL BLOOD SPECIMENOrdering Facility: [facility] Address: [address] [place] [address] Performed By: #### A LLBG ####[facility] LABCLIA [id number] [place] [address] [place] Hematocrit (Bld) [Volume fraction] 38.6 % Normal 36.0-46.0 [facility] Comment on above: Order Comment: Speci men Type: ARTERIAL BLOOD SPECIMENOrdering Facility: [facility] Address: [address] [place] [address] Performed By: #### A LLBG ####[facility] LABCLIA [id number] [place] [address] [place] Hemoglobin (Bld) [Mass/Vol] 12.6 g/dL Normal 11.5-15.5 [facility] Comment on above: Order Comment: Speci men Type: ARTERIAL BLOOD SPECIMENOrdering Facility: [facility] Address: [address] [place] [address] Performed By: #### A LLBG ####[facility] LABCLIA [id number] [place] [address] [place] Lactate [Moles/Vol] 0.7 mmol/L Normal 0.5-2.2 [facility] Comment on above: Order Comment: Speci men Type: ARTERIAL BLOOD SPECIMENOrdering Facility: [facility] Address: [address] [place] [id number] Performed By: #### A LLBG ####[facility] LABCLIA [id number] [place] [address] [place] LITERS 4 Liters/min Normal [facility] Comment on above: Order Comment: Speci men Type: ARTERIAL BLOOD SPECIMENOrdering Facility: [facility] Address: [address] [place] [address] Performed By: #### A LLBG ####[facility] LABCLIA [id number] [place] [address] [place] Methemoglobin (Bld) [Mass fraction] 0.7 % Normal 0.0-1.5 [facility] Comment on above: Order Comment: Speci men Type: ARTERIAL BLOOD SPECIMENOrdering Facility: [facility] Address: [address] [place] [address] Performed By: #### A LLBG ####[facility] LABCLIA [id number] [place] [address] [place] O2 THERAPY NC = Nasal Cannula Normal [facility] Comment on above: Order Comment: Speci men Type: ARTERIAL BLOOD SPECIMENOrdering Facility: [facility] Address: [address] [place], [place] [id number] Performed By: #### A LLBG ####[facility] LABCLIA [id number] [place] [address] [place] Oxygen (Bld) [Partial pressure] 112 mm Hg High 85-95 [facility] Comment on above: Order Comment: Speci men Type: ARTERIAL BLOOD SPECIMENOrdering Facility: [facility] Address: [address] [place], [place] [id number] Performed By: #### A LLBG ####[facility] LABCLIA [id number] [place] [address] [place] Oxygen adjusted to patient's actual temperature (Bld) [Partial pressure] 109 mmHg High 85-95 [facility] Comment on above: Order Comment: Speci men Type: ARTERIAL BLOOD SPECIMENOrdering Facility: [facility] Address: [facility] [place] [address] Performed By: #### A LLBG ####[facility] LABCLIA [id number] [place] [address] [place] Oxyhemoglobin (BldA) [Mass fraction] 96 % Normal 95-98 [facility] Comment on above: Order Comment: Speci men Type: ARTERIAL BLOOD SPECIMENOrdering Facility: [facility] Address: [address] [place] [address] Performed By: #### A LLBG ####[facility]CL[facility] [id number] [place] [address] [place] pH (Bld) 7.36 [pH] Normal 7.35-7.45 [facility] Comment on above: Order Comment: Speci men Type: ARTERIAL BLOOD SPECIMENOrdering Facility: [facility] Address: [address] [place] [address] Performed By: #### A LLBG ####[facility] LABCL[facility] [id number] [place] [address] [place] pH adjusted to patient's actual temperature (Bld) 7.37 Normal 7.35-7.45 [facility] Comment on above: Order Comment: Speci men Type: ARTERIAL BLOOD SPECIMENOrdering Facility: [facility] Address: [address] [place] [address] Performed By: #### A LLBG ####[facility] LABIA [id number] [place] [address] [place] Potassium [Moles/Vol] 4.2 mmol/L Normal 3.5-5.0 [facility] Comment on above: Order Comment: Speci men Type: ARTERIAL BLOOD SPECIMENOrdering Facility: [facility] Address: [address] [place] [address] Performed By: #### A LLBG ####[facility] LABCL[facility] [id number] [place] [address] [place] Sodium [Moles/Vol] 138 mmol/L Normal 136-144 [facility] Comment on above: Order Comment: Speci men Type: ARTERIAL BLOOD SPECIMENOrdering Facility: [facility] Address: [address] [place] [address] Performed By: #### A LLBG ####[facility] LABCLIA [id number] [place] [address] [place] Base deficit (BldA) [Moles/Vol] -5 mmol/L Low -2-0 [facility] Comment on above: Order Comment: Speci men Type: ARTERIAL BLOOD SPECIMENOrdering Facility: [facility] Address: [address] [place] [address] Performed By: #### A LLBG ####[facility] LABIA [id number] [place] [address] [place] Body temperature 98.6 [degF] Normal [facility] Comment on above: Order Comment: Speci men Type: ARTERIAL BLOOD SPECIMENOrdering Facility: [facility] Address: [address] [place] [address] Performed By: #### A LLBG ####[facility] LABIA [id number] [place] [address] [place] Calcium.ionized (Bld) [Mass/Vol] 1.16 mmol/L Normal 1.08-1.30 [facility] Comment on above: Order Comment: Speci men Type: ARTERIAL BLOOD SPECIMENOrdering Facility: [facility] Address: [address] [place] [address] Performed By: #### A LLBG ####[facility] LABIA [id number] [place] [address] [place] Calcium.ionized adjusted to pH 7.4 (BldA) [Moles/Vol] 1.10 mmol/L Normal 1.08-1.30 [facility] Comment on above: Order Comment: Speci men Type: ARTERIAL BLOOD SPECIMENOrdering Facility: [facility] Address: [address] [place] [address] Performed By: #### A LLBG ####[facility] LABCLIA [id number] [place] [address] [place] Carboxyhemoglobin (BldA) [Mass fraction] 1.4 % Normal 0.0-2.0 [facility] Comment on above: Order Comment: Speci men Type: ARTERIAL BLOOD SPECIMENOrdering Facility: [facility] Address: [address] [place] [address] Result Comment: Carb oxyhemoglobin Reference Range for Smokers: 2.0-8.0% Performed By: #### A LLBG ####[facility] LABCLIA [id number] [place] [address] [place] CO2 (Bld) [Partial pressure] 44 mm Hg Normal 36-46 [facility] Comment on above: Order Comment: Speci men Type: ARTERIAL BLOOD SPECIMENOrdering Facility: [facility] Address: [address] [place] [address] Performed By: #### A LLBG ####[facility] LABCLIA [id number] [place] [address] [place] Glucose [Mass/Vol] 160 mg/dL High 60-105 [facility] Comment on above: Order Comment: Speci men Type: ARTERIAL BLOOD SPECIMENOrdering Facility: [facility] Address: [address] [place] [address] Performed By: #### A LLBG ####[facility] LABCLIA [id number] [place] [address] [place] HCO3 (Bld) [Moles/Vol] 21 mmol/L Low 22-26 [facility] Comment on above: Order Comment: Speci men Type: ARTERIAL BLOOD SPECIMENOrdering Facility: [facility] Address: [address] [place] [address] Performed By: #### A LLBG ####[facility] LABCLIA [id number] [place] [address] [place] Hematocrit (Bld) [Volume fraction] 38.4 % Normal 36.0-46.0 [facility] Comment on above: Order Comment: Speci men Type: ARTERIAL BLOOD SPECIMENOrdering Facility: [facility] Address: [address] [place] [address] Performed By: #### A LLBG ####[facility] LABCLIA [id number] [place] [address] [place] Hemoglobin (Bld) [Mass/Vol] 12.5 g/dL Normal 11.5-15.5 [facility] Comment on above: Order Comment: Speci men Type: ARTERIAL BLOOD SPECIMENOrdering Facility: [facility] Address: [address] [place] [address] Performed By: #### A LLBG ####[facility] LABCLIA [id number] [place] [address] [place] Lactate [Moles/Vol] 1.0 mmol/L Normal 0.5-2.2 [facility] Comment on above: Order Comment: Speci men Type: ARTERIAL BLOOD SPECIMENOrdering Facility: [facility] Address: [address] [place] [address] Performed By: #### A LLBG ####[facility] LABCLIA [id number] [place] [address] [place] LITERS 4 Liters/min Normal [facility] Comment on above: Order Comment: Speci men Type: ARTERIAL BLOOD SPECIMENOrdering Facility: [facility] Address: [address] [place] [address] Performed By: #### A LLBG ####[facility] LABCLIA [id number] [place] [id number] [address] [place] Methemoglobin (Bld) [Mass fraction] 1.8 % High 0.0-1.5 [facility] Comment on above: Order Comment: Speci men Type: ARTERIAL BLOOD SPECIMENOrdering Facility: [facility] Address: [address] [place] [address] Performed By: #### A LLBG ####[facility] LABCLIA [id number] [place] [address] [place] O2 THERAPY NC = Nasal Cannula Normal [facility] Comment on above: Order Comment: Speci men Type: ARTERIAL BLOOD SPECIMENOrdering Facility: [facility] Address: [address] [place] [address] Performed By: #### A LLBG ####[facility] LABCLIA [id number] [place] [address] [place] Oxygen (Bld) [Partial pressure] 105 mm Hg High 85-95 [facility] Comment on above: Order Comment: Speci men Type: ARTERIAL BLOOD SPECIMENOrdering Facility: [facility] Address: [address] [place] [address] Performed By: #### A LLBG ####[facility] LABCLIA [id number] [place] [address] [place] Oxyhemoglobin (BldA) [Mass fraction] 95 % Normal 95-98 [facility] Comment on above: Order Comment: Speci men Type: ARTERIAL BLOOD SPECIMENOrdering Facility: [facility] Address: [address] [place] [address] Performed By: #### A LLBG ####[facility] LABCLIA [id number] [place] [address] [place] pH (Bld) 7.31 [pH] Low 7.35-7.45 [facility] Comment on above: Order Comment: Speci men Type: ARTERIAL BLOOD SPECIMENOrdering Facility: [facility] Address: [address] [place] [address] Performed By: #### A LLBG ####[facility] LABCLIA [id number] [place] [address] [place] Potassium [Moles/Vol] 3.9 mmol/L Normal 3.5-5.0 [facility] Comment on above: Order Comment: Speci men Type: ARTERIAL BLOOD SPECIMENOrdering Facility: [facility] Address: [address] [place] [address] Performed By: #### A LLBG ####[facility] LABCLIA [id number] [place] [address] [place] Sodium [Moles/Vol] 139 mmol/L Normal 136-144 [facility] Comment on above: Order Comment: Speci men Type: ARTERIAL BLOOD SPECIMENOrdering Facility: [facility] Address: [address] [place] [address] Performed By: #### A LLBG ####[facility] LABIA [id number] [place] [address] [place] Base deficit (BldA) [Moles/Vol] -2 mmol/L Normal -2-0 [facility] Comment on above: Order Comment: Speci men Type: ARTERIAL BLOOD SPECIMENOrdering Facility: [facility] Address: [address] [place] [address] Performed By: #### A LLBG ####[facility] LABIA [id number] [place] [address] [place] Body temperature 98.6 [degF] Normal [facility] Comment on above: Order Comment: Speci men Type: ARTERIAL BLOOD SPECIMENOrdering Facility: [facility] Address: [address] [place] [address] Performed By: #### A LLBG ####[facility] LABIA [id number] [place] [address] [place] Calcium.ionized (Bld) [Mass/Vol] 1.18 mmol/L Normal 1.08-1.30 [facility] Comment on above: Order Comment: Speci men Type: ARTERIAL BLOOD SPECIMENOrdering Facility: [facility] Address: [address] [place] [address] Performed By: #### A LLBG ####[facility] LABCLIA [id number] [place] [address] [place] Calcium.ionized adjusted to pH 7.4 (BldA) [Moles/Vol] 1.13 mmol/L Normal 1.08-1.30 [facility] Comment on above: Order Comment: Speci men Type: ARTERIAL BLOOD SPECIMENOrdering Facility: [facility] Address: [address] [place] [address] Performed By: #### A LLBG ####[facility] LABIA [id number] [place] [address] [place] Carboxyhemoglobin (BldA) [Mass fraction] 1.8 % Normal 0.0-2.0 [facility] Comment on above: Order Comment: Speci men Type: ARTERIAL BLOOD SPECIMENOrdering Facility: [facility] Address: [address] [place] [address] Result Comment: Carb oxyhemoglobin Reference Range for Smokers: 2.0-8.0% Performed By: #### A LLBG ####[facility] LABIA [id number] [place] [address] [place] CO2 (Bld) [Partial pressure] 48 mm Hg High 36-46 [facility] Comment on above: Order Comment: Speci men Type: ARTERIAL BLOOD SPECIMENOrdering Facility: [facility] Address: [address] [place] [address] Performed By: #### A LLBG ####[facility] LABCLIA [id number] [place] [address] [place] Glucose [Mass/Vol] 85 mg/dL Normal 60-105 [facility] Comment on above: Order Comment: Speci men Type: ARTERIAL BLOOD SPECIMENOrdering Facility: [facility] Address: [address] [place] [address] Performed By: #### A LLBG ####[facility] LABCLIA [id number] [place] [address] [place] HCO3 (Bld) [Moles/Vol] 24 mmol/L Normal 22-26 [facility] Comment on above: Order Comment: Speci men Type: ARTERIAL BLOOD SPECIMENOrdering Facility: [facility] Address: [address] [place] [address] Performed By: #### A LLBG ####[facility] LABCLIA [id number] [place] [address] [place] Hematocrit (Bld) [Volume fraction] 36.2 % Normal 36.0-46.0 [facility] Comment on above: Order Comment: Speci men Type: ARTERIAL BLOOD SPECIMENOrdering Facility: [facility] Address: [address] [place] [address] Performed By: #### A LLBG ####[facility] LABIA [id number] [place] [address] [place] Hemoglobin (Bld) [Mass/Vol] 11.8 g/dL Normal 11.5-15.5 [facility] Comment on above: Order Comment: Speci men Type: ARTERIAL BLOOD SPECIMENOrdering Facility: [facility] Address: [address] [place] [address] Performed By: #### A LLBG ####[facility] LABCLIA [id number] [place] [address] [place] Lactate [Moles/Vol] 2.0 mmol/L Normal 0.5-2.2 [facility] Comment on above: Order Comment: Speci men Type: ARTERIAL BLOOD SPECIMENOrdering Facility: [facility] Address: [address] [place] [address] Performed By: #### A LLBG ####[facility] LABCLIA [id number] [place] [id number] [place] Methemoglobin (Bld) [Mass fraction] 1.3 % Normal 0.0-1.5 [facility] Comment on above: Order Comment: Speci men Type: ARTERIAL BLOOD SPECIMENOrdering Facility: [facility] Address: [address] [place] [address] Performed By: #### A LLBG ####[facility] LABCLIA [id number] [place] [address] [place] O2 THERAPY VENT=Ventilator Normal [facility] Comment on above: Order Comment: Speci men Type: ARTERIAL BLOOD SPECIMENOrdering Facility: [facility] Address: [address] [place] [address] Performed By: #### A LLBG ####[facility] LABIA [id number] [place] [address] [place] Oxygen (Bld) [Partial pressure] 99 mm Hg High 85-95 [facility] Comment on above: Order Comment: Speci men Type: ARTERIAL BLOOD SPECIMENOrdering Facility: [facility] Address: [address] [place] [address] Performed By: #### A LLBG ####[facility] LABCLIA [id number] [place] [address] [place] Oxyhemoglobin (BldA) [Mass fraction] 94 % Low 95-98 [facility] Comment on above: Order Comment: Speci men Type: ARTERIAL BLOOD SPECIMENOrdering Facility: [facility] Address: [address] [place] [id number] Performed By: #### A LLBG ####[facility] LABIA [id number] [place] [address] [place] pH (Bld) 7.32 [pH] Low 7.35-7.45 [facility] Comment on above: Order Comment: Speci men Type: ARTERIAL BLOOD SPECIMENOrdering Facility: [facility] Address: [address] [place] [address] Performed By: #### A LLBG ####[facility] LABCLIA [id number] [place] [address] [place] Potassium [Moles/Vol] 3.6 mmol/L Normal 3.5-5.0 [facility] Comment on above: Order Comment: Speci men Type: ARTERIAL BLOOD SPECIMENOrdering Facility: [facility] Address: [address] [place] [address] Performed By: #### A LLBG ####[facility] LABCLIA [id number] [place] [address] [place] Sodium [Moles/Vol] 139 mmol/L Normal 136-144 [facility] Comment on above: Order Comment: Speci men Type: ARTERIAL BLOOD SPECIMENOrdering Facility: [facility] Address: [address] [place] [address] Performed By: #### A LLBG ####[facility] LABCLIA [id number] [place] [address] [place] Base deficit (BldA) [Moles/Vol] -3 mmol/L Low -2-0 [facility] Comment on above: Order Comment: Speci men Type: ARTERIAL BLOOD SPECIMENOrdering Facility: [facility] Address: [address] [place] [address] Performed By: #### A LLBG ####[facility] LABCLIA [id number] [place] [address] [place] Calcium.ionized (Bld) [Mass/Vol] 1.12 mmol/L Normal 1.08-1.30 [facility] Comment on above: Order Comment: Speci men Type: ARTERIAL BLOOD SPECIMENOrdering Facility: [facility] Address: [address] [place] [address] Performed By: #### A LLBG ####[facility] LABIA [id number] [place] [address] [place] Calcium.ionized adjusted to pH 7.4 (BldA) [Moles/Vol] 1.08 mmol/L Normal 1.08-1.30 [facility] Comment on above: Order Comment: Speci men Type: ARTERIAL BLOOD SPECIMENOrdering Facility: [facility] Address: [address] [place] [address] Performed By: #### A LLBG ####[facility] LABCLIA [id number] [place] [address] [place] Carboxyhemoglobin (BldA) [Mass fraction] 2.2 % High 0.0-2.0 [facility] Comment on above: Order Comment: Speci men Type: ARTERIAL BLOOD SPECIMENOrdering Facility: [facility] Address: [address] [place] [address] Result Comment: Carb oxyhemoglobin Reference Range for Smokers: 2.0-8.0% Performed By: #### A LLBG ####[facility] LABCLIA [id number] [place] [address] [place] CO2 (Bld) [Partial pressure] 45 mm Hg Normal 36-46 [facility] Comment on above: Order Comment: Speci men Type: ARTERIAL BLOOD SPECIMENOrdering Facility: [facility] Address: [address] [place] [address] Performed By: #### A LLBG ####[facility] LABCLIA [id number] [place] [address] [place] CO2 adjusted to patient's actual temperature (Bld) [Partial pressure] 45 mmHg Normal 36-46 [facility] Comment on above: Order Comment: Speci men Type: ARTERIAL BLOOD SPECIMENOrdering Facility: [facility] Address: [address] [place] [address] Performed By: #### A LLBG ####[facility] LABCLIA [id number] [place] [address] [place] Glucose [Mass/Vol] 154 mg/dL High 60-105 [facility] Comment on above: Order Comment: Speci men Type: ARTERIAL BLOOD SPECIMENOrdering Facility: [facility] Address: [address] [place] [address] Performed By: #### A LLBG ####[facility] LABCLIA [id number] [place] [address] [place] HCO3 (Bld) [Moles/Vol] 23 mmol/L Normal 22-26 [facility] Comment on above: Order Comment: Speci men Type: ARTERIAL BLOOD SPECIMENOrdering Facility: [facility] Address: [address] [place] [address] Performed By: #### A LLBG ####[facility] LABCLIA [id number] [place] [address] [place] Hematocrit (Bld) [Volume fraction] 31.8 % Low 36.0-46.0 [facility] Comment on above: Order Comment: Speci men Type: ARTERIAL BLOOD SPECIMENOrdering Facility: [facility] Address: [address] [place] [address] Performed By: #### A LLBG ####[facility] LABIA [id number] [place] [address] [place] Hemoglobin (Bld) [Mass/Vol] 10.3 g/dL Low 11.5-15.5 [facility] Comment on above: Order Comment: Speci men Type: ARTERIAL BLOOD SPECIMENOrdering Facility: [facility] Address: [address] [place] [address] Performed By: #### A LLBG ####[facility] LABIA [id number] [place] [address] [place] Lactate [Moles/Vol] 3.6 mmol/L High 0.5-2.2 [facility] Comment on above: Order Comment: Speci men Type: ARTERIAL BLOOD SPECIMENOrdering Facility: [facility] Address: [address] [place] [address] Performed By: #### A LLBG ####[facility] LABCLIA [id number] [place] [address] [place] Methemoglobin (Bld) [Mass fraction] 1.2 % Normal 0.0-1.5 [facility] Comment on above: Order Comment: Speci men Type: ARTERIAL BLOOD SPECIMENOrdering Facility: [facility] Address: [address] [place] [address] Performed By: #### A LLBG ####[facility] LABCLIA [id number] [place] [id number] [place] Oxygen (Bld) [Partial pressure] 132 mm Hg High 85-95 [facility] Comment on above: Order Comment: Speci men Type: ARTERIAL BLOOD SPECIMENOrdering Facility: [facility] Address: [address] [place] [address] Performed By: #### A LLBG ####[facility] LABIA [id number] [place] [address] [place] Oxygen adjusted to patient's actual temperature (Bld) [Partial pressure] 132 mmHg High 85-95 [facility] Comment on above: Order Comment: Speci men Type: ARTERIAL BLOOD SPECIMENOrdering Facility: [facility] Address: [address] [place] [address] Performed By: #### A LLBG ####[facility] LABIA [id number] [place] [address] [place] Oxyhemoglobin (BldA) [Mass fraction] 96 % Normal 95-98 [facility] Comment on above: Order Comment: Speci men Type: ARTERIAL BLOOD SPECIMENOrdering Facility: [facility] Address: [address] [place] [address] Performed By: #### A LLBG ####[facility] LABCLIA [id number] [place] [id number] [place] pH (Bld) 7.32 [pH] Low 7.35-7.45 [facility] Comment on above: Order Comment: Speci men Type: ARTERIAL BLOOD SPECIMENOrdering Facility: [facility] Address: [address] [place] [address] Performed By: #### A LLBG ####[facility] LABCLIA [id number] [place] [address] [place] pH adjusted to patient's actual temperature (Bld) 7.32 Low 7.35-7.45 [facility] Comment on above: Order Comment: Speci men Type: ARTERIAL BLOOD SPECIMENOrdering Facility: [facility] Address: [address] [place] [address] Performed By: #### A LLBG ####[facility] LABIA [id number] [place] [address] [place] Potassium [Moles/Vol] 3.4 mmol/L Low 3.5-5.0 [facility] Comment on above: Order Comment: Speci men Type: ARTERIAL BLOOD SPECIMENOrdering Facility: [facility] Address: [address] [place] [address] Performed By: #### A LLBG ####[facility] LABCLIA [id number] [place] [address] [place] Sodium [Moles/Vol] 137 mmol/L Normal 136-144 [facility] Comment on above: Order Comment: Speci men Type: ARTERIAL BLOOD SPECIMENOrdering Facility: [facility] Address: [address] [place] [address] Performed By: #### A LLBG ####[facility] LABCL[facility] [id number] [place] [address] [place] Base deficit (BldA) [Moles/Vol] -4 mmol/L Low -2-0 [facility] Comment on above: Order Comment: Speci men Type: ARTERIAL BLOOD SPECIMENOrdering Facility: [facility] Address: [address] [place] [address] Performed By: #### A LLBG ####[facility]CL[facility] [id number] [place] [address] [place] Calcium.ionized (Bld) [Mass/Vol] 1.06 mmol/L Low 1.08-1.30 [facility] Comment on above: Order Comment: Speci men Type: ARTERIAL BLOOD SPECIMENOrdering Facility: [facility] Address: [address] [place] [address] Performed By: #### A LLBG ####[facility] LABIA [id number] [place] [address] [place] Calcium.ionized adjusted to pH 7.4 (BldA) [Moles/Vol] 1.02 mmol/L Low 1.08-1.30 [facility] Comment on above: Order Comment: Speci men Type: ARTERIAL BLOOD SPECIMENOrdering Facility: [facility] Address: [address] [place] [address] Performed By: #### A LLBG ####[facility] LABIA [id number] [place] [address] [place] Carboxyhemoglobin (BldA) [Mass fraction] 1.9 % Normal 0.0-2.0 [facility] Comment on above: Order Comment: Speci men Type: ARTERIAL BLOOD SPECIMENOrdering Facility: [facility] Address: [address] [place] [address] Result Comment: Carb oxyhemoglobin Reference Range for Smokers: 2.0-8.0% Performed By: #### A LLBG ####[facility] LABIA [id number] [place] [address] [place] CO2 (Bld) [Partial pressure] 40 mm Hg Normal 36-46 [facility] Comment on above: Order Comment: Speci men Type: ARTERIAL BLOOD SPECIMENOrdering Facility: [facility] Address: [address] [place] [address] Performed By: #### A LLBG ####[facility] LABIA [id number] [place] [address] [place] CO2 adjusted to patient's actual temperature (Bld) [Partial pressure] 40 mmHg Normal 36-46 [facility] Comment on above: Order Comment: Speci men Type: ARTERIAL BLOOD SPECIMENOrdering Facility: [facility] Address: [address] [place] [address] Performed By: #### A LLBG ####[facility] LABCL[facility] [id number] [place] [address] [place] Glucose [Mass/Vol] 302 mg/dL High 60-105 [facility] Comment on above: Order Comment: Speci men Type: ARTERIAL BLOOD SPECIMENOrdering Facility: [facility] Address: [address] [place] [address] Performed By: #### A LLBG ####[facility]CL[facility] [id number] [place] [address] [place] HCO3 (Bld) [Moles/Vol] 21 mmol/L Low 22-26 [facility] Comment on above: Order Comment: Speci men Type: ARTERIAL BLOOD SPECIMENOrdering Facility: [facility] Address: [address] [place] [address] Performed By: #### A LLBG ####[facility]CL[facility] [id number] [place] [address] [place] Hematocrit (Bld) [Volume fraction] 28.4 % Low 36.0-46.0 [facility] Comment on above: Order Comment: Speci men Type: ARTERIAL BLOOD SPECIMENOrdering Facility: [facility] Address: [address] [place] [address] Performed By: #### A LLBG ####[facility]CL[facility] [id number] [place] [address] [place] Hemoglobin (Bld) [Mass/Vol] 9.2 g/dL Low 11.5-15.5 [facility] Comment on above: Order Comment: Speci men Type: ARTERIAL BLOOD SPECIMENOrdering Facility: [facility] Address: [address] [place] [id number] Performed By: #### A LLBG ####[facility] LABCL[facility] [id number] [address] [address] [place] Lactate [Moles/Vol] 2.2 mmol/L Normal 0.5-2.2 [facility] Comment on above: Order Comment: Speci men Type: ARTERIAL BLOOD SPECIMENOrdering Facility: [facility] Address: [address] [place], [place] [id number] Performed By: #### A LLBG ####[facility] LABCL[facility] [id number] [place] [address] [place] Methemoglobin (Bld) [Mass fraction] 1.0 % Normal 0.0-1.5 [facility] Comment on above: Order Comment: Speci men Type: ARTERIAL BLOOD SPECIMENOrdering Facility: [facility] Address: [address] [place], [place] [id number] Performed By: #### A LLBG ####[facility] LABCL[facility] [id number] [place] [address] [place] Oxygen (Bld) [Partial pressure] 291 mm Hg High 85-95 [facility] Comment on above: Order Comment: Speci men Type: ARTERIAL BLOOD SPECIMENOrdering Facility: [facility] Address: [address] [place], [place] [id number] Performed By: #### A LLBG ####[facility]CL[facility] [id number] [address] [address] [place] Oxygen adjusted to patient's actual temperature (Bld) [Partial pressure] 291 mmHg High 85-95 [facility] Comment on above: Order Comment: Speci men Type: ARTERIAL BLOOD SPECIMENOrdering Facility: [facility] Address: [address] [place], [place] [id number] Performed By: #### A LLBG ####[facility]CL[facility] [id number] [place] [address] [place] Oxyhemoglobin (BldA) [Mass fraction] 97 % Normal 95-98 [facility] Comment on above: Order Comment: Speci men Type: ARTERIAL BLOOD SPECIMENOrdering Facility: [facility] Address: [address] [place] [address] Performed By: #### A LLBG ####[facility] LABCL[facility] [id number] [place] [address] [place] pH (Bld) 7.33 [pH] Low 7.35-7.45 [facility] Comment on above: Order Comment: Speci men Type: ARTERIAL BLOOD SPECIMENOrdering Facility: [facility] Address: [address] [place] [address] Performed By: #### A LLBG ####[facility]CL[facility] [id number] [place] [address] [place] pH adjusted to patient's actual temperature (Bld) 7.33 Low 7.35-7.45 [facility] Comment on above: Order Comment: Speci men Type: ARTERIAL BLOOD SPECIMENOrdering Facility: [facility] Address: [address] [place] [address] Performed By: #### A LLBG ####[facility] LABCL[facility] [id number] [place] [address] [place] Potassium [Moles/Vol] 4.7 mmol/L Normal 3.5-5.0 [facility] Comment on above: Order Comment: Speci men Type: ARTERIAL BLOOD SPECIMENOrdering Facility: [facility] Address: [address] [place] [address] Performed By: #### A LLBG ####[facility] LABCLIA [id number] [place] [address] [place] Sodium [Moles/Vol] 133 mmol/L Low 136-144 [facility] Comment on above: Order Comment: Speci men Type: ARTERIAL BLOOD SPECIMENOrdering Facility: [facility] Address: [address] [place] [address] Performed By: #### A LLBG ####[facility] [id number] [place] [address] [place] Base deficit (BldA) [Moles/Vol] -3 mmol/L Low -2-0 [facility] Comment on above: Order Comment: Speci men Type: ARTERIAL BLOOD SPECIMENOrdering Facility: [facility] Address: [address] [place] [address] Performed By: #### A LLBG ####[facility] [id number] [place] [address] [place] Calcium.ionized (Bld) [Mass/Vol] 1.03 mmol/L Low 1.08-1.30 [facility] Comment on above: Order Comment: Speci men Type: ARTERIAL BLOOD SPECIMENOrdering Facility: [facility] Address: [address] [place] [address] Performed By: #### A LLBG ####[facility] [id number] [place] [address] [place] Calcium.ionized adjusted to pH 7.4 (BldA) [Moles/Vol] 1.03 mmol/L Low 1.08-1.30 [facility] Comment on above: Order Comment: Speci men Type: ARTERIAL BLOOD SPECIMENOrdering Facility: [facility] Address: [address] [place] [address] Performed By: #### A LLBG ####[facility] [id number] [place] [address] [place] Carboxyhemoglobin (BldA) [Mass fraction] 2.0 % Normal 0.0-2.0 [facility] Comment on above: Order Comment: Speci men Type: ARTERIAL BLOOD SPECIMENOrdering Facility: [facility] Address: [address] [place] [address] Result Comment: Carb oxyhemoglobin Reference Range for Smokers: 2.0-8.0% Performed By: #### A LLBG ####[facility] LABCL[facility] [id number] [place] [address] [place] CO2 (Bld) [Partial pressure] 35 mm Hg Low 36-46 [facility] Comment on above: Order Comment: Speci men Type: ARTERIAL BLOOD SPECIMENOrdering Facility: [facility] Address: [address] [place] [address] Performed By: #### A LLBG ####[facility] LABCL[facility] [id number] [address] [place] CO2 adjusted to patient's actual temperature (Bld) [Partial pressure] 35 mmHg Low 36-46 [facility] Comment on above: Order Comment: Speci men Type: ARTERIAL BLOOD SPECIMENOrdering Facility: [facility] Address: [address] [place] [address] Performed By: #### A LLBG ####[facility] LABCLIA [id number] [place] [address] [place] Glucose [Mass/Vol] 274 mg/dL High 60-105 [facility] Comment on above: Order Comment: Speci men Type: ARTERIAL BLOOD SPECIMENOrdering Facility: [facility] Address: [address] [place] [address] Performed By: #### A LLBG ####[facility] LABCL[facility] [id number] [place] [address] [place] HCO3 (Bld) [Moles/Vol] 21 mmol/L Low 22-26 [facility] Comment on above: Order Comment: Speci men Type: ARTERIAL BLOOD SPECIMENOrdering Facility: [facility] Address: [address] [place] [address] Performed By: #### A LLBG ####[facility] LABCLIA [id number] [place] [address] [place] Hematocrit (Bld) [Volume fraction] 29.4 % Low 36.0-46.0 [facility] Comment on above: Order Comment: Speci men Type: ARTERIAL BLOOD SPECIMENOrdering Facility: [facility] Address: [address] [place] [address] Performed By: #### A LLBG ####[facility] LABCL[facility] [id number] [place] [address] [place] Hemoglobin (Bld) [Mass/Vol] 9.5 g/dL Low 11.5-15.5 [facility] Comment on above: Order Comment: Speci men Type: ARTERIAL BLOOD SPECIMENOrdering Facility: [facility] Address: [address] [place] [address] Performed By: #### A LLBG ####[facility] LABCL[facility] [id number] [place] [address] [place] Lactate [Moles/Vol] 2.0 mmol/L Normal 0.5-2.2 [facility] Comment on above: Order Comment: Speci men Type: ARTERIAL BLOOD SPECIMENOrdering Facility: [facility] Address: [address] [place] [address] Performed By: #### A LLBG ####[facility] LABCL[facility] [id number] [place] [address] [place] Methemoglobin (Bld) [Mass fraction] 0.6 % Normal 0.0-1.5 [facility] Comment on above: Order Comment: Speci men Type: ARTERIAL BLOOD SPECIMENOrdering Facility: [facility] Address: [address] [place], [place] [id number] Performed By: #### A LLBG ####[facility] LABCLIA [id number] [place] [address] [place] Oxygen (Bld) [Partial pressure] 315 mm Hg High 85-95 [facility] Comment on above: Order Comment: Speci men Type: ARTERIAL BLOOD SPECIMENOrdering Facility: [facility] Address: [address] [id number] Performed By: #### A LLBG ####[facility] LABCLIA [id number] [place] [address] [place] Oxygen adjusted to patient's actual temperature (Bld) [Partial pressure] 315 mmHg High 85-95 [facility] Comment on above: Order Comment: Speci men Type: ARTERIAL BLOOD SPECIMENOrdering Facility: [facility] Address: [address] [place] [address] Performed By: #### A LLBG ####[facility] LABCL[facility] [id number] [place] [address] [place] Oxyhemoglobin (BldA) [Mass fraction] 97 % Normal 95-98 [facility] Comment on above: Order Comment: Speci men Type: ARTERIAL BLOOD SPECIMENOrdering Facility: [facility] Address: [address] [place] [address] Performed By: #### A LLBG ####[facility] LABCL[facility] [id number] [place] [address] [place] pH (Bld) 7.40 [pH] Normal 7.35-7.45 [facility] Comment on above: Order Comment: Speci men Type: ARTERIAL BLOOD SPECIMENOrdering Facility: [facility] Address: [address] [place], [place] [id number] Performed By: #### A LLBG ####[facility] LABCL[facility] [id number] [place] [address] [place] pH adjusted to patient's actual temperature (Bld) 7.40 Normal 7.35-7.45 [facility] Comment on above: Order Comment: Speci men Type: ARTERIAL BLOOD SPECIMENOrdering Facility: [facility] Address: [address] [place], [place] [phone] Performed By: #### A LLBG ####[facility] LABCL[facility] [id number] [place] [id number] [place] Potassium [Moles/Vol] 4.4 mmol/L Normal 3.5-5.0 [facility] Comment on above: Order Comment: Speci men Type: ARTERIAL BLOOD SPECIMENOrdering Facility: [facility] Address: [address] [place] [address] Performed By: #### A LLBG ####[facility] LABCL[facility] [id number] [place] [address] [place] Sodium [Moles/Vol] 134 mmol/L Low 136-144 [facility] Comment on above: Order Comment: Speci men Type: ARTERIAL BLOOD SPECIMENOrdering Facility: [facility] Address: [address] [place] [address] Performed By: #### A LLBG ####[facility] LABIA [id number] [place] [address] [place] Base deficit (BldA) [Moles/Vol] -6 mmol/L Low -2-0 [facility] Comment on above: Order Comment: Speci men Type: ARTERIAL BLOOD SPECIMENOrdering Facility: [facility] Address: [address] [place] [address] Performed By: #### A LLBG ####[facility] LABIA [id number] [place] [address] [place] Calcium.ionized (Bld) [Mass/Vol] 1.04 mmol/L Low 1.08-1.30 [facility] Comment on above: Order Comment: Speci men Type: ARTERIAL BLOOD SPECIMENOrdering Facility: [facility] Address: [address] [place] [address] Performed By: #### A LLBG ####[facility] LABIA [id number] [place] [address] [place] Calcium.ionized adjusted to pH 7.4 (BldA) [Moles/Vol] 0.99 mmol/L Low 1.08-1.30 [facility] Comment on above: Order Comment: Speci men Type: ARTERIAL BLOOD SPECIMENOrdering Facility: [facility] Address: [address] [place] [address] Performed By: #### A LLBG ####[facility]CL[facility] [id number] [address] [address] [place] Carboxyhemoglobin (BldA) [Mass fraction] 1.8 % Normal 0.0-2.0 [facility] Comment on above: Order Comment: Speci men Type: ARTERIAL BLOOD SPECIMENOrdering Facility: [facility] Address: [address] [place] [address] Result Comment: Carb oxyhemoglobin Reference Range for Smokers: 2.0-8.0% Performed By: #### A LLBG ####[facility]CL[facility] [id number] [place] [address] [place] CO2 (Bld) [Partial pressure] 40 mm Hg Normal 36-46 [facility] Comment on above: Order Comment: Speci men Type: ARTERIAL BLOOD SPECIMENOrdering Facility: [facility] Address: [address] [place] [address] Performed By: #### A LLBG ####[facility]CL[facility] [id number] [place] [address] [place] CO2 adjusted to patient's actual temperature (Bld) [Partial pressure] 40 mmHg Normal 36-46 [facility] Comment on above: Order Comment: Speci men Type: ARTERIAL BLOOD SPECIMENOrdering Facility: [facility] Address: [address] [place] [address] Performed By: #### A LLBG ####[facility]CL[facility] [id number] [place] [address] [place] Glucose [Mass/Vol] 209 mg/dL High 60-105 [facility] Comment on above: Order Comment: Speci men Type: ARTERIAL BLOOD SPECIMENOrdering Facility: [facility] Address: [address] [place] [address] Performed By: #### A LLBG ####[facility]CL[facility] [id number] [place] [address] [place] HCO3 (Bld) [Moles/Vol] 19 mmol/L Low 22-26 [facility] Comment on above: Order Comment: Speci men Type: ARTERIAL BLOOD SPECIMENOrdering Facility: [facility] Address: [address] [place] [address] Performed By: #### A LLBG ####[facility]CL[facility] [id number] [place] [address] [place] Hematocrit (Bld) [Volume fraction] 28.8 % Low 36.0-46.0 [facility] Comment on above: Order Comment: Speci men Type: ARTERIAL BLOOD SPECIMENOrdering Facility: [facility] Address: [address] [place] [address] Performed By: #### A LLBG ####[facility]CL[facility] [id number] [place] [address] [place] Hemoglobin (Bld) [Mass/Vol] 9.3 g/dL Low 11.5-15.5 [facility] Comment on above: Order Comment: Speci men Type: ARTERIAL BLOOD SPECIMENOrdering Facility: [facility] Address: [address] [place] [address] Performed By: #### A LLBG ####[facility]CL[facility] [id number] [place] [address] [place] Lactate [Moles/Vol] 2.9 mmol/L High 0.5-2.2 [facility] Comment on above: Order Comment: Speci men Type: ARTERIAL BLOOD SPECIMENOrdering Facility: [facility] Address: [address] [place] [address] Performed By: #### A LLBG ####[facility]CL[facility] [id number] [place] [address] [place] Methemoglobin (Bld) [Mass fraction] 2.0 % High 0.0-1.5 [facility] Comment on above: Order Comment: Speci men Type: ARTERIAL BLOOD SPECIMENOrdering Facility: [facility] Address: [address] [place] [address] Performed By: #### A LLBG ####[facility]CL[facility] [id number] [place] [address] [place] Oxygen (Bld) [Partial pressure] 401 mm Hg High 85-95 [facility] Comment on above: Order Comment: Speci men Type: ARTERIAL BLOOD SPECIMENOrdering Facility: [facility] Address: [address] [place] [address] Performed By: #### A LLBG ####[facility]CL[facility] [id number] [place] [address] [place] Oxygen adjusted to patient's actual temperature (Bld) [Partial pressure] 401 mmHg High 85-95 [facility] Comment on above: Order Comment: Speci men Type: ARTERIAL BLOOD SPECIMENOrdering Facility: [facility] Address: [address] [place] [address] Performed By: #### A LLBG ####[facility] [id number] [place] [address] [place] Oxyhemoglobin (BldA) [Mass fraction] 96 % Normal 95-98 [facility] Comment on above: Order Comment: Speci men Type: ARTERIAL BLOOD SPECIMENOrdering Facility: [facility] Address: [address] [place] [address] Performed By: #### A LLBG ####[facility] [id number] [place] [address] [place] pH (Bld) 7.31 [pH] Low 7.35-7.45 [facility] Comment on above: Order Comment: Speci men Type: ARTERIAL BLOOD SPECIMENOrdering Facility: [facility] Address: [address] [place] [address] Performed By: #### A LLBG ####[facility] [id number] [place] [address] [place] pH adjusted to patient's actual temperature (Bld) 7.31 Low 7.35-7.45 [facility] Comment on above: Order Comment: Speci men Type: ARTERIAL BLOOD SPECIMENOrdering Facility: [facility] Address: [address] [place] [address] Performed By: #### A LLBG ####[facility] [id number] [place] [address] [place] Potassium [Moles/Vol] 4.0 mmol/L Normal 3.5-5.0 [facility] Comment on above: Order Comment: Speci men Type: ARTERIAL BLOOD SPECIMENOrdering Facility: [facility] Address: [address] [place] [address] Performed By: #### A LLBG ####[facility] [id number] [place] [address] [place] Sodium [Moles/Vol] 133 mmol/L Low 136-144 [facility] Comment on above: Order Comment: Speci men Type: ARTERIAL BLOOD SPECIMENOrdering Facility: [facility] Address: [address] [place] [address] Performed By: #### A LLBG ####[facility] [id number] [place] [address] [place] Base deficit (BldA) [Moles/Vol] -5 mmol/L Low -2-0 [facility] Comment on above: Order Comment: Speci men Type: ARTERIAL BLOOD SPECIMENOrdering Facility: [facility] Address: [address] [place] [address] Performed By: #### A LLBG ####[facility] [id number] [place] [address] [place] Calcium.ionized (Bld) [Mass/Vol] 1.11 mmol/L Normal 1.08-1.30 [facility] Comment on above: Order Comment: Speci men Type: ARTERIAL BLOOD SPECIMENOrdering Facility: [facility] Address: [address] [place] [address] Performed By: #### A LLBG ####[facility] [id number] [place] [address] [place] Calcium.ionized adjusted to pH 7.4 (BldA) [Moles/Vol] 1.06 mmol/L Low 1.08-1.30 [facility] Comment on above: Order Comment: Speci men Type: ARTERIAL BLOOD SPECIMENOrdering Facility: [facility] Address: [address] [place] [address] Performed By: #### A LLBG ####[facility] [id number] [place] [address] [place] Carboxyhemoglobin (BldA) [Mass fraction] 1.9 % Normal 0.0-2.0 [facility] Comment on above: Order Comment: Speci men Type: ARTERIAL BLOOD SPECIMENOrdering Facility: [facility] Address: [address] [place] [address] Result Comment: Carb oxyhemoglobin Reference Range for Smokers: 2.0-8.0% Performed By: #### A LLBG ####[facility] [id number] [place] [address] [place] CO2 (Bld) [Partial pressure] 41 mm Hg Normal 36-46 [facility] Comment on above: Order Comment: Speci men Type: ARTERIAL BLOOD SPECIMENOrdering Facility: [facility] Address: [address] [place] [address] Performed By: #### A LLBG ####[facility] LABCLIA [id number] [place] [address] [place] CO2 adjusted to patient's actual temperature (Bld) [Partial pressure] 41 mmHg Normal 36-46 [facility] Comment on above: Order Comment: Speci men Type: ARTERIAL BLOOD SPECIMENOrdering Facility: [facility] Address: [address] [place] [address] Performed By: #### A LLBG ####[facility]CL[facility] [id number] [place] [address] [place] Glucose [Mass/Vol] 122 mg/dL High 60-105 [facility] Comment on above: Order Comment: Speci men Type: ARTERIAL BLOOD SPECIMENOrdering Facility: [facility] Address: [address] [place] [address] Performed By: #### A LLBG ####[facility]CL[facility] [id number] [place] [address] [place] HCO3 (Bld) [Moles/Vol] 20 mmol/L Low 22-26 [facility] Comment on above: Order Comment: Speci men Type: ARTERIAL BLOOD SPECIMENOrdering Facility: [facility] Address: [address] [place] [address] Performed By: #### A LLBG ####[facility]CL[facility] [id number] [place] [address] [place] Hematocrit (Bld) [Volume fraction] 34.2 % Low 36.0-46.0 [facility] Comment on above: Order Comment: Speci men Type: ARTERIAL BLOOD SPECIMENOrdering Facility: [facility] Address: [address] [place] [address] Performed By: #### A LLBG ####[facility] [id number] [place] [address] [place] Hemoglobin (Bld) [Mass/Vol] 11.1 g/dL Low 11.5-15.5 [facility] Comment on above: Order Comment: Speci men Type: ARTERIAL BLOOD SPECIMENOrdering Facility: [facility] Address: [address] [place] [address] Performed By: #### A LLBG ####[facility]CL[facility] [id number] [place] [address] [place] Lactate [Moles/Vol] 2.1 mmol/L Normal 0.5-2.2 [facility] Comment on above: Order Comment: Speci men Type: ARTERIAL BLOOD SPECIMENOrdering Facility: [facility] Address: [address] [place] [address] Performed By: #### A LLBG ####[facility]CL[facility] [id number] [place] [address] [place] Order Comment: Speci men Type: VENOUS BLOOD SPECIMENOrdering Facility: [facility] Address: [address] [place] [address] Performed By: #### 2 4344-4 ####[facility]CL[facility] [id number] [place] [address] [place] Methemoglobin (Bld) [Mass fraction] 1.4 % Normal 0.0-1.5 [facility] Comment on above: Order Comment: Speci men Type: ARTERIAL BLOOD SPECIMENOrdering Facility: [facility] Address: [address] [place], [place] [id number] Performed By: #### A LLBG ####[facility]CL[facility] [id number] [place] [id number] [place] Oxygen (Bld) [Partial pressure] 297 mm Hg High 85-95 [facility] Comment on above: Order Comment: Speci men Type: ARTERIAL BLOOD SPECIMENOrdering Facility: [facility] Address: [address] [place] [place] [id number] Performed By: #### A LLBG ####[facility]CL[facility] [id number] [place] [address] [place] Oxygen adjusted to patient's actual temperature (Bld) [Partial pressure] 297 mmHg High 85-95 [facility] Comment on above: Order Comment: Speci men Type: ARTERIAL BLOOD SPECIMENOrdering Facility: [facility] Address: [address] [place] [address] Performed By: #### A LLBG ####[facility]CL[facility] [id number] [place] [address] [place] Oxyhemoglobin (BldA) [Mass fraction] 96 % Normal 95-98 [facility] Comment on above: Order Comment: Speci men Type: ARTERIAL BLOOD SPECIMENOrdering Facility: [facility] Address: [address] [place] [address] Performed By: #### A LLBG ####[facility] LABIA [id number] [place] [address] [place] pH (Bld) 7.31 [pH] Low 7.35-7.45 [facility] Comment on above: Order Comment: Speci men Type: ARTERIAL BLOOD SPECIMENOrdering Facility: [facility] Address: [address] [place] [address] Performed By: #### A LLBG ####[facility] LABIA [id number] [place] [address] [place] pH adjusted to patient's actual temperature (Bld) 7.31 Low 7.35-7.45 [facility] Comment on above: Order Comment: Speci men Type: ARTERIAL BLOOD SPECIMENOrdering Facility: [facility] Address: [address] [place] [address] Performed By: #### A LLBG ####[facility] LABIA [id number] [place] [address] [place] Potassium [Moles/Vol] 3.6 mmol/L Normal 3.5-5.0 [facility] Comment on above: Order Comment: Speci men Type: ARTERIAL BLOOD SPECIMENOrdering Facility: [facility] Address: [address] [place] [address] Performed By: #### A LLBG ####[facility] LABIA [id number] [place] [address] [place] Sodium [Moles/Vol] 142 mmol/L Normal 136-144 [facility] Comment on above: Order Comment: Speci men Type: ARTERIAL BLOOD SPECIMENOrdering Facility: [facility] Address: [address] [place] [address] Performed By: #### A LLBG ####[facility] LABIA [id number] [place] [address] [place] Base deficit (BldA) [Moles/Vol] -11 mmol/L Low -2-0 [facility] Comment on above: Order Comment: Speci men Type: ARTERIAL BLOOD SPECIMENOrdering Facility: [facility] Address: [address] [place] [address] Performed By: #### A LLBG ####[facility] LABIA [id number] [place] [address] [place] Calcium.ionized (Bld) [Mass/Vol] 0.94 mmol/L Low 1.08-1.30 [facility] Comment on above: Order Comment: Speci men Type: ARTERIAL BLOOD SPECIMENOrdering Facility: [facility] Address: [address] [place] [address] Performed By: #### A LLBG ####[facility] LABIA [id number] [place] [address] [place] Calcium.ionized adjusted to pH 7.4 (BldA) [Moles/Vol] 0.87 mmol/L Low 1.08-1.30 [facility] Comment on above: Order Comment: Speci men Type: ARTERIAL BLOOD SPECIMENOrdering Facility: [facility] Address: [address] [place] [address] Performed By: #### A LLBG ####[facility] LABIA [id number] [place] [address] [place] Carboxyhemoglobin (BldA) [Mass fraction] 2.0 % Normal 0.0-2.0 [facility] Comment on above: Order Comment: Speci men Type: ARTERIAL BLOOD SPECIMENOrdering Facility: [facility] Address: [address] [place] [address] Result Comment: Carb oxyhemoglobin Reference Range for Smokers: 2.0-8.0% Performed By: #### A LLBG ####[facility]CL[facility] [id number] [address] [place] CO2 (Bld) [Partial pressure] 32 mm Hg Low 36-46 [facility] Comment on above: Order Comment: Speci men Type: ARTERIAL BLOOD SPECIMENOrdering Facility: [facility] Address: [address] [place] [address] Performed By: #### A LLBG ####[facility]CL[facility] [id number] [address] [place] CO2 adjusted to patient's actual temperature (Bld) [Partial pressure] 32 mmHg Low 36-46 [facility] Comment on above: Order Comment: Speci men Type: ARTERIAL BLOOD SPECIMENOrdering Facility: [facility] Address: [address] [place] [address] Performed By: #### A LLBG ####[facility]CL[facility] [id number] [address] [place] COM[place] Critical Value: K Urgent Value: NCA Normal [facility] Comment on above: Order Comment: Speci men Type: ARTERIAL BLOOD SPECIMENOrdering Facility: [facility] Address: [address] [place] [address] Performed By: #### A LLBG ####[facility] LABCL[facility] [id number] [address] [place] DATE/TIME NOTIFIED [id number] AM Normal [facility] Comment on above: Order Comment: Speci men Type: ARTERIAL BLOOD SPECIMENOrdering Facility: [facility] Address: [address] [place] [address] Performed By: #### A LLBG ####[facility] LABCLIA [id number] [place] [address] [place] Glucose [Mass/Vol] 75 mg/dL Normal 60-105 [facility] Comment on above: Order Comment: Speci men Type: ARTERIAL BLOOD SPECIMENOrdering Facility: [facility] Address: [address] [place] [address] Performed By: #### A LLBG ####[facility] LABCLIA [id number] [place] [address] [place] HCO3 (Bld) [Moles/Vol] 14 mmol/L Low 22-26 [facility] Comment on above: Order Comment: Speci men Type: ARTERIAL BLOOD SPECIMENOrdering Facility: [facility] Address: [address] [place] [address] Performed By: #### A LLBG ####[facility] LABCLIA [id number] [place] [address] [place] Hematocrit (Bld) [Volume fraction] 27.3 % Low 36.0-46.0 [facility] Comment on above: Order Comment: Speci men Type: ARTERIAL BLOOD SPECIMENOrdering Facility: [facility] Address: [address] [place] [address] Performed By: #### A LLBG ####[facility]CL[facility] [id number] [place] [address] [place] Hemoglobin (Bld) [Mass/Vol] 8.8 g/dL Low 11.5-15.5 [facility] Comment on above: Order Comment: Speci men Type: ARTERIAL BLOOD SPECIMENOrdering Facility: [facility] Address: [address] [place] [address] Performed By: #### A LLBG ####[facility] LABCLIA [id number] [place] [address] [place] Lactate [Moles/Vol] 1.4 mmol/L Normal 0.5-2.2 [facility] Comment on above: Order Comment: Speci men Type: ARTERIAL BLOOD SPECIMENOrdering Facility: [facility] Address: [address] [place] [address] Performed By: #### A LLBG ####[facility] LABCLIA [id number] [address] [address] [place] Methemoglobin (Bld) [Mass fraction] 1.4 % Normal 0.0-1.5 [facility] Comment on above: Order Comment: Speci men Type: ARTERIAL BLOOD SPECIMENOrdering Facility: [facility] Address: [address] [place] [id number] Performed By: #### A LLBG ####[facility] LABCLIA [id number] [place] [address] [place] NOTIFIED WHOM Loraine COREAS RN orRadha BAIG Normal [facility] Comment on above: Order Comment: Speci men Type: ARTERIAL BLOOD SPECIMENOrdering Facility: [facility] Address: [address] [place], [place] [address] Performed By: #### A LLBG ####[facility] LABCLIA [id number] [place] [address] [place] Oxygen (Bld) [Partial pressure] 162 mm Hg High 85-95 [facility] Comment on above: Order Comment: Speci men Type: ARTERIAL BLOOD SPECIMENOrdering Facility: [facility] Address: [address] [place] [place] [id number] Performed By: #### A LLBG ####[facility] LABCLIA [id number] [address] [address] [place] Oxygen adjusted to patient's actual temperature (Bld) [Partial pressure] 162 mmHg High 85-95 [facility] Comment on above: Order Comment: Speci men Type: ARTERIAL BLOOD SPECIMENOrdering Facility: [facility] Address: [address] [place] [address] Performed By: #### A LLBG ####[facility] LABCLIA [id number] [place] [address] [place] Oxyhemoglobin (BldA) [Mass fraction] 96 % Normal 95-98 [facility] Comment on above: Order Comment: Speci men Type: ARTERIAL BLOOD SPECIMENOrdering Facility: [facility] Address: [address] [place] [address] Performed By: #### A LLBG ####[facility] LABCLIA [id number] [place] [address] [place] pH (Bld) 7.27 [pH] Low 7.35-7.45 [facility] Comment on above: Order Comment: Speci men Type: ARTERIAL BLOOD SPECIMENOrdering Facility: [facility] Address: [address] [place] [address] Performed By: #### A LLBG ####[facility] LABCLIA [id number] [place] [address] [place] pH adjusted to patient's actual temperature (Bld) 7.27 Low 7.35-7.45 [facility] Comment on above: Order Comment: Speci men Type: ARTERIAL BLOOD SPECIMENOrdering Facility: [facility] Address: [address] [place] [address] Performed By: #### A LLBG ####[facility] LABIA [id number] [place] [address] [place] Potassium [Moles/Vol] 2.2 mmol/L Critically low 3.5-5.0 [facility] Comment on above: Order Comment: Speci men Type: ARTERIAL BLOOD SPECIMENOrdering Facility: [facility] Address: [address] [place] [address] Performed By: #### A LLBG ####[facility] LABCLIA [id number] [place] [address] [place] Sodium [Moles/Vol] 145 mmol/L High 136-144 [facility] Comment on above: Order Comment: Speci men Type: ARTERIAL BLOOD SPECIMENOrdering Facility: [facility] Address: [address] [place] [address] Performed By: #### A LLBG ####[facility] [id number] [place] [address] [place] Base deficit (BldA) [Moles/Vol] -3 mmol/L Low -2-0 [facility] Comment on above: Order Comment: Speci men Type: ARTERIAL BLOOD SPECIMENOrdering Facility: [facility] Address: [address] [place] [address] Performed By: #### A LLBG ####[facility] [id number] [place] [address] [place] Calcium.ionized (Bld) [Mass/Vol] 1.22 mmol/L Normal 1.08-1.30 [facility] Comment on above: Order Comment: Speci men Type: ARTERIAL BLOOD SPECIMENOrdering Facility: [facility] Address: [address] [place] [address] Performed By: #### A LLBG ####[facility] [id number] [place] [address] [place] Calcium.ionized adjusted to pH 7.4 (BldA) [Moles/Vol] 1.21 mmol/L Normal 1.08-1.30 [facility] Comment on above: Order Comment: Speci men Type: ARTERIAL BLOOD SPECIMENOrdering Facility: [facility] Address: [address] [place] [address] Performed By: #### A LLBG ####[facility] [id number] [place] [address] [place] Carboxyhemoglobin (BldA) [Mass fraction] 2.4 % High 0.0-2.0 [facility] Comment on above: Order Comment: Speci men Type: ARTERIAL BLOOD SPECIMENOrdering Facility: [facility] Address: [address] [place] [address] Result Comment: Carb oxyhemoglobin Reference Range for Smokers: 2.0-8.0% Performed By: #### A LLBG ####[facility] LABCLIA [id number] [place] [address] [place] CO2 (Bld) [Partial pressure] 36 mm Hg Normal 36-46 [facility] Comment on above: Order Comment: Speci men Type: ARTERIAL BLOOD SPECIMENOrdering Facility: [facility] Address: [address] [place] [address] Performed By: #### A LLBG ####[facility] LABCL[facility] [id number] [address] [place] CO2 adjusted to patient's actual temperature (Bld) [Partial pressure] 36 mmHg Normal 36-46 [facility] Comment on above: Order Comment: Speci men Type: ARTERIAL BLOOD SPECIMENOrdering Facility: [facility] Address: [address] [place] [address] Performed By: #### A LLBG ####[facility] LABCLIA [id number] [place] [address] [place] Glucose [Mass/Vol] 91 mg/dL Normal 60-105 [facility] Comment on above: Order Comment: Speci men Type: ARTERIAL BLOOD SPECIMENOrdering Facility: [facility] Address: [address] [place] [address] Performed By: #### A LLBG ####[facility]CLIA [id number] [place] [address] [place] HCO3 (Bld) [Moles/Vol] 21 mmol/L Low 22-26 [facility] Comment on above: Order Comment: Speci men Type: ARTERIAL BLOOD SPECIMENOrdering Facility: [facility] Address: [address] [place] [address] Performed By: #### A LLBG ####[facility] LABCL[facility] [id number] [place] [address] [place] Hematocrit (Bld) [Volume fraction] 40.5 % Normal 36.0-46.0 [facility] Comment on above: Order Comment: Speci men Type: ARTERIAL BLOOD SPECIMENOrdering Facility: [facility] Address: [address] [place] [address] Performed By: #### A LLBG ####[facility] LABCL[facility] [id number] [place] [address] [place] Hemoglobin (Bld) [Mass/Vol] 13.2 g/dL Normal 11.5-15.5 [facility] Comment on above: Order Comment: Speci men Type: ARTERIAL BLOOD SPECIMENOrdering Facility: [facility] Address: [address] [place] [address] Performed By: #### A LLBG ####[facility] LABCL[facility] [id number] [place] [address] [place] Lactate [Moles/Vol] 1.2 mmol/L Normal 0.5-2.2 [facility] Comment on above: Order Comment: Speci men Type: ARTERIAL BLOOD SPECIMENOrdering Facility: [facility] Address: [address] [place] [address] Performed By: #### A LLBG ####[facility]CL[facility] [id number] [place] [address] [place] Methemoglobin (Bld) [Mass fraction] 0.9 % Normal 0.0-1.5 [facility] Comment on above: Order Comment: Speci men Type: ARTERIAL BLOOD SPECIMENOrdering Facility: [facility] Address: [address] [place], [place] [id number] Performed By: #### A LLBG ####[facility] LABCLIA [id number] [place] [address] [place] Oxygen (Bld) [Partial pressure] 114 mm Hg High 85-95 [facility] Comment on above: Order Comment: Speci men Type: ARTERIAL BLOOD SPECIMENOrdering Facility: [facility] Address: [address] [place] [id number] Performed By: #### A LLBG ####[facility] LABCLIA [id number] [place] [address] [place] Oxygen adjusted to patient's actual temperature (Bld) [Partial pressure] 114 mmHg High 85-95 [facility] Comment on above: Order Comment: Speci men Type: ARTERIAL BLOOD SPECIMENOrdering Facility: [facility] Address: [address] [place] [address] Performed By: #### A LLBG ####[facility]CL[facility] [id number] [place] [address] [place] Oxyhemoglobin (BldA) [Mass fraction] 96 % Normal 95-98 [facility] Comment on above: Order Comment: Speci men Type: ARTERIAL BLOOD SPECIMENOrdering Facility: [facility] Address: [address] [place] [address] Performed By: #### A LLBG ####[facility]CL[facility] [id number] [place] [address] [place] pH (Bld) 7.38 [pH] Normal 7.35-7.45 [facility] Comment on above: Order Comment: Speci men Type: ARTERIAL BLOOD SPECIMENOrdering Facility: [facility] Address: [address] [place] [address] Performed By: #### A LLBG ####[facility]CL[facility] [id number] [place] [address] [place] pH adjusted to patient's actual temperature (Bld) 7.38 Normal 7.35-7.45 [facility] Comment on above: Order Comment: Speci men Type: ARTERIAL BLOOD SPECIMENOrdering Facility: [facility] Address: [address] [place], [place] [address] Performed By: #### A LLBG ####[facility]CL[facility] [id number] [place] [id number] [place] Potassium [Moles/Vol] 3.5 mmol/L Normal 3.5-5.0 [facility] Comment on above: Order Comment: Speci men Type: ARTERIAL BLOOD SPECIMENOrdering Facility: [facility] Address: [address] [place] [address] Performed By: #### A LLBG ####[facility]CL[facility] [id number] [place] [address] [place] Sodium [Moles/Vol] 144 mmol/L Normal 136-144 [facility] Comment on above: Order Comment: Speci men Type: ARTERIAL BLOOD SPECIMENOrdering Facility: [facility] Address: [address] [place] [address] Performed By: #### A LLBG ####[facility]CL[facility] [id number] [place] [address] [place] CBC panel Auto (Bld)on 04-14 Erythrocyte distribution width (RBC) [Ratio] 12.8 % Normal 11.5-15.0 [facility] Comment on above: Order Comment: Speci men Type: BLOOD SPECIMENOrdering Facility: [facility] Address: [address] [place] [address] Performed By: #### 5 8410-2 ####[facility]CL[facility] [id number] [place] [address] [place] Hematocrit (Bld) [Volume fraction] 34.0 % Low 36.0-46.0 [facility] Comment on above: Order Comment: Speci men Type: BLOOD SPECIMENOrdering Facility: [facility] Address: [address] [place] [address] Performed By: #### 5 8410-2 ####[facility]CL[facility] [id number] [place] [address] [place] Hemoglobin (Bld) [Mass/Vol] 11.5 g/dL Normal 11.5-15.5 [facility] Comment on above: Order Comment: Speci men Type: BLOOD SPECIMENOrdering Facility: [facility] Address: [address] [place] [address] Performed By: #### 5 8410-2 ####[facility] LABIA [id number] [place] [address] [place] MCH (RBC) [Entitic mass] 33.7 pg Normal 26.0-34.0 [facility] Comment on above: Order Comment: Speci men Type: BLOOD SPECIMENOrdering Facility: [facility] Address: [address] [place] [address] Performed By: #### 5 8410-2 ####[facility] LABIA [id number] [place] [address] [place] MCHC (RBC) [Mass/Vol] 33.8 g/dL Normal 30.5-36.0 [facility] Comment on above: Order Comment: Speci men Type: BLOOD SPECIMENOrdering Facility: [facility] Address: [address] [place] [address] Performed By: #### 5 8410-2 ####[facility]IA [id number] [place] [address] [place] MCV (RBC) [Entitic vol] 99.7 fL Normal 80.0-100.0 [facility] Comment on above: Order Comment: Speci men Type: BLOOD SPECIMENOrdering Facility: [facility] Address: [address] [place] [address] Performed By: #### 5 8410-2 ####[facility] [id number] [place] [address] [place] Nucleated RBC (Bld) [#/Vol] 10*3/uL Normal <0.01 [facility] Comment on above: Order Comment: Speci men Type: BLOOD SPECIMENOrdering Facility: [facility] Address: [address] [place] [address] Performed By: #### 5 8410-2 ####[facility] [id number] [address] [address] [place] Platelet mean volume (Bld) [Entitic vol] 10.3 fL Normal 9.0-12.7 [facility] [facility] Comment on above: Order Comment: Speci men Type: BLOOD SPECIMENOrdering Facility: [facility] Address: [address] [place] [address] Performed By: #### 5 8410-2 ####[facility] [id number] [place] [address] [place] Platelets (Bld) [#/Vol] 164 10*3/uL Normal 150-400 [facility] Comment on above: Order Comment: Speci men Type: BLOOD SPECIMENOrdering Facility: [facility] Address: [address] [place] [address] Performed By: #### 5 8410-2 ####[facility] [id number] [place] [address] [place] RBC (Bld) [#/Vol] 3.41 10*6/uL Low 3.90-5.20 [facility] Comment on above: Order Comment: Speci men Type: BLOOD SPECIMENOrdering Facility: [facility] Address: [address] [place] [address] Performed By: #### 5 8410-2 ####[facility] [id number] [place] [address] [place] WBC (Bld) [#/Vol] 8.84 10*3/uL Normal 3.70-11.00 [facility] Comment on above: Order Comment: Speci men Type: BLOOD SPECIMENOrdering Facility: [facility] Address: [address] [place] [address] Performed By: #### 5 8410-2 ####[facility] [id number] [place] [address] [place] Comprehensive metabolic 2000 panelon 04-14-2024 Albumin [Mass/Vol] 3.2 g/dL Low 3.9-4.9 [facility] Comment on above: Order Comment: Speci men Type: BLOOD SPECIMENOrdering Facility: [facility] Address: [address] [place] [address] Performed By: #### 2 4323-8 ####[facility] [id number] [place] [address] [place] ALP [Catalytic activity/Vol] 60 U/L Normal 34-123 [facility] Comment on above: Order Comment: Speci men Type: BLOOD SPECIMENOrdering Facility: [facility] Address: [address] [place] [address] Performed By: #### 2 4323-8 ####[facility] [id number] [place] [address] [place] ALT [Catalytic activity/Vol] 36 U/L Normal 7-38 [facility] Comment on above: Order Comment: Speci men Type: BLOOD SPECIMENOrdering Facility: [facility] Address: [address] [place] [address] Performed By: #### 2 4323-8 ####[facility] [id number] [place] [address] [place] Anion gap [Moles/Vol] 9 mmol/L Normal 8-15 [facility] Comment on above: Order Comment: Speci men Type: BLOOD SPECIMENOrdering Facility: [facility] Address: [address] [place] [address] Performed By: #### 2 4323-8 ####[facility] [id number] [place] [address] [place] AST [Catalytic activity/Vol] 82 U/L High 13-35 [facility] Comment on above: Order Comment: Speci men Type: BLOOD SPECIMENOrdering Facility: [facility] Address: [address] [place] [address] Performed By: #### 2 4323-8 ####[facility] [id number] [place] [address] [place] Bilirubin [Mass/Vol] 0.4 mg/dL Normal 0.2-1.3 [facility] Comment on above: Order Comment: Speci men Type: BLOOD SPECIMENOrdering Facility: [facility] Address: [address] [place] [address] Performed By: #### 2 4323-8 ####[facility] [id number] [place] [address] [place] Calcium [Mass/Vol] 8.2 mg/dL Low 8.5-10.2 [facility] Comment on above: Order Comment: Speci men Type: BLOOD SPECIMENOrdering Facility: [facility] Address: [address] [place] [address] Performed By: #### 2 4323-8 ####[facility] [id number] [place] [address] [place] Chloride [Moles/Vol] 106 mmol/L Normal 98-107 [facility] Comment on above: Order Comment: Speci men Type: BLOOD SPECIMENOrdering Facility: [facility] Address: [address] [place] [address] Performed By: #### 2 4323-8 ####[facility] [id number] [place] [address] [place] CO2 [Moles/Vol] 24 mmol/L Normal 22-30 [facility] Comment on above: Order Comment: Speci men Type: BLOOD SPECIMENOrdering Facility: [facility] Address: [address] [place] [address] Performed By: #### 2 4323-8 ####[facility] [id number] [place] [address] [place] Creatinine [Mass/Vol] 0.74 mg/dL Normal 0.58-0.96 [facility] Comment on above: Order Comment: Jovanny kwon Type: BLOOD SPECIMENOrdering Facility: [facility] Address: [address] [place] [address] Performed By: #### 2 4323-8 ####[facility]CL[facility] [id number] [place] [address] [place] [facility] Creatinine and Glomerular filtration rate.predicted panel (S/P/Bld) 96 mL/min/1.73m??? Normal >=60 [facility] Comment on above: Order Comment: Jovanny kwon Type: BLOOD SPECIMENOrdering Facility: [facility] Address: [address] [place] [address] Result Comment: Brandy mated Glomerular Filtration Rate [...] actual GFR. Performed By: #### 2 4323-8 ####[facility] [id number] [place] [address] [place] Glucose [Mass/Vol] 120 mg/dL High 74-99 [facility] Comment on above: Order Comment: Jovanny kwon Type: BLOOD SPECIMENOrdering Facility: [facility] Address: [address] [place] [address] Result Comment: The [place] [employer] (ADA) provides guidance for cutoff [...] Standards of Medical Care in Diabetes 2016, [place] [employer]. Diabetes Care. 2016.39(Suppl 1). Performed By: #### 2 4323-8 ####[facility] [id number] [place] [address] [place] Potassium [Moles/Vol] 3.9 mmol/L Normal 3.7-5.1 [facility] Comment on above: Order Comment: Speci men Type: BLOOD SPECIMENOrdering Facility: [facility] Address: [address] [place] [address] Performed By: #### 2 4323-8 ####[facility] [id number] [place] [address] [place] Protein [Mass/Vol] 5.8 g/dL Low 6.3-8.0 [facility] Comment on above: Order Comment: Speci men Type: BLOOD SPECIMENOrdering Facility: [facility] Address: [address] [place] [address] Performed By: #### 2 4323-8 ####[facility] [id number] [place] [address] [place] Sodium [Moles/Vol] 139 mmol/L Normal 136-144 [facility] Comment on above: Order Comment: Speci men Type: BLOOD SPECIMENOrdering Facility: [facility] Address: [address] [place] [address] Performed By: #### 2 4323-8 ####[facility]CL[facility] [id number] [place] [id number] [place] Urea nitrogen [Mass/Vol] 12 mg/dL Normal 7-21 [facility] Comment on above: Order Comment: Speci men Type: BLOOD SPECIMENOrdering Facility: [facility] Address: [address] [place] [id number] Performed By: #### 2 4323-8 ####[facility] [id number] [place] [id number] [place] ECG COMPLETEon 04-14-2024 ECG COMPLETE Normal [facility] Fibrinogen PPP-mCncon 2023 Fibrinogen Coag (PPP) [Mass/Vol] 204 mg/dL Normal 200-400 [facility] Comment on above: Order Comment: Speci men Type: BLOOD SPECIMENOrdering Facility: [facility] Address: [address] [place] [address] Performed By: #### 3 255-7 ####[facility] [id number] [place] [address] [place] Gas and Carbon monoxide pane l (BldV)on 04-14-2024 BASE DEFICIT, VENOUS -5 mmol/L Low -2-0 [facility] Comment on above: Order Comment: Speci men Type: VENOUS BLOOD SPECIMENOrdering Facility: [facility] Address: [address] [place] [address] Performed By: #### 2 4344-4 ####[facility] [id number] [place] [address] [place] Calcium.ionized (Bld) [Mass/Vol] 1.14 mmol/L Normal 1.08-1.30 [facility] Comment on above: Order Comment: Speci men Type: VENOUS BLOOD SPECIMENOrdering Facility: [facility] Address: [address] [place] [address] Performed By: #### 2 4344-4 ####[facility] [id number] [place] [id number] [place] Calcium.ionized adjusted to pH 7.4 (BldA) [Moles/Vol] 1.07 mmol/L Low 1.08-1.30 [facility] Comment on above: Order Comment: Speci men Type: VENOUS BLOOD SPECIMENOrdering Facility: [facility] Address: [address] [place] [address] Performed By: #### 2 4344-4 ####[facility]CL[facility] [id number] [place] [address] [place] Carboxyhemoglobin (BldV) [Mass fraction] 1.8 % Normal 0.0-2.0 [facility] Comment on above: Order Comment: Speci men Type: VENOUS BLOOD SPECIMENOrdering Facility: [facility] Address: [address] [place] [address] Result Comment: Carb oxyhemoglobin Reference Range for Smokers: 2.0-8.0% Performed By: #### 2 4344-4 ####[facility]CL[facility] [id number] [place] [address] [place] CO2 (BldV) [Partial pressure] 45 mm[Hg] Normal 42-55 [facility] Comment on above: Order Comment: Speci men Type: VENOUS BLOOD SPECIMENOrdering Facility: [facility] Address: [address] [place] [address] Performed By: #### 2 4344-4 ####[facility]CL[facility] [id number] [place] [address] [place] CO2 adjusted to patient's actual temperature (BldV) [Partial pressure] 45 mmHg Normal 42-55 [facility] Comment on above: Order Comment: Speci men Type: VENOUS BLOOD SPECIMENOrdering Facility: [facility] Address: [address] [place] [address] Performed By: #### 2 4344-4 ####[facility]CL[facility] [id number] [place] [address] [place] Glucose [Mass/Vol] 131 mg/dL High 60-105 [facility] Comment on above: Order Comment: Speci men Type: VENOUS BLOOD SPECIMENOrdering Facility: [facility] Address: [address] [place] [address] Performed By: #### 2 4344-4 ####[facility] [id number] [place] [id number] [place] HCO3 (Bld) [Moles/Vol] 21 mmol/L Low 24-28 [facility] Comment on above: Order Comment: Speci men Type: VENOUS BLOOD SPECIMENOrdering Facility: [facility] Address: [address] [place] [address] Performed By: #### 2 4344-4 ####[facility] [id number] [place] [address] [place] Hematocrit (Bld) [Volume fraction] 33.8 % Low 36.0-46.0 [facility] Comment on above: Order Comment: Speci men Type: VENOUS BLOOD SPECIMENOrdering Facility: [facility] Address: [address] [place] [address] Performed By: #### 2 4344-4 ####[facility] [id number] [place] [address] [place] Hemoglobin (Bld) [Mass/Vol] 11.0 g/dL Low 11.5-15.5 [facility] Comment on above: Order Comment: Speci men Type: VENOUS BLOOD SPECIMENOrdering Facility: [facility] Address: [address] [place] [address] Performed By: #### 2 4344-4 ####[facility] [id number] [place] [address] [place] Methemoglobin (Bld) [Mass fraction] 1.9 % High 0.0-1.5 [facility] Comment on above: Order Comment: Speci men Type: VENOUS BLOOD SPECIMENOrdering Facility: [facility] Address: [address] [place] [address] Performed By: #### 2 4344-4 ####[facility]CL[facility] [id number] [place] [address] [place] Oxygen (BldV) [Partial pressure] 56 mm[Hg] High 35-45 [facility] Comment on above: Order Comment: Speci men Type: VENOUS BLOOD SPECIMENOrdering Facility: [facility] Address: [address] [place] [place] [id number] Performed By: #### 2 4344-4 ####[facility]CL[facility] [id number] [address] [address] [place] Oxygen adjusted to patient's actual temperature (BldV) [Partial pressure] 56 mmHg High 35-45 [facility] Comment on above: Order Comment: Speci men Type: VENOUS BLOOD SPECIMENOrdering Facility: [facility] Address: [address] [place], [place] [address] Performed By: #### 2 4344-4 ####[facility]CL[facility] [id number] [place] [address] [place] Oxygen saturation in Venous blood 84 % Normal 60-85 [facility] Comment on above: Order Comment: Speci men Type: VENOUS BLOOD SPECIMENOrdering Facility: [facility] Address: [address] [place] [address] Performed By: #### 2 4344-4 ####[facility]CL[facility] [id number] [place] [address] [place] Oxyhemoglobin (BldV) [Mass fraction] 81 % Normal 60-85 [facility] Comment on above: Order Comment: Speci men Type: VENOUS BLOOD SPECIMENOrdering Facility: [facility] Address: [address] [place] [id number] Performed By: #### 2 4344-4 ####[facility] [id number] [address] [address] [place] pH (BldV) 7.29 [pH] Low 7.32-7.42 [facility] Comment on above: Order Comment: Speci men Type: VENOUS BLOOD SPECIMENOrdering Facility: [facility] Address: [address] [place], [place] [address] Performed By: #### 2 4344-4 ####[facility]CL[facility] [id number] [place] [address] [place] pH adjusted to patient's actual temperature (BldV) 7.29 Low 7.32-7.42 [facility] Comment on above: Order Comment: Speci men Type: VENOUS BLOOD SPECIMENOrdering Facility: [facility] Address: [address] [place] [address] Performed By: #### 2 4344-4 ####[facility] [id number] [place] [address] [place] Potassium [Moles/Vol] 3.4 mmol/L Low 3.5-5.0 [facility] Comment on above: Order Comment: Speci men Type: VENOUS BLOOD SPECIMENOrdering Facility: [facility] Address: [address] [place] [address] Performed By: #### 2 4344-4 ####[facility] [id number] [place] [address] [place] Sodium [Moles/Vol] 140 mmol/L Normal 136-144 [facility] Comment on above: Order Comment: Speci men Type: VENOUS BLOOD SPECIMENOrdering Facility: [facility] Address: [address] [place] [address] Performed By: #### 2 4344-4 ####[facility] [id number] [place] [address] [place] HIGH SENSITIVITY TROPONIN To n 04-14-2024 Troponin T.cardiac High sensitivity method [Mass/Vol] 946 ng/L High <12 [facility] Comment on above: Order Comment: Speci men Type: BLOOD SPECIMENOrdering Facility: [facility] Address: [address] [place] [address] Performed By: #### H STNT ####[facility] [id number] [place] [id number] [place] INTRAOPERATIVE ECHO PREon INTRAOPERATIVE ECHO PRE Normal [facility] OPERATIVE NOon 04-14-2024 OPERATIVE NO Normal [facility] Platelets Auto (Bld) [#/Vol] on 04-14-2024 Platelets (Bld) [#/Vol] 164 10*3/uL Normal 150-400 [facility] Comment on above: Order Comment: Speci men Type: BLOOD SPECIMENOrdering Facility: [facility] Address: [address] [place] [address] Performed By: #### 7 77-3 ####[facility] [id number] [place] [address] [place] THROMBOGRAPH HEPARINASE PANE Zay 04-14-2024 Clot angle after addition of heparinase TEG (Bld) [Angle] 68.6 degrees Normal 47.0-74.0 [facility] Comment on above: Order Comment: Speci men Type: BLOOD SPECIMENOrdering Facility: [facility] Address: [address] [place] [address] Performed By: #### T EGHPP ####[facility] [id number] [place] [address] [place] Clot Lysis 30 Min post maximum clot amplitude TEG (Bld) [Length fraction] 4.4 % Normal 0.0-8.0 [facility] Comment on above: Order Comment: Speci men Type: BLOOD SPECIMENOrdering Facility: [facility] Address: [address] [place] [address] Performed By: #### T EGHPP ####[facility] [id number] [place] [address] [place] Clotting time after addition of heparinase TEG (Bld) 5.3 minutes Normal 4.0-10.0 [facility] Comment on above: Order Comment: Speci men Type: BLOOD SPECIMENOrdering Facility: [facility] Address: [address] [place] [address] Performed By: #### T EGHPP ####[facility] [id number] [place] [address] [place] Coagulation index TEG Qn (Bld) 0.8 Normal -4.6-3.2 [facility] Comment on above: Order Comment: Jovanny kwon Type: BLOOD SPECIMENOrdering Facility: [facility] Address: [address] [place] [address] Result Comment: The Coagulation Index, a secondary parameter, is labeled by the composite assembler as for research use only and is used per the composite assembler's instructions. Its performance characteristics were determined by [facility]'s [facility] [place] in a manner consistent with CLIA requirements. This test has not been cleared by the [place]. Food and Drug Administration. Performed By: #### T EGHPP ####[facility] [id number] [place] [address] [place] Maximum clot firmness after addition of heparinase TEG (Bld) [Length] 60.9 mm Normal 51.0-75.0 [facility] Comment on above: Order Comment: Jovanny kwon Type: BLOOD SPECIMENOrdering Facility: [facility] Address: [address] [place] [address] Performed By: #### T EGHPP ####[facility] [id number] [place] [address] [place] Thromboelastography after addtion of heparinase panel (Bld) Normal [facility] Comment on above: Order Comment: Jovanny kwon Type: BLOOD SPECIMENOrdering Facility: [facility] Address: [address] [place] [address] Result Comment: A th romboelastograph (TEG) study [...] a timely manner. Performed By: #### T EGHPP ####[facility] [id number] [place] [address] [place] XR CHEST 1V FRONTAL PORTon 0 04-14-2024 XR CHEST 1V FRONTAL PORT Normal [facility] CNCNPATEDon 04-13-2024 CNCNPATED Normal [facility] CNOVon 04-13-2024 CNOV Normal [facility] CNOV Normal [facility] STAPHYLOCOCCUS AUREUS AND MR SA SCREEN, PCR, NASALon 04-13-2024 S. aureus and MRSA panel BAM+probe (Nose) Methicillin-SUSCEPTIBL E Staphylococcus aureus Detected Abnormal Not Detected [facility] Comment on above: Order Comment: Speci men Type: SWABOrdering Facility: [facility] Address: [address] [place] [address] Performed By: #### S APCR ####[facility] [id number] [place] [address] [place] CBC W Auto Differential pane l (Bld)on 04-12-2024 Basophils (Bld) [#/Vol] 0.07 10*3/uL Normal <0.11 [facility] Comment on above: Order Comment: Speci men Type: BLOOD SPECIMENOrdering Facility: [facility] Address: [address] [place] [address] Performed By: #### 5 7021-8 ####[facility] [id number] [place] [address] [place] Basophils/100 WBC (Bld) 1.4 % Normal [facility] Comment on above: Order Comment: Speci men Type: BLOOD SPECIMENOrdering Facility: [facility] Address: [address] [place] [address] Performed By: #### 5 7021-8 ####[facility] [id number] [place] [address] [place] Differential cell count method Nom (Bld) Auto Normal [facility] Comment on above: Order Comment: Speci men Type: BLOOD SPECIMENOrdering Facility: [facility] Address: [address] [place] [address] Performed By: #### 5 7021-8 ####[facility] [id number] [place] [address] [place] Eosinophils (Bld) [#/Vol] 0.32 10*3/uL Normal <0.46 [facility] Comment on above: Order Comment: Speci men Type: BLOOD SPECIMENOrdering Facility: [facility] Address: [address] [place] [address] Performed By: #### 5 7021-8 ####[facility] [id number] [place] [address] [place] Eosinophils/100 WBC (Bld) 6.2 % Normal [facility] Comment on above: Order Comment: Speci men Type: BLOOD SPECIMENOrdering Facility: [facility] Address: [address] [place] [address] Performed By: #### 5 7021-8 ####[facility] [id number] [place] [address] [place] Erythrocyte distribution width (RBC) [Ratio] 12.6 % Normal 11.5-15.0 [facility] Comment on above: Order Comment: Speci men Type: BLOOD SPECIMENOrdering Facility: [facility] Address: [address] [place] [address] Performed By: #### 5 7021-8 ####[facility] [id number] [place] [address] [place] Hematocrit (Bld) [Volume fraction] 39.4 % Normal 36.0-46.0 [facility] Comment on above: Order Comment: Speci men Type: BLOOD SPECIMENOrdering Facility: [facility] Address: [address] [place] [address] Performed By: #### 5 7021-8 ####[facility] [id number] [place] [address] [place] Hemoglobin (Bld) [Mass/Vol] 13.8 g/dL Normal 11.5-15.5 [facility] Comment on above: Order Comment: Speci men Type: BLOOD SPECIMENOrdering Facility: [facility] Address: [address] [place] [address] Performed By: #### 5 7021-8 ####[facility] [id number] [place] [address] [place] Immature granulocytes (Bld) [#/Vol] 10*3/uL Normal <0.10 [facility] Comment on above: Order Comment: Speci men Type: BLOOD SPECIMENOrdering Facility: [facility] Address: [address] [place] [address] Performed By: #### 5 7021-8 ####[facility] [id number] [place] [address] [place] Immature granulocytes/100 WBC (Bld) 0.2 % Normal [facility] Comment on above: Order Comment: Speci men Type: BLOOD SPECIMENOrdering Facility: [facility] Address: [address] [place] [address] Performed By: #### 5 7021-8 ####[facility] [id number] [place] [address] [place] Lymphocytes (Bld) [#/Vol] 1.80 10*3/uL Normal 1.00-4.00 [facility] Comment on above: Order Comment: Speci men Type: BLOOD SPECIMENOrdering Facility: [facility] Address: [address] [place] [address] Performed By: #### 5 7021-8 ####[facility] [id number] [place] [address] [place] Lymphocytes/100 WBC (Bld) 35.1 % Normal [facility] Comment on above: Order Comment: Speci men Type: BLOOD SPECIMENOrdering Facility: [facility] Address: [address] [place] [address] Performed By: #### 5 7021-8 ####[facility] [id number] [place] [address] [place] MCH (RBC) [Entitic mass] 35.5 pg High 26.0-34.0 [facility] Comment on above: Order Comment: Speci men Type: BLOOD SPECIMENOrdering Facility: [facility] Address: [address] [place] [address] Performed By: #### 5 7021-8 ####[facility] [id number] [place] [address] [place] MCHC (RBC) [Mass/Vol] 35.0 g/dL Normal 30.5-36.0 [facility] Comment on above: Order Comment: Speci men Type: BLOOD SPECIMENOrdering Facility: [facility] Address: [address] [place] [address] Performed By: #### 5 7021-8 ####[facility] [id number] [place] [address] [place] MCV (RBC) [Entitic vol] 101.3 fL High 80.0-100.0 [facility] Comment on above: Order Comment: Speci men Type: BLOOD SPECIMENOrdering Facility: [facility] Address: [address] [place] [address] Performed By: #### 5 7021-8 ####[facility] LABCL[facility] [id number] [place] [address] [place] Monocytes (Bld) [#/Vol] 0.61 10*3/uL Normal <0.87 [facility] Comment on above: Order Comment: Speci men Type: BLOOD SPECIMENOrdering Facility: [facility] Address: [address] [place] [address] Performed By: #### 5 7021-8 ####[facility]CL[facility] [id number] [place] [address] [place] Monocytes/100 WBC (Bld) 11.9 % Normal [facility] Comment on above: Order Comment: Speci men Type: BLOOD SPECIMENOrdering Facility: [facility] Address: [address] [place] [address] Performed By: #### 5 7021-8 ####[facility] [id number] [place] [address] [place] Neutrophils (Bld) [#/Vol] 2.32 10*3/uL Normal 1.45-7.50 [facility] Comment on above: Order Comment: Speci men Type: BLOOD SPECIMENOrdering Facility: [facility] Address: [address] [place] [address] Performed By: #### 5 7021-8 ####[facility]CL[facility] [id number] [place] [address] [place] Neutrophils/100 WBC (Bld) 45.2 % Normal [facility] Comment on above: Order Comment: Speci men Type: BLOOD SPECIMENOrdering Facility: [facility] Address: [address] [place] [address] Performed By: #### 5 7021-8 ####[facility]CL[facility] [id number] [place] [address] [place] Nucleated RBC (Bld) [#/Vol] 10*3/uL Normal <0.01 [facility] Comment on above: Order Comment: Speci men Type: BLOOD SPECIMENOrdering Facility: [facility] Address: [address] [place] [address] Performed By: #### 5 7021-8 ####[facility]CL[facility] [id number] [place] [address] [place] Nucleated RBC/100 WBC (Bld) [Ratio] 0.0 /100 WBC Normal [facility] Comment on above: Order Comment: Speci men Type: BLOOD SPECIMENOrdering Facility: [facility] Address: [address] [place] [address] Performed By: #### 5 7021-8 ####[facility] [id number] [place] [address] [place] Platelet mean volume (Bld) [Entitic vol] 9.7 fL Normal 9.0-12.7 [facility] Comment on above: Order Comment: Speci men Type: BLOOD SPECIMENOrdering Facility: [facility] Address: [address] [place] [address] Performed By: #### 5 7021-8 ####[facility] [id number] [place] [address] [place] Platelets (Bld) [#/Vol] 237 10*3/uL Normal 150-400 [facility] Comment on above: Order Comment: Speci men Type: BLOOD SPECIMENOrdering Facility: [facility] Address: [address] [place] [address] Performed By: #### 5 7021-8 ####[facility] [id number] [place] [address] [place] RBC (Bld) [#/Vol] 3.89 10*6/uL Low 3.90-5.20 [facility] Comment on above: Order Comment: Speci men Type: BLOOD SPECIMENOrdering Facility: [facility] Address: [address] [place], [place] [id number] Performed By: #### 5 7021-8 ####[facility]CL[facility] [id number] [place] [address] [place] WBC (Bld) [#/Vol] 5.13 10*3/uL Normal 3.70-11.00 [facility] Comment on above: Order Comment: Speci men Type: BLOOD SPECIMENOrdering Facility: [facility] Address: [address] [place] [address] Performed By: #### 5 7021-8 ####[facility]CL[facility] [id number] [place] [address] [place] CNOVon 04-12-2024 CNOV Normal [facility] CONFIRM BLOOD TYPEon 024 ABO A Normal [facility] Comment on above: Order Comment: Speci men Type: BLOOD SPECIMENOrdering Facility: [facility] Address: [address] [place] [address] Performed By: #### C ONABO ####[facility] BLOOD BANKCLIA [id number] [place] [address] [place] Rh Nom (Bld) Negative Normal [facility] Comment on above: Order Comment: Speci men Type: BLOOD SPECIMENOrdering Facility: [facility] Address: [address] [place] [address] Performed By: #### C ONABO ####[facility] BLOOD BANKCLIA [id number] [place] [address] [place] CTA C/A/P (GATED) W IVCONon 04-12-2024 CTA C/A/P (GATED) W IVCON Normal [facility] CTA Chest vessels and Abdomi nal vessels and Pelvis vessels W contrast [place] 04-12-2024 IMPRESSION: Mildly dilated aortic root 4.3x4.2 cm measured kxiyr-eu-volds . Tricuspid aortic valve Chief Juvenile Probation Officer: CHERYL Transcribe Date/Time: Apr 12 2024 11:17A Dictated by : CHERYL SOLANO MD This examination was interpreted and the report reviewed and electronically signed by: CHERYL SOLANO MD on Apr 12 2024 11:40AM [facility] DIVISION OF RADIOLOGY * * *Final Report* [...] AORTIC DIMENSIONS: AORTIC ROOT: 4.3x4.2 cm measured dejbd-hy-usevy mid ASCENDING THORACIC AORTA: 3.5 cm mid [...] unremarkable, within limitations of the current study Telecommunication Tower Technician (topogram) images: No additional findings. DIVISION OF RADIOLOGY Provider, [facility] - 04/12/2024 * * *Final Report* [...] AORTIC DIMENSIONS: AORTIC ROOT: 4.3x4.2 cm measured jvhrx-qz-ystac mid ASCENDING THORACIC AORTA: 3.5 cm mid [...] unremarkable, within limitations of the current study Telecommunication Tower Technician (topogram) images: No additional findings. IMPRESSION IMPRESSION: Mildly dilated aortic root 4.3x4.2 cm measured dybgy-vp-avfvz . Tricuspid aortic valve Chief Juvenile Probation Officer: CHERYL Transcribe Date/Time: Apr 12 2024 11:17A Dictated by : CHERYL SOLANO MD This examination was interpreted and the report reviewed and electronically signed by: CHERYL SOLANO MD on Apr 12 2024 11:40AM EST [facility] Radiology Study observation (narrative) [facility] CTA Chest vessels and Abdomi nal vessels and Pelvis vessels W contrast IVOrdered By: Ccf Provider on 04-12-2024 [facility] Comprehensive metabolic 2000 panelon 04-12-2024 Albumin [Mass/Vol] 4.4 g/dL Normal 3.9-4.9 [facility] Comment on above: Order Comment: Speci men Type: BLOOD SPECIMENOrdering Facility: [facility] Address: [address] [place] [address] Performed By: #### 2 4323-8, 2531-0 ####[facility] [id number] [place] [address] [place] ALP [Catalytic activity/Vol] 78 U/L Normal 34-123 [facility] Comment on above: Order Comment: Speci men Type: BLOOD SPECIMENOrdering Facility: [facility] Address: [address] [place] [address] Performed By: #### 2 432-8, 2531-0 ####[facility] [id number] [place] [address] [place] ALT [Catalytic activity/Vol] 26 U/L Normal 7-38 [facility] Comment on above: Order Comment: Speci men Type: BLOOD SPECIMENOrdering Facility: [facility] Address: [address] [place] [address] Performed By: #### 2 432-8, 2531-0 ####[facility] [id number] [place] [id number] [place] Anion gap [Moles/Vol] 14 mmol/L Normal 8-15 [facility] Comment on above: Order Comment: Speci men Type: BLOOD SPECIMENOrdering Facility: [facility] Address: [address] [place] [address] Performed By: #### 2 4323-8, 2-0 ####[facility] LABCL[facility] [id number] [place] [id number] [place] AST [Catalytic activity/Vol] 29 U/L Normal 13-35 [facility] Comment on above: Order Comment: Speci men Type: BLOOD SPECIMENOrdering Facility: [facility] Address: [address] [place] [address] Performed By: #### 2 432-8, 2531-0 ####[facility]CL[facility] [id number] [place] [address] [place] Bilirubin [Mass/Vol] 0.6 mg/dL Normal 0.2-1.3 [facility] Comment on above: Order Comment: Speci men Type: BLOOD SPECIMENOrdering Facility: [facility] Address: [address] [place] [address] Performed By: #### 2 4328, 2531-0 ####[facility] [id number] [place] [address] [place] Calcium [Mass/Vol] 9.6 mg/dL Normal 8.5-10.2 [facility] Comment on above: Order Comment: Speci men Type: BLOOD SPECIMENOrdering Facility: [facility] Address: [address] [place] [address] Performed By: #### 2 4328, 2531-0 ####[facility]CL[facility] [id number] [place] [address] [place] Chloride [Moles/Vol] 103 mmol/L Normal 98-107 [facility] Comment on above: Order Comment: Speci men Type: BLOOD SPECIMENOrdering Facility: [facility] Address: [address] [place] [address] Performed By: #### 2 4323-8, 2531-0 ####[facility]CL[facility] [id number] [place] [id number] [place] CO2 [Moles/Vol] 24 mmol/L Normal 22-30 [facility] Comment on above: Order Comment: Speci men Type: BLOOD SPECIMENOrdering Facility: [facility] Address: [address] [place] [address] Performed By: #### 2 4323-8, 2531-0 ####[facility]CL[facility] [id number] [place] [address] [place] Creatinine [Mass/Vol] 0.88 mg/dL Normal 0.58-0.96 [facility] Comment on above: Order Comment: Speci men Type: BLOOD SPECIMENOrdering Facility: [facility] Address: [address] [place] [address] Performed By: #### 2 4323-8, 0 ####[facility] [id number] [place] [address] [place] Creatinine and Glomerular filtration rate.predicted panel (S/P/Bld) 78 mL/min/1.73m??? Normal >=60 [facility] Comment on above: Order Comment: Speci men Type: BLOOD SPECIMENOrdering Facility: [facility] Address: [address] [place] [address] Result Comment: Brandy mated Glomerular Filtration Rate [...] actual GFR. Performed By: #### 2 4323-8, 2531-0 ####[facility]CL[facility] [id number] [place] [address] [place] Glucose [Mass/Vol] 88 mg/dL Normal 74-99 [facility] Comment on above: Order Comment: Speci men Type: BLOOD SPECIMENOrdering Facility: [facility] Address: [address] [place] [address] Result Comment: The [place] [employer] (ADA) provides guidance for cutoff [...] Standards of Medical Care in Diabetes 2016, [place] [employer]. Diabetes Care. 2016.39(Suppl 1). Performed By: #### 2 4323-8, 2531-0 ####[facility] [id number] [place] [address] [place] Potassium [Moles/Vol] 3.9 mmol/L Normal 3.7-5.1 [facility] Comment on above: Order Comment: Speci men Type: BLOOD SPECIMENOrdering Facility: [facility] Address: [address] [place] [address] Performed By: #### 2 4323-8, 2531-0 ####[facility] [id number] [place] [address] [place] Protein [Mass/Vol] 7.4 g/dL Normal 6.3-8.0 [facility] Comment on above: Order Comment: Speci men Type: BLOOD SPECIMENOrdering Facility: [facility] Address: [address] [place] [id number] Performed By: #### 2 4323-8, 2531-0 ####[facility] [id number] [place] [address] [place] Sodium [Moles/Vol] 141 mmol/L Normal 136-144 [facility] Comment on above: Order Comment: Speci men Type: BLOOD SPECIMENOrdering Facility: [facility] Address: [address] [place] [address] Performed By: #### 2 4323-8, 2532-0 ####[facility] [id number] [place] [address] [place] Urea nitrogen [Mass/Vol] 12 mg/dL Normal 7-21 [facility] Comment on above: Order Comment: Jakei men Type: BLOOD SPECIMENOrdering Facility: [facility] Address: [address] [place] [address] Performed By: #### 2 4323-8, 2532-0 ####[facility] [id number] [place] [address] [place] LEG94el 04-12-2024 ECG01 Normal [facility] LDH SerPl-cCncon 04-12-2024 LDH [Catalytic activity/Vol] 191 U/L Normal 135-214 [facility] Comment on above: Order Comment: Jovanny kwon Type: BLOOD SPECIMENOrdering Facility: [facility] Address: [address] [place] [address] Performed By: #### 2 4323-8, 2532-0 ####[facility] [id number] [place] [address] [place] PT panel Coag (PPP)on 2023 INR Coag (PPP) [Relative time] 1.0 {INR} Normal 0.9-1.3 [facility] Comment on above: Order Comment: Jovanny kwon Type: BLOOD SPECIMENOrdering Facility: [facility] Address: [address] [place] [address] Result Comment: Adina min K Antagonist (VKA) Therapeutic Range: INR 2 to 3 (Target INR of 2.5)Note: For patients treated with VKA drugs, such as warfarin, the [place] [employer] 2012 Guideline recommends [...] 2.5 to 3.5 (target INR of 3).Boni JAVIER, et al. Chest 2012, 141:7S-47SMargaret RA, et al. [facility] 2017, 70: 252-289 Performed By: #### 1 4979-9, 48928-3 ####[facility] LABCL[facility] [id number] [place] [address] [place] PT Coag (PPP) [Time] 10.4 s Normal 9.7-13.0 [facility] Comment on above: Order Comment: Speci men Type: BLOOD SPECIMENOrdering Facility: [facility] Address: [address] [place] [address] Performed By: #### 1 4979-9, 74725-1 ####[facility]CL[facility] [id number] [place] [address] [place] TYPE AND SCREEN,30 DAYon ABO A Normal [facility] Comment on above: Order Comment: Speci men Type: BLOOD SPECIMENOrdering Facility: [facility] Address: [address] [place] [address] Performed By: #### T SCR30 ####[facility] BLOOD BANKCLIA [id number] [place] [address] [place] HISTORICAL AB SCR STATUS Negative Normal [facility] Comment on above: Order Comment: Speci men Type: BLOOD SPECIMENOrdering Facility: [facility] Address: [address] [place] [address] Performed By: #### T SCR30 ####[facility] BLOOD BANKCLIA [id number] [place] [address] [place] Rh Nom (Bld) Negative Normal [facility] Comment on above: Order Comment: Speci men Type: BLOOD SPECIMENOrdering Facility: [facility] Address: [address] [place] [address] Performed By: #### T SCR30 ####[facility] BLOOD [facility] [id number] [place] [address] [place] URINALYSIS, DIPSTICK ONLYon 04-12-2024 Bilirubin Ql (U) Negative Normal Negative [facility] Comment on above: Order Comment: Speci men Type: URINE SPECIMENOrdering Facility: [facility] Address: [address] [place] [address] Performed By: #### U A ####[facility] [id number] [place] [address] [place] Clarity (Unsp spec) Clear Normal Clear [facility] Comment on above: Order Comment: Speci men Type: URINE SPECIMENOrdering Facility: [facility] Address: [address] [place] [address] Performed By: #### U A ####[facility] LABCLIA [id number] [place] [address] [place] Color (U) Yellow Normal Yellow [facility] Comment on above: Order Comment: Speci men Type: URINE SPECIMENOrdering Facility: [facility] Address: [address] [place] [address] Performed By: #### U A ####[facility] LABCL[facility] [id number] [place] [address] [place] Glucose Test strip (U) [Mass/Vol] Negative Normal Negative [facility] Comment on above: Order Comment: Speci men Type: URINE SPECIMENOrdering Facility: [facility] Address: [address] [place] [address] Performed By: #### U A ####[facility] LABCLIA [id number] [place] [address] [place] Hemoglobin Ql (U) Negative Normal Negative [facility] Comment on above: Order Comment: Speci men Type: URINE SPECIMENOrdering Facility: [facility] Address: [address] [place] [address] Performed By: #### U A ####[facility]CLIA [id number] [place] [address] [place] Ketones Ql (U) Negative Normal Negative [facility] Comment on above: Order Comment: Speci men Type: URINE SPECIMENOrdering Facility: [facility] Address: [address] [place] [address] Performed By: #### U A ####[facility] LABCLIA [id number] [place] [address] [place] Leukocyte esterase Test strip Ql (U) Negative Normal Negative [facility] Comment on above: Order Comment: Speci men Type: URINE SPECIMENOrdering Facility: [facility] Address: [address] [place] [address] Performed By: #### U A ####[facility]CL[facility] [id number] [place] [address] [place] Nitrite Ql (U) Negative Normal Negative [facility] Comment on above: Order Comment: Speci men Type: URINE SPECIMENOrdering Facility: [facility] Address: [address] [place] [address] Performed By: #### U A ####[facility]CL[facility] [id number] [place] [address] [place] pH (U) 5.5 [pH] Normal <8.5 [facility] Comment on above: Order Comment: Speci men Type: URINE SPECIMENOrdering Facility: [facility] Address: [address] [place] [address] Performed By: #### U A ####[facility]CL[facility] [id number] [place] [address] [place] Protein (U) [Mass/Vol] Negative Normal Negative [facility] Comment on above: Order Comment: Speci men Type: URINE SPECIMENOrdering Facility: [facility] Address: [address] [place] [address] Performed By: #### U A ####[facility] [id number] [place] [address] [place] Specific gravity (U) [Rel density] 1.018 Normal 1.005-1.030 [facility] Comment on above: Order Comment: Speci men Type: URINE SPECIMENOrdering Facility: [facility] Address: [address] [place] [address] Performed By: #### U A ####[facility] [id number] [place] [address] [place] Urobilinogen Ql (U) 0.2 EU/dL Normal 0.2-1.0 EU/dL [facility] Comment on above: Order Comment: Speci men Type: URINE SPECIMENOrdering Facility: [facility] Address: [address] [place] [address] Performed By: #### U A ####[facility] [id number] [place] [address] [place] XR CHEST 2V FRONTAL/LATon XR CHEST 2V FRONTAL/LAT Normal [facility] XR Chest PA and Lateralon IMPRESSION: No acute radiographic abnormality. Chief Juvenile Probation Officer: [facility] Transcribe Date/Time: Apr 12 2024 2:24P Dictated by : BOBY GARCIA MD This examination was interpreted and the report reviewed and electronically signed by: BOBY GARCIA MD on Apr 12 2024 2:25PM [facility] DIVISION OF RADIOLOGY * * *Final Report* [...] soft tissues: Unremarkable. DIVISION OF RADIOLOGY Provider, Rey Woods - 04/12/2024 * * *Final Report* * [...] Unremarkable. IMPRESSION IMPRESSION: No acute radiographic abnormality. Chief Juvenile Probation Officer: CHERYL Transcribe Date/Time: Apr 12 2024 2:24P Dictated by : BOBY GARCIA MD This examination was interpreted and the report reviewed and electronically signed by: BOBY GARCIA MD on Apr 12 2024 2:25PM EST [facility] Radiology Study observation (narrative) [facility] XR Chest PA and LateralOrder ed By: Ccf Provider on 04-12-2024 [facility] aPTT PPPon 04-12-2024 aPTT Coag (PPP) [Time] 26.9 s Normal 23.0-32.4 [facility] Comment on above: Order Comment: Speci men Type: BLOOD SPECIMENOrdering Facility: [facility] Address: [address] [place] [address] Performed By: #### 1 4979-9, 00479-4 ####[facility] LAB[facility] [id number] [address] [address] [place] CNPNon 03-09-2024 CNPN Normal [facility] CARD CATH DIAGNOSTICon 03-08 CARD CATH DIAGNOSTIC Site Id: [id number] Lab #: DEFAULT Study Date: 03/08/2024 Start Time: End Time: Name Duty Darien Chandler MD PROC MD 1 Bjorn King RN PROC SCRUB 1 John Joseph PROC CIRC 1 Lucius Urias RN PROC [...] No Myocardial (more content not included)... Normal [facility] HISTORY PHYSICALon HISTORY PHYSICAL HNO ID: [id number] Author: DARIEN CHANDLER MD Service: Cardiovascular Surgery [...] March 08, 2024 TIME: 8:26 AM Normal [facility] NURSING PROGon 03-08-2024 NURSING PROG HNO ID: [id number] Author: FARHANA NAVAS RN Service: ? Author Type: Registered Nurse Type: Nursing Progress Note Filed: 03/08/2024 11:52 Note Text: 1115 TR band removed, band aid applied, 2+ radial pulse, hand warm + cap refill. Home instructions reinforced. Right brachial dressing remains D/I Normal [facility] NURSING PROG HNO ID: [id number] Author: FARHANA NAVAS RN Service: ? Author Type: Registered Nurse Type: Nursing Progress Note Filed: 03/08/2024 09:21 Note Text: 0915 patient return to POD, right TR band on 1+ radial pulse, hand warm + cap refill, right brachial sheath intact site soft. Home instructions initiated, continue to monitor Normal [facility] Basic metabolic 2000 panelon 02-27-2024 Anion gap [Moles/Vol] 9 mmol/L Normal 8-15 [facility] Comment on above: Order Comment: Speci men Type: BLOOD SPECIMENOrdering Facility: [facility] Address: [address] [place] [address] Performed By: #### 2 4321-2 ####[facility] [id number] [place] [address] [place] Calcium [Mass/Vol] 9.9 mg/dL Normal 8.5-10.2 [facility] Comment on above: Order Comment: Speci men Type: BLOOD SPECIMENOrdering Facility: [facility] Address: [address] [place] [address] Performed By: #### 2 4321-2 ####[facility] [id number] [place] [address] [place] Chloride [Moles/Vol] 103 mmol/L Normal 98-107 [facility] Comment on above: Order Comment: Speci men Type: BLOOD SPECIMENOrdering Facility: [facility] Address: [address] [place] [address] Performed By: #### 2 4321-2 ####[facility]UTENCA [id number] [place] [address] [place] CO2 [Moles/Vol] 25 mmol/L Normal 22-30 [facility] Comment on above: Order Comment: Speci men Type: BLOOD SPECIMENOrdering Facility: [facility] Address: [address] [place] [address] Performed By: #### 2 4321-2 ####[facility]UTENCLI [id number] [place] [address] [place] Creatinine [Mass/Vol] 0.79 mg/dL Normal 0.58-0.96 [facility] Comment on above: Order Comment: Speci men Type: BLOOD SPECIMENOrdering Facility: [facility] Address: [address] [place] [address] Performed By: #### 2 4321-2 ####[facility] [id number] [place] [address] [place] Creatinine and Glomerular filtration rate.predicted panel (S/P/Bld) 89 mL/min/1.73m??? Normal >=60 [facility] Comment on above: Order Comment: [facility] Type: BLOOD SPECIMENOrdering Facility: [facility] Address: [address] [place] [address] Result Comment: Brandy mated Glomerular Filtration Rate [...] actual GFR. Performed By: #### 2 4321-2 ####[facility] [id number] [place] [address] [place] Glucose [Mass/Vol] 101 mg/dL High 74-99 [facility] Comment on above: Order Comment: Speci men Type: BLOOD SPECIMENOrdering Facility: [facility] Address: [address] [place] [address] Result Comment: The [place] Diabetes Association (ADA) provides guidance for cutoff [...] Standards of Medical Care in Diabetes 2016, [place] Diabetes Association. Diabetes Care. 2016.39(Suppl 1). Performed By: #### 2 4321-2 ####[facility] [id number] [place] [address] [place] Potassium [Moles/Vol] 4.0 mmol/L Normal 3.7-5.1 [facility] Comment on above: Order Comment: Jovanny kwon Type: BLOOD SPECIMENOrdering Facility: [facility] Address: [address] [place] [address] Performed By: #### 2 4321-2 ####[facility] [id number] [place] [address] [place] Sodium [Moles/Vol] 137 mmol/L Normal 136-144 [facility] Comment on above: Order Comment: Jovanny kwon Type: BLOOD SPECIMENOrdering Facility: [facility] Address: [address] [place] [address] Performed By: #### 2 4321-2 ####[facility] [id number] [place] [address] [place] Urea nitrogen [Mass/Vol] 13 mg/dL Normal 7-21 [facility] Comment on above: Order Comment: Speci men Type: BLOOD SPECIMENOrdering Facility: [facility] Address: [address] [place] [address] Performed By: #### 2 4321-2 ####[facility] [id number] [place] [address] [place] CBC panel Auto (Bld)on 02-26 Erythrocyte distribution width (RBC) [Ratio] 12.3 % Normal 11.5-15.0 [facility] Comment on above: Order Comment: Speci men Type: BLOOD SPECIMENOrdering Facility: [facility] Address: [address] [place] [address] Performed By: #### 5 8410-2 ####[facility]UTENCSHRINERS H[facility] FOR [facility] [id number] [place] [address] [place] Hematocrit (Bld) [Volume fraction] 40.7 % Normal 36.0-46.0 [facility] Comment on above: Order Comment: Speci men Type: BLOOD SPECIMENOrdering Facility: [facility] Address: [address] [place] [address] Performed By: #### 5 8410-2 ####[facility] [id number] [place] [address] [place] Hemoglobin (Bld) [Mass/Vol] 14.2 g/dL Normal 11.5-15.5 [facility] Comment on above: Order Comment: Speci men Type: BLOOD SPECIMENOrdering Facility: [facility] Address: [address] [place] [address] Performed By: #### 5 8410-2 ####[facility] [id number] [place] [address] [place] MCH (RBC) [Entitic mass] 34.2 pg High 26.0-34.0 [facility] Comment on above: Order Comment: Speci men Type: BLOOD SPECIMENOrdering Facility: [facility] Address: [address] [place] [address] Performed By: #### 5 8410-2 ####[facility]UTENCLIA [id number] [place] [address] [place] MCHC (RBC) [Mass/Vol] 34.9 g/dL Normal 30.5-36.0 [facility] Comment on above: Order Comment: Speci men Type: BLOOD SPECIMENOrdering Facility: [facility] Address: [address] [place] [address] Performed By: #### 5 8410-2 ####[facility]DEZDEREK [id number] [place] [address] [place] MCV (RBC) [Entitic vol] 98.1 fL Normal 80.0-100.0 [facility] Comment on above: Order Comment: Speci men Type: BLOOD SPECIMENOrdering Facility: [facility] Address: [address] [place] [address] Performed By: #### 5 8410-2 ####[facility]UTENCSHRINERS H[facility]ALS FOR CHIL[facility]EN [id number] [place] [address] [place] Nucleated RBC (Bld) [#/Vol] 10*3/uL Normal <0.01 [facility] Comment on above: Order Comment: Speci men Type: BLOOD SPECIMENOrdering Facility: [facility] Address: [address] [place] [address] Performed By: #### 5 8410-2 ####[facility] SERVICES[facility] [id number] [place] [address] [place] Platelet mean volume (Bld) [Entitic vol] 9.5 fL Normal 9.0-12.7 [facility] Comment on above: Order Comment: Speci men Type: BLOOD SPECIMENOrdering Facility: [facility] Address: [address] [place] [address] Performed By: #### 5 8410-2 ####[facility] [id number] [place] [address] [place] Platelets (Bld) [#/Vol] 268 10*3/uL Normal 150-400 [facility] Comment on above: Order Comment: Speci men Type: BLOOD SPECIMENOrdering Facility: [facility] Address: [address] [place] [address] Performed By: #### 5 8410-2 ####[facility]ENTERTOWNCLIA [id number] [place] [address] [place] RBC (Bld) [#/Vol] 4.15 10*6/uL Normal 3.90-5.20 [facility] Comment on above: Order Comment: Speci men Type: BLOOD SPECIMENOrdering Facility: [facility] Address: [address] [place] [address] Performed By: #### 5 8410-2 ####[facility] INSTITUTENCLIA [id number] [place] [address] [place] WBC (Bld) [#/Vol] 4.45 10*3/uL Normal 3.70-11.00 [facility] Comment on above: Order Comment: Speci men Type: BLOOD SPECIMENOrdering Facility: [facility] Address: [address] [place] [address] Performed By: #### 5 8410-2 ####[facility]STITUTENCLIA [id number] [address] [facility] Roland [facility]-20[facility]SINT[facility]XZERES[facility] CAMMIE BHAT ([id number]) 1970 F Date Time Provider Department 02/27/24 MAULIK MITCHELL During your visit today, we recorded the following information about you: Kendall Vicente MA 02/27/2024 2:25 PM Signed Phoned pt regarding future appts [facility] 03/10/24 10am PFT AND 11am CT Chest no prep required. Received dental clearance from Dr. Terry Manzano office phone [phone] form scanned into documents on 02/27/24 Also [...] Encounter Status:Closed by TAY [facility] (AKCATH) CAMMIE BHAT ([id number]) 1970 F Date Time Provider Department 02/25/24 MAULIK MITCHELL During your visit today, we recorded the following information about you: Sophie Silverman 02/25/2024 10:20 AM Signed Schedule LHC on 03/02/2024 with Dio Munoz RN 02/25/2024 10:59 AM Signed Left message on voicemail requesting pt return call for heart cath date and instructions. Office phone number provided. SEBASTIAN Fletcher Stacey, RN 02/25/2024 11:06 AM Signed Spoke with pt. She will be out of town 02/27 - 03/05. She reports any day week of 03/08/24 should work. [facility] MonicaSophie 02/25/2024 11:23 AM Signed Reschedule LHC on [...] [I34.0] Order(s):BASIC METABOLIC PANEL [SQBMP] Order #: [id number] FUTURE COMPLETE BLOOD COUNT [SQCBC] Order #: [id number] FUTURE Prescriptions as of 02/25/2024 - metoprolol [...] Encounter Status:Closed by SOPHIE SILVERMAN on 02/25/24 [facility] CNOVon 02-24-2024 CNOV Office Visit (AGVASACC) CAMMIE BHAT ([id number]) 1970 F Date Time Provider Department 02/24/24 2:00 PM MAULIK MITCHELL During your visit today, we recorded the following information about you: Pulse Blood pressure Weight Height 80/minute 110/80 79.7 kg 1.753 m Alma Ramos LPN 02/24/2024 1:54 PM Signed CARDIAC REHAB 5 METER WALK TEST SERVICE DATE: 02/24/2024 SERVICE TIME: 1:46PM 4.77secf 4.28sec 4.25sec ASSESSMENT: SIGNATURE: Alma Ramos LPN PATIENT NAME: Cammie Bhat DATE: February 24, 2024 TIME: 1:54 PM PAGER/CONTACT #: [phone] Betty Jack APRN.MELLO 02/24/2024 3:[address] STS for Isolated [...] 41.2%, WBC Count: 6.9 10?/?L, Platelet Count: 265994 cells/?L Substance Abuse: Former smoker Risk Factors / Comorbidities: Hypertension Cardiac Status: Ejection Fraction = 65% Coronary Artery Disease: No coronary symptoms Valve Disease: Severe MR, Mild TR Betty Jack APRN.CNP 02/24/2024 2:47 PM Addendum You came in [...] call us if you have any concerns/questions: [phone] Betty Jack APRN.CNP Cardiothoracic surgery Maulik James MD 02/24/2024 3:40 PM Signed CARDIOTHORACIC SURGERY [...] no other cardiac history such as CHF, MS, angina. No history of other vascular disea (more content not included)... [facility] Telephone ([employer]) CAMMIE BHAT ([id number]) 1970 F Date Time Provider Department 02/18/24 MAULIK MITCHELL During your visit today, we recorded the following information about you: Obdulio Peoples 02/18/2024 2:20 PM Signed LVM to schedule with Dr Mitchell New Patient Referral from Jeyson Galvan EMPLOYEE BENEFITS COORDINATOR, EMPLOYEE BENEFITS COORDINATOR-C [phone] for Nonrheumatic Mitral Valve Insufficiency, Nonrheumatic Mitral Valve Prolapse with EXTERNAL [facility] ECHO 01/12/2024 Allergies As of Date: 02/18/2024 Noted Allergy Reaction HYOSCYAMINE 01/15/2023 8 - GI Upset Comments: emesis HYDROCODONE 05/15/2021 8 - GI Upset IXEKIZUMAB 01/15/2023 7 - Swelling PENICILLINS 10/03/2005 4 - Hives Date Reviewed: 01/09/2024 Reviewed by: Troy Byrd APRN.AIRCRAFT MAINTENANCE ENGINEER - Fully Assessed Reason for Visit: Consult [...] Encounter Status:Closed by OBDULIO PEOPLES on 02/18/24 [facility] 02-16-2024 CNPN Telephone (AGCARDPOB ) CAMMIE BHAT ([id number]) 1970 F Date Time Provider Department 02/16/24 NAOMY THOMAS During your visit today, we recorded the following information about you: Dio Mary, SEBASTIAN 02/16/2024 1:43 PM Signed Pt calls to report she had her WALTER this morning with Dr Dietz at [facility]. She reports Dr Dietz advised her to cancel ablation and have her mitral valve fixed. I phoned [facility]. Atilio is agreeable to fax WALTER report to [phone]. SEBASTIAN Fletcher Stacey, RN 02/16/2024 2:58 PM Signed WALTER report to Dr Thomas's POB door box. SEBASTIAN Fletcher Stacey, SEBASTIAN 02/20/2024 8:52 AM Signed Naomy Thomas MD [...] Date Reviewed: 01/09/2024 Reviewed by: Troy Byrd APRN.AIRCRAFT MAINTENANCE ENGINEER - Fully Assessed Reason for Visit: Patient [...] Status:Closed by DIO MARY on 02/24/24 Normal [facility] Echo Transesophageal (WALTER)on 02-16-2024 Echo Transesophageal (WALTER) [facility] [address] [place] [address] Echo Transesophageal (WALTER) 02/16/24 0950 MR#: [id number] Acct: [id number] Name: CAMMIE BHAT Rep #: [id number] : 1970 53 From: Roger Dietz MD Attending Dr: Jeyson Galvan EMPLOYEE BENEFITS COORDINATOR-C Status: [facility] Ordering Dr: Jeyson Galvan EMPLOYEE BENEFITS COORDINATOR EMPLOYEE BENEFITS COORDINATOR-C Date: 02/16/24 Location: [facility] Sex: F C Admitted: Reason For Study: Mitral Valve Regurgitation Medication WALTER probe 6VT-D (SN [id number]) passed without difficulty. No complications were noted. Cetacaine Topical [place] given X3 orally. Versed 1 mg given [...] Referring Physician: Jeyson Galvan Performed By: Cande Gibbons RDCS 02/16/24 110 Date Roger Dietz MD CC: NADYA Galvan; Dr. Nathan Guzman, DO Date Dictated: 02/16/24949 Date Transcribed: 02/16/241101 Chief Juvenile Probation Officer: [facility] 02-12-2024 [facility] Telephone (AGCARDPOB ) CAMMIE BHAT ([id number]) 1970 F Date Time Provider Department 02/12/24 NAOMY THOMAS AGCARDPOB During your visit today, we recorded the following information about you: Allergies As of Date: 02/12/2024 Noted Allergy Reaction HYOSCYAMINE 01/15/2023 8 - GI Upset Comments: emesis HYDROCODONE 05/15/2021 8 - GI Upset IXEKIZUMAB 01/15/2023 7 - Swelling PENICILLINS 10/03/2005 4 - Hives Date Reviewed: 01/09/2024 Reviewed by: Troy Byrd APRN.[facility] - Fully Assessed Reason for Visit: Preparations [...] - PHENYLephrine 100 mcg injection - fentaNYL OFFSET PRINTER 20 mcg/mL in NaCl 0.9% 100 mL [...] Encounter Status:Closed by NASRA DASILVA on 04/15/24 [facility] Roland 01-23-2024 [facility] Telephone (AGCARDPOB ) CAMMIE BHAT ([id number]) 1970 F Date Time Provider Department 01/23/24 NAOMY THOMAS During your visit today, we recorded the following information about you: Kwabena Gustafson LPN 01/23/2024 1:04 PM Signed Pt called in requesting ECO results. Please review and advise. RAMILA Gong Robert A, MD 01/23/2024 5:25 PM Signed The echocardiogram performed at [facility] revealed moderate to severe mitral valve regurgitation from mitral valve prolapse. She needs to discuss this finding with Dr. Samuels or whatever general bladder tier she sees. She might need additional testing [...] reports she sees Dr Samuels as her bladder tier. She reports Dr Dietz is doing a [...] Date Reviewed: 01/09/2024 Reviewed by: Troy Byrd APRN.AIRCRAFT MAINTENANCE ENGINEER - Fully Assessed Reason for Visit: Results [...] Status:Closed by NAOMY THOMAS on 01/23/24 Normal [facility] Basic Metabolic Profile (BMP )on 01-21-2024 BUN/CRE 17.1 RATIO Normal 10-20 [facility] Comment on above: Order Comment: for T EE Performed By: #### L 500.2500 #### [facility] [address] [facility] [address] [place],Total 9.6 mg/dL Normal 8.5-10.1 [facility] Comment on above: Order Comment: for T EE Performed By: #### L 500.2500 #### [facility] [address] [facility] [address] Chloride [Moles/Vol] 105 mmol/L Normal 98-[address] [facility] Comment on above: Order Comment: for T EE Performed By: #### L 500.2500 #### [facility] [address] [facility] [address] CO2 [Moles/Vol] 28.0 mmol/L Normal 21.0-32.0 [facility] Comment on above: Order Comment: for T EE Performed By: #### L 500.2500 #### [facility] [address] [facility] [address] Creatinine [Mass/Vol] 0.82 mg/dL Normal 0.55-1.02 [facility] Comment on above: Order Comment: for T EE Result Comment: The validity of the calculated GFR GFRAA in patients over 70 years has not been determined. Clinical correlation is essential. Performed By: #### L 500.2500 #### [facility] [address] [place], [address] EST GFR - AA 94 mL/min Normal >60 [facility] Comment on above: Order Comment: for T EE Result Comment: Afri can [place] GFR Calc Performed By: #### L 500.2500 #### [facility] [address] [place], [address] GAP 3 Low 5-15 [facility] Comment on above: Order Comment: for T EE Performed By: #### L 500.2500 #### [facility] [address] [place], [address] GFR/1.73 sq M.predicted among non-blacks MDRD (S/P/Bld) [Vol rate/Area] 77 mL/min/{1.73_m2} Normal >60 [facility] Comment on above: Order Comment: for T EE Result Comment: Non- GFR Calc Performed By: #### L 500.2500 #### [facility] [address] [place], [address] Glucose [Mass/Vol] 93 mg/dL Normal 74-106 [facility] Comment on above: Order Comment: for T EE Performed By: #### L 500.2500 #### [facility] [address] [place], [address] Potassium [Moles/Vol] 3.6 mmol/L Normal 3.5-5.1 [facility] Comment on above: Order Comment: for T EE Performed By: #### L 500.2500 #### [facility] [address] [place], [place], [address] Sodium [Moles/Vol] 136 mmol/L Normal 136-145 [facility] Comment on above: Order Comment: for T EE Performed By: #### L 500.2500 #### [facility] [address] [place], [address] Urea nitrogen [Mass/Vol] 14 mg/dL Normal 7-18 [facility] Comment on above: Order Comment: for T EE Performed By: #### L 500.2500 #### [facility] [address] [place], [address] CNOVon 01-09-2024 CNOV Office Visit (CARDAGHWW) CAMMIE BHAT Elizabeth ([id number]) 1970 F Date Time Provider Department 01/09/24 3:00 PM TROY BYRD During your visit today, we recorded the following information about you: Pulse Respiration Blood pressure Weight 85/minute 18/minute 130/81 78.9 kg Height 1.753 m Kaleigh Hope MA 01/09/2024 2:55 PM Signed Patient denies any cardiac issues or symptoms. Troy Byrd APRN.CNP 01/09/2024 3:36 PM Signed [facility] General Cardiology Electrophysiology PRIMARY CARE PHYSICIAN: Nathan Guzman [address] [place] [address] CHIEF COMPLAINT: History and physical update prior to SVT ablation with Dr. Thomas on 01/28/2024. HISTORY OF PRESENT ILLNESS copied from Dr. Thomas's prior office note on 01/15/2023: Ms. Bhat is a 52 year old female who presents today for evaluation of arrhythmia, accompanied by her . She is referred by Dr Samuels of [facility]. She states that about a [...] for this episode she presented to the [facility], this was 12/24/2022. She states her [...] most. Patient follows with Dr. Samuels of [facility]. Patient has been taking Lopressor [...] attempt to (more content not included)... Normal [facility] ECG B/O W INTERP (MED OFFICE )on 01-09-2024 Sinus rhythm with a ventricular rate of 72. MD 150. QRS 88. QT/QTc 374/409. [facility] CNPRe 12-25-2023 CNPN Telephone (AGCARDPOB ) CAMMIE BHAT ([id number]) 1970 F Date Time Provider Department 12/25/23 NAOMY THOMAS During your visit today, we recorded the following information about you: Gisselle Ruffin 12/25/2023 11:35 AM Signed Patient is scheduled for an SVT Ablation on 01/[address] Thomas. The hospital will call the day before between 2-5pm with your arrival time. You should not eat or drink after midnight the day before the procedure. You will need a route salesman and driver when released from the hospital and you will stay overnight for observation. You should continue to take medications as prescribed the morning of the procedure with just a sip of water but stop metoprolol one week prior to the procedure. HANDP update on 01/08 at 3pm [facility] [address] [place] [address] Left message for Cammie Bhat to call [...] before the procedure. You will need a route salesman and driver when released from the hospital and you will stay overnight for observation. You should continue to take medications as prescribed the morning of the procedure with just a sip of water but stop metoprolol one week prior to the procedure. HANDP still on 01/08 at 3pm with Troy Byrd [address] [place] [address] Spoke with Cammie Bhat on December 31, [...] before the procedure. You will need a route salesman and driver when released from the hospital and you will stay overnight for observation. You should continue to take medications as prescribed the morning of the procedure with just a sip of water but stop metoprolol one week prior to the procedure. HANDP will be redone the morning of the procedure. Left message for Cammie Bhat to call back and confirm date AND instructions Gisselle Janet Crowe LPN 01/13/2024 1:37 PM Signed Spoke to Ms. Bhat about new date for Ablation. Patient voiced understanding at this time if instructions and confirms the date of her procedure at this time. RAMILA Ca Stacey, RN 01/13/2024 2:25 PM Signed Pt's name has been added to mariano procedure board. SEBASTIAN Fletcher, Nasra Khalil RN 02/12/2024 11:52 AM Signed Pt called [...] 11/05/2005 LEUKOCYTOPEN (more content not included)... Normal [facility] Clostridioides difficile nuc leic acid assay by PCRon 11-21-2023 C. difficile DNA BAM+probe Ql (Unsp spec) [facility] Absolute lymphocyte countOrd ered By: Jimbo Zavaleta on 11-20-2023 Lymphocytes Auto (Unsp spec) [#/Vol] 2.46 10*3/uL 0.83-4.51 [facility] Automated lymphocyte count a s percentage of total leukocytesOrdered By: Jimbo Zavaleta on 11-20-2023 Lymphocytes/100 WBC Auto (Unsp spec) 35.9 % 19-41 [facility] Basophil percentageOrdered B y: Jimbo Zavaleta on 11-20-2023 Basophils/100 WBC (Bld) 0.7 % 0-1 [facility] Bilirubin [Mass/Vol] 0.40 mg/dL 0.20-1.[address] [facility] Comment on above: For patients on eltr ombopag therapy, use of Dimension Pierre Part TBIL is not recommended. Chloride [Moles/Vol] 104 mmol/L 98-[address] [facility] Eosinophils/100 WBC (Bld) 2.5 % 0-5 [facility] Glucose [Mass/Vol] 106 mg/dL 74-106 [facility] Comment on above: Fasting Glucose resu lt from 100 to 125 mg/dL suggests IMPAIRED HOMEOSTASIS per A.D.A. criteria. Hemoglobin (Bld) [Mass/Vol] 14.3 g/dL 12.0-15.0 [facility] Monocytes/100 WBC (Bld) 8.0 % 0-10 [facility] Neutrophils (Bld) [#/Vol] 3.6 10*3/uL 2.0-7.7 [facility] Neutrophils/100 WBC (Bld) 52.6 % 47-70 [facility] Potassium [Moles/Vol] 3.1 mmol/L 3.5-5.1 [facility] Protein [Mass/Vol] 8.0 g/dL 6.4-8.2 [facility] [facility] Sodium [Moles/Vol] 135 mmol/L 136-145 [facility] WBC (Bld) [#/Vol] 6.9 10*3/uL 4.4-11.0 [facility] Determination of erythrocyte mean corpuscular volume (MCV)Ordered By: Jimbo Zavaleta on 11-20-2023 MCV (RBC) [Entitic vol] 94.1 fL 81-99 [facility] Direct bilirubinOrdered By: Jimbo Zavaleta on 11-20-2023 Bilirubin.direct [Mass/Vol] 0.10 mg/dL 0.00-0.30 [facility] Erythrocyte distribution wid th ratioOrdered By: Jimbo Zavaleta on 11-20-2023 Erythrocyte distribution width (RBC) [Ratio] 12.2 % 11.6-14.6 [facility] Erythrocyte distribution wid th standard deviationOrdered By: Jimbo Zavaleta on 11-20-2023 Erythrocyte distribution width (RBC) [Entitic vol] 42.4 fL 35.1-43.9 [facility] Hematocrit Auto (Bld) [Volum e fraction]Ordered By: Jimbo Zavaleta on 11-20-2023 Hematocrit (Bld) [Volume fraction] 41.2 % 37-47 [facility] Immature granulocytes/100 WB C Auto (Bld)Ordered By: Jimbo Zavaleta on 11-20-2023 Immature granulocytes/100 WBC (Bld) 0.300 % 0.0-0.9 [facility] Comment on above: IG% - Immature Granu locytes (promyelocytes, myelocytes and metamyelocytes) > 1% indicates that a LEFT SHIFT is Present. Laboratory - Chemistry and C hemistry - challengeOrdered By: Jimbo Zavaleta on 11-20-2023 ALP [Catalytic activity/Vol] 79 U/L 45-117 [facility] ALT [Catalytic activity/Vol] 43 U/L 13-56 [facility] CO2 [Moles/Vol] 23.0 mmol/L 21.0-32.0 [facility] Globulin (S) [Mass/Vol] 4.4 g/dL 2.2-4.2 [facility] Lipase [Catalytic activity/Vol] 58 U/L 13-75 [facility] Comment on above: Please note:LIPASE r evised reference range effective 22. New Lipase methodology. Expected to produce lower values than the previous assay method. NEW Reference Range: 13 - 75 U/L Magnesium [Mass/Vol] 2.1 mg/dL 1.6-2.[address] [facility] Urea nitrogen/Creatinine [Mass ratio] 20.5 mg/mg 10-20 [facility] Laboratory - Hematology and Cell countsOrdered By: Jimbo Zavaleta on 11-20-2023 MCH (RBC) [Entitic mass] 32.6 pg 27.0-32.0 [facility] MCHC (RBC) [Mass/Vol] 34.7 g/dL 32-36 [facility] Nucleated RBC/100 WBC (Bld) [Ratio] 0 % 0-5 [facility] Platelet mean volume (Bld) [Entitic vol] 9.6 fL 6.2-12.0 [facility] Platelets (Bld) [#/Vol] 233 10*3/uL 150-450 [facility] No Panel InformationOrdered By: Jimbo Zavaleta on 11-20-2023 Estimated Creatinine Clearance Calc 80.98 ml/min [facility] Estimated GFR (MDRD) Amer 92 mL/min >60 [facility] Comment on above: GFR Calc Estimated GFR (MDRD) Non-Af Amer 76 mL/min >60 [facility] Comment on above: Non- GFR Calc RBC Auto (Bld) [#/Vol]Ordere d By: Jimbo Zavaleta on 11-20-2023 RBC (Bld) [#/Vol] 4.38 10*6/uL 4.2-5.4 [facility] Serum or plasma calcium francois urement (mass/volume)Ordered By: Jimbo Zavaleta on 11-20-2023 Calcium [Mass/Vol] 9.1 mg/dL 8.5-10.1 [facility] Serum or plasma creatinine m easurement (mass/volume)Ordered By: Jimbo Zavaleta on 11-20-2023 Creatinine [Mass/Vol] 0.83 mg/dL 0.55-1.02 [facility] Comment on above: The validity of the calculated GFR & GFRAA in patients over 70 years has not been determined. Clinical correlation is essential. Serum or plasma urea nitroge n measurement (mass/volume)Ordered By: Jimbo Zavaleta on 11-20-2023 Urea nitrogen [Mass/Vol] 17 mg/dL 7-18 [facility] Thin prep Papanicolaou smear with manual screeningOrdered By: Jimbo Zavaleta on 11-20-2023 Thin prep Papanicolaou smear with manual screening 3.6 g/dL 3.2-5.0 [facility] Thin prep Papanicolaou smear with manual screening 34 U/L 15-37 [facility] Thin prep Papanicolaou smear with manual screening 8 5-15 [facility] C reactive proteinon 024 CRP [Mass/Vol] 0.21 mg/dL Normal <1.00 [facility] Comment on above: Performed By: #### 1 988-5 #### BENNIE Williamson ([id number]) [facility] ([facility]) [address] [place] [address] CBC W Auto Differential pane l (Bld)on 08-25-2023 Basophils (Bld) [#/Vol] 0.06 x10*3/uL Normal 0.00-0.10 [facility] Comment on above: Performed By: #### 5 7021-8 #### BENNIE Williamson ([id number]) [facility] ([facility]) [address] [place] [address] Basophils/100 WBC (Bld) 1.3 % Normal 0.0-2.0 [facility] Comment on above: Performed By: #### 5 7021-8 #### BENNIE Williamson ([id number]) [facility] ([facility]) [address] [place] [address] Eosinophils (Bld) [#/Vol] 0.26 x10*3/uL Normal 0.00-0.70 [facility] Comment on above: Performed By: #### 5 7021-8 #### BENNIE Williamson ([id number]) [facility] ([facility]) [address] [place] [address] 31082 Eosinophils/100 WBC (Bld) 5.5 % Normal 0.0-6.0 [facility] Comment on above: Performed By: #### 5 7021-8 #### BENNIE Williamson ([id number]) [facility] ([facility]) [address] [place] [address]23 Erythrocyte distribution width (RBC) [Ratio] 12.2 % Normal 11.5-14.5 [facility] Comment on above: Performed By: #### 5 7021-8 #### BENNIE Williamson ([id number]) [facility] ([facility]) [address] [place] [address] 10784 Hematocrit (Bld) [Volume fraction] 40.3 % Normal 36.0-46.0 [facility] Comment on above: Performed By: #### 5 7021-8 #### BENNIE Williamson ([id number]) [facility] ([facility]) [address] [place] [address]39 Hemoglobin (Bld) [Mass/Vol] 14.8 g/dL Normal 12.0-16.0 [facility] Comment on above: Performed By: #### 5 7021-8 #### BENNIE Williamson ([id number]) [facility] ([facility]) [address] [place] [address]6320 Immature granulocytes (Bld) [#/Vol] 0.01 x10*3/uL Normal 0.00-0.70 [facility] Comment on above: Performed By: #### 5 7021-8 #### BENNIE Williamson ([id number]) [facility] ([facility]) [address] [place] [address] 23784 Immature granulocytes/100 WBC (Bld) 0.2 % Normal 0.0-0.9 [facility] Comment on above: Result Comment: Kajal ture Granulocyte Count (IG) includes promyelocytes, myelocytes and metamyelocytes but does not include bands. Percent differential counts (%) should be interpreted in the context of the absolute cell counts (cells/UL). Performed By: #### 5 7021-8 #### BENNIE Williamson ([id number]) [facility] ([facility]) [address] [place] [address] 76950 Lymphocytes (Bld) [#/Vol] 1.73 x10*3/uL Normal 1.20-4.80 [facility] Comment on above: Performed By: #### 5 7021-8 #### BENNIE BAIN L ([id number]) [facility] ([facility]) [address] [place] [address] 87154 Lymphocytes/100 WBC (Bld) 36.9 % Normal 13.0-44.0 [facility] Comment on above: Performed By: #### 5 7021-8 #### BENNIE BAIN L ([id number]) [facility] ([facility]) [address] [place] [address] 30480 MCH (RBC) [Entitic mass] 36.9 pg High 26.0-34.0 [facility] Comment on above: Performed By: #### 5 7021-8 #### BENNIE BAIN L ([id number]) [facility] ([facility]) [address] [place] [address] 02146 MCHC (RBC) [Mass/Vol] 36.7 g/dL High 32.0-36.0 [facility] Comment on above: Performed By: #### 5 7021-8 #### BENNIE RANDHAWAMOTZER L ([id number]) [facility] ([facility]) [address] [place] [address] MCV (RBC) [Entitic vol] 101 fL High 80-100 [facility] Comment on above: Performed By: #### 5 7021-8 #### BENNIE RANDHAWAMOTZER L ([id number]) [facility] ([facility]) [address] [place] [address]384 Monocytes (Bld) [#/Vol] 0.44 x10*3/uL Normal 0.10-1.00 [facility] Comment on above: Performed By: #### 5 7021-8 #### BENNIE RANDHAWAMOTZER L ([id number]) [facility] ([facility]) [address] [place] [address] 25768 Monocytes/100 WBC (Bld) 9.4 % Normal 2.0-10.0 [facility] Comment on above: Performed By: #### 5 7021-8 #### BENNIE BAIN L ([id number]) [facility] ([facility]) [address] [place] [address] 94203 Neutrophils (Bld) [#/Vol] 2.19 x10*3/uL Normal 1.20-7.70 [facility] Comment on above: Result Comment: Perc ent differential counts (%) should be interpreted in the context of the absolute cell counts (cells/uL). Performed By: #### 5 7021-8 #### BENNIE BAIN L ([id number]) [facility] ([facility]) [address] [place] [address] 08067 Neutrophils/100 WBC (Bld) 46.7 % Normal 40.0-80.0 [facility] Comment on above: Performed By: #### 5 7021-8 #### BENNIE RANDHAWAMOTZER L ([id number]) [facility] ([facility]) [address] [place] [address] Nucleated RBC/100 WBC (Bld) [Ratio] 0.0 /100 WBCs Normal 0.0-0.0 [facility] Comment on above: Performed By: #### 5 7021-8 #### BENNIE RANDHAWAMOTZER L ([id number]) [facility] ([facility]) [address] [place] [address] 22638 Platelets (Bld) [#/Vol] 242 x10*3/uL Normal 150-450 [facility] Comment on above: Performed By: #### 5 7021-8 #### BENNIE Williamson ([id number]) [facility] ([facility]) [address] [place] [address] 69224 RBC (Bld) [#/Vol] 4.01 x10*6/uL Normal 4.00-5.[address] [facility] Comment on above: Performed By: #### 5 7021-8 #### BENNIE Williamson ([id number]) [facility] ([facility]) [address] [place] [address] 79379 WBC (Bld) [#/Vol] 4.7 x10*3/uL Normal 4.4-11.3 [facility] Comment on above: Performed By: #### 5 7021-8 #### BENNIE Williamson ([id number]) [facility] ([facility]) [address] [place] [address] 86347 Calcidiolon 08-25-2023 25-hydroxyvitamin D3 [Mass/Vol] 47 ng/mL Normal 30-100 [facility] Comment on above: Order Comment: Defic iency: < 20 ng/ml Insufficiency: 20-29 ng/ml Sufficiency: 30-100 ng/ml This assay accurately quantifies the sum of Vitamin D3, 25-Hydroxy and Vitamin D2,25-Hydroxy. Performed By: #### 1 989-3 #### BENNIE Williamson ([id number]) [facility] ([facility]) [address] [place] [address] 84597 Comprehensive metabolic 2000 panelon 08-25-2023 Albumin BCP dye [Mass/Vol] 4.1 g/dL Normal 3.4-5.0 [facility] Comment on above: Performed By: #### 2 4323-8 #### BENNIE Williamson ([id number]) [facility] ([facility]) [address] [place] [address] 12725 ALP [Catalytic activity/Vol] 67 U/L Normal 33-110 [facility] Comment on above: Performed By: #### 2 4323-8 #### BENNIE Williamson ([id number]) [facility] ([facility]) [address] [place] [address] ALT With P-5'-P [Catalytic activity/Vol] 30 U/L Normal 7-45 [facility] Comment on above: Result Comment: Elaine ents treated with Sulfasalazine may generate falsely decreased results for ALT. Performed By: #### 2 4323-8 #### BENNIE BAIN L ([id number]) [facility] ([facility]) [address] [place] [address] Anion gap [Moles/Vol] 13 mmol/L Normal 10-20 [facility] Comment on above: Performed By: #### 2 4323-8 #### BENNIE BAIN L ([id number]) [facility] ([facility]) [address] [place] [address] AST With P-5'-P [Catalytic activity/Vol] 28 U/L Normal 9-39 [facility] Comment on above: Performed By: #### 2 4323-8 #### BENNIE Williamson ([id number]) [facility] ([facility]) [address] [place] [address] Bilirubin [Mass/Vol] 0.6 mg/dL Normal 0.0-1.[address] [facility] Comment on above: Performed By: #### 2 4323-8 #### BENNIE BAIN L ([id number]) [facility] ([facility]) [address] [place] [address] Calcium [Mass/Vol] 9.8 mg/dL Normal 8.6-10.6 [facility] Comment on above: Performed By: #### 2 4323-8 #### BENNIE BAIN L ([id number]) [facility] ([facility]) [address] [place] [address] Chloride [Moles/Vol] 103 mmol/L Normal 98-[address] [facility] Comment on above: Performed By: #### 2 4323-8 #### BENNIE Williamson ([id number]) [facility] ([facility]) [address] [place] [address] CO2 [Moles/Vol] 27 mmol/L Normal 21-32 [facility] Comment on above: Performed By: #### 2 4323-8 #### BENNIE BAIN L ([id number]) [facility] ([facility]) [address] [place] [address] Creatinine [Mass/Vol] 0.76 mg/dL Normal 0.50-1.05 [facility] Comment on above: Performed By: #### 2 4323-8 #### BENNIE Williamson ([id number]) [facility] ([facility]) [address] [place] [address] 12163 GFR/1.73 sq M.predicted MDRD (S/P/Bld) [Vol rate/Area] mL/min/{1.73_m2} Normal >60 [facility] Comment on above: Result Comment: Calc ulations of estimated GFR are performed using the 2020 CKD-EPI Study Refit equation without the race variable for the IDMS-Traceable creatinine methods. https://jasn.asnjournals.org/content//ASN.26261 03904 Performed By: #### 2 4323-8 #### BENNIE Williamson ([id number]) [facility] ([facility]) [address] [place] [address] 78521 Glucose [Mass/Vol] 90 mg/dL Normal 74-99 [facility] Comment on above: Performed By: #### 2 4323-8 #### BENNIE Williamson ([id number]) [facility] ([facility]) [address] [place] [address] 8[address]38 Potassium [Moles/Vol] 4.0 mmol/L Normal 3.5-5.3 [facility] Comment on above: Performed By: #### 2 4323-8 #### BENNIE Williamson ([id number]) [facility] ([facility]) [address] [place] [address] Protein [Mass/Vol] 7.6 g/dL Normal 6.4-8.2 [facility] Comment on above: Performed By: #### 2 4323-8 #### BENNIE Williamson ([id number]) [facility] ([facility]) [address] [place] [address] 75931 Sodium [Moles/Vol] 139 mmol/L Normal 136-145 [facility] Comment on above: Performed By: #### 2 4323-8 #### BENNIE Williamson ([id number]) [facility] ([facility]) [address] [place] [address] 99185 Urea nitrogen [Mass/Vol] 15 mg/dL Normal 6-23 [facility] Comment on above: Performed By: #### 2 4323-8 #### BENNIE Williamson ([id number]) [facility] ([facility]) [address] [place] [address] 68023 ESR Westergren method (Bld) [Velocity]on 08-25-2023 ESR (Bld) [Velocity] 13 mm/h Normal 0-[address] [facility] Comment on above: Performed By: #### 4 537-7 #### BENNIE Williamson ([id number]) [facility] ([facility]) [address] [place] [address] 62104 Roland 06-26-2023 CNPN Telephone (AKPR[facility]) CAMMIE BHAT ([id number]) 1970 F Date Time Provider Department 06/26/23 [...] Naomy Thomas MD 06/26/2023 9:09 PM Signed [facility] General Electrophysiology (EP) Procedure request submitted. [...] tachycardia [I47.10] Order(s):SURGICAL REQUEST - ELECTIVE (02/2020) [[id number]] Order #: [id number]: 1 Prescriptions as of 06/26/2023 - celecoxib [...] Encounter Status:Closed by NAOMY THOMAS on 06/26/23 [facility] Absolute lymphocyte countOrd ered By: Ayde Hearn on 01-09-2023 Lymphocytes Auto (Unsp spec) [#/Vol] 1.78 10*3/uL 0.83-4.51 [facility] Basophil percentageOrdered B y: Ayde Hearn on 01-09-2023 Basophils/100 WBC (Bld) 1.0 % 0-1 [facility] Bilirubin [Mass/Vol] 0.50 mg/dL 0.20-1.[address] [facility] Comment on above: For patients on eltr ombopag therapy, use of Dimension Pierre Part TBIL is not recommended. Chloride [Moles/Vol] 109 mmol/L 98-[address] [facility] Eosinophils/100 WBC (Bld) 5.4 % 0-5 [facility] Glucose [Mass/Vol] 95 mg/dL 74-106 [facility] Neutrophils (Bld) [#/Vol] 3.2 10*3/uL 2.0-7.7 [facility] Neutrophils/100 WBC (Bld) 54.1 % 47-70 [facility] Potassium [Moles/Vol] 3.5 mmol/L 3.5-5.1 [facility] Protein [Mass/Vol] 7.8 g/dL 6.4-8.2 [facility] Sodium [Moles/Vol] 141 mmol/L 136-145 [facility] WBC (Bld) [#/Vol] 5.9 10*3/uL 4.4-11.0 [facility] Blood erythrocytes count (nu mber/volume)Ordered By: Ayde Hearn on 01-09-2023 RBC (Bld) [#/Vol] 4.10 10*6/uL 4.2-5.4 [facility] Blood hemoglobin measurement (mass/volume)Ordered By: Ayde Hearn on 01-09-2023 Hemoglobin (Bld) [Mass/Vol] 14.5 g/dL 12.0-15.0 [facility] Blood lymphocytes/100 leukoc ytesOrdered By: Ayde Hearn on 01-09-2023 Lymphocytes/100 WBC (Bld) 30.2 % 19-41 [facility] Blood monocytes/100 leukocyt esOrdered By: Ayde Hearn on 01-09-2023 Monocytes/100 WBC (Bld) 9.0 % 0-10 [facility] Blood platelet mean volumeOr dered By: Ayde Hearn on 01-09-2023 Platelet mean volume (Bld) [Entitic vol] 9.9 fL 6.2-12.0 [facility] Determination of erythrocyte mean corpuscular volume (MCV)Ordered By: Ayde Hearn on 01-09-2023 MCV (RBC) [Entitic vol] 99.8 fL 81-99 [facility] Hematocrit Auto (Bld) [Volum e fraction]Ordered By: Ayde Hearn on 01-09-2023 Hematocrit (Bld) [Volume fraction] 40.9 % 37-47 [facility] Laboratory - Chemistry and C hemistry - challengeOrdered By: Ayde Hearn on 01-09-2023 ALP [Catalytic activity/Vol] 76 U/L 45-117 [facility] ALT [Catalytic activity/Vol] 30 U/L 13-56 [facility] CO2 [Moles/Vol] 25.0 mmol/L 21.0-32.0 [facility] Globulin (S) [Mass/Vol] 4.4 g/dL 2.2-4.2 [facility] Urea nitrogen/Creatinine [Mass ratio] 16.1 mg/mg 10-20 [facility] Laboratory - Hematology and Cell countsOrdered By: Ayde Hearn on 01-09-2023 Erythrocyte distribution width (RBC) [Entitic vol] 43.8 fL 35.1-43.9 [facility] Erythrocyte distribution width (RBC) [Ratio] 12.3 % 11.6-14.6 [facility] Immature granulocytes/100 WBC (Bld) 0.300 % 0.0-0.9 [facility] Comment on above: IG% - Immature Granu locytes (promyelocytes, myelocytes and metamyelocytes) > 1% indicates that a LEFT SHIFT is Present. MCH (RBC) [Entitic mass] 35.4 pg 27.0-32.0 [facility] Nucleated RBC/100 WBC (Bld) [Ratio] 0 % 0-5 [facility] MCHC Auto (RBC) [Mass/Vol]Or dered By: Ayde Hearn on 01-09-2023 MCHC (RBC) [Mass/Vol] 35.5 g/dL 32-36 [facility] No Panel InformationOrdered By: Ayde Hearn on 01-09-2023 Estimated GFR (MDRD) Amer 81 mL/min >60 [facility] Comment on above: GFR Calc Estimated GFR (MDRD) Non-Af Amer 67 mL/min >60 [facility] Comment on above: Non- GFR Calc Hepatitis B Surface Antigen Non-Reactive Nonreactive [facility] Hepatitis C Antibody Non-Reactive Nonreactive [facility] Comment on above: Non Reactive: < 0.8 Equivocal: >/= 0.8 to < 1.0 Reactive: >/= 1.0The CDC recommends that a reactive/equivocal HCV antibody result be followed up by the HCV Nucleic Acid Amplificationtest (163872) Platelets bldOrdered By: Neela Hearn on 01-09-2023 Platelets (Bld) [#/Vol] 237 10*3/uL 150-450 [facility] Qualitative QuantiFERON-TB g old in tube testOrdered By: Ayde Hearn on 01-09-2023 M. tuberculosis tuberculin stim IFN-g Ql (Bld) 0.08 IU/mL . [facility] Serum hepatitis B virus core antibody detectionOrdered By: Ayde Hearn on 01-09-2023 HBV core Ab Ql (S) Negative Negative [facility] Comment on above: Performed at: [facility] [employer] [address] Director: Fred Agustin PhD, Phone: [phone] Serum hepatitis B virus surf phylicia antibody IgG detectionOrdered By: Ayde Hearn on 01-09-2023 HBV surface IgG Ql (S) Non-Reactive [facility] Comment on above: Non Reactive: Incons istent with immunity less than <10 mIU/mL Reactive: Consistent with immunity greater than or equal to 10 mIU/mL Serum or plasma albumin francois urement (mass/volume)Ordered By: Ayde Hearn on 01-09-2023 Albumin [Mass/Vol] 3.4 g/dL 3.2-5.0 [facility] Serum or plasma albumin/glob ulin mass ratioOrdered By: Ayde Hearn on 01-09-2023 Albumin/Globulin [Mass ratio] 0.8 {ratio} 0.9-2.4 [facility] Serum or plasma calcium francois urement (mass/volume)Ordered By: Ayde Hearn on 01-09-2023 Calcium [Mass/Vol] 9.0 mg/dL 8.5-10.1 [facility] Serum or plasma creatinine m easurement (mass/volume)Ordered By: Ayde Hearn on 01-09-2023 Creatinine [Mass/Vol] 0.93 mg/dL 0.55-1.02 [facility] Comment on above: The validity of the calculated GFR & GFRAA in patients over 70 years has not been determined. Clinical correlation is essential. Serum or plasma urea nitroge n measurement (mass/volume)Ordered By: Ayde Hearn on 01-09-2023 Urea nitrogen [Mass/Vol] 15 mg/dL 7-18 [facility] Thin prep Papanicolaou smear with manual screeningOrdered By: Ayderobinson Hearn on 01-09-2023 Thin prep Papanicolaou smear with manual screening 22 U/L 15-37 [facility] Thin prep Papanicolaou smear with manual screening 7 5-15 [facility] Thin prep Papanicolaou smear with manual screening Comment . [facility] Comment on above: QuantiFERON-TB Gold Plus [...] smear with manual screening 0.09 IU/mL . [facility] Thin prep Papanicolaou smear with manual screening 0.08 IU/mL . [facility] Thin prep Papanicolaou smear with manual screening > 10.00 IU/mL . [facility] Thin prep Papanicolaou smear with manual screening Negative Negative [facility] Comment on above: No response to [...] PROTEINon 023 C-REACTIVE PROTEIN 0.61 mg/dL Normal [facility] Comment on above: Result Comment: REF VALUE < 1.00 Performed By: #### C RP #### [facility] [address] [place] [address] CITRULLINE ANTIBODYon 2022 CITRULLINE ANTIBODY <1 Normal [facility] Comment on above: Result Comment: THE [...] U/ML Performed By: #### C ITAB #### [facility] [address] [place] [address] RHEUMATOID FACTORon 01-08-20 23 RHEUMATOID FACTOR <10 Normal 0 - 15 [facility] Comment on above: Performed By: #### R F #### [facility] [address] [place] [address] URIC ACIDon 01-07-2023 Urate [Mass/Vol] 4.8 mg/dL Normal 2.3 - 6.7 [facility] Comment on above: Result Comment: Carrie puncture immediately after or during the administration of Metamizole may lead to falsely low results. Testing should be performed immediately prior to Metamizole dosing. Performed By: #### U LAURA #### [facility] [address] [place] [address] BILATERAL HAND 2 VIEWSon BILATERAL HAND 2 VIEWS Patient Name: CAMMIE BHAT STUDY: BILATERAL HAND 2 VIEWS; ; 01/06/2023 2:55 pm INDICATION: r/o erosions or calcinosis M12.9: Arthropathy. COMPARISON: None. ACCESSION NUMBER(S): [id number] ORDERING CLINICIAN: RUDY COKER FINDINGS: Right hand: [...] Electronically signed by: AJ JARVIS MD Normal [facility] [place] BILATERAL KNEE; 1 OR 2 VIEWS on 01-06-2023 BILATERAL KNEE; 1 OR 2 VIEWS Patient Name: CAMMIE BHAT STUDY: BILATERAL KNEE; 1 OR 2 VIEWS; ; 01/06/2023 2:56 pm INDICATION: r/o erosions or calcinosis M12.9: Arthropathy. COMPARISON: None. ACCESSION NUMBER(S): [id number] ORDERING CLINICIAN: RUDY COKER FINDINGS: Left knee: [...] Electronically signed by: AJ JARVIS MD Normal [facility] [place] C Reactive Protein, Serumon 01-06-2023 CRP [Mass/Vol] 0.61 mg/dL [facility] [address] DO Work Phone: Comment on above: REF VALUE< 1.00 Citrulline Antibodyon 2022 Cyclic citrullinated peptide IgG Qn <1 [facility] 2500 DO Work Phone: Comment on [...] XR Hand - bilateral 2 Views Normal [facility] 2500 DO Work Phone: Rheumatoid Factor, Serum or Plasmaon 01-06-2023 Rheumatoid factor Nephelometry Qn (S) <10 0 - 15 -Rheumatol og [facility] 2500 DO Work Phone: SEDIMENTATION RATE, ERYTHROC YTEon 01-06-2023 SEDIMENTATION RATE, ERYTHROCYTE 5 mm/h Normal 0 - 30 [facility] [place] Comment on above: Performed By: #### E SRWS #### [facility] [id number] [place] [address] Sedimentation Rate, Erythroc yteon 01-06-2023 ESR (Bld) [Velocity] 5 mm/h 0 - 30 MP-R heumatolog [facility] 2500 DO Work Phone: Tobacco Screening.on 023 Fall risk assessment a) No falls within the last year [facility] 2500 DO Work Phone: Tobacco use status CPHS b) [facility] [address] DO Work Phone: Uric Acid, Serumon 3 Urate [Mass/Vol] 4.8 mg/dL 2.3 - 6.7 [facility] 2500 DO Work Phone: Comment on above: Venipuncture immedia tely after or during the administration of Metamizole may lead to falsely low results. Testing should be performed immediately prior to Metamizole dosing. Xray Bilateral Knee, 1 or 2 viewson 01-06-2023 XR Knee - bilateral 2 Views Normal [facility] 2500 DO Work Phone: Absolute lymphocyte countOrd ered By: Jimbo Zavaleta on 12-24-2022 Lymphocytes Auto (Unsp spec) [#/Vol] 3.25 10*3/uL 0.83-4.51 [facility] Basophil percentageOrdered B y: Jimbo Zavaleta on 12-24-2022 Basophils/100 WBC (Bld) 0.9 % 0-1 [facility] Chloride [Moles/Vol] 103 mmol/L 98-107 [facility] Eosinophils/100 WBC (Bld) 4.4 % 0-5 [facility] Glucose [Mass/Vol] 104 mg/dL 74-106 [facility] Comment on above: Fasting Glucose resu lt from 100 to 125 mg/dL suggests IMPAIRED HOMEOSTASIS per A.D.A. criteria. Neutrophils (Bld) [#/Vol] 5.0 10*3/uL 2.0-7.7 [facility] Neutrophils/100 WBC (Bld) 50.9 % 47-70 [facility] Potassium [Moles/Vol] 3.2 mmol/L 3.5-5.1 [facility] Comment on above: Moderate Hemolysis, Result may be falsely increased. Sodium [Moles/Vol] 138 mmol/L 136-145 [facility] WBC (Bld) [#/Vol] 9.7 10*3/uL 4.4-11.0 [facility] Blood erythrocytes count (nu mber/volume)Ordered By: Jimbo Zavaleta on 12-24-2022 RBC (Bld) [#/Vol] 4.57 10*6/uL 4.2-5.4 [facility] Blood hemoglobin measurement (mass/volume)Ordered By: Jimbo Zavaleta on 12-24-2022 Hemoglobin (Bld) [Mass/Vol] 15.0 g/dL 12.0-15.0 [facility] Blood lymphocytes/100 leukoc ytesOrdered By: Jimbo Zavaleta on 12-24-2022 Lymphocytes/100 WBC (Bld) 33.4 % 19-41 [facility] Blood monocytes/100 leukocyt esOrdered By: Jimbo Zavaleta on 12-24-2022 Monocytes/100 WBC (Bld) 10.2 % 0-10 [facility] Blood platelet mean volumeOr dered By: Jimbo Zavaleta on 12-24-2022 Platelet mean volume (Bld) [Entitic vol] 9.8 fL 6.2-12.0 [facility] Determination of erythrocyte mean corpuscular volume (MCV)Ordered By: Jimbo Zavaleta on 12-24-2022 MCV (RBC) [Entitic vol] 96.3 fL 81-99 [facility] Hematocrit Auto (Bld) [Volum e fraction]Ordered By: Jimbo Zavaleta on 12-24-2022 Hematocrit (Bld) [Volume fraction] 44.0 % 37-47 [facility] Laboratory - Chemistry and C hemistry - challengeOrdered By: Jimbo Zavaleta on 12-24-2022 CO2 [Moles/Vol] 18.0 mmol/L 21.0-32.0 [facility] Magnesium [Mass/Vol] 2.1 mg/dL 1.6-2.[address] [facility] Comment on above: Moderate Hemolysis, Result may be falsely increased. Urea nitrogen/Creatinine [Mass ratio] 15.5 mg/mg 10-20 [facility] Laboratory - Hematology and Cell countsOrdered By: Jimbo Zavaleta on 12-24-2022 Erythrocyte distribution width (RBC) [Entitic vol] 42.8 fL 35.1-43.9 [facility] Erythrocyte distribution width (RBC) [Ratio] 12.1 % 11.6-14.6 [facility] Immature granulocytes/100 WBC (Bld) 0.200 % 0.0-0.9 [facility] Comment on above: IG% - Immature Granu locytes (promyelocytes, myelocytes and metamyelocytes) > 1% indicates that a LEFT SHIFT is Present. MCH (RBC) [Entitic mass] 32.8 pg 27.0-32.0 [facility] Nucleated RBC/100 WBC (Bld) [Ratio] 0 % 0-5 [facility] MCHC Auto (RBC) [Mass/Vol]Or dered By: Jimbo Zavaleta on 12-24-2022 MCHC (RBC) [Mass/Vol] 34.1 g/dL 32-36 [facility] No Panel InformationOrdered By: Jimbo Zavaleta on 12-24-2022 Estimated Creatinine Clearance Calc 75.55 ml/min [facility] Estimated GFR (MDRD) Amer 84 mL/min >60 [facility] Comment on above: GFR Calc Estimated GFR (MDRD) Non-Af Amer 69 mL/min >60 [facility] Comment on above: Non- GFR Calc Thyroid Stimulating Hormone (TSH) 3.00 uIU/mL 0.358-3.74 [facility] Platelets bldOrdered By: Davin Zavaleta on 12-24-2022 Platelets (Bld) [#/Vol] 306 10*3/uL 150-450 [facility] Serum or plasma calcium francois urement (mass/volume)Ordered By: Jimbo Zavaleta on 12-24-2022 Calcium [Mass/Vol] 9.4 mg/dL 8.5-10.1 [facility] Serum or plasma creatinine m easurement (mass/volume)Ordered By: Jimbo Zavaleta on 12-24-2022 Creatinine [Mass/Vol] 0.90 mg/dL 0.55-1.02 [facility] Comment on above: The validity of the calculated GFR & GFRAA in patients over 70 years has not been determined. Clinical correlation is essential. Serum or plasma urea nitroge n measurement (mass/volume)Ordered By: Jimbo Zavaleta on 12-24-2022 Urea nitrogen [Mass/Vol] 14 mg/dL 7-18 [facility] Thin prep Papanicolaou smear with manual screeningOrdered By: Jimbo Zavaleta on 12-24-2022 Thin prep Papanicolaou smear with manual screening 17 5-15 [facility] Absolute lymphocyte countOrd ered By: Dr. Bowles on 12-18-2022 Lymphocytes Auto (Unsp spec) [#/Vol] 2.04 10*3/uL 0.83-4.51 [facility] Basophil percentageOrdered B y: Dr. Bowles on 12-18-2022 Basophils/100 WBC (Bld) 1.0 % 0-1 [facility] Bilirubin [Mass/Vol] 0.40 mg/dL 0.20-1.[address] [facility] Comment on above: For patients on eltr ombopag therapy, use of Dimension Pierre Part TBIL is not recommended. Chloride [Moles/Vol] 109 mmol/L 98-[address] [facility] Eosinophils/100 WBC (Bld) 6.3 % 0-5 [facility] Glucose [Mass/Vol] 104 mg/dL 74-106 [facility] Comment on above: Fasting Glucose resu lt from 100 to 125 mg/dL suggests IMPAIRED HOMEOSTASIS per A.D.A. criteria. Neutrophils (Bld) [#/Vol] 3.0 10*3/uL 2.0-7.7 [facility] Neutrophils/100 WBC (Bld) 48.7 % 47-70 [facility] Potassium [Moles/Vol] 3.3 mmol/L 3.5-5.1 [facility] Protein [Mass/Vol] 7.3 g/dL 6.4-8.2 [facility] Sodium [Moles/Vol] 140 mmol/L 136-145 [facility] WBC (Bld) [#/Vol] 6.1 10*3/uL 4.4-11.0 [facility] Blood erythrocytes count (nu mber/volume)Ordered By: Dr. Bowles on 12-18-2022 RBC (Bld) [#/Vol] 4.45 10*6/uL 4.2-5.4 [facility] Blood hemoglobin measurement (mass/volume)Ordered By: Dr. Bowles on 12-18-2022 Hemoglobin (Bld) [Mass/Vol] 14.5 g/dL 12.0-15.0 [facility] Blood lymphocytes/100 leukoc ytesOrdered By: Dr. Bowles on 12-18-2022 Lymphocytes/100 WBC (Bld) 33.6 % 19-41 [facility] Blood monocytes/100 leukocyt esOrdered By: Dr. Bowles on 12-18-2022 Monocytes/100 WBC (Bld) 10.2 % 0-10 [facility] Blood platelet mean volumeOr dered By: Dr. Bowles on 12-18-2022 Platelet mean volume (Bld) [Entitic vol] 9.6 fL 6.2-12.0 [facility] Clostridium difficile detect ion by polymerase chain reactionOrdered By: Dr. Bowles on 12-18-2022 C. difficile DNA BAM+probe Ql (Unsp spec) [facility] Determination of erythrocyte mean corpuscular volume (MCV)Ordered By: Dr. Bowles on 12-18-2022 MCV (RBC) [Entitic vol] 96.4 fL 81-99 [facility] Hematocrit Auto (Bld) [Volum e fraction]Ordered By: Dr. Bowles on 12-18-2022 Hematocrit (Bld) [Volume fraction] 42.9 % 37-47 [facility] Laboratory - Chemistry and C hemistry - challengeOrdered By: Dr. Bowles on 12-18-2022 ALP [Catalytic activity/Vol] 75 U/L 45-117 [facility] ALT [Catalytic activity/Vol] 33 U/L 13-56 [facility] CO2 [Moles/Vol] 19.0 mmol/L 21.0-32.0 [facility] Globulin (S) [Mass/Vol] 4.1 g/dL 2.2-4.2 [facility] Urea nitrogen/Creatinine [Mass ratio] 16.4 mg/mg 10-20 [facility] Laboratory - Hematology and Cell countsOrdered By: Dr. Bowles on 12-18-2022 Erythrocyte distribution width (RBC) [Entitic vol] 43.3 fL 35.1-43.9 [facility] Erythrocyte distribution width (RBC) [Ratio] 12.1 % 11.6-14.6 [facility] Immature granulocytes/100 WBC (Bld) 0.200 % 0.0-0.9 [facility] Comment on above: IG% - Immature Granu locytes (promyelocytes, myelocytes and metamyelocytes) > 1% indicates that a LEFT SHIFT is Present. MCH (RBC) [Entitic mass] 32.6 pg 27.0-32.0 [facility] Nucleated RBC/100 WBC (Bld) [Ratio] 0 % 0-5 [facility] MCHC Auto (RBC) [Mass/Vol]Or dered By: Dr. Bowles on 12-18-2022 MCHC (RBC) [Mass/Vol] 33.8 g/dL 32-36 [facility] No Panel InformationOrdered By: Dr. Bowles on 12-18-2022 Estimated Creatinine Clearance Calc 93.14 ml/min [facility] Estimated GFR (MDRD) Amer 107 mL/min >60 [facility] Comment on above: GFR Calc Estimated GFR (MDRD) Non-Af Amer 88 mL/min >60 [facility] Comment on above: Non- GFR Calc Platelets bldOrdered By: Dr. Bowles on 12-18-2022 Platelets (Bld) [#/Vol] 213 10*3/uL 150-450 [facility] Serum or plasma albumin francois urement (mass/volume)Ordered By: Dr. Bowles on 12-18-2022 Albumin [Mass/Vol] 3.2 g/dL 3.2-5.0 [facility] Serum or plasma albumin/glob ulin mass ratioOrdered By: Dr. Bowles on 12-18-2022 Albumin/Globulin [Mass ratio] 0.8 {ratio} 0.9-2.4 [facility] Serum or plasma calcium francois urement (mass/volume)Ordered By: Dr. Bowles on 12-18-2022 Calcium [Mass/Vol] 8.9 mg/dL 8.5-10.1 [facility] Serum or plasma creatinine m easurement (mass/volume)Ordered By: Dr. Bowles on 12-18-2022 Creatinine [Mass/Vol] 0.73 mg/dL 0.55-1.02 [facility] Comment on above: The validity of the calculated GFR & GFRAA in patients over 70 years has not been determined. Clinical correlation is essential. Serum or plasma urea nitroge n measurement (mass/volume)Ordered By: Dr. Bowles on 12-18-2022 Urea nitrogen [Mass/Vol] 12 mg/dL 7-18 [facility] Stool enteric pathogen panel by probe and target amplification methodOrdered By: Dr. Bowles on 12-18-2022 Gastrointestinal pathogens panel BAM+probe (Stl) [facility] Thin prep Papanicolaou smear with manual screeningOrdered By: Dr. Bowles on 12-18-2022 Thin prep Papanicolaou smear with manual screening 27 U/L 15-37 [facility] Thin prep Papanicolaou smear with manual screening 12 5-15 [facility] Culture, urineOrdered By: Dr Gina Guzman on 11-20-2022 Bacteria identified Cx Nom (U) Culture exhibits no growth. [facility] No Panel InformationOrdered By: Dr. Samuels on 11-11-2022 Thyroid Stimulating Hormone (TSH) 0.96 uIU/mL 0.358-3.74 [facility] Culture, urineOrdered By: Dr Gina Guzman on 11-10-2022 Bacteria identified Cx Nom (U) Klebsiella aerogenes [facility] Albumin Elph [Mass/Vol]on Albumin [Mass/Vol] 3.9 g/dL 2.9-4.4 [facility] Work Phone: Interpretation of serum or p lasma protein pattern by immunofixation (narrative resulton 06-25-2022 Protein Fractions Immunofixation Russel [Interp] See comment [facility] Work Phone: Comment on above: NOT OBSERVED No Panel Informationon 06-25 Addendum Document Comment . [facility] Work Phone: Comment on above: Protein electrophore sis scan will follow via computer,mail, or data analytics architect delivery. Serum [id number] measu rement by electrophoresison 06-25-2022 Alpha 1 globulin Elph [Mass/Vol] 0.3 g/dL 0.0-0.4 [facility] Work Phone: Alpha 1 globulin Elph [Mass/Vol] 0.8 g/dL 0.4-1.0 [facility] Work Phone: Serum globulin measurement ( mass/volume)on 06-25-2022 Globulin (S) [Mass/Vol] 3.9 g/dL 2.2-3.9 [facility] Work Phone: Serum or plasma IgA measurem ent (mass/volume)on 06-25-2022 IgA [Mass/Vol] 314 mg/dL 87-352 [facility] Work Phone: Serum or plasma IgG measurem ent (mass/volume)on 06-25-2022 IgG [Mass/Vol] 1562 mg/dL 586-1602 [facility] Work Phone: Serum or plasma IgM measurem ent (mass/volume)on 06-25-2022 IgM [Mass/Vol] 196 mg/dL 26-217 [facility] Work Phone: Serum or plasma beta globuli n measurement by electrophoresis (mass/volume)on 06-25-2022 Beta globulin Elph [Mass/Vol] 1.2 g/dL 0.7-1.3 [facility] Work Phone: Serum or plasma gamma globul in measurement by electrophoresis (mass/volume)on 06-25-2022 Gamma globulin Elph [Mass/Vol] 1.7 g/dL 0.4-1.8 [facility] Work Phone: Serum or plasma gastrin francois urement (mass/volume)on 06-25-2022 Gastrin [Mass/Vol] 194 pg/mL 0-115 [facility] Work Phone: Comment on above: Siemens Immulite 200 0 Immunochemiluminometric assay (ICMA)Values obtained with different assay methods or kits cannotbe used interchangeably. Results cannot be interpreted asabsolute evidence of the presence or absence of malignantdisease.Performed at: - [address] [id number] Director: Fred Agustin PhD, Phone: [phone] at: [facility] [address] [id number] Director: Haleigh Angel MD, Phone: [phone] Serum or plasma immunoelectr ophoresis interpretation (nominal result)on 06-25-2022 Interpretation IEP [Interp] Comment . [facility] Work Phone: Comment on above: No monoclonality det ected. Thin prep Papanicolaou smear with manual screeningon 06-25-2022 Thin prep Papanicolaou smear with manual screening 1.1 0.7-1.7 [facility] Work Phone: Total protein bloodon 2021 Protein [Mass/Vol] 7.8 g/dL 6.0-8.5 [facility] Work Phone: Absolute lymphocyte counton 05-30-2022 Lymphocytes Auto (Unsp spec) [#/Vol] 1.59 10*3/uL 0.83-4.51 [facility] Work Phone: Basophil percentageon 2021 Basophils/100 WBC (Bld) 1.0 % 0-1 [facility] Work Phone: Bilirubin [Mass/Vol] 0.50 mg/dL 0.20-1.[address] [facility] Work Phone: Comment on above: For patients on eltr ombopag therapy, use of Dimension Pierre Part TBIL is not recommended. Eosinophils/100 WBC (Bld) 4.1 % 0-5 [facility] Work Phone: Neutrophils (Bld) [#/Vol] 2.8 10*3/uL 2.0-7.7 [facility] Work Phone: Neutrophils/100 WBC (Bld) 53.6 % 47-70 [facility] Work Phone: Protein [Mass/Vol] 8.0 g/dL 6.4-8.2 [facility] Work Phone: WBC (Bld) [#/Vol] 5.2 10*3/uL 4.4-11.0 [facility] Work Phone: Blood erythrocytes count (nu mber/volume)on 05-30-2022 RBC (Bld) [#/Vol] 4.12 10*6/uL 4.2-5.4 [facility] Work Phone: Blood hemoglobin measurement (mass/volume)on 05-30-2022 Hemoglobin (Bld) [Mass/Vol] 14.7 g/dL 12.0-15.0 [facility] Work Phone: Blood lymphocytes/100 leukoc yteson 05-30-2022 Lymphocytes/100 WBC (Bld) 30.8 % 19-41 [facility] Work Phone: Blood monocytes/100 leukocyt eson 05-30-2022 Monocytes/100 WBC (Bld) 10.3 % 0-10 [facility] Work Phone: Blood platelet mean volumeon 05-30-2022 Platelet mean volume (Bld) [Entitic vol] 9.7 fL 6.2-12.0 [facility] Work Phone: Determination of erythrocyte mean corpuscular volume (MCV)on 05-30-2022 MCV (RBC) [Entitic vol] 99.0 fL 81-99 [facility] Work Phone: Direct bilirubinon Bilirubin.direct [Mass/Vol] 0.15 mg/dL 0.00-0.30 [facility] Work Phone: Hematocrit Auto (Bld) [Volum e fraction]on 05-30-2022 Hematocrit (Bld) [Volume fraction] 40.8 % 37-47 [facility] Work Phone: Laboratory - Chemistry and C hemistry - challengeon 05-30-2022 ALP [Catalytic activity/Vol] 90 U/L 45-117 [facility] Work Phone: ALT [Catalytic activity/Vol] 33 U/L 13-56 [facility] Work Phone: Globulin (S) [Mass/Vol] 4.5 g/dL 2.2-4.2 [facility] Work Phone: Laboratory - Hematology and Cell countson 05-30-2022 Erythrocyte distribution width (RBC) [Entitic vol] 44.4 fL 35.1-43.9 [facility] Work Phone: Erythrocyte distribution width (RBC) [Ratio] 12.5 % 11.6-14.6 [facility] Work Phone: Immature granulocytes/100 WBC (Bld) 0.200 % 0.0-0.9 [facility] Work Phone: Comment on above: IG% - Immature Granu locytes (promyelocytes, myelocytes and metamyelocytes) > 1% indicates that a LEFT SHIFT is Present. MCH (RBC) [Entitic mass] 35.7 pg 27.0-32.0 [facility] Work Phone: Nucleated RBC/100 WBC (Bld) [Ratio] 0 % 0-5 [facility] Work Phone: MCHC Auto (RBC) [Mass/Vol]on 05-30-2022 MCHC (RBC) [Mass/Vol] 36.0 g/dL 32-36 [facility] Work Phone: No Panel Informationon 05-30 Estimated GFR (MDRD) Amer 76 mL/min >60 [facility] Work Phone: Comment on above: GFR Calc Estimated GFR (MDRD) Non-Af Amer 63 mL/min >60 [facility] Work Phone: Comment on above: Non- GFR Calc Platelets bldon 05-30-2022 Platelets (Bld) [#/Vol] 245 10*3/uL 150-450 [facility] Work Phone: Serum or plasma albumin francois urement (mass/volume)on 05-30-2022 Albumin [Mass/Vol] 3.5 g/dL 3.2-5.0 [facility] Work Phone: Serum or plasma creatinine m easurement (mass/volume)on 05-30-2022 Creatinine [Mass/Vol] 0.99 mg/dL 0.55-1.02 [facility] Work Phone: Comment on above: The validity of the calculated GFR & GFRAA in patients over 70 years has not been determined. Clinical correlation is essential. Thin prep Papanicolaou smear with manual screeningon 05-30-2022 Thin prep Papanicolaou smear with manual screening 22 U/L 15-37 [facility] Work Phone: Basophil percentageon 2021 Creatinine [Mass/Vol] 1.0 mg/dL 0.55-1.02 [facility] Work Phone: Laboratory - Chemistry and C hemistry - challengeon 04-19-2022 GFR/1.73 sq M.predicted among non-blacks MDRD (S/P/Bld) [Vol rate/Area] 60.0000 mL/min/{1.73_m2} >60 [facility] Work Phone: No Panel Informationon 03-28 Stool Calprotectin <16 ug/g 0-120 [facility] Work Phone: Comment on above: Concentration Interp retation Follow-Up<16 - 50 ug/g Normal None>50 -120 ug/g Borderline Re-evaluate in 4-6 weeks >120 ug/g Abnormal Repeat as clinically indicatedPerformed at: [facility] [address] [id number] Director: Haleigh Angel MD, Phone: [phone] Atypical perinuclear antineu trophil cytoplasmic antibodies measurementon 03-27-2022 Neutrophil cytoplasmic Ab.perinuclear.atypica l IF (S) [Titer] <1:20 titer Neg:<1:20 [facility] Work Phone: Comment on above: The atypical pANCA p attern has been observed in asignificant percentage of patients with ulcerative colitis,primary sclerosing cholangitis and autoimmune hepatitis.Performed at: [address] [id number] Director: Fred Agustin PhD, Phone: [phone] at: [address] [id number] Director: Haleigh Angel MD, Phone: [phone] Erythrocyte sedimentation ra paul 03-27-2022 ESR (Bld) [Velocity] 13 mm/h 0-[address] [facility] Work Phone: No Panel Informationon 03-27 Immunoglobulin E 331 IU/mL 6-495 [facility] Work Phone: Miscellaneous Test See comment [facility] Work [facility]: Comment on above: TEST [...] developed and its performance characteristics determined by [employer]. It has not been cleared or approved by the Food and Drug Administration. The FDA has determined that such clearance or approval is not necessary.Atypical pANCA Negative NegativeComments AbnormalSuggestive of Crohn's Disease. Pattern is not conclusive for disease behavior risk stratification. TESTING PERFORMED AT [facility]. ORIGINAL REPORT ON FILE IN LAB CONTAINS ADDITIONAL TEST SITE INFORMATION. Serum classic neutrophil cyt oplasmic antibody assay (units/volume)on 03-27-2022 Neutrophil cytoplasmic Ab.classic Qn (S) <1:20 titer Neg:<1:20 [facility] Work Phone: Serum or plasma C reactive p rotein measurement (mass/volume)on 03-27-2022 CRP [Mass/Vol] 5.55 mg/L 0.0-3.0 [facility] Work Phone: Comment on above: C-Reactive Protein ( CRP) provides useful information for thediagnosis, therapy and monitoring of inflammatory processesand associated diseases. For the evaluation of Relative Riskfor Cardiovascular Disease, a High Sensitivity CRP (HSCRP)should be ordered. Serum or plasma IgA measurem ent (mass/volume)on 03-27-2022 IgA [Mass/Vol] 313 mg/dL 87-352 [facility] Work Phone: Serum or plasma IgG measurem ent (mass/volume)on 03-27-2022 IgG [Mass/Vol] 1683 mg/dL [phone] [facility] Work Phone: Serum or plasma IgM measurem ent (mass/volume)on 03-27-2022 IgM [Mass/Vol] 187 mg/dL 26-217 [facility] Work Phone: Serum perinuclear neutrophil cytoplasmic antibody titer by immunofluorescenceon 03-27-2022 Neutrophil cytoplasmic Ab.perinuclear IF (S) [Titer] <1:20 titer Neg:<1:20 [facility] Work Phone: Comment on above: The presence of posi tive fluorescence exhibiting P-ANCA orC-ANCA patterns alone is not specific for the diagnosis ofWegener's Granulomatosis (WG) or microscopic polyangiitis.Decisions about treatment should not be based solely onANCA IFA results. The [employer] ANCA Group Consensusrecommends follow up testing of positive sera with both MD-3 and MPO-ANCA enzyme immunoassays. As many as 5% serumsamples are positive only by EIA. Ref. AM J Clin [id number];111:507-513. Thin prep Papanicolaou smear with manual screeningon 03-27-2022 Thin prep Papanicolaou smear with manual screening 204 U/L 84-246 [facility] Work Phone: Giardia lamblia ag stool EIA on 01-16-2022 G. lamblia Ag IA Ql (Stl) See comment [facility] Work Phone: Comment on above: TEST RESULT LIMITSGi ardia lamblia Ag, EIA Negative Negative __ [facility] ORIGINAL REPORT ON FILE IN LAB CONTAINS ADDITIONAL TEST SITE INFORMATION. No Panel Informationon 01-16 Stool Calprotectin 27 ug/g 0-120 [facility] Work Phone: Comment on above: Concentration Interp retation Follow-Up<16 - 50 ug/g Normal None>50 -120 ug/g Borderline Re-evaluate in 4-6 weeks >120 ug/g Abnormal Repeat as clinically indicatedPerformed at: [facility] Lab[address] [id number] Director: Haleigh Angel MD, Phone: [phone] Stool Pancreatic Elastase 367 >200 [facility] Work Phone: Comment on above: Result Units: ug Kati st./g Severe Pancreatic Insufficiency: <100 Moderate Pancreatic Insufficiency: 100 - 200 Normal: >200 Serum or plasma gastrin francois urement (mass/volume)on 01-16-2022 Gastrin [Mass/Vol] 57 pg/mL 0-115 [facility] Work Phone: Comment on above: Siemens Immulite 200 0 Immunochemiluminometric assay (ICMA)Values obtained with different assay methods or kits cannotbe used interchangeably. Results cannot be interpreted asabsolute evidence of the presence or absence of malignantdisease. Absolute lymphocyte counton 01-14-2022 Lymphocytes Auto (Unsp spec) [#/Vol] 1.68 10*3/uL 0.83-4.51 [facility] Work Phone: Albumin Elph [Mass/Vol]on Albumin [Mass/Vol] Not Reportable [facility] Work Phone: Basophil percentageon 2021 Basophil percentage < 0.2 AI 0.0-0.9 [facility] Work Phone: Basophils/100 WBC (Bld) 1.7 % 0-1 [facility] Work Phone: Bilirubin [Mass/Vol] 0.60 mg/dL 0.20-1.[address] [facility] Work Phone: Comment on above: For patients on eltr ombopag therapy, use of Dimension Pierre Part TBIL is not recommended. Chloride [Moles/Vol] 110 mmol/L 98-[address] [facility] Work Phone: Eosinophils/100 WBC (Bld) 7.7 % 0-5 [facility] Work Phone: Glucose [Mass/Vol] 94 mg/dL 74-106 [facility] Work Phone: Neutrophils (Bld) [#/Vol] 2.2 10*3/uL 2.0-7.7 [facility] Work Phone: Neutrophils/100 WBC (Bld) 45.5 % 47-70 [facility] Work Phone: Potassium [Moles/Vol] 3.9 mmol/L 3.5-5.1 [facility] Work Phone: Protein [Mass/Vol] 8.1 g/dL 6.4-8.2 [facility] Work Phone: Sodium [Moles/Vol] 141 mmol/L 136-145 [facility] Work Phone: WBC (Bld) [#/Vol] 4.8 10*3/uL 4.4-11.0 [facility] Work Phone: Blood erythrocytes count (nu mber/volume)on 01-14-2022 RBC (Bld) [#/Vol] 4.48 10*6/uL 4.2-5.4 [facility]: Blood hemoglobin measurement (mass/volume)on 01-14-2022 Hemoglobin (Bld) [Mass/Vol] 15.3 g/dL 12.0-15.0 [facility] Work Phone: Blood lymphocytes/100 leukoc yteson 01-14-2022 Lymphocytes/100 WBC (Bld) 34.8 % 19-41 [facility] Work Phone: Blood monocytes/100 leukocyt eson 01-14-2022 Monocytes/100 WBC (Bld) 9.9 % 0-10 [facility] Work Phone: Blood platelet mean volumeon 01-14-2022 Platelet mean volume (Bld) [Entitic vol] 9.3 fL 6.2-12.0 [facility] Work Phone: Determination of erythrocyte mean corpuscular volume (MCV)on 01-14-2022 MCV (RBC) [Entitic vol] 96.9 fL 81-99 [facility] Work Phone: Erythrocyte sedimentation ra paul 01-14-2022 ESR (Bld) [Velocity] 12 mm/h 0-[address] [facility] Work Phone: Hematocrit Auto (Bld) [Volum e fraction]on 01-14-2022 Hematocrit (Bld) [Volume fraction] 43.4 % 37-47 [facility] Work Phone: Interpretation of serum or p lasma protein pattern by immunofixation (narrative resulton 01-14-2022 Protein Fractions Immunofixation Russel [Interp] Not Reportable [facility] Work Phone: Laboratory - Chemistry and C hemistry - challengeon 01-14-2022 ALP [Catalytic activity/Vol] 92 U/L 45-117 [facility] Work Phone: ALT [Catalytic activity/Vol] 26 U/L 13-56 [facility] Work Phone: CK [Catalytic activity/Vol] 123 U/L 26-192 [facility] Work Phone: CO2 [Moles/Vol] 24.0 mmol/L 21.0-32.0 [facility] Work Phone: Globulin (S) [Mass/Vol] 4.7 g/dL 2.2-4.2 [facility] Work Phone: Urea nitrogen/Creatinine [Mass ratio] 14.9 mg/mg 10-20 [facility] Work Phone: Laboratory - Hematology and Cell countson 01-14-2022 Erythrocyte distribution width (RBC) [Entitic vol] 44.8 fL 35.1-43.9 [facility] Work Phone: Erythrocyte distribution width (RBC) [Ratio] 12.7 % 11.6-14.6 [facility] Work Phone: Immature granulocytes/100 WBC (Bld) 0.400 % 0.0-0.9 [facility] Work Phone: Comment on above: IG% - Immature Granu locytes (promyelocytes, myelocytes and metamyelocytes) > 1% indicates that a LEFT SHIFT is Present. MCH (RBC) [Entitic mass] 34.2 pg 27.0-32.0 [facility] Work Phone: Nucleated RBC/100 WBC (Bld) [Ratio] 0 % 0-5 [facility] Work Phone: MCHC Auto (RBC) [Mass/Vol]on 01-14-2022 MCHC (RBC) [Mass/Vol] 35.3 g/dL 32-36 [facility] Work Phone: No Panel Informationon 01-14 Centromere B Antibody <0.2 AI 0.0-0.9 [facility] Work Phone: Endomysial IgA Antibody Negative Negative [facility] Work Phone: Estimated GFR (MDRD) Amer 88 mL/min >60 [facility] Work Phone: Comment on above: GFR Calc Estimated GFR (MDRD) Non-Af Amer 72 mL/min >60 [facility] Work Phone: Comment on above: Non- GFR Calc Immunoglobulin E See comment [facility] Work Phone: Comment on above: TEST RESULT LIMITSIm munoglobulin E, Total 276 IU/mL 6 - 495 TESTING PERFORMED AT [facility]. ORIGINAL REPORT ON FILE IN LAB CONTAINS ADDITIONAL TEST SITE INFORMATION. FUSE SPOOLER Antibody <0.2 AI 0.0-0.9 [facility] Work Phone: Platelets bldon 01-14-2022 Platelets (Bld) [#/Vol] 280 10*3/uL 150-450 [facility] Work Phone: Serum DNA double strand anti body assay (units/volume)on 01-14-2022 DNA double strand Ab Qn (S) 1 [IU]/mL 0-9 [facility] Work Phone: Comment on above: Negative <5 Equivoca l 5 - 9 Positive >9 Serum IgA measurement (units /volume)on 01-14-2022 IgA Qn (S) 318 mg/dL 87-352 [facility] Work Phone: Comment on above: Performed at: - [facility] [employer] [address] [id number] Director: Fred Agustin PhD, Phone: [phone] Serum Reyna-1 antibody assay (u nits/volume)on 01-14-2022 Reyna-1 extractable nuclear Ab Qn (S) <0.2 AI 0.0-0.9 [facility] Work Phone: Serum Scl-70 extractable nuc lear antibody assay (units/volume)on 01-14-2022 SCL-70 extractable nuclear Ab Qn (S) <0.2 AI 0.0-0.9 [facility] Work Phone: Serum Baig extractable nucl ear antibody detectionon 01-14-2022 Baig extractable nuclear Ab Ql (S) <0.2 AI 0.0-0.9 [facility] Work Phone: Serum cwrjn-5-gvydmbpo measu rement by electrophoresison 01-14-2022 Alpha 1 globulin Elph [Mass/Vol] Not Reportable [facility] Work Phone: Serum classic neutrophil cyt oplasmic antibody assay (units/volume)on 01-14-2022 Neutrophil cytoplasmic Ab.classic Qn (S) See comment [facility] Work Phone: Comment on above: TEST [...] up testing of positive sera with both MD-3 and MPO-ANCA enzyme immunoassays. As many as 5% serum samples are positive only by EIA.Ref. AM J Clin Pathol 1999;111:507-513.Atypical pANCA <1:20 titer Neg:<1:20The atypical pANCA pattern has been observed in a significant percentage of patients with ulcerative colitis, primary sclerosing cholangitis and autoimmune hepatitis. ____ TESTING PERFORMED AT [facility]. ORIGINAL REPORT ON FILE IN LAB CONTAINS ADDITIONAL TEST SITE INFORMATION. Serum or plasma C reactive p rotein measurement (mass/volume)on 01-14-2022 CRP [Mass/Vol] 3.53 mg/L 0.0-3.0 [facility] Work Phone: Comment on above: C-Reactive Protein ( CRP) provides useful information for thediagnosis, therapy and monitoring of inflammatory processesand associated diseases. For the evaluation of Relative Riskfor Cardiovascular Disease, a High Sensitivity CRP (HSCRP)should be ordered. Serum or plasma IgA measurem ent (mass/volume)on 01-14-2022 IgA [Mass/Vol] Not Reportable [facility] Work Phone: Serum or plasma IgG measurem ent (mass/volume)on 01-14-2022 IgG [Mass/Vol] Not Reportable [facility] Work Phone: Serum or plasma IgM measurem ent (mass/volume)on 01-14-2022 IgM [Mass/Vol] Not Reportable [facility] Work Phone: Serum or plasma albumin francois urement (mass/volume)on 01-14-2022 Albumin [Mass/Vol] 3.4 g/dL 3.2-5.0 [facility] Work Phone: Serum or plasma albumin/glob ulin mass ratioon 01-14-2022 Albumin/Globulin [Mass ratio] 0.7 {ratio} 0.9-2.4 [facility] Work Phone: Serum or plasma beta globuli n measurement by electrophoresis (mass/volume)on 01-14-2022 Beta globulin Elph [Mass/Vol] Not Reportable [facility] Work Phone: Serum or plasma calcium francois urement (mass/volume)on 01-14-2022 Calcium [Mass/Vol] 9.1 mg/dL 8.5-10.1 [facility] Work Phone: Serum or plasma creatinine m easurement (mass/volume)on 01-14-2022 Creatinine [Mass/Vol] 0.87 mg/dL 0.55-1.02 [facility] Work Phone: Comment on above: The validity of the calculated GFR & GFRAA in patients over 70 years has not been determined. Clinical correlation is essential. Serum or plasma ferritin rosette surement (mass/volume)on 01-14-2022 Ferritin [Mass/Vol] 66 ng/mL 8-252 [facility] Work Phone: Serum or plasma gamma globul in measurement by electrophoresis (mass/volume)on 01-14-2022 Gamma globulin Elph [Mass/Vol] Not Reportable [facility] Work Phone: Serum or plasma urea nitroge n measurement (mass/volume)on 01-14-2022 Urea nitrogen [Mass/Vol] 13 mg/dL 7-18 [facility] Work Phone: Serum perinuclear neutrophil cytoplasmic antibody titer by immunofluorescenceon 01-14-2022 Neutrophil cytoplasmic Ab.perinuclear IF (S) [Titer] Not Reportable [facility] Work Phone: Serum tissue transglutaminas e IgA antibody assay (units/volume)on 01-14-2022 tTG IgA Qn (S) <2 U/mL 0-3 [facility] Work Phone: Comment on above: Negative 0 - 3 Weak Positive 4 - 10 Positive >10 Tissue Transglutaminase (tTG) has been identified as the endomysial antigen. Studies have demonstr- ated that endomysial IgA antibodies have over 99% specificity for gluten sensitive enteropathy. Thin prep Papanicolaou smear with manual screeningon 01-14-2022 Thin prep Papanicolaou smear with manual screening 19 U/L 15-37 [facility] Work Phone: Thin prep Papanicolaou smear with manual screening 7 5-15 [facility] Work Phone: Thin prep Papanicolaou smear with manual screening 189 U/L 84-246 [facility] Work Phone: Thin prep Papanicolaou smear with manual screening Not Reportable [facility] Work Phone: Total protein bloodon 2021 Protein [Mass/Vol] See comment [facility] Work Phone: Comment on above: TEST RESULT LIMITSIF E and PE, SerumImmunoglobulin G, Qn, Serum 1866 High mg/dL [id number] A, Qn, Serum 319 mg/dL 87-352Immunoglobulin M, Qn, Serum 196 mg/dL 26-217Protein, Total 7.9 g/dL 6.0-8.5Albumin 3.7 g/dL 2.9-4.6Tvbsd-9-Yldwezkz 0.3 g/dL 0.0-0.2Gbstc-8-Qcdfjeal 0.8 g/dL 0.4-1.0Beta Globulin 1.2 g/dL 0.7-1.3Gamma Globulin 1.9 High g/dL 0.4-1.8M-Pasha Not Observed g/dL Not ObservedGlobulin, Total 4.2 High g/dL 2.2-3.9A/G Ratio 0.9 0.7-1.7Immunofixation Result,Serum No monoclonality detected.Please note: Protein electrophoresis scan will follow via computer, mail, or data analytics architect delivery. ___ TESTING PERFORMED AT [facility]. ORIGINAL REPORT ON FILE IN LAB CONTAINS ADDITIONAL TEST SITE INFORMATION. HEPATITIS PANEL ([id number])Order ed By: Main Entree Cook And Cashier on 03-16-2021 HAV IgM IA Ql Negative Normal [facility]; [facility] Work Phone: Comment on above: PATIENT NOT FASTINGP ERFORMED BY: HERI LUMI Mask [id number] [facility] [id number] HBV core IgM IA Ql Negative Normal [facility]; [facility] Work Phone: Comment on above: PATIENT NOT FASTINGP ERFORMED BY: HERI LUMI Mask [id number] [facility] [id number] HBV surface Ag IA Ql Negative Normal Comp rehensive [facility]; [facility] Work Phone: Comment on above: PATIENT NOT FASTINGP ERFORMED BY: HERI LUMI Mask [id number] [facility] [id number] HCV Ab Signal/Cutoff IA [Rel units/Vol] {ratio} Normal 0.0-0.9 [facility]; [facility] Work Phone: Comment on above: Negative: < 0.8 Inde terminate: 0.8 - 0.9 Positive: > 0.9 . The CDC recommends that a positive HCV antibody result be followed up with a HCV Nucleic Acid Amplification test (373919). PATIENT NOT FASTINGP ERFORMED BY: HERI LUMI Mask [id number] [facility] [id number] CBC & PLATELETS (AUTO) (8502 7)Ordered By: Main Entree Cook And Cashier on 03-13-2021 Erythrocyte distribution width (RBC) [Ratio] 12.4 % Normal 11.7-15.4 [facility]; [facility] Work Phone: Comment on above: PATIENT NOT FASTINGP ERFORMED BY: LUMI Mask [id number] [facility] [id number] Hematocrit (Bld) [Volume fraction] 44.1 % Normal 34.0-46.6 [facility]; [facility] Work Phone: Comment on above: PATIENT NOT FASTINGP ERFORMED BY: HERI [place] [facility] [id number] Hemoglobin (Bld) [Mass/Vol] 16.0 g/dL Abnormal 11.1-15.9 [facility]; [facility] Work Phone: Comment on above: PATIENT NOT FASTINGP ERFORMED BY: HERI LabCoever TeresaNqvbpz7[address] [facility] [place] [id number] MCH (RBC) [Entitic mass] 35.2 pg Abnormal 26.6-33.0 [facility]; [facility] Work Phone: Comment on above: PATIENT NOT FASTINGP ERFORMED BY: HERI [facility] Xgwyao8147 [address] RoadFormerly [facility]in [place] [id number] MCHC (RBC) [Mass/Vol] 36.3 g/dL Abnormal 31.5-35.7 [facility]; [facility] Work Phone: Comment on above: PATIENT NOT FASTINGP ERFORMED BY: HERI Teresalin[address] [facility] [id number] MCV (RBC) [Entitic vol] 97 fL Normal 79-97 [facility]; [facility] Work Phone: Comment on above: PATIENT NOT FASTINGP ERFORMED BY: HERI Fairbanks[address] [facility] [place] [id number] Platelets (Bld) [#/Vol] 260 10*3/uL Normal 150-450 [facility]; [facility] Work Phone: Comment on above: PATIENT NOT FASTINGP ERFORMED BY: CB [facility] Qhfcao[address] [facility] [place] [id number] RBC (Bld) [#/Vol] 4.54 10*6/uL Normal 3.77-5.28 [facility] ehensive Internal Medicine; [facility] Work Phone: Comment on above: PATIENT NOT FASTINGP ERFORMED BY: HERI [facility] Clgodw2725 Domingo RoadDublin [place] [id number] WBC (Bld) [#/Vol] 5.1 10*3/uL Normal 3.4-10.8 [facility]; [facility] Work Phone: Comment on above: PATIENT NOT FASTINGP ERFORMED BY: CB [facility] Iyxnno5566 [address]ingo RoadDublin [place] [id number] GLUCOSE ([id number])Ordered By: S ystem Meteorology Instructor on 03-13-2021 Glucose [Mass/Vol] 95 mg/dL Normal 65-99 [facility]; [facility] Work Phone: Comment on above: PATIENT NOT FASTINGP ERFORMED BY: CB [facility] Bdjnht1581 [address]ingo RoadDublin [place] [id number] HEPATIC FUNCTION PANEL (8006 [id number])Ordered By: Main Entree Cook And Cashier on 03-13-2021 Albumin [Mass/Vol] 4.1 g/dL Normal 3.8-4.9 [facility]; [facility] Work Phone: Comment on above: PATIENT NOT FASTINGP ERFORMED BY: CB [facility] Wrbobs5034 [address] RoadDublin [place] [id number] ALP [Catalytic activity/Vol] 94 U/L Normal 48-121 [facility]; [facility] Work Phone: Comment on above: PATIENT NOT FASTINGP ERFORMED BY: CB [facility] Vggndx1701 [address] RoadDublin [place] [id number] ALT [Catalytic activity/Vol] 44 U/L Abnormal 0-32 [facility]; [facility] Work Phone: Comment on above: PATIENT NOT FASTINGP ERFORMED BY: CB [facility] Wvgfdn3749 [address] RoadDublin [place] [id number] AST [Catalytic activity/Vol] 47 U/L Abnormal 0-40 [facility]; [facility] Work Phone: Comment on above: PATIENT NOT FASTINGP ERFORMED BY: CB [facility] Hvknmr7429 [address] RoadDublin [place] [id number] Bilirubin [Mass/Vol] 0.6 mg/dL Normal 0.0-1.2 Comp [facility]; [facility] Work Phone: Comment on above: PATIENT NOT FASTINGP ERFORMED BY: CB [facility] Ohnpwe[address] [facility] [place] [id number] Bilirubin.direct [Mass/Vol] 0.18 mg/dL Normal 0.00-0.40 [facility]; [facility] Work Phone: Comment on above: PATIENT NOT FASTINGP ERFORMED BY: HERI [address] [facility] [place] [id number] Protein [Mass/Vol] 7.8 g/dL Normal 6.0-8.5 [facility]; [facility] Work Phone: Comment on above: PATIENT NOT FASTINGP ERFORMED BY: HERI Fairbanks[address] [facility]in [place] [id number] LIPID PANEL ([id number])Ordered B y: Main Entree Cook And Cashier on 03-13-2021 Cholesterol [Mass/Vol] 192 mg/dL Normal 100-199 [facility]; [facility] Work Phone: Comment on above: PATIENT NOT FASTINGP ERFORMED BY: HERI Fairbanks[address] [facility] [place] [id number] Cholesterol in HDL [Mass/Vol] 69 mg/dL Normal [facility]; [facility] Work Phone: Comment on above: PATIENT NOT FASTINGP ERFORMED BY: HERI Fairbanks[address] [facility] [place] [id number] Triglyceride [Mass/Vol] 92 mg/dL Normal 0-149 [facility]; [facility] Work Phone: Comment on above: PATIENT NOT FASTINGP ERFORMED BY: HERI Fairbanks[address] [facility] [place] [id number] LIPID PANEL (18001) 16 mg/dL Normal 5-40 Compr ensive [facility]; [facility] Work Phone: Comment on above: PATIENT NOT FASTINGP ERFORMED BY: HERI Fairbanks[address] [facility] [place] [id number] LIPID PANEL (79584) 107 mg/dL Abnormal 0-99 Compr ensive [facility]; [facility] Work Phone: Comment on above: PATIENT NOT FASTINGP ERFORMED BY: HERI [facility] Mzmdss[address] [facility] [place] [id number] LIPID PANEL (99990) 1.6 {ratio} Normal 0.0-3.2 Comp rehensive [facility]; [facility] Work Phone: Comment on above: LDL/HDL Ratio Men Wo men 1/2 Avg.Risk 1.0 1.5 Avg.Risk 3.6 3.2 2X Avg.Risk 6.2 5.0 3X Avg.Risk 8.0 6.1 PATIENT NOT FASTINGP ERFORMED BY: [facility] Gmltho1624 [facility] [id number] TSH (THYROID STIMULATING HOR SHELLY) ([id number])Ordered By: Main Entree Cook And Cashier on 03-13-2021 TSH Qn 1.390 {uIU/mL} Normal 0.450-4.500 [facility]; [facility] Work Phone: Comment on above: PATIENT NOT FASTINGP ERFORMED BY: [facility] Bycxlr1227 [facility] [id number] CALCIFEDIOL ([id number])Ordered B y: Main Entree Cook And Cashier on 04-04-2020 25-Hydroxyvitamin D2+25-Hydroxyvitamin D3 [Mass/Vol] 32.1 ng/mL Normal 30.0-100.0 [facility] Work Phone: Comment on above: Vitamin D deficiency has been defined by the [place] of[place]icine and an Endocrine Society practice guideline as alevel of serum 25-OH vitamin D less than 20 ng/mL (1,2).The Endocrine Society went on to further define vitamin Dinsufficiency as a level between 21 and 29 ng/mL (2).1. IOM ([place] of Medicine). 2010. Dietary reference intakes for calcium and D. [place]: The National Academies Press.2. Claude MF, Yelitza GARCES, Donald GRAVES, et al. Evaluation, treatment, and prevention of vitamin D deficiency: an Endocrine Society clinical practice guideline. JCEM. 2010; 96(7):1911-30. PATIENT NOT FASTINGP ERFORMED BY: [facility] Edrodq8523 [facility] [id number] CBC & PLATELETS (AUTO) (8502 7)Ordered By: Main Entree Cook And Cashier on 03-01-2020 Erythrocyte distribution width (RBC) [Ratio] 12.4 % Normal 11.7-15.4 [facility] Work Phone: Comment on above: Mar 01 2020; PATIENT WAS FASTINGPERFORMED BY: CB [facility] Wkosxy5060 [address] RoadDublin [place] [id number] Hematocrit (Bld) [Volume fraction] 41.2 % Normal 34.0-46.6 [facility] Work Phone: Comment on above: Mar 01 2020; PATIENT WAS FASTINGPERFORMED BY: CB [facility] Ixzwpo1915 [address]Dublin [place] [id number] Hemoglobin (Bld) [Mass/Vol] 15.5 g/dL Normal 11.1-15.9 [facility] Work Phone: Comment on above: Mar 01 2020; PATIENT WAS FASTINGPERFORMED BY: CB [facility] Tgviwo4842 [address]Dublin [place] [id number] MCH (RBC) [Entitic mass] 36.5 pg Abnormal 26.6-33.0 [facility] Work Phone: Comment on above: Mar 01 2020; PATIENT WAS FASTINGPERFORMED BY: CB [facility] Xujtop7500 [address]Dublin [place] [id number] MCHC (RBC) [Mass/Vol] 37.6 g/dL Abnormal 31.5-35.7 [facility] Work Phone: Comment on above: Mar 01 2020; PATIENT WAS FASTINGPERFORMED BY: CB [facility] Cdqfhp4564 [address]Dublin [place] [id number] MCV (RBC) [Entitic vol] 97 fL Normal 79-97 [facility] Work Phone: Comment on above: Mar 01 2020; PATIENT WAS FASTINGPERFORMED BY: CB [facility] Hgzvjz8528 [address]Dublin [place] [id number] Morphology Russel (Bld) [Interp] Note: Normal [facility] Work Phone: Comment on above: Verified by microsco pic examination. Mar 01 2020; PATIENT WAS FASTINGPERFORMED BY: CB [facility] Bfhlyc6700 [address]Dublin [place] [id number] Platelets (Bld) [#/Vol] 256 {x10E3/uL} Normal 150-450 [facility] Work Phone: Comment on above: Mar 01 2020; PATIENT WAS FASTINGPERFORMED BY: CB [facility] Gynlao3336 [address]Dublin [place] [id number] Platelets (Bld) [#/Vol] 256 10*3/uL Normal 150-450 [facility]; [facility] Work Phone: Comment on above: Mar 01 2020; PATIENT WAS FASTINGPERFORMED BY: CB [facility] Zghozj1267 [address] RoadDublin [place] [id number] RBC (Bld) [#/Vol] 4.25 {x10E6/uL} Normal 3.77-5.28 [facility] Work Phone: Comment on above: Red blood cells appe ar slightly agglutinated Mar 01 2020; PATIENT WAS FASTINGPERFORMED BY: CB [facility] Owhzhx6914 [address]Dublin [place] [id number] RBC (Bld) [#/Vol] 4.25 10*6/uL Normal 3.77-5.28 [facility]; [facility] Work Phone: Comment on above: Red blood cells appe ar slightly agglutinated Mar 01 2020; PATIENT WAS FASTINGPERFORMED BY: CB [facility] Zuaesn3838 [address]Dublin [place] [id number] WBC (Bld) [#/Vol] 4.5 {x10E3/uL} Normal 3.4-10.8 [facility] Internal Medicine Work Phone: Comment on above: Mar 01 2020; PATIENT WAS FASTINGPERFORMED BY: CB [facility] Eoadod8470 [address] RoadDublin [place] [id number] WBC (Bld) [#/Vol] 4.5 10*3/uL Normal 3.4-10.8 [facility] Internal Medicine; [facility] Work Phone: Comment on above: Mar 01 2020; PATIENT WAS FASTINGPERFORMED BY: CB [facility] Uptwhe3367 [address] RoadDublin [place] [id number] LIPID PANEL ([id number])Ordered B y: Main Entree Cook And Cashier on 03-01-2020 Cholesterol [Mass/Vol] 283 mg/dL Abnormal 100-199 Co mprehensive Internal Medicine Work Phone: Comment on above: Mar 01 2020; PATIENT WAS FASTINGPERFORMED BY: CB [facility] Wrsrhd8812 [address] RoadDublin [place] [id number] Cholesterol in HDL [Mass/Vol] 74 mg/dL Normal [facility] Work Phone: Comment on above: Mar 01 2020; PATIENT WAS FASTINGPERFORMED BY: CB [facility] Egqjeo6190 [address] RoadDublin [place] [id number] Cholesterol in LDL [Mass/Vol] 176 mg/dL Abnormal 0-99 [facility] Work Phone: Comment on above: Mar 01 2020; PATIENT WAS FASTINGPERFORMED BY: CB [facility] Xnxsys4440 [address]Dublin [place] [id number] Cholesterol in LDL/Cholesterol in HDL [Mass ratio] 2.4 {ratio} Normal 0.0-3.2 [facility] Work Phone: Comment on above: LDL/HDL Ratio Men Wo men 1/2 Avg.Risk 1.0 1.5 Avg.Risk 3.6 3.2 2X Avg.Risk 6.2 5.0 3X Avg.Risk 8.0 6.1 Mar 01 2020; PATIENT WAS FASTINGPERFORMED BY: CB [facility] Cudajp2232 [address] RoadDublin [place] [id number] Cholesterol in VLDL [Mass/Vol] 33 mg/dL Normal 5-40 [facility] Work Phone: Comment on above: Mar 01 2020; PATIENT WAS FASTINGPERFORMED BY: CB [facility] Lsadbv7232 [address] RoadDublin [place] [id number] Triglyceride [Mass/Vol] 163 mg/dL Abnormal 0-149 [facility] Work Phone: Comment on above: Mar 01 2020; PATIENT WAS FASTINGPERFORMED BY: CB [facility] Svwnli6531 [address]Dublin [place] [id number] Metabolic Panel, Comprehensi ve ([id number])Ordered By: Main Entree Cook And Cashier on 03-01-2020 Albumin [Mass/Vol] 4.4 g/dL Normal 3.8-4.8 [facility] Internal Medicine Work Phone: Comment on above: Mar 01 2020; PATIENT WAS FASTINGPERFORMED BY: CB [facility] Dzmuil8388 [address] RoadDublin [place] [id number] Albumin/Globulin [Mass ratio] 1.3 {ratio} Normal 1.2-2.2 [facility] Work Phone: Comment on above: Mar 01 2020; PATIENT WAS FASTINGPERFORMED BY: CB [facility] Augsfc0666 [address] RoadDublin [place] [id number] ALP [Catalytic activity/Vol] 77 [iU]/L Normal 39-117 [facility] Work Phone: Comment on above: Mar 01 2020; PATIENT WAS FASTINGPERFORMED BY: CB [facility] Qcllar7468 [address] RoadDublin [place] [id number] ALP [Catalytic activity/Vol] 77 U/L Normal 39-117 [facility]; [facility] Work Phone: Comment on above: Mar 01 2020; PATIENT WAS FASTINGPERFORMED BY: CB [facility] Nswclf0874 [address] RoadDublin [place] [id number] ALT [Catalytic activity/Vol] 45 [iU]/L Abnormal 0-32 [facility] Work Phone: Comment on above: Mar 01 2020; PATIENT WAS FASTINGPERFORMED BY: CB [facility] Hragxj0937 [address] RoadDublin [place] [id number] ALT [Catalytic activity/Vol] 45 U/L Abnormal 0-32 [facility]; [facility] Work Phone: Comment on above: Mar 01 2020; PATIENT WAS FASTINGPERFORMED BY: CB [facility] Xdthdo5683 [address] RoadDublin [place] [id number] AST [Catalytic activity/Vol] 41 [iU]/L Abnormal 0-40 [facility] Work Phone: Comment on above: Mar 01 2020; PATIENT WAS FASTINGPERFORMED BY: CB [facility] Aybqvc7325 [address] RoadDublin [place] [id number] AST [Catalytic activity/Vol] 41 U/L Abnormal 0-40 [facility]; [facility] Work Phone: Comment on above: Mar 01 2020; PATIENT WAS FASTINGPERFORMED BY: CB [facility] Tqydfy9038 [address] RoadDublin [place] [id number] Bilirubin [Mass/Vol] 0.5 mg/dL Normal 0.0-1.2 [facility] rehensive Internal Medicine Work Phone: Comment on above: Mar 01 2020; PATIENT WAS FASTINGPERFORMED BY: CB [facility] Tcjgwk1176 [address] RoadDublin [place] [id number] Calcium [Mass/Vol] 9.5 mg/dL Normal 8.7-10.2 [facility] Internal Medicine Work Phone: Comment on above: Mar 01 2020; PATIENT WAS FASTINGPERFORMED BY: CB [facility] Yeljfv2704 [address]Dublin [place] [id number] Chloride [Moles/Vol] 104 mmol/L Normal 96-106 [facility] Work Phone: Comment on above: Mar 01 2020; PATIENT WAS FASTINGPERFORMED BY: CB [facility] Zzbvor3545 [address] RoadDublin [place] [id number] CO2 [Moles/Vol] 21 mmol/L Normal 20-29 [facility] Internal Medicine Work Phone: Comment on above: Mar 01 2020; PATIENT WAS FASTINGPERFORMED BY: CB [facility] Bhyikb9307 [address]Dublin [place] [id number] Creatinine [Mass/Vol] 0.98 mg/dL Normal 0.57-1.[address] [facility]ensive Internal [facility] Work Phone: Comment on above: Mar 01 2020; PATIENT WAS FASTINGPERFORMED BY: CB [facility] Wfheis4399 [address] RoadDublin [place] [id number] GFR/1.73 sq M predicted among blacks CKD-EPI (S/P/Bld) [Vol rate/Area] 78 mL/min/1.73 Normal [facility] Work Phone: Comment on above: Mar 01 2020; PATIENT WAS FASTINGPERFORMED BY: HERI [facility] Ybresd7212 [address] Roadblin [place] [id number] GFR/1.73 sq M predicted among non-blacks CKD-EPI (S/P/Bld) [Vol rate/Area] 67 mL/min/1.73 Normal [facility] Work Phone: Comment on above: Mar 01 2020; PATIENT WAS FASTINGPERFORMED BY: HERI [facility] Ewxrof2016 [address]Dublin [place] [id number] Globulin (S) [Mass/Vol] 3.3 g/dL Normal 1.5-4.5 [facility] Internal Medicine Work Phone: Comment on above: Mar 01 2020; PATIENT WAS FASTINGPERFORMED BY: HERI [facility] Sfdifg1573 [address] RoadFormerly [facility] Hospitalin [place] [id number] Glucose [Mass/Vol] 95 mg/dL Normal 65-99 [facility] Internal Medicine Work Phone: Comment on above: Mar 01 2020; PATIENT WAS FASTINGPERFORMED BY: HERI [facility] Cppfst[address]98 [address] [facility]in [place] [id number] Potassium [Moles/Vol] 4.4 mmol/L Normal 3.5-5.[address] [facility] Internal Medicine Work Phone: Comment on above: Mar 01 2020; PATIENT WAS FASTINGPERFORMED BY: [facility] Jfpewv[address]353 [address] [facility]in [place] [id number] Protein [Mass/Vol] 7.7 g/dL Normal 6.0-8.5 [facility] Internal Medicine Work Phone: Comment on above: Mar 01 2020; PATIENT WAS FASTINGPERFORMED BY: [facility] Vyvdsa06[address] [facility]in [place] [id number] Sodium [Moles/Vol] 139 mmol/L Normal 134-144 [facility] Internal Medicine Work Phone: Comment on above: Mar 01 2020; PATIENT WAS FASTINGPERFORMED BY: [facility] Ekmdeu0950 [address] [facility] [id number] Urea nitrogen [Mass/Vol] 15 mg/dL Normal 6-24 [facility] Work Phone: Comment on above: Mar 01 2020; PATIENT WAS FASTINGPERFORMED BY: [facility] Ngcclm6623 [address] [facility] [id number] Urea nitrogen/Creatinine [Mass ratio] 15 mg/mg Normal 9-23 [facility] Work Phone: Comment on above: Mar 01 2020; PATIENT WAS FASTINGPERFORMED BY: [facility] Lcarnu6162 [facility] [id number] TSH (THYROID STIMULATING HOR SHELLY) ([id number])Ordered By: Main Entree Cook And Cashier on 03-01-2020 TSH Qn 1.710 {uIU/mL} Normal 0.450-4.500 [facility] Internal Medicine Work Phone: Comment on above: Mar 01 2020; PATIENT WAS FASTINGPERFORMED BY: LabInternational Network for Outcomes Research(INOR) Yrheii0253 [facility] [id number] FECAL OCCULT- Tubes sent antonia e ([id number])Ordered By: Andrew Baig on 02-28-2020 Hemoglobin.gastrointes tinal Ql (Stl) Negative Normal [facility] Work Phone: FECAL OCCULT- Tubes sent antonia e ([id number])Ordered By: Andrew Stewart on 02-28-2020 Hemoglobin.gastrointes tinal Ql (Stl) Negative Normal [facility]; [facility] Work Phone: URINE LANDRY CULTURE-IDENTIFICA [place] ([id number])Ordered By: Main Entree Cook And Cashier on 06-28-2019 Bacteria identified Cx Nom (U) Final report Abnormal [facility] Work Phone: Comment on above: PATIENT NOT FASTINGP ERFORMED BY: [facility] Qyzwnt8557 [facility] [id number] Information: SRC:UC Bacteria identified Cx Nom (U) BETAGB Abnormal [...] A). (CLSI) PATIENT NOT FASTINGP ERFORMED BY: [facility] Wkvwou5859 [facility] [id number] Information: SRC:KETURAH Urinalysis, Office ([phone])Or dered By: Cally Bales on 06-28-2019 Bilirubin [...] [facility] Work Phone: LIPID PANEL ([id number])Ordered B y: Main Entree Cook And Cashier on 06-16-2018 Cholesterol [Mass/Vol] 249 mg/dL Abnormal 100-199 Co m[facility] Internal Medicine Work Phone: Comment on above: PATIENT WAS FASTINGP ERFORMED BY: HERI [place]6[address]ifydin [place] [id number] Cholesterol in HDL [Mass/Vol] 74 mg/dL Normal [facility] Work Phone: Comment on above: PATIENT WAS FASTINGP ERFORMED BY: HERI [place] [facility] [facility] [place] [id number] Cholesterol in LDL [Mass/Vol] 152 mg/dL Abnormal 0-99 [facility] Work Phone: Comment on above: PATIENT WAS FASTINGP ERFORMED BY: HERI Teresalin6[address] [facility] [place] [id number] Cholesterol in LDL/Cholesterol in HDL [Mass ratio] 2.1 {ratio} Normal 0.0-3.2 [facility] Work Phone: Comment on above: LDL/HDL Ratio Men Wo men 1/2 Avg.Risk 1.0 1.5 Avg.Risk 3.6 3.2 2X Avg.Risk 6.2 5.0 3X Avg.Risk 8.0 6.1 PATIENT WAS FASTINGP ERFORMED BY: HERI Teresalin6370 Signifydblin [place] [id number] Cholesterol in VLDL [Mass/Vol] 23 mg/dL Normal 5-40 [facility] Work Phone: Comment on above: PATIENT WAS FASTINGP ERFORMED BY: HERI LabElena TeresaIochjq6324 [address] [facility] Medicalblin [place] [id number] Triglyceride [Mass/Vol] 115 mg/dL Normal 0-149 [facility] Work Phone: Comment on above: PATIENT WAS FASTINGP ERFORMED BY: HERI [facility] Xtpjvo6694 [address] [facility] [id number] Blood Glucose , Office ([phone])Ordered By: Janet Mendoza on 04-13-2018 Glucose Glucometer (BldC) [Moles/Vol] 148 1 Normal [facility] Work Phone: HgA1C , Office ([phone])Ordere d By: Janet Mendoza on 04-13-2018 HbA1c (Bld) [Mass fraction] 4.9 % Normal 4.6 - 7.1 [facility] Work Phone: CBC, Platelets & Auto Diff ( [phone])Ordered By: Main Entree Cook And Cashier on 04-10-2016 Basophils (Bld) [#/Vol] 0.0 {x10E3/uL} Normal 0.0-0.2 [facility] Work Phone: Comment on above: PATIENT WAS FASTINGP ERFORMED BY: [facility] Yeejjx8939 [address] [facility] [id number] Basophils (Bld) [#/Vol] 0.0 10*3/uL Normal 0.0-0.2 [facility]; [facility] Work Phone: Comment on above: PATIENT WAS FASTINGP ERFORMED BY: [facility] Pyriwo4234 [address] [facility] [id number] Basophils/100 WBC (Bld) 1 % Normal [facility] Work Phone: Comment on above: PATIENT WAS FASTINGP ERFORMED BY: [facility] Dnbscu7946 [address] [facility] [id number] Eosinophils (Bld) [#/Vol] 0.2 {x10E3/uL} Normal 0.0-0.4 [facility] Work Phone: Comment on above: PATIENT WAS FASTINGP ERFORMED BY: [facility] Nebdlb7438 [address] [facility] [id number] Eosinophils (Bld) [#/Vol] 0.2 10*3/uL Normal 0.0-0.4 [facility]; [facility] Work Phone: Comment on above: PATIENT WAS FASTINGP ERFORMED BY: HERI Winn Eqmmjy8490 [address] [facility] [id number] Eosinophils/100 WBC (Bld) 3 % Normal [facility] Work Phone: Comment on above: PATIENT WAS FASTINGP ERFORMED BY: [facility] Egrpuz9658 [facility] [id number] Erythrocyte distribution width (RBC) [Ratio] 13.1 % Normal 12.3-15.4 [facility] Work Phone: Comment on above: PATIENT WAS FASTINGP ERFORMED BY: [facility] Xrdafz9873 [facility] [id number] Hematocrit (Bld) [Volume fraction] 41.1 % Normal 34.0-46.6 [facility] Work Phone: Comment on above: PATIENT WAS FASTINGP ERFORMED BY: [facility] Wtcrof1612 [facility] [id number] Hemoglobin (Bld) [Mass/Vol] 14.2 g/dL Normal 11.1-15.9 [facility] Work Phone: Comment on above: PATIENT WAS FASTINGP ERFORMED BY: [facility] Wtltgh2759 [address] [facility] [id number] Immature granulocytes (Bld) [#/Vol] 0.0 {x10E3/uL} Normal 0.0-0.1 [facility] Work Phone: Comment on above: PATIENT WAS FASTINGP ERFORMED BY: [facility] Nqluqf7747 [address] [facility]in [place] [id number] Immature granulocytes (Bld) [#/Vol] 0.0 10*3/uL Normal 0.0-0.1 [facility]; [facility] Work Phone: Comment on above: PATIENT WAS FASTINGP ERFORMED BY: [facility]6370 [address] [facility] [id number] Immature granulocytes/100 WBC (Bld) 0 % Normal [facility] Work Phone: Comment on above: PATIENT WAS FASTINGP ERFORMED BY: [facility] Myjovs4346 [address] RoadDublin [place] [id number] Lymphocytes (Bld) [#/Vol] 1.6 {x10E3/uL} Normal 0.7-3.1 [facility] Work Phone: Comment on above: PATIENT WAS FASTINGP ERFORMED BY: LabCoPlains [facility] Medical CenterZnbjfc7743 [address] RoadDublin [place] [id number] Lymphocytes (Bld) [#/Vol] 1.6 10*3/uL Normal 0.7-3.1 [facility]; [facility] Work Phone: Comment on above: PATIENT WAS FASTINGP ERFORMED BY: Lab[facility]6370 [address]Dublin [place] [id number] Lymphocytes/100 WBC (Bld) 32 % Normal [facility] Work Phone: Comment on above: PATIENT WAS FASTINGP ERFORMED BY: LabM[facility]6370 [address]Dublin [place] [id number] MCH (RBC) [Entitic mass] 32.4 pg Normal 26.6-33.0 [facility] Internal Medicine Work Phone: Comment on above: PATIENT WAS FASTINGP ERFORMED BY: LabM[facility]6370 [address]Dublin [place] [id number] MCHC (RBC) [Mass/Vol] 34.5 g/dL Normal 31.5-35.7 [facility] prehensive Internal Medicine Work Phone: Comment on above: PATIENT WAS FASTINGP ERFORMED BY: [facility] Eurmsb6505 [address]Dublin [place] [id number] MCV (RBC) [Entitic vol] 94 fL Normal 79-97 [facility] Internal Medicine Work Phone: Comment on above: PATIENT WAS FASTINGP ERFORMED BY: [facility] Owdadi4926 [address] RoadDublin [place] [id number] Monocytes (Bld) [#/Vol] 0.4 {x10E3/uL} Normal 0.1-0.9 [facility] Work Phone: Comment on above: PATIENT WAS FASTINGP ERFORMED BY: CB [facility] Jppgjd5466 [address] RoadDublin [place] [id number] Monocytes (Bld) [#/Vol] 0.4 10*3/uL Normal 0.1-0.9 [facility]; [facility] Work Phone: Comment on above: PATIENT WAS FASTINGP ERFORMED BY: CB [facility] Estpin1708 [address] RoadDublin [place] [id number] Monocytes/100 WBC (Bld) 8 % Normal [facility] Work Phone: Comment on above: PATIENT WAS FASTINGP ERFORMED BY: CB [facility] Fjbyul2547 [address] RoadDublin [place] [id number] Neutrophils (Bld) [#/Vol] 2.8 {x10E3/uL} Normal 1.4-7.0 [facility] Work Phone: Comment on above: PATIENT WAS FASTINGP ERFORMED BY: CB [facility] Plmszw1602 [address] RoadDublin [place] [id number] Neutrophils (Bld) [#/Vol] 2.8 10*3/uL Normal 1.4-7.0 [facility]; [facility] Work Phone: Comment on above: PATIENT WAS FASTINGP ERFORMED BY: [facility] Yftxcf0131 [address] RoadDublin [place] [id number] Neutrophils/100 WBC (Bld) 56 % Normal [facility] Work Phone: Comment on above: PATIENT WAS FASTINGP ERFORMED BY: CB [facility] Ochzpc1644 [address]Dublin [place] [id number] Platelets (Bld) [#/Vol] 257 {x10E3/uL} Normal 150-379 [facility] Work Phone: Comment on above: PATIENT WAS FASTINGP ERFORMED BY: CB [facility] Lhtcvg4503 [address] RoadDublin [place] [id number] Platelets (Bld) [#/Vol] 257 10*3/uL Normal 150-379 [facility]; [facility] Work Phone: Comment on above: PATIENT WAS FASTINGP ERFORMED BY: HERI LabCoever FairbanksEfeavm4101 [address] [facility]in [place] [id number] RBC (Bld) [#/Vol] 4.38 {x10E6/uL} Normal 3.77-5.28 Co [facility]ensive [facility] Work Phone: Comment on above: PATIENT WAS FASTINGP ERFORMED BY: CB [facility] Scyjbi4189 [address] [facility] Hospitalbl[facility] [place] [id number] RBC (Bld) [#/Vol] 4.38 10*6/uL Normal 3.77-5.28 [facility] Internal Medicine; [facility] Work Phone: Comment on above: PATIENT WAS FASTINGP ERFORMED BY: HERI [facility] Evdfjr4399 [facility] [id number] WBC (Bld) [#/Vol] 5.1 {x10E3/uL} Normal 3.4-10.8 [facility] Internal Medicine Work Phone: Comment on above: PATIENT WAS FASTINGP ERFORMED BY: HERI [facility] Paiiwg[address]10 [address] [facility] [place] [id number] WBC (Bld) [#/Vol] 5.1 10*3/uL Normal 3.4-10.8 [facility] Internal Medicine; [facility] Work Phone: Comment on above: PATIENT WAS FASTINGP ERFORMED BY: CB [facility] Tmwjap1228 [address] [facility]in [place] [id number] Lipid Panel ([id number])Ordered B y: Main Entree Cook And Cashier on 04-10-2016 Cholesterol [Mass/Vol] 239 mg/dL Abnormal 100-199 Co rust Internal Medicine Work Phone: Comment on above: PATIENT WAS FASTINGP ERFORMED BY: HERI [facility] Huxnva1976 [address] [facility] Hospitalbl[facility] [place] [id number] Cholesterol in HDL [Mass/Vol] 59 mg/dL Normal [facility] Work Phone: Comment on above: According to ATP-III Guidelines, HDL-C >59 mg/dL is considered anegative risk factor for CHD. PATIENT WAS FASTINGP ERFORMED BY: HERI Dino Fairbanks6370 [facility] [id number] Cholesterol in LDL [Mass/Vol] 144 mg/dL Abnormal 0-99 [facility] Work Phone: Comment on above: PATIENT WAS FASTINGP ERFORMED BY: HERI Tatumeevr Snzzks6962 [facility] [id number] Cholesterol in LDL/Cholesterol in HDL [Mass ratio] 2.4 {ratio_units} Normal 0.0-3.2 [facility] Work Phone: Comment on above: LDL/HDL Ratio Men Wo men 1/2 Avg.Risk 1.0 1.5 Avg.Risk 3.6 3.2 2X Avg.Risk 6.2 5.0 3X Avg.Risk 8.0 6.1 PATIENT WAS FASTINGP ERFORMED BY: HERI Tatumever TeresaHjwnml8646 [facility] [id number] Cholesterol in VLDL [Mass/Vol] 36 mg/dL Normal 5-40 [facility] Work Phone: Comment on above: PATIENT WAS FASTINGP ERFORMED BY: HERI Tatumever Bcbeeg8685 [facility] [id number] Triglyceride [Mass/Vol] 178 mg/dL Abnormal 0-149 [facility] Work Phone: Comment on above: PATIENT WAS FASTINGP ERFORMED BY: HERI LabManas Guccmk9046 [facility] [id number] Metabolic Panel, Comprehensi ve ([id number])Ordered By: Main Entree Cook And Cashier on 04-10-2016 Albumin [Mass/Vol] 4.1 g/dL Normal 3.5-5.5 [facility] Internal Medicine Work Phone: Comment on above: PATIENT WAS FASTINGP ERFORMED BY: HERI Dino Teresalin6370 [facility] [id number] Albumin/Globulin [Mass ratio] 1.3 {ratio} Normal 1.1-2.5 [facility] Work Phone: Comment on above: PATIENT WAS FASTINGP ERFORMED BY: HERI [facility] Vjhrhc9689 [address] RoadDublin [place] [id number] ALP [Catalytic activity/Vol] 61 [iU]/L Normal 39-117 [facility] Work Phone: Comment on above: PATIENT WAS FASTINGP ERFORMED BY: HERI [facility] Mifems2260 [address] RoadDublin [place] [id number] ALP [Catalytic activity/Vol] 61 U/L Normal 39-117 [facility]; [facility] Work Phone: Comment on above: PATIENT WAS FASTINGP ERFORMED BY: HERI [facility] Fquniu3322 [address] RoadDublin [place] [id number] ALT [Catalytic activity/Vol] 16 [iU]/L Normal 0-32 [facility] Work Phone: Comment on above: PATIENT WAS FASTINGP ERFORMED BY: HERI LabCoever TeresaEarpnu5763 [address] RoadDublin [place] [id number] ALT [Catalytic activity/Vol] 16 U/L Normal 0-32 [facility]; [facility] Work Phone: Comment on above: PATIENT WAS FASTINGP ERFORMED BY: HERI LabCoever TeresaRjmaxi1883 [address] RoadDublin [place] [id number] AST [Catalytic activity/Vol] 22 [iU]/L Normal 0-40 [facility] Work Phone: Comment on above: PATIENT WAS FASTINGP ERFORMED BY: HERI [facility] Udvdly7332 [address] RoadDublin [place] [id number] AST [Catalytic activity/Vol] 22 U/L Normal 0-40 [facility]; [facility] Work Phone: Comment on above: PATIENT WAS FASTINGP ERFORMED BY: HERI [facility] Uujztl3524 [address] RoadDublin [place] [id number] Bilirubin [Mass/Vol] 0.3 mg/dL Normal 0.0-1.2 [facility] Internal Medicine Work Phone: Comment on above: PATIENT WAS FASTINGP ERFORMED BY: HERI [facility] Teholt6973 [address] RoadDublin [place] [id number] Calcium [Mass/Vol] 9.1 mg/dL Normal 8.7-10.2 [facility] Internal Medicine Work Phone: Comment on above: PATIENT WAS FASTINGP ERFORMED BY: HERI [facility] Khywhh5499 [address] RoadDublin [place] [id number] Chloride [Moles/Vol] 100 mmol/L Normal 97-108 Comp [facility] hospitalensive Internal [facility] Work Phone: Comment on above: PATIENT WAS FASTINGP ERFORMED BY: CB [facility] Rfshgh0485 [address] RoadDublin [place] [id number] CO2 [Moles/Vol] 17 mmol/L Abnormal 18-29 [facility] Internal Medicine Work Phone: Comment on above: PATIENT WAS FASTINGP ERFORMED BY: [facility] Qqpzuu5355 [address] RoadDublin [place] [id number] Creatinine [Mass/Vol] 0.77 mg/dL Normal 0.57-1.00 [facility] Internal Medicine Work Phone: Comment on above: PATIENT WAS FASTINGP ERFORMED BY: HERI [facility] Oadmaz9495 [address] RoadDublin [place] [id number] GFR/1.73 sq M predicted among blacks CKD-EPI (S/P/Bld) [Vol rate/Area] 107 mL/min/1.73 Normal [facility] Work Phone: Comment on above: PATIENT WAS FASTINGP ERFORMED BY: [facility] Wbjzyy1474 [address] RoadDublin [place] [id number] GFR/1.73 sq M predicted among non-blacks CKD-EPI (S/P/Bld) [Vol rate/Area] 93 mL/min/1.73 Normal [facility] Work Phone: Comment on above: PATIENT WAS FASTINGP ERFORMED BY: [facility] Gzvqtq2991 [address] RoadDublin [place] [id number] Globulin (S) [Mass/Vol] 3.1 g/dL Normal 1.5-4.5 [facility] Work Phone: Comment on above: PATIENT WAS FASTINGP ERFORMED BY: HERI [facility] Iieldl1652 [address] RoadDublin [place] [id number] Glucose [Mass/Vol] 105 mg/dL Abnormal 65-99 [facility] Internal Medicine Work Phone: Comment on above: PATIENT WAS FASTINGP ERFORMED BY: HERI LabManas Uumkth6991 [address]Dublin [place] [id number] Potassium [Moles/Vol] 3.9 mmol/L Normal 3.5-5.2 [facility] Internal Medicine Work Phone: Comment on above: PATIENT WAS FASTINGP ERFORMED BY: HERI [facility] Mzwjwh1064 [address] [place] [id number] Protein [Mass/Vol] 7.2 g/dL Normal 6.0-8.5 [facility] Internal Medicine Work Phone: Comment on above: PATIENT WAS FASTINGP ERFORMED BY: HERI [facility] Spjdsz5937 [address] RoadDublin [place] [id number] Sodium [Moles/Vol] 140 mmol/L Normal 134-144 [facility] Internal Medicine Work Phone: Comment on above: PATIENT WAS FASTINGP ERFORMED BY: [facility] Qnqjci3925 Domingo RoadDublin [place] [id number] Urea nitrogen [Mass/Vol] 15 mg/dL Normal 6-24 [facility] Internal Medicine Work Phone: Comment on above: PATIENT WAS FASTINGP ERFORMED BY: HERI [facility] Zjxkgi3083 Domingo Roadblin [place] [id number] Urea nitrogen/Creatinine [Mass ratio] 19 mg/mg Normal 9-23 [facility] Internal Medicine Work Phone: Comment on above: PATIENT WAS FASTINGP ERFORMED BY: HERI [facility] Ewzwns5631 Domingo RoadDublin [place] [id number] TSH ([id number])Ordered By: Reginaldo Jones on 04-10-2016 TSH Qn 1.640 {uIU/mL} Normal 0.450-4.500 [facility] Internal Medicine Work Phone: Comment on above: PATIENT WAS FASTINGP ERFORMED BY: [facility]6370 [facility] [id number] CBC W/AUTO DIFF WBC (77179)O rdered By: Main Entree Cook And Cashier on 05-16-2015 Basophils (Bld) [#/Vol] 0.0 {x10E3/uL} Normal 0.0-0.2 [facility] Work Phone: Comment on above: PATIENT WAS FASTINGP ERFORMED BY: [address] [id number] Information: [id number] Basophils (Bld) [#/Vol] 0.0 10*3/uL Normal 0.0-0.2 [facility]; [facility] Work Phone: Comment on above: PATIENT WAS FASTINGP ERFORMED BY: [address] [id number] Information: 327005,[id number] Basophils/100 WBC (Bld) 1 % Normal [facility] Work Phone: Comment on above: PATIENT WAS FASTINGP ERFORMED BY: [address] [id number] Information: [id number],[id number] Eosinophils (Bld) [#/Vol] 0.1 {x10E3/uL} Normal 0.0-0.4 [facility] Work Phone: Comment on above: PATIENT WAS FASTINGP ERFORMED BY: [address] [id number] Information: [id number],[id number] Eosinophils (Bld) [#/Vol] 0.1 10*3/uL Normal 0.0-0.4 [facility]; [facility] Work Phone: Comment on above: PATIENT WAS FASTINGP ERFORMED BY: [address] [id number] Information: 051658,[id number] Eosinophils/100 WBC (Bld) 3 % Normal [facility] Work Phone: Comment on above: PATIENT WAS FASTINGP ERFORMED BY: [place] 8081670 [facility] [id number] Information: 052333,[id number] Erythrocyte distribution width (RBC) [Ratio] 13.2 % Normal 12.3-15.4 [facility] Work Phone: Comment on above: PATIENT WAS FASTINGP ERFORMED BY: [address] [id number] Information: 294892,[id number] Hematocrit (Bld) [Volume fraction] 42.3 % Normal 34.0-46.6 [facility] Work Phone: Comment on above: PATIENT WAS FASTINGP ERFORMED BY: [address] [id number] Information: [id number],[id number] Hemoglobin (Bld) [Mass/Vol] 14.4 g/dL Normal 11.1-15.9 [facility] Work Phone: Comment on above: PATIENT WAS FASTINGP ERFORMED BY: [address] [id number] Information: [id number] Immature granulocytes (Bld) [#/Vol] 0.0 {x10E3/uL} Normal 0.0-0.1 [facility] Work Phone: Comment on above: PATIENT WAS FASTINGP ERFORMED BY: [address] [id number] Information: [id number],[id number] Immature granulocytes (Bld) [#/Vol] 0.0 10*3/uL Normal 0.0-0.1 [facility]; [facility] Work Phone: Comment on above: PATIENT WAS FASTINGP ERFORMED BY: [address] [id number] Information: [id number] Immature granulocytes/100 WBC (Bld) 0 % Normal [facility] Work Phone: Comment on above: PATIENT WAS FASTINGP ERFORMED BY: [facility]6370 [facility] [id number] Information: 076364,[id number] Lymphocytes (Bld) [#/Vol] 1.9 {x10E3/uL} Normal 0.7-3.1 [facility] Work Phone: Comment on above: PATIENT WAS FASTINGP ERFORMED BY: [address] [id number] Information: [id number],[id number] Lymphocytes (Bld) [#/Vol] 1.9 10*3/uL Normal 0.7-3.1 [facility]; [facility] Work Phone: Comment on above: PATIENT WAS FASTINGP ERFORMED BY: [address] [id number] Information: [id number] Lymphocytes/100 WBC (Bld) 43 % Normal [facility] Work Phone: Comment on above: PATIENT WAS FASTINGP ERFORMED BY: [address] [id number] Information: [id number],[id number] MCH (RBC) [Entitic mass] 31.9 pg Normal 26.6-33.0 [facility] Internal Medicine Work Phone: Comment on above: PATIENT WAS FASTINGP ERFORMED BY: [address] [id number] Information: [id number],[id number] MCHC (RBC) [Mass/Vol] 34.0 g/dL Normal 31.5-35.7 [facility] Internal Medicine Work Phone: Comment on above: PATIENT WAS FASTINGP ERFORMED BY: [facility]6370 [facility] [id number] Information: [id number],[id number] MCV (RBC) [Entitic vol] 94 fL Normal 79-97 [facility] Work Phone: Comment on above: PATIENT WAS FASTINGP ERFORMED BY: [facility] Eelcyd6695 [facility] [id number] Information: [id number] Monocytes (Bld) [#/Vol] 0.3 {x10E3/uL} Normal 0.1-0.9 [facility] Work Phone: Comment on above: PATIENT WAS FASTINGP ERFORMED BY: LabWesley Ville 2499570 [facility] [id number] Information: [id number],[id number] Monocytes (Bld) [#/Vol] 0.3 10*3/uL Normal 0.1-0.9 [facility]; [facility] Work Phone: Comment on above: PATIENT WAS FASTINGP ERFORMED BY: [facility] Tytiob4052 [facility] [id number] Information: 883602,[id number] Monocytes/100 WBC (Bld) 7 % Normal [facility] Work Phone: Comment on above: PATIENT WAS FASTINGP ERFORMED BY: [facility]6370 [facility] [id number] Information: [id number],[id number] Neutrophils (Bld) [#/Vol] 2.0 {x10E3/uL} Normal 1.4-7.0 [facility] Work Phone: Comment on above: PATIENT WAS FASTINGP ERFORMED BY: [facility]6370 [facility] [id number] Information: [id number],[id number] Neutrophils (Bld) [#/Vol] 2.0 10*3/uL Normal 1.4-7.0 [facility]; [facility] Work Phone: Comment on above: PATIENT WAS FASTINGP ERFORMED BY: [facility] Ivmuvh0170 [facility] [id number] Information: 591450,[id number] Neutrophils/100 WBC (Bld) 46 % Normal [facility] Work Phone: Comment on above: PATIENT WAS FASTINGP ERFORMED BY: HERI LabCoever FairbanksHuqnhc2619 Domingo RoadOvidioblin [place] [id number] Information: 957765,[id number] Platelets (Bld) [#/Vol] 254 {x10E3/uL} Normal 150-379 [facility] Work Phone: Comment on above: PATIENT WAS FASTINGP ERFORMED BY: HERI LabCo Eextkx4036 Domingo Roadblin [place] [id number] Information: 794951,[id number] Platelets (Bld) [#/Vol] 254 10*3/uL Normal 150-379 [facility] Internal Medicine; [facility] Internal Medicine Work Phone: Comment on above: PATIENT WAS FASTINGP ERFORMED BY: HERI Tatumever Lxmqjp6910 Domingo RoadFormerly Albem[facility]le Hospitalin [place] [id number] Information: [id number],[id number] RBC (Bld) [#/Vol] 4.52 {x10E6/uL} Normal 3.77-5.28 [facility] Work Phone: Comment on above: PATIENT WAS FASTINGP ERFORMED BY: HERI Tatumever Ednbzn[address] [facility] Centerin [place] [id number] Information: [id number] RBC (Bld) [#/Vol] 4.52 10*6/uL Normal 3.77-5.28 [facility] Internal Medicine; [facility] Work Phone: Comment on above: PATIENT WAS FASTINGP ERFORMED BY: HERI LabCo Tybraa[address] [facility] Centerin [place] [id number] Information: 710654,[id number] WBC (Bld) [#/Vol] 4.4 {x10E3/uL} Normal 3.4-10.8 [facility] Internal Medicine Work Phone: Comment on above: PATIENT WAS FASTINGP ERFORMED BY: HERI LabCo Jtrmwu6434 [address] RoadFormerly [facility] Hospitalin [place] [id number] Information: 378264,[id number] WBC (Bld) [#/Vol] 4.4 10*3/uL Normal 3.4-10.8 [facility] Internal Medicine; [facility] Work Phone: Comment on above: PATIENT WAS FASTINGP ERFORMED BY: HERI Quixhop6370 [facility] [id number] Information: [id number],[id number] LIPID PANEL (39616)Ordered B y: Main Entree Cook And Cashier on 05-16-2015 Cholesterol [Mass/Vol] 233 mg/dL Abnormal 100-199 [facility] Internal Medicine Work Phone: Comment on above: Effective May 22, 2015 the reference interval for Cholesterol, Total will be changing to: 0 - 19 years 100 - 169 >19 years 100 - 199 PATIENT WAS FASTINGP ERFORMED BY: HERI [employer]70 Smash BucketECU [facility] [id number] Cholesterol in HDL [Mass/Vol] 64 mg/dL Normal [facility] Work Phone: Comment on above: According to ATP-III Guidelines, HDL-C >59 mg/dL is considered anegative risk factor for CHD. PATIENT WAS FASTINGP ERFORMED BY: HERI Quixhop6370 Smash BucketEC[facility] [id number] Cholesterol in LDL [Mass/Vol] 132 mg/dL Abnormal 0-99 [facility] Work Phone: Comment on above: Effective May 22, 2015 the reference interval for LDL Cholesterol Calc will be changing to: 0 - 19 years 0 - 109 >19 years 0 - 99 PATIENT WAS FASTINGP ERFORMED BY: Minicabster[address] Geodesic dome HoustonECU Health Bert[facility] Hospital [id number] Cholesterol in LDL/Cholesterol in HDL [Mass ratio] 2.1 {ratio_units} Normal 0.0-3.2 [facility] Work Phone: Comment on above: LDL/HDL Ratio Men Wo men 1/2 Avg.Risk 1.0 1.5 Avg.Risk 3.6 3.2 2X Avg.Risk 6.2 5.0 3X Avg.Risk 8.0 6.1 PATIENT WAS FASTINGP ERFORMED BY: HERI [facility] Ajdnxk3416 Domingo RoadDublin [place] [id number] Cholesterol in VLDL [Mass/Vol] 37 mg/dL Normal 5-40 [facility] Work Phone: Comment on above: PATIENT WAS FASTINGP ERFORMED BY: HERI [facility] Dvctcx7813 Domingo RoadDublin [place] [id number] Triglyceride [Mass/Vol] 185 mg/dL Abnormal 0-149 [facility] Work Phone: Comment on above: Effective May 22, 2015 the reference interval for Triglycerides will be changing to: 0 - 9 years 0 - 74 10 - 19 years 0 - 89 >19 years 0 - 149 PATIENT WAS FASTINGP ERFORMED BY: HERI [facility] Uxdsdr6954 Domingo RoadDublin [place] [id number] METABOLIC PANEL, COMPREHENSI VE (08837)Ordered By: Main Entree Cook And Cashier on 05-16-2015 Albumin [Mass/Vol] 4.5 g/dL Normal 3.5-5.5 [facility] Internal Medicine Work Phone: Comment on above: PATIENT WAS FASTINGP ERFORMED BY: HREI [facility] Ieajec5958 Domingo RoadDublin [place] [id number] Albumin/Globulin [Mass ratio] 1.5 {ratio} Normal 1.1-2.5 [facility] Work Phone: Comment on above: PATIENT WAS FASTINGP ERFORMED BY: Lab[facility] Kpyked7759 Domingo RoadDublin [place] [id number] ALP [Catalytic activity/Vol] 51 [iU]/L Normal 39-117 [facility] Work Phone: Comment on above: PATIENT WAS FASTINGP ERFORMED BY: [facility] Kknmus8763 [address]ingo RoadDublin [place] [id number] ALP [Catalytic activity/Vol] 51 U/L Normal 39-117 [facility]; [facility] Work Phone: Comment on above: PATIENT WAS FASTINGP ERFORMED BY: [facility] Uolebh7117 [address]ingo RoadDublin [place] [id number] ALT [Catalytic activity/Vol] 14 [iU]/L Normal 0-32 [facility] Work Phone: Comment on above: PATIENT WAS FASTINGP ERFORMED BY: CB [facility] Inrbts4070 [address]ingo RoadDublin [place] [id number] ALT [Catalytic activity/Vol] 14 U/L Normal 0-32 [facility]; [facility] Work Phone: Comment on above: PATIENT WAS FASTINGP ERFORMED BY: CB [facility] Llgzkm9828 Domingo RoadDublin [place] [id number] AST [Catalytic activity/Vol] 18 [iU]/L Normal 0-40 [facility] Work Phone: Comment on above: PATIENT WAS FASTINGP ERFORMED BY: CB [facility] Sdennt2349 Domingo RoadDublin [place] [id number] AST [Catalytic activity/Vol] 18 U/L Normal 0-40 [facility]; [facility] Work Phone: Comment on above: PATIENT WAS FASTINGP ERFORMED BY: [facility] Tfnqbc6660 Domingo RoadDublin [place] [id number] Bilirubin [Mass/Vol] 0.5 mg/dL Normal 0.0-1.2 [facility] Internal Medicine Work Phone: Comment on above: PATIENT WAS FASTINGP ERFORMED BY: [facility] Encfoy5720 [address] RoadDublin [place] [id number] Calcium [Mass/Vol] 9.5 mg/dL Normal 8.7-10.2 [facility] Internal Medicine Work Phone: Comment on above: PATIENT WAS FASTINGP ERFORMED BY: [facility] Tvyeef1273 Domingo RoadDublin [place] [id number] Chloride [Moles/Vol] 103 mmol/L Normal 97-108 Comp [facility] hospitalensive Internal Medicine Work Phone: Comment on above: PATIENT WAS FASTINGP ERFORMED BY: CB [facility] Aenphr7835 [address]ingo RoadDublin [place] [id number] CO2 [Moles/Vol] 21 mmol/L Normal 18-29 Comprehen [facility] Internal Medicine Work Phone: Comment on above: PATIENT WAS FASTINGP ERFORMED BY: HERI [facility] Ltiidf6772 Domingo RoadDublin [place] [id number] Creatinine [Mass/Vol] 0.83 mg/dL Normal 0.57-1.00 [facility] Internal Medicine Work Phone: Comment on above: PATIENT WAS FASTINGP ERFORMED BY: CB [facility] Anfbsg7983 Domingo RoadDublin [place] [id number] GFR/1.73 sq M predicted among blacks CKD-EPI (S/P/Bld) [Vol rate/Area] 98 mL/min/1.73 Normal [facility] Internal Medicine Work Phone: Comment on above: PATIENT WAS FASTINGP ERFORMED BY: HERI [facility] Xfjeky8869 Domingo RoadDublin [place] [id number] GFR/1.73 sq M predicted among non-blacks CKD-EPI (S/P/Bld) [Vol rate/Area] 85 mL/min/1.73 Normal [facility] Internal Medicine Work Phone: Comment on above: PATIENT WAS FASTINGP ERFORMED BY: HERI [facility] Nhqngs6922 [address] RoadDublin [place] [id number] Globulin (S) [Mass/Vol] 3.1 g/dL Normal 1.5-4.5 [facility] Internal Medicine Work Phone: Comment on above: PATIENT WAS FASTINGP ERFORMED BY: [facility] Krvoxk4883 Domingo RoadDublin [place] [id number] Glucose [Mass/Vol] 95 mg/dL Normal 65-99 [facility] Internal Medicine Work Phone: Comment on above: PATIENT WAS FASTINGP ERFORMED BY: CB [facility] Edusyt2513 [address] RoadDublin [place] [id number] Potassium [Moles/Vol] 3.9 mmol/L Normal 3.5-5.2 [facility] Internal Medicine Work Phone: Comment on above: PATIENT WAS FASTINGP ERFORMED BY: CB [facility] Gzbdss1353 Domingo RoadDublin [place] [id number] Protein [Mass/Vol] 7.6 g/dL Normal 6.0-8.5 [facility] Internal Medicine Work Phone: Comment on above: PATIENT WAS FASTINGP ERFORMED BY: HERI Lab[facility] Plbdtj4884 [address] [facility] [id number] Sodium [Moles/Vol] 140 mmol/L Normal 134-144 [facility] Internal Medicine Work Phone: Comment on above: PATIENT WAS FASTINGP ERFORMED BY: HERI LabCo Dnyvwl1341 [facility] [id number] Urea nitrogen [Mass/Vol] 18 mg/dL Normal 6-24 [facility] Work Phone: Comment on above: PATIENT WAS FASTINGP ERFORMED BY: HERI LabCoGreystone Park Psychiatric HospitalBytfgb4710 [facility] [id number] Urea nitrogen/Creatinine [Mass ratio] 22 mg/mg Normal 9-23 [facility] Work Phone: Comment on above: PATIENT WAS FASTINGP ERFORMED BY: HERI LabMcl[facility] Michigan6370 [facility] [id number] TSH ([id number])Ordered By: [employer], [employer]e m Meteorology Instructor on 05-16-2015 TSH Qn 0.776 {uIU/mL} Normal 0.450-4.500 [facility] Internal Medicine Work Phone: Comment on above: PATIENT WAS FASTINGP ERFORMED BY: HERI LabMclaren Northern Michigan6370 [facility] [id number] URINE LANDRY CULTURE-LUZMA COL C OUNT (69010)Ordered By: Main Entree Cook And Cashier on 12-07-2013 Bacteria identified Cx Nom (U) MUG Normal [facility] Work Phone: Comment on above: Mixed urogenital karo ra400 Colonies/mL PATIENT NOT FASTINGP ERFORMED BY: HERI LabCo Znzica8863 [facility] [id number] Information: SRC:UR [id number] Bacteria identified Cx Nom (U) Final report Normal [facility] Work Phone: Comment on above: PATIENT NOT FASTINGP ERFORMED BY: HERI Lab[facility] Wolale5792 [facility] [id number] Information: SRC:UR [id number] Urinalysis, Office (63677)Or dered By: Georgia Lilly on 12-07-2013 Bilirubin [...] Medicine Work Phone: CBC WITH MANUAL DIFF (24906) Ordered By: Main Entree Cook And Cashier on 10-08-2013 Basophils (Bld) [#/Vol] 0.0 {x10E3/uL} Normal 0.0-0.2 [facility] Work Phone: Comment on above: PATIENT WAS FASTINGP ERFORMED BY: [address] [id number] Information: [id number],[id number] Basophils (Bld) [#/Vol] 0.0 10*3/uL Normal 0.0-0.2 [facility]; [facility] Work Phone: Comment on above: PATIENT WAS FASTINGP ERFORMED BY: [address] [id number] Information: 233182,[id number] Basophils/100 WBC (Bld) 1 % Normal 0-3 [facility] Work Phone: Comment on above: PATIENT WAS FASTINGP ERFORMED BY: [address] [id number] Information: 520781,Y97285 Eosinophils (Bld) [#/Vol] 0.2 {x10E3/uL} Normal 0.0-0.4 [facility] Work Phone: Comment on above: PATIENT WAS FASTINGP ERFORMED BY: [address] [id number] Information: 505631,[id number] Eosinophils (Bld) [#/Vol] 0.2 10*3/uL Normal 0.0-0.4 [facility]; [facility] Work Phone: Comment on above: PATIENT WAS FASTINGP ERFORMED BY: [address] [id number] Information: 301187,[id number] Eosinophils/100 WBC (Bld) 5 % Normal 0-5 [facility] Work Phone: Comment on above: PATIENT WAS FASTINGP ERFORMED BY: [address] Streetblin [place] [id number] Information: 273911,[id number] Erythrocyte distribution width (RBC) [Ratio] 13.3 % Normal 12.3-15.4 [facility] Work Phone: Comment on above: PATIENT WAS FASTINGP ERFORMED BY: [address] [id number] Information: 385186,[id number] Hematocrit (Bld) [Volume fraction] 38.5 % Normal 34.0-46.6 [facility] Work Phone: Comment on above: PATIENT WAS FASTINGP ERFORMED BY: [address] [id number] Information: [id number],V09694 Hemoglobin (Bld) [Mass/Vol] 13.4 g/dL Normal 11.1-15.9 [facility] Work Phone: Comment on above: PATIENT WAS FASTINGP ERFORMED BY: [address] [id number] Information: 606842,[id number] Immature granulocytes (Bld) [#/Vol] 0.0 {x10E3/uL} Normal 0.0-0.1 [facility] Work Phone: Comment on above: PATIENT WAS FASTINGP ERFORMED BY: [place] 8081670 [facility] [id number] Information: [id number] Immature granulocytes (Bld) [#/Vol] 0.0 10*3/uL Normal 0.0-0.1 [facility]; [facility] Work Phone: Comment on above: PATIENT WAS FASTINGP ERFORMED BY: [place] 8081670 [facility] [id number] Information: 890599,[id number] Immature granulocytes/100 WBC (Bld) 0 % Normal 0-2 [facility] Work Phone: Comment on above: PATIENT WAS FASTINGP ERFORMED BY: [facility] Hospitallin6370 [facility] [id number] Information: [id number] Lymphocytes (Bld) [#/Vol] 1.9 {x10E3/uL} Normal 0.7-3.1 [facility] Work Phone: Comment on above: PATIENT WAS FASTINGP ERFORMED BY: HERI [address] [id number] Information: 435604,[id number] Lymphocytes (Bld) [#/Vol] 1.9 10*3/uL Normal 0.7-3.1 [facility]; [facility] Work Phone: Comment on above: PATIENT WAS FASTINGP ERFORMED BY: HERI Christiana[address] [id number] Information: 904839,D62037 Lymphocytes/100 WBC (Bld) 41 % Normal 14-46 [facility] Work Phone: Comment on above: PATIENT WAS FASTINGP ERFORMED BY: HERI [address] [id number] Information: 506261,[id number] MCH (RBC) [Entitic mass] 31.6 pg Normal 26.6-33.0 [facility] Internal Medicine Work Phone: Comment on above: PATIENT WAS FASTINGP ERFORMED BY: HERI [address] [id number] Information: 053999,[id number] MCHC (RBC) [Mass/Vol] 34.8 g/dL Normal 31.5-35.7 [facility] Internal Medicine Work Phone: Comment on above: PATIENT WAS FASTINGP ERFORMED BY: HERI [address] [id number] Information: 247486,[id number] MCV (RBC) [Entitic vol] 91 fL Normal 79-97 [facility] Work Phone: Comment on above: PATIENT WAS FASTINGP ERFORMED BY: CB [facility] Centerlin6370 [facility] [id number] Information: [id number],[id number] Monocytes (Bld) [#/Vol] 0.4 {x10E3/uL} Normal 0.1-0.9 [facility] Work Phone: Comment on above: PATIENT WAS FASTINGP ERFORMED BY: [facility] Fognjz8[address] [id number] Information: [id number],[id number] Monocytes (Bld) [#/Vol] 0.4 10*3/uL Normal 0.1-0.9 [facility]; [facility] Work Phone: Comment on above: PATIENT WAS FASTINGP ERFORMED BY: HERI Winn Csicmi345[address] [id number] Information: 209963,[id number] Monocytes/100 WBC (Bld) 8 % Normal 4-12 [facility] Work Phone: Comment on above: PATIENT WAS FASTINGP ERFORMED BY: [facility] Cjrqho7[address] [id number] Information: 787734,[id number] Neutrophils (Bld) [#/Vol] 2.1 {x10E3/uL} Normal 1.4-7.0 [facility] Work Phone: Comment on above: PATIENT WAS FASTINGP ERFORMED BY: [address] [id number] Information: 841251,[id number] Neutrophils (Bld) [#/Vol] 2.1 10*3/uL Normal 1.4-7.0 [facility]; [facility] Work Phone: Comment on above: PATIENT WAS FASTINGP ERFORMED BY: HERI Winn Docnav6170 [facility] [id number] Information: 159809,[id number] Neutrophils/100 WBC (Bld) 45 % Normal 40-74 [facility] Work Phone: Comment on above: PATIENT WAS FASTINGP ERFORMED BY: HERI ChristianaCoever FairbanksUpaypr6646 [facility] [id number] Information: [id number] Platelets (Bld) [#/Vol] 234 {x10E3/uL} Normal 155-379 [facility] Work Phone: Comment on above: PATIENT WAS FASTINGP ERFORMED BY: HERI ChristianaCo Xswxty0456 [facility] [id number] Information: [id number] Platelets (Bld) [#/Vol] 234 10*3/uL Normal 155-379 [facility]; [facility] Work Phone: Comment on above: PATIENT WAS FASTINGP ERFORMED BY: HERI Dino [place]6370 [facility] [id number] Information: 737959,[id number] RBC (Bld) [#/Vol] 4.24 {x10E6/uL} Normal 3.77-5.28 [facility] Work Phone: Comment on above: PATIENT WAS FASTINGP ERFORMED BY: HERI [facility]aR[facility] Kvdnsz8185 [facility] [id number] Information: 862615,[id number] RBC (Bld) [#/Vol] 4.24 10*6/uL Normal 3.77-5.28 [facility] Internal Medicine; [facility] Work Phone: Comment on above: PATIENT WAS FASTINGP ERFORMED BY: HERI LabCo Wmmhbh0747 [facility] [id number] Information: 640734,[id number] WBC (Bld) [#/Vol] 4.7 {x10E3/uL} Normal 3.4-10.8 [facility] Internal Medicine Work Phone: Comment on above: PATIENT WAS FASTINGP ERFORMED BY: HERI LabCo Ltbtwu5507 [facility] [id number] Information: [id number] WBC (Bld) [#/Vol] 4.7 10*3/uL Normal 3.4-10.8 [facility] Internal Medicine; [facility] Work Phone: Comment on above: PATIENT WAS FASTINGP ERFORMED BY: HERI Fairbanks[address] RoadDublin [place] [id number] Information: [id number] LIPID PANEL (20004)Ordered B y: Main Entree Cook And Cashier on 10-08-2013 Cholesterol [Mass/Vol] 204 mg/dL Abnormal 100-199 [facility] rust Internal Medicine Work Phone: Comment on above: PATIENT WAS FASTINGP ERFORMED BY: HERI Teresalin[address]Formerly [facility] Hospitalin [place] [id number] Cholesterol in HDL [Mass/Vol] 54 mg/dL Normal [facility] Work Phone: Comment on above: According to ATP-III Guidelines, HDL-C >59 mg/dL is considered anegative risk factor for CHD. PATIENT WAS FASTINGP ERFORMED BY: HERI Teresalin[address] [facility] [place] [id number] Cholesterol in LDL [Mass/Vol] 131 mg/dL Abnormal 0-99 [facility] Work Phone: Comment on above: PATIENT WAS FASTINGP ERFORMED BY: HERI Fairbanks6370 [facility] [place] [id number] Cholesterol in LDL/Cholesterol in HDL [Mass ratio] 2.4 {ratio_units} Normal 0.0-3.2 [facility] Work Phone: Comment on above: PATIENT WAS FASTINGP ERFORMED BY: HERI Sun Xkkody[address] [facility]in [place] [id number] Cholesterol in VLDL [Mass/Vol] 19 mg/dL Normal 5-40 [facility] Work Phone: Comment on above: PATIENT WAS FASTINGP ERFORMED BY: HERI Teresalin[address] [facility] [place] [id number] Triglyceride [Mass/Vol] 94 mg/dL Normal 0-149 [facility] Work Phone: Comment on above: PATIENT WAS FASTINGP ERFORMED BY: HERI Sun Krdqge1347 [address] RoadDublin [place] [id number] METABOLIC PANEL, COMPREHENSI VE (77217)Ordered By: Main Entree Cook And Cashier on 10-08-2013 Albumin [Mass/Vol] 4.3 g/dL Normal 3.5-5.5 [facility] Internal Medicine Work Phone: Comment on above: PATIENT WAS FASTINGP ERFORMED BY: HERI LabElena TeresaAriuop28[address]Dublin [place] [id number] Albumin/Globulin [Mass ratio] 1.7 {ratio} Normal 1.1-2.5 [facility] Work Phone: Comment on above: PATIENT WAS FASTINGP ERFORMED BY: HERI LabElena TeresaFztjxc1656 [address] RoadDublin [place] [id number] ALP [Catalytic activity/Vol] 41 [iU]/L Normal 39-117 [facility] Work Phone: Comment on above: PATIENT WAS FASTINGP ERFORMED BY: HERI Teresalin[address]Dublin [place] [id number] ALP [Catalytic activity/Vol] 41 U/L Normal 39-117 [facility]; [facility] Work Phone: Comment on above: PATIENT WAS FASTINGP ERFORMED BY: HERI Teresalin[address]Dublin [place] [id number] ALT [Catalytic activity/Vol] 13 [iU]/L Normal 0-32 [facility] Work Phone: Comment on above: PATIENT WAS FASTINGP ERFORMED BY: HERI [facility] Hrzsfp8[address] RoadDublin [place] [id number] ALT [Catalytic activity/Vol] 13 U/L Normal 0-32 [facility]; [facility] Work Phone: Comment on above: PATIENT WAS FASTINGP ERFORMED BY: HERI LabElena TeresaSgtpgn5[address] RoadDublin [place] [id number] AST [Catalytic activity/Vol] 14 [iU]/L Normal 0-40 [facility] Work Phone: Comment on above: PATIENT WAS FASTINGP ERFORMED BY: HERI LabElena TeresaGgmwek8880 [address] RoadDublin [place] [id number] AST [Catalytic activity/Vol] 14 U/L Normal 0-40 [facility]; [facility] Work Phone: Comment on above: PATIENT WAS FASTINGP ERFORMED BY: HERI LabCo Hjpfpm5867 [address] RoadDublin [place] [id number] Bilirubin [Mass/Vol] 0.4 mg/dL Normal 0.0-1.2 [facility] Work Phone: Comment on above: PATIENT WAS FASTINGP ERFORMED BY: HERI LabCo Pqpmiu4008 [address] RoadDublin [place] [id number] Calcium [Mass/Vol] 9.5 mg/dL Normal 8.7-10.2 [facility] Internal Medicine Work Phone: Comment on above: PATIENT WAS FASTINGP ERFORMED BY: HERI [facility] Kxkcuc4[address]Dublin [place] [id number] Chloride [Moles/Vol] 103 mmol/L Normal 97-108 [facility] Work Phone: Comment on above: PATIENT WAS FASTINGP ERFORMED BY: HERI [facility] Tbwwaa13[address] RoadDublin [place] [id number] CO2 [Moles/Vol] 23 mmol/L Normal 19-28 [facility] Internal Medicine Work Phone: Comment on above: PATIENT WAS FASTINGP ERFORMED BY: HERI LabR[facility] Qdjkyf9979 [address] RoadDublin [place] [id number] Creatinine [Mass/Vol] 0.85 mg/dL Normal 0.57-1.00 [facility] Internal Medicine Work Phone: Comment on above: PATIENT WAS FASTINGP ERFORMED BY: HERI LabCo Zoceds27[address]Dublin [place] [id number] GFR/1.73 sq M predicted among blacks CKD-EPI (S/P/Bld) [Vol rate/Area] 97 mL/min/1.73 Normal [facility] Internal Medicine Work Phone: Comment on above: PATIENT WAS FASTINGP ERFORMED BY: HERI Winn Htmlfx[address] [facility]in [place] [id number] GFR/1.73 sq M predicted among non-blacks CKD-EPI (S/P/Bld) [Vol rate/Area] 84 mL/min/1.73 Normal [facility] Internal Medicine Work Phone: Comment on above: PATIENT WAS FASTINGP ERFORMED BY: HERI Winn Zmvmft6187 [facility] [id number] Globulin (S) [Mass/Vol] 2.6 g/dL Normal 1.5-4.5 [facility] Internal Medicine Work Phone: Comment on above: PATIENT WAS FASTINGP ERFORMED BY: HERI Teresalin6370 [facility] [id number] Glucose [Mass/Vol] 80 mg/dL Normal 65-99 [facility] Internal Medicine Work Phone: Comment on above: PATIENT WAS FASTINGP ERFORMED BY: HERI Teresalin6370 [facility] [id number] Potassium [Moles/Vol] 4.1 mmol/L Normal 3.5-5.2 [facility] Internal Medicine Work Phone: Comment on above: PATIENT WAS FASTINGP ERFORMED BY: HERI Teresalin6370 [facility] [id number] Protein [Mass/Vol] 6.9 g/dL Normal 6.0-8.5 [facility] Internal Medicine Work Phone: Comment on above: PATIENT WAS FASTINGP ERFORMED BY: HERI Winn Dflfvw8973 [facility] [id number] Sodium [Moles/Vol] 140 mmol/L Normal 134-144 [facility] Internal Medicine Work Phone: Comment on above: PATIENT WAS FASTINGP ERFORMED BY: HERI Winn Nlylai3965 [facility] [id number] Urea nitrogen [Mass/Vol] 14 mg/dL Normal 6-24 [facility] Internal Medicine Work Phone: Comment on above: PATIENT WAS FASTINGP ERFORMED BY: HERI Teresalin[address]Dublin [place] [id number] Urea nitrogen/Creatinine [Mass ratio] 16 mg/mg Normal 9-23 [facility] Work Phone: Comment on above: PATIENT WAS FASTINGP ERFORMED BY: HERI Dino Teresalin[address]Dublin [place] [id number] MICROALBUMINOrdered By: Syst em Meteorology Instructor on 10-08-2013 Albumin DL <= 20 mg/L (U) [Mass/Vol] 3.2 ug/mL Normal 0.0-17.0 [facility] Work Phone: Comment on above: PATIENT WAS FASTINGP ERFORMED BY: HERI LabManas Opqyix33[address] RoadDublin [place] [id number] Albumin/Creatinine (U) [Mass ratio] 2.3 {mg/g_creat} Normal 0.0-30.0 [facility] Work Phone: Comment on above: PATIENT WAS FASTINGP ERFORMED BY: HERI ChristianaR[facility] Center Mtdxlo4204 [address] RoadDublin [place] [id number] Creatinine (U) [Mass/Vol] 137.4 mg/dL Normal 15.0-278.0 [facility] Work Phone: Comment on above: PATIENT WAS FASTINGP ERFORMED BY: HERI Tatum Gkuoyr7469 [address] RoadDublin [place] [id number] URINALYSIS, W/ MICRO (25471) Ordered By: Main Entree Cook And Cashier on 10-08-2013 Appearance (U) Clear Normal Comprehens gian Internal Medicine Work Phone: Comment on above: PATIENT WAS FASTINGP ERFORMED BY: HERI LabR[facility] Rpyejm4489 [address] RoadDublin [place] [id number] Bilirubin Ql (U) Negative Normal Comprehe nsive Internal Medicine Work Phone: Comment on above: PATIENT WAS FASTINGP ERFORMED BY: HERI LabCo Axegrl9[address] RoadDublin [place] [id number] Bilirubin Ql (U) Negative Normal Comprehe nsive Internal Medicine; [facility] Work Phone: Comment on above: PATIENT WAS FASTINGP ERFORMED BY: HERI Fairbanks[address]Dublin [place] [id number] Color (U) Yellow Normal [facility] Work Phone: Comment on above: PATIENT WAS FASTINGP ERFORMED BY: HERI Fairbanks[address]Dublin [place] [id number] Glucose Ql (U) Negative Normal Comprehens gian Internal Medicine Work Phone: Comment on above: PATIENT WAS FASTINGP ERFORMED BY: HERI Teresalin[address]Dublin [place] [id number] Glucose Ql (U) Negative Normal Comprehens gian Internal Medicine; [facility] Work Phone: Comment on above: PATIENT WAS FASTINGP ERFORMED BY: HERI Fairbanks[address]Dublin [place] [id number] Hemoglobin Ql (U) Negative Normal Compreh ensive Internal Medicine Work Phone: Comment on above: PATIENT WAS FASTINGP ERFORMED BY: HERI Fairbanks[address]Dublin [place] [id number] Hemoglobin Ql (U) Negative Normal Compreh ensive Internal Medicine; [facility] Work Phone: Comment on above: PATIENT WAS FASTINGP ERFORMED BY: HERI Fairbanks[address] [place] [id number] Ketones Ql (U) Negative Normal Comprehens gian Internal Medicine Work Phone: Comment on above: PATIENT WAS FASTINGP ERFORMED BY: HERI Teresalin[address]Dublin [place] [id number] Ketones Ql (U) Negative Normal Comprehens gian Internal Medicine; [facility] Work Phone: Comment on above: PATIENT WAS FASTINGP ERFORMED BY: HERI Teresalin[address]Dublin [place] [id number] Leukocyte esterase Test strip Ql (U) Negative Normal [facility] Work Phone: Comment on above: PATIENT WAS FASTINGP ERFORMED BY: HERI Teresalin[address]Dublin [place] [id number] Leukocyte esterase Test strip Ql (U) Negative Normal [facility]; [facility] Work Phone: Comment on above: PATIENT WAS FASTINGP ERFORMED BY: HERI Teresalin[address] [facility] [id number] Microscopic observation LM Nom (Urine sed) MICRON Normal [facility] Work Phone: Comment on above: Microscopic follows if indicated. PATIENT WAS FASTINGP ERFORMED BY: HERI Teresalin6370 [facility] [id number] Microscopic observation LM Nom (Urine sed) See below: Normal [facility] Work Phone: Comment on above: PATIENT WAS FASTINGP ERFORMED BY: HERI Teresalin6370 [facility] [id number] Nitrite Ql (U) Negative Normal Comprehens gian Internal Medicine Work Phone: Comment on above: PATIENT WAS FASTINGP ERFORMED BY: HERI Teresalin6370 [facility] [id number] Nitrite Ql (U) Negative Normal Comprehens gian Internal Medicine; [facility] Work Phone: Comment on above: PATIENT WAS FASTINGP ERFORMED BY: HERI Teresalin6370 [facility] [id number] pH (U) 6.0 [pH] Normal 5.0-7.5 [facility] Work Phone: Comment on above: PATIENT WAS FASTINGP ERFORMED BY: HERI Teresalin6370 [facility] [id number] Protein Ql (U) Negative Normal Comprehens gian Internal Medicine Work Phone: Comment on above: PATIENT WAS FASTINGP ERFORMED BY: HERI Teresalin[address] [facility] [id number] Protein Ql (U) Negative Normal Comprehens gian Internal Medicine; [facility] Work Phone: Comment on above: PATIENT WAS FASTINGP ERFORMED BY: HERI Teresalin6370 [facility] [id number] Specific gravity (U) [Rel density] 1.018 1 Normal 1.005-1.030 [facility] Work Phone: Comment on above: PATIENT WAS FASTINGP ERFORMED BY: HERI [facility]6370 [facility] [id number] Urobilinogen (U) [Mass/Vol] 0.2 mg/dL Normal 0.0-1.9 [facility]; [facility] Work Phone: Comment on above: PATIENT WAS FASTINGP ERFORMED BY: HERI [facility]6370 [facility] [id number] Urobilinogen Test strip (U) [Mass/Vol] 0.2 mg/dL Normal 0.0-1.9 Comprehensi Internal Medicine Work Phone: Comment on above: PATIENT WAS FASTINGP ERFORMED BY: HERI VilledaRusk Rehabilitation Center Xcfign6386 [facility] [id number] URIC ACID BLOOD ([id number])Order ed By: Main Entree Cook And Cashier on 07-02-2013 Urate [Mass/Vol] 4.0 mg/dL Normal 2.5-7.1 Comprehe [facility] Internal Medicine Work Phone: Comment on above: Therapeutic target f or gout patients: <6.0 PATIENT NOT FASTINGP ERFORMED BY: HERI VilledaMclaren Northern Michigan6370 [facility] [id number] Information: [id number] CBC WITH MANUAL DIFF (43209) Ordered By: Main Entree Cook And Cashier on 10-08-2012 Basophils (Bld) [#/Vol] 0.0 {x10E3/uL} Normal 0.0-0.2 [facility] Work Phone: Comment on above: PATIENT NOT FASTINGP ERFORMED BY: HERI [facility]6370 [facility] [id number] Information: [id number] Basophils (Bld) [#/Vol] 0.0 10*3/uL Normal 0.0-0.2 [facility]; [facility] Work Phone: Comment on above: PATIENT NOT FASTINGP ERFORMED BY: HERI Teresalin6370 [facility] [id number] Information: 222253,[id number] Basophils/100 WBC (Bld) 1 % Normal 0-3 [facility] Work Phone: Comment on above: PATIENT NOT FASTINGP ERFORMED BY: HERI Teresalin6370 [facility] [id number] Information: [id number] Eosinophils (Bld) [#/Vol] 0.2 {x10E3/uL} Normal 0.0-0.4 [facility] Work Phone: Comment on above: PATIENT NOT FASTINGP ERFORMED BY: HERI Winn Vuaugs6123 [facility] [id number] Information: 771262,Z22522 Eosinophils (Bld) [#/Vol] 0.2 10*3/uL Normal 0.0-0.4 [facility]; [facility] Work Phone: Comment on above: PATIENT NOT FASTINGP ERFORMED BY: HERI Teresalin6370 [facility] [id number] Information: [id number],[id number] Eosinophils/100 WBC (Bld) 4 % Normal 0-7 [facility] Work Phone: Comment on above: PATIENT NOT FASTINGP ERFORMED BY: HERI Winn[address] [id number] Information: [id number] Erythrocyte distribution width (RBC) [Ratio] 13.0 % Normal 12.3-15.4 [facility] Work Phone: Comment on above: PATIENT NOT FASTINGP ERFORMED BY: HERI Winn Euspsd6710 [facility] [id number] Information: [id number] Hematocrit (Bld) [Volume fraction] 40.5 % Normal 34.0-46.6 [facility] Work Phone: Comment on above: PATIENT NOT FASTINGP ERFORMED BY: HERI Wnin Skqdsd3091 [facility] [id number] Information: [id number] Hemoglobin (Bld) [Mass/Vol] 13.6 g/dL Normal 11.1-15.9 [facility] Work Phone: Comment on above: PATIENT NOT FASTINGP ERFORMED BY: Christiana[address] [id number] Information: [id number] Immature granulocytes (Bld) [#/Vol] 0.0 {x10E3/uL} Normal 0.0-0.1 [facility] Work Phone: Comment on above: PATIENT NOT FASTINGP ERFORMED BY: HERI VilledaRusk Rehabilitation Center Cqrifq[address] [id number] Information: [id number] Immature granulocytes (Bld) [#/Vol] 0.0 10*3/uL Normal 0.0-0.1 [facility]; [facility] Work Phone: Comment on above: PATIENT NOT FASTINGP ERFORMED BY: HERI Winn Qvyczi9193 [facility] [id number] Information: [id number],[id number] Immature granulocytes/100 WBC (Bld) 0 % Normal 0-2 [facility] Work Phone: Comment on above: PATIENT NOT FASTINGP ERFORMED BY: [place] 8081670 [facility] [id number] Information: 125862,[id number] Lymphocytes (Bld) [#/Vol] 1.3 {x10E3/uL} Normal 0.7-4.5 [facility] Work Phone: Comment on above: PATIENT NOT FASTINGP ERFORMED BY: [facility]6370 [facility] [id number] Information: [id number] Lymphocytes (Bld) [#/Vol] 1.3 10*3/uL Normal 0.7-4.5 [facility]; [facility] Work Phone: Comment on above: PATIENT NOT FASTINGP ERFORMED BY: HERI Teresalin6370 [facility] [id number] Information: [id number] Lymphocytes/100 WBC (Bld) 26 % Normal 14-46 [facility] Internal Medicine Work Phone: Comment on above: PATIENT NOT FASTINGP ERFORMED BY: HERI Winn[address] [id number] Information: [id number] MCH (RBC) [Entitic mass] 30.8 pg Normal 26.6-33.0 [facility] Internal Medicine Work Phone: Comment on above: PATIENT NOT FASTINGP ERFORMED BY: HERI Villeda[address] [id number] Information: [id number] MCHC (RBC) [Mass/Vol] 33.6 g/dL Normal 31.5-35.7 [facility] Internal Medicine Work Phone: Comment on above: PATIENT NOT FASTINGP ERFORMED BY: HERI Winn[address] [id number] Information: [id number] MCV (RBC) [Entitic vol] 92 fL Normal 79-97 [facility] Internal Medicine Work Phone: Comment on above: PATIENT NOT FASTINGP ERFORMED BY: HERI Villeda[address] [id number] Information: [id number] Monocytes (Bld) [#/Vol] 0.3 {x10E3/uL} Normal 0.1-1.0 [facility] Internal Medicine Work Phone: Comment on above: PATIENT NOT FASTINGP ERFORMED BY: HERI [place] 1213770 [facility] [id number] Information: [id number] Monocytes (Bld) [#/Vol] 0.3 10*3/uL Normal 0.1-1.0 [facility]; [facility] Work Phone: Comment on above: PATIENT NOT FASTINGP ERFORMED BY: HERI Fairbanks63[address] [facility] [id number] Information: [id number] Monocytes/100 WBC (Bld) 7 % Normal 4-13 [facility] Work Phone: Comment on above: PATIENT NOT FASTINGP ERFORMED BY: HERI Fairbanks[address] [facility] [id number] Information: [id number] Neutrophils (Bld) [#/Vol] 3.2 {x10E3/uL} Normal 1.8-7.8 [facility] Work Phone: Comment on above: PATIENT NOT FASTINGP ERFORMED BY: HERI Teresalin6370 [facility] [id number] Information: 567148,[id number] Neutrophils (Bld) [#/Vol] 3.2 10*3/uL Normal 1.8-7.8 [facility]; [facility] Work Phone: Comment on above: PATIENT NOT FASTINGP ERFORMED BY: HERI Fairbanks6370 [facility] [id number] Information: [id number] Neutrophils/100 WBC (Bld) 62 % Normal 40-74 [facility] Work Phone: Comment on above: PATIENT NOT FASTINGP ERFORMED BY: HERI Teresalin6370 [facility] [id number] Information: [id number] Platelets (Bld) [#/Vol] 275 {x10E3/uL} Normal 140-415 [facility] Work Phone: Comment on above: PATIENT NOT FASTINGP ERFORMED BY: HERI Teresalin6370 [facility] [id number] Information: [id number] Platelets (Bld) [#/Vol] 275 10*3/uL Normal 140-415 [facility]; [facility] Work Phone: Comment on above: PATIENT NOT FASTINGP ERFORMED BY: HERI Fairbanks6370 [facility] [id number] Information: [id number] RBC (Bld) [#/Vol] 4.41 {x10E6/uL} Normal 3.77-5.28 [facility] Internal Medicine Work Phone: Comment on above: PATIENT NOT FASTINGP ERFORMED BY: HERI [facility] Yaqgel[address] [facility] [id number] Information: [id number] RBC (Bld) [#/Vol] 4.41 10*6/uL Normal 3.77-5.28 [facility] Internal Medicine; [facility] Work Phone: Comment on above: PATIENT NOT FASTINGP ERFORMED BY: HERI Fairbanks6370 [facility] [id number] Information: [id number] WBC (Bld) [#/Vol] 5.1 {x10E3/uL} Normal 4.0-10.5 [facility] Internal Medicine Work Phone: Comment on above: PATIENT NOT FASTINGP ERFORMED BY: HERI Fairbanks6370 [facility] [id number] Information: [id number] WBC (Bld) [#/Vol] 5.1 10*3/uL Normal 4.0-10.5 [facility] Internal Medicine; [facility] Work Phone: Comment on above: PATIENT NOT FASTINGP ERFORMED BY: HERI [facility] Fqmiyo9138 [facility] [id number] Information: [id number] METABOLIC PANEL, COMPREHENSI VE (33831)Ordered By: Main Entree Cook And Cashier on 10-08-2012 Albumin [Mass/Vol] 4.1 g/dL Normal 3.5-5.5 [facility] Internal Medicine Work Phone: Comment on above: PATIENT NOT FASTINGP ERFORMED BY: HERI [facility] Jerxug7550 [address]ingo RoadDublin [place] [id number] Albumin/Globulin [Mass ratio] 1.6 {ratio} Normal 1.1-2.5 [facility] Work Phone: Comment on above: PATIENT NOT FASTINGP ERFORMED BY: CB [facility] Gvgyfn3805 [address] RoadDublin [place] [id number] ALP [Catalytic activity/Vol] 38 [iU]/L Normal 25-150 [facility] Work Phone: Comment on above: PATIENT NOT FASTINGP ERFORMED BY: CB [facility] Rbtyse4386 [address] RoadDublin [place] [id number] ALP [Catalytic activity/Vol] 38 U/L Normal 25-150 [facility]; [facility] Work Phone: Comment on above: PATIENT NOT FASTINGP ERFORMED BY: CB [facility] Quijpw5897 [address] RoadDublin [place] [id number] ALT [Catalytic activity/Vol] 15 [iU]/L Normal 0-32 [facility] Work Phone: Comment on above: PATIENT NOT FASTINGP ERFORMED BY: CB [facility] Kxjtry2389 [address] RoadDublin [place] [id number] ALT [Catalytic activity/Vol] 15 U/L Normal 0-32 [facility]; [facility] Work Phone: Comment on above: PATIENT NOT FASTINGP ERFORMED BY: CB [facility] Rhovus1041 [address] RoadDublin [place] [id number] AST [Catalytic activity/Vol] 18 [iU]/L Normal 0-40 [facility] Work Phone: Comment on above: PATIENT NOT FASTINGP ERFORMED BY: CB [facility] Hsflil7628 [address] RoadDublin [place] [id number] AST [Catalytic activity/Vol] 18 U/L Normal 0-40 [facility]; [facility] Work Phone: Comment on above: PATIENT NOT FASTINGP ERFORMED BY: CB [facility] Pxmgdm4860 [address] RoadDublin [place] [id number] Bilirubin [Mass/Vol] 0.3 mg/dL Normal 0.0-1.2 Comp rehensive Internal Medicine Work Phone: Comment on above: PATIENT NOT FASTINGP ERFORMED BY: CB [facility] Ggmlvq4811 [address] RoadDublin [place] [id number] Calcium [Mass/Vol] 8.9 mg/dL Normal 8.7-10.2 [facility] Internal Medicine Work Phone: Comment on above: PATIENT NOT FASTINGP ERFORMED BY: CB [facility] Lpawgh3705 [address] RoadDublin [place] [id number] Chloride [Moles/Vol] 104 mmol/L Normal 97-108 Comp [facility] hospitalensive [facility] Work Phone: Comment on above: PATIENT NOT FASTINGP ERFORMED BY: HERI [facility] Rpficm7685 [address] RoadDublin [place] [id number] CO2 [Moles/Vol] 22 mmol/L Normal 20-32 Comprehen [facility] Internal Medicine Work Phone: Comment on above: PATIENT NOT FASTINGP ERFORMED BY: CB [facility] Xlegzk6522 [address]ingo RoadDublin [place] [id number] Creatinine [Mass/Vol] 0.88 mg/dL Normal 0.57-1.[address] [facility] Work Phone: Comment on above: PATIENT NOT FASTINGP ERFORMED BY: [facility] Pdrrah6153 [address] RoadDublin [place] [id number] GFR/1.73 sq M predicted among blacks CKD-EPI (S/P/Bld) [Vol rate/Area] 94 mL/min/1.73 Normal [facility] Work Phone: Comment on above: PATIENT NOT FASTINGP ERFORMED BY: CB [facility] Ojbjpt4867 [address] RoadDublin [place] [id number] GFR/1.73 sq M predicted among non-blacks CKD-EPI (S/P/Bld) [Vol rate/Area] 81 mL/min/1.73 Normal [facility] Work Phone: Comment on above: PATIENT NOT FASTINGP ERFORMED BY: CB [facility] Tgceai0957 [address] RoadDublin [place] [id number] Globulin (S) [Mass/Vol] 2.6 g/dL Normal 1.5-4.5 [facility] Internal Medicine Work Phone: Comment on above: PATIENT NOT FASTINGP ERFORMED BY: HERI [facility] Hqpkqw8386 [address] RoadDublin [place] [id number] Glucose [Mass/Vol] 97 mg/dL Normal 65-99 [facility] Internal Medicine Work Phone: Comment on above: PATIENT NOT FASTINGP ERFORMED BY: HERI [facility] Czifsk7091 [address] RoadDublin [place] [id number] Potassium [Moles/Vol] 4.1 mmol/L Normal 3.5-5.2 [facility] Internal Medicine Work Phone: Comment on above: PATIENT NOT FASTINGP ERFORMED BY: HERI [facility] Uijjzw5628 [address] RoadDublin [place] [id number] Protein [Mass/Vol] 6.7 g/dL Normal 6.0-8.5 [facility] Internal Medicine Work Phone: Comment on above: PATIENT NOT FASTINGP ERFORMED BY: HERI [facility] Uxcnom3419 [address] RoadDublin [place] [id number] Sodium [Moles/Vol] 139 mmol/L Normal 134-144 [facility] Internal Medicine Work Phone: Comment on above: PATIENT NOT FASTINGP ERFORMED BY: HERI [facility] Xtgymw9283 [address] RoadDublin [place] [id number] Urea nitrogen [Mass/Vol] 12 mg/dL Normal 6-24 [facility] Internal Medicine Work Phone: Comment on above: PATIENT NOT FASTINGP ERFORMED BY: HERI [facility] Hlnprm2795 [address] RoadDublin [place] [id number] Urea nitrogen/Creatinine [Mass ratio] 14 mg/mg Normal 9-23 [facility] Internal Medicine Work Phone: Comment on above: PATIENT NOT FASTINGP ERFORMED BY: HERI [facility] Bywjhz2017 [address]Dublin [place] [id number] Sed Rate Erythrocyte (85164) Ordered By: Main Entree Cook And Cashier on 10-08-2012 ESR (Bld) [Velocity] 2 mm/h Normal 0-32 Comp rehensive Internal Medicine Work Phone: Comment on above: PATIENT NOT FASTINGP ERFORMED BY: [facility] Exotlx[address] [facility]in [place] [id number] Information: P37388,2ND ORDER NO DRAW F EE TSH (42697)Ordered By: Reginaldo m Meteorology Instructor on 10-08-2012 TSH Qn 0.504 {uIU/mL} Normal 0.450-4.500 Comprehen sive Internal Medicine Work Phone: Comment on above: PATIENT NOT FASTINGP ERFORMED BY: [facility] Mmruus5302 [facility] [id number] URINE LANDRY CULTURE (LUZMA COL COUNT) (19137)Ordered By: Main Entree Cook And Cashier on 10-08-2012 Bacteria identified Cx Nom (U) MUG Normal [facility] Work Phone: Comment on above: Mixed urogenital karo ra10,000-25,000 colony forming units per mL PATIENT NOT FASTINGP ERFORMED BY: [facility] Wveusb1060 [facility] [id number] Information: SRC:UR [id number] Bacteria identified Cx Nom (U) Final report Normal [facility] Work Phone: Comment on above: PATIENT NOT FASTINGP ERFORMED BY: [facility] Yleeiq4386 [facility] [id number] Information: SRC:UR R42776 Urinalysis, Office (87644)Or dered By: Idania Sheridan on 10-08-2012 Bilirubin [...] [facility] Work Phone: POTASSIUM SERUM (98361)Order ed By: Main Entree Cook And Cashier on 03-23-2012 Potassium [Moles/Vol] 3.9 mmol/L Normal 3.5-5.2 [facility] prehensive Internal Medicine Work Phone: Comment on above: PATIENT NOT FASTINGP ERFORMED BY: HERI [facility] Xhlfqo7492 [facility] [id number] Information: 926603,N59769 Metabolic Panel, Basic (8004 8)Ordered By: Main Entree Cook And Cashier on 03-16-2012 Calcium [Mass/Vol] 9.5 mg/dL Normal 8.7-10.2 [facility]pre [facility] Work Phone: Comment on above: PATIENT NOT FASTINGP ERFORMED BY: HERI [facility] Yahslj2497 [facility] [id number] Information: DRAW FEE 806201 ADD Q63937 Chloride [Moles/Vol] 100 mmol/L Normal 97-108 Comp rehensive Internal Medicine Work Phone: Comment on above: PATIENT NOT FASTINGP ERFORMED BY: CB [facility] Qcymgh1364 [address] RoadDublin [place] [id number] Information: DRAW FEE 618913 ADD N69420 CO2 [Moles/Vol] 23 mmol/L Normal 20-32 Comprehen [facility] Internal Medicine Work Phone: Comment on above: PATIENT NOT FASTINGP ERFORMED BY: CB [facility] Zooryf3306 [address] RoadDublin [place] [id number] Information: DRAW FEE 711669 ADD T33779 Creatinine [Mass/Vol] 0.87 mg/dL Normal 0.57-1.00 [facility] Internal Medicine Work Phone: Comment on above: PATIENT NOT FASTINGP ERFORMED BY: CB [facility] Igbqhc7787 [address] RoadDublin [place] [id number] Information: DRAW FEE 702255 ADD B98228 GFR/1.73 sq M predicted among blacks CKD-EPI (S/P/Bld) [Vol rate/Area] 95 mL/min/1.73 Normal [facility] Work Phone: Comment on above: PATIENT NOT FASTINGP ERFORMED BY: CB [facility] Twzxhw3975 [address] RoadDublin [place] [id number] Information: DRAW FEE 985471 ADD C55922 GFR/1.73 sq M predicted among non-blacks CKD-EPI (S/P/Bld) [Vol rate/Area] 82 mL/min/1.73 Normal [facility] Work Phone: Comment on above: PATIENT NOT FASTINGP ERFORMED BY: CB [facility] Qtazqe5713 [address] RoadDublin [place] [id number] Information: DRAW FEE 454632 ADD D66290 Glucose [Mass/Vol] 96 mg/dL Normal 65-99 Compre [facility] Internal Medicine Work Phone: Comment on above: PATIENT NOT FASTINGP ERFORMED BY: CB [facility] Mdcxol0182 [address] RoadDublin [place] [id number] Information: DRAW FEE 416055 ADD T31665 Potassium [Moles/Vol] 3.3 mmol/L Abnormal 3.5-5.2 [facility] prehensive Internal Medicine Work Phone: Comment on above: Client Requested Fla shikha PATIENT NOT FASTINGP ERFORMED BY: HERI Tatumever Yjowuw[address] [id number] Information: DRAW FEE 255816 ADD E39131 Sodium [Moles/Vol] 140 mmol/L Normal 134-144 [facility] Internal Medicine Work Phone: Comment on above: PATIENT NOT FASTINGP ERFORMED BY: HERI Lab[address] [id number] Information: DRAW FEE 470429 ADD U50675 Urea nitrogen [Mass/Vol] 13 mg/dL Normal 6-24 [facility] Work Phone: Comment on above: PATIENT NOT FASTINGP ERFORMED BY: HERI Winn Yvzaym63[address] [id number] Information: DRAW FEE 534028 ADD M52243 Urea nitrogen/Creatinine [Mass ratio] 15 mg/mg Normal 9-23 [facility] Work Phone: Comment on above: PATIENT NOT FASTINGP ERFORMED BY: HERI Teresa[address] [id number] Information: DRAW FEE 745227 ADD E84129 CBC WITH MANUAL DIFF (45185) Ordered By: Main Entree Cook And Cashier on 04-15-2011 Basophils (Bld) [#/Vol] 0.0 {x10E3/uL} Normal 0.0-0.2 [facility] Work Phone: Comment on above: PATIENT NOT FASTINGP ERFORMED BY: HERI LabCo[address] [id number] Information: 938477,I50361 Basophils (Bld) [#/Vol] 0.0 10*3/uL Normal 0.0-0.2 [facility]; [facility] Work Phone: Comment on above: PATIENT NOT FASTINGP ERFORMED BY: HERI [place] [address] [facility] [id number] Information: 401963,D88986 Basophils/100 WBC (Bld) 1 % Normal 0-3 [facility] Work Phone: Comment on above: PATIENT NOT FASTINGP ERFORMED BY: HERI Lab[facility] HealthCoGreystone Park Psychiatric HospitalTdqxso1775 [facility] [id number] Information: 088965,T95136 Eosinophils (Bld) [#/Vol] 0.1 {x10E3/uL} Normal 0.0-0.4 [facility] Work Phone: Comment on above: PATIENT NOT FASTINGP ERFORMED BY: HERI LabWesley [place] 2499570 [facility] [id number] Information: 969806,P51466 Eosinophils (Bld) [#/Vol] 0.1 10*3/uL Normal 0.0-0.4 [facility]; [facility] Work Phone: Comment on above: PATIENT NOT FASTINGP ERFORMED BY: HERI VilledaCoGreystone Park Psychiatric HospitalMashuj9161 [facility] [id number] Information: 996739,H09147 Eosinophils/100 WBC (Bld) 2 % Normal 0-7 [facility] Work Phone: Comment on above: PATIENT NOT FASTINGP ERFORMED BY: [place] 8081670 [facility] [id number] Information: 701194,A30345 Erythrocyte distribution width (RBC) [Ratio] 12.9 % Normal 11.7-15.0 [facility] Work Phone: Comment on above: PATIENT NOT FASTINGP ERFORMED BY: LabCoGreystone Park Psychiatric HospitalGziobq3676 [facility] [id number] Information: 021133,F96182 Hematocrit (Bld) [Volume fraction] 40.2 % Normal 34.0-44.0 [facility] Work Phone: Comment on above: PATIENT NOT FASTINGP ERFORMED BY: LabWesley [place] 2499570 [facility] [id number] Information: 093387,R02893 Hemoglobin (Bld) [Mass/Vol] 13.5 g/dL Normal 11.5-15.0 [facility] Work Phone: Comment on above: PATIENT NOT FASTINGP ERFORMED BY: HERI [place]illedaW[place] 2499570 [facility] [id number] Information: 661174,F63660 Immature granulocytes (Bld) [#/Vol] 0.0 {x10E3/uL} Normal 0.0-0.1 [facility] Work Phone: Comment on above: PATIENT NOT FASTINGP ERFORMED BY: [address] [id number] Information: 457637,F35714 Immature granulocytes (Bld) [#/Vol] 0.0 10*3/uL Normal 0.0-0.1 [facility]; [facility] Work Phone: Comment on above: PATIENT NOT FASTINGP ERFORMED BY: [place] 8081670 [facility] [id number] Information: 615150,O24319 Immature granulocytes/100 WBC (Bld) 0 % Normal 0-2 [facility] Work Phone: Comment on above: Please note refere nce interval change PATIENT NOT FASTINGP ERFORMED BY: [place] 8081670 [facility] [id number] Information: 285051,Z50031 Lymphocytes (Bld) [#/Vol] 1.8 {x10E3/uL} Normal 0.7-4.5 [facility] Work Phone: Comment on above: PATIENT NOT FASTINGP ERFORMED BY: [facility]6370 [facility] [id number] Information: 129566,E63845 Lymphocytes (Bld) [#/Vol] 1.8 10*3/uL Normal 0.7-4.5 [facility]; [facility] Work Phone: Comment on above: PATIENT NOT FASTINGP ERFORMED BY: HERI Teresalin6370 [facility] [id number] Information: 290750,S72440 Lymphocytes/100 WBC (Bld) 29 % Normal 14-46 [facility] Internal Medicine Work Phone: Comment on above: PATIENT NOT FASTINGP ERFORMED BY: HERI Winn[address] [id number] Information: 381670,A14487 MCH (RBC) [Entitic mass] 31.4 pg Normal 27.0-34.0 [facility] Internal Medicine Work Phone: Comment on above: PATIENT NOT FASTINGP ERFORMED BY: HERI Winn Jjikjm[address] [id number] Information: 180463,V44495 MCHC (RBC) [Mass/Vol] 33.6 g/dL Normal 32.0-36.0 [facility] Internal Medicine Work Phone: Comment on above: PATIENT NOT FASTINGP ERFORMED BY: HERI Villeda[address] [id number] Information: 770434,B03366 MCV (RBC) [Entitic vol] 94 fL Normal 80-98 [facility] Internal Medicine Work Phone: Comment on above: PATIENT NOT FASTINGP ERFORMED BY: HERI Winn[address] [id number] Information: 975058,H13520 Monocytes (Bld) [#/Vol] 0.5 {x10E3/uL} Normal 0.1-1.0 [facility] Internal Medicine Work Phone: Comment on above: PATIENT NOT FASTINGP ERFORMED BY: HERI WinnGreystone Park Psychiatric HospitalIzftwf4451 [facility] [id number] Information: 695283,X09248 Monocytes (Bld) [#/Vol] 0.5 10*3/uL Normal 0.1-1.0 [facility]; [facility] Work Phone: Comment on above: PATIENT NOT FASTINGP ERFORMED BY: HERI [facility]patrickCommunity Health [id number] Information: 418708,S70200 Monocytes/100 WBC (Bld) 8 % Normal 4-13 [facility] Work Phone: Comment on above: PATIENT NOT FASTINGP ERFORMED BY: HERI Urena [facility] [id number] Information: 709400,K35766 Neutrophils (Bld) [#/Vol] 3.7 {x10E3/uL} Normal 1.8-7.8 [facility] Work Phone: Comment on above: PATIENT NOT FASTINGP ERFORMED BY: HERI [place]6370 [facility] [id number] Information: 079173,A38363 Neutrophils (Bld) [#/Vol] 3.7 10*3/uL Normal 1.8-7.8 [facility]; [facility] Work Phone: Comment on above: PATIENT NOT FASTINGP ERFORMED BY: HERI [facility]oSelect [facility]ty Hospital [id number] Information: 349855,T59268 Neutrophils/100 WBC (Bld) 60 % Normal 40-74 [facility] Work Phone: Comment on above: PATIENT NOT FASTINGP ERFORMED BY: HERI [place]6370 [facility] [id number] Information: 585706,L42285 Platelets (Bld) [#/Vol] 231 {x10E3/uL} Normal 140-415 [facility] Work Phone: Comment on above: PATIENT NOT FASTINGP ERFORMED BY: HERI [place]6370 [facility] [id number] Information: 309943,Q63346 Platelets (Bld) [#/Vol] 231 10*3/uL Normal 140-415 [facility]; [facility] Work Phone: Comment on above: PATIENT NOT FASTINGP ERFORMED BY: LabCoGreystone Park Psychiatric HospitalVkzxtp8144 [facility] [id number] Information: 048757,G78176 RBC (Bld) [#/Vol] 4.30 {x10E6/uL} Normal 3.80-5.10 [facility] Internal [facility] Work Phone: Comment on above: PATIENT NOT FASTINGP ERFORMED BY: CB [facility] Zquvhr0741 [facility] [id number] Information: 623706,U88889 RBC (Bld) [#/Vol] 4.30 10*6/uL Normal 3.80-5.10 [facility] Internal Medicine; [facility] Work Phone: Comment on above: PATIENT NOT FASTINGP ERFORMED BY: LabCoGreystone Park Psychiatric HospitalIumjka6524 [facility] [id number] Information: 384684,L75414 WBC (Bld) [#/Vol] 6.1 {x10E3/uL} Normal 4.0-10.5 [facility] Internal Medicine Work Phone: Comment on above: PATIENT NOT FASTINGP ERFORMED BY: HERI LabCoGreystone Park Psychiatric HospitalOddgcd3449 [facility] [id number] Information: 388255,R52749 WBC (Bld) [#/Vol] 6.1 10*3/uL Normal 4.0-10.5 [facility] Internal Medicine; [facility] Work Phone: Comment on above: PATIENT NOT FASTINGP ERFORMED BY: LabCoGreystone Park Psychiatric HospitalAgsnaa7797 [facility] [id number] Information: 158030,S56907 METABOLIC PANEL, COMPREHENSI VE (98968)Ordered By: Main Entree Cook And Cashier on 04-15-2011 Albumin [Mass/Vol] 4.5 g/dL Normal 3.5-5.5 [facility] Internal Medicine Work Phone: Comment on above: PATIENT NOT FASTINGP ERFORMED BY: CB [facility] Vvurkj7752 [address] RoadDublin [place] [id number] Albumin/Globulin [Mass ratio] 1.6 {ratio} Normal 1.1-2.5 [facility] Work Phone: Comment on above: PATIENT NOT FASTINGP ERFORMED BY: CB [facility] Vglamc1209 [address] RoadDublin [place] [id number] ALP [Catalytic activity/Vol] 45 [iU]/L Normal 25-150 [facility] Work Phone: Comment on above: PATIENT NOT FASTINGP ERFORMED BY: CB [facility] Uppryw3282 [address] RoadDublin [place] [id number] ALP [Catalytic activity/Vol] 45 U/L Normal 25-150 [facility]; [facility] Work Phone: Comment on above: PATIENT NOT FASTINGP ERFORMED BY: HERI [facility] Mmpsxr5201 [address] RoadDublin [place] [id number] ALT [Catalytic activity/Vol] 15 [iU]/L Normal 0-40 [facility] Work Phone: Comment on above: PATIENT NOT FASTINGP ERFORMED BY: CB [facility] Bqfwoh2632 [address] RoadDublin [place] [id number] ALT [Catalytic activity/Vol] 15 U/L Normal 0-40 [facility]; [facility] Work Phone: Comment on above: PATIENT NOT FASTINGP ERFORMED BY: CB [facility] Ztonpm1464 [address] RoadDublin [place] [id number] AST [Catalytic activity/Vol] 19 [iU]/L Normal 0-40 [facility] Work Phone: Comment on above: PATIENT NOT FASTINGP ERFORMED BY: CB [facility] Pcrgvk7477 [address] RoadDublin [place] [id number] AST [Catalytic activity/Vol] 19 U/L Normal 0-40 [facility]; [facility] Work Phone: Comment on above: PATIENT NOT FASTINGP ERFORMED BY: CB [facility] Qbgbtm9128 [address] RoadDublin [place] [id number] Bilirubin [Mass/Vol] 0.4 mg/dL Normal 0.0-1.2 Comp rehensive Internal Medicine Work Phone: Comment on above: PATIENT NOT FASTINGP ERFORMED BY: CB [facility] Dorbpd2684 [address] RoadDublin [place] [id number] Calcium [Mass/Vol] 9.4 mg/dL Normal 8.7-10.2 [facility] Internal Medicine Work Phone: Comment on above: PATIENT NOT FASTINGP ERFORMED BY: CB [facility] Zhlibr7633 [address] RoadDublin [place] [id number] Chloride [Moles/Vol] 101 mmol/L Normal 97-108 Comp [facility] hospitalensive [facility] Work Phone: Comment on above: PATIENT NOT FASTINGP ERFORMED BY: CB [facility] Yvvdpy6324 [address] RoadDublin [place] [id number] CO2 [Moles/Vol] 21 mmol/L Normal 20-32 Comprehen [facility] Internal Medicine Work Phone: Comment on above: PATIENT NOT FASTINGP ERFORMED BY: CB [facility] Blklnf8001 [address] RoadDublin [place] [id number] Creatinine [Mass/Vol] 0.84 mg/dL Normal 0.57-1.00 [facility] Internal Medicine Work Phone: Comment on above: PATIENT NOT FASTINGP ERFORMED BY: CB [facility] Tntuyt4765 [address] RoadDublin [place] [id number] GFR/1.73 sq M predicted among blacks MDRD (S/P/Bld) [Vol rate/Area] 100 mL/min/{1.73_m2} Normal Comprehensi ve Internal Medicine Work Phone: Comment on above: Note: A persistent e GFR <60 mL/min/1.73 m2 (3 months or more) mayindicate chronic kidney disease. An eGFR >59 mL/min/1.73 m2 with anelevated urine protein also may indicate chronic kidney disease.Calculated using CKD-EPI formula. PATIENT NOT FASTINGP ERFORMED BY: CB [facility] Wcydjo9903 [address] RoadDublin [place] [id number] GFR/1.73 sq M predicted among non-blacks CKD-EPI (S/P/Bld) [Vol rate/Area] 87 mL/min/1.73 Normal [facility] Internal Medicine Work Phone: Comment on above: PATIENT NOT FASTINGP ERFORMED BY: CB [facility] Acpyxd5336 [address] RoadDublin [place] [id number] Globulin (S) [Mass/Vol] 2.8 g/dL Normal 1.5-4.5 [facility] Internal Medicine Work Phone: Comment on above: PATIENT NOT FASTINGP ERFORMED BY: CB [facility] Dtqyvd1531 [address] RoadDublin [place] [id number] Glucose [Mass/Vol] 80 mg/dL Normal 65-99 [facility] Internal Medicine Work Phone: Comment on above: PATIENT NOT FASTINGP ERFORMED BY: CB [facility] Ldgnpa4820 [address] RoadDuin [place] [id number] Potassium [Moles/Vol] 3.6 mmol/L Normal 3.5-5.2 [facility] Internal Medicine Work Phone: Comment on above: PATIENT NOT FASTINGP ERFORMED BY: CB [facility] Qjjlcv3635 [address] RoadDublin [place] [id number] Protein [Mass/Vol] 7.3 g/dL Normal 6.0-8.5 [facility] Internal Medicine Work Phone: Comment on above: PATIENT NOT FASTINGP ERFORMED BY: CB [facility] Mpjtfh1618 [address] RoadDublin [place] [id number] Sodium [Moles/Vol] 137 mmol/L Normal 135-145 [facility] Internal Medicine Work Phone: Comment on above: PATIENT NOT FASTINGP ERFORMED BY: CB [facility] Yzjcla9418 [address] RoadDublin [place] [id number] Urea nitrogen [Mass/Vol] 14 mg/dL Normal 6-24 [facility] Internal Medicine Work Phone: Comment on above: PATIENT NOT FASTINGP ERFORMED BY: CB [facility] Owrqaq8050 [address] RoadDublin [place] [id number] Urea nitrogen/Creatinine [Mass ratio] 17 mg/mg Normal 9-23 [facility] Work Phone: Comment on above: PATIENT NOT FASTINGP ERFORMED BY: HERI [facility] Ykywuk7254 [address] RoadDublin [place] [id number] TSH ([id number])Ordered By: [employer] m Meteorology Instructor on 04-15-2011 TSH Qn 0.938 {uIU/mL} Normal 0.450-4.500 Comprehen sive Internal Medicine Work Phone: Comment on above: PATIENT NOT FASTINGP ERFORMED BY: CB [facility] Pxooif9248 [address] RoadDublin [place] [id number] URINALYSIS, W/ MICRO (40509) Ordered By: Main Entree Cook And Cashier on 04-15-2011 Appearance (U) Clear Normal Comprehens gian Internal Medicine Work Phone: Comment on above: PATIENT NOT FASTINGP ERFORMED BY: CB [facility] Xdnecf2486 [address] RoadDublin [place] [id number] Bilirubin Ql (U) Negative Normal Comprehe nsive Internal Medicine Work Phone: Comment on above: PATIENT NOT FASTINGP ERFORMED BY: CB [facility] Lqhlty5425 [address] RoadDublin [place] [id number] Bilirubin Ql (U) Negative Normal Comprehe nsive Internal Medicine; [facility] Work Phone: Comment on above: PATIENT NOT FASTINGP ERFORMED BY: CB [facility] Pzhbnv0904 [address] RoadDublin [place] [id number] Color (U) Yellow Normal [facility] Work Phone: Comment on above: PATIENT NOT FASTINGP ERFORMED BY: CB [facility] Bvrjdr8846 [address] RoadDublin [place] [id number] Glucose Ql (U) Negative Normal Comprehens gian Internal Medicine Work Phone: Comment on above: PATIENT NOT FASTINGP ERFORMED BY: CB [facility] Bbsock9383 [address] RoadDublin [place] [id number] Glucose Ql (U) Negative Normal Comprehens gian Internal Medicine; [facility] Work Phone: Comment on above: PATIENT NOT FASTINGP ERFORMED BY: HERI [facility] Tyfkoz8966 [address] RoadDublin [place] [id number] Hemoglobin Ql (U) Negative Normal Compreh ensive Internal Medicine Work Phone: Comment on above: PATIENT NOT FASTINGP ERFORMED BY: HERI [facility] Mpozar5114 [address] RoadDublin [place] [id number] Hemoglobin Ql (U) Negative Normal Compreh ensive Internal Medicine; [facility] Work Phone: Comment on above: PATIENT NOT FASTINGP ERFORMED BY: HERI [facility] Keinwk6296 [address] RoadDublin [place] [id number] Ketones Ql (U) Negative Normal Comprehens gian Internal Medicine Work Phone: Comment on above: PATIENT NOT FASTINGP ERFORMED BY: HERI [facility] Kcurfy7562 [address] RoadDublin [place] [id number] Ketones Ql (U) Negative Normal Comprehens gian Internal Medicine; [facility] Work Phone: Comment on above: PATIENT NOT FASTINGP ERFORMED BY: HERI [facility] Wzkdce8596 [address] RoadDublin [place] [id number] Leukocyte esterase Test strip Ql (U) Negative Normal [facility] Work Phone: Comment on above: PATIENT NOT FASTINGP ERFORMED BY: HERI LabCoever TeresaPfpzna6302 [address] RoadDublin [place] [id number] Leukocyte esterase Test strip Ql (U) Negative Normal [facility]; [facility] Work Phone: Comment on above: PATIENT NOT FASTINGP ERFORMED BY: HERI [facility] Sogsfx9995 [address] RoadDublin [place] [id number] Microscopic observation LM Nom (Urine sed) MICRON Normal [facility] Work Phone: Comment on above: Microscopic follows if indicated. PATIENT NOT FASTINGP ERFORMED BY: HERI [facility] Eznhkb9752 [address]Dublin [place] [id number] Microscopic observation LM Nom (Urine sed) See below: Normal [facility] Work Phone: Comment on above: PATIENT NOT FASTINGP ERFORMED BY: HERI [facility] Lhcpkq9789 [address] RoadDublin [place] [id number] Nitrite Ql (U) Negative Normal Comprehens [facility] Work Phone: Comment on above: PATIENT NOT FASTINGP ERFORMED BY: HERI Winnrp Chvlyr2522 [address]ingo RoadDublin [place] [id number] Nitrite Ql (U) Negative Normal Comprehens [facility]; [facility] Work Phone: Comment on above: PATIENT NOT FASTINGP ERFORMED BY: HERI LabManasrp Wjvdod6163 [address]ingo RoadDublin [place] [id number] pH (U) 7.0 [pH] Normal 5.0-7.5 [facility] Work Phone: Comment on above: PATIENT NOT FASTINGP ERFORMED BY: HERI LabElena Inxqnb1806 [address]ingo RoadDublin [place] [id number] Protein Ql (U) Negative Normal Comprehens [facility] Work Phone: Comment on above: PATIENT NOT FASTINGP ERFORMED BY: HERI LabCo Ldmfnv2545 [address] RoadDublin [place] [id number] Protein Ql (U) Negative Normal Comprehens [facility]; [facility] Work Phone: Comment on above: PATIENT NOT FASTINGP ERFORMED BY: HERI Tatum Mtndxx9737 [address]ingo RoadDublin [place] [id number] Specific gravity (U) [Rel density] 1.011 1 Normal 1.005-1.030 [facility] Work Phone: Comment on above: PATIENT NOT FASTINGP ERFORMED BY: HERI [facility] Ujplao7657 Domingo RoadDublin [place] [id number] Urobilinogen (U) [Mass/Vol] 0.2 mg/dL Normal 0.0-1.9 [facility]; [facility] Work Phone: Comment on above: PATIENT NOT FASTINGP ERFORMED BY: Lab[facility] Nyvnaf3868 [address] RoadDublin [place] [id number] Urobilinogen Test strip (U) [Mass/Vol] 0.2 mg/dL Normal 0.0-1.9 Comprehensi Internal Medicine Work Phone: Comment on above: PATIENT NOT FASTINGP ERFORMED BY: HERI WinnGreystone Park Psychiatric HospitalYerslr0809 [facility] [id number] CBC WITH MANUAL DIFF ([id number]) Ordered By: Main Entree Cook And Cashier on 01-17-2010 Basophils (Bld) [#/Vol] 0.0 {x10E3/uL} Normal 0.0-0.2 [facility] Work Phone: Comment on above: PATIENT WAS FASTINGP ERFORMED BY: [address] [id number] Information: [id number] Basophils (Bld) [#/Vol] 0.0 10*3/uL Normal 0.0-0.2 [facility]; [facility] Work Phone: Comment on above: PATIENT WAS FASTINGP ERFORMED BY: [facility]6370 [facility] [id number] Information: [id number] Basophils/100 WBC (Bld) 1 % Normal 0-3 [facility] Work Phone: Comment on above: PATIENT WAS FASTINGP ERFORMED BY: TatumGreystone Park Psychiatric HospitalXmkpgj9106 [facility] [id number] Information: [id number] Eosinophils (Bld) [#/Vol] 0.2 {x10E3/uL} Normal 0.0-0.4 [facility] Work Phone: Comment on above: PATIENT WAS FASTINGP ERFORMED BY: [facility]6370 [facility] [id number] Information: [id number] Eosinophils (Bld) [#/Vol] 0.2 10*3/uL Normal 0.0-0.4 [facility]; [facility] Work Phone: Comment on above: PATIENT WAS FASTINGP ERFORMED BY: [facility]6370 [facility] [id number] Information: [id number] Eosinophils/100 WBC (Bld) 4 % Normal 0-7 [facility] Work Phone: Comment on above: PATIENT WAS FASTINGP ERFORMED BY: [address] [id number] Information: [id number],[id number] Erythrocyte distribution width (RBC) [Ratio] 12.2 % Normal 11.7-15.0 [facility] Work Phone: Comment on above: PATIENT WAS FASTINGP ERFORMED BY: [address] [id number] Information: [id number] Hematocrit (Bld) [Volume fraction] 38.4 % Normal 34.0-44.0 [facility] Work Phone: Comment on above: PATIENT WAS FASTINGP ERFORMED BY: [address] [id number] Information: [id number],[id number] Hemoglobin (Bld) [Mass/Vol] 13.4 g/dL Normal 11.5-15.0 [facility] Work Phone: Comment on above: PATIENT WAS FASTINGP ERFORMED BY: [address] [id number] Information: [id number] Immature granulocytes (Bld) [#/Vol] 0.0 {x10E3/uL} Normal 0.0-0.1 [facility] Work Phone: Comment on above: PATIENT WAS FASTINGP ERFORMED BY: [address] [id number] Information: [id number] Immature granulocytes (Bld) [#/Vol] 0.0 10*3/uL Normal 0.0-0.1 [facility]; [facility] Work Phone: Comment on above: PATIENT WAS FASTINGP ERFORMED BY: [address] [id number] Information: [id number] Immature granulocytes/100 WBC (Bld) 0 % Normal 0-1 [facility] Work Phone: Comment on above: PATIENT WAS FASTINGP ERFORMED BY: HERI ChristianaElena Ejorlx1237 [facility] [id number] Information: [id number] Lymphocytes (Bld) [#/Vol] 1.4 {x10E3/uL} Normal 0.7-4.5 [facility] Work Phone: Comment on above: PATIENT WAS FASTINGP ERFORMED BY: HERI [place] 1213770 [facility] [id number] Information: [id number],[id number] Lymphocytes (Bld) [#/Vol] 1.4 10*3/uL Normal 0.7-4.5 [facility]; [facility] Work Phone: Comment on above: PATIENT WAS FASTINGP ERFORMED BY: HERI [place] 1213770 [facility] [id number] Information: [id number] Lymphocytes/100 WBC (Bld) 36 % Normal 14-46 [facility] Work Phone: Comment on above: PATIENT WAS FASTINGP ERFORMED BY: HERI [place] 1213770 [facility] [id number] Information: [id number],[id number] MCH (RBC) [Entitic mass] 30.7 pg Normal 27.0-34.0 [facility] Internal Medicine Work Phone: Comment on above: PATIENT WAS FASTINGP ERFORMED BY: HERI LabMclaren Northern Michigan6370 [facility] [id number] Information: [id number] MCHC (RBC) [Mass/Vol] 34.9 g/dL Normal 32.0-36.0 [facility] Internal Medicine Work Phone: Comment on above: PATIENT WAS FASTINGP ERFORMED BY: LabCoLisa Ville 7563870 [facility] [id number] Information: [id number] MCV (RBC) [Entitic vol] 88 fL Normal 80-98 [facility] Work Phone: Comment on above: PATIENT WAS FASTINGP ERFORMED BY: HERI Teresalin6370 [facility] [id number] Information: [id number] Monocytes (Bld) [#/Vol] 0.4 {x10E3/uL} Normal 0.1-1.0 [facility] Work Phone: Comment on above: PATIENT WAS FASTINGP ERFORMED BY: HERI Teresalin6370 [facility] [id number] Information: [id number] Monocytes (Bld) [#/Vol] 0.4 10*3/uL Normal 0.1-1.0 [facility]; [facility] Work Phone: Comment on above: PATIENT WAS FASTINGP ERFORMED BY: HERI Teresalin6370 [facility] [id number] Information: [id number] Monocytes/100 WBC (Bld) 10 % Normal 4-13 [facility] Work Phone: Comment on above: PATIENT WAS FASTINGP ERFORMED BY: HERI Teresa[address] [id number] Information: [id number],[id number] Neutrophils (Bld) [#/Vol] 2.0 {x10E3/uL} Normal 1.8-7.8 [facility] Work Phone: Comment on above: PATIENT WAS FASTINGP ERFORMED BY: HERI [place] 1213770 [facility] [id number] Information: [id number],[id number] Neutrophils (Bld) [#/Vol] 2.0 10*3/uL Normal 1.8-7.8 [facility]; [facility] Work Phone: Comment on above: PATIENT WAS FASTINGP ERFORMED BY: HERI Teresalin6370 [facility] [id number] Information: [id number],[id number] Neutrophils/100 WBC (Bld) 49 % Normal 40-74 [facility] Work Phone: Comment on above: PATIENT WAS FASTINGP ERFORMED BY: HERI Winn Tlwybe3152 [facility] [id number] Information: [id number],[id number] Platelets (Bld) [#/Vol] 207 {x10E3/uL} Normal 140-415 [facility] Work Phone: Comment on above: PATIENT WAS FASTINGP ERFORMED BY: HERI Winn Clwziu1086 [facility] [id number] Information: [id number] Platelets (Bld) [#/Vol] 207 10*3/uL Normal 140-415 [facility]; [facility] Work Phone: Comment on above: PATIENT WAS FASTINGP ERFORMED BY: HERI Tatum Cbpogf8218 [facility] [id number] Information: 517400,[id number] RBC (Bld) [#/Vol] 4.36 {x10E6/uL} Normal 3.80-5.10 [facility] Work Phone: Comment on above: PATIENT WAS FASTINGP ERFORMED BY: HREI [facility]aRusk [facility] Center Jzoscx0070 [facility] [id number] Information: [id number] RBC (Bld) [#/Vol] 4.36 10*6/uL Normal 3.80-5.10 [facility] Internal Medicine; [facility] Work Phone: Comment on above: PATIENT WAS FASTINGP ERFORMED BY: HERI Winn Vliddl5856 [facility] [id number] Information: [id number] WBC (Bld) [#/Vol] 4.0 {x10E3/uL} Normal 4.0-10.5 [facility] Internal Medicine Work Phone: Comment on above: PATIENT WAS FASTINGP ERFORMED BY: HERI [place]banks6370 [facility] [id number] Information: [id number] WBC (Bld) [#/Vol] 4.0 10*3/uL Normal 4.0-10.5 [facility] Internal Medicine; [facility] Work Phone: Comment on above: PATIENT WAS FASTINGP ERFORMED BY: HERI ChristianaCo Wuppcu0341 [facility] [id number] Information: [id number] LIPID PANEL (21625)Ordered B y: Main Entree Cook And Cashier on 01-17-2010 Cholesterol [Mass/Vol] 179 mg/dL Normal 100-199 [facility] Internal Medicine Work Phone: Comment on above: PATIENT WAS FASTINGP ERFORMED BY: HERI Tatum Jhwpdk6094 [facility] [id number] Cholesterol in HDL [Mass/Vol] 56 mg/dL Normal [facility] Work Phone: Comment on above: According to ATP-III Guidelines, HDL-C >59 mg/dL is considered anegative risk factor for CHD. PATIENT WAS FASTINGP ERFORMED BY: HERI Dino Fairbanks6370 [facility] [id number] Cholesterol in LDL [Mass/Vol] 100 mg/dL Abnormal 0-99 [facility] Work Phone: Comment on above: PATIENT WAS FASTINGP ERFORMED BY: HERI LabManas Dadvfa5312 [facility] [id number] Cholesterol in LDL/Cholesterol in HDL [Mass ratio] 1.8 {ratio_units} Normal 0.0-3.2 [facility] Work Phone: Comment on above: PATIENT WAS FASTINGP ERFORMED BY: HERI LabManas Lhyhzj0596 [facility] [id number] Cholesterol in VLDL [Mass/Vol] 23 mg/dL Normal 5-40 [facility] Work Phone: Comment on above: PATIENT WAS FASTINGP ERFORMED BY: HERI Lab[facility] Lmsigj0344 [address] RoadDublin [place] [id number] Triglyceride [Mass/Vol] 117 mg/dL Normal 0-149 [facility] Work Phone: Comment on above: PATIENT WAS FASTINGP ERFORMED BY: HERI LabCoever TeresaZrkgug9875 Domingo RoadDublin [place] [id number] METABOLIC PANEL, COMPREHENSI VE (21113)Ordered By: Main Entree Cook And Cashier on 01-17-2010 Albumin [Mass/Vol] 4.2 g/dL Normal 3.5-5.5 [facility] Internal Medicine Work Phone: Comment on above: PATIENT WAS FASTINGP ERFORMED BY: HERI LabElena TeresaStnmoj3400 Domingo Roadblin [place] [id number] Albumin/Globulin [Mass ratio] 1.5 {ratio} Normal 1.1-2.5 [facility] Work Phone: Comment on above: PATIENT WAS FASTINGP ERFORMED BY: HERI LabRusk [facility] Center Yibwyt0329 [address] [facility]in [place] [id number] ALP [Catalytic activity/Vol] 39 [iU]/L Normal 25-150 [facility] Work Phone: Comment on above: PATIENT WAS FASTINGP ERFORMED BY: HERI LabElena TeresaXjnvtn7114 [address] [facility]in [place] [id number] ALP [Catalytic activity/Vol] 39 U/L Normal 25-150 [facility]; [facility] Work Phone: Comment on above: PATIENT WAS FASTINGP ERFORMED BY: HERI LabCo Irozhv4485 [address] [facility]in [place] [id number] ALT [Catalytic activity/Vol] 15 [iU]/L Normal 0-40 [facility] Work Phone: Comment on above: PATIENT WAS FASTINGP ERFORMED BY: HERI LabCo Mfsbfs8937 [address] [facility]bl[facility] [place] [id number] ALT [Catalytic activity/Vol] 15 U/L Normal 0-40 [facility]; [facility] Work Phone: Comment on above: PATIENT WAS FASTINGP ERFORMED BY: HERI LabCo Fagoku5112 [address] RoadDublin [place] [id number] AST [Catalytic activity/Vol] 19 [iU]/L Normal 0-40 [facility] Internal Medicine Work Phone: Comment on above: PATIENT WAS FASTINGP ERFORMED BY: CB [facility] Antayr4870 [address] RoadDublin [place] [id number] AST [Catalytic activity/Vol] 19 U/L Normal 0-40 [facility]; [facility] Internal Medicine Work Phone: Comment on above: PATIENT WAS FASTINGP ERFORMED BY: HERI [facility] Zfodwz5892 [address] RoadDublin [place] [id number] Bilirubin [Mass/Vol] 0.5 mg/dL Normal 0.0-1.2 [facility] Work Phone: Comment on above: PATIENT WAS FASTINGP ERFORMED BY: HERI Lab[facility] Cfsyan3577 [address] RoadDublin [place] [id number] Calcium [Mass/Vol] 9.1 mg/dL Normal 8.7-10.2 [facility] Internal Medicine Work Phone: Comment on above: PATIENT WAS FASTINGP ERFORMED BY: HERI Lab[facility] Gnmtmc8453 [address] RoadDublin [place] [id number] Chloride [Moles/Vol] 106 mmol/L Normal 97-108 [facility] Internal Medicine Work Phone: Comment on above: PATIENT WAS FASTINGP ERFORMED BY: HERI [facility] Meyawg8414 [address] RoadDublin [place] [id number] CO2 [Moles/Vol] 20 mmol/L Normal 20-32 [facility] Internal Medicine Work Phone: Comment on above: PATIENT WAS FASTINGP ERFORMED BY: HERI [facility] Gdijcl7574 [address] RoadDublin [place] [id number] Creatinine [Mass/Vol] 0.95 mg/dL Normal 0.57-1.00 [facility] Internal Medicine Work Phone: Comment on above: PATIENT WAS FASTINGP ERFORMED BY: CB [facility] Bmvtjq8522 [address] RoadDublin [place] [id number] GFR/1.73 sq M predicted among blacks MDRD (S/P/Bld) [Vol rate/Area] mL/min/{1.73_m2} Normal [facility] Work Phone: Comment on above: Note: Persistent red uction for 3 months or more in an eGFR<60 mL/min/1.73 m2 defines CKD. Patients with eGFR values>/=60 mL/min/1.73 m2 may also have CKD if evidence of persistentproteinuria is present. Additional information may be found atwww.kdoqi.org. PATIENT WAS FASTINGP ERFORMED BY: LUMI Mask Waylyl0745 [address] [facility]EC[facility] [id number] GFR/1.73 sq M.predicted MDRD (S/P/Bld) [Vol rate/Area] mL/min/{1.73_m2} Normal [facility] Work Phone: Comment on above: PATIENT WAS FASTINGP ERFORMED BY: LUMI MaskGreystone Park Psychiatric HospitalOlttgh9025 [address] [facility] [facility] [id number] GFR/1.73 sq M.predicted MDRD vol rate/area mL/min/{1.73_m2} Normal [facility] Work Phone: Comment on above: PATIENT WAS FASTINGP ERFORMED BY: LUMI Mask Kkovng3528 [facility] [id number] Globulin (S) [Mass/Vol] 2.8 g/dL Normal 1.5-4.5 [facility] Internal Medicine Work Phone: Comment on above: PATIENT WAS FASTINGP ERFORMED BY: LUMI Mask Clpxkb3248 [facility] [id number] Glucose [Mass/Vol] 89 mg/dL Normal 65-99 [facility] Internal Medicine Work Phone: Comment on above: PATIENT WAS FASTINGP ERFORMED BY: LUMI Mask Agsocu1936 [facility] [id number] Potassium [Moles/Vol] 3.9 mmol/L Normal 3.5-5.2 [facility] Internal Medicine Work Phone: Comment on above: PATIENT WAS FASTINGP ERFORMED BY: HERI [facility] Ogjxhx5854 [address] RoadDublin [place] [id number] Protein [Mass/Vol] 7.0 g/dL Normal 6.0-8.5 [facility] Internal Medicine Work Phone: Comment on above: PATIENT WAS FASTINGP ERFORMED BY: CB [facility] Lvgxok9122 [address] RoadDublin [place] [id number] Sodium [Moles/Vol] 141 mmol/L Normal 135-145 [facility] Internal Medicine Work Phone: Comment on above: PATIENT WAS FASTINGP ERFORMED BY: CB [facility] Anqtpn9647 [address] RoadDublin [place] [id number] Urea nitrogen [Mass/Vol] 15 mg/dL Normal 5- [facility] Internal Medicine Work Phone: Comment on above: PATIENT WAS FASTINGP ERFORMED BY: HERI [facility] Azdhrr2629 [address] RoadDublin [place] [id number] Urea nitrogen/Creatinine [Mass ratio] 16 mg/mg Normal 8- [facility] Internal Medicine Work Phone: Comment on above: PATIENT WAS FASTINGP ERFORMED BY: HERI [facility] Qifklb2143 [address] RoadDublin [place] [id number] TSH ([id number])Ordered By: [employer], [employer] m Meteorology Instructor on 01-17-2010 TSH Qn 1.160 {uIU/mL} Normal 0.450-4.500 Comprehen [facility] Internal Medicine Work Phone: Comment on above: PATIENT WAS FASTINGP ERFORMED BY: CB [facility] Fikjxq8091 [address] RoadDublin [place] [id number] URINALYSIS, W/ MICRO (06923) Ordered By: Main Entree Cook And Cashier on 01-17-2010 Appearance (U) Clear Normal Comprehens gian Internal Medicine Work Phone: Comment on above: PATIENT WAS FASTINGP ERFORMED BY: CB [facility] Ltiuvp3231 [address] RoadDublin [place] [id number] Bilirubin Ql (U) Negative Normal Comprehe nsive Internal Medicine Work Phone: Comment on above: PATIENT WAS FASTINGP ERFORMED BY: HERI Teresalin6370 [address] RoadDublin [place] [id number] Bilirubin Ql (U) Negative Normal Comprehe nsive Internal Medicine; [facility] Work Phone: Comment on above: PATIENT WAS FASTINGP ERFORMED BY: HERI Fairbanks6370 [address] RoadDublin [place] [id number] Color (U) Yellow Normal [facility] Work Phone: Comment on above: PATIENT WAS FASTINGP ERFORMED BY: HERI Teresalin6370 [address] RoadDublin [place] [id number] Glucose Ql (U) Negative Normal Comprehens gian Internal Medicine Work Phone: Comment on above: PATIENT WAS FASTINGP ERFORMED BY: HERI Teresalin6370 [address] RoadDublin [place] [id number] Glucose Ql (U) Negative Normal Comprehens gain Internal Medicine; [facility] Work Phone: Comment on above: PATIENT WAS FASTINGP ERFORMED BY: HERI Teresalin6370 [address] RoadDublin [place] [id number] Hemoglobin Ql (U) Negative Normal Compreh ensive Internal Medicine Work Phone: Comment on above: PATIENT WAS FASTINGP ERFORMED BY: HERI Teresalin6370 [address] RoadDublin [place] [id number] Hemoglobin Ql (U) Negative Normal Compreh ensive Internal Medicine; [facility] Work Phone: Comment on above: PATIENT WAS FASTINGP ERFORMED BY: HERI Teresalin6370 [address] RoadDublin [place] [id number] Ketones Ql (U) Trace Abnormal Comprehens gian Internal Medicine Work Phone: Comment on above: PATIENT WAS FASTINGP ERFORMED BY: HERI Teresalin6370 [address] RoadDublin [place] [id number] Leukocyte esterase Test strip Ql (U) Negative Normal [facility] Work Phone: Comment on above: PATIENT WAS FASTINGP ERFORMED BY: HERI Teresalin6370 [address] RoadDublin [place] [id number] Leukocyte esterase Test strip Ql (U) Negative Normal [facility]; [facility] Work Phone: Comment on above: PATIENT WAS FASTINGP ERFORMED BY: HERI [place]banks6370 [facility] [id number] Microscopic observation LM Nom (Urine sed) MICRON Normal [facility] Work Phone: Comment on above: Microscopic follows if indicated. PATIENT WAS FASTINGP ERFORMED BY: HERI [place]banks6370 [facility] [id number] Microscopic observation LM Nom (Urine sed) See below: Normal [facility] Work Phone: Comment on above: PATIENT WAS FASTINGP ERFORMED BY: HERI [place]banks6370 [facility] [id number] Nitrite Ql (U) Negative Normal Comprehens gian Internal Medicine Work Phone: Comment on above: PATIENT WAS FASTINGP ERFORMED BY: HERI [place]banks6370 [facility] [id number] Nitrite Ql (U) Negative Normal Comprehens gian Internal Medicine; [facility] Work Phone: Comment on above: PATIENT WAS FASTINGP ERFORMED BY: HERI [place]banks6370 [facility] [id number] pH (U) 6.0 [pH] Normal 5.0-7.5 [facility] Work Phone: Comment on above: PATIENT WAS FASTINGP ERFORMED BY: HERI [place]banks6370 [facility] [id number] Protein Ql (U) Trace Normal Comprehens gian Internal Medicine Work Phone: Comment on above: PATIENT WAS FASTINGP ERFORMED BY: HERI Fairbanks6370 [facility] [id number] Specific gravity (U) [Rel density] 1.025 1 Normal 1.005-1.030 [facility] Work Phone: Comment on above: PATIENT WAS FASTINGP ERFORMED BY: HERI Teresa99 Kirk Streetin [place] [id number] Urobilinogen (U) [Mass/Vol] 0.2 mg/dL Normal 0.0-1.9 [facility]; [facility] Work Phone: Comment on above: PATIENT WAS FASTINGP ERFORMED BY: HERI [facility] Mmgkxc1529 [facility] [id number] Urobilinogen Test strip (U) [Mass/Vol] 0.2 mg/dL Normal 0.0-1.9 Comprehensi ve Internal Medicine Work Phone: Comment on above: PATIENT WAS FASTINGP ERFORMED BY: HERI [facility] Rktydt9639 [facility] [id number] Creatine Kinase Total (72344 )Ordered By: Libertad Fast on 05-22-2009 CK [Catalytic activity/Vol] 84 U/L Normal 24-173 [facility] Work Phone: Comment on above: PATIENT NOT FASTINGP ERFORMED BY: HERI [facility]illedaR[facility] Rehabilitation Center Kxmrsm3925 [facility] [id number] METABOLIC PANEL, COMPREHENSI VE (81696)Ordered By: Libertad Fast on 05-22-2009 Albumin [Mass/Vol] 4.3 g/dL Normal 3.5-5.5 [facility] Internal Medicine Work Phone: Comment on above: PATIENT NOT FASTINGC linical Information: [id number] PERFORMED BY: HERI Winn Vdmjcn9176 [facility] [id number] Albumin/Globulin [Mass ratio] 1.5 {ratio} Normal 1.1-2.5 [facility] Work Phone: Comment on above: PATIENT NOT FASTINGC linical Information: [id number] PERFORMED BY: HERI VilledaR[facility] Rehabilitation Center Qivzjq0558 [facility] [id number] ALP [Catalytic activity/Vol] 46 [iU]/L Normal 25-150 [facility] Work Phone: Comment on above: PATIENT NOT FASTINGC linical Information: [id number] PERFORMED BY: HERI VilledaRusk Rehabilitation Center Lfufkf6874 [address] RoadDublin [place] [id number] ALP [Catalytic activity/Vol] 46 U/L Normal 25-150 [facility]; [facility] Work Phone: Comment on above: PATIENT NOT FASTINGC linical Information: [id number] PERFORMED BY: HERI [facility] Dqchdz2610 [address] RoadDublin [place] [id number] ALT [Catalytic activity/Vol] 15 [iU]/L Normal 0-40 [facility] Work Phone: Comment on above: PATIENT NOT FASTINGC linical Information: [id number] PERFORMED BY: HERI [facility] Gebpzh8261 [address] RoadDublin [place] [id number] ALT [Catalytic activity/Vol] 15 U/L Normal 0-40 [facility]; [facility] Work Phone: Comment on above: PATIENT NOT FASTINGC linical Information: [id number] PERFORMED BY: Lab[facility] Wdaack5420 [address] RoadDublin [place] [id number] AST [Catalytic activity/Vol] 17 [iU]/L Normal 0-40 [facility] Work Phone: Comment on above: PATIENT NOT FASTINGC linical Information: [id number] PERFORMED BY: [facility] Zyusxc9146 [address] RoadDublin [place] [id number] AST [Catalytic activity/Vol] 17 U/L Normal 0-40 [facility]; [facility] Work Phone: Comment on above: PATIENT NOT FASTINGC linical Information: [id number] PERFORMED BY: [facility] Knndjs3645 [address] RoadDublin [place] [id number] Bilirubin [Mass/Vol] 0.5 mg/dL Normal 0.1-1.2 Comp [facility] Internal Medicine Work Phone: Comment on above: PATIENT NOT FASTINGC linical Information: [id number] PERFORMED BY: [facility] Qykqyr7558 Domingo RoadDublin [place] [id number] Calcium [Mass/Vol] 9.6 mg/dL Normal 8.5-10.6 [facility] Internal Medicine Work Phone: Comment on above: PATIENT NOT FASTINGC linical Information: [id number] PERFORMED BY: CB [facility] Sqapcu[address] [employer] [facility] [place] [id number] Chloride [Moles/Vol] 101 mmol/L Normal 97-108 [facility] rehensive Internal Medicine Work Phone: Comment on above: PATIENT NOT FASTINGC linical Information: [id number] PERFORMED BY: [facility] Hwzmvg[address] [employer] [place] [id number] CO2 [Moles/Vol] 24 mmol/L Normal 20-32 [facility] Internal Medicine Work Phone: Comment on above: PATIENT NOT FASTINGC linical Information: [id number] PERFORMED BY: [facility]Cell[facility] Uibhjk1964 [address] [facility] [id number] Creatinine [Mass/Vol] 0.90 mg/dL Normal 0.57-1.[address] [facility] Work Phone: Comment on above: PATIENT NOT FASTINGC linical Information: [id number] PERFORMED BY: [employer] LabeSight[address] [employer] [facility] [place] [id number] GFR/1.73 sq M predicted among blacks MDRD (S/P/Bld) [Vol rate/Area] mL/min/{1.73_m2} Normal [facility] Work Phone: Comment on above: Note: Persistent red uction for 3 months or more in an eGFR<60 mL/min/1.73 m2 defines CKD. Patients with eGFR values>/=60 mL/min/1.73 m2 may also have CKD if evidence of persistentproteinuria is present. Additional information may be found [email or web address]. PATIENT NOT FASTINGC linical Information: [id number] PERFORMED BY: [employer] [facility] Fzviel[address] [facility] [id number] GFR/1.73 sq M.predicted MDRD (S/P/Bld) [Vol rate/Area] mL/min/{1.73_m2} Normal [facility] Internal Medicine Work Phone: Comment on above: PATIENT NOT FASTINGC linical Information: [id number] PERFORMED BY: [facility] [id number] GFR/1.73 sq M.predicted MDRD vol rate/area mL/min/{1.73_m2} Normal [facility] Medicine Work Phone: Comment on above: PATIENT NOT FASTINGC linical Information: [id number] PERFORMED BY: [place] [id number] [facility] [id number] Globulin (S) [Mass/Vol] 2.8 g/dL Normal 1.5-4.5 [facility] Internal Medicine Work Phone: Comment on above: PATIENT NOT FASTINGC linical Information: [id number] PERFORMED BY: LabW[place] [id number] [facility] [id number] Glucose [Mass/Vol] 79 mg/dL Normal 65-99 [facility] Internal Medicine Work Phone: Comment on above: PATIENT NOT FASTINGC linical Information: [id number] PERFORMED BY: [facility]6370 [facility] [id number] Potassium [Moles/Vol] 4.0 mmol/L Normal 3.5-5.2 [facility] Internal Medicine Work Phone: Comment on above: PATIENT NOT FASTINGC linical Information: [id number] PERFORMED BY: [facility]6370 [facility] [id number] Protein [Mass/Vol] 7.1 g/dL Normal 6.0-8.5 [facility] Internal Medicine Work Phone: Comment on above: PATIENT NOT FASTINGC linical Information: [id number] PERFORMED BY: [facility]6370 [facility] [id number] Sodium [Moles/Vol] 139 mmol/L Normal 135-145 [facility]pre [facility] Internal Medicine Work Phone: Comment on above: PATIENT NOT FASTINGC linical Information: [id number] PERFORMED BY: [facility]6370 [facility] [id number] Urea nitrogen [Mass/Vol] 25 mg/dL Normal 5-26 [facility] Work Phone: Comment on above: PATIENT NOT FASTINGC linical Information: [id number] PERFORMED BY: [facility]6370 [facility] [id number] Urea nitrogen/Creatinine [Mass ratio] 28 mg/mg Abnormal 8-27 [facility] Work Phone: Comment on above: PATIENT NOT FASTINGC linical Information: [id number] PERFORMED BY: [facility]6370 [facility] [id number] Urinalysis, Office ([id number])Or dered By: Cammie Ramos on 10-07-2008 Bilirubin [...] Internal Medicine Work Phone: HEPATIC FUNCTION PANEL ([phone])Ordered By: Libertad Rivera on 01-04-2008 Albumin [Mass/Vol] 4.5 g/dL Normal 3.5-5.5 Compre [facility] Internal Medicine Work Phone: Comment on above: now and in 2 weeks; PATIENT NOT FASTINGClinical Information: ADD DRAW FEE [id number] ADD J [id number] PERFORMED BY: HERI [employer] [facility] [id number] ALP [Catalytic activity/Vol] 42 [iU]/L Normal 25-150 [facility] Work Phone: Comment on above: now and in 2 weeks; PATIENT NOT FASTINGClinical Information: ADD DRAW FEE [id number] ADD J [id number] PERFORMED BY: Programmr [place] [facility] [facility] [id number] ALP [Catalytic activity/Vol] 42 U/L Normal 25-150 [facility]; [facility] Work Phone: Comment on above: now and in 2 weeks; PATIENT NOT FASTINGClinical Information: ADD DRAW FEE [id number] ADD J [id number] PERFORMED BY: Programmr [place] [facility] [facility] [id number] ALT [Catalytic activity/Vol] 10 [iU]/L Normal 0-40 [facility] Work Phone: Comment on above: now and in 2 weeks; PATIENT NOT FASTINGClinical Information: ADD DRAW FEE [id number] ADD J [id number] PERFORMED BY: Just[employer] [facility] [id number] ALT [Catalytic activity/Vol] 10 U/L Normal 0-40 [facility]; [facility] Work Phone: Comment on above: now and in 2 weeks; PATIENT NOT FASTINGClinical Information: ADD DRAW FEE [id number] ADD J 57573 PERFORMED BY: Mozaik MediaMclaren Northern Michigan6370 [facility] [id number] AST [Catalytic activity/Vol] 15 [iU]/L Normal 0-40 [facility] Work Phone: Comment on above: now and in 2 weeks; PATIENT NOT FASTINGClinical Information: ADD DRAW FEE [id number] ADD J [id number] PERFORMED BY: Lab[address] [id number] AST [Catalytic activity/Vol] 15 U/L Normal 0-40 [facility]; [facility] Work Phone: Comment on above: now and in 2 weeks; PATIENT NOT FASTINGClinical Information: ADD DRAW FEE [id number] ADD J 00177 PERFORMED BY: [place] [id number] [facility] [id number] Bilirubin [Mass/Vol] 0.4 mg/dL Normal 0.1-1.2 [facility] Internal Medicine Work Phone: Comment on above: now and in 2 weeks; PATIENT NOT FASTINGClinical Information: ADD DRAW FEE [id number] ADD J 51659 PERFORMED BY: [address] [id number] Bilirubin.direct [Mass/Vol] 0.11 mg/dL Normal 0.00-0.40 [facility] Internal Medicine Work Phone: Comment on above: now and in 2 weeks; PATIENT NOT FASTINGClinical Information: ADD DRAW FEE [id number] ADD J 66798 PERFORMED BY: [place] [id number] [facility] [id number] Protein [Mass/Vol] 7.3 g/dL Normal 6.0-8.5 [facility] Internal Medicine Work Phone: Comment on above: now and in 2 weeks; PATIENT NOT FASTINGClinical Information: ADD DRAW FEE [id number] ADD J [id number] PERFORMED BY: [place] [id number] [facility] [id number] Thin prep Pap ([id number])Ordered By: Libertad Rivera on 10-12-2007 Thin prep Pap ([id number]) SPRCS Normal [facility] prehensive Internal Medicine Work Phone: Comment on above: NEGATIVE FOR INTRAEP ITHELIAL LESION AND MALIGNANCY.Satisfactory for evaluation. Endocervical and/or squamous metaplasticcells (endocervical component) are present.V72.31 ; Routine gynecological examinationLorena Gonzales Experimental Rocket Sled Mechanic (ASCP) Source.............C ervical;EndocervicalLMP / Prev Treat...XOR=[id number]. of containers..01 CYTYC Thin Prep VialPATIENT NOT FASTINGClinical Information: ADD [id number] PERFORMED BY: payasUgym [address] [id number] Thin prep Pap (54955) . Normal [facility] prehensive Internal Medicine Work Phone: Comment on above: Source.............C ervical;EndocervicalLMP / Prev Treat...HAV=[id number]. of containers..01 CYTYC Thin Prep VialPATIENT NOT FASTINGClinical Information: ADD [id number] PERFORMED BY: payasUgym [address] [id number] Thin prep Pap ([id number]) PAPSMR Normal [facility] prehensive Internal Medicine Work Phone: Comment on [...] was performed. . Source.............C ervical;EndocervicalLMP / Prev Treat...SBW=[id number]. of containers..01 CYTYC Thin Prep VialPATIENT NOT FASTINGClinical Information: ADD [id number] PERFORMED BY: payasUgym [address] [id number] Clostridium difficile detect ion by polymerase chain reaction C. difficile DNA BAM+probe Ql (Unsp spec) [facility] Work Phone: ECG B/O W INTERP (MED OFFICE ) [facility] EP Panel Gastrointestinal pathogens panel BAM+probe (Stl) [facility] Work Phone: No Panel Information Enteric Bacteriology [facility] Work Phone: Stool lactoferrin detection by immunoassay Lactoferrin IA Ql (Stl) [facility] Work Phone: Vital Signs Date Time Vital Sign Value Performing Clinician Facility 03-08-2025 09:31-0400 Body height 175.[address] Nathan Guzman DO Work Phone: [facility] 03-08-2025 09:31-0400 Body mass index (BMI) [Ratio] 27.4 kg/m2 Dr. Nathan Guzman DO Work Phone: [facility] 03-08-2025 09:31-0400 Body weight 84.[address] Nathan Guzman DO Work Phone: [facility] 03-08-2025 09:31-0400 Diastolic blood pressure 89 mm[Hg] Dr. Nathan Guzman DO Work Phone: [facility] 03-08-2025 09:31-0400 Heart rate 81 /min Dr. Nathan Guzman DO Work Phone: [facility] 03-08-2025 09:31-0400 Respiratory rate 18 /min Dr. Nathan Guzman DO Work Phone: [facility] 03-08-2025 09:31-0400 SaO2% (BldA) [Mass fraction] 98 % Dr. Nathan Guzman DO Work Phone: [facility] 03-08-2025 09:31-0400 Systolic blood pressure 121 mm[Hg] Dr. Nathan ash DO Work Phone: [facility] 01-02-2025 17:15-0400 Diastolic blood pressure 91 mm[Hg] Dr. Nathan Guzman DO Work Phone: [facility] 01-02-2025 17:15-0400 Heart rate 62 /min Dr. Nathan Guzman DO Work Phone: [facility] 01-02-2025 17:15-0400 Respiratory rate 16 /min Dr. Nathan Guzman DO Work Phone: [facility] 01-02-2025 17:15-0400 SaO2% (BldA) [Mass fraction] 99 % Dr. Nathan Guzman DO Work Phone: [facility] 01-02-2025 17:15-0400 Systolic blood pressure 134 mm[Hg] Dr. Nathan ash DO Work Phone: [facility] 01-02-2025 16:13-0400 Body temperature 98 [degF] Dr. Nathan Guzman DO Work Phone: [facility] 01-02-2025 15:11-0400 Body height 175.[address] Nathan Guzman DO Work Phone: [facility] 01-02-2025 15:11-0400 Body mass index (BMI) [Ratio] 27.6 kg/m2 Dr. Nathan Guzman DO Work Phone: [facility] 01-02-2025 15:11-0400 Body weight 84.[address] Nathan Guzman DO Work Phone: [facility] 09-23-2024 08:27-0500 Body mass index (BMI) [Ratio] 26.7 kg/m2 Dr. Nathan Guzman DO Work Phone: [facility] 09-23-2024 08:27-0500 Body weight 82.[address] Nathan Guzman DO Work Phone: [facility] 09-23-2024 08:27-0500 Diastolic blood pressure 79 mm[Hg] Dr. Nathan Guzman DO Work Phone: [facility] 09-23-2024 08:27-0500 Heart rate 66 /min Dr. Nathan Guzman DO Work Phone: [facility] 09-23-2024 08:27-0500 Respiratory rate 18 /min Dr. Nathan Guzman DO Work Phone: [facility] 09-23-2024 08:27-0500 Systolic blood pressure 112 mm[Hg] Dr. Nathan ash DO Work Phone: [facility] 08-12-2024 08:58-0500 Body height 175.[address] Nathan Guzman DO Work Phone: [facility] 08-12-2024 08:58-0500 Body weight 80.[address] Nathan Guzman DO Work Phone: [facility] 07-14-2024 15:52-0500 Body weight 80.[address] Nathan Guzman DO Work Phone: [facility] 06-17-2024 13:22-0500 Body mass index (BMI) [Ratio] 26.4 kg/m2 Dr. Nathan Guzman DO Work Phone: [facility] 06-17-2024 13:22-0500 Diastolic blood pressure 86 mm[Hg] Dr. Nathan Guzman DO Work Phone: [facility] 06-17-2024 13:22-0500 Heart rate 69 /min Dr. Nathan Guzman DO Work Phone: [facility] 06-17-2024 13:22-0500 SaO2% (BldA) [Mass fraction] 97 % Dr. Nathan Guzman DO Work Phone: [facility] 06-17-2024 13:22-0500 Systolic blood pressure 120 mm[Hg] Dr. Nathan ash DO Work Phone: [facility] 06-17-2024 13:12-0500 Body weight 81.[address] Nathan Guzman DO Work Phone: [facility] 06-14-2024 13:56-0500 Body mass index (BMI) [Ratio] 26.99 kg/m2 Rudy Muoh DO Work Phone: [facility] 06-14-2024 13:56-0500 Body weight 80.51 kg Rudy Muoh DO Work Phone: [facility] 06-14-2024 13:56-0500 Diastolic blood pressure 100 mm[Hg] Rduy Muoh DO Work Phone: [facility] 06-14-2024 13:56-0500 Heart rate 86 /min Rudy Muoh DO Work Phone: [facility] 06-14-2024 13:56-0500 Systolic blood pressure 145 mm[Hg] Rudy Muoh DO Work Phone: [facility] 04-27-2024 14:49-0400 Body height 175.3 cm Sam Laffey WEBLOGIC DEVELOPER.AIRCRAFT MAINTENANCE ENGINEER Work Phone: [facility] 04-27-2024 14:49-0400 Body mass index (BMI) [Ratio] 25.43 kg/m2 Sam Laffey WEBLOGIC DEVELOPER.AIRCRAFT MAINTENANCE ENGINEER Work Phone: [facility] 04-27-2024 14:49-0400 Body temperature 98.6 [degF] Sam Laffey WEBLOGIC DEVELOPER.AIRCRAFT MAINTENANCE ENGINEER Work Phone: [facility] 04-27-2024 14:49-0400 Body weight 78.11 kg Sam Laffey WEBLOGIC DEVELOPER.AIRCRAFT MAINTENANCE ENGINEER Work Phone: [facility] 04-27-2024 14:49-0400 Diastolic blood pressure 79 mm[Hg] Sam Laffey WEBLOGIC DEVELOPER.AIRCRAFT MAINTENANCE ENGINEER Work Phone: [facility] 04-27-2024 14:49-0400 Heart rate 105 /min Sam Laffey WEBLOGIC DEVELOPER.AIRCRAFT MAINTENANCE ENGINEER Work Phone: [facility] 04-27-2024 14:49-0400 SaO2% (BldA) [Mass fraction] 96 % Sam Maria Guadalupe WEBLOGIC DEVELOPER.AIRCRAFT MAINTENANCE ENGINEER Work Phone: [facility] 04-27-2024 14:49-0400 Systolic blood pressure 128 mm[Hg] Sam Maria Guadalupe WEBLOGIC DEVELOPER.AIRCRAFT MAINTENANCE ENGINEER Work Phone: [facility] 04-15-2024 08:15-0400 SaO2% (BldA) [Mass fraction] 98 % JOSEPH GREENWOOD [facility] Comment on above: Order Comment: Specimen Type: ARTERIAL B LOOD SPECIMENOrdering Facility: [facility] Address: [address] [place] [address] Performed By: #### A LLBG ####[facility] [id number] [address] [place] 04-15-2024 03:27-0400 SaO2% (BldA) [Mass fraction] 99 % JOSEPH GREENWOOD [facility] Comment on above: Order Comment: Specimen Type: ARTERIAL B LOOD SPECIMENOrdering Facility: [facility] Address: [address] [place] [address] Performed By: #### A LLBG ####[facility] [id number] [address] [place] 04-14-2024 23:33-0400 SaO2% (BldA) [Mass fraction] 97 % JOSEPH GREENWOOD [facility] Comment on above: Order Comment: Specimen Type: ARTERIAL B LOOD SPECIMENOrdering Facility: [facility] Address: [address] [place] [address] Performed By: #### A LLBG ####[facility] [id number] [address] [place] 04-14-2024 19:47-0400 SaO2% (BldA) [Mass fraction] 98 % NA TIMO [facility] Comment on above: Order Comment: Specimen Type: ARTERIAL B LOOD SPECIMENOrdering Facility: [facility] Address: [address] [place], [place] [id number] Performed By: #### A LLBG ####[facility] [id number] [address] [address] [place] 04-14-2024 16:18-0400 SaO2% (BldA) [Mass fraction] 98 % NA TIMO [facility] Comment on above: Order Comment: Specimen Type: ARTERIAL B LOOD SPECIMENOrdering Facility: [facility] Address: [address] [place], [place] [id number] Performed By: #### A LLBG ####[facility] [id number] [place] [id number] [place] 04-14-2024 14:24-0400 SaO2% (BldA) [Mass fraction] 97 % NA TIMO [facility] Comment on above: Order Comment: Specimen Type: ARTERIAL B LOOD SPECIMENOrdering Facility: [facility] Address: [address] [place], [place] [address] Performed By: #### A LLBG ####[facility] [id number] [place] [id number] [place] 04-14-2024 12:56-0400 SaO2% (BldA) [Mass fraction] 99 % NA TIMO [facility] Comment on above: Order Comment: Specimen Type: ARTERIAL B LOOD SPECIMENOrdering Facility: [facility] Address: [address] [place], [place] [address] Performed By: #### A LLBG ####[facility] [id number] [address] [address] [place] 04-14-2024 12:06-0400 SaO2% (BldA) [Mass fraction] 100 % NA TIMO [facility] Comment on above: Order Comment: Specimen Type: ARTERIAL B LOOD SPECIMENOrdering Facility: [facility] Address: [address] [place], [place] [address] Performed By: #### A LLBG ####[facility] LABCLIA [id number] [place] [id number] [place] 04-14-2024 11:49-0400 SaO2% (BldA) [Mass fraction] 100 % NA TIMO [facility] Comment on above: Order Comment: Specimen Type: ARTERIAL B LOOD SPECIMENOrdering Facility: [facility] Address: [address] [place], [place] [address] Performed By: #### A LLBG ####[facility] [id number] [place] [id number] [place] 04-14-2024 11:19-0400 SaO2% (BldA) [Mass fraction] 100 % NA TIMO [facility] Comment on above: Order Comment: Specimen Type: ARTERIAL B LOOD SPECIMENOrdering Facility: [facility] Address: [address] [place] [address] Performed By: #### A LLBG ####[facility] [id number] [place] [id number] [place] 04-14-2024 10:44-0400 SaO2% (BldA) [Mass fraction] 100 % NA TIMO [facility] Comment on above: Order Comment: Specimen Type: ARTERIAL B LOOD SPECIMENOrdering Facility: [facility] Address: [address] [place], [place] [address] Performed By: #### A LLBG ####[facility] [id number] [place] [id number] [place] 04-14-2024 10:22-0400 SaO2% (BldA) [Mass fraction] 99 % NA TIMO [facility] Comment on above: Order Comment: Specimen Type: ARTERIAL B LOOD SPECIMENOrdering Facility: [facility] Address: [address] [place], [place] [address] Performed By: #### A LLBG ####[facility] LABCLIA [id number] [place] [id number] [place] 04-14-2024 08:16-0400 SaO2% (BldA) [Mass fraction] 99 % JOSEPH GREENWOOD [facility] Comment on above: Order Comment: Specimen Type: ARTERIAL B LOOD SPECIMENOrdering Facility: [facility] Address: [address] [place] [address] Performed By: #### A LLBG ####[facility] [id number] [place] [id number] [place] 04-12-2024 08:33-0400 Diastolic blood pressure 92 mm[Hg] Jeyson Hoff MD Work Phone: [facility] 04-12-2024 08:33-0400 Systolic blood pressure 148 mm[Hg] Jeyson Hoff MD Work Phone: [facility] 04-12-2024 08:31-0400 Body height 172.7 cm Jeyson Hoff MD Work Phone: [facility] 04-12-2024 08:31-0400 Body mass index (BMI) [Ratio] 26.65 kg/m2 Jeyson Hoff MD Work Phone: [facility] 04-12-2024 08:31-0400 Body weight 79.52 kg Jeyson Hoff MD Work Phone: [facility] 04-12-2024 08:31-0400 Heart rate 64 /min Jeyson Hoff MD Work Phone: [facility] 04-12-2024 08:31-0400 SaO2% (BldA) [Mass fraction] 97 % Jeyson Hoff MD Work Phone: [facility] 02-24-2024 13:46-0400 Body height 175.3 cm Maulik Mitchell MD Work Phone: [facility] Comment on above: Patient reports. 02-24-2024 13:46-0400 Body mass index (BMI) [Ratio] 25.93 kg/m2 Maulik Mitchell MD Work Phone: [facility] 02-24-2024 13:46-0400 Body weight 79.65 kg Maulik Mitchell MD Work Phone: [facility] Comment on above: Fully clothed with shoes off 02-24-2024 13:46-0400 Diastolic blood pressure 80 mm[Hg] Maulik Mitchell MD Work Phone: [facility] 02-24-2024 13:46-0400 Heart rate 80 /min Maulik Mitchell MD Work Phone: [facility] 02-24-2024 13:46-0400 SaO2% (BldA) [Mass fraction] 98 % Maulik Mitchell MD Work Phone: [facility] 02-24-2024 13:46-0400 Systolic blood pressure 110 mm[Hg] Maulik Huffman Work Phone: [facility] 01-09-2024 14:52-0400 Body height 175.3 cm Troy Byrd WEBLOGIC DEVELOPER.AIRCRAFT MAINTENANCE ENGINEER Work Phone: [facility] 01-09-2024 14:52-0400 Body mass index (BMI) [Ratio] 25.7 kg/m2 Troy Byrd APRN.AIRCRAFT MAINTENANCE ENGINEER Work Phone: [facility] 01-09-2024 14:52-0400 Body weight 78.93 kg Troy Byrd APRN.AIRCRAFT MAINTENANCE ENGINEER Work Phone: [facility] 01-09-2024 14:52-0400 Diastolic blood pressure 81 mm[Hg] Troy Byrd WEBLOGIC DEVELOPER.AIRCRAFT MAINTENANCE ENGINEER Work Phone: [facility] 01-09-2024 14:52-0400 Heart rate 85 /min Troy Byrd WEBLOGIC DEVELOPER.AIRCRAFT MAINTENANCE ENGINEER Work Phone: [facility] 01-09-2024 14:52-0400 Respiratory rate 18 /min Troy Byrd WEBLOGIC DEVELOPER.AIRCRAFT MAINTENANCE ENGINEER Work Phone: [facility] 01-09-2024 14:52-0400 SaO2% (BldA) [Mass fraction] 97 % Troy Byrd APRN.AIRCRAFT MAINTENANCE ENGINEER Work Phone: [facility] 01-09-2024 14:52-0400 Systolic blood pressure 130 mm[Hg] Troy Byrd APRN.AIRCRAFT MAINTENANCE ENGINEER Work Phone: [facility] 11-20-2023 05:25-0400 Body temperature 98.6 [degF] Dr. Nathan Guzman Work Phone: [facility] 11-20-2023 05:25-0400 Diastolic blood pressure 62 mm[Hg] Dr. Nathan Guzman Work Phone: [facility] 11-20-2023 05:25-0400 Heart rate 80 /min Dr. Nathan Guzman Work Phone: [facility] 11-20-2023 05:25-0400 Respiratory rate 18 /min Dr. Nathan Guzman Work Phone: [facility] 11-20-2023 05:25-0400 SaO2% (BldA) [Mass fraction] 96 % Dr. Nathan Guzman Work Phone: [facility] 11-20-2023 05:25-0400 Systolic blood pressure 111 mm[Hg] Dr. Nathan ash Work Phone: [facility] 11-20-2023 02:51-0400 Body height 175.[address] Nathan Guzman Work Phone: [facility] 11-20-2023 02:51-0400 Body mass index (BMI) [Ratio] 25.7 kg/m2 Dr. Nathan Guzman Work Phone: [facility] 11-20-2023 02:51-0400 Body weight 78.[address] Nathan Guzman Work Phone: [facility] 10-09-2023 14:19-0400 Body mass index (BMI) [Ratio] 26.1 kg/m2 Dr. Nathan Guzman Work Phone: [facility] 10-09-2023 14:19-0400 Body weight 80.[address] Nathan Guzman Work Phone: [facility] 10-09-2023 14:19-0400 Diastolic blood pressure 71 mm[Hg] Dr. Nathan Guzman Work Phone: [facility] 10-09-2023 14:19-0400 Heart rate 71 /min Dr. Nathan Guzman Work Phone: [facility] 10-09-2023 14:19-0400 Respiratory rate 16 /min Dr. Nathan Guzman Work Phone: [facility] 10-09-2023 14:19-0400 Systolic blood pressure 129 mm[Hg] Dr. Nathan ash Work Phone: [facility] 04-07-2023 15:14-0400 Body height 175.[address] Nathan Guzman Work Phone: [facility] 04-07-2023 15:08-0400 Body mass index (BMI) [Ratio] 26.2 kg/m2 Dr. Nathan Guzman Work Phone: [facility] 04-07-2023 15:08-0400 Body weight 80.[address] Nathan Guzman Work Phone: [facility] 04-07-2023 15:08-0400 Diastolic blood pressure 83 mm[Hg] Dr. Nathan Guzman Work Phone: [facility] 04-07-2023 15:08-0400 Heart rate 83 /min Dr. Nathan Guzman Work Phone: [facility] 04-07-2023 15:08-0400 Respiratory rate 16 /min Dr. Nathan Guzman Work Phone: [facility] 04-07-2023 15:08-0400 Systolic blood pressure 128 mm[Hg] Dr. Nathan ash Work Phone: [facility] 01-15-2023 11:22-0400 Body height 175.3 cm Naomy Thomas MD Work Phone: [facility] 01-15-2023 11:22-0400 Body weight 80.74 kg Naomy Thomas MD Work Phone: [facility] 01-15-2023 11:22-0400 Diastolic blood pressure 98 mm[Hg] Naomy Thomas MD Work Phone: [facility] 01-15-2023 11:22-0400 Heart rate 62 /min Naomy Thomas MD Work Phone: [facility] 01-15-2023 11:22-0400 SaO2% (BldA) [Mass fraction] 95 % Naomy Thomas MD Work Phone: [facility] 01-15-2023 11:22-0400 Systolic blood pressure 141 mm[Hg] Naomy rodriguez MD Work Phone: [facility] 01-06-2023 14:02-0400 Body height 173.99 cm Nathan Coto Wardrobe Housekeeper Work Phone: [facility] 2500 DO Work Phone: 01-06-2023 14:02-0400 Body mass index (BMI) [Ratio] 27.27 kg/m2 Nathan Nnamdi Megan Work Phone: [facility] 2500 DO Work Phone: 01-06-2023 14:02-0400 Body surface area Derived from formula 1.97 m2 Nathan Coto Wardrobe Housekeeper Work Phone: [facility] 2500 DO Work Phone: 01-06-2023 14:02-0400 Body weight 82.56 kg Nathan Katutzman Work Phone: [facility] 2500 DO Work Phone: 01-06-2023 14:02-0400 Diastolic blood pressure 85 mm[Hg] Nathan Katutzman Work Phone: [facility] 2500 DO Work Phone: 01-06-2023 14:02-0400 Heart rate 62 /min Nathan Guzman Work Phone: [facility] 2500 DO Work Phone: 01-06-2023 14:02-0400 Systolic blood pressure 128 mm[Hg] Nathan Guzman Work Phone: [facility] 2500 DO Work Phone: 01-02-2023 13:02-0400 Body height 175.[address] Nathan Guzman Work Phone: [facility] 01-02-2023 13:02-0400 Body mass index (BMI) [Ratio] 26.7 kg/m2 Dr. Nathan Guzman Work Phone: [facility] 01-02-2023 13:02-0400 Body weight 82.[address] Nathan Guzman Work Phone: [facility] 01-02-2023 13:02-0400 Diastolic blood pressure 81 mm[Hg] Dr. Nathan Guzman Work Phone: [facility] 01-02-2023 13:02-0400 Heart rate 71 /min Dr. Nathan Guzman Work Phone: [facility] 01-02-2023 13:02-0400 Respiratory rate 16 /min Dr. Nathan Guzman Work Phone: [facility] 01-02-2023 13:02-0400 Systolic blood pressure 118 mm[Hg] Dr. Nahtan ash Work Phone: [facility] 12-25-2022 01:28-0400 Diastolic blood pressure 76 mm[Hg] Dr. Nathan Guzman Work Phone: [facility] 12-25-2022 01:28-0400 Heart rate 102 /min Dr. Nathan Guzman Work Phone: [facility] 12-25-2022 01:28-0400 Respiratory rate 16 /min Dr. Nathan Guzman Work Phone: [facility] 12-25-2022 01:28-0400 SaO2% (BldA) [Mass fraction] 97 % Dr. Nathan Guzman Work Phone: [facility] 12-25-2022 01:28-0400 Systolic blood pressure 108 mm[Hg] Dr. Nathan ash Work Phone: [facility] 12-24-2022 23:45-0400 Body height 175.[address] Nathan Guzman Work Phone: [facility] 12-24-2022 23:45-0400 Body mass index (BMI) [Ratio] 27.5 kg/m2 Dr. Nathan Guzman Work Phone: [facility] 12-24-2022 23:45-0400 Body temperature 98.2 [degF] Dr. Nathan Guzman Work Phone: [facility] 12-24-2022 23:45-0400 Body weight 84.[address] Nathan Guzman Work Phone: [facility] 12-18-2022 12:08-0400 Diastolic blood pressure 74 mm[Hg] Dr. Nathan Guzman Work Phone: [facility] 12-18-2022 12:08-0400 Heart rate 81 /min Dr. Nathan Guzman Work Phone: [facility] 12-18-2022 12:08-0400 Respiratory rate 16 /min Dr. Nathan Guzman Work Phone: [facility] 12-18-2022 12:08-0400 SaO2% (BldA) [Mass fraction] 97 % Dr. Nathan Guzman Work Phone: [facility] 12-18-2022 12:08-0400 Systolic blood pressure 126 mm[Hg] Dr. Nathan ash Work Phone: [facility] 12-18-2022 07:19-0400 Body mass index (BMI) [Ratio] 26.9 kg/m2 Dr. Nathan Guzman Work Phone: [facility] 12-18-2022 07:19-0400 Body temperature 98 [degF] Dr. Nathan Guzman Work Phone: [facility] 12-18-2022 07:19-0400 Body weight 82.[address] Nathan Guzman Work Phone: [facility] 11-11-2022 14:42-0400 Body height 175.[address] Nathan Guzman Work Phone: [facility] 11-11-2022 14:42-0400 Body mass index (BMI) [Ratio] 27.4 kg/m2 Dr. Nathan Guzman Work Phone: [facility] 11-11-2022 14:42-0400 Body weight 84.[address] Nathan Guzman Work Phone: [facility] 11-11-2022 14:42-0400 Diastolic blood pressure 81 mm[Hg] Dr. Nathan Guzman Work Phone: [facility] 11-11-2022 14:42-0400 Heart rate 94 /min Dr. Nathan Guzman Work Phone: [facility] 11-11-2022 14:42-0400 Respiratory rate 16 /min Dr. Nathan Guzman Work Phone: [facility] 11-11-2022 14:42-0400 Systolic blood pressure 121 mm[Hg] Dr. Nathan ash Work Phone: [facility] 06-25-2022 11:35-0500 Body height 175.[address] Nathan Gzuman Work Phone: [facility] Work Phone: 06-25-2022 11:35-0500 Body mass index (BMI) [Ratio] 28.9 kg/m2 Dr. Nathan Guzman Work Phone: [facility] Work Phone: 06-25-2022 11:35-0500 Body weight 88.[address] Nathan Guzman Work Phone: [facility] Work Phone: 06-25-2022 11:35-0500 Diastolic blood pressure 91 mm[Hg] Dr. Nathan Guzman Work Phone: [facility] Work Phone: 06-25-2022 11:35-0500 Heart rate 91 /min Dr. Nathan Guzman Work Phone: [facility] Work Phone: 06-25-2022 11:35-0500 SaO2% (BldA) [Mass fraction] 95 % Dr. Nathan Guzman Work Phone: [facility] Work Phone: 06-25-2022 11:35-0500 Systolic blood pressure 135 mm[Hg] Dr. Nathan Crenshaw n Work Phone: [facility] Work Phone: 05-01-2022 12:25-0400 Body temperature 98.3 [degF] EMPLOYEE BENEFITS COORDINATOR-C Shilpa Taia EMPLOYEE BENEFITS COORDINATOR Work Phone: [facility] Work Phone: 05-01-2022 12:25-0400 Diastolic blood pressure 73 mm[Hg] EMPLOYEE BENEFITS COORDINATOR-C Shilpa Ciesa EMPLOYEE BENEFITS COORDINATOR Work Phone: [facility] Work Phone: 05-01-2022 12:25-0400 Heart rate 64 /min EMPLOYEE BENEFITS COORDINATOR-C Shilpa Ciesa EMPLOYEE BENEFITS COORDINATOR Work Phone: [facility] Work Phone: 05-01-2022 12:25-0400 Respiratory rate 16 /min EMPLOYEE BENEFITS COORDINATOR-C Shilpa Rosales EMPLOYEE BENEFITS COORDINATOR Work Phone: [facility] Work Phone: 05-01-2022 12:25-0400 SaO2% (BldA) [Mass fraction] 98 % EMPLOYEE BENEFITS COORDINATOR-C Shilpa Rosales EMPLOYEE BENEFITS COORDINATOR Work Phone: [facility] Work Phone: 05-01-2022 12:25-0400 Systolic blood pressure 119 mm[Hg] EMPLOYEE BENEFITS COORDINATOR-C Shilpa Rosales EMPLOYEE BENEFITS COORDINATOR Work Phone: [facility] Work Phone: 05-01-2022 10:59-0400 Body height 175.26 cm EMPLOYEE BENEFITS COORDINATOR-C Shilpa Rosales EMPLOYEE BENEFITS COORDINATOR Work Phone: [facility] Work Phone: 05-01-2022 10:59-0400 Body mass index (BMI) [Ratio] 27.8 kg/m2 EMPLOYEE BENEFITS COORDINATOR-C Shilpa Rosales EMPLOYEE BENEFITS COORDINATOR Work Phone: [facility] Work Phone: 05-01-2022 10:59-0400 Body weight 85.72 kg EMPLOYEE BENEFITS COORDINATOR-C Shilpa Rosales EMPLOYEE BENEFITS COORDINATOR Work Phone: [facility] Work Phone: 04-18-2022 08:09-0400 Body height 175.26 cm EMPLOYEE BENEFITS COORDINATOR-C Shilpa Rosales EMPLOYEE BENEFITS COORDINATOR Work Phone: [facility] Work Phone: 04-18-2022 08:09-0400 Body mass index (BMI) [Ratio] 27.3 kg/m2 EMPLOYEE BENEFITS COORDINATOR-C Shilpa Rosales EMPLOYEE BENEFITS COORDINATOR Work Phone: [facility] Work Phone: 04-18-2022 08:09-0400 Body weight 83.91 kg EMPLOYEE BENEFITS COORDINATOR-C Shilpa Rosales EMPLOYEE BENEFITS COORDINATOR Work Phone: [facility] Work Phone: 04-13-2022 13:38-0400 Diastolic blood pressure 74 mm[Hg] EMPLOYEE BENEFITS COORDINATOR-C Shilpa Rosales EMPLOYEE BENEFITS COORDINATOR Work Phone: [facility] Work Phone: 04-13-2022 13:38-0400 Heart rate 84 /min EMPLOYEE BENEFITS COORDINATOR-C Shilpa Taia EMPLOYEE BENEFITS COORDINATOR Work Phone: [facility] Work Phone: 04-13-2022 13:38-0400 Respiratory rate 18 /min EMPLOYEE BENEFITS COORDINATOR-C Shilpa Taia EMPLOYEE BENEFITS COORDINATOR Work Phone: [facility] Work Phone: 04-13-2022 13:38-0400 SaO2% (BldA) [Mass fraction] 99 % EMPLOYEE BENEFITS COORDINATOR-C Shilpa Rosales EMPLOYEE BENEFITS COORDINATOR Work Phone: [facility] Work Phone: 04-13-2022 13:38-0400 Systolic blood pressure 123 mm[Hg] EMPLOYEE BENEFITS COORDINATOR-C Shilpa Rosales EMPLOYEE BENEFITS COORDINATOR Work Phone: [facility] Work Phone: 04-13-2022 12:06-0400 Body height 175.26 cm EMPLOYEE BENEFITS COORDINATOR-C Shilpa Rosales EMPLOYEE BENEFITS COORDINATOR Work Phone: [facility] Work Phone: 04-13-2022 12:06-0400 Body mass index (BMI) [Ratio] 28.3 kg/m2 EMPLOYEE BENEFITS COORDINATOR-C Shilpa Taia EMPLOYEE BENEFITS COORDINATOR Work Phone: [facility] Work Phone: 04-13-2022 12:06-0400 Body temperature 97 [degF] EMPLOYEE BENEFITS COORDINATOR-C Shilpa Rosales EMPLOYEE BENEFITS COORDINATOR Work Phone: [facility] Work Phone: 04-13-2022 12:06-0400 Body weight 87 kg EMPLOYEE BENEFITS COORDINATOR-C Shilpa Taia EMPLOYEE BENEFITS COORDINATOR Work Phone: [facility] Work Phone: 03-26-2021 14:52-0400 Body height 170.18 cm Adelaide Alvarenga LPN [facility]; [facility] Work Phone: 03-26-2021 14:52-0400 Body mass index (BMI) [Ratio] 30.23 kg/m2 Adelaide Alvarenga LPN [facility]; [facility] Work Phone: 03-26-2021 14:52-0400 Body surface area Derived from formula 1.99 m2 Adelaide Alvarenga RAMILA [facility]; [facility] Work Phone: 03-26-2021 14:52-0400 Body temperature 96.6 [degF] Adelaide Alvarenga LPN [facility]; [facility] Work Phone: Comment on above: Method: Temporal 03-26-2021 14:52-0400 Body weight 87.54 kg Adelaide Alvarenga LPN [facility]; [facility] Work Phone: 03-26-2021 14:52-0400 Diastolic blood pressure 88 mm[Hg] Adelaide Alvarenga ARMILA [facility]; [facility] Work Phone: Comment on above: Patient Position: Sitting; Cuff Location : Left Arm; Cuff Size: Standard 03-26-2021 14:52-0400 Heart rate 116 /min Adelaide Alvarenga RAMILA [facility]; [facility] Work Phone: Comment on above: Pattern: Regular 03-26-2021 14:52-0400 Respiratory rate 16 /min Adelaide Alvarenga RAMILA [facility]; [facility] Work Phone: Comment on above: Pattern: Unlabored 03-26-2021 14:52-0400 SaO2% (BldA) [Mass fraction] 99 % Adelaide Alvarenga RAMILA [facility]; [facility] Work Phone: Comment on above: Room air 03-26-2021 14:52-0400 Systolic blood pressure 112 mm[Hg] [facility]; [facility] Work Phone: Comment on above: Patient Position: Sitting; Cuff Location : Left Arm; Cuff Size: Standard 03-23-2021 08:34-0400 Body height 170.18 cm Adelaide Alvarenga [facility]; [facility] Work Phone: Comment on above: Virtual appt 03-23-2021 08:34-0400 Body mass index (BMI) [Ratio] 30.23 kg/m2 Adelaide Alvarenga [facility]; [facility] Work Phone: Comment on above: Virtual appt 03-23-2021 08:34-0400 Body surface area Derived from formula 1.99 m2 [facility]; [facility] Work Phone: Comment on above: Virtual appt 03-23-2021 08:34-0400 Body weight 87.54 kg Adelaide Alvarenga [facility]; [facility] Work Phone: Comment on above: Virtual appt 03-13-2021 12:25-0400 Body height 170.18 cm [facility]; [facility] Work Phone: 03-13-2021 12:25-0400 Body mass index (BMI) [Ratio] 30.23 [facility]2 [facility]; [facility] Work Phone: 03-13-2021 12:25-0400 Body surface area Derived from formula 1.99 m2 Judyakbar Garcia [facility]; [facility] Work Phone: 03-13-2021 12:25-0400 Body temperature 97.1 [degF] [facility]; [facility] Work Phone: Comment on above: Method: Thermal Scan 03-13-2021 12:25-0400 Body weight 87.54 kg [facility]; [facility] Work Phone: 03-13-2021 12:25-0400 Diastolic blood pressure 86 mm[Hg] Judy Garcia [facility]; [facility] Work Phone: Comment on above: Patient Position: Sitting; Cuff Location : Left Arm; Cuff Size: Standard 08-17-2021 12:25-0400 Heart rate 89 /min Judy Garcia [facility]; [facility] Work Phone: Comment on above: Pattern: Regular 03-13-2021 12:25-0400 Respiratory rate 16 /min Judy Garcia [facility]; [facility] Work Phone: Comment on above: Pattern: Unlabored 03-13-2021 12:25-0400 SaO2% (BldA) [Mass fraction] 98 % Judy Garcia [facility]; [facility] Work Phone: Comment on above: Room air 03-13-2021 12:25-0400 Systolic blood pressure 124 mm[Hg] Judy Garcia [facility]; [facility] [...] BSA (Body Surface Area) 1.99 m2 Andrew Stewatr LPN Compre[facility] Work Phone: [...] 13:40-0500 Body weight 87.54 kg Cally Bales LPN [facility] Work Phone: 06-28-2019 13:40-0500 BP Diastolic 86 mm[Hg] Cally Bales LPN [facility] Work Phone: Comment on above: Patient Position: Sitting; Cuff Location : Left Arm; Cuff Size: Standard 06-28-2019 13:40-0500 BP Systolic 142 mm[Hg] Cally Bales LPN [facility] Work [...] (BldA) [Mass fraction] 98 % Cally Bales LPN [facility]; [facility] Work Phone: Comment on above: Room air 06-16-2018 10:26-0500 BMI (Body Mass Index) 31.38 kg/m2 Janet Sequeiralear Comprehens gian [facility] Work Phone: 06-16-2018 10:26-0500 Body Temperature 98.5 [degF] Janet Reji [facility] Work Phone: Comment on above: Method: Temporal 06-16-2018 10:26-0500 Body weight 90.89 kg Janet Reji [facility] Work Phone: 06-16-2018 10:26-0500 BP Diastolic 88 mm[Hg] Janet Mendoza [facility] Work Phone: Comment on above: Patient Position: Sitting; Cuff Location : Left Arm; Cuff Size: Standard 06-16-2018 10:26-0500 BP Systolic 130 mm[Hg] Janet Mendoza [facility] Work Phone: Comment on above: Patient Position: Sitting; Cuff Location : Left Arm; Cuff Size: Standard 06-16-2018 10:26-0500 BSA (Body Surface Area) 2.02 m2 Janet Velasqueze nsive [facility] Work Phone: 06-16-2018 10:26-0500 Height 170.18 cm Janet Mendoza [facility] Work Phone: 06-16-2018 10:26-0500 Pulse (Heart Rate) 94 /min Janet Mendoza [facility] Work Phone: Comment on above: Pattern: Regular 06-16-2018 10:26-0500 Pulse Oximetry 97 % Shilpa Rosales [facility] Work Phone: Comment on above: Room air 06-16-2018 10:26-0500 Respiratory Rate 17 /min Janet Mendoza [facility] Work Phone: Comment on above: Pattern: Unlabored 06-16-2018 10:26-0500 SaO2% (BldA) [Mass fraction] 97 % Janet Mendoza [facility]; [facility] Work Phone: Comment on above: Room air 06-16-2018 10:26-0500 Weight 90.89 kg Shilpa Rosales [facility] Work Phone: 04-13-2018 14:12-0400 BMI (Body Mass Index) 30.38 kg/m2 Janet Mendoza [facility] Work Phone: 04-13-2018 14:12-0400 Body Temperature 97.4 [degF] Janet Mendoza [facility] Work Phone: Comment on above: Method: Temporal 04-13-2018 14:12-0400 Body weight 88 kg Janet Mendoza [facility] Work Phone: 04-13-2018 14:12-0400 BP Diastolic 84 mm[Hg] Janet Mendoza [facility] Work Phone: Comment on above: Patient Position: Sitting; Cuff Location : Left Arm; Cuff Size: Standard 04-13-2018 14:12-0400 BP Systolic 126 mm[Hg] Janet Mendoza [facility] Work Phone: Comment on above: Patient Position: Sitting; Cuff Location : Left Arm; Cuff Size: Standard 04-13-2018 14:12-0400 BSA (Body Surface Area) 2 m2 [facility] Work Phone: 04-13-2018 14:12-0400 Height 170.18 cm Janet Mendoza [facility] Work Phone: 04-13-2018 14:12-0400 Pulse (Heart Rate) 105 /min Janet Mendoza [facility] Work Phone: Comment on above: Pattern: Regular 04-13-2018 14:12-0400 Pulse Oximetry 97 % Shilpa Rosales [facility] Work Phone: Comment on above: Room air 04-13-2018 14:12-0400 Respiratory Rate 18 /min aJnet Mendoza [facility] Work Phone: Comment on above: Pattern: Unlabored 04-13-2018 14:12-0400 SaO2% (BldA) [Mass fraction] 97 % Janet Mendoza [facility]; [facility] Work Phone: Comment on above: Room air 04-13-2018 14:12-0400 Weight 88 kg Shilpa Rosales [facility] Work Phone: 05-05-2017 [id number] BMI (Body Mass Index) 29.84 kg/m2 Cally Bales LPN Comprehen s[facility] Work Phone: 05-05-2017 10:07-0400 Body Temperature 97.7 [degF] Cally Bales LPN [facility] Work Phone: 05-05-2017 10:07-0400 Body weight 86.41 kg Cally Bales LPN [facility] Work Phone: 05-05-2017 10:07-0400 BP Diastolic 86 mm[Hg] Cally Bales [employer] [facility] Work Phone: Comment on above: Patient Position: Sitting; Cuff Location : Left Arm; Cuff Size: Standard 05-05-2017 10:07-0400 BP Systolic 122 mm[Hg] Cally Bales [employer] [facility] Work Phone: Comment on above: Patient Position: Sitting; Cuff Location : Left Arm; Cuff Size: Standard 05-05-2017 10:07-0400 BSA (Body Surface Area) 1.98 m2 Cally Bales [employer] [facility] Work Phone: 05-05-2017 10:07-0400 Height 170.18 cm Cally Bales [employer] [facility] Work Phone: 05-05-2017 10:07-0400 Pulse (Heart Rate) 89 /min Cally Bales LPN Comprehens[facility] e [facility] Work Phone: Comment on above: Pattern: Regular 05-05-2017 10:07-0400 Pulse Oximetry 98 % Shilpa Rosales [facility] Work Phone: Comment on above: Room air 05-05-2017 10:07-0400 Respiratory Rate 17 /min Cally Bales LPN [facility] Work Phone: Comment on above: Pattern: Unlabored 05-05-2017 10:07-0400 SaO2% (BldA) [Mass fraction] 98 % Cally Bales [employer] [facility]; [facility] Work Phone: Comment on above: Room air 05-05-2017 10:07-0400 Weight 86.41 kg Shilpa Rosales [facility] Work Phone: 03-07-2017 11:32-0400 BMI (Body Mass Index) 30.38 kg/m2 Judy Garcia [facility] Work Phone: 03-07-2017 11:32-0400 Body weight 88 kg Judy Garcia [facility] Work Phone: 03-07-2017 11:32-0400 BP Diastolic 78 mm[Hg] Judy Garcia [facility] Work Phone: Comment on above: Patient Position: Sitting; Cuff Location : Left Arm; Cuff Size: Standard 03-07-2017 11:32-0400 BP Systolic 124 mm[Hg] Judy Garcia [facility] Work Phone: Comment on above: Patient Position: Sitting; Cuff Location : Left Arm; Cuff Size: Standard 03-07-2017 11:32-0400 BSA (Body Surface Area) 2 m2 Judy Garcia [facility] Work Phone: 03-07-2017 11:32-0400 Height 170.18 cm Judy Garcia [facility] Work Phone: 03-07-2017 11:32-0400 Pulse (Heart Rate) 91 /min Judy Garcia [facility] Work Phone: Comment on above: Pattern: Regular 03-07-2017 11:32-0400 Pulse Oximetry 97 % Shilpa Rosales [facility] Work Phone: Comment on above: Room air 03-07-2017 11:32-0400 Respiratory Rate 16 /min Judy Garcia [facility] Work Phone: Comment on above: Pattern: Unlabored 03-07-2017 11:32-0400 SaO2% (BldA) [Mass fraction] 97 % Judy Garcia [facility]; [facility] Work Phone: Comment on above: Room air 03-07-2017 11:32-0400 Weight 88 kg Shilpa Rosales [facility] Work Phone: 04-05-2016 10:41-0400 BMI (Body Mass Index) 30.38 kg/m2 Cally Bales LPN [facility] Work Phone: 04-05-2016 10:41-0400 Body Temperature 97.6 [degF] Cally Bales LPN [facility] Work Phone: 04-05-2016 10:41-0400 Body weight 88 kg Cally Slarb [employer] [facility] Work Phone: 04-05-2016 10:41-0400 BP Diastolic 72 mm[Hg] Cally Slarb [employer] [facility] Work Phone: Comment on above: Patient Position: Sitting; Cuff Location : Left Arm; Cuff Size: Standard 04-05-2016 10:41-0400 BP Systolic 122 mm[Hg] Cally Slarb [employer] [facility] Work Phone: Comment on above: Patient Position: Sitting; Cuff Location : Left Arm; Cuff Size: Standard 04-05-2016 10:41-0400 BSA (Body Surface Area) 2 m2 Cally Slarb [employer] Compreh ensive Internal Medicine Work Phone: 04-05-2016 10:41-0400 Height 170.18 cm Cally Slarb [employer] [facility] Work Phone: 04-05-2016 10:41-0400 Pulse (Heart Rate) 87 /min Cally Slarb [employer] Comprehensiv e Internal Medicine Work Phone: Comment on above: Pattern: Regular 04-05-2016 10:41-0400 Pulse Oximetry 18 % Shilpa Rosales [facility] Work Phone: Comment on above: Room air 04-05-2016 10:41-0400 Respiratory Rate 18 /min Cally Slarb [employer] [facility] Work Phone: Comment on above: Pattern: Unlabored 04-05-2016 10:41-0400 SaO2% (BldA) [Mass fraction] 18 % Cally Slarb [employer] [facility]; [facility] Work Phone: Comment on above: Room air 04-05-2016 10:41-0400 Weight 88 kg Shilpa Rosales [facility] Work Phone: 05-15-2015 15:40-0400 BMI (Body Mass Index) 29.44 kg/m2 Judy Manmakedaabhinav [facility] Work Phone: 05-15-2015 15:40-0400 Body Temperature 97.2 [degF] Judy Garcia [facility] Internal Medicine Work Phone: Comment on above: Method: Oral 05-15-2015 15:40-0400 Body weight 85.28 kg Judy Garcia [facility] Internal Medicine Work Phone: 05-15-2015 15:40-0400 BP Diastolic 70 mm[Hg] Judy Garcia [facility] Internal Medicine Work Phone: Comment on above: Patient Position: Sitting; Cuff Location : Left Arm; Cuff Size: Standard 05-15-2015 15:40-0400 BP Systolic 115 mm[Hg] Judy Garcia [facility] Internal Medicine Work Phone: Comment on above: Patient Position: Sitting; Cuff Location : Left Arm; Cuff Size: Standard 05-15-2015 15:40-0400 BSA (Body Surface Area) 1.97 m2 Judy Garcia [facility] Work Phone: 05-15-2015 15:40-0400 Height 170.18 cm Judy Garcia [facility] Internal Medicine Work Phone: 05-15-2015 15:40-0400 Pulse (Heart Rate) 70 /min Judy Garcia [facility] Internal Medicine Work Phone: Comment on above: Pattern: Regular 05-15-2015 15:40-0400 Pulse Oximetry 98 % Shilpa Rosales [facility] Internal Medicine Work Phone: Comment on above: Room air 05-15-2015 15:40-0400 Respiratory Rate 16 /min Judy Garcia [facility] Work Phone: Comment on above: Pattern: Unlabored 05-15-2015 15:40-0400 SaO2% (BldA) [Mass fraction] 98 % Judy Garcia [facility] Internal Medicine; [facility] Work Phone: Comment on above: Room air 05-15-2015 15:40-0400 Weight 85.28 kg Shilpa Rosales [facility] Internal Medicine Work Phone: 02-10-2015 07:08-0400 BMI [...] Work Phone: 02-10-2015 07:08-0400 Height 170.18 cm dIania Sheridan RN [facility] Work Phone: 02-10-2015 07:08-0400 Pulse (Heart Rate) 70 /min Idania Sheridan RN [facility] Work Phone: Comment on above: Pattern: Regular 02-10-2015 07:08-0400 Pulse Oximetry 98 % Shilpa Tainnamdi [facility] Internal Medicine Work Phone: Comment on above: Room air 02-10-2015 07:08-0400 Respiratory Rate 18 /min Idania Sheridan RN [facility] Work Phone: Comment on above: Pattern: Unlabored 02-10-2015 07:08-0400 SaO2% (BldA) [Mass fraction] 98 % Idania Sheridan RN [facility]; [facility] Work Phone: Comment on above: Room air 02-10-2015 07:08-0400 Weight 78.93 kg Shilpa Rosales [facility] Internal Medicine Work Phone: 10-03-2014 16:38-0400 BMI (Body Mass Index) 27.25 kg/m2 Shilpa Rosales [facility] Internal Medicine Work Phone: 10-03-2014 16:38-0400 Body Temperature 98 [degF] Shilpa Rosales [facility] Internal Medicine Work Phone: Comment on above: Method: Oral 10-03-2014 16:38-0400 Body weight 78.93 kg Shilpa Rosales [facility] Internal Medicine Work Phone: 10-03-2014 16:38-0400 BP Diastolic 70 mm[Hg] Shilpa Rosales [facility] Internal Medicine Work Phone: Comment on above: Patient Position: Sitting; Cuff Location : Left Arm; Cuff Size: Standard 10-03-2014 16:38-0400 BP Systolic 118 mm[Hg] Shilpa Rosales [facility] Internal Medicine Work Phone: Comment on above: Patient Position: Sitting; Cuff Location : Left Arm; Cuff Size: Standard 10-03-2014 16:38-0400 BSA (Body Surface Area) 1.91 m2 Shilpa Rosales [facility] Internal Medicine Work Phone: 10-03-2014 16:38-0400 Height 170.18 cm Shilpa Roasles [facility] Internal Medicine Work Phone: 10-03-2014 16:38-0400 Pulse (Heart Rate) 68 /min Shilpa Rosales [facility] Internal Medicine Work Phone: Comment on above: Pattern: Regular 10-03-2014 16:38-0400 Pulse Oximetry 98 % Shilpa Rosales [facility] Internal Medicine Work Phone: Comment on above: Room air 10-03-2014 16:38-0400 Respiratory Rate 17 /min Shilpa Rosales [facility] Internal Medicine Work Phone: 10-03-2014 16:38-0400 SaO2% (BldA) [Mass fraction] 98 % Shilpa Rosales [facility] Work Phone: [facility]; [facility] Work Phone: Comment on above: Room air 10-03-2014 16:38-0400 Weight 78.93 kg Shilpa Rosales [facility] Internal Medicine Work Phone: 09-26-2014 11:51-0500 BMI (Body Mass Index) 27.25 kg/m2 Shilpa Velasquezens [facility]ian Internal Medicine Work Phone: 09-26-2014 11:51-0500 Body Temperature 97.9 [degF] Shilpa Rosales [facility] Internal Medicine Work Phone: Comment on above: Method: Oral 09-26-2014 11:51-0500 Body weight 78.93 kg Shilpa Rosales [facility] Internal Medicine Work Phone: 09-26-2014 11:51-0500 BP Diastolic 70 mm[Hg] Shilpa Rosales [facility] Internal Medicine Work Phone: Comment on above: Patient Position: Sitting; Cuff Location : Left Arm; Cuff Size: Standard 09-26-2014 11:51-0500 BP Systolic 118 mm[Hg] Shilpa Rosales [facility] Internal Medicine Work Phone: Comment on above: Patient Position: Sitting; Cuff Location : Left Arm; Cuff Size: Standard 09-26-2014 11:51-0500 BSA (Body Surface Area) 1.91 m2 Shilpa Tsai [facility] Internal Medicine Work Phone: 09-26-2014 11:51-0500 Height 170.18 cm Shilpa Rosales [facility] Internal Medicine Work Phone: 09-26-2014 11:51-0500 Pulse (Heart Rate) 68 /min Shilpa Rosales [facility] Internal Medicine Work Phone: Comment on above: Pattern: Regular 09-26-2014 11:51-0500 Pulse Oximetry 98 % Shilpa Rosales [facility] Internal Medicine Work Phone: Comment on above: Room air 09-26-2014 11:51-0500 Respiratory Rate 17 /min Shilpa Rosales [facility] Internal Medicine Work Phone: 09-26-2014 11:51-0500 SaO2% (BldA) [Mass fraction] 98 % Shilpa Rosales [facility] Work Phone: [facility]; [facility] Work Phone: Comment on above: Room air 09-26-2014 11:51-0500 Weight 78.93 kg Shilpa Rosales [facility] Internal Medicine Work Phone: 05-16-2014 16:03-0400 BMI (Body Mass Index) 27.25 kg/m2 Shilpa Velasquezens [facility] Internal Medicine Work Phone: 05-16-2014 16:03-0400 Body Temperature 98.4 [degF] Shilpa Rosales [facility] Internal Medicine Work Phone: Comment on above: Method: Oral 05-16-2014 16:03-0400 Body weight 78.93 kg Shilpa Rosales [facility] Internal Medicine Work Phone: 05-16-2014 16:03-0400 BP Diastolic 76 mm[Hg] Shilpa Rosales [facility] Internal Medicine Work Phone: Comment on above: Patient Position: Sitting; Cuff Location : Left Arm; Cuff Size: Standard 05-16-2014 16:03-0400 BP Systolic 118 mm[Hg] Shilpa Rosales [facility] Internal Medicine Work Phone: Comment on above: Patient Position: Sitting; Cuff Location : Left Arm; Cuff Size: Standard 05-16-2014 16:03-0400 BSA (Body Surface Area) 1.91 m2 Shilpa Tsai [facility] Internal Medicine Work Phone: 05-16-2014 16:03-0400 Height 170.18 cm Shilpa Rosales [facility] Internal Medicine Work Phone: 05-16-2014 16:03-0400 Pulse (Heart Rate) 70 /min Shilpa Rosales [facility] Internal Medicine Work Phone: Comment on above: Pattern: Regular 05-16-2014 16:03-0400 Pulse Oximetry 98 % Shilpa Rosales [facility] Internal Medicine Work Phone: Comment on above: Room air 05-16-2014 16:03-0400 SaO2% (BldA) [Mass fraction] 98 % Shilpa Rosales [employer] Work Phone: [facility]; [facility] Work Phone: Comment on above: Room air 05-16-2014 16:03-0400 Weight 78.93 kg Shilpa Rosales [facility] Internal Medicine Work Phone: 05-11-2014 09:08-0400 BMI (Body Mass Index) 27.25 kg/m2 [place] Jalloh [facility] Internal Medicine Work Phone: 05-11-2014 09:08-0400 Body Temperature 97.4 [degF] [place] Lilly [facility] Internal Medicine Work Phone: 05-11-2014 09:08-0400 Body weight 78.93 kg [place] Lilly [facility] Internal Medicine Work Phone: 05-11-2014 09:08-0400 BP Diastolic 78 mm[Hg] [place] Lilly [facility] Internal Medicine Work Phone: Comment on above: Patient Position: Sitting; Cuff Location : Left Arm; Cuff Size: Standard 05-11-2014 09:08-0400 BP Systolic 102 mm[Hg] [place] Lilly [facility] Internal Medicine Work Phone: Comment on above: Patient Position: Sitting; Cuff Location : Left Arm; Cuff Size: Standard 05-11-2014 09:08-0400 BSA (Body Surface Area) 1.91 m2 [place] Lilly Compreh ensive Internal Medicine Work Phone: 05-11-2014 09:08-0400 Height 170.18 cm [place] Lilly [facility] Internal Medicine Work Phone: 05-11-2014 09:08-0400 Pulse (Heart Rate) 72 /min [place] Lilly Comprehensiv e Internal Medicine Work Phone: Comment on above: Pattern: Regular 05-11-2014 09:08-0400 Respiratory Rate 16 /min [place] Lilly [facility] Internal Medicine Work Phone: Comment on above: Pattern: Unlabored 05-11-2014 09:08-0400 Weight 78.93 kg Shilpa Rosales [facility] Internal Medicine Work Phone: 12-07-2013 14:02-0400 BMI (Body Mass Index) 26.31 kg/m2 [place] Jalloh [facility] Internal Medicine Work Phone: 12-07-2013 14:02-0400 Body Temperature 97.9 [degF] [place] Lilly [facility] Internal Medicine Work Phone: 12-07-2013 14:02-0400 Body weight 76.2 kg [place] Lilly [facility] Internal Medicine Work Phone: 12-07-2013 14:02-0400 BP Diastolic 78 mm[Hg] [place] Lilly [facility] Internal Medicine Work Phone: Comment on above: Patient Position: Sitting; Cuff Location : Left Arm; Cuff Size: Standard 12-07-2013 14:02-0400 BP Systolic 102 mm[Hg] [place] Lilly [facility] Internal Medicine Work Phone: Comment on above: Patient Position: Sitting; Cuff Location : Left Arm; Cuff Size: Standard 12-07-2013 14:02-0400 BSA (Body Surface Area) 1.88 m2 [place] Lilly Compreh ensive Internal Medicine Work Phone: 12-07-2013 14:02-0400 Height 170.18 cm [place] Lilly [facility] Internal Medicine Work Phone: 12-07-2013 14:02-0400 Pulse (Heart Rate) 64 /min [place] Lilly Comprehensiv Internal Medicine Work Phone: Comment on above: Pattern: Regular 12-07-2013 14:02-0400 Respiratory Rate 16 /min [place] Lilly [facility] Internal Medicine Work Phone: Comment on above: Pattern: Unlabored 12-07-2013 14:02-0400 Weight 76.2 kg Shilpa Rosales [facility] Internal Medicine Work Phone: 10-15-2013 07:37-0400 BMI (Body Mass Index) 26.31 kg/m2 [place] Lilly [facility] Internal Medicine Work Phone: 10-15-2013 07:37-0400 Body Temperature 97.6 [degF] [place] Lilly [facility] Internal Medicine Work Phone: 10-15-2013 07:37-0400 Body weight 76.2 kg [place] Lilly [facility] Internal Medicine Work Phone: 10-15-2013 07:37-0400 BP Diastolic 68 mm[Hg] [place] Lilly [facility] Internal Medicine Work Phone: Comment on above: Patient Position: Sitting; Cuff Location : Left Arm; Cuff Size: Large 10-15-2013 07:37-0400 BP Systolic 92 mm[Hg] [place] Lilly [facility] Internal Medicine Work Phone: Comment on above: Patient Position: Sitting; Cuff Location : Left Arm; Cuff Size: Large 10-15-2013 07:37-0400 BSA (Body Surface Area) 1.88 m2 [place] Lilly [facility] Internal Medicine Work Phone: 10-15-2013 07:37-0400 Height 170.18 cm [place] Montoyakishore [facility] Internal Medicine Work Phone: 10-15-2013 07:37-0400 Pulse (Heart Rate) 72 /min [place] [facility]ishore [facility] Work Phone: Comment on above: Pattern: Regular 10-15-2013 07:37-0400 Respiratory Rate 16 /min [place] Lilly [facility] Internal Medicine Work Phone: Comment on above: Pattern: Unlabored 10-15-2013 07:37-0400 Weight 76.2 kg Shilpa Rosales [facility] Internal Medicine Work Phone: 07-09-2013 08:58-0500 BMI (Body Mass Index) 26.48 kg/m2 Shilpa Rosales [facility] Internal Medicine Work Phone: 07-09-2013 08:58-0500 Body Temperature 97.9 [degF] Shilpa Rosales [facility] Internal Medicine Work Phone: Comment on above: Method: Oral 07-09-2013 08:58-0500 Body weight 76.69 kg Shilpa Rosales [facility] Internal Medicine Work Phone: 07-09-2013 08:58-0500 BP Diastolic 72 mm[Hg] Shilpa Rosales [facility] Internal Medicine Work Phone: Comment on above: Patient Position: Sitting; Cuff Location : Left Arm; Cuff Size: Standard 07-09-2013 08:58-0500 BP Systolic 112 mm[Hg] Shilpa Rosales [facility] Internal Medicine Work Phone: Comment on above: Patient Position: Sitting; Cuff Location : Left Arm; Cuff Size: Standard 07-09-2013 08:58-0500 BSA (Body Surface Area) 1.88 m2 Shilpa Tsai ns[facility] Internal Medicine Work Phone: 07-09-2013 08:58-0500 Height 170.18 cm Shilpa Rosales [facility] Internal Medicine Work Phone: 07-09-2013 08:58-0500 Pulse (Heart Rate) 60 /min Shilpa Rosales [facility] Internal Medicine Work Phone: Comment on above: Pattern: Regular 07-09-2013 08:58-0500 Pulse Oximetry 98 % Shilpa Rosales [facility] Internal Medicine Work Phone: Comment on above: Room air 07-09-2013 08:58-0500 SaO2% (BldA) [Mass fraction] 98 % Shilpa Rosales [facility] Work Phone: [facility]; [facility] Internal Medicine Work Phone: Comment on above: Room air 07-09-2013 08:58-0500 Weight 76.69 kg Shilpa Rosales [facility] Internal Medicine Work Phone: 06-25-2013 08:05-0500 BMI (Body Mass Index) 26.69 kg/m2 Shilpa Velasquezens gian Internal Medicine Work Phone: 06-25-2013 08:05-0500 Body Temperature 97.9 [degF] Shilpa Rosales [facility] Internal Medicine Work Phone: Comment on above: Method: Oral 06-25-2013 08:05-0500 Body weight 77.31 kg Shilpa Rosales [facility] Internal Medicine Work Phone: 06-25-2013 08:05-0500 BP Diastolic 70 mm[Hg] Shilpa Rosales [facility] Internal Medicine Work Phone: Comment on above: Patient Position: Sitting; Cuff Location : Left Arm; Cuff Size: Standard 06-25-2013 08:05-0500 BP Systolic 110 mm[Hg] Shilpa Rosales [facility] Internal Medicine Work Phone: Comment on above: Patient Position: Sitting; Cuff Location : Left Arm; Cuff Size: Standard 06-25-2013 08:05-0500 BSA (Body Surface Area) 1.89 m2 Shilpa Tsai [facility] Internal Medicine Work Phone: 06-25-2013 08:05-0500 Height 170.18 cm Shilpa Rosales [facility] Internal Medicine Work Phone: 06-25-2013 08:05-0500 Pulse (Heart Rate) 66 /min Shilpa Rosales [facility] Internal Medicine Work Phone: Comment on above: Pattern: Regular 06-25-2013 08:05-0500 Pulse Oximetry 98 % Shilpa Rosales [facility] Internal Medicine Work Phone: Comment on above: Room air 06-25-2013 08:05-0500 Respiratory Rate 16 /min Shilpa Rosales [facility] Internal Medicine Work Phone: 06-25-2013 08:05-0500 SaO2% (BldA) [Mass fraction] 98 % Shilpa Rosales [facility] Work Phone: [facility] Work Phone: Comment on above: Room air 06-25-2013 08:05-0500 Weight 77.31 kg Shilpa Rosales [facility] Internal Medicine Work Phone: 06-11-2013 08:01-0500 BMI (Body Mass Index) 27.47 kg/m2 Judy Garcia [facility] Internal Medicine Work Phone: 06-11-2013 08:01-0500 Body weight 79.55 kg Judy Garcia [facility] Internal Medicine Work Phone: 06-11-2013 08:01-0500 BP Diastolic 68 mm[Hg] Judy Garcia [facility] Internal Medicine Work Phone: Comment on above: Patient Position: Sitting; Cuff Location : Left Arm; Cuff Size: Standard 06-11-2013 08:01-0500 BP Systolic 110 mm[Hg] Judy Garcia [facility] Internal Medicine Work Phone: Comment on above: Patient Position: Sitting; Cuff Location : Left Arm; Cuff Size: Standard 06-11-2013 08:01-0500 BSA (Body Surface Area) 1.91 m2 Judy Garcia [facility] Internal Medicine Work Phone: 06-11-2013 08:01-0500 Height 170.18 cm Judy Garcia [facility] Internal Medicine Work Phone: 06-11-2013 08:01-0500 Pulse (Heart Rate) 61 /min Judy Garcia [facility] Internal Medicine Work Phone: Comment on above: Pattern: Regular 06-11-2013 08:01-0500 Pulse Oximetry 98 % Shilpa Rosales [facility] Internal Medicine Work Phone: Comment on above: Room air 06-11-2013 08:01-0500 Respiratory Rate 16 /min Judy Garcia [facility] Internal Medicine Work Phone: Comment on above: Pattern: Unlabored 06-11-2013 08:01-0500 SaO2% (BldA) [Mass fraction] 98 % Judy Garcia [facility] Internal Medicine; [facility] Work Phone: Comment on above: Room air 06-11-2013 08:01-0500 Weight 79.55 kg Shilpa Rosales [facility] Internal Medicine Work Phone: 05-31-2013 13:31-0500 BMI (Body Mass Index) 27.47 kg/m2 Kacey Perez RN [facility] Internal Medicine Work Phone: 05-31-2013 13:31-0500 Body Temperature 98.2 [degF] Kacey Perez RN [facility] Internal Medicine Work Phone: Comment on above: Method: Temporal 05-31-2013 13:31-0500 Body weight 79.55 kg Kacey Perez RN [facility] Internal Medicine Work Phone: 05-31-2013 13:31-0500 BP Diastolic 74 mm[Hg] Kacey Perez RN [facility] Internal Medicine Work Phone: Comment on above: Patient Position: Sitting; Cuff Location : Left Arm; Cuff Size: Standard 05-31-2013 13:31-0500 BP Systolic 122 mm[Hg] Kacey Perez RN [facility] Work Phone: Comment on above: Patient Position: Sitting; Cuff Location : Left Arm; Cuff Size: Standard 05-31-2013 13:31-0500 BSA (Body Surface Area) 1.91 m2 Kacey Perez RN [facility]pre[facility] Internal Medicine Work Phone: 05-31-2013 13:31-0500 Height 170.18 cm Kacey Perez RN [facility] Work Phone: 05-31-2013 13:31-0500 Pulse (Heart Rate) 82 /min Kacey Perez RN [facility] Work Phone: Comment on above: Pattern: Regular 05-31-2013 13:31-0500 Pulse Oximetry 97 % Shilpa Handymarry [facility] Work Phone: Comment on above: Room air 05-31-2013 13:31-0500 Respiratory Rate 16 /min Kacey Perez RN [facility] Work Phone: Comment on above: Pattern: Unlabored 05-31-2013 13:31-0500 SaO2% (BldA) [Mass fraction] 97 % Kacey Perez RN [facility]; [facility] Work Phone: Comment on above: Room air 05-31-2013 13:31-0500 Weight 79.55 kg Shilpa Tainnamdi [facility] Internal Medicine Work Phone: 10-08-2012 12:45-0400 BMI [...] 12:45-0400 Height 170.18 cm Idania Sheridan RN [facility] Internal Medicine Work Phone: 10-08-2012 12:45-0400 Pulse (Heart Rate) 72 /min Idania Sheridan RN [facility] Work Phone: Comment on above: Pattern: Regular 10-08-2012 12:45-0400 Respiratory Rate 18 /min Idania Sheridan RN [facility] Internal Medicine Work Phone: Comment on above: Pattern: Unlabored 10-08-2012 12:45-0400 Weight 79.55 kg Shilpa Rosales [facility] Internal Medicine Work Phone: 09-22-2012 10:13-0500 BMI (Body Mass Index) 27.47 kg/m2 Savana Marmolejo [facility] Internal Medicine Work Phone: 09-22-2012 10:13-0500 Body Temperature 97.5 [degF] Savana Marmolejo [facility] Internal Medicine Work Phone: 09-22-2012 10:13-0500 Body weight 79.55 kg Savana Francie [facility] Internal Medicine Work Phone: 09-22-2012 10:13-0500 BP Diastolic 80 mm[Hg] Savana Marmolejo [facility] Internal Medicine Work Phone: Comment on above: Patient Position: Sitting; Cuff Location : Left Arm; Cuff Size: Standard 09-22-2012 10:13-0500 BP Systolic 110 mm[Hg] Savana Marmolejo [facility] Internal Medicine Work Phone: Comment on above: Patient Position: Sitting; Cuff Location : Left Arm; Cuff Size: Standard 09-22-2012 10:13-0500 BSA (Body Surface Area) 1.91 m2 Savana Tsai [facility] Internal Medicine Work Phone: 09-22-2012 10:130500 Height 170.18 cm Savana Marmolejo [facility] Internal Medicine Work Phone: 09-22-2012 10:13-0500 Pulse (Heart Rate) 68 /min Savana Marmolejo [facility] Internal Medicine Work Phone: Comment on above: Pattern: Regular 09-22-2012 10:13-0500 Respiratory Rate 16 /min Savana Marmolejo [facility] Internal Medicine Work Phone: Comment on above: Pattern: Unlabored 09-22-2012 10:13-0500 Weight 79.55 kg Shilpa Rosales [facility] Internal Medicine Work Phone: 04-15-2012 09:58-0400 BMI (Body Mass Index) 26.16 kg/m2 [place] [facility] Internal Medicine Work Phone: 04-15-2012 09:58-0400 Body Temperature 96.7 [degF] [place] Vijaya [facility] Internal Medicine Work Phone: 04-15-2012 09:58-0400 Body weight 75.75 kg [place] Vijaya [facility] Internal Medicine Work Phone: 04-15-2012 09:58-0400 BP Diastolic 72 mm[Hg] [place] Lilly [facility] Internal Medicine Work Phone: Comment on above: Patient Position: Sitting; Cuff Location : Left Arm; Cuff Size: Large 04-15-2012 09:58-0400 BP Systolic 102 mm[Hg] [place] Lilly [facility] Internal Medicine Work Phone: Comment on above: Patient Position: Sitting; Cuff Location : Left Arm; Cuff Size: Large 04-15-2012 09:58-0400 BSA (Body Surface Area) 1.[address] [facility] Internal Medicine Work Phone: 04-15-2012 09:58-0400 Height 170.18 cm [place] Lilly [facility] Internal Medicine Work Phone: 04-15-2012 09:58-0400 Pulse (Heart Rate) 68 /min [place] Lilly Comprehensiv e Internal Medicine Work Phone: Comment on above: Pattern: Regular 04-15-2012 09:58-0400 Respiratory Rate 16 /min [place] Lilly [facility] Internal Medicine Work Phone: Comment on above: Pattern: Unlabored 04-15-2012 09:58-0400 Weight 75.75 kg Shilpa Rosales [facility] Internal Medicine Work Phone: 03-16-2012 13:59-0400 BMI (Body Mass Index) 25.22 kg/m2 [place] Lilly Shubham [facility] Internal Medicine Work Phone: 03-16-2012 13:59-0400 Body Temperature 97.6 [degF] [place] Lilly [facility] Internal Medicine Work Phone: 03-16-2012 13:59-0400 Body weight 73.03 kg [place] Lilly [facility] Internal Medicine Work Phone: 03-16-2012 13:59-0400 BP Diastolic 82 mm[Hg] [place] Lilly [facility] Internal Medicine Work Phone: Comment on above: Patient Position: Sitting; Cuff Location : Left Arm; Cuff Size: Large 03-16-2012 13:59-0400 BP Systolic 114 mm[Hg] [place] Lilly [facility] Internal Medicine Work Phone: Comment on above: Patient Position: Sitting; Cuff Location : Left Arm; Cuff Size: Large 03-16-2012 13:59-0400 BSA (Body Surface Area) 1.84 m2 [place] Vel[facility] Internal Medicine Work Phone: 03-16-2012 13:59-0400 Height 170.18 cm Georgia Montoyakishore [facility] Internal Medicine Work Phone: 03-16-2012 13:59-0400 Pulse (Heart Rate) 88 /min Georgia Montoyakishore Comprehensiv e Internal Medicine Work Phone: Comment on above: Pattern: Regular 03-16-2012 13:59-0400 Respiratory Rate 16 /min [place] Lilly [facility] Work Phone: Comment on above: Pattern: Unlabored 03-16-2012 13:59-0400 Weight 73.03 kg Shilpa Rosales [facility] Work Phone: 03-04-2012 12:18-0400 BMI (Body Mass Index) 26.31 kg/m2 Kacey Perez RN Comprehens gian Internal Medicine Work Phone: 03-04-2012 12:18-0400 [...] BSA (Body Surface Area) 1.88 m2 Kacey Perez RN Comprehe nsive Internal Medicine Work Phone: 03-04-2012 12:18-0400 [...] 03-04-2012 12:18-0400 Weight 76.2 kg Shilpa Rosales [facility] Internal Medicine Work Phone: 11-27-2011 14:07-0400 BMI [...] BSA (Body Surface Area) 1.88 m2 Lucy Velasqueze nsive Internal Medicine Work Phone: 11-27-2011 14:07-0400 [...] 11-27-2011 14:07-0400 Weight 76.2 kg Shilpa Rosales [facility] Internal Medicine Work Phone: 08-07-2011 13:08-0500 BMI (Body Mass Index) 26 kg/m2 [place] Lilly Comprehen sive Internal Medicine Work Phone: 08-07-2011 13:08-0500 Body Temperature 97.6 [degF] Georgia Lilly [facility] Internal Medicine Work Phone: 08-07-2011 13:08-0500 Body weight 75.3 kg Georgia Lilly [facility] Internal Medicine Work Phone: 08-07-2011 13:08-0500 BP Diastolic 62 mm[Hg] Georgia Lilly [facility] Internal Medicine Work Phone: Comment on above: Patient Position: Sitting; Cuff Location : Left Arm; Cuff Size: Large 08-07-2011 13:08-0500 BP Systolic 96 mm[Hg] Georgia Lilly [facility] Internal Medicine Work Phone: Comment on above: Patient Position: Sitting; Cuff Location : Left Arm; Cuff Size: Large 08-07-2011 13:08-0500 BSA (Body Surface Area) 1.87 m2 [place] Lilly Eva [facility] Internal Medicine Work Phone: 08-07-2011 13:08-0500 Height 170.18 cm Georgia Lilly [facility] Internal Medicine Work Phone: 08-07-2011 13:08-0500 Pulse (Heart Rate) 76 /min Georgia Lilly [facility] Internal Medicine Work Phone: Comment on above: Pattern: Regular 08-07-2011 13:08-0500 Respiratory Rate 16 /min Georgia Montoyakishore [facility] Internal Medicine Work Phone: Comment on above: Pattern: Unlabored 08-07-2011 13:08-0500 Weight 75.3 kg Shilpa Rosales [facility] Internal Medicine Work Phone: 06-12-2011 14:14-0500 BMI (Body Mass Index) 25.69 kg/m2 [place] Lilly Evamargarette [facility] Internal Medicine Work Phone: 06-12-2011 14:14-0500 Body Temperature 98.5 [degF] Georgia Diazdayo [facility] Internal Medicine Work Phone: 06-12-2011 14:14-0500 Body weight 74.39 kg Georgia Lilly [facility] Internal Medicine Work Phone: 06-12-2011 14:14-0500 BP Diastolic 80 mm[Hg] Georgia Lilly [facility] Internal Medicine Work Phone: Comment on above: Patient Position: Sitting; Cuff Location : Left Arm; Cuff Size: Large 06-12-2011 14:14-0500 BP Systolic 110 mm[Hg] Georgia Lilly [facility] Internal Medicine Work Phone: Comment on above: Patient Position: Sitting; Cuff Location : Left Arm; Cuff Size: Large 06-12-2011 14:14-0500 BSA (Body Surface Area) 1.86 m2 [place] Lilly Compreh ensive Internal Medicine Work Phone: 06-12-2011 14:14-0500 Height 170.18 cm Georgia Diazdayo [facility] Internal Medicine Work Phone: 06-12-2011 14:14-0500 Pulse (Heart Rate) 88 /min [place] Lilly Evaensiv e Internal Medicine Work Phone: Comment on above: Pattern: Regular 06-12-2011 14:14-0500 Respiratory Rate 18 /min Georgia Montoyakishore [facility] Internal Medicine Work Phone: Comment on above: Pattern: Unlabored 06-12-2011 14:14-0500 Weight 74.39 kg Shilpa Rosales [facility] Internal Medicine Work Phone: 04-15-2011 14:05-0400 BMI (Body Mass Index) 26.16 kg/m2 [place] Lilly Shubham sive Internal Medicine Work Phone: 04-15-2011 14:05-0400 Body Temperature 97.9 [degF] Georgia Vijaya [facility] Internal Medicine Work Phone: 04-15-2011 14:05-0400 Body weight 75.75 kg Georgia Diazdayo [facility] Internal Medicine Work Phone: 04-15-2011 14:05-0400 BP Diastolic 74 mm[Hg] Georgia Vijaya [facility] Internal Medicine Work Phone: Comment on above: Patient Position: Sitting; Cuff Location : Left Arm; Cuff Size: Large 04-15-2011 14:05-0400 BP Systolic 110 mm[Hg] [place] Lilly [facility] Internal Medicine Work Phone: Comment on above: Patient Position: Sitting; Cuff Location : Left Arm; Cuff Size: Large 04-15-2011 14:05-0400 BSA (Body Surface Area) 1.[address] [facility] Internal Medicine Work Phone: 04-15-2011 14:05-0400 Height 170.18 cm Georgia Lilly [facility] Internal Medicine Work Phone: 04-15-2011 14:05-0400 Pulse (Heart Rate) 82 /min [place] [facility] Work Phone: Comment on above: Pattern: Regular 04-15-2011 14:05-0400 Respiratory Rate 16 /min Georgia Montoyakishore [facility] Internal Medicine Work Phone: Comment on above: Pattern: Unlabored 04-15-2011 14:05-0400 Weight 75.75 kg Shilpa Rosales [facility] Internal Medicine Work Phone: 08-03-2010 13:55-0500 Body Temperature 97.5 [degF] Georgia Lilly [facility] Internal Medicine Work Phone: 08-03-2010 13:55-0500 BP Diastolic 86 mm[Hg] Georgia Lilly [facility] Internal Medicine Work Phone: Comment on above: Patient Position: Sitting; Cuff Location : Left Arm; Cuff Size: Standard 08-03-2010 13:55-0500 BP Systolic 120 mm[Hg] [place] Lilly [facility] Internal Medicine Work Phone: Comment on above: Patient Position: Sitting; Cuff Location : Left Arm; Cuff Size: Standard 08-03-2010 13:55-0500 Pulse (Heart Rate) 80 /min [place] Lilly Comprehensiv e Internal Medicine Work Phone: Comment on above: Pattern: Regular 08-03-2010 13:55-0500 Respiratory Rate 16 /min Georgia Vijaya [facility] Internal Medicine Work Phone: Comment on above: Pattern: Unlabored 06-25-2010 14:00-0500 Body Temperature 97.8 [degF] Georgia Vijaya [facility] Internal Medicine Work Phone: 06-25-2010 14:00-0500 BP Diastolic 64 mm[Hg] Georgia Vijaya [facility] Internal Medicine Work Phone: Comment on above: Patient Position: Sitting; Cuff Location : Left Arm; Cuff Size: Large 06-25-2010 14:00-0500 BP Systolic 100 mm[Hg] Georgia Vijaya [facility] Internal Medicine Work Phone: Comment on above: Patient Position: Sitting; Cuff Location : Left Arm; Cuff Size: Large 06-25-2010 14:00-0500 Pulse (Heart Rate) 92 /min Georgia Vijaya [facility] Internal Medicine Work Phone: Comment on above: Pattern: Regular 06-25-2010 14:00-0500 Respiratory Rate 18 /min Georgia Diazdayo [facility] Internal Medicine Work Phone: Comment on above: Pattern: Unlabored 04-12-2010 08:33-0400 Body Temperature 98.2 [degF] MERARI Richter LPN [facility] Internal Medicine Work Phone: Comment on above: Method: Oral 04-12-2010 08:33-0400 Body weight 70.76 kg MERARI Richter LPN [facility] Internal Medicine Work Phone: 04-12-2010 08:33-0400 BP Diastolic 74 mm[Hg] MERARI Richter LPN [facility] Internal Medicine Work Phone: Comment on above: Patient Position: Sitting; Cuff Location : Left Arm; Cuff Size: Standard 04-12-2010 08:33-0400 BP Systolic 112 mm[Hg] MERARI Richter LPN [facility] Internal Medicine Work Phone: Comment on above: Patient Position: Sitting; Cuff Location : Left Arm; Cuff Size: Standard 04-12-2010 08:33-0400 Pulse (Heart Rate) 74 /min MERARI Richter LPN [facility] Internal Medicine Work Phone: Comment on above: Pattern: Regular 04-12-2010 08:33-0400 Respiratory Rate 18 /min MERARI Richter [employer] [facility] Internal Medicine Work Phone: Comment on above: Pattern: Unlabored 04-12-2010 08:33-0400 Weight 70.76 kg Shilpa Rosales [facility] Internal Medicine Work Phone: 02-26-2010 10:35-0400 BMI (Body Mass Index) 23.04 kg/m2 [place] Velasquezen sive Internal Medicine Work Phone: 02-26-2010 10:35-0400 Body Temperature 97.7 [degF] Georgia Lilly [facility] Internal Medicine Work Phone: 02-26-2010 10:35-0400 Body weight 70.76 kg Georgia Lilly [facility] Internal Medicine Work Phone: 02-26-2010 10:35-0400 BP Diastolic 82 mm[Hg] Georgia Lilly [facility] Internal Medicine Work Phone: Comment on above: Patient Position: Sitting; Cuff Location : Left Arm; Cuff Size: Standard 02-26-2010 10:35-0400 BP Systolic 112 mm[Hg] Georgia Lilly [facility] Internal Medicine Work Phone: Comment on above: Patient Position: Sitting; Cuff Location : Left Arm; Cuff Size: Standard 02-26-2010 10:35-0400 BSA (Body Surface Area) 1.86 m2 [place] Lilly Compreh ensive Internal Medicine Work Phone: 02-26-2010 10:35-0400 Height 175.26 cm Georgia Lilly [facility] Internal Medicine Work Phone: 02-26-2010 10:35-0400 Pulse (Heart Rate) 84 /min [place] Lilly Comprehensiv e Internal Medicine Work Phone: Comment on above: Pattern: Regular 02-26-2010 10:35-0400 Respiratory Rate 18 /min Georgia Lilly [facility] Internal Medicine Work Phone: Comment on above: Pattern: Unlabored 02-26-2010 10:35-0400 Weight 70.76 kg Shilpa Rosales [facility] Internal Medicine Work Phone: 01-01-2010 11:47-0400 Body Temperature 96.2 [degF] Georgia Lilly [facility] Internal Medicine Work Phone: 01-01-2010 11:47-0400 Body weight 73.94 kg Georgia Lilly [facility] Internal Medicine Work Phone: 01-01-2010 11:47-0400 BP Diastolic 86 mm[Hg] Georgia Lilly [facility] Internal Medicine Work Phone: Comment on above: Patient Position: Sitting; Cuff Location : Left Arm; Cuff Size: Standard 01-01-2010 11:47-0400 BP Systolic 112 mm[Hg] Georgia Lilly [facility] Internal Medicine Work Phone: Comment on above: Patient Position: Sitting; Cuff Location : Left Arm; Cuff Size: Standard 01-01-2010 11:47-0400 Pulse (Heart Rate) 72 /min Georgia Lilly [facility] Internal Medicine Work Phone: Comment on above: Pattern: Regular 01-01-2010 11:47-0400 Respiratory Rate 18 /min Georgia Lilly [facility] Internal Medicine Work Phone: Comment on above: Pattern: Unlabored 01-01-2010 11:47-0400 Weight 73.94 kg Shilpa Rosales [facility] Internal Medicine Work Phone: 05-22-2009 13:41-0400 Body Temperature 97.5 [degF] Georgia Lilly [facility] Internal Medicine Work Phone: Comment on above: Method: Undefined 05-22-2009 13:41-0400 Body weight 73.48 kg Georgia Lilly [facility] Internal Medicine Work Phone: 05-22-2009 13:41-0400 BP Diastolic 68 mm[Hg] Georgia Lilly [facility] Internal Medicine Work Phone: Comment on above: Patient Position: Sitting; Cuff Location : Right Arm; Cuff Size: Standard 05-22-2009 13:41-0400 BP Systolic 104 mm[Hg] Georgia Lilly [facility] Internal Medicine Work Phone: Comment on above: Patient Position: Sitting; Cuff Location : Right Arm; Cuff Size: Standard 05-22-2009 13:41-0400 Head Circumference 0 cm Shilpa Rosales [facility] Internal Medicine Work Phone: 05-22-2009 13:41-0400 Head Occipital-frontal circumference 0 cm Georgia Lilly [facility] Internal Medicine; [facility] Work Phone: 05-22-2009 13:41-0400 Height 0 cm Georgia Lilly [facility] Internal Medicine Work Phone: 05-22-2009 13:41-0400 Pulse (Heart Rate) 88 /min Georgia Lilly [facility] Internal Medicine Work Phone: Comment on above: Pattern: Regular 05-22-2009 13:41-0400 Respiratory Rate 18 /min Georgia Lilly [facility] Internal Medicine Work Phone: Comment on above: Pattern: Undefined 05-22-2009 13:41-0400 Weight 73.48 kg Shilpa Rosales [facility] Internal Medicine Work Phone: 03-06-2009 13:27-0400 Body Temperature 97.8 [degF] Georgia Lilly [facility] Internal Medicine Work Phone: Comment on above: Method: Undefined 03-06-2009 13:27-0400 Body weight 74.84 kg Georgia Lilly [facility] Internal Medicine Work Phone: 03-06-2009 13:27-0400 BP Diastolic 78 mm[Hg] Georgia Lilly [facility] Internal Medicine Work Phone: Comment on above: Patient Position: Sitting; Cuff Location : Left Arm; Cuff Size: Large 03-06-2009 13:27-0400 BP Systolic 112 mm[Hg] [place] Lilly [facility] Internal Medicine Work Phone: Comment on above: Patient Position: Sitting; Cuff Location : Left Arm; Cuff Size: Large 03-06-2009 13:27-0400 Head Circumference 0 cm Shilpa Rosales [facility] Internal Medicine Work Phone: 03-06-2009 13:27-0400 Head Occipital-frontal circumference 0 cm Georgia Diazdayo [facility] Internal Medicine; [facility] Work Phone: 03-06-2009 13:27-0400 Height 0 cm Georgia Diazdayo [facility] Internal Medicine Work Phone: 03-06-2009 13:27-0400 Pulse (Heart Rate) 92 /min [facility] Work Phone: Comment on above: Pattern: Regular 03-06-2009 13:27-0400 Respiratory Rate 16 /min Georgia Lilly [facility] Internal Medicine Work Phone: Comment on above: Pattern: Undefined 03-06-2009 13:27-0400 Weight 74.84 kg Shilpa Rosales [facility] Internal Medicine Work Phone: 02-06-2009 11:27-0400 BMI (Body Mass Index) 23.39 kg/m2 Hollie Spencer [facility] gian Internal Medicine Work Phone: 02-06-2009 11:27-0400 Body weight 73.94 kg Hollie Spencer [facility] Internal Medicine Work Phone: 02-06-2009 11:27-0400 BP Diastolic 74 mm[Hg] [facility] Internal Medicine Work Phone: Comment on above: Patient Position: Supine; Cuff Location: Left Arm; Cuff Size: Standard 02-06-2009 11:27-0400 BP Systolic 120 mm[Hg] Hollie Spencer [facility] Internal Medicine Work Phone: Comment on above: Patient Position: Supine; Cuff Location: Left Arm; Cuff Size: Standard 02-06-2009 11:27-0400 BSA (Body Surface Area) 1.91 m2 [facility] Work Phone: 02-06-2009 11:27-0400 Head Circumference 0 cm Shilpa Rosales [facility] Internal Medicine Work Phone: 02-06-2009 11:27-0400 Head Occipital-frontal circumference 0 cm [facility] Internal Medicine; [facility] Internal Medicine Work Phone: 02-06-2009 11:27-0400 Height 177.8 cm [facility] Internal Medicine Work Phone: 02-06-2009 11:27-0400 Pulse (Heart Rate) 80 /min [facility] Internal Medicine Work Phone: Comment on above: Pattern: Regular 02-06-2009 11:27-0400 Respiratory Rate 16 /min [facility] Internal Medicine Work Phone: Comment on above: Pattern: Unlabored 02-06-2009 11:27-0400 [facility] 73.94 [facility] Work Phone: 10-07-2008 13:10-0400 BMI (Body Mass Index) 23.39 kg/m2 [facility] Work Phone: 10-07-2008 13:10-0400 Body Temperature 95.9 [degF] [facility] Internal Medicine Work Phone: Comment on above: Method: Oral 10-07-2008 13:10-0400 Body weight 73.[address] [facility] Internal Medicine Work Phone: 10-07-2008 13:10-0400 BP Diastolic 64 mm[Hg] [facility] Internal Medicine Work Phone: Comment on above: Patient Position: Sitting; Cuff Location : Left Arm; Cuff Size: Standard 10-07-2008 13:10-0400 BP Systolic 122 mm[Hg] [facility] Internal Medicine Work Phone: Comment on above: Patient Position: Sitting; Cuff Location : Left Arm; Cuff Size: Standard 10-07-2008 13:10-0400 BSA (Body Surface Area) 1.91 m2 [facility] Work Phone: 10-07-2008 13:10-0400 Head Circumference 0 cm Shilpa Rosales [facility] Internal Medicine Work Phone: 10-07-2008 13:10-0400 Head Occipital-frontal circumference [address] [facility] Internal Medicine; [facility] Work Phone: 10-07-2008 13:10-0400 Height 177.8 cm Cammie Ramos [facility] Internal Medicine Work Phone: 10-07-2008 13:10-0400 Pulse (Heart Rate) 84 /min Cammie Ramos [facility] Internal Medicine Work Phone: Comment on above: Pattern: Regular 10-07-2008 13:10-0400 Respiratory Rate 18 /min Cammie Ramos [facility] Internal Medicine Work Phone: Comment on above: Pattern: Unlabored 10-07-2008 13:10-0400 Weight 73.94 kg Shilpa Rosales [facility] Internal Medicine Work Phone: 08-22-2008 13:31-0500 Body Temperature 98.2 [degF] Li Zhang [facility] Internal Medicine Work Phone: Comment on above: Method: Oral 08-22-2008 13:31-0500 Body weight 69.85 kg Li Zhang [facility] Internal Medicine Work Phone: 08-22-2008 13:31-0500 BP Diastolic 82 mm[Hg] [facility] Work Phone: Comment on above: Patient Position: Sitting; Cuff Location : Left Arm; Cuff Size: Standard 08-22-2008 13:31-0500 BP Systolic 112 mm[Hg] [facility] Work Phone: Comment on above: Patient Position: Sitting; Cuff Location : Left Arm; Cuff Size: Standard 08-22-2008 13:31-0500 Head Circumference 0 cm Shilpa Rosales [facility] Internal Medicine Work Phone: 08-22-2008 13:31-0500 Head Occipital-frontal circumference 0 cm Li Zhang [facility] Internal Medicine; [facility] Work Phone: 08-22-2008 13:31-0500 Height 0 cm Li Zhang [facility] Internal Medicine Work Phone: 08-22-2008 13:31-0500 Pulse (Heart Rate) 93 /min Li Zhang [facility] Internal Medicine Work Phone: Comment on above: Pattern: Regular 08-22-2008 13:31-0500 Pulse Oximetry 100 % Shilpa Rosales [facility] Work [...] 06-07-2008 13:47-0500 Body Temperature 97.4 [degF] [place] Fldayo [facility] Work Phone: Comment on above: Method: Undefined 06-07-2008 13:47-0500 Body weight 0 kg Georgiakieran Lilly [facility] Work Phone: 06-07-2008 13:47-0500 BP Diastolic 74 mm[Hg] [place] Vijaya [facility] Internal Medicine Work Phone: Comment on above: Patient Position: Sitting; Cuff Location : Left Arm; Cuff Size: Large 06-07-2008 13:47-0500 BP Systolic 108 mm[Hg] [place] Vijaya [facility] Internal Medicine Work Phone: Comment on above: Patient Position: Sitting; Cuff Location : Left Arm; Cuff Size: Large 06-07-2008 13:47-0500 Head Circumference 0 cm Shilpa Handynnamdi [facility] Internal Medicine Work Phone: 06-07-2008 13:47-0500 Head Occipital-frontal circumference 0 cm [place] Lilly [facility] Internal Medicine; [facility] Work Phone: 06-07-2008 13:47-0500 Height 0 cm Georgia Lilly [facility] Internal Medicine Work Phone: 06-07-2008 13:47-0500 Pulse (Heart Rate) 100 /min [place] Vijaya [facility] Internal Medicine Work Phone: Comment on above: Pattern: Regular 06-07-2008 13:47-0500 Respiratory Rate 16 /min [place] Vijaya [facility] Internal Medicine Work Phone: Comment on above: Pattern: Undefined 06-07-2008 13:47-0500 Weight 0 kg Shilpa Rosales [facility] Internal Medicine Work Phone: 03-17-2008 [...] Standard 03-17-2008 13:35-0400 Head Circumference 0 cm Shilpa Handynnamdi [facility] Internal Medicine Work Phone: 03-17-2008 13:35-0400 Head [...] Pattern: Unlabored 03-17-2008 13:35-0400 Weight 0 kg Shilpa Tainnamdi [facility] Internal Medicine Work Phone: 01-04-2008 09:48-0400 Body Temperature 98.2 [degF] MERARI Richter LPN [facility] Internal Medicine Work Phone: Comment on above: Method: Oral 01-04-2008 09:48-0400 Body weight 69.85 kg MERARI Ricther LPN [facility] Work Phone: 01-04-2008 09:48-0400 BP Diastolic 76 mm[Hg] MERARI Richter LPN [facility] Work Phone: Comment on above: Patient Position: Sitting; Cuff Location : Left Arm; Cuff Size: Standard 01-04-2008 09:48-0400 BP Systolic 114 mm[Hg] MERARI Richter LPN [facility] Work Phone: Comment on above: Patient Position: Sitting; Cuff Location : Left Arm; Cuff Size: Standard 01-04-2008 09:48-0400 Head Circumference 0 cm Shilpa Connie [facility] Internal Medicine Work Phone: 01-04-2008 09:48-0400 Head Occipital-frontal circumference 0 cm MERARI Richter LPN [facility] Internal Medicine; [facility] Work Phone: 01-04-2008 09:48-0400 Height 0 cm MERARI Richter LPN [facility] Work Phone: 01-04-2008 09:48-0400 Pulse (Heart Rate) 72 /min MERARI Richter LPN [facility] Work Phone: Comment on above: Pattern: Regular 01-04-2008 09:48-0400 Respiratory Rate 18 /min MERARI Richter LPN [facility] Work Phone: Comment on above: Pattern: Unlabored 01-04-2008 09:48-0400 Weight 69.85 kg Shilpa Rosales [facility] Internal Medicine Work Phone: 12-09-2007 16:39-0400 Body Temperature 98.6 [degF] Georgia Lilly [facility] Internal Medicine Work Phone: Comment on above: Method: Undefined 12-09-2007 16:39-0400 Body weight 0 kg [place] Vijaya [facility] Internal Medicine Work Phone: 12-09-2007 16:39-0400 BP Diastolic 70 mm[Hg] Georgia Vijaya [facility] Internal Medicine Work Phone: Comment on above: Patient Position: Sitting; Cuff Location : Right Arm; Cuff Size: Standard 12-09-2007 16:39-0400 BP Systolic 94 mm[Hg] Georgia Lilly [facility] Internal Medicine Work Phone: Comment on above: Patient Position: Sitting; Cuff Location : Right Arm; Cuff Size: Standard 12-09-2007 16:39-0400 Head Circumference 0 cm Shilpa Rosales [facility] Internal Medicine Work Phone: 12-09-2007 16:39-0400 Head Occipital-frontal circumference 0 cm [place] Vijaya [facility] Internal Medicine; [facility] Work Phone: 12-09-2007 16:39-0400 Height 0 cm Georgia Lilly [facility] Internal Medicine Work Phone: 12-09-2007 16:39-0400 Pulse (Heart Rate) 72 /min [place] Vijaya [facility] Internal Medicine Work Phone: Comment on above: Pattern: Regular 12-09-2007 16:39-0400 Respiratory Rate 16 /min [place] Vijaya [facility] Work Phone: Comment on above: Pattern: Undefined 12-09-2007 16:39-0400 [facility] Work Phone: 10-12-2007 13:18-0400 Body [...] 10-12-2007 13:18-0400 Head Circumference 0 cm [facility] Work Phone: 10-12-2007 13:18-0400 Head [...] Unlabored 10-12-2007 13:18-0400 [facility] Work Phone: 05-27-2007 14:41-0400 BMI (Body Mass Index) 23.04 kg/m2 [place] Vijaya Jalloh [facility] Internal Medicine Work Phone: 05-27-2007 14:41-0400 Body Temperature 98.3 [degF] [place] Vijaya [facility] [facility] Work Phone: Comment on above: Method: Undefined 05-27-2007 14:41-0400 Body weight 70.76 kg [place] Vijaya [facility] Internal Medicine Work Phone: 05-27-2007 14:41-0400 BP Diastolic 56 mm[Hg] [place] Vijaya [facility] Internal Medicine Work Phone: Comment on above: Patient Position: Sitting; Cuff Location : Left Arm; Cuff Size: Standard 05-27-2007 14:41-0400 BP Systolic 100 mm[Hg] [place] Vijaya [facility] Internal Medicine Work Phone: Comment on above: Patient Position: Sitting; Cuff Location : Left Arm; Cuff Size: Standard 05-27-2007 14:41-0400 BSA (Body Surface Area) 1.86 m2 [place] [facility] Work Phone: 05-27-2007 14:41-0400 Head Circumference 0 [facility] Work Phone: 05-27-2007 14:41-0400 Head Occipital-frontal circumference 0 cm [place] Lilly [facility] Internal Medicine; [facility] Work Phone: 05-27-2007 14:41-0400 Height 175.26 cm [place] Lilly [facility] Internal Medicine Work Phone: 05-27-2007 14:41-0400 Pulse (Heart Rate) 88 /min [place] Lilly Comprehensiv e Internal Medicine Work Phone: Comment on above: Pattern: Regular 05-27-2007 14:41-0400 Respiratory Rate 16 /min [place] Thakkar Internal Medicine Work Phone: Comment on above: Pattern: Unlabored 05-27-2007 14:41-0400 Weight 70.76 kg Shilpa Rosales [facility] Internal Medicine Work Phone: 11-19-2006 11:52-0400 BMI (Body Mass Index) 22.15 kg/m2 Hollie Velasquezens gian Internal Medicine Work Phone: 11-19-2006 11:52-0400 Body weight 68.04 kg Hollie Spencer [facility] Internal Medicine Work Phone: 11-19-2006 11:52-0400 BP Diastolic 62 mm[Hg] Hollie Spencer [facility] Internal Medicine Work Phone: Comment on above: Patient Position: Sitting; Cuff Location : Left Arm; Cuff Size: Standard 11-19-2006 11:52-0400 BP Systolic 98 mm[Hg] Hollie Spencer [facility] Internal Medicine Work Phone: Comment on above: Patient Position: Sitting; Cuff Location : Left Arm; Cuff Size: Standard 11-19-2006 11:52-0400 BSA (Body Surface Area) 1.83 m2 Hollie Velasqueze nsive Internal Medicine Work Phone: 11-19-2006 11:52-0400 Head Circumference 0 cm Shilpa Rosales [facility] Internal Medicine Work Phone: 11-19-2006 11:52-0400 Head Occipital-frontal circumference 0 cm Hollie Spencer [facility] Internal Medicine; [facility] Work Phone: 11-19-2006 11:52-0400 Height 175.26 cm Hollie Spencer [facility] Internal Medicine Work Phone: 11-19-2006 11:52-0400 Pulse (Heart Rate) 60 /min Hollie Spencer [facility] Internal Medicine Work Phone: Comment on above: Pattern: Regular 11-19-2006 11:52-0400 Weight 68.04 kg Shilpa Rosales [facility] Internal Medicine Work Phone: Encounters Encounter Date Encounter Type Care Provider Facility Start: 03-08-2025 End: 03-08-[address] Nathan Guzman DO Work Phone: -[facility] Start: 03-08-2025 End: 03-08-2025 Patient encounter procedure Kalin GOLDSMITH -[facility] Work Phone: Start: 01-04-2025 End: 01-04-[address] Nathan Guzman DO Work Phone: [facility] Work Phone: Start: 01-04-2025 End: 01-04-[address] Nathan Guzman DO -Cat Scan [facility] Work Phone: Start: 01-04-2025 End: 01-04-2025 ambulatory Nathan Guzman Facility:[facility] Start: 01-02-2025 End: 01-02-2025 Emergency department patient visit Dr. Nathan Guzman DO Work Phone: -Emergency Department Work Phone: Start: 12-28-2024 End: 12-28-[address] Nathan Guzman DO Work Phone: [facility] Work Phone: Start: 12-28-2024 End: 12-28-[address] Nathan Guzman DO -Laboratory [place] Work Phone: Start: 12-28-2024 End: 12-28-2024 ambulatory Nathan Guzman Facility:[facility] Start: 11-25-2024 End: 11-25-[address] Nathan Guzman DO Work Phone: [facility] Work Phone: Start: 11-25-2024 End: 11-25-2024 Patient encounter procedure Jeyson Galvan EMPLOYEE BENEFITS COORDINATOR-C -Laboratory Work Phone: Start: 11-25-2024 End: 11-25-2024 ambulatory Jeyson Galvan NP Facility:[facility] Start: 10-22-2024 End: 10-22-2024 ambulatory Asia Sam RN [facility] Start: 10-22-2024 End: 10-22-2024 Patient encounter procedure Asia Sam RN CLINICAL INVEST UNIT Start: 09-23-2024 End: 09-23-[address] Malika Samuels MD -[facility] Work Phone: Start: 09-23-2024 End: 09-23-[address] Nathan Guzman DO Work Phone: [facility] Work Phone: Start: 09-23-2024 End: 09-23-2024 ambulatory [facility] Facility:[facility] Start: 09-07-2024 ambulatory [facility] Facility: [facility] Start: 08-18-2024 End: 08-18-[address] Nathan Guzman DO -Laboratory, Specimen Work Phone: Start: 08-18-2024 End: 08-18-2024 ambulatory [facility] Start: 07-30-2024 End: 08-27-[address] Malika Samuels MD -Cardiac Rehab Work Phone: Start: 07-30-2024 End: 08-27-2024 ambulatory [facility] Facility:[facility] Start: 07-16-2024 End: 07-27-2024 ambulatory [facility] Start: 07-16-2024 End: 07-27-[address] Malika Samuels MD -Cardiac Rehab Work Phone: Start: 06-17-2024 End: 06-17-[address] Nathan Guzman DO -Outpatient Breast Imaging Work Phone: Start: 06-17-2024 End: 06-17-2024 ambulatory [facility] Facility:[facility] Start: 06-16-2024 Encounter for genera l adult medical examination without abnormal findings [facility] Start: 06-14-2024 End: 06-14-2024 ambulatory [facility] [place] [facility]ulatory Start: 06-14-2024 End: 06-14-2024 Office outpatient visit 15 minutes Rudy Coker DO Work Phone: [facility] Comment on above: Primary osteoarthrit is of both hands (Primary Dx); Psoriasis Start: 05-28-2024 End: 05-28-2024 ambulatory Rose Beverly [facility] Start: 05-28-2024 End: 05-28-2024 Patient encounter procedure [facility] Start: 05-26-2024 End: 05-27-2024 ambulatory [facility] Facility:[facility] Start: 05-25-2024 End: 05-25-2024 ambulatory [facility] Start: 05-24-2024 ambulatory [facility] Facility: [facility] Start: 05-24-2024 End: 05-24-[address] [facility] Facility:[facility] Start: 05-17-2024 End: 05-17-2024 Telephone encounter [...] End: 04-27-2024 Patient encounter procedure Sam Lerma WEBLOGIC DEVELOPER.AIRCRAFT MAINTENANCE ENGINEER Work Phone: Cardiothoracic Comment on above: S/P mitral valve rep air (Primary Dx); Pleural effusion Start: 04-27-2024 End: 04-27-2024 ambulatory Nnamdi GREENWOOD Facility:[facility] Start: 04-27-2024 End: 04-27-2024 Subsequent hospital visit by physician Xr Chest Main J1 Work Phone: Radiology Comment on above: Surgery follow-up [Z 09] Start: 04-26-2024 ambulatory Jeyson Galvan EMPLOYEE BENEFITS COORDINATOR Facility :[facility] Start: 04-22-2024 End: 04-22-2024 Telephone encounter Jaqui Acuña APRN.AIRCRAFT MAINTENANCE ENGINEER Work Phone: Cardiothoracic Start: 04-21-2024 End: 04-21-2024 Telephone encounter Nnamdi Greenwood MD Work Phone: Cardiology Comment on above: Post Dc Program Call - Needs Attn Returning Patient's Call Start: 04-19-2024 End: 04-19-2024 Telephone encounter Josephine Ferrari RN NOC Comment on above: Follow Up Phone Call (All clear) Start: 04-16-2024 End: 04-16-2024 Orders Only Nnamdi Greenwood MD Work Phone: Cardiothoracic Comment on above: Surgery follow-up (P rimary Dx) Start: 04-14-2024 End: 04-18-2024 Evaluation and management of inpatient NATHAN Coto [facility] Facility:[facility] Start: 04-13-2024 End: 04-13-2024 Admission to same day surgery center Anesthesia Clearance Work Phone: [facility] Work Phone: Start: 04-13-2024 End: 04-13-2024 ambulatory Nnamdi Greenwood MD Work Phone: Cardiothoracic Comment on above: Patient Education Start: 04-13-2024 End: 04-13-[address] [facility] Work Phone: Cardiothoracic Comment on above: Pre-op exam (Primary Dx) Encounter for preope rative anesthesiology assessment for cardiac surgery (Primary Dx) Nonrheumatic mitral valve regurgitation (Primary Dx) Start: 04-13-2024 End: 04-13-2024 Preprocedural examination done JOSEPH Greenwood MD Work Phone: [facility] Start: 04-12-2024 End: 04-12-2024 ambulatory Nnamdi GREENWOOD Facility:[facility] Start: 04-12-2024 Encounter for preprocedural cardiovascular examination JOSEPH GREENWOOD [facility] Start: 04-12-2024 End: 04-12-2024 ambulatory Nnamdi GREENWOOD Facility:[facility] Start: 04-12-2024 End: 04-12-2024 Patient encounter status Xr J1 Work Phone: [facility] Start: 04-12-2024 End: 04-12-2024 Subsequent hospital visit by physician Xr Chest Main J1 Work Phone: Radiology Comment on above: 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] Start: 04-12-2024 End: 04-12-2024 ambulatory JEYSON HOFF Facility:[facility] Start: 04-12-2024 End: 04-12-2024 Office consultation new/estab patient 60 min Jeyson Hoff MD Work Phone: Cardiology Comment on above: Nonrheumatic mitral valve regurgitation (Primary Dx) Start: 04-09-2024 Preprocedural examin ation done Jeyson Hoff MD Work Phone: [facility] Start: 03-09-2024 Patient encounter status A Radha Greenwood MD Work Phone: [facility] Start: 03-09-2024 Telephone encounter Nnamdi delgado MD Work Phone: Cardiothoracic Comment on above: Insurance Inquiry Referral Information ; Pre-Op CTHO Consult; Cardiac Preop Checklist Start: 03-08-2024 End: 03-08-2024 ambulatory [facility] Facility:[facility] Start: 02-27-2024 Telephone encounter Maulik cervantes MD Work Phone: [facility] Comment on above: Future Appointment; Dental Clearance - Open Heart Surgery (Received 02/27/24) Start: 02-27-2024 End: 02-27-2024 ambulatory [facility] Facility:[facility] Start: 02-25-2024 Telephone encounter Maulik cervantes MD Work Phone: [place] [employer] Comment on above: Preparations For Pro cedures Start: 02-24-2024 End: 02-24-2024 Patient encounter procedure Maulik Mitchell MD Work Phone: [facility] Comment on above: Nonrheumatic mitral valve regurgitation (Primary Dx) Start: 02-24-2024 End: 02-24-2024 ambulatory MAULIK MITCHELL Facility[facility] Start: 02-18-2024 Telephone encounter Maulik cervantes MD Work Phone: [facility] Comment on above: Consult (FAXED REFER RAL) Start: 02-16-2024 Telephone encounter Naomy Thomas MD Work Phone: [facility] Cardiology [place] Comment on above: Patient Update Start: 02-16-2024 End: 02-16-2024 ambulatory Jeyson Galvan NP Facility:[facility] Start: 02-12-2024 End: 04-15-2024 Telephone encounter Naomy Thomas MD Work Phone: [facility] Cardiology [place] Comment on above: Preparations For Pro cedures Start: 01-23-2024 Telephone encounter Naomy Thomas MD Work Phone: [facility] [place] Comment on above: Results Start: 01-09-2024 End: 01-09-2024 Patient encounter procedure Troy Byrd APRN.AIRCRAFT MAINTENANCE ENGINEER Work Phone: [facility] Comment on above: Supraventricular tac hycardia (HCC) (Primary Dx); Intermittent palpitations; Heart murmur; Nonrheumatic mitral (valve) prolapse; Essential (primary) hypertension Start: 01-09-2024 End: 01-09-2024 ambulatory TROY BYRD Facility:[facility] Start: 12-25-2023 Telephone encounter Naomy Thomas MD Work Phone: [facility] Cardiology [place] Comment on above: Preparations For Pro cedures Start: 11-21-2023 End: 11-21-[address] Nathan Guzman Work Phone: [facility] Work Phone: Start: 11-21-2023 End: 11-21-[address] Nathan Guzman Work Phone: [facility]-Laboratory, Specimen Work Phone: Start: 11-20-2023 End: 11-20-2023 Emergency department patient visit Dr. Nathan Guzman Work Phone: [facility]-Emergency Department Work Phone: Start: 10-09-2023 End: 10-09-[address] Nathan Guzman Work Phone: [facility] Work Phone: Start: 08-25-2023 End: 08-26-2023 ambulatory [facility] Start: 08-25-2023 End: 08-25-2023 ambulatory [facility] [place] Ambulatory Start: 06-26-2023 Telephone encounter Naomy Thomas MD Work Phone: [place] [facility] Start: 06-10-2023 ambulatory CHA FLEMING MD Facility:A Start: 05-12-2023 End: 05-12-[address] Nathan Guzman Work Phone: [facility] Work Phone: Start: 05-12-2023 End: 05-12-[address] Nathan Guzman Work Phone: [facility]-Outpatient Breast Imaging Work Phone: Start: 04-07-2023 End: 04-07-[address] Nathan Guzman Work Phone: [facility] Work Phone: Start: 03-14-2023 Telephone encounter Naomy Thomas MD Work Phone: [facility] [place] Comment on above: [employer] Start: 02-03-2023 Office outpatient vi sit 25 minutes Nathan Guzman Work Phone: [facility] Work Phone: Start: 02-03-2023 Patient encounter procedure [facility] Work Phone: Start: 01-15-2023 End: 01-15-2023 Patient encounter procedure Naomy Thomas MD Work Phone: [facility] Cardiology [place] Comment on above: Supraventricular tac hycardia (HCC) (Primary Dx); Intermittent palpitations Start: 01-09-2023 End: 01-09-[address] Nathan Guzman Work Phone: [facility] Work Phone: Start: 01-09-2023 End: 01-09-[address] Nathan Guzman Work Phone: [facility] Start: 01-09-2023 Chart Update Nathan ash Work Phone: [facility] 2500 DO Work Phone: Start: 01-06-2023 ambulatory DO RUDY HELE N MUOH Facility:[id number] Start: 01-06-[address] Nathan Guzman Facility:[id number] Start: 01-02-2023 End: 01-02-[address] Nathan Guzman Work Phone: [facility] Start: 12-31-2022 Non-patient / Non-visit Dr. Kevan Guzman Work Phone: [facility] Start: 12-26-2022 End: 12-26-[address] Nathan Guzman Work Phone: [facility] Start: 12-24-2022 End: 12-25-2022 Emergency department patient visit Dr. Nathan Guzman Work Phone: [facility]-Emergency Department Start: 12-18-2022 End: 12-18-2022 Emergency department patient visit Dr. Nathan Guzman Work Phone: [facility]-Emergency Department Start: 12-10-2022 Non-patient / Non-visit Dr. Kevan Guzman Work Phone: [facility] Start: 12-06-2022 End: 12-06-[address] Nathan Guzman Work Phone: [facility] Start: 12-03-2022 Non-patient / Non-visit Dr. Kevan Guzman Work Phone: [facility] Start: 12-03-2022 End: 12-03-[address] Nathan Guzman Work Phone: [facility] Work Phone: Start: 12-03-2022 End: 12-03-[address] Nathan Guzman Work Phone: [facility]-Cardiovascular Services Start: 11-29-2022 End: 11-29-[address] Nathan Guzman Work Phone: [facility] Start: 11-25-2022 End: 11-25-[address] Nathan Guzman Work Phone: [facility] Start: 11-18-2022 End: 11-18-[address] Nathan Guzman Work Phone: [facility]-Laboratory, Specimen Start: 11-11-2022 End: 11-11-[address] Nathan Guzman Work Phone: [facility] Work Phone: Start: 11-11-2022 End: 11-11-[address] Nathan Guzman Work Phone: [facility]-Laboratory Start: 11-11-2022 End: 11-11-2022 Admission to same day surgery center Dr. Nathan Guzman Work Phone: [facility] Start: 11-11-2022 End: 11-11-[address] Nathan Guzman Work Phone: [facility] Start: 11-08-2022 End: 11-08-[address] Nathan Guzman Work Phone: [facility]-Laboratory, Specimen Start: 11-07-2022 Non-patient / Non-visit Dr. Kevan Guzman Work Phone: [facility] Start: 11-04-2022 Non-patient / Non-visit Dr. Kevan Guzman Work Phone: [facility] Start: 11-04-[address] Anabela Guzman Work Phone: [facility] Start: 08-23-2022 End: 08-23-[address] Nathan Guzman Work Phone: [facility] Start: 07-23-2022 End: 07-23-[address] Nathan Guzman Work Phone: [facility] Start: 06-29-2022 End: 06-29-[address] Nathan Guzman Work Phone: [facility] Work Phone: Start: 06-29-2022 End: 06-29-[address] Nathan Guzman Work Phone: [facility] Start: 06-25-2022 End: 06-25-[address] Nathan Guzman Work Phone: [facility] Work Phone: Start: 06-25-2022 End: 06-25-[address] Nathan Guzman Work Phone: [facility]-Laboratory Start: 06-25-2022 End: 06-25-[address] Nathan Guzman Work Phone: [facility] Start: 06-05-[address] Nathan Guzman Work Phone: [facility]-Physical Therapy Start: 05-30-2022 End: 05-30-[address] Nathan Guzman Work Phone: [facility] Work Phone: Start: 05-30-2022 End: 05-30-[address] Nathan Guzman Work Phone: [facility] Start: 05-07-2022 End: 05-07-2022 ambulatory EMPLOYEE BENEFITS COORDINATOR-C Shilpa Rosales EMPLOYEE BENEFITS COORDINATOR Work Phone: [facility] Work Phone: Start: 05-07-2022 End: 05-07-2022 Patient encounter procedure EMPLOYEE BENEFITS COORDINATOR-C Shilpa Rosales EMPLOYEE BENEFITS COORDINATOR Work Phone: [facility]-Outpatient Breast Imaging Start: 05-03-2022 Registered Recurring EMPLOYEE BENEFITS COORDINATOR-C Shilpa Rosales EMPLOYEE BENEFITS COORDINATOR Work Phone: [facility]-Physical Therapy Start: 05-01-2022 Non-patient / Non-visit EMPLOYEE BENEFITS COORDINATOR-C Anabela Rosales EMPLOYEE BENEFITS COORDINATOR Work Phone: [facility] Start: 05-01-2022 End: 05-01-2022 Admission to same day surgery center EMPLOYEE BENEFITS COORDINATOR-C Shilpa Rosales EMPLOYEE BENEFITS COORDINATOR Work Phone: [facility]-Endoscopy Start: 05-01-2022 End: 05-01-2022 ambulatory EMPLOYEE BENEFITS COORDINATOR-C Shilpa Rosales EMPLOYEE BENEFITS COORDINATOR Work Phone: [facility] Work Phone: Start: 04-26-2022 End: 04-26-2022 Patient encounter procedure EMPLOYEE BENEFITS COORDINATOR-C Shilpa Rosales EMPLOYEE BENEFITS COORDINATOR Work Phone: [facility] Start: 04-19-2022 End: 04-19-2022 ambulatory EMPLOYEE BENEFITS COORDINATOR-C Shilpa Taia EMPLOYEE BENEFITS COORDINATOR Work Phone: [facility] Work Phone: Start: 04-19-2022 End: 04-19-2022 Patient encounter procedure EMPLOYEE BENEFITS COORDINATOR-C Shilpa Taia EMPLOYEE BENEFITS COORDINATOR Work Phone: [facility] Start: 04-18-2022 End: 04-18-2022 Patient encounter procedure EMPLOYEE BENEFITS COORDINATOR-C Shilpa Taia EMPLOYEE BENEFITS COORDINATOR Work Phone: [facility] Start: 04-13-2022 End: 04-13-2022 Emergency department patient visit EMPLOYEE BENEFITS COORDINATOR-C Shilpa Rosales EMPLOYEE BENEFITS COORDINATOR Work Phone: [facility]-Emergency Department Start: 04-05-2022 End: 04-05-2022 Patient encounter procedure EMPLOYEE BENEFITS COORDINATOR-C Shilpa Taia EMPLOYEE BENEFITS COORDINATOR Work Phone: [facility] Start: 03-28-2022 End: 03-28-2022 ambulatory EMPLOYEE BENEFITS COORDINATOR-C Shilpa Taia EMPLOYEE BENEFITS COORDINATOR Work Phone: [facility] Work Phone: Start: 03-28-2022 End: 03-28-2022 Patient encounter procedure EMPLOYEE BENEFITS COORDINATOR-C Shilpa Taia EMPLOYEE BENEFITS COORDINATOR Work Phone: [facility]-Laboratory, Specimen Start: 03-27-2022 End: 03-27-2022 ambulatory EMPLOYEE BENEFITS COORDINATOR-C Shilpa Taia EMPLOYEE BENEFITS COORDINATOR Work Phone: [facility] Work Phone: Start: 03-27-2022 End: 03-27-2022 Patient encounter procedure EMPLOYEE BENEFITS COORDINATOR-C Shilpa Taia EMPLOYEE BENEFITS COORDINATOR Work Phone: [facility]-Laboratory Start: 03-13-2022 End: 03-13-2022 Patient encounter procedure EMPLOYEE BENEFITS COORDINATOR-C Shilpa Rosales EMPLOYEE BENEFITS COORDINATOR Work Phone: [facility]-Laboratory Start: 01-31-2022 End: 01-31-2022 Patient encounter procedure EMPLOYEE BENEFITS COORDINATOR-C Shilpa Rosales EMPLOYEE BENEFITS COORDINATOR Work Phone: [facility]-Nuclear Medicine, [facility] Start: 01-16-2022 End: 01-16-2022 Patient encounter procedure EMPLOYEE BENEFITS COORDINATOR-C Shilpa Rosales EMPLOYEE BENEFITS COORDINATOR Work Phone: [facility]-Laboratory Start: 01-14-2022 End: 01-14-2022 Patient encounter procedure EMPLOYEE BENEFITS COORDINATOR-C Shilpa Rosales EMPLOYEE BENEFITS COORDINATOR Work Phone: [facility] Start: 09-19-2021 End: 09-19-2021 Patient encounter procedure EMPLOYEE BENEFITS COORDINATOR-C Shilpa Rosales EMPLOYEE BENEFITS COORDINATOR Work Phone: [facility] Start: 04-03-2021 End: 04-03-2021 Annotation/Addendum Shilpa Rosales AIRCRAFT MAINTENANCE ENGINEER Work Phone: [facility] Start: 03-26-2021 End: 03-26-2021 Periodic preventive med est patient 40-64yrs Shilpa Rosales AIRCRAFT MAINTENANCE ENGINEER Work Phone: [facility] Start: 03-23-2021 End: 03-23-2021 Office outpatient visit 10 minutes Shilpa Rosales AIRCRAFT MAINTENANCE ENGINEER Work Phone: [facility] Start: 03-14-2021 End: 03-14-2021 Annotation/Addendum Shilpa Rosales AIRCRAFT MAINTENANCE ENGINEER Work Phone: [facility] Start: 03-13-2021 End: 03-13-2021 Office outpatient visit 25 minutes Shilpa Rosales AIRCRAFT MAINTENANCE ENGINEER Work Phone: [facility] Start: 04-04-2020 End: 04-04-2020 Lab Order Shilpa Rosales [facility] Start: 03-24-2020 End: 03-24-2020 Office outpatient visit 15 minutes [facility] Start: 02-28-2020 End: 02-28-2020 Periodic preventive med est patient 40-64yrs [facility] Start: 07-07-2019 End: 07-07-2019 Annotation/Addendum [facility]ilpa [facility] Start: 06-28-2019 End: 06-28-2019 Office outpatient visit 15 minutes [facility] Start: 06-16-2018 End: 06-16-2018 Periodic preventive med est patient 40-64yrs [facility] Start: 04-13-2018 End: 04-13-2018 Periodic preventive med est patient 40-64yrs Shilpa Connie [facility] Start: 05-05-2017 End: 05-05-2017 Periodic preventive med est patient 40-64yrs Shilpa Connie [facility] Start: 03-07-2017 End: 03-07-2017 Office outpatient visit 15 minutes [facility] Start: 04-12-2016 End: 04-12-2016 Lab Order [facility] Start: 04-05-2016 End: 04-05-2016 Periodic preventive med est patient 40-64yrs [facility] Start: 05-15-2015 End: 05-15-2015 Office outpatient visit 25 minutes [facility] Start: 02-10-2015 End: 02-10-2015 Office outpatient visit 15 minutes [facility] Start: 10-24-2014 End: 10-24-2014 Phone Encounter [facility]il[facility] Start: 10-03-2014 End: 10-03-2014 Office outpatient visit 15 minutes [facility] Start: 09-26-2014 End: 09-26-2014 Phone Encounter [facility]ilpa [facility] Start: 09-26-2014 End: 09-26-2014 Office outpatient visit 15 minutes [facility] Start: 05-16-2014 End: 05-16-2014 Office outpatient visit 15 minutes [facility] Start: 05-11-2014 End: 05-11-2014 Office outpatient visit 25 minutes [facility] Start: 12-08-2013 End: 12-08-2013 Phone Encounter [facility]il[facility] Start: 12-08-2013 End: 12-08-2013 Phone Encounter [facility]ilpa [facility] Start: 12-07-2013 End: 12-07-2013 Patient encounter procedure Shilpa Rozinakathiennamdi [facility] Start: 10-15-2013 End: 10-17-2013 Patient encounter procedure Shilpa Connie [facility] Start: 07-09-2013 End: 07-09-2013 Office outpatient visit 15 minutes Shilpa Rozinakathiennamdi [facility] Start: 07-02-2013 End: 07-02-2013 Office outpatient visit 15 minutes [facility] Start: 06-11-2013 End: 06-12-2013 Patient encounter procedure Shilpa Connie [facility] Start: 06-01-2013 End: 06-01-2013 Annotation/Addendum [facility]ilpa [facility] Start: 05-31-2013 End: 05-31-2013 Office outpatient visit 15 minutes [facility] Start: 10-28-2012 End: 10-28-2012 Phone Encounter [facility]ilpa [facility] Start: 10-19-2012 End: 10-19-2012 Phone Encounter [facility]ilpa [facility] Start: 2012 End: 2012 Phone Encounter [facility]ilpa [facility] Start: 10-08-2012 End: 10-08-2012 Patient encounter procedure [facility] Start: 09-22-2012 End: 09-22-2012 Patient encounter procedure [facility] Start: 09-04-2012 End: 09-04-2012 Phone Encounter Shilpa Rozinakathiennamdi [facility] Start: 04-15-2012 End: 04-15-2012 Patient encounter procedure [facility] Start: 03-17-2012 End: 03-17-2012 Phone Encounter Shilpa Connie [facility] Start: 03-16-2012 End: 03-16-2012 Phone Encounter Shilpa Tainnamdi [facility] Start: 03-16-2012 End: 03-16-2012 Patient encounter procedure [facility] Start: 03-04-2012 End: 03-05-2012 Patient encounter procedure Shilpa Connie [facility] Start: 11-27-2011 End: 11-28-2011 Patient encounter procedure Shilpa Connie [facility] Start: 08-07-2011 End: 08-07-2011 Patient encounter procedure [facility] Start: 06-12-2011 End: 06-12-2011 Patient encounter procedure [facility] Start: 04-15-2011 End: 04-15-2011 Patient encounter procedure [facility] Start: 08-03-2010 End: 08-06-2010 Patient encounter procedure Shilpa Rozinakathiennamdi [facility] Start: 06-25-2010 End: 06-25-2010 Patient encounter procedure Shilpa Rozinakathiennamdi [facility] Start: 04-12-2010 End: 04-12-2010 Patient encounter procedure [facility] Start: 02-26-2010 End: 02-26-2010 Patient encounter procedure Shilpa Connie [facility] Start: 01-26-2010 End: 01-26-2010 Phone Encounter Shilpa Connie [facility] Start: 01-01-2010 End: 01-01-2010 Patient encounter procedure [facility] Start: 05-22-2009 End: 05-22-2009 Patient encounter procedure [facility] Start: 03-06-2009 End: 03-06-2009 Patient encounter procedure [facility] Start: 02-06-2009 End: 02-06-2009 Patient encounter procedure [facility] Start: 10-07-2008 End: 10-09-2008 Patient encounter procedure Shilpa Handykathiennamdi [facility] Start: 08-22-2008 End: 08-22-2008 Erroneous Entry Shilpa [facility] Start: 08-22-2008 End: 08-22-2008 Office outpatient visit 40 minutes [facility] Start: 06-07-2008 End: 06-07-2008 Patient encounter procedure [facility] Start: 03-17-2008 End: 03-17-2008 Patient encounter procedure [facility] Start: 01-04-2008 End: 01-04-2008 Office outpatient visit 25 minutes [facility] Start: 12-09-2007 End: 12-10-2007 Patient encounter procedure [facility] Start: 10-12-2007 End: 10-12-2007 Patient encounter procedure [facility] Start: 05-29-2007 End: 05-29-2007 Historical Summary [facility]ilpa [facility] Start: 05-27-2007 End: 05-28-2007 Patient encounter procedure [facility] Start: 02-26-2007 End: 02-26-2007 Historical Summary [facility] C[facility] Start: 11-19-2006 End: 11-19-2006 Patient encounter procedure [facility]ilpa Rosales [facility] Start: 11-14-2006 End: 11-14-2006 Historical Summary [facility] Start: 10-14-2006 End: 10-14-2006 Historical Summary [facility] Patient encounter status Andrew Stewart ROOF PLUMBER [facility]; [facility] Work Phone: Comment on above: has had hyst but one ovary remains Patient encounter status Adelaide Colette AMAYA N [facility]; [facility] Work Phone: Comment on above: has had hyst but one ovary remains Physical examination Andrew Terry AMAYAN [facility]; [facility] Work Phone: Physical examination Andrew Terry AMAYAN [facility]; [facility] Work Phone: Physical examination Adelaide Alvarenga LPN Co [facility]; [facility] Work Phone: Procedures Date Procedure Procedure Detail Performing Clinician Start: 01-04-2025 Computed tomography of abdomen and pelvis with contrast Dr. Nathan Guzman DO Work Phone: Start: 01-02-[address] Nathan Guzman DO Work Phone: Start: 12-28-2024 Iadna-dna/rna gi pthgn multiplex probe [...] Start: 04-27-2024 Radiologic exam chest 2 views Nnamdi Greenwood MD Work Phone: Start: 04-16-2024 Echocardiography JOSEPH GREENWOOD Start: 04-12-2024 Echocardiography JOSEPH GREENWOOD Start: 04-12-2024 CTA CHEST/ABD/PEL (GATED) W IVCON Nnamdi Greenwood MD Work Phone: Start: 04-12-2024 Antibody screen JOSEPH GREENWOOD Comment on above: Order Comment: Specimen Type: BLOOD SPEC IMENOrdering Facility: [facility] Address: [address] [place] [address] Performed By: #### T SCR30 ####CC [facility] BLOOD BANKIA [id number] [address] Start: 04-12-2024 Radiologic exam chest 2 views A Igor Greenwood MD Work Phone: Start: 01-09-2024 Ecg routine ecg w/least 12 lds w/i&r Troy Byrd APRN.CNP Work Phone: Start: 11-21-2023 Clostridium difficile detection [...] Guzman Work Phone: Start: 05-07-2022 Screening mammography EMPLOYEE BENEFITS COORDINATOR-C Shilpa Rosales EMPLOYEE BENEFITS COORDINATOR Work Phone: Start: 05-01-2022 End: 05-01-2022 Colonoscopy EMPLOYEE BENEFITS COORDINATOR-C Shilpa Rosales EMPLOYEE BENEFITS COORDINATOR Work Phone: Start: 04-19-2022 Computed tomography of abdomen and pelvis with contrast EMPLOYEE BENEFITS COORDINATOR-C Shilpa Rosales EMPLOYEE BENEFITS COORDINATOR Work Phone: Start: 04-13-2022 Radiologic examination of knee EMPLOYEE BENEFITS COORDINATOR-C Shilpa Rosales EMPLOYEE BENEFITS COORDINATOR Work Phone: Start: 01-31-2022 Radionuclide gastric emptying study EMPLOYEE BENEFITS COORDINATOR-C Shilpa Rosales EMPLOYEE BENEFITS COORDINATOR Work Phone: Start: 09-19-2021 Radiologic examination of knee EMPLOYEE BENEFITS COORDINATOR-C Shilpa Rosales EMPLOYEE BENEFITS COORDINATOR Work Phone: Start: 09-19-2021 End: 09-19-2021 Knee 4 or More Views Comments: See Note; NOTES: [facility] Radiology [address] [place] [address] Knee 4 or More Views MR#: [id number] Acct: [id number] Name: CAMMIE BHAT Rep #: [id number] : 1970 F 50 From: Harshal De Leon MD PCP: NADYA Trinidad Status: DEP AMB Study: Knee 4 or More Views Date of Exam: 09/19/21 Exam# [id number] Ordering Dr: Shon Bray STUDY: X-RAY - [...] Harshal De Leon MD at 12:21 EST , CC: NADYA Rosales; AGUS Bray Chief Juvenile Probation Officer: Signed Shilpa Rosales Work Phone: Start: 09-19-2021 End: 09-20-2021 Orthopedic Visit Report Comments: See Note; NOTES: [facility] Medicine [address] [place] [address] [address] [place] [address] OFFICE VISIT Date of Service: 09/19/21 MR#: [id number] Acct: [id number] Name: CAMMIE BHAT Rep #: [id number] : 1970 Provider: AGUS Bray Age/Sex: 50/F [...] mg SUBCUT Q4W 09/19/21 [History Confirmed 09/19/21] [facility] Medical History (Updated 09/20/21 @ 16:12 by AGUS Ochoa) Alcohol use Anemia Arthritis Attention-deficit hyperactivity disorder, [...] decisions made by me, AGUS Tirado 09/19/21 0859. CAMMIE BHAT is a 50 year old [...] or More Views 09/19/21 M25.561 Plan - Shon GOLDSMITH PA: Patient presents the office today with right [...] therapy. She can do ice and an xnrq-npu-jimxvbp anti-inflammatory as needed. She can return with continued pain for possible injection of the knee. Notify of any new injuries, increasing pain, or any other signs or symptoms. This note was generated with ERPLYation software. It may contain incorrect words, spelling, and punctuation that were not noted in checking the note before signing. 09/20/21 1616 <Electronically signed by Shon GOLDSMITH> Date ___ Shon GOLDSMITH Cosigner Signature: Date ___ (if applicable) CC: Shilpa Rosales Work Phone: Start: 05-15-2021 End: 05-23-2021 Operative Report Comments: See Note; NOTES: [facility] Medical Records Department [address] [place] [address] Operative Report 05/15/21 1336 MR#: [id number] Acct: [id number] Name: CAMMIE BHAT Rep #: [id number] : 1970 50 From: Nasra Sandhu MD PCP: NADYA Trinidad Status:[facility] Location: [place] [address] Report of Operation Date of Procedure: 05/15/21 Pre-Operative Diagnosis: abnormal gallbladder ultrasound, nausea and emesis Post-Operative Diagnosis: same Surgery/Procedure Performed:: laparoscopic cholecystectomy with cholangiograms Description of Surgical Findings:: probable chronic cholecystitis Surgeon: Nasra Sandhu field consultant: Casey Trejo Type of Anesthesia: General Anesthesiologist: [...] The periumbilical fascia was approximated with a gfjpxu-tf-eivuv 0 vicryl suture. All skin incision were [...] Yes VTE Mechan Device Prophylaxis: SCD's 05/15/21 9016 <Electronically signed by Nasra Sandhu MD> Cosigner Signature (if applicable): CC: EMPLOYEE BENEFITS COORDINATORKaren Rosales; Dr. Az Miller MD; Dr. Nasra Sandhu MD Signed Shilpa Rosales AIRCRAFT MAINTENANCE ENGINEER Work Phone: Start: 05-15-2021 End: 05-18-2021 Cholangiogram/ O R,Initial Comments: See Note; NOTES: [facility] Imaging Services [address] [place] [address] Cholangiogram/ O R,Initial MR#: [id number] Acct: [id number] Name: CAMMIE BHAT Rep #: [id number] : 1970 F 50 From: Geoff linares MD PCP: NADYA Trinidad Status: [facility] Study: Cholangiogram/ O R,Initial Date of Exam: 05/15 Exam# [id number] Ordering Dr: Nasra Sandhu MD STUDY: LAPAROSCOPIC [...] 14:31 EDT , Service support , CC: EMPLOYEE BENEFITS COORDINATOR-C Shilpa Rosales; Dr. Nasra Sandhu MD Chief Juvenile Probation Officer: Signed Shilpa Rosales CNP Work Phone: Start: 05-15-2021 End: 05-23-2021 Discharge Instruction Comments: See Note; NOTES: [facility] Medical Records Department [address] [place] [address] Instructions for Home/Discharge Instructions 05/15/21 1244 MR#: [id number] Acct: [id number] Name: CAMMIE BHAT Rep #: [id number] : 1970 50 From: Nasra Sandhu MD PCP: NADYA Trinidad Status:REG [facility] Discharge Instructions Follow Up Care Test Results: [...] call my office at and ask the dry ice machine operator for the general surgery nurses desk [...] 0 Referrals / Follow Up: Shilpa Rosales EMPLOYEE BENEFITS COORDINATOR, EMPLOYEE BENEFITS COORDINATOR-C [Primary Care Provider] - Disposition Disposition (needs filled in before D/C Order can be placed): Home, Self Care 05/15/21 1402<Electronically signed by Nasra Sandhu MD>Nasra Sandhu MD CC: EMPLOYEE BENEFITS COORDINATOR-C Shilpa Rosales; Dr. Az Miller MD Signed Shilpa Rosales AIRCRAFT MAINTENANCE ENGINEER Work Phone: Start: 05-14-2021 End: 05-18-2021 12 Lead EKG Comments: See Note; NOTES: [facility] Cardiovascular Services [address] [place] [address] 12 Lead EKG 05/14/21 1312 MR#: [id number] Acct: [id number] Name: CAMMIE BHAT Rep #: [id number] : 1970 50 From: Roger Dietz MD Attending Dr: Dr. Nasra Sandhu MD Status: PRE SD C Ordering Dr: Az Miller MD Date: 05/14/21 Location: [facility] Sex: F C Admitted: Test Reason : [...] Abnormal ECG Confirmed by ROGER DIETZ MD ([id number]), multimedia editor ATILIO ESCOBEDO ([id number]) on 05/15/2021 9:27:07 AM Referred By: Nasra Sandhu Confirmed By:ROGER DIETZ MD 05/15/21 0927 Date ___ Roger Dietz MD CC: EMPLOYEE BENEFITS COORDINATOR-C Shilpa Rosales; Dr. Az Miller MD; Dr. Nasra Sandhu MD Signed Shilpa Rosales CNP Work Phone: Start: 05-07-2021 End: 05-23-2021 History and Physical Exam Comments: See Note; NOTES: [facility] Medical Records Department [address] [place] [address] History Physical Exam 05/07/21 0810 MR#: [id number] Acct: [id number] Name: CAMMIE BHAT Rep #: [id number] : 1970 50 From: Nasra Sandhu MD PCP: NADYA Trinidad Status:PRE [facility] Location: [facility] History and Physical Date of Admission: 05/08/21 [...] Sandhu MD> Cosigner Signature (if applicable): CC: EMPLOYEE BENEFITS COORDINATOR-C Shilpa Rosales; Dr. Nasra Sandhu MD Signed Shilpa Rosales [facility] Work Phone: Start: 04-03-2021 End: 04-03-2021 SCRN MAMM (CAD)W/EMETERIO BILAT Comments: See Note; NOTES: [facility] Imaging Services [address] [place] [address] SCRN MAMM (CAD)W/EMETERIO BILAT MR#: [id number] Acct: [id number] Name: CAMMIE BHAT Rep #: [id number] : 1970 F 50 From: Geoff linares MD PCP: NADYA Trinidad Status: [facility] Study: SCRN MAMM (CAD)W/EMETERIO BILAT Date of Exam: 02/14 Exam# [id number] Ordering Dr: Shilpa Rosales NP EMPLOYEE BENEFITS COORDINATOR-C MAMMOGRAPHY - BILATERAL SCREENING REASON FOR EXAM: [...] delay biopsy of a clinically suspicious abnormality. [id number] Electronically Signed: Geoff Andrew MD at 13:57 EDT , Service support , CC: NADYA Rosales Chief Juvenile Probation Officer: Signed Shilpa Rosales AIRCRAFT MAINTENANCE ENGINEER Work Phone: Start: 03-20-2021 End: 03-20-2021 Liver Comments: See Note; NOTES: [facility] Imaging Services [address] [place] [address] Liver MR#: [id number] Acct: [id number] Name: CAMMIE BHAT Rep #: [id number] : 1970 F 50 From: Geoff linares MD PCP: NADYA Trinidad Status: REG CLI Study: Liver Date of Exam: 03/20/21 Exam# [id number] Ordering Dr: Shilpa Rosales NP EMPLOYEE BENEFITS COORDINATOR-C STUDY: ABDOMINAL ULTRASOUND - RIGHT UPPER QUADRANT [...] , Service support , CC: NADYA Rosales Chief Juvenile Probation Officer: Signed Aarti Connie AIRCRAFT MAINTENANCE ENGINEER Work Phone: Start: 06-05-2020 End: 06-05-2020 Shoulder min 2 Views Comments: See Note; NOTES: [facility] Radiology [address] [place] [address] Shoulder min 2 Views MR#: [id number] Acct: [id number] Name: CAMMIE BHAT Rep #: [id number] : 1970 F 49 From: Geoff linares MD PCP: NADYA Trinidad Status: DEP AMB Study: Shoulder min 2 Views Date of Exam: 06/05/20 Exam# [id number] Ordering Dr: Shon Bray STUDY: X-RAY - [...] support , CC: NADYA Rosales; AGUS Bray Chief Juvenile Probation Officer: Signed Shilpa Rosales Start: 06-05-2020 End: 06-05-2020 Orthopedic Visit Report Comments: See Note; NOTES: [facility] [address] [place] [address] [address] [place] [address] OFFICE VISIT Date of Service: 06/05/20 MR#: [id number] Acct: [id number] Name: CAMMIE BHAT Rep #: [id number] : 1970 Provider: AGUS Bray Age/Sex: 49/F Location: [facility] Status: Signed with Addenda ADDENDUM by Grace Buchanan on 06/05/20 at 1514 OFFICE PROCEDURES Office Procedure Documentation entered by [...] if they have any concerns. Office Meds Kenalog Performing Provider: AGUS Ochoa Administered by: Grace Buchanan on 06/05/20 15:13 Dose Route Admin Location Lot Number Expiration Date NDC Manufactu rer 80 mg intra-articular right subacromial inj [id number] 04/27/21 4836-3714-40 [facility] 06/05/20 6544 <Electronically signed by Grace Buchanan > Date [...] mg SQ Q14D 01/23/17 [History Confirmed 06/05/20] [facility] Social History (Updated 06/05/20 @ 14:06 by AGUS Ochoa) Smoking Status: Current every day smoker HPI RIGHT SHOULDER: Details: Parts of this documentation were recorded by a scribe, this documentation accurately reflects the service provided and the decisions made by me, AGUS Tirado 06/05/20 1311. CAMMIE BHAT is [...] Apprehension Test, Sulcus Sign, empty can or [place] Internal Rotation: Tip of Scapula SHOULDER: Patient [...] or symptoms. This note was generated with NovoDynamics dictation software. It may contain incorrect words, spelling, and punctuation that were not noted in checking the note before signing. Orders Orders: Shoulder min 2 Views Today M25.511 Coding Level of Care Code Attention Castro Diagnoses Impingement syndrome of right shoulder M75.41 Comment CPT???30544???injection/aspirati on into a major joint/bursa 06/05/20 1406 <Electronically signed by Shon GOLDSMITH> Date ___ Shon GOLDSMITH Cosigner Signature: Date ___ (if applicable) CC: Shilpa Rosales Start: 03-20-2020 End: 03-20-2020 SCREEN MAMM (CAD) W/EMETERIO BILAT Comments: See Note; NOTES: [facility] Imaging Services [address] [place] [address] SCREEN MAMM (CAD) W/EMETERIO BILAT MR#: [id number] Acct: [id number] Name: CAMMIE BHAT Rep #: [id number] : 1970 F 49 From: Geoff linares MD PCP: NADYA Trinidad Status: [facility] Study: SCREEN MAMM (CAD) W/EMETERIO BILAT Date of Exam: 0 03/20/20 Exam# [id number] Ordering Dr: Shilpa Rosales MAMMOGRAPHY - BILATERAL [...] delay biopsy of a clinically suspicious abnormality. [id number] Electronically Signed: Geoff Andrew, at 13:54 EDT , Service support , CC: NADYA Rosales Chief Juvenile Probation Officer: Signed Shilpa Rosales Work Phone: Start: 04-26-2019 End: 04-26-2019 Emergency Department Summary Comments: See Note; NOTES: [facility] Medical Records Department [address] [facility] [place] [address] Emergency Department Summary 04/26/19 0057 MR#: [id number] Acct: [id number] Name: CAMMIE BHAT Elizabeth Rep #: [id number] : 1970 48 From: Noam Morris MD [...] Allergies Penicillins [PCN] Allergy (Verified 05/14/17 13:00) [facility] Primary Care Physician: Shilpa Rosales NP-C [Primary [...] PRN #25 vial Prescription Printed Referrals: Shilpa Rosales NP-C [Primary Care Provider] - What to do if you have Problems For any increased pain, shortness of breath, bleeding, nausea or vomiting, chest pain, or any unexpected problems, contact your Primary Care Provider. Call [facility] ([phone]) or report to the closest Emergency Room. Call 911 if necessary. 04/26/19 0203 <Electronically signed by Noam Morris MD> Date ___ Noam Morris MD Cosigner Signature (If Indicated): Date ___ CC: NADYA Rosales Start: 04-26-2019 End: 04-26-2019 Chest PA and Lateral Comments: See Note; NOTES: [facility] Imaging Services [address] [place] [address] Chest PA and Lateral MR#: [id number] Acct: [id number] Name: CAMMIE BHAT Rep #: [id number] : 1970 F 48 From: Keshawn Robins MD PCP: NADYA Trinidad Status: REG ER Study: Chest PA and Lateral Date of Exam: 04/26/19 Exam# [id number] Ordering Dr: Noam Morris MD STUDY: X-RAY [...] , CC: NADYA Rosales; Noam Morris MD Chief Juvenile Probation Officer: Signed Shilpa Rosales Start: 04-20-2019 End: 04-25-2019 Cerv Spine 4 or 5 Views Comments: See Note; NOTES: [facility] Imaging Services [address] [place] [address] Cerv Spine 4 or 5 Views MR#: [id number] Acct: [id number] Name: CAMMIE BHAT Rep #: [id number] : 1970 F 48 From: Zak Araiza MD PCP: NADYA Trinidad Status: REG CLI Study: Cerv Spine 4 or 5 Views Date of Exam: 04/20/19 Exam# [id number] Ordering Dr: Marisol Boswell MD STUDY: X-RAY [...] , CC: NADYA Rosales; Marisol Boswell MD Chief Juvenile Probation Officer: Signed Sam Padilla Work Phone: Start: 03-24-2019 End: 03-24-2019 Inital Evaluation (1) - PT Comments: See Note; NOTES: [facility] Physical Therapy [facility] [address] [place] [address]. [address] [place] [address] / REHABILITATION SERVICES INITIAL EVALUATION MR#: [id number] Acct: [id number] Name: CAMMIE BHAT Rep #: [id number] : 1970 48 From: Cynthia Lisa PT, Cert. MDT Referring Dr.: NADYA Perry Status: REG R Insurance: [employer] SELF PAY INSURANCE Patient's Visit Information CAMMIE BHAT is a 48 year old F referred to Physical Therapy by NADYA Wilks with a diagnosis of CERVICAL STENOSIS/YARY UE NUMBNESS AND TINGLING. Date of Evaluation: 03/23/19 Physical Therapist: Cynthia Lisa, PT, Cert MDT - Visit Plan Frequency: [...] - SEVERE NARROWING ON RIGHT SIDE. SEE [facility] EMR FOR COMPLETE REPORT. YARY UE NCT NOVEMBER 2018. PMH/Recent major surgery: *PSORIATIC ARTHRITIS* UNREPAIRED LEFT ROTATOR CUFF - REPAIRED ONCE THEN RE-TORE. RIGHT TORN BICEPT A LONG TIME AGO - UNREPAIRED. - Objective Sitting Posture/Standing Posture: POOR. Active Correction of posture: BETTER. Other Observations: INDEP GAIT AND TRANSFERS. Motor deficit: 5/5 WITH MMT'ING EXCEPT LEFT SHOULDER 4-/5, RIGHT 4/5. LEFT GALLEY HAND 50 LBS AND RIGHT 55 LBS. RIGHT [...] to be FAXED BACK to us at [phone] for Medicare purposes. For Medicare only, by signing this I certify the plan of care. Please let me know if there are questions or concerns regarding this plan of care. Physician Signature: Date: <Electronically signed by Cynthia Lisa PT, Cert. MDT> 03/24/19 1109 CC: EMPLOYEE BENEFITS COORDINATORKaren Rosales; EMPLOYEE BENEFITS COORDINATOR-C Patricia Perry [place] Signed Shilpa Rosales Start: 02-15-2019 End: 02-15-2019 Spine Cervical (Routine) Comments: See Note; NOTES: [facility] Imaging Services [address] [address] Spine Cervical (Routine) MR#: [id number] Acct: [id number] Name: CAMMIE BHAT Rep #: [id number] : 1970 F 48 From: Noam Robles MD PCP: Shilpa Rosales EMPLOYEE BENEFITS COORDINATOR Status: REG CLI Study: Spine Cervical (Routine) Date of Exam: 02/15/19 Exam# [id number] Ordering Dr: Randell Carter MD HISTORY: Right [...] , CC: LOIS Rosales; Randell Carter MD Chief Juvenile Probation Officer: Signed Shilpa Rosales Start: 11-24-2018 End: 11-24-2018 Orthopedic Visit Report Comments: See Note; NOTES: [facility] [address] [place] [address] OFFICE VISIT Date of Service: 11/17/18 MR#: [id number] Acct: [id number] Name: CAMMIE BHAT Rep #: [id number] : 1970 Provider: Tammy Lazo DO Age/Sex: 48/F Location: [facility].SMO Status: Signed Intake Intake Visit Reasons: RIGHT [...] made by me, Tammy Lazo DO 11/17/18 4967. CAMMIE BHAT is a 48 year old [...] min 2 Views Comments: See Note; NOTES: [facility] Imaging Services [address] [place] [address] Shoulder min 2 Views MR#: [id number] Acct: [id number] Name: CAMMIE BHAT Rep #: [id number] : 1970 F 48 From: Conrado Grant MD PCP: Shilpa Rosales, EMPLOYEE BENEFITS COORDINATOR Status: REG CLI Study: Shoulder min 2 Views Date of Exam: 11/17/18 Exam# [id number] Ordering Dr: Tammy Lazo DO STUDY: X-RAY [...] , CC: LOIS Rosales; Tammy Lazo DO Chief Juvenile Probation Officer: Signed Shilpa Handykathiennamdi Start: 09-25-2017 End: 09-25-2017 SCREENING MAMM (CAD), BILAT Comments: See Note; NOTES: [facility] Imaging Services [address] [place] [address] SCREENING MAMM (CAD), BILAT MR#: [id number] Acct: [id number] Name: JOSECAMMIE Elizabeth Rep #: [id number] : 1970 F 46 From: Geoff Andrew MD PCP: Shilpa Rosales NP Status: REG CLI Study: SCREENING MAMM (CAD), BILAT Date of Exam: 09/25/17 Exam# [id number] Ordering Dr: Shilpa Rosales MAMMOGRAPHY - BILATERAL [...] delay biopsy of a clinically suspicious abnormality. [id number] Electronically Signed: Geoff Andrew MD at 13:48 EST Tel [phone], Service support , CC: Shilpa Rosales NP Chief Juvenile Probation Officer: Signed Shilpa Rosales Work Phone: Start: 04-17-2017 End: 04-17-2017 Upper Ext Joint Only(Routine) Comments: See Note; NOTES: [facility] Imaging Services [address] [place] [address] Upper Ext Joint Only(Routine) MR#: [id number] Acct: [id number] Name: CAMMIE BHAT Rep #: [id number] : 1970 F 46 From: Aquiles Craft MD PCP: Shilpa Rosales Status: REG CLI Study: Upper Ext Joint Only(Routine) Date of Exam: 04/17/17 Exam# [id number] Ordering Dr: Tammy Lazo DO STUDY: MRI [...] , CC: Shilpa Rosales; Tammy Lazo DO Chief Juvenile Probation Officer: Signed Shilpa Rosales Start: 01-23-2017 End: 01-23-2017 Discharge Instruction Comments: See Note; NOTES: [facility] Medical Records Department [address] [place] [address] Discharge Instruction 01/23/17 0100 MR#: [id number] Acct: [id number] Name: CAMMIE BHAT Rep #: [id number] : 1970 46 From: Darrell Forte MD [...] problems, contact your Primary Care Provider. Call [facility] ([phone]) or report to the closest Emergency Room. Call 911 if necessary. 01/23/17108 <Electronically signed by Darrell Forte MD> Date ___ Darrell Forte MD Cosigner Signature (If Indicated): Date ___ CC: Shilpa Rosales Start: 01-23-2017 End: 01-23-2017 Emergency Department Summary Comments: See Note; NOTES: [facility] Medical Records Department [address] [place] [address] Emergency Department Summary 01/23/17 010 MR#: [id number] Acct: [id number] Name: CAMMIE BHAT Rep #: [id number] : 1970 46 From: Darrell Forte MD [...] problems, contact your Primary Care Provider. Call [facility] ([phone]) or report to the closest Emergency Room. Call 911 if necessary. 01/23/17 0103 <Electronically signed by Darrell Forte MD> Date ___ Darrell Forte MD Cosigner Signature (If Indicated): Date ___ CC: Shilpa Rosales Start: 06-06-2016 End: 06-06-2016 Shoulder min 2 Views Comments: See Note; NOTES: [facility] Imaging Services [address] [place] [address] Verdana 4d Shoulder min 2 Views MR#: [id number] Acct: [id number] Name: CAMMIE BHAT Rep #: [id number] : 1970 F 45 From: Harshal De Leon MD PCP: Shilpa Rosales Status: REG CLI Study: Shoulder min 2 Views Date of Exam: 06/06/16 Exam# [id number] Ordering Dr: Tammy Lazo DO STUDY: X-RAY [...] MD at 17:57 EST , Service support [phone], CC: Shilpa Rosales; Tammy Lazo DO Chief Juvenile Probation Officer: Signed Shilpa Rosales Start: 04-10-2016 End: 04-10-2016 Bilat Scrn Digital AND CAD Comments: See Note; NOTES: [facility] Imaging Services [address] [place] [address] Verdana 4d Bilat Scrn Digital AND CAD MR#: [id number] Acct: [id number] Name: CAMMIE BHAT Rep #: [id number] : 1970 F 45 From: Geoff Andrew MD PCP: Shilpa Rosales Status: REG CLI Study: Bilat Scrn Digital AND CAD Date of Exam: 04/10/16 Exam# [id number] Ordering Dr: Shilpa Rosales MAMMOGRAPHY - BILATERAL [...] significant change since the prior study. ___ BI/Bilat Scrn Digital AND CAD IMPRESSION: Stable bilateral screening mammogram. Yearly follow-up mammogram recommended. (A) ___ ASSESSMENT CATEGORY: BIRADS Category 1: Negative. A letter regarding these results will be sent to the patient by the facility within 30 days. Approximately 10% of breast cancers are not detected by mammography. A normal mammogram should not delay biopsy of a clinically suspicious abnormality. [id number] Electronically Signed: Geoff Andrew MD at 11:28 EDT Tel [phone], Service support [phone], CC: Shilpa Rosales Chief Juvenile Probation Officer: Signed Shilpa Kate Connie Work Phone: Start: 12-02-2015 End: 12-02-2015 Discharge Instruction Comments: See Note; NOTES: [facility] Medical Records Department [address] [place] [address] Discharge Instruction 11/18/15 0743 MR#: [id number] Acct: [id number] Name: CAMMIE BHAT Rep #: [id number] : 1970 45 From: Darrell Forte MD [...] problems, contact your doctor. Call [facility] ([phone]) or report to the closest Emergency Room. Call 911 if necessary. 12/02/152326 <Electronically signed by Darrell Forte MD> Date ___ Darrell Forte MD Cosigner Signature (If Indicated): Date ___ CC: Libertad Siu Start: 12-02-2015 End: 12-02-2015 Emergency Department Summary Comments: See Note; NOTES: [facility] Medical Records Department [address] [place] [address] Emergency Department Summary MR#: [id number] Acct: [id number] Name: CAMMIE BHAT Rep #: [id number] : 1970 45 From: Darrell Forte MD PCP: Libertad Rivera DO Status: DEP ER DATE OF SERVICE: 11/18/2015 ADDENDUM: The patient [...] Home. Darrell Forte MD T: NTS JOB: [id number] 12/02/15 2327 <Electronically signed by Darrell Forte MD> Date ___ Darrell Forte MD Cosigner Signature (If Indicated): Date ___ CC: Libertad Rivera DO Date Dictated: 11/18/15744 Date Transcribed: 11/18/15744 Chief Juvenile Probation Officer: Signed Shilpa Connie Start: 11-20-2015 End: 11-20-2015 12 lead ECG Comments: See Note; NOTES: [facility] Cardiovascular Services [address] [place] [address] 12 Lead EKG 11/18/15 0110 MR#: [id number] Acct: [id number] Name: CAMMIE BHAT Rep #: [id number] : 1970 45 From: Roger Dietz MD Attending Dr: Status: [facility] ER Ordering Dr: Darrell Forte MD Date: [...] Normal sinus rhythm Normal ECG Confirmed by ROGER DIETZ MD ([id number]), multimedia editor DEISY CARRIZALES ([id number]) on 11/20/2015 11:19:01 AM Referred By: ROSELINE Confirmed By:ROGER DIETZ MD 11/20/15 1119 Date ___ Roger Dietz MD CC: Libertad Rivera DO Date Dictated: 11/18/15109 Date Transcribed: 11/18/15109 Chief Juvenile Probation Officer: Signed Shilpa Connie Start: 04-11-2015 End: 04-12-2015 Ankle min 3 Views Comments: See Note; NOTES: [facility] Imaging Services [address] [place] [address] Radiology Report MR#: [id number] Acct: [id number] Name: JOSECAMMIE Elizabeth Rep #: [id number] : 1970 F 44 From: Harshal De Leon MD PCP: Libertad Rivera DO Status: REG CLI Study: Ankle min 3 Views Date of Exam: 04/11/15 Exam# [id number] Ordering Dr: Tammy Lazo DO STUDY: X-RAY [...] MD at 10:08 EDT , Service support [phone], RAD/Ankle min 3 Views IMPRESSION: OsteoArthritic changes as described. No acute pathology. Electronically Signed: Harshal De Leon MD at 10:08 EDT , Service support [phone], CC: Tammy Lazo DO; Libertad Rivera DO Chief Juvenile Probation Officer: Signed Shilpa Rosales Start: 10-26-2014 End: 10-26-2014 Bilkaci Scrn Digital AND CAD Comments: See Note; NOTES: [facility] Imaging Services [address] [place] [address] Breast Imaging Report MR#: [id number] Acct: [id number] Name: CAMMIE BHAT Rep #: [id number] : 1970 F 44 From: Geoff Andrew MD PCP: Libertad Rivera DO Status: REG CLI Study: Rayshawn Bautista Digital AND CAD Date of Exam: 10/26/14 Exam# [id number] Ordering Dr: Libertad Rivera DO MAMMOGRAPHY - [...] Geoff Andrew MD at 15:02 EDT Tel [phone], Service support [phone], CC: Libertad Rivera DO Chief Juvenile Probation Officer: Signed Libertad Rivera Work Phone: Start: 12-07-2013 End: 12-07-2013 Abdomen/Pelvis WITH Contrast Comments: See Note; NOTES: [facility] Imaging Services [address] [place] [address] CAT Scan Report MR#: [id number] Acct: [id number] Name: JOSECAMMIE Elizabeth Rep #: [id number] : 1970 F 43 From: Zak Araiza MD PCP: Libertad Rivera DO Status: REG CLI Study: Abdomen/Pelvis WITH Contrast Date of Exam: 12/07/13 Exam# [id number] Ordering Dr: Libertad Rivera DO STUDY: CT [...] at 17:39 EDT Tel , Service support [phone], CC: Libertad Rivera DO Chief Juvenile Probation Officer: Signed Libertad Rivera Work Phone: Start: 12-06-2013 End: 12-06-2013 Emergency Department Summary Comments: See Note; NOTES: [facility] Medical Records Department [address] [place] [address] Emergency Department Summary MR#: [id number] Acct: [id number] Name: CAMMIE BHAT Rep #: [id number] : 1970 43 From: Rolly Santiago MD PCP: Libertad Rivera DO Status: [facility] ER DATE OF SERVICE: 12/04/2013 CHIEF COMPLAINT: Headache. HISTORY OF PRESENT ILLNESS: The patient states she has very severe headache started yesterday her usual headache usually left baptism with some nausea without vomiting. States occasionally [...] cephalgia. Rolly Santiago MD T: NTS JOB: [id number] 12/06/13 0725 <Electronically signed by Rolly Santiago MD> Date ___ Rolly Santiago MD CC: Libertad Rivera DO Date Dictated: 12/05/13209 Date Transcribed: 12/05/13209 Chief Juvenile Probation Officer: Meli Padilla Work Phone: Start: 12-04-2013 End: 12-04-2013 Discharge Instruction Comments: See Note; NOTES: [facility] Medical Records Department [address] [place] [address] Discharge Instruction 12/04/132218 MR#: [id number] Acct: [id number] Name: CAMMIE BHAT Rep #: [id number] : 1970 43 From: Rolly Santiago MD [...] Rolly Santiago MD CC: Libertad Rivera DO Sam Padilla Work Phone: Start: 07-02-2013 End: 07-02-2013 Foot min 3 Views Comments: See Note; NOTES: [facility] Imaging Services [address] [facility] [place] [address] Radiology Report MR#: [id number] Acct: [id number] Name: CAMMIE BHAT Rep #: [id number] : 1970 F 42 From: Geoff Andrew MD PCP: Libertad Rivera DO Status: REG CLI Study: Foot min 3 Views Date of Exam: 07/02/13 Exam# [id number] Ordering Dr: Shilpa Rosales STUDY: X-RAY - [...] M.D. at 11:20 EST , Service support [phone], CC: Shilpa Rosales; Libertad Rivera DO Chief Juvenile Probation Officer: Signed Shilpa Rosales Work Phone: Abdominal hysterectomy Hysterectomy; Carey Stewart [employer]OOF PLUMBER Comment on above: Adenomyosis Abdominal hysterectomy Hysterectomy; Carey Alvarenga ROOF PLUMBER Comment on above: Adenomyosis Clostridium difficil e detection EMPLOYEE BENEFITS COORDINATOR-C Shilpa Handymarry EMPLOYEE BENEFITS COORDINATOR Work Phone: Clostridium difficil e detection Dr. Nathan Guzman Work Phone: Enteric Bacteriology EMPLOYEE BENEFITS COORDINATOR-C Kevan latham Connie EMPLOYEE BENEFITS COORDINATOR Work Phone: Lactoferrin measurement EMPLOYEE BENEFITS COORDINATOR-C Shilpa Rosales EMPLOYEE BENEFITS COORDINATOR Work Phone: Nucleic acid assay Dr. Nathan Guzman Work Phone: Ova OR parasites identification EMPLOYEE BENEFITS COORDINATOR-C Shilpa Rozinamarry EMPLOYEE BENEFITS COORDINATOR Work Phone: Urine culture Dr. Nathan Guzman Work Phone: Urine culture Dr. Nathan Guzman Work Phone: Plan of Treatment Date Care Activity Detail Author Start: 05-01-2032 Screening for malignant neoplasm of colon [facility] Start: 04-27-2027 Diabetes Screening Diabetes Screening [facility] Start: 04-18-2027 Diabetes Screening Diabetes Screening [facility] Start: 04-16-2027 Diabetes Screening Diabetes Screening [facility] Start: 04-14-2027 Diabetes Screening Diabetes Screening [facility] Start: 04-12-2027 Diabetes Screening Diabetes Screening [facility] Start: 02-26-2027 Diabetes Screening Diabetes Screening [facility] Start: 08-25-2026 Diabetes Screening Diabetes Screening [facility] Start: 04-27-2025 BP Controlled (<130/80) BP Controlled (<130/80) [facility] Start: 01-02-2025 [facility] Start: 12-13-2024 End: 12-13-2024 Patient encounter procedure 12/13/2024 3:20 PM EDT Office Visit [facility] [address] [place] [phone] Rudy Coker DO [address] [facility] [address] [place] [address] [facility] Start: 07-28-2024 Subsequent hospital visit by physician 07/28/2024 Hospital Encounter [facility] [address] [place] [address] Naomy Thomas MD [address] [place] [id number] Supraventricular tachycardia (HCC) [I47.10] [facility] Comment on above: Supraventricular tachycardia (HCC) [I47. 10] Start: 05-07-2024 Subsequent hospital visit by physician 05/07/2024 Hospital Encounter [facility] [address] [place] [address] Naomy Thomas MD [address] [place] [address] Supraventricular tachycardia (HCC) [I47.10] [facility] Comment on above: Supraventricular tachycardia (HCC) [I47. 10] Start: 04-27-2024 End: 04-27-2024 Follow-up encounter 04/27/2024 2:45 PM EDT Results Only Cardiology [address] [id number] Surgery follow-up Cardiology Comment on above: Surgery follow-up Start: 04-27-2024 End: 04-27-2024 ambulatory 04/27/2024 2:30 PM EDT Results Only [address] [address] [address] [place] [address] CBC CMP [address] [address] [address] Comment on above: CBC CMP Start: 04-27-2024 End: 04-27-2024 Patient encounter procedure Radiology Comment on above: Surgery follow-up Hospital Discharge J 11-25-00 Start: 04-16-2024 End: 07-16-2024 CBC panel - Blood by Automated count COMPLETE BLOOD COUNT Lab Routine Surgery follow-up Expected: 04/16/2024, Expires: 07/16/2024 [facility] Work Phone: Comment on above: Expected: 04/16/2024, Expires: Start: 04-16-2024 End: 07-16-2024 Comprehensive metabolic 2000 panel - Serum or Plasma COMPREHENSIVE METABOLIC PANEL Lab Routine Surgery follow-up Expected: 04/16/2024, Expires: 07/16/2024 [facility] Comment on above: Expected: 04/16/2024, Expires: Start: 04-14-2024 End: 04-14-2024 Admission to same day surgery center 04/14/2024 1:10 PM EDT - 04/14/2024 5:50 PM EDT Surgery Admitting [address] [place] [address] Nnamdi Greenwood MD [address] [place], [place] [id number] MVR (2) Admitting Comment on above: MVR (2) Start: 04-14-2024 Subsequent hospital visit by physician 04/14/2024 1:10 PM EDT Hospital Encounter Admitting [address] [place] [address] [place] [address] [place] [address] 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] Admitting Comment on above: Disorder of artery or arteriole (HCC) [I 77.9] Start: 04-14-2024 End: 04-14-2024 Vlvp mitral valve w/card byp w/prostc ring VALVULOPLASTY MITRAL W/ RING AND BYPASS Disorder of artery or arteriole (HCC) Pre-operative cardiovascular examination Mitral valve disorder 04/14/2024 1:10 PM EDT [facility] & VAS Start: 04-14-2024 End: 04-14-2024 Admission to same day surgery center 04/14/2024 7:35 AM EDT - 04/14/2024 12:15 PM EDT Surgery Admitting [address] [place], [place] [id number] Nnamdi Greenwood MD [address] [id number] ROBOT MVR (2) Admitting Comment on above: ROBOT MVR (2) Start: 04-14-2024 End: 04-14-2024 Anesthesia consultation 04/14/2024 7:35 AM EDT Anesthesia Event Admitting [address] [id number] Balaji Uribe MD [address] [id number] Admitting Start: 04-14-2024 Subsequent hospital visit by physician 04/14/2024 7:35 AM EDT Hospital Encounter Admitting [address] [id number] Nnamdi Greenwood MD [address] [phone] 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 LYONS Start: 03-28-2024 Covid-19 Vaccine ( season) Covid-19 Vaccine ( season) [facility] Start: 03-28-2024 Covid-19 Vaccine () Covid-19 Vaccine ( season) [facility] Start: 03-28-2024 Influenza vaccination [facility] Start: 03-10-2024 End: 06-09-2024 aPTT in Platelet poor plasma by Coagulation assay ACTIVATED PARTIAL THROMBOPLASTIN TIME Lab Routine Disorder of artery or arteriole (HCC) Pre-operative cardiovascular examination Mitral valve disorder Expected: 03/10/2024 (Approximate), Expires: 06/09/2024 [facility] Comment on above: Expected: 03/10/2024 (Approximate), Expi res: 06/09/2024 Start: 03-10-2024 End: 06-09-2024 CBC W Auto Differential panel - Blood COMPLETE BLOOD COUNT AND DIFFERENTIAL Lab Routine Disorder of artery or arteriole (HCC) Pre-operative cardiovascular examination Mitral valve disorder Expected: 03/10/2024, Expires: 06/09/2024 [facility] Comment on above: Expected: 03/10/2024, Expires: Start: 03-10-2024 End: 06-09-2024 Comprehensive metabolic 2000 panel - Serum or Plasma COMPREHENSIVE METABOLIC PANEL Lab Routine Disorder of artery or arteriole (HCC) Pre-operative cardiovascular examination Mitral valve disorder Expected: 03/10/2024, Expires: 06/09/2024 [facility] Work Phone: Comment on above: Expected: 03/10/2024, Expires: 4 Start: 03-10-2024 End: 06-09-2024 CONFIRM BLOOD TYPE CONFIRM BLOOD TYPE Blood Bank Routine Disorder of artery or arteriole (HCC) Pre-operative cardiovascular examination Mitral valve disorder Expected: 03/10/2024, Expires: 06/09/2024 [facility] Comment on above: Expected: 03/10/2024, Expires: Start: 03-10-2024 End: 06-09-2024 Lactate dehydrogenase [Enzymatic activity/volume] in Serum or Plasma LACTATE DEHYDROGENASE Lab Routine Disorder of artery or arteriole (HCC) Pre-operative cardiovascular examination Mitral valve disorder Expected: 03/10/2024, Expires: 06/09/2024 [facility] Comment on above: Expected: 03/10/2024, Expires: 4 Start: 03-10-2024 End: 06-09-2024 PT panel - Platelet poor plasma by Coagulation assay PROTHROMBIN TIME Lab Routine Disorder of artery or arteriole (HCC) Pre-operative cardiovascular examination Mitral valve disorder Expected: 03/10/2024 (Approximate), Expires: 06/09/2024 [facility] Comment on above: Expected: 03/10/2024 (Approximate), Expi res: 06/09/2024 Start: 03-10-2024 End: 06-09-2024 TYPE AND SCREEN,30 DAY TYPE AND SCREEN,30 DAY Blood Bank Routine Disorder of artery or arteriole (HCC) Pre-operative cardiovascular examination Mitral valve disorder Expected: 03/10/2024, Expires: 06/09/2024 [facility] Comment on above: Expected: 03/10/2024, Expires: Start: 03-10-2024 End: 06-09-2024 URINALYSIS, DIPSTICK ONLY URINALYSIS, DIPSTICK ONLY Lab Routine Disorder of artery or arteriole (HCC) Pre-operative cardiovascular examination Mitral valve disorder Expected: 03/10/2024, Expires: 06/09/2024 [facility] Comment on above: Expected: 03/10/2024, Expires: Start: 03-10-2024 End: 03-10-2024 Patient encounter procedure 03/10/2024 11:00 AM EDT Appointment Cat Scan [address] [place] [address] Nonrheumatic mitral valve regurgitation [I34.0] Cat Scan Comment on above: Nonrheumatic mitral valve regurgitation [I34.0] Start: 03-10-2024 End: 03-10-2024 ambulatory [facility] Comment on above: Nonrheumatic mitral valve regurgitation [I34.0] Start: 03-08-2024 End: 03-08-2024 Admission to same day surgery center 03/08/2024 8:30 AM EDT - 03/08/2024 10:00 AM EDT Surgery [facility] [address] [place] [address] Darien Chandler MD [address] [facility], [address] [place] [address] LEFT HEART CATH INTRAPROCEDURAL INJECT W/ LEFT VENTRICULOGRAPHY IMAGE SUPERVISION/INTERPRETATI ON [facility] Comment on above: LEFT HEART CATH INTRAPROCEDURAL INJECT W / LEFT VENTRICULOGRAPHY IMAGE SUPERVISION/INTERPRETATION Start: 03-08-2024 End: 03-08-2024 L hrt cath w/njx l ventriculography img s&i LEFT HEART CATH INTRAPROCEDURAL INJECT W/ LEFT VENTRICULOGRAPHY IMAGE SUPERVISION/INTERPRETATI ON Valvular heart disease 03/08/2024 8:30 AM EDT [facility] Start: 03-08-2024 Subsequent hospital visit by physician 03/08/2024 8:30 AM EDT Hospital Encounter [facility] [address] [place] [address] Darien Chandler MD [address] [place] [address] Valvular heart disease [I38] [facility] Comment on above: Valvular heart disease [I38] Start: 02-27-2024 End: 02-27-2024 ambulatory 02/27/2024 1:00 PM EDT Results Only [facility] [address] [place] [address] [facility] Start: 02-25-2024 End: 05-26-2024 Basic metabolic 2000 panel - Serum or Plasma BASIC METABOLIC PANEL Lab Routine Nonrheumatic mitral (valve) insufficiency Expected: 02/25/2024, Expires: 05/26/2024 [facility] Work Phone: Comment on above: Expected: 02/25/2024, Expires: Start: 02-25-2024 End: 05-26-2024 CBC panel - Blood by Automated count COMPLETE BLOOD COUNT Lab Routine Nonrheumatic mitral (valve) insufficiency Expected: 02/25/2024, Expires: 05/26/2024 [facility] Comment on above: Expected: 02/25/2024, Expires: Start: 02-24-2024 End: 02-24-2024 Patient encounter procedure 02/24/2024 2:00 PM EDT Office Visit [facility] [address] [place], [place] [phone] Maulik Mitchell MD [address] [facility] [address] [place], [place] [phone] New Patient Referral from Jeyson Galvan EMPLOYEE BENEFITS COORDINATOR, EMPLOYEE BENEFITS COORDINATOR-C [phone] for Nonrheumatic Mitral Valve Insufficiency, Nonrheumatic Mitral Valve Prolapse with EXTERNAL [facility] ECHO 01/12/2024 [facility] Comment on above: New Patient Referral from Jeyson Galvan EMPLOYEE BENEFITS COORDINATOR , EMPLOYEE BENEFITS COORDINATOR-C [phone] for Nonrheumatic Mitral Valve Insufficiency, Nonrheumatic Mitral Valve Prolapse with EXTERNAL [facility] ECHO 01/12/2024 Start: 02-19-2024 End: 02-19-2024 Admission to same day surgery center 02/19/2024 11:55 AM EDT - 02/19/2024 4:10 PM EDT Surgery [facility] [address] [place] [address] Naomy Thomas MD [address] [place] [address] (Fax) COMPLETE EPS W/SVT ABL W/WO 3D MAP [...] EDT Hospital Encounter [facility] [place] [address] Naomy Thomas MD [address] [place] [address] Supraventricular tachycardia (HCC) [I47.10] [facility] Comment on above: Supraventricular tachycardia (HCC) [I47. 10] Start: 01-28-2024 End: 01-28-2024 Admission to same day surgery center 01/28/2024 8:30 AM EDT - 01/28/2024 12:40 PM EDT Surgery [facility] [place] [address] Naomy Thomas MD [address] [place] [phone] (Fax) COMPLETE EPS W/SVT ABL W/WO 3D MAP [...] EDT Hospital Encounter [facility] [place] [address] Naomy Thomas MD [address] [place] [address] [place] [phone] (Fax) Supraventricular tachycardia (HCC) [I47.10] [place] [facility] Comment on above: Supraventricular tachycardia (HCC) [I47. 10] Start: 01-16-2024 Subsequent hospital visit by physician 01/16/2024 Hospital Encounter [facility] [place] [address] Naomy Thomas MD [address] [place] [phone] (Fax) Supraventricular tachycardia (HCC) [I47.10] [place] [facility] Comment on above: Supraventricular tachycardia (HCC) [I47. 10] Start: 01-09-2024 End: 01-09-2024 Patient encounter procedure 01/09/2024 3:00 PM EDT Office Visit [facility] [address] [place], [place] [id number] Troy Byrd, WEBLOGIC DEVELOPER.AIRCRAFT MAINTENANCE ENGINEER [address] [place], [place] [id number] H&P for SVT Ablation on 01/15 with JON EKG/eo [facility] Comment on above: H&P for SVT Ablation on 01/15 with JON *EKG/eo Start: 11-20-2023 [facility] Start: 11-20-2023 Enteric precautions [facility] Start: 07-28-2023 Behavioral Health Screening Behavioral Health Screening [facility] Start: 06-02-2023 FUV, Provider: Rudy Coker, Status: Pen, Time: 11:00 AM FUV, Provider: Rudy Coker, Status: Pen, Time: 11:00 AM [facility] Work Phone: Start: 03-28-2023 Covid-19 Vaccine ( season) Covid-19 Vaccine () [facility] Start: 03-28-2023 Influenza vaccination [facility] Start: 02-03-2023 FUV, Provider: Rudy Coker, Status: Pen, Time: 3:20 PM FUV, Provider: Rudy Coker, Status: Pen, Time: 3:20 PM [facility] [address] DO Work Phone: Start: 01-02-2023 Patient referral [facility] Work Phone: Start: 12-18-2022 Enteric precautions [facility] Start: 07-28-2022 DEPRESSION ASSESSMENT DEPRESSION ASSESSMENT [facility] Start: 05-01-2022 Colonoscopy w/biopsy single/multiple COLONOSCOPY AND BIOPSY [facility] Work Phone: Start: 05-01-2022 Colsc flx w/rmvl of tumor polyp lesion snare tq COLONOSCOPY W/LESION REMOVAL [facility] Work Phone: Start: 05-01-2022 Egd transoral biopsy single/multiple EGD BIOPSY SINGLE/MULTIPLE [facility] Work Phone: Start: 05-01-2022 Patient discharge [facility] Work Phone: Start: 04-26-2022 Patient referral [facility] Work Phone: Start: 01-16-2022 Elastase, pancreatic (el-1), fecal; quantitative [facility] Work Phone: Start: 01-16-2022 Giardia lamblia Ag [Presence] in Stool by Immunoassay [facility] Work Phone: Start: 01-16-2022 Ova and parasites identified in Unspecified specimen by Light microscopy [facility] Work Phone: Start: 01-16-2022 Protein measurement [facility] Work Phone: Start: 01-16-2022 Gastrin [Mass/volume] in Serum or Plasma [facility] Work Phone: Start: 01-14-2022 IgE [Units/volume] in Serum or Plasma [facility] Work Phone: Start: 01-14-2022 Serum immunofixation [facility] Work Phone: Start: 01-14-2022 [facility] Work Phone: Start: 03-26-2021 Comprehensive metabolic panel Metabolic Panel, Comprehensive (46594) [facility] Work [...] 25 hydroxy includes fractions if performed CALCIFEDIOL (58845) [facility] Work Phone: Start: 03-24-2020 Lipid panel LIPID PANEL (77479) [facility] Work Phone: Comment on above: May 02 2020 Start: 03-24-2020 Comprehensive metabolic panel Metabolic Panel, Comprehensive (37949) [facility] Work Phone: Start: 03-24-2020 Procedure Education Eprescribed prescriptions (G8553) [facility] Work Phone: Start: 03-24-2020 Provider Instructions for Treatment Follow up in 3 months [facility] Work Phone: Start: 02-28-2020 Blood count complete automated CBC & PLATELETS (AUTO) (93705) [facility] Work Phone: Comment on above: Mar 01 2020 Start: 02-28-2020 TSH Qn TSH (THYROID STIMULATING HORMONE) (62070) [facility] Work Phone: Comment on above: Mar 01 2020 Start: 02-28-2020 Lipid panel LIPID PANEL (61243) [facility] Work Phone: Comment on above: Mar 01 2020 Start: 02-28-2020 Comprehensive metabolic panel Metabolic Panel, Comprehensive (74980) [facility] Work Phone: Comment on above: Mar 01 2020 Start: 02-28-2020 Blood occult fecal hgb deter ia qual feces 1-3 FECAL OCCULT- Tubes sent home (01222) [facility] Work Phone: Start: 02-28-2020 Procedure Education Eprescribed prescriptions (G8553) [facility] Work Phone: Start: 02-28-2020 Provider Instructions for Treatment [facility] Work Phone: Start: 10-17-2019 Pneumococcal Vaccine: 50+ (2 of 2 - PCV) Pneumococcal Vaccine: 50+ (2 of 2 - PCV) [facility] Start: 10-17-2019 SHINGRIX VACCINE (1 of 2) SHINGRIX VACCINE (1 of 2) [facility] Start: 10-17-2019 Zoster Vaccines (1 of 2) Zoster Vaccines (1 of 2) [facility] Start: 06-28-2019 Patient Education Yeast Infection (Candidiasis) [...] 06-16-2018 Hpv, dna, amp probe HPV, Reflex (17714) [facility] Work Phone: Start: 04-13-2018 Lipid panel LIPID PANEL (10099) [facility] Work Phone: Start: 04-13-2018 Procedure Education Eprescribed prescriptions (G8553) [facility] Work Phone: Start: 04-13-2018 Provider Instructions for Treatment Follow up as needed [facility] Work Phone: Start: 05-05-2017 Procedure Education Eprescribed prescriptions (G8553) [facility] Work Phone: Start: 03-07-2017 Patient Education Allergies: rash [facility] Work Phone: Start: 03-07-2017 Procedure Education Eprescribed prescriptions (G8553) [facility] Work Phone: Start: 04-12-2016 Lipid panel LIPID PANEL (16889) [facility] Work Phone: Start: 04-05-2016 Provider Instructions for Treatment Follow up in 6 months [facility] Work Phone: Start: 05-15-2015 CBC, PLATELETS & MANUAL DIFF (86282) CBC, PLATELETS & MANUAL DIFF (07764) [facility] Work Phone: Start: 05-15-2015 Comprehensive metabolic panel METABOLIC PANEL, COMPREHENSIVE (09259) [facility] Work Phone: Start: 05-15-2015 Procedure Education Eprescribed prescriptions (G8553) [facility] Work Phone: Start: 02-10-2015 Patient Education Migraine Headache: Brief Version *: head [facility] Work Phone: Start: 02-10-2015 Procedure Education Eprescribed prescriptions (G8553) [facility] Work Phone: Start: 2014 COLOGUARD (FIT-DNA) COLOGUARD (FIT-DNA) [facility] Start: 2014 Colonoscopy COLONOSCOPY [facility] Start: 2014 COLORECTAL CANCER SCREENING COLORECTAL CANCER SCREENING [facility] Start: [address] COLONOGRAPHY [facility] Start: 2014 DIABETES SCREEN DIABETES SCREEN [facility] Start: 2014 Diabetes Screening Diabetes Screening [facility] Start: 2014 FECAL OCCULT BLOOD FECAL OCCULT BLOOD [facility] Start: 2014 Lipid 1996 panel - Serum or Plasma Lipid Screening [facility] Start: 2014 Lipid panel Lipid Screening [facility] Start: 2014 LIPID SCREEN LIPID SCREEN [facility] Start: 2014 Screening for malignant neoplasm of colon [facility] Start: 2014 SIGMOIDOSCOPY SIGMOIDOSCOPY [facility] Start: 10-03-2014 Provider Instructions for Treatment Follow up if no improvement or if symptoms worsen [facility] Work Phone: Start: 05-16-2014 Provider Instructions for Treatment Follow up if no improvement or if symptoms worsen [facility] Work Phone: Start: 05-11-2014 Procedure Education Eprescribed prescriptions (G8553) [facility] Work Phone: Start: 12-07-2013 Assay of lipase Lipase (98533) [facility] Work Phone: Comment on above: stat Start: 12-07-2013 Comprehensive metabolic panel METABOLIC PANEL, COMPREHENSIVE (75483) [facility] Work Phone: Comment on above: stat Start: 12-07-2013 Blood count manual cell count each CBC WITH MANUAL DIFF (79144) [facility] Work Phone: Comment on above: stat Start: 12-07-2013 Sedimentation rate rbc non-automated SED RATE ERYTHROCYTE (37336) [facility] Work Phone: Start: 12-07-2013 C-reactive protein C-REACTIVE PROTEIN (71645) [facility] Work Phone: Start: 12-07-2013 CRP mass conc C-REACTIVE PROTEIN (44647) [facility] Work Phone: Start: 12-07-2013 Ova&parasites direct smears concentration & id OVA & PARASITE DIR SMEAR (53872) [facility] Work Phone: Start: 12-07-2013 Leukocyte assmt fecal qual/semiquantitative LEUKOCYTE COUNT, FECAL (67556) [facility] Work Phone: Start: 12-07-2013 Culture bacterial any source anaerobic iso&id C-DIFFICILE, STOOL (04670) [facility] Work Phone: Start: 12-07-2013 Cul bact stool aerobic isol salmonella&shigell LANDRY CULTURE-STOOL (78818) [facility] Work Phone: Start: 12-07-2013 Provider Instructions for Treatment [facility] Work Phone: Start: 07-09-2013 Provider Instructions for Treatment Follow up - Make appt after diagnostic tests [facility] Work Phone: Start: 07-02-2013 Provider Instructions for Treatment Follow up in 1 week [facility] Work Phone: Start: 06-11-2013 Patient Education [facility] Work Phone: Start: 10-08-2012 Patient Education Urinary Tract Infection in Women *: gynecological health [facility] Work Phone: Start: 10-08-2012 Provider Instructions for Treatment *Abd Pain Red Flags [facility] Work Phone: Start: 10-08-2012 Comprehensive metabolic panel Metabolic Panel, Comprehensive (52408) [facility] Work Phone: Start: 10-08-2012 Blood count complete automated CBC (Auto) (49931) [facility] Work Phone: Start: 09-22-2012 Patient Education Migraine Headache: Brief Version *: head [facility] Work Phone: Start: 04-15-2012 Patient Education Depression: Brief Version *: depression [facility] Work Phone: Start: 03-16-2012 Patient Education Chest Pain, Noncardiac: pain [facility] Work Phone: Start: 11-27-2011 Assay of thyroid stimulating hormone tsh TSH (40556) [facility] Work Phone: Start: 11-27-2011 Thyrotropin Qn TSH (02142) [facility] Work Phone: Start: 11-27-2011 Blood count manual cell count each CBC WITH MANUAL DIFF (47389) [facility] Work Phone: Start: 11-27-2011 Comprehensive metabolic panel METABOLIC PANEL, COMPREHENSIVE (16922) [facility] Work Phone: Start: 06-25-2010 Provider Instructions for Treatment *Antibiotic Usage Education - Female [facility] Work Phone: Start: 04-12-2010 Provider Instructions for Treatment [facility] Work Phone: Start: 02-26-2010 Provider Instructions for Treatment [facility] Work Phone: Start: 02-26-2010 Cytp cerv/vag auto thin layer prep mnl screen Thin prep Pap (27684) [facility] Work Phone: Start: 2009 Mammography [facility] Start: 2009 Screening for malignant neoplasm of breast [facility] Start: 10-07-2008 Cul prsmptv pthgnc organism scrn w/colony estimj CULTURE, GONOCOCCUS (15748) [facility] Work Phone: Start: 10-07-2008 Culture chlamydia any source CULTURE CHLAMYDIA (57996) [facility] Work Phone: Start: 10-07-2008 Smr prim src wet mount nfct agt WET MOUNT (73724) [facility] Work Phone: Comment on above: with malou Start: 10-07-2008 Culture bacterial quanttative colony count urine URINE LANDRY CULTURE (LUZMA COL COUNT) (60885) [facility] Work Phone: Start: 08-22-2008 Gonadotropin luteinizing hormone GONADOTROPIN-LH (03486) [facility] Work Phone: Start: 08-22-2008 Gonadotropin follicle stimulating hormone GONADOTROPIN-FSH (49943) [facility] Work Phone: Start: 08-22-2008 Assay of thyroid stimulating hormone tsh TSH (39357) [facility]; [facility] Work Phone: Start: 08-22-2008 Thyrotropin Qn TSH (64373) [facility] Work Phone: Start: 08-22-2008 Creatine kinase isoenzymes CPK TOTAL & ISOENZYMES (76598) [facility] Work Phone: Start: 05-27-2008 Pneumococcal vaccination Pneumococcal Vaccine (2 of 2 - PCV) [facility] Start: 10-12-2007 Provider Instructions for Treatment [facility] Work Phone: Start: 05-27-2007 Urnls dip stick/tablet rgnt auto w/o microscopy URINALYSIS W/O MICRO (07482) [facility] Work Phone: Start: 05-27-2007 Assay of thyroid stimulating hormone tsh TSH (37527) [facility]; [facility] Work Phone: Start: 05-27-2007 Thyrotropin Qn TSH (71661) [facility] Work Phone: Start: 05-27-2007 Comprehensive metabolic panel METABOLIC PANEL, COMPREHENSIVE (40400) [facility] Work Phone: Start: 05-27-2007 Blood count manual cell count each CBC WITH MANUAL DIFF (89308) [facility] Work Phone: Start: 11-19-2006 Sedimentation rate rbc non-automated SED RATE ERYTHROCYTE (26210) [facility] Work Phone: Start: 11-19-2006 C-reactive protein C-REACTIVE PROTEIN (99965) [facility]; [facility] Work Phone: Start: 11-19-2006 CRP mass conc C-REACTIVE PROTEIN (55081) [facility] Work Phone: Start: 11-19-2006 Rheumatoid factor quantitative RHEUMATOID FACTOR-QUANT (95327) [facility] Work Phone: Start: 11-19-2006 Antinuclear antibodies ramirez RAMIREZ (ANTINUCLEAR ANTIBODY) (18176) [facility]; [facility] Work Phone: Start: 11-19-2006 Nuclear Ab IF titer (S) RAMIREZ (ANTINUCLEAR ANTIBODY) (47708) [facility] Work Phone: Start: 11-19-2006 Urnls dip stick/tablet rgnt auto w/o microscopy URINALYSIS W/O MICRO (66554) [facility] Work Phone: Start: 11-19-2006 Blood count manual cell count each CBC WITH MANUAL DIFF (41745) [facility] Work Phone: Start: 11-19-2006 Comprehensive metabolic panel METABOLIC PANEL, COMPREHENSIVE (69225) [facility] Work Phone: Start: 10-17-1999 HPV TESTING HPV TESTING [facility] Start: 10-17-1999 Screening for malignant neoplasm of cervix HPV Testing [facility] Start: 10-17-1991 DTaP/Tdap/Td Vaccines (1 - Tdap) DTaP/Tdap/Td Vaccines (1 - Tdap) [facility] Start: 1990 PAP TESTING PAP TESTING [facility] Start: 1990 Screening for malignant neoplasm of cervix [facility] Start: 1988 Hepatitis A Vaccines (1 of 2 - Risk 2-dose series) Hepatitis A Vaccines (1 of 2 - Risk 2-dose series) [facility] Start: 1988 Hepatitis B Vaccine (1 of 3 - 19+ 3-dose series) Hepatitis B Vaccine (1 of 3 - 19+ 3-dose series) [facility] Start: 1988 Hepatitis B Vaccines (1 of 3 - 19+ 3-dose series) Hepatitis B Vaccines (1 of 3 - 19+ 3-dose series) [facility] Start: 1988 Urine microalbumin profile [facility] Start: 10-17-1987 ANNUAL PCP TEAM CHRONIC DISEASE VISIT ANNUAL PCP TEAM CHRONIC DISEASE VISIT [facility] Start: 10-17-1987 Anxiety Screening Anxiety Screening [facility] Start: 10-17-1987 BP CONTROLLED (<130/80) BP CONTROLLED (<130/80) [facility] Start: 10-17-1987 Depression Screening Depression Screening [facility] Start: 10-17-1987 Diabetes mellitus screening Diabetes Screening [facility] Start: 10-17-1987 HEPATITIS C SCREENING HEPATITIS C SCREENING [facility] Start: 10-17-1987 Hepatitis C screening Hepatitis C Screening [facility] Start: 10-17-1987 HIV SCREENING HIV SCREENING [facility] Start: 10-17-1987 HIV screening HIV Screening [facility] Start: 1970 MMR Vaccines (1 of 1 - Standard series) MMR Vaccines (1 of 1 - Standard series) [facility] Start: 04-18-1970 COVID-19 VACCINE (#1) COVID-19 VACCINE (#1) [facility] Start: 1969 HEPATITIS B (1 of 3 - 3-dose series) HEPATITIS B (1 of 3 - 3-dose series) [facility] Start: 1969 Hepatitis B Vaccine (1 of 3 - 3-dose series) Hepatitis B Vaccine (1 of 3 - 3-dose series) [facility] Start: 1969 HIV screening HIV Screening [facility] Start: 1969 Lipid panel Lipid Panel [facility] Start: 1969 Screening for malignant neoplasm of colon [facility] Start: 1969 Yearly Adult Physical Yearly Adult Physical [facility] Alanine aminotransfe rase [Enzymatic activity/volume] in Serum or Plasma [facility] Albumin [Mass/volume ] in Serum or Plasma [facility] Albumin [Moles/volum e] in Serum or Plasma [facility] Work Phone: Albumin/Globulin ratio [facility] Work Phone: Alkaline phosphatase [Enzymatic activity/volume] in Serum or Plasma [facility] Bilirubin, total measurement [facility] Bilirubin.direct [Mass/volume] in Serum or Plasma [facility] Blood chemistry [facility] Cholesterol [Mass/volume] in Serum or Plasma [facility] Cholesterol in HDL [Mass/volume] in Serum or Plasma [facility] Clostridioides diffi cile DNA [Presence] in Unspecified specimen by BAM with probe detection [facility] CT Abdomen and Pelvi s W contrast IV [facility] Work Phone: End: 03-25-2025 CT Chest WO contrast CT CHEST WO IVCON Radiology Routine Nonrheumatic mitral valve regurgitation 1 Occurrences starting 02/24/2024 until 03/25/2025 [facility] Comment on above: 1 Occurrences starting 02/24/2024 until 03/25/2025 End: 04-09-2025 CTA Chest vessels and Abdominal vessels and Pelvis vessels W contrast IV CTA CHEST/ABD/PEL (GATED) W IVCON Radiology Routine Disorder of artery or arteriole (HCC) Pre-operative cardiovascular examination Mitral valve disorder 1 Occurrences starting 03/10/2024 until 04/09/2025 [facility] Comment on above: 1 Occurrences starting 03/10/2024 until 04/09/2025 End: 03-10-2025 ECG COMPLETE ECG COMPLETE ECG Routine Disorder of artery or arteriole (HCC) Pre-operative cardiovascular examination Mitral valve disorder 1 Occurrences starting 03/10/2024 until 03/10/2025 [facility] Comment on above: 1 Occurrences starting 03/10/2024 until 03/10/2025 End: 04-16-2025 ECG COMPLETE ECG COMPLETE ECG Routine Surgery follow-up 1 Occurrences starting 04/16/2024 until 04/16/2025 [facility] Comment on above: 1 Occurrences starting 04/16/2024 until 04/16/2025 End: 03-10-2025 Echocardiography ECHO Cardiology Routine Disorder of artery or arteriole (HCC) Pre-operative cardiovascular examination Mitral valve disorder 1 Occurrences starting 03/10/2024 until 03/10/2025 [facility] Comment on above: 1 Occurrences starting 03/10/2024 until 03/10/2025 Electrophoresis: [id number] [facility] Work Phone: Electrophoresis: deanna ma globulin [facility] Work Phone: Gastrin [Mass/volume ] in Serum or Plasma [facility] Work Phone: Gastrointestinal pathogens panel - Stool by BAM with probe detection [facility] Giardia lamblia Ag [Presence] in Stool by Immunoassay [facility] Work Phone: Giardia lamblia Ag [Presence] in Stool by Immunoassay [facility] Globulin measurement [facility] Work Phone: IgA [Mass/volume] in Serum or Plasma [facility] Work Phone: IgE [Units/volume] i n Serum or Plasma [facility] Work Phone: IgG [Mass/volume] in Serum or Plasma [facility] Work Phone: IgM [Mass/volume] in Serum or Plasma [facility] Work Phone: INTERACTIVE HEART SURGERY PROGRAM INTERACTIVE HEART SURGERY PROGRAM Procedures Routine Disorder of artery or arteriole (HCC) Pre-operative cardiovascular examination Mitral valve disorder Ordered: 03/10/2024 [facility] Comment on above: Ordered: 03/10/2024 Low density lipoprot ein cholesterol measurement [facility] End: 03-25-2025 LUNG DIFFUSION CAPACITY (DLCO) LUNG DIFFUSION CAPACITY (DLCO) PFT Routine Nonrheumatic mitral valve regurgitation 1 Occurrences starting 02/24/2024 until 03/25/2025 [facility] Comment on above: 1 Occurrences starting 02/24/2024 until 03/25/2025 End: 03-25-2025 LUNG VOLUMES LUNG VOLUMES PFT Routine Nonrheumatic mitral valve regurgitation 1 Occurrences starting 02/24/2024 until 03/25/2025 [facility] Comment on above: 1 Occurrences starting 02/24/2024 until 03/25/2025 MR Lower Extremity Joint [facility] Work Phone: Neutrophil cytoplasm ic Ab.classic [Units/volume] in Serum [facility] Work Phone: Ova and parasites identified in Unspecified specimen by Light microscopy [facility] Work Phone: P-ANCA measurement [facility] Work Phone: Patient Education [facility] Work Phone: Patient referral [facility] Work Phone: Percutaneous transluminal ablation of atrioventricular node COMPLETE EPS W/SVT ABL W/WO 3D MAP LA PACE REC Supraventricular tachycardia (HCC) [facility] Procedure [facility] Work Phone: Protein electrophore sis panel - Serum or Plasma [facility] Work Phone: Radionuclide gastric emptying study [facility] Work Phone: Serum protein electrophoresis [facility] Work Phone: End: 03-25-2025 SPIROMETRY BASELINE ONLY SPIROMETRY BASELINE ONLY PFT Routine Nonrheumatic mitral valve regurgitation 1 Occurrences starting 02/24/2024 until 03/25/2025 [facility] Work Phone: Comment on above: 1 Occurrences starting 02/24/2024 until 03/25/2025 Total cholesterol:HD L ratio measurement [facility] Total protein measurement [facility] Triglycerides measurement [facility] VLDL cholesterol measurement [facility] End: 04-09-2025 XR Chest PA and Lateral XR CHEST 2V FRONTAL/LAT Radiology Routine Disorder of artery or arteriole (HCC) Pre-operative cardiovascular examination Mitral valve disorder 1 Occurrences starting 03/10/2024 until 04/09/2025 [facility] Comment on above: 1 Occurrences starting 03/10/2024 until 04/09/2025 End: 05-16-2025 XR Chest PA and Lateral XR CHEST 2V FRONTAL/LAT Radiology Routine Surgery follow-up 1 Occurrences starting 04/16/2024 until 05/16/2025 [facility] Comment on above: 1 Occurrences starting 04/16/2024 until 05/16/2025 End: 05-27-2025 XR Chest PA and Lateral XR CHEST 2V FRONTAL/LAT Radiology Routine Pleural effusion 1 Occurrences starting 04/27/2024 until 05/27/2025 [facility] Work Phone: Comment on above: 1 Occurrences [...] Phone: [place] [facility] [place] [facility] Immunizations Immunization Date Immunization Notes Care Provider Elmer appiah 04-21-2014 influenza, seasonal, injectable, preservative free Nathan Guzman Work Phone: [facility] Work Phone: 04-21-2014 influenza virus vaccine, unspecified formulation Naomy Thomas MD Work Phone: [facility] 05-27-2007 pneumococcal polysaccharide vaccine, 23 valent Shilpa Rosales [facility] Work Phone: Comment on above: given 0.5cc im in ri ght deltoid lot#[id number] exp. Payers Date Payer Category Payer Self-pay [id number] 2024 Self-pay [id number] 2021 Managed Care (Private) [employer] [id number] 2018 Private Health Insurance [employer] E [id number] 2018 Unknown 2003 Unknown [id number] 1969 Unknown [id number] 2.16840.1.638525.3.579. 2.627 1969 Unknown [id number] 2.840.1.546138.3.579. 2.356 1969 Unknown [id number] .840.1.680197.3.579. 2.356 1969 Unknown [id number] 2.16840.1.529197.3.579. 2.1245 1969 Unknown [id number] 2.840.1.957162.3.579. 2.1244 1969 Unknown [id number] 2.16840.1.156771.3.579. 2.1244 Unknown . [id number] Unknown [id number] 2.16840.1.140627.3.579. 2.462 Unknown [id number] 2.16840.1.329604.3.579. 2.462 Unknown [id number] 2.16840.1.517825.3.579. 2.462 Unknown [id number] 2.16840.1.001357.3.579. 2.462 Unknown [id number] 2.16840.1.973282.3.579. 2.462 Unknown [id number] 2.16.840.1.691278.3.579. 2.462 Unknown [id number] 2.16.840.1.577471.3.579. 2.462 Unknown [id number] 2.16.840.1.669561.3.579. 2.462 Unknown [id number] 2.16.840.1.042380.3.579. 2.462 Unknown [id number] 2.16.840.1.617994.3.579. 2.462 Unknown [id number] 2.16.840.1.177629.3.579. 2.462 Unknown [id number] 2.16.840.1.771197.3.579. 2.462 Unknown [id number] 2.16.840.1.557970.3.579. 2.462 Unknown [id number] 2.16.840.1.962051.3.579. 2.462 Unknown [id number] 2.16.840.1.681101.3.579. 2.462 Unknown [id number] 2.16.840.1.654556.3.579. 2.462 Unknown [id number] 2.16.840.1.145304.3.579. 2.462 Unknown [id number] 2.16.840.1.530203.3.579. 2.462 Unknown [id number] 2.16.840.1.591517.3.579. 2.462 Unknown [id number] 2.16.840.1.558296.3.579. 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 [facility] Work Phone: Comment on above: 5/2/12 Tobacco use: Tobacco use: [facility]; [facility] Work Phone: Comment on above: 11/27/11 Start: 01-14-2022 End: 11-20-2023 Tobacco smoking status NEIS Unknown if ever smoked [facility] Start: 09-18-2014 None [facility] Start: 09-18-2014 Spouse/ Signif icant Other [facility] Start: 09-18-2014 Non-smoker [facility] Start: 1970 Sex Assigned At Female W [facility] Start: 04-21-2019 End: 01-02-2025 Tobacco smoking status NHIS Ex-smoker [facility] Start: 10-03-1990 End: 10-04-1995 History of tobacco use Current smoker [facility] Start: 10-03-1990 End: 10-04-1995 History of tobacco use Cigarette Smoker [facility] Start: 04-21-2019 End: 04-12-2024 Tobacco use and exposure Smokeless tobacco non-user [facility] Start: 01-15-2023 End: 04-27-2024 Alcohol intake Current drinker of alcohol (finding) [facility] Start: 03-30-2021 Alcohol Comment social [facility] Start: 1970 Sex Assigned At Not on file [facility] Start: 01-15-2023 End: 04-27-2024 Tobacco use panel [facility] National Score (1-10 0), lower number is lower risk 53 [facility] Start: 10-03-1990 [facility] Start: 06-14-2024 [facility] Never [facility] tobacco [facility] Start: 06-15-2024 Alcoholic beverage intake Lifetime non-drinker (finding) [facility] Work Phone: Start: 06-04-2024 End: 06-14-2024 Exposure to SARS-CoV-2 (event) Not sure [facility] Start: 10-07-2024 Sex Female (finding) [facility] Medical Equipment Procedure Code Equipment Code Equipment Origin al Text Equipment Identifier Dates Total cholecystectomy with exploration of common bile duct Ligation clip, synthetic polymer, non-bioabsorbable [id number] FDA Start: 05-15-2021 Eldred Thk1.65mm P tfe 4x.5in Cardiovascular Sterile - [id number] Start: 04-14-2024 Band Rodríguez Ancor e 33mm Annuloplasty Chordal Guide - [id number] Start: 04-14-2024 Goals Date Patient Goal Desired Activity /State Personal health goal Personal health goal Mental Status Date Assessment Result Facility 12-24-2022 Cognitive function Voice/Name [facility] Work Phone: 05-01-2022 Cognitive function Voice/Name [facility] Work Phone: 05-01-2022 Cognitive function Patient Orien tation Person;Place;Time [facility] Work Phone: Clinical Notes 01-15-2023 to 01-05-2025 Note Date & Type Note Facility 01-05-2025 Radiology Diagnostic study note [facility] Imaging Services [address] [place], [place] [address] Abdomen/Pelvis WITH Contrast MR#: [id number] Acct: [id number] Name: CAMMIE BHAT Rep #: [id number] : 1970 F 54 From: Mykel Bynum MD PCP: Dr. Nathan Guzman DO Status: REG CLI Study:Abdomen/Pelvis WITH Contrast Date of Ex am: 01/04/25 Exam# [id number] Ordering Dr: Nathan Guzman DO PROCEDURE: ABDOMEN/PELVIS WITH CONTRAST 01/04/2025 REASON FOR EXAM: INFLAMMATORY DIARRHEA TECHNIQUE: Abdomen and pelvis CT with intravenous contrast. Coronal and Sagittal reconstruction series were provided. PATIENT PREPARATION: Per protocol ORAL CONTRAST TYPE: Patient ingested oral contrast. CONTRAST: Isovue-350 VOLUME: 100 mL One or more dose reduction techniques were used (e.g., Automated exposure control, adjustment of the mA and/or kV according to patient size, use of iterative reconstruction technique. RADIATION DOSE SUMMARY: CTDlvol: 17.44 mGy DLP: 960 mGycm COMPARISON: CT scan on 04/19/2022. FINDINGS: Mild diffuse thickening of the sigmoid colon. Underdistention, spasm versus mild colitis. Prior cholecystectomy. Mild hepatic steatosis. Small sliding hiatal hernia. Diffuse thickening of the stomach, probably gastritis. Prior hysterectomy. Mild diffuse spondylosis. Chronic Schmorl's node formation in the superior endplate of L2. The visualized lung bases are unremarkable. Normal liver. Normal extrahepatic biliary system. Normal spleen. Normal pancreas. Normal bilateral adrenal glands. Normal size of the right kidney. There is no right renal mass. There are no right renal calculi. There is no right hydronephrosis. Normal visualized right ureter. Normal size of the left kidney. There is no left renal mass. There are no leftrenal calculi. There is no left hydronephrosis. Normal visualized left ureter. Normal small intestine. The appendix is not visualized. There is no demonstrated peritoneal fluid. Normal abdominal aorta. Normal inferior vena cava. Normal retroperitoneum. Normal urinary bladder. There is no pelvic mass lesion or lymphadenopathy. There is no pelvic fluid. Normal abdominal wall. CT/Abdomen/Pelvis WITH Contrast IMPRESSION: Mild diffuse thickening of the sigmoid colon. Underdistention, spasm versus mildcolitis. Prior cholecystectomy. Mild hepatic steatosis. Small sliding hiatal hernia. Diffuse thickening of the stomach, probably gastritis. Prior hysterectomy. Mild diffuse spondylosis. Chronic Schmorl's node formation in the superior endplate of L2. Reading Location: [place] [address] CC: Dr. Nathan Guzman DO ~ Chief Juvenile Probation Officer: Signed [facility] 01-02-2025 Discharge summary [facility] 01-02-2025 Discharge summary Note Date/Time January 02, 2025 5:08pm [facility] Medical Records Department [address] [place] [address] Emergency Department Summary 01/02/25 MR#: [id number] Acct: [id number] Name: CAMMIE BHAT Rep #:[id number] : 1970 54 From: Florin Bowles MD PCP: Dr. Nathan Guzman DO Status:REG ER Location: ED HPI HPI - GI History of Present Illness Chief Complaint: Nausea/Vomiting/Diarrhea Informant: patient and spouse/S.O. Narrative Narrative: 54-year-old female has been having GI symptoms for months. Abdominal cramping periumbilical/infraumbilical, bloating, nausea with some occasional vomiting, diarrhea with mucus and tenesmus. No hematochezia. No melena. No hematemesis. No fevers or chills. She states symptoms have been worse in the past couple weeks, especially overnight, she vomited some last night. Very bloated. More diarrhea. No new symptoms but she has an outpatient CT scheduled for Friday, today is Friday, and she is concerned that something worse may be going on. Sheis scheduled to see GI but they wanted to see the results of her scheduled outpatient CT before they see her. Nitrating Acid Mixer is not at this hospital or town. States she just had some recent outpatient stool tests including a positive lactoferrin, a negative enteric bacterial panel, and a negative C. difficile which she showed me and are in our system. [facility] Medical History SVT (supraventricular tachycardia) Mitral regurgitation Mitral valve [...] drugs Migraines History of suicide attempt Depression Home Medications ?Medication ?Instructions ?Recorded ?Last Taken ?Type rizatriptan 10 mg tablet (Maxalt) 10 mg PO PRN PRN [facility] 02/09/21 Unknown History guselkumab 100 mg/mL subcutaneous 100 mg subcut Q8W Unknown History auto-injector (Tremfya) topiramate 25 mg tablet 75 mg PO QHS 04/07/23 Unknow n History desvenlafaxine succinate 25 mg 25 mg PO QHS 10/09/23 U nknown History tablet,extended release 24 hr desvenlafaxine succinate 50 mg 50 mg PO QDAY 10/09/23 Unknown History tablet,extended release 24 hr celecoxib 200 mg capsule 200 mg PO DAILY PRN mild yayo n 11/20/23 Unknown History pantoprazole 40 mg tablet,delayed 40 mg PO QDAY Unknown History release losartan 100 mg tablet 100 mg PO QDAY #90 tabs 05/28 11/18 Unknown Rx amlodipine 5 mg tablet 5 mg PO QDAY #30 tabs Unknown Rx clindamycin HCl 300 mg capsule 600 mg (2 x 300 mg) PO .COMPLEX #2 11/02/24 Unknown Rx caps metoprolol tartrate 100 mg tablet 100 mg PO BID #60 ta bs 11/08/24 Unknown Rx ezetimibe 10 mg tablet (Zetia) 10 mg PO DAILY #90 tabs 11/29/24 Unknown Rx hyoscyamine sulfate 0.125 mg 0.25 mg (2 x 0.125 mg) PO Q6H PRN 01/02/25 Unknown Rx tablet (Levsin) abdominal discomfort #20 tab s metoclopramide HCl 10 mg tablet 10 mg PO Q8H PRN n/v # 12 tabs 01/02/25 Unknown Rx Allergy/AdvReac Type Severity Reaction Status Date / Time ixekizumab Allergy Intermediate Swelling Verified 01/02/25 15:14 hydrocodone (From Vicodin) Allergy Nausea Verified 01/02/25 15:14 Penicillins (PCN) Allergy Hives Verified 01/02/25 15:14 hyoscyamine AdvReac Intermediate emesis Verified 01/02/25 15:14 Family History Sister Hypertension Mother Thyroid disorder MVP (mitral valve prolapse) SVT (supraventricular tachycardia) Father Hypertension Hyperlipidemia Cancer Prostate Surgical History Hx of mitral valve repair (04/14/24) History of cholecystectomy (~03/2021) History of esophagogastroduodenoscopy (EGD) Hx of colonoscopy Hx of tubal ligation Hx of rotator cuff surgery Hx of foot surgery Hx of tonsillectomy History of hysterectomy 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 Smoking Status: Former smoker quit date: 11/27/11 alcohol intake: current alcohol intake frequency: holidays/special occasions only substance use type: does not use caffeine: Yes (2 cups daily) ROS ROS ED Constitutional Constitutional ED: Denies chills or fever(s) Eyes Eyes: Denies change in vision or diplopia ENT ENT ED: Denies rhinorrhea or sore throat Cardiovascular Cardiovascular: Denies chest pain or palpitations Respiratory/Chest Respiratory/Chest: Denies cough or dyspnea Gastrointestinal Gastrointestinal: Reports as per HPI, abdominal pain, bloating, diarrhea, nausea and vomiting; Denies hematemesis, hematochezia, hemorrhoids, melena or rectal bleeding Genitourinary Genitourinary ED: Denies dysuria or hematuria Musculoskeletal Musculoskeletal: Denies back pain or neck pain Integumentary Denies abscess or rash Neurologic Neurologic: Denies headache(s), paresthesias or weakness Psychiatric Psychiatric: Denies anxiety or suicidal thoughts EXAM Physical Exam Const Vital Signs: 01/02/25 15:11 01/02/25 16:13 Temperature 98.3 F 98.0 F Temperature Source Oral Oral Pulse Rate 64 60 Respiratory Rate 16 16 Blood Pressure 153/113 H 133/94 H Blood Pressure Mean 126 107 Pulse Ox 98 99 Oxygen Delivery Method Room Air Room Air Positive well nourished and well developed General Appearance ED: well developed and NAD HEENT Reports moist mucous membranes normocephalic and atraumatic Eyes PERRL and EOMs intact bilaterally Neck full ROM and supple Resp normal respiratory effort and clear to auscultation bilaterally Cardio regular rate, regular rhythm and no murmurs Rate: Negative for tachycardic GI non-tender and non-distended Auscultation: normoactive bowel sounds Palpation: soft Back/Spine no CVA tenderness General Back: other FROM Extremity normal to inspection General Extremety ED: Negative for edema, pulses abnormal or tenderness General Extremity: Negative for edema or pulses abnormal Neuro oriented x3, CN's II-XII intact bilaterally and no sensory deficits noted Sensorium / Orientation: awake and alert Motor Exam: strength 5/5 throughout Skin no rashes or lesions noted and no wounds MDM MDM MDM Narrative Medical decision making narrative: Patient is a very benign abdomen. At 1 point yesterday the pain was more on the right side and the patient stated that no it was diffuse, and they thought maybe she was getting appendicitis on top of what ever else this was. I reassured him I do not think that is the case. She has a very benign abdomen renowned is nontender. She sounds like she has a functional GI problem, it is possible it could be inflammatory or some type of colitis, inflammatory bowel disease, etc. Celiac and leaky gut syndrome are also in the differential. Given all this I think reasonable to give her fluids, medications for symptoms, obtain some labs but I do not think she needs an emergent CT right now and I think she can follow-up and have her outpatient CT and GI follow-up. Those labs were reviewed and very unremarkable including liver enzymes and her white blood count which is 4.4 with no left shift. After IV fluids, Reglan, Levsin, Toradol, she is feeling much better. I do not think she needs her CT emergently based on this data. She is comfortable getting it as scheduled in 2 days, and following up as scheduled. She is already on a PPI. Will prescribe her Reglan and Levsin to use as needed. History & Record Review Additional record(s) reviewed:: Prior labs (Negative stool study see HPI) Lab Data Attestation: I reviewed the patient's lab results. Labs: Laboratory Results - last 24 hr 01/02/25 15:45 WBC 4.4 RBC 3.98 L Hgb 13.2 Hct 37.4 MCV 94.0 MCH 33.2 H MCHC 35.3 RDW Std Deviation 43.4 RDW Coeff of Ernesto 12.6 Plt Count 232 MPV 9.0 Immature Gran % (Auto) 0.200 Neut % (Auto) 46.5 L Lymph % (Auto) 36.9 [place] % (Auto) 10.3 H Eos % (Auto) 5.0 Baso % (Auto) 1.1 H Absolute Neuts (auto) 2.0 Absolute Lymphs (auto) 1.61 Nucleated RBC % 0 Sodium 139 Potassium 3.4 Chloride 106 Carbon Dioxide 20.6 L Anion Gap 13 BUN 11 Creatinine 0.79 Estim Creat Clear Calc 93.50 Est GFR (MDRD) Non-Af 88 BUN/Creatinine Ratio 14.0 Glucose 88 Calcium 9.1 Total Bilirubin 0.60 AST 26 ALT 23 Alkaline Phosphatase 78 Total Protein 7.3 Albumin 4.0 Globulin 3.4 Albumin/Globulin Ratio 1.2 Lipase 27 Discharge Plan Triage Chief Complaint: Nausea/Vomiting/Diarrhea ED Provider: Florin Bowles Dx/Rx/DC Orders Clinical Impression: Abdominal bloating with cramps, Chronic diarrhea, Tenesmus Instructions: ED Understanding Colitis Prescriptions: New metoclopramide HCl 10 mg tablet 10 mg PO Q8H PRN (Reason: n/v) Qty: 12 0RF hyoscyamine sulfate [Levsin] 0.125 mg tablet 0.25 mg PO Q6H PRN (Reason: abdominal discomfort) Qty: 20 0RF No Action rizatriptan [Maxalt] 10 mg tablet 10 mg PO PRN PRN (Reason: MIGRAINES) topiramate 25 mg tablet 75 mg PO QHS Patient Comments: take 3 tablets by mouth at bedtime Tremfya 100 mg/mL auto-injector 100 mg subcut Q8W desvenlafaxine succinate 50 mg tablet extended release 24 hr 50 mg PO QDAY Rx Instructions: Take with 25 mg tablet to = 75 mg qHS pantoprazole 40 mg tablet,delayed release (DR/EC) 40 mg PO QDAY desvenlafaxine succinate 25 mg tablet extended release 24 hr 25 mg PO QHS Rx Instructions: Take with 50 mg tablet to = 75 mg qHS celecoxib 200 mg capsule 200 mg PO DAILY PRN (Reason: mild pain) losartan 100 mg tablet 100 mg PO QDAY Qty: 90 3RF amlodipine 5 mg tablet 5 mg PO QDAY Qty: 30 11RF clindamycin HCl 300 mg capsule 600 mg PO .COMPLEX Qty: 2 4RF Rx Instructions: 600 mg orally 1 hour prior to dental appointment for premed; metoprolol tartrate 100 mg tablet 100 mg PO BID Qty: 60 4RF ezetimibe [Zetia] 10 mg tablet 10 mg PO DAILY Qty: 90 3RF Primary Care Provider: Nathan Guzman Referrals: Nathan Guzman DO [Primary Care Provider] - 3-5 Days if not improving Print Language: Faroese Disposition Disposition: Home, Self Care What to do if you have Problems For any increased pain, shortness of breath, bleeding, nausea or vomiting, chestpain, or any unexpected problems, contact your Primary Care Provider. Call [facility] ([phone]) or report to the closest Emergency Room. Call 911 if necessary. 01/02/25 1708 <Electronically signed by Florin Bowles MD> Cosigner Signature (if applicable): CC: Dr. Nathan Guzman, ~ Signed [facility] Work Phone: 1(484) 381-113803-28-2025 [facility] History of Present illness Narrative* Asia Sam RN - 10/22/2024 1:45 PM EDT QOL Call Tracking Documentation Follow-Up Type: Phone Call Call Attempt: 1st Attempt Call Status: Left Message [facility]* Diagnosis Onset Date Resolution Status Admit Date Essential hypertension chronic Fe bruary 2024 10:33am Mitral regurgitation chronic Febr uary 2024 10:33am Mitral valve prolapse chronic Feb ruary 2024 10:33am Psoriatic arthritis chronic Febru ya 2024 10:33am Pure hypercholesterolemia, unspecified chronic September 23, 025 10:33am S/P mitral valve repair chronic F ebruary 2024 10:33am SVT (supraventricular tachycardia) chronic September 23, 025 10:33am [facility] Work Phone: 1(859) 294-403411-18-2024 History of Present illness Narrative* Rudy Coker DO - 06/14/2024 1:40 PM EST Follow-up [...] she was started on Enbrel by her resource efficiency manager. 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 Service: ? Author Type: ? Type: Progress Notes Filed: 05/28/2024 10:48 Note Text: QOL Call Tracking Documentation Follow-Up Type: Phone Call Call Attempt: 1st Attempt Call Status: Left MessageJoint [facility]11-01-2024 History of Present illness Narrative* Rose Benitez - 05/28/2024 10:48 AM EDT QOL Call Tracking Documentation Follow-Up Type: Phone Call Call Attempt: 1st Attempt Call Status: Left Message documented in this encounterA[facility] Telephone encounter Note * Telephone Encounter - Demetrice Gilbert - 05/17/2024 12:38 PM EDT From: Elizabeth Greenwood Marc Sent: Tuesday, May 14, 2024 5:12 AM To: Cammie Bhat ; Demetrice Gilbert Subject: Re: [EXT] Post-surgical question Please ask your doctor at home. Or we can see you in [place]. [employer] [place] [employer] From: Cammie Bhat Sent: Tuesday, May 14, 2024 5:17 AM To: Elizabeth Greenwood Marc Subject: Re: [EXT] Post-surgical question I m better just have pain, can I get something for the pain now? I have 6 cuts not 4. Sent from my iPhone On May 11, 2024, at 5:55?AM, Elizabeth Greenwood Marc wrote: ?Best to ask your local doctor bladder tier for such a prescription as I cannot provide one. Igor Greenwood MD Professor and Chair, Department of Thoracic & Cardiovascular Surgery The Elle Gupta Chair in Heart Valve Research Chair, [employer]-supported [facility] [place] [address] Email: From: Cammie Bhat Sent: Saturday, May 11, [...] Gupta Chair in Heart Valve Research Chair, [facility]-supported Cardiothoracic [place] [address] Email: [email or web address] From: Cammie Bhat Sent: Thursday, May 09, [...] Gupta Chair in Heart Valve Research Chair, [facility]-supported Cardiothor[facility] [place] [address] Email: [email or web address] [facility]10-21-2024 Miscellaneous Notes* Telephone Encounter - Demetrice Gilbert - 05/17/2024 12:38 PM EDT From: Elizabeth Greenwood Marc < > Sent: Tuesday, May 14, 2024 5:12 AM To: Cammie Bhat <[email or web address]>; Demetrice Gilbert < > Subject: Re: [EXT] Post-surgical question Please ask your doctor at home. Or we can see you in [place]. [employer] [place] [employer] From: Cammie Bhat [email or web address]> Sent: Tuesday, May 14, 2024 5:17 AM To: Elizabeth Greenwood Marc < > Subject: Re: [EXT] Post-surgical question I m better just have pain, can I get something for the pain now? I have 6 cuts not 4. Sent from my iPhone On May 11, 2024, at 5:55?AM, Elizabeth Greenwood Marc < > wrote: ?Best to ask your local doctor bladder tier for such a prescription as I cannot provide one. Igor Greenwood MD Professor and Chair, Department of Thoracic & Cardiovascular Surgery The Elle Gupta Chair in Heart Valve Research Chair, [employer]-supported [facility] [place] [address] Email: From: Cammie Bhat <[email or web address]> Sent: Saturday, May 11, 2024 1:11 AM To: Elizabeth Greenwood Marc < > Subject: Re: [EXT] Post-surgical question I honestly think if I could just have another week or 2 worth of the pain meds that I d be ok. The pain is making me nuts! Sent from my iPhone On May 09, 2024, at 7:15?Timo HERNANDEZ M.D., Marc < > wrote: ? I would [...] Gupta Chair in Heart Valve Research Chair, [facility]-supported Cardiothoracic [place] [address] Email: From: Cammie Bhat <[email or web address]> Sent: Thursday, May 09, 2024 5:36 AM To: Elizabeth Greenwood, Igor < > Subject: Re: [EXT] Post-surgical question [...] May 07, 2024, at 1:45?PM, Cammie Bhat <[email or web address]> wrote: ?Thank you so much! I will let you know?? Sent from my iPhone On May 07, 2024, at 1:42?PM, Elizabeth Greenwood Marc < > wrote: ? Can restart them now. Let me know if pain persists--have other options. Igor Greenwood MD Professor and Chair, Department of Thoracic & Cardiovascular Surgery The Elle Gupta Chair in Heart Valve Research Chair, [facility]-supported Cardiothoracic [place] [address] Email: documented in this encounterAdena Pike Medical Center10-14-2024 Telephone encounter Note * Telephone Encounter - [...] Gupta Chair in Heart Valve Research Chair, [facility]-supported [place] [address] Email: [email or web address] From: Cammie Bhat Sent: Thursday, May 09, [...] Gupta Chair in Heart Valve Research Chair, [facility]-supported [place] [address] Email: From: Cammie Bhat Sent: Tuesday, May 07, 2024 1:38 PM To: Elizabeth Greenwood Marc Subject: [EXT] Post-surgical question Hi Dr. [...] metoprololbut I go back to my local bladder tier the end of the month. Thank you so much for your time. Cammie Bhat Sent from my iPhone [facility]10-14-2024 Miscellaneous Notes* Telephone Encounter - Demetrice Gilbert - 05/10/2024 7:56 AM EDT From: Elizabeth Greenwood Marc < > Sent: Thursday, May 09, 2024 7:15 AM To: Cammie Bhat <[email or web address]> Cc: Demetrice Gilbert < > Subject: Re: [...] Research Chair, [facility]-supported Cardiothoracic Surgical [place] [address] Email: From: Cammie Bhat <[email or web address]> Sent: Thursday, May 09, 2024 5:36 AM [...] May 07, 2024, at 1:45?PM, Cammie Bhat <[email or web address]> wrote: ?Thank you so much! I will let you know?? Sent from my iPhone On May 07, 2024, at 1:42?PM, Elizabeth Greenwood Marc < > wrote: ? Can restart them now. Let me know if pain persists--have other options. Igor Greenwood MD Professor and Chair, Department of Thoracic & Cardiovascular Surgery The Elle Gupta Chair in Heart Valve Research Chair, [facility]-supported Cardiothoracic [place] [address] Email: From: Cammie Bhat <[email or web address]> Sent: Tuesday, May 07, 2024 1:38 PM To: Elizabeth Greenwood Marc < > Subject: [EXT] Post-surgical question Hi Dr. Greenwood, [...] metoprololbut I go back to my local bladder tier the end of the month. Thank you so much for your time. Cammie Bhat Sent from my iPhone documented in this encounterAdena Pike Medical Center10-04-2024 Telephone encounter Note * Telephone Encounter - Lisa Shah RN - 04/30/2024 12:01 PM EDT Images from the original note were not included. [facility] Phone Encounter DATE of SERVICE: 04/30/2024 TIME of SERVICE: 12:01 PM Status: non urgent needs attention Service/Provider: Cardiac Surgery Igor Greenwood M.D. Reason for call: Headache Contact information: [phone] Resolution: Sent to [place] Comments: Pt calling [facility] line. Last seen [...] on topic. Pt can be reached at [phone]. If anything changes/worsens pt will be seen in ER for prompt attention. Lisa Shah RN Date of Resolution: 04/30/2024 Time of Resolution 12:01 PM [facility]10-04-2024 Miscellaneous Notes* Telephone Encounter - Lisa Shah RN - 04/30/2024 12:01 PM EDT Images from the original note were not included. [facility] Phone Encounter DATE of SERVICE: 04/30/2024 TIME of SERVICE: 12:01 PM Status: non urgent needs attention Service/Provider: Cardiac Surgery Igor Greenwood M.D. Reason for call: Headache Contact information: [phone] Resolution: Sent to [employer] Comments: Pt calling [facility] line. Last seen [...] on topic. Pt can be reached at [phone]. If anything changes/worsens pt will be seen in ER for prompt attention. Lisa Shah RN Date of Resolution: 04/30/2024 Time of Resolution 12:01 PM documented in this encounterAdena Pike Medical Center10-02-2024 Telephone encounter Note * Telephone Encounter - Salena Hoffman RN - 04/28/2024 11:29 AM EDT Images from the original note were not included. [facility] Phone Encounter DATE of SERVICE: 04/28/2024 TIME of SERVICE: 11:30 AM Status: FYI Service/Provider: Cardiac Surgery Igor Greenwood M.D. Reason for call: FYI Contact information: Cammie Bhat [phone] Resolution: Other Comments: Cammie Bhat called the [facility] post-discharge line to ask that we fax her order for an EKG and echo to fax #[phone] Adam. Salena Hoffman RN Date of Resolution: 04/28/2024 Time of Resolution 11:30 AM [facility]10-02-2024 Miscellaneous Notes* Telephone Encounter - Salena Hoffman RN - 04/28/2024 11:29 AM EDT Images from the original note were not included. [facility] Phone Encounter DATE of SERVICE: 04/28/2024 TIME of SERVICE: 11:30 AM Status: FYI Service/Provider: Cardiac Surgery Igor Greenwood M.D. Reason for call: FYI Contact information: Cammie Bhat [phone] Resolution: Other Comments: Cammie Bhat called the [facility] post-discharge line to ask that we fax her order for an EKG and echo to Dr. العراقي #[phone] Adam. Salena Hoffman RN Date of Resolution: 04/28/2024 Time of Resolution 11:30 AM documented in this encounterAdena Pike Medical Center10-01-2024 History of Present illness Narrative* Sam Lerma APRN.AIRCRAFT MAINTENANCE ENGINEER - 04/27/2024 3:00 PM EDT Images from the original note were not included. [facility] [place] [facility] Department of Cardiovascular Medicine DEPARTMENT [...] 2024 SINUS TACHYCARDIA Vent. rate 104 BPM MD interval 142 ms QRS duration 78 ms [...] repeat CXR in 2-4 weeks at local [facility] satellite. Summary: Follow up with PCP next week Follow up with bladder tier in 4-6 weeks. Call CTS OPD with [...] pleural effusion Discussed wound care Sam Lerma APRN.CNP documented in this encounterAdena Pike Medical Center10-01-2024 NoteJoint [facility]10-[facility] History of Present illness Narrative* Yanna Kwon [...] PATIENT PRESENTS WITH AN IMPLANTABLE OR ATTACHED COSTUMING SUPERVISOR: No RADIOLOGY DEPARTMENT: General X-ray: Exam(s) Completed: Chest X-Ray PERIPHERAL IV DATA: Not applicable SIGNED BY: RT Elena(R) April 27, 2024 2:26 PM documented in this encounterAdena Pike Medical Center10-01-2024 NoteJoint [facility]09-26-2024 Telephone encounter Note* Telephone Encounter - Jaqui Acuña APRN.CNP - 04/22/2024 9:51 AM EDT [facility] April 22, 2024 Physician: Dr.Gillinov Bonds is calling because she is having a lot of pain. Cammie is using Biofreeze cream, Lidocaine patches; tylenol Recommend: Take Tylenol 1000mg, Ibuprofen 800mg every 8 hrs. Ice packs. Jaqui Acuña APRN.CNP [facility] Work Phone: [phone]) 594-418909-26-2024 Miscellaneous Notes* Telephone Encounter - Jaqui Acuña APRN.CNP - 04/22/2024 9:51 AM EDT [facility] April 22, 2024 Physician: Dr.Gillinov Bonds is calling because she is having a lot of pain. Cammie is using Biofreeze cream, Lidocaine patches; tylenol Recommend: Take Tylenol 1000mg, Ibuprofen 800mg every 8 hrs. Ice packs. Jaqui Acuña APRN.CNP documented in this encounterAdena Pike Medical Center09-25-2024 Telephone encounter Note * Telephone Encounter - Reyna Salcedo APRN.CNP - 04/21/2024 12:58 PM EDT Images from the original note were not included. [facility] Phone Encounter DATE of SERVICE: 04/21/2024 TIME of SERVICE: 12:58 PM Status: Non-urgent, needs attention Service/Provider: Cardiac Surgery Igor Greenwood M.D. Reason for call: Excerpt from Resource RN: Comments: Pt called with complaints of ongoing pain 8/10 in side, neck, incisional. Pt taking oxycodone/ tylenol every few hours alternating, has tried lidocaine patches. Pt would appreciate advice. [facility] pharmacy on file is correct if needed. Thank you Celina Santiago RN Date of Resolution: 04/21/2024 Time of Resolution 12:30 PM Resolution: [facility]- normal coronaries Crea- 0.70 (04/18) Given Ketorolac IV post op. Instructed to add Ibuprofen 400mg q 6 hours in between Oxycodone and monitor response. Pt will see CTS OPD EMPLOYEE BENEFITS COORDINATOR on 04/27. Reyna Salcedo APRN.CNP Date of Resolution: 04/21/2024 Time of Resolution 12:58 PM [facility] Work Phone: [phone]) 549-853609-25-2024 Miscellaneous Notes* Telephone Encounter - Reyna Salcedo APRN.AIRCRAFT MAINTENANCE ENGINEER - 04/21/2024 12:58 PM EDT Images from the original note were not included. [facility] Phone Encounter DATE of SERVICE: 04/21/2024 TIME of SERVICE: 12:58 PM Status: Non-urgent, needs attention Service/Provider: Cardiac Surgery Igor Greenwood M.D. Reason for call: Excerpt from Resource RN: Comments: Pt called with complaints of ongoing pain 8/10 in side, neck, incisional. Pt taking oxycodone/ tylenol every few hours alternating, has tried lidocaine patches. Pt would appreciate advice. [facility] on file is correct if needed. Thank you Celina Santiago RN Date of Resolution: 04/21/2024 Time of Resolution 12:30 PM Resolution: C- normal coronaries Crea- 0.70 (04/18) Given Ketorolac IV post op. Instructed to add Ibuprofen 400mg q 6 hours in between Oxycodone and monitor response. Pt will see CTS OPD EMPLOYEE BENEFITS COORDINATOR on 04/27. Reyna Salcedo APRN.MELLO Date of Resolution: 04/21/2024 Time of Resolution 12:58 PM documented in this encounterAdena Pike Medical Center09-25-2024 Telephone encounter Note * Telephone Encounter - Celina Santiago RN - 04/21/2024 12:30 PM EDT Images from the original note were not included. [facility] Phone Encounter DATE of SERVICE: 04/21/2024 TIME of SERVICE: 12:30 PM Status: Non-urgent, needs attention Service/Provider: Cardiac Surgery Igor Greenwood M.D. Reason for call: Pain Contact information: [phone] Resolution: Sent to [facility] Comments: Pt called with complaints of ongoing pain 8/10 in side, neck, incisional. Pt taking oxycodone/ tylenol every few hours alternating, has tried lidocaine patches. Pt would appreciate advice. [facility] pharmacy on file is correct if needed. Thank you Celina Santiago RN Date of Resolution: 04/21/2024 Time of Resolution 12:30 PM [facility]09-25-2024 Miscellaneous Notes* Telephone Encounter - Celina Santiago RN - 04/21/2024 12:30 PM EDT Images from the original note were not included. [facility] Phone Encounter DATE of SERVICE: 04/21/2024 TIME of SERVICE: 12:30 PM Status: Non-urgent, needs attention Service/Provider: Cardiac Surgery Igor Greenwood M.D. Reason for call: Pain Contact information: [phone] Resolution: Sent to [facility] Comments: Pt called with complaints of ongoing pain 8/10 in side, neck, incisional. Pt taking oxycodone/ tylenol every few hours alternating, has tried lidocaine patches. Pt would appreciate advice. [facility] pharmacy on file is correct if needed. Thank you Celina Santiago RN Date of Resolution: 04/21/2024 Time of Resolution 12:30 PM documented in this encounterAdena Pike Medical Center09-23-2024 Telephone encounter Note * Telephone Encounter - Josephine Ferrari RN - 04/19/2024 11:33 AM EDT Record ? ? PatientLastName Jose ? PatientFirstName Cammie ? DischargeDate 04/18/2024 ? Hospital[facility] ? Home_Phone ? CellPhone ? Birth_Date 1970 [...] here ? Reporting Status -- ? Attachments [facility]09-23-2024 Miscellaneous Notes* Telephone Encounter - Josephine Ferrari RN - 04/19/2024 11:33 AM EDT Record ? ? PatientLastName Jose ? PatientFirstName Cammie ? DischargeDate 04/18/2024 ? HospitalName [facility] ? Home_Phone ? CellPhone ? Birth_Date 1970 [...] Status -- ? Attachments documented in this encounterAdena Pike Medical Center09-22-2024 [facility]09-22-2024 [facility]09-22-2024 NoteHNO ID: [id number] Author: NOTE, INTERFACE, ? Service: ? Author Type: ? Type: Progress Notes Filed: 04/18/2024 02:30 Note Text: Epic Scheduled Downtime: 04/18/2024 to 04/18/2024 2:22:34 [facility]09-21-2024 [facility]09-21-2024 NoteHNO ID: [id number] Author: NOTE, INTERFACE, ? Service: ? Author Type: ? Type: Progress Notes Filed: 04/17/2024 03:30 Note Text: Epic Scheduled Downtime: 04/17/2024 1:00:00 AM to 04/17/2024 3:20:00 [facility]09-20-2024 [facility]Joint [facility]09-19-2024 Note [facility]09-19-2024 NoteJoint [facility]09-18-2024 NoteJoint [facility]09-18-2024 NoteJoint [facility] 04-14-2024 NoteJoint [facility]09-18-2024 NoteJoint [facility]09-18-2024 NoteJoint [facility]09-18-2024 NoteJoint [facility]09-17-2024 NoteJoint [facility]09-17-2024 History of Present illness Narrative* Nnamdi Greenwood MD - 04/13/2024 3:48 PM EDT Images from the original note were not included. [facility] [place] DEPARTMENT OF CARDIAC SURGERY OUTPATIENT VISIT DATE April 13, 2024 OUTPATIENT VISIT SERVICE DATE: 04/13/2024 SERVICE TIME: 3:54 PM PCP: [facility] Guzman [address] [facility] [place] [address] Referring Physician: SELF Patient Type: New Visit to Determine Surgery: Yes HPI: Ms. Cammie Bhat is a 53 year old female seen regarding candidacy for cardiac surgery. She is currently asymptomatic Comorbidities include history of smoking. Last CT Result Conclusion CTA CHEST/ABD/PEL (GATED) W IVCON Exam End: 04/12/2024 10:31 AM (Final result) Impression: IMPRESSION: Mildly dilated aortic root 4.3x4.2 cm measured [id number] . Tricuspid aortic valve Chief Juvenile Probation Officer: CHERYL Transcribe Date/Time: Apr 12 2024 11:17A [...] IJ (stiff guidewire). DeTACH clamp. Multidose antegrade [facility] cardi[facility]. WALTER. Amicar Based on my evaluation [...] record Nnamdi Greenwood MD documented in this encounterAdena Pike Medical Center09-17-2024 NoteJoint [facility]09-17-2024 History of Present illness Narrative* Darien Sheets [...] and morning of surgery. documented in this encounterAdena Pike Medical Center09-17-2024 NoteJoint [facility]09-17-2024 History of Present illness Narrative* Lila Ceron [...] AM Impression IMPRESSION: No acute radiographic abnormality. Chief Juvenile Probation Officer: PSCB Transcribe Date/Time: Apr 12 2024 2:24P [...] and consent discussed: yes. Patient / Responsible Constitution Party agrees to proceed: yes Patient / [...] 11:52 AM Pager/Contact #: documented in this encounterAdena Pike Medical Center09-17-2024 NoteJoint [facility]09-17-2024 History of Present illness Narrative* Darien Sheets RN - 04/13/2024 11:11 AM EDT CHART COPY-DO NOT DISCARD CARDIOVASCULAR SURGERY PRE-OPERATIVE ASSESSMENT NAME: Cammie Bhta Alert Notes: N/A DATE: 04/13/2024 SEX: female [...] HEENT: Denies Complaints DERM: Denies Dermatological Complaints COMMUNITY SERVICES OFFICER: Denies Neurological Complaints RESP: Denies Respiratory Complaints [...] Mildly dilated aortic root 4.3x4.2 cm measured [id number] . Tricuspid aortic valve Chief Juvenile Probation Officer: [facility] Transcribe Date/Time: Apr 12 2024 11:17A Dictated by : CHERYL SOLANO MD This examination was interpreted and the report reviewed and electronically signed by: CHERYL SOLANO MD on Apr 12 2024 11:40AM EST MRI: N/A CXR: XR CHEST 2V FRONTAL/LAT Result Date: 04/12/2024 IMPRESSION: No acute radiographic abnormality. Chief Juvenile Probation Officer: [facility] Transcribe Date/Time: Apr 12 2024 2:24P Dictated [...] and Physical dated 04/12/24 documented in this encounterAdena Pike Medical Center09-16-2024 History of Present illness Narrative* Dorota Del [...] PATIENT PRESENTS WITH AN IMPLANTABLE OR ATTACHED COSTUMING SUPERVISOR: No RADIOLOGY DEPARTMENT: CT; Exam(s) Completed: Cardiac PERIPHERAL IV DATA: Site assessment: Clean,Dry and Intact, Site disposition Discontinued SIGNED BY: RT Charlei(R) April 12, 2024 10:21 AM documented in this encounterAdena Pike Medical Center09-16-2024 NoteJoint [facility]09-16-2024 NoteJoint [facility]09-16-2024 History of Present illness Narrative* Yanna Kwon [...] PATIENT PRESENTS WITH AN IMPLANTABLE OR ATTACHED COSTUMING SUPERVISOR: No RADIOLOGY DEPARTMENT: General X-ray: Exam(s) Completed: Chest X-Ray PERIPHERAL IV DATA: Not applicable SIGNED BY: RT Elena(R) April 12, 2024 9:20 AM documented in this encounterAdena Pike Medical Center09-16-2024 NoteJoint [facility]09-16-2024 History of Present illness Narrative* Jeyson Hoff MD - 04/12/2024 7:45 AM EDT Images from the original note were not included. [facility] [place] [facility] Department of Cardiovascular Medicine SECTION OF CLINICAL CARDIOLOGY OUTPATIENT VISIT DATE April 12, 2024 OUTPATIENT VISIT TYPE NEW PRIMARY CARE PHYSICIAN: Nathan Guzman [address] [place] [id number] REFERRING PHYSICIAN: Nnamdi Greenwood [address] [place], [place] [id number] CHIEF COMPLAINT: MR eval HISTORY OF PRESENT ILLNESS: Patient is a 53-year-old female with a history of severe mitral valve regurgitation and supraventricular tachycardia (SVT) presenting for preoperative evaluation. She is scheduled for mitral valve repair in two days. The mitral valve regurgitation was discovered during an echocardiogram performed in preparation carlos ablation procedure to address her SVT. She has experienced palpitations and a fluttering sensation for the past three to four years. Her bladder tier, Dr. Lima, recommended ablation due to the [...] Plan: Mitral valve repair [facility] 02/16/2024 OS TTE 01/12/2024 I have personally reviewed the [...] meet with Dr. Greenwood for surgical opinion. LHC revealed no indication for concomitant coronary bypass. Explained post-op protocols and recommendations for follow up and serial imaging. She will follow up locally but I am happy to see her at any point if needed.All questions answered. I personally interviewed, confirmed and edited the above information as obtained by others. CONTACT INFORMATION: Jeyson Hoff MD, [facility] Section of Clinical Cardiology [facility] [place] Department of Cardiovascular Medicine [facility] [place] [facility] Desk [address] [place] [address] Office - [phone] extension [phone] Office Appointments: [phone] extension [phone] Voice recognition software was used in the creation of this document. There may be unintended errors in spelling, grammar, syntax or punctuation present. documented in this encounterAdena Pike Medical Center09-16-2024 NoteJoint [facility]08-14-2024 Telephone encounter Note* Telephone Encounter - Yanna Pedraza RN - 03/10/2024 9:30 AM EDT OPD .16, Timo held 9.17 @ 1230, VAS 04.14.2024 MVR (2) Discussed with Cammie the details regarding surgery scheduled with Dr. Greenwood on 04.14. Dental Clearance Form completed- Scanned Docs Tab in [facility] 02.27.2024. Provided instructions for the last dose [...] n/a Valve/TAVR/TEVAR/Myectomy/ascending aorta Dental clearance/Dental Consult at [facility] Completed Form- 02.27.2024 CABG surgery with [...] and general knowledge given to pt n/a [facility]08-14-2024 Miscellaneous Notes* Telephone Encounter - Yanna Pedraza RN - 03/10/2024 9:30 AM EDT OPD .16, Timo held 04.13 @ 1230, [facility] 04.14.2024 MVR (2) Discussed with Cammie the details regarding surgery scheduled with Dr. Greenwood on 04.14. Dental Clearance Form completed- Scanned Docs Tab in [employer] 02.27.2024. Provided instructions for the last dose [...] n/a Valve/TAVR/TEVAR/Myectomy/ascending aorta Dental clearance/Dental Consult at [facility] Completed Form- 8. 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 To NPM * Telephone Encounter - Sonia Sifuentes - 03/09/2024 12:56 PM EDT Patient was referred to Dr. Greenwood for MVR. Received records, awaiting imaging from [facility] [place]. documented in this encounterAdena Pike Medical Center08-14-2024 Telephone encounter Note * Telephone Encounter - Yanna Pedraza RN - 03/10/2024 9:01 AM EDT Left voicemail to discuss the recommendations from [facility]. [facility]08-13-2024 Telephone encounter Note* Telephone Encounter - Juan Mcclure - 03/09/2024 3:56 PM EDT INN [facility]08-13-2024 Miscellaneous Notes* Telephone Encounter - Juan Mcclure - 03/09/2024 3:56 PM EDT INN * Telephone Encounter - Sonia Sifuentes - 03/09/2024 2:18 PM EDT Please verify insurance. 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 To NPM [facility] Work Phone: 1(682) 445-427308-13-2024 Telephone encounter Note* Telephone Encounter - Sonia Sifuentes - 03/09/2024 2:18 PM EDT Please verify insurance. Thank you [facility] Work Phone: 1(590) 562-701208-13-2024 Telephone encounter Note* Telephone Encounter - Sonia Sifuentes - 03/09/2024 12:56 PM EDT Patient was referred to Dr. Greenwood for MVR. Received records, awaiting imaging from [facility] [place]. [facility]08-12-2024 NoteHNO ID: [id number] Author: DARIEN CHANDLER MD Service: Cardiovascular Surgery [...] the wrist with 1% lidocaine. A pre-flushed 6-Turkish sheath was inserted into the right radial [...] March 08, 2024 TIME: 9:38 [facility]08-12-2024 NoteHNO ID: [id number] Author: FARHANA NAVAS RN Service: ? Author Type: Registered Nurse Type: Nursing Progress Note Filed: 03/08/2024 07:58 Note Text: [id number] patinet admitted to POD, pre procedure teaching at bedside, review of medications with patient.[facility]08-02-2024 Telephone encounter Note* Telephone Encounter - Kendall Vicente MA - 02/27/2024 2:21 PM EDT Phoned pt regarding future appts [facility] 03/10/24 10am PFT & 11am CT Chest no prep required. Received dental clearance from Dr. Terry Manzano office phone [phone] form scanned into documents on 02/27/24 Also let pt know I will call back with surgery date options once I receive cardiac anesthesia availability for March 2024. Pt requesting late March [address] Mitchell. [facility]08-02-2024 Miscellaneous Notes* Telephone Encounter - Kendall Vicente MA - 02/27/2024 2:21 PM EDT [facility] pt [facility] [facility] 03[facility]10[facility]24 10am PFT & 11am CT Chest no prep required. Received dental clearance from Dr. Terry Manzano office phone [phone] form scanned into documents on 02/27/24 Also let pt know I will call back with surgery date options once I receive cardiac anesthesia availability for March 2024. Pt requesting late March [address] Mitchell. [facility] in [facility] encounterA[facility] Note* Addendum Note - Dio Mary RN - 02/25/2024 11:31 AM EDTAddended by: DIO MARY on: 02/25/2024 11:31 AM Modules accepted: Orders [facility]07-31-[facility] Miscellaneous Notes* Addendum Note - Dio Mary [...] Silverman - 02/25/2024 11:23 AM EDT Reschedule [facility] on 03/08/[address] Chandler * Telephone Encounter - Dio Mary RN - 02/25/2024 11:02 AM EDT Spoke with pt. She will be out of town 02/27 - 03/05. She reports any day week of 03/08/24 should work. Dio Mary RN * Telephone Encounter - Dio Mary RN - 02/25/2024 10:58 AM EDT Left message on [employer] requesting pt return call for heart cath date and instructions. Office phone number provided. Dio Mary RN * Telephone Encounter - Sophie Silverman - 02/25/2024 10:20 AM EDT Schedule C on 03/02/[address] Franklin documented in this encounterA[facility]24 Telephone encounter Note * Telephone Encounter - Dio Mary RN - 02/25/2024 11:29 AM EDT Spoke with pt. Pt agreeable to cath 03/08/24. Instructions sent through My Chart per pt request. Dio Mary RN [facility]07-31-[facility]24 Telephone encounter Note* Telephone Encounter - Sophie Silverman - 02/25/2024 11:23 AM EDT Reschedule C on 03/08/[address] Chandler [facility]07-31-2024 Telephone encounter Note* Telephone Encounter - Dio Mary RN - 02/25/2024 11:02 AM EDT Spoke with pt. She will be out of town 02/27 - 03/05. She reports any day week of 03/08/24 should work. Dio Mary RN [facility]07-31-2024 Telephone encounter Note* Telephone Encounter - Dio Mary RN - 02/25/2024 10:58 AM EDT Left message on [employer] requesting pt return call for heart cath date and instructions. Office phone number provided. Dio Mary RN [facility]07-31-[facility]24 Telephone encounter Note* Telephone Encounter - Sophie Silverman - 02/25/2024 10:20 AM EDT Schedule C on 03/02/[address] Franklin [facility]07-30-2024 NoteHNO ID: [id number] Author: MAULIK MITCHELL MD Service: ? Author [...] no other cardiac history such as CHF, MS, angina. No history of other vascular disease [...] and is breathing (more content not included)... [facility]07-30-2024 History of Present illness Narrative* Maulik Mitchell [...] no other cardiac history such as CHF, MS, angina. No history of other vascular disease [...] 2024 TIME: 3:29 PM PAGER/CONTACT #: [phone] * Betty Jack APRN.AIRCRAFT MAINTENANCE ENGINEER - 02/24/2024 2:00 PM EDT STS for [...] WBC Count: 6.9 10 /?L, Platelet Count: 768847 cells/?L Substance Abuse: Former smoker Risk Factors / Comorbidities: Hypertension Cardiac Status: Ejection Fraction = 65% Coronary Artery Disease: No coronary symptoms Valve Disease: Severe MR, Mild TR documented in this encounterAdena [facility]07-30-2024 Instructions* Patient Instructions* Betty Jack APRN.CNP - [...] call us if you have any concerns/questions: [phone] Betty Jack APRN.CNP Cardiothoracic surgery EMPLOYEE BENEFITS COORDINATOR documented in this encounterAdena Pike [facility] Center07-30-2024 NoteHNO ID: [id number] Author: BETTY JACK APRN.CNP Service: ? Author [...] 41.2%, WBC Count: 6.9 10?/?L, Platelet Count: 229958 cells/?L Substance Abuse: Former smoker Risk Factors / Comorbidities: Hypertension Cardiac Status: Ejection Fraction = 65% Coronary Artery Disease: No coronary symptoms Valve Disease: Severe MR, Mild [facility]07-30-2024 Nurse Note* Alma Ramos LPN - 02/24/2024 1:54 PM EDT CARDIAC REHAB 5 METER WALK TEST SERVICE DATE: 02/24/2024 SERVICE TIME: 1:46PM 4.77secf 4.28sec 4.25sec ASSESSMENT: SIGNATURE: Alma Ramos LPN PATIENT NAME: Cammie Bhat DATE: February 24, 2024 TIME: 1:54 PM PAGER/CONTACT #: [phone] [facility]07-30-[facility] Nurse Note* Alma Ramos LPN - 02/24/2024 1:54 PM EDT CARDIAC REHAB 5 METER WALK TEST SERVICE DATE: 02/24/2024 SERVICE TIME: 1:46PM 4.77secf 4.28sec 4.25sec ASSESSMENT: SIGNATURE: Alma JOSE LUIS RamosN PATIENT NAME: Cammie Bhat DATE: February 24, 2024 TIME: 1:54 PM PAGER/CONTACT #: [phone] documented in this encounterAdena [facility] Center07-26-2024 Telephone encounter Note * Telephone Encounter - Dio Mary RN - 02/20/2024 8:52 AM EDT Images from the original note were not included. Naomy Thomas MD You; Gisselle Ruffin; Francisco Savage RN15 hours ago (5:03 PM) I agree that she should cancel ablation. I am assuming Dr. Dietz will be referring her to a valve specialist? [facility] Miscellaneous Notes* Telephone Encounter - Dio Mary [...] WALTER this morning with Dr Dietz at [facility]. She reports Dr Dietz advised her to cancel ablation and have her mitral valve fixed. I phoned [facility]. Atilio is agreeable to fax WALTER report to [phone]. Dio Mary RN documented in this encounterAdena [facility]ike [facility] Center07-24-2024 Telephone encounter Note * Telephone Encounter - Obdulio Peoples - 02/18/2024 2:15 PM EDT LVM to schedule with Dr Mitchell New Patient Referral from Jeyson Galvan EMPLOYEE BENEFITS COORDINATOR, EMPLOYEE BENEFITS COORDINATOR-C [phone] for Nonrheumatic Mitral Valve Insufficiency, Nonrheumatic Mitral Valve Prolapse with EXTERNAL [facility] ECHO 01/12/2024 [facility]07-[facility] Miscellaneous Notes* Telephone Encounter - Obdulio Peoples - 02/18/2024 2:15 PM EDT LVM to schedule with Dr Mitchell New Patient Referral from Jeyson Galvan NP, EMPLOYEE BENEFITS COORDINATOR-C [phone] for Nonrheumatic Mitral Valve Insufficiency, Nonrheumatic Mitral Valve Prolapse with EXTERNAL [facility] ECHO 01/12/2024 documented in this encounterAdena [facility] Center07-22-2024 Telephone encounter Note * Telephone Encounter - Dio Mary RN - 02/16/2024 2:57 PM EDT WALTER report to Dr Thomas's POB door box. Dio Mary RN [facility]07-22-2024 Telephone encounter Note* Telephone Encounter - Dio Mary RN - 02/16/2024 1:37 PM EDT Pt calls to report she had her WALTER this morning with Dr Dietz at [facility]. She reports Dr Dietz advised her to cancel ablation and have her mitral valve fixed. I phoned [facility]. Atilio is agreeable to fax WALTER report to [phone]. Dio Mary RN [facility]06-[facility] Telephone encounter Note* Telephone Encounter - Naomy Thomas MD - 01/23/2024 5:22 PM EDT The echocardiogram performed at [facility] revealed moderate to severe mitral valve regurgitation from mitral valve prolapse. She needs to discuss this finding with Dr. Samuels or whatever general bladder tier she sees. She might need additional testing and possibly surgery for this valve. She is scheduled for SVT catheter ablation on 02/19/2024. However, I would not recommend that she undergo a catheter ablation procedure for SVT under such conditions until this is figured out. Gisselle please cancel her ablation procedure. Naomy Thomas MD January 23, 2024 5:23 PM [facility]24 Miscellaneous Notes* Telephone Encounter - Naomy Thomas MD - 01/23/2024 5:22 PM EDT The echocardiogram performed at [facility] revealed moderate to severe mitral valve regurgitation from mitral valve prolapse. She needs to discuss this finding with Dr. Samuels or whatever general bladder tier she sees. She might need additional testing [...] advise. Kwabena Gustafson LPN documented in this encounterAdena Pike Medical Center06-28-2024 Telephone encounter Note * Telephone Encounter - Kwabena Gustafson LPN - 01/23/2024 1:02 PM EDT Pt called in requesting ECO results. Please review and advise. Kwabena Gustafson LPN [facility]06-14-2024 History of Present illness Narrative* Troy Byrd APRN.AIRCRAFT MAINTENANCE ENGINEER - 01/09/2024 3:00 PM EDT [facility] General Cardiology Electrophysiology PRIMARY CARE PHYSICIAN: Nathan Guzman [address] [place] [address] [place] [address] CHIEF COMPLAINT: History and physical update prior to SVT ablation with Dr. Thomas on 01/28/2024. HISTORY OF PRESENT ILLNESS copied from Dr. Thomas's prior office note on 01/15/2023: Ms. Bhat is a 52 year old female who presents today for evaluation of arrhythmia, accompanied by her . She is referred by Dr Samuels of [facility]. She states that about a [...] for this episode she presented to the [facility], this was 12/24/2022. She states her [...] most. Patient follows with Dr. Samuels of [facility]. Patient has been taking Lopressor [...] stay in [facility], risk/benefits, holding Lopressor for 1week prior to [...] bradycardia with a ventricular rate of 58. MD 162. QRS 84. QT/QTc 408/400. TTE 12/03/2022 [...] to show up on 01/27.. Troy Byrd APRN.AIRCRAFT MAINTENANCE ENGINEER documented in this encounterAdena Pike Medical Center06-14-2024 NoteHNO ID: [id number] Author: TROY BYRD APRN.MELLO Service: ? Author Type: Nurse Practitioner Type: Progress Notes Filed: 01/09/2024 15:36 Note Text: [facility] [place] [facility] Cardiology Electrophysiology PRIMARY CARE PHYSICIAN: Nathan Guzman [address] [place] [id number] CHIEF COMPLAINT: History and physical update prior to SVT ablation with Dr. Thomas on 01/28/2024. HISTORY OF PRESENT ILLNESS copied from Dr. Thomas's prior office note on 01/15/2023: Ms. Bhat is a 52 year old female who presents today for evaluation of arrhythmia, accompanied by her . She is referred by Dr Samuels of [facility]. She states that about a [...] for this episode she presented to the [facility] ED, this was 12/24/2022. She states her [...] most. Patient follows with Dr. Samuels of [facility]. Patient has been taking Lopressor [...] included procedure overview, MAC, overnight stay in [facility], risk/benefits, holding Lopressor for 1 week prior [...] SVT, had ablation Thyro (more content not included)...[facility]06-14-2024 Nurse Note* Kaleigh Hope MA - 01/09/2024 2:52 PM EDT Patient denies any cardiac issues or symptoms. [facility]06[facility] Nurse Note* Kaleigh Hope MA - 01/09/2024 2:52 PM EDT Patient denies any cardiac issues or symptoms. documented in this encounterAdena Pike [facility] Center05-30-2024 Telephone encounter Note * Telephone Encounter - Dio Mary RN - 12/25/2023 2:04 PM EDT Spoke with pt. She is agreeable to procedure 01/07/24 and H&P visit 01/09/24. She voices understanding to the instructions, holding metoprolol for 7 days prior and location of H&P visit. Dio Mary RN [facility]05-30-2024 Miscellaneous Notes* Telephone Encounter - Dio Mary [...] before the procedure. You will need a route salesman and driver when released from the hospital and you will stay overnight for observation. You should continue to take medications as prescribed the morning of the procedure with just a sip of water but stop metoprolol one week prior to the procedure. H&P update on 01/08 at 3pm with Troy Byrd [address] [facility] [address] [place] [address] Left message for Cammie Bhat to call back and confirm date & instructions Gisselle Ruffin documented in this encounterAdena Pike Medical Center05-30-2024 Telephone encounter Note * Telephone Encounter - Gisselle Ruffin - 12/25/2023 11:33 AM EDT Patient is scheduled for an SVT Ablation on 01/[address] Thomas. The hospital will call the day before between 2-5pm with your arrival time. You should not eat or drink after midnight the day before the procedure. You will need a route salesman and driver when released from the hospital and you will stay overnight for observation. You should continue to take medications as prescribed the morning of the procedure with just a sip of water but stop metoprolol one week prior to the procedure. H&P update on 01/08 at 3pm with Troy Byrd [address] [facility] [address] [place] [address] Left message for Cammie Bhat to call back and confirm date & instructions Gisselle Ruffin [facility]11-30-2023 Miscellaneous Notes* Telephone Encounter - Naomy Thomas MD - 06/26/2023 9:07 PM EST [facility] General Electrophysiology (EP) Procedure request submitted. [...] on the next steps. documented in this encounterAdena Pike Medical Center08-18-2023 Miscellaneous Notes* Telephone Encounter - Agnieszka Maruqez LPN - 03/14/2023 2:37 PM EDT called in requesting update on date for ablation. She would like called at [phone] with update. Agnieszka Marquez LPN documented in this encounterAdena Pike [facility] Center06-21-2023 History of Present illness Narrative* Naomy Thomas MD - 01/15/2023 11:20 AM EDT PRIMARY CARE PHYSICIAN: Shilpa Rosales [address] [facility] [address] [place] [address] REFERRING PHYSICIAN: Malika Samuels [address] [facility] [address] [facility] [address] Patient Care Team: Nathan Guzman DO as PCP - General (Family Medicine) Malika Samuels MD as Specialty Ambulette Driver (Cardiology) CHIEF COMPLAINT: Evaluation of arrhythmia HISTORY OF PRESENT ILLNESS: Ms. Bhat is a 52 year old female who presents today for evaluation of arrhythmia, accompanied by her . She is referred by Dr Samuels of [facility]. She states that about a [...] for this episode she presented to the [facility] ED, this was 12/24/2022. She states her [...] Sinus bradycardia 50 bpm; normal conduction intervals (MD 162 ms, QRS 84 ms); QTc 400 ms; no obvious WPW patterns I have personally reviewed the Electrocardiogram. EKG 12/24/2022 [facility] ED: SVT 166 bpm (narrow complex tachycardia), no obvious P waves although possible atrial activity at terminal portion of QRS or early ST segment ASSESSMENT/PLAN: 1. Supraventricular tachycardia (HCC) - ICD9: 427.89, ICD10: I47.1 (primary diagnosis) 2. Intermittent palpitations - ICD9: 785.1, ICD10: R00.2 IMPRESSION: Ms. Bhat has a diagnosis of symptomatic SVT, documented by EKG 12/24/2022 in the [facility] ED. The SVT by EKG appears to [...] evidence byEKG for manifest accessory pathway AKA [id number]-[id number] or WPW pattern. I did have a [...] Level: 4 - Moderate documented in this encounterAdena Pike Medical Center06-21-2023 Nurse Note* Stephie Rajput MA - 01/15/2023 11:19 AM EDT No cardiac concerns today documented in this encounterAdena Pike Medical CenterEvaluation note* Diagnosis Onset Date Resolution Status Patellofemoral syndrome, right acute Right knee pain acute Diarrhea acute [facility] Work Phone: Evaluation note* Diagnosis Onset Date Resolution Status Diarrhea acute [facility] Work Phone: Evaluation note* Diagnosis Onset Date Resolution Status Diarrhea acute Diarrhea acute [facility] Work Phone: Evaluation note* Diagnosis Onset Date Resolution Status Diarrhea acute Diarrhea acute Left knee pain noneactive Degenerative arthritis of left knee noneactive [facility] Work Phone: Evaluation note* Diagnosis Onset Date Resolution Status Diarrhea acute Diarrhea acute Left knee pain noneactive Degenerative arthritis of left knee noneactive Left knee pain noneactive Degenerative arthritis of left knee noneactive [facility] Work Phone: Evaluation note* Diagnosis Onset Date Resolution Status Diarrhea acute Left knee pain noneactive Degenerative arthritis of left knee noneactive Left knee pain noneactive Degenerative arthritis of left knee noneactive [facility] Work Phone: Evaluation note* Diagnosis Onset Date Resolution Status Diarrhea acute Left knee pain noneactive Degenerative arthritis of left knee noneactive Left knee pain noneactive Degenerative arthritis of left knee noneactive Diarrhea acute [facility] Work Phone: Evaluation note* Diagnosis Onset Date Resolution Status Diarrhea acute Essential hypertension acute Cardiac murmur chronic Intermittent palpitations ch ronic Preoperative cardiovascular examination chronic Pure hypercholesterolemia, unspecified chronic [facility] Work Phone: Evaluation note* Diagnosis Onset Date Resolution Status Essential hypertension acute Cardiac murmur chronic Intermittent palpitations ch ronic Preoperative cardiovascular examination chronic Pure hypercholesterolemia, unspecified chronic [facility] Work Phone: Evaluation note* Diagnosis Onset Date Resolution Status Cardiac murmur chronic Essential hypertension chron ic Intermittent palpitations ch ronic Pure hypercholesterolemia, unspecified chronic Essential hypertension chron ic Mitral regurgitation chronic Mitral valve prolapse chroni c Pure hypercholesterolemia, unspecified chronic SVT (supraventricular tachycardia) [facility] Work Phone: [phone] note* Diagnosis Supraventricular tachycardia (HCC)- Primary Other specified cardiac dysrhythmias Intermittent palpitations [facility]* Diagnosis Onset Date Resolution Status Essential hypertension chron ic Mitral regurgitation chronic Mitral valve prolapse chroni c Pure hypercholesterolemia, unspecified chronic SVT (supraventricular tachycardia) chronic [facility] Work Phone: Evaluation note* Diagnosis Supraventricular tachycardia- Primary Other specified cardiac dysrhythmias documented in this encounter [facility] note* Diagnosis Supraventricular tachycardia (HCC)- Primary Other specified cardiac dysrhythmias Supraventricular tachycardia (HCC)- Primary Other specified cardiac dysrhythmias Intermittent palpitations Heart murmur Undiagnosed cardiac murmurs Nonrheumatic mitral (valve) prolapse Essential (primary) hypertension Unspecified essential hypertension Supraventricular tachycardia (HCC) Other specified cardiac dysrhythmias documented in this encounter [facility] note* Diagnosis Supraventricular tachycardia (HCC)- Primary Other specified cardiac dysrhythmias Nonrheumatic mitral valve regurgitation- Primary [facility] this encounter [facility]* Diagnosis Supraventricular tachycardia (HCC)- Primary Other specified cardiac dysrhythmias Nonrheumatic mitral (valve) insufficiency- Primary Valvular heart disease Endocarditis, valve unspecified, unspecified cause documented [facility] this encounter [facility]* Diagnosis Supraventricular tachycardia (HCC)- Primary Other specified cardiac dysrhythmias 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 Unspecified disorders of arteries and arterioles Pre-operative cardiovascular examination Mitral valve disorder Mitral valve disorders Disorder of artery or arteriole (HCC) Unspecified disorders of arteries and arterioles Pre-operative cardiovascular examination Mitral valve disorder Mitral valve disorders [facility] this [facility]* Diagnosis Supraventricular tachycardia (HCC)- Primary Other specified cardiac dysrhythmias Nonrheumatic mitral valve regurgitation- Primary Disorder of artery or arteriole (HCC) Unspecified disorders of arteries and arterioles Pre-operative cardiovascular examination Mitral valve disorder Mitral valve disorders [facility] this encounter [facility]* Diagnosis Supraventricular tachycardia (HCC)- Primary Other specified cardiac dysrhythmias Pre-op exam- Primary Preoperative examination, unspecified Disorder of artery or arteriole (HCC) Unspecified disorders of arteries and arterioles Pre-operative cardiovascular examination Mitral valve disorder Mitral valve disorders [facility] this [facility]* Diagnosis Supraventricular tachycardia (HCC)- Primary Other specified cardiac dysrhythmias Encounter for preoperative anesthesiology assessment for cardiac surgery- Primary Disorder of artery or arteriole (HCC) Unspecified disorders of arteries and arterioles Pre-operative cardiovascular examination Mitral valve disorder Mitral valve disorders [facility] this encounter [facility]* Diagnosis Supraventricular tachycardia (HCC)- Primary Other specified cardiac dysrhythmias Nonrheumatic mitral valve regurgitation- Primary Disorder of artery or arteriole (HCC) Unspecified disorders of arteries and arterioles Pre-operative cardiovascular examination Mitral valve disorder Mitral valve disorders [facility]* Diagnosis Supraventricular tachycardia (HCC)- Primary Other specified cardiac dysrhythmias Disorder of artery or arteriole (HCC) Unspecified disorders of arteries and arterioles Pre-operative cardiovascular examination Mitral valve disorder Mitral valve disorders [facility] encounter [facility]* Diagnosis Supraventricular tachycardia (HCC)- Primary Other specified cardiac dysrhythmias Disorder of artery or arteriole (HCC) Unspecified disorders of arteries and arterioles Pre-operative cardiovascular examination Mitral valve disorder Mitral valve disorders [facility] this [facility]* Diagnosis Supraventricular tachycardia (HCC)- Primary Other specified cardiac dysrhythmias Surgery follow-up- Primary Follow-up examination, following unspecified surgery documented in this encounter [facility] note* Diagnosis Supraventricular tachycardia (HCC)- Primary Other specified cardiac dysrhythmias Surgery follow-up Follow-up examination, following unspecified surgery [facility]* Diagnosis Supraventricular tachycardia (HCC)- Primary Other specified cardiac dysrhythmias S/P mitral valve repair- Primary Other postprocedural status Pleural effusion Unspecified pleural effusion [facility] this encounter [facility]* Diagnosis Primary osteoarthritis of both hands- Primary Psoriasis Other psoriasis documented in this encounter [facility] Work Phone: Evaluation noteNo assessment information available [facility] Work Phone: History of Present illness [...] she was started on Enbrel by her resource efficiency manager. She was sent to a rig supervisor who switch her to Humira which worked [...] working very well. * no convectional DMARDs -[facility] Work Phone: Hospital Discharge instructions Additional Instructions Please follow-up with your family doctor and discuss need for referral to bladder tier because of your recurrent SVT. Return [facility] the ER should [facility] have any [facility] Work Phone: Hospital Discharge instructions Additional Instructions Please follow-up with your family doctor to discuss further testing such as C. difficile toxin as well as stool culture and potential autoimmune diseases such as celiac sprue if your symptoms persist and return to the ER should you have any further concernsWK[facility] Work Phone: Instructions* Name Dates Details How [...] tion Online using Patient Portal and [employer]rd [employer] Apps Indication:BMI 30.0-30.9,adult Start:26-Mar-2021 Instruction Type:Patient Education Patient Instructions Indication:BMI 30.0-30.9,adult Start:23-Mar-2021 Instruction Type:Provider Instructions for Treatment How to Access Health Informa tion Online using Patient Portal and 3rd [employer] Apps Indication:BMI 30.0-30.9,adult Start:23-Mar-2021 Instruction Type:Patient Education Patient Instructions Indication:Nonsmoker Start:13-Mar-2021 Instruction Type:Provider Instructions for Treatment How to Access Health Informa tion Online using Patient Portal and 3rd [employer] Apps Indication:Nonsmoker Start:13-Mar-2021 Instruction Type:Patient Education [...] tion Online using Patient Portal and 3rd [employer] Apps Indication:BMI 30.0-30.9,adult Start:26-Mar-2021 Instruction Type:Patient Education Patient Instructions Indication:BMI 30.0-30.9,adult Start:23-Mar-2021 Instruction Type:Provider Instructions for Treatment How to Access Health Informa tion Online using Patient Portal and 3rd [employer] Apps Indication:BMI 30.0-30.9,adult Start:23-Mar-2021 Instruction Type:Patient Education Patient Instructions Indication:Nonsmoker Start:13-Mar-2021 Instruction Type:Provider Instructions for Treatment How to Access Health Informa tion Online using Patient Portal and 3rd [employer] Apps Indication:Nonsmoker Start:13-Mar-2021 Instruction Type:Patient Education [...] Authorized Specialty Diagnoses / Procedures Referred By Contac t Referred To Contact CT IMAGING Diagnoses Disorder of artery or arteriole (HCC) Pre-operative cardiovascular examination Mitral valve disorder Procedures CTA CHEST/ABD/PEL (GATED) W IVCON CT ANGIOGRAPHY CHEST W/CONTRAST/NONCONTRAST CT ANGIO ABD&PLVIS CNTRST MTRL W/WO CNTRST Nnamdi Oliver MD [address] [place] [address] Ct Imaging [place] [address] Referral ID Status Reason Start Date Expiration Date Visits Requested Visits Authorized [id number] Authorized Auto-Generat ed Referral 03/22/2024 05/06/2024 2 2 [facility] for referral (narrative)* Outpatient Procedure (Routine) - Authorized Specialty Diagnoses / Procedures Referred By Christyac t Referred [facility] Diagnoses Surgery follow-up Procedures ECG COMPLETE ECG ROUTINE ECG W/LEAST 12 LDS W/I&R Nnamdi Greenwood MD [address] [place] [address] [facility] [place] [address] [place] [address] Referral ID Status Reason Start Date Expiration Date Visits Requested Visits Authorized [id number] Authorized Auto-Generat ed Referral 04/16/2024 04/16/2025 1 1 [facility] for referral (narrative)No reason for referral information availableWKet[facility] Work Phone: Family History Unknown Family Member [...] 10:33am S/P mitral valve repair September 23, 2 025 10:33am SVT (supraventricular tachycardia) Febru ya 2024 10:33am Chief Complaint Admit Date 3 M FU September 23, 2024 10:33am INT LAB ORDER September 23, 2024 10:54am EORDER November 25, 2024 12:37p m Chief Complaint Admit Date 3 M FU September 23, 2024 10:33am INT LAB ORDER September 23, 2024 10:54am EORDER November 25, 2024 12:37p m STOOL December 28, 2024 2:40p m Chief Complaint Admit Date 3 M FU September 23, 2024 10:33am INT LAB ORDER September 23, 2024 10:54am EORDER November 25, 2024 12:37p m STOOL December 28, 2024 2:40p m N/V/D January 02, 2025 3:10p m Chief Complaint Admit Date 3 M FU September 23, 2024 10:33am INT LAB ORDER September 23, 2024 10:54am EORDER November 25, 2024 12:37p m STOOL December 28, 2024 2:40p m N/V/D January 02, 2025 3:10p m INFLAMMATORY DIARRHEA January 04, 2025 3: 49pm Chief Complaint Admit Date EORDER November 25, 2024 12:37p m STOOL December 28, 2024 2:40p m N/V/D January 02, 2025 3:10p m INFLAMMATORY DIARRHEA January 04, 2025 3: 49pm INT LAB ORDERS March 08, 2025 12 :33pm 6 M FU March 08, 2025 1: 07pm Advance Directives Advance Directive Response Recorded Date/ Time Advance Directives No August 4:17am Living Will No May 01 1:22pm Power of Men'S Golf Coach No May 01, 1:22pm Advance Directive Response Recorded Date/ Time Advance Directives No August 4:17am Living Will No April 13, 2022 12:13pm Power of Men'S Golf Coach No March 12:13pm Advance Directive Response Recorded Date/ Time Advance Directives No August 4:17am Living Will No April 29 10:46am Power of Men'S Golf Coach No April 29 10:46am Advance Directive Response Recorded Date/ Time Advance Directives No August 3:17am Living Will No April 29 9:46am Power of Men'S Golf Coach No April 29 9:46am Advance Directive Response Recorded Date/ Time Name of Medical Power of Men'S Golf Coach casey chavis band December 25, 2022 12:17am Advance Directives No August 4:17am Living Will Yes December 25, 2022 1 2:17am Power of Men'S Golf Coach Yes December 25, 2022 12:17am Advance Directive Response Recorded Date/ Time Advance Directives No August 4:17am Living Will Yes December 25, 2022 1 2:17am Power of Men'S Golf Coach Yes December 25, 2022 12:17am Advance Directive Response Recorded Date/ Time Advance Directives No August 4:17am Living Will No November 20, 2023 3:18am Power of Men'S Golf Coach No November 19 3:18am Advance Directive Response Recorded Date/ Time Advance Directives on File No Novem 2023 2:05pm Living Will Yes June 17, 2:22pm Power of Men'S Golf Coach Yes June 17, 2024 2:22pm Living Will No November 20, 2023 3:18am Power of Men'S Golf Coach No November 19 3:18am Advance Directives No August 4:17am Advance Directive Response Recorded Date/ Time Advance Directives No August 4:17am Advance Directive Response Recorded Date/ Time Do you have a Healthcare Power of Men'S Golf Coach? No January 02, 2025 3:50pm Advance Directives No August 4:17am Summary Purpose Chief Complaint follow upfollow up Reason for Referral Specialty Diagnoses / Procedures Referred By Cherelle t Referred To Contact CT IMAGING Diagnoses Nonrheumatic mitral valve regurgitation Procedures CT CHEST WO IVCON DIAGNOSTIC COMPUTED TOMOGRAPHY THORAX W/O CNTRST Betty Jack, WEBLOGIC DEVELOPER.AIRCRAFT MAINTENANCE ENGINEER [address] [place] [address] [place] [address] Referral ID Status Reason Start Date Expiration Date Visits Requested Visits Authorized [id number] New Request Auto-Generat ed Referral 02/24/2024 03/25/2025 1 1 Specialty Diagnoses / Procedures Referred By Contac t Referred To Contact [facility] Diagnoses Nonrheumatic mitral valve regurgitation Procedures LUNG VOLUMES Betty Jack APRN.AIRCRAFT MAINTENANCE ENGINEER 1 [place] [address] Respiratory [facility] [address] [place] [address] Referral ID Status Reason Start Date Expiration Date Visits Requested Visits Authorized [id number] New Request Auto-Generat ed Referral 02/24/2024 03/25/2025 1 1 Specialty Diagnoses / Procedures Referred By Contac t Referred To Contact [facility] Diagnoses Nonrheumatic mitral valve regurgitation Procedures LUNG DIFFUSION CAPACITY (DLCO) DIFFUSING CAPACITY Betty Jack APRN.AIRCRAFT MAINTENANCE ENGINEER [address] [place] [address] [address] [facility] [address] [place], [place] [id number] Referral ID Status Reason Start Date Expiration Date Visits Requested Visits Authorized [id number] New Request Auto-Generat ed Referral 02/24/2024 03/25/2025 1 1 Specialty Diagnoses / Procedures Referred By Contac t Referred To Contact [facility] Diagnoses Nonrheumatic mitral valve regurgitation Procedures SPIROMETRY BASELINE ONLY SPMTRY W/VC EXPIRATORY KARO W/WO MXML VOL VNTJ Betty Jack APRN.AIRCRAFT MAINTENANCE ENGINEER [address] [place] [address] [address] [address] [place], [place] [phone] Referral ID Status Reason Start Date Expiration Date Visits Requested Visits Authorized [id number] New Request Auto-Generat ed Referral 02/24/2024 03/25/2025 1 1 Specialty Diagnoses / Procedures Referred By Contac t Referred To Contact CT IMAGING Diagnoses Disorder of artery or arteriole (HCC) Pre-operative cardiovascular examination Mitral valve disorder Procedures CTA CHEST/ABD/PEL (GATED) W IVCON CT ANGIOGRAPHY CHEST W/CONTRAST/NONCONTRAST CT ANGIO ABD&PLVIS CNTRST MTRL W/[place] [address] [place] [address] [address] [address] Imaging [place] [address] Referral ID Status Reason Start Date Expiration Date Visits Requested Visits Authorized [id number] New Request Auto-Generat ed Referral 03/10/2024 04/09/2025 1 1 Specialty Diagnoses / Procedures Referred By Contac t Referred To Contact [facility] [place] Diagnoses Disorder of artery or arteriole (HCC) Pre-operative cardiovascular examination Mitral valve disorder Procedures ECHO ECHO TTHRC R-T 2D W/WOM-MODE COMPL SPEC&COLR D Nnamdi [place] MD [address] [place] [address] [place] [address] Referral ID Status Reason Start Date Expiration Date Visits Requested Visits Authorized [id number] New Request Auto-Generat ed Referral 03/10/2024 03/10/2025 1 1 Specialty Diagnoses / Procedures Referred By Contac t Referred To Contact [facility] [place] Diagnoses Disorder of artery or arteriole (HCC) Pre-operative cardiovascular examination Mitral valve disorder Procedures ECG COMPLETE ECG ROUTINE ECG W/LEAST 12 LDS W/I&R Nnamdi [place] MD [address] [place] [address] [place] [address] Referral ID Status Reason Start Date Expiration Date Visits Requested Visits Authorized [id number] New Request Auto-Generat ed Referral 03/10/2024 03/10/2025 1 1 Specialty Diagnoses / Procedures Referred By Contac t Referred To Contact Cardiac Surg Diagnoses Disorder of artery or arteriole (HCC) Pre-operative cardiovascular examination Mitral valve disorder Procedures CARDIOTHORACIC PREOP EVALUATION OFFICE/OUTPATIENT [facility] 60 MINUTES Nnamdi Green[address] MD [facility] [place] [address] Referral ID Status Reason Start Date Expiration Date Visits Requested Visits Authorized [id number] Authorized PCP Requested Referral 03/10/2024 03/10/2025 1 1 Specialty Diagnoses / Procedures Referred By Contac t Referred To Contact Cardiology Diagnoses Disorder of artery or arteriole (HCC) Pre-operative cardiovascular examination Mitral valve disorder Procedures CONSULT TO CARDIOLOGY OFFICE/OUTPATIENT [facility] 60 MINUTES Nnamdi Greenwood MD [address] [place] [address] Referral ID Status Reason Start Date Expiration Date Visits Requested Visits Authorized [id number] Authorized PCP Requested Referral 03/10/2024 03/10/2025 1 1 Specialty Diagnoses / Procedures Referred By Contac t Referred [facility] Diagnoses Nonrheumatic mitral valve regurgitation Procedures CARDIOVASCULAR MEDICINE OP FOLLOW UP APPT ORDER Jeyson Hoff MD [address] [place] [address] [facility] [place] [address] Referral ID Status Reason Start Date Expiration Date Visits Requested Visits Authorized [id number] Ref Not Required PCP Requested Referral 04/12/2024 [...] Active Member Role Status Dates Shilpa Rosales EMPLOYEE BENEFITS COORDINATOR, EMPLOYEE BENEFITS COORDINATOR-C Family Provider Active Dr. Nathan Guzman , DO Primary Care Provider Active Team Status: Inactive Member Role Status Dates Dr. Nathan Guzman , DO Primary Care Provider, Referrin g Provider Active Dr. Fransisco Brown , DO Attending Provider Active Team Status: Inactive Member Role Status Dates Dr. Nathan Guzman , DO Primary Care Provider, Referrin g Provider Active Mario Fontanez MD Attending Provider Active Team Status: Inactive Member Role Status Dates Dr. Nathan Guzman DO Primary Care Provider, Referrin g Provider Active Dr. Malika Samuels MD Attending Provider Active Team Status: Active Member Role Status Dates Dr. Nathan Guzman DO Primary Care Provider Active Celina Baez Attending Provider Active Team Status: Inactive Member Role Status Dates Dr. Nathan Guzman DO Primary Care Provider, Attendin g Provider [...] PA Attending Provider, Referring Pr ovider Active Manager Php Relationship Specialty Start Date End Date Nathan Guzman DO [address] [place] [address] PCP - General Family Medicine 01/15/23 Malika Samuels MD [address] [place] [address] Specialty Ambulette Driver Cardiology 01/13/23 Manager Php Relationship Specialty Start Date End Date Nathan Guzman DO [address] [place], [place] [id number] PCP - General Family Medicine 01/15/23 Malika Samuels MD Specialty Ambulette Driver Cardiology 01/13/23 Manager Php Relationship Specialty Start Date End Date Nathan Guzman DO [address] [place] [address] PCP - General Family Medicine 01/15/23 Malika Samuels MD Specialty Ambulette Driver Cardiology 01/13/23 Team Status: Inactive Member Role Status Dates Dr. Nathan Guzman DO Primary Care Provider Active NICOLLE NORIEGA Attending Provider, Referring Provider A ctive Manager Php Relationship Specialty Start Date End Date Nathan Guzman DO [address] [place], [place] [id number] PCP - General Family Medicine 01/15/23 Malika Samuels MD Specialty Ambulette Driver Cardiology 01/13/23 Manager Php Relationship Specialty Start Date End Date Nathan Guzman DO [address] [place] [id number] PCP - General Family Medicine 01/15/23 Malika Samuels MD Specialty Ambulette Driver Cardiology 01/13/23 Manager Php Relationship Specialty Start Date End Date Nathan Guzman DO [address] [place], [place] [phone] PCP - General Family Medicine 01/15/23 Malika Samuels MD Specialty Ambulette Driver Cardiology 01/13/23 Manager Php Relationship Specialty Start Date End Date Nathan Guzman DO [address] [place], [place] [address] PCP - General Family Medicine 01/15/23 Malika Samuels MD Specialty Ambulette Driver Cardiology 01/13/23 Manager Php Relationship Specialty Start Date End Date Nathan Guzman DO [address] [address] PCP - General Family Medicine 01/15/23 Malika Samuels MD Specialty Ambulette Driver Cardiology 01/13/23 Naomy Thomas MD [address] [place] [address] Cardiology 02/20/24 Rudy Coker DO [address] [place] [address] Internal Medicine 02/20/24 Manager Php Relationship Specialty Start Date End Date Nathan Guzman DO [address] [place], [place] [phone] PCP - General Family Medicine 01/15/23 Malika Samuels MD Specialty Ambulette Driver Cardiology 01/13/23 Naomy Thomas MD [address] [phone] (Fax) Cardiology 02/20/24 Rudy Coker DO [address] [place] [address] Internal Medicine 02/20/24 Manager Php Relationship Specialty Start Date End Date Nathan Guzman DO [address] [place] [address] PCP - General Family Medicine 01/15/23 Malika Samuels MD Specialty Ambulette Driver Cardiology 01/13/23 Naomy Thomas MD [address] [phone] (Fax) Cardiology 02/20/24 Rudy Coker DO [address] [place], [place] [address] Internal Medicine 02/20/24 Manager Php Relationship Specialty Start Date End Date Nathan Guzman DO [address] [place] [address] PCP - General Family Medicine 01/15/23 Malika Samuels MD Specialty Ambulette Driver Cardiology 01/13/23 Naomy Thomas MD [address] [phone] (Fax) Cardiology 02/20/24 Rudy Coker DO [address] [facility] [address] [place] [address] [place] [address] Internal Medicine 02/20/24 Manager Php Relationship Specialty Start Date End Date Nathan Guzman DO [address] [address] PCP - General Family Medicine 01/15/23 Malika Samuels MD Specialty Ambulette Driver Cardiology 01/13/23 Naomy Thomas MD [address] [phone] Cardiology 02/20/24 Rudy Coker DO [address] [facility] [address] [address] Internal Medicine 02/20/24 Nnamdi [place] MD [address] [place], [place] [phone] Surgeon Cardiac Surg 03/09/24 Manager Php Relationship Specialty Start Date End Date Nathan Guzman DO [address] [address] PCP - General Family Medicine 01/15/23 Malika Samuels MD Specialty Ambulette Driver Cardiology 01/13/23 Naomy Thomas MD [address] [phone] (Fax) Cardiology 02/20/24 Rudy Coker DO [address] [facility] [address] [place] [address] Internal Medicine 02/20/24 Nnamdi [place] MD [address] [place] [address] Surgeon Cardiac Surg 03/09/24 Manager Php Relationship Specialty Start Date End Date Nathan Guzman DO [address] [place] [address] PCP - General Family Medicine 01/15/23 Malika Samuels MD Specialty Ambulette Driver Cardiology 01/13/23 Naomy Thomas MD [address] [address] Cardiology 02/20/24 Rudy Coker DO [address] [phone] Internal Medicine 02/20/24 Nnamdi [place] MD [address] [place] [address] Surgeon Cardiac Surg 03/09/24 Jeyson Hoff MD [address] [place] [address] Primary Staff Physician Cardiology 04/12/24 Manager Php Relationship Specialty Start Date End Date Nathan Guzman DO [address] [place], [place] [address] PCP - General Family Medicine 01/15/23 Malika Samuels MD Specialty Ambulette Driver Cardiology 01/13/23 Naomy Thomas MD [address] [place] [phone] Cardiology 02/20/24 Rudy Coker DO [address] [facility] [address] [address] Internal Medicine 02/20/24 Nanmdi Greenwood MD [address] [place], [place] [address] Surgeon Cardiac Surg 03/09/24 Jeyson Hoff MD [address] [place] [address] Primary Staff Physician Cardiology 04/12/24 Manager Php Relationship Specialty Start Date End Date Nathan Guzman DO [address] [place] [address] PCP - General Family Medicine 01/15/23 Malika Samuels MD Specialty Ambulette Driver Cardiology 01/13/23 Naomy Thomas MD [address] [place] [address] [place] [phone] Cardiology 02/20/24 Rudy Coker DO [address] [facility] [address] [place], [place] [address] Internal Medicine 02/20/24 Nnamdi Greenwood MD [address] [place] [address] Surgeon Cardiac Surg 03/09/24 Jeyson Hoff MD [address] [place] [address] Primary Staff Physician Cardiology 04/12/24 Manager Php Relationship Specialty Start Date End Date Nathan Guzman DO [address] [place] [address] PCP - General Family Medicine 01/15/23 Malika Samuels MD Specialty Ambulette Driver Cardiology 01/13/23 Naomy Thomas MD [address] [facility] [address] [place] [phone] Cardiology 02/20/24 Rudy Coker DO [address] [facility] [address] [place], [place] [address] Internal Medicine 02/20/24 Nnamdi Greenwood MD [address] [place] [address] Surgeon Cardiac Surg 03/09/24 Jeyson Hoff MD [address] [place] [address] Primary Staff Physician Cardiology 04/12/24 Manager Php Relationship Specialty Start Date End Date Nathan Guzman DO [address] [place] [address] [place], [place] [address] PCP - General Family Medicine 01/15/23 Malika Samuels MD Specialty Ambulette Driver Cardiology 01/13/23 Naomy Thomas MD [address] [place] [phone] Cardiology 02/20/24 Rudy Coker DO [address] [place] [address] Internal Medicine 02/20/24 Nnamdi Greenwood MD [address] [place] [address] Surgeon Cardiac Surg 03/09/24 Jeyson Hoff MD [address] [place] [address] Primary Staff Physician Cardiology 04/12/24 Manager Php Relationship Specialty Start Date End Date Nathan Guzman DO [address] [place] [address] PCP - General Family Medicine 01/15/23 Malika Samuels MD Specialty Ambulette Driver Cardiology 01/13/23 Naomy Thomas MD [address] [place] [address] [place] [phone] (Fax) Cardiology 02/20/24 Rudy Coker DO [address] [facility] [address] [place], [place] [phone] Internal Medicine 02/20/24 Nnamdi Greenwood MD [address] [place], [place] [address] Surgeon Cardiac Surg 03/09/24 [place] [address] [place] [address] Primary Staff Physician Cardiology 04/12/24 Manager Php Relationship Specialty [place] [address] [place], [place] [address] [place] [address] PCP - General Family Medicine 01/15/23 Malika Samuels MD Specialty Ambulette Driver Cardiology 01/13/23 Naomy Thomas MD [address] [facility] [address] [place] [phone] Cardiology 02/20/24 Wendy RudyDO [address] [facility] [address] [place], [place] [address] Internal Medicine 02/20/24 Nnamdi Greenwood MD [address] [place] [address] Surgeon Cardiac Surg 03/09/24 Jeyson Hoff MD [address] [place] [address] Primary Staff Physician Cardiology 04/12/24 Manager Php Relationship Specialty Start Date End Date Nathan Guzman DO [address] [place] [address] PCP - General Family Medicine 01/15/23 Malika Samuels MD Specialty Ambulette Driver Cardiology 01/13/23 Naomy Thomas MD [address] [place] [phone] Cardiology 02/20/24 Rudy Coker DO [address] [place] [address] Internal Medicine 02/20/24 Nnamdi Greenwood MD [address] [place] [address] Surgeon Cardiac Surg 03/09/24 Jeyson Hoff MD [address] [place] [address] Primary Staff Physician Cardiology 04/12/24 Manager Php Relationship Specialty Start Date End Date Nathan Guzman DO [address] [place] [address] PCP - General Family Medicine 01/15/23 Malika Samuels MD Specialty Ambulette Driver Cardiology 01/13/23 Naomy Thomas MD [address] [place] [phone] (Fax) Cardiology 02/20/24 Aric CokerechiDO [address] [facility] [address] [place], [place] [phone] Internal Medicine 02/20/24 Nnamdi [place]wood MD [address] [place] [address] Surgeon Cardiac Surg 03/09/24 Jeyson Hoff MD [address] [place] [phone] Primary Staff Physician Cardiology 04/12/24 Manager Php Relationship Specialty Start Date End Date Nathan GuzmanDO [address] [facility] [place] [address] PCP - General Family Medicine 01/15/23 Malika Samuels MD Specialty Ambulette Driver Cardiology 01/13/23 Naomy Thomas MD [address] [facility] [address] [place] [phone] Cardiology 02/20/24 Wendy RudyDO [address] [facility] [address] [place], [place] [address] Internal Medicine 02/20/24 Nnamdi Greenwood MD [address] [place] [address] Surgeon Cardiac Surg 03/09/24 Jeyson Hoff MD [address] [place], [place] [phone] Primary Staff Physician Cardiology 04/12/24 Manager Php Relationship Specialty Start Date End Date MeganNathan DO [address] [place] [place], [place] [address] PCP - General Family Medicine 01/15/23 Malika Samuels MD Specialty Ambulette Driver Cardiology 01/13/23 Naomy Thomas MD [address] [place] [address] Cardiology 02/20/24 Rudy Coker DO [address] [place] [address] Internal Medicine 02/20/24 Nnamdi Greenwood MD [address] [place], [place] [phone] Surgeon Cardiac Surg 03/09/24 Jeyson Hoff MD [address] [place] [phone] Primary Staff Physician Cardiology 04/12/24 Manager Php Relationship Specialty Start Date End Date Nathan Guzman DO [address] [place] [address] PCP - General Family Medicine 01/15/23 Malika Samuels MD Specialty Ambulette Driver Cardiology 01/13/23 Naomy Thomas MD [address] [address] [place] [address] (Fax) Cardiology 02/20/24 Rudy Coker DO [address] [facility] [address] [place], [place] [phone] Internal Medicine 02/20/24 Nnamdi Greenwood MD [address] [place] [address] Surgeon Cardiac Surg 03/09/24 Jeyson Hoff MD [address] [place], [place] [phone] Primary Staff Physician Cardiology 04/12/24 Manager Php Relationship Specialty Start Date [place] [address] [place], [place] [address] [place] [address] PCP - General Family Medicine 01/15/23 Mlaika Samuels MD Specialty Ambulette Driver Cardiology 01/13/23 Naomy Thomas MD [address] [facility] [address] [place] [phone] Cardiology 02/20/24 Rudy Coker DO [address] [facility] [address] [place], [place] [address] Internal Medicine 02/20/24 Nnamdi Greenwood MD [address] [place] [address] Surgeon Cardiac Surg 03/09/24 Jeyson Hoff MD [address] [place], [place] [phone] Primary Staff Physician Cardiology 04/12/24 Manager Php Relationship Specialty Start Date End Date Nathan Guzman DO [address] [place] [address] PCP - General Family Medicine 01/15/23 Malika Samuels MD Specialty Ambulette Driver Cardiology 01/13/23 Naomy Thomas MD [address] [address] [place] [address] Cardiology 02/20/24 Rudy Coker DO [address] [place], [place] [id number] Internal Medicine 02/20/24 Nnamdi Greenwood MD [address] [place], [place] [phone] Surgeon Cardiac Surg 03/09/[address] [facility] [place] [address] Primary Staff Physician Cardiology 04/12/24 Manager Php Relationship Specialty Start Date End Date Nathan Guzman DO PCP - General 01/06/23 Manager Php Relationship Specialty Start Date End Date Nathan Guzman DO [address] [place], [place] [id number] PCP - General Family Medicine 01/15/23 Malika Samuels MD Specialty Ambulette Driver Cardiology 01/13/23 Naomy Tohmas MD [address] [facility] [address] [place] [address] Cardiology 02/20/24 Guanakitokae RudyDO [address] [facility] [address] [place], [place] [address] Internal Medicine 02/20/24 Nnamdi Greenwood MD [address] [place] [address] Surgeon Cardiac Surg 03/09/24 Jeyson Hoff MD [address] [place] [address] Primary Staff Physician Cardiology 04/12/24 Team Status: [...] 2024 End: November 25, 2024 Jeyson Galvan EMPLOYEE BENEFITS COORDINATOR, EMPLOYEE BENEFITS COORDINATOR-C Attending Provider Active S tart: November 25, 2024 End: November 25, 2024 Jeyson Galvan EMPLOYEE BENEFITS COORDINATOR, EMPLOYEE BENEFITS COORDINATOR-C Referring Provider Active S tart: November 25, [...] December 28, 2024 End: December 28, 2024 Team Status: Inactive Member Role Status Dates Dr. Nathan Guzman DO Primary Care Provider Active Start: January 02, 2025 End: January 02, 2025 Dr. Florin Bowles MD Emergency Provider Active Start: January 02, 2025 End: January 02, 2025 Team Status: Inactive Member Role Status Dates Dr. Nathan Guzman DO Primary Care Provider Active Start: January 02, 2025 End: January 02, 2025 Dr. Florin Bowles MD Attending Provider Active Start: January 02, 2025 End: January 02, 2025 Dr. Florin Bowles MD Emergency Provider Active Start: January 02, 2025 End: January 02, 2025 Team Status: Inactive Member Role Status Dates Dr. Nathan Guzman DO Primary Care Provider Active Start: January 04, 2025 End: January 04, 2025 Dr. Nathan Guzman DO Attending Provider Active Start: January 04, 2025 End: January 04, 2025 Dr. Nathan Guzman DO Referring Provider Active Start: January 04, 2025 End: January 04, 2025 Team Status: Active Member Role/Relationship Status Dates Dr. Nathan Guzman DO Primary Care Provider Active Team Status: Inactive Member Role/Relationship Status Dates Dr. Nathan Guzman DO Primary Care Provider Active Start: November 25, 2024 End: November 25, 2024 Jeyson Galvan EMPLOYEE BENEFITS COORDINATOR, EMPLOYEE BENEFITS COORDINATOR-C Attending Provider Active S tart: November 25, 2024 End: November 25, 2024 Jeyson aGlvan EMPLOYEE BENEFITS COORDINATOR, EMPLOYEE BENEFITS COORDINATOR-C Referring Provider Active S tart: November 25, 2024 End: November 25, 2024 Team Status: Inactive Member Role/Relationship Status Dates Dr. Nathan Guzman DO Primary Care Provider Active Start: December 28, 2024 End: December 28, 2024 Dr. Nathan Guzman DO Attending Provider Active Start: December 28, 2024 End: December 28, 2024 Dr. Nathan Guzman DO Referring Provider Active Start: December 28, 2024 End: December 28, 2024 Team Status: Inactive Member Role/Relationship Status Dates Dr. Nathan Guzman DO Primary Care Provider Active Start: January 02, 2025 End: January 02, 2025 Dr. Florin Bowles MD Attending Provider Active Start: January 02, 2025 End: January 02, 2025 Dr. Florin Bowles MD Emergency Provider Active Start: January 02, 2025 End: January 02, 2025 Team Status: Inactive Member Role/Relationship Status Dates Dr. Nathan Guzman DO Primary Care Provider Active Start: January 04, 2025 End: January 04, 2025 Dr. Nathan Guzman DO Attending Provider Active Start: January 04, 2025 End: January 04, 2025 Dr. Nathan Guzman DO Referring Provider Active Start: January 04, 2025 End: January 04, 2025 Team Status: Active Member Role/Relationship Status Dates Dr. Nathan Guzman DO Primary Care Provider Active Start: March 08, 2025 Jeyson Galvan EMPLOYEE BENEFITS COORDINATOR, EMPLOYEE BENEFITS COORDINATOR-C Attending Provider Active S tart: March 08, 2025 Jeyson Galvan EMPLOYEE BENEFITS COORDINATOR, EMPLOYEE BENEFITS COORDINATOR-C Referring Provider Active S tart: March 08, 2025 Team Status: Inactive Member Role/Relationship Status Dates Dr. Nathan Guzman DO Primary Care Provider Active Start: March 08, 2025 End: March 08, 2025 Dr. Nathan Guzman DO Referring Provider Active Start: March 08, 2025 End: March 08, 2025 AGUS Chicas Attending Provider Active St art: March 08, 2025 End: March 08, 2025 INFORMATION SOURCE (unrecogn ized section and content) DATE CREATED AUTHOR 01/17/2023 [facility] [place] DATE CREATED AUTHOR AUTHOR'S ORGANIZ ATION 06/11/2023 [facility] ([place]) DATE CREATED AUTHOR AUTHOR'S ORGANIZ ATION 08/31/2023 [facility] [place] DATE CREATED AUTHOR AUTHOR'S ORGANIZ ATION 04/17/2024 [facility] DATE CREATED AUTHOR AUTHOR'S ORGANIZ ATION 06/16/2024 [facility] DATE CREATED AUTHOR AUTHOR'S ORGANIZ ATION 10/23/2024 [facility] DATE CREATED AUTHOR AUTHOR'S ORGANIZ ATION 01/13/2025 [facility] [place] Source Comments (unrecognize d section and content) In the event this informatio n is protected by the Federal Confidentiality of Alcohol and Drug Abuse Patient Records regulations: The Federal rules restrict any use of the information to criminally investigate or prosecute any alcohol or drug abuse patient.[facility] Center[facility] the event this information is protected by the Federal Confidentiality of Alcohol and Drug Abuse Patient Records regulations: The Federal rules restrict any use of the information to criminally investigate or prosecute any alcohol or drug abuse patient.[facility] Center[facility] the event this information is protected by the Federal Confidentiality of Alcohol and Drug Abuse Patient Records regulations: The Federal rules restrict any use of the information to criminally investigate or prosecute any alcohol or drug abuse patient.[facility] CenterIn the event this information is protected by the Federal Confidentiality of Alcohol and Drug Abuse Patient Records regulations: The Federal rules restrict any use of the information to criminally investigate or prosecute any alcohol or drug abuse patient.[facility] CenterIn the event this information is protected by the Federal Confidentiality of Alcohol and Drug Abuse Patient Records regulations: The Federal rules restrict any use of the information to criminally investigate or prosecute any alcohol or drug abuse patient.[facility] CenterIn the event this information is protected by the Federal Confidentiality of Alcohol and Drug Abuse Patient Records regulations: The Federal rules restrict any use of the information to criminally investigate or prosecute any alcohol or drug abuse patient.[facility] CenterIn the event this information is protected by the Federal Confidentiality of Alcohol and Drug Abuse Patient Records regulations: The Federal rules restrict any use of the information to criminally investigate or prosecute any alcohol or drug abuse patient.[facility] CenterIn the event this information is protected by the Federal Confidentiality of Alcohol and Drug Abuse Patient Records regulations: The Federal rules restrict any use of the information to criminally investigate or prosecute any alcohol or drug abuse patient.[facility] CenterIn the event this information is protected by the Federal Confidentiality of Alcohol and Drug Abuse Patient Records regulations: The Federal rules restrict any use of the information to criminally investigate or prosecute any alcohol or drug abuse patient.[facility] CenterIn the event this information is protected by the Federal Confidentiality of Alcohol and Drug Abuse Patient Records regulations: The Federal rules restrict any use of the information to criminally investigate or prosecute any alcohol or drug abuse patient.[facility] CenterIn the event this information is protected by the Federal Confidentiality of Alcohol and Drug Abuse Patient Records regulations: The Federal rules restrict any use of the information to criminally investigate or prosecute any alcohol or drug abuse patient.[facility] CenterIn the event this information is protected by the Federal Confidentiality of Alcohol and Drug Abuse Patient Records regulations: The Federal rules restrict any use of the information to criminally investigate or prosecute any alcohol or drug abuse patient.[facility] CenterIn the event this information is protected by the Federal Confidentiality of Alcohol and Drug Abuse Patient Records regulations: The Federal rules restrict any use of the information to criminally investigate or prosecute any alcohol or drug abuse patient.[facility] CenterIn the event this information is protected by the Federal Confidentiality of Alcohol and Drug Abuse Patient Records regulations: The Federal rules restrict any use of the information to criminally investigate or prosecute any alcohol or drug abuse patient.[facility] CenterIn the event this information is protected by the Federal Confidentiality of Alcohol and Drug Abuse Patient Records regulations: The Federal rules restrict any use of the information to criminally investigate or prosecute any alcohol or drug abuse patient.[facility] CenterIn the event this information is protected by the Federal Confidentiality of Alcohol and Drug Abuse Patient Records regulations: The Federal rules restrict any use of the information to criminally investigate or prosecute any alcohol or drug abuse patient.[facility] CenterIn the event this information is protected by the Federal Confidentiality of Alcohol and Drug Abuse Patient Records regulations: The Federal rules restrict any use of the information to criminally investigate or prosecute any alcohol or drug abuse patient.[facility] CenterIn the event this information is protected by the Federal Confidentiality of Alcohol and Drug Abuse Patient Records regulations: The Federal rules restrict any use of the information to criminally investigate or prosecute any alcohol or drug abuse patient.[facility] CenterIn the event this information is protected by the Federal Confidentiality of Alcohol and Drug Abuse Patient Records regulations: The Federal rules restrict any use of the information to criminally investigate or prosecute any alcohol or drug abuse patient.[facility] CenterIn the event this information is protected by the Federal Confidentiality of Alcohol and Drug Abuse Patient Records regulations: The Federal rules restrict any use of the information to criminally investigate or prosecute any alcohol or drug abuse patient.[facility] CenterIn the event this information is protected by the Federal Confidentiality of Alcohol and Drug Abuse Patient Records regulations: The Federal rules restrict any use of the information to criminally investigate or prosecute any alcohol or drug abuse patient.[facility] CenterIn the event this information is protected by the Federal Confidentiality of Alcohol and Drug Abuse Patient Records regulations: The Federal rules restrict any use of the information to criminally investigate or prosecute any alcohol or drug abuse patient.[facility] CenterIn the event this information is protected by the Federal Confidentiality of Alcohol and Drug Abuse Patient Records regulations: The Federal rules restrict any use of the information to criminally investigate or prosecute any alcohol or drug abuse patient.[facility] CenterIn the event this information is protected by the Federal Confidentiality of Alcohol and Drug Abuse Patient Records regulations: The Federal rules restrict any use of the information to criminally investigate or prosecute any alcohol or drug abuse patient.[facility] CenterIn the event this information is protected by the Federal Confidentiality of Alcohol and Drug Abuse Patient Records regulations: The Federal rules restrict any use of the information to criminally investigate or prosecute any alcohol or drug abuse patient.[facility] CenterIn the event this information is protected by the Federal Confidentiality of Alcohol and Drug Abuse Patient Records regulations: The Federal rules restrict any use of the information to criminally investigate or prosecute any alcohol or drug abuse patient.[facility] CenterIn the event this information is protected by the Federal Confidentiality of Alcohol and Drug Abuse Patient Records regulations: The Federal rules restrict any use of the information to criminally investigate or prosecute any alcohol or drug abuse patient.[facility] CenterIn the event this information is protected by the Federal Confidentiality of Alcohol and Drug Abuse Patient Records regulations: The Federal rules restrict any use of the information to criminally investigate or prosecute any alcohol or drug abuse patient.[facility] CenterIn the event this information is protected by the Federal Confidentiality of Alcohol and Drug Abuse Patient Records regulations: The Federal rules restrict any use of the information to criminally investigate or prosecute any alcohol or drug abuse patient.[facility] CenterIn the event this information is protected by the Federal Confidentiality of Alcohol and Drug Abuse Patient Records regulations: The Federal rules restrict any use of the information to criminally investigate or prosecute any alcohol or drug abuse patient.[facility] CenterIn the event this information is protected by the Federal Confidentiality of Alcohol and Drug Abuse Patient Records regulations: The Federal rules restrict any use of the information to criminally investigate or prosecute any alcohol or drug abuse patient.[facility] CenterIn the event this information is protected by the Federal Confidentiality of Alcohol and Drug Abuse Patient Records regulations: The Federal rules restrict any use of the information to criminally investigate or prosecute any alcohol or drug abuse patient.[facility] CenterIn the event this information is protected by the Federal Confidentiality of Alcohol and Drug Abuse Patient Records regulations: The Federal rules restrict any use of the information to criminally investigate or prosecute any alcohol or drug abuse patient.[facility] CenterIn the event this information is protected by the Federal Confidentiality of Alcohol and Drug Abuse Patient Records regulations: The Federal rules restrict any use of the information to criminally investigate or prosecute any alcohol or drug abuse patient.[facility] Reason for Visit (unrecogniz ed section and content) Reason Comments New Patient Evaluation SVT Specialty Diagnoses / Procedures Referred By Contac t Referred To Contact Cardiology / CARDIOLOGY Diagnoses Ref from Dr. Lima/SVT possible ablation Spoke to Dr. 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 For Procedures Reason Comments Cardiology Follow Up Follow up for pre o p clearance Reason Comments Results Reason Comments Consult FAXED REFERRAL Reason Comments Patient Update Reason Comments New Patient Consult Referral Jeyson AnaGina cruz NP Reason Comments Future Appointment Dental [...] MINUTES NEW PRE OP Nnamdi Greenwood MD [address] [place] [id number] Jeyson Hoff MD [address] [place] [address] Referral ID Status Reason Start Date Expiration Date Visits Re quested Visits Authorized [id number] Closed 04/12/2024 07/27/2024 1 1 Reason Comments Patient Education Specialty Diagnoses / Procedures Referred By Contact Referred To Contact Anesthesiology / CARDIAC SURGERY Diagnoses Disorder of arteries and arterioles, unspecified Encounter for preprocedural cardiovascular examination Rheumatic mitral valve disease, 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 LYONS Procedures RADIOLOGIC EXAM CHEST 2 VIEWS XR CHEST Nnamdi Greenwood MD [address] [place] [address] [facility] [address] [place] [address] Referral ID Status Reason Start Date Expiration Date Visits Re quested Visits Authorized [id number] Closed 04/12/2024 07/27/2024 [address] Specialty Diagnoses / Procedures Referred By Cherelle t Referred To Contact CT IMAGING Diagnoses Disorder of artery or arteriole (HCC) Pre-operative cardiovascular examination Mitral valve disorder Procedures CTA CHEST/ABD/PEL (GATED) W IVCON CT ANGIOGRAPHY CHEST W/CONTRAST/NONCONTRAST CT ANGIO ABD&PLVIS CNTRST MTRL W/WO CNTRST IMGES Nnamdi Greenwood MD [address] [place] [address] Ct Imaging [place] [address] Referral ID Status Reason Start Date Expiration Date Visits Requested Visits Authorized [id number] Authorized Auto-Generat ed Referral 03/22/2024 05/06/2024 2 2 Reason Comments Follow Up Phone Call All clear Reason Comments Post Dc Program Call - Needs Attn Reason Comments Returning Patient's Call Reason Comments Post Dc Program Call - Fyi Specialty Diagnoses / Procedures Referred By Cherelle t Referred To Contact Radiology / [facility] [place] J Diagnoses Surgery follow-up Surgery follow-up Procedures RADIOLOGIC EXAM CHEST 2 VIEWS XR CHEST Nnamdi Greenwood MD [address] [place] [address] [facility] [address] [place] [id number] Referral ID Status Reason Start Date Expiration Date Visits Re quested Visits Authorized [id number] Closed 04/21/2024 07/27/2024 1 1 Specialty Diagnoses / Procedures Referred By Contac t Referred To Contact Cardiovascular Surgery / CARDIAC SURGERY Diagnoses Hospital discharge follow-up Hospital Discharge J5-01 Procedures OFFICE/OUTPATIENT ESTABLISHED MOD MDM 30 MIN POST OP 1ST VISIT Silvia Ford APRN.AIRCRAFT MAINTENANCE ENGINEER [address] [phone] Sam Lerma, WEBLOGIC DEVELOPER.AIRCRAFT MAINTENANCE ENGINEER [address] [phone] Referral ID Status Reason Start Date Expiration Date Visits Re quested Visits Authorized [id number] Closed 04/21/2024 07/27/2024 1 1 Reason Comments [...] BE BASED ON THE PRIMARY CLINICAL RECORDS. [facility] [facility]. provides no warranty or guarantee of the accuracy or completeness of information in this document.
[2025-03-10 07:07] LABS: QNTFERON TB Mitogen Value > 10.00 IU/mL (.); QNTFERON TB Nil Value 0.05 IU/mL (.); QNTFERON TB1+ Ag Value 0.08 IU/mL (.); QNTFERON TB2+ Ag Value 0.08 IU/mL (.); QNTIFERON TB Positive Criteria Negative (Negative)
== END | disposition home or self-care (01) ==
PROVIDERS: PCP Family Medicine; Referring Provider Nurse Practitioner Family; Visit Provider Nurse Practitioner Family
DX: L40.0 Psoriasis vulgaris (principal)
CPT/HCPCS: 36415; 80061; 80076; 86480

== ENCOUNTER → 2025-07-15 | Outpatient (CLI) | payer OTHER, SELFPAY ==
[2025-07-15 16:50] LABS: Hematocrit 37.4 % (37-47); Hemoglobin 13.4 g/dL (12.0-15.0); Immature Granulocytes Count 0.010 X10^3/uL (0.0-0.0); Mean Corp Hgb Conc 35.8 g/dL (32-36); Mean Corpuscular Volume 98.7 fL (81-99); Mean Platelet Vol. 9.8 fl (6.2-12.0); NRBC Flagged by Analyzer 0 % (0-5); Platelet Count 225 K/mm3 (150-450); RBC Distribution Width CV 12.5 % (11.6-14.6); RBC Distribution Width SD 44.9 fl (35.1-43.9); Red Blood Count 3.79 M/mm3 (4.2-5.4); White Blood Count 5.8 K/mm3 (4.4-11.0)
[2025-07-15 17:31] LABS: AST(SGOT) 24 U/L (<=31); Alanine Aminotransfer ALT/SGPT 20 U/L (<=34); Albumin, Serum 4.2 g/dL (3.5-5.0); Alkaline Phosphatase 65 U/L (35-104); Anion Gap 13 (5-15); BUN 21 mg/dL (4-19); BUN/Creat Ratio 25.9 RATIO (10-20); Bilirubin, Direct 0.20 mg/dL (0.00-0.30); Calcium,Total 9.5 mg/dL (7.6-11.0); Carbon Dioxide 21.6 mmol/L (21.0-32.0); Chloride 103 mmol/L (98-108); Cholesterol 236 mg/dL (<=200); Globulin 3.5 g/dL (2.2-4.2); Glucose 96 mg/dL (70-99); Low Density Lipoprotein Calc. 142 mg/dL; Magnesium 2.0 mg/dL (1.5-2.2); Potassium 4.1 mmol/L (3.3-5.1); Triglycerides 129 mg/dL; Very Low Density Lipoprotein 26 mg/dL (5-40); cholesterol:hdl ratio screen 3.33
== END | disposition home or self-care (01) ==
LOC: LAB 15:34
PROVIDERS: PCP Family Medicine; Referring Provider Physician Assistant Medical; Visit Provider Physician Assistant Medical
DX: R55 Syncope and collapse (principal); R42 Dizziness and giddiness; R00.2 Palpitations; I47.19 Other supraventricular tachycardia; E78.00 Pure hypercholesterolemia, unspecified
CPT/HCPCS: 36415; 80048; 80061; 80076; 83735; 84443; 85025